=== PATIENT | female | born 1995 | race Caucasian/White ===

== ENCOUNTER 2023-05-07 14:18 | Outpatient (OUT) | payer BC, SELFPAY ==
--- NOTE | 2023-05-07 14:40 | US_ITS ---
The [address] [address] Patient Name: BRAULIO CHAKRABORTY MRN: [id number] date: 1995 Sex: F Assigned Patient Location: US Current Patient Location: US Accession/Order Number: [id number] Exam Date: 05/07/2023 14:40 Report Date: 05/07/2023 22:35 At the request of: JACKY FITZPATRICK Procedure: US OB transvaginal EXAMINATION: US OB transvaginal HISTORY: MISSED MENSES COMPARISON: No relevant comparison available. FINDINGS: GESTATIONAL SAC: Present and normal appearing. YOLK SAC: Present and normal appearing. POLE: Present and normal appearing. CARDIAC: Present. UTERUS: Normal size and appearance. OVARIES: Right: Not seen. Left: Normal. CERVIX: 3.7 cm in length and closed. CUL-DE-SAC: Normal. OTHER: None. AGE BY LMP: 8 weeks 0 days MARGARITO BY LMP: 12/17/2023 AGE BY US CRL: 7 weeks 2 days MARGARITO BY US CRL: 12/22/2023 US/US OB transvaginal IMPRESSION: 1. Single live intrauterine . Electronically authenticated by: ORION LAM Date: 05/07/2023 22:35
== END 2023-05-07 14:19 | disposition home or self-care (01) ==
LOC: US 14:18
PROVIDERS: PCP Family Medicine; Visit Provider Obstetrics & Gynecology
DX: Z34.01 Encounter for supervision of normal first pregnancy, first trimester (principal); Z3A.08 8 weeks gestation of pregnancy
CPT/HCPCS: 76817

== ENCOUNTER 2023-05-21 11:39 | Outpatient (OUT) | payer BC, SELFPAY ==
[2023-05-21 12:02] LABS: Basophils Absolute Auto 0.1 10^3/uL (0.0-0.1); Basophils Percent Auto 0.6 % (0.2-2.0); Eosinophils Absolute Auto 0.2 10^3/uL (0.0-0.7); Eosinophils Percent Auto 1.4 % (0.9-7.0); Immature Granulocytes Abs Auto 0.06 10^3/uL (0.00-0.03); Immature Granulocytes Pct Auto 0.4 % (0.0-0.5); Lymphocytes Percent Auto 28.2 % (20.5-60.0); Mean Corpuscular HGB Conc 34.2 g/dL (29.9-35.2); Mean Corpuscular Hemoglobin 30.2 pg (26.7-34.0); Mean Corpuscular Volume 88.4 fL (81.0-99.0); Mean Platelet Volume 8.8 fL (9.5-13.5); Monocytes Absolute Auto 0.7 10^3/uL (0.3-0.8); Monocytes Percent Auto 4.8 % (1.7-12.0); Neutrophils Absolute Auto 9.2 10^3/uL (1.4-6.5); Neutrophils Percent Auto 64.6 % (43.0-75.0); Platelet Count 439 10^3/uL (150-450); Red Cell Distribution Width 12.3 % (11.0-15.0); White Blood Count 14.2 10^3/uL (4.0-11.0)
[2023-05-21 12:24] LABS: Estimated Average Glucose 111 mg/dL; Glycohemoglobin A1C 5.5 % (4.5-6.2)
[2023-05-21 12:43] LABS: Thyroid Stimulating Hormone 4.123 uIU/mL (0.358-3.740)
[2023-05-22 05:07] LABS: HCV Ab Non Reactive (Non Reactive); HIV Ab/p24 Ag Screen Non Reactive (Non Reactive); Rubella Antibodies, IgG 2.21 index (Immune >0.99)
[2023-05-22 06:09] LABS: HBsAg Screen Negative (Negative)
[2023-05-22 11:09] LABS: Rapid Plasma Reagin, Quant Non Reactive titer (NonRea<1:1)
== END 2023-05-21 11:40 | disposition home or self-care (01) ==
LOC: LAB 11:41
PROVIDERS: PCP Family Medicine; Visit Provider Obstetrics & Gynecology
DX: Z34.81 Encounter for supervision of other normal pregnancy, first trimester (principal); N92.6 Irregular menstruation, unspecified
CPT/HCPCS: 36415; 83036; 84443; 85025; 86592; 86762; 86803; 86850; 86900; 86901; 87086; 87340; 87389

== ENCOUNTER 2023-06-18 10:52 | Outpatient (OUT) | payer BC, SELFPAY ==
[2023-06-18 13:27] LABS: Thyroid Stimulating Hormone 4.238 uIU/mL (0.358-3.740)
== END 2023-06-18 10:53 | disposition home or self-care (01) ==
LOC: LAB 10:53
PROVIDERS: PCP Family Medicine; Visit Provider Obstetrics & Gynecology
DX: R79.89 Other specified abnormal findings of blood chemistry (principal)
CPT/HCPCS: 36415; 84443

== ENCOUNTER 2023-07-02 15:03 | Emergency (ER) | payer BC, SELFPAY ==
--- OUTSIDE RECORDS SUMMARY | 2023-07-02 15:09 | XMS_ITS | CCD ---
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 Name Role Phone HOY, MORIAH Unavailable Unavailable HOY, MORIAH Unavailable Unavailable SELF, REFERRED Unavailable Unavailable HOY, MORIAH Unavailable Unavailable [facility], DR LIRA Primary Care Unavailable AMARI ., DR RICO Attending Unavailable AMARI ., DR RICO Consulting Unavailable AMARI ., DR RICO Admitting Unavailable Alfonzo Addison MD Primary Care Unavailable Azael LOPEZ, Alfonzo Sumner Attending Unavailable Azael LOPEZ, Alfonzo Sumner Primary Care Unavailable ABRIL ARTHUR Admitting Unavailable TRACY PA, ABRIL Sun Attending Unavailable Fransico PA, Cuong Whitman Admitting Unavaila melissa Bateman PA, Cuong Whitman Attending Unavaila Alfonzo Balbuena MD Primary Care Unavailable Alfonzo Addison MD Primary Care Unavailable DINORAH GILBERT Admitting Unavailable DINORAH GILBERT Attending Unavailable Alfonzo Addison MD Primary Care Unavailable Alfonzo Addison MD Attending Unavailable Azael LOPEZ, Alfonzo Sumner Primary Care Unavailable Alfonzo Addison MD Attending Unavailable Vitor Odom Attending Unavailable Alfonzo Addison MD Primary Care Unavailable Alfonzo Addison MD Attending Unavailable Alfonzo Addison MD Primary Care Unavailable Alfonzo Addison MD Primary Care Unavailable Alfonzo Addison MD Attending Unavailable JACKY FITZPATRICK Attending Unavailable Allergies Allergy Classification Reported Allergen(s) Allergy Type Date of Onset Reaction(s) Facility (2 sources) azithromycin Drug Allergy 0 [facility] Repository (3 sources) ketorolac; Translations: [Toradol] Drug Allergy 0 [facility] Repository (2 sources) traMADol Drug Allergy 0 [facility] Repository (1 source) Iodine (And Iodine Containting Drugs) Drug allergy (disorder) [address] [facility] Repository (1 source) Azithromycin; Translations: [azithromycin] Drug Allergy [facility] Repository (1 source) Contrast media; Translations: [Contrast Dye] Propensity to adverse reactions to drug (disorder) [facility] Repository (1 source) Ketorolac; Translations: [ketorolac] Drug Allergy [facility] Repository (1 source) traMADol; Translations: [traMADol] Drug Allergy [facility] Repository Problems Active Problems Problem Classification Problem Date Documented Da te Episodic/Chronic Joint disorders and dislocations; trauma-related (4 sources) Unspecified internal derangement of left knee; Translations: [UNSPECIFIED INTERNAL DERANGEMENT OF LEFT KNEE] Onset: 04-18-2017 Chronic Unclassified (2 sources) Unknown / UNK(Unknown) Onset: 04-18-2017 Past or Other Problems Problem Classification Problem Date Documented Da te Episodic/Chronic Other bone disease and musculoskeletal deformities (1 source) Chondromalacia, left knee; Translations: [CHONDROMALACIA, LEFT KNEE] Onset: 04-18-2017 Episodic Results Test Name Value Interpretation Reference Range Facil ity Outside Recordson 06-01-2023 Outside Records [id number]#1.[address] [place] [address] Rad - Ultrasound Reporton Rad - Ultrasound Report [id number]#1.[address] [place] [address] Coding Summaryon 05-01-2023 Coding Summary HTMLBase 64 RzvuejbnFLo6gNi+PGhlYW Q+LV1CCSPsS21ciTPmpK9d Q9LWYKpCHpyvMNYZACjSPz IzawYvNF1vvKXlWHPi IC8+JP6zDCUfUdyepHNgc6 H5jKF0D50gwy2aJXsivJY5 HWZsPqUmkhtza1ixwVi4XX cuNmluOyBt QXGeoE43RQO2yW05Na50zQ SgvFGyd1clxUd6IoLrESWt PCE8uWbcCPwxc0YdFAFiD9 3cxUDeg0G5 NGQhwLjivKThTiRvpER7cX 5dPSgtctndd5izmketKhx8 qu47uREog7J5bHN6A3Gbtr G3KYLmhRYd PcmrdEHPeP1edxvhg4xqnh rnGzYuBCFfBGn6TMr8NRGh gOquFmItAA36VDC7NPYykj IrF2EcUKEf pHayJnC0w6A7Xe8CB2PRUh haJ5GTAORMOAizkHO+PC90 vj57Q2ExMgwaMpx3THBkIQ J9fXJ9fV7z OOZkDTirt4C3qUT6E7Hptq Pymm7su8zzBBKdYTdkQ49l gRBfe3U3LDZanFT2FDOjcD jeYaNtsM67 Oyc+RHHatHyss2WqLpekt1 qbd7eslDj9JwalPNXxzcBw gXcpLMV9e3NvIo3cVRPxmU K3kJW2yM8g VyDuLgB7MOkuD737IpPolB RrJtlhP32pV2FjrZB+PHRy Awm8DLGeqPeeEC3qJ7PyKX RpbmctbGVm nEkxXX8uSOHiksytQKVzjW 6qEDBmR4o5PxXjRdP7NMss W8XnDDAordkyOz25jB0mCc LeKbG8VSko P4DbtqM8PTMixLJuJRrpNJ Q8G35fq0A9LBJvTBUkRYW2 rJN1yV8drWmaznwjuXRauR sgdmVydGlj YMesGVczW986EJMrnMrnDt NvZGluZyBEYXRlOiAgMTAv MjAvMjAyMzwvdGQ+PHRkIH U2qOmpQNYh vTKzYAntKq9nrFiapXeyKL 3qBVPjvwenZNDapF6sCUMi nKZcwBvaAX4wBVHeoumld3 52TqLqBQK2 FPNdwECiS3DmrJ5jAoQiWC BjYZGqJ1IrhNPgUXagN153 CFdwYcN9DMLesoAnE9WjDT FsaWduOiB0 r5W1Ql7En8WahwzzR5DrnH XhIzMeAjwmNPd0I4UgPzha dHI+VJ78JUFmYH73ZRb8FN W9vNxkLAee RAEsS6VqrV6zQbGiRTNeLP RkOyc+PHRhYmxlIHdpZHRo ERrtLMYbAqFlwWcbMM3lXu 9yZGVyLWNv sHkbcYZhZiMmn6abHMKfOA xhIP7yjPpbV9YdvKG9AVFv s4l8Oq36H64eF9AcmDP+PG SphVD7lIO7 mE7nCfOxKkK3EWxkF355Cw PvlWSaTlftt0fgm9cjqTe1 FgW9AIVmsvQidOizJRW6r1 ZiCo32J97i IHdpZHRoPSIxNSUiIHZhbG jyji5lpO5iTg6+PGNvbCB3 mEL5xV6rAnMpDsQ1CJjjD6 49InRvcCIv Motsw1nxx5nxuNd5AhMbOB BpxeTzuMhsXJN1s7AiGz03 E8WuwFgut9XgFzh1ur98aJ Mjo3S5eZQ1 S5VeAVZlnfryyFMdsPybIA 0oHDAcewswAPQmlG1wYJEz Q7d9XgTiKiM5GZqwS2Wqui F8MYKbrIRq FNXssFRUlS5ffcuhy7dkzy tyNoMzNWHxDEk9PUb5DOKt rGgeVcNiABG9OaP3OBT9sP QylI5ihSbj cbabkF2xJzq+WNX6xVJakC IVTJ8fTfmwuPY+PHRkIHN0 jDjxAHzmQESkcY2eKOVwE7 g7DiSmCaD0 LGpfJ1DaarV8LOVpaDOiMK UqvLRQwZ2cyefif4jnsrit RoZfTMXlMZi1WVm6LXLbtO duOiBsZWZ0 ZyA0QMJ9dLJvrP8sbPnbay ptjQ5mHfq+QmlydGggRGF0 ONr4W4ZoMtl6UKUwhKxpCV 0ncGFkZGlu Ge4hhEqafVydBG8fYPFpxo jzy130UvEmp9fjVHKruYAx JLsgEDU7A21uu6N8KFPpEL QeIDD6wQQ9 kE6csUjsdnqygEHklUioad BwjGrbMPhqSUpmM980XYOo cWlpRlJnEZr7B3TiJrx6ZW GliTvvXE9e qSIrNEunUp2ciWrtnPctEN 4dLREqeqveg320WjQns0kh YPCcrQAtNKncQHZ0F91uo3 R1QXKdQTYd NNO4uKN9wM2ozSvybgwgmC VmdDsgdmVydGljYWwtYWxp E497EILxmTvlDmMrrEp9L6 QqVzs4TBGr bNpuKE8dsWCtQKlyGn1daT eqwOytXY1lDDTbzutjc884 WhDty7tlSVEfcLFsVZpsBU T3J79cy8K8 UTIlFDMtHQO8uIU4bF8lyA lnbjogbGVmdDsgdmVydGlj HKztEWkjV210BDRivUhxHx BhdGllbnQg FNjsBZa4O8EeMexapEV+PC 22LQBbET48cGDodOCef9ht sYu3EsJhFJEcRTN6xNygLT xfz2FpLZAp I95fkUOra0D6RQKtpWxdpM DeIdXtxHZ7iV3mOQpcwrjs a2leusfuNkmju5rtnw30kO 07S93vNGoc ZHRoPSIzMCUiIHZhbGlnbj 9xyR4oXg9+IQNarCJ6lQM5 zX1zBPGvNbG1ENfrO720Yr RvcCIvPjxj x1oea5ouwLf7FyS2OMDzfo PhtPnpGKU1c2AzRx50G88i IHdpZHRoPSIyMCUiIHZhbG pduy3qdE1i Ii8+IGSteOI8zML5hE8aIx DsTkL6YDlaU847XdHokAGg RjumP74tO4MtpYP+PHRyPj j3CBMhkBle MF3udZUaXUqyJh1bQXM7Dw QiCiOmKEanE6MzFRAceprl ijxdkID8URUoRWQhmM00Rd 9udDogMTBw wGQDqE2htkamp4rqllqrWy DoVTXsOBz1KKs7VLHjrEts DaFnTDT2JhW7EEQ1vYIjqF 1hbGlnbjog qQ1iO1OoDXKetgclQt69eO 9eQpBnSjY9MGurTzb+V0lM G4zIYvfoHJFUH9XnXT8PFA 28KW69eCMw j0P9aLW9W4LcVBRbcfqyll alsOD8DPIoZORyiW98tLWl YBolWc5vz6I9l977MCSpCN JthC83Gp0n dRjmVPJrmKENbV3yaakuo0 txqyoxTlEtCWYaGOh4QCj6 FPShfSpwHuYwISU8BiV4HL Q0gOKyyM9i lXiyycpydQ0uXdx+MDMvMT AiQMu4VermlSQ+PHRkIHN0 qZbvYWrhHWMuuO7gEEOzC0 r7GyAtYmR8 MVhrN0WtIWGuvwafQc43aH 1lYcTbGdB7NIhgT5IivrP9 VSPruBTcUTubEAN1D56fo0 H3SQShSCRc JPV3aSJ3iC7odCxfrszclQ VmdDsgdmVydGljYWwtYWxp N331IKPuyRdvOlK6NBgfKF BvRU54KD30 bYUjr3K8jHS7Y6OwMCRzmb nlildnjPH1BUImGTZirZ83 iHQmDOkzFf5kc6G8w381AK AfKMBqsB73 Oe1blMeqBXRjoPERvY6ihu ayg0xhxhsgHxVyAQPgLWk1 XKt3EXOzvKumXeJfHNH0Ay I2DRM9gVEv xY2taRhgsasfwR6qQhv+Rk OKHNgLCS64OL54aUIop3V9 rSN0R1EoYFZimkfbvmjgcH P9YXLzCUQu dD05hTQfFLaoMq3ad5R3c9 89CVCnROHmhO30Cs9soJyk INFbkPYArK3rfxacm6nhwn ogIzAwMDAw YQf1LEq2XQMzwZbgLuQqTO L1LrP4XWC4yUYomW6tvZqj tbcycU3vCwd+N5O4D8PhSt wvdHI+PC90 QVTpTP73dJKnkSJio9nbgK r6LcWtDTLtOLP9dCpiLVcn s0BzWZLzH96sjLHhc3K8NT NvbGxhcHNl PeYdbVJ8bB9aDGxkitxxr7 qczwzoRvqvm6odtc98sX43 J19gLNrgTGLsTXVsDEZhVN GnhMmqno0d oT5vNo1+UBFdwDP6nEM4sJ 0zQoHmIgZ7MBxiA256MgIb yWKeOxduz5rfe0jorKs7Wx IwJSIgdmFs cCxvVCZ2s2EaCg21Q01pON dpZHRoPSIyMCUiIHZhbGln sh7avK3jCt9+KV0ek2chif 89sE54hHW+ FKJwPFH7vOfmTRckEEDmxX 4gZKemTnT3BNEwEeIjpG10 aRXqOIumUu9ojCpluQcyVO 4wNTBpbjtm j263BhPft2efATHieMVpSE blMFN3H42dk2Y5ORMfYDDm KWS2nJR9aC7mbSpqabtofX VmdDsgdmVy qIijGSsjBAuuK550WGZdkV vuGkKobTBhT2tjnfIQXU9c OjwvdGQ+TXGtXCV9fOmpIU opVIXysV0d EEWwY2l1DkNgSkL0UAkuO4 TzneG8WZWqtTQrPGVvbRBW oO0wwgamr2xvgbqoAhXtYE BgDJj2IAe7 UWPocIaiIzJdZMC9XqI5ZJ M3tIPncU4uuRmmticzjE5d Oyc+RklOOjwvdGQ+PHRkIH E1iSdjAIef ACBjeW8xRDYnS3p2RcVrGn O8VKdgG9JvidD8KNYjdWCc AWEorUWZpY1dxiclh1hpoq ogIzAwMDAw CQf3PHz5OHGtoEkpOnWpAA N6TyM3TMH0tOTwoO3qkWoz saeqpS4eDmi+TVJOOjwvdG Q+PHRkIHN0 tEcdLQpvWFOktU1rQZLhN9 e7MsOuBpE2CZsjA4KdhpD0 PDDsbMQpFVRtiVMWiV2hva vpo0narjfq FaFzZRMeWBq8RKm7PSUskU kjLxFmROY5YiS6UEU5cMOt iF8brRlclcykwO3vIpx+UG X1SLQ7VA91 KC93U6IqGnaidXMtdOX+PH RhYmxlIHdpZHRoPScxMDAl DbUwfBenUD0lZa3yYUGkOH NvbGxhcHNl OiB (more content not included)... [facility] Coding Summary HTMLBase 64 GfvserauTOp2uCp+PGhlYW Q+XL4QBVLrW05jaHHzuC0r W7DLZXtOCrdhQQCNAStLMm FaygUqDR5neFPhABNt IC8+CL1gUVZmSsrvoRAdt4 O9lDA3N95aaf8oGDlodRW9 DVXhZbJucyoyy6zobLe3WC cuNmluOyBt OQXiiC85YAW1kY85Sx12cH UdkFUgf5wgbKb5UyXdCSYn CFL3lXdrSYths5IgBMKqD0 0mfNYna6F2 MMDtrIdgzVIqVsDzvRU5fO 5hDOtkjcezb5laekewVnu0 ks21tMUxs0N2mFH0A6Hqhx Q9VDVvwMVh OynerFPDcG7ogthjd9drui tjSpBpCQBgAAz7CFy0GITn sYqlXaLsHG69FJF9IENbbn QoT7NxXPPa rUmyQyD5s2K9Nn1QH0IAYq cgL4ZQIIDIZVdzhZJ+PC90 dv12L8JuAlnkHqu6LCTuRZ V0tDF6sB9w DOXpETvnr1X6wPP7B9Rqht Knvh2ks0pqNIErAAfiU30c lQKfw5Q3TCNfzAI8ZDZyyG viIlJvlF66 Oyc+JOGbaPfrp3MwOboht9 hqn3efwDm2GnkmMMNjttLk xBukUZG4s3WsJp6dDHRkmF I9sBK7jU1w DrRnYeN0FNpeD082CzApfC JeNcbiN30kV6UsiDD+PHRy Qla3YJLjwWmnQM6cK6UxUR RpbmctbGVm pSsuEB9hRDIwwgnaMUJaaU 9wNNVuP7d7HeZtWnE8QEir U7SwLEKlwkwnAz89vP3hIh DuFxG6TZkd J7LyenC3TPHluXSqSPwnQG I0Z98lz9R5WUXiVNZbRVI5 xIY3uM3asBxldzgzwDUabN sgdmVydGlj WPrxZAnpF555YNItsOswIm NvZGluZyBEYXRlOiAgMTAv MjAvMjAyMzwvdGQ+PHRkIH H0lJczXYUh fQJuTZvkZe1buUotbYouCX 9gBFItjymzECPvnN3rEYSp nOFuiDvxHH1cQMBpdausc6 80FmIrHJQ7 PORktFNpP8AmqA7gVdHfKS DvGOBuO9KmgQJmRJrnD957 ZFvqEoM3UWOqhyQbY4EoQA FsaWduOiB0 c2T4Qo4Hf3FabuswQ1AhxE TyLoVyHtjtTCg2P0PeZuwz dHI+GT47JJRzJG67OGw3JC N4sWrlUZdp XTMmW4CsmM7cUhKpQLYvZT RkOyc+PHRhYmxlIHdpZHRo TGscWFHhVcXcmWgxGJ4sOe 9yZGVyLWNv iEiegUKvIjOwe2erVCXwIU qyEO4vzUnlO3BtfNE6CPDu o6t5Er35B63nB3ZrlWE+PG GbcIY8nBY2 bD2mPmYdNrW4NAglZ431Uy HjwXNiZlezr0gcm3shsCe9 BwV0UPDvipScjPbmLAD8q4 WnTb09Y30p IHdpZHRoPSIxNSUiIHZhbG agnu9arI8aKq3+PGNvbCB3 nQR2dX4mUpCiPjT8IKtsP3 49InRvcCIv Gjwaf8eol2uwrMt4LiYqPU UqdeVuzPsqILA4w8YiOj70 Q8HhlFssl7OoZty6bc65qH Aiv6B1vFF8 X3MuVLTvrleubUQfjUuyRI 1uJIThywttPHHzoK9qWWJw A3r9UbFrTvA5PDwkW5Isxc G9WGHhnBXo SSVoqMPIdH7gtmcjj8vfxp opIpHdYUIqUOf0FDn8JEIc yYrxJhAwKBD6TuZ8KQL8sE RmwQ7ftCgr ukjrdH9qVhr+QTH2fDLimR TLPT3cNafmiVH+PHRkIHN0 fIzlULmbYRCirK8oVSXiT5 h3KiBoVxH0 ERkfG4RwenF1HOGeuTQyMD GdmBPQvI7buione8uxxdyz VsDjFBAuGKq2DIp0KPJvgW duOiBsZWZ0 YcI3VEK4zNVmfT8fdZsgxh ejbM5aZpz+QmlydGggRGF0 YBh0J3MjMkg8YVZtsRwdXO 0ncGFkZGlu Aw6toSsrrDgvGI8dHUTjul qop560EuSdv4peZOCpxLMr MVtgNOD1E12qt6A8IDLbPT YeUWJ7dAT4 lK6pvVhqjggwuMLdcGgeby JovYahGVxfZXimZ430OEEe kJrlZwYoGSs2M5SjPkn2GM PcbZbwNO5e kWEhWFaqNx2stFjyiTzhDC 2yZKRxahaqe629FePhu3kk QBJhiPGsMByiECJ4Z03tb5 S4IFHxEGFz MBI6bQD3fM4jnSehhdmldB VmdDsgdmVydGljYWwtYWxp N754ATDqfTduFhIvoEl4F3 OwLpa4NRJf vPkvLI6jgDZuDPbmFy3mmM momMscAA2hBZWboewqj838 RqIoo1dmGZSssRGbNAhzCY H3R20zi6G0 LBIsPMPrPSI8zCQ2vC1kfI lnbjogbGVmdDsgdmVydGlj TOljSOlwX227RDIjkGmvZz BhdGllbnQg VLqsOWj7S3UwOzbdpHF+PC 03NOFgHS83vBRllMHni2fj pRa3SjVsHHAtEQL1mEuiDJ ynu4FdAPRo I56abARbm5J8GYAzpXoqpA VfViVqiWZ4kV7bGFruejnl n2qcsidnTrdzc7wcdm55oF 85X14eBKcw ZHRoPSIzMCUiIHZhbGlnbj 7nrG0jKt1+RFXglYE9dWF2 nK4jCVOvNnR2EFusI643Vq RvcCIvPjxj j7fjy0whcDa7VoU7FEPfsp EgxBqyHCA8j9ApBw64L37w IHdpZHRoPSIyMCUiIHZhbG czhq8oqS2o Ii8+UDLurQB8oOS8wL1sTc GqVdN2JFazG823AmHbeVKe FggxR74sW3AbwIU+PHRyPj n0SFMyxCmc RL0dwDXkTNhtYs4iKJC8Pl KeCdUbWJgdA7HaILLestxc ksfwqOI9SIDoACWsnT56Xi 9udDogMTBw oWPSmX6vumbwe0vszxgwCp WyJOAgSZg1VTk6QSTyoSol QwInYJQ9VfT9MJP1hHBosB 1hbGlnbjog vT9mI4RwECXbhultSp19gM 3qZbAvCpS6FOczBgi+V0lM D1jDKzqmXCKAJ9QaBE9WJD 58WG13hMJx g2M5eTQ9A5BrBRZvhiwzyk amoOV9XVSzZSOusI92vZPg AVaxSx0et3F2j329EDJtAA WrbJ02Hp0a cSpgLFGqeSKGbO0ehghch3 yuhkuuZpNoMSOpPDo2CLc4 XLWdgRqbBaWiXEH8GsL9BE U2mEImsG2a gSdykhcakI5dSma+MDMvMT XaMFu4OwzkgMP+PHRkIHN0 jXirLExePQTbxC7qCDFgO7 y8ZcQaEjN5 AHwqG0MxNPHgqldjVa74jD 0kYtAxYiH6CWdrK3SqwfQ3 XDJlgNBaXAadQSV2R75yw0 V6VLQkLRQi BNJ7fNQ9xH7yyUcytlqpjN VmdDsgdmVydGljYWwtYWxp W990HYYkrNyzCoH9PWggZR VmWP23JQ61 yQJvg6T5xVV4I6RpOLPacd bzkvcgtFU0SQKoJGXyyI03 jXJrMHwqEc6dw6F7v057PN NpIILpkW21 Ve8hoNwuWAUnwEYGsZ4lpn hwj3drzupiBcYlNZEuQKw6 WZh4CEEouBlyKmGfXEX0Pl P7MNN1iDNl sF3krGwhvovblN7jDsx+Rk VOYKlNVA68MM75aBOry1G2 yKQ8B8AhGEKnzpraykxxgI B3QIOuQIFl fS56iGLbNEpoDe4xx4A1s8 25EWYlNGXvhX90Ri1ydFpy EXLcxUBOpK5mtmkmn1suns ogIzAwMDAw DJj1XXm8BDZneAkmDqJsVH J5RjZ5HDO7mKErnY7jeBuc oulieH8cYrt+K2N1B5TjUw wvdHI+PC90 VXWiJW93iNMzxYPyt4afvO v6YwLsZEVyQCB0fOctEPov v5VxUXCbM92jmWKmo0E5ZO NvbGxhcHNl PiIfmNG5lX8fVFcsoefet6 wnilenPeqxd0egbt66lZ91 U59cRHjxUPTgWRNrZUWsVX NcyMzqdk3q sT9pJa4+ZQKwmCN7rIT2mT 4nVgEqEoR2ANqhB346FsBh pYVrSgbyr1eiu1nlyQm5Qj IwJSIgdmFs yPwuDCI9m0ImCy13S18bTZ dpZHRoPSIyMCUiIHZhbGln uv8hpS0iPk0+IQ7fd9dani 11lO50mXC+ UCVgBHT5rOdmXGeqZOGhaP 9vJFmcQuY0OMEtKtSuiI77 wWOgPEkyGw9zpMdtmPtiTT 4wNTBpbjtm u954EiCfu7puUPPkyTTnNQ tqMSF1Y74du5S0TEFyQUEk QKV0gKM5mK0bvNcmxtjfvW VmdDsgdmVy dUcxUTukALbfF795QCXexZ ddDoGnwYAuY3prczVYIC9w OjwvdGQ+MPPbRLL7cKukIF sjNHEziO6x IPCyU9q8HrPuUuO6AAohS6 HkbtK5AKQufVLbBIJjyOHU yB7kbwesk3cwdjnlSxRoVE RvMRk1ESp8 KDLyfImsGlJxEUL0MgI7WI V9vJAcyI9rcNgiqipzqA2m Oyc+RklOOjwvdGQ+PHRkIH H6pCdvXTbl WOApiJ6wAPBbW1c1YwWfZo I0BEnhB6KdksH0CZZiqPGm QHJmeIYZvO5opqfeu6milt ogIzAwMDAw XVg8FHq7KOJjyNcpYeQsED F8ZkZ1SJS2cNKznV5jvRkn ksllxT5hYqh+TVJOOjwvdG Q+PHRkIHN0 aFmwTYjnMNLgxT7bNKWcE1 c9PnDeZdC7AZhyM0UvvyF0 AXPgwFLiFPMksSIJxU3cvs whc0favbkp NdAbQKPiNKb4XEu6TOMjbB siIkAbVJZ0LcQ3XKL3nCXu mQ8tiTazmpshoP1gZti+UG I7BKI0HX83 VL69I9OcHyodpXPbkXK+PH RhYmxlIHdpZHRoPScxMDAl KrJyeHmjLO6dOa4eQDWzGO NvbGxhcHNl OiB (more content not included)... Normal [facility] Reminder Messageson 04-30-20 Reminder Messages - From: DINORAH GILBERT DO To: [facility] ([facility]); Sent: 04/30/2023 07:53:33 EDT ! Show up: 04/30/2023 07:53:33 EDT Subject: Results Follow Up Actions: Call the ordering provider with results Due Date/Time: 05/01/2023 07:53:00 EDT Reminder Comments: looks good. no problems Results: Date Result Type Result Name 04/29/2023 13:59 Radiology US Thyroid From: Sindy Cormier ([facility] [place] ([facility])) To: DINORAH GILBERT DO; Sent: 04/30/2023 10:55:59 EDT Show up: 04/30/2023 10:55:00 EDT Subject: RE: Results Follow Up notified patient, patient stated she recently found out she is and that explains some of her symptoms as she had issues during her first . 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 I will fax the US to [facility] for their records. From: DINORAH GILBERT DO To: [facility] ([facility]); Sent: 04/30/2023 11:51:41 EDT Show up: 04/30/2023 11:51:00 EDT Subject: RE: Results Follow Up noted Normal [facility] US Thyroidon 04-29-2023 US Thyroid CLINICAL HISTORY: History of nodules. COMPARISON: None available. TECHNIQUE: Ultrasound of the thyroid was performed with a regional survey. Reference: ACR Thyroid, Imaging Recording and Data System (TI-RADS): White paper of the ACR TI-RADS committee. Journal of the [place] [employer]: Volume 14, issue 5, November 26 pages 587-595. FINDINGS: The thyroid gland is borderline enlarged and mildly heterogeneous in echogenicity, with expected vascularity. A few scattered TR 1 cysts are present. The largest within the inferior left lobe measures approximately 7.3 x 5.6 x 3.8 mm. No FNA or ultrasound follow-up is suggested. The right lobe measures approximately 5.7 x 2.2 x 1.4 cm. The left thyroid lobe measures approximately 4.4 x 1.8 x 1.4 cm. The isthmus measures approximately 4 to 5 mm in thickness. IMPRESSION: Borderline enlarged heterogeneous thyroid. A few scattered TR 1 thyroid cysts. No FNA or longitudinal ultrasound is suggested. Final Signed (Electronic Signature): Percy Hopkins MD 04/29/23 1:59 pm Technologist: [facility] Coding Summaryon 01-10-2023 Coding Summary HTMLBase 64 QngjuwsuQMd2mTg+PGhlYW Q+CF6PXFUyR80uzTSawR1v Z4DVNVqGKlzmEQJNYJgAKn TcwdNvEK9ruOOzUYMl IC8+DU6sILMjXtwoqDVfc8 Q6iVS1H00xje7wRBilyRR9 ZFEgFiJwitxpy2ljzGb2YH cuNmluOyBt YNRytI29SGE1rW17Zu57dI VawDVah8reqEo3VyBzZTFl TIS3gIauSMerh7VyFIWfV3 2gqCEqx3L9 ABGbzNexhNUdWxRqkUH3rQ 9cWYdutnxoq7vrzsysMnc3 xm07fXUxb6J0tOK2V6Nnqx R4WAFtlDHj QwvloQYZyS8ehcwsm4tdvz qsCpWsXDDkUBs3ZGk8JGAc eLwtFoGwVF45DQJ0RFRroa ZxR5EjQXTy hXrtEkQ9h6K0Jx7NQ5OLCi xbK3IMOWQGJYuokIF+PC90 ac90C3FpIuweOff7FXKbRX V4gNO8sI6m RIYwGPhfh3G5pHU9D9Tton Uqlo3lf5scVGIuWDsnS78a eBLak0D1OSIynIY8FSBwaA ohVgBmuR06 Oyc+IIUhfWouz3HqChadg4 fek7ebwMr1JrnmQWMaphQo bIalGJP5f9KsRc5fLKCmcN F1oYN3tS1r WmOiZeU7NPbdM793KfFcjJ BfBqnnZ92aB9ByfHB+PHRy Eoa7IOWufZihRG7fV6AqKR RpbmctbGVm fHhnGJ0pJBHeplweTGMetK 5pESYkW4j6VdEmLsB7TPme E3KsDANffgjaEk93rD4jQj EtHxZ2NBfp E2JphdG9JQTmzFVlTUztJI Y1N44gt2V6AJSkMBLzJEH1 zNF1bZ1eyVyawowxjXBikW sgdmVydGlj CJsxLUtsI565PMHjeVidJv NvZGluZyBEYXRlOiAgMDcv MDEvMjAyMzwvdGQ+PHRkIH A7eCwqRLWj mHPbHXkyAc8mjSmklVbxUI 7kHKLrztxnSRAqlW0sKAVf pQCwpGofEY9vMYDayjpwu8 10BjVpPZC2 YOCeyRWvH9MbkM8aNqKeUB CtFEByC8FngYMaSTkoN323 SUekLoL1MBJwytPsN0BjKH FsaWduOiB0 x3G6Ss9Pi9XrxgrdA9SxwG SvXkBcQlbrKNl6A4YaWedy dHI+VE30DBOgJZ31GVu1VG M1wBauRJrb CKLsF0YajQ6iWyJzBUDwOB RkOyc+PHRhYmxlIHdpZHRo LCemYNPnFkHpbGhxCK9jUe 9yZGVyLWNv wNjinHCrGzMoj3evIZEmQV rhSR0owKrxF7WknRN6XCOn o2n1Km68R37yO5IrlMP+PG UocRW6gJJ0 xS9lNvTxHgR9AXdgP619Vo ValBOvIhqls7inl0ojaFf3 NwF6RRGxneItcIvtCVN2v5 MbHc86Z04u IHdpZHRoPSIxNSUiIHZhbG mqfl6rcX0eLt8+PGNvbCB3 mPV3fP9uXlKyRxK8IYnoE6 49InRvcCIv Wlhaq6cmq0ekeAw2MxSiIA LmdvXyiGikXAQ2o1HbYv02 P2NlqBfhu2MgJfe3vo59kA Ubu7L1zPE0 N9RoISYuqdevlMNerWnwTM 6yXZJtipigTALmsK6mKWPb I9c8AnSiXzE4OJuuZ4Bvwp Z8BXVduTUd IZKaoAJXgM0jyjgpp9cyws ogBuHkEEHtIOj2WCr4NOSx vLxhRiJwFXI9RtV4ITA0uF TqzU7acXws omuotI4jCjk+CVT7sDCdeK EAKI9jJjlmlAE+PHRkIHN0 fUnzANikMHRqqE9yMQCzR9 n6LnAoXvK0 EEkqE9GuhjT4EXRjuXLrHW KzsXZJjZ5nlwopi8ntghow JxAqBNPnIZq1PSo0TBClcI duOiBsZWZ0 XpL2KYO3kGZquA5tgQfusp ubqA0oFoj+QmlydGggRGF0 WKk3J6TaMeh3YPRazQrqOE 0ncGFkZGlu Nm2pkNdtdBmkFT2eSDSjjz ucm742ZaLwp0edVDUapJAx IGmjCVP3F99xz1I5TXEgJR ZzHJL8cXJ5 zL2gmAttfwygrJHyuQmeui LfjMoaMVwzSOuhX662ORKd oSncNlNnXIo9D9TbDjt0QG VvhYlcDS7o qUSfYXpnHm3kfNcteDqdIB 6gDYMotzhub658HmQbs4fn DSXdpAEsDUkaVTU9I06yi3 P0UQDdZJUk VFY9eMH6tJ9tqLdtsmlpzY VmdDsgdmVydGljYWwtYWxp A456EFQviYyeGvEkpEz7E6 BjZjr9ONEo uKnyWO1hkQSaPVozIf9aiD tkoRyqLN0aEKIhdusfa572 MmGxm9xzYUXzxQYhWXjhAL L8A60zm8U7 HADySRKyNJY9uMA1lX9fzX lnbjogbGVmdDsgdmVydGlj JFgrPWgpU837JLSnhNewVd BhdGllbnQg XPzvILi0L5OcStrijWS+PC 04MZZoXL82fRJtmHPch6ux uEe1NoAfTXVeIYY2sDuiPI mmd2FfAIEx T32obUAow8X8SSImfDtipA QxJxQreJZ0qR6wXIadezma p5nsyucjHieje2jung51qK 11Y97tYBiz ZHRoPSIzMCUiIHZhbGlnbj 9acM6fGr3+QPFfgFI4eTU1 zC3tTCMpUsJ7TLjfF743Ma RvcCIvPjxj i3kkh4ktzMe3HuR8WMGjlc ItkYxoZFT9u3IhLw57B05y IHdpZHRoPSIyMCUiIHZhbG xhoa9bjX9z Ii8+SEIwrCI2nHS3pN5bSy LiQyS5ZQcnV374SzXwcJFa CgoaB93rV9MouWC+PHRyPj u2WFJfiNcy OX3elWXzCSvjLc4zWUK7Gh UnOeJpPGtxN0MhVHTgvqyj jrgobOM1LORqFKPnfP48Ww 9udDogMTBw kKAYyT6dfzrbd3cuclwxAx BlFCOhJOo3XLz6FQPpxOfc NxAfWRP0BaB1WEO5qOJspY 1hbGlnbjog vP4lZ3NrWRWhjgczRh09pD 5vKaFhHfK0QFfnHzr+V0lM R5aVOxanGAKHM6IhVM1GDM 93AR78rCEe l3U1lND4A2YlOLHyhykbcm gdtCS1OWSqRAGneT60aRUa UOitVi4ci3B5d824BNGnBG TtuE34Hx4o eHxbNDGfmQOLvB5rhupyy0 doibqzRsLaWMOqVNy6NHc6 FSGcePvxUuVbFLK3NkL7XO R2mHFtsR4a fEezpczegY5zMel+MDMvMT EtLNe2CwbsoDK+PHRkIHN0 rLisBWhiTYNaoC5hYNGdF2 f2QoFmCvD4 EKwqN3SxTCQfcgqxJo54hO 9wWyKeLrP8TIwsH6RdvnL3 VJZwmUKxVJhrVCM9Q82gh3 Z4GGAhJUDe KTB7hXM5rI9crUqlrbdqgB VmdDsgdmVydGljYWwtYWxp R931JSRctMpuNgL3MZhlAF QbHK35GQ93 mRXhg2G7xMC5Z7PlTMWsnt zpqrwbfHP1VVGoJDMvdW93 hEDgVScvNo2lg5D2g438RD KqEWPnaJ04 Am1nrIyxSBSslKXAfK8zaf lja8wzmsrjWcRqZDYdMIh1 WIv5JOFryCbyHhPhUBD2Pl E6PIP6hJHj cD3qsUaliqbsbC3dXew+Rk AWUCgTBD61CD30tQZip9S4 jGI1I0CjJLZiuotfkbkkuC O0IHEuOTPy cK65gSFrASyeWq8qg1K0x2 36PIEjAZPxkA33Lj6qhTxs UUUwzJLZrR0bnehuq2zvxd ogIzAwMDAw LAl1ZKi0SKPzrSmbLjBaUK K0MxO7IHJ5yJYjtU8knJsn fxkabD8wCdr+X3I7Y7SeNt wvdHI+PC90 WGFkMA79pNUikYInm1kcbQ o3RjShKZVbZNI5yJuyVVst x8AtTZMkK93tjKQbg8X1DS NvbGxhcHNl FiSmjGI4xU0vEOqytrlun5 mlwlnfBhlai4gpoi72kH07 X19rYYvsYAWnCHJxGPKwJR JrsUyjwc5n hL4mOa4+LHQuwWY2yOH9tA 0lDnXzYoQ6YExsS369EsFq zZOjQfvnm1tix2stiIh6Vz IwJSIgdmFs eQegVXT7z8KlFn29Q35kCC dpZHRoPSIyMCUiIHZhbGln pd2xfZ2nQl1+PC9pu7gjid 10gM98mKH+ IIEsHIF5iEquUJenOGIcxH 5zOPreCvG7XPPuWyUkuZ83 dAAgPTlgOn9kuKsqdOdfUE 4wNTBpbjtm b589FgCtk3qbSXUvpDKwCX kmXUY4G59io6P6QMUyVVWg ZGL5pPT2aF8onAdjrtslwZ VmdDsgdmVy yAmzIYxqGTwcR336EICznV ylMuQlwXFvW1wkceNUBD8i OjwvdGQ+QQYvYWZ2pUowYX mfHQZeaN6m QAIzL1l8GyMdDuZ4BRyfI2 EpfqL9DZXnmVTeJPIenNPU cG2gmeudd0avgllaQoWjFQ UhIQn0MPf1 XZObuAyxKoIyXCL0BuR2GV I7nGNiuG4xyMrkofaziR7r Oyc+RklOOjwvdGQ+PHRkIH S4bXtaKFmq FDHufW3eXHDuV6e3DnZtPx V8LLoaQ2NufdN4UNDheAFo ZWZrbWTTdR2bsldng3kypb ogIzAwMDAw HOl2HBc9LWVkgWfqWxGoPL Z8SmS7LBR9fTKhpI6ydXrd uhrugJ8rFwn+TVJOOjwvdG Q+PHRkIHN0 hGaqXRalZBGqoU7mVIKnQ0 u7CdJdHiC7ARchB4BpbgH9 IZDuqXOwZUMfsLIUmR1mmz ybm4bigyil AbNoNKYnYHd8JBu7OJGjuB aaPzOuQCD5SfZ8JIO0yMSc bP3jlWacnwjowM8iTho+UG K9ITV0NQ14 CB15B4VoNqusnBVxrQB+PH RhYmxlIHdpZHRoPScxMDAl QjMopFlnVG0xLy0hYRNlBQ NvbGxhcHNl OiB (more content not included)... Normal [facility] ED Clinical Summaryon 2022 ED Clinical Summary [facility] ? Urgent Care [address] [place], [place] [id number] Clinical Summary PERSON INFORMATION Name: BRAULIO CHAKRABORTY Age: 27 Years Sex: FEMALE : 1995 MRN: Acct#: Visit Reason: UC - Eye Redness; BILATERAL EYE DRAINAGE Arrival: 01/05/2023 09:44:09 Discharge: 01/05/2023 10:25:00 LOS: 000 00:41 Check In: 01/05/2023 09:44:09 Checkout: 01/05/2023 10:25:00 Address: [address] [place] [address] [address] [facility] [id number] PCP: Azael LOPEZ, Alfonzo Sumner PROVIDER INFORMATION Provider Role Assigned Unassigned Kalpana Stover PEDIATRIC RADIOLOGIST Nurse 01/05/2023 09:53:37 Cuong Cárdenas ED PA 01/05/2023 09:55:23 VITALS INFORMATION Vital Sign Triage Latest Temperature Tympanic Temperature Temporal Artery Pulse Rate O2 Sat 96 % 96 % Respiratory Rate Blood Pressure /86 mmHg /86 mmHg MEDICAL INFORMATION Medications Given: Allergy Information: traMADol; Contrast Dye; Toradol; ketorolac; azithromycin PHYSICIAN DOCUMENTATION DISCHARGE INFORMATION: Discharge Disposition: Home Discharge Location: Home PATIENT EDUCATION INFORMATION Instructions: Hypertension, Adult; Bacterial Conjunctivitis, Adult Follow-Up: With: Address: When: Alfonzo Addison MD [address] [place] [address] Comments: Diagnosis is bilateral conjunctivitis, this is an eye infection that can be either viral or bacterial cause, also elevated blood pressure. We are starting you on antibiotic eyedrops, from history. As discussed it is imperative to have good hand hygiene. Make sure you wash your hands often, wash them before and after using eyedrops, as it can be contagious as we discussed. Treat both eyes. Follow-up with your own primary care provider in the next 3 to 5 days for reevaluation of your diagnoses, return to the emergency department or urgent care for worsening symptoms or concerns, eye pain, blurry vision, loss of vision, any questions may return anytime. DIAGNOSIS: 1:Bacterial conjunctivitis of both eyes; 2:Elevated blood pressure reading; Other specified bacterial agents as the cause of diseases classified elsewhere Patient Understands: Yes - Patient/family/caregiv er verbalizes understanding of instructions given Comment: Normal [facility] ED Patient Summaryon 023 ED Patient Summary [facility] ? Urgent Care [address] [place] [id number] PATIENT DISCHARGE INSTRUCTIONS Patient Information Name: BRAULIO CHAKRABORTY Age: 27 Years Date of : 1995 [facility]: [id number] Reason For Visit: UC - Eye Redness; BILATERAL EYE DRAINAGE Arrival Time: 01/05/2023 09:44:09 Primary Care Physician: Alfonzo Addison MD Attending Physician: Cuong Cárdenas Comment: Patient Education With: Address: When: Alfonzo Addison MD [address] [place], [place] [id number] Comments: Diagnosis is bilateral conjunctivitis, this is an eye infection that can be either viral or bacterial cause, also elevated blood pressure. We are starting you on antibiotic eyedrops, from history. As discussed it is imperative to have good hand hygiene. Make sure you wash your hands often, wash them before and after using eyedrops, as it can be contagious as we discussed. Treat both eyes. Follow-up with your own primary care provider in the next 3 to 5 days for reevaluation of your diagnoses, return to the emergency department or urgent care for worsening symptoms or concerns, eye pain, blurry vision, loss of vision, any questions may return anytime. Hypertension, Adult High blood pressure (hypertension) is when the force of blood pumping through the arteries is too strong. The arteries are the blood vessels that carry blood from the heart throughout the body. Hypertension forces the heart to work harder to pump blood and may cause arteries to become narrow or stiff. Untreated or uncontrolled hypertension can lead to a heart attack, heart failure, a stroke, kidney disease, and other problems. A blood pressure reading consists of a higher number over a lower number. Ideally, your blood pressure should be below 120/80. The first ( top ) number is called the systolic pressure. It is a measure of the pressure in your arteries as your heart beats. The second ( bottom ) number is called the diastolic pressure. It is a measure of the pressure in your arteries as the heart relaxes. What are the causes? The exact cause of this condition is not known. There are some conditions that result in high blood pressure. What increases the risk? Certain factors may make you more likely to develop high blood pressure. Some of these risk factors are under your control, including: ? Smoking. ? Not getting enough exercise or physical activity. ? Being overweight. ? Having too much fat, sugar, calories, or salt (sodium) in your diet. ? Drinking too much alcohol. Other risk factors include: ? Having a personal history of heart disease, diabetes, high cholesterol, or kidney disease. ? Stress. ? Having a family history of high blood pressure and high cholesterol. ? Having obstructive sleep apnea. ? Age. The risk increases with age. What are the signs or symptoms? High blood pressure may not cause symptoms. Very high blood pressure (hypertensive crisis) may cause: ? Headache. ? Fast or irregular heartbeats (palpitations). ? Shortness of breath. ? Nosebleed. ? Nausea and vomiting. ? Vision changes. ? Severe chest pain, dizziness, and seizures. How is this diagnosed? This condition is diagnosed by measuring your blood pressure while you are seated, with your arm resting on a flat surface, your legs uncrossed, and your feet flat on the floor. The cuff of the blood pressure monitor will be placed directly against the skin of your upper arm at the level of your heart. Blood pressure should be measured at least twice using the same arm. Certain conditions can cause a difference in blood pressure between your right and left arms. If you have a high blood pressure reading during one visit or you have normal blood pressure with other risk factors, you may be asked to: ? Return on a different day to have your blood pressure checked again. ? Monitor your blood pressure at home for 1 week or longer. If you are diagnosed with hypertension, you may have other blood or imaging tests to help your health care provider understand your overall risk for other conditions. How is this treated? This condition is treated by making healthy lifestyle changes, such as eating healthy foods, exercising more, and reducing your alcohol intake. You may be referred for counseling on a healthy diet and physical activity. Your health care provider may prescribe medicine if lifestyle changes are not enough to get your blood pressure under control and if: ? Your systolic blood pressure is above 130. ? Your diastolic blood pressure is above 80. Your personal target blood pressure may vary depending on your medical conditions, your age, and other factors. Follow these instructions at home: Eating and drinking ? Eat a diet that is high in fiber and potassium, and low in sodium, added sugar, and fat. An example of this eating plan is called the DASH diet. TENORIO (more content not included)... Normal [facility] [place] 023 Urgent Care Record [facility] ? Urgent Care [address] [place] [address] PATIENT DISCHARGE INSTRUCTIONS Patient Information Name: BRAULIO CHAKRABORTY Age: 27 Years Date of : 1995 [facility]: [id number] Reason For Visit: UC - Eye Redness; BILATERAL EYE DRAINAGE Arrival Time: 01/05/2023 09:44:09 Primary Care Physician: Alfonzo Addison MD Attending Physician: Cuogn Cárdenas Comment: Visit Diagnosis: Diagnoses This Visit Bacterial conjunctivitis of both eyes (H10.9) Elevated blood pressure reading (R03.0) Other specified bacterial agents as the cause of diseases classified elsewhere (B96.89) UC - Eye Redness ([id number]) If you received any narcotics, sedation, or any other medication that causes drowsiness for the next 24 hours, unless otherwise directed: ? Do not drive a car. ? Do not operate machinery such as power tools, lawn mowers, drills, sewing machines, or stoves ? Avoid alcoholic beverages and drugs for allergies, nerves, or sleep ? Do not make important personal or business decisions or sign any legal documents With: Address: When: Azael LOPEZ, Alfonzo Sumner [address] [place], [place] [id number] Comments: Diagnosis is bilateral conjunctivitis, this is an eye infection that can be either viral or bacterial cause, also elevated blood pressure. We are starting you on antibiotic eyedrops, from history. As discussed it is imperative to have good hand hygiene. Make sure you wash your hands often, wash them before and after using eyedrops, as it can be contagious as we discussed. Treat both eyes. Follow-up with your own primary care provider in the next 3 to 5 days for reevaluation of your diagnoses, return to the emergency department or urgent care for worsening symptoms or concerns, eye pain, blurry vision, loss of vision, any questions may return anytime. Medication Information: The exam and treatment you received today in the [facility] were for an urgent problem and are not intended as complete care. It is important for you to follow up with a doctor, nurse practitioner, or physician?s assistant oceanographer for ongoing care. If your symptoms become worse or you do not improve as expected and you are unable to reach your usual health care provider, you should return to the Emergency Department, we are available 24 hours a day. For those patients who have received Radiology results, the interpretation of your X-ray as given to you by our Urgent Care physician is only a preliminary report. The Radiologist will review your films and if there is a change in the diagnosis you will be notified by phone. Please make sure you have provided a working phone number so we can reach you if necessary. In the event that you had a lab culture while you were a patient in the Urgent Care, you will be notified by phone if there is a need to change your antibiotic. Please make sure you have provided a working phone number so we can reach you if necessary. [facility] has provided you with a complete list of medications post discharge. Please inform your elevator installer/provider of your visit and for further instruction on these medications. Any specific questions regarding your chronic medications and dosages should be discussed with your primary care physician(s) and/or pharmacist. New Medications [facility], [address] [place], [place] [id number], [phone] ciprofloxacin ophthalmic (ciprofloxacin 0.3% ophthalmic solution) 2 Drops Ophthalmic Every 4 hours for 10 Days. Treat both eyes. Refills: 0. Additional medications on your home medication list not specifically addressed. Please contact the ordering physician if you have questions about these medications. albuterol (Ventolin HFA 90 mcg/inh inhalation aerosol) 2 puff(s) Inhalation every 4 hours as needed for wheezing. Refills: 11. escitalopram (escitalopram 5 mg oral tablet) 1 tab(s) Oral every day. Refills: 3. labetalol (labetalol 200 mg oral tablet) 1 tab(s) Oral 2 times a day. Refills: 3. metFORMIN (metFORMIN 500 mg oral tablet) 1 tab(s) Oral 2 times a day. Refills: 1. omeprazole (omeprazole 40 mg oral delayed release capsule) 1 cap(s) Oral every day. Refills: 3. phentermine (phentermine 37.5 mg oral capsule) 1 cap(s) Oral every day. Visit Information Allergies: Substance Reaction Symptoms Type Comments azithromycin Drug Contrast Dye Drug ketorolac Drug Toradol Drug traMADol Drug Vital Signs: Vitals and Measurements this Visit (last charted value for your 01/05/2023 visit) Vital Signs This Visit Temperature Temporal: 36.5 DegC Peripheral Pulse Rate: 82 bpm Respiratory Rate: 16 br/min Systolic Blood Pressure: 136 mmHg Diastolic Blood Pressure: 86 mmHg SpO2: 96 % Oxygen Therapy: Room air Blood Pressure Method: Manual Measurements This Visit Height/Length Measured: 170.18 cm Weight Measured: 122.47 kg B (more content not included)... Normal [facility] Coding Summaryon 09-15-2022 Coding Summary HTMLBase 64 UnhloicjZQx8gNa+PGhlYW Q+UP9YTCKnH21eaCWbkF0Z D8fJCP5VJIWGZBAXIU6ILS 5cuNQ5BIiuG6YpttIa AavtpYOvEW29ADh9YOI4oN wjPHqwdZ5bsDFxE5p9QjEs FG90tH71RNfzIXLhTbS1Ni ZpbjsgbWFy L8axNzXjcELeHwp+PHRhYm xlIHdpZHRoPScxMDAlJyBz eHsxGC9xGq0jVCWqNBWnvC xhcHNlOiBj t3rpUONaGVxjQW1ufNkzR6 WrvNZ5XXMuz7m2Xw59tPC+ RNNcIOL5kDnvHCnwj695Mx Cea7rkOUH1 vONdPYoiLOV0N45zp9S0RX PvGVMxOPH3tRN5wQ7uuKkg oiygI6YdcJPtGmK3BON7wJ RhqW7iiHbf klxmsL9tUsc+H98GVT6GRD SEAS9MOrx2E1PtQucwcGF+ ZD11CJUoIV93gLFjtGYnt9 mrfMh7DjIm IBXxVIW5gMkhJOffe9QfZJ LuI55lfRKjm9O6EGUsiIdd aALlJoMjdPT1eQ9tRUcajk hhp0apqshh Yqhbe9kutb99pJ72A47bUP imIKCyEPA9QLSvDEMouWqa co6pkD6lHe4+BIdbb5npw0 exjAa1DtOk GEXrqgFqvXyvINF4s5WkBd 26T3LbiHlig8HeJlq9uk78 lLKlz2J7xMO7QXjmUBAuyH 5kTTbtZqK1 LJOnSsAivJ91xIAaGEpnOl 8idIqpdMzlAR4cXREaelzl BMXcwE2iHHCcjBIotLogLU 4wNTBpbjtm l317PmHuQDB8VQMlnIWcR5 KvdG3bJvVtNGSpZLWqP9Rh kKCiTYojA308PNkkMmM1DL TnzeIaA2Rj XBZufNlyYlJ4e7Z2Jr2Ok6 LeqabeCMR0TZuvUZRhMwV4 VlGqApE6N1YoFmu7XAWvfJ nzKB6fD3Kd EJToqufevucnvCU4AITmFA EdbM10sSMvUIouHw7ym0W9 e336FVDdCLZohD98Oi6iiW ogMTBwdCBU jM3estspd6ilajhdTeWfWI XdRZe3XLh2UQKrcVnsScQc KJN7YhA6NYR4hFNexT0ggU abpddagY6u Oyc+F46neZ4dPLW6LRA0pk jnXFUfznElSP83ZI38U4Nq PjwvdGFibGU+PGRpdiBzdH cvSZ3aIcFc z2zbp3GbUYwnC2TzSHAsLE gmXgn5XHArHEL4xIT2kN9m ADFhFZumt5H0eQY0B5Weaz Kvmw6wo5pn WRPwSDeuR47vgRGpd1E2TV TvyDL4KSFpfKcmSqJrqT18 Oyc+NRLkbCdoe6FdJdpzq1 fol3gqnHh7 BdQaRCMbxsNdkKdyEKY6s0 DgCr11M88vNTrjKTMzVCUo NXWjOGHxpEtult6vxA9qGw 8+PGNvbCB3 mBV6aT7xGFIuOuD1OCyeB2 42GrOeiOSgUxutc6abh7ts xCr1ZyHoAYHuslPpsUzuCR S9y1SwQq51 W18kXDucDPMwWVJlTKSaIX FpgOhflm0rxN9qDc1+PC9j a6tbrk69aP79uFL+PHRkIH X5wZtxUWyf NMFwcJ3eCFdmOwQ5ZPAbLw QpzQ88tEPdLLhfMx0qxVwj eYrtWX1wGYNwniooy843Zf Xlt9ykKRJe aYCjYTgkOQQ3V75qx7P0TC ZcYOExGVL9zSK3pI6ujDzz bjogbGVmdDsgdmVydGljYW utJJjfN990 IHRvcDsnPlBhdGllbnQgTm VsDPd5J3LbVoy9TEUxiIrx OH3mwYAtYRhgNi9ztAqxgO esXR5gDIKa zdxqi009HhJcy4jjODTdfL LbQVvdBDW2I20wt4A8TQSf MFKhUZJ8uBT8gU9ohAsxsh ogbGVmdDsg jbQgkExvXGxgTOpnN552QL RvcDsnPkJpcnRoIERhdGU6 WI26AH00qIDdh1Z3bGN5B4 BhZGRpbmct fpkvdCS4UVNxBIWjsJ17Hy 0foFeaJm3wDQWoERC7LVQu dDOdT6UseN3wWoRlUMVdEF DoH5PbzPBo WXoxT666IHtoMhU4NQDvix TmQ9XfVBErtVhrAsA2m5W1 Jr0RA4O3CA86MK75qHRsp4 N1rZQ1X8Ol HEDvrfqpnjuhxYG6ECAoJZ DiqU49Ak1tqIwnVt9nYPMu SQI4EIEanZUaI6EojB5nVe AjMDAwMDAw Q1YcwSOfLAxdF675KIvyFu P5UFSrfkBxW4SoRWTynGnw CoL8e0T7In9SLZz1LA68IU 63nTDxe6H3 zAX4K2VqKQGimaqesngxjZ L8MKEjOXIepY98Kh6epJwm Fa9pJOBnJKZ9BURkuGMkD2 FtmD4mBkPn AZVfHGVkA3WmmTCpQIfdS9 86BMlsKlW9ISAiezFlI8Pr BZOlpIaeOvU0o7R2Pz8MUT UqKD62RFR5 gVC9MM24UI57X3GhDyxmiE FibGU+PHRhYmxlIHdpZHRo AHgkTSAgQfLulVcqOJ1iPj 9yZGVyLWNv zIxqrEIgNmFky3viIPPiEG fpHP6kiPuqO2DloVF3HTTq j5i9Cb37M56gX1EskXR+PG ZwxRN8vGM3 hJ1oQxXwVzO9DDgjX175Ov VuwMJnKsixw9hxr7vddTf2 PbB2KMXcgnEeeSbxJAL2s3 IkFm59N47p IHdpZHRoPSIxNSUiIHZhbG hnqh5izK0rQo2+PGNvbCB3 xTG1cB1jRlOtRrX3QIsdX8 49InRvcCIv Iptwu9lhq0dkqTj6LzYqNC ZfosDroScbRPK5z0UiJr19 B2SvoBmme3PjSma3um06xA Lmg8I9aSP7 W6BuWIAbmdrxbIGumJjpCV 9gUPYvcwbjHWDdcD6pVAPg T6q9RrHkXaT8EBshH3Gjed V2NZIvyIKw QXpgTLK4I36zk2Q0CUPqYB TcKXD0bZN6hG1qvUkgevxr bGVmdDsgdmVydGljYWwtYW ctQ106UAFw uOtkGRTxvB9fQDTwjMSfqO vaCP0kOGXivowqSldYWNsT TlMsIFBBSUdFIEFOTjwvdG Q+PHRkIHN0 lBpuYNjxEPJwoY3pAXCnE0 x6KtMkInA3WVceV1UvCDGc vrzxRz00fA5uXvWhAbO8RN hwW5GwbsS8 WHGciFUbCFrmMXY5X36ty8 Z4VCMeIGCzTHX0uCF2rA5i bGlnbjogbGVmdDsgdmVydG ljYWwtYWxp W739QJYhgBexEnDzBsMvQr R0QQz0R7OoMhk2QVWtsZdd KI0skZLbUEteEf7rjFpuaE trZI9eJVSe zouoUHSglU9dSMHviJLwsY pfWO0uQXZxapzbk894KlOu OPY8GRYtlPWiZ7VbdK3bVh AjMDAwMDAw A1DuiQGuCWevJ394XAryJg H3XXDkgxPbM4MnWCMviHwv AuR2k9R1Qp3jUYSHOWCncl wvdGQ+PHRk AFI0bQngVCerRPGwuQ3gFS ZpP0l1ViUgGoL8HDjtC1Dm BKIwxmnpHl21fK7pUiSuGx W1CCrwJ2Ml bbI2WLAmhFAgUNrfQFE1R6 0is5V5RXFoYSQoVCE7vQJ2 vC1zwUwqcjvqkTUazRwxeg VydGljYWwt WXbuQ739CBTruPxeWeDWMB FMRTwvdGQ+HEYnWEP7aCrn HQyoWJXdhR1zERPyZ5m5Jt ZtRfS3CMpp O5YhDIBjsojpKq44zJ0gLa DiZjW9SKuvV1StpeH9IYQy tQOpPYfmZTC9J22qr1J6ZZ MwMDAwMDA7 lNW2zT1rjIefvlpyxELrpJ jcloDcuHccLAkqXQyfY214 PTZcxTsbYy3SHB38NJ78F3 RyPjwvdGFi bGU+PHRhYmxlIHdpZHRoPS cwUGQdEgRgxLdaXO8zFm5x ZGVyLWNvbGxhcHNlOiBjb2 xsYXBzZTsg SF7ylUufL7JjwJK8XWFlo4 i0Hx04O17bA9YllFD+PGNv nTW7kGN2oV5eRgLyCaF5JD rqV197VuJl yXDjEssts4ukd0txoLw9Di RsJPPropSphJkdBRA5g7Rm Fn30E61hJCmbVQSaNFZpJJ UiIHZhbGln yq9elA9lCy6+OFDtmPY1dS R6wI4zOaQrLzW4UIwuN516 TtQnoLSmYdypY05aO4FyrY A+PHRyPjx0 BVWmyRsjLO7gpICmFMugLn 6jTQS9YmPcIsPtJYckO3Hc PGEeuuidfozmpYX8PEIvYM RtkG40Iq0q rYnySl8kUEYrUUR1XRPnhI NsI5ZgdA5eJiXiBPMhIQFs E6HlzSIvTHpmY514ITeoHc H8RXAxokOv Z9LvUSIvoGebXvB5z7Z4Ji 2TnSlyoJSwUG7gNoPmQWo9 L3PaUkd6VVOgfJayBV1dvF TjERecJf5n nOeweDraVU9uRBZbwzejg9 63GfAmy1kdECRomQYkSXqf WFJ6I62on9V9WUWrDQWrZR C0wSD9lE6s bGlnbjogbGVmdDsgdmVydG pgSAjzUYbhG960VOVgkWjz VdREYkx0O4VeWxy3KVHxbN neZW6mzCNd LDgoUb9xdUspvCyaPJ4vZJ Ubqgfgw351VxIfl8rnXSTf wBDkBAajQJR1T41nj6U9OS MwMDAwMDA7 kAV7sS8stIwsaesmnJAneF ljgxCwlIvzCYbkMPynL171 JSAvlHjsVg9TFaa5O1QgMi l1RXAjlZew RA4jsJZxZSozNa2cjVokhB zlWA8oBXIeswctn258DjMk x9deGYYbsYIuEJpuLSM1B6 1pe7Y1GBYr VXXdQYT7xFE7fU5faJtspz ogbGVmdDsgdmVydGljYWwt SSzrZ051EBZvxMguUaGcnC VyOjwvdGQ+ AQ31hl48V8DoYtbeWii2IL IvVJW0fDC0zF4mAYLmHQey r8D5uPV4U3PshdLeir3yn7 xsYXBzZTog Y29 (more content not included)... Normal [facility] .QC SARS-CoV-2 (COVID-19)/Fl u/RSV (GeneXpert)on 09-08-2022 Internal Control Pass Normal [facility] Comment on above: Order Comment: Order ed by Discern.[[email or web address]] Performed By: #### 7 [id number] ####[facility] (DEFAULT)[address] [place] [address] COVID/Flu/RSV (GeneXpert)on 09-08-2022 Flu A (GXpert COVFLURSV) Negative Normal Negative [facility] Comment on above: Performed By: #### 7 [id number] ####[facility] (DEFAULT)[address] [place] [address] Flu B (GXpert COVFLURSV) Negative Normal Negative [facility] Comment on above: Performed By: #### 7 [id number] ####[facility] (DEFAULT)[address] [place] [address] RSV (GXpert COVFLURSV) Negative Normal Negative [facility] Comment on above: Performed By: #### 7 [id number] ####[facility] (DEFAULT)[address] [place] [address] SARS-CoV-2 (COVID-19) RNA KALE+probe Ql (Unsp spec) Negative Normal Negative [facility] Comment on above: Result Comment: Perf ormed by PCR methodology. Performed By: #### 7 [id number] ####[facility] (DEFAULT)[address] [place] [address] ED Clinical Summaryon 2022 ED Clinical Summary [facility] ? Urgent Care [address] [place] [address] Clinical Summary PERSON INFORMATION Name: BRAULIO CHAKRABORTY Age: 26 Years Sex: FEMALE : 1995 MRN: Acct#: Visit Reason: UC - Sinus Pain or Congestion; UC - Cough; COUGH, CONGESTION Arrival: 09/08/2022 13:55:11 Discharge: 09/08/2022 15:23:00 LOS: 000 01:28 Check In: 09/08/2022 13:55:11 Checkout: 09/08/2022 15:23:00 Address: [address] [place] [address] PCP: Alfonzo Addison MD PROVIDER INFORMATION Provider Role Assigned Unassigned ABRIL ARTHUR ED PA 09/08/2022 13:58:09 Dakota Crenshaw PEDIATRIC RADIOLOGIST Nurse 09/08/2022 14:02:32 VITALS INFORMATION Vital Sign Triage Latest Temperature Tympanic Temperature Temporal Artery Pulse Rate O2 Sat 98 % 98 % Respiratory Rate Blood Pressure /99 mmHg /99 mmHg MEDICAL INFORMATION Medications Given: Allergy Information: traMADol; Contrast Dye; Toradol; ketorolac; azithromycin PHYSICIAN DOCUMENTATION DISCHARGE INFORMATION: Discharge Disposition: Home Discharge Location: Home PATIENT EDUCATION INFORMATION Instructions: Community-Acquired Pneumonia, Adult, Ggff-ba-Haou; Hypertension, Adult; DASH Eating Plan Follow-Up: With: Address: When: Alfonzo Addison [address] [place] [address] Business (1) Within 3 to 5 days Comments: Follow-up primary care provider for reevaluation next few days. Continue with supportive care plenty of rest and fluids, antibiotics and probiotics as discussed. Return to the emergency department for any worsening issues such as high spiking fevers, trouble breathing, or any other problems. DIAGNOSIS: Elevated blood pressure reading; Pneumonia Patient Understands: Yes - Patient/family/caregiv er verbalizes understanding of instructions given Comment: [facility] ED Note - Physicianon 2022 ED Note - Physician Patient: BRAULIO CHAKRABORTY Age: 26 years Sex: FEMALE : 1995 Associated Diagnoses: Pneumonia; Elevated blood pressure reading Author: ABRIL ARTHUR Subjective Patient is 26-year-old female presenting to urgent care with complaint of congestion, cough, nasal congestion starting yesterday. She states that the cough has progressively gotten worse yesterday and today. She denies having a fever but states that she felt like she was warm. She denies any vomiting, diarrhea, abdominal pain, chest pains. States that she is concerned about infection secondary to having a baby at home with a trach. Health Status Allergies: Allergic Reactions (Selected) Severity Not Documented Azithromycin- No reactions were documented. Contrast Dye- No reactions were documented. Ketorolac- No reactions were documented. Toradol- No reactions were documented. TraMADol- No reactions were documented. 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 -Acute distress: No -Vitals: reviewed. SKIN: -Gross abnormalities: No EYES: -EOM intact, LANNY: -Sclera conjunctiva: Unremarkable. ENT: - Normal pharynx pink and moist. NECK: -Supple (crjc-cy-kchou): non-tender. CARD: -Rate and rhythm: Regular RESP: -Respiratory effort and chest excursion with respirations: Normal -Breath sounds equal bilaterally: Clear -Wheezes: No -Rales: No BACK: -Signs of pain with movement: No ABD: -Distended: No -Bruits: No -Bowel sounds: Normal. -Deep palpation: Non-tender, soft, no guarding or rebound tenderness EXT: Gross appearance and use of all four extremities: Unremarkable NEURO: -Patient: alert -Gross CN or Focal Neuro deficits: No -Oriented to: person, place and time. -Appearance and judgment: appropriate. Results Review Results review Lab results 09/08/2022 14:17 EST SARS-CoV-2(Covid19)PCR (GXpert COVFLURSV) Negative Flu A (GXpert COVFLURSV) Negative Flu B (GXpert COVFLURSV) Negative RSV (GXpert COVFLURSV) Negative Impression and Plan Assessment and Plan: Diagnosis: Pneumonia (WXM04-VB J18.9), Elevated blood pressure reading (WMZ31-HH R03.0). Orders Orders Laboratory: SARS-CoV-2 (COVID-19)/Flu/RSV (GeneXpert) (Order): Nasopharyngeal Swab, 09/08/2022 14:16 EST, Stat collect, Nurse collect Radiology: XR Chest 2 Views (Order): 09/08/2022 14:17 EST Stat, cough, Allow Modification Per Radiologist, Transport Mode: Cart. Orders Pharmacy: Ventolin HFA 90 mcg/inh inhalation aerosol (Prescribe): 1 puff(s), INH, q6hr, PRN: for wheezing, 18 gm, 0 Refill(s) Acidophilus Extra Strength oral capsule (Prescribe): 1 cap(s), PO, Daily, 14 cap(s), 0 Refill(s) doxycycline hyclate 100 mg oral capsule (Prescribe): 100 mg, PO, BID, for 7 day(s), Take with food, may make you sensitive to the sun, 14 cap(s), 0 Refill(s). Orders Pharmacy: amoxicillin 500 mg oral capsule (Prescribe): 1,000 mg = 2 cap(s), PO, q12hr, 28 cap(s), 0 Refill(s). . COVID and influenza RSV swabs are negative, chest x-ray does show a patchy infiltrate in the right lung. Secondary to this along with patient's increasing cough indicated we will give her antibiotic treat her for early pneumonia indicated I would give her doxycycline along with amoxicillin. Patient was also given a prescription for probiotic. Told to continue with this follow-up follow-up closely with primary care provider return for any worsening issues. Patient indicated she understood was in agreement. Patient is stable and will be discharged [Electronically Signed on: 09/08/2022 15:44 EST] ABRIL ARTHUR [Verified on: 09/08/2022 15:44 EST] ABRIL ARTHUR Normal [facility] ED Patient Summaryon 023 ED Patient Summary [facility] ? Urgent Care [address] [place] [address] PATIENT DISCHARGE INSTRUCTIONS Patient Information Name: BRAULIO CHAKRABORTY Age: 26 Years Date of : 1995 Reason For Visit: UC - Sinus Pain or Congestion; UC - Cough; COUGH, CONGESTION Arrival Time: 09/08/2022 13:55:11 Primary Care Physician: Alfonzo Addison MD Attending Physician: ABRIL ARTHUR Comment: Patient Education With: Address: When: Alfonzo Addison [address] [place] [address] Business (1) Within 3 to 5 days Comments: Follow-up primary care provider for reevaluation next few days. Continue with supportive care plenty of rest and fluids, antibiotics and probiotics as discussed. Return to the emergency department for any worsening issues such as high spiking fevers, trouble breathing, or any other problems. Community-Acquired Pneumonia, Adult Pneumonia is an infection of the lungs. It causes irritation and swelling in the airways of the lungs. Mucus and fluid may also build up inside the airways. This may cause coughing and trouble breathing. One type of pneumonia can happen while you are in a hospital. A different type can happen when you are not in a hospital (community-acquired pneumonia). What are the causes? This condition is caused by germs (viruses, bacteria, or fungi). Some types of germs can spread from person to person. Pneumonia is not thought to spread from person to person. What increases the risk? You are more likely to develop this condition if: ? You have a long-term (chronic) disease, such as: ? Disease of the lungs. This may be chronic obstructive pulmonary disease (COPD) or asthma. ? Heart failure. ? Cystic fibrosis. ? Diabetes. ? Kidney disease. ? Sickle cell disease. ? HIV. ? You have other health problems, such as: ? Your body's defense system (immune system) is weak. ? A condition that may cause you to breathe in fluids from your mouth and nose. ? You had your spleen taken out. ? You do not take good care of your teeth and mouth (poor dental hygiene). ? You use or have used tobacco products. ? You travel where the germs that cause this illness are common. ? You are near certain animals or the places they live. ? You are older than 65 years of age. What are the signs or symptoms? Symptoms of this condition include: ? A cough. ? A fever. ? Sweating or chills. ? Chest pain, often when you breathe deeply or cough. ? Breathing problems, such as: ? Fast breathing. ? Trouble breathing. ? Shortness of breath. ? Feeling tired (fatigued). ? Muscle aches. How is this treated? Treatment for this condition depends on many things, such as: ? The cause of your illness. ? Your medicines. ? Your other health problems. Most adults can be treated at home. Sometimes, treatment must happen in a hospital. ? Treatment may include medicines to kill germs. ? Medicines may depend on which germ caused your illness. Very bad pneumonia is rare. If you get it, you may: ? Have a machine to help you breathe. ? Have fluid taken away from around your lungs. Follow these instructions at home: Medicines ? Take oigy-aau-xwuonoz and prescription medicines only as told by your doctor. ? Take cough medicine only if you are losing sleep. Cough medicine can keep your body from taking mucus away from your lungs. ? If you were prescribed an antibiotic medicine, take it as told by your doctor. Do not stop taking the antibiotic even if you start to feel better. Lifestyle ? Do not drink alcohol. ? Do not use any products that contain nicotine or tobacco, such as cigarettes, e-cigarettes, and chewing tobacco. If you need help quitting, ask your doctor. ? Eat a healthy diet. This includes a lot of vegetables, fruits, whole grains, low-fat dairy products, and low-fat (lean) protein. General instructions ? Rest a lot. Sleep for at least 8 hours each night. ? Sleep with your head and neck raised. Put a few pillows under your head or sleep in a reclining chair. ? Return to your normal activities as told by your doctor. Ask your doctor what activities are safe for you. ? Drink enough fluid to keep your pee (urine) pale yellow. ? If your throat is sore, rinse your mouth often with salt water. To make salt water, dissolve ??1 tsp (3?6 g) of salt in 1 cup (237 mL) of warm water. ? Keep all follow-up visits as told by your doctor. This is important. How is this prevented? You can lower your risk of pneumonia by: ? Getting the pneumonia shot (vaccine). These shots have different types and schedules. Ask your doctor what works best for you. Think about getting this shot if: ? You are older than 65 years of age. ? You are 19?65 years of age (more content not included)... Normal [facility] [address] 023 Urgent Care Record [facility] ? Urgent Care [address] [place] [address] PATIENT DISCHARGE INSTRUCTIONS Patient Information Name: BRAULIO CHAKRABORTY Age: 26 Years Date of : 1995 Reason For Visit: UC - Sinus Pain or Congestion; UC - Cough; COUGH, CONGESTION Arrival Time: 09/08/2022 13:55:11 Primary Care Physician: Alfonzo Addison MD Attending Physician: ABRIL ARTHUR Comment: Visit Diagnosis: Diagnoses This Visit Elevated blood pressure reading (R03.0) Pneumonia (J18.9) UC - Cough ([id number]) UC - Sinus Pain or Congestion ([id number]) If you received any narcotics, sedation, or any other medication that causes drowsiness for the next 24 hours, unless otherwise directed: ? Do not drive a car. ? Do not operate machinery such as power tools, lawn mowers, drills, sewing machines, or stoves ? Avoid alcoholic beverages and drugs for allergies, nerves, or sleep ? Do not make important personal or business decisions or sign any legal documents With: Address: When: Alfonzo Addison [address] [place] [address]. [place] [address] Business (1) Within 3 to 5 days Comments: Follow-up primary care provider for reevaluation next few days. Continue with supportive care plenty of rest and fluids, antibiotics and probiotics as discussed. Return to the emergency department for any worsening issues such as high spiking fevers, trouble breathing, or any other problems. Medication Information: The exam and treatment you received today in the [facility] were for an urgent problem and are not intended as complete care. It is important for you to follow up with a doctor, nurse practitioner, or physician?s assistant oceanographer for ongoing care. If your symptoms become worse or you do not improve as expected and you are unable to reach your usual health care provider, you should return to the Emergency Department, we are available 24 hours a day. For those patients who have received Radiology results, the interpretation of your X-ray as given to you by our Urgent Care physician is only a preliminary report. The Radiologist will review your films and if there is a change in the diagnosis you will be notified by phone. Please make sure you have provided a working phone number so we can reach you if necessary. In the event that you had a lab culture while you were a patient in the Urgent Care, you will be notified by phone if there is a need to change your antibiotic. Please make sure you have provided a working phone number so we can reach you if necessary. [facility] has provided you with a complete list of medications post discharge. Please inform your elevator installer/provider of your visit and for further instruction on these medications. Any specific questions regarding your chronic medications and dosages should be discussed with your primary care physician(s) and/or pharmacist. New Medications [facility], [address] [place], [place] [id number], [phone] albuterol (Ventolin HFA 90 mcg/inh inhalation aerosol) 1 puff(s) Inhalation Every 6 hours as needed for wheezing. Refills: 0. doxycycline (doxycycline hyclate 100 mg oral capsule) 100 Milligram Oral 2 times a day for 7 Days. Take with food, may make you sensitive to the sun. Refills: 0. lactobacillus acidophilus (Acidophilus Extra Strength oral capsule) 1 cap(s) Oral every day. Refills: 0. Additional medications on your home medication list not specifically addressed. Please contact the ordering physician if you have questions about these medications. albuterol (Ventolin HFA 90 mcg/inh inhalation aerosol) 2 puff(s) Inhalation every 4 hours as needed for wheezing. Refills: 11. escitalopram (escitalopram 5 mg oral tablet) 1 tab(s) Oral every day. Refills: 3. labetalol (labetalol 200 mg oral tablet) 1 tab(s) Oral 2 times a day. Refills: 3. metFORMIN (metFORMIN 500 mg oral tablet) 1 tab(s) Oral 2 times a day. Refills: 1. omeprazole (omeprazole 40 mg oral delayed release capsule) 1 cap(s) Oral every day. Refills: 3. semaglutide (Ozempic 2 mg/1.5 mL (0.25 mg or 0.5 mg dose) subcutaneous solution) 0.5 Milligram Subcutaneous every week. rotate injection sites. Refills: 5. Visit Information Allergies: Substance Reaction Symptoms Type Comments azithromycin Drug Contrast Dye Drug ketorolac Drug Toradol Drug traMADol Drug Vital Signs: Vitals and Measurements this Visit (last charted value for your 09/08/2022 visit) Vital Signs This Visit Temperature Oral: 37.3 DegC Peripheral Pulse Rate: 81 bpm Respiratory Rate: 18 br/min Systolic Blood Pressure: 140 mmHg Diastolic Blood Pressure: 99 mmHg SpO2: 98 % Oxygen Therapy: Room air Measurements This Visit Height/Length Measured: 170.18 cm Weight Measured: 131.54 kg Body Mass Index: 45.42 kg/m2 Problems List: Problem Onset Comments A (more content not included)... Normal [facility] XR Chest 2 Viewson 3 XR Chest 2 Views EXAM: XR Chest 2 Vie ws HISTORY: cough COMPARISON: Chest study dated 05/15/2015 TECHNIQUE: PA and lateral views of the chest were obtained. FINDINGS: Mild patchy density suggested in the right mid and lower lung field regions primarily anteriorly suspect for infiltrate. No obvious pneumothorax. Slight convexity of the dorsal spine to the right. IMPRESSION: Suspect mild patchy infiltrative changes primarily anteriorly on the right as described. Final Dictated by: Fernando Murrell MD Dictated DT/TM: 09/08/22 2:46 Signed (Electronic Signature): Fernando Murrell MD 09/08/22 2:48 pm Technologist: TARUN ERICKSON [facility] Insuranceon 07-10-2022 Insurance [id number]. 00OTGTIFF [facility] Lab - Other Lab Resultson Lab - Other Lab Results [id number] 0OTGTIFF [facility] MRI KNEE WO CONTRAST LEFTon 04-18-2017 [facility] [address] [place] [address] ========Patient Name: BRAULIO CELIS : 1995Sex: FAge: Race: WhiteMRN: [id number]. Location: LPOPPatient Status: DVisit #: [id number] Date: 04/18/2017 8:15:00 AMCompleted Date: 04/18/2017 08:53 AMRequesting Provider: MORIAH BOND Attending Provider: Report Copy To: OLMAN VELA Signs & Symptoms: Internal derangement knee, leftHistory: Order in RIS, No FB per mother Auth # [id number] Valid 04/06/17-05/06/17. Auth scanned into RIS.Comments: Exam: MRI KNEE WO CONTRAST LEFTAccession #: [id number] MRI KNEE WO CONTRAST LEFT 04/18/2017 8:53 AM EDT SIGNS AND SYMPTOMS: Internal derangement knee, left TECHNOLOGIST COMMENTS: patient complains of continued left knee pain and swelling since initial injury of severe hyper extension in 2006. patient has had multiple knee surgeries since. QUESTION FOR THE RADIOLOGIST: PROTOCOL: Images were obtained in the following sequences: 3-plane localizer, axial PD fat-sat, sagittal PD fat-sat, sagittal GRE, coronal PD fat-sat, and coronal T1. COMPARISON: FINDINGS: Skeleton: Normal alignment. No acute pathology. Old surgery along the patella and tibial tuberosity. Muscles: Intact. Tendons: Chronic patellar tendinopathy with marked thickening toward the insertion but virtually no edema. Collateral ligaments: Intact. Patellofemoral retinaculum: Irregularity. Patellofemoral cartilage: Moderate chondromalacia with minimal fat pad edema. Cruciate ligaments: Intact. Weightbearing cartilage: Intact. Menisci: Small intrasubstance tear along the posterior horn and body of medial meniscus Joint cavity: No significant effusion. IMPRESSION: Postsurgical change along the extensor mechanism from the quadriceps insertion to the tibial tuberosity with marked thickening of the patellar tendon insertion. See series 7 image 10 and series 4 image 2. Intrasubstance high signal of the medial meniscus posterior horn and body is suspicious but not definitive for tear. See series 7 image 21. No significant effusion or other striking inflammatory change, perhaps minor patellofemoral friction. See series 4 image 16. Electronically signed by:Shiv Saba. Transcribed by: [email or web address], User Resident: Electronically Signed by: SHIV SABA @ 04/20/2017 02:46 PM Normal [facility] Encounters Encounter Date Encounter Type Care Provider Facility Start: 06-18-2023 End: 06-18-2023 ambulatory JACKY FITZPATRICK Not Available Start: 05-25-2023 End: 05-26-2023 ambulatory Alfonzo Addison MD Facility:[facility] dong Start: 04-29-2023 End: 04-30-2023 ambulatory Alfonzo Addison MD Facility:[facility] Start: 04-14-2023 End: 04-15-2023 [facility] Start: 03-05-2023 End: 03-06-2023 ambulatory Vitor Ilene Facility:[facility] Cli dong Start: 01-05-2023 End: 01-05-2023 ambulatory Cuong PAUL Facility:[facility] Start: 11-24-2022 End: 11-24-[address] DOCTOR RUTHERFORD Facility: Start: 11-18-2022 End: 11-19-2022 ambulatory Alfonzo Addison MD Facility:[facility] dong Start: 09-16-2022 End: 09-17-2022 [facility]ulatory [facility] Start: 09-08-2022 End: 09-08-2022 ambulatory [facility] Add[facility] MD [facility] Start: 07-02-2022 End: 07-03-2022 ambulatory Alfonzo Addison MD Facility:[facility] dong Start: 04-18-2017 End: 04-19-2017 Ambulatory MORIAH BOND Facility:[facility] Payers Date Payer Category Payer Unknown [id number] 1995 Unknown [id number] 2.16.84 [id number] 1995 Unknown [id number] 2.16.8 [id number] 1995 Unknown [id number] 2.16.8 [id number]. 1995 Unknown [id number] 2.16.8 [id number]. 1995 Unknown [id number] 2.16.8 [id number] 1995 Unknown [id number] 2.16.8 [id number] 1995 Unknown [id number] 2.16.8 [id number] 1995 Unknown [id number] 2.16.8 [id number] 1995 Unknown [id number] 2.16.8 [id number] 1995 Unknown [id number] 2.16.8 [id number] 1995 Unknown [id number] 2.16.840 [id number] 1959 Unknown [id number] Unknown [id number] Clinical Note 01-05-2023 Note Date & Type Note Facility 01-05-2023 Note Patient Education Ma terials Follows: Hypertension, Adult High blood pressure (hypertension) is when the force of blood pumping through the arteries is too strong. The arteries are the blood vessels that carry blood from the heart throughout the body. Hypertension forces the heart to work harder to pump blood and may cause arteries to become narrow or stiff. Untreated or uncontrolled hypertension can lead to a heart attack, heart failure, a stroke, kidney disease, and other problems. A blood pressure reading consists of a higher number over a lower number. Ideally, your blood pressure should be below 120/80. The first ( top ) number is called the systolic pressure. It is a measure of the pressure in your arteries as your heart beats. The second ( bottom ) number is called the diastolic pressure. It is a measure of the pressure in your arteries as the heart relaxes. What are the causes? The exact cause of this condition is not known. There are some conditions that result in high blood pressure. What increases the risk? Certain factors may make you more likely to develop high blood pressure. Some of these risk factors are under your control, including: ? Smoking. ? Not getting enough exercise or physical activity. ? Being overweight. ? Having too much fat, sugar, calories, or salt (sodium) in your diet. ? Drinking too much alcohol. Other risk factors include: ? Having a personal history of heart disease, diabetes, high cholesterol, or kidney disease. ? Stress. ? Having a family history of high blood pressure and high cholesterol. ? Having obstructive sleep apnea. ? Age. The risk increases with age. What are the signs or symptoms? High blood pressure may not cause symptoms. Very high blood pressure (hypertensive crisis) may cause: ? Headache. ? Fast or irregular heartbeats (palpitations). ? Shortness of breath. ? Nosebleed. ? Nausea and vomiting. ? Vision changes. ? Severe chest pain, dizziness, and seizures. How is this diagnosed? This condition is diagnosed by measuring your blood pressure while you are seated, with your arm resting on a flat surface, your legs uncrossed, and your feet flat on the floor. The cuff of the blood pressure monitor will be placed directly against the skin of your upper arm at the level of your heart. Blood pressure should be measured at least twice using the same arm. Certain conditions can cause a difference in blood pressure between your right and left arms. If you have a high blood pressure reading during one visit or you have normal blood pressure with other risk factors, you may be asked to: ? Return on a different day to have your blood pressure checked again. ? Monitor your blood pressure at home for 1 week or longer. If you are diagnosed with hypertension, you may have other blood or imaging tests to help your health care provider understand your overall risk for other conditions. How is this treated? This condition is treated by making healthy lifestyle changes, such as eating healthy foods, exercising more, and reducing your alcohol intake. You may be referred for counseling on a healthy diet and physical activity. Your health care provider may prescribe medicine if lifestyle changes are not enough to get your blood pressure under control and if: ? Your systolic blood pressure is above 130. ? Your diastolic blood pressure is above 80. Your personal target blood pressure may vary depending on your medical conditions, your age, and other factors. Follow these instructions at home: Eating and drinking ? Eat a diet that is high in fiber and potassium, and low in sodium, added sugar, and fat. An example of this eating plan is called the DASH diet. DASH stands for Dietary Approaches to Stop Hypertension. To eat this way: ? Eat plenty of fresh fruits and vegetables. Try to fill one half of your plate at each meal with fruits and vegetables. ? Eat whole grains, such as whole-wheat pasta, brown rice, or whole-grain bread. Fill about one fourth of your plate with whole grains. ? Eat or drink low-fat dairy products, such as skim milk or low-fat yogurt. ? Avoid fatty cuts of meat, processed or cured meats, and poultry with skin. Fill about one fourth of your plate with lean proteins, such as fish, chicken without skin, beans, eggs, or tofu. ? Avoid pre-made and processed foods. These tend to be higher in sodium, added sugar, and fat. ? Reduce your daily sodium intake. Many people with hypertension should eat less than 1,500 mg of sodium a day. ? Do not drink alcohol if: ? Your health care provider tells you not to drink. ? You are , may be , or are planning to become . ? If you drink alcohol: ? Limit how much you have to: ? 0?1 drink a day for women. ? 0?2 drinks a day for men. ? Know how much alcohol is in your drink. In the [place] one drink equals one 12 oz bottle of beer (355 mL), one 5 oz glass of wine (148 mL (more content not included)... [facility] Clinical Note 09-08-2022 Note Date & Type Note Facility 09-08-2022 Note Patient Education Ma terials Follows: Hypertension, Adult High blood pressure (hypertension) is when the force of blood pumping through the arteries is too strong. The arteries are the blood vessels that carry blood from the heart throughout the body. Hypertension forces the heart to work harder to pump blood and may cause arteries to become narrow or stiff. Untreated or uncontrolled hypertension can cause a heart attack, heart failure, a stroke, kidney disease, and other problems. A blood pressure reading consists of a higher number over a lower number. Ideally, your blood pressure should be below 120/80. The first ( top ) number is called the systolic pressure. It is a measure of the pressure in your arteries as your heart beats. The second ( bottom ) number is called the diastolic pressure. It is a measure of the pressure in your arteries as the heart relaxes. What are the causes? The exact cause of this condition is not known. There are some conditions that result in or are related to high blood pressure. What increases the risk? Some risk factors for high blood pressure are under your control. The following factors may make you more likely to develop this condition: ? Smoking. ? Having type 2 diabetes mellitus, high cholesterol, or both. ? Not getting enough exercise or physical activity. ? Being overweight. ? Having too much fat, sugar, calories, or salt (sodium) in your diet. ? Drinking too much alcohol. Some risk factors for high blood pressure may be difficult or impossible to change. Some of these factors include: ? Having chronic kidney disease. ? Having a family history of high blood pressure. ? Age. Risk increases with age. ? Race. You may be at higher risk if you are . ? Gender. Men are at higher risk than women before age 45. After age 65, women are at higher risk than men. ? Having obstructive sleep apnea. ? Stress. What are the signs or symptoms? High blood pressure may not cause symptoms. Very high blood pressure (hypertensive crisis) may cause: ? Headache. ? Anxiety. ? Shortness of breath. ? Nosebleed. ? Nausea and vomiting. ? Vision changes. ? Severe chest pain. ? Seizures. How is this diagnosed? This condition is diagnosed by measuring your blood pressure while you are seated, with your arm resting on a flat surface, your legs uncrossed, and your feet flat on the floor. The cuff of the blood pressure monitor will be placed directly against the skin of your upper arm at the level of your heart. It should be measured at least twice using the same arm. Certain conditions can cause a difference in blood pressure between your right and left arms. Certain factors can cause blood pressure readings to be lower or higher than normal for a short period of time: ? When your blood pressure is higher when you are in a health care provider's office than when you are at home, this is called white coat hypertension. Most people with this condition do not need medicines. ? When your blood pressure is higher at home than when you are in a health care provider's office, this is called masked hypertension. Most people with this condition may need medicines to control blood pressure. If you have a high blood pressure reading during one visit or you have normal blood pressure with other risk factors, you may be asked to: ? Return on a different day to have your blood pressure checked again. ? Monitor your blood pressure at home for 1 week or longer. If you are diagnosed with hypertension, you may have other blood or imaging tests to help your health care provider understand your overall risk for other conditions. How is this treated? This condition is treated by making healthy lifestyle changes, such as eating healthy foods, exercising more, and reducing your alcohol intake. Your health care provider may prescribe medicine if lifestyle changes are not enough to get your blood pressure under control, and if: ? Your systolic blood pressure is above 130. ? Your diastolic blood pressure is above 80. Your personal target blood pressure may vary depending on your medical conditions, your age, and other factors. Follow these instructions at home: Eating and drinking ? Eat a diet that is high in fiber and potassium, and low in sodium, added sugar, and fat. An example eating plan is called the DASH (Dietary Approaches to Stop Hypertension) diet. To eat this way: ? Eat plenty of fresh fruits and vegetables. Try to fill one half of your plate at each meal with fruits and vegetables. ? Eat whole grains, such as whole-wheat pasta, brown rice, or whole-grain bread. Fill about one fourth of your plate with whole grains. ? Eat or drink low-fat dairy products, such as skim milk or low-fat yogurt. ? Avoid fatty cuts of meat, processed or cured meats, and poultry with skin. Fill about one fourth of your plate with lean proteins, such as fish, chicken without skin, beans, e (more content not included)... [facility] Summary Purpose Family History No Family History Records FoundNo Family History Records FoundNo Family History Records FoundNo Family History Records Found Advance Directives No Advanced Directives Records FoundNo Advanced Directives Records FoundNo Advanced Directives Records FoundNo Advanced Directives Records Found Additional Source Comments INFORMATION SOURCE (unrecogn ized section and content) DATE CREATED AUTHOR 01/05/2018 [facility] DATE CREATED AUTHOR AUTHOR'S ORGANIZ ATION 11/25/[address] [facility] DATE CREATED AUTHOR AUTHOR'S ORGANIZ ATION 06/03/2023 [facility] DATE CREATED AUTHOR AUTHOR'S ORGANIZ ATION 06/20/2023 [facility] [place] FOR RECORDS PERTAINING TO PATIENTS WHO ARE OR HAVE BEEN ENROLLED IN A CHEMICAL DEPENDENCY/SUBSTANCEABUSE PROGRAM, SOME INFORMATION MAY BE OMITTED. This clinical summary was aggregated from multiple sources. Caution should be exercised in using it in the provision of clinical care. This summary normalizes information from multiple sources, and as a consequence, information in this document may materially change the coding, format and clinical context of patient data. In addition, data may be omitted in some cases. CLINICAL DECISIONS SHOULD BE BASED ON THE PRIMARY CLINICAL RECORDS. [facility]. provides no warranty or guarantee of the accuracy or completeness of information in this document.
[2023-07-02 15:12] VITALS: BP 161/97; PULSE 80; RESP 20; TEMP 36.6; O2SAT 99; BMI 40.7
--- NOTE | 2023-07-02 15:45 | US_ITS ---
The [address] [address] Patient Name: BRAULIO CHAKRABORTY MRN: [id number] date: 1995 Sex: F Assigned Patient Location: ER Current Patient Location: ER Accession/Order Number: [id number] Exam Date: 07/02/2023 16:05 Report Date: 07/02/2023 17:15 At the request of: BHARAT SERRANO Procedure: US OB >= 14 weeks Fetus EXAM: US OB >= 14 weeks Fetus HISTORY: vaginal spotting. 16 wks COMPARISON: OB ultrasound dated 05/07/2023. TECHNIQUE: Endovaginal approach pelvic ultrasound was performed. Multiple grayscale and color images are submitted for review. FINDINGS: Single live intrauterine seen with cephalic presentation with longitudinal lie. Grade 0 placenta is noted with anterior placental location. Focal uterine contraction may be seen, as described in technologist's report. heart rate is 148 bpm.. The cervix appears closed and measures 3.2 cm in length. Estimated weight is 126.31 g. Ultrasound dates are consistent with 15 weeks 5 days with estimated date of delivery 12/19/2023. US/US OB >= 14 weeks Fetus IMPRESSION: Single live intrauterine . heart rate is 148 bpm. Electronically authenticated by: SRIDHAR ROSARIO Date: 07/02/2023 17:15
[2023-07-02] MEDS: 0.9 % SODIUM CHLORIDE 1,000 ML 999 ML IV (15:52)
[2023-07-02 16:08] LABS: Basophils Percent Auto 0.2 % (0.2-2.0); Eosinophils Absolute Auto 0.2 10^3/uL (0.0-0.7); Eosinophils Percent Auto 0.9 % (0.9-7.0); Hematocrit 36.4 % (36.0-48.0); Hemoglobin 12.3 g/dL (12.0-16.0); Immature Granulocytes Abs Auto 0.07 10^3/uL (0.00-0.03); Immature Granulocytes Pct Auto 0.4 % (0.0-0.5); Lymphocytes Percent Auto 17.9 % (20.5-60.0); Mean Corpuscular HGB Conc 33.8 g/dL (29.9-35.2); Mean Corpuscular Hemoglobin 30.1 pg (26.7-34.0); Mean Platelet Volume 9.4 fL (9.5-13.5); Monocytes Absolute Auto 0.7 10^3/uL (0.3-0.8); Monocytes Percent Auto 4.2 % (1.7-12.0); Neutrophils Percent Auto 76.4 % (43.0-75.0); Platelet Count 382 10^3/uL (150-450); Red Blood Count 4.09 10^6/uL (4.20-5.40)
[2023-07-02 16:27] LABS: Anion Gap 14.7; BUN Creatinine Ratio 13.8; Calcium 9.8 mg/dL (8.5-10.1); Carbon Dioxide 23.7 mmol/L (21.0-32.0); Chloride 101 mmol/L (98-107); Estimated GFR (African America >60 (>=60); Estimated GFR (Non-African Ame >60 (>=60); Glucose 91 mg/dL (74-106); Potassium 3.4 mmol/L (3.5-5.1); Sodium 136 mmol/L (136-145)
--- NOTE | 2023-07-02 17:21 | ED.PREGNANC1 ---
HPI - General Chief complaint: Vaginal Bleeding Stated complaint: 16 weeks , spotting Time Seen by Provider: 07/02/23 15:27 Source: patient Mode of arrival: walk-in Limitations: no limitations Limitations comment: 16 weeks , has been having spotting for past 24 hours. Bleeding started as bright red and is now dark red/brown, reports bleeding only in spots History of Present Illness HPI Narrative: 27 year old female presents to the ED for vaginal spotting. Onset was 24 hours ago. She has noticed the blood on her toilet tissue. States she is 16 weeks . She is . Reports delivery at 26 weeks with first . She has a Zofran pump. She has had increased N/V, fatigue the past 2-3 days. Denies fever, chills, dizziness, CP, SOB. Denies abd pain, diarrhea, urinary sx. Denies pain at this time. Denies active bleeding at this time. Related Data Home Medications Medication Instructions Recorded Confirmed albuterol sulfate 90 mcg/actuation 1 inh inhalation Q6H PRN shortness 07/02/23 07/02/23 aerosol inhaler of breath or wheezing aspirin 81 mg tablet,delayed 81 mg PO DAILY 07/02/23 07/02/23 release (Adult Aspirin Regimen) escitalopram oxalate 5 mg tablet 5 mg PO DAILY 07/02/23 07/02/23 labetalol 200 mg tablet 300 mg PO TID 07/02/23 07/02/23 levothyroxine 75 mcg tablet 75 mcg PO DAILY 07/02/23 07/02/23 metoclopramide HCl 10 mg tablet 10 mg PO TID PRN nausea and 07/02/23 07/02/23 vomiting Previous Rx's Medication Instructions Recorded nitrofurantoin 100 mg PO BID 7 days #14 caps 07/02/23 monohydrate/macrocrystals 100 mg capsule (Macrobid) Allergies Allergy/AdvReac Type Severity Reaction Status Date / Time azithromycin [From Zithromax] Allergy Hives Verified 07/02/23 15:12 ketorolac [From Toradol] Allergy Hives Verified 07/02/23 15:12 tramadol [From Ultram] Allergy Hives Verified 07/02/23 15:12 Review of Systems ROS Constitutional Denies: fever or chills Ears, nose, mouth, and throat Denies: neck pain Cardiovascular Denies: chest pain Respiratory Denies: shortness of breath or cough Gastrointestinal Reports: nausea and vomiting; Denies: abdominal pain or diarrhea Genitourinary Reports: vaginal bleeding; Denies: painful urination, urinary frequency or urinary urgency Musculoskeletal Denies: back pain Integumentary/Breast Denies: rash Neurological Denies: headache or dizziness Exam Constitutional Vital Signs, click to edit/add: Last Vital Signs Temp 97.8 F 07/02/23 15:12 Pulse 72 07/02/23 19:36 Resp 18 07/02/23 19:36 BP 128/82 07/02/23 19:36 Pulse Ox 98 07/02/23 19:36 O2 Del Method Room Air 07/02/23 19:36 Common normals: no apparent distress and oriented x3 General appearance: cooperative HENMT Mouth: oral and palatal mucosa normal, lip normal and tongue normal Eye Common normals: conjunctivae normal and no scleral icterus Neck & C-Spine Common normals: supple Chest Chest: symmetrical chest wall rise Respiratory Common normals: normal respiratory effort Effort & inspection: symmetric chest movement Auscultation: clear to auscultation bilaterally Cardio Common normals: regular rate and regular rhythm GI Common normals: soft to palpation and non-tender Neuro Common normals: oriented x3 Sensorium/orientation: awake and alert Speech: speech normal Course Vital Signs Vital signs: Vital Signs Temperature 97.8 F 07/02/23 15:12 Pulse Rate 80 07/02/23 15:12 Respiratory Rate 20 07/02/23 15:12 Blood Pressure 161/97 H 07/02/23 15:12 Pulse Oximetry 99 07/02/23 15:12 Oxygen Delivery Method Room Air 07/02/23 15:12 Temperature 97.8 F 07/02/23 15:12 Pulse Rate 72 07/02/23 19:36 Respiratory Rate 18 07/02/23 19:36 Blood Pressure 128/82 07/02/23 19:36 Pulse Oximetry 98 07/02/23 19:36 Oxygen Delivery Method Room Air 07/02/23 19:36 MDM - OB/Uterine Contractions MDM Narrative Medical decision making narrative: Ultrasound showed a single live intrauterine with a heart rate of 148 bpm. WBC count was 17. Urinalysis showed evidence of infection; culture is pending. A prescription was provided by Dr. Collins for Macrobid. She was encouraged to follow up with her [employer] for a recheck, further evaluation and treatment. Return to the ED for new or worsening symptoms. Medical Records Attestation: I reviewed the patient's medical records. Lab Data Attestation: I reviewed the patient's lab results. Labs: Lab Results 07/02/23 07/02/23 Range/Units 15:51 18:10 WBC 17.0 H (4.0-11.0) 10^3/uL RBC 4.09 L (4.20-5.40) 10^6/uL Hgb 12.3 (12.0-16.0) g/dL Hct 36.4 (36.0-48.0) % MCV 89.0 (81.0-99.0) fL MCH 30.1 (26.7-34.0) pg MCHC 33.8 (29.9-35.2) g/dL RDW 13.0 (11.0-15.0) % Plt Count 382 (150-450) 10^3/uL MPV 9.4 L (9.5-13.5) fL Neut % (Auto) 76.4 H (43.0-75.0) % Lymph % (Auto) 17.9 L (20.5-60.0) % [place] % (Auto) 4.2 (1.7-12.0) % Eos % (Auto) 0.9 (0.9-7.0) % Baso % (Auto) 0.2 (0.2-2.0) % Neut # (Auto) 13.0 H (1.4-6.5) 10^3/uL Lymph # (Auto) 3.0 (1.2-3.8) 10^3/uL [place] # (Auto) 0.7 (0.3-0.8) 10^3/uL Eos # (Auto) 0.2 (0.0-0.7) 10^3/uL Baso # (Auto) 0.0 (0.0-0.1) 10^3/uL Abs Immat Gran (auto) 0.07 H (0.00-0.03) 10^3/uL Imm/Tot Granulo (auto) 0.4 (0.0-0.5) % Sodium 136 (136-145) mmol/L Potassium 3.4 L (3.5-5.1) mmol/L Chloride 101 (98-107) mmol/L Carbon Dioxide 23.7 (21.0-32.0) mmol/L Anion Gap 14.7 BUN 11.0 (7.0-18.0) mg/dL Creatinine 0.80 (0.55-1.02) mg/dL Est GFR ( Amer) >60 (>=60) Est GFR (Non-Af Amer) >60 (>=60) BUN/Creatinine Ratio 13.8 Glucose 91 (74-106) mg/dL Calcium 9.8 (8.5-10.1) mg/dL Urine Color Lt. yellow (YELLOW) Urine Clarity Clear (CLEAR) Urine pH 6.0 (5.0-9.0) Ur Specific [place] 1.025 (1.005-1.025) Urine Protein Negative (NEG/TRACE) mg/dL Urine Glucose (UA) Negative (NEGATIVE) mg/dL Urine Ketones 15 A (NEGATIVE) mg/dL Urine Occult Blood Moderate A (NEGATIVE) Urine Nitrite Negative (NEGATIVE) Urine Bilirubin Negative (NEGATIVE) Urine Urobilinogen 1.0 (0.2-1.0) EU/dL Ur Leukocyte Esterase Small A (NEGATIVE) Urine RBC 10-20 A (0-2) #/HPF Urine WBC 5-10 A (NONE SEEN) #/HPF Ur Squamous Epith Cells Moderate A (NONE/RARE) #/LPF Urine Crystals None seen (None Seen) #/HPF Urine Bacteria Small A (NONE SEEN) #/HPF Urine Casts None seen (NONE SEEN) #/LPF Urine Mucus None seen (NONE SEEN) Ur Culture Indicated? Yes Blood Type A Positive Imaging Data US- OB: Attestation: I have reviewed the pertinent imaging results. Radiologist's impression: Procedure: US OB >= 14 weeks Fetus EXAM: US OB >= 14 weeks Fetus HISTORY: vaginal spotting. 16 wks COMPARISON: OB ultrasound dated 05/07/2023. TECHNIQUE: Endovaginal approach pelvic ultrasound was performed. Multiple grayscale and color images are submitted for review. FINDINGS: Single live intrauterine seen with cephalic presentation with longitudinal lie. Grade 0 placenta is noted with anterior placental location. Focal uterine contraction may be seen, as described in technologist's report. heart rate is 148 bpm.. The cervix appears closed and measures 3.2 cm in length. Estimated weight is 126.31 g. Ultrasound dates are consistent with 15 weeks 5 days with estimated date of delivery 12/19/2023. US/US OB >= 14 weeks Fetus IMPRESSION: Single live intrauterine . heart rate is 148 bpm. Electronically authenticated by: SRIDHAR ROSARIO Date: 07/02/2023 17:15 Discharge Plan Discharge Chief Complaint: Vaginal Bleeding Clinical Impression: UTI (urinary tract infection) during Patient Disposition: Home, Self-Care Time of Disposition Decision: 19:17 Condition: Fair Mode of Transportation: Private Vehicle Prescriptions / Home Meds: New nitrofurantoin monohyd/m-cryst [Macrobid] 100 mg capsule 100 mg PO BID 7 Days Qty: 14 0RF Rx Instructions: must administer with a meal/food No Action albuterol sulfate 90 mcg/actuation HFA aerosol inhaler 1 inh inhalation Q6H PRN (Reason: shortness of breath or wheezing) escitalopram oxalate 5 mg tablet 5 mg PO DAILY labetalol 200 mg tablet 300 mg PO TID levothyroxine 75 mcg tablet 75 mcg PO DAILY metoclopramide HCl 10 mg tablet 10 mg PO TID PRN (Reason: nausea and vomiting) aspirin [Adult Aspirin Regimen] 81 mg tablet,delayed release (DR/EC) 81 mg PO DAILY Instructions: Urinary Tract Infection in (ED) Stand Alone Forms: Portal Instructions Referrals: JOHN GUERRA [Primary Care Provider] - 1 week Discharge Date/Time: 07/02/23 19:38
[2023-07-02 18:21] LABS: Bilirubin Urine NEGATIVE (NEGATIVE); Blood Urine MODERATE (NEGATIVE); Clarity Urine CLEAR (CLEAR); Color Urine LT. YELLOW (YELLOW); Glucose Urine UA NEGATIVE (NEGATIVE); Ketones Urine 15 mg/dL (NEGATIVE); Leukocyte Esterase Urine SMALL (NEGATIVE); Nitrite Urine NEGATIVE (NEGATIVE); Protein Urine NEGATIVE (NEG/TRACE); Specific Gravity Urine 1.025 (1.005-1.025)
[2023-07-02 18:23] LABS: Urine Microscopic Indicated YES
[2023-07-02 18:28] LABS: Bacteria Urine SMALL #/HPF (NONE SEEN); Cast Seen? NONE SEEN #/LPF (NONE SEEN); Crystals Seen? None Seen #/HPF (None Seen); Mucus Urine NONE SEEN (NONE SEEN); Squamous Epithelial Cell Urine MODERATE #/LPF (NONE/RARE); Urine Culture Indicated YES
[2023-07-02 19:36] VITALS: BP 128/82; PULSE 72; RESP 18; O2SAT 98
== END 2023-07-02 19:38 | disposition home or self-care (01) ==
PROVIDERS: Nurse Practitioner Family; Emergency Provider Emergency Medicine; PCP Family Medicine
DX: O23.42 Unspecified infection of urinary tract in pregnancy, second trimester (principal); N39.0 Urinary tract infection, site not specified; Z3A.16 16 weeks gestation of pregnancy; Z97.8 Presence of other specified devices
CPT/HCPCS: 36415; 76815; 80048; 81001; 85025; 86900; 86901; 87086; 99285

== ENCOUNTER 2023-07-22 10:19 | Outpatient (OUT) | payer BC, SELFPAY ==
--- OUTSIDE RECORDS SUMMARY | 2023-07-22 10:27 | XMS_ITS | CCD ---
Author Name Unknown Address [address] [place] [address] Organization [facility] Care Team Providers Care Skein Dyer Name Role Phone HOY, MORIAH Unavailable Unavailable HOY, MORIAH Unavailable Unavailable SELF, REFERRED Unavailable Unavailable HOY, MORIAH Unavailable Unavailable [facility] Primary Care Unavailable AMARI ., DR RICO Attending Unavailable AMARI ., DR RICO Consulting Unavailable AMARI ., DR RICO Admitting Unavailable JACKY FITZPATRICK Attending Unavailable Alfonzo Addison MD Primary Care Unavailable Vitor Odom Attending Unavailable Alfonzo Addison MD Primary Care Unavailable Alfonzo Addison MD Attending Unavailable Alfonzo Addison MD Primary Care Unavailable Alfonzo Addison MD Attending Unavailable Alfonzo Addison MD Primary Care Unavailable ABRIL ARTHUR Admitting Unavailable ABRIL ARTHUR Attending Unavailable Alfonzo Addison MD Primary Care Unavailable Cuong Cárdenas Admitting Unavaila Cuong Sheldon Attending Unavaila DINORAH Rick Admitting Unavailable DINORAH GILBERT Attending Unavailable Alfonzo Addison MD Primary Care Unavailable Alfonzo Addison MD Primary Care Unavailable Alfonzo Addison MD Attending Unavailable Alfonzo Addison MD Primary Care Unavailable Alfonzo Addison MD Attending Unavailable Allergies Allergy Classification Reported Allergen(s) Allergy Type Date of Onset Reaction(s) Facility (2 sources) azithromycin Drug Allergy 0 The [facility] Repository (3 sources) ketorolac; Translations: [Toradol] Drug Allergy 0 [facility] Repository (2 sources) traMADol Drug Allergy 0 [facility] Repository (1 source) Iodine (And Iodine Containting Drugs) Drug allergy (disorder) 5 The [facility] Repository (1 source) Azithromycin; Translations: [azithromycin] Drug Allergy [facility] Repository (1 source) Contrast media; Translations: [Contrast Dye] Propensity to adverse reactions to drug (disorder) [facility] Repository (1 source) Ketorolac; Translations: [ketorolac] Drug Allergy [facility] Repository (1 source) traMADol; Translations: [traMADol] Drug Allergy [facility] Repository Problems Active Problems Problem Classification Problem [...] Interpretation Reference Range Facil ity Outside Recordson 07-08-2023 Outside Records [id number] Rad - Ultrasound Report [id number]#1.[address] [place] [address] Outside Recordson 06-01-2023 Outside Records [id number]#1.[address] [place] [address] Rad - Ultrasound Reporton Rad - Ultrasound Report [id number]#1.[address] [place] [address] Coding Summaryon 05-01-2023 Coding Summary HTMLBase 64 WvamvieuHTp9lVw+PGhlYW Q+ZI4GFIPlG55kfTBdfQ3u S2IHGTtROkneAMDZAQpPEu OxrqLtAZ3dsNHiLMEf IC8+LZ5nRGRfFpdodBRub4 P0tRC0V82kzh2yJVhwwEN6 JAVlPkVyhvqdn1tryDd3SK cuNmluOyBt IVPvsC71HKJ8kH62Jw83sE JhjTFat2cvjUq0RrBsLUXd TJP4aGfjNCyhz0VsUZQtF7 7epBVsm0X6 ESSycRkeoEZtTdLhuYB3bN 3kUEbtuxqye3yiaddgBlw4 ot88pBWok5L9sWV5C8Zdby X9ODYmoHJe TkxfcZCLiA4gouhnu5edls acOxYsCSErLJv7IMn8MQDk uBscEbNcUQ62JED2YLKyxf TmO2FvDPBo qIloNcT4m7U4Bn7XB2GZUj fuO2GFNMPEJOdqgRH+PC90 ag49Y2JdOiwoLsz7HOVnNJ L8vSX6gR1e ISVfCUnge2T9xPF7Y7Utdh Mncx0vh0eqIDQgAWywP91s vHNwb5G6ULUusPH9KRAszE pqCrHrlS65 Oyc+LLKvnPjst0CfBiuxb7 jlc2oemNx3MushVYCveeUv tBcoABF4d5HxHn1tMOGuyE B0hVE8gX7a VgKoMzB2XYpoC553CsBrqT ThOyofO13kF0GqbPX+PHRy Ccz9KYOpiIjsKI5xW7RoFQ RpbmctbGVm iKigUA0yQGVxidyhXGMjyW 0eKRTeA9t4XjVhIbI3VWvc W3ZpWQUyvaybFl53eF8xAl NeWbO9ZFtm S0RwalQ4VRKunGYhEWpuQO H4F60lm9A9OEMrHCIzGNG4 jYW3nF2iqFtrkawyiWHaoX sgdmVydGlj UAzdOPcaN327NMBbvLvoEs NvZGluZyBEYXRlOiAgMTAv MjAvMjAyMzwvdGQ+PHRkIH R4fZbnMZAd oTNvQSgqOu7nwQmrwJaeOK 5hWBAvygthTWDoyS8rAWYq eZMgzTafPG7rLNUmymdwe5 58MwJdGIY1 FYAppJCwT4LhbL0oDgMnMW MwUFIaM7NrdDJcWCkfY890 TPpyTqY7AONvboXeZ6RzPD FsaWduOiB0 c2C5Uq4Ik7QfdlinE5KcmT HdJeRrFshzZTt2Z9RsUrmk dHI+PY15ANVyFL47YOz5IF E8fIaeTWky ACYpT5WvjK3xDkQuKDOqSA RkOyc+PHRhYmxlIHdpZHRo XWusBRMzEfEwlItfPL4xFg 9yZGVyLWNv fSlydXLtAoWjt6kvJCNfSQ hwDG0rxTwdE1OxkXK5WNKn w3w2Qa27W45sP0MwbSH+PG XjfWJ8kZY8 pP4bZvWvBgF5MBkvW925Gv EtmYCoSocyc7ewu7ssyWh1 XjO3CFWrfsLqnGjrOKY3g7 WhGa94A44p IHdpZHRoPSIxNSUiIHZhbG sytv5psY4mCt2+PGNvbCB3 qBB5nW4mOaKgHoA7XSjiD1 49InRvcCIv Fkkre2uza0hzgDb6HlWrXF MvtgLjbDioTNB9q8DoUa30 Y6LayWlsv7VwSvi2qd90aT Tpt6H6yET5 E3OaILZrieigsUGzwIkuRL 1mGGZfaohpJZHwaR8fLPAz A3m3YnNgAoL3WNilS4Sgnn O3SSDuwKPo YDChaKDVqH7ohjllf8rbqg glJxPkKNKfFLi4DQe5LIWs sEfbYlOgDGI5QjQ4TMO3uI VchU7tyNpj bffzwY7qQga+EAS8vSFnrC KPWR3rPlcyvFA+PHRkIHN0 uMulHWrbIOPecH7pITPjF3 o7KlQwOqI0 FPmuM8CkfmB1YZWpoRRmTV MpzYAIfZ3mlywli6brgupr HqRaTBFfVXu2ZJt7DDSwcY duOiBsZWZ0 FwI6AIT9eUVilM4lnCkcnj rbtP9kFnq+QmlydGggRGF0 CRs3V7MgQbz0UABosIbyMQ 0ncGFkZGlu Pe1wuTtsbEmbGU1tCOYhhj wlq577TtWxs3yrVBYyuTIq JZjqARJ2G21pt6T4FTJjSL GiXYO1tUG9 oX0juCrmhuihlCIcsKttwd AsnRxuQHchHCffM374UPVa pDjnVuJoTBx4W3MiWac5ZG AxwBoiTZ1n aTDlHVkaIi2kdViaaTvjMH 0pWZQzdmaep456LnOgk4ro VTHoiDNkRDprMGP5V61gx4 K7UVGsNHMk OLH6nBC0qD6mrSjbsmtxuM VmdDsgdmVydGljYWwtYWxp D503OIAmrMqcKtMgoMe8X7 OiDji8SZDx qWsmRJ0drRErVUlqVt3lxM mjqRbvXL1mXNPgvaaix798 GwNlr1rdRDBklLBsKJkjRT D3M73ff1D7 YUSrEGLbGZQ3tYK9aG9ubE lnbjogbGVmdDsgdmVydGlj UToeSCzoU100MYQdiOaoPy BhdGllbnQg YJkaPMf6R3RrSrqouGV+PC 32EBDjRH15wVNeiANfp4wq nBj6QlKkZVFnTTL3fBktQX end7VqSKUk C99zkPYpd5A9AQNuqPccfL WmNnVsjYP9oX2wRMvfpdoo k1bfbgdzDruiy7ieqj28pR 57P63qWTjm ZHRoPSIzMCUiIHZhbGlnbj 8xqN1dZq4+IPDqwWS6fNR8 sV6qFDHjLoC5LXdoN548Wb RvcCIvPjxj f9idu3qpdFe4NxV9JEZdlk RqnYjpJRQ3h7OhWu94L20g IHdpZHRoPSIyMCUiIHZhbG piev5foB5g Ii8+PNSpeXY2wVH3bF0nUv GsKfU6ZMdpL456MqFpkPSx ShidJ07nZ1FrwPL+PHRyPj e7BFXzbNjq MQ0xgSCgWXnmNk0lQXA9Uz UzQjFbMChnZ4RhSGFblyzz thxfhYB5NSEyOXNzuC51Te 9udDogMTBw yHJSzW1vvsfts1muzjowNw MqIWEzQGr9XWt0MNAqcStb KmDhMGY8LrR8YPW5fQGrqK 1hbGlnbjog uY7gD4QkNIJfiaasJa58kP 0bLjFjTiH1WLmoNld+V0lM Q6xQCtcxESUWY7QoQR4CUR 44HV95tKJc y5G0gWP7M1NtNJAlfeieav qruYH6KCIaVAKgwG49hJXh QSngOh1kt7E8f453MKVvXO HedM45Pz0p bSscVXKsbUUEsM0ubxssx4 xwilocNqKfAYUeLIt8JPc5 JABxxQhbVjFjTAG3PoK0DL S1mLRmcY3x eTnviveovV6xVbz+MDMvMT RbNSh0HmpugAH+PHRkIHN0 nBwxVGupSNDiwF1dZMFpJ0 w3PuPiLgT9 PSbcQ4UuPXJchcpiJs75qG 4mDnUuVxN0SWezP8TvkrQ1 GERmbTNiBGmsGNB5K94pu3 U3TFIsQIBg SZN2uRM8kT1qlEuvclmrdY VmdDsgdmVydGljYWwtYWxp E199ASMfoTrqCwR2CYenCF AhKM37HU10 dCYoi4I1cQY3U8HuAWIbpw lbgrediVU4NZAzHDPykB86 eDDwLJyvEr4je6T4n102JJ PkCFHoqS47 In0fwUnsEMPzpTNHtK7tkm pdp0gmykywKmUmLFYzTDb8 DUa3GQOqvPatFkExGSO2Yo Y3GGW7eTEl eC9ybBrstswhpG3gFck+Rk UIGClWBN62OD93cRNsv5S0 hTT5G3IxBYSplrgamvrgiB K9DFWtOMSp iV89cXXvROgtLk0hr7E9l4 21IVHgWEKeqC85Jq2pwKcw ZTWbpZKMjN6skblsn7rpac ogIzAwMDAw JNy9ACp0FWPtkDgwQiUiLY T0WhA3CBA9yFFqnM2azPtg jsejkD7rZcg+D9M1C5ZdSm wvdHI+PC90 ZWGiYJ45lELswKEjk7xddS b6MtPcJQYgFKP7xRadTXuh r2GyTUMmO61puVEhe7J0FE NvbGxhcHNl ZlQllQG4wN9yIQvvhchej9 pypeyrDcvxy3gwke11aX90 L31vUTnoFIDrYNAcFXJsXU LdnSidjb7m zJ7vUb9+CDMioKA0dAL8lM 9kBwTpOgS0DFcpS082ZiOd wAEhZfvge9izt9dlhTb3Vw IwJSIgdmFs mJjwKDI5h6ExPn80E72yTD dpZHRoPSIyMCUiIHZhbGln uc1ylU6oTj1+SK5nj3dlvy 30oR68fJS+ VCGcLPP1oPbeCBwgZYCdmK 6pOUlfQyZ6PONwKbBlpI46 qVOlPWpaLs3liQptqQcqGV 4wNTBpbjtm i024CbLhe5kuOGTybDOmZE lgUWH0G11gz2F5CSGuOCYw ADF0wQF1kJ1mwZkkudsvgY VmdDsgdmVy qKlwCKhfKErxN223WOEkqN lnTkIonWScH4owtkIRQH0w OjwvdGQ+IBKyTXM8yBpdAW vcWCTpcG3f THMuU8r0DyLcSvX0IWclA8 AtjwG3BCOoeQGoWWTtdKYY tB8hvcyns0tqearnAtMeLH RwMEz0UAx6 FFUshGzgLcEgDTW5CzJ5EG G8cFFegI4qhPjpmisbzB6y Oyc+RklOOjwvdGQ+PHRkIH M8dObrKOyh ZQWgiI1nOEDnN2k4GxVmIt W3XSyeG3GwnlL8QAWxuQEo DODcqZHRnA2jdoqbb0choh ogIzAwMDAw MFy8ECa3MTEpqJylIqCxEF P7EjQ5EJZ4mLFckK2hxLsw yfcjpS0uQog+TVJOOjwvdG Q+PHRkIHN0 rRwkBQblJGVarJ4lOBJvB3 q3VbOhSqJ0QXeoU7SofbR3 OSNqoADkMEBmwODBnD0ogh sws7qvnwnj YpCdQINfQBw9QZh9THHhqN sqUdDpCNE5JfZ8CSK8dYTs dV2seIsriqlfvA1zLoq+UG X2XLS8XB55 QY48U5HjHjpogOFbgEM+PH RhYmxlIHdpZHRoPScxMDAl VsXecGwcGD0jLh9nXFVwWP NvbGxhcHNl OiB (more content not included)... Normal [facility] Coding Summary HTMLBase 64 ZxhrwcrnUUp0hSc+PGhlYW Q+AH9SYCYfS21dsWCfsW9l N9ZPOIaMZzrrKEAPXXrKFy JwlvEwKL2giIHbNIEv IC8+MR1jQJCnKryvkXRnl7 S0mOT3B12zxd1zDCpqlWT1 ZXLbDyZeuikly8tmrLr4ZH cuNmluOyBt MVWybD34SSU3xM69Km43bF XzkSCul0tcxQv5BwIpNBOg PZL6hCimGYpms5DsHXMyZ1 4gtRBqe8L9 QHCxjArlcJTjJfIbpDC2bR 8jMGokcabqw1kgkrwkZsy0 pu23nXTal1N8hVG2M1Rtmj E0YCXoyBAc JueawNWFhE7soxxqv4potu nwZuNnIGMlFNp5EHw3PADn zEurSrVwNI99BVO3IJEszy BfI9LxEXJn pZufBxJ4w5J8Zc7QB6GPZf xiV6HMBWYTTMhccKM+PC90 bx13D7UoEciwZwf6RWJkPB J2aMC8xA5d QKKaJTywj9R4yPJ2A1Kqka Qrla9xw6cjULLnBPhoD63j cWNap9W0HGSpaFD1KUSpxF ahNrScpM55 Oyc+LYXpuRest2CwMclpg0 rdb6qdzIn0KwhaKGPbazIb yQlmNPU7e5QsDy0tGJPliP L3nZH2oI8x ObVmGcF7ORaeQ296ShVswD ToGyzcW00aK8AhcXW+PHRy Xvd6FSNmgPbaQM8aC3JwFJ RpbmctbGVm oBokHE0pJTQdnqmjLRBdzZ 7hJMBsP7v4MbZpUfK5OYeu I5BbRXKfhqoeLx18hU0tBp TsZeJ0SNrj M9QweyM7XCJsiGUqDGobGH O4P58yv8Z2QGAdGTRkTIF7 cNF0fL1giUdrgfzprUQilP sgdmVydGlj GHysBFmrA698CVRyoLghOj NvZGluZyBEYXRlOiAgMTAv MjAvMjAyMzwvdGQ+PHRkIH F8iIbwSRYu yRToPNssEb8ctCpksTaaOV 3uLSSkfojgGRVmqH9wAKXn nGYqxMhbRX8pOAKbjwykw9 98BoPdWGB0 KUIgqHIaM8XyxF3vYaKfGG UbJBAyX6WxbYJmKSseK193 NYyqBqN1NAQjijIdJ5HvBA FsaWduOiB0 t3S8Cv6Bc7BmkwobQ6XfgS JtAnGaGhusBOx6U2EnRiqv dHI+MF53DALlNB94ARb5WY P8gRbeZMio FOUsE3UukH0yLfGuAGBbWS RkOyc+PHRhYmxlIHdpZHRo MEdsWWYaYtQhhPyvPG8xGp 9yZGVyLWNv bBtdkBEcBrFpb6yxTQRxMY bfIG2geUqrO9HzxMY2VPKk f8y3Nd28Z38dZ8IymMS+PG TzrCW9hMI4 hC4zRtYfNhQ8SIifP644Lc MqmWTkWtkam4lyz7kqnYz7 OyU5XYQabdOevXswQLE7t6 VtRz87A83g IHdpZHRoPSIxNSUiIHZhbG nfzc8xoU1yZk4+PGNvbCB3 lXY9nX2xIvChUmE3ADryW7 49InRvcCIv Irbun1pxt3olyVl4BiWoXS YfstOutTfdNAL4a6LiVz64 U5StbSquc6SiGak9yd58jM Dvt2D0tJV7 X2XbQIYwcxcfoFRzhPtgSK 2dGTBvlcgjKXVagO6uLRJg J3i0ZqVwZmR6NQfgW8Farc T3UGPplOBu ZNTedEJKdN7kfmlrs7qsdx elNcOgZQZrUWq2UTb9QUWs sHhyEaQzSTN9NxX8CVJ0wY LjtW7vyEfa obtzuF8lTqb+TSM8xPRyvC ONKS5jUfizmCB+PHRkIHN0 cCcbTOaqZVZozD0lKSSyE2 j2QkOhAhH1 LRcqF6ZfyoZ8VYCbiLWiYF QeiVGQeV4dzctyw2jpwnaq AwLyDXVqWVb1YIu9TFQtyW duOiBsZWZ0 XuE0VVG7fHSyeS6gwKczcp rprV2rUpa+QmlydGggRGF0 KQu1V6YaXqh4NBZofSvwBF 0ncGFkZGlu Zg0znZbklFkkBN6sNKXjkh twy659YbYqm1woEJTxcKEu ZRchFXD2O76sy5F9OPBjYP OfPBW9pUS1 lF6rrCjtysukxREjjVcgkt JlxQqqWBjmCSjtT780IHHs tRylWpPyGCs4D4OvLbv8XD ToeMkcOW7d zZXlEVwvQw9kkHyitGxcPJ 8vXWCsqqlmt659NeNap0gj OKLwkUTeKRniENK8D10ro2 O8RXMiIPFz BCI2jLH1yV4ztYvjzudyzZ VmdDsgdmVydGljYWwtYWxp W477BMMmmQfvTeRlsMi5U4 IrMfa0VTGt bSsdIL9yqTDsMJgaXw1liA fqnBlkZF8oWDNzcewog590 NjHsl0dcJSWmdIDuFSffQJ P6E22hh2R4 KXQgAXClMOO3cPC8dC4pvT lnbjogbGVmdDsgdmVydGlj HFnxNOznJ762COFtwKicSi BhdGllbnQg JFikSPy5M3IiWbdfwPX+PC 24IPLgCM50oBAikPIyz2pr eEc8WpQmJZJmLUR4iYidVM uhg6SvORRz W97ltWAqy3C4SHPyiDrklP FmVmLquTF6uE5pMMndopau y0brhvwwCwfgb5oqfj80pY 62M42yIKwj ZHRoPSIzMCUiIHZhbGlnbj 9oqX4wSi6+DCOplZK5sWN7 eE5tEGMiJnJ0HLqaR004Lf RvcCIvPjxj z6emh1tmuXv8XrH1HNVdvx IfcXrkEUT0i2PhJe13B63y IHdpZHRoPSIyMCUiIHZhbG uzgm0mnO5v Ii8+ZQDqbMU2uBG4fG6gSq UeZfU4ZOngT821EuSjtVZg QwtuP58iU9GtcPI+PHRyPj t7WLVmjMvx AT1coNGiJDbcSt4xQLM5Ik XuRzZfZAonH5LqCHQsddlg krodzRI5IRRmBFSlnJ68Pl 9udDogMTBw uAYGwF2ehwttr4kpiowkBh BmJLRkNWt0CNk8AIXmvZyr VvAdQBL9IeT8GFJ8sJMncA 1hbGlnbjog sR1vT9EfNQKzssdvEj69kQ 3uYgDfWrP5LXyeQch+V0lM O6pAMvdvWRKCC7OlWZ4NCU 93EL59sUCm p0E2bOI6Z2ZdNBCbnscewi adkJU1JBJpJNNzlQ85gGXi AWatWc8cj5G2k378RWGyZJ DzbB42Me3m bXqcCWFkaYDFuF3nbhcep2 ejayekXmCqCYXvFTm9AAp4 BDNgcKgaKdPtGGY1SeS2YH I9bZYgsD3t tCdgadbntI8nCzg+MDMvMT KqPAf3QyjnoKH+PHRkIHN0 qGvpXUduLBChxA9yUDWjR1 r9HlEgDuW3 DQikH6OxJAQlrlrxYh01iX 8mGgYeIkA0MGdpB9DbnzS8 XGRyhUHmAWuhOHY8R97rl7 K2WDOgTILa YFE3lKO8mG3exCudlavvpD VmdDsgdmVydGljYWwtYWxp O589YPOvdKlbGvP5UZorXO JpGE47ME52 iEPrv9I1iPP3A2JxNIQkyd qewzjmcTY2ORMiRINthA68 iWLsCNabTq5te2L1u447QS IaSUSxmY47 Zl9pkRhfIOXwpSEIjM7big zrx1fhqzuhPfRiDBNnDDi5 TAu6JQSehQgpTaWfGRF8Vm L4IPK2lIJt yK8qyWsmarmxiW9xMur+Rk LIFYjSUC64WQ12qNTfq0Z2 oDN0R0SfDENqgrojnxjvwS C2ZJFhOPEy tI09nCNyNJyjMk1ze9Z4h5 76TUEePEOzrB58By5uxAxi YXSxoAROqX8gxdevl5qyab ogIzAwMDAw IUp1VEb8UVJzjXslIyCtKH J9IgP5CVM8dPTisX9imJgq zdpluT9eSsv+T2S2D3WcVu wvdHI+PC90 VDWtOZ21aOJbePEoz5pulP y7BhRpODWvSXZ3vDstHJby t8VjDVEbB97kbOSab9W0RU NvbGxhcHNl QpBdyNF4bZ0rVCesxvqqk6 lyvqmzEnzyu7hwee68bX03 G12sBOkyVKFqUKXmWJUvVJ UscRffud7v tU6fXh6+BUMulOK3fDX2rT 7fTbBhNmR0KIvpE919LpPu gDJnIxtra6lmq3entKk9Ml IwJSIgdmFs lJbiQWQ5m3VgPe30U77aZR dpZHRoPSIyMCUiIHZhbGln vb1fqE9oCm3+JW7zd5japc 57nB57dEK+ TIVfAFO2sVxgHLsgWLTsvB 3yJZrhXnT2YIPmHsHdyS94 xJMvHZypMy6gxLiovGyuAP 4wNTBpbjtm w018SzHoz5vyGHAryKPcTN bsGQC2W09uu8T7LDFfHKXd GVX2sHA5qA4ouMadiuxxrH VmdDsgdmVy qWhfUMolMBijT322SFTvdL yuZaIfbCDlF9ogxuRYZG0d OjwvdGQ+XPPvFXD0vIwzHE jqLABjeF6y YAChZ5f5MuWeNiQ8JVnfG3 TerzF4VOWvuTPlSMRehLZR mP9mboyhc4ekabdwCuZeIV DiSKa2ZGt2 DMJtjRolTuSvMDU9YcV5IY S6hADokX0ytTacklpncA5d Oyc+RklOOjwvdGQ+PHRkIH Y6eRyvWTwn HFAjyU7xREWcV2q3UgRlQx M9YNvwT4GoeaY8LYBaiGVw LAWcvTIPgM5ybcuwo2yhzm ogIzAwMDAw IJd1EGv3MHYrtEchGgDeGW R4FoC9OWE4kRUrkR5vrKwf crgnnF9rKpx+TVJOOjwvdG Q+PHRkIHN0 aHmvLUitMQCobH4pEVSnL9 r7SkXzUqT1GCilF2VdcrW7 XNCvcUHuHQRblEFNqQ3rrq trc9zxgvtx YwWzXTFgFRp1PJn2RLMtdQ xzEjFbLEW7FzE5FJY2oVKd bR5qiRskkyguiU9fSpg+UG E8MXO1NC88 IJ95L2DhYyvowVJrdFP+PH RhYmxlIHdpZHRoPScxMDAl HgJxeTnqBX6fJq6tUIUoKS NvbGxhcHNl OiB (more content not included)... Normal [facility] Reminder Messageson 04-30-20 Reminder Messages - From: DINORAH GILBERT DO To: [facility] Clinical Pool ([facility]); Sent: 04/30/2023 07:53:33 EDT ! Show up: 04/30/2023 07:53:33 EDT Subject: Results Follow Up Actions: Call the ordering provider with results Due Date/Time: 05/01/2023 07:53:00 EDT Reminder Comments: looks good. no problems Results: Date Result Type Result Name 04/29/2023 13:59 Radiology US Thyroid From: Sindy Cormier ([facility] Clinical Pool ([facility])) To: DINORAH GILBERT DO; Sent: 04/30/2023 10:55:59 EDT Show up: 04/30/2023 10:55:00 EDT Subject: RE: Results Follow Up notified patient, patient stated she recently found out she is and that explains some of her symptoms as she had issues during her first . 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 I will fax the US to [facility] for their records. From: DINORAH GILBERT DO To: [facility] Clinical [place] ([facility]); Sent: 04/30/2023 11:51:41 EDT Show up: 04/30/2023 11:51:00 EDT Subject: RE: Results Follow Up noted Normal [facility] US Thyroidon 04-29-2023 US Thyroid CLINICAL HISTORY: History of nodules. COMPARISON: None available. TECHNIQUE: Ultrasound of the thyroid was performed with a regional survey. Reference: ACR Thyroid, Imaging Recording and Data System (TI-RADS): White paper of the ACR TI-RADS committee. Journal of the [place] [employer]: Volume 14, issue 5, [...] Percy Hopkins MD 04/29/23 1:59 pm Technologist: [facility] Coding Summaryon 01-10-2023 Coding Summary HTMLBase 64 BwhazwuzSZm9hMu+PGhlYW Q+EX0ETCWsF78zvXJxyB5h C4SDGRjCUgasLHZHGIwPHp KpasAqEN8yeRQdPPMh IC8+ZP2pJOJhYojhrGRhv4 S7eBB1X61ses4sLQqjzOS4 FIWmJpKuzppyq8khnBn0SI cuNmluOyBt LKPfyG24SWM8dT33Pe70nB VydMBji6juuEc4JxWxNHYj OHG4cIdbQKznx5CpIKNwU9 1yvEOnk6B5 RFQrkVkgfNYwZtTqsUH0rH 1eSKbhrhnla1ldefxsNim5 oa67zHYgj6Y0hDQ9Z1Voyw Y9IDZpxJNc OfgxvYLQiD1cqztjf4tjra dzZtNyFQNeFPs1WBs6CHDv tGahUnWfYI74GYR5BFRsyx YpA7MhPYGa wSnpJgE3x8S6Cz3NH4UYSr pqD4LODLJLVRbiaFZ+PC90 ds80F2SsMfkdDzs6OVLbMS S1oQX3lV6w MARgWFvfm9S6yMV9B3Vwjk Mcmx7em4uzDETrNWcrI11g uRXmk3U6BYApgKR3OOYmkB ejVkUumY04 Oyc+ZYKdmAdvr0XnJohcs6 cld1fzaEy1EkqtIVOtubYc eFjkDJS3m9MhZp5qXDHiwG F3kQC4bT1z FaGfVbV8FLpfQ550ShRlkC XkKfdeR77dH0HewAW+PHRy Onk3OPSmxHhhXE0hZ5SkFK RpbmctbGVm oUcyWC9hSROvnnzpWOYsiD 5pCTItG3k5YbJmRmU2CQtb G5KtYSGzdnctAl14mV8gAi UsNhM4EZpv B0KzfgS8KPNmvIWdZXdnFR M2E70fu5S5VKMsHBWaFUO0 dBX7aW6sbQpivjgflJGfpM sgdmVydGlj IFukKCauF699CVYigYzlWa NvZGluZyBEYXRlOiAgMDcv MDEvMjAyMzwvdGQ+PHRkIH J1bQywNNGf cLPjMQqhWe7gaHynsKgbFK 8xUMPrpomfRSLqvT6tTRHd lRLgoHrpWA1hJQQscdpmj7 43ScYjKJJ6 KQWupPLbM2ElfZ8hQoXhUW XoSVAgB2PrjFDhPGprU335 LTjdWfD7PDOnsbWvH1DrOT FsaWduOiB0 v4G8Vk3St9TtozndG3ZipG DvMkEhYwbfEVx5N7BlXrjq dHI+UU50HUBmQI76VRy2VY E3hQlzPHse NRDgL7GogG5zEuMtHGNaAP RkOyc+PHRhYmxlIHdpZHRo BOtbXCCrEtDscJiqWM9tXc 9yZGVyLWNv pLcbiHJkKvJmi1qcUUAkWO omHA8nnVblU0OxpVY7PCIs r1c6Tf58Z91vL4ClsYW+PG XytNO5sDB6 zR6bIvAbTkE8HCmlC288Li IxsGYiQcatx3enj4hdqHc5 PzT2ERJzviOebEvwODB4y8 KnOv90O85y IHdpZHRoPSIxNSUiIHZhbG clha7raO1zFi9+PGNvbCB3 tNL4hH8aNuClRyF3QKwgL2 49InRvcCIv Pjunt7uzs4jwtPy2QjHyEA ZflxEfnYelOVU1f9GwPl05 W4LhuZnkx3RhYjt6is21uR Agg7V8tUN9 E0SyWCElvxgmsNZnrPlkXK 2sKSFvakifAYXarP0iTPCu G3y9DpQbUgB2XSenU8Kssn N6TWYfzPYy IBNvvOHVsQ1apezoy9qvtp nhGwRxTYHzEMm7IXc3ZEEk zTyhHeVzMAX2OmM5XMC1eB ZfbX5rvDwi yaaveO5hNte+NMV7gQVlqR NDLZ1zVzqcwWD+PHRkIHN0 iQpaUPuhBPAdvM6kTZUlU5 t7OjAqBeF2 DOglJ1YidmR3AKWodSTpRU SiiFTZhW7zvrjeu8hbklhh GmYkNWHsPCm3XEv9AAVzxA duOiBsZWZ0 RkT3XWK9kVKftB0gyXujdz ozyH7eRju+QmlydGggRGF0 DOq9Q2HuKop9VUJnwPilHG 0ncGFkZGlu Oz2tqCypqThnMT7rMRYntg otp094VxOnk8awBETmtNPh SKicBGI2S37sw2L2HMOkSO WmDRI1rRJ8 nI7zfFclxaxyeARvjZviil QgwMpuGTxeTNefA616FXSj dHymOcPrTDj7B9QzLij9QI DrxTvsQS7e kPAdMCrlSn4heCbjdOwfQT 0aXLZxnjboe704XpMyx5pr TMZdsNLwKYewQQG8R37kx5 V8PHSyKJSu QCB5bVC6mA5prCthqiamdJ VmdDsgdmVydGljYWwtYWxp J124HUCihRufYiBoeTm3N4 BbCtc3QDKl dRzrXZ2jqNBkIRmeJw6wvO adjGiqBR0kFDBuhzyqd811 WmBko0isZIRxpRCnDIhvFE C5G92ps0I3 FWXoPNPjRKU5aJW0uE7ssI lnbjogbGVmdDsgdmVydGlj XCfbJMzsZ904KUPmaDehRd BhdGllbnQg PKpmXFx2K8KqNgoqpZC+PC 26CWIyYM66gDVvkDCqh7sy dCq9PcTiBXDqEAW7yPnoOA obr1TfWBYq B61ltZRkm8W5GAZtzUxkhJ HmFoWmjCF0pO8sHIugrdzq g0areixbEfcbf5wgjx63rS 21I39lGVob ZHRoPSIzMCUiIHZhbGlnbj 2uoO0uVx5+HKExgFF7eBO2 nX0gHSBxSdH6CBumK959Py RvcCIvPjxj u5dig7fcnAe4PyL6QDObhm JflJlcSYE0a8ZzFq51D31t IHdpZHRoPSIyMCUiIHZhbG nwur2fpM5r Ii8+DSZplDV0fSB2wR2vGe YvGzW1KPnpB180GcCubVAc WkyyP17qI1WihQI+PHRyPj z5NQNmtDbj GL4bkAJcRUpuQd3oQFR4Mt TuKrRhAJjkO7TaUSBgalyc myltqUQ4GPMbFSIcwR92Am 9udDogMTBw vOLZpG4qfqspl5goqtxyQm UvRCCwZUc2WFk7AMJvwEqc BqIfDYR7YlL7OVZ0tPXriD 1hbGlnbjog tD5tI8VdNAVvirtrJj12zI 9vJvJpEfQ3NQzjMzl+V0lM A0xULdqrPPECD7PqSU3XHG 55ZN00zXZg l1Y7iWW2I4SaQCVniocoaa xzmIH4ERJeTWPljJ90nDAj RGzvJz4av0R5b779KJQqNZ BolH00Zj4c xWooFGNagZKEaS0izhgjw7 sgzyxgUbAxUWAgDOb5CXq5 ZCAjbUsqZeLaIYM9FrS8IN W8eKGpnD7y eGigebibmD9lLqr+MDMvMT VrOBy4EsbgxPO+PHRkIHN0 xHryNVffIIWwhU3iFFOdQ3 p5ZfVrTuH3 OQfgW5XmLVPpdydyWt65rK 5aMnRjUdI3MKlcK4WtckX7 RHHinAJyROszDKO4F73wy5 J5RMDmPFRw RRL2zBU0xY6cnLqgoqyjvK VmdDsgdmVydGljYWwtYWxp C051IHWpoDciZfV2HAmpCT JsKV36PA45 eYBph4D5hEX8H9PuQPShmi pcygaaqBY4RGRxTAZnhR64 oZHgWFcfBl3zg2Z7y870LE BlTSBboG33 Jx4qqLenSIWsgWGMpD4kph atd2falllyPsNnORAuANo6 KIu2IZUfvZcpXcRnIIU9Eg W7TSX1gEXo yT3cmHkwtqyjmQ3zYyj+Rk HENDqUZQ76XO11gVRqh7K4 nOV4P5CaJFNrftdxtmdqyM J2ZFRoFYRq jG80gVIeDPltUi5np1T2e4 44KRYpCGFtdZ96Yq7gkLmt GJBtsRGHwA0hjhlgg2wzdy ogIzAwMDAw YGe5SAa8SSYgnTrvTvJfTQ V4CsF1NBL3jIVzeP8ihNjg fybpoW9uQny+K6E0E6AyNz wvdHI+PC90 YXCgNM31bGYqpKWlg5qenW u8KqAuDWAiGDI2qBsjTCbn i8LmNXJfA39kqSHik7U5RL NvbGxhcHNl PhPdiRX2hO6oDEbnfavaf0 bzknnvAiexd0dqtl32jJ81 K24lNZwxNEZxVJOxGHOoXE MzdNzcmr6t tF1mKy8+IHVmqQU3xZH8cL 1dNkRyRaH1AQuxA939OkCz lNUiWrbrx6wby0zocQk0Go IwJSIgdmFs fElvAMP6l4NgUo86F73cAB dpZHRoPSIyMCUiIHZhbGln rr9kzR0hRg3+YF4zy2kfav 12oF89wDA+ UDVhICW9aLxpYChbSALxxC 9iPEzaNpH2NPZvEeRmzH89 zCCqJRgnJf1vbUhtxWggKY 4wNTBpbjtm g121KkBff0zkZRGcaFLoPF huSXP4Y50al2Q6GKJaJFNo DMX1zLN9vN7bbZvjvtbwxR VmdDsgdmVy lNctTNfvKQzaU598ZTXbeE clJiDxjXHiI7exozFNDX8k OjwvdGQ+XAEjHZX6bNtaXK fzZFCdxM3v UGUjO4f8CzLtVxB5VRzeB1 ZiirG9ZQNhvPOjJSSzaYGW bF6adjbyq7jcgxwlEpTzTD VyTBj1FUl2 SUZacOjpXyAjXCV7DsL0RG P1gHZruI7bqQgrezgmxQ4j Oyc+RklOOjwvdGQ+PHRkIH A9sGcxCLbe OQHuzW9pZAUqB0v2NqQhSq K8PHtaA0RrovD5MWAkvMZn NFPxhNCXbW5irxuyz7lcxz ogIzAwMDAw WVv4KIw5UJFfaEcyBbIdYW K0EwG8QRX1wQTtlZ0btGjg ifzifS1zIil+TVJOOjwvdG Q+PHRkIHN0 iZbiTOrgQZLlpA3lLOIhQ4 p9SnJbVfV0OVkwV4HqkmM5 INXzpPJbSINokYPTgN6voy wvb0uruyws NzIkUVBiVWx2DIg1KZUmxL boFdYdBHL2GeA6AVS4oTZb sY5koUgiaqchwK0zJzw+UG J7OZM5SV50 OF65Z6RlUawifREflRG+PH RhYmxlIHdpZHRoPScxMDAl AwLhfRciZS3tUn2dPZCnFD NvbGxhcHNl OiB (more content not included)... Normal [facility] ED Clinical Summaryon 2022 ED Clinical Summary [facility] ? Urgent Care [address] [place], [place] [id number] Clinical Summary PERSON INFORMATION Name: BRAULIO CHAKRABORTY Age: 27 Years Sex: FEMALE : 1995 MRN: Acct#: Visit Reason: UC - Eye Redness; BILATERAL EYE DRAINAGE Arrival: 01/05/2023 09:44:09 Discharge: 01/05/2023 10:25:00 LOS: 000 00:41 Check In: 01/05/2023 09:44:09 Checkout: 01/05/2023 10:25:00 Address: [address] [place] [id number] PCP: Azael LOPEZ, Alfonzo Sumner PROVIDER INFORMATION Provider Role Assigned Unassigned Kalpana Stover FOUNDRY TENDER Nurse 01/05/2023 09:53:37 Cuong Cárdenas ED PA [...] Follow-Up: With: Address: When: Alfonzo Addison MD [address] [place] [address] Comments: Diagnosis is bilateral conjunctivitis, [...] verbalizes understanding of instructions given Comment: Normal [facility] ED Patient Summaryon 023 ED Patient Summary [facility] ? Urgent Care [address] [place] [id number] PATIENT DISCHARGE INSTRUCTIONS Patient Information Name: BRAULIO CHAKRABORTY Age: 27 Years Date of : 1995 Reason For Visit: UC - Eye Redness; BILATERAL EYE DRAINAGE Arrival Time: 01/05/2023 09:44:09 Primary Care Physician: Alfonzo Addison MD Attending Physician: Howell PA, Cuong R. Comment: Patient Education With: Address: When: Azael LOPEZ, Alfonzo Sumner [address] [place] [place] [id number] Comments: Diagnosis is bilateral conjunctivitis, this is [...] diet. TENORIO (more content not included)... Normal [facility] Urgent Care Recordon 023 Urgent Care Record [facility] ? Urgent Care [address] [place] [address] PATIENT DISCHARGE INSTRUCTIONS Patient Information Name: BRAULIO CHAKRABORTY Age: 27 Years Date of : 1995 [facility]: [id number] Reason For Visit: UC - Eye Redness; BILATERAL EYE DRAINAGE Arrival Time: 01/05/2023 09:44:09 Primary Care Physician: Alfonzo Addison MD Attending Physician: Cuong Cárdenas Comment: Visit Diagnosis: Diagnoses This Visit Bacterial conjunctivitis of both eyes (H10.9) Elevated blood pressure reading (R03.0) Other specified bacterial agents as the cause of diseases classified elsewhere (B96.89) UC - Eye Redness ([id number]) If you received any narcotics, sedation, or [...] legal documents With: Address: When: Alfonzo Addison MD [address] [place] [address] Comments: Diagnosis is bilateral conjunctivitis, this is [...] and treatment you received today in the [facility] were for an urgent problem and are not intended as complete care. It is important for you to follow up with a doctor, nurse practitioner, or physician?s human resources assistant manager for ongoing care. If your symptoms become [...] so we can reach you if necessary. [facility] has provided you with a complete list of medications post discharge. Please inform your abstract clerk/provider of your visit and for further instruction on these medications. Any specific questions regarding your chronic medications and dosages should be discussed with your primary care physician(s) and/or pharmacist. New Medications [facility], [address] [place], [place] [id number], [phone] ciprofloxacin ophthalmic (ciprofloxacin 0.3% ophthalmic solution) 2 [...] 122.47 kg B (more content not included)... [facility] Coding Summaryon 09-15-2022 Coding Summary HTMLBase 64 ZatigaccYBm2zKi+PGhlYW Q+AY8ZLEDsN16ryLApxK8Q W4jHBM4TVMEKDCMGDW9GPV 6xfQJ2ULjtY7JegnFh SlgmjHAyMX22RYq4LYL0pY skSElmgI4rtTOrM7t8IeLv OM29iN75NIhcHXVyNxG0Fr ZpbjsgbWFy D9mySgUwoESeOaw+PHRhYm xlIHdpZHRoPScxMDAlJyBz mFdoNP3kBh2oFAVoJRVerI xhcHNlOiBj z3viBRFsWMedAN4qjLuzB1 BeaZL6MHTkd1f8Uh70sEI+ OFDtHHW6vMreGFync083Ro Dwt3pjKXG1 yWLyDAeeULD5H38eu2E5IM WxPIQjVUE9lZR2gJ8yfEjm zfffK6KazYEbDpD2MTE4jX JwzS3vzFad ncyvfN6sHwp+F14DMA7HBJ NCUM4IBhy3N7CjErwntEW+ TX79ZKFdYV75hISpaVCsa5 zbxEc5NwUy MJUdWSJ8xIssFTewj1NnGD ZtT85ksTPgr9V3PCUjuOaa vKInCcTtpHK0iJ7iVPkekl vmn0wvsdmb Crrce9itce13jW21M02lOB okCLUdBYQ0JNYtHZHvqTgw iu6tfK7wKh4+LJrcr7dzt5 cxyCk3HeBn EAIjfwXzfQbkRFK7r5PfCk 36K1OvfHnpg1JfSmx8wl64 pIDwm7Y5gAX6GXknETFuxJ 7uTKvbSeR8 NQUlKoLcnW96jVBnUDilMq 7slOxnjRirFL6hBQMlgtls XTBzuP9qUOFohPChmUhbCF 4wNTBpbjtm n505JbWeSSO9HISphKPjP3 GeuS7hRaMvRGWiBWInT7Dh cNMqODqsT857IXzsZuS6QW IzfcTnS4Dh TZKhwGxaXyM7t4A6Uw4Vi8 VjpxkzXHN5UZueZQMtRoN6 SaFgUyR3G2BsLcn5BKEmkO qlLG1nG2Jz YWIoezbdgejhtCL5FHRzIZ WxqX74jVDjDGeqIj0ps2F7 d759PXHpWINpmR93Fw7lmK ogMTBwdCBU nE1pndvbl1mqcnxfApDdRH NrEDu8XHl5DZPnfMclAiGa LWO7XnK7EWB4hQOvyK3tzG srkeyqlT4v Oyc+Y70epA0wTZA2VTY3gq lwCPBhntKpAH82RE95U2Ob PjwvdGFibGU+PGRpdiBzdH fbFC9wDmFs l7cak5DtZUasR6LkWMVnFN veUlv4YIPiNKH3rAZ0aC8r VBWhIProx4W0hZU8L7Dmmw Qyul6ak6hp QPSlFXqnZ56azQVcm3X0PC ImgIO5OCPicOmcOrOhjA13 Oyc+RTXjfXyxu6LnFbicj1 yea8cgzNa2 CjXzFXIxzaRzbLstFVF1p0 MwJq54I90vAAmdJFAwGDKf WWImVJWdcEmivm9plM4cQb 8+PGNvbCB3 wRK0lQ1uJSFgKgX5OJshN8 90GsYbePTyAdfus9myh3vq oTo0YaYxLRVqjwRnyQddVF M5h8AuJg77 W82sWCehZRWzLXGpAEQpEO UtoSydbe2sjA3qNz3+PC9j c5xvzj61iG37xHJ+PHRkIH Y9sKynTXhe OFEhfY2jYLopRbU0LOYuKk DwaN67jIXfLZfgTx4bsRox fTubMF1lZYVfxqjtp819Ml Lkq4ywWGFm zTZdTCyoDHW6I56yd7Y4KX ZqDRSyXKQ9gFS7gQ1doYrj bjogbGVmdDsgdmVydGljYW dbPEopM125 IHRvcDsnPlBhdGllbnQgTm FkTUg7V8TrZta8FCZtqSof AP6chSLoHTvmTp4vfFllqH gxWZ8zWLJm bogth386SxMkw3oeXHAytK MmWWznENG0K41yg4Y1QTWq LSHnOTW0eMF8aF1oqDvjqs ogbGVmdDsg wkEocFhrXYovEDiqH486YH RvcDsnPkJpcnRoIERhdGU6 TY06KK91eTTwy1U0cGK6V1 BhZGRpbmct avqmzBY7QCCqXHPcrM14Vv 4neSacLv5lYKOeRUC8ZGLh bSLhF9DyeN3kNbPtCSEkAE EnA5LvlAXt IXbcQ350XGyoHeE7IAYyry KuV3AbXAXvyAzrMxI1q5N2 Xk0YD9E2PO44LA96qMNvp2 D8nPI4W3Af JBJqeckfxxlkmLT0NSBuYO VheL61Tg3hpSuzMj2nSVTh YUM9FNWemDBkC2XzbV5jKj AjMDAwMDAw C5XzqWXjCPbpS243SPziFv W1HBEoccIdD8ZxLTPmcPfu QfA2m0H2Ce2GTCm7BF98HN 84nCAtg6D5 eSO4K9XtAEZvqepirqobcZ T3XDBgTDAzlL32Nn8xtDmy Ni2sWCBzENJ0TKQulQUzV0 FilI3eGuAo KCXvVDWiN0QgxJRaZFngV2 48WHsmSuB5UAFrojFqU2Ra DVTzrRmmNsV4b5J1Ns6YGL TbWM50DKH6 aYO7UD13IW81N0TvLeuolV FibGU+PHRhYmxlIHdpZHRo GVpjZNHoUpPklQrpLO6sCa 9yZGVyLWNv oHdyfHVcErAud3biAMWdBI mkBN9sjMjxZ3TebBU2CLLr f6f1Hq60W78jT2OrlBL+PG CxqXC3rYP4 lN6nWyDkQuR7BCtqY895Ho XlrJApBmhhc3tqu2sllOv1 VfN1ATEzjnPhaVtiYWC3t1 UcWo96O88t IHdpZHRoPSIxNSUiIHZhbG kwms7hsI1uDi8+PGNvbCB3 jQW6hL4fHhJqYbU3OFxlP9 49InRvcCIv Ioera7usc5hikPh2SeDwQL ZbwqUirBjrOJR0j7OePc78 C8OiiHuzg7AhYoe9ca03qG Nrg9G5eQE1 M3LkGBNbsfhotZHuwLklZI 0mZTArcdsdJWXbiP8dDPRb O8o0MzRrVcZ9QIvfB6Tryu O7XEXryBWm ASojCNI1L12kw7G6VRJpYS AhGNL4wDP7oI5rrDhdfyiu bGVmdDsgdmVydGljYWwtYW aiD171QWSx aZxrYFDygI9aPLQzuMAjlP luYH3iIHIdqcorZiiMOOcT TlMsIFBBSUdFIEFOTjwvdG Q+PHRkIHN0 zQunKNcsQJYdfN5lTXCdZ8 p4IhYbGbE0MKfpZ2RfJUHj vzxrZb69mH7xTdPvWbI6BN egB5CkseQ3 VHUwuQWuWWztBVU8H76ii5 V1NMDmUNDvQFP9mVN7fK5p bGlnbjogbGVmdDsgdmVydG ljYWwtYWxp E613VFAqaSdvZnYyMeQdIe R7OSb4U3RtSvd9QRFgnLyb US5ipWPoFVjwVe6xoBfzuR hcHP9rQLZh xvdhBOUtbX5mUIPpjQWzvL zxNK2xYQIahgttn849CrEp TXX2ILJrvXPfK1IakV3dCn AjMDAwMDAw H5JnhPYuWYshD546HFxbCf Z8NROhxuMqB6AgUMPwrXtg HiM5i7N6Zk4fCHNQJUBkfz wvdGQ+PHRk EDX6zFxbXWucATEvkY1mRM LwE0i6GuZrXdA5OWzrF5Cx DCTgetdzAq13sG3iAeXoXh Y5CDjgU8Wx ndX8FMXhjFBePCtfCLP7J0 1ph4F5ESJyXHAbMAJ8cJE7 qR7sxOivacqgxPKsdOasyf VydGljYWwt ZIyhB484EUDmeTefXfIOQO FMRTwvdGQ+IHMaHQW2jBzh IAkuAFWsbN8pYYWeO8r8Nr VxXpU2COlk C0WqROEudlvuJq25hG2oVa JqWhA0REonB5IdigP7ECSv yPLdJOptVHQ6T65go0Y9FQ MwMDAwMDA7 lMQ6aL7fdNttyzaecLHjbL xhkcSxcZmmLHaeOUzoN949 UFApsRrqBa6BVN79IT19W3 RyPjwvdGFi bGU+PHRhYmxlIHdpZHRoPS chRIIsNrOtsQchMF9cPk1k ZGVyLWNvbGxhcHNlOiBjb2 xsYXBzZTsg BK4wzXizE3ThbEL0SQQfp3 r9Qt74A60mY9BusDT+PGNv kRG1qLU5iQ8lKxPlRxF8DJ wlX427YpHk cZMsYdgxo5jms2gysFr6Cg FhINUymmLzaHljIME4z5Gp Ov08K29aCElhICSdFNCtFX UiIHZhbGln ul9uhS9vPn1+OOUirFK9wI W1qM7aOiBjBhR2FXjdH015 HyFqjVArAjceS76iN1KhoC A+PHRyPjx0 XARgvHebZL2gqFDaTAtpMk 8fCCW1HkMjJtAwLLujK0Jh NPFwyhghswahxTT0MKZxUU WetP69Or4q sPffLm9tUURgRBZ5SVZhxX BnZ9OwxD9qNtAoFINmRYIm X5JqbOAqZWscL416XVqqNh W4JZQupiXv R9TlNPXqnMcgIuM2d6X6Sp 5XqQadmTQxMH7uUhOuTQe9 J6VuIjk0UFKbtOyeVL9isV NiRBykRq7k rHwreDazSG2jKVGyqzong6 38HrFye0scQPIrbANhDXvq EMF0U75iq1K3FMGwCGYqMD Q0dUT1lK0r bGlnbjogbGVmdDsgdmVydG yhYJtuFGerP191OULamQnb EcPUMys7Y1AjIbx6QPCfuQ pfLZ0prFWz EMfxNu9qrAsqoJvjWX1qCW Xcfipif105HvObh2bzQREw vKDsDVmaCFA9B98rf2L3UP MwMDAwMDA7 nZE9dJ2mmDhccbcenDGujK tzjfAzbQprLIfoIQevS476 ZEZmkOgoGb1SAkw5S3PdMp j9HFDflEcu EP3ohHCiTRycBo3vrEtbtM hoHG2jOYFuyyimt315QvYr h8ocEKIauDKlUAhdQVW9L0 7ty6D3UDRd NXYoVQA0hIY3rL1pdJuigj ogbGVmdDsgdmVydGljYWwt YZslH602BEFmaBwpBrPmnC VyOjwvdGQ+ JS51mw83P2JwMqzdXfm7WO BwNUG3wNA9vA5cJHZvHCgi h9N1rSN5E5UzdgQpdv0qb3 xsYXBzZTog Y29 (more content not included)... [facility] .QC SARS-CoV-2 (COVID-19)/Fl u/RSV (GeneXpert)on 09-08-2022 Internal Control Pass [facility] Comment on above: Order Comment: Order ed by Ras.[[email or web address]] Performed By: #### 7 [id number], [id number] ####[facility] (DEFAULT)[address] [place] [address] COVID/Flu/RSV (GeneXpert)on 09-08-2022 Flu A (GXpert COVFLURSV) Negative Normal Negative [facility] Comment on above: Performed By: #### 7 [id number], [id number] ####[facility] (DEFAULT)[address] [place] [address] Flu B (GXpert COVFLURSV) Negative Normal Negative [facility] Comment on above: Performed By: #### 7 [id number], [id number] ####[facility] (DEFAULT)[address] [place] [address] RSV (GXpert COVFLURSV) Negative Normal Negative [facility] Comment on above: Performed By: #### 7 [id number], [id number] ####[facility] (DEFAULT)[address] [place] [address] SARS-CoV-2 (COVID-19) RNA KALE+probe Ql (Unsp spec) Negative Normal Negative [facility] Comment on above: Result Comment: Perf ormed by PCR methodology. Performed By: #### 7 [id number], [id number] ####[facility] (DEFAULT)[address] [place] [address] ED Clinical Summaryon 2022 ED Clinical Summary [facility] ? Urgent Care [address] [place] [address] Clinical Summary PERSON INFORMATION Name: BRAULIO CHAKRABORTY Age: 26 Years Sex: FEMALE : 1995 MRN: Acct#: Visit Reason: UC - Sinus Pain or Congestion; UC - Cough; COUGH, CONGESTION Arrival: 09/08/2022 13:55:11 Discharge: 09/08/2022 15:23:00 LOS: 000 01:28 Check In: 09/08/2022 13:55:11 Checkout: 09/08/2022 15:23:00 Address: [address] [place] [address] [place] [address] PCP: Alfonzo Addison MD PROVIDER INFORMATION Provider Role Assigned Unassigned ABRLI ARTHUR ED PA 09/08/2022 13:58:09 Dakota Crenshaw RN ED Nurse 09/08/2022 14:02:32 VITALS INFORMATION Vital Sign Triage Latest Temperature Tympanic Temperature Temporal Artery Pulse Rate O2 Sat 98 % 98 % Respiratory Rate Blood Pressure /99 mmHg /99 mmHg MEDICAL INFORMATION Medications Given: Allergy Information: traMADol; Contrast Dye; Toradol; ketorolac; azithromycin PHYSICIAN DOCUMENTATION DISCHARGE INFORMATION: Discharge Disposition: Home Discharge Location: Home PATIENT EDUCATION INFORMATION Instructions: Community-Acquired Pneumonia, Adult, Txgg-zl-Snra; Hypertension, Adult; DASH Eating Plan Follow-Up: With: Address: When: Alfonzo Addison [address] [place] [phone] Business (1) Within 3 to 5 days [...] verbalizes understanding of instructions given Comment: Normal [facility] ED Note - Physicianon 2022 ED Note [...] All Problems (Selected) Anxiety / SNOMED CT 31694970 / Confirmed Depression / SNOMED CT 79577108 / Confirmed High blood pressure / SNOMED CT 2745662730 / Confirmed PCOS (polycystic ovarian syndrome) / SNOMED CT 215251484 / Confirmed Migraine headache / SNOMED CT 98100232 / Confirmed Insomnia / SNOMED CT 826549558 / Confirmed Seasonal allergic rhinitis / SNOMED CT 202123022 / Confirmed Bronchial asthma / SNOMED CT 662064594 / Confirmed GERD (gastroesophageal reflux disease) / SNOMED CT 244568352 / Confirmed Obesity / SNOMED CT 3553404362 / Confirmed 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 -Acute distress: No -Vitals: reviewed. SKIN: -Gross abnormalities: No EYES: -EOM intact, LANNY: -Sclera conjunctiva: Unremarkable. ENT: - Normal pharynx pink and moist. NECK: -Supple (yhcy-ww-frwxi): non-tender. CARD: -Rate and rhythm: Regular RESP: [...] and Plan Assessment and Plan: Diagnosis: Pneumonia (PMA51-BL J18.9), Elevated blood pressure reading (SNC63-RF R03.0). Orders Orders Laboratory: SARS-CoV-2 (COVID-19)/Flu/RSV (GeneXpert) [...] on: 09/08/2022 15:44 EST] ABRIL ARTHUR Normal [facility] ED Patient Summaryon 023 ED Patient Summary [facility] ? Urgent Care [address] [place] [address] [phone] PATIENT DISCHARGE INSTRUCTIONS Patient Information Name: BRAULIO CHAKRABORTY Age: 26 Years Date of : 1995 Reason For Visit: UC - Sinus Pain or Congestion; UC - Cough; COUGH, CONGESTION Arrival Time: 09/08/2022 13:55:11 Primary Care Physician: Alfonzo Addison MD Attending Physician: ABRIL ARTHUR Comment: Patient Education With: Address: When: Alfonzo Addison [address] [place] [address] [phone] Business (1) Within 3 to 5 days [...] these instructions at home: Medicines ? Take diui-ucl-umswjmv and prescription medicines only as told by [...] of age (more content not included)... Normal [facility] 023 Urgent Care Record [facility] ? Urgent Care [address] [place] [address] PATIENT DISCHARGE INSTRUCTIONS Patient Information Name: BRAULIO CHAKRABORTY Age: 26 Years Date of : 1995 Reason For Visit: UC - Sinus Pain or Congestion; UC - Cough; COUGH, CONGESTION Arrival Time: 09/08/2022 13:55:11 Primary Care Physician: Alfonzo Addison MD Attending Physician: ABRIL ARTHUR Comment: Visit Diagnosis: Diagnoses This Visit Elevated blood pressure reading (R03.0) Pneumonia (J18.9) UC - Cough ([id number]) UC - Sinus Pain or Congestion ([id number]) If you received any narcotics, sedation, or [...] legal documents With: Address: When: Alfonzo Addison [facility]. [place] [phone] Business (1) Within 3 to 5 days Comments: Follow-up primary care provider for reevaluation next few days. Continue with supportive care plenty of rest and fluids, antibiotics and probiotics as discussed. Return to the emergency department for any worsening issues such as high spiking fevers, trouble breathing, or any other problems. Medication Information: The exam and treatment you received today in the [facility] were for an urgent problem and are not intended as complete care. It is important for you to follow up with a doctor, nurse practitioner, or physician?s human resources assistant manager for ongoing care. If your symptoms become [...] so we can reach you if necessary. [facility] has provided you with a complete list of medications post discharge. Please inform your abstract clerk/provider of your visit and for further instruction on these medications. Any specific questions regarding your chronic medications and dosages should be discussed with your primary care physician(s) and/or pharmacist. New Medications [facility], [address] [place], [place] [id number], [phone] albuterol (Ventolin HFA 90 mcg/inh inhalation aerosol) [...] Comments A (more content not included)... Normal [facility] XR Chest 2 Viewson 3 XR Chest [...] MD 09/08/22 2:48 pm Technologist: TARUN ERICKSON [facility] MRI KNEE WO CONTRAST LEFTon 04-18-2017 [facility] [address] [place] [address] ========Patient Name: BRAULIO CELIS : 1995Sex: FAge: Race: WhiteMRN: [id number]. Location: LPOPPatient Status: DVisit #: [id number] Date: 04/18/2017 8:15:00 AMCompleted Date: 04/18/2017 08:53 AMRequesting Provider: MORIAH BOND Attending Provider: Report Copy To: OLMAN VELA Signs & Symptoms: Internal derangement knee, leftHistory: Order in RIS, No FB per mother Auth # [id number] Valid 04/06/17-05/06/17. Auth scanned into RIS.Comments: Exam: MRI KNEE WO CONTRAST LEFTAccession #: [id number] MRI KNEE WO CONTRAST LEFT 04/18/2017 8:53 [...] 16. Electronically signed by:Shiv Saba. Transcribed by: [email or web address], User Resident: Electronically Signed by: SHIV SABA @ 04/20/2017 02:46 PM Normal [facility] Encounters Encounter Date Encounter Type Care Provider Facility Start: 06-18-2023 End: 06-18-2023 ambulatory JACKY FITZPATRICK Not Available Start: 05-25-2023 End: 05-26-2023 ambulatory Alfonzo Addison MD Facility:[facility] Start: 04-29-2023 End: 04-30-2023 ambulatory DINORAH GILBERT [facility] Start: 04-14-2023 End: 04-15-2023 ambulatory Alfonzo Addison MD Facility:[facility] Start: 03-05-2023 End: 03-06-2023 ambulatory Alfonzo Addison MD Facility:[facility] Start: 01-05-2023 End: 01-05-2023 ambulatory Alfonzo Addison MD [facility] Start: 11-24-2022 End: 11-24-[address] [facility] [place]: Start: 11-18-2022 End: 11-19-2022 ambulatory Alfonzo Addison MD Facility:[facility] Start: 09-16-2022 End: 09-17-2022 ambulatory Alfonzo Addison MD Facility:[facility] Start: 09-08-2022 End: 09-08-2022 ambulatory Alfonzo Addison MD [facility] Start: 04-18-2017 End: 04-19-2017 Ambulatory MORIAH BOND Facility:[facility] Payers Date Payer Category Payer Unknown [id number] 1995 Unknown [id number] 2.16.84 [id number] 1995 Unknown [id number] 1995 Unknown [id number] 2.16.8 [id number] 1995 Unknown [id number] 2.16.8 [id number] 1995 Unknown [id number] 2.16.8 [id number] 1995 Unknown [id number] 2.16.8 40.1.245353.3.579.2. 1995 Unknown [id number] 2.16.8 [id number] 1995 Unknown [id number] 2.16.8 [id number] 1995 Unknown [id number] 2.16.8 [id number] 1995 Unknown [id number] 2.16.8 [id number] 1958 Unknown [id number] Unknown [id number] Clinical Note 01-05-2023 Note Date & Type [...] wine (148 mL (more content not included)... [facility] Clinical Note 09-08-2022 Note Date & Type [...] skin, beans, e (more content not included)... [facility] Summary Purpose Family History No Family History Records FoundNo Family History Records FoundNo Family History Records FoundNo Family History Records Found Advance Directives No Advanced Directives Records FoundNo Advanced Directives Records FoundNo Advanced Directives Records FoundNo Advanced Directives Records Found Additional Source Comments INFORMATION SOURCE (unrecogn ized section and content) DATE CREATED AUTHOR 01/05/2018 [facility] DATE CREATED AUTHOR [facility]S ORGANIZ ATION [facility] DATE CREATED AUTHOR AUTHOR'S ORGANIZ ATION [facility]/20/2023 [facility] DATE CREATED AUTHOR AUTHOR'S ORGANIZ ATION 07/08/2023 [facility] FOR RECORDS PERTAINING TO PATIENTS WHO ARE [...] BE BASED ON THE PRIMARY CLINICAL RECORDS. [employer] provides no warranty or guarantee of the accuracy or completeness of information in this document.
[2023-07-22 11:43] LABS: Thyroid Stimulating Hormone 2.787 uIU/mL (0.358-3.740)
== END 2023-07-22 10:20 | disposition home or self-care (01) ==
LOC: LAB 10:21
PROVIDERS: PCP Family Medicine; Visit Provider Obstetrics & Gynecology
DX: R79.89 Other specified abnormal findings of blood chemistry (principal)
CPT/HCPCS: 36415; 84443

== ENCOUNTER 2023-09-13 09:58 | Observation (INO) | payer BC, SELFPAY ==
--- OUTSIDE RECORDS SUMMARY | 2023-09-13 10:02 | XMS_ITS | CCD ---
Author Name Unknown Address [email or web address] [place] [address] Organization [facility] Care Team Providers Care Die Holder Name Role Phone MORIAH BOND Unavailable Unavailable HOY MORIAH Unavailable Unavailable SELF, REFERRED Unavailable Unavailable RONDA MORIAH Unavailable Unavailable MIS, DR LIRA Primary Care Unavailable EMILI ., DR RICO Attending Unavailable EMILI ., DR RICO Consulting Unavailable EMILI ., DR RICO Admitting Unavailable Alfonzo Addison [...] Attending Unavailable Alfonzo Addison MD Primary Care Provider [phone] JACKY MOCK Referring Unavailable ALFONZO ADDISON Primary Care Unavailable YANELIS POSEY Attending Unavailable JACKY MOCK Referring Unavailable ALFONZO ADDISON Primary Care Unavailable ALFONZO ADDISON Referring Unavailable ALFONZO ADDISON Primary Care Unavailable JACKY MOCK Attending Unavailable JACKY MOCK Attending Unavailable JACKY MOCK Attending Unavailable Alfonzo Addison MD Primary Care Provider [phone] ALFONZO ADDISON Primary Care Unavailable STEVE ARREOLA Referring Unavailable Allergies Allergy Classification Reported Allergen(s) Allergy Type Date of Onset Reaction(s) Facility (2 sources) azithromycin Drug Allergy 0 [facility] Repository (3 sources) ketorolac; Translations: [Toradol] Drug Allergy 0 [facility] Repository (2 sources) traMADol Drug Allergy 0 [facility] Repository (1 source) Iodine (And Iodine Containting Drugs) Drug allergy (disorder) 5 [facility] Repository (17 sources) Azithromycin; Translations: [azithromycin] Drug Allergy 4 [facility] Repository (1 source) Contrast media; Translations: [Contrast Dye] Propensity to adverse reactions to drug (disorder) [facility] Repository (15 sources) Ketorolac; Translations: [ketorolac] Drug Allergy 4 [facility] Repository (17 sources) traMADol; Translations: [traMADol] Drug Allergy 4 [facility] Repository (14 sources) Contrast media; Translations: [DYE] Propensity to adverse reactions [facility] Ketorolac trometamol Allergy to substance 3 [facility] (2 sources) Other Propensity to adverse reactions [address] [facility] Medications Current Medications Medication Drug Class(es) Dates Sig (Normalized) Sig (Original) docusate sodium 100 mg oral capsule (13 sources) Start: 06-05-2021 take 1 capsule by mouth twice daily docusate sodium (COLACE) 100 mg capsule Take 1 capsule (100 mg total) by mouth 2 (two) times a day. 10 capsule 0 06/05/2021 Active escitalopram 5 mg oral tablet (13 sources) Serotonin Reuptake Inhibitor take 1 tablet by mouth in the morning escitalopram (LEXAPRO) 5 mg tablet Take 1 tablet (5 mg total) by mouth in the morning. 0 Active labetalol hydrochloride 300 mg oral tablet (15 sources) beta-Adrenergic Cheyanne Start: 07-20-2023 End: 07-19-2024 take 1 tablet by mouth in the morning, then take 1 tablet by mouth in the evening, then take 1 tablet by mouth at bedtime labetalol (Normodyne) 300 MG tablet Indications: Elevated blood pressure affecting , antepartum Take 1 tablet (300 mg) by mouth in the morning and 1 tablet (300 mg) in the evening and 1 tablet (300 mg) before bedtime. 270 tablet 3 07/20/2023 07/19/2024 Active take 3 tablets by mo uth in the morning, then take 3 tablets by mouth at bedtime labetaloL (NORMODYNE) 100 mg tablet Take 3 tablets (300 mg total) by mouth in the morning and 3 tablets (300 mg total) before bedtime. 0 Active levothyroxine sodium 0.1 mg oral tablet (18 sources) l-Thyroxine Start: 08-04-2023 take 1 tablet by mouth once in the morning levothyroxine (SYNTHROID, LEVOTHROID) 100 MCG tablet Indications: IUGR (intrauterine growth restriction) affecting care of mother, second trimester, not applicable or unspecified fetus , History of delivery, currently , 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 trimester Take 1 tablet (100 mcg total) by mouth in the morning. 90 tablet 10 08/04/2023 Active Start: 07-30-2023 End: 08-18-2023 take 1 tablet by mouth in the morning levothyroxine (Synthroid, Levoxyl) 75 MCG tablet Indications: Thyroid disease affecting (CMS/HCC) Take 1 tablet (75 mcg) by mouth in the morning. 30 tablet 3 07/30/2023 08/18/2023 Discontinued (Therapy completed) Start: 06-19-2023 End: 08-04-2023 take 1 tablet by mouth once in the morning levothyroxine (SYNTHROID, LEVOTHROID) 75 MCG tablet Indications: History of delivery, currently , 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 trimester Take 1 tablet (75 mcg total) by mouth in the morning. 30 tablet 3 06/19/2023 08/04/2023 Discontinued take 1 tablet by juany th before mealtime levothyroxine (Synthroid, Levoxyl) 100 MCG tablet Take 100 mcg by mouth in the morning. Take before meals. 0 Active metoclopramide 10 mg oral tablet (15 sources) Dopamine-2 Receptor Antagonist Start: 05-07-2023 take 1 tablet by mouth three times daily as needed metoclopramide (Reglan) 10 MG tablet Indications: Missed menses Take 1 tablet (10 mg) by mouth 3 (three) times a day as needed (as needed before meals). 30 tablet 2 05/07/2023 Active metoclopramide ( REGLAN) 5 mg tablet Take 1 tablet (5 mg total) by mouth in the morning and 1 tablet (5 mg total) at noon and 1 tablet (5 mg total) in the evening and 1 tablet (5 mg total) before bedtime. 0 Active omeprazole 20 mg delayed release oral capsule (15 sources) Proton Pump Inhibitor take 1 capsule by mouth in the morning omeprazole (PriLOSEC) 20 mg capsule Take 1 capsule (20 mg total) by mouth in the morning. 0 Active take 1 capsule by mouth in the m orning omeprazole (PriLOSEC) [address] capsule Take 40 mg by mouth in the morning. 0 Active ondansetron 4 mg disintegrating oral tablet (14 sources) Serotonin-3 Receptor Antagonist Start: 05-29-2023 ondansetron ODT (ZOFRAN ODT) 4 mg disintegrating tablet Dissolve 1 tablet (4 mg total) on tongue 3 (three) times a day as needed for nausea for up to 3 doses. 3 tablet 0 05/29/2023 Active End: 08-04-2023 take 1 tablet by mouth every eight hours as needed for nausea and vomiting ondansetron (ZOFRAN) 4 mg tablet Take 1 tablet (4 mg total) by mouth every 8 (eight) hours as needed for nausea or vomiting. 0 08/04/2023 Discontinued (Duplicate Listing) pyridoxine hydrochloride 25 mg oral tablet (2 sources) take 1 tablet by mouth in the morning pyridoxine (Vitamin B-6) 25 MG tablet Take 25 mg by mouth in the morning. 0 Active vitamin b12 1 mg oral capsule (2 sources) Vitamin B12 take 1 capsule by mouth in the morning Cyanocobalamin (B-12) 1000 MCG capsule Take 1 capsule by mouth in the morning. 0 Active Completed/Discontinued Medications Medication Drug Class(es) Dates Sig (Normalized) Sig (Original) buPROPion hydrochloride 100 mg oral tablet (1 source) Aminoketone End: 08-04-2023 take 3 tablets by mouth once daily buPROPion (WELLBUTRIN) 100 mg tablet Take 300 mg by mouth daily. 0 08/04/2023 Discontinued (Therapy completed) famotidine 10 mg oral tablet (1 source) Histamine-2 Receptor Antagonist End: 08-04-2023 take 1 tablet by mouth twice daily famotidine (PEPCID) 10 mg tablet Take 10 mg by mouth 2 (two) times a day. 0 08/04/2023 Discontinued (Patient Stopped On Own) montelukast 10 mg oral tablet (1 source) Leukotriene Receptor Antagonist End: 08-04-2023 take 1 tablet by mouth once daily montelukast (SINGULAIR) 10 mg tablet Take 10 mg by mouth nightly. 0 08/04/2023 Discontinued (Patient Stopped On Own) 24 hr NIFEdipine 30 mg extended release oral tablet (1 source) Dihydropyridine Calcium Channel Cheyanne End: 08-04-2023 take 1 tablet by mouth once daily, then take 1 tablet by mouth every twenty-four hours NIFEdipine CC (ADALAT CC) 30 mg 24 hr tablet Take 30 mg by mouth daily. 0 08/04/2023 Discontinued (Patient Stopped On Own) Problems Active Problems Problem Classification Problem Date Documented Date Episodic/Chronic Anxiety disorders (2 sources) Anxiety; Translations: [Anxiety disorder, unspecified] Onset: 02-12-2023 02-12-2023 Chronic Asthma (2 sources) Asthma; Translations: [Unspecified asthma, uncomplicated] Onset: 02-12-2023 02-12-2023 Chronic Esophageal disorders (2 sources) Gastroesophageal reflux disease; Translations: [Gastro-esophageal reflux disease without esophagitis] Onset: 02-12-2023 02-12-2023 Chronic Essential hypertension (16 sources) Essential hypertension; Translations: [Essential (primary) hypertension] Onset: 02-12-2023 03-01-2021 Chronic Headache; including migraine (2 sources) Migraine; Translations: [Migraine, unspecified, not intractable, without status migrainosus] Onset: 02-12-2023 02-12-2023 Chronic Hypertension complicating ; childbirth and the puerperium (4 sources) Chronic hypertension complicating AND/OR reason for care during ; Translations: [Unspecified pre-existing hypertension complicating , unspecified trimester] Onset: 08-04-2023 08-04-2023 Chronic Joint disorders and dislocations; trauma-related (4 sources) Unspecified internal derangement of left knee; Translations: [UNSPECIFIED INTERNAL DERANGEMENT OF LEFT KNEE] Onset: 04-18-2017 Chronic Mood disorders (2 sources) Depressive disorder; Translations: [Depression] Onset: 02-12-2023 02-12-2023 Chronic Other complications of (1 source) Obesity complicating , unspecified trimester; Translations: [Obesity complicating , unspecified trimester] Onset: 08-04-2023 Chronic Other complications of (15 sources) H/O: premature delivery; Translations: [Supervision of other high risk pregnancies, unspecified trimester] Onset: 06-19-2023 06-19-2023 Episodic Other complications of (15 sources) Hypothyroidism in ; Translations: [Endocrine, nutritional and metabolic diseases complicating , second trimester] Onset: 06-19-2023 06-19-2023 Episodic Other complications of (16 sources) History of pre-eclampsia; Translations: [Supervision of with other poor reproductive or obstetric history, second trimester] Onset: 08-04-2023 08-04-2023 Episodic Other complications of (18 sources) Poor growth affecting management; Translations: [Maternal care for other known or suspected poor growth, second trimester, not applicable or unspecified] Onset: 08-04-2023 08-04-2023 Episodic Other complications of (1 source) Endocrine, nutritional and metabolic diseases complicating , second trimester; Translations: [Endocrine, nutritional and metabolic diseases complicating , second trimester] Onset: 06-19-2023 Episodic Other complications of (1 source) Supervision of with other poor reproductive or obstetric history, unspecified trimester; Translations: [Supervision of with other poor reproductive or obstetric history, unspecified trimester] Onset: 08-04-2023 Episodic Other complications of (1 source) Supervision of other high risk pregnancies, unspecified trimester; Translations: [Supervision of other high risk pregnancies, unspecified trimester] Onset: 06-19-2023 Episodic Other complications of (1 source) Maternal care for other known or suspected poor growth, second trimester, not applicable or unspecified; Translations: [Maternal care for other known or suspected poor growth, second trimester, not applicable or unspecified] Onset: 08-04-2023 Episodic Other complications of (1 source) Supervision of with other poor reproductive or obstetric history, second trimester; Translations: [Supervision of with other poor reproductive or obstetric history, second trimester] Onset: 08-04-2023 Episodic Other complications of (2 sources) Thyroid disease in mother complicating , childbirth AND/OR puerperium; Translations: [Endocrine, nutritional and metabolic diseases complicating , unspecified trimester] 08-18-2023 Episodic Other complications of (2 sources) Abnormal ultrasonic finding on screening of mother; Translations: [Abnormal ultrasonic finding on screening of mother] Onset: 08-06-2023 Episodic Other complications of (2 sources) Supervision of other high risk pregnancies, second trimester; Translations: [Supervision of other high risk pregnancies, second trimester] Onset: 08-06-2023 Episodic Other endocrine disorders (2 sources) Polycystic ovary syndrome; Translations: [Polycystic ovarian syndrome] Onset: 02-12-2023 02-12-2023 Chronic Other nutritional; endocrine; and metabolic disorders (2 sources) Morbid obesity; Translations: [Morbid (severe) obesity due to excess calories] Onset: 02-12-2023 02-12-2023 Chronic Other and delivery including normal (2 sources) Second trimester ; Translations: [Encounter for supervision of normal , unspecified, second trimester] 08-12-2023 Episodic Other screening for suspected conditions (not mental disorders or infectious disease) (4 sources) Encounter for other specified screening; Translations: [Encounter for screening for cervical length] Onset: 08-04-2023 08-18-2023 Episodic Other upper respiratory disease (2 sources) Seasonal allergic rhinitis; Translations: [Other seasonal allergic rhinitis] Onset: 02-12-2023 02-12-2023 Chronic Previous (1 source) Maternal care for unspecified type scar from previous delivery; Translations: [Maternal care for unspecified type scar from previous delivery] Onset: 08-04-2023 Episodic Residual codes; unclassified (2 sources) Family history of other specified conditions; Translations: [Family history of other specified conditions] Onset: 08-06-2023 Episodic Thyroid disorders (1 source) Hypothyroidism, unspecified; Translations: [Hypothyroidism, unspecified] Onset: 06-19-2023 Chronic Thyroid disorders (13 sources) Disorder of thyroid gland; Translations: [Disorder of thyroid, unspecified] 03-01-2021 Episodic Unclassified (2 sources) Unknown / UNK(Unknown) Onset: 04-18-2017 Unclassified (2 sources) OB Reminders Onset: 05-11-2023 05-11-2023 Past or Other Problems Problem Classification Problem Date Documented Da te Episodic/Chronic Mood disorders (13 sources) Mood disorders Onset: 07-11-2020 07-11-2020 Other bone disease and musculoskeletal deformities (1 source) Chondromalacia, left knee; Translations: [CHONDROMALACIA, LEFT KNEE] Onset: 04-18-2017 Episodic Other complications of (20 sources) Disorder of ; Translations: [Maternal care for other known or suspected poor growth, unspecified trimester, not applicable or unspecified] Onset: 05-28-2021 05-28-2021 Episodic Other complications of (1 source) Maternal care for other known or suspected poor growth, unspecified trimester, not applicable or unspecified; Translations: [Maternal care for other known or suspected poor growth, unspecified trimester, not applicable or unspecified] Onset: 05-29-2021 Episodic Residual codes; unclassified (2 sources) Insomnia; Translations: [Insomnia, unspecified] Onset: 02-12-2023 02-12-2023 Episodic Results Test Name Value Interpretation Reference Range Facility No Panel Informationon 08-31 Unlisted lab test see scanned report [facility] Urinalysis macro (dipstick) panel (U)on 08-18-2023 Bilirubin, UA Negative Negative - 4(70) +++ mg/dL [facility] Blood, UA Negative Negative - 50 Izaaih/mcL [facility] Clarity, UA Clear [facility] Color, UA Yellow [facility] Glucose, UA Negative Negative - 1999(110) ++++ mg/dL [facility] Interpretation and review of laboratory results Abnormal [facility] Ketones, UA Negative Negative - 160(16) ++++ mg/dL [facility] Leukocytes, UA Trace Negative - 500+++ Susy/mcL [facility] Nitrite, UA Negative Negative - Positive [facility] pH, UA 7.0 5 - 9 [facility] Protein, UA Trace Negative - 2000(20) ++++ mg/dL [facility] Spec Grav, UA 1.025 1 - 1.03 [facility] Urobilinogen, UA 0.2 0.2 - 12 mg/dL [facility] [place] B Abon 08-15-2023 Blanquita tp. B1 <1:10 Normal <1:10 [facility] Comment on above: Performed By: #### U RTPRT #### [facility] [employer] [address] [place] [id number] Report Checker: MD Blanquita Barton. B2 <1:10 Normal <1:10 [facility] Comment on above: Performed By: #### U RTPRT #### [facility] [employer] [address] [place] [id number] Report Checker: MD Blanquita Barton B3 <1:10 Normal <1:10 [facility] Comment on above: Performed By: #### U RTPRT #### [facility] [employer] [address] [place] [address] Report Checker: MD Blanquita Barton B4 1:40 Normal <1:10 [facility] Comment on above: Performed By: #### U RTPRT #### [facility] [employer] [address] [place] [id number] Report Checker: MD Blanquita Barton B5 1:20 Normal <1:10 [facility] Comment on above: Performed By: #### U RTPRT #### [address] [id number] Report Checker: MD Blanquita Barton B6 <1:10 Normal <1:10 [facility] Comment on above: Result Comment: (NOT E) INTERPRETIVE INFORMATION: Coxsackie B Virus Single positive antibody titers of greater than or equal to 1:80 may indicate past or current infection. Sero- conversion or an increase in titers between acute and convalescent sera of at least fourfold is considered strong evidence of current or recent infection. Performed By: [facility] [address] [place] [address] Roofing Layer: Nikita Pantoja MD, PhD CLIA Number: [id number] Performed By: #### U RTPRT #### [address] [id number] Report Checker: Gonzalo Cain MD Protein S Ag, Freeon 024 Protein S Ag, Free 61 % Normal 55-123 [facility] Comment on above: Result Comment: (NOT E) INTERPRETIVE INFORMATION: Protein S Ag, FREE Patients on warfarin may have decreased free protein S values. Patients should be off warfarin therapy for two weeks for accurate measurement of free protein S levels. Decreased levels of free protein S are also associated with DIC, liver disease, , and inflammatory syndromes. Access complete set of age- and/or gender-specific reference intervals for this test in the [facility] Test Directory ([employer]). Performed By: [facility] [address] [place] [address] Roofing Layer: Nikita Pantoja MD, PhD CLIA Number: [id number] Performed By: #### U RTPRT #### [address] [id number] Report Checker: Gonzalo Cain MD Protein S, Antigenicon 08-14 Protein S, Antigenic 129 % High 63-126 [facility] Comment on above: Result Comment: (NOT E) INTERPRETIVE INFORMATION: Protein S, Total Antigen Patients on warfarin may have decreased protein S values. Patients should be off warfarin therapy for two weeks for accurate measurement of protein S. Access complete set of age- and/or gender-specific reference intervals for this test in the [facility] Test Directory ([employer]). Performed By: [facility] [address] [place] [address] Roofing Layer: Nikita Pantoja MD, PhD CLIA Number: [id number] Performed By: #### U RTPRT #### [address] [place] [address] Report Checker: Gonzalo Cain MD Antithrombin III [place] 08-12 Antithrombin III Act 114 % Normal 83-122 [facility] Comment on above: Result Comment: Patients receiving Hirudin may have a falsely decreased Antitrombin III Activity. Performed By: #### U RTPRT #### [employer] [address] [place] [address] Report Checker: Gonzalo Cain MD Lupus Anticoagulanton 2023 Dilute Madhuri Viper Negative Normal NLUP [facility] Comment on above: Performed By: #### L UPPRO #### [facility] [address] [place] [address] Report Checker: Gonzalo Cain MD Protein C Activityon 024 Protein C Activity 86 % Normal >80 [facility] Comment on above: Result Comment: Patients on warfarin will have decreased functional protein C/S values. Warfarin therapy should be discontinued for two weeks for accurate measurement of functional protein C/S levels. Artifactually elevated levels of functional protein C/S may be seen in patients receiving heparin,rivaroxaban,apixaban,edozaban,and dabiqatran. Decreased functionality may be seen in patients with abnormally elevated levels of Factor VIII. Performed By: #### U RTPRT #### [employer] [address] [place] [id number] Report Checker: Gonzalo Cain MD Protein S Activityon 024 Protein S Activity 54 % Low 59-130 [facility] Comment on above: Result Comment: Patients on warfarin will have decreased functional protein C/S values. Warfarin therapy should be discontinued for two weeks for accurate measurement of functional protein C/S levels. Artifactually elevated levels of functional protein C/S may be seen in patients receiving heparin,rivaroxaban,apixaban,edozaban,and dabiqatran. Decreased functionality may be seen in patients with abnormally elevated levels of Factor VIII. Performed By: #### U RTPRT #### [facility] [address] [place] [address] Report Checker: Gonzalo Cain MD Factor V Mutationon 08-11-19 24 F 5 SPECIMEN Whole Blood Normal [facility] Comment on above: Performed By: #### A PARVP, AF5MUT, APRTSF, ACOXAB, ACOXA9, APTMUT, AMTHFR, APROTS #### [facility] [address] [place] [address] Report Checker: Arben Carrington MD #### AT3A, PROSAC, HOCYS, ACARDA, FT4, PROCAC, TSH #### [facility] [employer] [facility] [place] [address] Report Checker: Gonzalo Cain MD FACTOR 5 MUTATION Negative Normal [facility] Comment on above: Result Comment: (NOT E) Indication for testing: Assess genetic risk for thrombosis. NEGATIVE: The factor V Leiden variant, c.1601G>A; [id number], was not detected. This does not exclude a genetic cause for thrombophilia. If this individual has had a previous venous thromboembolism, this negative result is unlikely to significantly reduce the risk for recurrence; thus, future clinical management to reduce recurrence should not be altered. This result has been reviewed and approved by Luly Haynes M.D., Ph.D. BACKGROUND INFORMATION: Factor V Leiden (F5) R506Q Mutation CHARACTERISTICS: Venous thromboembolism (VTE) is multifactorial caused by a combination of genetic and environmental factors. The Factor V Leiden (FVL) variant is the most common cause of inherited VTEs, accounting for over 90 percent of activated protein C (APC) resistance. Because the FVL variant eliminates the APC cleavage site, factor V is inactivated slower, thus persisting longer in blood circulation, leading to more thrombin production. Other genetic risk factors for VTE include, male sex and variants in antithrombin, protein C, protein S, or factor XIII. Non-genetic risk factors include, age, smoking, prolonged immobilization, malignant neoplasms, surgery, , oral contraceptives, estrogen replacement therapy, tamoxifen and raloxifene therapy. INCIDENCE OF FACTOR V LEIDEN VARIANT: Approximately 5 percent of Caucasians, 2 percent of Hispanics, 1 percent of Americans and 0.5 percent of Asians are heterozygous; homozygosity occurs in 1 in 1500 Caucasians. INHERITANCE: Semi-dominant; both heterozygotes and homozygotes are at increased risk for VTE. PENETRANCE: Lifetime risk of VTE is 10 percent for heterozygotes and 80 percent of homozygotes. 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 Legacy nomenclature: R506Q (1691G>A) CLINICAL SENSITIVITY: 20-50 percent of individuals with an isolated VTE have the FVL variant. METHODOLOGY: Polymerase chain reaction and fluorescence monitoring. ANALYTICAL SENSITIVITY AND SPECIFICITY: 99 percent. LIMITATIONS: Diagnostic errors can occur due to rare sequence variations. F5 gene mutations, other than p.[id number], will not be detected. This test was developed and its performance characteristics determined by [facility]. It has not been cleared or approved by the [place] Food and Drug Administration. This test was performed in a CLIA certified laboratory and is intended for clinical purposes. Counseling and informed consent are recommended for genetic testing. Consent forms are available online. Performed By: [facility] [address] [place] [address] Roofing Layer: Nikita Pantoja MD, PhD CLIA Number: [id number] Performed By: #### A PARVP, AF5MUT, APRTSF, ACOXAB, ACOXA9, APTMUT, AMTHFR, APROTS #### [employer] [address] [place] [address] Report Checker: Arben Carrington MD #### AT3A, PROSAC, HOCYS, ACARDA, FT4, PROCAC, TSH #### [facility] [employer] [facility] [place] [id number] Report Checker: Gonzalo Cain MD PT Mutation [id number] 08-11-19 24 PT [id number] VARIANT Negative Normal [facility] Comment on above: Result Comment: (NOT E) Indication for testing: Assess genetic risk for thrombosis. NEGATIVE: The Factor II, prothrombin Q97865K mutation, was not detected. Other causes of elevated prothrombin levels and hereditary forms of venous thrombosis have not been excluded. Recommendations: If clinically indicated, testing for other inherited or acquired thrombophilic disorders is recommended including DNA testing for the factor V Leiden mutation, measurement of total plasma homocysteine concentration, serological assays for anticardiolipin antibodies, multiple phospholipid-dependent coagulation assays for lupus inhibitor, protein C activity, protein S activity or free protein S antigen, and antithrombin activity. This result has been reviewed and approved by Luly Haynes M.D., Ph.D. 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 The expression of Factor II thrombophilia is impacted by coexisting genetic thrombophilic disorders, acquired thrombophilic disorders (eg, malignancy, hyperhomocysteinemia, high factor VIII levels), and circumstances including: , oral contraceptive use, hormone replacement therapy, selective estrogen receptor modulators, travel, central venous catheters, surgery, and organ transplantation. INCIDENCE: Approximately 2 percent of Caucasians and 0.3 percent of Americans are heterozygous; homozygosity occurs in 1 in 10,000 individuals. INHERITANCE: Incomplete autosomal dominant. PENETRANCE: The risk of thrombosis is increased 2-4 fold for heterozygotes and further increased for homozygotes. CAUSE: Homozygosity or heterozygosity for F2 c.*97G>A (X76452U). PATHOGENIC VARIANT TESTED: F2 c.*97G>A (D65066U). CLINICAL SENSITIVITY FOR VENOUS THROMBOSIS: Approximately 10 percent. METHODOLOGY: Polymerase chain reaction and fluorescence monitoring. ANALYTICAL SENSITIVITY AND SPECIFICITY: 99 percent. LIMITATIONS: Diagnostic errors can occur due to rare sequence variations. F2 gene variants, other than c.*97G>A (D98374D), will not be detected. This test was developed and its performance characteristics determined by [facility]. It has not been cleared or approved by the US Food and Drug Administration. This test was performed in a CLIA certified laboratory and is intended for clinical purposes. Counseling and informed consent are recommended for genetic testing. Consent forms are available online. Performed By: [facility] [address] [place] [address] Roofing Layer: Nikita Pantoja MD, PhD CLIA Number: [id number] Performed By: #### U RTPRT #### [address] [id number] Report Checker: Gonzalo Cain MD PT PCR SPECIMEN Whole Blood Normal [facility] Comment on above: Performed By: #### U RTPRT #### [address] [address] Report Checker: Gonzalo Cain MD Coxsackie A9 Titeron 024 [place] A9 Titer <1:8 Normal <1:8 [facility] Comment on above: Result Comment: (NOT E) INTERPRETIVE INFORMATION: [place]sackie A Serotype 9 Titer Single positive antibody titers of greater than 1:32 may indicate past or current infection. Seroconversion or an increase in titers between acute and convalescent sera of at least fourfold is considered strong evidence of current or recent infection. Performed By: [address] [address] Roofing Layer: Nikita Pantoja MD, PhD CLIA Number: [id number] Performed By: #### A PARVP, AF5MUT, APRTSF, ACOXAB, ACOXA9, APTMUT, AMTHFR, APROTS #### [address] [address] Report Checker: Arben Carrington MD #### AT3A, PROSAC, HOCYS, ACARDA, FT4, PROCAC, TSH #### [address] [id number] Report Checker: Gonzalo Cain MD MTHFR Gene Mutationon 2023 MTHFR 1286 A>C Mut Negative Normal [facility] Comment on above: Performed By: #### A PARVP, AF5MUT, APRTSF, ACOXAB, ACOXA9, APTMUT, AMTHFR, APROTS #### [address] [address] Report Checker: Arben Carrington MD #### AT3A, PROSAC, HOCYS, ACARDA, FT4, PROCAC, TSH #### [address] [place] [address] Report Checker: Gonzalo Cain MD MTHFR 655C>T Mut Homozygous Normal [facility] Comment on above: Performed By: #### A PARVP, AF5MUT, APRTSF, ACOXAB, ACOXA9, APTMUT, AMTHFR, APROTS #### [facility] [address] [place] [address] Report Checker: Arben Carrington MD #### AT3A, PROSAC, HOCYS, ACARDA, FT4, PROCAC, TSH #### [address] [place] [address] Report Checker: Gonzalo Cain MD MTHFR Interpretation See Note Normal [facility] Comment on above: Result Comment: (NOT E) Indication for testing: Determine genetic contribution to hyperhomocysteinemia. Homozygous MTHFR c.665C>T: Two copies of the MTHFR gene variant c.665C>T (previously designated C677T) were detected; the c.1286A>C (previously designated F2588U) variant was not detected. Homozygosity for the common c.665C>T variant is observed in 12 percent of Caucasians and 25 percent of individuals of ancestry. Since this genotype may be associated with mild to moderate increased plasma homocysteine levels, fasting total plasma homocysteine levels should be measured. Genetic consultation is recommended. This result has been reviewed and approved by Luly Haynes M.D., Ph.D. Background Information: Methylenetetrahydrofolate Reductase (MTHFR) 2 Variants Characteristics: Variants in the MTHFR gene may reduce enzyme activity contributing to hyperhomocysteinemia. Although hyperhomocysteinemia was previously reported to be a risk factor for many conditions, especially venous thrombosis and cardiovascular disease, recent meta-analysis casts doubt on whether lifelong moderate homocysteine elevation has an effect on cardiovascular disease. The [employer] Practice Guidelines indicate that individuals with elevated homocysteine and two copies of the c.665C>T variant have an odds ratio of 1.27 for venous thromboembolism. Thus, they recommend MTHFR genotyping not be ordered as part of a routine evaluation for recurrent loss or thromobophilia due to questionable clinical significance. Incidence: The allele frequency of the c.665C>T variant is 0.35 in Caucasians, 0.5 in Hispanics, and 0.12 in Americans. Inheritance: Autosomal recessive; two copies of the c.665C>T variant may be a contributing factor to hyperhomocysteinemia. Variants Tested: c.665C>T(p.Jdf830Stg) and c.1286A>C(p.Ftf952Ntr). (legacy names C677T and J0205A, respectively). Clinical Sensitivity: Undefined; hyperhomocysteinemia is caused by genetic, physiologic and environmental factors. MTHFR variants are only one contributing factor. Methodology: Polymerase chain reaction (PCR) and fluorescence monitoring. Analytical Sensitivity and Specificity: 99 percent. Limitations: Only two MTHFR gene variants (c.665C>T and c.1286A>C) are tested. Diagnostic errors can occur due to rare sequence variations. This test was developed and its performance characteristics determined by [facility]. It has not been cleared or approved by the US Food and Drug Administration. This test was performed in a CLIA certified laboratory and is intended for clinical purposes. Counseling and informed consent are recommended for genetic testing. Consent forms are available online. Performed By: [facility] [address] [place] [address] Roofing Layer: Nikita Pantoja MD, PhD IA Number: [id number] Performed By: #### A PARVP, AF5MUT, APRTSF, ACOXAB, ACOXA9, APTMUT, AMTHFR, APROTS #### [facility] [address] [place] [address] Report Checker: Arben Carrington MD #### AT3A, PROSAC, HOCYS, ACARDA, FT4, PROCAC, TSH #### [facility] [employer] [address] [place], [place] [id number] Report Checker: Gonzalo Cain MD MTHFR SPECIMEN Whole Blood Normal [facility] Comment on above: Performed By: #### A PARVP, AF5MUT, APRTSF, ACOXAB, ACOXA9, APTMUT, AMTHFR, APROTS #### [facility] [address] [place] [address] Report Checker: Arben Carrington MD #### AT3A, PROSAC, HOCYS, ACARDA, FT4, PROCAC, TSH #### [address] [place] [address] Report Checker: Gonzalo Cain MD Parvovirus B19 Panelon 08-10 Parvovirus IgG B19 0.18 IV Normal <=0.90 [facility] Comment on above: Result Comment: (NOT E) INTERPRETIVE INFORMATION: Parvovirus B19 Antibody, IgG 0.90 IV or less .......... Negative - No significant level of detectable Parvovirus B19 IgG antibody. 0.91 - 1.09 IV ........... Equivocal - Repeat testing in 7-21 days may be helpful. 1.10 IV or greater ....... Positive - IgG antibody to Parvovirus B19 detected which may indicate a current or past infection. The best evidence for current infection is a significant change on two appropriately timed specimens, where both tests are done in the same laboratory at the same time. Performed By: #### A PARVP, AF5MUT, APRTSF, ACOXAB, ACOXA9, APTMUT, AMTHFR, APROTS #### [address] [address] Report Checker: Arben Carrington MD #### AT3A, PROSAC, HOCYS, ACARDA, FT4, PROCAC, TSH #### [facility] [address] [place] [address] Report Checker: Gonzalo Cain MD Parvovirus IgM B19 0.24 IV Normal <=0.90 [facility] Comment on above: Result Comment: (NOT E) INTERPRETIVE INFORMATION: Parvovirus B19 Antibody, IgM EFFECTIVE 05/21/2023 REFERENCE INTERVAL CHANGE Due to reagent kit waiter/waitress counter recall, an alternate kit has been validated and implemented by [facility]. The following Reference Interval applies to this result: 0.90 IV or less .......... Negative - No significant level of detectable Parvovirus B19 IgM antibody. 0.91 - 1.10 IV ........... Equivocal - Repeat testing in 7-21 days may be helpful. 1.11 IV or greater ........ Positive - IgM antibody to Parvovirus B19 detected which may indicate a current or recent infection. However, low levels of IgM antibodies may occasionally persist for more than 12 months post-infection. The best evidence for current infection is a significant change on two appropriately timed specimens, where both tests are done in the same laboratory at the same time. Appearance of an IgM antibody response normally occurs 7 to 14 days after the onset of disease. Testing immediately post-exposure is of no value without a later convalescent specimen. A residual IgM response may be distinguished from early IgM response to infection by testing sera from patients three to four weeks later for changing levels of specific IgM antibodies. Performed By: [facility] [address] [place] [address] Roofing Layer: Nikita Pantoja MD, PhD CLIA Number: [id number] Performed By: #### A PARVP, AF5MUT, APRTSF, ACOXAB, ACOXA9, APTMUT, AMTHFR, APROTS #### [facility] [address] [place] [address] Report Checker: Arben Carrington MD #### AT3A, PROSAC, HOCYS, ACARDA, FT4, PROCAC, TSH #### [place] [address] Report Checker: Gonzalo Cain MD Cardiolipin Ab G,A,[facility] 08-08 Anticardiolipin IgG 0.7 GPL Normal 0.0-10.0 [facility] Comment on above: Result Comment: Reference Range: <10.0 Negative 10.0-40.0 Equivocal >40.0 Positive Performed By: #### A PARVP, AF5MUT, APRTSF, ACOXAB, ACOXA9, APTMUT, AMTHFR, APROTS #### [facility] [address] [place] [id number] Report Checker: Arben Carrington MD #### AT3A, PROSAC, HOCYS, ACARDA, FT4, PROCAC, TSH #### [place] [id number] Report Checker: Gonzalo Cain MD Anticardiolipin IgA 1.9 APL Normal 0.0-14.0 [facility] Comment on above: Result Comment: Reference Range: <14.0 Negative 14.0-20.0 Equivocal >20.0 Positive When results are Equivocal, it is recommended to retest after 4-6 weeks. Performed By: #### A PARVP, AF5MUT, APRTSF, ACOXAB, ACOXA9, APTMUT, AMTHFR, APROTS #### [facility] [address] [place] [address] Report Checker: Arben Carrington MD #### AT3A, PROSAC, HOCYS, ACARDA, FT4, PROCAC, TSH #### [place] [id number] Report Checker: Gonzalo Cain MD Anticardiolipin IgM 1.0 MPL Normal 0.0-10.0 [facility] Comment on above: Result Comment: Reference Range: <10.0 Negative 10.0-40.0 Equivocal >40.0 Positive Performed By: #### A PARVP, AF5MUT, APRTSF, ACOXAB, ACOXA9, APTMUT, AMTHFR, APROTS #### [facility] [address] [place] [address] Report Checker: Arben Carrington MD #### AT3A, PROSAC, HOCYS, ACARDA, FT4, PROCAC, TSH #### [address] [address] Report Checker: Gonzalo Cain MD Homocysteineon 08-06-2023 Homocysteine 5.4 umol/L Normal <15.0 [facility] Comment on above: Performed By: #### A PARVP, AF5MUT, APRTSF, ACOXAB, ACOXA9, APTMUT, AMTHFR, APROTS #### [facility] [address] [place] [address] Report Checker: Arben Carrington MD #### AT3A, PROSAC, HOCYS, ACARDA, FT4, PROCAC, TSH #### [address] [id number] Report Checker: Gonzalo Cain MD Lupus Anticoagulanton 2023 aPTT Coag (Bld) [Time] 25.4 s Normal 23.0-36.5 [facility] Comment on above: Result Comment: IV Heparin Therapy Range: 66.0-92.0 sec Performed By: #### L [facility] #### [address] [address] Report Checker: Gonzalo Cain MD INR Coag (PPP) [Relative time] 1.0 {INR} Normal [facility] Comment on above: Result Comment: Therapeutic Range: Moderate Anticoagulant Intensity: INR = 2.0-3.0 High Anticoagulant Intensity: INR = 2.5-3.5 Performed By: #### L [facility] #### [address] [address] Report Checker: Gonzalo Cain MD PT Coag (PPP) [Time] 13.0 s Normal 11.7-14.9 [facility] Comment on above: Performed By: #### L [facility] #### [address] [address] Report Checker: Gonzalo Cain MD Protein,Tot,[place] [facility] 2023 Creatinine [Mass/Vol] 221.0 mg/dL High 28.0-217.0 [facility] Comment on above: Performed By: #### U RTPRT #### [address] [id number] Report Checker: Gonzalo Cain MD Tot Prot. Conc. 15 mg/dL Normal [facility] Comment on above: Result Comment: No n ormal range established. Performed By: #### U RTPRT #### [address] [id number] Report Checker: Gonzalo Cain MD TP/Cre Ratio 0.07 Normal [facility] Comment on above: Performed By: #### U RTPRT #### [address] [address] Report Checker: Gonzalo Cain MD Thyroid Stim. Horm.on 2023 Thyroid Stim. Horm. 1.89 uIU/mL Normal 0.30-5.00 [facility] Comment on above: Performed By: #### A PARVP, AF5MUT, APRTSF, ACOXAB, ACOXA9, APTMUT, AMTHFR, APROTS #### [facility] [address] [place] [address] Report Checker: Arben Carrington MD #### AT3A, PROSAC, HOCYS, ACARDA, FT4, PROCAC, TSH #### [address] [id number] Report Checker: Gonzalo Cain MD Thyroxine, Freeon 08-06-2023 Thyroxine, Free 1.1 ng/dL Normal 0.9-1.7 [facility] Comment on above: Performed By: #### A PARVP, AF5MUT, APRTSF, ACOXAB, ACOXA9, APTMUT, AMTHFR, APROTS #### [facility] [address] [place] [address] Report Checker: Arben Carrington MD #### AT3A, PROSAC, HOCYS, ACARDA, FT4, PROCAC, TSH #### [address] [id number] Report Checker: Gonzalo Cain MD ANTI CARDIOLIPIN AB IGG IGA IGMon 08-04-2023 NATHAN IgA <2.0 Normal 0-19.9 [facility] Comment on above: Performed By: #### A PARUL, 5124-3, 53074-9, 11118-5, 43288-7 #### [facility] ([id number]) [address], [address] [place] [address] NATHAN IgG <1.6 Normal 0-19.9 [facility] Comment on above: Performed By: #### A PARUL, 5124-3, 14056-2, 86433-9, 49336-9 #### [facility] ([id number]) [address], [address] [place] [address] NATHAN IgM <1.5 Normal 0-19.9 [facility] Comment on above: Performed By: #### A PARUL, 5124-3, 11692-1, 40183-2, 42497-0 #### [facility] ([id number]) [address] [place] [address] Anti cardiolipin AB IgG IgA IgMon 08-04-2023 Cardiolipin IgA IA Qn (S) [facility] Cardiolipin IgG IA Qn (S) [facility] Cardiolipin IgM IA Qn (S) [facility] CMV IgG IA Qnon 08-04-2023 Interpretation and review of laboratory results Abnormal [facility] CYTOMEGALOVIRUS IgG >8.0 High <0.9 [facility] Comment on above: Result Comment: Interpretation-------- <0.9 Negative 0.9 - 1.0 Equivocal >1.0 Positive Performed By: #### A PARUL, 5124-3, 64415-6, 20101-6, 32711-2 #### [facility] ([id number]) [address] [place] [address], [address] [place] [address] CMV IgMon 08-04-2023 CMV IgM IA Ql [facility] Comment on above: Interpretation-------- <0.9 Negative 0.9 - 1.0 Equivocal >1.0 Positive NOTE The following results were obtained with the [employer] 2200 ToRC IgM test. Results obtained from other [employer]'s assay methods may not be used interchangeably. CMV IgM IA Qlon 08-04-2023 [facility] CYTOMEGALOVIRUS IgM <0.2 Normal <0.9 [facility] Comment on above: Result Comment: Interpretation-------- <0.9 Negative 0.9 - 1.0 Equivocal >1.0 Positive NOTE The following results were obtained with the [employer] [address]200 ToRC IgM test. Results obtained from other [employer]'s assay methods may not be used interchangeably. Performed By: #### A ME, 5124-3, 71038-5, 29272-3, 08396-6 #### [facility] ([id number]) [address] [place] [address], [address] [place] [address] Cytomegalovirus antibody, Ig Blaze 08-04-2023 CMV IgG IA Qn High [facility] Comment on above: Interpretation-------- <0.9 Negative 0.9 - 1.0 Equivocal >1.0 Positive Syphilis Total(Unknown Syphi lis Status)on 08-04-2023 T. pallidum IgG+IgM IA Ql (S) [facility] Comment on above: NON REACTIVE No serologic evidence of infection to Treponema pallidum (syphilis). Repeat testing may be considered in patients with suspected acute or primary syphilis in 2 to 4 weeks. T. gondii IgM IA Qlon 2023 [facility] TOXOPLASMA IGM <0.2 Normal <0.9 [facility] Comment on above: Result Comment: Interpretation-------- <0.9 Negative 0.9 - 1.0 Equivocal >1.0 Positive NOTE The following results were obtained with the [employer] 2200 ToRYumDots IgM test. Results obtained from other [employer]'s assay methods may not be used interchangeably. Performed By: #### A ME, 5124-3, 16328-7, 45534-0, 86980-8 #### [facility] ([id number]) [address] [place] [address], [address] [address] T. pallidum IgG+IgM IA Ql (S )on 08-04-2023 [facility] Syphilis Total <0.2 Normal 0.0-0.8 [facility] Comment on above: Result Comment: NON REACTIVE No serologic evidence of infection to Treponema pallidum (syphilis). Repeat testing may be considered in patients with suspected acute or primary syphilis in 2 to 4 weeks. Performed By: #### A ME, 5124-3, 56273-9, 24155-6, 59428-8 #### [facility] ([id number]) [address] [place] [address], [address] [address] Toxoplasma IgMon 08-04-2023 T. gondii IgM IA Ql A1 NINF - 0.9 A1 [facility] Comment on above: Interpretation-------- <0.9 Negative 0.9 - 1.0 Equivocal >1.0 Positive NOTE The following results were obtained with the [employer] 2200 ToRC IgM test. Results obtained from other [employer]'s assay methods may not be used interchangeably. dRVVT/dRVVT.excess phospholi pid Coag (PPP) [Ratio]on 08-04-2023 [facility] Negative Normal [facility] Comment on above: Performed By: #### 5 0410-0 #### [facility] ([id number]) [address], [address] [place] [address] dRVVT excess phospholipid Coag Ql (PPP) Negative [facility] Outside Recordson 07-08-2023 Outside Records [id number]#1.00[facility] Rad - Ultrasound Reporton Rad - Ultrasound Report [id number]#1.00[facility] Outside Recordson 06-01-2023 Outside Records [id number]#1.00[facility] Rad - Ultrasound Reporton Rad - Ultrasound Report [id number]#1.00[facility] Coding Summaryon 05-01-2023 Coding Summary [employer] 64 BbgddiqgNVl0cSd+PGhlYWQ+PE1F ZYYdE74nwSIqzO1nF0BJCUtXDvdr RGCCHAdOMlXnyrPcQV8iqRLeFJFt IC8+JC8zAQMiDkhckFUsd5T5kGW9 F06pru7hDZgcnHR8CNBrIiOxdbnm b7niyNr3BKqgMoktRjNp GFQvqU22EOU0nA59Se61tAJgpWGa w9mzwJi2BnCjOINfEWZ6rAagKOvf d1SzLMBmN32viLHih9K8 OOZkpGcwdYLhNpPzyJY9vM7oGQtv tanql3fkrywbFlh1xu40cMKgm0E1 iIU5O3UqdrZ2NLRodGCd TsgppWNMqL7sxnznq8cpdlvvLjGx IIWqXHp8MXh9BKMkdFtfYdHfXT41 IED5ALLmppYbH0OvLZTq jIynEkG3o2I9Ze6WK1MTErxwQ1OV TUFSWTwvdGQ+DP23pk73G3JoQmou Ugk1NAMbCIO6kEQ8uW7e XCYrDTefa5E2lSG9A9EevbSimv9b r7feQOKoLUxxH62lzIKro0P7XGKu mRY0GISbpHqyBfZhtN18 Oyc+HJEuwCekv0FjPetvu4bap8jb bYm3EcpfJYExvkFauNjiZRR5p8Rd Rx8hIRKhwUM7iHF7sJ3f KkImQiU1FWozV006HfCbwXZeZquq N54jP5RsxEX+PRJcQut8OGTgmMut HJ0lM9BdXZGnjsebtCCc mDurBM7wRCBgwpxqLOPzqN7oJPCm R6j6IaMfXaR8HTreE9YvMSUjbqle Ls51sH7gJsOfXsO7DLnk I0YigbP7MQBogZXhEVrdNKY3A47x u9T1DEGpUVUoWYP7bIE6lU2ieGsc bjogbGVmdDsgdmVydGlj PYcpDNwnP304BUVytRwtMhWmVYsd ZyBEYXRlOiAgMTAvMjAvMjAyMzwv dGQ+PBAbNEU2fBueFEGp sWZaHCyaPh5epZpomLebAX4eRGWt kvzrMENkiN1cRBFpiNXnmIwdEF9x DSOemwusl990CbEjEZG8 VNQcfWVwZ3FyiI2tPiRjZRXlMAPe S1VafQMgUGznU039OQixWnA3OVIl zvFgJ4TzLFDmiHxbPxA9 a2M2Rd8Kd9LnhjfyK0VpyCKpWdJe JmesPJy5D4NtHeeoxXD+TY52DZKf CL09AKh5VRQ6eLigWXor XPKgW6EetG1vKoAxPQQxHERfMji+ PHRhYmxlIHdpZHRoPScxMDAlJyBz xIqhMH7vDg9wCMGcJRWy zNndlEZtOsPpv8apPEEqKBizHL2w cYoxU0BxgLT8IGLcz1f6Bp05A32g C0MihYB+AGFtrLO4gLF3 hM9oSjRnHqJ0OXhtK760KzQfeSBo Lloeg2iuc9sycJd0RkH0EIElysAb gYgiFQF1o4ImQg34D97k ZUhvKCEuNGZaANOnKMOplRtysv1z iU2iOg3+TSXnbMI0ySM1eA5dKkPy GmI9FIryN342JhIxyIJq Xxjis6qrk8bttHw1PlXzTVFpqdQd qHveFAJ6v2ZrVv03P1TmlZvtx7Kw Mfp5xa43rGEno3Z9fTZ1 O4XbOOJpjkxwhOUbaUdoZB4iHKSu dafkRHSlbT1vSHEuM5f7UxHmNgZ5 WZjgK8QjgkP5WBWkdJAs BFYgyAOHrV9tqjpkq3tnhvscRaCt PNEmNHo5EVh0ZNFwfFkgReYjSNY0 VpB9AXL7sVFmpH7lpGkp ktsztU0jRbw+JOY8kUMzzZCPCM7h OjwvdGQ+BSCmURU0pFxnZLwyVCGd tJ2oMSStG8u9UoEkWcY5 YMaoD9QgpeP0GKXjfVHeYSUveXIV cW2msnnny2qxysadRtKfHVLzDNc9 YMj4BNTerEjcVzGwGXY7 LzQ3OAM6mEAyrG4dxRcbvcopaL6y Oyc+HxufuOkePNS0CCc4P6NqUzw0 FWAzvDujBQ2olYAkQDqf Hj5imPldmTdqRM0vJRHjmqonl986 IuIsg8jdVSJlsONmVDozVFM1O57k r8V7AYFxYSWmQUM4aKH6 iS3tdXfpfwxyvYKieAbsdbKuhGtq UOqqWJjdS951FALmyCudFkSfSQc3 F3AtPvo7CNSxbPfiCD0s pIYhLKyoAs8haWuufNbeWS7tUTBg ofwci165ByBqy0etXUWrjVLxQCdb FXX2Q48pd0E9VMEeBTHa MJA3wHI3bE9haTrtpmtsbVHdtWeo tvFeaVbqZZpsGKlrW696CIZvgSne ZzVrhKb5L3OkIjl7HBBo mLftHE0zwBZbWIftJg2tbSrbnLdj DH5dBZFelcrsn390AyQoy6pzPCJi xPXdLPbcDZH2B80gj7D3 DGRcTHFrPGE3eVK3aG9llSrresvu zTEaqIsegmIxhIazIPpaJYjdF856 IHRvcDsnPlBhdGllbnQg EPgvSGr9F9VrDmecbAY+FR21ERXm XZ52uJEuqWMpr5sveEl5KlScDQWf MRH2fOskOBgki5PmKRKx I48qpQCcn2Y4PNXgeOgngQFeLuAb gLZ4aT8kVZvnzgyru1yfrbrsQuhl m6czls50fZ12P62tCDat UETqDJChNAVtDSSmlRejln5mvI3m Ii8+ZBVfnUL0nAY9lY7jUMKkWoW5 CSzkX939OtEifSTqVlab e4svk7atqLm6MnF6JIOhmkUzoCyi YMQ4k9AsQb37J78rWXoiZQIgBBOc LAVlCGHirEaqkv7pdL5i Ii8+EPIucYK1qMA4pU3xOtQiTfG6 LQpmZ682SoIeuUKbYafxF23gO7Ff dXA+XSAaYfh5VTZyiJmm AS8jwIGhTMgaLe8nRSU7MrIvCuTj MRltJ9GaHJOwpkbblpbwfQC8SFTc OPTypI05Gy9dqDcgZUGe jWGOzD9iterxi4hkduwjYoJgUZEf DRq9VKd9QHPdbQhbDtXtVAG9WmG4 ZOO7sDUmqE3rcEqeqrbf bY3bU8PiCDWzmjpjSu71uT2lHiLx QiS5WAmuQcl+V6wDF3qQTgjpDAFL C7SpZE1AZT14SE68eACx l0E9uCG3D1ChTGRrjtfsmfpowXM4 RLUoEMPqfH06tLSfUKuwIc0cw0E7 z946NHSvZVOlxK76Hk0o yPipIIGdrYJViY2euvncy1gmcwyc TeMaEDUpQIg4IFz2WISmbKcgEfLs YTX5GrF7XYW2tBSlhT0c kDjdzenbqL5hNxq+MDMvMTIvMTk5 NzwvdGQ+LSJtRWS7cSsbRZvoBQYf cT9iJPEjX1c3MvDrAoW8 HGgmU8CyFGAknepqTs31dL2zEfKu CfS0YIcsV5TvrrA1VUZcoFCuUYla EFQ6Y05yx4Q1WOMlHXBq SLK7kSR0sO3hlQxzelrmoPFtkItv egYeiVxfXItqPFifK390ZHIbcUzm NyJ8ZPsrMVDnHG70BJ17 cVMtv4M2wVY3W5TkUZUsvokflrqa kKT0GJJyWWXytP01pOMbPGimQi2v h7M2p183IQKzGOGgtW81 Pe8guHegMIWnzCUXoN3khezab6hl pdctYgEwJYMwEQv4DCd8ZABnfMvw JfTrCJA7TkX5BXZ5yWQl vA5guCpjizbgtU5zZmm+RkVNQUxF SG33II02nPQhy5E2lOI3K9MxQTRi cagngvkbyRJ4IBBaCDLo rP79zVXqPJatWr9tw7G1b009MBFw SLZpjY04Tr3tiXjmGKPyzNAMyV5h usdtl6scllibWvTzITKb REr2FCv8EGKemJxmDeJrWIP1ZoP8 WSM6hYWfnK8buPziqkqruT1rDnv+ F4C1O9EhEeevkXP+PC90 QCLqCD35eFDjwTAwf1dxfAt3QjPt YTXyBED9rOarQXgln6RwHHAwB13d yOFmx6L8KLQzqFesuPCl DmRfvKM1iK9yJBvgoiqzq0gtcrvi Iwudn4nxle67eP37F86rKPshOXPy OOZxKMXoMKEihFakga2w nC0vWk1+AMYjkUM7jNC1qD2tAbJo GnV2YOzeQ777PyUtyNEmTkzay6ws v6rbuYb5WpGxWBLuddAh dObnKMR8i9TnGy15R83fTXvfHNKz KYWjIVPtPEVmhOljdo5vqE1rYv0+ WX4uo7jbva35xP82oCL+ VNVzNOO1sNzrKWvmUXTgfY5bFMpw FyC0ZQSqDsVobX53kXPdFSfpBi6u iLyfnLysNK0wCHHqnxwk g348DaCan7mqFVZpdXWfZZxeSUJ4 L88qw9A2AMKdFLTmEBS3lJW0kN1b bGlnbjogbGVmdDsgdmVy fUfbSGceXJfjS259PAYeePgfPqCk wWDrU0kqkmLOMZ3tTydqhLA+PHRk IJK6gRwuRJblIXMfmB1m WMOrQ0o0BbMpYoC7EQzsL5TlpkE1 ORZogCDaSHAmiXTAkN4xpflgd6ak gkldZjDoPUKtBTb1CZj7 INGdsTwmQjAeJRJ3YhJ7JMV8mNHr nB4ddJezesepnW8lKsy+RklOOjwv dGQ+JSPfJDL5dWifTUhx WCRzkF6cFOPtG6s6DoUkMmF7SEqq K3CaxgO7WVNioQWiGQLgpBCDwM0w cbxsh2qiscdxTkRuZBDw CWr0AKs9RIMwwMbpRlOeERZ3TbV2 DGT5yIHgnM8fbYspchlfsL2rJqt+ TVJOOjwvdGQ+PHRkIHN0 rTccSDjgDOXiyO2vTWPuL3a5EnXz TkF0MIkzF8OyyiA3OOAvyMOmNGJa zHWLxA3oybdpg1ltzcke YnDdUAJuSBm6IOq7QUVowXsiRfJz QZF9QdU6UYO9oZDmfR8yqVjdfegq eA1wYov+GRI0SMK1NX53 QV21H7HkArvfpHVfyOO+PHRhYmxl PKevOAQaLQouIJUsMkRqxUwmVB2l Se6kNSGcNXCamIbauMFy OiB (more content not included)... [facility] Coding Summary HTMLBase 64 RgzjzwkjEVi8xAs+PGhlYWQ+PE1F MFBhK07dsMVicA5iR7GWBMiAJorr HIKGWJqWRaDjpuLzCW8gsIAfXEXv IC8+PG8hOHGdLmpikPFku2H1yRY0 Q03tsu3rGMvmhPN7BQVxPfOiwcgl n6uqvKr9HUrpJajsApMt GMBeaF28DYV3tW66Ti71fBUmxOJh d5omhOm3NsCgVKWwHOF6vCofZHuo d2PiMXIzX19jzOTpl5S4 UASewVareOYrYkDwvDU0pF0dBUpp pnzll8ofgsdoAls2hh19vLAdg0S1 rZI2D5VdrhU7MCXcxTHd BimibFIMnF1qmhguj3tjddmgWxQt VCQxJLf7VTi3QARwgLnyHsReCR47 GCL5FXBroySwQ8JhMROz yKgrHeO9a1F2Hu4QX5FHRknyM0RR TUFSWTwvdGQ+BR47cr44K3JiPtuz Axa1KXCpLHW9vXF1dT9j OKCsCGvnw3K9aZZ6F6BmjuTjnq6m k5kySDRxMHpqP87fwDTxi9B1BEFu oKE5HBFxxCunWxUeaD35 Oyc+VMZfvXhfv4PoWhwqs2egx1kw rMf3LwxpNLZqtvSwrMogGJP2d1Nj Uh8aLEEeaQS4rUG0jU9d TmJmPnN3TTutQ449VuNmzGBvNpxd R77gA0EoyLH+BPYzPgi8SHCqwTny AL2eU1OaQZTojxoaxQTy cDexCQ5xDOAcrhwwUKPhwE2pIPYo K4l1OgXtApZ4UMnpP2NnIRNupjnk Kx95tT9mDuVmEbV4QUkj F1QxkbA3WHAtuACbSLcxZTX1S68p v0B0PFPtFVHxLWK9qOV9cN0boXkg bjogbGVmdDsgdmVydGlj QIyiACgmO875QDBxuNncMvKqJWgm ZyBEYXRlOiAgMTAvMjAvMjAyMzwv dGQ+HYGqNEG0wRfsNHOi vNKoHHshYp6apFobpKsxCX0gJGUd ntwaDOCdyC6fVPXbaYVyhWdwWE5l DAImlbvsi196UiEiODT9 UDJbwESrK5LhmH1rQpLuKFWhANTd A9GedOJpQSexV184BIljUoP1KAVq nfNpV6YqXCJcsYbjFeX3 g8S0Sx7Xa3TttteeG6UbsGMmNcGz UpobOEc9T6WlJiczwZK+KF39BJEi WH46WBq4WXJ2hMapCGcc LQOzP6QywN7bNcDlVEExBKCtGob+ PHRhYmxlIHdpZHRoPScxMDAlJyBz cVdbQA6lQq4nNQVjLMCt qMavdGNhElNfx1ndCRRqQMteBP8b gDsgG2PepGC8VWNyy5o3Pc68S48h L9RbnWC+NQRywVD2cNM5 eM5uPrNcWnZ9ZKxoL979FuXqjDZf Uojic2hvd7xfvSf4UuA5IUPiiaVx eFhnSZT3y9ElYg40S40b XXftHDOvPFLwICFkWQLrvUczdr0m uU6eXc3+MYKfhZC1rWJ2iI0wAcLd KlV7UVkeL533VwTcuTSd Netvy3but9lmrYi6HzIqQIAvbbVv lIiuUCZ5d3TsYz22Y9LssQxcg5Sn Zdl7tn80vFNok7H2wJR1 Z7KxSMBagkuljHPyvDtdRI4oMEWs wksdCPXbbF2aZFNlK0i1XvOjOkA0 HCcyF8MipkX6COKqrUSv OSUbrBIJcX5eegzfa6eqnyzdSvYb XMObXBd5CXo3KIRiaZgqJvOkKGJ2 BcM4BSC1tOOdzE4zeBhp fvvpnF6nMzm+TWB1qGUwtQJYQG3u OjwvdGQ+SIDeOYO8rDkzRZdhGBYq eK5vELFnZ1f5DsRbDeN0 SAlqL7MzjuA0GINnyYHhCQBlqWSJ oN5wzfasw8fbosqsSxRaVLMfPCe4 QXa5VXSdfRkrNfBvJKC8 VvC0XRT2jSUjvB5vbVjaoghtbH4d Oyc+ZytggKjkVTN6VBd6F4AoMni5 IAPxfQpxAY1iePPmBThe Mo6qbErbwOreAN0qGDLuqxxhg142 QlWqj1zeZTBpcJUaHIloXDS0L61x j6X1HUNxCCLaOIY1oUN8 fK0goAgorbereVZtdXlfhyEdkLru XWgsLVuiB246GQLlfNfjQbBsDKm9 N8EfXfm2NQVboGilSJ1r qJZeRVftVo3ymExdxOtjWD5yFTZp zqnbl547VwHls2rrNVXtgDAoYXzn CBD9E75jn8C1GAGtJXTg DBM7dAC6pU2iqGpxbqhpwOTsaFid yrUdsFpfBDhmSIbxI479YNOqsMni AfMlyHm4S9CxGyv4LDMe hYewJZ5ipONxVEobEw0uyOsldMik AC6oQQKmveaao177TiVxi0wiMJEl oZBaLPwnINL0Z61ym4B1 KMSkWCCxPNU6vLP5fS7geGxpqeza cJVwnXrmvyKxwIcxSHypYOwgU873 IHRvcDsnPlBhdGllbnQg YXwtOMx3Q9MxXpoveRB+RL11GWXj CL01vZVqcOTnr4hoiIu3HlIqZWRp HWB4oXscQMgil3JkAIAh Y83wzRXdh7B3FQUqjGupuKBiPqTm gYT8iS1hBUmntysmg7vdhzhsDxkk u5ueeu45xK36O54yELjp PTBvRBZkZKPkDNPdrYwequ8fcW6r Ii8+QZLokDD3eQI8fE7mDFRvVhI0 RLccH809KySqiFCuNbau a7jqs5rniNs1UyI5JOYwckPgcQss KRJ9y6IbBh29E48xVXbsEAEzNCKf JVUeXVXyxScthb0egE6w Ii8+ZKJztQX3kTR2xY5yToBdHzC4 ARmkH659JwWxjBNsZndkY16cA2Ad dXA+NMXiAet6XEAsvBvo BM3pxXLcPZndIv5oNMB7EbNmLrJz WUovK8DbIZIzfmnluttwzEM2NNCi QRZhbS91Xi0bfAgoGQFh pDRZtJ6plahoc2uvajfmHiTrDPFs ZJz4CZg0BYLdyLvyRiYlBGH7EnQ8 MGG2jUHyjY9bhJllbmjm hJ8yR8BsISOaehycRa72yT3dZjHo LcP6EFuuKnr+J3iDF4bDNivdODLK C0TcHJ0FKN67AW29tSQv y2J7zMC8E8MsLBBegqgjtovvyGG6 GXAcZBRnvF50xOHvDIawLt5bi8U7 d762COOaQMGjiR39Gk6n zFksVSVojDDXvV1mbjevt7vqphia JeCvTNHdHGc5RMw9OMJaiGmqBdWo AUZ3IpS3AKU4lNVvvQ1o hXyquavqkR1qYtl+MDMvMTIvMTk5 NzwvdGQ+EAAiBBT4yPlbBCdtGWGw qU2mGNQbP4z6BtMmFfM8 RQgwC5OdGAEbaobyRk29oY3aVaSy YvD5AOjiR3CwueE7BQJtmHSeEUgc LNS4J77ez8R9FCVaCNSs SOL9zPP1zA5dcQxsfjlxxVKeeNzl zgGbtSlpHQapCCbgO509UWPksKoz FeI1QZryHAVaYE44ME99 pMVbr8T6vZO0K3KmCCXabnsvtjjq eKK9YMUlCKWbbF50aDPjKBupOv6w d9X3d190YQLjMRFmfY78 Yf4ktDfjIGHvaSDEgU0yiziis7al edqvXoFuQCZuXTx9HXf9IRWsfItd ZkDfIXB4OyX7GYM2gEVe fF7loNewaniadO0rNfj+RkVNQUxF NL63GA50tMHnd0E1fWM7V7LfMUGx qkqdobiihIY8OXNlPHGa uK66fFNfKPdwEv0vh4H1b271OWBk TNIdaO64Pk9ybOihTBVirKKNyO2c xcxqo5ukdjnrDrXtLOIh YRl0XAl5IHHqxGlkIlFtHMV8LeG1 TUY3wFJqsH9hkXzmgomrrD6mPzz+ X2R1E6VeMjqizSI+PC90 KSKyPJ41oCCleCXgm4tkdEx4FcAw YYQrWCJ3dRilGWrih1EiNPKhT95t dBJov7Z0IIOiwClofHUp PbXmaGI3wH5rRWosuqunj6xdvvwu Ljkse4ktnn70tW12F18oFZegIVOu FSLyNYDjWDArnSdath8r eY4tPs7+BGLfdXS8mLP2mT6lJaCj DlG0ZEjmH037KbXriYYrJoqst4rn i2ytvCr4OvVrUBOvrkQz aWvtUKI4g3HwLo57J86fCGgpRDKd VFPsPIMdVCFpsMzmpc4rhR7cJv4+ UL8pf4zpdc32yQ90fPT+ ETRcXYT0tAkaGOdgQEXxbT2tNLtp KgA7GVLwQkVsvT43jRLzBJcmPo0z vMdbaOknGA0sINZdcklt w318JvVna1pmFEDvrDMfFYaxEBM2 V83dp3O7XNKtAGTxXUU0cPK7zM2k bGlnbjogbGVmdDsgdmVy tSlpLMhiKPpbY128RRGhaJvyKlNh yGUsA7phfdTGUU9bLyfwjKA+PHRk XNX3hLqgHUbcWRMzmC5o AUCoC0g0UcVqDyL7ZRkvB9RdpiV5 XWAvlOByZWRgzVYJiH5pjdamx9gx iryqHtTmUCNpZSc4WRm5 KHYymRtkPlQvNAS5YfB4WCW6pWGi fZ9lrQmspcbceQ5uXcx+RklOOjwv dGQ+TJYpGDK4hEcfRYtz WIAmjJ7dXXBzC4k0UiHdZtG6GYfy X5XyvqI5FLHmtSDuBXAxqKZKcN7w ntsiq5miwtfcRmGvNNYa KJr3SSx8UCOsyFtlDgOlZVQ4YlN5 EAY5aJTcgH5noVnroomriE3iKwy+ TVJOOjwvdGQ+PHRkIHN0 bQiqWNqcXNEgcG4dLRIuD4l2DoKn SlH7YDdcO1HheoM3XYByvMEyDMJy qCSLnR8pvlukt3fgfvqx IxEjHSOnMSe1NYk7DTNuxOuwPnFm QJG2XfU3EXE4rUIyzT2eeLwmcstm cF4rOfr+FFV6ELD0DZ71 SK27G9IjGxowfNKggRP+PHRhYmxl UFjyCXGkZNvaNWVyIxBijUlcOH3i Yt6eRBBoXDYvbLpwiGRf OiB (more content not included)... [facility] Reminder Messageson 04-30-20 Reminder Messages - From: DINORAH GILBERT DO To: [facility] Clinical [place] ([facility] Sent: 04/30/2023 07:53:33 EDT ! Show up: 04/30/2023 07:53:33 EDT Subject: Results Follow Up Actions: Call the ordering provider with results Due Date/Time: 05/01/2023 07:53:00 EDT Reminder Comments: looks good. no problems Results: Date Result Type Result Name 04/29/2023 13:59 Radiology US Thyroid From: Sindy Cormier ([facility] Clinical [place] ([facility] To: DINORAH GILBERT DO; Sent: 04/30/2023 10:55:59 EDT Show up: 04/30/2023 10:55:00 EDT Subject: RE: Results Follow Up notified patient, patient stated she recently found out she is and that explains some of her symptoms as she had issues during her first . She is under care of her [employer]MP [employer]ORMAN and she will continue to follow up with the ENT referral that was placed. I will fax the US to [facility] for their records. From: DINORAH GILBERT DO To: [facility] Clinical [place] ([facility] Sent: 04/30/2023 11:51:41 EDT Show up: 04/30/2023 11:51:00 EDT Subject: RE: Results Follow Up noted Normal [facility] US Thyroidon 04-29-2023 US Thyroid CLINICAL HISTORY: Hi story of nodules. COMPARISON: None available. TECHNIQUE: Ultrasound of the thyroid was performed with a regional survey. Reference: ACR Thyroid, Imaging Recording and Data System (TI-RADS): White paper of the ACR TI-RADS committee. Journal of the [place] [employer]: Volume 14, issue 5, [...] Percy Hopkins MD 04/29/23 1:59 pm Technologist: [facility] Coding Summaryon 01-10-2023 Coding Summary HTMLBase 64 NcfiyxomFMc6oJs+PGhlYWQ+PE1F TTFwO96zxJSytD9xY3FRKIaMZwvc TCPQTKeEOeWzpmJsDD0ulPVrWOUs IC8+HW0nGRDrKvjxhASfj1P2yJF5 Y57fzd5oRYrjzZO1YXSlNrYibdqz v1hpnEr2FYmvBrfvQrAk YGHimA73AXC1aE13Ty49lTEizYIx f2axrKy1PwQgERKgSWV3nXjdCRhv u0MbJLTeZ64lmAWca7H2 TMCfaAvtkSSpJgYceIH5mJ0fIGsn cyrgf4mwsocbDec4cn24xTPoi3L3 yJW8Y4WxycS0CPSmmSFx ErpczDUWzR5epdkdt9ymiacsTgDh LPHcIJb9JPo7JYBdyFvoPoGtOA70 DXJ0SIDtbfFyE3WfONGr rYbgFoN9e5M1Rc6EK0TXEmfoZ6HP TUFSWTwvdGQ+FM44ul56S8OtZhhl Ujz7ZNHoDOY6xBV9tD2f JIFrQTmou6X5wQJ1L7OuvqOwrg2t j8zmSWYjGXefK37asHTor4A6WIIj sGZ4ZRQmjZlsXhXxbI67 Oyc+SMHyvAoox3JoZlcwe0ify7vo kGo7HujrZXMecuKezYbsGLL5e6Sh Qt2yUGApzHW0lVA6dS1s QhGqGwA1FEjiB127RiDrgTRoGlep G00sP0KmeZJ+ERAkPys5VZZkqDxi VZ0xG3NeRHKjlkqruGAk eBmjXB5sZOSkieafHCTwpN9uTXCs H3w3LhQuBaR8PHeaP3DbVDXmjllx Ys04fU0xGbXqCrG8BRzg U7RawkG1XCYnpBByFZwqEXA2H03r v0C8WYBzBDZbQMN0wNO4qT4qhAaz bjogbGVmdDsgdmVydGlj NTokOUmcU622NUNwmLwbOiQoFDff ZyBEYXRlOiAgMDcvMDEvMjAyMzwv dGQ+RKZrAUG4tDsiXXAw tGWvKXzgIl0ogFbufUcbXR2rBJAk jtoaWIBggQ2wEIVjfYOnbRzdAB0n AZDrwnyrq768SuTjAXM5 GOZbaBLbM2NpbL4lUsDmPGYqVUNr T6GddQKmDDxuK529FMhtDuC2LJKx xwDdY6VrKMPlfRwvIcK2 n8G8Kv9Cd2AqahciB5WilVLhQzEj FvsdBOz9L0FwQabyqJN+JX46GUUf DN36UEv7BSJ5nZvsYXxs IZDjT7NkbS7wGlDnPHWfUGFrFwj+ PHRhYmxlIHdpZHRoPScxMDAlJyBz eAjsED0lVe5eLRLxPRMa gDddqBUqSzGzc5fgSUIhYOcjMK0w lOqbP1HgyZE4MNRpu4r7Xf75L08o S9QqrQF+KGFrcHJ2hLK8 mX0yEhLqUyJ2KBnqZ370RoCizJRv Lipuz2kxe8hikPp8CyJ6REYhnuUq yKjgNUA5x1NoKf27A16s VGfdLTXkJGYbOTTmRRMruLrced8u uH0vDe6+HJFmnQV3oCS5fD5jOgAj KmY3VJzsB280HaGjiAHn Mnems1ohj5vreFt1AmOiOKWlktZr mHnpKWS7p8ByHc75F0DblDprd4Sp Ejq5su77xEBca4Z1uZI1 H1LcYBXysoiqdFBorNoiYA2aPRDi qachCBVuvA8eMAZkD4m4MvYlEcB0 YQuuQ1TyycB7TAYkjQFm IRJnqNZVoS2cnvyvg7skurldIbRs JYEkZBp3BQl2ZJJohUnuEeGhRYD8 DnU6KBF4wEDnwA9wdIsr cxnlfN0xAcf+ACF7ePGdyUTUFB6y OjwvdGQ+YYYtBLY7oIliIGuvVCCc hX8lEXUuO3z9AxLsAoK1 KOqyS3DygpC6FBGuqVKrRWEjfJMF mX9vwipnk8gcncgiCwMdDMXcFIe5 MMc6QSFzwDfhAvSbVLE2 KgX7EQA8yWPwpI8nwHpkjgobcD0e Oyc+ZqisaQfrUIZ2CMe1L7XfZjd8 DYAvyRlpAB5nfELkFHey Jy7iqUvaqQdpLE3wBBOwhavue212 PpYfy8nqVXHnhBCsMKtnODQ4V54i n7Q4UGQiPWJxZLO4wXT9 qC3awHwpacwyoNGffJlsukZflOxk QNtuBOjjE945QVHttJbeUyRlMKl8 R9XoTow1ZZHhlIyqVC0o oJAcHTiaVm9zhLaatXrcOH6eHGAi xvijq508PoIwi4amXVYnfFYnUIub JVV7K98ms9Z1AIXbONKz YIC9eVA2iN9pqQipzuqfyVVycSyt yfPawNigMJnwOXtxH169AFCgfLbd DsLlmXm9U6GgTkx9PAJl lYxiWA0oyJYqFCzcZm7ygRdrpWvs XA9yLNBkntkau826ZfDjx6ebLXJi dXRfZCftOGF5C57cc5B7 MXCyCTRjKWM8jWR4bK6dvMfydcrn uAKhmUjhttOkpNzhTSsuRIxsG070 IHRvcDsnPlBhdGllbnQg HIbaXEk0L7WmBlfceVD+ON75HXVs ZA45eBZtlFSqh8vexVh5PeYvAHJp JFN4xJvaLHkze6EkKKGg F45jsSAcq1B4RYHgtRwguMCdCnCn oEV5oJ7uGAxpmommv6cnkzqmDqza q7vrfm99kC29R53sYTel PFLcXFYcQNDwMIGdsKcaix0xwG8p Ii8+GAUlnRL6nAE5yG9cNRIaUcN6 HWtvG028JgRmrSKpWssj c2jkc8ghcKu0CiT0CFHirfBmkVgq SNZ1e2KaJa03M57iOYihTUHxWZZl PZRaHPSbxCsydv1adT1u Ii8+ECCyyAR4sIU5pT2mEvKfTrX5 QTcrB135YvVigIIxOpjuM08gH7Tc dXA+ZOHnWkf9RLOgqTyz WE0mqQClDOwqUw2xQAZ7YyPjIfAz MBdeA1OkOOIhihuzcapwpKE8SBSa UVGkiB10Yd2foJdmDVOq iLXGaM4ffthip7kkltbyZoHhDNPw YLe8VIq1IYKtwRvgVxXnZKA6WwE5 DGV7wZMwlK3bxDyewyvh iY9oP6YwDTPvixdiVx58kQ1rKfOs KjZ1QZynDyg+J6nPC7tKEziwQWHL E4HaJI0XIG06KA61aKSz d2Z5uAM4J4FaJAKdckcftfdduMD4 WJIgQOKalP39tURlJHtcLw1bi0L8 f221UHUoLBJgoS27By4l bIvtONMwlJWQfY8vdfdmv2fhiwtb AvCpMFRzIBz3IBw0REPdnCpmCoBy JJH7AlZ0HAV7cUEptZ4j sSihisntrP9cJvo+MDMvMTIvMTk5 NzwvdGQ+KEDkHEH6hQqpEPcbLGPk sP5yVSPpT6h8XxXqXqJ6 GTwxQ2CaVOYkhjdjCr21zC8nIiGg MuU1ITggS7NobxY0VCJjiPPjWHef CUN6S39ma9F2FLYlTUPd UAQ0sPK2mL1pmIyrufdyaEBktTcw etNjiXhrDRwmCVhxF595TJOjzZmk YqT3HXsbTPXnRN78SU45 tIHuy2B6wJX4B0LaMSKlxuyktuti dMN1UKXeLSRtlI04jJFxEYyqFf0f t8V6y818VQNwBIIabL55 Na4fnEdzYJBxcTRApK6bdtkwx7kq kmjyBgFzDNGfZYj2RLp0GZSzwVoy JjKrTBE5UtW3LZZ5iJXm iX7lyKqguqyrdB8uDbj+RkVNQUxF UN09PY52jCVmv4B0gAL3F5EhVFXz icmnkicbpZO7LCKzJIUi qR56cORfXHimDq6fa2V1d851IHJi FLTplI80Ax4okEyvYYZwkHQHwK0k ktgwu7iggegzVpQcXPOp TDx4PAg3IAItxDufRaFrPDT2UrM9 PEQ2cHGmoQ6pzSsouynheR3kVig+ C7Y0Q2NnUtshyXC+PC90 GRZlVZ81gLYvxBGts6iluVm5LfPi RIPdHVM8yYdcWPkan9UhQITwW05d fUJdt1B8WBTjySxqmWOj FjJkyIB0tB4yFQwivrmfg9dheejc Znfyo7kwgt91fT76M94tUQoaCBXl IMHcORIkZAGfuFsnwf5c wQ6pNc9+IQRzyJD9vIR2gB4mCtYl IpE4ZAveP896JmHqrXPlGpojh8qd d5ekfQb5ImJnMHHjnoWe xUmkIWO0d6ZjRo02T05iJUzxFBCi JDAjMCFsJRBxrSxmbj8kxF5eRv8+ OT6pk2slua98oA28kAL+ JKVtGYR3mPcwKFiuZYIviY9yCRbo FuH3OMKgFhMipM73cCLzOCrcPp7g fGnvyHsdRS5vUQLhjmvs i381TyCsr7iuBXHzdLXbTJzfORA0 D91sy5C4OKCvSJNkBHU1aKM9iP6p bGlnbjogbGVmdDsgdmVy hIumUTbxZTbiJ035RFTkjZnpJcPj jJZhB7wdbgEHZP6vQdgxjUJ+PHRk NAO3lBfmDQikNGDqkW8s VWCxZ9l2GgMyPbJ0QSqsK0MgjoU4 RONjgWIfNIYgqCSBiW4mqzdnk0uo knggXaKeRXNbDMu7JVg0 GPQqxFtrIgSkIDI3PvP9HRR8uBLf oY9ycTorvzimtQ3fZvg+RklOOjwv dGQ+ZYKuPGU5vXjkSDeb NDHozH9zYJPrA6q1BoSuIyE2BOab M0IihvD4LPNdwYEgNKXesOWRbN9o mkpop0utobfvYtMaRDHp COr9IXy4KKEyjEkoTnTjPUY2UbJ8 AOL7iTIojD3ybDlvpazvsP8pAlc+ TVJOOjwvdGQ+PHRkIHN0 vHzfIKaxHQBaeX6mNFVfW3s4LwXu SpZ0LFyxS4OpmoZ4RFUybQZaKMUj uUUKtA9djajru4ekmphy HmXvQYQaQVx8QMh4XRFqgKyqPzRi RZH1AlQ1SYL4bWOpiW1jcMtzeyvf kE0gMgp+JQL0WVW5OR55 RD95T2IsQikcvILmnSS+PHRhYmxl UBmmRXUcTMbqCCXhDgTpnGqoFN7w Gr2aHWZnTMZecQjcfVIs OiB (more content not included)... Normal [facility] ED Clinical Summaryon 2022 ED Clinical Summary [facility] ? Urgent Care [address] [place], [place] [id number] Clinical Summary PERSON INFORMATION Name: BRAULIO CHAKRABORTY Age: 27 Years Sex: FEMALE : 1995 MRN: Acct#: Visit Reason: UC - Eye Redness; BILATERAL EYE DRAINAGE Arrival: 01/05/2023 09:44:09 Discharge: 01/05/2023 10:25:00 LOS: 000 00:41 Check In: 01/05/2023 09:44:09 Checkout: 01/05/2023 10:25:00 Address: [address] [place] [address] [address] [facility] [address] PCP: Alfonzo Addison MD PROVIDER INFORMATION Provider Role Assigned Unassigned Kalpana Stover VP TREASURER Nurse 01/05/2023 09:53:37 Cuong Cárdenas ED PA [...] Follow-Up: With: Address: When: Alfonzo Addison MD [address] [place] [address] Comments: Diagnosis is bilateral conjunctivitis, [...] diseases classified elsewhere Patient Understands: Yes - Patient/family/caregiver verbalizes understanding of instructions given Comment: Normal [facility] ED Patient Summaryon 023 ED Patient Summary [facility] ? Urgent Care [address] [place] [address] PATIENT DISCHARGE INSTRUCTIONS Patient Information Name: BRAULIO CHAKRABORTY Age: 27 Years Date of : 1995 [facility]: [id number] Reason For Visit: UC - Eye Redness; BILATERAL EYE DRAINAGE Arrival Time: 01/05/2023 09:44:09 Primary Care Physician: Alfonzo Addison MD Attending Physician: Cuong Cárdenas Comment: Patient Education With: Address: When: Alfonzo Addison MD [address] [place] [address] Comments: Diagnosis is bilateral conjunctivitis, [...] diet. TENORIO (more content not included)... Normal [facility] Recordon 023 Urgent Care Record [facility] ? Urgent Care [address] [place] [address] PATIENT DISCHARGE INSTRUCTIONS Patient Information Name: BRAULIO CHAKRABORTY Age: 27 Years Date of : 1995 [facility]: [id number] Reason For Visit: UC - Eye Redness; BILATERAL EYE DRAINAGE Arrival Time: 01/05/2023 09:44:09 Primary Care Physician: Azael LOPEZ, Alfonzo Sumner Attending Physician: Cuong Cárdenas Comment: Visit Diagnosis: Diagnoses This Visit Bacterial conjunctivitis of both eyes (H10.9) Elevated blood pressure reading (R03.0) Other specified bacterial agents as the cause of diseases classified elsewhere (B96.89) UC - Eye Redness ([id number]) If you received any narcotics, sedation, or [...] With: Address: When: Azael LOPEZ, Alfonzo Sumner [address] [place] [address]. [place] [id number] Comments: Diagnosis is bilateral conjunctivitis, this is [...] and treatment you received today in the [facility] were for an urgent problem and are not intended as complete care. It is important for you to follow up with a doctor, nurse practitioner, or physician?s oral surgery assistant for ongoing care. If your symptoms become [...] so we can reach you if necessary. [facility] has provided you with a complete list of medications post discharge. Please inform your certified scrum master/provider of your visit and for further instruction on these medications. Any specific questions regarding your chronic medications and dosages should be discussed with your primary care physician(s) and/or pharmacist. New Medications [facility], [address] [place], [place] [id number], [phone] ciprofloxacin ophthalmic (ciprofloxacin 0.3% ophthalmic solution) 2 [...] kg B (more content not included)... Normal [facility] Coding Summaryon 09-15-2022 Coding Summary HTMLBase 64 FgdpgfsnSFj8lBz+PGhlYWQ+PE1F KLPnE32rbHFteH9WL7wKOS0BKIND TRHRLB7MFX2ivZH6NGrbV9XouhTz AijqjMNeWG51HKy2RFM3cSuxXKsc jR9zpLFmK4x9CeHbLN89jB31BLoq HQYhAjW0IaFryxvdnJVe Z3rjPwOcmGIdYjg+PHRhYmxlIHdp UCCgHHekLLFfVhGpvQhfPA8dVd1n ZGVyLWNvbGxhcHNlOiBj q2vdVXOpGOllDS8xpMqaN7UtnRU7 PIXwn8k1Zp94dFE+ZJZoOLD7vHka KEhij478AhOai6lqPFW4 kYTwAAmqMFZ4S96rf8G5WOSyPKCp ZHZ1kCW8fC4vzAwpkjruI4TlfMWx TqY9NMB9mTDeyD1auAki bgxyxV8hZjt+X82WGG0CBQTEMT1C Qta5V4NqYsntaFR+CS96EHUpFY25 iCYmdANda7ojlJs5RgNb JVOxUTJ1mNjiCUwxs4ArCTIuF71q jSVhb8K2ALCxeOntdFDxEtQxnYX0 aS9vJVpfavfzz8dfkwzr Wgeyb2gqga75gN50G31uVUqtZJMg ZEQ2WIBjRUIfhMzzhg4uwD3mAs3+ ZGnoh1ywy2iukTt1GvNw BOWmtqYckLeqWRI9i5YwDc85F3Hp eVuif4KmPrm1hj57eDFts3F2iUT6 ZUyxBFJgnT0iAIgsMcF8 FLQhVfWbsK83pHLoHZldRw3puYep iUmiTE2cGZErlwebNIImcJ7eRHXl lHSslAogLO3rYZSvcaip k511JyFeYGE9DTJuySTbC3NidI8j WxUlTVXvKQHkZ5QrxSBkLXcwH914 VMoeKuK6PILnpqNlX5Gk RNRdcZliWaD1m3A5Dq5Ig0Ktjern CJL2BMfvITGlVoB5SaBaZwL3K5Kz Bba2VVAyxPciSD8hT7Xf TFVrxefvvympqIB9SPPnAZCjpQ14 bKJlZEccHu9ot5W7z003LAJwXJUn qS54Yq5sfFaxIOYlsDBZ xZ7akwzcw5nobvhiOuRnUSShGUw3 TMe5PBBojZxhHmNpVVM8YxV1DUN0 dTYjnK3kbIahoujqcA2l Oyc+W76gwB3uPJJ9IHL7dnesKWTo nbPpBZ43BX61C5QoBcqwwBTqvNG+ XOLifrQgtQnzES5hOwQp t2gxs4KfTLuuE4BdOAWlMVjfXra8 ZYVkVVQ0sPT8kX2rYLUnVCqyu0C7 rMY4F9OarnOimu5nv0bg NACtLBabD01jaPUks7R7EFNzcLO5 MQWgqAhmYmJauU67Ifb+PGNvbGdy p6TdXcnzl9jcf9dzhXs7 LaYyTNBwkvQobUzdFWR1b1KfNn06 K28rSKugIPQxZTYkZUOpCEHboFqm nn6esO6aXf4+PGNvbCB3 yPF4aF7jETRdDuI3QLehY115FoYe aPKfVusfb2nrs2kwfUn2ZcRjUFSl pvQofUkiPKM1o7QdSb44 E29mQQurWFGnKKTlKLXaGJUjgLsp lq8zaS7fNd3+BI6tk4hrns54nN35 dHI+NXRxAUN4qAfdHXrd ZOIamK0uTOapKfA8NPTsLgBurI52 oPWwLCfmWe0ywUitxXlhLR4aYDGi yihfz922YeMwk8kjZIDw jBJdAJzbWEE5X56ra5O1EKViTFMz HMR2tOW7mC6vaJozibfxtJHiiPtr ccAreIygEPfsYJlqG886 IHRvcDsnPlBhdGllbnQgTmFtZTo8 P9NkUcy6WMNogBgaEH1kkSHsPTlq Bx3qtGtcnGumXG2iQFJy jppaj832WyRpy3asEJWlyVUhBYmn LYN8H87fx3Y3SVRmOKLaOXI5nDR3 vV0wjStsozpneZRmeIas mpRmeHhjNVjkVJwhV187KDJzzAnv TcWmamRtJRLjjCL7MA37OG45cNKa k2E2gWA6T3QuUFJqtkya cqyqkDZ2SWEaHURsiD91Aj1wnRio Ie3oXJJuICK9CAUptDPeP7LztQ6y FsShBRWiEYLrO7LkjWMy MJpqQ100YTviTzN4LXXvfjGxM8Us HASmyLluDrE1v9C4Eo5ZU1D6AF23 KD28bMIyb3F8sOV4F3Vt YKTivqzvuvtdpVQ4IQCrVOOpcQ79 Rl3fdSnzOp8tKJKsQJX3TJFekISw X1RgaF2tDrCqWYTrNANh V2TmuGVoVKoqQ313MXlnFrJ8MYCe zeNiK8QrDMQgvTobHpD6k2O2Wb0J PYi5MP70VS86sZEgj0S4 xET4J7WnMTFtawrqpedqoTL0TOEb AHExsD89Uo9bxQqlDu7cDJYaZJN6 TPNlgJAtI9OdqY3gRxUg EZStNNZjI0MbtJWoVAzbC874IWsu YhH2UUGqqnCqJ4YkZHJmcAriYfQ1 s8R1Ez8GOAQwXB46WYF8 dUW1AA83HL59C0MzBokbbFXfqQC+ PHRhYmxlIHdpZHRoPScxMDAlJyBz lDdlEU6hXz3nLJTeNPQd lYmtuIMaXnVbl2xgBLYgNFpzTH3k yNvqV3YcmJQ7EPKqt6b9Kn65I62d F1CsxRY+TGWzeKQ5vFF9 dJ3bQoGeDuO3QVieL095VgUanLQz Mqbav7bgm1mwsDp4YvP2WHLwncJf kKcaMBB6d3AuFj38A20q KYktNOHwZZOeVMPtZXPgdGfcrl4u pO4wRx7+ZFRawCY0hCE2gN9iKjCr TtG8LNjiS589QlYguMYq Wktky4gsf2cjnYu8OhOqKKZbmeYo mPcqFVW2j0BmOc60R5WofXpvs4Fs Hiu2hn21yPTcz6R3eOX6 C2PvVBKguldglRIjgTpiZV5lRLMn ztlmJWMpmC0hXHNpI5z1YnLhVuI1 XIdeV4NmmlE5LXOdfPSs TTfmWIZ4E30pd6S5MLFbQTWeQWC7 ePF5aO6xiPtodgndvARpuCrebbFe iAofWUclXFjsX390CMDy uIdrFLJdiH3zKNNlfBIidJwkPF6b NTBpbjsnPldJTEtJTlMsIFBBSUdF IEFOTjwvdGQ+PHRkIHN0 mYfkOKmvLWUsbV1rYBOkR0o5UnYe HmE1GOkmM3EsOWRgzwxuZf99fI1f HqInOqW6RPnnW2LhfkQ3 JEKzoCJjHUjjBPF3N35uf1Z4UKIh OHKhVHN6fMG9zP3fkEqslxubgMFk dDsgdmVydGljYWwtYWxp L089NXLmpPiuKwTmNrMpBrT4RNo6 U8PpTri3AALahLttIS6ojJKcCYdq Kq9ubRjjdNtgOL8jFEEk pqlnIBDivD6wWLZyxFWijWwzGB5j CNIzxscsj189BpXaUGA6KBYsoQBz K8LobA3yBaAtQETbJIFu L0HzzUJsLKjwS527MHgfRyF1HWBd qzUwX4GvNMTejJnyAkW7m3J7Yr0u NSBZZWFyczwvdGQ+PHRk MYB6wMzmQYkaEZEeiU4bETGpP3g5 YiGtMqJ6CUbnU4LhEPThgzxfMi27 dH6fHaQeNjC3ICbeO6Gt fcR9ERWroFAgOSheFEY9S21uz3K4 FVXyYERhGRY3qHN3mV8wiAnjdnwb bGVmdDsgdmVydGljYWwt PSdbG324POOsoXnsAbXJQQCSDYep dGQ+VCYuAPZ4fWgvEVokGISycB1f IGQfN2t4EzTaAyD8BXxp U4SzFWMxiypwZp85lP0mRpFuDwU4 HXbtL7ChjjD6TYTfoCEsYSkoTOK9 H93za3C7UQXeYMJlRIH2 eCD1tK6udFymkchrgVVlyEmsnqXd mXzgVRmuTNxwK040HKHytPzdSt3B FF27RM54E1RkMlkpiEAy bGU+PHRhYmxlIHdpZHRoPScxMDAl AhKdpHqwAT3lEq5rINWqMNXvaWeq uIOpIlMqb2jwBMCoHNcm LH6qnSjfQ8AlqUQ3RTKpd4i7Je17 H86aP2TdsDD+RZGzpDI5fVS6sX5m FeYsLaE2EGemQ240FuHu kXFfVrbmo4ngu8oaoZo1BoJfXPYj aoFdoDsrVGC3m9ZnGl35Z41iLGxm ZHRoPSIyMCUiIHZhbGln ts0pwM5iMs6+CKNshXM3kGU2tH7t GvTrKxM4VBgxW793LvNcnNDkZlcy V76mQ4RwbNH+PHRyPjx0 RTNnxFsaHY1fwULjFTujAe2vIBZ5 LuYxLgLoLAaaH8LjOKOhtirhzzkm iKG6JDZwWOUmyM38Ka3o iIdwIm6vLPRfGEA0QQLonAMtD7Fc qL8kAmWfCLZgBPNkW0XyaJGzZOlv I030UZmoVnA0RRVfewOg P5GjYGTfyCfaVhH1h8H1Qo6RqWmx dZMdXJ2jEnDjCRh4F0LnVph6GBKj aGpzFS6zcMZhEFzjCf7b rOnlnRuiUT3uANFkhtvcv551LbSl f9krJQBkaLDcVSicSEJ9U00hg3S3 AAEhRPWbOLW3vWX8sT3g bGlnbjogbGVmdDsgdmVydGljYWwt RQfnV239TITfkVldTfPJApk8Y5Yp Otf8NBDqhFyhOF5clPLp LUpfEt9fvHjwkUkjSS3mUTTwyify p529ItAxq3prYXJysRThSYafLXD8 D50lo0R4KOLyNISaELU6 mWQ6xH5fsOjwalmbaZObdDmouiSj rNqwYNhyYPyaN070OQCzzKxaYc7A Nzt7G0BiAxk4VGWedMxi LH5ngOPrRUidPi6kzPyaxKmmIA8e KSZftqhkr787AqMwr8xhUWSbeRTv VCbyTUI0H64ee1Y8CFEa SVAtRRN5hRE7mA3axClezubojGVz uMhrftWetFgjYCbxPDxkK554LZWl cDsnPlBheWVyOjwvdGQ+ KT37et72M8YzJiphSyp2CWPdRZX2 fUR8jU7cHGDyPZrkz2J5iBI7R1Dz ybAtpd6bk5gkEYHrCPbx Y29 (more content not included)... Normal [facility] .QC SARS-CoV-2 (COVID-19)/Fl u/RSV (GeneXpert)on 09-08-2022 Internal Control Pass [facility] Comment on above: Order Comment: Order ed by Discern.[[email or web address]] Performed By: #### 7 [id number], [id number] ####[facility] (DEFAULT)[address] [place] [address] COVID/Flu/RSV (GeneXpert)on 09-08-2022 Flu A (GXpert COVFLURSV) Negative Normal Negative [facility] Comment on above: Performed By: #### 7 [id number] ####[facility] (DEFAULT)[address] [place] [address] Flu B (GXpert COVFLURSV) Negative Normal Negative [facility] Comment on above: Performed By: #### 7 [id number] ####[facility] (DEFAULT)[address] [place] [address] RSV (GXpert COVFLURSV) Negative Normal Negative [facility] Comment on above: Performed By: #### 7 [id number] ####[facility] (DEFAULT)[address] [place] [address] SARS-CoV-2 (COVID-19) RNA KALE+probe Ql (Unsp spec) Negative Normal Negative [facility] Comment on above: Result Comment: Perf ormed by PCR methodology. Performed By: #### 7 [id number], [id number] ####[facility] (DEFAULT)[address] [place] [id number] ED Clinical Summaryon 2022 ED Clinical Summary [facility] ? Urgent Care [address] [place] [address] Clinical Summary PERSON INFORMATION Name: BRAULIO CHAKRABORTY ROCÍO Age: 26 Years Sex: FEMALE : 1995 MRN: Acct#: Visit Reason: UC - Sinus Pain or Congestion; UC - Cough; COUGH, CONGESTION Arrival: 09/08/2022 13:55:11 Discharge: 09/08/2022 15:23:00 LOS: 000 01:28 Check In: 09/08/2022 13:55:11 Checkout: 09/08/2022 15:23:00 Address: [address] [place] [address] [place], [place] [id number] PCP: Alfonzo Addison MD PROVIDER INFORMATION Provider Role Assigned Unassigned ABRIL ARTHUR ED PA 09/08/2022 13:58:09 Dakota Crenshaw VP TREASURER Nurse 09/08/2022 14:02:32 VITALS INFORMATION Vital Sign Triage Latest Temperature Tympanic Temperature Temporal Artery Pulse Rate O2 Sat 98 % 98 % Respiratory Rate Blood Pressure /99 mmHg /99 mmHg MEDICAL INFORMATION Medications Given: Allergy Information: traMADol; Contrast Dye; Toradol; ketorolac; azithromycin PHYSICIAN DOCUMENTATION DISCHARGE INFORMATION: Discharge Disposition: Home Discharge Location: Home PATIENT EDUCATION INFORMATION Instructions: Community-Acquired Pneumonia, Adult, Wrsh-zc-Kodm; Hypertension, Adult; DASH Eating Plan Follow-Up: With: Address: When: Alfonzo dAdison [address] [place], [place] [id number] [facility] () Within 3 to 5 days Comments: Follow-up primary care provider for reevaluation next few days. Continue with supportive care plenty of rest and fluids, antibiotics and probiotics as discussed. Return to the emergency department for any worsening issues such as high spiking fevers, trouble breathing, or any other problems. DIAGNOSIS: Elevated blood pressure reading; Pneumonia Patient Understands: Yes - Patient/family/caregiver verbalizes understanding of instructions given Comment: [facility] ED Note - Physicianon 2022 ED Note - Physician Patient: BRAULIO HCAKRABORTY Age: 26 years Sex: FEMALE : 1995 [...] All Problems (Selected) Anxiety / SNOMED CT 81468693 / Confirmed Depression / SNOMED CT 50355840 / Confirmed High blood pressure / SNOMED CT 8102894759 / Confirmed PCOS (polycystic ovarian syndrome) / SNOMED CT 548861305 / Confirmed Migraine headache / SNOMED CT 61291557 / Confirmed Insomnia / SNOMED CT 559222857 / Confirmed Seasonal allergic rhinitis / SNOMED CT 203993558 / Confirmed Bronchial asthma / SNOMED CT 745802742 / Confirmed GERD (gastroesophageal reflux disease) / SNOMED CT 568020657 / Confirmed Obesity / SNOMED CT 0122067661 / Confirmed Hyperinsulinemia / SNOMED CT 025740338 / Confirmed Disease caused by 2019 novel coronavirus / SNOMED CT 2266651154 / Confirmed Objective CONST: -Well-developed well-nourished. -Acute distress: No -Vitals: reviewed. SKIN: -Gross abnormalities: No EYES: -EOM intact, LANNY: -Sclera conjunctiva: Unremarkable. ENT: - Normal pharynx pink and moist. NECK: -Supple (dtbe-ia-ttuqa): non-tender. CARD: -Rate and rhythm: Regular RESP: [...] Results review Lab results 09/08/2022 14:17 EST SARS-CoV-2(Covid19)PCR(GXper t COVFLURSV) Negative Flu A (GXpert COVFLURSV) Negative Flu B (GXpert COVFLURSV) Negative RSV (GXpert COVFLURSV) Negative Impression and Plan Assessment and Plan: Diagnosis: Pneumonia (ICZ26-QE J18.9), Elevated blood pressure reading (ZUE00-VU R03.0). Orders Orders Laboratory: SARS-CoV-2 (COVID-19)/Flu/RSV (GeneXpert) [...] on: 09/08/2022 15:44 EST] ABRIL ARTHUR Normal [facility] ED Patient Summaryon 023 ED Patient Summary [facility] ? Urgent Care [address] [place] [address] PATIENT DISCHARGE INSTRUCTIONS Patient Information Name: BRAULIO CHAKRABORTY Age: 26 Years Date of : 1995 Reason For Visit: UC - Sinus Pain or Congestion; UC - Cough; COUGH, CONGESTION Arrival Time: 09/08/2022 13:55:11 Primary Care Physician: Alfonzo Addison MD Attending Physician: ABRIL ARTHUR Comment: Patient Education With: Address: When: Alfonzo Addison [address] [place] [id number] Business (1) Within 3 to 5 days [...] these instructions at home: Medicines ? Take eqpb-knh-umxjyhh and prescription medicines only as told by [...] of age (more content not included)... Normal [facility] [place] 023 Urgent Care Record [facility] ? Urgent Care [address] [id number] PATIENT DISCHARGE INSTRUCTIONS Patient Information Name: BRAULIO CHAKRABORTY Age: 26 Years Date of : 1995 Reason For Visit: UC - Sinus Pain or Congestion; UC - Cough; COUGH, CONGESTION Arrival Time: 09/08/2022 13:55:11 Primary Care Physician: Alfonzo Addison MD Attending Physician: ABRIL ARTHUR Comment: Visit Diagnosis: Diagnoses This Visit Elevated blood pressure reading (R03.0) Pneumonia (J18.9) UC - Cough ([id number]) UC - Sinus Pain or Congestion ([id number]) If you received any narcotics, sedation, or [...] legal documents With: Address: When: Alfonzo Addison [facility] [place] [address] Business (1) Within 3 to 5 days Comments: Follow-up primary care provider for reevaluation next few days. Continue with supportive care plenty of rest and fluids, antibiotics and probiotics as discussed. Return to the emergency department for any worsening issues such as high spiking fevers, trouble breathing, or any other problems. Medication Information: The exam and treatment you received today in the [facility] were for an urgent problem and are not intended as complete care. It is important for you to follow up with a doctor, nurse practitioner, or physician?s oral surgery assistant for ongoing care. If your symptoms become [...] so we can reach you if necessary. [facility] has provided you with a complete list of medications post discharge. Please inform your certified scrum master/provider of your visit and for further instruction on these medications. Any specific questions regarding your chronic medications and dosages should be discussed with your primary care physician(s) and/or pharmacist. New Medications [facility], [address] [place], [place] [id number], [phone] albuterol (Ventolin HFA 90 mcg/inh inhalation aerosol) [...] Comments A (more content not included)... Normal [facility] XR Chest 2 Viewson 3 XR [...] MD 09/08/22 2:48 pm Technologist: TARUN ERICKSON [facility] MRI KNEE WO CONTRAST LEFTon 04-18-2017 MRI [facility] [place] [address] Patient Name: BRAULIO CELIS : 1995Sex: FAge: Race: WhiteMRN: [id number]. Location: LPOPPatient Status: DVisit #: [id number] Date: 04/18/2017 8:15:00 AMCompleted Date: 04/18/2017 08:53 AMRequesting Provider: MORIAH BOND Attending Provider: Report Copy To: OLMAN VELA Signs & Symptoms: Internal derangement knee, leftHistory: Order in RIS, No FB per mother Auth # [id number] Valid 04/06/17-05/06/17. Auth scanned into RIS.Comments: Exam: MRI KNEE WO CONTRAST LEFTAccession #: [id number] MRI KNEE WO CONTRAST LEFT 04/18/2017 8:53 [...] 16. Electronically signed by:Shiv Saba. Transcribed by: [email or web address], User Resident: Electronically Signed by: SHIV SABA @ 04/20/2017 02:46 PM Normal [facility] Vital Signs Date Time Vital Sign Value Performing Clinician Jelena garcia 08-18-2023 10:27-0500 Body mass index (BMI) [Ratio] 44.19 kg/m2 [employer] Work Phone: [facility] [employer] 08-18-2023 10:27-0500 Body weight 127.97 kg [employer] Work Phone: [facility] [employer] 08-18-2023 10:27-0500 Diastolic blood pressure 80 mm[Hg] [employer] Work Phone: [facility] [employer] 08-18-2023 10:27-0500 Systolic blood pressure 122 mm[Hg] [employer] Work Phone: [facility] [employer] 08-04-2023 10:46-0500 Diastolic blood pressure 85 mm[Hg] Yanelis Posey MD Work Phone: [employer] 08-04-2023 10:46-0500 Heart rate 85 /min Yanelis Posey MD Work Phone: [facility] 08-04-2023 10:46-0500 Systolic blood pressure 138 mm[Hg] Yanelis Posey MD Work Phone: [facility] 08-04-2023 08:25-0500 Body height 170.2 cm Yanelis Posey MD Work Phone: [facility] 08-04-2023 08:25-0500 Body mass index (BMI) [Ratio] 43.98 kg/m2 Yanelis Posey MD Work Phone: [facility] 08-04-2023 08:25-0500 Body weight 127.37 kg Yanelis Posey MD Work Phone: [facility] Encounters Encounter Date Encounter Type Care Provider Facility Start: 08-31-2023 Orders Only Carla Guerra [facility] r[facility]- Medicine at [facility] Comment on above: IUGR (intrauterine g rowth restriction) affecting care of mother, second trimester, not applicable or unspecified fetus; Chronic hypertension affecting ; Hx of preeclampsia, prior , currently , second trimester IUGR (intrauterine g rowth restriction) affecting care of mother, second trimester, not applicable or unspecified fetus (Primary Dx); Chronic hypertension affecting ; Hx of preeclampsia, prior , currently , second trimester Start: 08-20-2023 Documentation procedure Jeniffer WILLARD Work Phone: Maternal- Medicine at [facility] Comment on above: Outgoing Ca ll Start: 08-18-2023 End: 08-18-2023 ambulatory JACKY MOCK Not Available Start: 08-18-2023 End: 08-18-2023 flow sheet Jacky Mock DO Work Phone: [facility] Comment on above: Second trimester pre gnancy; Diabetes mellitus screening; Thyroid disease affecting ([facility]) Start: 08-17-2023 Telephone encounter Althea PARIKH [facility] Start: 08-06-2023 End: 08-07-2023 ambulatory ALFONZO CADIGAN [facility] Start: 08-05-2023 Documentation procedure Yanelis Posey MD Work Phone: Maternal- Medicine at [facility] Start: 08-05-2023 Telephone encounter Stacy Justin RN [facility] Start: 08-04-2023 Documentation procedure Carla Castillo bandar [employer]NOVATION MANAGER M[facility]- [facility] Start: 08-04-2023 Telephone encounter Leslie reese M[facility]- [facility] at [facility] Comment on above: Appointment IUGR (intrauterine g rowth restriction) affecting care of mother, second trimester, not applicable or unspecified fetus (Primary Dx); History of delivery, currently ; 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 trimester; Chronic hypertension affecting Start: 08-04-2023 End: 08-05-2023 [facility] Start: 08-04-2023 End: 08-04-2023 Office outpatient visit 40 minutes Yanelis Posey MD Work Phone: [facility]- [facility] Comment on above: IUGR (intrauterine g rowth restriction) affecting care of mother, second trimester, not applicable or unspecified fetus (Primary Dx); History of delivery, currently ; 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 trimester; Hx of preeclampsia, prior , currently , second trimester Start: 07-22-2023 End: 07-22-2023 ambulatory JACKY EMILI Not Available Start: 06-18-2023 End: 06-18-2023 ambulatory JACKY EMILI Not Available Start: 05-25-2023 End: 05-26-2023 ambulatory Alfonzo Addison MD Facility:[facility] Start: 04-29-2023 End: 04-30-2023 ambulatory DINORAH GILBERT Facility:[facility] Start: 04-14-2023 End: 04-15-2023 ambulatory Alfonzo Addison MD Facility:[facility] Start: 03-05-2023 End: 03-06-2023 ambulatory Alfonzo Addison MD Facility:[facility] Start: 01-05-2023 End: 01-05-2023 ambulatory Alfonzo Addison MD Facility:[facility] Start: 11-24-2022 End: 11-24-[address] DOCTOR RUTHERFORD Facility: Start: 11-18-2022 End: 11-19-2022 ambulatory Alfonzo Addison MD Facility:[facility] Start: 09-16-2022 End: 09-17-2022 ambulatory Alfonzo Addison MD Facility:[facility] Start: 09-08-2022 End: 09-08-2022 ambulatory Alfonzo Addison MD Facility:[facility] Start: 04-18-2017 End: 04-19-2017 Ambulatory MORIAH BOND Facility:[facility] Procedures Date Procedure Procedure Detail Performing Clinician Start: 08-18-2023 Urnls dip stick/tabl et rgnt non-auto w/o micrscp Jacky Emili DO Work Phone: Start: 08-04-2023 UNLISTED LAB TEST Yanelis Posey MD Work Phone: Plan of Treatment Date Care Activity Detail Author Start: 06-05-2031 DTaP,Tdap and Td Vaccines (7 - Td or Tdap) DTaP,Tdap and Td Vaccines (7 - Td or Tdap) [facility] Start: 08-04-2024 Adult BMI Screening Adult BMI Screen ing [facility] Start: 08-04-2024 Tobacco Screening Tobacco Screening [facility] Start: 08-04-2024 End: 08-04-2024 US MFM with or without consult US MFM with or without consult Imaging Routine IUGR (intrauterine growth restriction) affecting care of mother, second trimester, not applicable or unspecified fetus History of delivery, currently 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 trimester Chronic hypertension affecting Expected: 08/04/2024 (Approximate), Expires: 08/04/2024 [facility] Work Phone: Comment on above: Expected: 08/04/2024 (Approximate), Expires: 08/04/2024 Start: 09-15-2023 End: 09-15-2023 Patient encounter procedure 09/15/2023 10:20 AM EST Routine [facility] [address] [address] Jacky Mock, DO [address] [place] [address] [place] [address] [facility] Start: 08-18-2023 End: 08-18-2024 CBC panel - Blood by Automated count CBC Lab Routine Diabetes mellitus screening Expected: 08/18/2023 (Approximate), Expires: 08/18/2024 [facility] Work Phone: Comment on above: Expected: 08/18/2023 (Approximate), Expires: 08/18/2024 Start: 08-18-2023 End: 08-18-2024 Measurement of glucose 1 hour after glucose challenge for glucose tolerance test Glucose tolerance, 1 hour Lab Routine Diabetes mellitus screening Expected: 08/18/2023 (Approximate), Expires: 08/18/2024 [facility] Comment on above: Expected: 08/18/2023 (Approximate), Expires: 08/18/2024 Start: 08-17-2023 End: 08-17-2023 Patient encounter procedure [facility] Start: 08-05-2023 End: 08-05-2024 Unlisted Lab Test Unlisted Lab Test Lab Routine IUGR (intrauterine growth restriction) affecting care of mother, second trimester, not applicable or unspecified fetus Maternal care for other known or suspected poor growth, unspecified trimester, not applicable or unspecified Expected: 08/05/2023 (Approximate), Expires: 08/05/2024 [facility] Work Phone: Comment on above: Expected: 08/05/2023 (Approximate), Expires: 08/05/2024 Start: 03-13-2023 COVID-19 Vaccine ( season) COVID-19 Vaccine () [facility] Start: 03-13-2023 Influenza vaccination [facility] Start: 2017 Screening for malign ant neoplasm of cervix Pap Smear [facility] Start: 2014 Adult BMI Follow Up Plan Adult BMI Follow Up Plan [facility] Start: 2008 Depression Screening Depression Scre ening [facility] End: 08-03-2024 Beta-2 glycoprotein antibodies Beta-2 glycoprotein antibodies Lab Routine IUGR (intrauterine growth restriction) affecting care of mother, second trimester, not applicable or unspecified fetus 1 Occurrences starting 08/04/2023 until 08/03/2024 [facility] Work Phone: Comment on above: 1 Occurrences starti ng 08/04/2023 until 08/03/2024 Immunizations Immunization Date Immunization Notes Care Provider Pete olson 06-10-2022 influenza virus vaccine, unspecified formulation [facility] 06-05-2021 influenza, injectabl e, quadrivalent, preservative free [facility] 06-05-2021 tetanus toxoid, reduced diphtheria toxoid, and acellular pertussis vaccine, adsorbed [facility] 06-05-2021 influenza virus vaccine, unspecified formulation Jacky Mock DO Work Phone: [facility] Payers Date Payer Category Payer Unknown [id number] 2020 Unknown [id number] 1995 Unknown [id number] 2.16.84 [id number] 1995 Unknown [id number] 2.16.8 40.1.358336.3.579.2. 1996 Unknown [id number] 2.16.8 40.1.799431.3.579.2. 1996 Unknown [id number] 2.16.8 40.1.623406.3.579.2. 1996 Unknown [id number] 2.16.8 40.1.966299.3.579.2.8 1996 Unknown [id number] 2.16.8 40.1.054280.3.579.2.8 1996 Unknown [id number] 2.16.8 40.1.875528.3.579.2.718 1995 Unknown [id number] 2.16.8 40.1.338501.3.579.2.718 1995 Unknown [id number] 2.16.8 40.1.522458.3.579.2.718 1996 Unknown [id number] 2.16.8 40.1.567600.3.579.2.1286 1996 Unknown [id number] 2.16.8 40.1.892940.3.579.2.1286 1996 Unknown [id number] 2.16.8 40.1.110407.3.579.2.1286 1996 Unknown [id number] 2.16.84 0.1.762351.3.579.2.1259 1996 Unknown [id number] 2.16.84 0.1.078833.3.579.2.1259 1996 Unknown [id number] 2.16.840 .1.583114.3.579.2.1259 1996 Unknown [id number] 2.16. 840.1.716916.3.579.2.175 1959 Unknown [id number] Unknown [id number] Social History Date Type Detail Facility Start: 12-19-2022 End: 05-25-2023 Tobacco smoking status WYIS Never smoked tobacco [facility] Start: 05-25-2023 Tobacco use and exposure Smokeless tobacco non-user [facility] Start: 08-04-2023 End: 08-18-2023 Alcohol intake Ex-drinker (finding) [facility] Start: 03-21-2020 End: 08-23-2020 History of Social function [facility] Start: 03-21-2020 End: 08-23-2020 Alcohol Use Disorder Identification Test - Consumption [AUDIT-C] [facility] Frequency of Alcohol Consumption Never [facility] Start: 03-26-2023 [facility] Start: 1995 Sex Assigned At Female [facility] Start: 04-22-2021 Gender identity Identifies as female gender (finding) [facility] Start: 04-22-2021 Sexual orientation Heterosexual (finding) [facility] Start: 12-19-2022 Alcohol Comment occasional [facility] Goals Date Patient Goal Desired Activity /State Personal health goal Clinical Notes 09-08-2022 to 08-31-2023 Yanelis Posey MD - 08/31/2023 5:05 PM ESTCRISSY Acevedo - 08/20/2023 3:46 PM CRISSY Renae - 08/20/2023 9:04 AM Cady Andrea LPN - 08/18/2023 10:20 AM EST Note Date & Type Note Facility 08-31-2023 History of Present illness Narrative M lab results This patient was diagnosed with relatively early 2nd trimester growth restriction and possible coiling variant of umbilical cord. She was seen originally in then scheduled to return in approximately 2 weeks. CMV and toxoplasmosis antibody testing recommended. Results not available (yet? ). The patient desired carrier testing. 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 She was considering paternal testing. Results otherwise discussed at that time. We noted that the patient has not returned for follow-up. The patient may be receiving care in a different Health System. If in our health system for consultative care, recommend we again see the patient unless appointment is already scheduled I am not aware. I will copy this note to the patient's primary OB provider (Dr. Mock). We are available to see the patient. Additionally, either by telephone, telehealth, or in-person, subsequent full genetic counseling visit could be arranged. We will recommend our office is contacted for rescheduling unless rescheduling already occurred. Otherwise, please let us know if we are needed for additional involvement in this patient's care. Yanelis Posey MD Professor, [facility] Maternal Medicine documented in this encounter [facility] 08-20-2023 History of Present illness Narrative Summary: MOB carrier screening results Braulio left me VM regarding carrier screening, I gave her a call back and we discussed her results. 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 We reviewed the natural history and etiology of these conditions. She understood and had no additional questions. We discussed carrier testing for FOB. The patient will talk to FOB first before deciding whether or not to proceed with FOB carrier screening. I encouraged the patient to reach out if additional questions or concerns come up. documented in this encounter [facility] 08-20-2023 History of Present illness Narrative Summary: Carrier Screening Results Called and left VM for Braulio requesting a call back regarding carrier screening results. documented in this encounter [facility] 08-18-2023 History of Present illness Narrative Reason for Appointment: Patient ID: Braulio Chakraborty is a 27 y.o. female who presents for Routine Visit Patient presents today for Return OB appointment. Current Medications: has a current medication list which includes the following prescription(s): b-12, labetalol, levothyroxine, metoclopramide, omeprazole, and pyridoxine. Medical History: Active Ambulatory Problems Diagnosis Date Noted Anxiety 02/12/2023 Bronchial asthma ([facility]) 02/12/2023 Depression ([facility]) 02/12/2023 Essential hypertension (CMS/HCC) 02/12/2023 GERD (gastroesophageal reflux disease) 02/12/2023 Insomnia 02/12/2023 Maternal care for other known or suspected poor growth, unspecified trimester, not applicable or unspecified 05/28/2021 Migraine headache (CMS/HCC) 02/12/2023 Morbid obesity (CMS/HCC) 02/12/2023 PCOS (polycystic ovarian syndrome) 02/12/2023 Seasonal allergic rhinitis 02/12/2023 Resolved Ambulatory Problems Diagnosis Date Noted No Resolved Ambulatory Problems Past Medical History: Diagnosis Date History of Hyperthyroidism (CMS/[facility]) Hypothyroidism (CMS/[facility]) Insulin resistance Morbid obesity with body mass index (BMI) of 40.0 to 49.[address] ([facility]) Pap smear for cervical cancer screening 11/24/2022 Family History Problem Relation Name Age of Onset Hypertension Mother Stroke Mother Diabetes Father Hypertension Father Hyperlipidemia Father Heart disease Father Stroke Father Mental illness Father Hypertension Maternal Grandmother Cancer Paternal Grandfather Social History Tobacco Use Smoking status: Never Smokeless tobacco: Not on file Substance Use Topics Alcohol use: Not Currently Comment: occasional Drug use: Never Past Surgical History: Procedure Laterality Date SECTION, LOW TRANSVERSE MOLE REMOVAL 12/2011 benign [place] KNEE SCOPE,CLEAN/DRAIN Left 09/2014 TONSILLECTOMY TUMOR REMOVAL Right 11/2011 Calf tumor- benign Allergies Allergen Reactions Ketorolac Tromethamine Hives Other Sara contrast Ultram [Tramadol] Hives Zithromax [Azithromycin] Hives Review of Systems: Review of Systems Constitutional: Negative. HENT: Negative. Eyes: Negative. Respiratory: Negative. Cardiovascular: Negative. Gastrointestinal: Negative. Genitourinary: Negative. Musculoskeletal: Negative. Skin: Negative. Neurological: Negative. All other systems reviewed and are negative. Hematological: Negative. Endocrine: Negative. Allergic/Immunologic: Negative. Objective Physical Exam Constitutional: Appearance: Normal appearance. She is well-developed. Cardiovascular: Rate and Rhythm: Normal rate and regular rhythm. Pulmonary: Effort: Pulmonary effort is normal. Breath sounds: Normal breath sounds. Abdominal: General: Bowel sounds are normal. There is no distension. Palpations: Abdomen is soft. Tenderness: There is no abdominal tenderness. There is no guarding or rebound. Musculoskeletal: General: No swelling. Normal range of motion. Right lower leg: No edema. Left lower leg: No edema. Neurological: Mental Status: She is alert and oriented to person, place, and time. Skin: General: Skin is warm and dry. Psychiatric: Mood and Affect: Mood normal. Behavior: Behavior normal. Vitals and nursing note reviewed. Exam conducted with a link machine operator present. Vitals: Estimated body mass index is 44.19 kg/m as calculated from the following: Height as of 01/20/23: 5' 7 . Weight as of this encounter: 282 lb 1.9 oz. BP: 122/80 Patient's last menstrual period was 03/12/2023. Assessment/Plan Encounter Diagnoses Name Primary? Second trimester Diabetes mellitus screening Thyroid disease affecting ([facility]/HCC) Patient presents today for a routine obstetrics appointment. Patient is currently 22w5d with a Estimated Date of Delivery: 12/17/23. Pt doing well- reviewed recent [facility] appt. Pt to return to [facility] in 2 weeks. Pt to return in 4 weeks for scheduled OB appt. Documented by Virginia Andrea LPN on behalf of: Jacky Mock DO documented in this encounter [facility] 08-17-2023 Miscellaneous Notes Patient returned call states she is being seen somewhere else. documented in this encounter [facility] 08-17-2023 Telephone encounter Note Patient returned call states she is being seen somewhere else. [facility] 08-17-2023 Miscellaneous Notes Please call us back to get rescheduled for your jordan. documented in this encounter [facility] 08-17-2023 Telephone encounter Note Please call us back to get rescheduled for your jordan. [facility] 08-05-2023 Miscellaneous Notes Left message for patient that an additional lab has been ordered that needs to be drawn at a [facility] lab only. Call back phone number given if patient has questions. Patient returned call to [facility] and will have additional lab done at a [facility] lab. Patient also had concerns regarding future Doppler US being done here at [facility]. Patient will do initial Doppler here and may need to do [place] due to son having surgery in [place]. documented in this encounter [facility] 08-05-2023 Telephone encounter Note Left message for patient that an additional lab has been ordered that needs to be drawn at a [facility] lab only. Call back phone number given if patient has questions. [facility] 08-05-2023 Telephone encounter Note Patient returned call to [facility] and will have additional lab done at a [facility] lab. Patient also had concerns regarding future Doppler US being done here at [facility]. Patient will do initial Doppler here and may need to do [place] due to son having surgery in [place]. [facility] 08-05-2023 History of Present illness Narrative Maternal- Medicine Some lab results still pending. Lab note will be placed when final results are available. CMV serology IgM and IgG results available. IgM negative. Not likely evidence of recent infection. However, because testing performed relatively early gestational age, CMV avidity testing will be an additional noninvasive way to screen. So, testing negative so far but the patient should undergo CMV avidity testing. Yesterday we told the patient that this might be necessary and is not uncommon in this situation. I will place lab order for CMV avidity testing. I will recommend that the lab is drawn at 1 of the [facility] locations because it seems that result availability and of test and correctly performed test is more likely when ordered through our Internal lab. I will ask our nursing staff to contact the patient and relay instructions. Yanelis Posey MD Professor, [facility] Maternal Medicine documented in this encounter [facility] 08-04-2023 History of Present illness Narrative Lab drawn for cell-free DNA testing. Patient tolerated well. (Lab came to draw ) documented in this encounter [facility] 08-04-2023 Miscellaneous Notes Patient refused to schedule umb doppler in 3 weeks. Son is having surgery and she will call at a later time to schedule. documented in this encounter [facility] 08-04-2023 Telephone encounter Note Patient refused to schedule umb doppler in 3 weeks. Son is having surgery and she will call at a later time to schedule. [facility] 08-04-2023 History of Present illness Narrative Headache/epigastric pain/blurry vision/swelling? No Cramping/contractions? No Abnormal vaginal discharge? No Spotting or vaginal bleeding? No Loss of fluid like your water may have broken? No Recent ER visits or hospitalizations? 1 month ago bleeding from uti Any concerns that you would like me to mention to the provider today? No VISIT RECOMMENDATIONS ARE OUTLINED IN BOLD AT THE BOTTOM OF THIS NOTE. Dear Dr. Mock: Thank you for sending this patient secondary to chronic hypertension in and prior history of preeclampsia and growth restriction. Patient also has hypothyroidism Please also see any US note and (if concomitant visit) Genetic counselor note. Total time by Dr. Posey is in addition to time needed to perform and interpret any ultrasound. Overall care, Zika virus screening, Covid-19 vaccination counseling, influenza vaccination counseling and unrelated Genetic screening (cystic fibrosis, muscular dystrophy, thalassemia, sickle cell trait, etc.) is as per the excellent care of the patient's provider team. Please note that ultrasound is not diagnostic for aneuploidy, will not detect all structural abnormalities, and is not diagnostic for Genetic diseases, even if multiple exams are performed during a given . Report prepared via voice recognition software. Although report is reviewed for accuracy prior to finalization, unrecognized typographical errors may be present. Please contact us with any questions regarding report. Total time of visit today was 45 minutes. 34 minutes were direct [id number] for counseling and coordination of care during visits itself. An additional 4 minutes or for same day preparation to see the patient. Another 7 minutes were needed were needed to prepare report and or to perform other duties to complete visit. Thank you for sending this patient. Yanelis Posey MD Maternal Medicine Professor, [facility] [phone]- Office [phone]- Personal Cell Phone Office Note: Chronic hypertension in Hypothyroidism in Prior history of preeclampsia with delivery Prior history of growth restriction with delivery PCOS in History of infertility (current spontaneous) Current Outpatient Medications on File Prior to Visit Medication Sig docusate sodium (COLACE) 100 mg capsule Take 1 capsule (100 mg total) by mouth 2 (two) times a day. escitalopram (LEXAPRO) 5 mg tablet Take 1 tablet (5 mg total) by mouth in the morning. labetaloL (NORMODYNE) 100 mg tablet Take 3 tablets (300 mg total) by mouth in the morning and 3 tablets (300 mg total) before bedtime. levothyroxine (SYNTHROID, LEVOTHROID) 75 MCG tablet Take 1 tablet (75 mcg total) by mouth in the morning. metoclopramide (REGLAN) 5 mg tablet Take 1 tablet (5 mg total) by mouth in the morning and 1 tablet (5 mg total) at noon and 1 tablet (5 mg total) in the evening and 1 tablet (5 mg total) before bedtime. omeprazole (PriLOSEC) 20 mg capsule Take 1 capsule (20 mg total) by mouth in the morning. ondansetron ODT (ZOFRAN ODT) 4 mg disintegrating tablet Dissolve 1 tablet (4 mg total) on tongue 3 (three) times a day as needed for nausea for up to 3 doses. buPROPion (WELLBUTRIN) 100 mg tablet Take 300 mg by mouth daily. (Patient not taking: Reported on 03/01/2021 ) famotidine (PEPCID) 10 mg tablet Take 10 mg by mouth 2 (two) times a day. (Patient not taking: Reported on 03/01/2021 ) montelukast (SINGULAIR) 10 mg tablet Take 10 mg by mouth nightly. (Patient not taking: Reported on 03/01/2021 ) NIFEdipine CC (ADALAT CC) 30 mg 24 hr tablet Take 30 mg by mouth daily. (Patient not taking: Reported on 06/19/2023) ondansetron (ZOFRAN) 4 mg tablet Take 1 tablet (4 mg total) by mouth every 8 (eight) hours as needed for nausea or vomiting. (Patient not taking: Reported on 08/04/2023) No current facility-administered medications on file prior to visit. Patient also uses low-dose aspirin 81 mg per day since 12 weeks' gestation Vitals: 08/04/23 1046 BP: 138/85 Pulse: 85 This patient returns for follow-up of issues as noted above. The patient has hypothyroidism. Current dose of levothyroxine was confirmed. Most recent TSH on current dose was 2.787 (just above in threshold). TSH significantly improved from previous. Patient compliant with medication The patient has a prior history of both preeclampsia as well as growth restriction. delivery was required. In this , the patient uses low-dose aspirin. She underwent cell free DNA screening earlier in . She is unaware of maternal genetic carrier testing decisions or results. She denies maternal symptoms of infection, symptoms of bleeding, contractions, or other related symptomatology. She has a history asthma. Several of the medications as noted above the patient no longer uses (medication list corrected at end of visit). The patient saw my colleague Dr. Martinez previously. I confirmed the patient's understanding of chromosomal screening and or diagnostic testing (as well as genetic carrier testing). Please note that ultrasound is not diagnostic for chromosomal abnormalities, will not detect all structural abnormalities, and is not diagnostic for genetic disorders even if multiple exams are performed in a given . Chromosomal screening such as with cell free DNA testing not diagnostic. Amniocentesis an example of a diagnostic test for chromosomal abnormality or specific genetic disorder. Genetic disorder risk typically requires maternal and possibly paternal carrier testing. At imaging today, Ricketts observed. Referenced estimated weight at 6th percentile. Measurements consistent with new diagnosis of growth restriction. No structural abnormalities observed. umbilical cord relatively hypo coiled. Please see report. New onset growth restriction diagnosed. growth restriction diagnosed for confirmed. We reviewed diagnosis of growth restriction. Current criteria for diagnosis of growth restriction during are for the fetus to demonstrated estimated weight of less than the 10th percentile and or an abdominal circumference measurement less than the 10th percentile (typically with lower expected normal range growth). We reviewed potential causes and etiologies. Discussion included explanation about constitutionally small fetus diagnosis. Constitutionally small fetus diagnosis is a diagnosis of exclusion, which usually is not as likely in patients diagnosed earlier in gestation. Other causes include intrinsic etiology such as chromosomal abnormalities, karyotype abnormalities, and or intrauterine infection. Diagnosis of karyotype abnormalities and genetic disorders reviewed in context of screening and/or diagnostic testing. Amniocentesis would be an example of a diagnostic test. Diagnostic yield with genetic carrier testing for the workup of growth restriction in patients without other clinical cues of genetic disorder usually relatively low. However, since growth restriction diagnosed relatively early in , expanded testing ordered. Patient does not have any travel risk factors suggestive of increased risk for Zika virus infection. Two thousand twenty society Maternal- Medicine guidelines no longer recommend serology assessment for the evaluation of potential CMV or toxoplasmosis risk. Additionally, arbitrary assessment of toxoplasmosis infection comorbidity no longer recommended unless clinical circumstances or finding suggests an increased risk since toxoplasmosis itself typically is not primarily associated with growth restriction as an isolated finding. CMV evaluation via amniocentesis with PCR testing reviewed. Diagnostic accuracy is greater after 22 weeks gestation. Ultrasound may not detect all cases of torch infection. An unremarkable ultrasound is somewhat reassuring but not exclusionary. Although growth restriction in this may be recurrent and potentially associated with impaired chronic placental dysfunction as likely present previously, we will order CMV and toxoplasmosis testing. Given relatively early gestational age, CMV avidity testing might be of use if as needed. The patient declined invasive diagnostic testing. Structural imaging did not demonstrate any abnormalities. Hyper coiling of umbilical cord may be associated with an increased risk of chromosomal abnormalities. Hypo coiling has an uncertain association and may also be associated with impaired placental function and or development. In any case, the patient is not currently interested in amniocentesis. We discussed amniocentesis assessment of CMV risk association. The patient is not interested in amniocentesis for either chromosomal evaluation or evaluation of infection. Reviewed management. Risk of stillbirth is increased in the risk progressively increases as gestational age advances. Delivery timing is a balance of risk to benefit. General recommendation is for initiation of surveillance at 28 weeks gestation although individual decision making regarding earlier onset of surveillance in patients at earlier gestational age can result in initiation of surveillance at onset of unaffected presumed viability gestational age. NST assessment should be performed with weekly AFV. At an after 36 weeks gestation (if applicable), we recommend increasing NST assessment to twice per week. Doppler assessment needs to be followed. In patients with uncomplicated Doppler assessment, we normally recommend reassessment in 1 week. If Doppler profile is stable, recommend umbilical artery Doppler assessment every 2 weeks until delivery. growth assessment needs to be repeated every 4 weeks, although typically we will bring the patient back in 3 weeks initially to coincide with a Doppler visit. growth restriction in this patient diagnosed at 20 weeks' gestation. Current gestational age approximately 2 weeks before Doppler assessment clinically useful for ongoing management. We will initiate Doppler assessment in approximately 2 weeks. Since we will be seeing the patient in 2 weeks, if Doppler unremarkable then, this patient will then return 2 weeks later and have her next ultrasound then rather than in 3 weeks from today as otherwise recommended and outlined above. Severe growth restriction characterized by an estimated weight of less than the third percentile. In patients with diagnosis of severe growth restriction, delivery is recommended at 37 weeks gestation unless Doppler a testing abnormalities indicate a need for earlier delivery. Patient is without severe growth restriction carry a recommendation for delivery at 38 weeks and 0 days through 39 weeks and 0 days gestation unless comorbidities or confounding issues suggest that delivery should occur earlier. The risk of neurodevelopmental outcomes is worse in fetuses with the diagnosis of growth restriction. Heterogeneous the in the underlying cause or causes will affect outcome however. Additionally, the gestational age of delivery also will affect outcome risk. Chronic hypertension recommended management discussed previously. Blood pressure today technically unremarkable as final results. The patient's supplies blood pressure logs to primary OB provider on an on going basis. If this patient were to develop poorly controlled hypertension, would use a lower threshold for reassessment of potential superimposed preeclampsia diagnosis, particularly given underlying diagnosis growth restriction now observed. TSH much improved. However it looks as if an additional doses adjustment should be made. We increased levothyroxine dosing to 100 mcg per day. At this point, next follow-up TSH and free T4 need to be obtained 3-4 weeks after this adjustment rather than earlier. Comments, conclusions, recommendations: We increase the patient's levothyroxine dose to 100 mcg per day. TSH should be maintained between lower limit of lab normal and upper limit of 2.5 [employer]ber[employer] Unit per L and ffree T4 should optimally be in the upper 1/3 to 1/2 of normal range. Thyroid studies should be reassessed now 3-4 weeks after dosage adjustment today. We assume primary OB provider will reassess for remainder . Please see consultation by Dr. Martinez from earlier in . growth restriction diagnosed. Current gestational age is previable. We scheduled the patient to return in 2 weeks (22 weeks gestation) for Doppler assessment and follow-up visit. growth restriction recurrent. Etiology likely placental-vascular if as with prior . However, because growth restriction diagnosis relatively early, we will assess CMV and reassess other selected torch etiologies. We will relay unremarkable results to primary OB provider. We let the patient be aware that our office staff could possibly contact her for CMV avidity testing follow-up. The patient also chose to undergo expanded carrier testing. The patient declined invasive diagnostic testing for chromosomal and or viral diagnosis. Because growth restriction recurrent, we also ordered acquired thrombophilia testing given that the patient also was previously diagnosed with preeclampsia in prior . Blood pressure control adequate and within range. Primary recommendations previously outlined by Dr. Martinez. The patient assesses her own blood pressure and frequently reports to primary OB provider office. Thank you for letting us see this patient today. She has follow-up scheduled in our office. Primary and overall management of is as per excellent care primary OB provider team. documented in this encounter [facility] 01-05-2023 Note Patient Education Ma terials Follows: [...] wine (148 mL (more content not included)... [facility] 09-08-2022 Note Patient Education Ma terials Follows: [...] skin, beans, e (more content not included)... [facility] Evaluation note Diagnosis IUGR (intrauterine growth restriction) affecting care of mother, second trimester, not applicable or unspecified fetus- Primary History of delivery, currently with history of pre-term labor 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 trimester Chronic hypertension affecting [facility] Diagnosis IUGR (intrauterine growth restriction) affecting care of mother, second trimester, not applicable or unspecified fetus- Primary History of delivery, currently with history of pre-term labor 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 trimester Hx of preeclampsia, prior , currently , second trimester [facility] Diagnosis IUGR (intrauterine growth restriction) affecting care of mother, second trimester, not applicable or unspecified fetus- Primary Maternal care for other known or suspected poor growth, unspecified trimester, not applicable or unspecified [facility] Diagnosis Second trimester state, incidental Diabetes mellitus screening Screening for diabetes mellitus Thyroid disease affecting ([facility]) documented in this encounter [facility]* Diagnosis IUGR (intrauterine growth restriction) affecting care of mother, second trimester, not applicable or unspecified fetus Chronic hypertension affecting Hx of preeclampsia, prior , currently , second trimester [facility] Diagnosis IUGR (intrauterine growth restriction) affecting care of mother, second trimester, not applicable or unspecified fetus- Primary Chronic hypertension affecting Hx of preeclampsia, prior , currently , second trimester [facility] filedocument[facility] in [facility] filedocumented in this [facility] filedocumented in this [facility] filedocumented in [facility] filedocumented in this encounter [facility] Summary Purpose Family History No Family History Records FoundNo Family History Records FoundNo Family History Records FoundNo Family History Records FoundNo Family History Records FoundNo Family History Records Found Advance Directives No Advanced Directives Records FoundLatest Code Status on File Code Status Date Activated Date Inactivated Comments Full Code 05/28/2021 11:19 AM 06/05/2021 10:50 PM Latest Code Status on File Code Status Date Activated Date Inactivated Comments Full Code 05/28/2021 11:19 AM 06/05/2021 10:50 PM Reason for Referral Specialty Diagnoses / Procedures Referred By Ashtyn chand Referred To Contact Maternal and Medicine Diagnoses IUGR (intrauterine growth restriction) affecting care of mother, second trimester, not applicable or unspecified fetus History of delivery, currently 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 trimester Chronic hypertension affecting Procedures US MFM with or without consult Yanelis Posey MD [address] [place] [address] [facility] Maternal Med [address] [place] [address] Referral ID Status Reason Start Date Expiration Date V isits Requested Visits Authorized [id number] Pending Review 08/04/2023 08/03/2024 1 1 Additional Source Comments INFORMATION SOURCE (unrecogn ized section and content) DATE CREATED AUTHOR 01/05/2018 [facility] DATE CREATED AUTHOR AUTHOR'S ORGANIZ ATION 11/25/2022 [facility] DATE CREATED AUTHOR AUTHOR'S ORGANIZ ATION 07/08/2023 [facility] DATE CREATED AUTHOR AUTHOR'S ORGANIZ ATION 08/08/2023 [facility] DATE CREATED AUTHOR AUTHOR'S ORGANIZ ATION 08/19/2023 [facility] DATE CREATED AUTHOR AUTHOR'S ORGANIZ ATION 09/11/2023 [facility] Reason for Visit (unrecogniz ed section and content) Reason Onset Date Comments Appointment 08/04/2023 Reason Comments Hypertension Reason Comments Routine Visit Reason Onset Date Comments Outgoing Call 08/20/2023 Care Teams (unrecognized sec tion and content) Die Holder Relationship Specialty Start Date End Date Alfonzo Addison MD [address] [place] [address] [id number] PCP - General Family Medicine 04/05/20 Die Holder Relationship Specialty Start Date End Date Alfonzo Addison MD [address] [place] [address] [id number] PCP - General Family Medicine 04/05/20 Die Holder Relationship Specialty Start Date End Date Alfonzo Addison MD [address] [place] [address] [id number] PCP - General Family Medicine 04/05/20 Die Holder Relationship Specialty Start Date End Date Alfonzo Addison MD [address] [place] [address] [id number] PCP - General Family Medicine 04/05/20 Die Holder Relationship Specialty Start Date End Date Alfonzo Addison MD [address] [place] [address] [id number] PCP - General Family Medicine 04/05/20 Die Holder Relationship Specialty Start Date End Date Alfonzo Addison MD [address] [place] [address] [id number] PCP - General Family Medicine 04/05/20 Die Holder Relationship Specialty Start Date End Date Alfonzo Addison MD [address] [place] [address] [id number] PCP - General Family Medicine 04/05/20 Die Holder Relationship Specialty Start Date End Date Alfonzo Addison MD [address] [place] [address] [id number] PCP - General Family Medicine 12/22/22 Die Holder Relationship Specialty Start Date End Date Alfonzo Addison MD [address] [place], [id number] PCP - General Family Medicine 04/05/20 FOR RECORDS PERTAINING TO PATIENTS WHO ARE [...] BE BASED ON THE PRIMARY CLINICAL RECORDS. [facility]. provides no warranty or guarantee of the accuracy or completeness of information in this document.
[2023-09-13 10:25] VITALS: BP 137/86; PULSE 78
[2023-09-13 10:42] VITALS: BP 129/74; PULSE 81
[2023-09-13 10:57] VITALS: BP 134/82; PULSE 77
[2023-09-13 11:12] VITALS: BP 137/86; PULSE 72
[2023-09-13 11:27] VITALS: BP 129/81; PULSE 71
[2023-09-13 11:37] LABS: Bilirubin Urine NEGATIVE (NEGATIVE); Blood Urine NEGATIVE (NEGATIVE); Clarity Urine CLEAR (CLEAR); Color Urine YELLOW (YELLOW); Glucose Urine UA NEGATIVE (NEGATIVE); Ketones Urine TRACE mg/dL (NEGATIVE); Leukocyte Esterase Urine NEGATIVE (NEGATIVE); Nitrite Urine NEGATIVE (NEGATIVE); Protein Urine NEGATIVE (NEG/TRACE); Specific Gravity Urine >=1.030 (1.005-1.025); Urobilinogen Urine 0.2 EU/dL (0.2-1.0)
[2023-09-13 11:39] LABS: Urine Microscopic Indicated NO
[2023-09-13 12:06] LABS: Basophils Absolute Auto 0.1 10^3/uL (0.0-0.1); Basophils Percent Auto 0.6 % (0.2-2.0); Eosinophils Absolute Auto 0.2 10^3/uL (0.0-0.7); Eosinophils Percent Auto 1.3 % (0.9-7.0); Hematocrit 36.3 % (36.0-48.0); Hemoglobin 12.4 g/dL (12.0-16.0); Immature Granulocytes Abs Auto 0.08 10^3/uL (0.00-0.03); Immature Granulocytes Pct Auto 0.6 % (0.0-0.5); Lymphocytes Absolute Auto 3.1 10^3/uL (1.2-3.8); Lymphocytes Percent Auto 24.6 % (20.5-60.0); Mean Corpuscular HGB Conc 34.2 g/dL (29.9-35.2); Mean Corpuscular Hemoglobin 30.8 pg (26.7-34.0); Mean Corpuscular Volume 90.1 fL (81.0-99.0); Mean Platelet Volume 9.5 fL (9.5-13.5); Monocytes Absolute Auto 0.6 10^3/uL (0.3-0.8); Monocytes Percent Auto 4.8 % (1.7-12.0); Neutrophils Absolute Auto 8.6 10^3/uL (1.4-6.5); Neutrophils Percent Auto 68.1 % (43.0-75.0); Platelet Count 344 10^3/uL (150-450); Red Blood Count 4.03 10^6/uL (4.20-5.40); Red Cell Distribution Width 12.3 % (11.0-15.0); White Blood Count 12.7 10^3/uL (4.0-11.0)
[2023-09-13 12:11] LABS: Total Protein Urine Random 26.8 mg/dL (<=11.9)
[2023-09-13 12:14] LABS: Alanine Aminotransferase 19 U/L (14-59); Aspartate Amino Transferase 19 U/L (15-37); Estimated GFR (African America >60 (>=60); Estimated GFR (Non-African Ame >60 (>=60); Uric Acid 6.2 mg/dL (2.6-6.0)
[2023-09-13 12:44] LABS: Partial Thromboplastin Time 26.3 sec (22.3-36.2); Prothrombin Time 9.8 sec (9.0-11.6)
[2023-09-13 12:46] LABS: INR <0.93
--- NOTE | 2023-09-13 12:49 | PC.NURSE ---
labs reviewed with pt and Dr Kay and dc order given. Reviewed dc instructions with pt and symptoms to monitor for
[2023-09-13 13:04] LABS: Fibrinogen 605 mg/dL (200-400)
== END 2023-09-13 12:51 | disposition home or self-care (01) ==
PROVIDERS: Admitting Provider Obstetrics & Gynecology Gynecology; PCP Family Medicine; Visit Provider Obstetrics & Gynecology Gynecology
DX: O13.2 Gestational [pregnancy-induced] hypertension without significant proteinuria, second trimester (principal); Z3A.26 26 weeks gestation of pregnancy
CPT/HCPCS: 36415; 81003; 82565; 82570; 84156; 84450; 84460; 84520; 84550; 85025; 85384; 85610; 85730; G0378; G0379

== ENCOUNTER 2023-09-21 15:11 | Outpatient (OUT) | payer BC, SELFPAY ==
[2023-09-21 16:40] LABS: Basophils Absolute Auto 0.1 10^3/uL (0.0-0.1); Basophils Percent Auto 0.4 % (0.2-2.0); Eosinophils Absolute Auto 0.2 10^3/uL (0.0-0.7); Hematocrit 36.2 % (36.0-48.0); Hemoglobin 12.2 g/dL (12.0-16.0); Immature Granulocytes Abs Auto 0.07 10^3/uL (0.00-0.03); Immature Granulocytes Pct Auto 0.5 % (0.0-0.5); Lymphocytes Absolute Auto 3.6 10^3/uL (1.2-3.8); Lymphocytes Percent Auto 23.7 % (20.5-60.0); Mean Corpuscular HGB Conc 33.7 g/dL (29.9-35.2); Mean Corpuscular Hemoglobin 30.7 pg (26.7-34.0); Mean Corpuscular Volume 91.2 fL (81.0-99.0); Mean Platelet Volume 9.9 fL (9.5-13.5); Monocytes Absolute Auto 0.7 10^3/uL (0.3-0.8); Monocytes Percent Auto 4.6 % (1.7-12.0); Neutrophils Absolute Auto 10.5 10^3/uL (1.4-6.5); Neutrophils Percent Auto 69.8 % (43.0-75.0); Platelet Count 351 10^3/uL (150-450); Red Blood Count 3.97 10^6/uL (4.20-5.40); Red Cell Distribution Width 12.3 % (11.0-15.0)
[2023-09-21 16:58] LABS: Glucose 1 Hour 123 mg/dL (<130); Thyroid Stimulating Hormone 2.894 uIU/mL (0.358-3.740)
== END 2023-09-21 15:12 | disposition home or self-care (01) ==
LOC: LAB 15:11
PROVIDERS: PCP Family Medicine; Visit Provider Obstetrics & Gynecology
DX: Z13.1 Encounter for screening for diabetes mellitus (principal)
CPT/HCPCS: 36415; 82950; 84443; 85025

== ENCOUNTER 2023-09-27 12:11 | Observation (INO) | payer BC, SELFPAY ==
[2023-09-27] VITALS (36 sets, daily range): BP systolic 133–196; BP diastolic 77–110; PULSE 75–105; RESP 14–16; TEMP 36.3–37.7; O2SAT 98–99
--- OUTSIDE RECORDS SUMMARY | 2023-09-27 10:43 | XMS_ITS | CCD ---
Author Name Unknown Address [address] [place] [address] Organization [facility] Care Team Providers Care Principal Research Economist Name Role Phone MORIAH BOND Unavailable Unavailable ENFTALIMichael MORIAH Unavailable Unavailable SELF, REFERRED Unavailable Unavailable [...] Unavailable Alfonzo Addison MD Primary Care Provider JACKY MOCK Referring Unavailable ALFONZO ADDISON Primary Care Unavailable YANELIS POSEY Attending Unavailable JACKY MOCK Referring Unavailable ALFONZO ADDISON Primary Care Unavailable ALFONZO ADDISON Referring Unavailable ALFONZO ADDISON Primary Care Unavailable Alfonzo Addison MD Primary Care Provider JACKY MOCK Attending Unavailable JACKY MOCK Attending Unavailable JACKY MOCK Attending Unavailable JACKY MOCK Attending Unavailable ALFONZO ADDISON Primary Care Unavailable STEVE ARREOLA Referring Unavailable Allergies Allergy Classification Reported Allergen(s) Allergy Type Date of Onset Reaction(s) Facility (2 sources) azithromycin Drug Allergy 0 [facility] Repository (3 sources) ketorolac; Translations: [Toradol] Drug Allergy 0 [facility] Repository (2 sources) traMADol Drug Allergy 0 [facility] Repository (1 source) Iodine (And Iodine Containting Drugs) Drug allergy (disorder) 5 [facility] Repository (17 sources) Azithromycin; Translations: [azithromycin] Drug Allergy 4 [facility] Repository (1 source) Contrast media; Translations: [Contrast Dye] Propensity to adverse reactions to drug (disorder) [facility] Repository (15 sources) Ketorolac; Translations: [ketorolac] Drug Allergy 4 [facility] Repository (17 sources) traMADol; Translations: [traMADol] Drug Allergy 4 [facility] Repository (14 sources) Contrast media; Translations: [DYE] Propensity to adverse reactions to drug 8 [facility] (2 sources) Ketorolac trometamol Allergy to substance 3 [facility] (2 sources) Other Propensity to adverse reactions 8 [facility] Medications Current Medications Medication Drug Class(es) Dates [...] 08-31 Unlisted lab test see scanned report [facility] Urinalysis macro (dipstick) panel (U)on 08-18-2023 Bilirubin, UA Negative Negative - 4(70) +++ mg/dL [facility] Blood, UA Negative Negative - 50 Izaiah/mcL [facility] Healthcare Clarity, UA Clear [facility] Color, UA Yellow [facility] Glucose, UA Negative Negative - 1999(110) ++++ mg/dL [facility] Interpretation and review of laboratory results Abnormal [facility] Ketones, UA Negative Negative - 160(16) ++++ mg/dL [facility] Leukocytes, UA Trace Negative - 500+++ Susy/mcL [facility] Nitrite, UA Negative Negative - Positive [facility] Healthcare pH, UA 7.0 5 - 9 [facility] Protein, UA Trace Negative - 2000(20) ++++ mg/dL [facility] Spec Grav, UA 1.025 1 - 1.03 [facility] Urobilinogen, UA 0.2 0.2 - 12 mg/dL [facility] Coxsackie B Abon 08-15-2023 Blanquita tp. B1 <1:10 Normal <1:10 [facility] Comment on above: Performed By: #### U RTPRT #### [facility] [address] [place] [address] Skip Pit Worker: MD Blanquita Barton. B2 <1:10 Normal <1:10 [facility] Comment on above: Performed By: #### U RTPRT #### [facility] [address] [place] [address] Skip Pit Worker: MD Blanquita Barton B3 <1:10 Normal <1:10 [facility] Comment on above: Performed By: #### U RTPRT #### [facility] [address] [place] [address] Skip Pit Worker: MD Blanquita Barton B4 1:40 Normal <1:10 [facility] Comment on above: Performed By: #### U RTPRT #### [facility] [address] [place] [address] Skip Pit Worker: MD Blanquita Barton B5 1:20 Normal <1:10 [facility] Comment on above: Performed By: #### U RTPRT #### [facility] [address] [place] [address] Skip Pit Worker: MD Blanquita Barton B6 <1:10 Normal <1:10 [facility] Comment on above: Result Comment: (NOT E) INTERPRETIVE INFORMATION: Coxsackie B Virus Single positive antibody titers of greater than or equal to 1:80 may indicate past or current infection. Sero- conversion or an increase in titers between acute and convalescent sera of at least fourfold is considered strong evidence of current or recent infection. Performed By: [facility] [address] [place] [address] Church Musician: Nikita Pantoja MD, PhD CLIA Number: [id number] Performed By: #### U RTPRT #### [place] [id number] Skip Pit Worker: Gonzalo Cain MD Protein S Ag, Freeon 024 Protein S Ag, Free 61 % Normal 55-123 [facility] Comment on above: Result Comment: (NOT [...] reference intervals for this test in the [facility] ([facility]). Performed By: [facility] [address] [place] [address] Church Musician: Nikita Pantoja MD, PhD CLIA Number: [id number] Performed By: #### U RTPRT #### [place] [id number] Skip Pit Worker: Gonzalo Cain MD Protein S, Antigenicon 08-14 Protein S, Antigenic 129 % High 63-126 [facility] Comment on above: Result Comment: (NOT E) INTERPRETIVE INFORMATION: Protein S, Total Antigen Patients on warfarin may have decreased protein S values. Patients should be off warfarin therapy for two weeks for accurate measurement of protein S. Access complete set of age- and/or gender-specific reference intervals for this test in the [facility] ([facility]). Performed By: [facility] [address] [place] [address] Church Musician: Nikita Pantoja MD, PhD CLIA Number: [id number] Performed By: #### U RTPRT #### [facility] [address] [place] [address] Skip Pit Worker: Gonzalo Cain MD Antithrombin III Valentina 08-12 Antithrombin III Act 114 % Normal 83-122 [facility] Comment on above: Result Comment: Patients receiving Hirudin may have a falsely decreased Antitrombin III Activity. Performed By: #### U RTPRT #### [facility] [address] [place] [address] Skip Pit Worker: Gonzalo Cain MD Lupus Anticoagulanton 2023 Dilute Madhuri Viper Negative Normal [facility] Comment on above: Performed By: #### L UPPRO #### [address] [address] Skip Pit Worker: Gonzalo Cain MD Protein C Activityon 024 Protein C Activity 86 % Normal >80 [facility] Comment on above: Result Comment: Patients [...] VIII. Performed By: #### U RTPRT #### [address] [address] Skip Pit Worker: Gonzalo Cain MD Protein S Activityon 024 Protein S Activity 54 % Low 59-130 [facility] Comment on above: Result Comment: Patients [...] VIII. Performed By: #### U RTPRT #### [address] [place] [address] Skip Pit Worker: Gonzalo Cain MD Factor V Mutationon 08-11-19 24 F 5 SPECIMEN Whole Blood Normal [facility] Comment on above: Performed By: #### A PARVP, AF5MUT, APRTSF, ACOXAB, ACOXA9, APTMUT, AMTHFR, APROTS #### [facility] [address] [place] [address] Skip Pit Worker: Arben Carrington MD #### AT3A, PROSAC, HOCYS, ACARDA, FT4, PROCAC, TSH #### [facility] [place], [place] [id number] Skip Pit Worker: Gonzalo Cain MD FACTOR 5 MUTATION Negative Normal [facility] Comment on above: Result Comment: (NOT E) Indication for testing: Assess genetic risk for thrombosis. NEGATIVE: The factor V Leiden variant, c.1601G>A; p.Dxp397Vmc, was not detected. This does not exclude [...] function in the F5 gene variant c.1601G>A (p.Upe541Mqw). Legacy nomenclature: [id number] (1691G>A) CLINICAL SENSITIVITY: 20-50 percent of individuals with an isolated VTE have the FVL variant. METHODOLOGY: Polymerase chain reaction and fluorescence monitoring. ANALYTICAL SENSITIVITY AND SPECIFICITY: 99 percent. LIMITATIONS: Diagnostic errors can occur due to rare sequence variations. F5 gene mutations, other than p.Gmg540Rzl, will not be detected. This test was developed and its performance characteristics determined by [facility]. It has not been cleared or approved by the US Food and Drug Administration. This test was performed in a CLIA certified laboratory and is intended for clinical purposes. Counseling and informed consent are recommended for genetic testing. Consent forms are available online. Performed By: [facility] [address] [place] [address] Church Musician: Nikita Pantoja MD, PhD CLIA Number: [id number] Performed By: #### A PARVP, AF5MUT, APRTSF, ACOXAB, ACOXA9, APTMUT, AMTHFR, APROTS #### [facility] [address] [place] [address] Skip Pit Worker: Arben Carrington MD #### AT3A, PROSAC, HOCYS, ACARDA, FT4, PROCAC, TSH #### [facility] [place] [address] Skip Pit Worker: Gonzalo Cain MD PT Mutation [id number] 08-11-19 PT [id number] VARIANT Negative Normal [facility] Comment on above: Result Comment: (NOT E) Indication for testing: Assess genetic risk for thrombosis. NEGATIVE: The Factor II, prothrombin [id number] mutation, was not detected. Other causes of [...] M.D., Ph.D. BACKGROUND INFORMATION: Prothrombin (F2) c.*97G>A (R73341C) Pathogenic Variant CHARACTERISTICS: The Factor II, c.*97G>A (K97766D) pathogenic variant is a common genetic risk [...] CAUSE: Homozygosity or heterozygosity for F2 c.*97G>A (E27542T). PATHOGENIC VARIANT TESTED: F2 c.*97G>A (Y40463H). CLINICAL SENSITIVITY FOR VENOUS THROMBOSIS: Approximately 10 percent. METHODOLOGY: Polymerase chain reaction and fluorescence monitoring. ANALYTICAL SENSITIVITY AND SPECIFICITY: 99 percent. LIMITATIONS: Diagnostic errors can occur due to rare sequence variations. F2 gene variants, other than c.*97G>A (B77829Y), will not be detected. This test was developed and its performance characteristics determined by [facility]. It has not been cleared or approved by the US Food and Drug Administration. This test was performed in a CLIA certified laboratory and is intended for clinical purposes. Counseling and informed consent are recommended for genetic testing. Consent forms are available online. Performed By: [facility] [address] [place] [address] Church Musician: Nikita Pantoja MD, PhD CLIA Number: [id number] Performed By: #### U RTPRT #### [address] [id number] Skip Pit Worker: Gonzalo Cain MD PT PCR SPECIMEN Whole Blood Normal [facility] Comment on above: Performed By: #### U RTPRT #### [address] [address] Skip Pit Worker: Gonzalo Cain MD Coxsackie A9 Titeron 024 Coxsackie A9 Titer <1:8 Normal <1:8 [facility] Comment on above: Result Comment: (NOT E) INTERPRETIVE INFORMATION: Coxsackie A Serotype 9 Titer Single positive antibody titers of greater than 1:32 may indicate past or current infection. Seroconversion or an increase in titers between acute and convalescent sera of at least fourfold is considered strong evidence of current or recent infection. Performed By: [facility] [address] [place] [address] Church Musician: Nikita Pantoja MD, PhD CLIA Number: [id number] Performed By: #### A PARVP, AF5MUT, APRTSF, ACOXAB, ACOXA9, APTMUT, AMTHFR, APROTS #### [address] [address] Skip Pit Worker: Arben Carrington MD #### AT3A, PROSAC, HOCYS, ACARDA, FT4, PROCAC, TSH #### [address] [id number] Skip Pit Worker: Gonzalo Cain MD MTHFR Gene Mutationon 2023 MTHFR 1286 A>C Mut Negative Normal [facility] Comment on above: Performed By: #### A PARVP, AF5MUT, APRTSF, ACOXAB, ACOXA9, APTMUT, AMTHFR, APROTS #### [facility] [address] [place] [address] Skip Pit Worker: Arben Carrington MD #### AT3A, PROSAC, HOCYS, ACARDA, FT4, PROCAC, TSH #### [facility] [address] [place] [address] Skip Pit Worker: Gonzalo Cain MD MTHFR 655C>T Mut Homozygous Normal [facility] Comment on above: Performed By: #### A PARVP, AF5MUT, APRTSF, ACOXAB, ACOXA9, APTMUT, AMTHFR, APROTS #### [facility] [address] [place] [address] Skip Pit Worker: Arben Carrington MD #### AT3A, PROSAC, HOCYS, ACARDA, FT4, PROCAC, TSH #### [facility] [address] [place], [place] [id number] Skip Pit Worker: Gonzalo Cain MD MTHFR Interpretation See Note Normal [facility] Comment on above: Result Comment: (NOT E) Indication for testing: Determine genetic contribution to hyperhomocysteinemia. Homozygous MTHFR c.665C>T: Two copies of the MTHFR gene variant c.665C>T (previously designated C677T) were detected; the c.1286A>C (previously designated M5139G) variant was not detected. Homozygosity for the [...] has an effect on cardiovascular disease. The [employer] Practice Guidelines indicate [...] a contributing factor to hyperhomocysteinemia. Variants Tested: c.665C>T(p.Lpy520Urx) and c.1286A>C(p.Enk760Ncx). (legacy names C677T and S5783I, respectively). Clinical Sensitivity: Undefined; hyperhomocysteinemia is caused [...] developed and its performance characteristics determined by [facility]. It has not been cleared or approved by the US Food and Drug Administration. This test was performed in a CLIA certified laboratory and is intended for clinical purposes. Counseling and informed consent are recommended for genetic testing. Consent forms are available online. Performed By: [facility] [address] [place] [address] Church Musician: Nikita Pantoja MD, PhD IA Number: [id number] Performed By: #### A PARVP, AF5MUT, APRTSF, ACOXAB, ACOXA9, APTMUT, AMTHFR, APROTS #### [facility] [address] [place] [address] Skip Pit Worker: Arben Carrington MD #### AT3A, PROSAC, HOCYS, ACARDA, FT4, PROCAC, TSH #### [place] [address] Skip Pit Worker: Gonzalo Cain MD MTHFR SPECIMEN Whole Blood Normal [facility] Comment on above: Performed By: #### A PARVP, AF5MUT, APRTSF, ACOXAB, ACOXA9, APTMUT, AMTHFR, APROTS #### [facility] [address] [place] [address] Skip Pit Worker: Arben Carrington MD #### AT3A, PROSAC, HOCYS, ACARDA, FT4, PROCAC, TSH #### [place] [address] [place] [address] Skip Pit Worker: Gonzalo Cain MD Parvovirus B19 Panelon 08-10 Parvovirus IgG B19 0.18 IV Normal <=0.90 [facility] Comment on above: Result Comment: (NOT [...] APRTSF, ACOXAB, ACOXA9, APTMUT, AMTHFR, APROTS #### [facility] [address] [place] [address] Skip Pit Worker: Arben Carrington MD #### AT3A, PROSAC, HOCYS, ACARDA, FT4, PROCAC, TSH #### [place] [address] [place] [address] Skip Pit Worker: Gonzalo Cain MD Parvovirus IgM B19 0.24 IV Normal <=0.90 [facility] Comment on above: Result Comment: (NOT E) INTERPRETIVE INFORMATION: Parvovirus B19 Antibody, IgM EFFECTIVE 05/21/2023 REFERENCE INTERVAL CHANGE Due to reagent kit collection development librarian recall, an alternate kit has been validated and implemented by [facility]. The following Reference Interval applies to this [...] levels of specific IgM antibodies. Performed By: [facility] [address] [place] [address] Church Musician: Nikita Pantoja MD, PhD CLIA Number: [id number] Performed By: #### A PARVP, AF5MUT, APRTSF, ACOXAB, ACOXA9, APTMUT, AMTHFR, APROTS #### [facility] [address] [place] [address] Skip Pit Worker: Arben Carrington MD #### AT3A, PROSAC, HOCYS, ACARDA, FT4, PROCAC, TSH #### [place] [address] Skip Pit Worker: Gonzalo Cain MD Cardiolipin Ab G,A,Mon 08-08 Anticardiolipin IgG 0.7 GPL Normal 0.0-10.0 [facility] Comment on above: Result Comment: Reference Range: <10.0 Negative 10.0-40.0 Equivocal >40.0 Positive Performed By: #### A PARVP, AF5MUT, APRTSF, ACOXAB, ACOXA9, APTMUT, AMTHFR, APROTS #### [facility] [address] [place] [address] Skip Pit Worker: Arben Carrington MD #### AT3A, PROSAC, HOCYS, ACARDA, FT4, PROCAC, TSH #### [address] [address] Skip Pit Worker: Gonzalo Cain MD Anticardiolipin IgA 1.9 APL Normal 0.0-14.0 [facility] Comment on above: Result Comment: Reference Range: <14.0 Negative 14.0-20.0 Equivocal >20.0 Positive When results are Equivocal, it is recommended to retest after 4-6 weeks. Performed By: #### A PARVP, AF5MUT, APRTSF, ACOXAB, ACOXA9, APTMUT, AMTHFR, APROTS #### [facility] [address] [place] [address] Skip Pit Worker: Arben Carrington MD #### AT3A, PROSAC, HOCYS, ACARDA, FT4, PROCAC, TSH #### [address] [address] Skip Pit Worker: Gonzalo Cain MD Anticardiolipin IgM 1.0 MPL Normal 0.0-10.0 [facility] Comment on above: Result Comment: Reference Range: <10.0 Negative 10.0-40.0 Equivocal >40.0 Positive Performed By: #### A PARVP, AF5MUT, APRTSF, ACOXAB, ACOXA9, APTMUT, AMTHFR, APROTS #### [facility] [address] [place] [address] Skip Pit Worker: Arben Carrington MD #### AT3A, PROSAC, HOCYS, ACARDA, FT4, PROCAC, TSH #### [address] [address] Skip Pit Worker: Gonzalo Cain MD Homocysteineon 08-06-2023 Homocysteine 5.4 umol/L Normal <15.0 [facility] Comment on above: Performed By: #### A PARVP, AF5MUT, APRTSF, ACOXAB, ACOXA9, APTMUT, AMTHFR, APROTS #### [facility] [address] [place] [address] Skip Pit Worker: Arben Carrington MD #### AT3A, PROSAC, HOCYS, ACARDA, FT4, PROCAC, TSH #### [address] [address] Skip Pit Worker: Gonzalo Cain MD Lupus Anticoagulanton 2023 aPTT Coag (Bld) [Time] 25.4 s Normal 23.0-36.5 [facility] Comment on above: Result Comment: IV Heparin Therapy Range: 66.0-92.0 sec Performed By: #### L UPPRO #### [address] [address] Skip Pit Worker: Gonzalo Cain MD INR Coag (PPP) [Relative time] 1.0 {INR} Normal [facility] Comment on above: Result Comment: Therapeutic Range: Moderate Anticoagulant Intensity: INR = 2.0-3.0 High Anticoagulant Intensity: INR = 2.5-3.5 Performed By: #### L UPPRO #### [address] [address] Skip Pit Worker: Gonzalo Cain MD PT Coag (PPP) [Time] 13.0 s Normal 11.7-14.9 [facility] Comment on above: Performed By: #### L UPPRO #### [address] [address] Skip Pit Worker: Gonzalo Cain MD Protein,Tot,[place] Uron 0 Creatinine [Mass/Vol] 221.0 mg/dL High 28.0-217.0 [facility] Comment on above: Performed By: #### U RTPRT #### [address] [address] Skip Pit Worker: Gonzalo Cain MD Tot Prot. Conc. 15 mg/dL Normal [facility] Comment on above: Result Comment: No n ormal range established. Performed By: #### U RTPRT #### [address] [id number] Skip Pit Worker: Gonzalo Cain MD TP/Cre Ratio 0.07 Normal [facility] Comment on above: Performed By: #### U RTPRT #### [address] [id number] Skip Pit Worker: Gonzalo Cain MD Thyroid Stim. Horm.on 2023 Thyroid Stim. Horm. 1.89 uIU/mL Normal 0.30-5.00 [facility] Comment on above: Performed By: #### A PARVP, AF5MUT, APRTSF, ACOXAB, ACOXA9, APTMUT, AMTHFR, APROTS #### [address] [address] Skip Pit Worker: Arben Carrington MD #### AT3A, PROSAC, HOCYS, ACARDA, FT4, PROCAC, TSH #### [address] [id number] Skip Pit Worker: Gonzalo Cain MD Thyroxine, Freeon 08-06-2023 Thyroxine, Free 1.1 ng/dL Normal 0.9-1.7 [facility] Comment on above: Performed By: #### A PARVP, AF5MUT, APRTSF, ACOXAB, ACOXA9, APTMUT, AMTHFR, APROTS #### [facility] [address] [place] [address] Skip Pit Worker: Arben Carrington MD #### AT3A, PROSAC, HOCYS, ACARDA, FT4, PROCAC, TSH #### [address] [id number] Skip Pit Worker: Gonzalo Cain MD ANTI CARDIOLIPIN AB IGG IGA IGMon 08-04-2023 NATHAN IgA <2.0 Normal 0-19.9 [facility] Comment on above: Performed By: #### A PARUL, 5124-3, 29763-9, 42718-8, 76724-6 #### [facility] ([id number]) [address], [address] [place] [address] NATHAN IgG <1.6 Normal 0-19.9 [facility] Comment on above: Performed By: #### A PARUL, 5124-3, 49133-4, 06160-9, 48751-0 #### [facility] ([id number]) [address], [address] [place] [address] NATHAN IgM <1.5 Normal 0-19.9 [facility] Comment on above: Performed By: #### A PARUL, 5124-3, 18641-9, 00695-5, 39717-8 #### [facility] ([id number]) [address], [address] [place] [address] Anti cardiolipin AB IgG IgA IgMon 08-04-2023 Cardiolipin IgA IA Qn (S) [facility] Cardiolipin IgG IA Qn (S) [facility] Cardiolipin IgM IA Qn (S) [facility] CMV IgG IA Qnon 08-04-2023 Interpretation and review of laboratory results Abnormal [facility] CYTOMEGALOVIRUS IgG >8.0 High <0.9 [facility] Comment on above: Result Comment: Interpretation-------- <0.9 Negative 0.9 - 1.0 Equivocal >1.0 Positive Performed By: #### A PARUL, 5124-3, 15773-1, 43447-0, 53603-9 #### [facility] ([id number]) [address] [place] [address], [address] [place] [address] CMV IgMon 08-04-2023 CMV IgM IA Ql [facility] Comment on above: Interpretation-------- <0.9 Negative 0.9 - 1.0 Equivocal >1.0 Positive NOTE The following results were obtained with the [employer] [facility] ToRC IgM test. Results obtained from other Test Grader's assay methods may not be used interchangeably. CMV IgM IA Qlon 08-04-2023 [facility] CYTOMEGALOVIRUS IgM <0.2 Normal <0.9 [facility] Comment on above: Result Comment: Interpretation-------- <0.9 Negative 0.9 - 1.0 Equivocal >1.0 Positive NOTE The following results were obtained with the [employer] [facility] To[facility] IgM test. Results obtained from other Test Grader's assay methods may not be used interchangeably. Performed By: #### A CA, 5124-3, 69682-3, 30219-8, 34036-2 #### [facility] ([id number]) [address] [place] [address], [address] [place] [address] Cytomegalovirus antibody, Ig Blaze 08-04-2023 CMV IgG IA Qn High [facility] Comment on above: Interpretation-------- <0.9 Negative 0.9 - 1.0 Equivocal >1.0 Positive Syphilis Total(Unknown Syphi lis Status)on 08-04-2023 T. pallidum IgG+IgM IA Ql (S) [facility] Comment on above: NON REACTIVE No serologic evidence of infection to Treponema pallidum (syphilis). Repeat testing may be considered in patients with suspected acute or primary syphilis in 2 to 4 weeks. T. gondii IgM IA Qlon 2023 [facility] TOXOPLASMA IGM <0.2 Normal <0.9 [facility] Comment on above: Result Comment: Interpretation-------- <0.9 Negative 0.9 - 1.0 Equivocal >1.0 Positive NOTE The following results were obtained with the [employer] IgM test. Results obtained from other Test Grader's assay methods may not be used interchangeably. Performed By: #### A MT, 5124-3, 69402-8, 79253-7, 19731-6 #### [facility] ([id number]) [address] [place] [address] T. pallidum IgG+IgM IA Ql (S )on 08-04-2023 [facility] Syphilis Total <0.2 Normal 0.0-0.8 [facility] Comment on above: Result Comment: NON REACTIVE No serologic evidence of infection to Treponema pallidum (syphilis). Repeat testing may be considered in patients with suspected acute or primary syphilis in 2 to 4 weeks. Performed By: #### A MT, 5124-3, 17335-2, 19138-3, 02174-9 #### [facility] ([id number]) [address] [place] [address], [address] [address] Toxoplasma IgMon 08-04-2023 T. gondii IgM IA Ql A1 NINF - 0.9 A1 [facility] Comment on above: Interpretation-------- <0.9 Negative 0.9 - 1.0 Equivocal >1.0 Positive NOTE The following results were obtained with the [employer] [facility] To[facility] IgM test. Results obtained from other Test Grader's assay methods may not be used interchangeably. dRVVT/dRVVT.excess phospholi pid Coag (PPP) [Ratio]on 08-04-2023 [facility] Negative Normal [facility] Comment on above: Performed By: #### 5 0410-0 #### [facility] ([id number]) [address] [place], [place] [id number], [address] [place] [address] dRVVT excess phospholipid Coag Ql (PPP) Negative [facility] Outside Recordson 07-08-2023 Outside Records [id number] - Ultrasound Report [id number][facility]-2023 Outside Records [id number]#1.00[facility] Rad - Ultrasound Reporton Rad - Ultrasound Report [id number]#1.00[facility] Coding Summaryon 05-01-2023 [facility] KajripumSSo0wUp+PGhlYWQ+PE1F PEAbG85lqNZsnL5yN1QLARnNDjuj PZHORSmHEnEhopKcGY5buKOeSXFk IC8+PJ2wYAAiAgprmGZwx5Q4pYH3 I36atb6dBBntyEN8LKClQyWsxxlz f4hxaEm3FEnySoquByLc UURuiJ02NFJ5hH58Ss00cSHuuPKt x2kqyTy7MpQcWFGmZIJ5tIrtCXyo n9ZqHXLpV45cgGItv2H1 BCGdxLvklWGaYnSljVB8lD8iQXfe bnajm8gyhqfjNjh4om24yONld9T2 sWL4N7EcdcU1MLUmtQBq HfkzcHXXnP9xuttsc6hftoyaHlVy MPTyWNx9JJx3UAGahRzzAbMsXS79 VMI0TIWvknFgR7ArKDPt vVbhQtG6j1V2Gy5AF5UWPzuxZ8QJ TUFSWTwvdGQ+EF83tl70J9HqKcnu Uwt0OAWcNGG7oWN2lU4v ELXdLNnez5L4xSJ1L9BsdeKrxl4i y0ylKIEdZMrlY86umIPru5R3JJWq yGM2IJRywVggWsAyuR69 Oyc+YXElnQafq4LsLikoz3hkk5ss uGv4XecnJGRxejRrlSmfEBC8h0Vw Tn6mFENpsUW3cIK4aS6w FyGjTkB0QWdpW212JbGfpFSqSvfk M48uQ2JmhPW+QXTmVcj0AJMjuYlt HP7oB5ZnWWCtgnokqDHb tVvhMO3hKFQlntvuPLTteN9eGNNi L4c0KiPlNbL8TBfoX7KxDNJnyscc Lx33qD8aJhLjNoU7SUhv H4SawnC1MTPpnDAmRDhmDAR2J85i r3W1TTSlMMNwYRY6nNE4nV6roVcr bjogbGVmdDsgdmVydGlj EGjwAChrF214VTTjiZclZkTuSSru ZyBEYXRlOiAgMTAvMjAvMjAyMzwv dGQ+WEIoTTF2nYywOLWd nPXhTEulUh8waXqpaVrnTX6xYAXo hiydYVMhfW3lXNQjdNFlvJmbXX3s NCKpgihss549ZxFaGBS0 BDUlbFLpU9HriK7vSnJeNDSoMOZp K5ZgzCDuTNerP792FIuoHcQ8LYLs csOnH0FxUMIgzBxhLnI6 h2A0Im7Lb2BpshbbK3ZdmDUmSeWd FhclAXn1I3ZnFfxouHT+FF02GLTi WE24HEy6SPG6sCcrUWxx FVUxV4TqeB9tQqXaVFDyWQMjXuq+ PHRhYmxlIHdpZHRoPScxMDAlJyBz qWzcLJ8nGj8nYXEvIRHd aYokgZMiImIxx0tqJFSyEGjgUT2z pWdxQ8VjwHV6EPTqq3s7Vk71T31c O6JrdAV+YDWgkAI9kXU0 fZ4nMdFyMnI7FXqwF660JgQzxPZw Dmnkv6rho1nsxSc7SdO3EZTtqoBi iHqwFVD6i2ObKz18I69z JZfbOSJqDKTcYVVsYQUxsMaxlg6r cU3nQw0+JBHgqLG9cIT6pK2zWxCz GeA8RXkgX056CvHewNHu Uwspe4hnm5xryNw3EeNoAWAmynNy nBajEXT7c0FnOi67N3QhuUyss1Gm Ytu7sm07cORjt6B1iEZ2 L9EmTRVftveapOEtqCddGK2qOATd krepNFIsjU3aRPSqH2e1KaBtElW1 RJgaY4DplrV4UAXwvUWz YRXweVMPtP0cbvmdy2iwdpvcCjBd ANStQJo2KBr7ZNVupOfiZxNmLAU5 ErA7SDB4cBIleK9doUts zxqlhA2mQoo+CKD3iYCteZFFKQ6b OjwvdGQ+ANQaLOU2kPicKAjgPUCp yJ9kZMRiY3b5RrQeQvD7 UXddK2QdbmI3XCDlfVHqMBQjrGCS zE5sfrwno0kpueshVfHfZTUbCPc0 WBm7LRWqdQezSjKyPZQ9 GcO5DLQ2uYCowY2uhCyyvnyfyN3v Oyc+UqjvcDkwVEG8DZy6K1TgCqv3 FJQpzSomEN9pvQSrXYdl No5juBqhiCviEM5nQXFdjbbve821 ZpKwl2jqGKQwsLCcZEgwKBM7P01b d6G2SPAkZSEhQOA4rGV3 cO6cyWwhprmxbYVkwFpspdGbkFwz TZmyXJqcV944IONkiMicGzSlGCc2 G0DcUvb3TZYufUhwSC7s jDCyWPsqRt3cbHgdkHdsTT9aRMMu hwskq187FfYuh4vyRCGmfQPuVYxy IFE2A13rr8S9JJNtUDGl GZV5fRS7qN6jjDtjdyeofZDgqAxd zjUeqVfaUYtkBMotH958FRYtjLtv AiTqaUh6H1SxLbq0GMKg eWmdDJ5rsETlLQogJp8uwQwllYli PV2bMYGxtagel138LcAlv1hySLTw gVTrVWsvVGO5Y69gm9C0 JILxFFKwYLS9uXN8oK8miLxpqtyr qJKlzWhsbpJgwFofMThkCPxqD939 IHRvcDsnPlBhdGllbnQg EWyiFBx7F9XnIudnaTF+YR57SIPc FS40tJXovVLlr4bkeZv3ReIuYYWs KZM6cCquIZndc8TxKQJb B14ivUUac6M2OJVlfYztyBHrWnIu xJJ1zD2eDEaswvhvj5xgghppPkrh b3zxev64gJ83T97rXUvb HLQzJBIxLQVgBVDrhGrnng4szE2x Ii8+HTYipTD6vFQ6jV5hMKRrAzM8 BPjbZ942NnQlxDVhJnkb b7byb7eksMv5XhH8TBKuunBwdRwi ZTC2b2JtXw55A10qUYdwXDZmOHHd NMKbEYYvbXgvqv4kjW9y Ii8+XWOzkOR0aFM1qQ9sLlAlBkW8 PRhoR801RjSyaYHoInsbG93uE8Tt dXA+JLRbFjs6ENHudIop LF7fyEHiMKsvAa1aTPV6RkUsOtSl CCelQ5FkPTRfedbyhizfvYK6LAQc TMRcqH20Ho9tyLlrYQXf wSPXqX3sebcyp0svvuolGnAjGSXc RVe9SQo2HMNbpPrlKpTkNRH8NfA5 WXG5oLYpiE5inKewwjlw uX7fT1FjHNOdpwtzSz12aL9vQuAe IwC7KCneBxu+Z0qGO7iCRcfrKOAS H1EjSC5JMU57SW69vIQm y6H4cCH5G8DaKUNckxivjacnmWW4 YARrJYNshH65pKMdQYynFh0gz7I0 y500VILhCDOzkU76Xn1p fXwuYYYkvGDQcI0pobohl3yokfqy PdCzUNTvWMe5ZRh2TMIgfEywQoCf VMI2AeM6HMT6cURbvS3z eEmkcjamqU2aLbq+MDMvMTIvMTk5 NzwvdGQ+YLQxOJF6gVclULwpDZAd rG5nTDOlC6m9XaNlWyX6 NYyrW9IiFDLkshctXu15fT4xXwXk PnC7MEbxD8FbioJ0QKMnvZBoSCcx LXX6S56gv6E2BASmPSEw ZZI8xOC3oA1azWzefywbfXCapVjt oiScnKrkNIqmWPhtJ705WXMnjOpl LoL0JEldUMFiTI67IC69 mSNzk3C5uHI9A6AeKCWkrtwoesyf hIO9BEWhGSVyiP10zQQrLFdjGi2o p3I4d876FUXoQABomF73 Zh6fsKfsFCVzgLFDdK1apfgzq6qi ozjxSiEcCGBiQDc8DGq1HBKbfOxj RoUvRWV4ZhD0GSZ7yEHj fR2nxGfofxliwN7xRwf+RkVNQUxF XX54UF47vGOfe9S1nSS3B1QuNMFg aaqhxyjivJJ5EEVeVTQg iG15nVXrNFscMd2sb4E1f097RAOr ATNuyL58Qv8dfKxsOOTkeNCUlA0i nncyj6njkoxpUrQcSPFs LKp0DWu8VEMtbEhiPpBrXKX6NaH0 WFH8wDXmxP0vuEgcymkeiR8rHdm+ T9J9X9EzPcfjkOD+PC90 CZKnEA16cPGtrQJcj5otjTi8NzVr BXGtXFW7uZfeKAoub0BwAKLcU26l iZFny2U9ZIKngQxzcGDj DaYaoWA9lY2jGMetoisqb9acwbou Soovm6tlzx23nU43P68oEKtwVTMr PVNkMSAfXDFaaCddkl4c lA0kNf5+KREzbBV6rFT3cA3fCaMj LtQ5YDdzK484RwNjySKnVuluc4kq f4fpbHn4AgBbAZNeziPg vIltSRA9p5DrTe98C41sXHkhNOEy TPSjQQUeCMUajCgqet6oiY2vEb4+ QK6ih1rogs35kK01vPG+ CFCbYEL6lRngMLypIYUstZ1hESja HyJ9KSUmXgAzeM00nBEaLQoiRp9m yKcxcGiuAI9uPESfduud x818DnWha8bgCMDjgDTyGLhyQEC4 R02wh7E5CUYrJUJuOMO6gDH9jE9w bGlnbjogbGVmdDsgdmVy mBakYQonCOehZ096IBCqrAmpSeZe oNSgT8uspvIPZZ6mXbklaLO+PHRk ULM8nBmjJZpgSHBaoI8n UIUgA8t0DiClMqY9XYwmB9QvdzS6 VAIakZVcVTLueBOXrM2zxiidb2on mbwqLbHnTTGgRVg0ANq9 SLLddBhvUvKlINL2MlO8HGO5wYEc hG9euZlsnfrhdR3lXcv+RklOOjwv dGQ+PPEuLBB5zQtfSHpy LKWeyE7iYGAiG4r8QvHeBkH6XYth T7GkgwN2VREbeNNmXWKtcYNAiX3g uegch0ooayteDgMdZWZp JSh5JCt6FJOegGbsPnKsXFZ4GhJ0 FDP5sBVsbE5oeHthjuqfbM3tSfl+ TVJOOjwvdGQ+PHRkIHN0 hWtyLHamVESixL8fISOxT1f6BlOu ZzJ2BQosA7WxxpU0WDNslVLsVGYg tQQDeJ5uekzqy9cgsfsg MgNgUUPoHEu7HXd6SGVuxOncIwQq UWO1WjA3YCL7zUPdgX0yoEvrygsa nP6uQbh+VJX2ONB6HS85 XZ78I7EiRaxoeBJryKZ+PHRhYmxl XOvmHEQkYUjjNGOrEeZsgQmbVF8z Mm8iAHFuKMAheYhrcPFt OiB (more content not included)... [facility] Coding Summary HTMLBase 64 RuwbojppPPl1jSu+PGhlYWQ+PE1F XHXzE44lsRQyuT2jO5LQMAjKDzlx HXOQOVqPElKlvhYpRD5zpFNqBNMp IC8+UX6lWUInOapfvPTke3O2jWV3 A02npl0qWAkkwXT2YWYwCvVemkon s8elmQa0JKurZevtLaLu WZZohB54LIB6vG03Br32xUWstRMs b1amdMq6RbJoSKBrNGZ7gDpgUKul d2TaHQMnX60ynXCbf8D4 NFIspLjboHFjGwJdxRC2jK9sZEjq nyzon9adcqlxZtf1vc82kLTxd9J9 bNZ2D2PwuhJ4SRRfyFTf RpkaoYAKqH9bmuhhf3fjhloyLmNl PFXlXUk0TFg6KQZyjDtlKnLtLD09 PUA0PWUiyfUzB8RbMDAz tMfkEvH9a2A9Mq4DU3KTAjuhU2NX TUFSWTwvdGQ+YP61xs11Q5LlQhuz Rxm2FCSoIUC4cAT7aD1s LLGcRBlxp7C3wRH5D4TkmsNhwv0f x8zlIKKzONsvK73qkOFte1N9WQOh iIC0GWKupKhzGiIalW29 Oyc+HOLxqQbzb8XmUnnre9lqu4an fCq7ZudcSOMitrJqgGedQIW6w3Mw Sj4jFHZwzQN3wIX4gC1a YiTcBmX2MXalX563NjWdgQXtKivk Y24gE8DwfRZ+GNSdWqv2GFJwcPgi YI9fM4BgUUQbojiqjQOl dPkzIK3dWLSudngtSEIptP9gPCQt Q5f4EcYtVsI5DKybS8IuTOQxmvqp Fo49aI9eNkIiZmV6FNib U7QpgdN3FCVrbLLlLEkfCHF7V32b v1B1LISxFDSyNVH2nNB9pO4ayQka bjogbGVmdDsgdmVydGlj SAvuWClwI390OWJthWxcWiPlVVwe ZyBEYXRlOiAgMTAvMjAvMjAyMzwv dGQ+NQYqOZP4oGheMMXp kOJoYPcuOe6yyTyuhLvcMW2rRYOq thvuSYNpvT6rIYIbpXEdcTjeZQ9v MBDthgzly301MrUgNIT4 NIVfyEFvG3VbbP0sRcUtKQApBMHs V5LnhGWsINydH896BDhwOrC4EAMn pgDdE2RuDAIvjOxvYjZ9 q5N5Nw9Fs3XgcofaF8VplYVqNgSb OkigHLh4M1TnDpcxrIJ+PZ24CLRt WC85CEl0ZEQ7wTesBMnn FSQvI4PzvW9rOtUtHOCgKRRxOog+ PHRhYmxlIHdpZHRoPScxMDAlJyBz mQujKO5tPr5aFNKpPCJz hOsxxBMoBoRne5rtYAHtTQxuZC5a yYhcJ8ZdgMR2KIHzx8h3Io99V68q P6McoHG+JAAvpNW6wHG4 bY7aPzTlCyT7YOxwA928AoKpjIWz Glakv2oja2kwcPo9ZsW1WHBjkgWk qJmtFRH4m3MgPj44E22z FUrhYSCiHHRhYOMuJSMbaHgzhh8x iJ2iAi6+BPKjnEH0sTH0mJ1cDhXp SeD5HGocB265WyPnnGWb Yuuhm8koo1bwxTx4EjTuDJZgraLm pUssNTP9t4LsJz48J9QduQcsk0Zr Ick2es68eCKaz5M8uJP7 J4GcYBRzcvwcmURklXkoPA3yXNJc lsxbOUUtlR7rOAHfO5o0FmZjIcR7 NMfjQ8UqigX4PFXxoRCo YCFrtNISyL3dmpiwf8nxbsifHvFq NMFtJPi6QEv2RFCxePsaRlKoDBD8 MnO0FQG3vLOrmM1suTvs uhevjF3pGco+JSI9tJQkzDWKYB8w OjwvdGQ+SNWwOQP7zJyvOQqwBBPf pY3jCJGsF2j6AbZyIlF7 YMrkT9ZcfkV1PUOqaKRlUCBsxYSS vE6xztrwr3ztcdywThHgUDSjJUh5 NRc8HYEwfBnqPhJaYJU9 GlO5SVA5oBWpvB0wiNwkbgjjuP6h Oyc+YjeykTmgIAI0KQq9T9SuLyg0 GHByqOloDX0woGFsHObd Jf8wuCtarMnbMR1oFEChvkshy279 BdWhb6cxMEWvySSxLZnhQZK2B28q d1M8JRMkJNLwBGL6xUG2 fM8ysXticbbfjNNnzOkdujCzwImc CHtsPOfrG855HOLtoAzwObFyPMz4 Z7VtXgy2PKSegEafQQ0f rSCrFMjzSd3ryWropGfbWO8tULIp lqotq196KbPym0gpSNYlyNCxKRns QVL9Z96gd8K9ZERaRKSl WQA7ySD0mY7aiSxkvrdxyDGxgVuf mhEmcKmlVDmbLWhhX356SKVhuTzm BxDodEd3B5GvDog4TRNy gVcnFD7rbRAuVUegAj5bxNpbcQhi PI9uCNFhcccfo889XgRnl5mcZFRp iRMaQBdcHWX5M14uh1Q3 KMKpDFVwNFB6gFZ4yE4tgHgunadq iXKdmRolixKgtYbpBBtbKNgrC769 IHRvcDsnPlBhdGllbnQg IVicNSr1U3TaFokghLJ+SQ79THNw PF82gEYksVSxo6hqjDr3YpFvJWLh TUN7oHdtQMyir2SzWYSp Y64pfLWbs5F0KKVumKxnxJTjCwIc pKH1uL0iKJyacjjmq2soisdiEuuc k6zwjc41cK35L71xQUhh GODlFDPfYTLtAMTjfTisip4udP4e Ii8+VRTrsJM5tMZ8xG9xRZTuRfX6 YFcsG375QjIxlAOqRdyg f2gaj8zypOn9PeV2EFPbqmDqvTie QYN7f9ZtNk28K01iYJshXTKuPZFv XTGpOQZfjYtnav1gvF6e Ii8+QQDvwUS6lXB8hE8aRyOtNpP4 AGamZ247UdFqrWEyPpouO75jA4Xe dXA+TUJkBmj9TDWjvSlh AB4dvZXiLSnsPr4kZJA9LcKfEaFc IPelN7JdFFHrrnicigohnTR3JJEi MZHfqO75Ec7hqObnNQXp iBYUyC1enwaok2vordusMgRpDRSa LZc3DGx4NLYfcHtaDkLfCZM0SdM9 XQY2cXKikC5zvDupelww hS8mS6DxWTAkbluaVp12vX2iVmSq KxD1LAhlWia+J1jYI6fEGbbkGVCP C5UjXC8MJX40QI43eUTc k6D7bGQ1F9XyLVGnyfxaybxacVZ7 EUVbHANypY52cNWbVPccKv3co1Z3 n835TGObAXWfaH74Kb2c nPfnOCRksRPKjE2zwycal8rdyigz YeYpYVQpGEz9OOn6ITUdeHjwCwGa NFG9GmS7FBT6dTBkfJ2p pKtskdjhdG5gGrb+MDMvMTIvMTk5 NzwvdGQ+HLRiBTH2eMulWInbKDCf eB6eVMWuD5a8QhNhGkW3 GNfsW2ZcPXDcnnaoKi73mI5yWxFy UcM9RDppN5DydnD2GNZkoVNaRNkp GTV7U42yl5R6YVRvYMZt PYA4vJE0pO6nkLnmkvcjxMPuvVnl wlLbpEfjSNzsSBsmA709XPOngCjs AvA2XPtxAGHyDN45WN51 eYTng2M5gXZ3C3DfBKEasadiigxn gDO5SSUpWMAozO48lCWsYRrbUz0f x0P4h288VRPsFMXfbA82 Em4agDyxVRDmyEUUlQ7hpagbn0uo mgllCcOhBBJjMJe2GIv8SSHnrGek SzWrRZH8PxK5RVU1fCEz mU3diQmijzndbG4eFnb+RkVNQUxF DW54GE21pDFet4I4gTF1D8MxYIRy jcelswbpnGG1YMAjAPYt dA45fAWbVQriUn7ew5V5p101LENw JOKwfF26Qd2zkZsjMLEdvJKKbF2e aueyh6hfzwlnNuHaTOEi ZCy4CCq0YGQzdVzbVwXaRVJ7VfJ1 KIG8iKKqyV1ezCgtnycsrH3lSrm+ N5G2Z6NrFkdplEJ+PC90 WBOxOO00tCKtkWNgu0tpkNf2NoTr EAFfJCV5gZvaYJjgk3WkTBCkY14y rARsi2K2VIBohLmpxXRf IhRqsJM3eJ4wLJalpzkmo2xdllvl Hdhar1hgfo91yZ59Z62tYMzaAKYy MWDmIDVcYDRmtRchma6x tS8oEa5+NRCpaGC1gRJ8fZ6iPfKy JwJ4LRmkG673RvMsoDBtQsobd2nn z2dabXd1PzHkTTQjdrWc wDroLDH0v7YiFt17T33hRRljWIZf YNWsUSExUWMjkDzxgv9hoB1xNo1+ BI1dt5sbzz76qL78wKM+ CELkSCR9zFcrYGdpZYNirI8lHOlx OdT7CGRuGtUwhS43fULqGAwqNh8l tDwxkPauQB4aCESoaaan g034VqBdt9btDBQhcPJqGOxdDLY9 G70kn5Q3WQDbYOJeRZG9yBZ7fU9j bGlnbjogbGVmdDsgdmVy lFklLYizARdxU395HRYewCezLsMv qDVhC6xpvqNSEW2uQgpraOX+PHRk BSL2xVztUYzrKGGosD8t FIJqH1k8MbQyFuV3YFuaI0BkijE6 TIGbwDOyAKShfYKBrN7petwvx7bf kvssYlPqBCJtJYy1YBw7 MAQpzMtgCpThYGZ8TuX8WMU9hVFx zY9jeZtaarrmfE0qOzb+RklOOjwv dGQ+WZBjQVB5zNctGEni TZLtxO6gWGQaA2n4AnLzLvV3NDsm G4XguiY5HXTgjXFnACDnmMUJrM5n cgzis0bcubgdBxNiNZAr THd3NNu1NLLtkMtkKsFzFLZ0OuO7 AQM4zUIivH7wvBwzlcxdxT0oDpp+ TVJOOjwvdGQ+PHRkIHN0 iKwnBEwgZLOfeC6gJPZwL5q1NuMc QgO9EPdeS2VwouR6HVJktYTgSDDv rMWHoF5ohkxze4xdkhbs DwHkMAAsOVs3NXg9ACIsbUhyAvMj BBG4EdS3JOJ0fDBujT8tiIkascxi sS0zJdn+EPH5GZH3DJ98 MK92Q5MdNczdkFRaeYI+PHRhYmxl CYrqEHWvJMeaEOFsJsUleEjaIJ7k Ts8pLMHaDHNxmHwlwZKz OiB (more content not included)... [facility] Reminder Messageson 04-30-20 23 Reminder Messages - From: DINORAH GILBERT DO To: [facility] Clinical Pool ([facility]); Sent: 04/30/2023 07:53:33 EDT ! Show up: 04/30/2023 07:53:33 EDT Subject: Results Follow Up Actions: Call the ordering provider with results Due Date/Time: 05/01/2023 07:53:00 EDT Reminder Comments: looks good. no problems Results: Date Result Type Result Name 04/29/2023 13:59 Radiology US Thyroid From: Sindy Cormier ([facility] Clinical Pool ([facility])) To: DINORAH GILBERT DO; Sent: 04/30/2023 10:55:59 EDT Show up: 04/30/2023 10:55:00 EDT Subject: RE: Results Follow Up notified patient, patient stated she recently found out she is and that explains some of her symptoms as she had issues during her first . 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 I will fax the US to [facility] for their records. From: DINORAH GILBERT DO To: [facility] Clinical Pool ([facility]); Sent: 04/30/2023 11:51:41 EDT Show up: 04/30/2023 11:51:00 EDT Subject: RE: Results Follow Up noted Normal [facility] US Thyroidon 04-29-2023 US Thyroid CLINICAL HISTORY: Hi story of nodules. COMPARISON: None available. TECHNIQUE: Ultrasound of the thyroid was performed with a regional survey. Reference: ACR Thyroid, Imaging Recording and Data System (TI-RADS): White paper of the ACR TI-RADS committee. Journal of the [employer]: Volume 14, issue 5, [...] Hopkins MD 04/29/23 1:59 pm Technologist: [facility] Coding Summaryon 01-10-2023 Coding Summary HTMLBase 64 QhqgnhyzTZa3bBv+PGhlYWQ+PE1F LPKoP64thCIjrN6vZ6HWHYfHDmmk LXZHIRcNWuOjyjLvRY6aaBIpNABt IC8+ZE8oLCBtAemesYRko4W3aQW2 Z80yyf6vWRpyxNQ7KTEzQuVdzhnj n1owyTr3LDpdBdfbMaIt JQLarW01ZNC6wR12Zn38zFZygVNe f9pumGh6RrTjEJDuBJE7cPqyXPny j6SqKYSoX84ifLIfg9L1 JCTnfIqewTIcLzQslRV0oX7cQPzv repmh4dbjoogLgs6lb50aDKjd7P2 iUT4K3BzcnA7ELHdtSUo JhszdWPAkV3eyoxrd7okyfvxKuQk PUOnHCi4ULr1QZDdcZodOoYbVU32 UVY8MVChzyMeB6ZeQGXq fZzsMeI0p7Z1Uq6US5OFKalmR3MD TUFSWTwvdGQ+PI25ti15M8NjIxix Fjw6FNGuPXH7uHU7aG2a DBYvZKzws1F1zXV3J9CotoXgpc9c z0eqHGSkCLpaK12uzODow7I6ISDg sNQ8UDRtiLhbGaQjjS94 Oyc+KMQqvMvda9QcMpoby6doy6bs mOc2EkitQRMzrhPsqQeaBLX7g1Ry Wf9yLRPigFG5dIJ3gT7k OjUmDsA0OOyjX897BkIjbYKnDwsi S63jN7PicPM+GSVxGli3PCTfvGlq FQ2aM8VhSTAkysncdNYz bLhsDS7wEJPzdgteFZWodR4aHHIs B7y0RvAjXeR0GYlpD8GyUGQuzmfy Pv16zE6tYfYkWsH2NXwo T0SpvdZ2DUQonSOoMSlpDSI1E42w w5T4JWIfIOTpUXO6xPJ3zW7gkToa bjogbGVmdDsgdmVydGlj CPluOHsdO496WWKocKldWkJeOBsb ZyBEYXRlOiAgMDcvMDEvMjAyMzwv dGQ+JAUaBNG6rAkkGUYr dXTkVPkwEh2daVxkiCsvMO8cSHNh gfgkXNUggL3uTANvrKDplLqjHK3k URQekphnd493AiUsLZI7 JFYioANmM0VstC1eKdKaDHGnQYIc K7UmtEJrXPugW552DAloQdL7PBMx sqZdU3ImXFToxYwaZcH9 o9W5Lv9Ow3HnwrqhG2VbtQVrXwTd FqivXCq5K7VwVhfadOC+WW77QKQv MJ90YPt2GDH7sIhtJJjk ZLPuI3WlqZ1fPzHcIUYkJQExTmg+ PHRhYmxlIHdpZHRoPScxMDAlJyBz pHylCY5zSt8mMEMkKCBr nBciiKJcJqMsz7czZDTmZVqcGB5y oFmxK9ZisPA3KIXks2j1Ag26A20z N3EtvLX+MHZorIS9rAS7 fJ3lVwZmMkU3GJckM695WpWatAJu Waclk0sdt2bqvJs2QsN3EXUkhuHx dZvqXUV7x4FyBz52H17s HOjfVHBmTZZxLULpMSQtsYhnbb5y fA1cJj7+MXRqaLZ9aJS7yL4zNnTh UvG1KOrkB515CuDvoLWp Gpknd4smw7klcZu6TbTfLMFvngUo qTulMJP4z5TqQe19X5McuWkkv7Ni Tva9lx15bBSmh1F7xBX7 L0IlJGCrsotnaHYlxOwrCS2xTRTl xvyeULUzsI6tBXBjU6q9WyLeBbZ6 POviL1RdrkE1OTTixLCv UYIxfKUSeS6nhbggw9cxclurLuZf PJGsDJl3PXn6BNFehDyvIcZuFCV2 RyQ7WYJ8xNUarR6gmHgv yuynnE7mZip+YQL0dPYxuLHHUU3q OjwvdGQ+FGPzXUN9kVqqYRntOEDq iD8aXALnB3d8DsDiQlE1 RExeW2RlutG9HDQatIHzVDBasMLH qQ8tbylkb8fjgssmKlPlZPHiDNs7 AZb3ESNywPjwSnDpPUX3 NdK2HUU6tCJrxB7rhXpazqyrvC0a Oyc+PekeiCqwUPT1BFj5D4VnJqz6 WDFvjBpzZM5qdGUaWYpq Dk9ljGguqEpiHC4oJBNjhrbfo919 QdUnp9nsPDYaiWYySOjgFWR7M86h s6P0ZVHfZYWhFSZ7dKD7 cA4nwOvvjkwcsPLthEzwxeMcfLnn NOqhXKbbU085PDIihKxrIyNdDBi9 R8KyVbn9UYAdpSrbAQ5r vUHuDPlvIq9mmBnkuTrmLO7qYIKu adnyp392GuWak5bcILGiwQCdWGyh RCW9C07sn7F9VYGiRJMv UOQ7uVI8jZ2wvPrrrjlouRZvkQcm hiDwxNavGWptAIwzF163YUUlxBgc JaOkuBm3B4TtHaq2PWWe zZbjSW7ndPNvSSscPy7lmWtmcQws OM8oOUEmfkgxj975AlWkj6ghKNUw lADoRBovITG1E54tl8W1 MNWtJGIyZIF1nTX7tC3edQkxmnot oETmxGczccFoeVdrLPinGYjlO956 IHRvcDsnPlBhdGllbnQg ZAiqTTh6O9FdJnofmJX+FS93HXYq KG88bROwlOCuu9jazNg4GuFnYXTy XLG4lPhfPXrgz2CiTYBs U78usIJyq5F7HMIvwTwqcHGnQlSz fXE3uC2rKKqugnoss8yjygayCsnz g3ecit30bV87M98uZHyv JPPtMAClLUUfNUOsfUclcj6ptP3a Ii8+NAClpMR1vBR7tQ3xXRKdWuU1 VPdnN102HjJqaXMkMjpz o3rou1irjIz2AcE0NYYhhtQyiQkf TXS4j5DrXl70D63zKWetWPOpDMLw YHNtQGNrnDebbz2voY4b Ii8+EOSrbVQ2sRM0eR4aJzRcEyQ2 QPuwW711TaTyaFPkWvpjB65dE3So dXA+LDXeYmr7EGHwiAnb BW3vhYEjFAujCh8fZGX0DwDhAqGf BVxoP8KwJIKyecraaiojlXF1ZNXm YFNziT83El2faYucAGXl iTRBeD9mbawuc1oeliluCbQiLLMk DTh2FEq4CMBdkIvvTaRhYLP3NpE0 ZJX6sLLzkV0txOacjwje yP6mC6NdZDJypavmEq33iB0uTdGd SuL5BRyiNcq+M2wDM6tWOjrmEKYW T0OxKP2LJV56JS49mXCt i8D7dHE9K4LrDPLddodhmcvfdMF1 EMDbINZkoC65eWLmEDvyTl9uu0B8 i298AUEpCUUauY18Xd8x kYpkPJWqfYHRoY0xtqtgp0uwdtjc NmNoSRTrCFw1UQx5QADufHooHfEt RDL9LkX4IBJ3zKSlwC2n gJayxojnwC1uOui+MDMvMTIvMTk5 NzwvdGQ+XARoPOY0iWscWVgiAPNl gJ7dNRLyV7r0PeDeCcX4 DVbyQ7YzUQQszrzoGa23iB1vVvPx CaK4OOteU7RihaE3EXPxsOGeOTae FKS2I83af1X6GZWvQTKe WIF7hKQ0iU3yfMyklaquvSHzgNdy dlPzrLkxAXiyNJquK371IKHsoBaw BxK0YPhqSAXoGP17RG12 pXVun9V3jUF3C6TpUPOjatglucis rCY8FRQwWPTwjF49qHCnROgxEe3q i3O7g338JJUgUARdbN71 Ex6diLcqPPWvcUUYmH4roqpxi5mg jowrAgDyYTXwSHa4VQy4GXBggVuu AqVtTLX8NuC5URO5zZLu cB6twRcjeonpuC9uOtl+RkVNQUxF TC79FK26dHZir7R1oOQ2A2QrFSLj mogzuhtmyLM3JGCyQMNq dJ82hDTqKAqqHg4mv2K9r054ETFy HGLvfZ33Mr3xkGjxDSNunKQDeR6u mnxze2kzouiyNnJwYCZu VKl1QGk3ZFVibQpbOwEvMSM1MhM5 VWU4qNQekB6saYshkhpbiL2nGxy+ Z4Z1N2DxBpdxsOJ+PC90 QYWySA09hREuyGWyk4laoKw8AfTk KMZfPCS5hTemGWjxu9CdRJYfM24l nPLoj8M4NGErnFqreVUj TzNxyRZ4nQ2dXYvcdrqrh0posyee Rybep0wnqf84nM16B24vGMqoFMTy RTJmBKFeHVNrsJbjxr3y aJ5lNa9+CIEulFV5dII6zR8mEgAq LxF2MCqwU637PlXgjXHlTwwbu9um b0uxbIc3LqPkELGqaeNp rJnfILC5n4PeHg29Y60aJQbjMGNw HJUkNMAsFWVveUycgz3jcF9lXc2+ GM2eu9biql02yT15iHU+ FCGvOJB9xSdfUHvzGIBjbS5uGYar VlJ5WFFqUmGhwL81xNAvPXdxMg4u gAujqGojHO5cGIMcikeb f254UhUar3kkOHDcuWSuHUwgNCQ1 D37ul9E7MYXnOIVaQRF2dYG2cQ7h bGlnbjogbGVmdDsgdmVy mTjvUTiqUGisF588MKFiaOufCqLk uEHkV6ilrdFNOB6jJekfmNG+PHRk ORS1vOqvOZvaICZssQ1w EGLhS2x0VjNkVhI7QMkoQ6XfnlY6 UERmkKZqGLWzjHLUeV3udqyfz2em xpynFgCfQXYfCTq3SDg3 NYTspWnpVpNxAAG6AeZ4JMA2dRPl kM0aqQvykrggnH8mIak+RklOOjwv dGQ+QSEiJEI3dMvoBEqn MQImuD9kHNGtC7z7OkSeOaP1HAiw J9WzftG1YVUyxVCmKCKehVBMqD2r sdrou0ohpicvQtEcGJXc IVv7XVy1VYIunImtXnOmCAN2HyA0 DFK9zGQjvE2ggTypwwpwwP2oCdr+ TVJOOjwvdGQ+PHRkIHN0 tDubAPntWOCiqJ1wVVFgW9f2ViVs TrK8KNhnY0XrbrQ9UUWbrGCaJFEn uTQAfL0nbzeud0wihmsj JjJiHJWvXWb5HKr4CSZqmEctLaXi TFM1XvR0NCM7cNIzuY1rpMcjhuko sW9xSam+FHZ4RTM8MV87 GU55B1UaBzrzsYEglFJ+PHRhYmxl CVriYQZdACqwBJHiDdWcdFcdQF1x Ny0gJLCcFAAcoDlfxTOq OiB (more content not included)... Normal [facility] ED Clinical Summaryon 2022 ED Clinical Summary [facility] ? Urgent Care [address] [place], [place] [id number] Clinical Summary PERSON INFORMATION Name: BRAULIO CHAKRABORTY Age: 27 Years Sex: FEMALE : 1995 MRN: Acct#: Visit Reason: UC - Eye Redness; BILATERAL EYE DRAINAGE Arrival: 01/05/2023 09:44:09 Discharge: 01/05/2023 10:25:00 LOS: 000 00:41 Check In: 01/05/2023 09:44:09 Checkout: 01/05/2023 10:25:00 Address: [address] [place] [address] [address] [facility] [id number] PCP: Alfonzo Addison MD PROVIDER INFORMATION Provider Role Assigned Unassigned Kalpana Stover PIANO REFINISHER Nurse 01/05/2023 09:53:37 Cuong Cárdenas ED PA [...] Follow-Up: With: Address: When: Alfonzo Addison MD [address] [place] [address] Comments: Diagnosis is bilateral conjunctivitis, [...] verbalizes understanding of instructions given Comment: Normal [facility] ED Patient Summaryon 023 ED Patient Summary [facility] ? Urgent Care [address] [place] [address] PATIENT DISCHARGE INSTRUCTIONS Patient Information Name: BRAULIO CHAKRABORTY Age: 27 Years Date of : 1995 Reason For Visit: UC - Eye Redness; BILATERAL EYE DRAINAGE Arrival Time: 01/05/2023 09:44:09 Primary Care Physician: Alfonzo Addison MD Attending Physician: Cuong Cárdenas Comment: Patient Education With: Address: When: Alfonzo Addison MD [address] [place] [address] Comments: Diagnosis is bilateral conjunctivitis, [...] diet. TENORIO (more content not included)... Normal [facility] Recordon 023 Urgent Care Record [facility] ? Urgent Care [address] [place] [address] PATIENT DISCHARGE INSTRUCTIONS Patient Information Name: BRAULIO [...] classified elsewhere (B96.89) UC - Eye Redness ([id number]) If you received any narcotics, sedation, or [...] documents With: Address: When: Alfonzo Addison MD [address] [place] [address]. [place] [id number] Comments: Diagnosis is bilateral conjunctivitis, this is [...] and treatment you received today in the [facility] were for an urgent problem and are not intended as complete care. It is important for you to follow up with a doctor, nurse practitioner, or physician?s funeral assistant for ongoing care. If your symptoms [...] so we can reach you if necessary. [facility] has provided you with a complete list of medications post discharge. Please inform your program trainer/provider of your visit and for further instruction on these medications. Any specific questions regarding your chronic medications and dosages should be discussed with your primary care physician(s) and/or pharmacist. New Medications [facility], [address] [place], [place] [id number], [phone] ciprofloxacin ophthalmic (ciprofloxacin 0.3% ophthalmic solution) 2 [...] kg B (more content not included)... Normal [facility] Coding Summaryon 09-15-2022 Coding Summary HTMLBase 64 JyjaekztELp1oCq+PGhlYWQ+PE1F ENXrU40oeWFiqM7FC2jTIJ6CVMCQ ZCKEVQ7VIF8rdGQ8RAacV3CjxjSk RuxhyCUsZF99TAx8TAQ0gVsiYIiy yI2ihTUiI8y3LaNtPR91eS41UEjh YHIwYwK4MxUayfvtzVWu R6jdPdXecJViYjx+PHRhYmxlIHdp OPHjMDcwHJUsBbDspZnuRP6nOn1z ZGVyLWNvbGxhcHNlOiBj d8zrKBXoWLevAA4uqSmrV8DyxJS4 VIFac3k2Pf24eLS+TROnBCN1hUbo EIeou578JqKpv9ihAEU3 pIUmDVueALD1T47qe7P7EAMvFSEa YKC0mUB9vP7sdCknxqraC4MttVAr EpB5IZV5rXDtnV3nxTzi meimjP6dKxl+G64JMG3EIWVQRO9Q Dyy5M0VwPqxjdAF+OK02NAWiTY66 vYLvbYTsg9utiMu8TjTg OZKcZEO5aCtyWPqtl2JaGZRrX63r oNAia0K2RXRgiLmujIZcHmAelYR9 gA4gHEqyxxklo0hgggdl Qumgs4stfp25zJ97S81cKNvvMBHy VOR7DKLxVRFfpNmrbt7cnB9aNw1+ SSebr6ryh3etdUw9JgCi QHOyugJagZbbHBY1h3CjFd84E4Gu eDmzd8PiYom6pk01uQJsa5B1rPY9 VCsgXOGobC2nNBjvHmW4 VIYtVvNzeW76yXLsSCnfXt4jbApg hQwzEG4mUBYufnviKNExrG1yWQMx kSTmjIbnHP7vAPUsqpwn x177ZnPsJAW6UWXmhREqR5TtuB9a VaNpVVUhNGSxA2MdkJPfONnfY076 WKvbXqL1SEItxzJoM4Zj ATLxrTejTwT8v1W9Uh7Gq0Khutph WBX1KAwxKZLaAwV8MzPeRaX7A1Aa Rzl0QAFclYgrCE4yY0Pm TYQywjfbbxvenRP3VJZoYPAwoE67 lGQlPLziIo6tt9M6k633LSFzZVQp nS54Jj8ieMlrXROocVQD kK5xckrpb9qdnpnfOeXgRMOjJDq9 WQw4QJQkfOofBbFuFTL6ZaO8PJO0 kVTjqF9ncGzzrqtznL6u Oyc+X90zrU6dNZY7ZUN1rngfEFSz dvGfGP64RG35R9UyAgnvqBBzjNJ+ BPSfcjOvdUzdVR6qTbOx e4uti2UbKGblX1PtOSRqWEmcJpt3 PPXiZOS8qZW8lA5bCMXxTGgfu6O3 rVB9W9WpnbSzgr1rx1cd YMNnPIgsR95udMPso7G4ONBkqYT9 FSIwuYoxQjBenF49Iic+PGNvbGdy r7IdBwwmz9bvw3ptrEk1 UzYqLYYubuAzzAydWAJ7k0LvEx84 M39wLRqsYERpGHAbEZHeKPYrdVdm ki6fuJ3qDf9+PGNvbCB3 yCG9cB9wTQXgMgU4HItyK685QzDp xKTyJgqrq9mhw2hbvYc2BvZiXWEv pfYiiYurCVT3e1EhDy55 W51cLNrgUGOpATUhPBEkJKWtdUma vb9sqZ8cBz9+GJ6we8eang51oX08 dHI+URNtDGV2rWcySBjw RTTtiE2zBUtsKnR9LKPcXbVedZ67 rAPbUJpuNx4vlHntrAkoUX4kGQWa abuoy594JkIih4tgRJPi qQQsLYxdLNA9U17rm5Y2UHNrTHVm ATF5tEO6iU7puFrpjnzrfYGaqUks rbWptMlpBBryVFrhP112 IHRvcDsnPlBhdGllbnQgTmFtZTo8 W3RwDko7YVRsfMerRM5viEVlAOzf Aa8hjZeslHbuAC8iDEHi alwmq451AsUzr7lcFBUvgBNcYTzw YPX3B89tu2E3OZOzFVFbXVQ0tWC5 fK8ucRqftpmdbSCpkZdm aiBprPlhUDnhWXdaN373SRQlhCib DzIwopUzCBUhmOM2LW60OR44oOUg l6I1kGH9D6KpDKTfwphi slaygJX7KYPzLWIemZ24Hh9pbHvg Kv6fYUVfTWW2CPNqvVBbP9EftS1g TzZaISVvXKPqP4SqzEWm SBoeB433QSryJuV3YVJpajFkG6Px KCPrlKmjZeC8z5X1Bh9AZ9M5WO01 LS75xMTtl8O4kKX9T2Ip DZGxnmcplfmwjWY6ZOJeBHKtjT54 Qf2ybReeMc6aZCKtGNK6GMNoyBBd C5GhbW9sEjDrXURuDUSa X7ArjLPuREiwN692NVxyQjP0LZOq vrOyC4AvWLUiuVxvDlV1l8T0Jy6K NUw1SA60DD65gHXse0E4 pEZ6Q4WaKMShacatrnsfoST0RILl HSUvzM91Zl9jpAnnFx5cIYGlEXU1 WXOscKVfG0XaoQ1tJmJi SHMiYEYmV6QmvIGnHDqtW248EDvq UtN1CDPtkfWuW1CtWDXhxHolLlH3 s1D4Ug2JROHnAB79APB1 mOW5IV63MS20Z8WgFttghPRtuRO+ PHRhYmxlIHdpZHRoPScxMDAlJyBz mQotUA2uHx5aBNVwSAWt mLhxzHYqDhUkf0umJEHdHMyqQQ7r xFvcC8KguPE0VOLyn0i5Yv83Y41p H3ShkFB+QXOhfCU9xMX2 zJ7qKmNkYpI0TGyeT016KeRsbEYe Pkhqy9wrv5gnjQa4BpC5RPDctzLh yGqjNLW4l8ScKr61T61g JKzkFJCzVPUoERZxSYVtmZiktn9m lQ9xWw9+SAMebCT9bXO0cR6nUvPo WwE0GTqiH002RpJxsGHa Wiutx6csm0nluZt5KqJxXJNgesLc gNlfVVW1f3QiZb54K3FuvBjqn8Qu Rlw2qu70mHYvn9K3dFR2 B4JoYMVzsthakQKthRdaEH6kWYVl seezQBJpmH9xBWVcG5d7HiJjVcC3 ZRbmR4LxnsT5SIKmhORd BZzbBWU5K38ni1W1TFLgJPLvQKY2 fKH4vK7ljIivvyomtNXdiFlsgsLz iCyyNChxYCliV968TJLk kWwjRDDphK8qJDMuxMLblVmzYZ4t NTBpbjsnPldJTEtJTlMsIFBBSUdF IEFOTjwvdGQ+PHRkIHN0 iFekGLtoTYSktO7cSWKlU4b5NwHf CbE0DVoyY3XtHBXudewwIp77cX4r HyNzZtR2QOiaD2MlunF5 YSSlgAEbTWylTSO5B62jj3C8ZFFf FBGxUZC8wMP2nE3otToowrricOVr dDsgdmVydGljYWwtYWxp L430RDRjdJdvPyRxVzDgMaP7PBg7 K1GgCux9MVTpyOsfHU4ssLZbXCkg Ag7tpLzgmMxlKR7aZURt wjqzENDbeI4rRCXqkEDzbLdbLD4x WFEzvmdab819GbAkXSH5SFTwzGQv B3MklD6mCiIiPETpOFUm I8CmrRUbYKhtP272YVewHyC9JOBv zlIpN4HdQAQqqYaaQfW7u4Y9Ez8c NSBZZWFyczwvdGQ+PHRk IFI9dBvyZSdjZXReqG1fUCXtQ0b1 HpZuXtY2YGygX0NuPDCinwbvKk41 kR2dApTfOgO5HAexC3Fl xwC9KLCzuOYgDMzcGSG6V65pt5I5 IHMiTNAbDNG1fXT3gW1stEtfvler bGVmdDsgdmVydGljYWwt VLjdY473SOYzdTjgNfLKORPHDLxb dGQ+FAOcFWR3qBbkYWjuBBQaeX0k ZVAlU2y6QpTcDxR9FGrl B4LtTUZzcpftVh45iC0wPqMoCuM7 MMhsB3EqkdM8QJWqsXQxKQtgJAE2 R66au9F0YHSsRAMvDUW5 lKR3xN5hdUjxpnwvlOAslLdkbwPt sGdeHAabFXwyU292GHRzqHotIt1W DR78BA47R5ZaWltiiLMm bGU+PHRhYmxlIHdpZHRoPScxMDAl WfPkkZirYN3yRl8uIJYsSQJmxUep aNHwLaGix7zrCJHhMBxc UB1vwImxF7DyrWC5SAZrp1g3Ac07 P48xH1KguCK+USUyjDO3wTU0kA0b RvVdNyR5KKtnM985JaOq qBYtKuqoi7chg3ibwNk1AmPhDLJk hvCghIlnRIQ1a6VmMf21R05nNSdz ZHRoPSIyMCUiIHZhbGln hl5lzQ0jAj5+VODacHK5lNB0hR4u HfJiMhC9TXbuS662AxKnqKFnOowq U03mD5TseRU+PHRyPjx0 METmuPsnPE4kpOCeXHxbJo8mCYT4 HsRvNuAyLPawD0RoGCPcxmbkpdeo lPU6CPIwYPNdvT26Xi7q nCwyZo4uIYGuCED5HJOwkUWhG2Gn fF5fFoNcJEDfAHVjX2WfwJHyHHji A430SBpiOuI4ZNHvxhLf F1YiZUEpkZzxLvH4u4S3Fj3AfMlo tVAbLG3qVgOtVEv5D8RuBah7GAKm uNcwUX7tzVMgGEkbJs6q mXruzLvdVH0bBUPllcanu054BsTc b0ltGDYtoGVdGQapHEV7K06bw6T4 UWGsKBRiRDP5cRE8xU8o bGlnbjogbGVmdDsgdmVydGljYWwt CAkoE507GUAirEzzMcZYYco2L3Sx Ewk8JSJifEjwTA4ucHTj ROuyXw0clDzbrRkiXD9wBJPnolat q073VpPay1itYSLfwWOcDYczAZJ8 V59vv2N8ANRfNHLcROY3 dBI0uX8isYeiuwwlcSTfqEdghbVe zZvdHCksSHgxD036YFYlsYmjWq6F Xrq9P9PqYng6TVKzdRwj QB8bfRZkQAtiSb3uqOmuxEfhWZ1t YCBnhoten288GuFvb5vyQSHuhVPt TTaiERV9N56pz9F9OOUo GMPvGWD9yAS2dN0wgRnhksotvPUe uJihudMrbFvhPDkcHHzcD005UNSa cDsnPlBheWVyOjwvdGQ+ WV97jh88U0MqMktrGfg5IKWrGSS3 iCX1lC6rDPMdHLsob8G4dJW5C1Ca ozLlsn4oh0okSGRsCFca Y29 (more content not included)... Normal [facility] .QC SARS-CoV-2 (COVID-19)/Fl u/RSV (GeneXpert)on 09-08-2022 Internal Control Pass [facility] Comment on above: Order Comment: Order ed by Discern.[[email or web address]_QC] Performed By: #### 7 [id number] ####[facility] (DEFAULT)[address] [place] [address] COVID/Flu/RSV (GeneXpert)on 09-08-2022 Flu A (GXpert COVFLURSV) Negative Normal Negative [facility] Comment on above: Performed By: #### 7 [id number] ####[facility] (DEFAULT)[address] [place] [address] 02969 Flu B (GXpert COVFLURSV) Negative Normal Negative [facility] Comment on above: Performed By: #### 7 [id number] ####[facility] (DEFAULT)[address] [place] [address]97[address] RSV (GXpert COVFLURSV) Negative Normal Negative [facility] Comment on above: Performed By: #### 7 [id number], [id number] ####[facility] (DEFAULT)[address] [place] [address]00 SARS-CoV-2 (COVID-19) RNA KALE+probe Ql (Unsp spec) Negative Normal Negative [facility] Comment on above: Result Comment: Perf ormed by PCR methodology. Performed By: #### 7 [id number], [id number] ####[facility] (DEFAULT)[address] [place] [address] 42782 ED Clinical Summaryon 2022 ED Clinical Summary [facility] ? Urgent Care [address] [place] [address] Clinical Summary PERSON INFORMATION Name: BRAULIO CHAKRABORTY ROCÍO Age: 26 Years Sex: FEMALE : 1995 MRN: Acct#: Visit Reason: UC - Sinus Pain or Congestion; UC - Cough; COUGH, CONGESTION Arrival: 09/08/2022 13:55:11 Discharge: 09/08/2022 15:23:00 LOS: 000 01:28 Check In: 09/08/2022 13:55:11 Checkout: 09/08/2022 15:23:00 Address: [address] [place] [address] [place] [address] PCP: Alfonzo Addison MD PROVIDER INFORMATION Provider Role Assigned Unassigned ABRIL ARTHUR ED PA 09/08/2022 13:58:09 Dakota Crenshaw PIANO REFINISHER Nurse 09/08/2022 14:02:32 VITALS INFORMATION Vital Sign Triage Latest Temperature Tympanic Temperature Temporal Artery Pulse Rate O2 Sat 98 % 98 % Respiratory Rate Blood Pressure /99 mmHg /99 mmHg MEDICAL INFORMATION Medications Given: Allergy Information: traMADol; Contrast Dye; Toradol; ketorolac; azithromycin PHYSICIAN DOCUMENTATION DISCHARGE INFORMATION: Discharge Disposition: Home Discharge Location: Home PATIENT EDUCATION INFORMATION Instructions: Community-Acquired Pneumonia, Adult, Ijwf-hn-Luhn; Hypertension, Adult; DASH Eating Plan Follow-Up: With: Address: When: Alfonzo Addison [address] [place], [place] [id number] [facility] (1) Within 3 to 5 days Comments: [...] Patient/family/caregiver verbalizes understanding of instructions given Comment: [facility] ED Note - Physicianon 2022 ED [...] All Problems (Selected) Anxiety / SNOMED CT 43122988 / Confirmed Depression / SNOMED CT 49886080 / Confirmed High blood pressure / SNOMED CT 6219411600 / Confirmed PCOS (polycystic ovarian syndrome) / SNOMED CT 783797712 / Confirmed Migraine headache / SNOMED CT 68104890 / Confirmed Insomnia / SNOMED CT 048424912 / Confirmed Seasonal allergic rhinitis / SNOMED CT 822016513 / Confirmed Bronchial asthma / SNOMED CT 221921546 / Confirmed GERD (gastroesophageal reflux disease) / SNOMED CT 975631667 / Confirmed Obesity / SNOMED CT 9508343781 / Confirmed Hyperinsulinemia / SNOMED CT 241652531 / Confirmed Disease caused by 2019 novel coronavirus / SNOMED CT 4314358615 / Confirmed Objective CONST: -Well-developed well-nourished. -Acute distress: No -Vitals: reviewed. SKIN: -Gross abnormalities: No EYES: -EOM intact, LANNY: -Sclera conjunctiva: Unremarkable. ENT: - Normal pharynx pink and moist. NECK: -Supple (bpxm-en-tryoj): non-tender. CARD: -Rate and rhythm: Regular RESP: [...] and Plan Assessment and Plan: Diagnosis: Pneumonia (JMO63-DT J18.9), Elevated blood pressure reading (STI51-ES R03.0). Orders Orders Laboratory: SARS-CoV-2 (COVID-19)/Flu/RSV (GeneXpert) [...] on: 09/08/2022 15:44 EST] ABRIL ARTHUR Normal [facility] ED Patient Summaryon 023 ED Patient Summary [facility] ? Urgent Care [address] [place] [address] PATIENT DISCHARGE INSTRUCTIONS Patient Information Name: BRAULIO CHAKRABORTY Age: 26 Years Date of : 1995 Reason For Visit: UC - Sinus Pain or Congestion; UC - Cough; COUGH, CONGESTION Arrival Time: 09/08/2022 13:55:11 Primary Care Physician: Alfonzo Addison MD Attending Physician: ABRIL ARTHUR Comment: Patient Education With: Address: When: Alfonzo Addison [address] [place] [id number] Business (1) Within 3 to 5 days [...] these instructions at home: Medicines ? Take otcd-cuw-uauipir and prescription medicines only as told by [...] of age (more content not included)... Normal [facility] 023 Urgent Care Record [facility] ? Urgent Care [address] [place] [address] PATIENT DISCHARGE INSTRUCTIONS Patient Information Name: BRAULIO CHAKRABORTY Age: 26 Years Date of : 1995 Reason For Visit: UC - Sinus Pain or Congestion; UC - Cough; COUGH, CONGESTION Arrival Time: 09/08/2022 13:55:11 Primary Care Physician: Alfonzo Addison MD Attending Physician: ABRIL ARTHUR Comment: Visit Diagnosis: Diagnoses This Visit Elevated blood pressure reading (R03.0) Pneumonia (J18.9) UC - Cough ([id number]) UC - Sinus Pain or Congestion ([id number]) If you received any narcotics, sedation, or [...] legal documents With: Address: When: Alfonzo Addison [facility] [place] [address] Business (1) Within 3 to 5 days Comments: Follow-up primary care provider for reevaluation next few days. Continue with supportive care plenty of rest and fluids, antibiotics and probiotics as discussed. Return to the emergency department for any worsening issues such as high spiking fevers, trouble breathing, or any other problems. Medication Information: The exam and treatment you received today in the [facility] were for an urgent problem and are not intended as complete care. It is important for you to follow up with a doctor, nurse practitioner, or physician?s funeral assistant for ongoing care. If your symptoms [...] so we can reach you if necessary. [facility] has provided you with a complete list of medications post discharge. Please inform your program trainer/provider of your visit and for further instruction on these medications. Any specific questions regarding your chronic medications and dosages should be discussed with your primary care physician(s) and/or pharmacist. New Medications [facility] [address], [address] [place], [place] [id number], [phone] albuterol (Ventolin HFA 90 mcg/inh inhalation aerosol) [...] Comments A (more content not included)... Normal [facility] XR Chest 2 Viewson 3 XR [...] MD 09/08/22 2:48 pm Technologist: TARUN ERICKSON [facility] MRI KNEE WO CONTRAST LEFTon 04-18-2017 MRI KNEE WO CONTRAST LEFT [facility] [address] [place] [address] Patient Name: BRAULIO CELIS : 1995Sex: FAge: Race: WhiteMRN: [id number]. Location: LPOPPatient Status: DVisit #: [id number] Date: 04/18/2017 8:15:00 AMCompleted Date: 04/18/2017 08:53 AMRequesting Provider: MORIAH BOND Attending Provider: Report Copy To: OLMAN VELA Signs & Symptoms: Internal derangement knee, leftHistory: Order in RIS, No FB per mother Auth # [id number] Valid 04/06/17-05/06/17. Auth scanned into RIS.Comments: Exam: MRI KNEE WO CONTRAST LEFTAccession #: [id number] MRI KNEE WO CONTRAST LEFT 04/18/2017 8:53 [...] 16. Electronically signed by:Shiv Saba. Transcribed by: [email or web address], User Resident: Electronically Signed by: SHIV SABA @ 04/20/2017 02:46 PM Normal [facility] Vital Signs Date Time Vital Sign Value Performing Clinician Jelena garcia 08-18-2023 10:27-0500 Body mass index (BMI) [Ratio] 44.19 kg/m2 [employer] Work Phone: [facility] [place] 08-18-2023 10:27-0500 Body weight 127.97 kg [employer] Work Phone: [facility] [place] 08-18-2023 10:27-0500 Diastolic blood pressure 80 mm[Hg] [employer] Work Phone: [facility] [place] 08-18-2023 10:27-0500 Systolic blood pressure 122 mm[Hg] [employer] Work Phone: [facility] [place] 08-04-2023 10:46-0500 Diastolic blood pressure 85 mm[Hg] Yanelis Posey MD Work Phone: [facility] 08-04-2023 10:46-0500 Heart rate 85 /min Yanelis Posey MD Work Phone: [facility] 08-04-2023 10:46-0500 Systolic blood pressure 138 mm[Hg] Yanelis Posey MD Work Phone: [facility] 08-04-2023 08:25-0500 Body height 170.2 cm Yanelis Posey MD Work Phone: [facility] 08-04-2023 08:25-0500 Body mass index (BMI) [Ratio] 43.98 kg/m2 Yanelis Posey MD Work Phone: [facility] 08-04-2023 08:25-0500 Body weight 127.37 kg Yanelis Posey MD Work Phone: [facility] Encounters Encounter Date Encounter Type Care Provider Facility Start: 2023 End: 2023 ambulatory JACKY EMILI Not Available Start: 08-31-2023 Orders Only Carla Guerra [facility] Comment on above: IUGR (intrauterine g rowth [...] second trimester Start: 08-20-2023 Documentation procedure Jeniffer WOODWARD Work Phone: [facility] Comment on above: Outgoing Ca ll Start: 08-18-2023 End: 08-18-2023 ambulatory JACKY EMILI Not Available Start: 08-18-2023 End: 08-18-2023 flow sheet Jacky Medranoo DO Work Phone: [facility] Comment on above: Second trimester pre gnancy; Diabetes mellitus screening; Thyroid disease affecting ([facility]) Start: 08-17-2023 Telephone encounter Althea PARIKH [facility] Start: 08-06-2023 End: 08-07-2023 ambulatory ALFONZO ADDISON [facility] Start: 08-05-2023 Documentation procedure Yanelis Posey MD Work Phone: [facility] Start: 08-05-2023 Telephone encounter Stacy Justin RN [facility] Start: 08-04-2023 Documentation procedure Carla Castillo bandar PERSONAL FINANCIAL COUNSELOR [facility] Start: 08-04-2023 Telephone encounter Leslie reese [facility] Comment on above: Appointment IUGR (intrauterine g rowth restriction) affecting care of mother, second trimester, not applicable or unspecified fetus (Primary Dx); History of delivery, currently ; 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 trimester; Chronic hypertension affecting Start: 08-04-2023 End: 08-05[facility]: 08-04-2023 End: 08-04-2023 Office outpatient visit 40 minutes Yanelis Posey MD Work Phone: [facility] Comment on above: IUGR (intrauterine g rowth [...] 05-25-2023 End: 05-26-2023 ambulatory Alfonzo Addison MD Facility:[facility] Start: 04-29-2023 End: 04-30-2023 ambulatory DINORAH GILBERT Facility:[facility] Start: 04-14-2023 End: 04-15-2023 ambulatory Alfonzo Addison MD Facility:[facility] Start: 03-05-2023 End: 03-06-2023 ambulatory Alfonzo Addison MD Facility:[facility] Start: 01-05-2023 End: 01-05-2023 ambulatory Alfonzo Addison MD Facility:[facility] Start: 11-24-2022 End: 11-24-[address] DOCTOR FROST Facility: Start: 11-18-2022 End: 11-19-2022 ambulatory Alfonzo Addison MD Facility:[facility] Start: 09-16-2022 End: 09-17-2022 ambulatory Alfonzo Addison MD Facility:[facility] Start: 09-08-2022 End: 09-08-2022 ambulatory Alfonzo Addison MD Facility:[facility] Start: 04-18-2017 End: 04-19-2017 Ambulatory MORIAH [facility] Facility:[facility] Procedures Date Procedure Procedure Detail Performing Clinician Start: 08-18-2023 Urnls dip stick/tabl et rgnt non-auto w/o micrscp Jacky Emili DO Work Phone: Start: 08-04-2023 UNLISTED LAB TEST Yanelis Posey MD Work Phone: Plan of Treatment Date Care Activity Detail Author Start: 06-05-2031 DTaP,Tdap and Td Vaccines (7 - Td or Tdap) DTaP,Tdap and Td Vaccines (7 - Td or Tdap) [facility] Start: 08-04-2024 Adult BMI Screening Adult BMI Screen ing [facility] Start: 08-04-2024 Tobacco Screening Tobacco Screening [facility] Start: 08-04-2024 End: 08-04-2024 US MFM with or without consult US MFM with or without consult Imaging Routine IUGR (intrauterine growth restriction) affecting care of mother, second trimester, not applicable or unspecified fetus History of delivery, currently 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 trimester Chronic hypertension affecting Expected: 08/04/2024 (Approximate), Expires: 08/04/2024 [facility] Work Phone: Comment on above: Expected: 08/04/2024 (Approximate), Expires: 08/04/2024 Start: 09-15-2023 End: 09-15-2023 Patient encounter procedure 09/15/2023 10:20 AM EST Routine [facility] [address] [place] [id number] Jacky Mock DO [address] [place] [address] [facility] Start: 08-18-2023 End: 08-18-2024 CBC panel - Blood by Automated count CBC Lab Routine Diabetes mellitus screening Expected: 08/18/2023 (Approximate), Expires: 08/18/2024 [facility] Work Phone: Comment on above: Expected: 08/18/2023 (Approximate), Expires: 08/18/2024 Start: 08-18-2023 End: 08-18-2024 Measurement of glucose 1 hour after glucose challenge for glucose tolerance test Glucose tolerance, 1 hour Lab Routine Diabetes mellitus screening Expected: 08/18/2023 (Approximate), Expires: 08/18/2024 [facility] Comment on above: Expected: 08/18/2023 (Approximate), Expires: 08/18/2024 Start: 08-17-2023 End: 08-17-2023 Patient encounter procedure [facility] Start: 08-05-2023 End: 08-05-2024 Unlisted Lab Test Unlisted Lab Test Lab Routine IUGR (intrauterine growth restriction) affecting care of mother, second trimester, not applicable or unspecified fetus Maternal care for other known or suspected poor growth, unspecified trimester, not applicable or unspecified Expected: 08/05/2023 (Approximate), Expires: 08/05/2024 [facility] Work Phone: Comment on above: Expected: 08/05/2023 (Approximate), Expires: 08/05/2024 Start: 03-13-2023 COVID-19 Vaccine ( season) COVID-19 Vaccine ( season) [facility] Start: 03-13-2023 Influenza vaccination [facility] Start: 2017 Screening for malign ant neoplasm of cervix Pap Smear [facility] Start: 2014 Adult BMI Follow Up Plan Adult BMI Follow Up Plan [facility] Start: 2008 Depression Screening Depression Scre tommysylvia [facility] End: 08-03-2024 Beta-2 glycoprotein antibodies Beta-2 glycoprotein antibodies Lab Routine IUGR (intrauterine growth restriction) affecting care of mother, second trimester, not applicable or unspecified fetus 1 Occurrences starting 08/04/2023 until 08/03/2024 [facility] Work Phone: Comment on above: 1 Occurrences starti ng 08/04/2023 until 08/03/2024 Immunizations Immunization Date Immunization Notes Care Provider Pete olson 06-10-2022 influenza virus vaccine, unspecified formulation [facility] 06-05-2021 influenza, injectabl e, quadrivalent, preservative free [facility] 06-05-2021 tetanus toxoid, reduced diphtheria toxoid, and acellular pertussis vaccine, adsorbed [facility] 06-05-2021 influenza virus vaccine, unspecified formulation Jacky Mock DO Work Phone: [facility] Payers Date Payer Category Payer Unknown [id number] 2020 Unknown [id number] 1995 Unknown [id number] 2.16.84 [id number] 1995 Unknown [id number] 2.16.8 40.1.810651.3.579.2.8 1996 Unknown [id number] 2.16.8 40.1.868765.3.579.2.8 1996 Unknown [id number] 2.16.8 40.1.414730.3.579.2.8 1996 Unknown [id number] 2.16.8 40.1.061376.3.579.2.718 1995 Unknown [id number] 2.16.8 40.1.806944.3.579.2.718 1995 Unknown [id number] 2.16.8 40.1.080864.3.579.2.718 1995 Unknown [id number] 2.16.8 40.1.384365.3.579.2.718 1995 Unknown [id number] 2.16.8 40.1.770419.3.579.2.718 1996 Unknown [id number] 2.16.8 40.1.317847.3.579.2.1286 1996 Unknown [id number] 2.16.8 40.1.247427.3.579.2.1286 1996 Unknown [id number] 2.16.8 40.1.846315.3.579.2.1286 1996 Unknown [id number] 2.16.84 0.1.036332.3.579.2.1259 1996 Unknown [id number] 2.16.84 0.1.832906.3.579.2.1259 1996 Unknown [id number] 2.16.84 0.1.732256.3.579.2.1259 1996 Unknown [id number] 2.16.840 .1.013505.3.579.2.1259 1995 Unknown [id number] 2.16. 840.1.016707.3.579.2.175 1959 Unknown [id number] Unknown [id number] Social History Date Type Detail Facility Start: 12-19-2022 End: 05-25-2023 Tobacco smoking status TNIS Never smoked tobacco [facility] Start: 05-25-2023 Tobacco use and exposure Smokeless tobacco non-user [facility] Start: 08-04-2023 End: 08-18-2023 Alcohol intake Ex-drinker (finding) [facility] Start: 03-21-2020 End: 08-23-2020 History of Social function [facility] Start: 03-21-2020 End: 08-23-2020 Alcohol Use Disorder Identification Test - Consumption [AUDIT-C] [facility] Frequency of Alcohol Consumption Never [facility] Start: 03-26-2023 [facility] Start: 1995 Sex Assigned At Female [facility] Start: 04-22-2021 Gender identity Identifies as female gender (finding) [facility] Start: 04-22-2021 Sexual orientation Heterosexual (finding) [facility] Start: 12-19-2022 Alcohol Comment occasional [facility] Goals Date Patient Goal Desired Activity /State Personal health goal Clinical Notes 09-08-2022 to 08-31-2023 Yanelis Posey MD - 08/31/2023 5:05 PM CRISSY Renae - 08/20/2023 3:46 PM CRISSY Renae - [...] conditions (Bartter type 2 & cystic fibrosis [id number]) Our genetic counselor reviewed the results with [...] this patient's care. Yanelis Posey MD Professor, [facility] Maternal Medicine documented in this encounter [facility] 08-20-2023 History of Present illness Narrative Summary: [...] concerns come up. documented in this encounter [facility] 08-20-2023 History of Present illness Narrative Summary: Carrier Screening Results Called and left VM for Braulio requesting a call back regarding carrier screening results. documented in this encounter [facility] 08-18-2023 History of Present illness Narrative Reason for Appointment: Patient ID: Braulio Chakraborty is a 27 y.o. female who presents for Routine Visit Patient presents today for Return OB appointment. Current Medications: has a current medication list which includes the following prescription(s): b-12, labetalol, levothyroxine, metoclopramide, omeprazole, and pyridoxine. Medical History: Active Ambulatory Problems Diagnosis Date Noted Anxiety 02/12/2023 Bronchial asthma (CMS/HCC) 02/12/2023 Depression (CMS/HCC) 02/12/2023 Essential hypertension (CMS/HCC) 02/12/2023 GERD (gastroesophageal reflux disease) 02/12/2023 Insomnia 02/12/2023 Maternal care for other known or suspected poor growth, unspecified trimester, not applicable or unspecified 05/28/2021 Migraine headache (CMS/HCC) 02/12/2023 Morbid obesity (CMS/HCC) 02/12/2023 PCOS (polycystic ovarian syndrome) 02/12/2023 Seasonal allergic rhinitis 02/12/2023 Resolved Ambulatory Problems Diagnosis Date Noted No Resolved Ambulatory Problems Past Medical History: Diagnosis Date History of Hyperthyroidism ([facility]/HCC) Hypothyroidism ([facility]) Insulin resistance Morbid obesity with body mass index (BMI) of 40.0 to 49.9 ([facility]) Pap smear for cervical cancer screening [...] SECTION, LOW TRANSVERSE MOLE REMOVAL 12/2011 benign WI KNEE SCOPE,CLEAN/DRAIN Left 09/2014 TONSILLECTOMY TUMOR REMOVAL [...] nursing note reviewed. Exam conducted with a ios developer present. Vitals: Estimated body mass index is 44.19 kg/m as calculated from the following: Height as of 7/11/23: 5' 7 . Weight as of this encounter: 282 lb 1.9 oz. BP: 122/80 Patient's last menstrual period was 03/12/2023. Assessment/Plan Encounter Diagnoses Name Primary? Second trimester Diabetes mellitus screening Thyroid disease affecting (CMS/HCC) Patient presents today for a routine obstetrics appointment. Patient is currently 22w5d with a Estimated Date of Delivery: 12/17/23. Pt doing well- reviewed recent [facility] appt. Pt to return to [facility] in 2 weeks. Pt to return in 4 weeks for scheduled OB appt. Documented by [place] Andrea LPN on behalf of: Jacky Mock DO documented in this encounter [facility] 08-17-2023 Miscellaneous Notes Patient returned call states she is being seen somewhere else. documented in this encounter [facility] 08-17-2023 Telephone encounter Note Patient returned call states she is being seen somewhere else. [facility] 08-17-2023 Miscellaneous Notes Please call us back to get rescheduled for your jordan. documented in this encounter [facility] 08-17-2023 Telephone encounter Note Please call us back to get rescheduled for your jordan. [facility] 08-05-2023 Miscellaneous Notes Left message for patient that an additional lab has been ordered that needs to be drawn at a [facility] lab only. Call back phone number given if patient has questions. Patient returned call to [facility] and [facility]. Patient also had concerns regarding future Doppler US being done here at [facility]. Patient will do initial Doppler here and may need to do [place] due to son having surgery in [place]. documented in this encounter [facility] 08-05-2023 Telephone encounter Note Left message for patient that an additional lab has been ordered that needs to be drawn at a [facility] lab only. Call back phone number given if patient has questions. [facility] 08-05-2023 Telephone encounter Note Patient returned call to [facility] and will have additional lab done at a [facility]. Patient also had concerns regarding future Doppler US being done here at [facility]. Patient will do initial Doppler here and may need to do [place] due to son having surgery in [place]. [facility] 08-05-2023 History of Present illness Narrative Maternal- [...] lab is drawn at 1 of the [facility] locations because it seems that result availability and of test and correctly performed test is more likely when ordered through our Internal lab. I will ask our nursing staff to contact the patient and relay instructions. Yanelis Posey MD Professor, [facility] Maternal Medicine documented in this encounter [facility] 08-04-2023 History of Present illness Narrative Lab drawn for cell-free DNA testing. Patient tolerated well. (Lab came to draw ) documented in this encounter [facility] 08-04-2023 Miscellaneous Notes Patient refused to schedule umb doppler in 3 weeks. Son is having surgery and she will call at a later time to schedule. documented in this encounter [facility] 08-04-2023 Telephone encounter Note Patient refused to schedule umb doppler in 3 weeks. Son is having surgery and she will call at a later time to schedule. [facility] 08-04-2023 History of Present illness Narrative Headache/epigastric [...] was 45 minutes. 34 minutes were direct [id number] for counseling and coordination of care during visits itself. An additional 4 minutes or for same day preparation to see the patient. Another 7 minutes were needed were needed to prepare report and or to perform other duties to complete visit. Thank you for sending this patient. Yanelis Posey MD Maternal Medicine Professor, [facility] [phone] Office [phone] Personal Cell Phone Office Note: Chronic hypertension [...] OB provider team. documented in this encounter [facility] 01-05-2023 Note Patient Education Ma terials Follows: [...] wine (148 mL (more content not included)... [facility] 09-08-2022 Note Patient Education Ma terials [...] skin, beans, e (more content not included)... [facility] Evaluation note Diagnosis IUGR (intrauterine growth restriction) affecting care of mother, second trimester, not applicable or unspecified fetus- Primary History of delivery, currently with history of pre-term labor 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 trimester Chronic hypertension affecting [facility] Diagnosis IUGR (intrauterine growth restriction) affecting care of mother, second trimester, not applicable or unspecified fetus- Primary History of delivery, currently with history of pre-term labor 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 trimester Hx of preeclampsia, prior , currently , second trimester [facility] Diagnosis IUGR (intrauterine growth restriction) affecting care of mother, second trimester, not applicable or unspecified fetus- Primary Maternal care for other known or suspected poor growth, unspecified trimester, not applicable or unspecified [facility]* Diagnosis Second trimester state, incidental Diabetes mellitus screening Screening for diabetes mellitus Thyroid disease affecting ([facility]) documented in this encounter [facility]* Diagnosis IUGR (intrauterine growth restriction) affecting care of mother, second trimester, not applicable or unspecified fetus Chronic hypertension affecting Hx of preeclampsia, prior , currently , second trimester [facility] Diagnosis IUGR (intrauterine growth restriction) affecting care of mother, second trimester, not applicable or unspecified fetus- Primary Chronic hypertension affecting Hx of preeclampsia, prior , currently , second trimester documented in this encounter [facility] System[facility]ructions[facility] on filedocumented in this encounter [facility] SystemInstructionsNot on filedocumented in this encounter [facility] SystemInstructionsNot on filedocumented in this encounter [facility] filedocumented in this encounter [facility] filedocumented in [facility] Summary Purpose Family History No Family [...] Referral Specialty Diagnoses / Procedures Referred By Contac t Referred To Contact Maternal and Medicine Diagnoses IUGR (intrauterine growth restriction) affecting care of mother, second trimester, not applicable or unspecified fetus History of delivery, currently 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 trimester Chronic hypertension affecting Procedures US MFM with or without consult Yanelis Posey MD [address] [place] [address] [facility] Maternal Med [address] [place] [address] Referral ID Status Reason Start Date Expiration Date V isits Requested Visits Authorized [id number] Pending Review 08/04/2023 08/03/2024 1 1 Additional Source Comments INFORMATION SOURCE (unrecogn ized section and content) DATE CREATED AUTHOR 01/05/2018 [facility] DATE CREATED AUTHOR AUTHOR'S ORGANIZ ATION 11/25/2022 [facility] DATE CREATED AUTHOR AUTHOR'S ORGANIZ ATION 07/08/2023 [facility] DATE CREATED AUTHOR AUTHOR'S ORGANIZ ATION 08/08/2023 [facility] DATE CREATED AUTHOR AUTHOR'S ORGANIZ ATION 09/22/2023 [facility] EPIC DATE CREATED AUTHOR AUTHOR'S ORGANIZ ATION 09/25/2023 [facility] Reason for Visit (unrecogniz ed section and content) Reason Onset Date Comments Appointment 08/04/2023 Reason Comments Hypertension Reason Comments Routine Visit Reason Onset Date Comments Outgoing Call 08/20/2023 Care Teams (unrecognized sec tion and content) Principal Research Economist Relationship Specialty Start Date End Date Alfonzo Addison MD [address] [place] [id number] PCP - General Family Medicine 04/05/20 Principal Research Economist Relationship Specialty Start Date End Date Alfonzo Addison MD [address] [place] [address] [phone] PCP - General Family Medicine 04/05/20 Principal Research Economist Relationship Specialty Start Date End Date Alfonzo Addison MD [address] [place] [address] [id number] PCP - General Family Medicine 04/05/20 Principal Research Economist Relationship Specialty Start Date End Date Alfonzo Addison MD [address] [place] [phone] PCP - General Family Medicine 04/05/20 Principal Research Economist Relationship Specialty Start Date End Date Alfonzo Addison MD [address] [place] [id number] PCP - General Family Medicine 04/05/20 Principal Research Economist Relationship Specialty Start Date End Date Alfonzo Addison MD [address] [place] [phone] PCP - General Family Medicine 04/05/20 Principal Research Economist Relationship Specialty Start Date End Date Alfonzo Addison MD [address] [place] [id number] PCP - General Family Medicine 04/05/20 Principal Research Economist Relationship Specialty Start Date End Date Alfonzo Addison MD [address] [place] [phone] PCP - General Family Medicine 12/22/22 Principal Research Economist Relationship Specialty Start Date End Date Alfonzo Addison MD [address] [place] [address] [id number] PCP - General Family Medicine 04/05/20 FOR [...] BE BASED ON THE PRIMARY CLINICAL RECORDS. [facility]. provides no warranty or guarantee of the accuracy or completeness of information in this document.
[2023-09-27 11:09] LABS: Bilirubin Urine NEGATIVE (NEGATIVE); Blood Urine NEGATIVE (NEGATIVE); Clarity Urine CLEAR (CLEAR); Color Urine YELLOW (YELLOW); Glucose Urine UA NEGATIVE (NEGATIVE); Ketones Urine NEGATIVE (NEGATIVE); Leukocyte Esterase Urine TRACE (NEGATIVE); Nitrite Urine NEGATIVE (NEGATIVE); Protein Urine TRACE mg/dL (NEG/TRACE); Specific Gravity Urine >=1.030 (1.005-1.025); Urobilinogen Urine 0.2 EU/dL (0.2-1.0); pH Urine 5.5 (5.0-9.0)
[2023-09-27 11:14] LABS: Urine Microscopic Indicated YES
[2023-09-27 11:17] LABS: Bacteria Urine LARGE #/HPF (NONE SEEN); Mucus Urine LARGE (NONE SEEN); RBC Urine NONE SEEN #/HPF (0-2); Squamous Epithelial Cell Urine MANY #/LPF (NONE/RARE)
[2023-09-27 11:18] LABS: Urine Culture Indicated YES
[2023-09-27] MEDS: LABETALOL HCL 20 MG/4 ML SYRINGE 5 MG IVP (11:53)
[2023-09-27 12:00] LABS: Basophils Absolute Auto 0.1 10^3/uL (0.0-0.1); Basophils Percent Auto 0.3 % (0.2-2.0); Eosinophils Absolute Auto 0.1 10^3/uL (0.0-0.7); Eosinophils Percent Auto 0.7 % (0.9-7.0); Hematocrit 36.3 % (36.0-48.0); Hemoglobin 12.2 g/dL (12.0-16.0); Immature Granulocytes Abs Auto 0.08 10^3/uL (0.00-0.03); Immature Granulocytes Pct Auto 0.5 % (0.0-0.5); Lymphocytes Absolute Auto 1.9 10^3/uL (1.2-3.8); Lymphocytes Percent Auto 12.9 % (20.5-60.0); Mean Corpuscular HGB Conc 33.6 g/dL (29.9-35.2); Mean Corpuscular Hemoglobin 30.4 pg (26.7-34.0); Mean Corpuscular Volume 90.5 fL (81.0-99.0); Mean Platelet Volume 9.8 fL (9.5-13.5); Monocytes Absolute Auto 0.5 10^3/uL (0.3-0.8); Monocytes Percent Auto 3.5 % (1.7-12.0); Neutrophils Absolute Auto 12.1 10^3/uL (1.4-6.5); Neutrophils Percent Auto 82.1 % (43.0-75.0); Platelet Count 307 10^3/uL (150-450); Red Blood Count 4.01 10^6/uL (4.20-5.40); Red Cell Distribution Width 12.1 % (11.0-15.0); White Blood Count 14.7 10^3/uL (4.0-11.0)
--- OUTSIDE RECORDS SUMMARY | 2023-09-27 12:14 | XMS_ITS | CCD ---
Author Name Unknown Address [address] [place] [address] Organization [facility] Care Team Providers Care Gluer And Slicer Hand Name Role Phone MORIAH BOND Unavailable Unavailable NEFTALIMichael MORIAH Unavailable Unavailable SELF, REFERRED Unavailable Unavailable [...] Unavailable Alfonzo Addison MD Primary Care Provider [phone] JACKY MOCK Referring Unavailable ALFONZO ADDISON Primary [...] (2 sources) azithromycin Drug Allergy 0 [facility] Repository (3 sources) ketorolac; Translations: [Toradol] Drug Allergy 0 [facility] Repository (2 sources) traMADol Drug Allergy 0 [facility] Repository (1 source) Iodine (And Iodine Containting Drugs) Drug allergy (disorder) 5 [facility] Repository (17 sources) Azithromycin; Translations: [azithromycin] Drug Allergy 4 [facility] Repository (1 source) Contrast media; Translations: [Contrast Dye] Propensity to adverse reactions to drug (disorder) [facility] Repository (15 sources) Ketorolac; Translations: [ketorolac] Drug Allergy 4 [facility] Repository (17 sources) traMADol; Translations: [traMADol] Drug Allergy 4 [facility] Repository (14 sources) Contrast media; Translations: [DYE] Propensity to adverse reactions to drug 8 [facility] (2 sources) Ketorolac trometamol Allergy to substance 3 [facility] (2 sources) Other Propensity to adverse reactions [address] [facility] Medications Current Medications Medication Drug Class(es) Dates [...] 08-31 Unlisted lab test see scanned report [facility] Urinalysis macro (dipstick) panel (U)on 08-18-2023 Bilirubin, UA Negative Negative - 4(70) +++ mg/dL [facility] Blood, UA Negative Negative - 50 Izaiah/mcL [facility] Healthcare Clarity, UA Clear [facility] Color, UA Yellow [facility] Glucose, UA Negative Negative - 1999(110) ++++ mg/dL [facility] Interpretation and review of laboratory results Abnormal [facility] Ketones, UA Negative Negative - 160(16) ++++ mg/dL [facility] Leukocytes, UA Trace Negative - 500+++ Susy/mcL [facility] Nitrite, UA Negative Negative - Positive [facility] Healthcare pH, UA 7.0 5 - 9 [facility] Protein, UA Trace Negative - 2000(20) ++++ mg/dL [facility] Spec Grav, UA 1.025 1 - 1.[address] [facility] Urobilinogen, UA 0.2 0.2 - 12 mg/dL [facility] Coxsackie B Abon 08-15-2023 Blanquita tp. B1 <1:10 Normal <1:10 [facility] Comment on above: Performed By: #### U RTPRT #### [facility] [address] [place] [address] Plastic Welding Machine Operator: MD Blanquita Barton. B2 <1:10 Normal <1:10 [facility] Comment on above: Performed By: #### U RTPRT #### [facility] [address] [place] [address] Plastic Welding Machine Operator: MD Blanquita Barton B3 <1:10 Normal <1:10 [facility] Comment on above: Performed By: #### U RTPRT #### [facility] [address] [place] [address] Plastic Welding Machine Operator: MD Blanquita Barton B4 1:40 Normal <1:10 [facility] Comment on above: Performed By: #### U RTPRT #### [facility] [address] [place] [address] Plastic Welding Machine Operator: MD Blanquita Barton B5 1:20 Normal <1:10 [facility] Comment on above: Performed By: #### U RTPRT #### [facility] [address] [place] [address] Plastic Welding Machine Operator: MD Blanquita Barton B6 <1:10 Normal <1:10 [facility] Comment on above: Result Comment: (NOT E) INTERPRETIVE INFORMATION: Coxsackie B Virus Single positive antibody titers of greater than or equal to 1:80 may indicate past or current infection. Sero- conversion or an increase in titers between acute and convalescent sera of at least fourfold is considered strong evidence of current or recent infection. Performed By: [facility] [address] [place] [address] Stained Glass Installer: Nikita Pantoja MD, PhD CLIA Number: [id number] Performed By: #### U RTPRT #### [place] [id number] Plastic Welding Machine Operator: Gonzalo Cain MD Protein S Ag, Freeon 024 Protein S Ag, Free 61 % Normal 55-123 [facility] Comment on above: Result Comment: (NOT [...] reference intervals for this test in the [facility] ([employer]). Performed By: [facility] [address] [place] [address] Stained Glass Installer: Nikita Pantoja MD, PhD CLIA Number: [id number] Performed By: #### U RTPRT #### [place] [id number] Plastic Welding Machine Operator: Gonzalo Cain MD Protein S, Antigenicon 08-14 Protein S, Antigenic 129 % High 63-126 [facility] Comment on above: Result Comment: (NOT E) INTERPRETIVE INFORMATION: Protein S, Total Antigen Patients on warfarin may have decreased protein S values. Patients should be off warfarin therapy for two weeks for accurate measurement of protein S. Access complete set of age- and/or gender-specific reference intervals for this test in the [facility] ([employer]). Performed By: [facility] [address] [place] [address] Stained Glass Installer: Nikita Pantoja MD, PhD CLIA Number: [id number] Performed By: #### U RTPRT #### [facility] [address] [place] [address] Plastic Welding Machine Operator: Gonzalo Cain MD Antithrombin III Valentina 08-12 Antithrombin III Act 114 % Normal 83-122 [facility] Comment on above: Result Comment: Patients receiving Hirudin may have a falsely decreased Antitrombin III Activity. Performed By: #### U RTPRT #### [facility] [address] [place] [address] Plastic Welding Machine Operator: Gonzalo Cain MD Lupus Anticoagulanton 2023 Dilute Madhuri Viper Negative Normal [facility]UP [facility] Comment on above: Performed By: #### L UPPRO #### [address] [address] Plastic Welding Machine Operator: Gonzalo Cain MD Protein C Activityon 024 Protein C Activity 86 % Normal >80 [facility] Comment on above: Result Comment: Patients [...] VIII. Performed By: #### U RTPRT #### [address] [address] Plastic Welding Machine Operator: Gonzalo Cain MD Protein S Activityon 024 Protein S Activity 54 % Low 59-130 [facility] Comment on above: Result Comment: Patients [...] VIII. Performed By: #### U RTPRT #### [facility] [address] [place] [address] Plastic Welding Machine Operator: Gonzalo Cain MD Factor V Mutationon 08-11-19 24 F 5 SPECIMEN Whole Blood Normal [facility] Comment on above: Performed By: #### A PARVP, AF5MUT, APRTSF, ACOXAB, ACOXA9, APTMUT, AMTHFR, APROTS #### [facility] [address] [place] [address] Plastic Welding Machine Operator: Arben Carrington MD #### AT3A, PROSAC, HOCYS, ACARDA, FT4, PROCAC, TSH #### [facility] [place], [place] [id number] Plastic Welding Machine Operator: Gonzlao Cain MD FACTOR 5 MUTATION Negative Normal [facility] Comment on above: Result Comment: (NOT E) Indication for testing: Assess genetic risk for thrombosis. NEGATIVE: The factor V Leiden variant, c.1601G>A; p.Fkp121Xqv, was not detected. This does not exclude [...] function in the F5 gene variant c.1601G>A (p.Hmj648Irz). Legacy nomenclature: [id number] (1691G>A) CLINICAL SENSITIVITY: 20-50 percent of individuals with an isolated VTE have the FVL variant. METHODOLOGY: Polymerase chain reaction and fluorescence monitoring. ANALYTICAL SENSITIVITY AND SPECIFICITY: 99 percent. LIMITATIONS: Diagnostic errors can occur due to rare sequence variations. F5 gene mutations, other than p.Prr898Mbd, will not be detected. This test was developed and its performance characteristics determined by [facility]. It has not been cleared or approved by the US Food and Drug Administration. This test was performed in a CLIA certified laboratory and is intended for clinical purposes. Counseling and informed consent are recommended for genetic testing. Consent forms are available online. Performed By: [facility] [address] [place] [address] Stained Glass Installer: Nikita Pantoja MD, PhD CLIA Number: [id number] Performed By: #### A PARVP, AF5MUT, APRTSF, ACOXAB, ACOXA9, APTMUT, AMTHFR, APROTS #### [facility] [address] [place] [address] Plastic Welding Machine Operator: Arben Carrington MD #### AT3A, PROSAC, HOCYS, ACARDA, FT4, PROCAC, TSH #### [facility] [place] [address] Plastic Welding Machine Operator: Gonzalo Cain MD PT Mutation [id number] 08-11-19 PT [id number] VARIANT Negative Normal [facility] Comment on above: Result Comment: (NOT E) Indication for testing: Assess genetic risk for thrombosis. NEGATIVE: The Factor II, prothrombin J86488C mutation, was not detected. Other causes of [...] M.D., Ph.D. BACKGROUND INFORMATION: Prothrombin (F2) c.*97G>A (U47669Q) Pathogenic Variant CHARACTERISTICS: The Factor II, c.*97G>A (N09637O) pathogenic variant is a common genetic risk [...] CAUSE: Homozygosity or heterozygosity for F2 c.*97G>A (U24116K). PATHOGENIC VARIANT TESTED: F2 c.*97G>A (F21164T). CLINICAL SENSITIVITY FOR VENOUS THROMBOSIS: Approximately 10 percent. METHODOLOGY: Polymerase chain reaction and fluorescence monitoring. ANALYTICAL SENSITIVITY AND SPECIFICITY: 99 percent. LIMITATIONS: Diagnostic errors can occur due to rare sequence variations. F2 gene variants, other than c.*97G>A (U71954B), will not be detected. This test was developed and its performance characteristics determined by [facility]. It has not been cleared or approved by the US Food and Drug Administration. This test was performed in a CLIA certified laboratory and is intended for clinical purposes. Counseling and informed consent are recommended for genetic testing. Consent forms are available online. Performed By: [facility] [address] [place] [address] Stained Glass Installer: Nikita Pantoja MD, PhD CLIA Number: [id number] Performed By: #### U RTPRT #### [address] [id number] Plastic Welding Machine Operator: Gonzalo Cain MD PT PCR SPECIMEN Whole Blood Normal [facility] Comment on above: Performed By: #### U RTPRT #### [address] [address] Plastic Welding Machine Operator: Gonzalo Cain MD Coxsackie A9 Titeron 024 Coxsackie A9 Titer <1:8 Normal <1:8 [facility] Comment on above: Result Comment: (NOT E) INTERPRETIVE INFORMATION: Coxsackie A Serotype 9 Titer Single positive antibody titers of greater than 1:32 may indicate past or current infection. Seroconversion or an increase in titers between acute and convalescent sera of at least fourfold is considered strong evidence of current or recent infection. Performed By: [facility] [address] [place] [address] Stained Glass Installer: Nikita Pantoja MD, PhD CLIA Number: [id number] Performed By: #### A PARVP, AF5MUT, APRTSF, ACOXAB, ACOXA9, APTMUT, AMTHFR, APROTS #### [address] [address] Plastic Welding Machine Operator: Arben Carrington MD #### AT3A, PROSAC, HOCYS, ACARDA, FT4, PROCAC, TSH #### [address] [id number] Plastic Welding Machine Operator: Gonzalo Cain MD MTHFR Gene Mutationon 2023 MTHFR 1286 A>C Mut Negative Normal [facility] Comment on above: Performed By: #### A PARVP, AF5MUT, APRTSF, ACOXAB, ACOXA9, APTMUT, AMTHFR, APROTS #### [facility] [address] [place] [address] Plastic Welding Machine Operator: Arben Carrington MD #### AT3A, PROSAC, HOCYS, ACARDA, FT4, PROCAC, TSH #### [facility] [address] [place] [address] Plastic Welding Machine Operator: Gonzalo Cain MD MTHFR 655C>T Mut Homozygous Normal [facility] Comment on above: Performed By: #### A PARVP, AF5MUT, APRTSF, ACOXAB, ACOXA9, APTMUT, AMTHFR, APROTS #### [facility] [address] [place] [address] Plastic Welding Machine Operator: Arben Carrington MD #### AT3A, PROSAC, HOCYS, ACARDA, FT4, PROCAC, TSH #### [facility] [address] [place], [place] [id number] Plastic Welding Machine Operator: Gonzalo Cain MD MTHFR Interpretation See Note Normal [facility] Comment on above: Result Comment: (NOT E) Indication for testing: Determine genetic contribution to hyperhomocysteinemia. Homozygous MTHFR c.665C>T: Two copies of the MTHFR gene variant c.665C>T (previously designated C677T) were detected; the c.1286A>C (previously designated U1060U) variant was not detected. Homozygosity for the [...] has an effect on cardiovascular disease. The [employer] Practice Guidelines indicate [...] a contributing factor to hyperhomocysteinemia. Variants Tested: c.665C>T(p.Rwr578Mes) and c.1286A>C(p.Acx307Apc). (legacy names C677T and I3570S, respectively). Clinical Sensitivity: Undefined; hyperhomocysteinemia is caused [...] developed and its performance characteristics determined by [facility]. It has not been cleared or approved by the US Food and Drug Administration. This test was performed in a CLIA certified laboratory and is intended for clinical purposes. Counseling and informed consent are recommended for genetic testing. Consent forms are available online. Performed By: [facility] [address] [place] [address] Stained Glass Installer: Nikita Pantoja MD, PhD IA Number: [id number] Performed By: #### A PARVP, AF5MUT, APRTSF, ACOXAB, ACOXA9, APTMUT, AMTHFR, APROTS #### [facility] [address] [place] [address] Plastic Welding Machine Operator: Arben Carrington MD #### AT3A, PROSAC, HOCYS, ACARDA, FT4, PROCAC, TSH #### [place] [address] Plastic Welding Machine Operator: Gonzalo Cain MD MTHFR SPECIMEN Whole Blood Normal [facility] Comment on above: Performed By: #### A PARVP, AF5MUT, APRTSF, ACOXAB, ACOXA9, APTMUT, AMTHFR, APROTS #### [facility] [address] [place] [address] Plastic Welding Machine Operator: Arben Carrington MD #### AT3A, PROSAC, HOCYS, ACARDA, FT4, PROCAC, TSH #### [place] [address] [place] [address] Plastic Welding Machine Operator: Gonzalo Cain MD Parvovirus B19 Panelon 08-10 Parvovirus IgG B19 0.18 IV Normal <=0.90 [facility] Comment on above: Result Comment: (NOT [...] APRTSF, ACOXAB, ACOXA9, APTMUT, AMTHFR, APROTS #### [facility] [address] [place] [address] Plastic Welding Machine Operator: Arben Carrington MD #### AT3A, PROSAC, HOCYS, ACARDA, FT4, PROCAC, TSH #### [place] [address] [place] [address] Plastic Welding Machine Operator: Gonzalo Cain MD Parvovirus IgM B19 0.24 IV Normal <=0.90 [facility] Comment on above: Result Comment: (NOT E) INTERPRETIVE INFORMATION: Parvovirus B19 Antibody, IgM EFFECTIVE 05/21/2023 REFERENCE INTERVAL CHANGE Due to reagent kit flavorer recall, an alternate kit has been validated and implemented by [facility]. The following Reference Interval applies [...] levels of specific IgM antibodies. Performed By: [facility] [address] [place] [address] Stained Glass Installer: Nikita Pantoja MD, PhD CLIA Number: [id number] Performed By: #### A PARVP, AF5MUT, APRTSF, ACOXAB, ACOXA9, APTMUT, AMTHFR, APROTS #### [facility] [address] [place] [address] Plastic Welding Machine Operator: Arben Carrington MD #### AT3A, PROSAC, HOCYS, ACARDA, FT4, PROCAC, TSH #### [place] [address] Plastic Welding Machine Operator: Gonzalo Cain MD Cardiolipin Ab G,A,Mon 08-08 Anticardiolipin IgG 0.7 GPL Normal 0.0-10.0 [facility] Comment on above: Result Comment: Reference Range: <10.0 Negative 10.0-40.0 Equivocal >40.0 Positive Performed By: #### A PARVP, AF5MUT, APRTSF, ACOXAB, ACOXA9, APTMUT, AMTHFR, APROTS #### [facility] [address] [place] [address] Plastic Welding Machine Operator: Arben Carrington MD #### AT3A, PROSAC, HOCYS, ACARDA, FT4, PROCAC, TSH #### [address] [address] Plastic Welding Machine Operator: Gonzalo Cain MD Anticardiolipin IgA 1.9 APL Normal 0.0-14.0 [facility] Comment on above: Result Comment: Reference Range: <14.0 Negative 14.0-20.0 Equivocal >20.0 Positive When results are Equivocal, it is recommended to retest after 4-6 weeks. Performed By: #### A PARVP, AF5MUT, APRTSF, ACOXAB, ACOXA9, APTMUT, AMTHFR, APROTS #### [facility] [address] [place] [address] Plastic Welding Machine Operator: Arben Carrington MD #### AT3A, PROSAC, HOCYS, ACARDA, FT4, PROCAC, TSH #### [address] [address] Plastic Welding Machine Operator: Gonzalo Cain MD Anticardiolipin IgM 1.0 MPL Normal 0.0-10.0 [facility] Comment on above: Result Comment: Reference Range: <10.0 Negative 10.0-40.0 Equivocal >40.0 Positive Performed By: #### A PARVP, AF5MUT, APRTSF, ACOXAB, ACOXA9, APTMUT, AMTHFR, APROTS #### [facility] [address] [place] [address] Plastic Welding Machine Operator: Arben Carrington MD #### AT3A, PROSAC, HOCYS, ACARDA, FT4, PROCAC, TSH #### [address] [address] Plastic Welding Machine Operator: Gonzalo Cain MD Homocysteineon 08-06-2023 Homocysteine 5.4 umol/L Normal <15.0 [facility] Comment on above: Performed By: #### A PARVP, AF5MUT, APRTSF, ACOXAB, ACOXA9, APTMUT, AMTHFR, APROTS #### [facility] [address] [place] [address] Plastic Welding Machine Operator: Arben Carrington MD #### AT3A, PROSAC, HOCYS, ACARDA, FT4, PROCAC, TSH #### [address] [address] Plastic Welding Machine Operator: Gonzalo Cain MD Lupus Anticoagulanton 2023 aPTT Coag (Bld) [Time] 25.4 s Normal 23.0-36.5 [facility] Comment on above: Result Comment: IV Heparin Therapy Range: 66.0-92.0 sec Performed By: #### L UPPRO #### [address] [address] Plastic Welding Machine Operator: Gonzalo Cain MD INR Coag (PPP) [Relative time] 1.0 {INR} Normal [facility] Comment on above: Result Comment: Therapeutic Range: Moderate Anticoagulant Intensity: INR = 2.0-3.0 High Anticoagulant Intensity: INR = 2.5-3.5 Performed By: #### L UPPRO #### [address] [address] Plastic Welding Machine Operator: Gonzalo Cain MD PT Coag (PPP) [Time] 13.0 s Normal 11.7-14.9 [facility] Comment on above: Performed By: #### L UPPRO #### [address] [address] Plastic Welding Machine Operator: Gonzalo Cain MD Protein,Tot,[place] Uron 2 Creatinine [Mass/Vol] 221.0 mg/dL High 28.0-217.0 [facility] Comment on above: Performed By: #### U RTPRT #### [address] [address] Plastic Welding Machine Operator: Gonzalo Cain MD Tot Prot. Conc. 15 mg/dL Normal [facility] Comment on above: Result Comment: No n ormal range established. Performed By: #### U RTPRT #### [address] [id number] Plastic Welding Machine Operator: Gonzalo Cain MD TP/Cre Ratio 0.07 Normal [facility] Comment on above: Performed By: #### U RTPRT #### [address] [id number] Plastic Welding Machine Operator: Gonzalo Cain MD Thyroid Stim. Horm.on 2023 Thyroid Stim. Horm. 1.89 uIU/mL Normal 0.30-5.00 [facility] Comment on above: Performed By: #### A PARVP, AF5MUT, APRTSF, ACOXAB, ACOXA9, APTMUT, AMTHFR, APROTS #### [address] [address] Plastic Welding Machine Operator: Arben Carrington MD #### AT3A, PROSAC, HOCYS, ACARDA, FT4, PROCAC, TSH #### [address] [id number] Plastic Welding Machine Operator: Gonzalo Cain MD Thyroxine, Freeon 08-06-2023 Thyroxine, Free 1.1 ng/dL Normal 0.9-1.7 [facility] Comment on above: Performed By: #### A PARVP, AF5MUT, APRTSF, ACOXAB, ACOXA9, APTMUT, AMTHFR, APROTS #### [facility] [address] [place] [address] Plastic Welding Machine Operator: Arben Carrington MD #### AT3A, PROSAC, HOCYS, ACARDA, FT4, PROCAC, TSH #### [address] [id number] Plastic Welding Machine Operator: Gonzalo Cain MD ANTI CARDIOLIPIN AB IGG IGA IGMon 08-04-2023 NATHAN IgA <2.0 Normal 0-19.9 [facility] Comment on above: Performed By: #### A PARUL, 5124-3, 32533-6, 86637-9, 95874-5 #### [facility] ([id number]) [address], [address] [place] [address] NATHAN IgG <1.6 Normal 0-19.9 [facility] Comment on above: Performed By: #### A PARUL, 5124-3, 43470-2, 98200-6, 08462-6 #### [facility] ([id number]) [address], [address] [place] [address] NATHAN IgM <1.5 Normal 0-19.9 [facility] Comment on above: Performed By: #### A PARUL, 5124-3, 54132-7, 48786-3, 85232-1 #### [facility] ([id number]) [address], [address] [place] [address] Anti cardiolipin AB IgG IgA IgMon 08-04-2023 Cardiolipin IgA IA Qn (S) [facility] Cardiolipin IgG IA Qn (S) [facility] Cardiolipin IgM IA Qn (S) [facility] CMV IgG IA Qnon 08-04-2023 Interpretation and review of laboratory results Abnormal [facility] CYTOMEGALOVIRUS IgG >8.0 High <0.9 [facility] Comment on above: Result Comment: Interpretation-------- <0.9 Negative 0.9 - 1.0 Equivocal >1.0 Positive Performed By: #### A PARUL, 5124-3, 79560-8, 73311-7, 74509-6 #### [facility] ([id number]) [address] [place] [address], [address] [place] [address] CMV IgMon 08-04-2023 CMV IgM IA Ql [facility] Comment on above: Interpretation-------- <0.9 Negative 0.9 - 1.0 Equivocal >1.0 Positive NOTE The following results were obtained with the [employer] ToRC IgM test. Results obtained from other [employer]'s assay methods may not be used interchangeably. CMV IgM IA Qlon 08-04-2023 [facility] CYTOMEGALOVIRUS IgM <0.2 Normal <0.9 [facility] Comment on above: Result Comment: Interpretation-------- <0.9 Negative 0.9 - 1.0 Equivocal >1.0 Positive NOTE The following results were obtained with the [employer] ToRC IgM test. Results obtained from other [employer]'s assay methods may not be used interchangeably. Performed By: #### A CA, 5124-3, 85063-0, 98389-1, 39656-4 #### [facility] ([id number]) [address] [place] [address], [address] [place] [address] Cytomegalovirus antibody, Ig Blaze 08-04-2023 CMV IgG IA Qn High [facility] Comment on above: Interpretation-------- <0.9 Negative 0.9 - 1.0 Equivocal >1.0 Positive Syphilis Total(Unknown Syphi lis Status)on 08-04-2023 T. pallidum IgG+IgM IA Ql (S) [facility] Comment on above: NON REACTIVE No serologic evidence of infection to Treponema pallidum (syphilis). Repeat testing may be considered in patients with suspected acute or primary syphilis in 2 to 4 weeks. T. gondii IgM IA Qlon 2023 [facility] TOXOPLASMA IGM <0.2 Normal <0.9 [facility] Comment on above: Result Comment: Interpretation-------- <0.9 Negative 0.9 - 1.0 Equivocal >1.0 Positive NOTE The following results were obtained with the [employer] IgM test. Results obtained from other [employer]'s assay methods may not be used interchangeably. Performed By: #### A [place], 5124-3, 21410-5, 87202-9, 68891-0 #### [facility] ([id number]) [address] [place] [address] T. pallidum IgG+IgM IA Ql (S )on 08-04-2023 [facility] Syphilis Total <0.2 Normal 0.0-0.8 [facility] Comment on above: Result Comment: NON REACTIVE No serologic evidence of infection to Treponema pallidum (syphilis). Repeat testing may be considered in patients with suspected acute or primary syphilis in 2 to 4 weeks. Performed By: #### [facility] [place], 5124-3, 12868-8, 24626-4, 44745-5 #### [facility] ([id number]) [address] [place] [address], [address] [address] Toxoplasma IgMon 08-04-2023 T. gondii IgM IA Ql A1 NINF - 0.9 A1 [facility] Comment on above: Interpretation-------- <0.9 Negative 0.9 - 1.0 Equivocal >1.0 Positive NOTE The following results were obtained with the [employer] 2200 ToRC IgM test. Results obtained from other [employer]'s assay methods may not be used interchangeably. dRVVT/dRVVT.excess phospholi pid Coag (PPP) [Ratio]on 08-04-2023 DILUTE MADHURI'S VIPER VENOM Negative Normal [facility] Comment on above: Performed By: #### 5 0410-0 #### [facility] ([id number]) [address] [place] [address], [address] [place] [address] dRVVT excess phospholipid Coag Ql (PPP) Negative [facility] Outside Recordson 07-08-2023 Outside Records [id number][facility] Rad - Ultrasound Report [id number][facility]-01-2023 Outside Records [id number]#1.00[facility] Rad - Ultrasound Reporton Rad - Ultrasound Report [id number]#1.00[facility] Coding Summaryon 05-01-2023 [facility] MlmoldaqNTl9rLp+PGhlYWQ+PE1F PNYiP38ukOCivT7qF8EVYHjAVuec ADNGNJvWYzZqinQoLR9cgQOrOQMv IC8+MS5iMRRyEzieoRUll2X2hUR6 P94qsq4bCNyysMG2RGYrDbOsayyq a5hyaHl0UZabUxgnQsQc DQFgnZ27LWD7rF41Ab77mWIigHOl b4tfqNt0AaXhGHAdNMQ6yBmsNPct t6VsJYLoK19gmRSqr7R6 SULhmBinxMHuDkRcdVQ7rD5vFSoe qmdjb1gxwrupMcz4cz33bNOlh2N7 yOG8Y6JzsfN1KWBvyEHj CuiczWWOvY5bsdfeg1cdzafzVoPz MRIeGNw4MVt3LTRhbJygYsVnGO06 AUY4WDXzyaAbO5NoDYUi hJuwEgV1d1X7Ve5TH5ZOEefuR1RD TUFSWTwvdGQ+FU24fh58P5RqBrnx Ngy3BDCdFYA1nMW5qP0q BEWbLAjno7N5bNE7G3MydvChaw5z u3crLKKrNSarQ81aaIIhb8V0ZEKu aJR0VJHhtTraIqSwhQ16 Oyc+CMNivWncr8JtWgbrz6xxi8br xVx5MfgoUQPbcjAniQgoSDP2w6Wb Ef4xHXVkuRI8lSE8mD7q LrKiRgR9XSmqD188FsGlsIJyGbai W63gK0GxaLP+BONpDyo3KOXcjNxq ZH9zF7SzIYMuwnizbAUg zVicPX3gTADwvwolMCThoS1pMEQs Z9e4OpAtApC7BBurB3QaIMUmypyl Zy73wP1nAyRiDnD9PBkg P9ZbslQ3YMQqiDRiKFpoPGR6J22t t0L0QUIoUCVhLVE3lIJ0mH0wsOxa bjogbGVmdDsgdmVydGlj RJdkSWvlV356DXDrsZtgMxFtQIwq ZyBEYXRlOiAgMTAvMjAvMjAyMzwv dGQ+IWVjYFW5vDyzXRNn mURmUBqdZt1uqNqvrXeaXW7mZLHc guxzKUQudV5qZZIsaOGigRfgYL8p QGAavhypx636IpInGHD3 ZLPkkDQcY3QgjK8gByDpSLNtRUKa T8JfhRGfOXgaV638RCodRkT3ZCOy biBoI9AuQAXhsAwyBhE8 m2E2Va0Cb3KdewosI5LtzQDdTnNn NoujISk8K6SiLwkxeYE+QA71NYDs QR55FAt0FVW2mQxtKYgq BHBvM6WbsI1gAgNxEIJkNWDkYbe+ PHRhYmxlIHdpZHRoPScxMDAlJyBz zGhhXF4jRa9eWCPvIFHk sZkxnPPtRyHuy1mvMTJqGUahGQ4x wPtxX0ZcbSV0TOFql3m8Fu83S79o A4RvdOK+ESOvkRW5gSO2 sX7wDzCgKfQ0ZZzhM592RqYusXMf Zepnk2gdk6elwDy9YlF5LRFhznCv sGaeYNT7s0JhLy12I32z MRtpFPHxUWAvSUIjOHUpcYehyx8b jP9pLs0+OKBxcUQ2lVH4nC3aCeMa GkD0FDmgW077AnXgwALf Ulhsf5qiz0ctcMb8JnVyDMJetxJd kZwhYIK7o4AlZm02E3AnpBuqx7Wp Nbn5yr74mASai5F1jYW8 Q6VlJYKrznfxwMTtlAeiOT1fWCUu vulvLMCfdA0hVPYlM1q5GySrBxT0 OQdwP0VvraL3GXHnsWHw AEXvcJXTaP4mgfvoy8qltaiyRmXu HMTgGCb5UQq5PFCylSjxGjTfWYX1 YuB0GZI6vBUddJ5wbHuf wmxjeN2aAvb+VQF4xEGtoKXZEJ8w OjwvdGQ+USAmMTJ3gPdjSUpiIODt aW9wTRAvF6w2CjUtTrK6 FQucR4FliuN9SOHejGPpHIJguWRO zB3vhwklf8lsjyceAnOnFMKmINs9 JFp1EISlyCgwYfAyMAS5 RaO9YXV3kJUpxZ8reBcjnvrswD6b Oyc+GqotyThcHOD4ACd3D6FrPyv9 UORvrJhnHY2xxFEcUPmc Cp4pjTdtwGbdUF6nJYIesbkzc687 YbVqk6giFVBurYLnHIvkBCH7T38r s8B0EHGeCXYaRPM1kGN8 gJ3ycZyxxfbqnIIanPiclcMxqXol ARumCSvoP770ICKmdLklFvKwSOx6 Z0OzRmw2EFSixMdzKB8y zBFuOMskZe2cuXwjpYeqIK9cJMKe ncwkt352UdGty1lhMKKenAWrGXsh GSZ7V00sq6O5YAQhOKTc LTJ3zMH2cK0qbVhvjuzeiAAvlTmn ayYdvHdgZAvnYRytS693PIIbfSqr DsKiwBm2L4RmQdd1XSLp uRfwCE6oyXMnBIypZz4knFtxpPmx FP0kJZBlrgkgl744DeThq6bzTXCd xGSeOLxzEZL8V23ml6X9 UIVcHJKfOFB2eSE7aR9kgDtmftvi sJQjoScmuxUvvQypABtpCBjsZ857 IHRvcDsnPlBhdGllbnQg BXpwPRe6E7LaUscceAI+II03OWLe QJ94gKNesWDgu1phqIi4HzVbRDFm QQZ1vLtcXSnvx5FkJTOx H56idRRbl0S9GHHnlKxpgRQmAwPy lTK9aC4uXPrtougml0pwpxfzVutl x2xeqt39aX45I02nRRjo BXXoUZOtZEIjBYLltAmmin2kqD2n Ii8+RWSxkGP5nFL0jD1sFWRvZcB1 LZraT082RnZgjGEtClfp t7dbo0vjuSw0XcX5QYBkbhAuaFzc NEC8f8IdKb08J40qGJimEVRdWREh ELSqGDCidDrofm9zyR8h Ii8+YYTlgOW2wOA1dT8nAwEtGkM7 SQrlP065YnJehBAsOvqqH04tE5Af dXA+XCYzUct7HAUmoEkc RX9gwOOlNAqqRa6nCDZ3HgQmDcRq KJzvV8OdPWIesdphodakvJZ5ROTj WEXobN21Bo0xaLvfOYGc nBLUzG8hgsqze6pinhdtXtFpZREb LLa1UTa5YQRjyTodVzXvVTI8DkW2 YCL1rNCzhF4pmOfekjoa oJ7rP0ZbHEPoyqzrNv14aO1eHmCm TcW0MCzdQvh+H4mCE5hJBbhrPHOC Z3QgPJ2IXD18LM43qPMb q0R9pGK8K0EbUQDixrvaozmiqGM2 MNUcUBFzeS35nQJzXYmrZe7hi4X4 d027EARgTEUkkR11Nd4w kUqzSRPqkQNLtB4kqadge9ncvcch FwYzSARzPLs8DKq8FNWvhTstKjJp MFW9XxD4OAU3oWNbkE6y gGxadiijzA5sVqg+MDMvMTIvMTk5 NzwvdGQ+AFGrVGC6oRvmZFkdNMDp pY3lQULwK8z6BmPoQkU4 GOuuA2EtBQLbzmkbWl41uP3oVdHt OiW3DJlfC8FbaeR4LBMzbSWqRAfj JYB1C68qk6R7KBMvNEGd OED9uAP9bD4aeOmwmwgfbFJamOvb hmGsxHtzEHnfIDbiY203BZJinGet CxU4TXdySHSeWB44GB60 iNHlb0W1sHU2R8PbYMHrxtjnuuwx uSQ9SAKzWETmdN34uWAtOHxhHw2c e5S5b279GKXmQTUpeX71 Qt7ljXlzJVNjsAEDhH3kvtjxu4wd nhuiQgKvAVVnYNn9XDo6JDYqdLpu TyQzEEA2HuR2UJQ6aRLw nE4chXwbpcpreH0cJyj+RkVNQUxF YW50ZB85wYPup6F8zWR5V6LhDYGg najcwwyjuBI4OPIyVBMk eC41dUHpJNbvAh4ra5F1h528DLOq XKDjcD96Uz0cwTadLIPnbGPBcQ9v twozi1swvaagWpJfOETg ACj4UNa7BGYpnXrtAbKwDJI6WhB9 KYG4dEOeqB2xuYzphoohoN9aTht+ W8I0N1VuYlkoxOP+PC90 NIZnJN23bETdeNWrl2kisEp5LkAn FSHwATG0kUkcWXspk6HcNMYeL07r pXDxl3I0CSCkzNkfgBLv QvXefOS7iM3yDYtolgxdl0ihlmtn Fdwis1swyt86hN54Y06cNFfeHJIp ZJRpHNUuWLEhxUxxdl7f aW5bXv1+FLQykJP1bVN5iV5bClZj BxA9RHxwL147DdUxpLFaSwsks0th c0aruIn1NrIfHUArfwLm hAmwXAN4i7DsOh76F19pBVuiLEPs KLCiEJDbEOSewYkwyl6pgN8gXu0+ HD7ll9iaew18qU42xZY+ CDTeDVG1xOhhERshMWOrpP1cUIzw BgY6XFYrItEteL73fUShMLrgCw2p eFmpfLfyWZ2wBMNtiegt o921GkHol7kzRPKtcOKeJGxaEQS7 N82il6I5XBCjUIWbWTV1zRO6uJ8x bGlnbjogbGVmdDsgdmVy gTckSIinDKhyK039CUTbwGiqGvFn zOAbF9qpmtECTE6gIsmsuXN+PHRk FUT2qCvmZTxsRISvsK5u MJPrW6r1MnHaSjX5GRiqK1BoeqF4 LIZpwPTaIOEadZGAtQ2xmrucq3co qwovAtSpMNRwRFz0EEo8 ONVaaZtyTqDaLWZ4RlP5RMV8hCJm oR2aeYphegnnfB5sTff+RklOOjwv dGQ+MDXeUAH4uFnrNZxx BFJwwG8rVJNlQ8g7NmWxAjK9MDjo M0YyctI2BABtjQYdYYZkjERQgP3j zltbh6zorcxcYuVdZPOv YVx9NUr0ZIEwyFfsCyLbTDK0SgS7 HVQ4lGUirF9yeYmghcpwiA7qHpt+ TVJOOjwvdGQ+PHRkIHN0 sQasCPtjORDxvK2mFLOhK2p1KaCi ImU8HSxgE2HqagS9FODvgJGoHQZu zCPRdL0tkfqms9gbcvcv BlDiNSLvNBk2YHf2YOSiiAisIlCm GRX8ZbE4MEE5nKEyqQ3idGfyltlq gH8zEoe+SMF6SJS8OS46 RX97Q4TyWqbfwBRajTX+PHRhYmxl AWriFODnEFrzEXJiCgHwnPsiZT4s Wt8kDRVuCYZukLkihIVc OiB (more content not included)... [facility] Coding Summary HTMLBase 64 VtvoqmcsDDq6hPm+PGhlYWQ+PE1F NFEzM89fqRMmuU7pE9FBKFwJMork KDVIQEcIMlZgdgDqUA5vuKTfAVKy IC8+XY4wKDGsIpubqLSwe6I4bUF6 H64aim8pZWrfaSQ4NITfCiYfwann j8wbnOk9NZheNmqbFvGz UCRnlD01ODZ9aC32Dd87dNFmnDCy x3dyyIl1BqWdKSEaPKM0fIteJRks b9WvUALxK18lrKXgj4G4 MBLlfSqjfOJaRcGnnSU3dU7eQWve roavb4gtlvvgNua0gz27sBCgx7V7 wII1S1NffuJ7CYVgtHEw NijpbUTIcA8ihkiig2kddiqfUhTs VGAdDZt1LUl6IXYlyCdcIsSzIY44 BCD1OIPikeYiT2LkSYOl xEjnRdQ2p6H1Nh7AG4HVZhpeO7LR TUFSWTwvdGQ+CX41fv44X2NjFmny Bpd5LQGyNFX0aOM2wI2j UVHpUGqjw4B2sVD4I5HxauTsca7r e5dwSTCfLNmaV43gdJUsk8X2GUQg yXX8GZRklKkkVkRhnW09 Oyc+RFMujJyou5JsWkpos7tpx8tv jHv4WqgoUZLptfAqnWdtVRY4t4Pe Gx1mLCKjiWE6qHZ3iK6f PlZwBrE1RQwcF340AlAjoOWmYqwn C54zK5TgbJB+ONJuZof0NXVysRuz LS7rE4AhEQErcvphrERf lKpdFF3cYKTyhepkGOZeeS8hICEn P5f2CqTbKiA9SAtqQ6IvUDEufoyi Ix81fZ2dMbWbDbU1RPpu K2KpupF7TANhcVHhBMxsELI3J22h h9H8KHNgLBJzFWL4nQG6bF0siUoz bjogbGVmdDsgdmVydGlj AYwbRRqpD265CIJluEorXxLtFBvf ZyBEYXRlOiAgMTAvMjAvMjAyMzwv dGQ+VODlOND1cKmtYZMg tIIpZVqrYe1mtIdesYhwNJ8xRRSd hgujPNIhzL3cAMCqqJHasPfgVC1l MRIwijngm708RkJzXVI3 KDUahHKgH3ZkcL6xDqQzPWHuSLYq O8QfnOQcXUubB103LLzxRuD9IOLq vnPoY5YjKGVkmZmeNmC2 d2Q3Tu1Gt8TegutnZ4SjpENkMrYp LifoLCk3C3VrOipmuYB+PG97BSJg EA86NSs3WRG0cKbjCMwv JAAsC4HqpL9jWzKsUXYfPTJsVnj+ PHRhYmxlIHdpZHRoPScxMDAlJyBz hOhcAC0xBw8eXMHgWIOh dMuejBSzPuBfo6xjTEUmTIqgZD5l xAwrI4QbfDX8ZOVos4m8Qz95N62p C5KbyJN+JZCirIA5cRE2 sT1tLuNmIhI7FSahJ429VqRemPUl Skrkv6xfm8kuzJa2BpA2ZTCklaGz fCheARP8o8TsMy69K61k EPsqYWRkZNHnUPWdTQPziTaihy1q xH8ePi1+QZAypOH3dCQ7lL9jPeRg HeO6LJjjV948WzXmzUIv Dzrvp1xhp7xilCc2LiVqICLejnQm uRlyIUE0u6EwRm39D7MvfNcsh5Uw Nhc6iu56kSRwa5T6sQK7 O1XdSDDagrfopUGhiRwgNA4cCXXz eoqrIKFppG4eKAOsT0p6LhZiPtM1 TBlzZ9BcysZ3TVBkrFCy SFCtwJCPrZ5okspbx2oojkmrOoIe ZXLpKAe4JRy3XHCujRxoAaJgGBO1 JtN5JVU2sZTquL0vcWwy cqimnU7xTrw+DAG7aEAqdNJXHA6n OjwvdGQ+NKVvVIH9nQjgHVkeIYBu bO5oAGZmQ7g1OeRfOeW1 UBiqM9UlixO8EKRimVJhXXSnoHHC lR5wxoulv7jjdebkKzZhOZCkRSl8 OWp7PPNvpCicSyTrSSG2 PiZ1ICB2qZSofA0vzYvvsdsuxA3q Oyc+VjbyxXjkZIX0AHc7E8GjBmy1 ISRicFliHC3ebWMmOSud Ie0tiOupnUbpEZ1gEIRyelapi413 UmBps0gsGBVbxOHpCHfkCDD6D27r v1G1CYOqPWXjJAG5vQK9 uB9dzUrzbmduiAUlaPmjaxVzfZbt GYoxYEtyM696PILvxMloLuMgYAd9 B1OvNgh9KFZctAduUC9h eVOkBYepNc1bxPipeGhdUG8lAPLv ofdqr792FvZoh5lmAYHvoEZmIKov HIS5O29le7T5SICaQBQj YOI4uTB3bD0htXdueeaxvSQumIgt egKvwBvhZWaiQKrkS633PHFvyMxe CvOwdWt6J6EvUjp1KPFp dCbxXQ2eaODbFGrtFp8soYvewFtp HS6xJAFljbmwl695NhYfq3agEGQt hCRsYOmkZML4G79ji5H6 IEXeUHTpMWQ3mUP8jR5efIvtbmfb oOXthFykojVwnPkrZQrnCHadO990 IHRvcDsnPlBhdGllbnQg HYrvMVy7Q5WuSogytPQ+BD25MIJz YB42nWOsxZVjm7lmrOk5PwYpHXNd NFL4rNrnIAlbm1WcZNFq Q83liWTrw2S0GAYfwUsdvONoGsKu kXZ4nT6zBGloiiovn2disazxYzpd w3ysrd71sE80N18oATgi SKOlKLVvEJOoERDywXjjqt5ssP8n Ii8+WCYwvPB1tPE1xP5mFEBuAzK2 LZbgM175ViTvzAMoNnja k3dwr2xmbUc0WyS1WGZoxlXgvSia FWE0y6IiMl40B75uZMclKRRfAZIv FIApGWBemSugnj0geC8p Ii8+ZHHbsKX2kJH0zB9qQhVrVuC5 MHaxX323FdVxiSIwQrtvA39aV3Lf dXA+VGPgMih4KGYvsTog PI6ymIGjRRlaEj6oONM8UsMiRxOe QDpqC0SxGPIwmualuqklmKE2WOFr CPJhfO67Gl2wpQbuENIw zQSEfX3medpbk2dvmclzCrOpBDZd IXd7KXn7ROFncDvtEbThUWQ5OlW6 BRJ4bMMscI4bpZruavrt kG2bI0GpEWEdebuaSh96tG4wGtFn MnJ4PDviSia+W3kPR8kANfqyVHFL V2YrCA0XAA29RR81aBCv i2S1zFY7S7LbPEGcylcsfsawbQJ5 HJDsOBAraE04lUCzMLnrHx9uq8T4 c546KRVaFFPkbF03Gb4f uJhjXJOxjATArY4wlibfy8kzzklg AkPkNIOqQQh0ZUw2BHOyzTnsPiBn VSJ7SqM5YVN9jUHjkJ9h xPqtmfchmZ3uUbw+MDMvMTIvMTk5 NzwvdGQ+XTNwFXP6iXehCErdRDXf fM9tJGKiK3o2XgQpQqD1 XVseT5BhIRYytdyhHb18tF4gAyMy HyQ3OQveE5OrxoB0AQBwdJIjTTep EWG1A89bl7I8QVXhOCBc KAN7eQW6kZ8cjImsdywztCCmoPgx cySwdXqiAAciXCprW677WSEqiCvl XfJ4WDxtMFXpJE73MC10 uVMkv3W1kJP6C3UfGYAzkkjhzpaf jOU9CHRwETFdhS16wQNvPCpzLz1x l8X5q781TPCpOVJbaM42 Bd2fwPkrNMBsrMICdE5uytxnd2qg alszNmHdRAFtZOt7OLj6IARlwPvp UzHvHJB5KzN8JYK8fYUk eB1zuClyzvssbG3wFdv+RkVNQUxF VO87SL40rBWrw9X3lRK5S7FuXPRd wggvpoqmqQJ8YKKsZKSa nS61iCRwXGieUl5wm2D6r160YIMr SJZkhC70Kq3agRuhLLAmiCLQdT8n irrte0qsshcmSsMsHYJx VXm4ZHg6LIOfxAefJpAyPCI5KuQ3 HPT6oVVkrC6mbHouwygxfP6lGka+ H4N1V0LzOzuskEA+PC90 CJPjXV18eJUjnHIxh5axiJb6AzFx MBOtFSI0yAkpECjde5NlNTXuT34u rCTuh4I2RFOymQeqmUGl VmWgrUF8jR3cWUckjtbiv2tmqjcr Ebrbn5xjea18pN44Z61kJBhcQRSw VLNnRAPkMGGqzUifio1d xA6zLy6+WMXovKV0aHR4kZ9eYzHy NoX4GDcaZ122JwJldJYxYrola1nk r5usaRe7WpQfWLRskvIj uScbMZE1f8ZwGq66Q56wTIdkONAo HLItDIVaRIAcyUprxm9rmT5eBn8+ BP9nb0gfvj57wT26oJQ+ KHOdLCC0lLpjAWqwCGHzvM1vCOqc LjV9XYFqNbZzwG85yZGjQRbjAl0q oDhqxHgzKO5kABNifeod s124MwPsc0uvIZSymLMgXWwqAUP2 N79aj0O1FXAaKZFvODO9yUP4oZ6l bGlnbjogbGVmdDsgdmVy sIcdQZjgUScfM978BEEgfOgyClAp tZSsY7rsxkJNGI8gAmcrgEK+PHRk EPS0xAapKSwqTCPjfZ0s SGNqF5k1KoYrEhT1FTvzB6BcirA5 ACZtoRDjOWLqwYKJkR3azfzes5cy hmxpFdBmZMHgCDd9MDr9 YPEogFwdEeCcUWK7JyR0EDB1uTUl iA6ibHgdokvzwL1jKfk+RklOOjwv dGQ+SQRyFYF0lSdyBCqr ICOdoR4iUCWgL5n4WnMoYdJ0ULpe M3UmulW7NXQfwPFyRDZutROLyV5w tuknm8lcaaxiNrQeKQKu AIy6UNu2ZCZbjQgsCxPjFDH8WyO7 MHK4jGLruR4pzDzvablbtK5uUbl+ TVJOOjwvdGQ+PHRkIHN0 tYajFKfiRLFfuG1nHHNkA3w3CrYd EdI4IMyzX6DqlfO5AZBdhPVqOJZn lCUYrB8iducta2zlljhd YcGfDBTjLUa2SDm7MRCatJtsToYy ZAP5YkK7UYO9yUCofN3iyWrvwcwt wW3jNvh+STZ5RNO8BA82 ST65V2FaRsbnvSSikKA+PHRhYmxl VQghXDZcABxaUQCyQhNcpExuZS3p Ue5nWAHsKNWquMrymYLa OiB (more content not included)... [facility] Reminder Messageson 04-30-20 23 Reminder Messages - From: DINORAH GILBERT DO To: [facility] Clinical Pool ([facility]); Sent: 04/30/2023 07:53:33 EDT ! Show up: 04/30/2023 07:53:33 EDT Subject: Results Follow Up Actions: Call the ordering provider with results Due Date/Time: 05/01/2023 07:53:00 EDT Reminder Comments: looks good. no problems Results: Date Result Type Result Name 04/29/2023 13:59 Radiology US Thyroid From: Sindy Cormier ([facility] Clinical Pool ([facility])) To: DINORAH GILBERT DO; Sent: 04/30/2023 10:55:59 EDT Show up: 04/30/2023 10:55:00 EDT Subject: RE: Results Follow Up notified patient, patient stated she recently found out she is and that explains some of her symptoms as she had issues during her first . She is under care of her LANDMAN and she will continue to follow up with the ENT referral that was placed. I will fax the US to [facility] for their records. From: DINORAH GILBERT DO To: [facility] Clinical Pool ([facility]); Sent: 04/30/2023 11:51:41 EDT Show up: 04/30/2023 11:51:00 EDT Subject: RE: Results Follow Up noted Normal [facility] US Thyroidon 04-29-2023 US Thyroid CLINICAL HISTORY: Hi story of nodules. COMPARISON: None available. TECHNIQUE: Ultrasound of the thyroid was performed with a regional survey. Reference: ACR Thyroid, Imaging Recording and Data System (TI-RADS): White paper of the ACR TI-RADS committee. Journal of the [employer]: Volume 14, issue 5, [...] Percy Hopkins MD 04/29/23 1:59 pm Technologist: [facility] Coding Summaryon 01-10-2023 Coding Summary HTMLBase 64 ZnmbkjrjGNz7eQi+PGhlYWQ+PE1F RQXjZ39ntHOzuK2eV4PSTGlEZpgm PWLOLPnJSiLrtfIjVM3igXZmZTFq IC8+WP8vYAZoGrbzcDSvv4Z0lAH9 P45cmm8iNWmiiTS2GNCdDcNcaieq a4pcrGh4LOqbEnblGwWp CWNnhH65VLU8xI33Qf73zRFdaMZd x9ubsVx2LtDcPIMcIBI7jEqeLBlc x5CfVMYxD11myKSdd8G3 QBTkyRigpALyVhUxrSM4fC0qCDkw txgrj4aglagaDmz2id28fLYuq8F4 gNY1R4CnhyG3FDMsiQKr FavxrULBsH6hhqxqs0tsrijhTbNi ZJTnPKh7JWe7XRCigGojYjYqZQ15 LDC8NIJgtgZoT4TeVZCt kNkuEpW2e0S0Ms5LB7UNDikmW1CD TUFSWTwvdGQ+NC66jb20I6OdAtxl Akx7CFElJZX9vSG0iR0n BCDaZVlga7O8qUQ4N2XbowRfbl6m i7plBYBjQUrwD32emRRsb1R4NBYc oKB4PRXocCmeTkCfhH22 Oyc+FRUfbNadc0KiFvpxv6zds3zr qWj3DinzAQUrvxQbfHsnOAV3h0Pk Sw2nQENfpVH5yFL4rN9j TbCmUvE9CWxxF206EmTztIRuEcin G86jB2TreOJ+HDXeFcq2VAHkwWvp NT0rT6AzGNYyjywoyBJt zYdlVV1mPDSawarcATDruC6nUUJl F9z2ZwLcVkI6VZhxN0ZvZZCmivfz Gt16vZ0rBkInViG1SXuz F8HvaxT4ZORngAGnJDuqOZN8Z23b d3Z4LYDzKXJxTTE8sSD1bC3npYha bjogbGVmdDsgdmVydGlj NEbsXRenF363ZYMatMyjXwGlJZrl ZyBEYXRlOiAgMDcvMDEvMjAyMzwv dGQ+MWMbFDQ4kQmsBPQg cNScOAulUt9flUmxaLvaBY1xXLVo acfjVCGopT3eKFBitPIexPduJY1g EPYfqidda455LlFvEEE0 NNVgzTYzZ2IxcI5uCrAqFGTfDSSj L8PbtMPiTLbdF085ERfwRdX6IJZm mkTgH5LvRSJklCniKkX2 o3R9Qz5Sx4MxdrmpE5LsuTZxFgJu NxtsCDf5H7GhAyfraML+SN96FKBf ZJ02ORy8DYB4aQjcVVor ZVEzE8SttR5vJlShCBXlRWGoBso+ PHRhYmxlIHdpZHRoPScxMDAlJyBz fSzrZE7rJz5bGEOoDDSe nKndoLTcElPnz2jpDRPpZUhfOH4v xKxsH3RycJC0HKDml0c1Ph63D33g E9XrmJP+ONTxxNW3yPD5 wR5uGrXvYxM1BHpfE324RjAckNLo Cpeyj2guy2zwsWr3WmE1XOWseaIw wWbrWQC6d6WsOb91A06q BJfuLBOoAWLvGWJxGBCnfGhzgt3m uM0cPu8+YYFgpBX3vBP6dV7eDuNt ZaU2RDfrE646JfVffBUg Bupet8quz0psdPw7CcMwKQElcbEv hSczYCB9k6YuJk62N4IvgHjyr3Sf Gfg3sr53gMGwm3D7jSD9 P8AeJDOltxvwlLLvvUiaTU1mMBZk munaOTVftB0mDOZuR2w9YqViHiC4 HFnjZ4IkcnZ8FPLwcJOf IRAduSAPaA4smkgxu8vzjdntZxMg DYXxSMt2ZGt8ANIxxRhaAvZqPRJ5 LdZ6WTN0xBSngZ1mhMfa rkzmzZ1sDoa+JVN9lGTtfYVVZZ3d OjwvdGQ+MLCpYCR1aGbzUJroRHOr lQ4rJPXjE0b2AbAvTqU0 WSvfL9LnnnN1TKOwsSYcMRKkqLDO cZ0dfgiep3taoplvPjVzPLQfMLn5 ELg8RDHklQikDdGxVFW6 FbE2GTS2xVTgnJ0zgJhcibfzfB7i Oyc+HzqbfVylQYI8DVl9C4XbXsg3 QDFndNijTY1thMNlCLrv Cl5pnNjokCuwLH5rDTEbupqov911 EnGss9iqDXLweTWiSBguPEW1P06m p0S9SNRbPFRwCOW8tWE7 rN2ebRnmavomdKYonBmbohBggSxg KHbzTVurO363EBLtnFxlVlKzCDf1 C5KrMsu0DYUaqDbnOI1o jNMiEVxuKn1uwXfraXgpJW0cHBZl nalqq028FdZko3aqBFNwuWThLQau PZR3Q13oo2E6MIXmGOLw DCR8uAH4aC9ubOzccveksINbbLur isLsuUqfHYcaYKyqR425UXOsgXuv FtMyrHf9M3HfMkt0LGGl jIybCY5nxLCoEDsiHe5kwDjgoGkq CG1nAHBwhiwhp045YtGei9vyQPOr wSGmDUsbSCV8L27yv4C1 LPNpUNWaKHL8lDJ9iO6dxWddtyrq pBFkjVgbdgTijCegTVyuUNpnP083 IHRvcDsnPlBhdGllbnQg EFztZYa3D6LqKeeqdOV+HL18ONAi GW80xXXigTRzc8cwsSe0BqSeWAXk OMC9tMvmWVowg9MkRSQd O13rcNXzg2O7EQYptTjpxAEsHfIx eNJ3yH0wGJvjrnzxx5rueaqyPgke o5wtwc18hQ83K82yQGuz SDIxOZDxPBTwWMEbmKsdfq0vvS5a Ii8+QGMjlIF0nCM3fP7cBNIvCfV0 NMopG472ZzOyaPVkQacg q1gss0paqUe5VgR0FSTrltByrUuk ROO9x0GrZf96D94jXKkrJGGgUFVw WJMeKMShiEacjo5uzF0m Ii8+VMIboZZ2aSI2vH4kTyHuVwL2 GOsaX429CpUsyVTuJhxsK81kR7Qy dXA+WRXeVzo1NXYgbHbb VK6xyBSkJIvkMh6dYVQ2VfKgQeAy QWimJ2EyRLUtpomkprqynFJ5DSSr TFVrxP78Fk0lvOntRFCf dHCFqK3nmxhej4dzknbbXgEzPRFh PIq8VPe4WAAcfVxaAlOpYZV8WhL2 HRN4oDNubT6irGpwnlhi rE2nM0LcWDVlyfcdBc50sU9sLjKn XbM3FKwoLlh+R5iDU0zCVxhhNOIF B9KqNZ1VBZ36DM83cHYo n4V9mJC9H4FiAOGqcpvapozisPJ6 GMZrTUNgjV33tLGjMGnbMu4mc9W5 z633ACFmHNRlmQ08Pp0h sJqlCSLifAUUnL0yzqktn5vzcplk GvMvCYDtHSe4TBy2WYFbsEuiFjUp OYZ4OrG6GEH3uCOibW2r rGvcedrtmX3nJro+MDMvMTIvMTk5 NzwvdGQ+OZInHII4kOxuVWvtDGLp qH5aVQYbX2w5DkRiFsB9 RVglG2BoMNBghmtiVc16vV0nGlJz FeW5UTtjS2GxqfJ8ICNmbDGaISjq JIM4I97de9T8ZNQzYKRp DOF7gMX5yJ7lsAihktzaiIEllTxj ylMihTzlWLyeIZysI705VXFhrJoo IyR3PEzdHJMcPG97FY66 sIYux5A2uNH7G9FpBXBibfgakemt gMA2ZXGkUCRroZ22dZWuGLdlIr8o g2U6r652GSSnQMRaaP54 Qa1fuMpfJUFdhDLRdE7zfycrj2ql gxdkGzGaIFOzMOy2DFe0HAYsiLjl UeHqHXB9AcJ0GFY7eROn lZ7rtXpcxoytlB0oJvh+RkVNQUxF RK43KT12sZZpo4P0yKY4X8VpOQWb aifhtxrixJK0HHHvGUCg nH70fFFnFVwiXm8nw3S1m304KWPn HFFamS83Gb1npBjnOLTbeLUIkP6w fuquv3fnpmfyJeAzMYIg YSq1HZa3UKAauElpYgZhNOP4QdU2 FKE0wBScoH6wnZjlgbbwvU4pEis+ V0I9S7JrGzklpWT+PC90 PHDjEZ90zQGiqAHzz9funUp1GwZl XDOqKJW9kFcnRQyer8MnRQMzL49r zMTmd2P2EIJxzEdmsYOz NhZiaWW2dL2lZSjkmrgiq1npjgon Xkdyd7aezw76kI55U49kLYtxLATj EUTuSEVePXLmfIqssi0h mB8wLf6+OBIovDN0yHT0bW5iCcGr HkI4CNgzU260EjZqmPZdJnvfu6hp d9rplGh2PgIfRUIdtzPb eTfySLG8a4UvXx53Q33wSSpsKZOl OUJyTACkAIOcgGhvqc4pyA4aRa8+ KW4yi8oxck66xR06kOL+ UDMfURS4eHpdUIkbGZYmvE3sVXna IdV2PCDtCdTtbJ73kCOzPGfbJd1s wYiudTtmSZ5rQBZttbfo e506JzJqr2nxXREmiUTwJJwcLAI0 E17qe9W8DGUvCRXaSHB0iBP7xT6n bGlnbjogbGVmdDsgdmVy tYllRKbtKRduM869PBTbuNlsIvUu yMZfF8qemkIUEN7bLnwknHU+PHRk SAC9jCxaYEzcTYRmrT6i AIDwB6i7FiMmOoQ1IJslE0YnkjA4 EAEviWWmTMBkqTQByI6dukgix3ej qfphDlTtDCAeOJb7SSr5 QIZfnSkbJgGfLNY0VhV9NVH4zGDs iD4zjVvsrxfvrG8uQvw+RklOOjwv dGQ+PFLmYYP1eSqzXDvw MYLdtX1pIDEtE4m6EoRqFsH5TVgj L2SevmX2HXOntPZnPZScsIGWhG5z adouj1lidckzJvFxHQJz OTj6HXw5RUAjoRhsBdIcGXX5VrS8 XDQ0oDHekX7leVzloqdehK1zZse+ TVJOOjwvdGQ+PHRkIHN0 hUpdFUmkORWncR9sWHRzR5d9NrKn EgZ4KYfwK5ZbbaS6QWDsmDLlQZNa gPPSoN5qotmdz3csbxtt KtDyJNRbLLv6CJu2YURlwKmvVhAm KCR5ZoG3JBY5cVYlbE9erCidxjbv oV8bZoi+UDR8PIH7VF22 PS38K7NbCrqzaJQgyZD+PHRhYmxl QWokMBQtYFuwXWKuRnTkiEshMW2c Av6wDYImBZWcpVjooZHh OiB (more content not included)... Normal [facility] ED Clinical Summaryon 2022 ED Clinical Summary [facility] ? Urgent Care [address] [place], [place] [id number] Clinical Summary PERSON INFORMATION Name: BRAULIO CHAKRABORTY Age: 27 Years Sex: FEMALE : 1995 MRN: Acct#: Visit Reason: UC - Eye Redness; BILATERAL EYE DRAINAGE Arrival: 01/05/2023 09:44:09 Discharge: 01/05/2023 10:25:00 LOS: 000 00:41 Check In: 01/05/2023 09:44:09 Checkout: 01/05/2023 10:25:00 Address: [address] [place] [address] [address] [facility] [address] PCP: Alfonzo Addison MD PROVIDER INFORMATION Provider Role Assigned Unassigned Kalpana Stover [employer] ANALYST Nurse 01/05/2023 09:53:37 Cuong Cárdenas ED PA [...] Follow-Up: With: Address: When: Alfonzo Addison MD [address] [place] [place] [address] Comments: Diagnosis is bilateral conjunctivitis, [...] verbalizes understanding of instructions given Comment: Normal [facility] ED Patient Summaryon 023 ED Patient Summary [facility] ? Urgent Care [address] [place] [id number] PATIENT DISCHARGE INSTRUCTIONS Patient Information Name: BRAULIO CHAKRABORTY Age: 27 Years Date of : 1995 Reason For Visit: UC - Eye Redness; BILATERAL EYE DRAINAGE Arrival Time: 01/05/2023 09:44:09 Primary Care Physician: Alfonzo Addison MD Attending Physician: Cuong Cárdenas Comment: Patient Education With: Address: When: Alfonzo Addison MD [address] [place] [address] Comments: Diagnosis is bilateral conjunctivitis, [...] diet. TENORIO (more content not included)... Normal [facility] Recordon 023 Urgent Care Record [facility] ? Urgent Care [address] [place] [address] PATIENT DISCHARGE INSTRUCTIONS Patient Information Name: BRAULIO [...] classified elsewhere (B96.89) UC - Eye Redness ([id number]) If you received any narcotics, sedation, or [...] documents With: Address: When: Alfonzo Addison MD [address] [place] [address]. [place] [id number] Comments: Diagnosis is bilateral conjunctivitis, this is [...] in the [facility] were for an urgent problem and are not intended as complete care. It is important for you to follow up with a doctor, nurse practitioner, or physician?s hr assistant for ongoing care. If your symptoms [...] so we can reach you if necessary. [facility] has provided you with a complete list of medications post discharge. Please inform your intelligence officer basic/provider of your visit and for further instruction on these medications. Any specific questions regarding your chronic medications and dosages should be discussed with your primary care physician(s) and/or pharmacist. New Medications [facility], [address] [place], [place] [id number], [phone] ciprofloxacin ophthalmic (ciprofloxacin 0.3% ophthalmic solution) 2 [...] kg B (more content not included)... Normal [facility] Coding Summaryon 09-15-2022 Coding Summary HTMLBase 64 ZnojzahuOKp9tCd+PGhlYWQ+PE1F WBOhR82bsUQozE6NJ1gOGB5NIBIM ZGBLSR5ZSF0czRV1FYubN7AagjPj KastbLDrQE33YQh4MLB7tVzcMAci fT1ucTPhE2n8FaWnAC01tE48HPaa PKJsUkS5CfXgxnxasFIl I8wxMrUocHLgFew+PHRhYmxlIHdp PBBhSMezCQEgRsCnnJumFU3sXx8m ZGVyLWNvbGxhcHNlOiBj h8qyNTDxISxpOM8csUfsP2QtlZK9 QFKzb0x3Fi70aVH+PYOtBIY0nLlj KIbnr380ZlIgw5yfCXB3 aPNoMXgfJAS0L61zp8Y1JPQuYVMz GCK0nBN1vB8urGgyiuyfQ9MreEBt XvF5HMO0nXQorN4ekHnw jicdpF1tLtv+L91QTG6KASOJAT8D Jfo7P8HqWqthjCA+XI57LJLiEZ78 eGPqsJHmf1parYj7PlHe TGTcGIK8dRnpTKhpr0DbMZRlY62x sHXdk6L8KXSshMoorTDwOvJnxSO2 cW9vTGdndbgol2afgjwt Avrmw7rfzx62tF04S30aIOwbOFKu OLC9IPMxXYTnaKdbfr7mzK5yZe6+ NOsdm7ugn5jasUv8HoCa GXLzzqEvpYcfFIO0d2QyPv71U8Ku wFpqk1UmVsm3it27kSRxi4H1sPK1 XMsiTDDpcG3gCXhfQeV8 GXOjKyFhgU39yFHaALahKu0sjDrp rIbpLG3oWHLpztgvKGWheH3aXUPl hKXpaQppBA1sRHPhjrxo f278EyPsCBY4BJItzLDvA7PsiM4b OsIfLCXuADBxK9AciAAlLFycS871 XIzoPjK1SVYjdcCeI5Lh IEOzuHiaYeC7h4F0Wc8Tl7Niagjv TBQ5GOmqVARcPzR3NiBaHeG9U0Ei Jkj7OPAzaZpqHE8iR4Oe UVBgiohdbnftpNJ4TCEcXOIqaZ56 pFVxGSjkWu1mz9D5b063MVLhHZBp jP19Eu9oiSgjSLWepKEH tF7qkvdhi6cuqbkfWwQuRPUuUAx3 NIa8CWKcsJthWuNfDPP1TeG3LZE1 hYQheS2prKfwgyxzbV1j Oyc+L19ipP2yIFZ0KJJ6kyciHNAl rdRmYI14PU53Q9HvZxcakPHnzHK+ BUXklvRkaCodIO0eTuWc g2lbx1YlRPwqG0YsURBwIVcrIiy6 KWBpEJD1wIO8aJ1fCKOcVMesb4C7 fSZ4V3IlfrCbqf6uq9aw CCEpADhyD79qaUMpn6D5YVMacIQ9 EVMtpNxpGeGcyE49Sig+PGNvbGdy f6RxUckhn1itm9rtfAi2 EgZsGWLzluNreGehIVN9n4WmMp67 Y03sEAlhHVXbGHKtLJEtZGVozHwg om6iwD4yAc3+PGNvbCB3 iCB7qK0aLZIaWuQ8WPlkP267FaEg aHWtBruiw9wug9bmkId9DcBhCZUl sfUcnAkhCKM6w7ReOm94 M73jXUwiBHCgVRJcVHWtGOAinRfp fu3mkG9lCu4+JZ3gm6esfz79yJ68 dHI+HXNbBKX2kFdsHMzv GVOulM1xWZbgDjD8URGjTmHrbT67 yBElXEpeYh3jwTwllOwjNV7eMGRq lyafe561MrLtw5rpUGNc pSYlPJbqAJU0Y90dd1I5ZVAnZIDk VAV9oCQ2cD5oqExfriwpvQCfoRsx eaGgqTtiGMzcRQorL597 IHRvcDsnPlBhdGllbnQgTmFtZTo8 W7WiNcd8VZAkuTyiEE2dbKOxHKyj Vn1ffZwqtExfAM3bSVRo avyhw166RzTmj1hwDEAztTInGLot JDV1R53kd2D2JKJjLXZyXCN2kST9 aL8tpYerqwpbiHIayXtc qsEnfBjyGWxsEMqhG518QNKfzYyx KoYbrmUiMZTvvDH9SJ15NZ81xYWr c0W4aSA1S7NaSZYgbudd zikzjTD3IRZqYVVmdA67Lp5zjNmi Ur3qVQGxMSG2ZTAkoVPcH0UukE7u QbXbQBPhNCCtF7VxzVVu GAfzD714EOdrJbD4IMScpdEdX0Vw OQDuvEenOwJ8y6Q5Ao4VR8I9WM58 KR74yQLtr6H6xRM4T7Lc LLOiixdysmidfOF6BRDsCATivF79 Hg0jdCptLn1zNCUxPKT7VUMqoTLr U5OtqN1pFuIdQMQrJRKs Z5BqjQEfZNviE319JWcbHxL1LPYu psXtR1VaULCsjIqeUbO2g4N8Ks7W RBp8WW75XW61aNFjh6F1 oVW8S6BtFUKhxybbdkjpkJH0IMYh MJTcqE18Wl9ftEjpWu1lSXMuMVP9 HDAmvFPkN2UmyB4yKeYy TWIwSICkX5EkeKFrMZalZ044DWut ZaD3EEYnvwYsQ9GcWLNnuIowNyE7 m3G3Kc9NDQJiAG10GIQ8 mXL7VD23ME02Y7FoJkksfZHizVR+ PHRhYmxlIHdpZHRoPScxMDAlJyBz fTttWY2lEp5gTUYkVZVj wZvrzHQpDuQbk8baMJBrKQqbQK8q bSmiC9MzyIQ8QOBkt8p1Fs42N65f V3KvoNP+AWIouEB7fNZ5 qN6dBbOdXaZ2IIipD946KbTyvPUf Aocas4kur3lqzPg3RyM0ZFIuxxNs hVcqXCY1t3DpEq65A04h SOyhWGVaPKEgLSCnHCBtqIfmxd5b mU4bMs7+EAKkkDR4lDL7vB6pHhUb TfR7DWoeA312HqYliHQk Wwgoq4rdj3zjoEs6FbUkYONpflYd fMcwBTT1r8JhZw93F2WesGxgf1Gf Gya3hu88iPToz2C9uFL9 L2PsKXVprkautXKwxDgoHS7xVZHc glnwIZAuwE4mBYZsW4w9FcVzDlP5 JYplM7LlftH6OODwxCKu YYenMYE2V36ez9F2VVWiTOUqPHA5 jIM2jT9rwEhnuwvtuEWwiAdwztTi rDmcSOipZRwrT197VRMk oHouSHUmlD0jRHJfhHNpyRrvLU2j NTBpbjsnPldJTEtJTlMsIFBBSUdF IEFOTjwvdGQ+PHRkIHN0 pEaySTczNLWciU3vFFSqI1v5VdBa KcY6BKhiH1RhFXImyljySe90jI0o RyEbAmT9GHyxW6YxlcF3 GNAvhZVfVSyeYUY5E81yj4O1THUb LLWoNHY2wYI7aV5mgZqfsajwvTWi dDsgdmVydGljYWwtYWxp Y452IBApqFibLbBwMyZxZqQ6TPh2 B9IlWwt9WEVoqHjyMI6srDCtUYxs Ej1vpBooiNtmDX9zARJc tjgbASWhqI4bVLSqqLPozCvxSD9x FJHlmxffk801PaRlJFV8CMChcTZh N7VjeF2jLfOvAAUqFNCc H4YzkYSnGKwgV180UNmeMtT3HEBt foEkG8GiWBDwyTtqRcF4n3D6Fm9f NSBZZWFyczwvdGQ+PHRk ASU6sJhoQJxoVAMnnH8pCSYpE4e3 FkTxKxE4QEvbN0OjZGInqzfpVh32 cE7yThTzPdX9TFhdA0Hu qxR0JYTraYNgQQrnVCY0E61hm3Q9 MPUySAIcIWD0eOU3nN8ftNsnciam bGVmdDsgdmVydGljYWwt CMkqW220XISzpAkeOkSIUYQORCec dGQ+CKPbHYE2iGysXXfoXUJviY1w RKKhG9v5BsSqPrM2PIkm Z8GcBDZjrahjGg84uC4wPbFoQmD6 UIntS3GpbnJ5GJTynTUiYBaeFQG1 Z99nc7U7GGZcPUKtAGB0 vMY5tH1rsMwcredooVCrtNcblhVc sZrwBIcyUNfhG416BJOzlJaxSa3C EJ39AK53T4KcQubsaNNb bGU+PHRhYmxlIHdpZHRoPScxMDAl UmPsxBdyBM8zEd5yUKTjEFZahRba wFAfRpHai3yeAOZzRJis RR9qjXpbR1ZigAZ0EZYsr3v9Fz97 K11fR0EanEN+WSUefOQ9lAJ3bJ1r VlWxBiR3ASfsB976IbDf bPWxRswbv5gzg6fxkXf4TjOgWQFz mhMgoAafEUY5v9RkBi05X83gWCjm ZHRoPSIyMCUiIHZhbGln re0khB6kJm8+XPQnsTJ2gDH8vF9y TwHqQsU0VTonS898RdRfsEYvPsby I74wS2FfhDD+PHRyPjx0 NODrhIqcAQ9ucKErDEfmGn7cORK6 CsGnKlDiPJwqO2OoXHWkygaguigd wOP0SGYvLEHyyC20Qw7e bYwzBp4kTUHqOKG1EUGwlVDlP3Cz eI3aJqCvKPIrTIVtU2PhjDTaGDgu Y451SJrsBhH8QWRbkuRm U3CeDBGefXmvBwW5r8N7Yo5EiKfm lEZiHZ2hGpRmVWu6T6FkCly2EUPl jOaoUB7szPCcVFpbFq8a vBuqjPqvBX9uFBOctlmxu947VsAk o5tcJAOjpUMsXYunCSB5L04bl6P9 YYHbMCDjEZO6zJD2kX3f bGlnbjogbGVmdDsgdmVydGljYWwt EBuaT518ETMeiMwbSaWGVmw0J0Zg Ara3MNIbaIhpAO5zhMTp DXatPv0nbGyoiDezHO3iXVYrtime o381QkHrv8mtUCBwuFAoUPzlFSD6 A27rc6Q4WETiLDOyYAE6 nXI4dZ2bwFjmhmpweLRczUqeuoFc fFudCMzlNYksN359ZJIauUfmHf1F Qxu9A1YrUew6TGQmbNoi GO7ikDRxTObkSv0rhGwwqJayXF4m QSJtoejll630TbFcq1frSOBdhQHs XZbhDLS1Y91mz0Z1QKOa OZWiXKO4eBJ8hY9tbNhkuyuhcKLn nGsazwLhkIwzSHfxRBdkV460AADb cDsnPlBheWVyOjwvdGQ+ WE57xe16P5HzClduEru3BRCmSNE0 fRR6xV1mYUJrQWrpo7Q0uHB3J3Mn ciIiax9jw3ivTCCsQSlt Y29 (more content not included)... Normal [facility] .QC SARS-CoV-2 (COVID-19)/Fl u/RSV (GeneXpert)on 09-08-2022 Internal Control Pass [facility] Comment on above: Order Comment: Order ed by Discern.[GL_[email or web address]_QC] Performed By: #### 7 [id number], [id number] ####[facility] (DEFAULT)[address] [place] [address] COVID/Flu/RSV (GeneXpert)on 09-08-2022 Flu A (GXpert COVFLURSV) Negative Normal Negative [facility] Comment on above: Performed By: #### 7 [id number], [id number] ####[facility] (DEFAULT)[address] [place] [address] Flu B (GXpert COVFLURSV) Negative Normal Negative [facility] Comment on above: Performed By: #### 7 [id number] ####[facility] (DEFAULT)[address] [place] [address] RSV (GXpert COVFLURSV) Negative Normal Negative [facility] Comment on above: Performed By: #### 7 [id number], [id number] ####[facility] (DEFAULT)[address] [place] [address]97 SARS-CoV-2 (COVID-19) RNA KALE+probe Ql (Unsp spec) Negative Normal Negative [facility] Comment on above: Result Comment: Perf ormed by PCR methodology. Performed By: #### 7 [id number], [id number] ####[facility] (DEFAULT)[address] [place] [address] 10587 ED Clinical Summaryon 2022 ED Clinical Summary [facility] ? Urgent Care [address] [place] [address] Clinical Summary PERSON INFORMATION Name: BRAULIO CHAKRABORTY ROCÍO Age: 26 Years Sex: FEMALE : 1995 MRN: Acct#: Visit Reason: UC - Sinus Pain or Congestion; UC - Cough; COUGH, CONGESTION Arrival: 09/08/2022 13:55:11 Discharge: 09/08/2022 15:23:00 LOS: 000 01:28 Check In: 09/08/2022 13:55:11 Checkout: 09/08/2022 15:23:00 Address: [address] [place] [address] [place] [address] PCP: Alfonzo Addison MD PROVIDER INFORMATION Provider Role Assigned Unassigned ABRIL ARTHUR ED PA 09/08/2022 13:58:09 Dakota Crenshaw NATIONAL OPELINT ANALYST Nurse 09/08/2022 14:02:32 VITALS INFORMATION Vital Sign Triage Latest Temperature Tympanic Temperature Temporal Artery Pulse Rate O2 Sat 98 % 98 % Respiratory Rate Blood Pressure /99 mmHg /99 mmHg MEDICAL INFORMATION Medications Given: Allergy Information: traMADol; Contrast Dye; Toradol; ketorolac; azithromycin PHYSICIAN DOCUMENTATION DISCHARGE INFORMATION: Discharge Disposition: Home Discharge Location: Home PATIENT EDUCATION INFORMATION Instructions: Community-Acquired Pneumonia, Adult, Womh-ia-Azeh; Hypertension, Adult; DASH Eating Plan Follow-Up: With: Address: When: Alfonzo Addison [address] [place], [place] [id number] [facility] (1) Within 3 to 5 days Comments: [...] Patient/family/caregiver verbalizes understanding of instructions given Comment: [facility] ED Note - Physicianon 2022 ED [...] All Problems (Selected) Anxiety / SNOMED CT 21534737 / Confirmed Depression / SNOMED CT 40827614 / Confirmed High blood pressure / SNOMED CT 8302982139 / Confirmed PCOS (polycystic ovarian syndrome) / SNOMED CT 976024323 / Confirmed Migraine headache / SNOMED CT 15764956 / Confirmed Insomnia / SNOMED CT 371592803 / Confirmed Seasonal allergic rhinitis / SNOMED CT 206066331 / Confirmed Bronchial asthma / SNOMED CT 978248409 / Confirmed GERD (gastroesophageal reflux disease) / SNOMED CT 854139242 / Confirmed Obesity / SNOMED CT 4443898915 / Confirmed Hyperinsulinemia / SNOMED CT 120998741 / Confirmed Disease caused by 2019 novel coronavirus / SNOMED CT 9220414177 / Confirmed Objective CONST: -Well-developed well-nourished. -Acute distress: No -Vitals: reviewed. SKIN: -Gross abnormalities: No EYES: -EOM intact, LANNY: -Sclera conjunctiva: Unremarkable. ENT: - Normal pharynx pink and moist. NECK: -Supple (nvhk-wf-prehu): non-tender. CARD: -Rate and rhythm: Regular RESP: [...] and Plan Assessment and Plan: Diagnosis: Pneumonia (HZT92-TM J18.9), Elevated blood pressure reading (KAV99-EB R03.0). Orders Orders Laboratory: SARS-CoV-2 (COVID-19)/Flu/RSV (GeneXpert) [...] on: 09/08/2022 15:44 EST] ABRIL ARTHUR Normal [facility] ED Patient Summaryon 023 ED Patient Summary [facility] ? Urgent Care [address] [place] [address] PATIENT DISCHARGE INSTRUCTIONS Patient Information Name: BRAULIO CHAKRABORTY Age: 26 Years Date of : 1995 Reason For Visit: UC - Sinus Pain or Congestion; UC - Cough; COUGH, CONGESTION Arrival Time: 09/08/2022 13:55:11 Primary Care Physician: Alfonzo Addison MD Attending Physician: ABRIL ARTHUR Comment: Patient Education With: Address: When: Alfonzo Addison [address] [place] [address] Business (1) Within 3 to 5 days [...] these instructions at home: Medicines ? Take mqvz-iii-afxbvev and prescription medicines only as told by [...] of age (more content not included)... Normal [facility] [place] 023 Urgent Care Record [facility] ? Urgent Care [address] [place] [address] PATIENT DISCHARGE INSTRUCTIONS Patient Information Name: BRAULIO CHAKRABORTY Age: 26 Years Date of : 1995 Reason For Visit: UC - Sinus Pain or Congestion; UC - Cough; COUGH, CONGESTION Arrival Time: 09/08/2022 13:55:11 Primary Care Physician: Alfonzo Addison MD Attending Physician: ABRIL ARTHUR Comment: Visit Diagnosis: Diagnoses This Visit Elevated blood pressure reading (R03.0) Pneumonia (J18.9) UC - Cough ([id number]) UC - Sinus Pain or Congestion ([id number]) If you received any narcotics, sedation, or [...] legal documents With: Address: When: Alfonzo Addison [facility] [place] [address] Business (1) Within 3 to 5 days [...] in the [facility] were for an urgent problem and are not intended as complete care. It is important for you to follow up with a doctor, nurse practitioner, or physician?s hr assistant for ongoing care. If your symptoms [...] so we can reach you if necessary. [facility] has provided you with a complete list of medications post discharge. Please inform your intelligence officer basic/provider of your visit and for further instruction on these medications. Any specific questions regarding your chronic medications and dosages should be discussed with your primary care physician(s) and/or pharmacist. New Medications [facility], [address] [place], [place] [phone], [phone] albuterol (Ventolin HFA 90 mcg/inh inhalation aerosol) [...] Comments A (more content not included)... Normal [facility] XR Chest 2 Viewson [...] MD 09/08/22 2:48 pm Technologist: TARUN ERICKSON [facility] MRI KNEE WO CONTRAST LEFTon 04-18-2017 [facility]AST LEFT [facility] [place] [address] Patient Name: BRAULIO CELIS : 1995Sex: FAge: Race: WhiteMRN: [id number]. Location: LPOPPatient Status: DVisit #: [id number] Date: 04/18/2017 8:15:00 AMCompleted Date: 04/18/2017 08:53 AMRequesting Provider: MORIAH BOND Attending Provider: Report Copy To: OLMAN VELA Signs & Symptoms: Internal derangement knee, leftHistory: Order in RIS, No FB per mother Auth # [id number] Valid 04/06/17-05/06/17. Auth scanned into RIS.Comments: Exam: MRI KNEE WO CONTRAST LEFTAccession #: [id number] MRI KNEE WO CONTRAST LEFT 04/18/2017 8:53 [...] 16. Electronically signed by:Shiv Saba. Transcribed by: [email or web address], User Resident: Electronically Signed by: SHIV SABA @ 04/20/2017 02:46 PM Normal [facility] Vital Signs Date Time Vital Sign Value Performing Clinician Jelena garcia 08-18-2023 10:27-0500 Body mass index (BMI) [Ratio] 44.19 kg/m2 [employer] Work Phone: [facility] [employer] 08-18-2023 10:27-0500 Body weight 127.97 kg [employer] Work Phone: [facility] [employer] 08-18-2023 10:27-0500 Diastolic blood pressure 80 mm[Hg] [employer] Work Phone: [facility] [employer] 08-18-2023 10:27-0500 Systolic blood pressure 122 mm[Hg] [employer] Work Phone: [facility] [employer] 08-04-2023 10:46-0500 Diastolic blood pressure 85 mm[Hg] Yanelis Posey MD Work Phone: [facility] 08-04-2023 10:46-0500 Heart rate 85 /min Yanelis Posey MD Work Phone: [facility] 08-04-2023 10:46-0500 Systolic blood pressure 138 mm[Hg] Yanelis Posey MD Work Phone: [facility] 08-04-2023 08:25-0500 Body height 170.2 cm Yanelis Posey MD Work Phone: [facility] 08-04-2023 08:25-0500 Body mass index (BMI) [Ratio] 43.98 kg/m2 Yanelis Posey MD Work Phone: [facility] 08-04-2023 08:25-0500 Body weight 127.37 kg Yanelis Posey MD Work Phone: [facility] Encounters Encounter Date Encounter Type Care Provider Facility Start: 2023 End: 2023 ambulatory JACKY EMILI Not Available Start: 08-31-2023 Orders Only Carla Guerra [facility]- [facility] Comment on above: IUGR (intrauterine g rowth [...] Jeniffer WOODWARD Work Phone: [facility]- [facility] Comment on above: Outgoing Ca ll Start: 08-18-2023 End: 08-18-2023 ambulatory JACKY EMILI Not Available Start: 08-18-2023 End: 08-18-2023 flow sheet Jacky Medranoo DO Work Phone: [facility] Comment on above: Second trimester pre gnancy; Diabetes mellitus screening; Thyroid disease affecting ([facility]) Start: 08-17-2023 Telephone encounter Althea PARIKH [facility] Start: 08-06-2023 End: 08-07-2023 ambulatory ALFONZO ADDISON [facility] Start: 08-05-2023 Documentation procedure Yanelis Posey MD Work Phone: [facility] Start: 08-05-2023 Telephone encounter Stacy Justin RN [facility] Start: 08-04-2023 Documentation procedure Carla Castillo bandar STACKER ATTENDANT [facility] Start: 08-04-2023 Telephone encounter Lelsie reese [facility] Comment on above: Appointment IUGR (intrauterine g rowth restriction) affecting care of mother, second trimester, not applicable or unspecified fetus (Primary Dx); History of delivery, currently ; 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 trimester; Chronic hypertension affecting Start: 08-04-2023 End: 08-05-[facility]: 08-04-2023 End: 08-04-2023 Office outpatient visit 40 minutes Yanelis Posey MD Work Phone: [facility] Comment on above: IUGR (intrauterine g rowth [...] 05-25-2023 End: 05-26-2023 ambulatory Alfonzo Addison MD Facility[facility] Start: 04-29-2023 End: 04-30-2023 ambulatory DINORAH GILBERT Facility:[facility] Start: 04-14-2023 End: 04-15-2023 ambulatory Alfonzo Addison MD Facility:[facility] Start: 03-05-2023 End: 03-06-2023 ambulatory Alfonzo Addison MD Facility:[facility] Start: 01-05-2023 End: 01-05-2023 ambulatory Alfonzo Addison MD Facility:[facility] Start: 11-24-2022 End: 11-24-[address] DOCTOR FROST Facility: Start: 11-18-2022 End: 11-19-2022 ambulatory Alfonzo Addison MD Facility:[facility] Start: 09-16-2022 End: 09-17-2022 ambulatory Alfonzo Addison MD Facility:[facility] Start: 09-08-2022 End: 09-08-2022 ambulatory Alfonzo Addison MD Facility:[facility] Start: 04-18-2017 End: 04-19-2017 Ambulatory MORIAH [facility] Facility:[facility] Procedures Date Procedure Procedure Detail Performing Clinician Start: 08-18-2023 Urnls dip stick/tabl et rgnt non-auto w/o micrscp Jacky Emili DO Work Phone: Start: 08-04-2023 UNLISTED LAB TEST Yanelis Posey MD Work Phone: Plan of Treatment Date Care Activity Detail Author Start: 06-05-2031 DTaP,Tdap and Td Vaccines (7 - Td or Tdap) DTaP,Tdap and Td Vaccines (7 - Td or Tdap) [facility] Start: 08-04-2024 Adult BMI Screening Adult BMI Screen ing [facility] Start: 08-04-2024 Tobacco Screening Tobacco Screening [facility] Start: 08-04-2024 End: 08-04-2024 US MFM with or without consult US MFM with or without consult Imaging Routine IUGR (intrauterine growth restriction) affecting care of mother, second trimester, not applicable or unspecified fetus History of delivery, currently 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 trimester Chronic hypertension affecting Expected: 08/04/2024 (Approximate), Expires: 08/04/2024 [facility] Work Phone: Comment on above: Expected: 08/04/2024 (Approximate), Expires: 08/04/2024 Start: 09-15-2023 End: 09-15-2023 Patient encounter procedure 09/15/2023 10:20 AM EST Routine [facility] [address] [place] [id number] Jacky Mock DO [address] [place] [address] [facility] Start: 08-18-2023 End: 08-18-2024 CBC panel - Blood by Automated count CBC Lab Routine Diabetes mellitus screening Expected: 08/18/2023 (Approximate), Expires: 08/18/2024 [facility] Work Phone: Comment on above: Expected: 08/18/2023 (Approximate), Expires: 08/18/2024 Start: 08-18-2023 End: 08-18-2024 Measurement of glucose 1 hour after glucose challenge for glucose tolerance test Glucose tolerance, 1 hour Lab Routine Diabetes mellitus screening Expected: 08/18/2023 (Approximate), Expires: 08/18/2024 [facility] Comment on above: Expected: 08/18/2023 (Approximate), Expires: 08/18/2024 Start: 08-17-2023 End: 08-17-2023 Patient encounter procedure [facility] Start: 08-05-2023 End: 08-05-2024 Unlisted Lab Test Unlisted Lab Test Lab Routine IUGR (intrauterine growth restriction) affecting care of mother, second trimester, not applicable or unspecified fetus Maternal care for other known or suspected poor growth, unspecified trimester, not applicable or unspecified Expected: 08/05/2023 (Approximate), Expires: 08/05/2024 [facility] Work Phone: Comment on above: Expected: 08/05/2023 (Approximate), Expires: 08/05/2024 Start: 03-13-2023 COVID-19 Vaccine ( season) COVID-19 Vaccine ( season) [facility] Start: 03-13-2023 Influenza vaccination [facility] Start: 2017 Screening for malign ant neoplasm of cervix Pap Smear [facility] Start: 2014 Adult BMI Follow Up Plan Adult BMI Follow Up Plan [facility] Start: 2008 Depression Screening Depression Scre tommysylvia [facility] End: 08-03-2024 Beta-2 glycoprotein antibodies Beta-2 glycoprotein antibodies Lab Routine IUGR (intrauterine growth restriction) affecting care of mother, second trimester, not applicable or unspecified fetus 1 Occurrences starting 08/04/2023 until 08/03/2024 [facility] Work Phone: Comment on above: 1 Occurrences starti ng 08/04/2023 until 08/03/2024 Immunizations Immunization Date Immunization Notes Care Provider Pete olson 06-10-2022 influenza virus vaccine, unspecified formulation [facility] 06-05-2021 influenza, injectabl e, quadrivalent, preservative free [facility] 06-05-2021 tetanus toxoid, reduced diphtheria toxoid, and acellular pertussis vaccine, adsorbed [facility] 06-05-2021 influenza virus vaccine, unspecified formulation Jacky Mock DO Work Phone: [facility] Payers Date Payer Category Payer Unknown [id number] 2020 Unknown [id number] 1995 Unknown [id number] 2.16.84 [id number] 1995 Unknown [id number] 2.16.8 40.1.382108.3.579.2.8 1995 Unknown [id number] 2.16.8 40.1.231327.3.579.2.8 1996 Unknown [id number] 2.16.8 40.1.438461.3.579.2.8 1996 Unknown [id number] 2.16.8 40.1.640090.3.579.2.718 1995 Unknown [id number] 2.16.8 40.1.506603.3.579.2.718 1995 Unknown [id number] 2.16.8 40.1.928594.3.579.2.718 1995 Unknown [id number] 2.16.8 40.1.577447.3.579.2.718 1995 Unknown [id number] 2.16.8 40.1.992312.3.579.2.718 1996 Unknown [id number] 2.16.8 40.1.110543.3.579.2.1286 1996 Unknown [id number] 2.16.8 40.1.157791.3.579.2.1286 1996 Unknown [id number] 2.16.8 40.1.993045.3.579.2.1286 1996 Unknown [id number] 2.16.84 0.1.936666.3.579.2.1259 1996 Unknown [id number] 2.16.84 0.1.568120.3.579.2.1259 1996 Unknown [id number] 2.16.84 0.1.854505.3.579.2.1259 1996 Unknown [id number] 2.16.840 .1.862414.3.579.2.1259 1995 Unknown [id number] 2.16. 840.1.842236.3.579.2.175 1959 Unknown [id number] Unknown [id number] Social History Date Type Detail Facility Start: 12-19-2022 End: 05-25-2023 Tobacco smoking status PAIS Never smoked tobacco [facility] Start: 05-25-2023 Tobacco use and exposure Smokeless tobacco non-user [facility] Start: 08-04-2023 End: 08-18-2023 Alcohol intake Ex-drinker (finding) [facility] Start: 03-21-2020 End: 08-23-2020 History of Social function [facility] Start: 03-21-2020 End: 08-23-2020 Alcohol Use Disorder Identification Test - Consumption [AUDIT-C] [facility] Frequency of Alcohol Consumption Never [facility] Start: 03-26-2023 [facility] Start: 1995 Sex Assigned At Female [facility] Start: 04-22-2021 Gender identity Identifies as female gender (finding) [facility] Start: 04-22-2021 Sexual orientation Heterosexual (finding) [facility] Start: 12-19-2022 Alcohol Comment occasional [...] 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 Yanelis Posey MD Professor, [facility] Maternal Medicine documented in this encounter [facility] 08-20-2023 History of Present illness [...] concerns come up. documented in this encounter [facility] 08-20-2023 History of Present illness Narrative Summary: Carrier Screening Results Called and left VM for Braulio requesting a call back regarding carrier screening results. documented in this encounter [facility] 08-18-2023 History of Present illness [...] Medical History: Diagnosis Date History of Hyperthyroidism ([facility]) Hypothyroidism ([facility]) Insulin resistance Morbid obesity with body mass index (BMI) of 40.0 to 49.9 ([facility]) Pap smear for cervical cancer screening 11/24/2022 [...] SECTION, LOW TRANSVERSE MOLE REMOVAL 12/2011 benign IA KNEE SCOPE,CLEAN/DRAIN Left 09/2014 TONSILLECTOMY TUMOR REMOVAL [...] nursing note reviewed. Exam conducted with a composite bond worker present. Vitals: Estimated body mass index is [...] Delivery: 12/17/23. Pt doing well- reviewed recent [facility] appt. Pt to return to [facility] in 2 weeks. Pt to return in 4 weeks for scheduled OB appt. Documented by [place] Andrea LPN on behalf of: Jacky Mock DO documented in this encounter [facility] 08-17-2023 Miscellaneous Notes Patient returned call states she is being seen somewhere else. documented in this encounter [facility] 08-17-2023 Telephone encounter Note Patient returned call states she is being seen somewhere else. [facility] 08-17-2023 Miscellaneous Notes Please call us back to get rescheduled for your jordan. documented in this encounter [facility] 08-17-2023 Telephone encounter Note Please call us back to get rescheduled for your jordan. [facility] 08-05-2023 Miscellaneous Notes Left message for patient that an additional lab has been ordered that needs to be drawn at a [facility] lab only. Call back phone number given if patient has questions. Patient returned call to [facility] and [facility]. Patient also had concerns regarding future Doppler US being done here at [facility]. Patient will do initial Doppler here and may need to do [place] due to son having surgery in [place]. documented in this encounter [facility] 08-05-2023 Telephone encounter Note Left message for patient that an additional lab has been ordered that needs to be drawn at a [facility] lab only. Call back phone number given if patient has questions. [facility] 08-05-2023 Telephone encounter Note Patient returned call to [facility] and will have additional lab done at a [facility] lab. Patient also had concerns regarding future Doppler US being done here at [facility]. Patient will do initial Doppler here and may need to do [place] due to son having surgery in [place]. [facility] 08-05-2023 History of Present illness [...] lab is drawn at [address] [facility] locations because it seems that result availability and of test and correctly performed test is more likely when ordered through our Internal lab. I will ask our nursing staff to contact the patient and relay instructions. Yanelis Posey MD Professor, [facility] Maternal Medicine documented in this encounter [facility] 08-04-2023 History of Present illness Narrative Lab drawn for cell-free DNA testing. Patient tolerated well. (Lab came to draw ) documented in this encounter [facility] 08-04-2023 Miscellaneous Notes Patient refused to schedule umb doppler in 3 weeks. Son is having surgery and she will call at a later time to schedule. documented in this encounter [facility] 08-04-2023 Telephone encounter Note Patient refused to schedule umb doppler in 3 weeks. Son is having surgery and she will call at a later time to schedule. [facility] 08-04-2023 History of Present illness [...] was 45 minutes. 34 minutes were direct [id number] for counseling and coordination of care during visits itself. An additional 4 minutes or for same day preparation to see the patient. Another 7 minutes were needed were needed to prepare report and or to perform other duties to complete visit. Thank you for sending this patient. Yanelis Posey MD Maternal Medicine Professor, [facility] [phone] Office [phone] Personal Cell Phone Office Note: Chronic hypertension [...] OB provider team. documented in this encounter [facility] 01-05-2023 Note Patient Education Ma terials Follows: [...] wine (148 mL (more content not included)... [facility] 09-08-2022 Note Patient Education Ma terials [...] skin, beans, e (more content not included)... [facility] Evaluation note Diagnosis IUGR (intrauterine growth restriction) affecting care of mother, second trimester, not applicable or unspecified fetus- Primary History of delivery, currently with history of pre-term labor 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 trimester Chronic hypertension affecting documented [facility] encounter [facility]* Diagnosis IUGR (intrauterine growth restriction) affecting care of mother, second trimester, not applicable or unspecified fetus- Primary History of delivery, currently with history of pre-term labor 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 trimester Hx of preeclampsia, prior , currently , second trimester documented in this encounter [facility]* Diagnosis IUGR (intrauterine growth restriction) affecting care of mother, second trimester, not applicable or unspecified fetus- Primary Maternal care for other known or suspected poor growth, unspecified trimester, not applicable or unspecified documented in this encounter [facility]* Diagnosis Second trimester state, incidental Diabetes mellitus screening Screening for diabetes mellitus Thyroid disease affecting ([facility]) documented in this encounter [facility] HealthcareEvaluation note* Diagnosis IUGR (intrauterine growth restriction) affecting care of mother, second trimester, not applicable or unspecified fetus Chronic hypertension affecting Hx of preeclampsia, prior , currently , second trimester documented in this encounter [facility]* Diagnosis IUGR (intrauterine growth restriction) affecting care of mother, second trimester, not applicable or unspecified fetus- Primary Chronic hypertension affecting Hx of preeclampsia, prior , currently , second trimester documented in this encounter [facility] filedocumented in this [facility] on filedocumented in this [facility] on filedocumented in this encounter [facility] filedocumented in this encounter [facility] filedocumented in this encounter [facility] Summary Purpose Family History No Family [...] or without consult Yanelis Posey MD [address] [place] [address] [facility] Maternal Med [address] [place] [address] Referral ID Status Reason Start Date Expiration Date V isits Requested Visits Authorized [id number] Pending Review 08/04/2023 08/03/2024 1 1 Additional Source Comments INFORMATION SOURCE (unrecogn ized section and content) DATE CREATED AUTHOR 01/05/2018 [facility] DATE CREATED AUTHOR AUTHOR'S ORGANIZ ATION 11/25/2022 [facility] DATE CREATED AUTHOR AUTHOR'S ORGANIZ ATION 07/08/2023 [facility] DATE CREATED AUTHOR AUTHOR'S ORGANIZ ATION 08/08/2023 [facility] DATE CREATED AUTHOR AUTHOR'S ORGANIZ ATION 09/22/[address] [facility] EPIC DATE CREATED AUTHOR AUTHOR'S ORGANIZ ATION 09/25/2023 [facility] Reason for Visit (unrecogniz ed section and content) Reason Onset Date Comments Appointment 08/04/2023 Reason Comments Hypertension Reason Comments Routine Visit Reason Onset Date Comments Outgoing Call 08/20/2023 Care Teams (unrecognized sec tion and content) [employer] Relationship Specialty Start Date End Date Alfonzo Addison MD [address] [place] [address] [id number] PCP - General Family Medicine 04/05/20 [employer] Relationship Specialty Start Date End Date Alfonzo Addison MD [address] [place] [address] [id number] PCP - General Family Medicine 04/05/20 [employer] Relationship Specialty Start Date End Date Alfonzo Addison MD [address] [place] [address] [id number] PCP - General Family Medicine 04/05/20 [employer] Relationship Specialty Start Date End Date Alfonzo Addison MD [address] [place] [address] [id number] PCP - General Family Medicine 04/05/20 [employer] Relationship Specialty Start Date End Date Alfonzo Addison MD [address] [place] [address] [id number] PCP - General Family Medicine 04/05/20 [employer] Relationship Specialty Start Date End Date Alfonzo Addison MD [address] [place] [address] [id number] PCP - General Family Medicine 04/05/20 [employer] Relationship Specialty Start Date End Date Alfonzo Addison MD [address] [place] [address] [id number] PCP - General Family Medicine 04/05/20 [employer] Relationship Specialty Start Date End Date Alfonzo Addison MD [address] [place] [address] [id number] PCP - General Family Medicine 12/22/22 [employer] Relationship Specialty Start Date End Date Alfonzo Addison MD [address] [place] [address] [id number] PCP - General Family Medicine 04/05/20 FOR [...] ON THE PRIMARY CLINICAL RECORDS. [facility]. provides no warranty or guarantee of the accuracy or completeness of information in this document.
[2023-09-27 12:17] LABS: Alanine Aminotransferase 21 U/L (14-59); Albumin Globulin Ratio 0.6; Albumin Level 2.5 g/dL (3.4-5.0); Alkaline Phosphatase 72 U/L (46-116); Amylase 41 U/L (25-115); Anion Gap 15.4; Aspartate Amino Transferase 22 U/L (15-37); BUN Creatinine Ratio 12.5; Bilirubin Total 0.3 mg/dL (0.2-1.0); Calcium 8.8 mg/dL (8.5-10.1); Carbon Dioxide 21.2 mmol/L (21.0-32.0); Chloride 104 mmol/L (98-107); Estimated GFR (African America >60 (>=60); Estimated GFR (Non-African Ame >60 (>=60); Globulin 4.1 g/dL; Glucose 119 mg/dL (74-106); Potassium 3.6 mmol/L (3.5-5.1); Sodium 137 mmol/L (136-145); Total Protein 6.6 g/dL (6.4-8.2)
[2023-09-27 12:21] LABS: Lactate Dehydrogenase 155 U/L (81-234); Uric Acid 6.3 mg/dL (2.6-6.0)
[2023-09-27] MEDS: LABETALOL HCL 20 MG/4 ML SYRINGE IVP (12:21)
[2023-09-27 12:25] LABS: Creatinine Urine Random 257.12 mg/dL (20.00-300.00); Protein Creatinine Ratio Urine 0.14; Total Protein Urine Random 36.3 mg/dL (<=11.9)
[2023-09-27] MEDS: 0.9 % SODIUM CHLORIDE 1,000 ML 75 ML IV (12:36)
[2023-09-27] MEDS: MAGNESIUM SULFATE IN WATER 4 GM/100 ML PIGGYBACK IV (12:36)
[2023-09-27 12:42] LABS: Partial Thromboplastin Time 26.7 sec (22.3-36.2); Prothrombin Time 9.7 sec (9.0-11.6)
[2023-09-27] MEDS: MAGNESIUM SULFATE IN WATER 40 GM/1,000 ML IV.SOLN IV (12:57)
[2023-09-27 13:02] LABS: INR <0.93
[2023-09-27] MEDS: BETAMETHASONE ACE/BETAMETHASONE SOD PHOS 30 MG/5 ML 12 MG IM (13:05)
--- NOTE | 2023-09-27 13:09 | PM.DST ---
Transfer Discharge Sum: Prov Provider Date of admission: 09/27/23 12:11 Primary care physician: JOHN GUERRA Admitting clinician: Britni aCmejo Attending physician on admission: Britni Camejo Attending physician on discharge: Britni Camejo Discharging clinician: Britni Camejo Anticipated date of transfer: 09/27/23 Receiving physician/facility: [facility]. DR. HANSON RECEIVING ATTENDING DS: Diagnosis Discharge Diagnosis (1) : Qualifiers: Weeks of gestation: 28 weeks Qualified Code(s): Z3A.28 - 28 weeks gestation of (2) PIH ( induced hypertension): Qualifiers: Trimester: third trimester Qualified Code(s): O13.3 - Gestational [-induced] hypertension without significant proteinuria, third trimester (3) Pre-eclampsia superimposed on chronic hypertension: Assessment and plan: TRANSFER TO [facility] FOR HIGHER LEVEL OF CARE / NICU. DR. HANSON RECEIVED TRANSFER. TRANSPORT BY GROUND. WILL BE TRANSPORTED WITH MAGNESIUM SULFATE RUNNING AT 2 GRAMS PER HOUR AFTER 6 GRAM BOLUS. HAS RECEIVED FIRST DOSE OF CELESTONE 12 MG IM. REQUIRED FOLLOWING ON MATERNITY AFTER TAKING HER HOME MEDICATION LABETALOL 300 MG PO: LABETALOL 10 MG IV, LABETALOL 20 MG IV, APRESOLINE 10 MG IV, APRESOLINE 20 MG IV. HEARTRATE CAT I. NO LOF, NO BLEEDING NO CONTRACTIONS. PATIENT INFORMED OF NEED FOR TRANSFER TO [facility] AND AGREED WITH MANAGEMENT. ALL QUESTIONS WERE ANSWERED WITH STATED UNDERSTANDING Plan 28 YEAR OLD , 28.3 WEEKS GESTATION, ON LABETALOL 300 MG PO BID FOR PIH. PRESENTED TO MATERNITY WITH ELEVATED BLOOD PRESSURE AFTER TAKING LABETALOL 300 MG. NO HEADACHE, NO RUQ PAIN, NO BLURRING VISION, HAD NAUSEA AND VOMITING. ON MATERNITY RECEIVED FOLLOWIN MG LABETALOL IV, 20 MG LABETALOL IV, MAGNESIUM STARTED WITH 6 GRAM BOLUS AND RUN AT 2 GRAM AN HOUR, APRESSOLINE 10 MG IV. CMP PENDING. PLATELETS 300k. HEMATOCRIT 36.7/ URINE PROTEIN TO CREATININE RATION PENDING. TRACE PROTEIN IN URINALYSIS. WEIGHT: 131.8 KG. OF NOTE, HER FIRST CHILD WAS BORN AT 27 WEEKS WITH IUGR SECONDARY TO PREECLAMPSIA WITH SEVERE FEATURES. HE NOW HAS A PERMANENT TRACHEOTOMY Transfer Discharge Sum: Med Medications Active and Home Medications: Home Medications albuterol sulfate 90 mcg/actuation aerosol inhaler 1 inh inhalation Q6H PRN shortness of breath or wheezing 07/02/23 [History Confirmed 07/02/23] aspirin 81 mg tablet,delayed release (Adult Aspirin Regimen) 81 mg PO DAILY 07/02/23 [History Confirmed 07/02/23] escitalopram oxalate 5 mg tablet 5 mg PO DAILY 07/02/23 [History Confirmed 07/02/23] labetalol 200 mg tablet 300 mg PO TID 07/02/23 [History Confirmed 07/02/23] levothyroxine 75 mcg tablet 75 mcg PO DAILY 07/02/23 [History Confirmed 07/02/23] metoclopramide HCl 10 mg tablet 10 mg PO TID PRN nausea and vomiting 07/02/23 [History Confirmed 07/02/23] nitrofurantoin monohydrate/macrocrystals 100 mg capsule (Macrobid) 100 mg PO BID 7 days #14 caps 07/02/23 [Rx] Active Medications Calcium Gluconate (Calcium Gluconate 1,000 Mg/10 Ml Vial) 1,000 mg IVP ONCE PRN PRN Reason: Symptoms Of Eclampsia Sodium Chloride (Sodium Chloride 0.9% 1,000 Ml) 1,000 mls @ 75 mls/hr IV .[id number] [facility] Last Admin: 09/27/23 12:36 Dose: 75 mls/hr Magnesium Sulfate (Magnesium Sulf 40 G/1,000 Ml) 40 gm in 1,000 mls @ 50 mls/hr IV Q20H ONE Stop: 09/28/23 08:44 Last Admin: 09/27/23 12:57 Dose: 50 mls/hr Transfer Discharge Sum: Hosp Hospital Course Hospital course: STABILIZED HYPERTENSION: REQUIRING LABETALOL IV, APRESSOLINE IV AND MAGNESIUM SULFATE 6 GRAM BOLUS AND MAINTENANCE AT 2 GRAM PER HOUR. RECEIVED CELESTONE TIMES ONE DOSE IM 12 MG. BABY DEMONSTRATING CAT I TRACING. NO BLEEDING NO CONTRACTIONS. Status at Discharge Functional capacity at transfer: independent ambulation Overall status at transfer: patient is not back to baseline Time Spent with Patient Time attestation: Total time spent providing and/or coordinating transfer services: Total time spent: greater than 30 minutes Exam Narrative: Exam Narrative: DENIES HEADACHE, VISUAL CHANGES, CONTRACTIONS, BLEEDING, SOB, AND STATES BABY MOVING WELL Constitutional: Vital Signs, click to edit/add: Last Vital Signs Temp 98.1 F 09/27/23 12:42 Pulse 78 09/27/23 13:05 BP 188/91 H 09/27/23 13:05 Documenting provider has reviewed patient's vital signs: yes Common normals: oriented x3, alert and well nourished (OBESE: 131.8 KG) General appearance: cooperative, comfortable, well kempt, well developed and anxious Nutritional appearance: obese Orientation/consciousness: Yes awake, Yes oriented to person, Yes oriented to place and Yes oriented to time HENMT: Common normals: normocephalic, head/scalp atraumatic and hearing grossly normal bilaterally Head and scalp: normal to inspection Eye: Common normals: PERRL, EOMs intact bilaterally, conjunctivae normal and no scleral icterus General eye: normal appearance of both eyes Pupil: accommodation reflex normal Neck & C-Spine: Common normals: full ROM, no lymphadenopathy (HAS BENIGN THYROID NODULES), supple, no meningeal signs and thyroid normal (HAS BENIGN THYROID NODULES) General: normal visual inspection and trachea midline Thyroid: diffusely enlarged Respiratory: Common normals: normal respiratory effort, no use of accessory muscles and clear to auscultation bilaterally Cardio: Common normals: regular rate and regular rhythm GI: Common normals: Normal to inspection, nondistended, normoactive bowel sounds present, soft to palpation and non-tender : Common normals: no CVA tenderness Bladder/kidney exam: catheter in place Speculum exam - cervix: other (NO CONTRACTIONS, NO BLEEDING, NO LOF: CE NOT DONE) Bimanual exam- vagina & uterus: other (GRAVID UTERUS AT 28 CM FUNDAL HEIGHT) Bimanual exam- adnexa, other: other (CAN NOT EXAMINE ADNEXAE) Manual OB Exam: deferred Amniotic Fluid: no fluid Back & Pelvis: Common normals: thoracic and lumbar spine normal to inspection Extremity: Common normals: normal to inspection, full ROM, no calf tenderness and no pedal edema (MILD DEPENDENT EDEMA NON PITTING COMPATIBLE WITH A AT 28.3 WEEKS) Neuro: Common normals: oriented x3, CN's II-XII intact bilaterally, moves all extremities, no focal motor deficits, no sensory deficits noted and deep tendon reflexes 2+ bilaterally (NO CLONUS) Sensorium/orientation: awake, alert, oriented to person, oriented to place and oriented to time Psych: Common normals: mental status grossly normal, thought process normal, cooperative, affect normal, speech normal and activity/motor behavior normal Attitude: calm and engaged Activity/motor behavior: appropriate eye contact Mood and affect: anxious (APPROPRIATE, DUE TO NEED FOR TRANSFER DUE TO MEDICAL CONDITION) Thought process: normal thought process Thought content: normal thought content Discharge Plan Discharge Disposition: [facility] Condition: Serious Assessment: 28 YEAR OLD AT 28.3 WEEKS GESTATION WITH PIH/POSSIBLE SUPERIMPOSED PREECLAMPSIA WITH SEVERE FEATURE. NO LOF, VAGINAL BLEEDING, CONTRACTIONS, BLURRING VISION, RUQ PAIN. PLATELETS NORMAL. PROTEIN : CREATININE RATIO PENDING. CMP PENDING. CAT I HEART TRACING. S/P LABETALOL 300 MG PO AT HOME, 10 MG THEN 20 MG LABETALOL IV ON MATERNITY, APRESSOLINE 10 MG THEN 20 MG IV ON MATERNITY, S/P LOADING DOSE OF MAGNESIUM SULFATE 6 GRAM FOLLOWED BY 2 GRAM PER HOUR MAINTENANCE. S/P FIRST DOSE OF CELETONE 12 MG. INDWELLING HARVEY PLACED Activity Restrictions/Additional Instructions: BEDREST Discharge Location: [facility] Discharge location: [facility]: [facility] [place]
[2023-09-27] MEDS: HYDRALAZINE HCL 20 MG/ML VIAL 10 MG IVP (13:12)
[2023-09-27 13:27] LABS: Fibrinogen 560 mg/dL (200-400)
[2023-09-27] MEDS: HYDRALAZINE HCL 20 MG/ML VIAL IVP (13:38)
[2023-09-27] MEDS: OXYMETAZOLINE HCL 0.05% NASAL SPRAY 2 SPRAY NS (14:18)
[2023-09-27] MEDS: ONDANSETRON PF 4 MG/2 ML VIAL 6 MG IV (14:46)
--- NOTE | 2023-09-27 16:21 | PC.NURSE ---
IV Fluids 75ml/hr; fluids verified with 2nd RN Jed CHRISTINE.
--- NOTE | 2023-09-27 16:23 | PC.NURSE ---
IV main line fluids remain 75mls/hr.
--- NOTE | 2023-09-27 16:25 | PC.NURSE ---
IV Fluids mainline remain at 75ml/hr.
--- NOTE | 2023-09-27 16:25 | PC.NURSE ---
IV mainline fluids remain at 75ml/hr.
--- NOTE | 2023-09-27 16:26 | PC.NURSE ---
Addendum entered by Mena Goel 09/27/23 16:26: Bolus ends at this time. Original Note: IV Fluids 75ml/hr through mainline.
--- NOTE | 2023-09-27 16:30 | PC.NURSE ---
Maintenance MgSO4 initiated at 2gm/hr running on infusion pumping at 50ml/hr. IV fluids through maintain line running at 75ml/hr. Medications verified with 2nd RN Gagan Toussaint RN. FHR 145 bpm.
--- NOTE | 2023-09-27 16:40 | PC.NURSE ---
Addendum entered by Mena Goel 09/27/23 16:44: Sotelo remains intact, patent, and draining. 100 ml in bag at this time. Original Note: Maintenance MgSO4 continues at 2gm/hr running on infusion pumping at 50ml/hr. IV fluids through maintain line running at 75ml/hr. FHR 140 bpm.
--- NOTE | 2023-09-27 16:42 | PC.NURSE ---
Maintenance MgSO4 continues at 2gm/hr running on infusion pumping at 50ml/hr. IV fluids through maintain line running at 75ml/hr.
--- NOTE | 2023-09-27 17:14 | PC.NURSE ---
Addendum entered by Mena Goel 09/27/23 17:30: transport team. Original Note: Transport arrives 09/27/2023 at 1431; this RN gives hand-off report to transport staff. Transport packet given to transport team. Pt belongings secured and given to transport time. 1455- Pt transported .
--- NOTE | 2023-09-27 17:20 | PC.NURSE ---
1350-Pt reports chest tightness in center of chest with SOB. Pt lung sounds clear. Pt nasal pathways congested. Pt intermittent productive cough. Cough and congested started early this AM per pt.
--- NOTE | 2023-09-27 17:26 | PC.NURSE ---
1507- RN calls [place] at this time. This RN gives report to specialized care RN.
== END 2023-09-27 14:55 | disposition short-term general hospital (02) ==
LOC: FBCO 12:12 → FBC 12:12
PROVIDERS: Admitting Provider Obstetrics & Gynecology; PCP Family Medicine; Visit Provider Obstetrics & Gynecology
DX: O13.3 Gestational [pregnancy-induced] hypertension without significant proteinuria, third trimester (principal); Z3A.28 28 weeks gestation of pregnancy; Z79.82 Long term (current) use of aspirin; Z79.899 Other long term (current) drug therapy; Z79.890 Hormone replacement therapy
CPT/HCPCS: 36415; 51702; 59025; 80053; 81001; 82150; 82565; 82570; 83615; 83690; 84156; 84450; 84460; 84520; 84550; 85025; 85384; 85610; 85730; 87086; 96365; 96372; 96375; 96376; G0378; G0379; J0702

== ENCOUNTER 2024-05-03 19:35 | Outpatient (REF) | payer BC, SELFPAY ==
--- OUTSIDE RECORDS SUMMARY | 2024-05-03 19:39 | XMS_ITS | CCD ---
Author Organization [facility] CliniSyvt Care Team Providers Care Director Of In Service Education Name Role Phone MORIAH BOND Unavailable Unavailable HOY MORIAH Unavailable Unavailable SELF, REFERRED Unavailable Unavailable RONDA MORIAH Unavailable Unavailable MISC, DR LIRA Primary Care Unavailable EMILI ., DR RICO Attending Unavailable EMILI ., DR RICO Consulting Unavailable EMILI ., DR RICO Admitting Unavailable Alfonzo Addison MD Primary Care Provider Alfonzo Addison MD Primary Care Provider ALFONZO ADDISON Primary Care Unavailable STEVE ARREOLA Referring Unavailable JAK HANSON Admitting Unavailable AJK HANSON Attending Unavailable CAROLINE TREJO Referring Unavailable ALFONZO ADDISON Primary Care Unavailable JESICA DOMINGUEZ Consulting Unavailable RUCHI ACOSTA Consulting Unavailable CAROLINE TREJO Referring Unavailable ALFONZO ADDISON Primary Care Unavailable MARGARITA REYES Referring Unavailabl e ALFONZO ADDISON Primary Care Unavailable BRIAN TREJO Referring Unavailable ALFONZO ADDISON Primary Care Unavailable JAMAR ALY Referring Unavailable ALFONZO ADDISON Primary Care Unavailable ELLIOT MACK Attending Unavailable ALFONZO ADDISON Primary Care Unavailable OMA NOVAK Attending Unavailable ALFONZO ADDISON Referring Unavailable ALFONZO ADDISON Primary Care Unavailable JAK HANSON Admitting Unavailable JAK HANSON Attending Unavailable ALFONZO ADDISON Primary Care Unavailable CONTRERAS MOCK Referring Unavailable ALFONZO ADDISON Primary Care Unavailable YANELIS POSEY Attending Unavailable CONTRERAS MOCK R Referring Unavailable ALFONZO ADDISON Primary Care Unavailable ALFONZO ADDISON Referring Unavailable ALFONZO ADDISON Primary Care Unavailable CONTRERAS MOCK Attending Unavailable CONTRERAS MOCK Attending Unavailable EMILI, CONTRERAS Attending Unavailable EMILI, CONTRERAS Attending Unavailable EMILI, CONTRERAS Attending Unavailable EMILI, CONTRERAS Attending Unavailable Azael LOPEZ, Alfonzo Sumner Primary Care Unavailable HOUSE, DO DINORAH Mckeon Attending Unavailable HOUSE, DINORAH P Primary Care Unavailable HOUSE, DINORAH P Primary Care Unavailable HOUSE, DO DINORAH P Attending Unavailable Azael LOPEZ, Alfonzo Sumner Primary Care Unavailable Azael LOPEZ, Alfonzo Sumner Attending Unavailable HOUSE, DINORAH P Primary Care Unavailable HOUSE, DO DINORAH P Attending Unavailable HOUSE, DINORAH P Primary Care Unavailable HOUSE, DO DINORAH P Attending Unavailable HOUSE, DINORAH P Primary Care Unavailable HOUSE, DINORAH P Primary Care Unavailable HOUSE, DO DINORAH P Attending Unavailable Allergies Allergy Classification Reported Allergen(s) Allergy Type Date of Onset Reaction(s) Facility (2 sources) azithromycin Drug Allergy 0 [facility] Repository (3 sources) ketorolac; Translations: [Toradol] Drug Allergy 0 [facility] Repository (2 sources) traMADol Drug Allergy 0 [facility] Repository (1 source) Iodine (And Iodine Containting Drugs) Drug allergy (disorder) 5 [facility] Repository (20 sources) Azithromycin; Translations: [AZITHROMYCIN] Drug Allergy 4 [facility] (18 sources) Contrast media; Translations: [DYE] Propensity to adverse reactions to drug 8 [facility] (19 sources) Ketorolac; Translations: [KETOROLAC] Drug Allergy 4 [facility] (20 sources) traMADol; Translations: [TRAMADOL] Drug Allergy 4 [facility] (2 sources) Ketorolac trometamol Allergy to substance 3 [facility] (2 sources) Other Propensity to adverse reactions 8 [facility] (1 source) Contrast media; Translations: [Contrast Dye] Propensity to adverse reactions to drug (disorder) [facility] Repository Medications Current Medications Medication Drug Class(es) Dates Sig (Normalized) Sig (Original) acetaminophen 500 mg oral tablet (4 sources) Start: 10-12-2023 take 2 tablets by mouth every eight hours acetaminophen (TYLENOL EXTRA STRENGTH) 500 mg tablet Take 2 tablets (1,000 mg total) by mouth every 8 (eight) hours. 30 tablet 0 10/12/2023 Active docusate sodium 100 mg oral capsule (13 sources) Start: 06-05-2021 take 1 capsule by mouth twice daily docusate sodium (COLACE) 100 mg capsule Take 1 capsule (100 mg total) by mouth 2 (two) times a day. 10 capsule 0 06/05/2021 Active escitalopram 5 mg oral tablet (17 sources) Serotonin Reuptake Inhibitor take 1 tablet by mouth in the morning escitalopram (LEXAPRO) 5 mg tablet Take 1 tablet (5 mg total) by mouth in the morning. 0 Active ferrous sulfate 325 mg oral tablet (4 sources) Start: 10-12-2023 End: 11-11-2023 take 1 tablet by mouth once daily at breakfast ferrous sulfate 325 (65 FE) mg tablet Take 1 tablet (325 mg total) by mouth daily with breakfast for 30 days. 30 tablet 0 10/12/2023 11/11/2023 Active ibuprofen 800 mg oral tablet (4 sources) Nonsteroidal Anti-inflammatory Drug Start: 10-12-2023 take 1 tablet by mouth every eight hours as needed for headache and fever and pain ibuprofen (MOTRIN) 800 mg tablet Take 1 tablet (800 mg total) by mouth every 8 (eight) hours as needed for headaches, fever or pain. 30 tablet 0 10/12/2023 Active labetalol hydrochloride 300 mg oral tablet (19 sources) beta-Adrenergic Cheyanne Start: 10-12-2023 take 2 tablets by mouth every eight hours labetaloL (NORMODYNE) 300 mg tablet Take 2 tablets (600 mg total) by mouth every 8 (eight) hours. 60 tablet 2 10/12/2023 Active Start: 07-20-2023 End: 07-19-2024 take 1 tablet [...] 07/19/2024 Active take 3 tablets by mo ut in the morning, then take 3 tablets by mouth at bedtime labetaloL (NORMODYNE) 100 mg tablet Take 3 tablets (300 mg total) by mouth in the morning and 3 tablets (300 mg total) before bedtime. 0 Active levothyroxine sodium 0.075 mg oral tablet (20 sources) l-Thyroxine Start: 10-13-2023 take 1 tablet by mouth in the morning levothyroxine (SYNTHROID, LEVOTHROID) 75 MCG tablet Take 1 tablet (75 mcg total) by mouth in the morning. 60 tablet 2 10/13/2023 Active Start: 08-04-2023 take 1 tablet by juany th once in the morning levothyroxine (SYNTHROID, LEVOTHROID) [...] 0 Active metoclopramide 10 mg oral tablet (19 sources) Dopamine-2 Receptor Antagonist Start: 05-07-2023 take [...] (5 mg total) before bedtime. 0 Active NIFEdipine 30 mg osmotic 24 hr extended release oral tablet (5 sources) Dihydropyridine Calcium Channel Cheyanne Start: 10-12-2023 take 1 tablet by mouth every twenty-four hours in the morning NIFEdipine XL (PROCARDIA XL) 30 mg 24 hr tablet Take 1 tablet (30 mg total) by mouth in the morning. 30 tablet 2 10/12/2023 Active End: 08-04-2023 take 1 tablet by mouth once daily, then take 1 tablet by mouth every twenty-four hours NIFEdipine CC (ADALAT CC) 30 mg 24 hr tablet Take 30 mg by mouth daily. 0 08/04/2023 Discontinued (Patient Stopped On Own) omeprazole 20 mg delayed release oral capsule [...] Active ondansetron 4 mg disintegrating oral tablet (18 sources) Serotonin-3 Receptor Antagonist Start: 05-29-2023 ondansetron [...] or vomiting. 0 08/04/2023 Discontinued (Duplicate Listing) oxyCODONE hydrochloride 5 mg oral tablet (4 sources) Opioid Agonist Start: 10-12-2023 End: 10-17-2023 take 1 tablet by mouth every six hours as needed for pain oxyCODONE (ROXICODONE) 5 mg immediate release tablet Indications: Single liveborn, born in hospital, delivered by section Take 1 tablet (5 mg total) by mouth every 6 (six) hours as needed for pain for up to 5 days. Max Daily Amount: 20 mg 20 tablet 0 10/12/2023 10/17/2023 Active pantoprazole 40 mg delayed release oral tablet (4 sources) Proton Pump Inhibitor Start: 10-13-2023 take 1 tablet by mouth in the morning pantoprazole (PROTONIX) 40 mg EC tablet Take 1 tablet (40 mg total) by mouth in the morning. 60 tablet 2 10/13/2023 Active pyridoxine hydrochloride 25 mg oral tablet (2 [...] Problem Classification Problem Date Documented Date Episodic/Chronic Abdominal pain (1 source) Right upper quadrant pain; Translations: [Right upper quadrant pain] Onset: 10-20-2023 Episodic Anxiety disorders (2 sources) Anxiety; Translations: [Anxiety disorder, unspecified] Onset: 02-12-2023 02-12-2023 Chronic Asthma (2 sources) Asthma; Translations: [Unspecified asthma, uncomplicated] Onset: 02-12-2023 02-12-2023 Chronic Esophageal disorders (2 sources) Gastroesophageal reflux disease; Translations: [Gastro-esophageal reflux disease without esophagitis] Onset: 02-12-2023 02-12-2023 Chronic Essential hypertension (20 sources) Essential hypertension; Translations: [Essential (primary) hypertension] Onset: 02-12-2023 03-01-2021 Chronic Headache; including migraine (2 sources) Migraine; Translations: [Migraine, unspecified, not intractable, without status migrainosus] Onset: 02-12-2023 02-12-2023 Chronic Hypertension complicating ; childbirth and the puerperium (5 sources) Chronic hypertension complicating AND/OR reason for care during ; Translations: [Unspecified pre-existing hypertension complicating , unspecified trimester] Onset: 09-27-2023 08-04-2023 Chronic Hypertension complicating ; childbirth and the puerperium (6 sources) Severe pre-eclampsia; Translations: [Severe pre-eclampsia complicating childbirth] Onset: 09-27-2023 09-27-2023 Episodic Joint disorders and dislocations; trauma-related (4 sources) Unspecified internal derangement of left knee; Translations: [UNSPECIFIED INTERNAL DERANGEMENT OF LEFT KNEE] Onset: 04-18-2017 Chronic Mood disorders (2 sources) Depressive disorder; Translations: [Depression] Onset: 02-12-2023 02-12-2023 Chronic Other complications of (1 source) Obesity complicating , unspecified trimester; Translations: [Obesity complicating , unspecified trimester] Onset: 09-27-2023 Chronic Other complications of (20 sources) History of pre-eclampsia; Translations: [Supervision of with other poor reproductive or obstetric history, second trimester] Onset: 08-04-2023 08-04-2023 Episodic Other complications of (20 sources) Poor growth affecting management; Translations: [Maternal care for other known or suspected poor growth, second trimester, not applicable or unspecified] Onset: 08-04-2023 08-04-2023 Episodic Other complications of (2 sources) [...] pregnancies, second trimester] Onset: 08-06-2023 Episodic Other complications of (1 source) Supervision of with other poor reproductive or obstetric history, unspecified trimester; Translations: [Supervision of with other poor reproductive or obstetric history, unspecified trimester] Onset: 09-27-2023 Episodic Other complications of (1 source) Maternal [...] history, second trimester] Onset: 08-04-2023 Episodic Other endocrine disorders (2 sources) Polycystic [...] mental disorders or infectious disease) (4 sources) Patient encounter status; Translations: [Encounter for screening for diabetes mellitus] Onset: 08-04-2023 08-18-2023 Episodic Other upper respiratory disease (2 sources) Seasonal allergic rhinitis; Translations: [Other seasonal allergic rhinitis] Onset: 02-12-2023 02-12-2023 Chronic Previous (1 source) Maternal care for unspecified type scar from previous delivery; Translations: [Maternal care for unspecified type scar from previous delivery] Onset: 09-27-2023 Episodic Residual codes; unclassified (2 sources) Family history of other specified conditions; Translations: [Family history of other specified conditions] Onset: 08-06-2023 Episodic Thyroid disorders (1 source) Hypothyroidism, unspecified; Translations: [Hypothyroidism, unspecified] Onset: 06-19-2023 Chronic Thyroid disorders (17 sources) Disorder of thyroid gland; Translations: [Disorder of thyroid, unspecified] 03-01-2021 Episodic Unclassified (2 sources) Unknown / UNK(Unknown) Onset: 04-18-2017 Unclassified (2 sources) OB Reminders Onset: 05-11-2023 05-11-2023 Past or Other Problems Problem Classification Problem Date Documented Da te Episodic/Chronic Mood disorders (17 sources) Mood disorders Onset: 07-11-2020 07-11-2020 Other bone disease and musculoskeletal deformities (1 source) Chondromalacia, left knee; Translations: [CHONDROMALACIA, LEFT KNEE] Onset: 04-18-2017 Episodic Other complications of (20 sources) Disorder of ; Translations: [Maternal care for other known or suspected poor growth, unspecified trimester, not applicable or unspecified] Onset: 05-28-2021 05-28-2021 Episodic Other complications of (19 sources) H/O: premature delivery; Translations: [Supervision of other high risk pregnancies, unspecified trimester] Onset: 06-19-2023 06-19-2023 Episodic Other complications of (19 sources) Hypothyroidism in ; Translations: [Endocrine, nutritional and metabolic diseases complicating , second trimester] Onset: 06-19-2023 06-19-2023 Episodic Other complications of (1 source) Maternal care for other known or suspected poor growth, unspecified trimester, not applicable or unspecified; Translations: [Maternal care for other known or suspected poor growth, unspecified trimester, not applicable or unspecified] Onset: 05-29-2021 Episodic Other complications of (1 source) Endocrine, nutritional and metabolic diseases complicating , second trimester; Translations: [Endocrine, nutritional and metabolic diseases complicating , second trimester] Onset: 06-19-2023 Episodic Other complications of (1 source) Supervision of other high risk pregnancies, unspecified trimester; Translations: [Supervision of other high risk pregnancies, unspecified trimester] Onset: 06-19-2023 Episodic Residual codes; unclassified (2 sources) Insomnia; Translations: [Insomnia, unspecified] Onset: 02-12-2023 02-12-2023 Episodic Results Test Name Value Interpretation Reference Range Facility Progress Note - Nurseon 01-11 Progress Note - Nurse Patient presents in office today for weight check after one month phentermine medication. Patient weighed in today at 129.18 kg. Patient's vitals were taken with readings of 134/88 from left arm 93 HR, 100% O2. Patient tolerated medication well and requested another month of medication. Refill was proposed to provider for signature. [Electronically Signed on: 02/09/2024 08:48 EDT] Sindy Cormier [Verified on: 02/09/2024 08:48 EDT] Sindy Cormier Normal [facility] CBC AND AUTO DIFFon 10-20-19 24 ABSOLUTE BASOPHIL 0.1 X10E9/L Normal 0.0-0.2 [facility] Comment on above: Performed By: #### U PCR, DSU #### [facility] ([id number]) [address], [address] [place] [address] ABSOLUTE NEUTROPHIL 8.0 X10E9/L High 1.5-6.6 [facility] Comment on above: Performed By: #### U PCR, DSU #### [facility] ([id number]) [address], [address] [place] [address] Basophils/100 WBC (Bld) 0.9 % Normal [facility] Comment on above: Performed By: #### U PCR, DSU #### [facility] ([id number]) [address] [facility] [facility], [address] [place] [address] Eosinophils (Bld) [#/Vol] 0.2 10*3/uL Normal 0.0-0.4 [facility] Comment on above: Performed By: #### U PCR, DSU #### [facility] ([id number]) [address], [address] [place] [address] Eosinophils/100 WBC (Bld) 1.5 % Normal [facility] Comment on above: Performed By: #### U PCR, DSU #### [facility] ([id number]) [address], [facility] [address] [place] [address] Erythrocyte distribution width (RBC) [Ratio] 13.6 % Normal 11.5-15.0 [facility] Comment on above: Performed By: #### U PCR, DSU #### [facility] ([id number]) [address], [address] [place] [address] Hematocrit (Bld) [Volume fraction] 36.2 % Normal 35-47 [facility] Comment on above: Performed By: #### U PCR, DSU #### [facility] ([id number]) [address], [address] [place] [address] Hemoglobin (Bld) [Mass/Vol] 12.1 g/dL Normal 11.7-15.5 [facility] Comment on above: Performed By: #### U PCR, DSU #### [facility] ([id number]) [address], [address] [place] [address] Lymphocytes (Bld) [#/Vol] 3.0 10*3/uL Normal 1.0-3.5 [facility] Comment on above: Performed By: #### U PCR, DSU #### [facility] ([id number]) [address], [address] [place] [address] Lymphocytes/100 WBC (Bld) 25.3 % Normal [facility] Comment on above: Performed By: #### U PCR, DSU #### [facility] ([id number]) [address], [address] [place] [address] MCH (RBC) [Entitic mass] 30.2 pg Normal 27-34 [facility] Comment on above: Performed By: #### U PCR, DSU #### [facility] ([id number]) [address], [address] [place] [address] MCHC (RBC) [Mass/Vol] 33.4 g/dL Normal 32-36 [facility] Comment on above: Performed By: #### U PCR, DSU #### [facility] ([id number]) [address], [address] [place] [address] MCV (RBC) [Entitic vol] 91 fL Normal 80-100 [facility] Comment on above: Performed By: #### U PCR, DSU #### [facility] ([id number]) [address], [address] [place] [address] Monocytes (Bld) [#/Vol] 0.6 10*3/uL Normal 0-0.9 [facility] Comment on above: Performed By: #### U PCR, DSU #### [facility] ([id number]) [address], [address] [place] [address] Monocytes/100 WBC (Bld) 5.1 % Normal [facility] Comment on above: Performed By: #### U PCR, DSU #### [facility] ([id number]) [address], [address] [place] [address] Neutrophils/100 WBC (Bld) 67.2 % Normal [facility] Comment on above: Performed By: #### U PCR, DSU #### [facility] ([id number]) [address], [address] [place] [address] Platelet mean volume (Bld) [Entitic vol] 7.2 fL Normal 7-12 [facility] Comment on above: Performed By: #### U PCR, DSU #### [facility] ([id number]) [address], [address] [place] [address] Platelets (Bld) [#/Vol] 423 10*3/uL Normal 150-450 [facility] Comment on above: Performed By: #### U PCR, DSU #### [facility] ([id number]) [address] [facility], [address] [place] [address] RBC COUNT 4.00 X10E12/L Normal 3.80-5.20 [facility] Comment on above: Performed By: #### U PCR, DSU #### [facility] ([id number]) [address] [facility], [facility] [address] [place] [address] WBC (Bld) [#/Vol] 12.0 10*3/uL High 4.0-11.0 [facility] Comment on above: Performed By: #### U PCR, DSU #### [facility] ([id number]) [address] [facility], [address] [place] [address] COMPREHENSIVE METABOLIC PANE Yasmani 10-20-2023 Albumin [Mass/Vol] 3.7 g/dL Normal 3.2-5.3 [facility] Comment on above: Performed By: #### U PCR, DSU #### [facility] ([id number]) [address] [facility], [address] [place] [address] ALP [Catalytic activity/Vol] 61 U/L Normal 39-130 [facility] Comment on above: Performed By: #### U PCR, DSU #### [facility] ([id number]) [address] [facility], [address] [place] [address] ALT [Catalytic activity/Vol] 17 U/L Normal 0-31 [facility] Comment on above: Performed By: #### U PCR, DSU #### [facility] ([id number]) [address], [address] [place] [address] Anion gap [Moles/Vol] 10 mmol/L Normal 5-15 [facility] Comment on above: Performed By: #### U PCR, DSU #### [facility] ([id number]) [address], [address] [place] [address] AST [Catalytic activity/Vol] 17 U/L Normal 0-41 [facility] Comment on above: Performed By: #### U PCR, DSU #### [facility] ([id number]) [address], [address] [place] [address] Bilirubin [Mass/Vol] 0.3 mg/dL Normal 0.3-1.2 [facility] Comment on above: Performed By: #### U PCR DSU #### [facility] ([id number]) [address], [address] [place] [address] Calcium [Mass/Vol] 9.1 mg/dL Normal 8.5-10.5 [facility] Comment on above: Performed By: #### U PCR DSU #### [facility] ([id number]) [address], [address] [place] [address] Chloride [Moles/Vol] 111 mmol/L High 98-109 [facility] Comment on above: Performed By: #### U PCR, DSU #### [facility] ([id number]) [address], [address] [place] [address] CO2 [Moles/Vol] 23 mmol/L Normal 22-32 [facility] Comment on above: Performed By: #### U PCR, DSU #### [facility] ([id number]) [address], [address] [place] [address] Creatinine [Mass/Vol] 0.80 mg/dL Normal 0.40-1.00 [facility] Comment on above: Result Comment: METH OD TRACEABLE TO IDMS STANDARD Performed By: #### U PCR, DSU #### [facility] ([id number]) [address], [address] [place] [address] eGFR (CKD-EPI) NON-RACE DEPENDENT >90 Normal >59 [facility] Comment on above: Result Comment: Reported eGFR is based on the CKD-EPI 2020 equation that does not use a race coefficient. Performed By: #### U PCR, DSU #### [facility] ([id number]) [address], [address] [place] [address] Glucose [Mass/Vol] 95 mg/dL Normal 65-99 [facility] Comment on above: Performed By: #### U PCR, DSU #### [facility] ([id number]) [address] [address] [place] [address] Potassium [Moles/Vol] 3.7 mmol/L Normal 3.5-5.0 [facility] Comment on above: Performed By: #### U PCR, DSU #### [facility] ([id number]) [address], [address] [place] [address] Protein [Mass/Vol] 6.7 g/dL Normal 6.0-8.0 [facility] Comment on above: Performed By: #### U PCR, DSU #### [facility] ([id number]) [address], [address] [place] [address] Sodium [Moles/Vol] 144 mmol/L Normal 134-146 [facility] Comment on above: Performed By: #### U PCR, DSU #### [facility] ([id number]) [address] [address] [place] [address] Urea nitrogen [Mass/Vol] 18 mg/dL Normal 5-23 [facility] Comment on above: Performed By: #### U PCR, DSU #### [facility] ([id number]) [address], [address] [place] [address] LDH [Catalytic activity/Vol] on 10-20-2023 LDH 152 U/L Normal 100-235 [facility] Comment on above: Performed By: #### U PCR, DSU #### [facility] ([id number]) [address], [address] [place] [address] URIC ACIDon 10-20-2023 Urate [Mass/Vol] 7.3 mg/dL High 2.6-7.2 [facility] Comment on above: Performed By: #### U PCR, DSU #### [facility] ([id number]) [address], [address] [place] [address] CBC AND AUTO DIFFon 10-11-19 ABSOLUTE BASOPHIL 0.0 X10E9/L Normal 0.0-0.2 [facility] Comment on above: Performed By: #### U PCR, DSU #### [facility] ([id number]) [address], [address] [place] [address] ABSOLUTE NEUTROPHIL 14.0 X10E9/L High 1.5-6.6 [facility] Comment on above: Performed By: #### U PCR, DSU #### [facility] ([id number]) [address], [address] [place] [address] Basophils/100 WBC (Bld) 0.2 % Normal [facility] Comment on above: Performed By: #### U PCR, DSU #### [facility] ([id number]) [address], [address] [place] [address] Eosinophils (Bld) [#/Vol] 0.1 10*3/uL Normal 0.0-0.4 [facility] Comment on above: Performed By: #### U PCR, DSU #### [facility] ([id number]) [address], [address] [place] [address] Eosinophils/100 WBC (Bld) 0.2 % Normal [facility] Comment on above: Performed By: #### U PCR, DSU #### [facility] ([id number]) [address], [address] [place] [address] Erythrocyte distribution width (RBC) [Ratio] 13.1 % Normal 11.5-15.0 [facility] Comment on above: Performed By: #### U PCR, DSU #### [facility] ([id number]) [address] [address] [place] [address] Hematocrit (Bld) [Volume fraction] 34.3 % Low 35-47 [facility] Comment on above: Performed By: #### U PCR, DSU #### [facility] ([id number]) [address], [facility] [address] [place] [address] Hemoglobin (Bld) [Mass/Vol] 11.7 g/dL Normal 11.7-15.5 [facility] Comment on above: Performed By: #### U PCR DSU #### [facility] ([id number]) [address], [facility] [address] [place] [address] Lymphocytes (Bld) [#/Vol] 4.6 10*3/uL High 1.0-3.5 [facility] Comment on above: Performed By: #### U PCR, DSU #### [facility] ([id number]) [address] [address] [place] [address] Lymphocytes/100 WBC (Bld) 22.5 % Normal [facility] Comment on above: Performed By: #### U PCR, DSU #### [facility] ([id number]) [address] [address] [place] [address] MCH (RBC) [Entitic mass] 30.3 pg Normal 27-34 [facility] Comment on above: Performed By: #### U PCR, DSU #### [facility] ([id number]) [address], [address] [place] [address] MCHC (RBC) [Mass/Vol] 34.1 g/dL Normal 32-36 [facility] Comment on above: Performed By: #### U PCR, DSU #### [facility] ([id number]) [address], [address] [place] [address] MCV (RBC) [Entitic vol] 89 fL Normal 80-100 [facility] Comment on above: Performed By: #### U PCR, DSU #### [facility] ([id number]) [address], [address] [place] [address] Monocytes (Bld) [#/Vol] 1.8 10*3/uL High 0-0.9 [facility] Comment on above: Performed By: #### U PCR, DSU #### [facility] ([id number]) [address], [address] [place] [address] Monocytes/100 WBC (Bld) 9.0 % Normal [facility] Comment on above: Performed By: #### U PCR, DSU #### [facility] ([id number]) [address], [address] [place] [address] Neutrophils/100 WBC (Bld) 68.1 % Normal [facility] Comment on above: Performed By: #### U PCR, DSU #### [facility] ([id number]) [address], [address] [place] [address] Platelet mean volume (Bld) [Entitic vol] 7.9 fL Normal 7-12 [facility] Comment on above: Performed By: #### U PCR, DSU #### [facility] ([id number]) [address], [address] [place] [address] Platelets (Bld) [#/Vol] 352 10*3/uL Normal 150-450 [facility] Comment on above: Performed By: #### U PCR, DSU #### [facility] ([id number]) [address], [address] [place] [address] RBC COUNT 3.85 X10E12/L Normal 3.80-5.20 [facility] Comment on above: Performed By: #### U PCR, DSU #### [facility] ([id number]) [address], [address] [place] [address] WBC (Bld) [#/Vol] 20.5 10*3/uL High 4.0-11.0 [facility] Comment on above: Performed By: #### U PCR, DSU #### [facility] ([id number]) [address], [address] [place] [address] COMPREHENSIVE METABOLIC PANE Yasmani 10-11-2023 Albumin [Mass/Vol] 3.2 g/dL Normal 3.2-5.3 [facility] Comment on above: Performed By: #### U PCR, DSU #### [facility] ([id number]) [address], [address] [place] [address] ALP [Catalytic activity/Vol] 58 U/L Normal 39-130 [facility] Comment on above: Performed By: #### U PCR, DSU #### [facility] ([id number]) [address], [address] [place] [address] ALT [Catalytic activity/Vol] 13 U/L Normal 0-31 [facility] Comment on above: Performed By: #### U PCR, DSU #### [facility] ([id number]) [address], [address] [place] [address] Anion gap [Moles/Vol] 10 mmol/L Normal 5-15 [facility] Comment on above: Performed By: #### U PCR, DSU #### [facility] ([id number]) [address], [address] [place] [address] AST [Catalytic activity/Vol] 19 U/L Normal 0-41 [facility] Comment on above: Performed By: #### U PCR, DSU #### [facility] ([id number]) [address], [address] [place] [address] Bilirubin [Mass/Vol] 0.2 mg/dL Low 0.3-1.2 [facility] Comment on above: Performed By: #### U PCR, DSU #### [facility] ([id number]) [address], [address] [place] [address] Calcium [Mass/Vol] 8.1 mg/dL Low 8.5-10.5 [facility] Comment on above: Performed By: #### U PCR, DSU #### [facility] ([id number]) [address], [address] [place] [address] Chloride [Moles/Vol] 103 mmol/L Normal 98-109 [facility] Comment on above: Performed By: #### U PCR, DSU #### [facility] ([id number]) [address], [address] [place] [address] CO2 [Moles/Vol] 27 mmol/L Normal 22-32 [facility] Comment on above: Performed By: #### U PCR, DSU #### [facility] ([id number]) [address], [address] [place] [address] Creatinine [Mass/Vol] 0.73 mg/dL Normal 0.40-1.00 [facility] Comment on above: Result Comment: METH OD TRACEABLE TO IDMS STANDARD Performed By: #### U PCR, DSU #### [facility] ([id number]) [address], [address] [place] [address] eGFR (CKD-EPI) NON-RACE DEPENDENT >90 Normal >59 [facility] Comment on above: Result Comment: Reported eGFR is based on the CKD-EPI 2020 equation that does not use a race coefficient. Performed By: #### U PCR, DSU #### [facility] ([id number]) [address], [address] [place] [address] Glucose [Mass/Vol] 79 mg/dL Normal 65-99 [facility] Comment on above: Performed By: #### U PCR, DSU #### [facility] ([id number]) [address], [address] [place] [address] Potassium [Moles/Vol] 4.1 mmol/L Normal 3.5-5.0 [facility] Comment on above: Performed By: #### U PCR, DSU #### [facility] ([id number]) [address], [address] [place] [address] Protein [Mass/Vol] 5.9 g/dL Low 6.0-8.0 [facility] Comment on above: Performed By: #### U PCR DSU #### [facility] ([id number]) [address], [address] [place] [address] Sodium [Moles/Vol] 140 mmol/L Normal 134-146 [facility] Comment on above: Performed By: #### U PCR DSU #### [facility] ([id number]) [address], [address] [place] [address] Urea nitrogen [Mass/Vol] 21 mg/dL Normal 5-23 [facility] Comment on above: Performed By: #### U PCR, DSU #### [facility] ([id number]) [address], [address] [place] [address] CAPILLARY BLOOD GASon 2023 HERIBERTO'S TEST Normal [facility] Comment on above: Performed By: #### U PCR, DSU #### [facility] ([id number]) [address], [address] [place] [address] BASE,DEFICIT 4.0 MMOL/L High 0.0-2.0 [facility] Comment on above: Performed By: #### U PCR, DSU #### [facility] ([id number]) [address], [address] [place] [address] Body temperature 98.6 [degF] Normal 37.0 [facility] Comment on above: Performed By: #### U PCR, DSU #### [facility] ([id number]) [address], [address] [place] [address] HCO3 (Bld) [Moles/Vol] 22.3 mmol/L Normal 20.0-24.0 [facility] Comment on above: Performed By: #### U PCR, DSU #### [facility] ([id number]) [address], [address] [place] [address] INSP. O2 CONC. 35 % Normal [facility] Comment on above: Performed By: #### U PCR, DSU #### [facility] ([id number]) [address], [address] [place] [address] Oxygen saturation in Blood 37.0 % Low >80.0 [facility] Comment on above: Performed By: #### U PCR, DSU #### [facility] ([id number]) [address], [address] [place] [address] OXYGEN SOURCE Vent Normal [facility] Comment on above: Performed By: #### U PCR, DSU #### [facility] ([id number]) [address], [address] [place] [address] PCO2, CAPILLARY 42.3 MMHG Normal 35-45 [facility] Comment on above: Performed By: #### U PCR, DSU #### [facility] ([id number]) [address], [address] [place] [address] PH, CAPILLARY 7.330 Normal 7.330-7.490 [facility] Comment on above: Performed By: #### U PCR, DSU #### [facility] ([id number]) [address], [address] [place] [address] PO2, CAPILLARY 23 MMHG Low 35-45 [facility] Comment on above: Performed By: #### U PCR, DSU #### [facility] ([id number]) [address], [address] [place] [address] SAMPLE SITE RHeel Normal [facility] Comment on above: Performed By: #### U PCR, DSU #### [facility] ([id number]) [address], [address] [place] [address] SAMPLE TYPE CAPILLARY Normal [facility] Comment on above: Performed By: #### U PCR, DSU #### [facility] ([id number]) [address], [address] [place] [address] CBC AND AUTO DIFFon 03-30-20 24 Band form neutrophils/100 WBC (Bld) 1.0 % Normal [facility] Comment on above: Performed By: #### U PCR, DSU #### [facility] ([id number]) [address], [address] [place] [address] Erythrocyte distribution width (RBC) [Ratio] 13.4 % Normal 11.5-15.0 [facility] Comment on above: Performed By: #### U PCR, DSU #### [facility] ([id number]) [address] [address] Hematocrit (Bld) [Volume fraction] 35.2 % Normal 35-47 [facility] Comment on above: Performed By: #### U PCR, DSU #### [facility] ([id number]) [address], [address] [place] [address] Hemoglobin (Bld) [Mass/Vol] 12.2 g/dL Normal 11.7-15.5 [facility] Comment on above: Performed By: #### U PCR, DSU #### [facility] ([id number]) [address], [facility] [address] [place] [address] Lymphocytes (Bld) [#/Vol] 4.0 10*3/uL High 1.0-3.5 [facility] Comment on above: Performed By: #### U PCR, DSU #### [facility] ([id number]) [address] [address] Lymphocytes/100 WBC (Bld) 16.0 % Normal [facility] Comment on above: Performed By: #### U PCR, DSU #### [facility] ([id number]) [address], [address] [address] MCH (RBC) [Entitic mass] 30.7 pg Normal 27-34 [facility] Comment on above: Performed By: #### U PCR, DSU #### [facility] ([id number]) [address], [facility] [address] [place] [address] MCHC (RBC) [Mass/Vol] 34.6 g/dL Normal 32-36 [facility] Comment on above: Performed By: #### U PCR, DSU #### [facility] ([id number]) [address] [address] MCV (RBC) [Entitic vol] 89 fL Normal 80-100 [facility] Comment on above: Performed By: #### U PCR, DSU #### [facility] ([id number]) [address], [address] [place] [address] Monocytes (Bld) [#/Vol] 1.3 10*3/uL High 0-0.9 [facility] Comment on above: Performed By: #### U PCR, DSU #### [facility] ([id number]) [address], [address] [place] [address] Monocytes/100 WBC (Bld) 5.0 % Normal [facility] Comment on above: Performed By: #### U PCR, DSU #### [facility] ([id number]) [address], [address] [place] [address] Neutrophils (Bld) [#/Vol] 19.9 10*3/uL High 1.5-6.6 [facility] Comment on above: Performed By: #### U PCR, DSU #### [facility] ([id number]) [address], [address] [place] [address] Platelet mean volume (Bld) [Entitic vol] 8.0 fL Normal 7-12 [facility] Comment on above: Performed By: #### U PCR, DSU #### [facility] ([id number]) [address], [address] [place] [address] Platelets (Bld) [#/Vol] 375 10*3/uL Normal 150-450 [facility] Comment on above: Performed By: #### U PCR, DSU #### [facility] ([id number]) [address], [address] [place] [address] RBC COUNT 3.97 X10E12/L Normal 3.80-5.20 [facility] Comment on above: Performed By: #### U PCR, DSU #### [facility] ([id number]) [address], [address] [place] [address] RBC morphology finding Nom (Bld) NORMAL Normal [facility] Comment on above: Performed By: #### U PCR, DSU #### [facility] ([id number]) [address], [address] [place] [address] SEG NEUTROPHIL 78.0 % Normal [facility] Comment on above: Performed By: #### U PCR, DSU #### [facility] ([id number]) [address], [address] [place] [address] WBC (Bld) [#/Vol] 25.2 10*3/uL High 4.0-11.0 [facility] Comment on above: Performed By: #### U PCR, DSU #### [facility] ([id number]) [address], [address] [place] [address] COMPREHENSIVE METABOLIC PANE Yasmani 10-10-2023 Albumin [Mass/Vol] 3.3 g/dL Normal 3.2-5.3 [facility] Comment on above: Performed By: #### U PCR, DSU #### [facility] ([id number]) [address], [address] [place] [address] ALP [Catalytic activity/Vol] 74 U/L Normal 39-130 [facility] Comment on above: Performed By: #### U PCR, DSU #### [facility] ([id number]) [address], [address] [place] [address] ALT [Catalytic activity/Vol] 16 U/L Normal 0-31 [facility] Comment on above: Performed By: #### U PCR, DSU #### [facility] ([id number]) [address], [address] [place] [address] Anion gap [Moles/Vol] 12 mmol/L Normal 5-15 [facility] Comment on above: Performed By: #### U PCR, DSU #### [facility] ([id number]) [address], [address] [place] [address] AST [Catalytic activity/Vol] 20 U/L Normal 0-41 [facility] Comment on above: Performed By: #### U PCR, DSU #### [facility] ([id number]) [address], [address] [place] [address] Bilirubin [Mass/Vol] 0.2 mg/dL Low 0.3-1.2 [facility] Comment on above: Performed By: #### U PCR, DSU #### [facility] ([id number]) [address], [address] [place] [address] Calcium [Mass/Vol] 7.6 mg/dL Low 8.5-10.5 [facility] Comment on above: Performed By: #### U PCR, DSU #### [facility] ([id number]) [address], [address] [place] [address] Chloride [Moles/Vol] 100 mmol/L Normal 98-109 [facility] Comment on above: Performed By: #### U PCR, DSU #### [facility] ([id number]) [address], [address] [place] [address] CO2 [Moles/Vol] 24 mmol/L Normal 22-32 [facility] Comment on above: Performed By: #### U PCR, DSU #### [facility] ([id number]) [address] [address] [place] [address] Creatinine [Mass/Vol] 0.71 mg/dL Normal 0.40-1.00 [facility] Comment on above: Result Comment: METH OD TRACEABLE TO IDMS STANDARD Performed By: #### U PCR, DSU #### [facility] ([id number]) [address] [address] [place] [address] eGFR (CKD-EPI) NON-RACE DEPENDENT >90 Normal >59 [facility] Comment on above: Result Comment: Reported eGFR is based on the CKD-EPI 2020 equation that does not use a race coefficient. Performed By: #### U PCR, DSU #### [facility] ([id number]) [address] [address] [place] [address] Glucose [Mass/Vol] 101 mg/dL High 65-99 [facility] Comment on above: Performed By: #### U PCR, DSU #### [facility] ([id number]) [address], [address] [place] [address] Potassium [Moles/Vol] 3.9 mmol/L Normal 3.5-5.0 [facility] Comment on above: Performed By: #### U PCR, DSU #### [facility] ([id number]) [address], [address] [place] [address] Protein [Mass/Vol] 6.3 g/dL Normal 6.0-8.0 [facility] Comment on above: Performed By: #### U PCR, DSU #### [facility] ([id number]) [address], [address] [place] [address] Sodium [Moles/Vol] 136 mmol/L Normal 134-146 [facility] Comment on above: Performed By: #### U PCR, DSU #### [facility] ([id number]) [address], [address] [place] [address] Urea nitrogen [Mass/Vol] 13 mg/dL Normal 5-23 [facility] Comment on above: Performed By: #### U PCR, DSU #### [facility] ([id number]) [address], [address] [place] [address] Albumin [Mass/Vol] 3.3 g/dL Normal 3.2-5.3 [facility] Comment on above: Performed By: #### U PCR, DSU #### [facility] ([id number]) [address], [address] [place] [address] ALP [Catalytic activity/Vol] 74 U/L Normal 39-130 [facility] Comment on above: Performed By: #### U PCR, DSU #### [facility] ([id number]) [address], [address] [place] [address] ALT [Catalytic activity/Vol] 19 U/L Normal 0-31 [facility] Comment on above: Performed By: #### U PCR, DSU #### [facility] ([id number]) [address], [address] [place] [address] Anion gap [Moles/Vol] 13 mmol/L Normal 5-15 [facility] Comment on above: Performed By: #### U PCR, DSU #### [facility] ([id number]) [address], [address] [place] [address] AST [Catalytic activity/Vol] 24 U/L Normal 0-41 [facility] Comment on above: Performed By: #### U PCR, DSU #### [facility] ([id number]) [address], [address] [place] [address] Bilirubin [Mass/Vol] 0.3 mg/dL Normal 0.3-1.2 [facility] Comment on above: Performed By: #### U PCR, DSU #### [facility] ([id number]) [address], [address] [place] [address] Calcium [Mass/Vol] 8.1 mg/dL Low 8.5-10.5 [facility] Comment on above: Performed By: #### U PCR, DSU #### [facility] ([id number]) [address], [address] [place] [address] Chloride [Moles/Vol] 102 mmol/L Normal 98-109 [facility] Comment on above: Performed By: #### U PCR, DSU #### [facility] ([id number]) [address], [address] [place] [address] CO2 [Moles/Vol] 22 mmol/L Normal 22-32 [facility] Comment on above: Performed By: #### U PCR, DSU #### [facility] ([id number]) [address] [address] [place] [address] Creatinine [Mass/Vol] 0.78 mg/dL Normal 0.40-1.00 [facility] Comment on above: Result Comment: METH OD TRACEABLE TO IDMS STANDARD Performed By: #### U PCR, DSU #### [facility] ([id number]) [address], [facility] [address] [place] [address] eGFR (CKD-EPI) NON-RACE DEPENDENT >90 Normal >59 [facility] Comment on above: Result Comment: Reported eGFR is based on the CKD-EPI 2020 equation that does not use a race coefficient. Performed By: #### U PCR, DSU #### [facility] ([id number]) [address] [address] [place] [address] Glucose [Mass/Vol] 118 mg/dL High 65-99 [facility] Comment on above: Performed By: #### U PCR, DSU #### [facility] ([id number]) [address] [address] [place] [address] Potassium [Moles/Vol] 4.2 mmol/L Normal 3.5-5.0 [facility] Comment on above: Performed By: #### U PCR, DSU #### [facility] ([id number]) [address] [address] [place] [address] Protein [Mass/Vol] 6.2 g/dL Normal 6.0-8.0 [facility] Comment on above: Performed By: #### U PCR, DSU #### [facility] ([id number]) [address] [address] [place] [address] Sodium [Moles/Vol] 137 mmol/L Normal 134-146 [facility] Comment on above: Performed By: #### U PCR, DSU #### [facility] ([id number]) [address], [address] [place] [address] Urea nitrogen [Mass/Vol] 16 mg/dL Normal 5-23 [facility] Comment on above: Performed By: #### U PCR, DSU #### [facility] ([id number]) [address], [address] [place] [address] CORD ARTERIAL GASon 10-10-19 24 HERIBERTO'S TEST Normal [facility] Comment on above: Performed By: #### A CA, 5124-3, 61900-1, 03121-4, 65719-0 #### [facility] ([id number]) [address], [address] [place] [address] BASE,DEFICIT 5.0 MMOL/L High 0.0-2.0 [facility] Comment on above: Performed By: #### A CA, 5124-3, 93367-1, 39830-4, 27500-1 #### [facility] ([id number]) [address], [address] [place] [address] HCO3 (Bld) [Moles/Vol] 20.2 mmol/L Low 22-26 [facility] Comment on above: Performed By: #### A CA, 5124-3, 47015-1, 48026-0, 06712-2 #### [facility] ([id number]) [address], [address] [place] [address] Oxygen (Bld) [Partial pressure] 21 mm[Hg] Normal 12-24 [facility] Comment on above: Performed By: #### A CA, 5124-3, 12910-7, 01037-0, 69288-9 #### [facility] ([id number]) [address], [address] [place] [address] Oxygen saturation in Blood 30.0 % Normal 7.1-39.5 [facility] Comment on above: Performed By: #### A CA, 5124-3, 13146-0, 10243-5, 96473-9 #### [facility] ([id number]) [address], [address] [place] [address] OXYGEN SOURCE [employer] Normal [facility] Comment on above: Performed By: #### A PARUL, 5124-3, 47423-3, 38878-2, 09960-1 #### [facility] ([id number]) [address], [address] [address] PCO2 39.1 MMHG Low 40.8-57.6 [facility] Comment on above: Performed By: #### A PARUL, 5124-3, 87270-0, 92481-8, 40325-0 #### [facility] ([id number]) [address], [address] [address] pH (Bld) 7.321 [pH] High 7.24-7.30 [facility] Comment on above: Performed By: #### A PARUL, 5124-3, 06853-5, 02847-5, 00792-6 #### [facility] ([id number]) [address], [address] [address] SAMPLE SITE [employer] [facility] Comment on above: Performed By: #### A PARUL, 5124-3, 53530-8, 62561-3, 88950-8 #### [facility] ([id number]) [address], [address] [address] SAMPLE TYPE [employer] [facility] Comment on above: Performed By: #### A PARUL, 5124-3, 56791-6, 38259-2, 22229-8 #### [facility] ([id number]) [address], [facility] [address] [place] [address] CORD VENOUS GASon 10-10-2023 HERIBERTO'S TEST Normal [facility] Comment on above: Performed By: #### A PARUL, 5124-3, 22954-5, 41327-2, 36832-3 #### [facility] ([id number]) [address], [address] [place] [id number] BASE,DEFICIT 4.0 MMOL/L High 0.0-2.0 [facility] Comment on above: Performed By: #### A CA, 5124-3, 51315-5, 38960-4, 21278-3 #### [facility] ([id number]) [address], [address] [place] [id number] HCO3 (Bld) [Moles/Vol] 22.3 mmol/L Normal 20.0-24.0 [facility] Comment on above: Performed By: #### A CA, 5124-3, 59417-7, 14185-8, 84868-0 #### [facility] ([id number]) [address], [address] [place] [id number] Oxygen (Bld) [Partial pressure] 17 mm[Hg] Low 22-35 [facility] Comment on above: Performed By: #### A CA, 5124-3, 21320-6, 40076-3, 86546-7 #### [facility] ([id number]) [address], [address] [place] [id number] Oxygen saturation in Blood 20.0 % Low 32.5-66.3 [facility] Comment on above: Performed By: #### A CA, 5124-3, 51401-1, 39816-6, 69962-4 #### [facility] ([id number]) [address], [address] [place] [address] OXYGEN SOURCE RoomAir Normal [facility] Comment on above: Performed By: #### A CA, 5124-3, 32341-1, 56826-8, 05258-5 #### [facility] ([id number]) [address], [address] [place] [address] PCO2 43.8 MMHG Normal 32.6-43.8 [facility] Comment on above: Performed By: #### A CA, 5124-3, 68544-2, 12817-2, 48286-5 #### [facility] ([id number]) [address], [facility] [address] [place] [address] pH (Bld) 7.315 [pH] Normal 7.25-7.37 [facility] Comment on above: Performed By: #### A CA, 5124-3, 29007-0, 27651-0, 84723-0 #### [facility] ([id number]) [address], [facility] [address] [place] [address] SAMPLE SITE VenCord Normal [facility] Comment on above: Performed By: #### A CA, 5124-3, 72634-1, 99170-6, 31054-4 #### [facility] ([id number]) [address], [address] [place] [address] SAMPLE TYPE UMBILICALCORD Normal [facility] Comment on above: Performed By: #### A CA, 5124-3, 78135-9, 84320-1, 60137-2 #### [facility] ([id number]) [address], [address] [address] Surgical Pathologyon 024 Surgical Pathology Normal [facility] Comment on above: Result Comment: [facility] [address] [place] [address] Surgical Pathology Consultation Patient Name:SISI CHAKRABORTY:1995 (Age: 28)Gender:FTaken:4Reported:4Physician(s):Sue Holland M.D. ([id number])Copy To: Rec. #:[id number]: #[id number] Final Pathologic Diagnosis Bilateral fallopian tubes: Benign fallopian tubes. Report Electronically Signed Out kiki/10/14/2023britany Cifuentes MD Interpretation performed at [facility], [address] [place] [address], License number: [id number]. Clinical History Pre-eclampsia with severe features. Gross Description Received in formalin labeled CHAKRABORTY, left and right fallopian tube are two unoriented, continuous segments of fallopian tube with proximal cauterized end and distal fimbriated end. The first (inked black, 5.7 cm in length and up to 0.5 cm in diameter) and second (7.0 cm in length and up to 0.5 cm in diameter) fallopian tube exhibit a serosal surface that is purple-holguin, smooth with scattered fibroadipose adhesions, and glistening. Perpendicularly sectioned fimbria (inked tube) is submitted in cassette A, sales training representative cross-sections of fallopian tube (inked) in cassette B, perpendicularly sectioned fimbria (uninked tube) in cassette C, and sales training representative cross-sections of fallopian tube (uninked) in cassette D. (4, ss, [id number], m1) SHIV finney/10/12/2023GR Specimen(s) Received Right and left fallopian tubes Fee Codes(s): 1; 12075 BETA-2 GP1 AB PANELon 2023 BETA-2 GP1 IgA <2.0 Normal 0.0-19.9 [facility] Comment on above: Performed By: #### A CA, 5124-3, 93450-1, 34765-5, 58843-4 #### [facility] ([id number]) [address], [address] [place] [address] BETA-2 GP1 IgG <1.4 Normal 0.0-19.9 [facility] Comment on above: Performed By: #### A CA, 5124-3, 81580-1, 00876-1, 70425-9 #### [facility] ([id number]) [address], [address] [place] [address] BETA-2 GP1 IgM <1.5 Normal 0.0-19.9 [facility] Comment on above: Performed By: #### A PARUL, 5124-3, 88135-1, 52887-8, 74444-0 #### [facility] ([id number]) [address], [address] [place] [address] CBC AND AUTO DIFFon 10-09-19 ABSOLUTE BASOPHIL 0.3 X10E9/L High 0.0-0.2 [facility] Comment on above: Performed By: #### A PARUL, 5124-3, 91082-8, 97824-9, 76266-4 #### [facility] ([id number]) [address], [address] [place] [address] ABSOLUTE NEUTROPHIL 15.1 X10E9/L High 1.5-6.6 [facility] Comment on above: Performed By: #### A PARUL, 5124-3, 71538-2, 31121-0, 76959-5 #### [facility] ([id number]) [address], [address] [address] Basophils/100 WBC (Bld) 1.5 % Normal [facility] Comment on above: Performed By: #### A PARUL, 5124-3, 04307-6, 38609-4, 73882-2 #### [facility] ([id number]) [address], [address] [place] [address] Eosinophils (Bld) [#/Vol] 0.0 10*3/uL Normal 0.0-0.4 [facility] Comment on above: Performed By: #### A PARUL, 5124-3, 99610-8, 88233-9, 30671-8 #### [facility] ([id number]) [address], [address] [place] [address] Eosinophils/100 WBC (Bld) 0.1 % Normal [facility] Comment on above: Performed By: #### A CA, 5124-3, 27399-7, 61950-9, 43291-1 #### [facility] ([id number]) [address] [address] Erythrocyte distribution width (RBC) [Ratio] 12.7 % Normal 11.5-15.0 [facility] Comment on above: Performed By: #### A CA, 5124-3, 68001-1, 25536-4, 51935-2 #### [facility] ([id number]) [address] [address] Hematocrit (Bld) [Volume fraction] 38.4 % Normal 35-47 [facility] Comment on above: Performed By: #### A PARUL, 5124-3, 08065-3, 19135-1, 58120-1 #### [facility] ([id number]) [address], [address] [address] Hemoglobin (Bld) [Mass/Vol] 12.9 g/dL Normal 11.7-15.5 [facility] Comment on above: Performed By: #### A PARUL, 5124-3, 35082-6, 09436-9, 98317-8 #### [facility] ([id number]) [address] [address] Lymphocytes (Bld) [#/Vol] 3.7 10*3/uL High 1.0-3.5 [facility] Comment on above: Performed By: #### A CA, 5124-3, 67651-2, 95453-8, 99587-3 #### [facility] ([id number]) [address] [address] Lymphocytes/100 WBC (Bld) 18.7 % Normal [facility] Comment on above: Performed By: #### A CA, 5124-3, 14762-1, 91064-0, 34183-7 #### [facility] ([id number]) [address] [address] [place] [address] MCH (RBC) [Entitic mass] 30.1 pg Normal 27-34 [facility] Comment on above: Performed By: #### A CA, 5124-3, 22969-4, 12949-9, 37566-5 #### [facility] ([id number]) [address], [address] [address] MCHC (RBC) [Mass/Vol] 33.7 g/dL Normal 32-36 [facility] Comment on above: Performed By: #### A CA, 5124-3, 44230-4, 12792-0, 67869-0 #### [facility] ([id number]) [address] [address] MCV (RBC) [Entitic vol] 89 fL Normal 80-100 [facility] Comment on above: Performed By: #### A CA, 5124-3, 31366-0, 67923-2, 78211-0 #### [facility] ([id number]) [address] [address] Monocytes (Bld) [#/Vol] 0.6 10*3/uL Normal 0-0.9 [facility] Comment on above: Performed By: #### A CA, 5124-3, 41606-4, 67991-7, 90011-4 #### [facility] ([id number]) [address] [address] Monocytes/100 WBC (Bld) 3.1 % Normal [facility] Comment on above: Performed By: #### A CA, 5124-3, 88706-0, 76040-0, 17704-6 #### [facility] ([id number]) [address] [address] Neutrophils/100 WBC (Bld) 76.6 % Normal [facility] Comment on above: Performed By: #### A PARUL, 5124-3, 19446-5, 93439-9, 13238-5 #### [facility] ([id number]) [address], [facility] [address] [place] [address] Platelet mean volume (Bld) [Entitic vol] 8.2 fL Normal 7-12 [facility] Comment on above: Performed By: #### A PARUL, 5124-3, 49824-5, 23287-6, 78996-2 #### [facility] ([id number]) [address], [address] [address] Platelets (Bld) [#/Vol] 434 10*3/uL Normal 150-450 [facility] Comment on above: Performed By: #### A PARUL, 5124-3, 36961-5, 63933-4, 07571-3 #### [facility] ([id number]) [address], [facility] [address] [place] [address] RBC COUNT 4.30 X10E12/L Normal 3.80-5.20 [facility] Comment on above: Performed By: #### A PARUL, 5124-3, 13657-7, 41370-1, 19829-4 #### [facility] ([id number]) [address], [address] [address] WBC (Bld) [#/Vol] 19.7 10*3/uL High 4.0-11.0 [facility] Comment on above: Performed By: #### A PARUL, 5124-3, 89317-3, 78767-3, 85996-3 #### [facility] ([id number]) [address], [address] [place] [address] COMPLETE BLOOD COUNTon 10-08 Erythrocyte distribution width (RBC) [Ratio] 13.0 % Normal 11.5-15.0 [facility] Comment on above: Performed By: #### A CA, 5124-3, 12215-2, 38337-3, 71395-3 #### [facility] ([id number]) [address], [address] [place] [address] Hematocrit (Bld) [Volume fraction] 38.0 % Normal 35-47 [facility] Comment on above: Performed By: #### A CA, 5124-3, 54772-6, 44920-0, 82737-4 #### [facility] ([id number]) [address], [facility] [address] [place] [address] Hemoglobin (Bld) [Mass/Vol] 12.9 g/dL Normal 11.7-15.5 [facility] Comment on above: Performed By: #### A PARUL, 5124-3, 72876-2, 19139-5, 78713-4 #### [facility] ([id number]) [address], [address] [place] [address] MCH (RBC) [Entitic mass] 30.2 pg Normal 27-34 [facility] Comment on above: Performed By: #### A PARUL, 5124-3, 57857-3, 04380-8, 53068-3 #### [facility] ([id number]) [address], [address] [place] [address] MCHC (RBC) [Mass/Vol] 34.0 g/dL Normal 32-36 [facility] Comment on above: Performed By: #### A CA, 5124-3, 28410-5, 82293-9, 33529-3 #### [facility] ([id number]) [address], [address] [place] [address] MCV (RBC) [Entitic vol] 89 fL Normal 80-100 [facility] Comment on above: Performed By: #### A PARUL, 5124-3, 23457-0, 00886-4, 24988-5 #### [facility] ([id number]) [address], [address] [place] [address] Platelet mean volume (Bld) [Entitic vol] 8.2 fL Normal 7-12 [facility] Comment on above: Performed By: #### A CA, 5124-3, 21625-0, 66420-3, 08685-1 #### [facility] ([id number]) [address], [address] [place] [address] Platelets (Bld) [#/Vol] 410 10*3/uL Normal 150-450 [facility] Comment on above: Performed By: #### A CA, 5124-3, 18899-1, 73083-5, 34253-4 #### [facility] ([id number]) [address], [address] [place] [address] RBC COUNT 4.28 X10E12/L Normal 3.80-5.20 [facility] Comment on above: Performed By: #### A CA, 5124-3, 27840-3, 25566-3, 72502-8 #### [facility] ([id number]) [address], [address] [place] [address] WBC (Bld) [#/Vol] 19.3 10*3/uL High 4.0-11.0 [facility] Comment on above: Performed By: #### A CA, 5124-3, 74063-5, 62011-7, 25400-0 #### [facility] ([id number]) [address], [address] [place] [address] COMPREHENSIVE METABOLIC PANE Yasmani 10-09-2023 Albumin [Mass/Vol] 3.6 g/dL Normal 3.2-5.3 [facility] Comment on above: Performed By: #### A CA, 5124-3, 70973-8, 43490-7, 01775-2 #### [facility] ([id number]) [address], [address] [place] [address] ALP [Catalytic activity/Vol] 95 U/L Normal 39-130 [facility] Comment on above: Performed By: #### A CA, 5124-3, 71164-3, 15626-5, 55578-3 #### [facility] ([id number]) [address], [address] [place] [address] ALT [Catalytic activity/Vol] 23 U/L Normal 0-31 [facility] Comment on above: Performed By: #### A CA, 5124-3, 36690-4, 79108-9, 59892-4 #### [facility] ([id number]) [address], [address] [place] [address] Anion gap [Moles/Vol] 15 mmol/L Normal 5-15 [facility] Comment on above: Performed By: #### A CA, 5124-3, 69442-9, 94651-8, 48283-3 #### [facility] ([id number]) [address], [address] [place] [address] AST [Catalytic activity/Vol] 24 U/L Normal 0-41 [facility] Comment on above: Performed By: #### A CA, 5124-3, 62844-6, 40967-3, 58657-7 #### [facility] ([id number]) [address], [address] [place] [address] Bilirubin [Mass/Vol] 0.2 mg/dL Low 0.3-1.2 [facility] Comment on above: Performed By: #### A CA, 5124-3, 61346-7, 56135-4, 22619-7 #### [facility] ([id number]) [address], [address] [place] [address] Calcium [Mass/Vol] 9.3 mg/dL Normal 8.5-10.5 [facility] Comment on above: Performed By: #### A PARUL, 5124-3, 99703-2, 03603-8, 60954-4 #### [facility] ([id number]) [address], [address] [place] [address] Chloride [Moles/Vol] 103 mmol/L Normal 98-109 [facility] Comment on above: Performed By: #### A PARUL, 5124-3, 82625-2, 55188-2, 85275-7 #### [facility] ([id number]) [address], [facility] [address] [place] [address] CO2 [Moles/Vol] 19 mmol/L Low 22-32 [facility] Comment on above: Performed By: #### A PARUL, 5124-3, 17915-7, 04690-8, 90607-8 #### [facility] ([id number]) [address], [address] [address] Creatinine [Mass/Vol] 0.71 mg/dL Normal 0.40-1.00 [facility] Comment on above: Result Comment: METH OD TRACEABLE TO IDMS STANDARD Performed By: #### A PARUL, 5124-3, 71938-8, 65376-4, 92234-2 #### [facility] ([id number]) [address], [facility] [address] [place] [address] eGFR (CKD-EPI) NON-RACE DEPENDENT >90 Normal >59 [facility] Comment on above: Result Comment: Reported eGFR is based on the CKD-EPI 2020 equation that does not use a race coefficient. Performed By: #### A PARUL, 5124-3, 62114-9, 02511-9, 79414-2 #### [facility] ([id number]) [address], [address] [place] [address] Glucose [Mass/Vol] 122 mg/dL High 65-99 [facility] Comment on above: Performed By: #### A PARUL, 5124-3, 97938-6, 93481-9, 06762-0 #### [facility] ([id number]) [address], [address] [place] [address] Potassium [Moles/Vol] 4.0 mmol/L Normal 3.5-5.0 [facility] Comment on above: Performed By: #### A CA, 5124-3, 38366-9, 05433-8, 22674-8 #### [facility] ([id number]) [address], [address] [place] [address] Protein [Mass/Vol] 7.0 g/dL Normal 6.0-8.0 [facility] Comment on above: Performed By: #### A CA, 5124-3, 21142-4, 36931-4, 45680-0 #### [facility] ([id number]) [address], [address] [place] [address] Sodium [Moles/Vol] 137 mmol/L Normal 134-146 [facility] Comment on above: Performed By: #### A CA, 5124-3, 90918-8, 33330-0, 67073-9 #### [facility] ([id number]) [address], [address] [place] [address] Urea nitrogen [Mass/Vol] 20 mg/dL Normal 5-23 [facility] Comment on above: Performed By: #### A CA, 5124-3, 17789-6, 84037-8, 42747-9 #### [facility] ([id number]) [address], [address] [place] [address] Surgical Pathologyon 024 Surgical Pathology Normal [facility] Comment on above: Result Comment: [facility] [address] [place], [place] [address] Surgical Pathology Consultation Patient Name:SISI CHAKRABORTY:1995 (Age: 28)Gender:FTaken:4Reported:4Physician(s):Sue Holland M.D. ([id number])Copy To:Jak Stollash [facility]ression #:[id number]. Rec. #:[id number]: #[id number] Final Pathologic Diagnosis Placenta: small for gestational age third trimester placenta (193 g, <10th percentile for gestational age of 30 weeks), demonstrating focal placental infarcts, incomplete adaptation for (maternal decidual vasculopathy) and increased syncytial knots. Negative membranes. Unremarkable three-vessel umbilical cord with eccentric insertion. Report Electronically Signed Out ao/10/27/2023celine Steward MD Interpretation [place] [address], License number: [id number]. Clinical History Pre-eclampsia severe, with delivery. Gross Description Received in formalin labeled CHAKRABORTYgreg : Single MEMBRANES: Placenta Sac Rupture (cm from margin): Marginal Color: Blue-holguin Other Characteristics: No Insertion Site: Marginal 100% CORD: Appearance: Unremarkable Site of Insertion: Eccentric Length & Diameter (cm): 15 x 1 cm True Knots: No Number of vessels: 3 GENERAL: Trimmed Weight (grams): 193 g Complete: Yes Size 1 x Size 2 x Size 3 (cm): 13.5 x 13 x 2 cm Accessory Lobe(s): No PLACENTAL DISK: Color of Surface: Blue-holguin Sub-amniotic Cyst: No Amnion Nodosum: No Subchorionic Fibrin: Yes, up to 0.2 cm in thickness, less than 5% Appearance of Cut Surface: There are two paramarginally located, holguin-dillon to pink, nonlaminated rubbery areas, 0.4 and 1.2 cm in greatest dimension (less than 5%). Maternal floor: Unremarkable Retroplacental hematoma: No Cassettes: A Rolled membrane, two sections of cord B-D Soap Grinder sections of placenta (to include rubbery areas in cassette C???D) E Additional rolled membrane (5, ss, [id number],A-E, m5) BALDEMAR canales/4/10/2024AO Specimen(s) Received Placenta Fee Codes(s): 1; [address] CBC AND AUTO DIFFon 10-07-19 ABSOLUTE BASOPHIL 0.1 X10E9/L Normal 0.0-0.2 [facility] Comment on above: Performed By: #### A CA, 5124-3, 21899-5, 80909-6, 34263-6 #### [facility] ([id number]) [address], [facility] [address] [place] [address] ABSOLUTE NEUTROPHIL 9.6 X10E9/L High 1.5-6.6 [facility] Comment on above: Performed By: #### A PARUL, 5124-3, 63043-0, 82271-9, 23427-2 #### [facility] ([id number]) [address], [facility] [address] [place] [address] Basophils/100 WBC (Bld) 0.7 % Normal [facility] Comment on above: Performed By: #### A CA, 5124-3, 19237-2, 94503-8, 03440-3 #### [facility] ([id number]) [address], [address] [address] Eosinophils (Bld) [#/Vol] 0.2 10*3/uL Normal 0.0-0.4 [facility] Comment on above: Performed By: #### A CA, 5124-3, 48003-6, 66585-4, 98972-2 #### [facility] ([id number]) [address] [address] Eosinophils/100 WBC (Bld) 1.5 % Normal [facility] Comment on above: Performed By: #### A CA, 5124-3, 42136-6, 05651-1, 62067-3 #### [facility] ([id number]) [address], [facility] [address] [place] [address] Erythrocyte distribution width (RBC) [Ratio] 12.9 % Normal 11.5-15.0 [facility] Comment on above: Performed By: #### A CA, 5124-3, 08593-9, 45148-1, 11340-2 #### [facility] ([id number]) [address], [address] [place] [address] Hematocrit (Bld) [Volume fraction] 38.9 % Normal 35-47 [facility] Comment on above: Performed By: #### A CA, 5124-3, 65134-3, 63884-6, 10004-7 #### [facility] ([id number]) [address], [facility] [address] [place] [address] Hemoglobin (Bld) [Mass/Vol] 13.1 g/dL Normal 11.7-15.5 [facility] Comment on above: Performed By: #### A PARUL, 5124-3, 19434-4, 84866-6, 75415-7 #### [facility] ([id number]) [address], [address] [place] [address] Lymphocytes (Bld) [#/Vol] 4.8 10*3/uL High 1.0-3.5 [facility] Comment on above: Performed By: #### A PARUL, 5124-3, 29840-0, 71510-6, 13711-2 #### [facility] ([id number]) [address], [address] [place] [address] Lymphocytes/100 WBC (Bld) 30.6 % Normal [facility] Comment on above: Performed By: #### A CA, 5124-3, 34617-8, 62166-0, 07662-0 #### [facility] ([id number]) [address], [address] [place] [address] MCH (RBC) [Entitic mass] 30.2 pg Normal 27-34 [facility] Comment on above: Performed By: #### A CA, 5124-3, 57797-0, 34950-5, 84461-9 #### [facility] ([id number]) [address], [facility] [address] [place] [address] MCHC (RBC) [Mass/Vol] 33.7 g/dL Normal 32-36 [facility] Comment on above: Performed By: #### A CA, 5124-3, 23126-4, 50273-7, 53257-0 #### [facility] ([id number]) [address], [address] [address] MCV (RBC) [Entitic vol] 90 fL Normal 80-100 [facility] Comment on above: Performed By: #### A CA, 5124-3, 81968-3, 63866-5, 53862-7 #### [facility] ([id number]) [address] [address] Monocytes (Bld) [#/Vol] 0.9 10*3/uL Normal 0-0.9 [facility] Comment on above: Performed By: #### A CA, 5124-3, 78039-7, 33794-0, 97421-1 #### [facility] ([id number]) [address] [address] Monocytes/100 WBC (Bld) 6.0 % Normal [facility] Comment on above: Performed By: #### A CA, 5124-3, 78904-2, 96016-5, 52645-9 #### [facility] ([id number]) [address] [address] Neutrophils/100 WBC (Bld) 61.2 % Normal [facility] Comment on above: Performed By: #### A CA, 5124-3, 76205-8, 02985-8, 67823-7 #### [facility] ([id number]) [address] [address] Platelet mean volume (Bld) [Entitic vol] 7.9 fL Normal 7-12 [facility] Comment on above: Performed By: #### A CA, 5124-3, 33432-3, 31935-3, 84408-3 #### [facility] ([id number]) [address] [address] Platelets (Bld) [#/Vol] 385 10*3/uL Normal 150-450 [facility] Comment on above: Performed By: #### A CA, 5124-3, 70916-0, 53166-6, 17623-2 #### [facility] ([id number]) [address] [address] RBC COUNT 4.35 X10E12/L Normal 3.80-5.20 [facility] Comment on above: Performed By: #### A PARUL, 5124-3, 67686-1, 89601-5, 00989-7 #### [facility] ([id number]) [address] [address] WBC (Bld) [#/Vol] 15.7 10*3/uL High 4.0-11.0 [facility] Comment on above: Performed By: #### A CA, 5124-3, 11965-3, 61644-9, 20444-4 #### [facility] ([id number]) [address] [address] COMPREHENSIVE METABOLIC PANE Yasmani 10-07-2023 Albumin [Mass/Vol] 3.2 g/dL Normal 3.2-5.3 [facility] Comment on above: Performed By: #### A CA, 5124-3, 18476-7, 71135-5, 20051-7 #### [facility] ([id number]) [address] [address] ALP [Catalytic activity/Vol] 73 U/L Normal 39-130 [facility] Comment on above: Performed By: #### A CA, 5124-3, 90431-5, 01318-4, 64154-7 #### [facility] ([id number]) [address], [facility] [address] [place] [address] ALT [Catalytic activity/Vol] 14 U/L Normal 0-31 [facility] Comment on above: Performed By: #### A CA, 5124-3, 84657-2, 90351-7, 28964-4 #### [facility] ([id number]) [address], [facility] [address] [place] [address] Anion gap [Moles/Vol] 10 mmol/L Normal 5-15 [facility] Comment on above: Performed By: #### A CA, 5124-3, 78743-3, 10315-8, 97565-8 #### [facility] ([id number]) [address], [facility] [address] [place] [address] AST [Catalytic activity/Vol] 17 U/L Normal 0-41 [facility] Comment on above: Performed By: #### A CA, 5124-3, 64875-7, 74667-5, 39609-3 #### [facility] ([id number]) [address], [facility] [address] [place] [address] Bilirubin [Mass/Vol] 0.2 mg/dL Low 0.3-1.2 [facility] Comment on above: Performed By: #### A CA, 5124-3, 77606-7, 05706-2, 99989-2 #### [facility] ([id number]) [address], [facility] [address] [place] [address] Calcium [Mass/Vol] 8.9 mg/dL Normal 8.5-10.5 [facility] Comment on above: Performed By: #### A CA, 5124-3, 71011-7, 26727-2, 52706-8 #### [facility] ([id number]) [address], [address] [place], [place] [address] Chloride [Moles/Vol] 104 mmol/L Normal 98-109 [facility] Comment on above: Performed By: #### A CA, 5124-3, 13820-9, 92156-6, 18336-7 #### [facility] ([id number]) [address], [address] [place] [address] CO2 [Moles/Vol] 24 mmol/L Normal 22-32 [facility] Comment on above: Performed By: #### A CA, 5124-3, 09352-2, 41010-1, 04711-3 #### [facility] ([id number]) [address], [address] [address] Creatinine [Mass/Vol] 0.69 mg/dL Normal 0.40-1.00 [facility] Comment on above: Result Comment: METH OD TRACEABLE TO IDMS STANDARD Performed By: #### A CA, 5124-3, 85284-9, 43705-6, 72528-3 #### [facility] ([id number]) [address], [facility] [address] [place] [address] eGFR (CKD-EPI) NON-RACE DEPENDENT >90 Normal >59 [facility] Comment on above: Result Comment: Reported eGFR is based on the CKD-EPI 2020 equation that does not use a race coefficient. Performed By: #### A CA, 5124-3, 11386-4, 09421-1, 38234-6 #### [facility] ([id number]) [address] [address] [place] [address] Glucose [Mass/Vol] 76 mg/dL Normal 65-99 [facility] Comment on above: Performed By: #### A CA, 5124-3, 73330-4, 52385-9, 00871-4 #### [facility] ([id number]) [address], [facility] [address] [place] [address] Potassium [Moles/Vol] 3.9 mmol/L Normal 3.5-5.0 [facility] Comment on above: Performed By: #### A CA, 5124-3, 89935-0, 10591-4, 83003-1 #### [facility] ([id number]) [address], [address] [address] Protein [Mass/Vol] 6.2 g/dL Normal 6.0-8.0 [facility] Comment on above: Performed By: #### A CA, 5124-3, 53221-1, 27882-6, 70631-5 #### [facility] ([id number]) [address] [address] Sodium [Moles/Vol] 138 mmol/L Normal 134-146 [facility] Comment on above: Performed By: #### A CA, 5124-3, 02575-8, 44450-7, 77895-5 #### [facility] ([id number]) [address] [address] Urea nitrogen [Mass/Vol] 17 mg/dL Normal 5-23 [facility] Comment on above: Performed By: #### A CA, 5124-3, 61112-6, 31022-4, 00169-7 #### [facility] ([id number]) [address], [address] [address] CBC AND AUTO DIFFon 10-06-19 24 ABSOLUTE BASOPHIL 0.1 X10E9/L Normal 0.0-0.2 [facility] Comment on above: Performed By: #### A CA, 5124-3, 23250-2, 30377-9, 82377-8 #### [facility] ([id number]) [address] [address] ABSOLUTE NEUTROPHIL 8.4 X10E9/L High 1.5-6.6 [facility] Comment on above: Performed By: #### A CA, 5124-3, 57242-4, 61042-3, 78509-3 #### [facility] ([id number]) [address], [address] [place] [address] Basophils/100 WBC (Bld) 0.4 % Normal [facility] Comment on above: Performed By: #### A CA, 5124-3, 99775-6, 69541-8, 58836-5 #### [facility] ([id number]) [address], [address] [address] Eosinophils (Bld) [#/Vol] 0.2 10*3/uL Normal 0.0-0.4 [facility] Comment on above: Performed By: #### A PARUL, 5124-3, 12976-2, 36968-9, 85517-7 #### [facility] ([id number]) [address], [address] [place] [address] Eosinophils/100 WBC (Bld) 1.5 % Normal [facility] Comment on above: Performed By: #### A PARUL, 5124-3, 94167-1, 18721-4, 04552-8 #### [facility] ([id number]) [address], [facility] [address] [place] [address] Erythrocyte distribution width (RBC) [Ratio] 12.6 % Normal 11.5-15.0 [facility] Comment on above: Performed By: #### A CA, 5124-3, 79503-7, 28587-5, 56837-3 #### [facility] ([id number]) [address], [facility] [address] [place] [address] Hematocrit (Bld) [Volume fraction] 37.4 % Normal 35-47 [facility] Comment on above: Performed By: #### A CA, 5124-3, 90184-0, 32523-5, 28193-8 #### [facility] ([id number]) [address], [address] [place] [address] Hemoglobin (Bld) [Mass/Vol] 13.1 g/dL Normal 11.7-15.5 [facility] Comment on above: Performed By: #### A CA, 5124-3, 33912-8, 15145-0, 78540-0 #### [facility] ([id number]) [address], [facility] [address] [place] [address] Lymphocytes (Bld) [#/Vol] 5.1 10*3/uL High 1.0-3.5 [facility] Comment on above: Performed By: #### A CA, 5124-3, 42075-5, 04449-0, 75219-3 #### [facility] ([id number]) [address], [facility] [address] [place] [address] Lymphocytes/100 WBC (Bld) 34.8 % Normal [facility] Comment on above: Performed By: #### A CA, 5124-3, 47287-3, 65742-8, 71119-1 #### [facility] ([id number]) [address], [facility] [address] [place] [address] MCH (RBC) [Entitic mass] 30.9 pg Normal 27-34 [facility] Comment on above: Performed By: #### A CA, 5124-3, 67689-9, 36165-1, 23570-4 #### [facility] ([id number]) [address], [address] [place] [address] MCHC (RBC) [Mass/Vol] 34.9 g/dL Normal 32-36 [facility] Comment on above: Performed By: #### A CA, 5124-3, 24333-2, 23722-9, 40433-1 #### [facility] ([id number]) [address], [address] [place] [address] MCV (RBC) [Entitic vol] 88 fL Normal 80-100 [facility] Comment on above: Performed By: #### A CA, 5124-3, 46680-0, 70123-8, 02429-0 #### [facility] ([id number]) [address], [facility] [address] [place] [address] Monocytes (Bld) [#/Vol] 0.8 10*3/uL Normal 0-0.9 [facility] Comment on above: Performed By: #### A CA, 5124-3, 78922-7, 23370-5, 35322-4 #### [facility] ([id number]) [address], [facility] [address] [place] [address] Monocytes/100 WBC (Bld) 5.7 % Normal [facility] Comment on above: Performed By: #### A CA, 5124-3, 09353-3, 03102-5, 57885-8 #### [facility] ([id number]) [address] [address] [place] [address] Neutrophils/100 WBC (Bld) 57.6 % Normal [facility] Comment on above: Performed By: #### A CA, 5124-3, 00849-9, 28843-9, 99582-3 #### [facility] ([id number]) [address], [facility] [address] [place] [address] Platelet mean volume (Bld) [Entitic vol] 7.9 fL Normal 7-12 [facility] Comment on above: Performed By: #### A CA, 5124-3, 32910-7, 97080-8, 07273-2 #### [facility] ([id number]) [address], [facility] [address] [place] [address] Platelets (Bld) [#/Vol] 398 10*3/uL Normal 150-450 [facility] Comment on above: Performed By: #### A CA, 5124-3, 97950-0, 03209-2, 20272-1 #### [facility] ([id number]) [address], [address] [place] [address] RBC COUNT 4.23 X10E12/L Normal 3.80-5.20 [facility] Comment on above: Performed By: #### A CA, 5124-3, 87677-1, 95263-6, 94531-4 #### [facility] ([id number]) [address], [address] [place] [address] WBC (Bld) [#/Vol] 14.7 10*3/uL High 4.0-11.0 [facility] Comment on above: Performed By: #### A PARUL, 5124-3, 16674-5, 28495-7, 32808-3 #### [facility] ([id number]) [address], [address] [place] [address] COMPREHENSIVE METABOLIC PANE Yasmani 10-06-2023 Albumin [Mass/Vol] 3.2 g/dL Normal 3.2-5.3 [facility] Comment on above: Performed By: #### A CA, 5124-3, 47645-3, 50207-3, 58562-8 #### [facility] ([id number]) [address], [address] [place] [address] ALP [Catalytic activity/Vol] 71 U/L Normal 39-130 [facility] Comment on above: Performed By: #### A CA, 5124-3, 60081-5, 67111-3, 48866-0 #### [facility] ([id number]) [address], [address] [place] [address] ALT [Catalytic activity/Vol] 12 U/L Normal 0-31 [facility] Comment on above: Performed By: #### A CA, 5124-3, 77583-1, 35641-6, 91382-3 #### [facility] ([id number]) [address], [address] [place] [address] Anion gap [Moles/Vol] 10 mmol/L Normal 5-15 [facility] Comment on above: Performed By: #### A CA, 5124-3, 69627-6, 68517-0, 40985-0 #### [facility] ([id number]) [address], [address] [place] [address] AST [Catalytic activity/Vol] 17 U/L Normal 0-41 [facility] Comment on above: Performed By: #### A CA, 5124-3, 23074-5, 32249-7, 29997-8 #### [facility] ([id number]) [address], [address] [place] [address] Bilirubin [Mass/Vol] 0.3 mg/dL Normal 0.3-1.2 [facility] Comment on above: Performed By: #### A CA, 5124-3, 68521-9, 11588-9, 23661-0 #### [facility] ([id number]) [address], [address] [place] [address] Calcium [Mass/Vol] 9.1 mg/dL Normal 8.5-10.5 [facility] Comment on above: Performed By: #### A CA, 5124-3, 59709-9, 69501-9, 83444-2 #### [facility] ([id number]) [address], [address] [place] [address] Chloride [Moles/Vol] 103 mmol/L Normal 98-109 [facility] Comment on above: Performed By: #### A CA, 5124-3, 12447-0, 79257-1, 55215-7 #### [facility] ([id number]) [address], [address] [place] [address] CO2 [Moles/Vol] 24 mmol/L Normal 22-32 [facility] Comment on above: Performed By: #### A CA, 5124-3, 15024-9, 90751-3, 93577-2 #### [facility] ([id number]) [address], [facility] [address] [place] [address] Creatinine [Mass/Vol] 0.77 mg/dL Normal 0.40-1.00 [facility] Comment on above: Result Comment: METH OD TRACEABLE TO IDMS STANDARD Performed By: #### A PARUL, 5124-3, 76487-8, 88863-7, 08421-8 #### [facility] ([id number]) [address], [address] [address] eGFR (CKD-EPI) NON-RACE DEPENDENT >90 Normal >59 [facility] Comment on above: Result Comment: Reported eGFR is based on the CKD-EPI 2020 equation that does not use a race coefficient. Performed By: #### A PARUL, 5124-3, 36574-6, 41339-0, 74320-8 #### [facility] ([id number]) [address], [facility] [address] [place] [address] Glucose [Mass/Vol] 75 mg/dL Normal 65-99 [facility] Comment on above: Performed By: #### A PARUL, 5124-3, 76375-5, 81813-3, 95360-4 #### [facility] ([id number]) [address] [address] Potassium [Moles/Vol] 4.2 mmol/L Normal 3.5-5.0 [facility] Comment on above: Performed By: #### A CA, 5124-3, 92038-0, 11918-0, 61713-2 #### [facility] ([id number]) [address] [address] [place] [address] Protein [Mass/Vol] 6.3 g/dL Normal 6.0-8.0 [facility] Comment on above: Performed By: #### A CA, 5124-3, 49957-7, 70727-3, 81738-3 #### [facility] ([id number]) [address], [address] [place] [address] Sodium [Moles/Vol] 137 mmol/L Normal 134-146 [facility] Comment on above: Performed By: #### A CA, 5124-3, 31490-2, 29952-1, 04301-8 #### [facility] ([id number]) [address], [address] [address] Urea nitrogen [Mass/Vol] 15 mg/dL Normal 5-23 [facility] Comment on above: Performed By: #### A PARUL, 5124-3, 42908-6, 42179-6, 63771-2 #### [facility] ([id number]) [address], [address] [address] CBC AND AUTO DIFFon 10-05-19 24 ABSOLUTE BASOPHIL 0.1 X10E9/L Normal 0.0-0.2 [facility] Comment on above: Performed By: #### A PARUL, 5124-3, 01304-0, 93620-0, 00433-7 #### [facility] ([id number]) [address], [address] [address] ABSOLUTE NEUTROPHIL 9.6 X10E9/L High 1.5-6.6 [facility] Comment on above: Performed By: #### A CA, 5124-3, 68619-4, 25867-9, 08946-4 #### [facility] ([id number]) [address] [address] Basophils/100 WBC (Bld) 0.4 % Normal [facility] Comment on above: Performed By: #### A CA, 5124-3, 64390-2, 86572-4, 93348-0 #### [facility] ([id number]) [address] [address] [place] [address] Eosinophils (Bld) [#/Vol] 0.2 10*3/uL Normal 0.0-0.4 [facility] Comment on above: Performed By: #### A CA, 5124-3, 17005-9, 08494-5, 01876-6 #### [facility] ([id number]) [address] [address] Eosinophils/100 WBC (Bld) 1.2 % Normal [facility] Comment on above: Performed By: #### A CA, 5124-3, 16813-1, 73487-1, 82313-4 #### [facility] ([id number]) [address] [address] Erythrocyte distribution width (RBC) [Ratio] 13.3 % Normal 11.5-15.0 [facility] Comment on above: Performed By: #### A CA, 5124-3, 70005-5, 61608-3, 74091-8 #### [facility] ([id number]) [address] [address] Hematocrit (Bld) [Volume fraction] 39.9 % Normal 35-47 [facility] Comment on above: Performed By: #### A CA, 5124-3, 54553-6, 86841-0, 42005-6 #### [facility] ([id number]) [address] [address] Hemoglobin (Bld) [Mass/Vol] 13.5 g/dL Normal 11.7-15.5 [facility] Comment on above: Performed By: #### A CA, 5124-3, 66543-0, 82988-9, 26057-9 #### [facility] ([id number]) [address] [address] Lymphocytes (Bld) [#/Vol] 4.3 10*3/uL High 1.0-3.5 [facility] Comment on above: Performed By: #### A CA, 5124-3, 81052-8, 37729-2, 60212-7 #### [facility] ([id number]) [address] [address] Lymphocytes/100 WBC (Bld) 28.8 % Normal [facility] Comment on above: Performed By: #### A PARUL, 5124-3, 07446-5, 70844-1, 21146-1 #### [facility] ([id number]) [address] [address] MCH (RBC) [Entitic mass] 30.0 pg Normal 27-34 [facility] Comment on above: Performed By: #### A PARUL, 5124-3, 75238-5, 46428-9, 50115-3 #### [facility] ([id number]) [address] [address] MCHC (RBC) [Mass/Vol] 34.0 g/dL Normal 32-36 [facility] Comment on above: Performed By: #### A PARUL, 5124-3, 69557-7, 09791-3, 61215-5 #### [facility] ([id number]) [address] [address] MCV (RBC) [Entitic vol] 88 fL Normal 80-100 [facility] Comment on above: Performed By: #### A PARUL, 5124-3, 74879-4, 71710-5, 12018-9 #### [facility] ([id number]) [address] [address] Monocytes (Bld) [#/Vol] 0.8 10*3/uL Normal 0-0.9 [facility] Comment on above: Performed By: #### A CA, 5124-3, 19227-1, 83671-4, 33726-7 #### [facility] ([id number]) [address], [address] [address] Monocytes/100 WBC (Bld) 5.1 % Normal [facility] Comment on above: Performed By: #### A CA, 5124-3, 82029-4, 20196-6, 70872-1 #### [facility] ([id number]) [address], [address] [address] Neutrophils/100 WBC (Bld) 64.5 % Normal [facility] Comment on above: Performed By: #### A CA, 5124-3, 66868-7, 87357-2, 31669-0 #### [facility] ([id number]) [address], [address] [address] Platelet mean volume (Bld) [Entitic vol] 7.9 fL Normal 7-12 [facility] Comment on above: Performed By: #### A CA, 5124-3, 34878-3, 57538-2, 59986-1 #### [facility] ([id number]) [address] [address] Platelets (Bld) [#/Vol] 420 10*3/uL Normal 150-450 [facility] Comment on above: Performed By: #### A CA, 5124-3, 30484-2, 05039-7, 63461-6 #### [facility] ([id number]) [address] [address] RBC COUNT 4.51 X10E12/L Normal 3.80-5.20 [facility] Comment on above: Performed By: #### A CA, 5124-3, 91052-4, 92581-7, 42230-5 #### [facility] ([id number]) [address], [address] [place] [address] WBC (Bld) [#/Vol] 14.8 10*3/uL High 4.0-11.0 [facility] Comment on above: Performed By: #### A CA, 5124-3, 33925-5, 13831-2, 29302-4 #### [facility] ([id number]) [address], [address] [place] [address] COMPREHENSIVE METABOLIC PANE Yasmani 10-05-2023 Albumin [Mass/Vol] 3.4 g/dL Normal 3.2-5.3 [facility] Comment on above: Performed By: #### A CA, 5124-3, 83200-1, 46908-6, 41337-2 #### [facility] ([id number]) [address], [address] [place] [address] ALP [Catalytic activity/Vol] 79 U/L Normal 39-130 [facility] Comment on above: Performed By: #### A CA, 5124-3, 58947-9, 45098-0, 34732-4 #### [facility] ([id number]) [address], [address] [place] [address] ALT [Catalytic activity/Vol] 12 U/L Normal 0-31 [facility] Comment on above: Performed By: #### A CA, 5124-3, 42792-5, 73109-1, 45709-4 #### [facility] ([id number]) [address], [address] [place] [address] Anion gap [Moles/Vol] 10 mmol/L Normal 5-15 [facility] Comment on above: Performed By: #### A CA, 5124-3, 29490-7, 52629-8, 28826-2 #### [facility] ([id number]) [address], [address] [place] [address] AST [Catalytic activity/Vol] 18 U/L Normal 0-41 [facility] Comment on above: Performed By: #### A CA, 5124-3, 12722-4, 53846-2, 74193-4 #### [facility] ([id number]) [address], [address] [place] [address] Bilirubin [Mass/Vol] 0.2 mg/dL Low 0.3-1.2 [facility] Comment on above: Performed By: #### A CA, 5124-3, 77816-6, 40768-1, 70541-8 #### [facility] ([id number]) [address], [facility] [address] [place] [address] Calcium [Mass/Vol] 9.2 mg/dL Normal 8.5-10.5 [facility] Comment on above: Performed By: #### A CA, 5124-3, 06818-6, 36921-4, 38654-5 #### [facility] ([id number]) [address], [address] [place] [address] Chloride [Moles/Vol] 104 mmol/L Normal 98-109 [facility] Comment on above: Performed By: #### A CA, 5124-3, 91011-0, 10784-1, 56677-8 #### [facility] ([id number]) [address], [facility] [address] [place] [address] CO2 [Moles/Vol] 23 mmol/L Normal 22-32 [facility] Comment on above: Performed By: #### A CA, 5124-3, 99551-5, 68903-7, 99413-4 #### [facility] ([id number]) [address], [address] [place] [address] Creatinine [Mass/Vol] 0.78 mg/dL Normal 0.40-1.00 [facility] Comment on above: Result Comment: METH OD TRACEABLE TO IDMS STANDARD Performed By: #### A PARUL, 5124-3, 93854-7, 99509-2, 61037-7 #### [facility] ([id number]) [address] [address] [place] [address] eGFR (CKD-EPI) NON-RACE DEPENDENT >90 Normal >59 [facility] Comment on above: Result Comment: Reported eGFR is based on the CKD-EPI 2020 equation that does not use a race coefficient. Performed By: #### A PARUL, 5124-3, 92899-5, 32090-8, 00990-3 #### [facility] ([id number]) [address], [facility] [address] [place] [address] Glucose [Mass/Vol] 93 mg/dL Normal 65-99 [facility] Comment on above: Performed By: #### A PARUL, 5124-3, 81387-9, 12819-7, 23046-8 #### [facility] ([id number]) [address], [address] [address] Potassium [Moles/Vol] 3.9 mmol/L Normal 3.5-5.0 [facility] Comment on above: Performed By: #### A PARUL, 5124-3, 47166-7, 42525-9, 26280-8 #### [facility] ([id number]) [address] [address] [place] [address] Protein [Mass/Vol] 6.5 g/dL Normal 6.0-8.0 [facility] Comment on above: Performed By: #### A PARUL, 5124-3, 31835-6, 47047-2, 79750-7 #### [facility] ([id number]) [address] [address] [place] [address] Sodium [Moles/Vol] 137 mmol/L Normal 134-146 [facility] Comment on above: Performed By: #### A PARUL, 5124-3, 91334-1, 64307-8, 39358-3 #### [facility] ([id number]) [address] [address] Urea nitrogen [Mass/Vol] 15 mg/dL Normal 5-23 [facility] Comment on above: Performed By: #### A CA, 5124-3, 07024-7, 38127-8, 22801-5 #### [facility] ([id number]) [address], [address] [address] CBC AND AUTO DIFFon 10-04-19 ABSOLUTE BASOPHIL 0.1 X10E9/L Normal 0.0-0.2 [facility] Comment on above: Performed By: #### A PARUL, 5124-3, 76373-4, 46754-3, 07166-2 #### [facility] ([id number]) [address] [address] ABSOLUTE NEUTROPHIL 8.9 X10E9/L High 1.5-6.6 [facility] Comment on above: Performed By: #### A PARUL, 5124-3, 10334-1, 66556-3, 08456-1 #### [facility] ([id number]) [address] [address] Basophils/100 WBC (Bld) 0.4 % Normal [facility] Comment on above: Performed By: #### A CA, 5124-3, 11567-6, 11694-2, 33539-4 #### [facility] ([id number]) [address] [address] Eosinophils (Bld) [#/Vol] 0.2 10*3/uL Normal 0.0-0.4 [facility] Comment on above: Performed By: #### A CA, 5124-3, 71029-3, 32986-9, 35791-7 #### [facility] ([id number]) [address] [place] [address] Eosinophils/100 WBC (Bld) 1.5 % Normal [facility] Comment on above: Performed By: #### A PARUL, 5124-3, 02064-5, 96509-9, 20425-7 #### [facility] ([id number]) [address] [address] Erythrocyte distribution width (RBC) [Ratio] 12.8 % Normal 11.5-15.0 [facility] Comment on above: Performed By: #### A PARUL, 5124-3, 23676-4, 74112-0, 20779-9 #### [facility] ([id number]) [address] [address] Hematocrit (Bld) [Volume fraction] 39.6 % Normal 35-47 [facility] Comment on above: Performed By: #### A PARUL, 5124-3, 34559-7, 45074-9, 97556-1 #### [facility] ([id number]) [address] [address] Hemoglobin (Bld) [Mass/Vol] 13.1 g/dL Normal 11.7-15.5 [facility] Comment on above: Performed By: #### A PARUL, 5124-3, 70400-9, 25329-4, 91211-9 #### [facility] ([id number]) [address] [address] Lymphocytes (Bld) [#/Vol] 5.2 10*3/uL High 1.0-3.5 [facility] Comment on above: Performed By: #### A PARUL, 5124-3, 05209-8, 66308-9, 50007-4 #### [facility] ([id number]) [address] [address] Lymphocytes/100 WBC (Bld) 34.0 % Normal [facility] Comment on above: Performed By: #### A CA, 5124-3, 88083-0, 91950-7, 67887-1 #### [facility] ([id number]) [address] [address] MCH (RBC) [Entitic mass] 30.1 pg Normal 27-34 [facility] Comment on above: Performed By: #### A CA, 5124-3, 13890-5, 28697-6, 44474-0 #### [facility] ([id number]) [address], [facility] [address] [place] [address] MCHC (RBC) [Mass/Vol] 33.2 g/dL Normal 32-36 [facility] Comment on above: Performed By: #### A CA, 5124-3, 50464-4, 46607-5, 90658-0 #### [facility] ([id number]) [address], [address] [address] MCV (RBC) [Entitic vol] 91 fL Normal 80-100 [facility] Comment on above: Performed By: #### A CA, 5124-3, 52273-1, 57232-6, 23077-3 #### [facility] ([id number]) [address] [address] Monocytes (Bld) [#/Vol] 0.8 10*3/uL Normal 0-0.9 [facility] Comment on above: Performed By: #### A CA, 5124-3, 87716-9, 84946-2, 29623-1 #### [facility] ([id number]) [address] [address] Monocytes/100 WBC (Bld) 5.3 % Normal [facility] Comment on above: Performed By: #### A CA, 5124-3, 85188-5, 22284-6, 02434-1 #### [facility] ([id number]) [address], [address] [place], [place] [address] Neutrophils/100 WBC (Bld) 58.8 % Normal [facility] Comment on above: Performed By: #### A CA, 5124-3, 16067-2, 17399-0, 57103-2 #### [facility] ([id number]) [address], [facility] [address] [place] [address] Platelet mean volume (Bld) [Entitic vol] 8.3 fL Normal 7-12 [facility] Comment on above: Performed By: #### A PARUL, 5124-3, 23216-6, 84442-3, 82813-5 #### [facility] ([id number]) [address] [address] [place] [address] Platelets (Bld) [#/Vol] 386 10*3/uL Normal 150-450 [facility] Comment on above: Performed By: #### A CA, 5124-3, 39933-0, 93801-8, 01801-0 #### [facility] ([id number]) [address] [address] [place] [address] RBC COUNT 4.37 X10E12/L Normal 3.80-5.20 [facility] Comment on above: Performed By: #### A PARUL, 5124-3, 84498-5, 08792-3, 30107-1 #### [facility] ([id number]) [address], [address] [place] [address] WBC (Bld) [#/Vol] 15.2 10*3/uL High 4.0-11.0 [facility] Comment on above: Performed By: #### A CA, 5124-3, 49929-9, 65329-6, 10306-9 #### [facility] ([id number]) [address], [address] [place] [address] COMPREHENSIVE METABOLIC PANE Yasmani 10-04-2023 Albumin [Mass/Vol] 3.2 g/dL Normal 3.2-5.3 [facility] Comment on above: Performed By: #### A PARUL, 5124-3, 89392-0, 44913-8, 18135-8 #### [facility] ([id number]) [address], [address] [place] [address] ALP [Catalytic activity/Vol] 70 U/L Normal 39-130 [facility] Comment on above: Performed By: #### A CA, 5124-3, 44476-0, 03316-1, 10403-0 #### [facility] ([id number]) [address], [facility] [address] [place] [address] ALT [Catalytic activity/Vol] 12 U/L Normal 0-31 [facility] Comment on above: Performed By: #### A PARUL, 5124-3, 74536-0, 92632-8, 49190-5 #### [facility] ([id number]) [address], [facility] [address] [place] [address] Anion gap [Moles/Vol] 10 mmol/L Normal 5-15 [facility] Comment on above: Performed By: #### A PARUL, 5124-3, 68497-2, 88279-0, 63787-9 #### [facility] ([id number]) [address], [facility] [address] [place] [address] AST [Catalytic activity/Vol] 19 U/L Normal 0-41 [facility] Comment on above: Performed By: #### A CA, 5124-3, 89330-8, 69670-9, 19979-1 #### [facility] ([id number]) [address], [facility] [address] [place] [address] Bilirubin [Mass/Vol] 0.2 mg/dL Low 0.3-1.2 [facility] Comment on above: Performed By: #### A CA, 5124-3, 12604-4, 91571-0, 15039-0 #### [facility] ([id number]) [address] [address] [place] [address] Calcium [Mass/Vol] 9.0 mg/dL Normal 8.5-10.5 [facility] Comment on above: Performed By: #### A CA, 5124-3, 51126-3, 24923-8, 18052-7 #### [facility] ([id number]) [address] [address] Chloride [Moles/Vol] 105 mmol/L Normal 98-109 [facility] Comment on above: Performed By: #### A CA, 5124-3, 71739-5, 37821-6, 89694-2 #### [facility] ([id number]) [address] [address] CO2 [Moles/Vol] 24 mmol/L Normal 22-32 [facility] Comment on above: Performed By: #### A CA, 5124-3, 26320-2, 04233-0, 75510-4 #### [facility] ([id number]) [address] [address] Creatinine [Mass/Vol] 0.77 mg/dL Normal 0.40-1.00 [facility] Comment on above: Result Comment: METH OD TRACEABLE TO IDMS STANDARD Performed By: #### A CA, 5124-3, 21426-2, 62474-6, 80861-5 #### [facility] ([id number]) [address] [address] eGFR (CKD-EPI) NON-RACE DEPENDENT >90 Normal >59 [facility] Comment on above: Result Comment: Reported eGFR is based on the CKD-EPI 2020 equation that does not use a race coefficient. Performed By: #### A CA, 5124-3, 78646-7, 24918-1, 09104-7 #### [facility] ([id number]) [address], [address] [place] [address] Glucose [Mass/Vol] 71 mg/dL Normal 65-99 [facility] Comment on above: Performed By: #### A CA, 5124-3, 92579-6, 12480-0, 28466-2 #### [facility] ([id number]) [address], [address] [place] [address] Potassium [Moles/Vol] 4.0 mmol/L Normal 3.5-5.0 [facility] Comment on above: Performed By: #### A CA, 5124-3, 67005-8, 09642-8, 33865-1 #### [facility] ([id number]) [address], [address] [place] [address] Protein [Mass/Vol] 6.3 g/dL Normal 6.0-8.0 [facility] Comment on above: Performed By: #### A CA, 5124-3, 38274-0, 58927-1, 85642-4 #### [facility] ([id number]) [address], [address] [place] [address] Sodium [Moles/Vol] 139 mmol/L Normal 134-146 [facility] Comment on above: Performed By: #### A CA, 5124-3, 22942-6, 52776-1, 79434-3 #### [facility] ([id number]) [address], [address] [place] [address] Urea nitrogen [Mass/Vol] 15 mg/dL Normal 5-23 [facility] Comment on above: Performed By: #### A CA, 5124-3, 72238-7, 38978-7, 49592-5 #### [facility] ([id number]) [address], [address] [place] [address] CBC AND AUTO DIFFon 03--20 24 ABSOLUTE BASOPHIL 0.1 X10E9/L Normal 0.0-0.2 [facility] Comment on above: Performed By: #### A CA, 5124-3, 58022-5, 43920-0, 12312-5 #### [facility] ([id number]) [address] [address] [place] [address] ABSOLUTE NEUTROPHIL 9.5 X10E9/L High 1.5-6.6 [facility] Comment on above: Performed By: #### A CA, 5124-3, 79810-5, 03643-3, 52723-9 #### [facility] ([id number]) [address], [address] [address] Basophils/100 WBC (Bld) 0.4 % Normal [facility] Comment on above: Performed By: #### A PARUL, 5124-3, 49998-7, 73228-1, 48792-6 #### [facility] ([id number]) [address], [address] [address] Eosinophils (Bld) [#/Vol] 0.1 10*3/uL Normal 0.0-0.4 [facility] Comment on above: Performed By: #### A PARUL, 5124-3, 01578-1, 52452-1, 60089-7 #### [facility] ([id number]) [address], [address] [address] Eosinophils/100 WBC (Bld) 0.8 % Normal [facility] Comment on above: Performed By: #### A CA, 5124-3, 58598-2, 50097-5, 43897-8 #### [facility] ([id number]) [address], [facility] [address] [place] [address] Erythrocyte distribution width (RBC) [Ratio] 12.9 % Normal 11.5-15.0 [facility] Comment on above: Performed By: #### A CA, 5124-3, 00124-9, 35874-5, 69851-0 #### [facility] ([id number]) [address] [address] [place] [address] Hematocrit (Bld) [Volume fraction] 39.2 % Normal 35-47 [facility] Comment on above: Performed By: #### A CA, 5124-3, 35455-8, 70616-0, 22820-3 #### [facility] ([id number]) [address], [address] [address] Hemoglobin (Bld) [Mass/Vol] 13.0 g/dL Normal 11.7-15.5 [facility] Comment on above: Performed By: #### A CA, 5124-3, 32879-2, 82027-9, 29223-4 #### [facility] ([id number]) [address], [address] [address] Lymphocytes (Bld) [#/Vol] 4.4 10*3/uL High 1.0-3.5 [facility] Comment on above: Performed By: #### A CA, 5124-3, 38150-5, 37294-8, 06109-1 #### [facility] ([id number]) [address] [address] Lymphocytes/100 WBC (Bld) 29.4 % Normal [facility] Comment on above: Performed By: #### A CA, 5124-3, 95508-7, 61701-1, 05942-5 #### [facility] ([id number]) [address] [address] MCH (RBC) [Entitic mass] 30.1 pg Normal 27-34 [facility] Comment on above: Performed By: #### A CA, 5124-3, 01320-0, 94613-8, 05103-7 #### [facility] ([id number]) [address], [facility] [address] [place] [address] MCHC (RBC) [Mass/Vol] 33.2 g/dL Normal 32-36 [facility] Comment on above: Performed By: #### A CA, 5124-3, 45796-5, 17161-8, 62887-5 #### [facility] ([id number]) [address], [facility] [address] [place] [address] MCV (RBC) [Entitic vol] 91 fL Normal 80-100 [facility] Comment on above: Performed By: #### A CA, 5124-3, 41482-4, 89453-3, 08509-6 #### [facility] ([id number]) [address], [facility] [address] [place] [address] Monocytes (Bld) [#/Vol] 0.9 10*3/uL Normal 0-0.9 [facility] Comment on above: Performed By: #### A CA, 5124-3, 91689-9, 93262-9, 02432-0 #### [facility] ([id number]) [address] [address] [place] [address] Monocytes/100 WBC (Bld) 6.2 % Normal [facility] Comment on above: Performed By: #### A CA, 5124-3, 30387-9, 42070-7, 29887-2 #### [facility] ([id number]) [address] [address] [place] [address] Neutrophils/100 WBC (Bld) 63.2 % Normal [facility] Comment on above: Performed By: #### A CA, 5124-3, 15265-1, 89278-6, 72162-1 #### [facility] ([id number]) [address], [address] [place] [address] Platelet mean volume (Bld) [Entitic vol] 8.5 fL Normal 7-12 [facility] Comment on above: Performed By: #### A CA, 5124-3, 15841-6, 37350-1, 34702-5 #### [facility] ([id number]) [address], [address] [place] [address] Platelets (Bld) [#/Vol] 359 10*3/uL Normal 150-450 [facility] Comment on above: Performed By: #### A CA, 5124-3, 64547-7, 33762-2, 42397-6 #### [facility] ([id number]) [address], [address] [place] [address] RBC COUNT 4.34 X10E12/L Normal 3.80-5.20 [facility] Comment on above: Performed By: #### A CA, 5124-3, 75824-1, 74879-4, 41979-3 #### [facility] ([id number]) [address], [address] [place] [address] WBC (Bld) [#/Vol] 14.9 10*3/uL High 4.0-11.0 [facility] Comment on above: Performed By: #### A CA, 5124-3, 62548-9, 80225-1, 78258-6 #### [facility] ([id number]) [address], [address] [place] [address] COMPREHENSIVE METABOLIC PANE Yasmani 10-03-2023 Albumin [Mass/Vol] 3.3 g/dL Normal 3.2-5.3 [facility] Comment on above: Performed By: #### A CA, 5124-3, 91876-3, 09481-3, 76774-0 #### [facility] ([id number]) [address], [address] [place] [address] ALP [Catalytic activity/Vol] 70 U/L Normal 39-130 [facility] Comment on above: Performed By: #### A CA, 5124-3, 28941-7, 80200-8, 19521-5 #### [facility] ([id number]) [address], [address] [place] [address] ALT [Catalytic activity/Vol] 10 U/L Normal 0-31 [facility] Comment on above: Performed By: #### A CA, 5124-3, 48675-4, 96659-8, 12319-0 #### [facility] ([id number]) [address], [address] [place] [address] Anion gap [Moles/Vol] 12 mmol/L Normal 5-15 [facility] Comment on above: Performed By: #### A CA, 5124-3, 18969-1, 97354-1, 02113-8 #### [facility] ([id number]) [address], [address] [place] [address] AST [Catalytic activity/Vol] 15 U/L Normal 0-41 [facility] Comment on above: Performed By: #### A CA, 5124-3, 71632-6, 22629-3, 69582-2 #### [facility] ([id number]) [address], [address] [place] [address] Bilirubin [Mass/Vol] 0.3 mg/dL Normal 0.3-1.2 [facility] Comment on above: Performed By: #### A CA, 5124-3, 77167-5, 59060-9, 67903-3 #### [facility] ([id number]) [address], [address] [place] [address] Calcium [Mass/Vol] 9.1 mg/dL Normal 8.5-10.5 [facility] Comment on above: Performed By: #### A CA, 5124-3, 93287-0, 11930-5, 01016-5 #### [facility] ([id number]) [address], [facility] [address] [place] [address] Chloride [Moles/Vol] 103 mmol/L Normal 98-109 [facility] Comment on above: Performed By: #### A CA, 5124-3, 61218-3, 34505-2, 86300-4 #### [facility] ([id number]) [address], [facility] [address] [place] [address] CO2 [Moles/Vol] 23 mmol/L Normal 22-32 [facility] Comment on above: Performed By: #### A CA, 5124-3, 91222-2, 48132-6, 69050-1 #### [facility] ([id number]) [address] [address] Creatinine [Mass/Vol] 0.83 mg/dL Normal 0.40-1.00 [facility] Comment on above: Result Comment: METH OD TRACEABLE TO IDMS STANDARD Performed By: #### A CA, 5124-3, 36527-4, 21041-4, 62986-5 #### [facility] ([id number]) [address] [address] eGFR (CKD-EPI) NON-RACE DEPENDENT >90 Normal >59 [facility] Comment on above: Result Comment: Reported eGFR is based on the CKD-EPI 2020 equation that does not use a race coefficient. Performed By: #### A CA, 5124-3, 66731-9, 82786-3, 47567-7 #### [facility] ([id number]) [address] [address] Glucose [Mass/Vol] 68 mg/dL Normal 65-99 [facility] Comment on above: Performed By: #### A CA, 5124-3, 89044-2, 52169-5, 55804-6 #### [facility] ([id number]) [address] [address] [place] [address] Potassium [Moles/Vol] 3.8 mmol/L Normal 3.5-5.0 [facility] Comment on above: Performed By: #### A PARUL, 5124-3, 34245-1, 69108-8, 53304-0 #### [facility] ([id number]) [address], [address] [place] [address] Protein [Mass/Vol] 6.4 g/dL Normal 6.0-8.0 [facility] Comment on above: Performed By: #### A PARUL, 5124-3, 79796-0, 35305-1, 08227-3 #### [facility] ([id number]) [address], [facility] [address] [place] [address] Sodium [Moles/Vol] 138 mmol/L Normal 134-146 [facility] Comment on above: Performed By: #### A PARUL, 5124-3, 76917-8, 89353-8, 15249-5 #### [facility] ([id number]) [address], [address] [place] [address] Urea nitrogen [Mass/Vol] 18 mg/dL Normal 5-23 [facility] Comment on above: Performed By: #### A PARUL, 5124-3, 34206-5, 00990-9, 25774-1 #### [facility] ([id number]) [address], [facility] [address] [place] [address] CBC AND AUTO DIFFon 10-02-19 24 ABSOLUTE BASOPHIL 0.0 X10E9/L Normal 0.0-0.2 [facility] Comment on above: Performed By: #### A PARUL, 5124-3, 53419-8, 32751-6, 37622-3 #### [facility] ([id number]) [address], [address] [place] [address] ABSOLUTE NEUTROPHIL 12.3 X10E9/L High 1.5-6.6 [facility] Comment on above: Performed By: #### A CA, 5124-3, 79804-5, 89655-1, 68062-5 #### [facility] ([id number]) [address], [address] [place] [address] Basophils/100 WBC (Bld) 0.3 % Normal [facility] Comment on above: Performed By: #### A CA, 5124-3, 45386-1, 41013-2, 51840-3 #### [facility] ([id number]) [address], [facility] [address] [place] [address] Eosinophils (Bld) [#/Vol] 0.1 10*3/uL Normal 0.0-0.4 [facility] Comment on above: Performed By: #### A CA, 5124-3, 60937-4, 69498-6, 52652-2 #### [facility] ([id number]) [address], [address] [place] [address] Eosinophils/100 WBC (Bld) 0.7 % Normal [facility] Comment on above: Performed By: #### A CA, 5124-3, 95121-6, 79742-9, 50954-5 #### [facility] ([id number]) [address] [address] [place] [address] Erythrocyte distribution width (RBC) [Ratio] 13.3 % Normal 11.5-15.0 [facility] Comment on above: Performed By: #### A CA, 5124-3, 15082-3, 26772-8, 06378-1 #### [facility] ([id number]) [address] [address] [place] [address] Hematocrit (Bld) [Volume fraction] 40.3 % Normal 35-47 [facility] Comment on above: Performed By: #### A CA, 5124-3, 49076-0, 28274-7, 52540-5 #### [facility] ([id number]) [address], [address] [place] [address] Hemoglobin (Bld) [Mass/Vol] 13.4 g/dL Normal 11.7-15.5 [facility] Comment on above: Performed By: #### A CA, 5124-3, 29232-0, 26321-4, 54462-3 #### [facility] ([id number]) [address], [facility] [address] [place] [address] Lymphocytes (Bld) [#/Vol] 3.0 10*3/uL Normal 1.0-3.5 [facility] Comment on above: Performed By: #### A PARUL, 5124-3, 48806-4, 93770-6, 90853-3 #### [facility] ([id number]) [address] [address] Lymphocytes/100 WBC (Bld) 18.3 % Normal [facility] Comment on above: Performed By: #### A CA, 5124-3, 96433-6, 45632-2, 02269-9 #### [facility] ([id number]) [address] [address] [place] [address] MCH (RBC) [Entitic mass] 30.1 pg Normal 27-34 [facility] Comment on above: Performed By: #### A CA, 5124-3, 03666-6, 86264-2, 37013-3 #### [facility] ([id number]) [address] [address] [place] [address] MCHC (RBC) [Mass/Vol] 33.3 g/dL Normal 32-36 [facility] Comment on above: Performed By: #### A CA, 5124-3, 49961-2, 46567-2, 94987-8 #### [facility] ([id number]) [address], [facility] [address] [place] [address] MCV (RBC) [Entitic vol] 90 fL Normal 80-100 [facility] Comment on above: Performed By: #### A CA, 5124-3, 02758-4, 13899-7, 31937-3 #### [facility] ([id number]) [address], [address] [place] [address] Monocytes (Bld) [#/Vol] 1.1 10*3/uL High 0-0.9 [facility] Comment on above: Performed By: #### A CA, 5124-3, 85113-6, 52633-0, 65808-1 #### [facility] ([id number]) [address], [address] [address] Monocytes/100 WBC (Bld) 6.5 % Normal [facility] Comment on above: Performed By: #### A CA, 5124-3, 05629-2, 54608-2, 22967-4 #### [facility] ([id number]) [address], [address] [address] Neutrophils/100 WBC (Bld) 74.2 % Normal [facility] Comment on above: Performed By: #### A CA, 5124-3, 46860-3, 27749-3, 96550-0 #### [facility] ([id number]) [address], [address] [place] [address] Platelet mean volume (Bld) [Entitic vol] 8.1 fL Normal 7-12 [facility] Comment on above: Performed By: #### A CA, 5124-3, 10481-2, 97299-0, 76811-8 #### [facility] ([id number]) [address], [address] [place] [address] Platelets (Bld) [#/Vol] 353 10*3/uL Normal 150-450 [facility] Comment on above: Performed By: #### A CA, 5124-3, 47283-6, 55613-8, 48052-9 #### [facility] ([id number]) [address], [address] [place] [address] RBC COUNT 4.46 X10E12/L Normal 3.80-5.20 [facility] Comment on above: Performed By: #### A CA, 5124-3, 41938-2, 58130-3, 07786-2 #### [facility] ([id number]) [address], [address] [place] [address] WBC (Bld) [#/Vol] 16.6 10*3/uL High 4.0-11.0 [facility] Comment on above: Performed By: #### A CA, 5124-3, 32146-2, 76912-8, 16071-3 #### [facility] ([id number]) [address], [address] [place] [address] COMPREHENSIVE METABOLIC PANE Yasmani 10-02-2023 Albumin [Mass/Vol] 3.2 g/dL Normal 3.2-5.3 [facility] Comment on above: Performed By: #### A CA, 5124-3, 72236-5, 30170-7, 54549-2 #### [facility] ([id number]) [address], [address] [place] [address] ALP [Catalytic activity/Vol] 68 U/L Normal 39-130 [facility] Comment on above: Performed By: #### A CA, 5124-3, 94940-1, 14605-1, 81904-1 #### [facility] ([id number]) [address], [address] [place] [address] ALT [Catalytic activity/Vol] 12 U/L Normal 0-31 [facility] Comment on above: Performed By: #### A CA, 5124-3, 82772-7, 04906-9, 36512-9 #### [facility] ([id number]) [address], [address] [place] [address] Anion gap [Moles/Vol] 12 mmol/L Normal 5-15 [facility] Comment on above: Performed By: #### A CA, 5124-3, 44242-9, 22644-8, 87157-2 #### [facility] ([id number]) [address], [address] [place] [address] AST [Catalytic activity/Vol] 18 U/L Normal 0-41 [facility] Comment on above: Performed By: #### A CA, 5124-3, 29226-3, 36212-1, 10791-6 #### [facility] ([id number]) [address], [address] [place] [address] Bilirubin [Mass/Vol] 0.3 mg/dL Normal 0.3-1.2 [facility] Comment on above: Performed By: #### A CA, 5124-3, 41921-7, 09776-8, 34525-7 #### [facility] ([id number]) [address], [address] [place] [address] Calcium [Mass/Vol] 7.9 mg/dL Low 8.5-10.5 [facility] Comment on above: Performed By: #### A CA, 5124-3, 93903-0, 82269-0, 40984-1 #### [facility] ([id number]) [address], [address] [place] [address] Chloride [Moles/Vol] 101 mmol/L Normal 98-109 [facility] Comment on above: Performed By: #### A CA, 5124-3, 60788-1, 62026-8, 59409-5 #### [facility] ([id number]) [address], [address] [place] [address] CO2 [Moles/Vol] 23 mmol/L Normal 22-32 [facility] Comment on above: Performed By: #### A CA, 5124-3, 16444-0, 12407-0, 80733-0 #### [facility] ([id number]) [address], [facility] [address] [place] [address] Creatinine [Mass/Vol] 0.74 mg/dL Normal 0.40-1.00 [facility] Comment on above: Result Comment: METH OD TRACEABLE TO IDMS STANDARD Performed By: #### A CA, 5124-3, 83112-8, 04690-5, 34228-1 #### [facility] ([id number]) [address], [facility] [address] [place] [address] eGFR (CKD-EPI) NON-RACE DEPENDENT >90 Normal >59 [facility] Comment on above: Result Comment: Reported eGFR is based on the CKD-EPI 2020 equation that does not use a race coefficient. Performed By: #### A CA, 5124-3, 29459-4, 16033-1, 04500-7 #### [facility] ([id number]) [address], [facility] [address] [place] [address] Glucose [Mass/Vol] 83 mg/dL Normal 65-99 [facility] Comment on above: Performed By: #### A CA, 5124-3, 99620-5, 09874-9, 50770-7 #### [facility] ([id number]) [address], [address] [address] Potassium [Moles/Vol] 4.1 mmol/L Normal 3.5-5.0 [facility] Comment on above: Performed By: #### A CA, 5124-3, 31199-3, 76848-3, 38511-0 #### [facility] ([id number]) [address], [facility] [address] [place] [address] Protein [Mass/Vol] 6.4 g/dL Normal 6.0-8.0 [facility] Comment on above: Performed By: #### A CA, 5124-3, 04748-3, 76046-6, 36864-4 #### [facility] ([id number]) [address], [address] [place] [address] Sodium [Moles/Vol] 136 mmol/L Normal 134-146 [facility] Comment on above: Performed By: #### A CA, 5124-3, 58668-5, 19143-9, 75162-7 #### [facility] ([id number]) [address], [address] [place] [address] Urea nitrogen [Mass/Vol] 13 mg/dL Normal 5-23 [facility] Comment on above: Performed By: #### A CA, 5124-3, 58595-2, 57420-8, 58752-8 #### [facility] ([id number]) [address], [address] [place] [address] CBC AND AUTO DIFFon 10-01-19 24 ABSOLUTE BASOPHIL 0.1 X10E9/L Normal 0.0-0.2 [facility] Comment on above: Performed By: #### A CA, 5124-3, 71194-5, 08944-5, 01535-7 #### [facility] ([id number]) [address], [facility] [address] [place] [address] ABSOLUTE NEUTROPHIL 11.2 X10E9/L High 1.5-6.6 [facility] Comment on above: Performed By: #### A CA, 5124-3, 43312-9, 34493-4, 34402-6 #### [facility] ([id number]) [address] [address] [place] [address] Basophils/100 WBC (Bld) 0.6 % Normal [facility] Comment on above: Performed By: #### A CA, 5124-3, 98429-5, 14797-1, 45904-7 #### [facility] ([id number]) [address] [address] [place] [address] Eosinophils (Bld) [#/Vol] 0.1 10*3/uL Normal 0.0-0.4 [facility] Comment on above: Performed By: #### A CA, 5124-3, 66019-2, 61265-8, 17037-2 #### [facility] ([id number]) [address] [address] Eosinophils/100 WBC (Bld) 0.5 % Normal [facility] Comment on above: Performed By: #### A CA, 5124-3, 91335-2, 28182-0, 68822-7 #### [facility] ([id number]) [address] [address] Erythrocyte distribution width (RBC) [Ratio] 13.0 % Normal 11.5-15.0 [facility] Comment on above: Performed By: #### A CA, 5124-3, 61460-3, 68741-3, 96372-3 #### [facility] ([id number]) [address] [address] Hematocrit (Bld) [Volume fraction] 37.4 % Normal 35-47 [facility] Comment on above: Performed By: #### A CA, 5124-3, 27610-2, 80407-2, 95597-6 #### [facility] ([id number]) [address] [address] Hemoglobin (Bld) [Mass/Vol] 13.0 g/dL Normal 11.7-15.5 [facility] Comment on above: Performed By: #### A CA, 5124-3, 16096-3, 91831-9, 66056-4 #### [facility] ([id number]) [address] [address] Lymphocytes (Bld) [#/Vol] 3.4 10*3/uL Normal 1.0-3.5 [facility] Comment on above: Performed By: #### A PARUL, 5124-3, 49011-6, 45481-2, 20153-7 #### [facility] ([id number]) [address] [address] [place] [address] Lymphocytes/100 WBC (Bld) 21.5 % Normal [facility] Comment on above: Performed By: #### A CA, 5124-3, 96913-0, 83742-0, 08593-2 #### [facility] ([id number]) [address] [address] MCH (RBC) [Entitic mass] 30.8 pg Normal 27-34 [facility] Comment on above: Performed By: #### A PARUL, 5124-3, 13734-7, 12423-4, 50602-0 #### [facility] ([id number]) [address], [address] [place] [address] MCHC (RBC) [Mass/Vol] 34.9 g/dL Normal 32-36 [facility] Comment on above: Performed By: #### A PARUL, 5124-3, 28690-9, 07735-2, 40824-4 #### [facility] ([id number]) [address], [facility] [address] [place] [address] MCV (RBC) [Entitic vol] 88 fL Normal 80-100 [facility] Comment on above: Performed By: #### A CA, 5124-3, 61308-1, 00832-4, 06832-7 #### [facility] ([id number]) [address], [facility] [address] [place] [address] Monocytes (Bld) [#/Vol] 0.8 10*3/uL Normal 0-0.9 [facility] Comment on above: Performed By: #### A PARUL, 5124-3, 80299-7, 97726-9, 94220-3 #### [facility] ([id number]) [address] [address] Monocytes/100 WBC (Bld) 5.2 % Normal [facility] Comment on above: Performed By: #### A CA, 5124-3, 00319-1, 69902-5, 85007-3 #### [facility] ([id number]) [address] [address] Neutrophils/100 WBC (Bld) 72.2 % Normal [facility] Comment on above: Performed By: #### A CA, 5124-3, 69385-6, 84439-0, 72254-8 #### [facility] ([id number]) [address] [address] Platelet mean volume (Bld) [Entitic vol] 8.0 fL Normal 7-12 [facility] Comment on above: Performed By: #### A CA, 5124-3, 35949-2, 22415-0, 05309-8 #### [facility] ([id number]) [address] [address] Platelets (Bld) [#/Vol] 354 10*3/uL Normal 150-450 [facility] Comment on above: Performed By: #### A CA, 5124-3, 62336-4, 96218-3, 75282-4 #### [facility] ([id number]) [address] [address] RBC COUNT 4.24 X10E12/L Normal 3.80-5.20 [facility] Comment on above: Performed By: #### A CA, 5124-3, 80486-3, 04020-7, 78881-8 #### [facility] ([id number]) [address] [address] WBC (Bld) [#/Vol] 15.6 10*3/uL High 4.0-11.0 [facility] Comment on above: Performed By: #### A CA, 5124-3, 67089-7, 22143-1, 63343-1 #### [facility] ([id number]) [address], [address] [address] ABSOLUTE BASOPHIL 0.1 X10E9/L Normal 0.0-0.2 [facility] Comment on above: Performed By: #### A CA, 5124-3, 31077-0, 75150-6, 19870-3 #### [facility] ([id number]) [address], [address] [address] ABSOLUTE NEUTROPHIL 11.9 X10E9/L High 1.5-6.6 [facility] Comment on above: Performed By: #### A PARUL, 5124-3, 47453-3, 65208-0, 74592-2 #### [facility] ([id number]) [address] [address] Basophils/100 WBC (Bld) 0.4 % Normal [facility] Comment on above: Performed By: #### A PARUL, 5124-3, 27688-5, 17579-4, 95880-6 #### [facility] ([id number]) [address], [address] [address] Eosinophils (Bld) [#/Vol] 0.1 10*3/uL Normal 0.0-0.4 [facility] Comment on above: Performed By: #### A CA, 5124-3, 38142-8, 00683-5, 93797-8 #### [facility] ([id number]) [address] [address] Eosinophils/100 WBC (Bld) 0.5 % Normal [facility] Comment on above: Performed By: #### A CA, 5124-3, 45933-8, 70524-7, 15660-2 #### [facility] ([id number]) [address] [address] Erythrocyte distribution width (RBC) [Ratio] 13.2 % Normal 11.5-15.0 [facility] Comment on above: Performed By: #### A CA, 5124-3, 48615-2, 13486-9, 86341-4 #### [facility] ([id number]) [address] [address] Hematocrit (Bld) [Volume fraction] 38.3 % Normal 35-47 [facility] Comment on above: Performed By: #### A PARUL, 5124-3, 03397-9, 50039-3, 36112-6 #### [facility] ([id number]) [address], [address] [address] Hemoglobin (Bld) [Mass/Vol] 12.9 g/dL Normal 11.7-15.5 [facility] Comment on above: Performed By: #### A CA, 5124-3, 56811-8, 74794-7, 59411-0 #### [facility] ([id number]) [address] [address] Lymphocytes (Bld) [#/Vol] 3.8 10*3/uL High 1.0-3.5 [facility] Comment on above: Performed By: #### A CA, 5124-3, 37948-0, 46578-4, 57001-7 #### [facility] ([id number]) [address] [address] Lymphocytes/100 WBC (Bld) 22.2 % Normal [facility] Comment on above: Performed By: #### A CA, 5124-3, 16811-9, 84922-7, 94013-2 #### [facility] ([id number]) [address] [address] [place] [address] MCH (RBC) [Entitic mass] 30.4 pg Normal 27-34 [facility] Comment on above: Performed By: #### A CA, 5124-3, 48675-6, 17851-3, 66877-9 #### [facility] ([id number]) [address], [facility] [address] [place] [address] MCHC (RBC) [Mass/Vol] 33.8 g/dL Normal 32-36 [facility] Comment on above: Performed By: #### A CA, 5124-3, 00343-8, 98015-5, 70739-6 #### [facility] ([id number]) [address] [address] MCV (RBC) [Entitic vol] 90 fL Normal 80-100 [facility] Comment on above: Performed By: #### A CA, 5124-3, 01628-4, 57837-1, 69016-6 #### [facility] ([id number]) [address] [address] Monocytes (Bld) [#/Vol] 1.1 10*3/uL High 0-0.9 [facility] Comment on above: Performed By: #### A CA, 5124-3, 09600-5, 23425-1, 57862-4 #### [facility] ([id number]) [address] [address] Monocytes/100 WBC (Bld) 6.5 % Normal [facility] Comment on above: Performed By: #### A CA, 5124-3, 00588-1, 36803-7, 90781-4 #### [facility] ([id number]) [address] [address] [place] [address] Neutrophils/100 WBC (Bld) 70.4 % Normal [facility] Comment on above: Performed By: #### A PARUL, 5124-3, 18966-6, 09450-1, 14879-6 #### [facility] ([id number]) [address], [address] [place] [address] Platelet mean volume (Bld) [Entitic vol] 8.2 fL Normal 7-12 [facility] Comment on above: Performed By: #### A CA, 5124-3, 79301-9, 99549-0, 87295-8 #### [facility] ([id number]) [address], [address] [place] [address] Platelets (Bld) [#/Vol] 336 10*3/uL Normal 150-450 [facility] Comment on above: Performed By: #### A PARUL, 5124-3, 86242-5, 00708-2, 40429-2 #### [facility] ([id number]) [address], [address] [place] [address] RBC COUNT 4.26 X10E12/L Normal 3.80-5.20 [facility] Comment on above: Performed By: #### A PARUL, 5124-3, 83590-3, 24174-5, 64285-2 #### [facility] ([id number]) [address], [address] [place] [address] WBC (Bld) [#/Vol] 17.0 10*3/uL High 4.0-11.0 [facility] Comment on above: Performed By: #### A PARUL, 5124-3, 43945-4, 19515-2, 66405-2 #### [facility] ([id number]) [address], [address] [place] [address] ABSOLUTE BASOPHIL 0.0 X10E9/L Normal 0.0-0.2 [facility] Comment on above: Performed By: #### A CA, 5124-3, 47168-2, 81712-0, 74424-6 #### [facility] ([id number]) [address], [facility] [address] [place] [address] ABSOLUTE NEUTROPHIL 11.5 X10E9/L High 1.5-6.6 [facility] Comment on above: Performed By: #### A CA, 5124-3, 12276-5, 09930-6, 92323-1 #### [facility] ([id number]) [address], [facility] [address] [place] [address] Basophils/100 WBC (Bld) 0.3 % Normal [facility] Comment on above: Performed By: #### A CA, 5124-3, 88153-3, 85362-0, 35529-8 #### [facility] ([id number]) [address], [address] [address] Eosinophils (Bld) [#/Vol] 0.0 10*3/uL Normal 0.0-0.4 [facility] Comment on above: Performed By: #### A PARUL, 5124-3, 13588-9, 99076-0, 11314-3 #### [facility] ([id number]) [address], [address] [address] Eosinophils/100 WBC (Bld) 0.3 % Normal [facility] Comment on above: Performed By: #### A CA, 5124-3, 55954-4, 17094-1, 05823-8 #### [facility] ([id number]) [address] [address] [place] [address] Erythrocyte distribution width (RBC) [Ratio] 13.2 % Normal 11.5-15.0 [facility] Comment on above: Performed By: #### A CA, 5124-3, 35086-4, 49490-1, 96412-7 #### [facility] ([id number]) [address] [address] [place] [address] Hematocrit (Bld) [Volume fraction] 38.6 % Normal 35-47 [facility] Comment on above: Performed By: #### A CA, 5124-3, 51292-5, 24155-2, 92397-9 #### [facility] ([id number]) [address], [facility] [address] [place] [address] Hemoglobin (Bld) [Mass/Vol] 13.2 g/dL Normal 11.7-15.5 [facility] Comment on above: Performed By: #### A CA, 5124-3, 74786-6, 80667-5, 97386-8 #### [facility] ([id number]) [address] [address] Lymphocytes (Bld) [#/Vol] 4.2 10*3/uL High 1.0-3.5 [facility] Comment on above: Performed By: #### A CA, 5124-3, 46594-9, 66547-5, 91286-9 #### [facility] ([id number]) [address] [address] Lymphocytes/100 WBC (Bld) 24.8 % Normal [facility] Comment on above: Performed By: #### A CA, 5124-3, 36130-4, 16013-1, 65529-8 #### [facility] ([id number]) [address] [address] [place] [address] MCH (RBC) [Entitic mass] 30.3 pg Normal 27-34 [facility] Comment on above: Performed By: #### A CA, 5124-3, 72822-2, 55788-1, 08000-1 #### [facility] ([id number]) [address], [address] [place] [address] MCHC (RBC) [Mass/Vol] 34.2 g/dL Normal 32-36 [facility] Comment on above: Performed By: #### A CA, 5124-3, 12189-6, 83949-5, 15407-7 #### [facility] ([id number]) [address], [facility] [address] [place] [address] MCV (RBC) [Entitic vol] 89 fL Normal 80-100 [facility] Comment on above: Performed By: #### A CA, 5124-3, 05956-5, 97438-0, 63014-4 #### [facility] ([id number]) [address], [address] [address] Monocytes (Bld) [#/Vol] 1.2 10*3/uL High 0-0.9 [facility] Comment on above: Performed By: #### A CA, 5124-3, 65784-4, 40603-4, 65098-1 #### [facility] ([id number]) [address], [address] [address] Monocytes/100 WBC (Bld) 7.2 % Normal [facility] Comment on above: Performed By: #### A CA, 5124-3, 84714-0, 96349-3, 27918-0 #### [facility] ([id number]) [address], [address] [address] Neutrophils/100 WBC (Bld) 67.4 % Normal [facility] Comment on above: Performed By: #### A CA, 5124-3, 53136-0, 42653-8, 95363-9 #### [facility] ([id number]) [address], [facility] [address] [place] [address] Platelet mean volume (Bld) [Entitic vol] 8.3 fL Normal 7-12 [facility] Comment on above: Performed By: #### A CA, 5124-3, 84369-6, 84222-0, 10471-1 #### [facility] ([id number]) [address], [address] [place] [address] Platelets (Bld) [#/Vol] 345 10*3/uL Normal 150-450 [facility] Comment on above: Performed By: #### A CA, 5124-3, 96783-4, 70251-0, 80183-3 #### [facility] ([id number]) [address], [facility] [address] [place] [address] RBC COUNT 4.35 X10E12/L Normal 3.80-5.20 [facility] Comment on above: Performed By: #### A CA, 5124-3, 31727-4, 50881-3, 88391-6 #### [facility] ([id number]) [address] [address] WBC (Bld) [#/Vol] 17.1 10*3/uL High 4.0-11.0 [facility] Comment on above: Performed By: #### A CA, 5124-3, 86329-4, 13170-2, 31422-1 #### [facility] ([id number]) [address], [facility] [address] [place] [address] COMPREHENSIVE METABOLIC PANE Yasmani 10-01-2023 Albumin [Mass/Vol] 3.3 g/dL Normal 3.2-5.3 [facility] Comment on above: Performed By: #### A CA, 5124-3, 72509-4, 19203-6, 77396-8 #### [facility] ([id number]) [address], [facility] [address] [place] [address] ALP [Catalytic activity/Vol] 69 U/L Normal 39-130 [facility] Comment on above: Performed By: #### A CA, 5124-3, 39631-1, 27830-4, 73830-5 #### [facility] ([id number]) [address], [address] [place] [address] ALT [Catalytic activity/Vol] 10 U/L Normal 0-31 [facility] Comment on above: Performed By: #### A CA, 5124-3, 98762-3, 67962-8, 48824-4 #### [facility] ([id number]) [address], [address] [place] [address] Anion gap [Moles/Vol] 10 mmol/L Normal 5-15 [facility] Comment on above: Performed By: #### A CA, 5124-3, 09457-2, 16895-2, 54812-5 #### [facility] ([id number]) [address], [address] [place] [address] AST [Catalytic activity/Vol] 21 U/L Normal 0-41 [facility] Comment on above: Performed By: #### A CA, 5124-3, 90529-5, 81300-5, 94368-6 #### [facility] ([id number]) [address], [address] [place] [address] Bilirubin [Mass/Vol] 0.3 mg/dL Normal 0.3-1.2 [facility] Comment on above: Performed By: #### A CA, 5124-3, 32681-4, 08646-9, 59648-4 #### [facility] ([id number]) [address], [address] [place] [address] Calcium [Mass/Vol] 8.0 mg/dL Low 8.5-10.5 [facility] Comment on above: Performed By: #### A CA, 5124-3, 54390-2, 46695-5, 46881-2 #### [facility] ([id number]) [address], [address] [place] [address] Chloride [Moles/Vol] 102 mmol/L Normal 98-109 [facility] Comment on above: Performed By: #### A PARUL, 5124-3, 81972-9, 24974-3, 65844-8 #### [facility] ([id number]) [address], [address] [place] [address] CO2 [Moles/Vol] 21 mmol/L Low 22-32 [facility] Comment on above: Performed By: #### A PARUL, 5124-3, 63238-1, 02801-9, 09718-4 #### [facility] ([id number]) [address], [facility] [address] [place] [address] Creatinine [Mass/Vol] 0.64 mg/dL Normal 0.40-1.00 [facility] Comment on above: Result Comment: METH OD TRACEABLE TO IDMS STANDARD Performed By: #### A PARUL, 5124-3, 38547-3, 02249-4, 37322-3 #### [facility] ([id number]) [address], [facility] [address] [place] [address] eGFR (CKD-EPI) NON-RACE DEPENDENT >90 Normal >59 [facility] Comment on above: Result Comment: Reported eGFR is based on the CKD-EPI 2020 equation that does not use a race coefficient. Performed By: #### A PARUL, 5124-3, 01233-8, 99545-1, 92028-0 #### [facility] ([id number]) [address], [facility] [address] [place] [address] Glucose [Mass/Vol] 95 mg/dL Normal 65-99 [facility] Comment on above: Performed By: #### A PARUL, 5124-3, 59855-7, 79307-1, 28887-4 #### [facility] ([id number]) [address], [facility] [address] [place] [address] Potassium [Moles/Vol] 4.1 mmol/L Normal 3.5-5.0 [facility] Comment on above: Performed By: #### A PARUL, 5124-3, 88868-2, 81724-0, 51643-1 #### [facility] ([id number]) [address], [facility] [address] [place] [address] Protein [Mass/Vol] 6.2 g/dL Normal 6.0-8.0 [facility] Comment on above: Performed By: #### A CA, 5124-3, 66259-2, 58086-6, 24868-5 #### [facility] ([id number]) [address], [address] [place] [address] Sodium [Moles/Vol] 133 mmol/L Low 134-146 [facility] Comment on above: Performed By: #### A CA, 5124-3, 24859-7, 70057-4, 37320-1 #### [facility] ([id number]) [address] [address] [place] [address] Urea nitrogen [Mass/Vol] 11 mg/dL Normal 5-23 [facility] Comment on above: Performed By: #### A CA, 5124-3, 66780-6, 68745-9, 27925-3 #### [facility] ([id number]) [address] [address] Albumin [Mass/Vol] 3.3 g/dL Normal 3.2-5.3 [facility] Comment on above: Performed By: #### A CA, 5124-3, 87602-0, 76850-7, 72772-6 #### [facility] ([id number]) [address] [address] [place] [address] ALP [Catalytic activity/Vol] 61 U/L Normal 39-130 [facility] Comment on above: Performed By: #### A CA, 5124-3, 46667-9, 95085-7, 34372-7 #### [facility] ([id number]) [address], [address] [place] [address] ALT [Catalytic activity/Vol] 12 U/L Normal 0-31 [facility] Comment on above: Performed By: #### A CA, 5124-3, 04948-9, 42490-5, 22904-8 #### [facility] ([id number]) [address], [address] [place] [address] Anion gap [Moles/Vol] 11 mmol/L Normal 5-15 [facility] Comment on above: Performed By: #### A CA, 5124-3, 44914-4, 84194-8, 95108-7 #### [facility] ([id number]) [address], [address] [place] [address] AST [Catalytic activity/Vol] 23 U/L Normal 0-41 [facility] Comment on above: Performed By: #### A CA, 5124-3, 49234-9, 02442-6, 60799-4 #### [facility] ([id number]) [address], [address] [place] [address] Bilirubin [Mass/Vol] 0.2 mg/dL Low 0.3-1.2 [facility] Comment on above: Performed By: #### A CA, 5124-3, 92499-8, 89317-9, 04571-5 #### [facility] ([id number]) [address], [address] [place] [address] Calcium [Mass/Vol] 8.4 mg/dL Low 8.5-10.5 [facility] Comment on above: Performed By: #### A CA, 5124-3, 44173-4, 48383-0, 04745-8 #### [facility] ([id number]) [address], [address] [place] [address] Chloride [Moles/Vol] 103 mmol/L Normal 98-109 [facility] Comment on above: Performed By: #### A CA, 5124-3, 55316-1, 26197-4, 37743-5 #### [facility] ([id number]) [address] [address] CO2 [Moles/Vol] 20 mmol/L Low 22-32 [facility] Comment on above: Performed By: #### A CA, 5124-3, 58641-1, 41702-9, 74103-1 #### [facility] ([id number]) [address] [address] Creatinine [Mass/Vol] 0.57 mg/dL Normal 0.40-1.00 [facility] Comment on above: Result Comment: METH OD TRACEABLE TO IDMS STANDARD Performed By: #### A PARUL, 5124-3, 72420-7, 11709-8, 89265-3 #### [facility] ([id number]) [address] [address] eGFR (CKD-EPI) NON-RACE DEPENDENT >90 Normal >59 [facility] Comment on above: Result Comment: Reported eGFR is based on the CKD-EPI 2020 equation that does not use a race coefficient. Performed By: #### A PARUL, 5124-3, 67412-7, 50338-6, 17165-0 #### [facility] ([id number]) [address] [address] Glucose [Mass/Vol] 77 mg/dL Normal 65-99 [facility] Comment on above: Performed By: #### A CA, 5124-3, 14777-4, 18212-7, 36919-7 #### [facility] ([id number]) [address] [address] Potassium [Moles/Vol] 3.9 mmol/L Normal 3.5-5.0 [facility] Comment on above: Performed By: #### A CA, 5124-3, 92433-0, 84050-5, 48042-0 #### [facility] ([id number]) [address], [address] [place] [address] Protein [Mass/Vol] 6.2 g/dL Normal 6.0-8.0 [facility] Comment on above: Performed By: #### A CA, 5124-3, 16723-6, 98588-5, 28289-9 #### [facility] ([id number]) [address], [address] [place] [address] Sodium [Moles/Vol] 134 mmol/L Normal 134-146 [facility] Comment on above: Performed By: #### A CA, 5124-3, 46614-8, 44598-7, 81147-8 #### [facility] ([id number]) [address] [address] [place] [address] Urea nitrogen [Mass/Vol] 12 mg/dL Normal 5-23 [facility] Comment on above: Performed By: #### A CA, 5124-3, 34896-7, 17545-2, 26264-6 #### [facility] ([id number]) [address] [address] [place] [address] Albumin [Mass/Vol] 3.4 g/dL Normal 3.2-5.3 [facility] Comment on above: Performed By: #### A CA, 5124-3, 40932-9, 28198-1, 93035-0 #### [facility] ([id number]) [address], [address] [place] [address] ALP [Catalytic activity/Vol] 64 U/L Normal 39-130 [facility] Comment on above: Performed By: #### A CA, 5124-3, 08225-3, 05469-2, 76975-9 #### [facility] ([id number]) [address], [address] [place] [address] ALT [Catalytic activity/Vol] 13 U/L Normal 0-31 [facility] Comment on above: Performed By: #### A CA, 5124-3, 79443-2, 40054-1, 18760-3 #### [facility] ([id number]) [address], [address] [place] [address] Anion gap [Moles/Vol] 12 mmol/L Normal 5-15 [facility] Comment on above: Performed By: #### A CA, 5124-3, 77860-7, 42758-8, 69180-1 #### [facility] ([id number]) [address], [address] [place] [address] AST [Catalytic activity/Vol] 22 U/L Normal 0-41 [facility] Comment on above: Performed By: #### A CA, 5124-3, 08044-2, 07001-8, 54865-0 #### [facility] ([id number]) [address], [address] [place] [address] Bilirubin [Mass/Vol] 0.2 mg/dL Low 0.3-1.2 [facility] Comment on above: Performed By: #### A CA, 5124-3, 32447-8, 50169-0, 27067-8 #### [facility] ([id number]) [address], [address] [place] [address] Calcium [Mass/Vol] 8.9 mg/dL Normal 8.5-10.5 [facility] Comment on above: Performed By: #### A CA, 5124-3, 63260-7, 07878-7, 14331-3 #### [facility] ([id number]) [address], [address] [place] [address] Chloride [Moles/Vol] 105 mmol/L Normal 98-109 [facility] Comment on above: Performed By: #### A CA, 5124-3, 77952-9, 63168-3, 57080-9 #### [facility] ([id number]) [address], [facility] [address] [place] [address] CO2 [Moles/Vol] 20 mmol/L Low 22-32 [facility] Comment on above: Performed By: #### A PARUL, 5124-3, 95278-5, 05841-6, 05288-0 #### [facility] ([id number]) [address] [address] Creatinine [Mass/Vol] 0.57 mg/dL Normal 0.40-1.00 [facility] Comment on above: Result Comment: METH OD TRACEABLE TO IDMS STANDARD Performed By: #### A PARUL, 5124-3, 31240-7, 74925-0, 59952-4 #### [facility] ([id number]) [address] [address] eGFR (CKD-EPI) NON-RACE DEPENDENT >90 Normal >59 [facility] Comment on above: Result Comment: Reported eGFR is based on the CKD-EPI 2020 equation that does not use a race coefficient. Performed By: #### A PARUL, 5124-3, 82138-4, 36348-1, 56423-0 #### [facility] ([id number]) [address] [address] Glucose [Mass/Vol] 77 mg/dL Normal 65-99 [facility] Comment on above: Performed By: #### A CA, 5124-3, 26977-6, 89398-8, 11456-3 #### [facility] ([id number]) [address] [address] Potassium [Moles/Vol] 3.9 mmol/L Normal 3.5-5.0 [facility] Comment on above: Performed By: #### A PARUL, 5124-3, 00620-0, 68692-0, 63990-2 #### [facility] ([id number]) [address], [address] [place] [address] Protein [Mass/Vol] 6.3 g/dL Normal 6.0-8.0 [facility] Comment on above: Performed By: #### A CA, 5124-3, 89860-9, 33899-9, 03041-3 #### [facility] ([id number]) [address], [address] [place] [address] Sodium [Moles/Vol] 137 mmol/L Normal 134-146 [facility] Comment on above: Performed By: #### A CA, 5124-3, 43415-6, 25282-3, 07728-5 #### [facility] ([id number]) [address], [address] [place] [address] Urea nitrogen [Mass/Vol] 15 mg/dL Normal 5-23 [facility] Comment on above: Performed By: #### A CA, 5124-3, 32047-2, 63717-7, 26144-3 #### [facility] ([id number]) [address] [address] [place] [address] LDH [Catalytic activity/Vol] on 10-01-2023 LDH 164 U/L Normal 100-235 [facility] Comment on above: Performed By: #### A CA, 5124-3, 40460-0, 24175-6, 72870-5 #### [facility] ([id number]) [address], [address] [place] [address] URIC ACIDon 10-01-2023 Urate [Mass/Vol] 6.3 mg/dL Normal 2.6-7.2 [facility] Comment on above: Performed By: #### A CA, 5124-3, 71444-7, 09133-8, 67697-2 #### [facility] ([id number]) [address], [address] [place] [address] CBC AND AUTO DIFFon 20-20 24 ABSOLUTE BASOPHIL 0.0 X10E9/L Normal 0.0-0.2 [facility] Comment on above: Performed By: #### A PARUL, 5124-3, 18903-0, 87783-0, 10053-6 #### [facility] ([id number]) [address], [address] [address] ABSOLUTE NEUTROPHIL 7.9 X10E9/L High 1.5-6.6 [facility] Comment on above: Performed By: #### A PARUL, 5124-3, 15416-4, 44835-8, 71381-8 #### [facility] ([id number]) [address], [address] [address] Basophils/100 WBC (Bld) 0.2 % Normal [facility] Comment on above: Performed By: #### A PARUL, 5124-3, 56501-9, 73779-5, 46860-0 #### [facility] ([id number]) [address], [address] [address] Eosinophils (Bld) [#/Vol] 0.0 10*3/uL Normal 0.0-0.4 [facility] Comment on above: Performed By: #### A PARUL, 5124-3, 93491-8, 91510-8, 20899-1 #### [facility] ([id number]) [address], [address] [address] Eosinophils/100 WBC (Bld) 0.2 % Normal [facility] Comment on above: Performed By: #### A PARUL, 5124-3, 98005-5, 78343-9, 99543-1 #### [facility] ([id number]) [address], [facility] [address] [place] [address] Erythrocyte distribution width (RBC) [Ratio] 13.1 % Normal 11.5-15.0 [facility] Comment on above: Performed By: #### A CA, 5124-3, 86814-3, 06660-8, 92798-8 #### [facility] ([id number]) [address], [facility] [address] [place] [address] Hematocrit (Bld) [Volume fraction] 37.6 % Normal 35-47 [facility] Comment on above: Performed By: #### A CA, 5124-3, 51998-4, 45394-4, 22461-3 #### [facility] ([id number]) [address], [address] [address] Hemoglobin (Bld) [Mass/Vol] 12.6 g/dL Normal 11.7-15.5 [facility] Comment on above: Performed By: #### A PARUL, 5124-3, 40690-3, 63128-7, 28772-0 #### [facility] ([id number]) [address], [address] [address] Lymphocytes (Bld) [#/Vol] 3.4 10*3/uL Normal 1.0-3.5 [facility] Comment on above: Performed By: #### A PARUL, 5124-3, 57343-4, 74774-7, 95297-6 #### [facility] ([id number]) [address] [address] Lymphocytes/100 WBC (Bld) 27.5 % Normal [facility] Comment on above: Performed By: #### A CA, 5124-3, 05657-3, 83854-4, 83029-9 #### [facility] ([id number]) [address] [address] MCH (RBC) [Entitic mass] 30.2 pg Normal 27-34 [facility] Comment on above: Performed By: #### A CA, 5124-3, 95790-6, 80980-4, 52370-3 #### [facility] ([id number]) [address] [address] [place] [address] MCHC (RBC) [Mass/Vol] 33.4 g/dL Normal 32-36 [facility] Comment on above: Performed By: #### A CA, 5124-3, 65992-4, 99562-3, 40614-4 #### [facility] ([id number]) [address], [address] [address] MCV (RBC) [Entitic vol] 90 fL Normal 80-100 [facility] Comment on above: Performed By: #### A PARUL, 5124-3, 92816-0, 24239-9, 02518-1 #### [facility] ([id number]) [address] [address] Monocytes (Bld) [#/Vol] 1.1 10*3/uL High 0-0.9 [facility] Comment on above: Performed By: #### A PARUL, 5124-3, 35785-2, 72160-8, 98321-0 #### [facility] ([id number]) [address] [address] Monocytes/100 WBC (Bld) 8.4 % Normal [facility] Comment on above: Performed By: #### A PARUL, 5124-3, 33242-0, 83167-0, 36950-6 #### [facility] ([id number]) [address] [address] Neutrophils/100 WBC (Bld) 63.7 % Normal [facility] Comment on above: Performed By: #### A CA, 5124-3, 64342-0, 68322-7, 30719-8 #### [facility] ([id number]) [address] [address] [place] [address] Platelet mean volume (Bld) [Entitic vol] 8.3 fL Normal 7-12 [facility] Comment on above: Performed By: #### A CA, 5124-3, 89246-6, 37058-9, 17344-2 #### [facility] ([id number]) [address], [address] [place] [address] Platelets (Bld) [#/Vol] 319 10*3/uL Normal 150-450 [facility] Comment on above: Performed By: #### A CA, 5124-3, 98620-2, 07163-4, 90190-3 #### [facility] ([id number]) [address], [facility] [address] [place] [address] RBC COUNT 4.16 X10E12/L Normal 3.80-5.20 [facility] Comment on above: Performed By: #### A CA, 5124-3, 20900-6, 53006-0, 11406-0 #### [facility] ([id number]) [address], [address] [place] [address] WBC (Bld) [#/Vol] 12.5 10*3/uL High 4.0-11.0 [facility] Comment on above: Performed By: #### A CA, 5124-3, 11863-7, 34560-2, 42800-3 #### [facility] ([id number]) [address], [address] [place] [address] COMPREHENSIVE METABOLIC PANE Yasmani 09-30-2023 Albumin [Mass/Vol] 3.2 g/dL Normal 3.2-5.3 [facility] Comment on above: Performed By: #### A CA, 5124-3, 59640-2, 91554-9, 67246-1 #### [facility] ([id number]) [address], [address] [place] [address] ALP [Catalytic activity/Vol] 57 U/L Normal 39-130 [facility] Comment on above: Performed By: #### A CA, 5124-3, 63457-8, 00691-5, 34746-7 #### [facility] ([id number]) [address], [address] [place] [address] ALT [Catalytic activity/Vol] 12 U/L Normal 0-31 [facility] Comment on above: Performed By: #### A CA, 5124-3, 47724-5, 76215-0, 73255-4 #### [facility] ([id number]) [address], [address] [place] [address] Anion gap [Moles/Vol] 13 mmol/L Normal 5-15 [facility] Comment on above: Performed By: #### A CA, 5124-3, 07011-5, 05959-8, 49912-8 #### [facility] ([id number]) [address], [address] [place] [address] AST [Catalytic activity/Vol] 19 U/L Normal 0-41 [facility] Comment on above: Performed By: #### A CA, 5124-3, 13142-7, 94748-8, 17204-9 #### [facility] ([id number]) [address], [address] [place] [address] Bilirubin [Mass/Vol] 0.2 mg/dL Low 0.3-1.2 [facility] Comment on above: Performed By: #### A CA, 5124-3, 03846-3, 43675-8, 53596-4 #### [facility] ([id number]) [address], [address] [place] [address] Calcium [Mass/Vol] 8.9 mg/dL Normal 8.5-10.5 [facility] Comment on above: Performed By: #### A CA, 5124-3, 21775-0, 63557-9, 82972-3 #### [facility] ([id number]) [address], [address] [place] [address] Chloride [Moles/Vol] 105 mmol/L Normal 98-109 [facility] Comment on above: Performed By: #### A CA, 5124-3, 22181-1, 31942-1, 58385-5 #### [facility] ([id number]) [address], [facility] [address] [place] [address] CO2 [Moles/Vol] 21 mmol/L Low 22-32 [facility] Comment on above: Performed By: #### A CA, 5124-3, 78005-6, 37495-8, 35698-1 #### [facility] ([id number]) [address] [address] Creatinine [Mass/Vol] 0.64 mg/dL Normal 0.40-1.00 [facility] Comment on above: Result Comment: METH OD TRACEABLE TO IDMS STANDARD Performed By: #### A CA, 5124-3, 00621-5, 63226-1, 26003-1 #### [facility] ([id number]) [address] [address] eGFR (CKD-EPI) NON-RACE DEPENDENT >90 Normal >59 [facility] Comment on above: Result Comment: Reported eGFR is based on the CKD-EPI 2020 equation that does not use a race coefficient. Performed By: #### A CA, 5124-3, 39633-7, 32030-9, 23899-6 #### [facility] ([id number]) [address] [address] Glucose [Mass/Vol] 74 mg/dL Normal 65-99 [facility] Comment on above: Performed By: #### A CA, 5124-3, 76168-6, 87386-0, 91688-8 #### [facility] ([id number]) [address] [address] Potassium [Moles/Vol] 3.9 mmol/L Normal 3.5-5.0 [facility] Comment on above: Performed By: #### A CA, 5124-3, 59216-6, 22050-1, 87885-1 #### [facility] ([id number]) [address], [facility] [address] [place] [address] Protein [Mass/Vol] 6.0 g/dL Normal 6.0-8.0 [facility] Comment on above: Performed By: #### A PARUL, 5124-3, 17490-3, 63839-5, 89972-6 #### [facility] ([id number]) [address] [address] Sodium [Moles/Vol] 139 mmol/L Normal 134-146 [facility] Comment on above: Performed By: #### A PARUL, 5124-3, 73465-7, 92933-7, 03480-2 #### [facility] ([id number]) [address] [address] Urea nitrogen [Mass/Vol] 19 mg/dL Normal 5-23 [facility] Comment on above: Performed By: #### A PARUL, 5124-3, 68399-4, 84855-9, 17744-9 #### [facility] ([id number]) [address] [address] CBC AND AUTO DIFFon 09-29-19 24 ABSOLUTE BASOPHIL 0.0 X10E9/L Normal 0.0-0.2 [facility] Comment on above: Performed By: #### A CA, 5124-3, 93044-6, 91534-3, 29542-7 #### [facility] ([id number]) [address] [address] ABSOLUTE NEUTROPHIL 12.0 X10E9/L High 1.5-6.6 [facility] Comment on above: Performed By: #### A CA, 5124-3, 01398-3, 37076-6, 32494-3 #### [facility] ([id number]) [address], [facility] [address] [place] [address] Basophils/100 WBC (Bld) 0.2 % Normal [facility] Comment on above: Performed By: #### A CA, 5124-3, 75640-1, 12237-8, 09067-0 #### [facility] ([id number]) [address], [facility] [address] [place] [address] Eosinophils (Bld) [#/Vol] 0.0 10*3/uL Normal 0.0-0.4 [facility] Comment on above: Performed By: #### A CA, 5124-3, 37947-5, 73219-7, 46871-8 #### [facility] ([id number]) [address], [facility] [address] [place] [address] Eosinophils/100 WBC (Bld) 0.0 % Normal [facility] Comment on above: Performed By: #### A CA, 5124-3, 83782-5, 02298-3, 90712-0 #### [facility] ([id number]) [address] [address] [place] [address] Erythrocyte distribution width (RBC) [Ratio] 13.4 % Normal 11.5-15.0 [facility] Comment on above: Performed By: #### A CA, 5124-3, 51286-3, 43978-9, 75223-3 #### [facility] ([id number]) [address], [facility] [address] [place] [address] Hematocrit (Bld) [Volume fraction] 36.3 % Normal 35-47 [facility] Comment on above: Performed By: #### A CA, 5124-3, 24438-2, 25175-8, 51281-3 #### [facility] ([id number]) [address], [facility] [address] [place] [address] Hemoglobin (Bld) [Mass/Vol] 12.5 g/dL Normal 11.7-15.5 [facility] Comment on above: Performed By: #### A CA, 5124-3, 80570-6, 67345-4, 71329-3 #### [facility] ([id number]) [address], [address] [address] Lymphocytes (Bld) [#/Vol] 1.9 10*3/uL Normal 1.0-3.5 [facility] Comment on above: Performed By: #### A PARUL, 5124-3, 87452-8, 47962-3, 58192-3 #### [facility] ([id number]) [address] [address] Lymphocytes/100 WBC (Bld) 12.8 % Normal [facility] Comment on above: Performed By: #### A CA, 5124-3, 51353-4, 59885-3, 12224-4 #### [facility] ([id number]) [address] [address] MCH (RBC) [Entitic mass] 31.0 pg Normal 27-34 [facility] Comment on above: Performed By: #### A CA, 5124-3, 96001-4, 35221-5, 67704-3 #### [facility] ([id number]) [address] [address] [place] [address] MCHC (RBC) [Mass/Vol] 34.3 g/dL Normal 32-36 [facility] Comment on above: Performed By: #### A CA, 5124-3, 87107-2, 61849-8, 39041-0 #### [facility] ([id number]) [address] [address] [place] [address] MCV (RBC) [Entitic vol] 90 fL Normal 80-100 [facility] Comment on above: Performed By: #### A CA, 5124-3, 54823-8, 47340-9, 52635-9 #### [facility] ([id number]) [address], [facility] [address] [place] [address] Monocytes (Bld) [#/Vol] 0.9 10*3/uL Normal 0-0.9 [facility] Comment on above: Performed By: #### A CA, 5124-3, 33158-9, 75167-5, 53206-9 #### [facility] ([id number]) [address], [facility] [address] [place] [address] Monocytes/100 WBC (Bld) 6.2 % Normal [facility] Comment on above: Performed By: #### A PARUL, 5124-3, 26107-3, 38389-9, 10681-0 #### [facility] ([id number]) [address], [facility] [address] [place] [address] Neutrophils/100 WBC (Bld) 80.8 % Normal [facility] Comment on above: Performed By: #### A PARUL, 5124-3, 09356-4, 39089-6, 72560-9 #### [facility] ([id number]) [address], [facility] [address] [place] [address] Platelet mean volume (Bld) [Entitic vol] 8.4 fL Normal 7-12 [facility] Comment on above: Performed By: #### A CA, 5124-3, 02136-7, 48040-3, 25922-6 #### [facility] ([id number]) [address], [facility] [address] [place] [address] Platelets (Bld) [#/Vol] 337 10*3/uL Normal 150-450 [facility] Comment on above: Performed By: #### A CA, 5124-3, 12006-2, 89049-4, 03657-7 #### [facility] ([id number]) [address], [address] [place] [address] RBC COUNT 4.02 X10E12/L Normal 3.80-5.20 [facility] Comment on above: Performed By: #### A CA, 5124-3, 22651-1, 41849-1, 51945-0 #### [facility] ([id number]) [address], [address] [place] [address] WBC (Bld) [#/Vol] 14.9 10*3/uL High 4.0-11.0 [facility] Comment on above: Performed By: #### A CA, 5124-3, 79067-8, 06832-6, 55993-9 #### [facility] ([id number]) [address], [address] [place] [address] COMPREHENSIVE METABOLIC PANE Yasmani 09-29-2023 Albumin [Mass/Vol] 3.4 g/dL Normal 3.2-5.3 [facility] Comment on above: Performed By: #### A CA, 5124-3, 27784-0, 78598-8, 22645-8 #### [facility] ([id number]) [address], [address] [address] ALP [Catalytic activity/Vol] 67 U/L Normal 39-130 [facility] Comment on above: Performed By: #### A CA, 5124-3, 61316-7, 53308-9, 29528-6 #### [facility] ([id number]) [address], [facility] [address] [place] [address] ALT [Catalytic activity/Vol] 15 U/L Normal 0-31 [facility] Comment on above: Performed By: #### A CA, 5124-3, 73299-5, 65922-4, 47162-3 #### [facility] ([id number]) [address], [address] [place] [address] Anion gap [Moles/Vol] 9 mmol/L Normal 5-15 [facility] Comment on above: Performed By: #### A CA, 5124-3, 11734-9, 17722-1, 96271-1 #### [facility] ([id number]) [address], [address] [place] [address] AST [Catalytic activity/Vol] 20 U/L Normal 0-41 [facility] Comment on above: Performed By: #### A CA, 5124-3, 17605-3, 17517-6, 58037-6 #### [facility] ([id number]) [address], [address] [place] [address] Bilirubin [Mass/Vol] 0.2 mg/dL Low 0.3-1.2 [facility] Comment on above: Performed By: #### A CA, 5124-3, 00414-9, 70246-0, 11377-8 #### [facility] ([id number]) [address], [address] [place] [address] Calcium [Mass/Vol] 8.9 mg/dL Normal 8.5-10.5 [facility] Comment on above: Performed By: #### A CA, 5124-3, 34569-5, 38570-0, 03963-2 #### [facility] ([id number]) [address], [address] [place] [address] Chloride [Moles/Vol] 106 mmol/L Normal 98-109 [facility] Comment on above: Performed By: #### A CA, 5124-3, 09819-1, 44003-5, 70115-6 #### [facility] ([id number]) [address], [address] [place] [address] CO2 [Moles/Vol] 21 mmol/L Low 22-32 [facility] Comment on above: Performed By: #### A CA, 5124-3, 12174-7, 77137-0, 83538-5 #### [facility] ([id number]) [address], [address] [address] Creatinine [Mass/Vol] 0.63 mg/dL Normal 0.40-1.00 [facility] Comment on above: Result Comment: METH OD TRACEABLE TO IDMS STANDARD Performed By: #### A CA, 5124-3, 17908-8, 35925-5, 94029-8 #### [facility] ([id number]) [address], [address] [address] eGFR (CKD-EPI) NON-RACE DEPENDENT >90 Normal >59 [facility] Comment on above: Result Comment: Reported eGFR is based on the CKD-EPI 2020 equation that does not use a race coefficient. Performed By: #### A CA, 5124-3, 16888-3, 62063-8, 57318-2 #### [facility] ([id number]) [address], [address] [place] [address] Glucose [Mass/Vol] 101 mg/dL High 65-99 [facility] Comment on above: Performed By: #### A PARUL, 5124-3, 90292-9, 46975-3, 07543-6 #### [facility] ([id number]) [address], [address] [address] Potassium [Moles/Vol] 4.2 mmol/L Normal 3.5-5.0 [facility] Comment on above: Performed By: #### A CA, 5124-3, 56008-8, 52660-8, 99908-9 #### [facility] ([id number]) [address], [address] [address] Protein [Mass/Vol] 6.3 g/dL Normal 6.0-8.0 [facility] Comment on above: Performed By: #### A CA, 5124-3, 80921-2, 54037-4, 16325-2 #### [facility] ([id number]) [address], [facility] [address] [place] [address] Sodium [Moles/Vol] 136 mmol/L Normal 134-146 [facility] Comment on above: Performed By: #### A PARUL, 5124-3, 44896-6, 84622-8, 95453-7 #### [facility] ([id number]) [address], [address] [address] Urea nitrogen [Mass/Vol] 17 mg/dL Normal 5-23 [facility] Comment on above: Performed By: #### A PARUL, 5124-3, 01015-7, 45866-2, 19201-1 #### [facility] ([id number]) [address] [address] Glucose Glucometer (BldC) [M ass/Vol]on 09-29-2023 Glucose [Mass/Vol] 89 mg/dL Normal 65-99 [facility] 24 HR URINE TOTAL PROTEINon 09-28-2023 URINE TOTAL PROTEIN 949 mg/24h High 0-150 [facility] Comment on above: Performed By: #### A PARUL, 5124-3, 35344-0, 62436-9, 17556-0 #### [facility] ([id number]) [address], [address] [address] CBC AND AUTO DIFFon 09-28-19 24 ABSOLUTE BASOPHIL 0.0 X10E9/L Normal 0.0-0.2 [facility] Comment on above: Performed By: #### A CA, 5124-3, 94703-7, 60789-6, 43068-9 #### [facility] ([id number]) [address] [address] [place] [address] ABSOLUTE NEUTROPHIL 11.5 X10E9/L High 1.5-6.6 [facility] Comment on above: Performed By: #### A CA, 5124-3, 57647-1, 34811-8, 17988-4 #### [facility] ([id number]) [address], [address] [place] [address] Basophils/100 WBC (Bld) 0.1 % Normal [facility] Comment on above: Performed By: #### A CA, 5124-3, 15641-9, 16779-4, 48293-5 #### [facility] ([id number]) [address], [address] [address] Eosinophils (Bld) [#/Vol] 0.0 10*3/uL Normal 0.0-0.4 [facility] Comment on above: Performed By: #### A PARUL, 5124-3, 22748-1, 84721-3, 55252-7 #### [facility] ([id number]) [address], [address] [address] Eosinophils/100 WBC (Bld) 0.0 % Normal [facility] Comment on above: Performed By: #### A PARUL, 5124-3, 61936-8, 33801-6, 95859-5 #### [facility] ([id number]) [address], [facility] [address] [place] [address] Erythrocyte distribution width (RBC) [Ratio] 13.5 % Normal 11.5-15.0 [facility] Comment on above: Performed By: #### A CA, 5124-3, 85709-9, 64660-0, 23776-0 #### [facility] ([id number]) [address], [facility] [address] [place] [address] Hematocrit (Bld) [Volume fraction] 36.1 % Normal 35-47 [facility] Comment on above: Performed By: #### A PARUL, 5124-3, 47143-4, 45717-1, 35282-8 #### [facility] ([id number]) [address] [address] [place] [address] Hemoglobin (Bld) [Mass/Vol] 12.2 g/dL Normal 11.7-15.5 [facility] Comment on above: Performed By: #### A CA, 5124-3, 77915-1, 18288-1, 31496-5 #### [facility] ([id number]) [address], [address] [address] Lymphocytes (Bld) [#/Vol] 1.3 10*3/uL Normal 1.0-3.5 [facility] Comment on above: Performed By: #### A CA, 5124-3, 14576-5, 72984-5, 15109-0 #### [facility] ([id number]) [address] [address] Lymphocytes/100 WBC (Bld) 9.4 % Normal [facility] Comment on above: Performed By: #### A CA, 5124-3, 94870-7, 51165-9, 96729-3 #### [facility] ([id number]) [address] [address] MCH (RBC) [Entitic mass] 30.4 pg Normal 27-34 [facility] Comment on above: Performed By: #### A CA, 5124-3, 70288-5, 26227-7, 96193-6 #### [facility] ([id number]) [address] [address] MCHC (RBC) [Mass/Vol] 33.7 g/dL Normal 32-36 [facility] Comment on above: Performed By: #### A CA, 5124-3, 98842-9, 70156-8, 33204-7 #### [facility] ([id number]) [address] [place] [address] MCV (RBC) [Entitic vol] 90 fL Normal 80-100 [facility] Comment on above: Performed By: #### A CA, 5124-3, 80161-2, 43660-4, 64549-1 #### [facility] ([id number]) [address], [facility] [address] [place] [address] Monocytes (Bld) [#/Vol] 0.8 10*3/uL Normal 0-0.9 [facility] Comment on above: Performed By: #### A CA, 5124-3, 89349-3, 39011-9, 74590-1 #### [facility] ([id number]) [address], [facility] [address] [place] [address] Monocytes/100 WBC (Bld) 5.6 % Normal [facility] Comment on above: Performed By: #### A CA, 5124-3, 01679-5, 84952-0, 65390-8 #### [facility] ([id number]) [address] [address] Neutrophils/100 WBC (Bld) 84.9 % Normal [facility] Comment on above: Performed By: #### A CA, 5124-3, 60025-5, 16032-0, 40092-2 #### [facility] ([id number]) [address], [facility] [address] [place] [address] Platelet mean volume (Bld) [Entitic vol] 8.5 fL Normal 7-12 [facility] Comment on above: Performed By: #### A CA, 5124-3, 02332-6, 85988-6, 19524-6 #### [facility] ([id number]) [address], [address] [place] [address] Platelets (Bld) [#/Vol] 311 10*3/uL Normal 150-450 [facility] Comment on above: Performed By: #### A CA, 5124-3, 39246-2, 20322-1, 39856-1 #### [facility] ([id number]) [address], [address] [place] [address] RBC COUNT 4.00 X10E12/L Normal 3.80-5.20 [facility] Comment on above: Performed By: #### A CA, 5124-3, 82333-2, 23835-2, 10155-7 #### [facility] ([id number]) [address], [address] [place] [address] WBC (Bld) [#/Vol] 13.6 10*3/uL High 4.0-11.0 [facility] Comment on above: Performed By: #### A CA, 5124-3, 67685-0, 99514-7, 45345-1 #### [facility] ([id number]) [address], [address] [place] [address] COMPREHENSIVE METABOLIC PANE Yasmani 09-28-2023 Albumin [Mass/Vol] 3.4 g/dL Normal 3.2-5.3 [facility] Comment on above: Performed By: #### A CA, 5124-3, 62104-0, 28436-0, 17127-5 #### [facility] ([id number]) [address], [address] [place] [address] ALP [Catalytic activity/Vol] 64 U/L Normal 39-130 [facility] Comment on above: Performed By: #### A CA, 5124-3, 47560-4, 90794-6, 64186-5 #### [facility] ([id number]) [address], [address] [place] [address] ALT [Catalytic activity/Vol] 15 U/L Normal 0-31 [facility] Comment on above: Performed By: #### A CA, 5124-3, 59926-3, 99729-9, 43884-7 #### [facility] ([id number]) [address], [address] [place] [address] Anion gap [Moles/Vol] 11 mmol/L Normal 5-15 [facility] Comment on above: Performed By: #### A CA, 5124-3, 75372-5, 02574-7, 38104-3 #### [facility] ([id number]) [address], [address] [place] [address] AST [Catalytic activity/Vol] 23 U/L Normal 0-41 [facility] Comment on above: Performed By: #### A CA, 5124-3, 11155-4, 17859-9, 92071-3 #### [facility] ([id number]) [address], [address] [place] [address] Bilirubin [Mass/Vol] 0.3 mg/dL Normal 0.3-1.2 [facility] Comment on above: Performed By: #### A CA, 5124-3, 12154-9, 38694-6, 35390-4 #### [facility] ([id number]) [address], [address] [place] [address] Calcium [Mass/Vol] 8.2 mg/dL Low 8.5-10.5 [facility] Comment on above: Performed By: #### A CA, 5124-3, 06088-6, 19255-4, 19396-8 #### [facility] ([id number]) [address], [address] [place] [address] Chloride [Moles/Vol] 103 mmol/L Normal 98-109 [facility] Comment on above: Performed By: #### A CA, 5124-3, 66179-0, 85252-5, 74825-8 #### [facility] ([id number]) [address], [address] [place] [address] CO2 [Moles/Vol] 20 mmol/L Low 22-32 [facility] Comment on above: Performed By: #### A CA, 5124-3, 65993-4, 25695-8, 52293-1 #### [facility] ([id number]) [address], [facility] [address] [place] [address] Creatinine [Mass/Vol] 0.70 mg/dL Normal 0.40-1.00 [facility] Comment on above: Result Comment: METH OD TRACEABLE TO IDMS STANDARD Performed By: #### A CA, 5124-3, 42891-5, 46129-3, 82836-7 #### [facility] ([id number]) [address] [address] eGFR (CKD-EPI) NON-RACE DEPENDENT >90 Normal >59 [facility] Comment on above: Result Comment: Reported eGFR is based on the CKD-EPI 2020 equation that does not use a race coefficient. Performed By: #### A CA, 5124-3, 10544-9, 57774-2, 06365-1 #### [facility] ([id number]) [address] [address] Glucose [Mass/Vol] 101 mg/dL High 65-99 [facility] Comment on above: Performed By: #### A PARUL, 5124-3, 95361-7, 84772-7, 20334-3 #### [facility] ([id number]) [address] [address] Potassium [Moles/Vol] 4.0 mmol/L Normal 3.5-5.0 [facility] Comment on above: Performed By: #### A CA, 5124-3, 30395-9, 75536-9, 36455-3 #### [facility] ([id number]) [address] [address] Protein [Mass/Vol] 6.4 g/dL Normal 6.0-8.0 [facility] Comment on above: Performed By: #### A CA, 5124-3, 95208-9, 69381-9, 06766-6 #### [facility] ([id number]) [address], [address] [place] [address] Sodium [Moles/Vol] 134 mmol/L Normal 134-146 [facility] Comment on above: Performed By: #### A CA, 5124-3, 51646-9, 09990-6, 53389-4 #### [facility] ([id number]) [address], [address] [place] [address] Urea nitrogen [Mass/Vol] 10 mg/dL Normal 5-23 [facility] Comment on above: Performed By: #### A PARUL, 5124-3, 99960-1, 29534-3, 08871-5 #### [facility] ([id number]) [address], [address] [place] [address] Glucose Glucometer (BldC) [M ass/Vol]on 09-28-2023 Glucose [Mass/Vol] 117 mg/dL High 65-99 [facility] Glucose [Mass/Vol] 139 mg/dL High 65-99 [facility] Glucose [Mass/Vol] 122 mg/dL High 65-99 [facility] Glucose [Mass/Vol] 105 mg/dL High 65-99 [facility] Glucose [Mass/Vol] 107 mg/dL High 65-99 [facility] Glucose [Mass/Vol] 114 mg/dL High 65-99 [facility] Outside Recordson 09-28-2023 Outside Records [id number] Normal [facility] URINE VOLUME AND TIMEon 09-10 TIME 24 h Normal [facility] Comment on above: Performed By: #### A CA, 5124-3, 99731-2, 99722-3, 32690-4 #### [facility] ([id number]) [address], [address] [place] [address] TOTAL VOLUME 1860 mL Normal [facility] Comment on above: Performed By: #### A CA, 5124-3, 36357-2, 39119-3, 41923-8 #### [facility] ([id number]) [address], [facility] [address] [place] [address] COMPLETE BLOOD COUNTon 09-26 Erythrocyte distribution width (RBC) [Ratio] 13.1 % Normal 11.5-15.0 [facility] Comment on above: Performed By: #### A PARUL, 5124-3, 34946-3, 93160-9, 77487-0 #### [facility] ([id number]) [address], [address] [place] [address] Hematocrit (Bld) [Volume fraction] 38.6 % Normal 35-47 [facility] Comment on above: Performed By: #### A CA, 5124-3, 75006-4, 48310-1, 86090-4 #### [facility] ([id number]) [address] [address] [place] [address] Hemoglobin (Bld) [Mass/Vol] 13.2 g/dL Normal 11.7-15.5 [facility] Comment on above: Performed By: #### A CA, 5124-3, 55902-1, 35200-6, 00646-4 #### [facility] ([id number]) [address], [address] [place] [address] MCH (RBC) [Entitic mass] 30.7 pg Normal 27-34 [facility] Comment on above: Performed By: #### A CA, 5124-3, 42531-9, 51404-2, 77546-6 #### [facility] ([id number]) [address], [address] [place] [address] MCHC (RBC) [Mass/Vol] 34.1 g/dL Normal 32-36 [facility] Comment on above: Performed By: #### A CA, 5124-3, 10860-5, 94351-4, 84210-7 #### [facility] ([id number]) [address], [facility] [address] [place] [address] MCV (RBC) [Entitic vol] 90 fL Normal 80-100 [facility] Comment on above: Performed By: #### A CA, 5124-3, 25827-7, 54489-0, 82664-6 #### [facility] ([id number]) [address], [address] [address] Platelet mean volume (Bld) [Entitic vol] 8.5 fL Normal 7-12 [facility] Comment on above: Performed By: #### A PARUL, 5124-3, 09109-9, 99086-4, 12382-0 #### [facility] ([id number]) [address] [address] Platelets (Bld) [#/Vol] 347 10*3/uL Normal 150-450 [facility] Comment on above: Performed By: #### A CA, 5124-3, 55580-9, 28302-4, 07373-5 #### [facility] ([id number]) [address], [facility] [address] [place] [address] RBC COUNT 4.29 X10E12/L Normal 3.80-5.20 [facility] Comment on above: Performed By: #### A CA, 5124-3, 57557-9, 25071-9, 32135-8 #### [facility] ([id number]) [address] [address] [place] [address] WBC (Bld) [#/Vol] 20.6 10*3/uL High 4.0-11.0 [facility] Comment on above: Performed By: #### A CA, 5124-3, 38011-3, 03409-0, 85461-2 #### [facility] ([id number]) [address], [address] [place] [address] COMPREHENSIVE METABOLIC PANE Yasmani 09-27-2023 Albumin [Mass/Vol] 3.6 g/dL Normal 3.2-5.3 [facility] Comment on above: Performed By: #### C MP, 2532-0, 3084-1, CBC, THYR, 84520-3 #### [facility] ([id number]) [address], [address] [place] [address] ALP [Catalytic activity/Vol] 80 U/L Normal 39-130 [facility] Comment on above: Performed By: #### C MP, 2532-0, 3084-1, CBC, THYR, 95638-9 #### [facility] ([id number]) [address], [address] [place] [address] ALT [Catalytic activity/Vol] 15 U/L Normal 0-31 [facility] Comment on above: Performed By: #### C MP, 2532-0, 3084-1, CBC, THYR, 97770-3 #### [facility] ([id number]) [address], [address] [place] [address] Anion gap [Moles/Vol] 13 mmol/L Normal 5-15 [facility] Comment on above: Performed By: #### C MP, 2532-0, 3084-1, CBC, THYR, 92509-7 #### [facility] ([id number]) [address], [address] [place] [address] AST [Catalytic activity/Vol] 25 U/L Normal 0-41 [facility] Comment on above: Performed By: #### C MP, 2532-0, 3084-1, CBC, THYR, 99755-1 #### [facility] ([id number]) [address], [address] [place] [address] Bilirubin [Mass/Vol] 0.3 mg/dL Normal 0.3-1.2 [facility] Comment on above: Performed By: #### C MP, 2532-0, 3084-1, CBC, THYR, 22460-7 #### [facility] ([id number]) [address], [address] [place] [address] Calcium [Mass/Vol] 8.9 mg/dL Normal 8.5-10.5 [facility] Comment on above: Performed By: #### C EUSEBIA, 2532-0, 3083-1, CBC, THYR, 34599-0 #### [facility] ([id number]) [address], [address] [place] [address] Chloride [Moles/Vol] 104 mmol/L Normal 98-109 [facility] Comment on above: Performed By: #### C EUSEBIA, 2532-0, 3083-1, CBC, THYR, 45461-0 #### [facility] ([id number]) [address] [address] [place] [address] CO2 [Moles/Vol] 17 mmol/L Low 22-32 [facility] Comment on above: Performed By: #### C MP, 2532-0, 3083-1, CBC, THYR, 49422-9 #### [facility] ([id number]) [address] [address] [place] [address] Creatinine [Mass/Vol] 0.70 mg/dL Normal 0.40-1.00 [facility] Comment on above: Result Comment: METH OD TRACEABLE TO IDMS STANDARD Performed By: #### C MP, 2532-0, 3084-1, CBC, THYR, 20673-2 #### [facility] ([id number]) [address], [address] [place] [address] eGFR (CKD-EPI) NON-RACE DEPENDENT >90 Normal >59 [facility] Comment on above: Result Comment: Reported eGFR is based on the CKD-EPI 2020 equation that does not use a race coefficient. Performed By: #### C MP, 2532-0, 3084-1, CBC, THYR, 83652-4 #### [facility] ([id number]) [address], [address] [place] [address] Glucose [Mass/Vol] 93 mg/dL Normal 65-99 [facility] Comment on above: Performed By: #### C EUSEBIA, 2532-0, 3083-1, CBC, THYR, 98332-1 #### [facility] ([id number]) [address], [address] [place] [address] Potassium [Moles/Vol] 3.9 mmol/L Normal 3.5-5.0 [facility] Comment on above: Performed By: #### C EUSEBIA, 2532-0, 3083-1, CBC, THYR, 24705-7 #### [facility] ([id number]) [address], [address] [place] [address] Protein [Mass/Vol] 6.8 g/dL Normal 6.0-8.0 [facility] Comment on above: Performed By: #### C EUSEBIA, 2532-0, 3083-1, CBC, THYR, 06746-8 #### [facility] ([id number]) [address], [address] [place] [address] Sodium [Moles/Vol] 134 mmol/L Normal 134-146 [facility] Comment on above: Performed By: #### C MP, 2532-0, 3083-1, CBC, THYR, 58276-3 #### [facility] ([id number]) [address], [address] [place] [address] Urea nitrogen [Mass/Vol] 11 mg/dL Normal 5-23 [facility] Comment on above: Performed By: #### C MP, 2532-0, 3084-1, CBC, THYR, 69073-2 #### [facility] ([id number]) [address], [address] [place] [address] DRUG SCREEN, URINEon 024 AMPHETAMINE/METHAM P Negative Normal NEG [facility] Comment on above: Result Comment: AMPH /METH screening cut off = 1000 ng/mL Performed By: #### U PCR, DSU #### [facility] ([id number]) [address], [address] [place] [address] BARBITURATES Negative Normal NEG [facility] Comment on above: Result Comment: Lupe iturates screening cut off value = 200 ng/mL Performed By: #### U PCR, DSU #### [facility] ([id number]) [address], [address] [place] [address] BENZODIAZEPINES Negative Normal NEG [facility] Comment on above: Result Comment: Jones odiazepines screening cut off value = 200 ng/mL Performed By: #### U PCR, DSU #### [facility] ([id number]) [address], [address] [place] [address] CANNABINOIDS Negative Normal NEG [facility] Comment on above: Result Comment: Debra abinoids/THC screening cut off value = 50 ng/mL Performed By: #### U PCR, DSU #### [facility] ([id number]) [address], [address] [place] [address] COCAINE METABOLITE Negative Normal NEG [facility] Comment on above: Result Comment: Coca ine screening cut off value = 300 ng/mL Performed By: #### U PCR, DSU #### [facility] ([id number]) [address], [address] [place] [address] ECSTASY Positive Abnormal NEG [facility] Comment on above: Result Comment: Inte rference from Buproprion or Labetalol may cause a positive result, confirmation available upon request. Ecstasy screening cut off value = 500 ng/mL This report is intended for use in clinical monitoring or management of patients. Performed By: #### U PCR, DSU #### [facility] ([id number]) [address], [address] [place] [address] METHADONE Negative Normal NEG [facility] Comment on above: Result Comment: Meth adone screening cut off value = 300 ng/mL. Performed By: #### U PCR, DSU #### [facility] ([id number]) [address] [facility] [place] [address] OPIATES Negative Normal NEG [facility] Comment on above: Result Comment: Opia arsenio screening cut off value = 300 ng/mL NOTE: This test is used for the detection of codeine, hydrocodone (>1000 ng/mL), morphine and hydromorphone (>900 ng/mL) in urine. Performed By: #### U PCR, DSU #### [facility] ([id number]) [address], [address] [place] [address] OXYCODONE Negative Normal NEG [facility] Comment on above: Result Comment: Oxyc odone screening cut off value = 300 ng/mL NOTE: This test is used for the detection of oxycodone and oxymorphone in urine. Performed By: #### U PCR, DSU #### [facility] ([id number]) [address], [address] [place] [address] PHENCYCLIDINE Negative Normal NEG [facility] Comment on above: Result Comment: Phen cyclidine screening cut off value = 25 ng/mL Performed By: #### U PCR, DSU #### [facility] ([id number]) [address], [address] [place] [address] Glucose Glucometer (BldC) [M ass/Vol]on 09-27-2023 Glucose [Mass/Vol] 115 mg/dL High 65-99 [facility] LDH [Catalytic activity/Vol] on 09-27-2023 LDH 202 U/L Normal 100-235 [facility] Comment on above: Performed By: #### A CA, 5124-3, 29082-2, 37264-7, 49136-2 #### [facility] ([id number]) [address], [address] [place] [address] PROTEIN CREAT RATIOon 2023 RANDOM URINE PROTEIN 350 mg/L High <120 [facility] Comment on above: Performed By: #### U PCR, DSU #### [facility] ([id number]) [address], [facility] [address] [place] [address] U/PRO/MANAGER BUSINESS RATIO CALC 0.23 High <0.2 [facility] Comment on above: Result Comment: Neph rotic Syndrome is associated with ratios >3.5 Performed By: #### U PCR, DSU #### [facility] ([id number]) [address], [address] [place] [address] URINE CREATININE,RDM 153.63 mg/dL Normal [facility] Comment on above: Performed By: #### U PCR, DSU #### [facility] ([id number]) [address], [address] [place] [address] RESP PATHOGENS/YVSU-SxT-[id number] 09-27-2023 Respiratory pathogens DNA and RNA panel KALE+non-probe (Nph) SPECIMEN SOURCE NASO PHARYNX ADENOVIRUS Not detected (qualifier value) CORONAVIRUS 229E Not detected (qualifier value) CORONAVIRUS HKU1 Not detected (qualifier value) CORONAVIRUS NL63 Not detected (qualifier value) CORONAVIRUS OC43 Not detected (qualifier value) HUMAN METAPNEUVIRUS Not detected (qualifier value) RHINO/ENTEROVIRUS Not detected (qualifier value) INFLUENZA A Not detected (qualifier value) INFLUENZA B Not detected (qualifier value) PARAINFLUENZA 1 Not detected (qualifier value) PARAINFLUENZA 2 Not detected (qualifier value) PARAINFLUENZA 3 Not detected (qualifier value) PARAINFLUENZA 4 Not detected (qualifier value) RESP SYNCYTIAL VIRUS Not detected (qualifier value) BORD PARAPERTUSSIS Not detected (qualifier value) BORDETELLA PERTUSSIS Not detected (qualifier value) CHLAM.PNEUMONIAE Not detected (qualifier value) MYCO. PNEUMONIAE Not detected (qualifier value) SARS CoV 2 Detected (qualifier value) NOTE The [employer] Respiratory Panel 2.1 (RP2.1) is a multiplexed nucleic acid test intended for the simultaneous qualitative detection and differentiation of nucleic acid from multiple viral and bacterial respiratory organisms, including nucleic acid from Severe Acute Respiratory Syndrome Coronavirus 2 (SARS-CoV-2), in nasopharyngeal swabs obtained from individuals suspected of COVID-19 by their healthcare provider. Testing is limited to laboratories certified under the Clinical Laboratory Improvement Amendments of 1988 (CLIA), to perform high complexity or moderate complexity tests. SARS-CoV-2 RNA and nucleic acids from the other respiratory viral and bacterial organisms identified by this test are generally detectable in nasopharyngeal swabs during the acute phase of infection. The detection and identification of specific viral and bacterial nucleic acids from individuals exhibiting signs and/or symptoms of respiratory infection is indicative of the presence of the identified microorganism and aids in the diagnosis of respiratory infection if used in conjunction with other clinical and epidemiological information. Positive results are indicative of the presence of the identified organism, but do not rule out co-infection with other pathogens. The agent(s) detected by the [employer] RP2.1 may not be the definite cause of disease and clinical correlation with patient history and other diagnostic information is necessary to determine patient infection status. Negative results in the setting of a respiratory illness may be due to infection with pathogens not detected by this test, or lower respiratory tract infection that may not be detected by a nasopharyngeal specimen. Negative results do not preclude SARS-CoV-2 infection and should not be used as the sole basis for patient management decisions. Negative EDUARDO-CoV-2 results must be combined with clinical observations, patient history and epidemiological information. Negative results for other organisms identified by the test may require additional laboratory testing when evaluating a patient with possible respiratory tract infection. Normal [facility] Comment on above: Performed By: #### A CA, 5124-3, 96991-1, 11551-4, 60517-1 #### [facility] ([id number]) [address] [place] [address] STREP B SCREEN CULTUREon S. agalactiae Org specific cx Ql (Vag+Rectum) CULTURE RESULTS POSITIVE FOR GROUP B STREPTOCOCCUS BY NUCLEIC ACID AMPLIFICATION : Group B streptococci remain universally susceptible to penicillin, ampicillin, and cefazolin. Resistance to clindamycin can occur. Please contact laboratory within 48 hr if clindamycin susceptibility testing is needed. Normal [facility] Comment on above: Performed By: #### A WI, 5124-3, 08273-0, 98865-8, 54333-9 #### [facility] ([id number]) [address] [place] [address] T. pallidum IgG+IgM IA Ql (S )on 09-27-2023 Syphilis Total <0.2 Normal 0.0-0.8 [facility] Comment on above: Result Comment: NON REACTIVE No serologic evidence of infection to Treponema pallidum (syphilis). Repeat testing may be considered in patients with suspected acute or primary syphilis in 2 to 4 weeks. Performed By: #### A WI, 5124-3, 07035-4, 26471-9, 39594-3 #### [facility] ([id number]) [address] [place] [address] THYROID PROFILEon 09-27-2023 Free T4 [Mass/Vol] 0.59 ng/dL Low 0.61-1.60 [facility] Comment on above: Performed By: #### A WI, 5124-3, 28337-6, 24642-1, 51138-3 #### [facility] ([id number]) [address] [place] [address] TSH 1.86 uIU/mL Normal 0.49-4.67 [facility] Comment on above: Performed By: #### A [place], 5124-3, 50885-3, 10005-8, 70033-9 #### [facility] ([id number]) [address] [place] [address] [place] [address] URIC ACIDon 09-27-2023 Urate [Mass/Vol] 7.0 mg/dL Normal 2.6-7.2 [facility] Comment on above: Performed By: #### A [place], 5124-3, 77802-4, 67967-5, 05783-7 #### [facility] ([id number]) [address] [facility], [address] [place] [address] URINALYSISon 09-27-2023 Bilirubin Ql (U) Negative Normal NEG [facility] Comment on above: Performed By: #### U PCR, DSU #### [facility] ([id number]) [address] [place] [address], [address] [place] [id number] BLOOD/HGB MODERATE Abnormal NEG [facility] Comment on above: Performed By: #### U PCR, DSU #### [facility] ([id number]) [address] [place] [address], [address] [place] [address] Color (U) YELLOW Normal YELLOW [facility] Comment on above: Performed By: #### U PCR, DSU #### [facility] ([id number]) [address] [place] [address], [address] [place] [address] Glucose Ql (U) Negative Normal NEG [facility] Comment on above: Performed By: #### U PCR, DSU #### [facility] ([id number]) [address] [place] [address], [address] [place] [address] Hyaline casts LM Ql (Urine sed) 3 /lpf High 0-2 [facility] Comment on above: Performed By: #### U PCR, DSU #### [facility] ([id number]) [address] [place] [address], [address] [place] [address] Ketones Ql (U) 20 mg/dL Abnormal NEG [facility] Comment on above: Performed By: #### U PCR, DSU #### [facility] ([id number]) [address], [address] [place] [address] Leukocyte esterase Test strip Ql (U) Negative Normal NEG [facility] Comment on above: Performed By: #### U PCR, DSU #### [facility] ([id number]) [address], [address] [place] [address] MUCOUS PRESENT Abnormal NONE [facility] Comment on above: Performed By: #### U PCR, DSU #### [facility] ([id number]) [address], [address] [place] [address] Nitrite Ql (U) Negative Normal NEG [facility] Comment on above: Performed By: #### U PCR, DSU #### [facility] ([id number]) [address], [address] [place] [address] pH (U) 5.5 [pH] Normal 5.0-8.5 [facility] Comment on above: Performed By: #### U PCR, DSU #### [facility] ([id number]) [address], [address] [place] [address] Protein Ql (U) 30 mg/dL Abnormal NEG [facility] Comment on above: Performed By: #### U PCR, DSU #### [facility] ([id number]) [address], [address] [place] [address] R.B.CELLS 53 /hpf High 0-5 [facility] Comment on above: Performed By: #### U PCR, DSU #### [facility] ([id number]) [address], [address] [place] [address] Specific gravity (U) [Rel density] 1.027 Normal 1.003-1.035 [facility] Comment on above: Performed By: #### U PCR, DSU #### [facility] ([id number]) [address], [address] [address] SQUAMOUS EPITHELIUM 1 /hpf Normal 0-5 [facility] Comment on above: Performed By: #### U PCR, DSU #### [facility] ([id number]) [address], [address] [address] TURBIDITY CLEAR Normal CLEAR [facility] Comment on above: Performed By: #### U PCR, DSU #### [facility] ([id number]) [address], [address] [address] Urobilinogen (U) [Mass/Vol] mg/dL Normal <1.1 [facility] Comment on above: Performed By: #### U PCR, DSU #### [facility] ([id number]) [address] [address] W.B.CELLS 3 /hpf Normal 0-5 [facility] Comment on above: Performed By: #### U PCR, DSU #### [facility] ([id number]) [address] [address] URINE CULTUREon 09-27-2023 Bacteria identified Cx Nom (U) SPECIMEN NOTES URINE RECEIVED WITHOUT PRESERVATIVE CULTURE RESULTS NO GROWTH AT <1000 CFU/mL Normal [facility] Comment on above: Performed By: #### A CA, 5124-3, 92129-5, 59404-8, 70393-0 #### [facility] ([id number]) [address] [address] No Panel Informationon 08-31 Unlisted lab test see scanned report [facility] Urinalysis macro (dipstick) panel (U)on 08-18-2023 Bilirubin, UA Negative Negative - 4(70) +++ mg/dL [facility] Blood, UA Negative Negative - 50 Izaiah/mcL [facility] Clarity, UA Clear [facility] Color, UA Yellow [facility] Glucose, UA Negative Negative - 2000(110) ++++ mg/dL [facility] Interpretation and review of laboratory results Abnormal [facility] Ketones, UA Negative Negative - 160(16) ++++ mg/dL [facility] Leukocytes, UA Trace Negative - 500+++ Susy/mcL [facility] Nitrite, UA Negative Negative - Positive [facility] pH, UA 7.0 5 - 9 [facility] Protein, UA Trace Negative - 2000(20) ++++ mg/dL [facility] Spec Grav, UA 1.025 1 - 1.03 [facility] Urobilinogen, UA 0.2 0.2 - 12 mg/dL [facility] [place] B Abon 08-15-2023 [facility] B1 <1:10 Normal <1:10 [facility] Comment on above: Performed By: #### U RTPRT #### [facility] [address] [place] [address] [employer] Research Technician: MD Blanquita Barton. B2 <1:10 Normal <1:10 [facility] Comment on above: Performed By: #### U RTPRT #### [facility] [address] [place] [address] [employer] Research Technician: MD Blanquita Barton B3 <1:10 Normal <1:10 [facility] Comment on above: Performed By: #### U RTPRT #### [facility] [address] [place] [address] [employer] Research Technician: MD Blanquita Barton B4 1:40 Normal <1:10 [facility] Comment on above: Performed By: #### U RTPRT #### [facility] [employer] [address] [place] [address] [employer] Research Technician: MD Blanquita Barton B5 1:20 Normal <1:10 [facility] Comment on above: Performed By: #### U RTPRT #### [facility] [address] [place] [address] [employer] Research Technician: Gonzalo Cain MD Coxsackie tp. B6 <1:10 Normal <1:10 [facility] Comment on above: Result Comment: (NOT E) INTERPRETIVE INFORMATION: Coxsackie B Virus Single positive antibody titers of greater than or equal to 1:80 may indicate past or current infection. Sero- conversion or an increase in titers between acute and convalescent sera of at least fourfold is considered strong evidence of current or recent infection. Performed By: [facility] [address] [place], [place] [address] Radial Drill Operator: Nikita Pantoja MD, PhD CLIA Number: [id number] Performed By: #### U RTPRT #### [address] [address] [employer] Research Technician: Gonzalo Cain MD Protein S Ag, Freeon 024 Protein S Ag, Free 61 % Normal 55-123 [facility] Comment on above: Result Comment: (NOT [...] reference intervals for this test in the [facility] Test Directory ([employer]). Performed By: [facility] [address] [place], [place] [address] Radial Drill Operator: Nikita Pantoja MD, PhD CLIA Number: [id number] Performed By: #### U RTPRT #### [address] [id number] [employer] Technician: Gonzalo Cain MD Protein S, Antigenicon 08-14 Protein S, Antigenic 129 % High 63-126 [facility] Comment on above: Result Comment: (NOT E) INTERPRETIVE INFORMATION: Protein S, Total Antigen Patients on warfarin may have decreased protein S values. Patients should be off warfarin therapy for two weeks for accurate measurement of protein S. Access complete set of age- and/or gender-specific reference intervals for this test in the [facility] Test Directory ([employer]). Performed By: [facility] [address] [place] [address] Radial Drill Operator: Nikita Pantoja MD, PhD CLIA Number: [id number] Performed By: #### U RTPRT #### [facility] [address] [place] [address] [employer] Research Technician: Gonzalo Cain MD Antithrombin III [place] 08-12 Antithrombin III Act 114 % Normal 83-122 [facility] Comment on above: Result Comment: Patients receiving Hirudin may have a falsely decreased Antitrombin III Activity. Performed By: #### U RTPRT #### [facility] [employer] [address] [place] [address] [employer] Research Technician: Gonzalo Cain MD Lupus Anticoagulanton 2023 Dilute Madhuri Viper Negative Normal NLUP [facility] Comment on above: Performed By: #### L UPPRO #### [facility] [employer] [address] [place] [address] [employer] Research Technician: Gonzalo Cain MD Protein C Activityon 024 Protein C Activity 86 % Normal >80 [facility] Comment on above: Result Comment: Patients [...] VIII. Performed By: #### U RTPRT #### [address] [address] [employer] Research Technician: Gonzalo Cain MD Protein S Activityon 024 Protein S Activity 54 % Low 59-130 [facility] Comment on above: Result Comment: Patients [...] VIII. Performed By: #### U RTPRT #### [facility] [address] [place], [place] [id number] [employer] Research Technician: Gonzalo Cain MD Factor V Mutationon 08-11-19 24 F 5 SPECIMEN Whole Blood Normal [facility] Comment on above: Performed By: #### A PARVP, AF5MUT, APRTSF, ACOXAB, ACOXA9, APTMUT, AMTHFR, APROTS #### [facility] [address] [place] [address] [employer]ane Research Technician: Arben Carrington MD #### AT3A, PROSAC, HOCYS, ACARDA, FT4, PROCAC, TSH #### [facility] [address] [place] [id number] [employer] Research Technician: Gonzalo Cain MD FACTOR 5 MUTATION Negative Normal [facility] Comment on above: Result Comment: (NOT E) Indication for testing: Assess genetic risk for thrombosis. NEGATIVE: The factor V Leiden variant, c.1601G>A; p.Xah023Ufq, was not detected. This does not exclude [...] function in the F5 gene variant c.1601G>A (p.Pir420Tom). Legacy nomenclature: [id number] (1691G>A) CLINICAL SENSITIVITY: 20-50 percent of individuals with an isolated VTE have the FVL variant. METHODOLOGY: Polymerase chain reaction and fluorescence monitoring. ANALYTICAL SENSITIVITY AND SPECIFICITY: 99 percent. LIMITATIONS: Diagnostic errors can occur due to rare sequence variations. F5 gene mutations, other than p.Wxg682Gdg, will not be detected. This test was developed and its performance characteristics determined by [facility]. It has not been cleared or approved by the [place] Food and Drug Administration. This test was performed in a CLIA certified laboratory and is intended for clinical purposes. Counseling and informed consent are recommended for genetic testing. Consent forms are available online. Performed By: [facility] [address] [place] [address] Radial Drill Operator: Nikita Pantoja MD, PhD CLIA Number: [id number] Performed By: #### A PARVP, AF5MUT, APRTSF, ACOXAB, ACOXA9, APTMUT, AMTHFR, APROTS #### [facility] [address], [place] [id number] [employer] Research Technician: Arben Carrington MD #### AT3A, PROSAC, HOCYS, ACARDA, FT4, PROCAC, TSH #### [address] [place] [address] [employer] Research Technician: Gonzalo Cain MD PT Mutation [id number] 01-30-20 24 PT [id number] VARIANT Negative Normal [facility] Comment on above: Result Comment: (NOT E) Indication for testing: Assess genetic risk for thrombosis. NEGATIVE: The Factor II, prothrombin [id number] mutation, was not detected. Other causes of [...] M.D., Ph.D. BACKGROUND INFORMATION: Prothrombin (F2) c.*97G>A (N10050P) Pathogenic Variant CHARACTERISTICS: The Factor II, c.*97G>A (K31138E) pathogenic variant is a common genetic risk [...] CAUSE: Homozygosity or heterozygosity for F2 c.*97G>A (G32323Y). PATHOGENIC VARIANT TESTED: F2 c.*97G>A (P70725H). CLINICAL SENSITIVITY FOR VENOUS THROMBOSIS: Approximately 10 percent. METHODOLOGY: Polymerase chain reaction and fluorescence monitoring. ANALYTICAL SENSITIVITY AND SPECIFICITY: 99 percent. LIMITATIONS: Diagnostic errors can occur due to rare sequence variations. F2 gene variants, other than c.*97G>A (J88101N), will not be detected. This test was developed and its performance characteristics determined by [facility]. It has not been cleared or approved by the [place] Food and Drug Administration. This test was performed in a CLIA certified laboratory and is intended for clinical purposes. Counseling and informed consent are recommended for genetic testing. Consent forms are available online. Performed By: [facility] [address] [place] [address] Radial Drill Operator: Nikita Pantoja MD, PhD CLIA Number: [id number] Performed By: #### U RTPRT #### [address] [id number] [employer] Research Technician: Gonzalo Cain MD PT PCR SPECIMEN Whole Blood Normal [facility] Comment on above: Performed By: #### U RTPRT #### [address] [address] [employer] Research Technician: Gonzalo Cain MD Coxsackie A9 Titeron 024 [place]ackie A9 Titer <1:8 Normal <1:8 [facility] Comment on above: Result Comment: (NOT E) INTERPRETIVE INFORMATION: Coxsackie A Serotype 9 Titer Single positive antibody titers of greater than 1:32 may indicate past or current infection. Seroconversion or an increase in titers between acute and convalescent sera of at least fourfold is considered strong evidence of current or recent infection. Performed By: [facility] [address] [place] [address] Radial Drill Operator: Nikita Pantoja MD, PhD CLIA Number: [id number] Performed By: #### A PARVP, AF5MUT, APRTSF, ACOXAB, ACOXA9, APTMUT, AMTHFR, APROTS #### [place] [address] [employer] Research Technician: Arben Carrington MD #### AT3A, PROSAC, HOCYS, ACARDA, FT4, PROCAC, TSH #### [address] [address] [employer]arcane Research Technician: Gonzalo Cain MD MTHFR Gene Mutationon 2023 MTHFR 1286 A>C Mut Negative Normal [facility] Comment on above: Performed By: #### A PARVP, AF5MUT, APRTSF, ACOXAB, ACOXA9, APTMUT, AMTHFR, APROTS #### [facility] [address] [place] [address] Sugarcane Research Technician: Arben Carrington MD #### AT3A, PROSAC, HOCYS, ACARDA, FT4, PROCAC, TSH #### [facility] [place], [place] [address] Sug[employer]ane Research Technician: Gonzalo Cain MD MTHFR 655C>T Mut Homozygous Normal [facility] Comment on above: Performed By: #### A PARVP, AF5MUT, APRTSF, ACOXAB, ACOXA9, APTMUT, AMTHFR, APROTS #### [facility] [address], [place] [id number] [employer] Research Technician: Arben Carrington MD #### AT3A, PROSAC, HOCYS, ACARDA, FT4, PROCAC, TSH #### [facility] [address] [place] [id number] [employer] Research Technician: Gonzalo Cain MD MTHFR Interpretation See Note Normal [facility] Comment on above: Result Comment: (NOT E) Indication for testing: Determine genetic contribution to hyperhomocysteinemia. Homozygous MTHFR c.665C>T: Two copies of the MTHFR gene variant c.665C>T (previously designated C677T) were detected; the c.1286A>C (previously designated W3086X) variant was not detected. Homozygosity for the [...] has an effect on cardiovascular disease. The [employer] Practice Guidelines indicate [...] a contributing factor to hyperhomocysteinemia. Variants Tested: c.665C>T(p.Twt960Ekv) and c.1286A>C(p.Zgn858Opy). (legacy names C677T and D7915D, respectively). Clinical Sensitivity: Undefined; hyperhomocysteinemia is caused [...] developed and its performance characteristics determined by [facility]. It has not been cleared or approved by the US Food and Drug Administration. This test was performed in a CLIA certified laboratory and is intended for clinical purposes. Counseling and informed consent are recommended for genetic testing. Consent forms are available online. Performed By: [facility] [address] [place] [address] Radial Drill Operator: Nikita Patnoja MD, PhD CLIA Number: [id number] Performed By: #### A PARVP, AF5MUT, APRTSF, ACOXAB, ACOXA9, APTMUT, AMTHFR, APROTS #### [facility] [address], [place] [id number] [employer] Research Technician: Arben Carrington MD #### AT3A, PROSAC, HOCYS, ACARDA, FT4, PROCAC, TSH #### [place] [address] [employer] Research Technician: Gonzalo Cain MD MTHFR SPECIMEN Whole Blood Normal [facility] Comment on above: Performed By: #### A PARVP, AF5MUT, APRTSF, ACOXAB, ACOXA9, APTMUT, AMTHFR, APROTS #### [facility] [address] [place] [address] Sugarcane Research Technician: Arben Carrington MD #### AT3A, PROSAC, HOCYS, ACARDA, FT4, PROCAC, TSH #### [facility] [employer] [facility] [place] [address] Sugarcane Research Technician: Gonzalo Cain MD Parvovirus B19 Panelon 08-10 Parvovirus IgG B19 0.18 IV Normal <=0.90 [facility] Comment on above: Result Comment: (NOT [...] APTMUT, AMTHFR, APROTS #### [facility] [address] [place] [address] [employer] Research Technician: Arben Carrington MD #### AT3A, PROSAC, HOCYS, ACARDA, FT4, PROCAC, TSH #### [facility] [employer] [address] [place] [address] Sug[employer] Research Technician: Gonzalo Cain MD Parvovirus IgM B19 0.24 IV Normal <=0.90 [facility] Comment on above: Result Comment: (NOT E) INTERPRETIVE INFORMATION: Parvovirus B19 Antibody, IgM EFFECTIVE 05/21/2023 REFERENCE INTERVAL CHANGE Due to reagent kit programming internship recall, an alternate kit has been validated and implemented by [facility]. The following Reference Interval applies to this [...] levels of specific IgM antibodies. Performed By: [facility] [address] [place] [address] Radial Drill Operator: Nikita Pantoja MD, PhD CLIA Number: [id number] Performed By: #### A PARVP, AF5MUT, APRTSF, ACOXAB, ACOXA9, APTMUT, AMTHFR, APROTS #### [facility] [address] [place] [address] Sugarcane Research Technician: Arben Carrington MD #### AT3A, PROSAC, HOCYS, ACARDA, FT4, PROCAC, TSH #### [address] [place] [address] [employer]ane Research Technician: Gonzalo Cain MD Cardiolipin Ab G,A,Mon 08-08 Anticardiolipin IgG 0.7 GPL Normal 0.0-10.0 [facility] Comment on above: Result Comment: Reference Range: <10.0 Negative 10.0-40.0 Equivocal >40.0 Positive Performed By: #### A PARVP, AF5MUT, APRTSF, ACOXAB, ACOXA9, APTMUT, AMTHFR, APROTS #### [facility] [address] [place] [address] [employer] Research Technician: Arben Carrington MD #### AT3A, PROSAC, HOCYS, ACARDA, FT4, PROCAC, TSH #### [address] [address] [employer] Research Technician: Gonzalo Cain MD Anticardiolipin IgA 1.9 APL Normal 0.0-14.0 [facility] Comment on above: Result Comment: Reference Range: <14.0 Negative 14.0-20.0 Equivocal >20.0 Positive When results are Equivocal, it is recommended to retest after 4-6 weeks. Performed By: #### A PARVP, AF5MUT, APRTSF, ACOXAB, ACOXA9, APTMUT, AMTHFR, APROTS #### [address] [id number] [employer] Research Technician: Arben Carrington MD #### AT3A, PROSAC, HOCYS, ACARDA, FT4, PROCAC, TSH #### [address] [address] [employer]arcane Research Technician: Gonzalo Cain MD Anticardiolipin IgM 1.0 MPL Normal 0.0-10.0 [facility] Comment on above: Result Comment: Reference Range: <10.0 Negative 10.0-40.0 Equivocal >40.0 Positive Performed By: #### A PARVP, AF5MUT, APRTSF, ACOXAB, ACOXA9, APTMUT, AMTHFR, APROTS #### [facility] [address] [place] [address] Sugarcane Research Technician: Arben Carrington MD #### AT3A, PROSAC, HOCYS, ACARDA, FT4, PROCAC, TSH #### [facility] [address] [place] [address] Sugarcane Research Technician: Gonzalo Cain MD Homocysteineon 08-06-2023 Homocysteine 5.4 umol/L Normal <15.0 [facility] Comment on above: Performed By: #### A PARVP, AF5MUT, APRTSF, ACOXAB, ACOXA9, APTMUT, AMTHFR, APROTS #### [facility] [address], [place] [id number] Sug[employer]ane Research Technician: Arben Carrington MD #### AT3A, PROSAC, HOCYS, ACARDA, FT4, PROCAC, TSH #### [facility] [employer] [address] [place] [address] Sug[employer]ane Research Technician: Gonzalo Cain MD Lupus Anticoagulanton 2023 aPTT Coag (Bld) [Time] 25.4 s Normal 23.0-36.5 [facility] Comment on above: Result Comment: IV Heparin Therapy Range: 66.0-92.0 sec Performed By: #### L UPPRO #### [address] [address] [employer] Research Technician: Gonzalo Cain MD INR Coag (PPP) [Relative time] 1.0 {INR} Normal [facility] Comment on above: Result Comment: Therapeutic Range: Moderate Anticoagulant Intensity: INR = 2.0-3.0 High Anticoagulant Intensity: INR = 2.5-3.5 Performed By: #### L UPPRO #### [facility] [employer] [address] [place] [address] Sugarcane Research Technician: Gonzalo Cain MD PT Coag (PPP) [Time] 13.0 s Normal 11.7-14.9 [facility] Comment on above: Performed By: #### L UPPRO #### [facility] [employer] [address] [place] [address] Sugarcane Research Technician: Gonzalo Cain MD Protein,Tot,[place] Uron 2023 Creatinine [Mass/Vol] 221.0 mg/dL High 28.0-217.0 [facility] Comment on above: Performed By: #### U RTPRT #### [address] [address] [employer]arcane Research Technician: Gonzalo Cain MD Tot Prot. Conc. 15 mg/dL Normal [facility] Comment on above: Result Comment: No n ormal range established. Performed By: #### U RTPRT #### [address] [address] [employer] Research Technician: Gonzalo Cain MD TP/Cre Ratio 0.07 Normal [facility] Comment on above: Performed By: #### U RTPRT #### [address] [id number] [employer]ane Research Technician: Gonzalo Cain MD Thyroid Stim. Horm.on 2023 Thyroid Stim. Horm. 1.89 uIU/mL Normal 0.30-5.00 [facility] Comment on above: Performed By: #### A PARVP, AF5MUT, APRTSF, ACOXAB, ACOXA9, APTMUT, AMTHFR, APROTS #### [facility] [address], [place] [id number] [employer] Research Technician: Arben Carrington MD #### AT3A, PROSAC, HOCYS, ACARDA, FT4, PROCAC, TSH #### [address] [address] [employer] Research Technician: Gonzalo Cain MD Thyroxine, Freeon 08-06-2023 Thyroxine, Free 1.1 ng/dL Normal 0.9-1.7 [facility] Comment on above: Performed By: #### A PARVP, AF5MUT, APRTSF, ACOXAB, ACOXA9, APTMUT, AMTHFR, APROTS #### [facility] [address] [place] [address] [employer]ane Research Technician: Arben Carrington MD #### AT3A, PROSAC, HOCYS, ACARDA, FT4, PROCAC, TSH #### [facility] [address] [place] [address] Sug[employer]ane Research Technician: Gonzalo Cain MD ANTI CARDIOLIPIN AB IGG IGA IGMon 08-04-2023 NATHAN IgA <2.0 Normal 0-19.9 [facility] Comment on above: Performed By: #### A CA, 5124-3, 40690-3, 65338-5, 69593-6 #### [facility] ([id number]) [address], [address] [address] NATHAN IgG <1.6 Normal 0-19.9 [facility] Comment on above: Performed By: #### A CA, 5124-3, 98107-7, 59450-3, 11293-6 #### [facility] ([id number]) [address], [address] [place] [address] NATHAN IgM <1.5 Normal 0-19.9 [facility] Comment on above: Performed By: #### A CA, 5124-3, 06109-0, 94830-8, 45425-9 #### [facility] ([id number]) [address], [address] [address] Anti cardiolipin AB IgG IgA IgMon 08-04-2023 Cardiolipin IgA IA Qn (S) [facility] Cardiolipin IgG IA Qn (S) [facility] Cardiolipin IgM IA Qn (S) [facility] CMV IgG IA Qnon 08-04-2023 Interpretation and review of laboratory results Abnormal [facility] CYTOMEGALOVIRUS IgG >8.0 High <0.9 [facility] Comment on above: Result Comment: Interpretation-------- <0.9 Negative 0.9 - 1.0 Equivocal >1.0 Positive Performed By: #### Penelope TERAN, 5124-3, 16911-4, 73805-2, 82024-6 #### [facility] ([id number]) [address] [place] [address], [facility] [address] [place] [address] CMV IgMon 08-04-2023 CMV IgM IA Ql [facility] Comment on above: Interpretation-------- <0.9 Negative 0.9 - 1.0 Equivocal >1.0 Positive NOTE The following results were obtained with the [employer] 2200 ToRC IgM test. Results obtained from other [employer] assay methods may not be used interchangeably. CMV IgM IA Qlon 08-04-2023 [facility] CYTOMEGALOVIRUS IgM <0.2 Normal <0.9 [facility] Comment on above: Result Comment: Interpretation-------- <0.9 Negative 0.9 - 1.0 Equivocal >1.0 Positive NOTE The following results were obtained with the [employer] 2200 ToRC IgM test. Results obtained from other [employer] assay methods may not be used interchangeably. Performed By: #### Penelope PARUL, 5124-3, 19496-5, 87836-9, 00967-2 #### [facility] ([id number]) [address] [place] [address], [address] [place] [address] Cytomegalovirus antibody, Ig Blaze 08-04-2023 CMV IgG IA Qn [facility] Comment on above: Interpretation-------- <0.9 Negative 0.9 - 1.0 Equivocal >1.0 Positive Syphilis Total(Unknown Syphi lis Status)on 08-04-2023 T. pallidum IgG+IgM IA Ql (S) [facility] Comment on above: NON REACTIVE No serologic evidence of infection to Treponema pallidum (syphilis). Repeat testing may be considered in patients with suspected acute or primary syphilis in 2 to 4 weeks. T. gondii IgM IA Qlon 2023 [facility] TOXOPLASMA IGM <0.2 Normal <0.9 [facility] Comment on above: Result Comment: Interpretation-------- <0.9 Negative 0.9 - 1.0 Equivocal >1.0 Positive NOTE The following results were obtained with the [employer] ToRC IgM test. Results obtained from other [employer] assay methods may not be used interchangeably. Performed By: #### A PARUL, 5124-3, 03878-8, 09937-5, 22525-3 #### [facility] ([id number]) [address] [place] [address], [address] [address] T. pallidum IgG+IgM IA Ql (S )on 08-04-2023 [facility] Syphilis Total <0.2 Normal 0.0-0.8 [facility] Comment on above: Result Comment: NON REACTIVE No serologic evidence of infection to Treponema pallidum (syphilis). Repeat testing may be considered in patients with suspected acute or primary syphilis in 2 to 4 weeks. Performed By: #### A WI, 5124-3, 11559-0, 25209-3, 49080-5 #### [facility] ([id number]) [address] [place] [address], [address] [place] [address] Toxoplasma IgMon 08-04-2023 T. gondii IgM IA Ql A1 NINF - 0.9 A1 [facility] Comment on above: Interpretation-------- <0.9 Negative 0.9 - 1.0 Equivocal >1.0 Positive NOTE The following results were obtained with the [employer] 2200 ToRC IgM test. Results obtained from other [employer] assay methods may not be used interchangeably. dRVVT/dRVVT.excess phospholi pid Coag (PPP) [Ratio]on 08-04-2023 [facility] Negative Normal [facility] Comment on above: Performed By: #### 5 0410-0 #### [facility] ([id number]) [address] [place] [address] [address] [place] [address] dRVVT excess phospholipid Coag Ql (PPP) Negative [facility] Outside Recordson 07-08-2023 Outside Records [id number][facility] Rad - Ultrasound Report [id number]#1.[facility] 06-01-2023 Outside Records [id number]#1.[facility] - [facility]ound Reporton Rad - Ultrasound Report [id number]#1.00[facility] Coding Summaryon 05-01-2023 Coding Summary HTMLBase 64 QhwrjcwnPVy5iZb+PGhlYWQ+PE1F RFZzM58kmJQizY3pQ1KRNPjVVvxt UIVNXUiADsAmfzKhFP8nsLEsUIYh IC8+NC8bFQVqUubikSEjo4Q4xUZ1 Q56oyg2cSLrmfPM7VQMvRlRwhjge h7rmsNn9SGfmXwmrBjEg HNFvtF62KHR9hT36Gd62kBSwsAWv d9jdhKm8IbRrBWHnXDC8sVqqYWlt w3PfMEMrJ99nhNEpc1X5 AMBmgWvzvEUoLjVdnUM0xI3gFOau wecad1xewhqyCeu1ah86rSCwv8Q7 gMF1K8RaskF6BZNyfDEs PakopSFJjR2umsggz9dxkfpqIqJz URJlCFk7NYr2KYCnsIeyYnLqMZ47 LLY8GHKkspRyT1WySRSu pBbsVtH9r2F0Rq2OV3IHPpaqR6RE TUFSWTwvdGQ+II43js03D0XvFzcv Maz5AJKtNWE1fJN6fN7t VVRpMBwco7U5lSJ1A9NdbeCdpg0b k3njDZXcTHmdX39shNUbk9S0XWSp vZQ3LNXpkUjiLpRndJ06 Oyc+OGQolWsft6PcCtvpl8ztg6cs nYx9BhnxBZHaxiPbgEdlBQU0a2Cc Ob1pMLHmwKJ7bUR8jW7q WqJxEmJ5GCmcS202ZjPoeVBsGyew D09rD0BwrMM+IGKqTrb0YSPcuZkx ZW3bK9GcQDGofdbglFMu eQkiUC8vCYTsgsebRMRcdM3gFHCu G3o4MjPnSoQ5FPgcT1StBQDqrujf Js38aU0nLbXeJmL3AHqq S6SrkzS4SDJhlUMoISjeCFG8M13g l6V3JYUlMCFpQHI2ePX5kY1nuIoy bjogbGVmdDsgdmVydGlj APffYDiwE980NKMsuJvsPpPgCBgm ZyBEYXRlOiAgMTAvMjAvMjAyMzwv dGQ+QXGrULT6vNbsDNIb sVUfOYvuVf1uzOnhnNqhNS9iRNUn ggfkFIGscQ2eBUUwaNBueArwRK7e AWSgjegwp408HqZlYNB0 SGXkjJCsA6KowU3eUbPaELNaOIPw K8PdfDLpJOceQ830DRrrVkA8OHMl khMyU1ZkDNXwuHuwCtE6 s6R5Pf0Mp2LdmyxxJ7GmrLXfGmSn QqrxWGc4T3TgRfynqZQ+QJ74EAMb IH95EQh7IQH4uXffVKdw GEPsT4AkxY9gNiYjXQEgSKWwXdq+ PHRhYmxlIHdpZHRoPScxMDAlJyBz kRhqCA8wRs9tQQWvUHUw gIxehBQeRxXca4zuDTSiJMfeWS7z dVmtU5ZtkUZ0AHRni2d1Hs15H88p E2GfcJI+NAIizTE4uTL8 mA6ePlLoNhK3PLjcC975SmBvcKXu Ssdbm5gxg4dzuPl8DzD1BRNivxHf rDpbTVN9y5IaYr46W13y YNvoUQWbTKFsZTQoCUNnnBafeu6p hZ3rAy4+FNBinCE8rGL0dT3qMgXa PzM6NJxoY749QiLeuDUi Mjvik2gkj3ficDz0HkTnSFSgidVe cGanDQL9m2BxFs97W3EwxCfnn5Th Lir8ue49pXQqd8H1yHQ2 G6ZxXGCroaeuaYZgnUgtIE1tQZXl havfUNZmqJ8bVMKbX0u1CiHwXaQ0 DUsyX8XudpX4QRJtaJYa JAVyyKEPcK6upknui8ciqhszVkEx ODMtLMp5GGz0SHNryGonVaLqQAK8 LaP4ZIZ8wUZvlD5hxWik neemqT0gSny+QPM8rGYysTWOWD8d OjwvdGQ+YDXrEGI6gNjeUWhpDCKh tP1tQPHxM6o2VaKrYlJ5 DBrdA7BjyhK4MUReeXVuQAIolGSV mI8ydypqs3eazfvmCgFdHBGkRNk1 FTn3JFFjxLmdLvMkNXN1 OdL5ZLS9hDBfkT4jaEsentjfgO1i Oyc+IjslmYyfJPW9GYc4W3OfPqv5 KCUvePgpDY3jfAYcWVuf Dj5qhEzbpUjmRF9eIMEwkzvec405 PgHgu0wmMPOdwAMvSYaqZFN2N94c o2A2JOTdRBHbUXS0kJS9 bO1rnHxteccviDBgnKtmbzQdzXzw JSayARdjM276SFUelGkuFcBuZXy6 S7XiTkp0WEXvoMszLM1i mJDaYEvwTv6udZteaHnwDY0bHELm ddxiz774MgGnv4eaTQPnhHOaOAiw XRB7G94dh5K4SYKvUMWr UKV1cOS0fS0eaWwqyuzsgNYwbSwx bkZsaGmmSUwnUMkuI883PTLkdMib ZzPppMj8P4FvKsh9ELHa pOugLD6vdRCaLPinZv9vqFookNeo CY2rASLekjauw256ZtWcc3uzQKWo jFSoLEnzXAS6W06tv0B2 GHIwTCGqIUJ0sAB4rL1ucUmbrwwc uUDphZygqkDklZrlJGkbDVtcR919 IHRvcDsnPlBhdGllbnQg ZNaiHVa3M6YqViltrQY+PE71LGNx GF29mCZuaFVlb2cuaDe8IaDnLZIv PLI4mQvqFZpkt5OlVNJo W68mhJFlg4V1FYGllVgvoGPbFsCo vIB3fQ0uYHvncrfse5ulbfqkOafq e4wyuu87iC17R42lMXqd GJCeSNLyJUSxPXLmcCchsy0euU8j Ii8+MIEjfUI6iUB1aX7jRNIjGxY1 JEejR847PvMdoNZpEokw p2bbu4jhhLu0OdO8KUBlkcZumPvj YMA3z6WqCw45U43yOBniYZLsQURb MWVcEAEhzLmrau6bwL7p Ii8+ILVzmGI4kQV1aT4sVeMxObH6 NLtuR165ZfWkqWCfOrckK42mK2Yu dXA+QDEeFod9HDMidFjj ZC9lkYMlGHkmIn1bHBC0ZoAcXlPc SLgmJ1IuXITetlncssskiDZ1FZRs PIAauO67Qy7zkXyzUYGx vPEYxM4edjaue6rvipnlMkGkPJLu CKd0HVt0EKKptRzfBmUeWWJ2JxI0 YOC1aGRgcX3jtJpydzuj zQ0eM1EdUFQuiangGo38wH3bAuXn UyK5DLjuFjr+T2nIW5uUIjkrLXYW D3IbMG5FWI09IR08lRVb z7A7hAU2I9XpYCInqptjifbxiYO1 UBMxKPVieZ43wSBeMQmrGo1cq0I7 n109ZKWqZQXcaP37Bu8m zOkzYATqxQSOjW4zdrkzx7aouodh VbHiHJNkXVm6JVh8ZYGwhDocPnRj BGG9XhI5TUT8sBCevV7z oJekenxlhI1pPqo+MDMvMTIvMTk5 NzwvdGQ+HVTrHPG9pDrcKRhwDDAy oZ9iVVWjL8i6SzKnJmG3 VRdtM4FvWHMqtnmzOt82rO4aYiIy WkI5DOshR3JbpmR7LQGhiQFoXTcf DEK9A76xv5D3ISInOWCi WBP7aND8iM2byLhlgvcbdREapIuf dyWkoVymYLuhTSyuK022ULDdkZcs WeE4GVwvHVFdQJ48OI08 sXMxf5I2zLE5C1CcHESsnylqrxgw mZG6TGQqYWCcaM57zAYgLHarLr8v o0M0p598TJBkMGGqyD67 Be0hyEwcCDTyzJVWlK4sviwxx7mn vauxNeFlURHuNZr8UAh6BDQgwQda WfCySNG7ZmP5BAT4vBHx tC7ihQtswencbM6vJsq+RkVNQUxF VS01PR98uDTed2L8wNZ7V9PpJLUy afpadtiraFY0BOEkHQMb dZ56sAXjXAvpAn9jo0Q0s847FLVj KCVrsW69Zj5xkQbuUARxgNNGrG5i qrqyt2lhedqnQxSgQWEv ZDq8JJi6RBChnKbvBcWlLZN5VwL9 MXA1zDJolT3cqOmckbphiI1zMrw+ E0X7L2PxLkmrbZX+PC90 ZDSlDE90uUDsxIIpn4lqmCv1MrAy XSBaJLZ2qBanQKmtw3GkQAWmU83t hKCnl8Q6WWMfxGatoPXn KqCydWD9uN4fGTaplxoqd7eloapa Qzcqh5aemx19eM19Z66oRNmnWEAc BUPoCJQuITWlyOvdgu2n kF7vLm8+DJYfrXW1iKR2mY1eVeEi RlX8VJnsX498UqGhnTNrKoali1oc w5pxfNe8YkHrYWDoawDo dFrsDJK3e7SbAx26L35dMPebWUBz QLBzLHZgLRMycKktpz9blZ9sId7+ BA1gv6ypox72lH52hBV+ RFMjCUG0fGmoNQlkXNKkuX0pRVkk IkT1RVPcCbRvlE08mLDjWCtwFk6t sCaazTtyXO6xXFYmdxgt m483CsUnc3ztCAXbiXHsYSqeRNX3 G56av5U7TVAdGPKqEUL3vCE9cV8c bGlnbjogbGVmdDsgdmVy rZijYVmzHHjdL753VGPkvTqwRaZv jFLnV7vrrvOJLH5kIgjlrSD+PHRk KES7bXfzNCxeOJLkxR1u GJTiE8i1WnXuBwD4SMilM7KzxzP1 PQQuoVZvJPCwdQHMrL2xdqupe6il jbpiGbLoIVJuESq7EVh4 OPTzjRfeUjHvNLX5ZyA1TYC2oUFb wU1rkVqqetpabD9rFrr+RklOOjwv dGQ+GEIqMBS4hZzlLSvs OPTpgX7sKAIqH3s1FgAbPqF6NWak O9WtqfD0BSBcjIHzPLCfyZEWpM5o yhldz4fjzgbpXtJzYMYt TMb6WDr2NQZueMsoOpNgMNW1SaA5 MRL4nRHtsA5atZxpbrexyJ4cCxl+ TVJOOjwvdGQ+PHRkIHN0 tTzdIKpvUUJinV4kVLGvJ0c1KlVr ViS0GIdbG9VmylE3AMWgkWNxOZMb aTAYzW6eyuxqq3sudsjr XdDlFXEsWQg0CEe3TSZahFnaXpPl OCQ9FcE0XYZ2gRMfiK1hrHfbrlvl mF2jKol+API5AKF3GJ98 QA17R7AyYkwsfQKomPG+PHRhYmxl DWstCTRwDLsyXVZxTnPizXpzAV8u He6uYYPjRTPejNpveQXy OiB (more content not included)... [facility] Coding Summary HTMLBase 64 RcoceuuiLYp0bJd+PGhlYWQ+PE1F DBSqM61rtICtcD6yS2QZMGwXXaho DXXYXQvZAiFutlDeFT6jzREdLWRm IC8+VH6bBMVzNaohpCUhc0Z0aRN7 S79xeb0kNZhhnTL1TCMmEhUvsiqn i6pzfOh9FPamFkavNyJg VPFvtE32LPR5vU29Iz35eKPfpNGt x7wxiMu0WfEsYSDxUIK7mAkuPFah u3OvGNUtD03biDOit2I3 YAZcqNtxbRKjBsOeaKJ3jT7xQMcx zymty2dojzalUis2lq30sHKjp7A7 gSY7O7ZrrhI8ODTkkHBa RvsbiLLRqW4nkmibq9lgzqpoYwHh GDLdGUl9YUw5UTNjqIysPePwOM20 HQF6TPPykgWxZ9HuFPWd oQhdYtM3z0E9Bw6DN5JICiukG9NE TUFSWTwvdGQ+WV07wc29Z7MwZmfl Hje8XJMuMAK9lKG2vN7o PMDrJXxvk6U8lWX8C5WetaMozf0a r8izBYThJWykT68frFYom8H2SWCu tIH0KIEkfFlfYuXdfH31 Oyc+SHCgzKgbw6AaHoumb9sde9am uAc6OtwdDPRgicNdoIuoHTT0k3Cz So0pEZThsJF2iFY6oS2m ZqFdSoT6SKfcV109ArIahGTvJvla H47oO3XtkZW+BYKdMlu5WUVsiHlp SU1xK5UzRBJlqekueIDs aDzmAS8zXGJgbdqsDSPadS0yOZKm F3q9YmGnAeZ3CSlwF0SoOTJsgoxb Gw67lZ1sZtMzPjK6JZxa E0EvuyQ4KMQvcXTxSJriSDK5G57y w9I5HLEpGOEwSYE7nYL9lM8pjYer bjogbGVmdDsgdmVydGlj YZneXXvcV962TSQjrHfiXeTsAVmm ZyBEYXRlOiAgMTAvMjAvMjAyMzwv dGQ+VVCzOXB1oWjkZTCy qOKcUZwyQd2khCevgVrnCN1aNGRd ctgfSELjfN0hXTVpaJJpmJovOO6k IKEvxeppo871BmRgCUX6 LDTnyBMhA3NokE4pFwUmDFKbIKEv V0GyvZJcPUazT972HTyzIyO3SPCm jfZoC1RbIEOsfRuxFyX3 x9A3Hj5Ys6EalfecZ2GcnHJeLaIi RkuuFAg5V1UhMqakcFT+GL36KNZu XQ04AHn8EPO1lTvfQDxp KTGbH4YurU7zBwStSUIgFBPgUlc+ PHRhYmxlIHdpZHRoPScxMDAlJyBz yAyfIO9cAd1hDSZwRFQp kPmthSDrCtLav9bjAHHuHMbzEQ2i aBerZ0BkhZH9PCUco3o5Qa98F18q V0IvyBA+VUBidEM4pHC8 aL8hJjHwMkX5MKvrB672ElPlmSPe Kqrva9mea0iyzHu1PrR6AGYwsoVl uNmjAYJ0m4LwUv94X71m TFjlYIZvYFFaSXVfXADyiPfbju6s yY2iPx5+SQDcpKK4oMW4cU7pIiKu JmX0VVveJ074DvWkcOLl Fjoao2wxj4lmfNf2WrVfSVNpkiSy qVbhASM1v8LtSy02U5FolCojf6Ww Ekh4vc62yELsi3Q7aBL5 S2GrVCJajyeniJXqiBcuKV1wTUIo jtdqUFUivR7uNZIrY6o6KzPfAeP8 MQwgK8SzifH0MXZrnJMb EWRxeDXUvJ3zwpuug6eozlomKjHc AAIfCJc8ZYk4OXTvpVjoYgTgBKV7 OeW3VAX4mSTnkW0fmXmk ebsxmJ3bXwf+FUS8nDGdcHZVQV0s OjwvdGQ+YFRgDMO0qKhqAKonBSZp oW7yWNFqW9t1LrVtMgF5 MAabE1LnadK1GMHauGBmZBRlpYHZ wU1pzibuk2edcjngQnCyUPVhNWr3 AVv4NIPnwVvwBcBrFBR6 LtU5WEO3kHMctO2icGodjvnrvE4z Oyc+XepigPhiYYN9KJs6V1WkIwx4 NDJifMpjAJ5skNIwOMfu Je2wsIewrPvhLR7yUKFipknrx163 HlMxa3loNHJxfQMcXNseMON2X69l z5U0DDCkQJCiCZZ1wEV9 wI3nxIcwznswuMUgpNuaccThbBgk NAmwSUsdD311VHLggLpvIqZwFMy1 T7IkDbm2XPCsaTupZN2a gAMkEQjtJj2heFqccRwkSL9vLRQi qbzgb735XrDcv5drLTIhdSBaVMev LOM1C91bs5S0YSXiSTQz IEI1yGH0dK6baAywvoyouZQntYct fuEthDipFAvzLJbpG624CTOfjGan RmAjeXk6X1BoJin1GEXh aFvxFG5wrZCtUKbxAm0bkQslzRfv KH9uFHMaokwne058VfEmm6bbYVNu mMKkORttIDV2M40hh7E9 ROOiHZPnGQW3iCB2uF9toKgrnexb xFEtaFyghuZynDueVLmnQDpnK226 IHRvcDsnPlBhdGllbnQg TJkeGBr7E5NcLkroxMY+JA93NFFl UR71qROfaPDoy5yxcAk1BxEmFJVg HEI8vIfwILgaf9SlRPMp P22ttVLrz5A0FCXnvIplpMOfYzCr qCA2oG2vWSmadpxvm8tpatpxNgpg n4sikv78aQ57D05vWZux UEJkUTShZWAmZFPebEtltu7tbH1v Ii8+BSZshCP1nPK2bT6tJSVfRlU8 MLlvC122ZhJxlFGsKoqg m6zxh2wohDd7PzN7STIlakTabEww MRA4y0KpEa98W43kOBlnTASnKLZn WTFuXEHkjSpbwk5syN5t Ii8+WWCntQG5iSJ2fA9xUrBdPlR0 NDgcC440VaIjyRZrEwivA23hB7Pk dXA+VYYjOhb3QBJjiIpy HA4bsJHvBPkvOc3wHNM2TeDvTkMc SDdhF5PbQCQclkstdpnmvUR3VGUh EQVtjF16Nc6uvXauQXNa uMQVvH3jxezmr1gmkmrvToMmZTKx NAc3WTl7BAPtkOovTdLlJFW2RrY7 OCZ9dPHukZ7uyNwvldzm rB1vU6GrEWVehlwnUr49vX4zCxAg QoV8XCnhVml+C5kGG8gOWvotVOZD R2GnXT7VNM03ZZ64zYVc b3R3bXJ3J4LhHEQlhyofafjzjZG6 SJYqGRHfgM10gEJrEBqjLk9xq8C6 y111HFHvLRWhkT87Sp2h sKwyKSEooNSIiD1fzrdhq7erfbqs YfSbJHRoKFb3QEr7CFGscWbfMeLv RQD0JtJ9YQQ0rGXcdK5g qVgldhrzhL6oKji+MDMvMTIvMTk5 NzwvdGQ+JXIdJBT8zKtnSHyeQNUi kP6nNYMbS9h1CoYsIjJ0 ZZspT8BlBHUtyblbWa64mX5oMdBa NvL0DVyyC3EvsdR5XGFaiTBvQGnx RFF9U37zd7R4ATIpTUTo GFQ4sKI4eZ7rgWqaarvguATorXak bsMhlVxwGSkgWXltD912JIHatEtf TdM5GApuXKRxOR21JT71 hUNoz9J4vFJ5O7RzCHQttxwrfyhj dQK7ODCbXZMsoU49mOCcCPkrTx6x t6A9z913OZDjSAJxiI30 Gy6rvPnlOTOskMNJhX0tezigc5eb kynsYtPyACJdIGt0TDz5ZFWlcRpk QkDuTPK5VjM8FBS4lAAm qE2sfBudzlgvkT4hXjk+RkVNQUxF WU74EH36nGQib9B8xTW6R6YpWCEf dewmxmjnlVM1AINuMKFq rN75aLPmLYmqRu5so8L5x983ULIq XWMxqZ69Tr4iuTxaIGEypQIIgZ8n rhhyw8pscqvdUbOiIZXs NQs6GZk1MEQxfGctGrGrIPP0EqN6 PZS5iIFmeW4qfIsanmktoF3yXao+ P3W2O5ZkRjqvbIE+PC90 IHPdQJ63bXAcfRXpp3emrMe8EbMe JGUvZFW5vPpqULgnk5WzXGUoX86y dWAjy6T0LMMhqAxvxHUj FsVrnMQ0nI0vYUpshxyei3aaycwf Bncjo4mgtu84uI32E70eQJwnAIBk RNCrQSIlYQNpiQlxet6k rI6iDd2+VCQklIV0cBF4dT2fUrNq CkA6LJxlB501DjWwaGWnTluvd6qk k4wilEa0GbHrWPTvkpYn oGldVRU0j8RzGs69D89cXDbnMQEp WIXxWHKzYHJgdZvyut5viF9iCx8+ SE9ni6hhaq93nU82gDH+ PPSeRJZ7vBjzFErwIZZfnQ8nXAmm YaP0IXDnCqBkkA40vDYpPAbyWu2p hBlbaPkkRT7cRQBzveil z079DuSgo2nkDXUhsMLsISnbTLG3 A50hs4X6OTAhGBXjVRR8gCU0tS8r bGlnbjogbGVmdDsgdmVy nTnbVCtfSXopS259TQPlkHxlHnGl nDApK8yblwKGNO2tFgkpnBN+PHRk BDJ1iHdyQOmwSWAfvS9c GNCvF3w7GgTuVlU6HZkqC1DvyaL3 JQOeiZKdWKXplCMFaM5qxtmkh3xt lhtaCiXjPTZdOBp5LLk8 DIPqlTiaXeLiUSH7VoY3JER0eDJf oV0tzJmoqgiogY7xZho+RklOOjwv dGQ+SHQhIWG2cPbxRNdm LTCegY3sPWLvW9j6GbLhFzM4VGot P5TxmqH7SAGuvOIcZCFonOGOyG4t xmaui6nhqblyDrDcVGMr IIu6SAh0RIMglTntZuYjDPM7BbT1 XGQ0bMIqsO9bvRsfopgipK2pUga+ TVJOOjwvdGQ+PHRkIHN0 xQojUNzsWAGtsF0iTXYjB5q7UpWi JqK8XYerU6GxeiE4VGRplVGxJLXe gBLFsW1pvfrcd5yzgzxf VdKaBSJyQZi5XLw4PLVofBykRwBz OPZ9MqJ5JGB2uIJgpG3alMaebocb iM0zOww+ISI4QGB3HP34 AQ42B2QjKxpmkZUdpRU+PHRhYmxl IVbhUNPbOCdqLEVmNiAmbXwaRU8p Mp4kMWVaBWAunMmgrHZb OiB (more content not included)... Normal [facility] Reminder Messageson 04-30-20 23 Reminder Messages - From: DINORAH GILBERT DO To: [employer] ([facility]); Sent: 04/30/2023 07:53:33 EDT ! Show up: 04/30/2023 07:53:33 EDT Subject: Results Follow Up Actions: Call the ordering provider with results Due Date/Time: 05/01/2023 07:53:00 EDT Reminder Comments: looks good. no problems Results: Date Result Type Result Name 04/29/2023 13:59 Radiology US Thyroid From: Sindy Cormier ([facility] [place] ([facility])) To: DINORAH GILBERT DO; Sent: 04/30/2023 10:55:59 EDT Show up: 04/30/2023 10:55:00 EDT Subject: RE: Results Follow Up notified patient, patient stated she recently found out she is and that explains some of her symptoms as she had issues during her first . She is under care of her [employer] and she will continue to follow up with the ENT referral that was placed. I [facility] fax [facility] to [facility] for [facility] records. From: DINORAH GILBERT DO To: [employer] ([facility]); Sent: 04/30/2023 11:51:41 EDT Show up: 04/30/2023 11:51:00 EDT Subject: RE: Results Follow Up noted Normal [facility] MRI KNEE WO CONTRAST LEFTon 04-18-2017 MRI KNEE WO CONTRAST LEFT [facility] [address] [place] [address] Patient Name: SISI CELIS : 1995Sex: FAge: Race: WhiteMRN: [id number]. Location: LPOPPatient Status: DVisit #: [id number] Date: 04/18/2017 8:15:00 AMCompleted Date: 04/18/2017 08:53 AMRequesting Provider: MORIAH BOND Attending Provider: Report Copy To: OLMAN VELA Signs & Symptoms: Internal derangement knee, leftHistory: Order in RIS, No FB per mother Auth # [id number] Valid 04/06/17-05/06/17. Auth scanned into RIS.Comments: Exam: MRI KNEE WO CONTRAST LEFTAccession #: [id number] MRI KNEE WO CONTRAST LEFT 04/18/2017 8:53 [...] See series 4 image 16. Electronically signed by:Guzman Saba. Transcribed by: [email or web address], User Resident: Electronically Signed by: GUZMAN SABA @ 04/20/2017 02:46 PM Normal [facility] Vital Signs Date Time Vital Sign Value Performing Clinician Facility 10-10-2023 02:11-0400 SaO2% (BldA) [Mass fraction] 89 % JAK HANSON [facility] Comment on above: Performed By: #### U PCR, DSU #### [facility] ([id number]) [address] [place] [address], [address] [place] [address] 08-18-2023 10:27-0500 Body mass index (BMI) [Ratio] 44.19 kg/m2 [employer] Work Phone: [facility] 08-18-2023 10:27-0500 Body weight 127.97 kg [employer] Work Phone: [facility] 08-18-2023 10:27-0500 Diastolic blood pressure 80 mm[Hg] [employer] Work Phone: [facility] 08-18-2023 10:27-0500 Systolic blood pressure 122 mm[Hg] [employer] Work Phone: [facility] 08-04-2023 10:46-0500 Diastolic blood pressure 85 mm[Hg] Yanelis Posey MD Work Phone: [facility] 08-04-2023 10:46-0500 Heart rate 85 /min Yanelis Posey MD Work Phone: [facility] 08-04-2023 10:46-0500 Systolic blood pressure 138 mm[Hg] Yanelis Posey MD Work Phone: [facility] 08-04-2023 08:25-0500 Body height 170.2 cm Yanelis Posey MD Work Phone: [facility] 08-04-2023 08:25-0500 Body mass index (BMI) [Ratio] 43.98 kg/m2 Yanelis Posey MD Work Phone: [facility] 08-04-2023 08:25-0500 Body weight 127.37 kg Yanelis Posey MD Work Phone: [facility] Encounters Encounter Date Encounter Type Care Provider Facility Start: 04-27-2024 End: 04-27-2024 ambulatory DINORAH P HOUSE Facility:[facility] Start: 04-05-2024 End: 04-05-2024 ambulatory DINORAH P HOUSE Facility:[facility] Start: 03-08-2024 End: 03-08-2024 ambulatory CONTRERAS EMILI Not Available Start: 03-08-2024 ambulatory DINORAH P HOUSE Facilit y:[facility] Start: 03-07-2024 End: 03-07-2024 ambulatory DINORAH P HOUSE Facility:[facility] Start: 02-04-2024 End: 02-04-2024 ambulatory DINORAH P HOUSE Facility:[facility] Start: 01-05-2024 End: 01-05-2024 ambulatory DINORAH P HOUSE Facility:[facility] Start: 11-12-2023 ambulatory Alfonzo Addison MD Fac ility:[facility] Start: 10-26-2023 End: 10-26-2023 ambulatory CONTRERAS EMILI Not Available Start: 10-20-2023 End: 10-20-2023 Emergency department patient visit JAK HANSON [facility] Start: 10-16-2023 Encounter Alfonzo hernandez MD Work Phone: [facility] 3W NICU Start: 10-15-2023 End: 10-15-2023 Encounter OMA NOVAK [facility] 3 NICU Start: 10-15-2023 End: 10-15-2023 Office outpatient visit 10 minutes Oma Kishore [employer]OODN[employer]GE ATTENDANT Work Phone: [facility] Comment on above: Pre-eclampsia superi mposed on chronic hypertension, delivered (Primary Dx); History of Start: 10-14-2023 Encounter Alfonzo hernandez MD Work Phone: [facility] 3W NICU Start: 10-12-2023 End: 10-12-2023 Evaluation and management of inpatient ELLIOT MACK [facility] Start: 10-08-2023 End: 10-09-2023 Evaluation and management of inpatient JAMAR ALY [facility] Start: 10-05-2023 End: 10-06-2023 Evaluation and management of inpatient BRIAN [facility] Start: 09-28-2023 End: 09-29-2023 Evaluation and management of inpatient MARGARITA REYES [facility] Start: 09-28-2023 End: 09-28-2023 ambulatory CAROLINE TREJO [facility] Start: 09-27-2023 End: 10-12-2023 Evaluation and management of inpatient JAK HANSON [facility] Start: 2023 End: 2023 ambulatory CONTRERAS EMILI Not Available Start: 08-31-2023 Orders Only Carla Guerra [facility] r[facility]- Medicine at [facility] Comment on above: IUGR (intrauterine g rowth [...] Jeniffer WOODWARD Work Phone: [facility]- [facility] at [facility] Comment on above: Outgoing Ca ll Start: 08-18-2023 End: 08-18-2023 flow sheet Contreras Emili DO Work Phone: [facility] Comment on above: Second trimester pre gnancy; Diabetes mellitus screening; Thyroid disease affecting ([facility]) Start: 08-18-2023 End: 08-18-2023 ambulatory CONTRERAS EMILI Not Available Start: 08-17-2023 Telephone encounter Althea Chin PN [facility] Start: 08-06-2023 End: 08-07-2023 ambulatory ALFONZO ADDISON [facility] Start: 08-05-2023 Documentation procedure Yanelis Posey MD Work Phone: [facility] Start: 08-05-2023 Telephone encounter Stacy Justin RN [facility] Start: 08-04-2023 Documentation procedure Carla Castillo es [employer] [facility] Start: 08-04-2023 Telephone encounter Leslie reese [facility] Comment on above: Appointment IUGR (intrauterine g rowth restriction) affecting care of mother, second trimester, not applicable or unspecified fetus (Primary Dx); History of delivery, currently ; 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 trimester; Chronic hypertension affecting Start: 08-04-2023 End: 08-05-2023 ambulatory CONTRERAS COLINO [facility] Start: 08-04-2023 End: 08-04-2023 Office outpatient visit 40 minutes Yanelis Posey MD Work Phone: [facility] Comment on above: IUGR (intrauterine g rowth restriction) affecting care of mother, second trimester, not applicable or unspecified fetus (Primary Dx); History of delivery, currently ; 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 trimester; Hx of preeclampsia, prior , currently , second trimester Start: 07-22-2023 End: 07-22-2023 ambulatory CONTRERAS EMILI Not Available Start: 06-18-2023 End: 06-18-2023 ambulatory CONTRERAS EMILI Not Available Start: 05-25-2023 End: 05-25-2023 ambulatory Alfonzo Addison MD Facility:[facility] Start: 11-24-2022 End: 11-24-[address] LIRA [facility] Facility: Start: 04-18-2017 End: 04-19-2017 Ambulatory MORIAH BOND Facility:[facility] Procedures Date Procedure Procedure Detail Performing Clinician Start: 08-18-2023 Urnls dip stick/tabl et rgnt non-auto w/o micrscp Contreras Emili DO Work Phone: Start: 08-04-2023 UNLISTED LAB TEST Yanelis Posey MD Work Phone: Start: 11-24-2022 Microscopic observat ion [Identifier] in Cervix by Cyto stain Alfonzo Addison MD Work Phone: H/O: section History of C-sectio n Oma Kishore ER REGISTRAR-CHARGE ATTENDANT Work Phone: Plan of Treatment Date Care Activity Detail Author Start: 06-05-2031 DTaP,Tdap and Td Vaccines (7 - Td or Tdap) DTaP,Tdap and Td Vaccines (7 - Td or Tdap) [facility] Start: 11-24-2025 Screening for malign ant neoplasm of cervix Pap Smear [facility] Start: 10-11-2024 Adult BMI Screening Adult BMI Screen ing [facility] Start: 10-11-2024 Tobacco Screening Tobacco Screening [facility] Start: 08-04-2024 Adult BMI Screening Adult BMI Screen ing [facility] Start: 08-04-2024 Tobacco Screening Tobacco Screening [facility] Start: 08-04-2024 End: 08-04-2024 US MFM with or without consult US MFM with or without consult Imaging Routine IUGR (intrauterine growth restriction) affecting care of mother, second trimester, not applicable or unspecified fetus History of delivery, currently 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 trimester Chronic hypertension affecting Expected: 08/04/2024 (Approximate), Expires: 08/04/2024 [facility] Work Phone: Comment on above: Expected: 08/04/2024 (Approximate), Expires: 08/04/2024 Start: 03-13-2024 Influenza vaccination Influenza Vacc ine [facility] Start: 10-15-2023 End: 10-15-2023 Telemedicine consultation with patient 10/15/2023 9:00 AM EDT Telemedicine [facility] [address] [place] [phone] Oma Novak, ER REGISTRAR-CHARGE ATTENDANT [address] [place] [phone] [facility] Start: 09-15-2023 End: 09-15-2023 Patient encounter procedure 09/15/2023 10:20 AM EST Routine [facility] [address] [place] [address] Contreras Mcok, [address] [place], [place] [id number] [facility] Start: 08-18-2023 End: 08-18-2024 CBC panel - Blood by Automated count CBC Lab Routine Diabetes mellitus screening Expected: 08/18/2023 (Approximate), Expires: 08/18/2024 [facility] Work Phone: Comment on above: Expected: 08/18/2023 (Approximate), Expires: 08/18/2024 Start: 08-18-2023 End: 08-18-2024 Measurement of glucose 1 hour after glucose challenge for glucose tolerance test Glucose tolerance, 1 hour Lab Routine Diabetes mellitus screening Expected: 08/18/2023 (Approximate), Expires: 08/18/2024 [facility] Comment on above: Expected: 08/18/2023 (Approximate), Expires: 08/18/2024 Start: 08-17-2023 End: 08-17-2023 Patient encounter procedure [facility] Start: 08-05-2023 End: 08-05-2024 Unlisted Lab Test Unlisted Lab Test Lab Routine IUGR (intrauterine growth restriction) affecting care of mother, second trimester, not applicable or unspecified fetus Maternal care for other known or suspected poor growth, unspecified trimester, not applicable or unspecified Expected: 08/05/2023 (Approximate), Expires: 08/05/2024 [facility] Work Phone: Comment on above: Expected: 08/05/2023 (Approximate), Expires: 08/05/2024 Start: 03-13-2023 COVID-19 Vaccine () COVID-19 Vaccine () [facility] Start: 03-13-2023 Influenza vaccination P [facility] Start: 2017 Screening for malign ant neoplasm of cervix Pap Smear [facility] Start: 2014 Adult BMI Follow Up Plan Adult BMI Follow Up Plan [facility] Start: 2008 Depression Screening Depression Scre ening [facility] End: 08-03-2024 Beta-2 glycoprotein antibodies Beta-2 glycoprotein antibodies Lab Routine IUGR (intrauterine growth restriction) affecting care of mother, second trimester, not applicable or unspecified fetus 1 Occurrences starting 08/04/2023 until 08/03/2024 [facility] Work Phone: Comment on above: 1 Occurrences starti ng 08/04/2023 until 08/03/2024 Immunizations Immunization Date Immunization Notes Care Provider Pete olson 06-10-2022 influenza virus vaccine, unspecified formulation [facility] 06-05-2021 influenza, injectabl e, quadrivalent, preservative free [facility] 06-05-2021 tetanus toxoid, reduced diphtheria toxoid, and acellular pertussis vaccine, adsorbed [facility] 06-05-2021 influenza virus vaccine, unspecified formulation Contreras Mock DO Work Phone: [facility] Payers Date Payer Category Payer Unknown [id number] 2020 Unknown [id number] 1996 Unknown [id number] 2.16.84 0.1.654552.3.579.2.593 1996 Unknown [id number] 2.16. 840.1.220927.3.579.2.175 1996 Unknown [id number] 2.16.8 40.1.339340.3.579.2.1286 1996 Unknown [id number] 2.16.8 40.1.164524.3.579.2.1285 1996 Unknown [id number] 2.16.8 40.1.447285.3.579.2.1285 1996 Unknown [id number] 2.16.8 40.1.968128.3.579.2.1285 1996 Unknown [id number] 2.16.8 40.1.958838.3.579.2.1285 1996 Unknown [id number] 2.16.8 40.1.557724.3.579.2.1285 1996 Unknown [id number] 2.16.8 40.1.244427.3.579.2.1285 1996 Unknown [id number] 2.16.8 40.1.908836.3.579.2.1285 1996 Unknown [id number] 2.16.8 40.1.744740.3.579.2.1285 1996 Unknown [id number] 2.16.8 40.1.086836.3.579.2.1285 1996 Unknown [id number] 2.16.8 40.1.102616.3.579.2.1285 1996 Unknown [id number] 2.16.8 40.1.968000.3.579.2.1285 1996 Unknown [id number] 2.16.84 0.1.538359.3.579.2.9 1996 Unknown [id number] 2.16.84 0.1.564585.3.579.2.9 1996 Unknown [id number] 2.16.84 0.1.828474.3.579.2.1259 1996 Unknown [id number] 2.16.84 0.1.967428.3.579.2.9 1996 Unknown [id number] 2.16.84 0.1.056708.3.579.2.1259 1996 Unknown [id number] 2.16.840 .1.205284.3.579.2.9 1996 Unknown [id number] 2.16.8 40.1.697177.3.579.2.718 1996 Unknown [id number] 2.16.8 40.1.812273.3.579.2.8 1996 Unknown [id number] 2.16.8 40.1.197369.3.579.2.8 1996 Unknown [id number] 2.16.8 40.1.958210.3.579.2. 1996 Unknown [id number] 2.16.8 40.1.596855.3.579.2.718 1996 Unknown [id number] 2.16.8 40.1.276306.3.579.2.8 1996 Unknown [id number] 2.16.8 40.1.761826.3.579.2.718 1996 Unknown [id number] 2.16.8 40.1.699258.3.579.2.718 1959 Unknown [id number] Unknown [id number] Social History Date Type Detail Facility Start: 12-19-2022 End: 05-25-2023 Tobacco smoking status VTIS Never smoked tobacco [facility] Start: 05-25-2023 Tobacco use and exposure Smokeless tobacco non-user [facility] Start: 08-04-2023 End: 10-12-2023 Alcohol intake Ex-drinker (finding) [facility] Start: 03-21-2020 End: 08-23-2020 History of Social function [facility] Start: 03-21-2020 End: 08-23-2020 Alcohol Use Disorder Identification Test - Consumption [AUDIT-C] [facility] Frequency of Alcohol Consumption Never [facility] Start: 03-26-2023 [facility] Start: 1995 Sex Assigned At Female [facility] Start: 04-22-2021 Gender identity Identifies as female gender (finding) [facility] Start: 04-22-2021 Sexual orientation Heterosexual (finding) [facility] Start: 12-19-2022 Alcohol Comment occasional [facility] Goals Date Patient Goal Desired Activity /State Personal health goal Clinical Notes 08-04-2023 to 12-14-2023 Note - Xenia Lomeli RN - 10/16/2023 11:28 AM EDTLactation Note - Xenia Lomeli RN - 10/16/2023 11:28 AM EDTLactation Note - Kathy Howell RN - 10/15/2023 10:50 AM EDT Note Date & Type Note Facility 12-14-2023 Note Entered by Sindy Cormier on December 14, 2023 09:59:29 EDT From: Sindy Cormier To: [facility] Sent: 12/14/2023 09:59:29 EDT Subject: Medication Management Submitted: Order:omeprazole (omeprazole 40 mg oral delayed release capsule) 1 cap(s) Oral Daily Qty: 30 cap(s) Days Supply: 30 Refills: 5 Substitutions Allowed Route To Pharmacy - [facility] Signed by Sindy Cormier 12/14/2023 09:59:00 EDT Submitted: Complete:omeprazole (omeprazole 40 mg oral delayed release capsule) Signed by Sindy Cormier 12/14/2023 09:59:00 EDT Not Approved: New Rx to follow omeprazole (Omeprazole 40 MG Oral Capsule Delayed Release) Take 1 capsule by mouth once daily Qty: 30 cap(s) Days Supply: 30 Refills: 0 Substitutions Allowed Route To Pharmacy - [facility] Signed by Sindy Cormier --------- From: [facility] To: Azael LOPEZ, Alfonzo Sumner MD Sent: December 13, 2023 5:45:21 AM CDT Subject: Medication Management Due: December 14, 2023 12:32:47 AM CDT On Hold Pending Signature Dispensed Drug: omeprazole (omeprazole 40 mg oral delayed release capsule), Take 1 capsule by mouth once daily Quantity: 30 cap(s) Days Supply: 30 Refills: 0 Substitutions Allowed Notes from Pharmacy: --------- [facility] 10-16-2023 Miscellaneous Notes This note was copied from a baby's chart. Met with mother at infant's bedside. States that pumping has been going well, she gets about an ounce each time she pumps and is trying to pump regularly. She denies any pain or discomfort. No immediate questions or concerns, encouraged to call out for any other assistance. documented in this encounter [facility] 10-16-2023 Obstetrics Note This note was copied from a baby's chart. Met with mother at infant's bedside. States that pumping has been going well, she gets about an ounce each time she pumps and is trying to pump regularly. She denies any pain or discomfort. No immediate questions or concerns, encouraged to call out for any other assistance. [facility] 10-15-2023 Miscellaneous Notes This note was copied from a baby's chart. Met with mother at 's bedside. States pumping is going well and milk supply is increasing. Encouraged to reach out to with questions or concerns. Support given. Step 1: Infant stable and able to tolerate Andd-ok-Owri care Interventions Baby No weight or gestational age limitations, following IVH protocol Follow Jqtd-aw-Wzya Care Policy Length should be done as tolerated by the . At least once daily, increase as tolerated. Mother Put Igwl-yr-Bamg at least once daily, when possible documented in this encounter [facility] 10-15-2023 Obstetrics Note This note was copied from a baby's chart. Met with mother at infant's bedside. States pumping is going well and milk supply is increasing. Encouraged to reach out to with questions or concerns. Support given. Step 1: stable and able to tolerate Cphm-xd-Vcrv care Interventions Baby No weight or gestational age limitations, following IVH protocol Follow Yaik-pd-Givh Care Policy Length should be done as tolerated by the infant. At least once daily, increase as tolerated. Mother Put Azkk-nj-Hhwr at least once daily, when possible [facility] 10-15-2023 History of Present illness Narrative Video Visit via Real-time Synchronous Audiovisual Provider Location: [facility] [address] [facility] [id number] Patient Location: Other Patient Location [employer] Engineer: None Video Visit Consent Statement: I discussed risks, benefits, and alternatives of a real-time synchronous audiovisual consultation with the patient (and any accompanying persons) including the risks that the patient's personal health details and medical records will be discussed over real-time, synchronous, interactive video/audio/telecommunication technology, the visit will not be recorded without the express consent of both the provider and the patient, and that there are some limitations compared to jegn-vn-trxz evaluations. We elected to proceed. Subjective: Sisi Chakraborty is a 28 y.o. is seen today via televisit. She is 6 days post- from a repeat c/s with TL at 30w1d. Her was complicated by CHTN with FLORINA with SF. She denies any questions or concerns today. She had a girl who is currently in the NICU, but doing well. She is currently on Labetalol 300 mg q8h and Procardia XL 30 mg q12 and is taking as prescribed. She is checking her BP twice a day. She denies headache, visual changes, epigastric pain or significant change in swelling in her hands, feet or face. She reports her pain is well controlled with current medications. She denies any redness, warmth, drainage to her incision, states it is healing well. Objective: Her home blood readings are as follows: 10/11: 140/92, 135/78 10/12: 130s/80s 10/13: 130s/70s General: well appearing, no acute distress. Neuro: Alert and oriented Respirations: even, non labored Assessment and Plan: Chronic Hypertension BP well controlled on current medication Plans to follow up with primary OB, has appointment next week History of FLORINA with SF History of C/S Meeting post op milestones as expected Pre-eclamptic warnings reviewed. Call provider communications program manager for headache unresolved with tylenol, visual change, epigastic pain or significant change in swelling in her hands feet or face. Let the office know if BP readings consistently over 140/90 (either number). Call provider communications program manager for BP greater than 160/110 (either number). Hypotensive warnings reviewed - call if experiencing dizziness, weakness or fainting. CARLI Denny APRN-CNP 10/15/23 0922 documented in this encounter [facility] 10-14-2023 Miscellaneous Notes This note was copied from a baby's chart. Met with mother at 's bedside. States pumping is going well. She is getting about 1 ounce every 3 hours without any pain or discomfort. Encouraged skin to skin when she is able. No questions or concerns at this time. Encouraged to reach out with any needs. documented in this encounter [facility] 10-14-2023 Obstetrics Note This note was copied from a baby's chart. Met with mother at infant's bedside. States pumping is going well. She is getting about 1 ounce every 3 hours without any pain or discomfort. Encouraged skin to skin when she is able. No questions or concerns at this time. Encouraged to reach out with any needs. [facility] 08-31-2023 History of Present illness Narrative [facility] lab results This patient was diagnosed with [...] conditions (Bartter type 2 & cystic fibrosis [id number]) Our genetic counselor reviewed the results with [...] patient's care. Yanelis Posey MD Professor, [facility]aternal Medicine documented in this encounter [facility] 08-20-2023 History of Present illness Narrative Summary: MOB carrier screening results Sisi left me VM regarding carrier screening, I [...] concerns come up. documented in this encounter [facility] 08-20-2023 History of Present illness Narrative Summary: Carrier Screening Results Called and left VM for Sisi requesting a call back regarding carrier screening results. documented in this encounter [facility] 08-18-2023 History of Present illness Narrative Reason for Appointment: Patient ID: Sisi Chakraborty is a 27 y.o. female who [...] Medical History: Diagnosis Date History of Hyperthyroidism (CMS/HCC) Hypothyroidism (CMS/HCC) Insulin resistance Morbid obesity with body mass index (BMI) of 40.0 to 49.9 (CMS/[facility]) Pap [...] SECTION, LOW TRANSVERSE MOLE REMOVAL 12/2011 benign [place] KNEE SCOPE,CLEAN/DRAIN Left 09/2014 TONSILLECTOMY TUMOR REMOVAL [...] nursing note reviewed. Exam conducted with a classer present. Vitals: Estimated body mass index is [...] Delivery: 12/17/23. Pt doing well- reviewed recent [facility] appt. Pt to return to [facility] in 2 weeks. Pt to return in 4 weeks for scheduled OB appt. Documented by [place] Andrea LPN on behalf of: Contreras Mock DO documented in this encounter [facility] 08-17-2023 Miscellaneous Notes Patient returned call states she is being seen somewhere else. documented in this encounter [facility] 08-17-2023 Telephone encounter Note Patient returned call states she is being seen somewhere else. [facility] 08-17-2023 Miscellaneous Notes Please call us back to get rescheduled for your jordan. documented in this encounter [facility] 08-17-2023 Telephone encounter Note Please call us back to get rescheduled for your jordan. [facility] 08-05-2023 Miscellaneous Notes Left message for patient that an additional lab has been ordered that needs to be drawn at a [facility] lab only. Call back phone number given if patient has questions. Patient returned call to [facility] and will have additional lab done at a [facility] lab. Patient also had concerns regarding future Doppler US being done here at [facility]. Patient will do initial Doppler here and may need to do [place] due to son having surgery in [place]. documented in this encounter [facility] 08-05-2023 Telephone encounter Note Left message for patient that an additional lab has been ordered that needs to be drawn at a [facility] lab only. Call back phone number given if patient has questions. [facility] 08-05-2023 Telephone encounter Note Patient returned call to [facility] and will have additional lab done at a [facility] lab. Patient also had concerns regarding future Doppler US being done here at [facility]. Patient will do initial Doppler here and may need to do [place] due to son having surgery in [place]. [facility] 08-05-2023 History of Present illness [...] lab is drawn at 1 of the [facility] locations because it seems that result availability and of test and correctly performed test is more likely when ordered through our Internal lab. I will ask our nursing staff to contact the patient and relay instructions. Yanelis Posey MD Professor, [facility]aternal [facility] documented in this encounter [facility] 08-04-2023 History of Present illness Narrative Lab drawn for cell-free DNA testing. Patient tolerated well. (Lab came to draw ) documented in this encounter [facility] 08-04-2023 Miscellaneous Notes Patient refused to schedule umb doppler in 3 weeks. Son is having surgery and she will call at a later time to schedule. documented in this encounter [facility] 08-04-2023 Telephone encounter Note Patient refused to schedule umb doppler in 3 weeks. Son is having surgery and she will call at a later time to schedule. [facility] 08-04-2023 History of Present illness [...] was 45 minutes. 34 minutes were direct lcvd-vv-fqov for counseling and coordination of care during visits itself. An additional 4 minutes or for same day preparation to see the patient. Another 7 minutes were needed were needed to prepare report and or to perform other duties to complete visit. Thank you for sending this patient. Yanelis Posey MD Maternal Medicine Professor, [facility] [phone]- Office [phone]- Personal Cell Phone Office Note: Chronic hypertension [...] visit). The patient saw my colleague Dr. Dominguez previously. I confirmed the patient's understanding of [...] remainder . Please see consultation by Dr. Dominguez from earlier in . growth restriction diagnosed. [...] range. Primary recommendations previously outlined by Dr. Dominguez. The patient assesses her own blood pressure and frequently reports to primary OB provider office. Thank you for letting us see this patient today. She has follow-up scheduled in our office. Primary and overall management of is as per excellent care primary OB provider team. documented in this encounter [facility] [employer] Evaluation note Diagnosis IUGR (intrauterine growth restriction) affecting care of mother, second trimester, not applicable or unspecified fetus- Primary History of delivery, currently with history of pre-term labor 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 trimester Chronic hypertension affecting documented in this encounter [facility]* Diagnosis IUGR (intrauterine growth restriction) affecting care of mother, second trimester, not applicable or unspecified fetus- Primary History of delivery, currently with history of pre-term labor 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 trimester Hx of preeclampsia, prior , currently , second trimester documented in this encounter [facility]* Diagnosis IUGR (intrauterine growth restriction) affecting care of mother, second trimester, not applicable or unspecified fetus- Primary Maternal care for other known or suspected poor growth, unspecified trimester, not applicable or unspecified documented in this encounter [facility]* Diagnosis Second trimester state, incidental Diabetes mellitus screening Screening for diabetes mellitus Thyroid disease affecting ([facility]) documented in this encounter [facility]* Diagnosis IUGR (intrauterine growth restriction) affecting care of mother, second trimester, not applicable or unspecified fetus Chronic hypertension affecting Hx of preeclampsia, prior , currently , second trimester [facility]* Diagnosis IUGR (intrauterine growth restriction) affecting care of mother, second trimester, not applicable or unspecified fetus- Primary Chronic hypertension affecting Hx of preeclampsia, prior , currently , second trimester documented in this encounter [facility]* Diagnosis Pre-eclampsia superimposed on chronic hypertension, delivered- Primary History of Other postprocedural status documented in this encounter [facility] SystemInstructionsNot on filedocumented in this encounter [facility] SystemInstructionsNot on filedocumented in this encounter [facility] SystemInstructionsNot on filedocumented in this encounter [facility] SystemInstructionsNot on filedocumented in this encounter [facility] SystemInstructionsNot on filedocumented in this encounter [facility] SystemInstructionsNot on filedocumented in this encounter [facility] SystemInstructionsNot on filedocumented in this encounter [facility] SystemReason for visit Narrative* Consultation (Routine) - Pending Review Specialty Diagnoses / Procedures Referred By Ashtyn chand Referred To Contact Obstetrics and Gynecology Diagnoses Pre-eclampsia, severe, with delivery Andrew Emery MD [address] [facility] [id number] [place] [address] Oma Novak, ER REGISTRAR-CHARGE ATTENDANT [address] [place] [address] Referral ID Status Reason Start Date Expiration Date V isits Requested Visits Authorized [id number] Pending Review 10/12/2023 10/11/2024 1 1 [facility] Summary Purpose Family History No Family History [...] Date Activated Date Inactivated Comments Full Code 09/27/2023 5:00 PM 10/12/2023 7:19 PM Code Status History Code Status Date Activated Date Inactivated Comments Full Code 05/28/2021 11:19 AM 06/05/2021 10:50 PM Latest Code Status on File Code Status Date Activated Date Inactivated Comments Full Code 09/27/2023 5:00 PM 10/12/2023 7:19 PM Code Status History Code Status Date Activated Date Inactivated Comments Full Code 05/28/2021 11:19 AM 06/05/2021 10:50 PM Reason for Referral Specialty Diagnoses / Procedures Referred By Ashtyn t Referred To Contact Maternal and Medicine Diagnoses IUGR (intrauterine growth restriction) affecting care of mother, second trimester, not applicable or unspecified fetus History of delivery, currently 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 trimester Chronic hypertension affecting Procedures US MFM with or without consult Yanelis Posey MD [address] [place] [address] [facility] Maternal Med [address] [place] [address] Referral ID Status Reason Start Date Expiration Date V isits Requested Visits Authorized [id number] Pending Review 08/04/2023 08/03/2024 1 1 Additional Source Comments INFORMATION SOURCE (unrecogn ized section and content) DATE CREATED AUTHOR 01/05/2018 [facility] DATE CREATED AUTHOR AUTHOR'S ORGANIZ ATION 11/25/2022 [facility] DATE CREATED AUTHOR AUTHOR'S ORGANIZ ATION 09/25/2023 [facility] DATE CREATED AUTHOR AUTHOR'S ORGANIZ ATION 10/28/2023 [facility] DATE CREATED AUTHOR AUTHOR'S ORGANIZ ATION 03/10/2024 [facility] EPIC DATE CREATED AUTHOR AUTHOR'S ORGANIZ ATION 03/20/2024 [facility] EPIC DATE CREATED AUTHOR AUTHOR'S ORGANIZ ATION 04/29/2024 [facility] Reason for Visit (unrecogniz ed section and content) Reason Onset Date Comments Appointment 08/04/2023 Reason Comments Hypertension Reason Comments Routine Visit Reason Onset Date Comments Outgoing Call 08/20/2023 Care Teams (unrecognized sec tion and content) Director Of In Service Education Relationship Specialty Start Date End Date Alfonzo Addison MD [address] [place] [phone] PCP - General Family Medicine 04/05/20 Director Of In Service Education Relationship Specialty Start Date End Date Alfonzo Addison MD [address] [place] [id number] PCP - General Family Medicine 04/05/20 Director Of In Service Education Relationship Specialty Start Date End Date Alfonzo Addison MD [address] [place] [id number] PCP - General Family Medicine 04/05/20 Director Of In Service Education Relationship Specialty Start Date End Date Alfonzo Addison MD [address] [place] [phone] PCP - General Family Medicine 04/05/20 Director Of In Service Education Relationship Specialty Start Date End Date Alfonzo Addison MD [address] [place] [id number] PCP - General Family Medicine 04/05/20 Director Of In Service Education Relationship Specialty Start Date End Date Alfonzo Addison MD [address] [place] [phone] PCP - General Family Medicine 04/05/20 Director Of In Service Education Relationship Specialty Start Date End Date Alfonzo Addison MD [address] [place] [id number] PCP - General Family Medicine 04/05/20 Director Of In Service Education Relationship Specialty Start Date End Date Alfonzo Addison MD [address] [place] [id number] PCP - General Family Medicine 12/22/22 Director Of In Service Education Relationship Specialty Start [place] [id number] [place] [id number] PCP - General Family Medicine 04/05/20 FOR [...] BE BASED ON THE PRIMARY CLINICAL RECORDS. [facility] provides no warranty or guarantee of the accuracy or completeness of information in this document.
== END 2024-05-03 19:36 | disposition home or self-care (01) ==
LOC: LAB 19:35
PROVIDERS: PCP Family Medicine; Visit Provider Obstetrics & Gynecology
DX: Z01.419 Encounter for gynecological examination (general) (routine) without abnormal findings (principal)
CPT/HCPCS: 88175

== ENCOUNTER 2024-06-05 19:25 | Emergency (ER) | payer BC, SELFPAY ==
[2024-06-05 19:28] VITALS: BP 164/118; PULSE 81; TEMP 36.8; O2SAT 100; BMI 44.6
--- OUTSIDE RECORDS SUMMARY | 2024-06-05 19:32 | XMS_ITS | CCD ---
Author Organization [facility] CliniSymt Care Team Providers Care Event Promoter Name Role Phone MORIAH BOND Unavailable Unavailable HOY, MORIAH Unavailable Unavailable SELF, REFERRED Unavailable Unavailable HOY, MORIAH Unavailable Unavailable [facility] [place], DR LIRA Primary Care Unavailable EMILI ., DR RICO Attending Unavailable EMILI ., DR RICO Consulting Unavailable EMILI ., DR RICO Admitting Unavailable Alfonzo Guerra MD Primary Care Provider [phone] Alfonzo Guerra MD Primary Care Provider [phone] ALFONZO GUERRA Primary Care Unavailable STEVE ARREOLA Referring Unavailable JAK ANAYA Admitting Unavailable JAK ANAYA Attending Unavailable CAROLINE TREJO Referring Unavailable ALFONZO GUERRA Primary Care Unavailable JESICA MARTINEZ Consulting Unavailable RUCHI ACOSTA Consulting Unavailable CAROLINE TREJO Referring Unavailable ALFONZO GUERRA Primary Care Unavailable MARGARITA REYES Referring Unavailabl e ALFONZO GUERRA Primary Care Unavailable BRIAN TREJO Referring Unavailable ALFONZO GUERRA Primary Care Unavailable JAMAR ALY Referring Unavailable ALFONZO GUERRA Primary Care Unavailable ELLIOT MACK Attending Unavailable ALFONZO GUERRA Primary Care Unavailable OMA NOVAK Attending Unavailable ALFONZO GUERRA Referring Unavailable ALFONZO GUERRA Primary Care Unavailable JAK ANAYA Admitting Unavailable JAK ANAYA Attending Unavailable ALFONZO GUERRA Primary Care Unavailable CONTRERAS MOCK Referring Unavailable ALFONZO GUERRA Primary Care Unavailable YAENLIS GARRIDO Attending Unavailable CONTRERAS MOCK R Referring Unavailable ALFONZO GUERRA Primary Care Unavailable ALFONZO GUERRA Referring Unavailable ALFONZO GUERRA Primary Care Unavailable CONTRERAS MOCK Attending Unavailable CONTRERAS MOCK Attending Unavailable EMILI, CONTRERAS Attending Unavailable EMILI, CONTRERAS Attending Unavailable EMILI, CONTRERAS Attending Unavailable EMILI, CONTRERAS Attending Unavailable Azael LOPEZ, Alfonzo Sumner Primary Care Unavailable HOUSE, DO DINORAH P [...] Unavailable HOUSE, DO DINORAH P Attending Unavailable EMILI, CONTRERAS Attending Unavailable EMILI, CONTRERAS Attending Unavailable Allergies Allergy Classification Reported Allergen(s) Allergy Type Date of Onset Reaction(s) Facility (2 sources) azithromycin Drug Allergy 0 [facility] Repository (3 sources) ketorolac; Translations: [Toradol] Drug Allergy 0 [facility] Rep[facility] (2 sources) traMADol Drug Allergy 0 [facility] Repository (1 source) Iodine (And Iodine Containting Drugs) Drug allergy (disorder) 5 [facility] Repository (20 sources) Azithromycin; Translations: [AZITHROMYCIN] Drug Allergy 4 [facility] (18 sources) Contrast media; Translations: [DYE] Propensity to adverse reactions to drug 8 [facility] (19 sources) Ketorolac; Translations: [KETOROLAC] Drug Allergy 4 [facility] (20 sources) traMADol; Translations: [TRAMADOL] Drug Allergy 4 [facility] (8 sources) Ketorolac trometamol Allergy to substance 4 [facility] (8 sources) Other Propensity to adverse reactions 8 [facility] (1 source) Contrast media; Translations: [Contrast Dye] Propensity to adverse reactions to drug (disorder) [facility] Repository Medications Current Medications Medication Drug [...] a day. 10 capsule 0 06/05/2021 Active ferrous sulfate 325 mg oral tablet [...] Active labetalol hydrochloride 300 mg oral tablet (20 sources) beta-Adrenergic Cheyanne Start: 10-12-2023 take 2 [...] bedtime. 270 tablet 3 07/20/2023 07/19/2024 Active labetalol (Normo dyne) 300 MG tablet Take 200 mg by mouth in the morning and 200 mg before bedtime. Active take 3 tablets by mo uth [...] mouth in the morning. Take before meals. Active 24 hr metFORMIN hydrochloride 500 mg extended release oral tablet (5 sources) Biguanide Start: 05-03-2024 End: 05-03-2025 take 1 tablet by mouth every twenty-four hours at mealtime metFORMIN XR (Glucophage-XR) 500 MG 24 hr tablet Indications: Insulin resistance Take 1 tablet (500 mg) by mouth in the evening. Take with meals Do not crush, chew, or split. 30 tablet 11 05/03/2024 05/03/2025 Active metoclopramide 10 mg oral tablet (19 [...] osmotic 24 hr extended release oral tablet (11 sources) Dihydropyridine Calcium Channel Cheyanne Start: 10-12-2023 take 1 tablet by mouth every twenty-four hours in the morning NIFEdipine XL (PROCARDIA XL) 30 mg 24 hr tablet Take 1 tablet (30 mg total) by mouth in the morning. 30 tablet 2 10/12/2023 Active NIFEdipine (Proc ardia) 20 MG capsule Take 30 mg by mouth Daily Active End: 08-04-2023 take 1 tablet by mouth once daily, then take 1 tablet by mouth every twenty-four hours NIFEdipine CC (ADALAT CC) 30 mg 24 hr tablet Take 30 mg by mouth daily. 0 08/04/2023 Discontinued (Patient Stopped On Own) omeprazole 40 mg delayed release oral capsule (20 sources) Proton Pump Inhibitor take 1 capsule by mouth in the morning omeprazole (PriLOSEC) [address] capsule Take 40 mg by mouth in the morning. Active take 1 capsule by mouth in the m orning omeprazole (PriLOSEC) 20 mg capsule Take 1 [...] the morning. 60 tablet 2 10/13/2023 Active phentermine hydrochloride 37.5 mg oral tablet (2 sources) Sympathomimetic Amine Anorectic Start: 05-30-2024 End: 06-29-2024 take 1 tablet by mouth before mealtime phentermine (Adipex-P) 37.5 MG tablet Indications: Encounter for weight management Take 1 tablet (37.5 mg) by mouth in the morning. Take before meals. 30 tablet 05/30/2024 06/29/2024 Active pyridoxine hydrochloride 25 mg oral tablet (2 sources) take 1 tablet by mouth in the morning pyridoxine (Vitamin B-6) 25 MG tablet Take 25 mg by mouth in the morning. 0 Active topiramate 50 mg oral tablet (5 sources) Start: 04-27-2024 Topamax 50 MG tablet 50 mg 04/27/2024 Active 24 hr venlafaxine 75 mg extended release oral capsule (10 sources) Serotonin and Norepinephrine Reuptake Inhibitor Start: 05-30-2024 End: 05-30-2025 take 1 capsule by mouth once daily venlafaxine XR (Effexor XR) 75 MG 24 hr capsule Indications: Anxiety Take 1 capsule (75 mg) by mouth Daily Do not crush or chew. 30 capsule 11 05/30/2024 05/30/2025 Active Start: 03-08-2024 End: 05-03-2025 take 1 capsule by mouth once daily venlafaxine XR (Effexor XR) 37.5 MG 24 hr capsule Indications: Post depression (CMS/HCC) Take 1 capsule (37.5 mg) by mouth Daily Do not crush or chew. 30 capsule 05/03/2024 05/30/2024 Discontinued vitamin b12 1 mg oral capsule (8 sources) Vitamin B12 take 1 capsule by mouth in the morning Cyanocobalamin (B-12) 1000 MCG capsule Take 1 capsule by mouth in the morning. Active Completed/Discontinued Medications Medication Drug Class(es) Dates Sig (Normalized) Sig (Original) buPROPion hydrochloride 100 mg oral tablet (1 source) Aminoketone End: 08-04-2023 take 3 tablets by mouth once daily buPROPion (WELLBUTRIN) 100 mg tablet Take 300 mg by mouth daily. 0 08/04/2023 Discontinued (Therapy completed) escitalopram 5 mg oral tablet (20 sources) Serotonin Reuptake Inhibitor Start: 07-07-2023 End: 05-03-2024 take 1 tablet by mouth in the morning escitalopram (Lexapro) 5 MG tablet Take 5 mg by mouth in the morning. 07/07/2023 05/03/2024 Discontinued (Other) famotidine 10 mg oral tablet (1 source) [...] quadrant pain] Onset: 10-20-2023 Episodic Anxiety disorders (10 sources) Anxiety; Translations: [Anxiety disorder, unspecified] Onset: 02-12-2023 02-12-2023 Chronic Asthma (8 sources) Asthma; Translations: [Unspecified asthma, uncomplicated] Onset: 02-12-2023 02-12-2023 Chronic Esophageal disorders (8 sources) Gastroesophageal reflux disease; Translations: [Gastro-esophageal reflux disease without esophagitis] Onset: 02-12-2023 02-12-2023 Chronic Essential hypertension (20 sources) Essential hypertension; Translations: [Essential (primary) hypertension] Onset: 02-12-2023 03-01-2021 Chronic Headache; including migraine (8 sources) Migraine; Translations: [Migraine, unspecified, not intractable, [...] DERANGEMENT OF LEFT KNEE] Onset: 04-18-2017 Chronic Miscellaneous mental health disorders (4 sources) depression; Translations: [ depression] 05-03-2024 Episodic Mood disorders (8 sources) Depressive disorder; Translations: [Depression] Onset: 02-12-2023 [...] trimester] Onset: 08-04-2023 Episodic Other endocrine disorders (8 sources) Polycystic ovary syndrome; Translations: [Polycystic ovarian syndrome] Onset: 02-12-2023 02-12-2023 Chronic Other nutritional; endocrine; and metabolic disorders (8 sources) Morbid obesity; Translations: [Morbid (severe) obesity due to excess calories] Onset: 02-12-2023 02-12-2023 Chronic Other nutritional; endocrine; and metabolic disorders (2 sources) Insulin resistance; Translations: [Insulin resistance] 05-03-2024 Chronic Other and delivery including normal (2 sources) Second trimester ; Translations: [Encounter for supervision of normal , unspecified, second trimester] 08-12-2023 Episodic Other screening for suspected conditions (not mental disorders or infectious disease) (8 sources) Patient encounter status; Translations: [Encounter for screening for diabetes mellitus] Onset: 08-04-2023 08-18-2023 Episodic Other upper respiratory disease (8 sources) Seasonal allergic rhinitis; Translations: [Other seasonal [...] sources) Unknown / UNK(Unknown) Onset: 04-18-2017 Unclassified (8 sources) OB Reminders Onset: 05-11-2023 05-11-2023 Past [...] trimester] Onset: 06-19-2023 Episodic Other complications of (6 sources) care status; Translations: [Maternal care for other known or suspected poor growth, unspecified trimester, not applicable or unspecified] Onset: 05-28-2021 02-12-2023 Episodic Residual codes; unclassified (8 sources) Insomnia; Translations: [Insomnia, unspecified] Onset: 02-12-2023 02-12-2023 Episodic Results Test Name Value Interpretation Reference Range Facility IGP,APTIMA HPV,AGE GDLNon AGE GDLN ACOG TESTING Note . [facility] Comment on above: TESTS RESULT FLAG UN ITS REF RANGE LAB Clinician Provided Cytology Information Source.............Cervix;Endocervix No. of containers..01 ThinPrep Vial Age Algo ACOG Arsenio... FLAG LEGEND: L-Low Normal,H-High Normal,LL-Alert Low,HH-Alert High <-Panic Low,>-Panic High,A-Abnormal,AA-Critical Abnormal Performed at: 01 =G [address] [id number] Megha Almaguer MD, IGP, RFX APTIMA HPV ASCU Note . [facility] Comment on above: TESTS RESULT FLAG UN ITS REF RANGE LAB DIAGNOSIS: 02 NEGATIVE FOR INTRAEPITHELIAL LESION OR MALIGNANCY. Specimen adequacy: 02 Satisfactory for evaluation. No endocervical component is identified. Performed by: 02 Ana Werner, Black Oxide Operator ([facility]) . 02 Note: Note 02 The Pap smear is a screening test designed to aid in the detection of premalignant and malignant conditions of the uterine cervix. It is not a diagnostic procedure and should not be used as the sole means of detecting cervical cancer. Both false-positive and false-negative reports do occur. Test Methodology: Note 02 The [facility]) Traverse Rod Assembler was unable to read this specimen. Therefore a manual review was performed. FLAG LEGEND: L-Low Normal,H-High Normal,LL-Alert Low,HH-Alert High <-Panic Low,>-Panic High,A-Abnormal,AA-Critical Abnormal Performed at: [address] [facility] [place] [address] Megha Almaguer MD, . 02 The HPV DNA reflex criteria were not met with this specimen result therefore, no HPV testing was performed. The HPV DNA reflex criteria were not met with this specimen result therefore, no HPV testing was performed. Performed at: =G - [facility] [id number] Tank House Operator Helper: Megha Almaguer MD, Phone: [phone] Performed at: - [facility] [place], [place] [id number] Tank House Operator Helper: Megha Almaguer MD, Phone: [phone] BRUSH-SPATULA CERVIX ENDOCERVIX [facility] Progress Note - Nurseon - Progress Note - Nurse Patient presents in [...] [Verified on: 02/09/2024 08:48 EDT] Sindy Cormier [facility] CBC AND AUTO DIFFon 10-20-19 24 ABSOLUTE BASOPHIL 0.1 X10E9/L Normal 0.0-0.2 [facility] Comment on above: Performed By: #### U PCR, DSU #### [facility] ([id number]) [address] [place] [address] ABSOLUTE NEUTROPHIL 8.0 X10E9/L High 1.5-6.6 [facility] Comment on above: Performed By: #### U PCR, DSU #### [facility] ([id number]) [address] [place] [address] Basophils/100 WBC (Bld) 0.9 % Normal [facility] Comment on above: Performed By: #### U PCR, DSU #### [facility] ([id number]) [address] [address] [place] [address] Eosinophils (Bld) [#/Vol] 0.2 10*3/uL Normal 0.0-0.4 [facility] Comment on above: Performed By: #### U PCR, DSU #### [facility] ([id number]) [address] [place] [address] Eosinophils/100 WBC (Bld) 1.5 % Normal [facility] Comment on above: Performed By: #### U PCR, DSU #### [facility] ([id number]) [address] [address] [place] [address] Erythrocyte distribution width (RBC) [Ratio] 13.6 % Normal 11.5-15.0 [facility] Comment on above: Performed By: #### U PCR, DSU #### [facility] ([id number]) [address] [address] Hematocrit (Bld) [Volume fraction] 36.2 % Normal 35-47 [facility] Comment on above: Performed By: #### U PCR, DSU #### [facility] ([id number]) [address] [place] [address] Hemoglobin (Bld) [Mass/Vol] 12.1 g/dL Normal 11.7-15.5 [facility] Comment on above: Performed By: #### U PCR, DSU #### [facility] ([id number]) [address] [address] [place] [address] Lymphocytes (Bld) [#/Vol] 3.0 10*3/uL Normal 1.0-3.5 [facility] Comment on above: Performed By: #### U PCR, DSU #### [facility] ([id number]) [address] [place] [address] Lymphocytes/100 WBC (Bld) 25.3 % Normal [facility] Comment on above: Performed By: #### U PCR, DSU #### [facility] ([id number]) [address] [place] [address] MCH (RBC) [Entitic mass] 30.2 pg Normal 27-34 [facility] Comment on above: Performed By: #### U PCR, DSU #### [facility] ([id number]) [address] [place] [address] MCHC (RBC) [Mass/Vol] 33.4 g/dL Normal 32-36 [facility] Comment on above: Performed By: #### U PCR, DSU #### [facility] ([id number]) [address] [place] [address] MCV (RBC) [Entitic vol] 91 fL Normal 80-100 [facility] Comment on above: Performed By: #### U PCR, DSU #### [facility] ([id number]) [address] [place] [address] Monocytes (Bld) [#/Vol] 0.6 10*3/uL Normal 0-0.9 [facility] Comment on above: Performed By: #### U PCR, DSU #### [facility] ([id number]) [address] [place] [address] Monocytes/100 WBC (Bld) 5.1 % Normal [facility] Comment on above: Performed By: #### U PCR, DSU #### [facility] ([id number]) [address] [place] [address] Neutrophils/100 WBC (Bld) 67.2 % Normal [facility] Comment on above: Performed By: #### U PCR, DSU #### [facility] ([id number]) [address] [place] [address] Platelet mean volume (Bld) [Entitic vol] 7.2 fL Normal 7-12 [facility] Comment on above: Performed By: #### U PCR, DSU #### [facility] ([id number]) [address] [place] [address] Platelets (Bld) [#/Vol] 423 10*3/uL Normal 150-450 [facility] Comment on above: Performed By: #### U PCR, DSU #### [facility] ([id number]) [address] [place] [address] RBC COUNT 4.00 X10E12/L Normal 3.80-5.20 [facility] Comment on above: Performed By: #### U PCR, DSU #### [facility] ([id number]) [address] [facility] [address] [place] [address] WBC (Bld) [#/Vol] 12.0 10*3/uL High 4.0-11.0 [facility] Comment on above: Performed By: #### U PCR, DSU #### [facility] ([id number]) [address] [place] [address] COMPREHENSIVE METABOLIC PANE Yasmani 10-20-2023 Albumin [Mass/Vol] 3.7 g/dL Normal 3.2-5.3 [facility] Comment on above: Performed By: #### U PCR, DSU #### [facility] ([id number]) [address] [place] [address] ALP [Catalytic activity/Vol] 61 U/L Normal 39-130 [facility] Comment on above: Performed By: #### U PCR, DSU #### [facility] ([id number]) [address] [place] [address] ALT [Catalytic activity/Vol] 17 U/L Normal 0-31 [facility] Comment on above: Performed By: #### U PCR, DSU #### [facility] ([id number]) [address] [place] [address] Anion gap [Moles/Vol] 10 mmol/L Normal 5-15 [facility] Comment on above: Performed By: #### U PCR, DSU #### [facility] ([id number]) [address] [place] [address] AST [Catalytic activity/Vol] 17 U/L Normal 0-41 [facility] Comment on above: Performed By: #### U PCR, DSU #### [facility] ([id number]) [address] [place] [address] Bilirubin [Mass/Vol] 0.3 mg/dL Normal 0.3-1.2 [facility] Comment on above: Performed By: #### U PCR, DSU #### [facility] ([id number]) [address] [place] [address] Calcium [Mass/Vol] 9.1 mg/dL Normal 8.5-10.5 [facility] Comment on above: Performed By: #### U PCR, DSU #### [facility] ([id number]) [address] [place] [address] Chloride [Moles/Vol] 111 mmol/L High 98-109 [facility] Comment on above: Performed By: #### U PCR, DSU #### [facility] ([id number]) [address] [place] [address] CO2 [Moles/Vol] 23 mmol/L Normal 22-32 [facility] Comment on above: Performed By: #### U PCR, DSU #### [facility] ([id number]) [address] [place] [address] Creatinine [Mass/Vol] 0.80 mg/dL Normal 0.40-1.00 [facility] Comment on above: Result Comment: METH OD TRACEABLE TO IDMS STANDARD Performed By: #### U PCR, DSU #### [facility] ([id number]) [address] [place] [address] eGFR (CKD-EPI) NON-RACE DEPENDENT >90 Normal >59 [facility] Comment on above: Result Comment: Reported eGFR is based on the CKD-EPI 2020 equation that does not use a race coefficient. Performed By: #### U PCR, DSU #### [facility] ([id number]) [address] [place] [address] Glucose [Mass/Vol] 95 mg/dL Normal 65-99 [facility] Comment on above: Performed By: #### U PCR DSU #### [facility] ([id number]) [address] [place] [address] Potassium [Moles/Vol] 3.7 mmol/L Normal 3.5-5.0 [facility] Comment on above: Performed By: #### U PCR, DSU #### [facility] ([id number]) [address] [place] [address] Protein [Mass/Vol] 6.7 g/dL Normal 6.0-8.0 [facility] Comment on above: Performed By: #### U PCR, DSU #### [facility] ([id number]) [address] [place] [address] Sodium [Moles/Vol] 144 mmol/L Normal 134-146 [facility] Comment on above: Performed By: #### U PCR, DSU #### [facility] ([id number]) [address] [place] [address] Urea nitrogen [Mass/Vol] 18 mg/dL Normal 5-23 [facility] Comment on above: Performed By: #### U PCR, DSU #### [facility] ([id number]) [address] [facility] [address] [place] [address] LDH [Catalytic activity/Vol] on 10-20-2023 LDH 152 U/L Normal 100-235 [facility] Comment on above: Performed By: #### U PCR, DSU #### [facility] ([id number]) [address] [facility] [address] [place] [address] URIC ACIDon 10-20-2023 Urate [Mass/Vol] 7.3 mg/dL High 2.6-7.2 [facility] Comment on above: Performed By: #### U PCR, DSU #### [facility] ([id number]) [address] [address] CBC AND AUTO DIFFon 10-11-19 ABSOLUTE BASOPHIL 0.0 X10E9/L Normal 0.0-0.2 [facility] Comment on above: Performed By: #### U PCR, DSU #### [facility] ([id number]) [address] [facility] [address] [place] [address] ABSOLUTE NEUTROPHIL 14.0 X10E9/L High 1.5-6.6 [facility] Comment on above: Performed By: #### U PCR, DSU #### [facility] ([id number]) [address] [place] [address] Basophils/100 WBC (Bld) 0.2 % Normal [facility] Comment on above: Performed By: #### U PCR, DSU #### [facility] ([id number]) [address] [address] Eosinophils (Bld) [#/Vol] 0.1 10*3/uL Normal 0.0-0.4 [facility] Comment on above: Performed By: #### U PCR, DSU #### [facility] ([id number]) [address] [place] [address] Eosinophils/100 WBC (Bld) 0.2 % Normal [facility] Comment on above: Performed By: #### U PCR, DSU #### [facility] ([id number]) [address] [place] [address] Erythrocyte distribution width (RBC) [Ratio] 13.1 % Normal 11.5-15.0 [facility] Comment on above: Performed By: #### U PCR, DSU #### [facility] ([id number]) [address] [place] [address] Hematocrit (Bld) [Volume fraction] 34.3 % Low 35-47 [facility] Comment on above: Performed By: #### U PCR, DSU #### [facility] ([id number]) [address] [place] [address] Hemoglobin (Bld) [Mass/Vol] 11.7 g/dL Normal 11.7-15.5 [facility] Comment on above: Performed By: #### U PCR, DSU #### [facility] ([id number]) [address] [place] [address] Lymphocytes (Bld) [#/Vol] 4.6 10*3/uL High 1.0-3.5 [facility] Comment on above: Performed By: #### U PCR, DSU #### [facility] ([id number]) [address] [place] [address] Lymphocytes/100 WBC (Bld) 22.5 % Normal [facility] Comment on above: Performed By: #### U PCR, DSU #### [facility] ([id number]) [address], [address] [place] [address] MCH (RBC) [Entitic mass] 30.3 pg Normal 27-34 [facility] Comment on above: Performed By: #### U PCR, DSU #### [facility] ([id number]) [address], [address] [place] [address] MCHC (RBC) [Mass/Vol] 34.1 g/dL Normal 32-36 [facility] Comment on above: Performed By: #### U PCR, DSU #### [facility] ([id number]) [address], [address] [place] [address] MCV (RBC) [Entitic vol] 89 fL Normal 80-100 [facility] Comment on above: Performed By: #### U PCR, DSU #### [facility] ([id number]) [address], [address] [place] [address] Monocytes (Bld) [#/Vol] 1.8 10*3/uL High 0-0.9 [facility] Comment on above: Performed By: #### U PCR, DSU #### [facility] ([id number]) [address], [address] [place] [address] Monocytes/100 WBC (Bld) 9.0 % Normal [facility] Comment on above: Performed By: #### U PCR, DSU #### [facility] ([id number]) [address] [place] [address] Neutrophils/100 WBC (Bld) 68.1 % Normal [facility] Comment on above: Performed By: #### U PCR, DSU #### [facility] ([id number]) [address], [address] [place] [address] Platelet mean volume (Bld) [Entitic vol] 7.9 fL Normal 7-12 [facility] Comment on above: Performed By: #### U PCR, DSU #### [facility] ([id number]) [address], [address] [place] [address] Platelets (Bld) [#/Vol] 352 10*3/uL Normal 150-450 [facility] Comment on above: Performed By: #### U PCR, DSU #### [facility] ([id number]) [address], [facility] [address] [place] [address] RBC COUNT 3.85 X10E12/L Normal 3.80-5.20 [facility] Comment on above: Performed By: #### U PCR, DSU #### [facility] ([id number]) [address], [facility] [address] [place] [address] WBC (Bld) [#/Vol] 20.5 10*3/uL High 4.0-11.0 [facility] Comment on above: Performed By: #### U PCR, DSU #### [facility] ([id number]) [address] [place] [address] COMPREHENSIVE METABOLIC PANE Yasmani 10-11-2023 Albumin [Mass/Vol] 3.2 g/dL Normal 3.2-5.3 [facility] Comment on above: Performed By: #### U PCR, DSU #### [facility] ([id number]) [address], [address] [place] [address] ALP [Catalytic activity/Vol] 58 U/L Normal 39-130 [facility] Comment on above: Performed By: #### U PCR, DSU #### [facility] ([id number]) [address], [facility] [address] [place] [address] ALT [Catalytic activity/Vol] 13 U/L Normal 0-31 [facility] Comment on above: Performed By: #### U PCR, DSU #### [facility] ([id number]) [address] [place] [address] Anion gap [Moles/Vol] 10 mmol/L Normal 5-15 [facility] Comment on above: Performed By: #### U PCR, DSU #### [facility] ([id number]) [address] [place] [address] AST [Catalytic activity/Vol] 19 U/L Normal 0-41 [facility] Comment on above: Performed By: #### U PCR, DSU #### [facility] ([id number]) [address] [place] [address] Bilirubin [Mass/Vol] 0.2 mg/dL Low 0.3-1.2 [facility] Comment on above: Performed By: #### U PCR, DSU #### [facility] ([id number]) [address] [place] [address] Calcium [Mass/Vol] 8.1 mg/dL Low 8.5-10.5 [facility] Comment on above: Performed By: #### U PCR, DSU #### [facility] ([id number]) [address] [place] [address] Chloride [Moles/Vol] 103 mmol/L Normal 98-109 [facility] Comment on above: Performed By: #### U PCR, DSU #### [facility] ([id number]) [address] [place] [address] CO2 [Moles/Vol] 27 mmol/L Normal 22-32 [facility] Comment on above: Performed By: #### U PCR, DSU #### [facility] ([id number]) [address] [place] [address] Creatinine [Mass/Vol] 0.73 mg/dL Normal 0.40-1.00 [facility] Comment on above: Result Comment: METH OD TRACEABLE TO IDMS STANDARD Performed By: #### U PCR, DSU #### [facility] ([id number]) [address], [address] [place] [address] eGFR (CKD-EPI) NON-RACE DEPENDENT >90 Normal >59 [facility] Comment on above: Result Comment: Reported eGFR is based on the CKD-EPI 2020 equation that does not use a race coefficient. Performed By: #### U PCR, DSU #### [facility] ([id number]) [address], [address] [place] [address] Glucose [Mass/Vol] 79 mg/dL Normal 65-99 [facility] Comment on above: Performed By: #### U PCR, DSU #### [facility] ([id number]) [address] [address] [place] [address] Potassium [Moles/Vol] 4.1 mmol/L Normal 3.5-5.0 [facility] Comment on above: Performed By: #### U PCR, DSU #### [facility] ([id number]) [address] [place] [address] Protein [Mass/Vol] 5.9 g/dL Low 6.0-8.0 [facility] Comment on above: Performed By: #### U PCR, DSU #### [facility] ([id number]) [address], [address] [place] [address] Sodium [Moles/Vol] 140 mmol/L Normal 134-146 [facility] Comment on above: Performed By: #### U PCR, DSU #### [facility] ([id number]) [address] [address] [place] [address] Urea nitrogen [Mass/Vol] 21 mg/dL Normal 5-23 [facility] Comment on above: Performed By: #### U PCR, DSU #### [facility] ([id number]) [address], [address] [place] [address] CAPILLARY BLOOD GASon 2023 HERIBERTO'S TEST Normal [facility] Comment on above: Performed By: #### U PCR, DSU #### [facility] ([id number]) [address] [place] [address] BASE,DEFICIT 4.0 MMOL/L High 0.0-2.0 [facility] Comment on above: Performed By: #### U PCR, DSU #### [facility] ([id number]) [address] [place] [address] Body temperature 98.6 [degF] Normal 37.0 [facility] Comment on above: Performed By: #### U PCR, DSU #### [facility] ([id number]) [address] [place] [address] HCO3 (Bld) [Moles/Vol] 22.3 mmol/L Normal 20.0-24.0 [facility] Comment on above: Performed By: #### U PCR, DSU #### [facility] ([id number]) [address] [place] [address] INSP. O2 CONC. 35 % Normal [facility] Comment on above: Performed By: #### U PCR, DSU #### [facility] ([id number]) [address] [place] [address] Oxygen saturation in Blood 37.0 % Low >80.0 [facility] Comment on above: Performed By: #### U PCR, DSU #### [facility] ([id number]) [address] [place] [address] OXYGEN SOURCE Vent Normal [facility] Comment on above: Performed By: #### U PCR, DSU #### [facility] ([id number]) [address] [place] [address] PCO2, CAPILLARY 42.3 MMHG Normal 35-45 [facility] Comment on above: Performed By: #### U PCR, DSU #### [facility] ([id number]) [address] [place] [address] PH, CAPILLARY 7.330 Normal 7.330-7.490 [facility] Comment on above: Performed By: #### U PCR, DSU #### [facility] ([id number]) [address] [place] [address] PO2, CAPILLARY 23 MMHG Low 35-45 [facility] Comment on above: Performed By: #### U PCR, DSU #### [facility] ([id number]) [address] [place] [address] SAMPLE SITE RHeel Normal [facility] Comment on above: Performed By: #### U PCR, DSU #### [facility] ([id number]) [address] [place] [address] SAMPLE TYPE CAPILLARY Normal [facility] Comment on above: Performed By: #### U PCR, DSU #### [facility] ([id number]) [address] [place] [address] CBC AND AUTO DIFFon 3020 24 Band form neutrophils/100 WBC (Bld) 1.0 % Normal [facility] Comment on above: Performed By: #### U PCR, DSU #### [facility] ([id number]) [address] [place] [address] Erythrocyte distribution width (RBC) [Ratio] 13.4 % Normal 11.5-15.0 [facility] Comment on above: Performed By: #### U PCR, DSU #### [facility] ([id number]) [address] [place] [address] Hematocrit (Bld) [Volume fraction] 35.2 % Normal 35-47 [facility] Comment on above: Performed By: #### U PCR, DSU #### [facility] ([id number]) [address] [place] [address] Hemoglobin (Bld) [Mass/Vol] 12.2 g/dL Normal 11.7-15.5 [facility] Comment on above: Performed By: #### U PCR, DSU #### [facility] ([id number]) [address] [place] [address] Lymphocytes (Bld) [#/Vol] 4.0 10*3/uL High 1.0-3.5 [facility] Comment on above: Performed By: #### U PCR, DSU #### [facility] ([id number]) [address] [place] [address] Lymphocytes/100 WBC (Bld) 16.0 % Normal [facility] Comment on above: Performed By: #### U PCR, DSU #### [facility] ([id number]) [address] [place] [address] MCH (RBC) [Entitic mass] 30.7 pg Normal 27-34 [facility] Comment on above: Performed By: #### U PCR, DSU #### [facility] ([id number]) [address] [place] [address] MCHC (RBC) [Mass/Vol] 34.6 g/dL Normal 32-36 [facility] Comment on above: Performed By: #### U PCR, DSU #### [facility] ([id number]) [address] [place] [address] MCV (RBC) [Entitic vol] 89 fL Normal 80-100 [facility] Comment on above: Performed By: #### U PCR, DSU #### [facility] ([id number]) [address] [place] [address] Monocytes (Bld) [#/Vol] 1.3 10*3/uL High 0-0.9 [facility] Comment on above: Performed By: #### U PCR, DSU #### [facility] ([id number]) [address] [place] [address] Monocytes/100 WBC (Bld) 5.0 % Normal [facility] Comment on above: Performed By: #### U PCR, DSU #### [facility] ([id number]) [address] [place] [address] Neutrophils (Bld) [#/Vol] 19.9 10*3/uL High 1.5-6.6 [facility] Comment on above: Performed By: #### U PCR, DSU #### [facility] ([id number]) [address] [place] [address] Platelet mean volume (Bld) [Entitic vol] 8.0 fL Normal 7-12 [facility] Comment on above: Performed By: #### U PCR, DSU #### [facility] ([id number]) [address] [place] [address] Platelets (Bld) [#/Vol] 375 10*3/uL Normal 150-450 [facility] Comment on above: Performed By: #### U PCR, DSU #### [facility] ([id number]) [address] [place] [address] RBC COUNT 3.97 X10E12/L Normal 3.80-5.20 [facility] Comment on above: Performed By: #### U PCR, DSU #### [facility] ([id number]) [address] [place] [address] RBC morphology finding Nom (Bld) NORMAL Normal [facility] Comment on above: Performed By: #### U PCR, DSU #### [facility] ([id number]) [address] [place] [address] SEG NEUTROPHIL 78.0 % Normal [facility] Comment on above: Performed By: #### U PCR, DSU #### [facility] ([id number]) [address] [place] [address] WBC (Bld) [#/Vol] 25.2 10*3/uL High 4.0-11.0 [facility] Comment on above: Performed By: #### U PCR, DSU #### [facility] ([id number]) [address] [place] [address] COMPREHENSIVE METABOLIC PANE Yasmani 10-10-2023 Albumin [Mass/Vol] 3.3 g/dL Normal 3.2-5.3 [facility] Comment on above: Performed By: #### U PCR DSU #### [facility] ([id number]) [address] [place] [address] ALP [Catalytic activity/Vol] 74 U/L Normal 39-130 [facility] Comment on above: Performed By: #### U PCR DSU #### [facility] ([id number]) [address] [place] [address] ALT [Catalytic activity/Vol] 16 U/L Normal 0-31 [facility] Comment on above: Performed By: #### U PCR, DSU #### [facility] ([id number]) [address] [place] [address] Anion gap [Moles/Vol] 12 mmol/L Normal 5-15 [facility] Comment on above: Performed By: #### U PCR, DSU #### [facility] ([id number]) [address] [place] [address] AST [Catalytic activity/Vol] 20 U/L Normal 0-41 [facility] Comment on above: Performed By: #### U PCR, DSU #### [facility] ([id number]) [address] [place] [address] Bilirubin [Mass/Vol] 0.2 mg/dL Low 0.3-1.2 [facility] Comment on above: Performed By: #### U PCR, DSU #### [facility] ([id number]) [address], [facility] [address] [place] [address] Calcium [Mass/Vol] 7.6 mg/dL Low 8.5-10.5 [facility] Comment on above: Performed By: #### U PCR, DSU #### [facility] ([id number]) [address] [place] [address] Chloride [Moles/Vol] 100 mmol/L Normal 98-109 [facility] Comment on above: Performed By: #### U PCR, DSU #### [facility] ([id number]) [address] [place] [address] CO2 [Moles/Vol] 24 mmol/L Normal 22-32 [facility] Comment on above: Performed By: #### U PCR, DSU #### [facility] ([id number]) [address] [address] [place] [address] Creatinine [Mass/Vol] 0.71 mg/dL Normal 0.40-1.00 [facility] Comment on above: Result Comment: METH OD TRACEABLE TO IDMS STANDARD Performed By: #### U PCR, DSU #### [facility] ([id number]) [address] [address] [place] [address] eGFR (CKD-EPI) NON-RACE DEPENDENT >90 Normal >59 [facility] Comment on above: Result Comment: Reported eGFR is based on the CKD-EPI 2020 equation that does not use a race coefficient. Performed By: #### U PCR, DSU #### [facility] ([id number]) [address] [place] [address] Glucose [Mass/Vol] 101 mg/dL High 65-99 [facility] Comment on above: Performed By: #### U PCR, DSU #### [facility] ([id number]) [address] [place] [address] Potassium [Moles/Vol] 3.9 mmol/L Normal 3.5-5.0 [facility] Comment on above: Performed By: #### U PCR, DSU #### [facility] ([id number]) [address] [place] [address] Protein [Mass/Vol] 6.3 g/dL Normal 6.0-8.0 [facility] Comment on above: Performed By: #### U PCR, DSU #### [facility] ([id number]) [address] [place] [address] Sodium [Moles/Vol] 136 mmol/L Normal 134-146 [facility] Comment on above: Performed By: #### U PCR DSU #### [facility] ([id number]) [address] [place] [address] Urea nitrogen [Mass/Vol] 13 mg/dL Normal 5-23 [facility] Comment on above: Performed By: #### U PCR, DSU #### [facility] ([id number]) [address] [place] [address] Albumin [Mass/Vol] 3.3 g/dL Normal 3.2-5.3 [facility] Comment on above: Performed By: #### U PCR, DSU #### [facility] ([id number]) [address] [place] [address] ALP [Catalytic activity/Vol] 74 U/L Normal 39-130 [facility] Comment on above: Performed By: #### U PCR, DSU #### [facility] ([id number]) [address] [place] [address] ALT [Catalytic activity/Vol] 19 U/L Normal 0-31 [facility] Comment on above: Performed By: #### U PCR, DSU #### [facility] ([id number]) [address] [place] [address] Anion gap [Moles/Vol] 13 mmol/L Normal 5-15 [facility] Comment on above: Performed By: #### U PCR, DSU #### [facility] ([id number]) [address] [place] [address] AST [Catalytic activity/Vol] 24 U/L Normal 0-41 [facility] Comment on above: Performed By: #### U PCR, DSU #### [facility] ([id number]) [address] [place] [address] Bilirubin [Mass/Vol] 0.3 mg/dL Normal 0.3-1.2 [facility] Comment on above: Performed By: #### U PCR, DSU #### [facility] ([id number]) [address] [place] [address] Calcium [Mass/Vol] 8.1 mg/dL Low 8.5-10.5 [facility] Comment on above: Performed By: #### U PCR, DSU #### [facility] ([id number]) [address] [place] [address] Chloride [Moles/Vol] 102 mmol/L Normal 98-109 [facility] Comment on above: Performed By: #### U PCR, DSU #### [facility] ([id number]) [address] [place] [address] CO2 [Moles/Vol] 22 mmol/L Normal 22-32 [facility] Comment on above: Performed By: #### U PCR, DSU #### [facility] ([id number]) [address] [address] [place] [address] Creatinine [Mass/Vol] 0.78 mg/dL Normal 0.40-1.00 [facility] Comment on above: Result Comment: METH OD TRACEABLE TO IDMS STANDARD Performed By: #### U PCR, DSU #### [facility] ([id number]) [address] [address] [place] [address] eGFR (CKD-EPI) NON-RACE DEPENDENT >90 Normal >59 [facility] Comment on above: Result Comment: Reported eGFR is based on the CKD-EPI 2020 equation that does not use a race coefficient. Performed By: #### U PCR, DSU #### [facility] ([id number]) [address] [facility] [address] [place] [address] Glucose [Mass/Vol] 118 mg/dL High 65-99 [facility] Comment on above: Performed By: #### U PCR, DSU #### [facility] ([id number]) [address] [place] [address] Potassium [Moles/Vol] 4.2 mmol/L Normal 3.5-5.0 [facility] Comment on above: Performed By: #### U PCR, DSU #### [facility] ([id number]) [address] [address] [place] [address] Protein [Mass/Vol] 6.2 g/dL Normal 6.0-8.0 [facility] Comment on above: Performed By: #### U PCR, DSU #### [facility] ([id number]) [address] [address] [place] [address] Sodium [Moles/Vol] 137 mmol/L Normal 134-146 [facility] Comment on above: Performed By: #### U PCR, DSU #### [facility] ([id number]) [address] [place] [address] Urea nitrogen [Mass/Vol] 16 mg/dL Normal 5-23 [facility] Comment on above: Performed By: #### U PCR, DSU #### [facility] ([id number]) [address] [place] [address] CORD ARTERIAL GASon 10-10-19 24 HERIBERTO'S TEST Normal [facility] Comment on above: Performed By: #### A CA, 5124-3, 79815-8, 96994-1, 87035-0 #### [facility] ([id number]) [address] [place] [address] BASE,DEFICIT 5.0 MMOL/L High 0.0-2.0 [facility] Comment on above: Performed By: #### A CA, 5124-3, 82003-3, 14242-1, 12551-6 #### [facility] ([id number]) [address] [place] [address] HCO3 (Bld) [Moles/Vol] 20.2 mmol/L Low 22-26 [facility] Comment on above: Performed By: #### A CA, 5124-3, 23943-2, 01714-7, 84319-5 #### [facility] ([id number]) [address] [place] [address] Oxygen (Bld) [Partial pressure] 21 mm[Hg] Normal 12-24 [facility] Comment on above: Performed By: #### A CA, 5124-3, 58444-7, 50165-1, 24367-1 #### [facility] ([id number]) [address] [place] [address] Oxygen saturation in Blood 30.0 % Normal 7.1-39.5 [facility] Comment on above: Performed By: #### A CA, 5124-3, 74434-4, 13602-0, 91231-6 #### [facility] ([id number]) [address] [place] [address] OXYGEN SOURCE [employer]Air Normal [facility] Comment on above: Performed By: #### A CA, 5124-3, 71319-8, 68448-0, 68471-9 #### [facility] ([id number]) [address] [facility] [address] [place] [address] PCO2 39.1 MMHG Low 40.8-57.6 [facility] Comment on above: Performed By: #### A PARUL, 5124-3, 23214-7, 64638-6, 04237-9 #### [facility] ([id number]) [address] [facility] [address] [place] [address] pH (Bld) 7.321 [pH] High 7.24-7.30 [facility] Comment on above: Performed By: #### A PARUL, 5124-3, 24542-2, 50284-2, 28156-4 #### [facility] ([id number]) [address] [place] [address] SAMPLE SITE [employer] Normal [facility] Comment on above: Performed By: #### A PARUL, 5124-3, 61186-5, 24425-8, 21346-4 #### [facility] ([id number]) [address] [address] [place] [address] SAMPLE TYPE UMBILICALCORD [facility] Comment on above: Performed By: #### A CA, 5124-3, 94290-1, 15675-1, 76260-5 #### [facility] ([id number]) [address] [place] [address] CORD VENOUS GASon 10-10-2023 HERIBERTO'S TEST Normal [facility] Comment on above: Performed By: #### A CA, 5124-3, 37045-5, 42532-9, 71026-4 #### [facility] ([id number]) [address] [place] [address] BASE,DEFICIT 4.0 MMOL/L High 0.0-2.0 [facility] Comment on above: Performed By: #### A CA, 5124-3, 10690-2, 09510-8, 13483-7 #### [facility] ([id number]) [address] [place] [address] HCO3 (Bld) [Moles/Vol] 22.3 mmol/L Normal 20.0-24.0 [facility] Comment on above: Performed By: #### A PARUL, 5124-3, 25083-4, 35833-2, 82972-5 #### [facility] ([id number]) [address] [place] [address] Oxygen (Bld) [Partial pressure] 17 mm[Hg] Low 22-35 [facility] Comment on above: Performed By: #### A PARUL, 5124-3, 23795-9, 53572-2, 62068-8 #### [facility] ([id number]) [address] [place] [address] Oxygen saturation in Blood 20.0 % Low 32.5-66.3 [facility] Comment on above: Performed By: #### A CA, 5124-3, 89027-8, 61705-8, 25611-6 #### [facility] ([id number]) [address] [place] [address] OXYGEN SOURCE RoomAir Normal [facility] Comment on above: Performed By: #### A PARUL, 5124-3, 63580-7, 33527-4, 35074-1 #### [facility] ([id number]) [address] [place] [address] PCO2 43.8 MMHG Normal 32.6-43.8 [facility] Comment on above: Performed By: #### A CA, 5124-3, 93671-9, 99075-9, 40039-2 #### [facility] ([id number]) [address] [place] [address] pH (Bld) 7.315 [pH] Normal 7.25-7.37 [facility] Comment on above: Performed By: #### A CA, 5124-3, 16030-3, 86482-2, 13050-0 #### [facility] ([id number]) [address] [place] [address] SAMPLE SITE VenCord Normal [facility] Comment on above: Performed By: #### A CA, 5124-3, 83028-4, 67365-9, 62521-6 #### [facility] ([id number]) [address], [address] [place] [address] SAMPLE TYPE UMBILICALCORD Normal [facility] Comment on above: Performed By: #### A CA, 5124-3, 31808-5, 97874-3, 73902-3 #### [facility] ([id number]) [address], [address] [address] Surgical Pathologyon 024 Surgical Pathology Normal [facility] Comment on above: Result Comment: [facility] [address] [place] [address] Surgical Pathology Consultation Patient Name:SISI MORA:1995 (Age: 28)Gender:FTaken:4Reported:4Physician(s):Sue Holland M.D. ([id number])Copy To: Rec. #:[id number]: #[id number] Final Pathologic Diagnosis Bilateral fallopian tubes: Benign fallopian tubes. Report Electronically Signed Out kiki/10/14/2023britany Cifuentes MD Interpretation performed at [facility], [address] [place] [address], License number: [id number]. Clinical History Pre-eclampsia with severe features. Gross Description Received in formalin labeled MORA, left and right fallopian tube are two [...] (inked tube) is submitted in cassette A, farm loan representative cross-sections of fallopian tube (inked) in cassette B, perpendicularly sectioned fimbria (uninked tube) in cassette C, and farm loan representative cross-sections of fallopian tube (uninked) in cassette D. (4, ss, [id number], m1) SHIV finney/10/12/2023GR Specimen(s) Received Right and left fallopian tubes Fee Codes(s): 1; 10648 BETA-2 GP1 AB PANELon 2023 BETA-2 GP1 IgA <2.0 Normal 0.0-19.9 [facility] Comment on above: Performed By: #### A CA, 5124-3, 93359-1, 56410-1, 67077-6 #### [facility] ([id number]) [address] [facility], [address] [place] [address] BETA-2 GP1 IgG <1.4 Normal 0.0-19.9 [facility] Comment on above: Performed By: #### A CA, 5124-3, 00901-3, 98851-4, 74072-2 #### [facility] ([id number]) [address] [address] [place] [address] BETA-2 GP1 IgM <1.5 Normal 0.0-19.9 [facility] Comment on above: Performed By: #### A PARUL, 5124-3, 48468-0, 91791-6, 48942-1 #### [facility] ([id number]) [address], [address] [address] CBC AND AUTO DIFFon 10-09-19 24 ABSOLUTE BASOPHIL 0.3 X10E9/L High 0.0-0.2 [facility] Comment on above: Performed By: #### A PARUL, 5124-3, 81066-4, 38370-6, 69638-8 #### [facility] ([id number]) [address] [address] ABSOLUTE NEUTROPHIL 15.1 X10E9/L High 1.5-6.6 [facility] Comment on above: Performed By: #### A PARUL, 5124-3, 74842-9, 69240-6, 34647-9 #### [facility] ([id number]) [address] [address] Basophils/100 WBC (Bld) 1.5 % Normal [facility] Comment on above: Performed By: #### A PARUL, 5124-3, 90546-9, 29779-2, 61021-0 #### [facility] ([id number]) [address] [address] Eosinophils (Bld) [#/Vol] 0.0 10*3/uL Normal 0.0-0.4 [facility] Comment on above: Performed By: #### A PARUL, 5124-3, 60324-2, 60233-6, 78655-1 #### [facility] ([id number]) [address] [place] [address] Eosinophils/100 WBC (Bld) 0.1 % Normal [facility] Comment on above: Performed By: #### A PARUL, 5124-3, 17825-3, 32982-5, 38091-5 #### [facility] ([id number]) [address] [address] Erythrocyte distribution width (RBC) [Ratio] 12.7 % Normal 11.5-15.0 [facility] Comment on above: Performed By: #### A PARUL, 5124-3, 68966-7, 59959-8, 58896-3 #### [facility] ([id number]) [address] [address] Hematocrit (Bld) [Volume fraction] 38.4 % Normal 35-47 [facility] Comment on above: Performed By: #### A PARUL, 5124-3, 71857-6, 80040-3, 76232-4 #### [facility] ([id number]) [address] [address] Hemoglobin (Bld) [Mass/Vol] 12.9 g/dL Normal 11.7-15.5 [facility] Comment on above: Performed By: #### A PARUL, 5124-3, 72746-2, 95218-5, 32810-5 #### [facility] ([id number]) [address] [address] Lymphocytes (Bld) [#/Vol] 3.7 10*3/uL High 1.0-3.5 [facility] Comment on above: Performed By: #### A PARUL, 5124-3, 59702-0, 63630-4, 05055-3 #### [facility] ([id number]) [address] [address] Lymphocytes/100 WBC (Bld) 18.7 % Normal [facility] Comment on above: Performed By: #### A CA, 5124-3, 03768-5, 48273-4, 70231-0 #### [facility] ([id number]) [address] [address] [place] [address] MCH (RBC) [Entitic mass] 30.1 pg Normal 27-34 [facility] Comment on above: Performed By: #### A CA, 5124-3, 88524-8, 99054-8, 45852-7 #### [facility] ([id number]) [address] [address] [place] [address] MCHC (RBC) [Mass/Vol] 33.7 g/dL Normal 32-36 [facility] Comment on above: Performed By: #### A CA, 5124-3, 33491-4, 88498-9, 69496-0 #### [facility] ([id number]) [address] [address] MCV (RBC) [Entitic vol] 89 fL Normal 80-100 [facility] Comment on above: Performed By: #### A CA, 5124-3, 49711-9, 87977-5, 95313-4 #### [facility] ([id number]) [address] [address] Monocytes (Bld) [#/Vol] 0.6 10*3/uL Normal 0-0.9 [facility] Comment on above: Performed By: #### A CA, 5124-3, 54665-0, 17557-5, 55483-0 #### [facility] ([id number]) [address] [address] Monocytes/100 WBC (Bld) 3.1 % Normal [facility] Comment on above: Performed By: #### A CA, 5124-3, 73317-8, 63328-6, 17993-9 #### [facility] ([id number]) [address], [facility] [address] [place] [address] Neutrophils/100 WBC (Bld) 76.6 % Normal [facility] Comment on above: Performed By: #### A CA, 5124-3, 31375-2, 16017-1, 79799-8 #### [facility] ([id number]) [address], [facility] [address] [place] [address] Platelet mean volume (Bld) [Entitic vol] 8.2 fL Normal 7-12 [facility] Comment on above: Performed By: #### A CA, 5124-3, 38711-3, 52837-6, 83105-5 #### [facility] ([id number]) [address] [address] Platelets (Bld) [#/Vol] 434 10*3/uL Normal 150-450 [facility] Comment on above: Performed By: #### A CA, 5124-3, 42955-6, 87690-1, 38053-5 #### [facility] ([id number]) [address] [address] [place] [address] RBC COUNT 4.30 X10E12/L Normal 3.80-5.20 [facility] Comment on above: Performed By: #### A CA, 5124-3, 53646-1, 23275-8, 45613-4 #### [facility] ([id number]) [address] [place] [address] WBC (Bld) [#/Vol] 19.7 10*3/uL High 4.0-11.0 [facility] Comment on above: Performed By: #### A CA, 5124-3, 72808-8, 87247-2, 67979-2 #### [facility] ([id number]) [address] [place] [address] COMPLETE BLOOD COUNTon 10-08 Erythrocyte distribution width (RBC) [Ratio] 13.0 % Normal 11.5-15.0 [facility] Comment on above: Performed By: #### A CA, 5124-3, 79714-5, 46698-5, 27340-8 #### [facility] ([id number]) [address] [address] Hematocrit (Bld) [Volume fraction] 38.0 % Normal 35-47 [facility] Comment on above: Performed By: #### A PARUL, 5124-3, 37132-5, 50448-4, 11041-2 #### [facility] ([id number]) [address] [address] Hemoglobin (Bld) [Mass/Vol] 12.9 g/dL Normal 11.7-15.5 [facility] Comment on above: Performed By: #### A PARUL, 5124-3, 31165-3, 55367-8, 67478-6 #### [facility] ([id number]) [address] [address] MCH (RBC) [Entitic mass] 30.2 pg Normal 27-34 [facility] Comment on above: Performed By: #### A PARUL, 5124-3, 65968-0, 12887-5, 91645-7 #### [facility] ([id number]) [address] [address] MCHC (RBC) [Mass/Vol] 34.0 g/dL Normal 32-36 [facility] Comment on above: Performed By: #### A PARUL, 5124-3, 29525-6, 11974-0, 42385-8 #### [facility] ([id number]) [address] [address] MCV (RBC) [Entitic vol] 89 fL Normal 80-100 [facility] Comment on above: Performed By: #### A CA, 5124-3, 93370-5, 35762-5, 37955-7 #### [facility] ([id number]) [address] [place] [address] Platelet mean volume (Bld) [Entitic vol] 8.2 fL Normal 7-12 [facility] Comment on above: Performed By: #### A CA, 5124-3, 10997-9, 52818-5, 46842-7 #### [facility] ([id number]) [address], [facility] [address] [place] [address] Platelets (Bld) [#/Vol] 410 10*3/uL Normal 150-450 [facility] Comment on above: Performed By: #### A PARUL, 5124-3, 06105-5, 69786-2, 66538-4 #### [facility] ([id number]) [address] [place] [address] RBC COUNT 4.28 X10E12/L Normal 3.80-5.20 [facility] Comment on above: Performed By: #### A PARUL, 5124-3, 36076-6, 68675-4, 43904-2 #### [facility] ([id number]) [address], [facility] [address] [place] [address] WBC (Bld) [#/Vol] 19.3 10*3/uL High 4.0-11.0 [facility] Comment on above: Performed By: #### A CA, 5124-3, 64670-8, 86302-2, 57650-4 #### [facility] ([id number]) [address] [place] [address] COMPREHENSIVE METABOLIC PANE Yasmani 10-09-2023 Albumin [Mass/Vol] 3.6 g/dL Normal 3.2-5.3 [facility] Comment on above: Performed By: #### A CA, 5124-3, 10049-1, 43171-6, 41289-4 #### [facility] ([id number]) [address] [place] [address] ALP [Catalytic activity/Vol] 95 U/L Normal 39-130 [facility] Comment on above: Performed By: #### A CA, 5124-3, 96859-9, 44264-5, 20203-0 #### [facility] ([id number]) [address], [facility] [address] [place] [address] ALT [Catalytic activity/Vol] 23 U/L Normal 0-31 [facility] Comment on above: Performed By: #### A CA, 5124-3, 53156-9, 74927-1, 79630-0 #### [facility] ([id number]) [address] [address] [place] [address] Anion gap [Moles/Vol] 15 mmol/L Normal 5-15 [facility] Comment on above: Performed By: #### A CA, 5124-3, 74238-9, 96983-0, 57271-3 #### [facility] ([id number]) [address], [facility] [address] [place] [address] AST [Catalytic activity/Vol] 24 U/L Normal 0-41 [facility] Comment on above: Performed By: #### A CA, 5124-3, 60622-5, 27010-1, 01663-5 #### [facility] ([id number]) [address], [facility] [address] [place] [address] Bilirubin [Mass/Vol] 0.2 mg/dL Low 0.3-1.2 [facility] Comment on above: Performed By: #### A CA, 5124-3, 69629-0, 81350-1, 55276-3 #### [facility] ([id number]) [address], [facility] [address] [place] [address] Calcium [Mass/Vol] 9.3 mg/dL Normal 8.5-10.5 [facility] Comment on above: Performed By: #### A CA, 5124-3, 91861-3, 32415-0, 92192-8 #### [facility] ([id number]) [address] [place] [address] Chloride [Moles/Vol] 103 mmol/L Normal 98-109 [facility] Comment on above: Performed By: #### A CA, 5124-3, 97948-3, 17944-6, 94523-2 #### [facility] ([id number]) [address], [facility] [address] [place] [address] CO2 [Moles/Vol] 19 mmol/L Low 22-32 [facility] Comment on above: Performed By: #### A PARUL, 5124-3, 16666-1, 96126-7, 44113-8 #### [facility] ([id number]) [address], [facility] [address] [place] [address] Creatinine [Mass/Vol] 0.71 mg/dL Normal 0.40-1.00 [facility] Comment on above: Result Comment: METH OD TRACEABLE TO IDMS STANDARD Performed By: #### A PARUL, 5124-3, 87400-2, 92233-2, 94594-4 #### [facility] ([id number]) [address] [place] [address] eGFR (CKD-EPI) NON-RACE DEPENDENT >90 Normal >59 [facility] Comment on above: Result Comment: Reported eGFR is based on the CKD-EPI 2020 equation that does not use a race coefficient. Performed By: #### A CA, 5124-3, 18351-4, 17439-9, 14366-6 #### [facility] ([id number]) [address] [place] [address] Glucose [Mass/Vol] 122 mg/dL High 65-99 [facility] Comment on above: Performed By: #### A CA, 5124-3, 31379-7, 27750-7, 84395-0 #### [facility] ([id number]) [address] [place] [address] Potassium [Moles/Vol] 4.0 mmol/L Normal 3.5-5.0 [facility] Comment on above: Performed By: #### A CA, 5124-3, 07371-9, 03991-9, 80862-8 #### [facility] ([id number]) [address] [place] [address] Protein [Mass/Vol] 7.0 g/dL Normal 6.0-8.0 [facility] Comment on above: Performed By: #### A CA, 5124-3, 18619-4, 64639-6, 49672-8 #### [facility] ([id number]) [address] [place] [address] Sodium [Moles/Vol] 137 mmol/L Normal 134-146 [facility] Comment on above: Performed By: #### A CA, 5124-3, 45370-3, 69605-3, 95237-2 #### [facility] ([id number]) [address] [place] [address] Urea nitrogen [Mass/Vol] 20 mg/dL Normal 5-23 [facility] Comment on above: Performed By: #### A CA, 5124-3, 14516-9, 41420-0, 94042-6 #### [facility] ([id number]) [address] [place] [address] Surgical Pathologyon 024 Surgical Pathology Normal [facility] Comment on above: Result Comment: [facility] [address] [place], [place] [address] Surgical Pathology Consultation Patient Name:SISI MORA:1995 (Age: 28)Gender:FTaken:4Reported:4Physician(s):Sue Holland M.D. ([id number])Copy To:Jak Anaya [facility]:[id number]. Rec. #:[id number]: #[id number] Final Pathologic Diagnosis Placenta: small for gestational age third trimester placenta (193 g, <10th percentile for gestational age of 30 weeks), demonstrating focal placental infarcts, incomplete adaptation for (maternal decidual vasculopathy) and increased syncytial knots. Negative membranes. Unremarkable three-vessel umbilical cord with eccentric insertion. Report Electronically Signed Out ao4Aceline Steward MD Interpretation performed at [facility], [address] [place] [address], License number: [id number]. Clinical History Pre-eclampsia severe, with delivery. Gross Description Received in formalin labeled greg MORA : Single MEMBRANES: Placenta Sac Rupture (cm [...] Rolled membrane, two sections of cord B[facility] sections of placenta (to include rubbery areas in cassette C???D) E Additional rolled membrane (5, ss, [id number],A-E, m5) JG jmg/10/21/2023O Specimen(s) Received Placenta Fee Codes(s): 1; [address] CBC AND AUTO DIFFon 10-07-19 24 ABSOLUTE BASOPHIL 0.1 X10E9/L Normal 0.0-0.2 [facility] Comment on above: Performed By: #### A CA, 5124-3, 35592-1, 14427-9, 96477-9 #### [facility] ([id number]) [address] [place] [address] ABSOLUTE NEUTROPHIL 9.6 X10E9/L High 1.5-6.6 [facility] Comment on above: Performed By: #### A CA, 5124-3, 04529-9, 36148-2, 79127-8 #### [facility] ([id number]) [address] [place] [address] Basophils/100 WBC (Bld) 0.7 % Normal [facility] Comment on above: Performed By: #### A CA, 5124-3, 76389-9, 59827-7, 47513-1 #### [facility] ([id number]) [address] [place] [address] Eosinophils (Bld) [#/Vol] 0.2 10*3/uL Normal 0.0-0.4 [facility] Comment on above: Performed By: #### A CA, 5124-3, 40647-7, 50004-2, 81968-8 #### [facility] ([id number]) [address] [place] [address] Eosinophils/100 WBC (Bld) 1.5 % Normal [facility] Comment on above: Performed By: #### A CA, 5124-3, 93380-9, 99112-5, 24037-1 #### [facility] ([id number]) [address] [address] [place] [address] Erythrocyte distribution width (RBC) [Ratio] 12.9 % Normal 11.5-15.0 [facility] Comment on above: Performed By: #### A CA, 5124-3, 86015-6, 67173-1, 47572-4 #### [facility] ([id number]) [address] [address] Hematocrit (Bld) [Volume fraction] 38.9 % Normal 35-47 [facility] Comment on above: Performed By: #### A PARUL, 5124-3, 53592-7, 28973-6, 43056-0 #### [facility] ([id number]) [address] [address] Hemoglobin (Bld) [Mass/Vol] 13.1 g/dL Normal 11.7-15.5 [facility] Comment on above: Performed By: #### A PARUL, 5124-3, 60959-6, 17318-4, 54207-3 #### [facility] ([id number]) [address] [address] Lymphocytes (Bld) [#/Vol] 4.8 10*3/uL High 1.0-3.5 [facility] Comment on above: Performed By: #### A PARUL, 5124-3, 55601-4, 35852-8, 71311-4 #### [facility] ([id number]) [address] [address] Lymphocytes/100 WBC (Bld) 30.6 % Normal [facility] Comment on above: Performed By: #### A CA, 5124-3, 17545-3, 19629-1, 18068-7 #### [facility] ([id number]) [address] [address] [place] [address] MCH (RBC) [Entitic mass] 30.2 pg Normal 27-34 [facility] Comment on above: Performed By: #### A CA, 5124-3, 05432-4, 85656-6, 60680-4 #### [facility] ([id number]) [address] [place] [address] MCHC (RBC) [Mass/Vol] 33.7 g/dL Normal 32-36 [facility] Comment on above: Performed By: #### A CA, 5124-3, 77189-8, 17295-3, 27984-3 #### [facility] ([id number]) [address], [facility] [address] [place] [address] MCV (RBC) [Entitic vol] 90 fL Normal 80-100 [facility] Comment on above: Performed By: #### A CA, 5124-3, 05259-6, 71786-0, 33567-6 #### [facility] ([id number]) [address], [facility] [address] [place] [address] Monocytes (Bld) [#/Vol] 0.9 10*3/uL Normal 0-0.9 [facility] Comment on above: Performed By: #### A CA, 5124-3, 46268-8, 48073-5, 07787-9 #### [facility] ([id number]) [address] [facility] [address] [place] [address] Monocytes/100 WBC (Bld) 6.0 % Normal [facility] Comment on above: Performed By: #### A CA, 5124-3, 83854-0, 53086-6, 75631-1 #### [facility] ([id number]) [address], [facility] [address] [place] [address] Neutrophils/100 WBC (Bld) 61.2 % Normal [facility] Comment on above: Performed By: #### A CA, 5124-3, 93655-8, 30704-5, 79966-5 #### [facility] ([id number]) [address], [address] [place] [address] Platelet mean volume (Bld) [Entitic vol] 7.9 fL Normal 7-12 [facility] Comment on above: Performed By: #### A CA, 5124-3, 10067-5, 34375-1, 29328-1 #### [facility] ([id number]) [address], [facility] [address] [place] [address] Platelets (Bld) [#/Vol] 385 10*3/uL Normal 150-450 [facility] Comment on above: Performed By: #### A CA, 5124-3, 20989-8, 14906-3, 56386-0 #### [facility] ([id number]) [address], [facility] [address] [place] [address] RBC COUNT 4.35 X10E12/L Normal 3.80-5.20 [facility] Comment on above: Performed By: #### A CA, 5124-3, 00717-7, 70606-3, 68940-0 #### [facility] ([id number]) [address] [address] WBC (Bld) [#/Vol] 15.7 10*3/uL High 4.0-11.0 [facility] Comment on above: Performed By: #### A CA, 5124-3, 82359-6, 74079-0, 74506-0 #### [facility] ([id number]) [address], [address] [place] [address] COMPREHENSIVE METABOLIC PANE Yasmani 10-07-2023 Albumin [Mass/Vol] 3.2 g/dL Normal 3.2-5.3 [facility] Comment on above: Performed By: #### A CA, 5124-3, 79025-5, 44155-9, 81315-8 #### [facility] ([id number]) [address], [address] [place] [address] ALP [Catalytic activity/Vol] 73 U/L Normal 39-130 [facility] Comment on above: Performed By: #### A CA, 5124-3, 33271-3, 40784-3, 62707-3 #### [facility] ([id number]) [address], [address] [place] [address] ALT [Catalytic activity/Vol] 14 U/L Normal 0-31 [facility] Comment on above: Performed By: #### A CA, 5124-3, 13340-0, 32280-6, 16259-9 #### [facility] ([id number]) [address], [address] [place] [address] Anion gap [Moles/Vol] 10 mmol/L Normal 5-15 [facility] Comment on above: Performed By: #### A CA, 5124-3, 17160-1, 09178-3, 89533-5 #### [facility] ([id number]) [address], [address] [place] [address] AST [Catalytic activity/Vol] 17 U/L Normal 0-41 [facility] Comment on above: Performed By: #### A CA, 5124-3, 82573-2, 44711-6, 85392-5 #### [facility] ([id number]) [address], [address] [place] [address] Bilirubin [Mass/Vol] 0.2 mg/dL Low 0.3-1.2 [facility] Comment on above: Performed By: #### A CA, 5124-3, 79981-2, 39035-6, 69513-2 #### [facility] ([id number]) [address], [address] [place] [address] Calcium [Mass/Vol] 8.9 mg/dL Normal 8.5-10.5 [facility] Comment on above: Performed By: #### A PARUL, 5124-3, 64481-3, 97910-4, 53064-0 #### [facility] ([id number]) [address], [facility] [address] [place] [address] Chloride [Moles/Vol] 104 mmol/L Normal 98-109 [facility] Comment on above: Performed By: #### A PARUL, 5124-3, 68336-4, 22857-0, 18271-0 #### [facility] ([id number]) [address], [facility] [address] [place] [address] CO2 [Moles/Vol] 24 mmol/L Normal 22-32 [facility] Comment on above: Performed By: #### A PARUL, 5124-3, 41633-2, 43929-3, 37723-1 #### [facility] ([id number]) [address], [address] [address] Creatinine [Mass/Vol] 0.69 mg/dL Normal 0.40-1.00 [facility] Comment on above: Result Comment: METH OD TRACEABLE TO IDMS STANDARD Performed By: #### A PRAUL, 5124-3, 62480-1, 96342-3, 48813-7 #### [facility] ([id number]) [address], [facility] [address] [place] [address] eGFR (CKD-EPI) NON-RACE DEPENDENT >90 Normal >59 [facility] Comment on above: Result Comment: Reported eGFR is based on the CKD-EPI 2021 equation that does not use a race coefficient. Performed By: #### A PARUL, 5124-3, 57263-2, 05907-7, 43253-5 #### [facility] ([id number]) [address], [address] [place] [address] Glucose [Mass/Vol] 76 mg/dL Normal 65-99 [facility] Comment on above: Performed By: #### A PARUL, 5124-3, 14639-9, 48204-8, 79609-5 #### [facility] ([id number]) [address], [address] [place] [address] Potassium [Moles/Vol] 3.9 mmol/L Normal 3.5-5.0 [facility] Comment on above: Performed By: #### A CA, 5124-3, 75453-0, 77367-8, 34840-9 #### [facility] ([id number]) [address], [address] [place] [address] Protein [Mass/Vol] 6.2 g/dL Normal 6.0-8.0 [facility] Comment on above: Performed By: #### A CA, 5124-3, 85919-9, 21138-0, 83664-8 #### [facility] ([id number]) [address], [address] [place] [address] Sodium [Moles/Vol] 138 mmol/L Normal 134-146 [facility] Comment on above: Performed By: #### A CA, 5124-3, 05910-5, 11513-0, 10653-4 #### [facility] ([id number]) [address], [address] [place] [address] Urea nitrogen [Mass/Vol] 17 mg/dL Normal 5-23 [facility] Comment on above: Performed By: #### A CA, 5124-3, 19232-5, 07997-6, 98941-3 #### [facility] ([id number]) [address], [address] [place] [address] CBC AND AUTO DIFFon 10-06-19 24 ABSOLUTE BASOPHIL 0.1 X10E9/L Normal 0.0-0.2 [facility] Comment on above: Performed By: #### A CA, 5124-3, 69457-4, 32048-0, 85483-2 #### [facility] ([id number]) [address], [address] [place] [address] ABSOLUTE NEUTROPHIL 8.4 X10E9/L High 1.5-6.6 [facility] Comment on above: Performed By: #### A CA, 5124-3, 02798-6, 55391-8, 77385-1 #### [facility] ([id number]) [address], [address] [address] Basophils/100 WBC (Bld) 0.4 % Normal [facility] Comment on above: Performed By: #### A CA, 5124-3, 03248-0, 72261-4, 09089-4 #### [facility] ([id number]) [address], [address] [address] Eosinophils (Bld) [#/Vol] 0.2 10*3/uL Normal 0.0-0.4 [facility] Comment on above: Performed By: #### A CA, 5124-3, 90578-9, 00160-2, 83176-8 #### [facility] ([id number]) [address], [address] [address] Eosinophils/100 WBC (Bld) 1.5 % Normal [facility] Comment on above: Performed By: #### A PARUL, 5124-3, 28838-8, 84730-7, 66225-2 #### [facility] ([id number]) [address], [address] [address] Erythrocyte distribution width (RBC) [Ratio] 12.6 % Normal 11.5-15.0 [facility] Comment on above: Performed By: #### A CA, 5124-3, 08257-6, 95291-7, 82252-5 #### [facility] ([id number]) [address] [address] [place] [address] Hematocrit (Bld) [Volume fraction] 37.4 % Normal 35-47 [facility] Comment on above: Performed By: #### A CA, 5124-3, 73337-4, 73570-0, 91869-8 #### [facility] ([id number]) [address], [address] [place] [address] Hemoglobin (Bld) [Mass/Vol] 13.1 g/dL Normal 11.7-15.5 [facility] Comment on above: Performed By: #### A CA, 5124-3, 16214-4, 70046-6, 91870-5 #### [facility] ([id number]) [address], [address] [address] Lymphocytes (Bld) [#/Vol] 5.1 10*3/uL High 1.0-3.5 [facility] Comment on above: Performed By: #### A PARUL, 5124-3, 49457-3, 20802-2, 35235-4 #### [facility] ([id number]) [address], [facility] [address] [place] [address] Lymphocytes/100 WBC (Bld) 34.8 % Normal [facility] Comment on above: Performed By: #### A CA, 5124-3, 81306-2, 59995-9, 58253-6 #### [facility] ([id number]) [address], [facility] [address] [place] [address] MCH (RBC) [Entitic mass] 30.9 pg Normal 27-34 [facility] Comment on above: Performed By: #### A CA, 5124-3, 32742-6, 64825-1, 85660-7 #### [facility] ([id number]) [address], [facility] [address] [place] [address] MCHC (RBC) [Mass/Vol] 34.9 g/dL Normal 32-36 [facility] Comment on above: Performed By: #### A CA, 5124-3, 39307-7, 04974-1, 70223-6 #### [facility] ([id number]) [address], [facility] [address] [place] [address] MCV (RBC) [Entitic vol] 88 fL Normal 80-100 [facility] Comment on above: Performed By: #### A CA, 5124-3, 92869-9, 89267-0, 27963-5 #### [facility] ([id number]) [address], [facility] [address] [place] [address] Monocytes (Bld) [#/Vol] 0.8 10*3/uL Normal 0-0.9 [facility] Comment on above: Performed By: #### A CA, 5124-3, 95925-1, 89266-4, 33663-4 #### [facility] ([id number]) [address] [address] Monocytes/100 WBC (Bld) 5.7 % Normal [facility] Comment on above: Performed By: #### A CA, 5124-3, 45995-0, 83788-1, 64713-0 #### [facility] ([id number]) [address], [facility] [address] [place] [address] Neutrophils/100 WBC (Bld) 57.6 % Normal [facility] Comment on above: Performed By: #### A CA, 5124-3, 25358-0, 18990-5, 92026-3 #### [facility] ([id number]) [address], [address] [place] [address] Platelet mean volume (Bld) [Entitic vol] 7.9 fL Normal 7-12 [facility] Comment on above: Performed By: #### A CA, 5124-3, 83459-9, 83548-8, 26150-0 #### [facility] ([id number]) [address], [facility] [address] [place] [address] Platelets (Bld) [#/Vol] 398 10*3/uL Normal 150-450 [facility] Comment on above: Performed By: #### A CA, 5124-3, 30045-6, 48247-5, 78261-7 #### [facility] ([id number]) [address], [address] [place] [address] RBC COUNT 4.23 X10E12/L Normal 3.80-5.20 [facility] Comment on above: Performed By: #### A CA, 5124-3, 68108-6, 40891-5, 81328-5 #### [facility] ([id number]) [address], [address] [place] [address] WBC (Bld) [#/Vol] 14.7 10*3/uL High 4.0-11.0 [facility] Comment on above: Performed By: #### A PARUL, 5124-3, 09594-9, 40976-6, 99246-0 #### [facility] ([id number]) [address], [address] [place] [address] COMPREHENSIVE METABOLIC PANE Yasmani 10-06-2023 Albumin [Mass/Vol] 3.2 g/dL Normal 3.2-5.3 [facility] Comment on above: Performed By: #### A CA, 5124-3, 09539-4, 11613-2, 19032-7 #### [facility] ([id number]) [address], [address] [place] [address] ALP [Catalytic activity/Vol] 71 U/L Normal 39-130 [facility] Comment on above: Performed By: #### A CA, 5124-3, 79340-7, 19405-0, 35593-0 #### [facility] ([id number]) [address], [address] [place] [address] ALT [Catalytic activity/Vol] 12 U/L Normal 0-31 [facility] Comment on above: Performed By: #### A CA, 5124-3, 88518-0, 12430-5, 20908-1 #### [facility] ([id number]) [address], [address] [place] [address] Anion gap [Moles/Vol] 10 mmol/L Normal 5-15 [facility] Comment on above: Performed By: #### A CA, 5124-3, 27282-4, 86721-2, 06753-5 #### [facility] ([id number]) [address], [address] [place] [address] AST [Catalytic activity/Vol] 17 U/L Normal 0-41 [facility] Comment on above: Performed By: #### A CA, 5124-3, 06688-7, 30606-6, 08380-4 #### [facility] ([id number]) [address], [address] [place] [address] Bilirubin [Mass/Vol] 0.3 mg/dL Normal 0.3-1.2 [facility] Comment on above: Performed By: #### A CA, 5124-3, 37012-8, 90350-9, 87102-0 #### [facility] ([id number]) [address], [address] [place] [address] Calcium [Mass/Vol] 9.1 mg/dL Normal 8.5-10.5 [facility] Comment on above: Performed By: #### A CA, 5124-3, 27687-3, 32498-7, 14108-3 #### [facility] ([id number]) [address], [address] [place] [address] Chloride [Moles/Vol] 103 mmol/L Normal 98-109 [facility] Comment on above: Performed By: #### A CA, 5124-3, 23563-6, 46752-9, 75996-0 #### [facility] ([id number]) [address] [address] [place] [address] CO2 [Moles/Vol] 24 mmol/L Normal 22-32 [facility] Comment on above: Performed By: #### A PARUL, 5124-3, 93720-3, 63179-6, 60104-9 #### [facility] ([id number]) [address] [address] Creatinine [Mass/Vol] 0.77 mg/dL Normal 0.40-1.00 [facility] Comment on above: Result Comment: METH OD TRACEABLE TO IDMS STANDARD Performed By: #### A PARUL, 5124-3, 31982-6, 75261-0, 87448-2 #### [facility] ([id number]) [address] [address] eGFR (CKD-EPI) NON-RACE DEPENDENT >90 Normal >59 [facility] Comment on above: Result Comment: Reported eGFR is based on the CKD-EPI 2020 equation that does not use a race coefficient. Performed By: #### A PARUL, 5124-3, 79001-4, 16355-9, 05114-3 #### [facility] ([id number]) [address] [address] Glucose [Mass/Vol] 75 mg/dL Normal 65-99 [facility] Comment on above: Performed By: #### A PARUL, 5124-3, 06128-1, 01977-3, 79768-8 #### [facility] ([id number]) [address] [address] Potassium [Moles/Vol] 4.2 mmol/L Normal 3.5-5.0 [facility] Comment on above: Performed By: #### A CA, 5124-3, 02766-9, 40877-4, 15542-0 #### [facility] ([id number]) [address] [place] [address] Protein [Mass/Vol] 6.3 g/dL Normal 6.0-8.0 [facility] Comment on above: Performed By: #### A PARUL, 5124-3, 23771-2, 08652-7, 98960-5 #### [facility] ([id number]) [address], [facility] [address] [place] [address] Sodium [Moles/Vol] 137 mmol/L Normal 134-146 [facility] Comment on above: Performed By: #### A PARUL, 5124-3, 48822-8, 41360-9, 35603-6 #### [facility] ([id number]) [address], [facility] [address] [place] [address] Urea nitrogen [Mass/Vol] 15 mg/dL Normal 5-23 [facility] Comment on above: Performed By: #### A PARUL, 5124-3, 23333-7, 91929-7, 79079-3 #### [facility] ([id number]) [address], [address] [address] CBC AND AUTO DIFFon 10-05-19 24 ABSOLUTE BASOPHIL 0.1 X10E9/L Normal 0.0-0.2 [facility] Comment on above: Performed By: #### A PARUL, 5124-3, 09355-1, 56192-4, 62513-0 #### [facility] ([id number]) [address] [address] ABSOLUTE NEUTROPHIL 9.6 X10E9/L High 1.5-6.6 [facility] Comment on above: Performed By: #### A PARUL, 5124-3, 33606-9, 76942-9, 68206-2 #### [facility] ([id number]) [address] [address] Basophils/100 WBC (Bld) 0.4 % Normal [facility] Comment on above: Performed By: #### A CA, 5124-3, 87572-4, 21149-4, 78576-8 #### [facility] ([id number]) [address] [address] Eosinophils (Bld) [#/Vol] 0.2 10*3/uL Normal 0.0-0.4 [facility] Comment on above: Performed By: #### A CA, 5124-3, 51256-1, 37991-5, 56881-6 #### [facility] ([id number]) [address] [address] Eosinophils/100 WBC (Bld) 1.2 % Normal [facility] Comment on above: Performed By: #### A CA, 5124-3, 80959-9, 17329-7, 85070-5 #### [facility] ([id number]) [address] [address] Erythrocyte distribution width (RBC) [Ratio] 13.3 % Normal 11.5-15.0 [facility] Comment on above: Performed By: #### A CA, 5124-3, 37546-3, 54354-9, 34701-5 #### [facility] ([id number]) [address] [address] Hematocrit (Bld) [Volume fraction] 39.9 % Normal 35-47 [facility] Comment on above: Performed By: #### A CA, 5124-3, 97981-5, 11795-4, 38227-0 #### [facility] ([id number]) [address] [address] Hemoglobin (Bld) [Mass/Vol] 13.5 g/dL Normal 11.7-15.5 [facility] Comment on above: Performed By: #### A CA, 5124-3, 41653-4, 17039-8, 93226-1 #### [facility] ([id number]) [address], [facility] [address] [place] [address] Lymphocytes (Bld) [#/Vol] 4.3 10*3/uL High 1.0-3.5 [facility] Comment on above: Performed By: #### A CA, 5124-3, 41048-3, 15318-7, 52725-5 #### [facility] ([id number]) [address], [facility] [address] [place] [address] Lymphocytes/100 WBC (Bld) 28.8 % Normal [facility] Comment on above: Performed By: #### A CA, 5124-3, 95820-0, 67558-8, 79942-0 #### [facility] ([id number]) [address], [facility] [address] [place] [address] MCH (RBC) [Entitic mass] 30.0 pg Normal 27-34 [facility] Comment on above: Performed By: #### A CA, 5124-3, 07150-5, 59045-1, 86730-0 #### [facility] ([id number]) [address] [address] MCHC (RBC) [Mass/Vol] 34.0 g/dL Normal 32-36 [facility] Comment on above: Performed By: #### A CA, 5124-3, 83531-0, 22218-6, 90055-3 #### [facility] ([id number]) [address], [facility] [address] [place] [address] MCV (RBC) [Entitic vol] 88 fL Normal 80-100 [facility] Comment on above: Performed By: #### A CA, 5124-3, 52939-8, 57361-9, 12290-6 #### [facility] ([id number]) [address] [place] [address] Monocytes (Bld) [#/Vol] 0.8 10*3/uL Normal 0-0.9 [facility] Comment on above: Performed By: #### A CA, 5124-3, 09137-1, 30544-5, 75060-2 #### [facility] ([id number]) [address], [facility] [address] [place] [address] Monocytes/100 WBC (Bld) 5.1 % Normal [facility] Comment on above: Performed By: #### A CA, 5124-3, 16194-1, 85993-8, 30119-4 #### [facility] ([id number]) [address] [address] Neutrophils/100 WBC (Bld) 64.5 % Normal [facility] Comment on above: Performed By: #### A PARUL, 5124-3, 67126-3, 81446-1, 99043-1 #### [facility] ([id number]) [address] [address] Platelet mean volume (Bld) [Entitic vol] 7.9 fL Normal 7-12 [facility] Comment on above: Performed By: #### A PARUL, 5124-3, 01035-0, 53285-4, 94165-3 #### [facility] ([id number]) [address] [address] Platelets (Bld) [#/Vol] 420 10*3/uL Normal 150-450 [facility] Comment on above: Performed By: #### A CA, 5124-3, 66549-8, 75822-0, 96610-2 #### [facility] ([id number]) [address], [facility] [address] [place] [address] RBC COUNT 4.51 X10E12/L Normal 3.80-5.20 [facility] Comment on above: Performed By: #### A CA, 5124-3, 71167-2, 48230-0, 39029-5 #### [facility] ([id number]) [address] [place] [address] WBC (Bld) [#/Vol] 14.8 10*3/uL High 4.0-11.0 [facility] Comment on above: Performed By: #### A CA, 5124-3, 91181-0, 20263-4, 47432-8 #### [facility] ([id number]) [address] [place] [address] COMPREHENSIVE METABOLIC PANE Yasmani 10-05-2023 Albumin [Mass/Vol] 3.4 g/dL Normal 3.2-5.3 [facility] Comment on above: Performed By: #### A CA, 5124-3, 48858-6, 85921-6, 19848-8 #### [facility] ([id number]) [address] [place] [address] ALP [Catalytic activity/Vol] 79 U/L Normal 39-130 [facility] Comment on above: Performed By: #### A CA, 5124-3, 97422-5, 47715-5, 34219-6 #### [facility] ([id number]) [address], [facility] [address] [place] [address] ALT [Catalytic activity/Vol] 12 U/L Normal 0-31 [facility] Comment on above: Performed By: #### A CA, 5124-3, 92769-4, 75507-4, 01998-2 #### [facility] ([id number]) [address], [facility] [address] [place] [address] Anion gap [Moles/Vol] 10 mmol/L Normal 5-15 [facility] Comment on above: Performed By: #### A CA, 5124-3, 32393-2, 00622-3, 50297-1 #### [facility] ([id number]) [address] [place] [address] AST [Catalytic activity/Vol] 18 U/L Normal 0-41 [facility] Comment on above: Performed By: #### A CA, 5124-3, 42903-4, 06393-1, 41723-2 #### [facility] ([id number]) [address] [place] [address] Bilirubin [Mass/Vol] 0.2 mg/dL Low 0.3-1.2 [facility] Comment on above: Performed By: #### A CA, 5124-3, 43749-9, 15084-3, 47051-7 #### [facility] ([id number]) [address] [place] [address] Calcium [Mass/Vol] 9.2 mg/dL Normal 8.5-10.5 [facility] Comment on above: Performed By: #### A CA, 5124-3, 28938-7, 27761-5, 32036-3 #### [facility] ([id number]) [address], [address] [place] [address] Chloride [Moles/Vol] 104 mmol/L Normal 98-109 [facility] Comment on above: Performed By: #### A CA, 5124-3, 19215-8, 91402-8, 38498-5 #### [facility] ([id number]) [address], [address] [place] [address] CO2 [Moles/Vol] 23 mmol/L Normal 22-32 [facility] Comment on above: Performed By: #### A CA, 5124-3, 04512-0, 35128-5, 98859-6 #### [facility] ([id number]) [address] [place] [address] Creatinine [Mass/Vol] 0.78 mg/dL Normal 0.40-1.00 [facility] Comment on above: Result Comment: METH OD TRACEABLE TO IDMS STANDARD Performed By: #### A CA, 5124-3, 64889-5, 80215-7, 59166-7 #### [facility] ([id number]) [address], [address] [place] [address] eGFR (CKD-EPI) NON-RACE DEPENDENT >90 Normal >59 [facility] Comment on above: Result Comment: Reported eGFR is based on the CKD-EPI 2020 equation that does not use a race coefficient. Performed By: #### A PARUL, 5124-3, 32950-9, 61291-7, 85322-4 #### [facility] ([id number]) [address], [address] [place] [address] Glucose [Mass/Vol] 93 mg/dL Normal 65-99 [facility] Comment on above: Performed By: #### A PARUL, 5124-3, 99096-2, 50643-9, 46538-9 #### [facility] ([id number]) [address], [address] [place] [address] Potassium [Moles/Vol] 3.9 mmol/L Normal 3.5-5.0 [facility] [facility] Comment on above: Performed By: #### A PARUL, 5124-3, 12223-2, 29191-7, 83524-9 #### [facility] ([id number]) [address], [address] [place] [address] Protein [Mass/Vol] 6.5 g/dL Normal 6.0-8.0 [facility] Comment on above: Performed By: #### A CA, 5124-3, 28731-6, 95172-4, 11509-6 #### [facility] ([id number]) [address], [address] [place] [address] Sodium [Moles/Vol] 137 mmol/L Normal 134-146 [facility] Comment on above: Performed By: #### A CA, 5124-3, 62518-1, 52786-8, 40042-0 #### [facility] ([id number]) [address] [address] Urea nitrogen [Mass/Vol] 15 mg/dL Normal 5-23 [facility] Comment on above: Performed By: #### A CA, 5124-3, 11363-9, 36859-9, 21489-9 #### [facility] ([id number]) [address], [address] [address] CBC AND AUTO DIFFon 10-03- 24 ABSOLUTE BASOPHIL 0.1 X10E9/L Normal 0.0-0.2 [facility] Comment on above: Performed By: #### A PARUL, 5124-3, 05709-9, 58869-8, 91001-6 #### [facility] ([id number]) [address], [address] [address] ABSOLUTE NEUTROPHIL 8.9 X10E9/L High 1.5-6.6 [facility] Comment on above: Performed By: #### A PARUL, 5124-3, 28472-2, 96505-1, 55472-1 #### [facility] ([id number]) [address] [address] Basophils/100 WBC (Bld) 0.4 % Normal [facility] Comment on above: Performed By: #### A CA, 5124-3, 02780-8, 53119-1, 36300-5 #### [facility] ([id number]) [address] [address] Eosinophils (Bld) [#/Vol] 0.2 10*3/uL Normal 0.0-0.4 [facility] Comment on above: Performed By: #### A PARUL, 5124-3, 20570-7, 00552-3, 36880-7 #### [facility] ([id number]) [address] [address] [place] [address] Eosinophils/100 WBC (Bld) 1.5 % Normal [facility] Comment on above: Performed By: #### A CA, 5124-3, 95702-9, 57197-0, 15952-8 #### [facility] ([id number]) [address] [address] Erythrocyte distribution width (RBC) [Ratio] 12.8 % Normal 11.5-15.0 [facility] Comment on above: Performed By: #### A PARUL, 5124-3, 06393-9, 08884-0, 25737-6 #### [facility] ([id number]) [address] [address] Hematocrit (Bld) [Volume fraction] 39.6 % Normal 35-47 [facility] Comment on above: Performed By: #### A PARUL, 5124-3, 82629-5, 27513-3, 54675-2 #### [facility] ([id number]) [address] [address] [place] [address] Hemoglobin (Bld) [Mass/Vol] 13.1 g/dL Normal 11.7-15.5 [facility] Comment on above: Performed By: #### A PARUL, 5124-3, 33227-8, 06398-0, 06959-8 #### [facility] ([id number]) [address] [address] Lymphocytes (Bld) [#/Vol] 5.2 10*3/uL High 1.0-3.5 [facility] Comment on above: Performed By: #### A CA, 5124-3, 68687-4, 27749-1, 42543-7 #### [facility] ([id number]) [address] [address] Lymphocytes/100 WBC (Bld) 34.0 % Normal [facility] Comment on above: Performed By: #### A PARUL, 5124-3, 06384-8, 50722-5, 82620-2 #### [facility] ([id number]) [address] [address] MCH (RBC) [Entitic mass] 30.1 pg Normal 27-34 [facility] Comment on above: Performed By: #### A CA, 5124-3, 71870-5, 71873-3, 47462-9 #### [facility] ([id number]) [address] [address] MCHC (RBC) [Mass/Vol] 33.2 g/dL Normal 32-36 [facility] Comment on above: Performed By: #### A PARUL, 5124-3, 00642-0, 84512-2, 71379-3 #### [facility] ([id number]) [address] [address] MCV (RBC) [Entitic vol] 91 fL Normal 80-100 [facility] Comment on above: Performed By: #### A PARUL, 5124-3, 83136-6, 51821-4, 17633-7 #### [facility] ([id number]) [address] [address] Monocytes (Bld) [#/Vol] 0.8 10*3/uL Normal 0-0.9 [facility] Comment on above: Performed By: #### A PARUL, 5124-3, 57500-0, 86359-2, 35397-0 #### [facility] ([id number]) [address] [address] Monocytes/100 WBC (Bld) 5.3 % Normal [facility] Comment on above: Performed By: #### A PARUL, 5124-3, 74201-1, 82067-2, 07947-8 #### [facility] ([id number]) [address] [address] Neutrophils/100 WBC (Bld) 58.8 % Normal [facility] Comment on above: Performed By: #### A CA, 5124-3, 51066-2, 40776-3, 27286-6 #### [facility] ([id number]) [address] [address] Platelet mean volume (Bld) [Entitic vol] 8.3 fL Normal 7-12 [facility] Comment on above: Performed By: #### A CA, 5124-3, 12925-6, 72157-2, 87607-3 #### [facility] ([id number]) [address] [address] Platelets (Bld) [#/Vol] 386 10*3/uL Normal 150-450 [facility] Comment on above: Performed By: #### A CA, 5124-3, 13791-9, 95812-9, 52117-1 #### [facility] ([id number]) [address] [address] RBC COUNT 4.37 X10E12/L Normal 3.80-5.20 [facility] Comment on above: Performed By: #### A CA, 5124-3, 96747-6, 75668-2, 34133-7 #### [facility] ([id number]) [address] [address] [place] [address] WBC (Bld) [#/Vol] 15.2 10*3/uL High 4.0-11.0 [facility] Comment on above: Performed By: #### A CA, 5124-3, 65598-4, 00601-3, 23895-8 #### [facility] ([id number]) [address], [address] [place] [address] COMPREHENSIVE METABOLIC PANE Yasmani 10-04-2023 Albumin [Mass/Vol] 3.2 g/dL Normal 3.2-5.3 [facility] Comment on above: Performed By: #### A CA, 5124-3, 24612-6, 80630-7, 14042-8 #### [facility] ([id number]) [address], [address] [place] [address] ALP [Catalytic activity/Vol] 70 U/L Normal 39-130 [facility] Comment on above: Performed By: #### A CA, 5124-3, 34397-0, 21620-1, 17603-5 #### [facility] ([id number]) [address], [address] [place] [address] ALT [Catalytic activity/Vol] 12 U/L Normal 0-31 [facility] Comment on above: Performed By: #### A CA, 5124-3, 74366-2, 87173-7, 68424-6 #### [facility] ([id number]) [address], [address] [place] [address] Anion gap [Moles/Vol] 10 mmol/L Normal 5-15 [facility] Comment on above: Performed By: #### A CA, 5124-3, 75608-9, 67939-0, 94178-7 #### [facility] ([id number]) [address], [address] [place] [address] AST [Catalytic activity/Vol] 19 U/L Normal 0-41 [facility] Comment on above: Performed By: #### A CA, 5124-3, 20877-1, 57609-3, 71589-9 #### [facility] ([id number]) [address], [address] [place] [address] Bilirubin [Mass/Vol] 0.2 mg/dL Low 0.3-1.2 [facility] Comment on above: Performed By: #### A CA, 5124-3, 96192-3, 72169-8, 88645-9 #### [facility] ([id number]) [address], [facility] [address] [place] [address] Calcium [Mass/Vol] 9.0 mg/dL Normal 8.5-10.5 [facility] Comment on above: Performed By: #### A CA, 5124-3, 41150-3, 31630-2, 20078-1 #### [facility] ([id number]) [address] [address] Chloride [Moles/Vol] 105 mmol/L Normal 98-109 [facility] Comment on above: Performed By: #### A CA, 5124-3, 31573-5, 47450-8, 60686-5 #### [facility] ([id number]) [address], [facility] [address] [place] [address] CO2 [Moles/Vol] 24 mmol/L Normal 22-32 [facility] Comment on above: Performed By: #### A CA, 5124-3, 97536-1, 44146-7, 76303-2 #### [facility] ([id number]) [address], [facility] [address] [place] [address] Creatinine [Mass/Vol] 0.77 mg/dL Normal 0.40-1.00 [facility] Comment on above: Result Comment: METH OD TRACEABLE TO IDMS STANDARD Performed By: #### A CA, 5124-3, 27685-8, 27604-2, 63056-1 #### [facility] ([id number]) [address], [facility] [address] [place] [address] eGFR (CKD-EPI) NON-RACE DEPENDENT >90 Normal >59 [facility] Comment on above: Result Comment: Reported eGFR is based on the CKD-EPI 2020 equation that does not use a race coefficient. Performed By: #### A CA, 5124-3, 04380-6, 48471-6, 87994-6 #### [facility] ([id number]) [address], [address] [place] [address] Glucose [Mass/Vol] 71 mg/dL Normal 65-99 [facility] Comment on above: Performed By: #### A CA, 5124-3, 13463-5, 41576-7, 75324-5 #### [facility] ([id number]) [address], [address] [place] [address] Potassium [Moles/Vol] 4.0 mmol/L Normal 3.5-5.0 [facility] Comment on above: Performed By: #### A CA, 5124-3, 97169-1, 87228-6, 08224-8 #### [facility] ([id number]) [address], [address] [place] [address] Protein [Mass/Vol] 6.3 g/dL Normal 6.0-8.0 [facility] Comment on above: Performed By: #### A CA, 5124-3, 62725-6, 56842-9, 32878-4 #### [facility] ([id number]) [address] [place] [address] Sodium [Moles/Vol] 139 mmol/L Normal 134-146 [facility] Comment on above: Performed By: #### A CA, 5124-3, 02164-6, 18324-6, 98726-8 #### [facility] ([id number]) [address], [address] [place] [address] Urea nitrogen [Mass/Vol] 15 mg/dL Normal 5-23 [facility] Comment on above: Performed By: #### A CA, 5124-3, 98680-6, 05676-4, 51626-9 #### [facility] ([id number]) [address], [facility] [address] [place] [address] CBC AND AUTO DIFFon 10-03-19 ABSOLUTE BASOPHIL 0.1 X10E9/L Normal 0.0-0.2 [facility] Comment on above: Performed By: #### A CA, 5124-3, 37181-8, 16839-3, 80487-3 #### [facility] ([id number]) [address] [address] ABSOLUTE NEUTROPHIL 9.5 X10E9/L High 1.5-6.6 [facility] Comment on above: Performed By: #### A PARUL, 5124-3, 49910-2, 55156-6, 93990-8 #### [facility] ([id number]) [address] [address] Basophils/100 WBC (Bld) 0.4 % Normal [facility] Comment on above: Performed By: #### A PARUL, 5124-3, 84383-3, 58012-6, 20660-0 #### [facility] ([id number]) [address] [address] Eosinophils (Bld) [#/Vol] 0.1 10*3/uL Normal 0.0-0.4 [facility] Comment on above: Performed By: #### A PARUL, 5124-3, 09813-3, 19633-0, 03163-3 #### [facility] ([id number]) [address] [address] Eosinophils/100 WBC (Bld) 0.8 % Normal [facility] Comment on above: Performed By: #### A CA, 5124-3, 86038-9, 88476-6, 30914-7 #### [facility] ([id number]) [address], [facility] [address] [place] [address] Erythrocyte distribution width (RBC) [Ratio] 12.9 % Normal 11.5-15.0 [facility] Comment on above: Performed By: #### A PARUL, 5124-3, 29631-8, 68445-9, 10431-8 #### [facility] ([id number]) [address], [address] [place] [address] Hematocrit (Bld) [Volume fraction] 39.2 % Normal 35-47 [facility] Comment on above: Performed By: #### A PARUL, 5124-3, 96791-4, 24332-7, 90446-8 #### [facility] ([id number]) [address], [facility] [address] [place] [address] Hemoglobin (Bld) [Mass/Vol] 13.0 g/dL Normal 11.7-15.5 [facility] Comment on above: Performed By: #### A PARUL, 5124-3, 49944-7, 18425-9, 13351-4 #### [facility] ([id number]) [address], [address] [place] [address] Lymphocytes (Bld) [#/Vol] 4.4 10*3/uL High 1.0-3.5 [facility] Comment on above: Performed By: #### A PARUL, 5124-3, 93791-5, 30318-1, 07138-3 #### [facility] ([id number]) [address], [address] [place] [address] Lymphocytes/100 WBC (Bld) 29.4 % Normal [facility] Comment on above: Performed By: #### A PARUL, 5124-3, 89852-7, 58944-1, 30539-3 #### [facility] ([id number]) [address], [address] [place] [address] MCH (RBC) [Entitic mass] 30.1 pg Normal 27-34 [facility] Comment on above: Performed By: #### A CA, 5124-3, 61605-8, 60950-4, 54589-1 #### [facility] ([id number]) [address] [address] MCHC (RBC) [Mass/Vol] 33.2 g/dL Normal 32-36 [facility] Comment on above: Performed By: #### A CA, 5124-3, 00859-4, 78514-8, 57143-8 #### [facility] ([id number]) [address] [address] MCV (RBC) [Entitic vol] 91 fL Normal 80-100 [facility] Comment on above: Performed By: #### A CA, 5124-3, 65130-1, 29807-7, 49475-4 #### [facility] ([id number]) [address] [address] Monocytes (Bld) [#/Vol] 0.9 10*3/uL Normal 0-0.9 [facility] Comment on above: Performed By: #### A CA, 5124-3, 03428-4, 19055-6, 35434-1 #### [facility] ([id number]) [address] [address] Monocytes/100 WBC (Bld) 6.2 % Normal [facility] Comment on above: Performed By: #### A CA, 5124-3, 23715-6, 88694-9, 94131-9 #### [facility] ([id number]) [address] [address] Neutrophils/100 WBC (Bld) 63.2 % Normal [facility] Comment on above: Performed By: #### A CA, 5124-3, 77069-7, 64153-8, 77869-1 #### [facility] ([id number]) [address], [address] [place] [address] Platelet mean volume (Bld) [Entitic vol] 8.5 fL Normal 7-12 [facility] Comment on above: Performed By: #### A PARUL, 5124-3, 98309-9, 90097-9, 16810-5 #### [facility] ([id number]) [address] [address] Platelets (Bld) [#/Vol] 359 10*3/uL Normal 150-450 [facility] Comment on above: Performed By: #### A PARUL, 5124-3, 60640-1, 22707-5, 14875-7 #### [facility] ([id number]) [address] [address] RBC COUNT 4.34 X10E12/L Normal 3.80-5.20 [facility] Comment on above: Performed By: #### A PARUL, 5124-3, 57494-9, 97580-3, 16915-8 #### [facility] ([id number]) [address] [address] WBC (Bld) [#/Vol] 14.9 10*3/uL High 4.0-11.0 [facility] Comment on above: Performed By: #### A PARUL, 5124-3, 50652-1, 48654-6, 90951-2 #### [facility] ([id number]) [address] [address] COMPREHENSIVE METABOLIC PANE Yasmani 10-03-2023 Albumin [Mass/Vol] 3.3 g/dL Normal 3.2-5.3 [facility] Comment on above: Performed By: #### A PARUL, 5124-3, 20341-9, 11858-2, 39264-0 #### [facility] ([id number]) [address] [address] [place] [address] ALP [Catalytic activity/Vol] 70 U/L Normal 39-130 [facility] Comment on above: Performed By: #### A CA, 5124-3, 55184-6, 86415-9, 75642-1 #### [facility] ([id number]) [address] [place] [address] ALT [Catalytic activity/Vol] 10 U/L Normal 0-31 [facility] Comment on above: Performed By: #### A CA, 5124-3, 99426-3, 73321-9, 80291-0 #### [facility] ([id number]) [address], [facility] [address] [place] [address] Anion gap [Moles/Vol] 12 mmol/L Normal 5-15 [facility] Comment on above: Performed By: #### A CA, 5124-3, 96528-3, 64904-0, 78616-7 #### [facility] ([id number]) [address], [address] [place] [address] AST [Catalytic activity/Vol] 15 U/L Normal 0-41 [facility] Comment on above: Performed By: #### A CA, 5124-3, 14560-3, 93881-6, 05608-3 #### [facility] ([id number]) [address], [facility] [address] [place] [address] Bilirubin [Mass/Vol] 0.3 mg/dL Normal 0.3-1.2 [facility] Comment on above: Performed By: #### A CA, 5124-3, 32418-0, 08627-8, 49795-4 #### [facility] ([id number]) [address], [facility] [address] [place] [address] Calcium [Mass/Vol] 9.1 mg/dL Normal 8.5-10.5 [facility] Comment on above: Performed By: #### A CA, 5124-3, 82228-5, 38333-7, 46433-7 #### [facility] ([id number]) [address] [place] [address] Chloride [Moles/Vol] 103 mmol/L Normal 98-109 [facility] Comment on above: Performed By: #### A CA, 5124-3, 62819-6, 31345-0, 53401-9 #### [facility] ([id number]) [address], [facility] [address] [place] [address] CO2 [Moles/Vol] 23 mmol/L Normal 22-32 [facility] Comment on above: Performed By: #### A CA, 5124-3, 94849-7, 95553-2, 52346-0 #### [facility] ([id number]) [address] [address] Creatinine [Mass/Vol] 0.83 mg/dL Normal 0.40-1.00 [facility] Comment on above: Result Comment: METH OD TRACEABLE TO IDMS STANDARD Performed By: #### A CA, 5124-3, 20472-7, 73712-8, 53758-2 #### [facility] ([id number]) [address] [address] eGFR (CKD-EPI) NON-RACE DEPENDENT >90 Normal >59 [facility] Comment on above: Result Comment: Reported eGFR is based on the CKD-EPI 1 equation that does not use a race coefficient. Performed By: #### A CA, 5124-3, 24119-2, 26773-0, 01398-3 #### [facility] ([id number]) [address] [address] Glucose [Mass/Vol] 68 mg/dL Normal 65-99 [facility] Comment on above: Performed By: #### A CA, 5124-3, 28098-7, 51476-4, 00180-9 #### [facility] ([id number]) [address] [place] [address] Potassium [Moles/Vol] 3.8 mmol/L Normal 3.5-5.0 [facility] Comment on above: Performed By: #### A CA, 5124-3, 62492-3, 79315-4, 31422-3 #### [facility] ([id number]) [address], [address] [place] [address] Protein [Mass/Vol] 6.4 g/dL Normal 6.0-8.0 [facility] Comment on above: Performed By: #### A PARUL, 5124-3, 48328-4, 37330-0, 49321-1 #### [facility] ([id number]) [address] [place] [address] Sodium [Moles/Vol] 138 mmol/L Normal 134-146 [facility] Comment on above: Performed By: #### A CA, 5124-3, 59812-0, 42458-9, 46620-6 #### [facility] ([id number]) [address] [address] Urea nitrogen [Mass/Vol] 18 mg/dL Normal 5-23 [facility] Comment on above: Performed By: #### A CA, 5124-3, 78386-2, 35323-2, 47026-7 #### [facility] ([id number]) [address], [address] [place] [address] CBC AND AUTO DIFFon 10-02-19 24 ABSOLUTE BASOPHIL 0.0 X10E9/L Normal 0.0-0.2 [facility] Comment on above: Performed By: #### A CA, 5124-3, 40067-3, 06964-1, 35470-2 #### [facility] ([id number]) [address] [place] [address] ABSOLUTE NEUTROPHIL 12.3 X10E9/L High 1.5-6.6 [facility] Comment on above: Performed By: #### A PARUL, 5124-3, 72324-0, 57894-6, 47412-6 #### [facility] ([id number]) [address] [place] [address] Basophils/100 WBC (Bld) 0.3 % Normal [facility] Comment on above: Performed By: #### A CA, 5124-3, 52527-3, 77274-6, 75527-2 #### [facility] ([id number]) [address], [facility] [address] [place] [address] Eosinophils (Bld) [#/Vol] 0.1 10*3/uL Normal 0.0-0.4 [facility] Comment on above: Performed By: #### A PARUL, 5124-3, 72879-2, 22747-3, 62810-3 #### [facility] ([id number]) [address] [place] [address] Eosinophils/100 WBC (Bld) 0.7 % Normal [facility] Comment on above: Performed By: #### A PARUL, 5124-3, 84096-1, 40976-0, 30483-0 #### [facility] ([id number]) [address], [facility] [address] [place] [address] Erythrocyte distribution width (RBC) [Ratio] 13.3 % Normal 11.5-15.0 [facility] Comment on above: Performed By: #### A PARUL, 5124-3, 76352-2, 35762-8, 83647-5 #### [facility] ([id number]) [address] [place] [address] Hematocrit (Bld) [Volume fraction] 40.3 % Normal 35-47 [facility] Comment on above: Performed By: #### A PARUL, 5124-3, 19764-9, 09478-4, 46664-3 #### [facility] ([id number]) [address], [address] [place] [address] Hemoglobin (Bld) [Mass/Vol] 13.4 g/dL Normal 11.7-15.5 [facility] Comment on above: Performed By: #### A CA, 5124-3, 22333-1, 19928-0, 52792-2 #### [facility] ([id number]) [address], [address] [place] [address] Lymphocytes (Bld) [#/Vol] 3.0 10*3/uL Normal 1.0-3.5 [facility] Comment on above: Performed By: #### A CA, 5124-3, 53832-8, 75214-8, 28509-7 #### [facility] ([id number]) [address], [facility] [address] [place] [address] Lymphocytes/100 WBC (Bld) 18.3 % Normal [facility] Comment on above: Performed By: #### A CA, 5124-3, 39480-1, 35257-8, 53869-7 #### [facility] ([id number]) [address], [facility] [address] [place] [address] MCH (RBC) [Entitic mass] 30.1 pg Normal 27-34 [facility] Comment on above: Performed By: #### A CA, 5124-3, 93497-3, 31131-9, 05342-0 #### [facility] ([id number]) [address], [address] [place] [address] MCHC (RBC) [Mass/Vol] 33.3 g/dL Normal 32-36 [facility] Comment on above: Performed By: #### A CA, 5124-3, 20083-2, 08148-1, 28040-3 #### [facility] ([id number]) [address] [address] [place] [address] MCV (RBC) [Entitic vol] 90 fL Normal 80-100 [facility] Comment on above: Performed By: #### A CA, 5124-3, 85484-7, 94009-7, 04155-9 #### [facility] ([id number]) [address], [facility] [address] [place] [address] Monocytes (Bld) [#/Vol] 1.1 10*3/uL High 0-0.9 [facility] Comment on above: Performed By: #### A CA, 5124-3, 50012-6, 11417-9, 72340-3 #### [facility] ([id number]) [address], [facility] [address] [place] [address] Monocytes/100 WBC (Bld) 6.5 % Normal [facility] Comment on above: Performed By: #### A CA, 5124-3, 92820-1, 54655-0, 53543-0 #### [facility] ([id number]) [address], [facility] [address] [place] [address] Neutrophils/100 WBC (Bld) 74.2 % Normal [facility] Comment on above: Performed By: #### A CA, 5124-3, 35862-8, 13550-4, 04845-7 #### [facility] ([id number]) [address], [facility] [address] [place] [address] Platelet mean volume (Bld) [Entitic vol] 8.1 fL Normal 7-12 [facility] Comment on above: Performed By: #### A CA, 5124-3, 56983-1, 61641-0, 94478-9 #### [facility] ([id number]) [address] [place] [address] Platelets (Bld) [#/Vol] 353 10*3/uL Normal 150-450 [facility] Comment on above: Performed By: #### A CA, 5124-3, 32531-1, 86019-5, 14169-5 #### [facility] ([id number]) [address] [place] [address] RBC COUNT 4.46 X10E12/L Normal 3.80-5.20 [facility] Comment on above: Performed By: #### A CA, 5124-3, 44590-9, 96653-7, 72387-2 #### [facility] ([id number]) [address] [place] [address] WBC (Bld) [#/Vol] 16.6 10*3/uL High 4.0-11.0 [facility] Comment on above: Performed By: #### A CA, 5124-3, 88637-9, 50608-7, 55049-9 #### [facility] ([id number]) [address] [place] [address] COMPREHENSIVE METABOLIC PANE Yasmani 10-02-2023 Albumin [Mass/Vol] 3.2 g/dL Normal 3.2-5.3 [facility] Comment on above: Performed By: #### A CA, 5124-3, 32345-2, 13149-0, 24351-2 #### [facility] ([id number]) [address] [place] [address] ALP [Catalytic activity/Vol] 68 U/L Normal 39-130 [facility] Comment on above: Performed By: #### A CA, 5124-3, 59981-2, 20603-6, 51309-7 #### [facility] ([id number]) [address] [place] [address] ALT [Catalytic activity/Vol] 12 U/L Normal 0-31 [facility] Comment on above: Performed By: #### A CA, 5124-3, 30627-4, 92826-4, 26697-6 #### [facility] ([id number]) [address] [place] [address] Anion gap [Moles/Vol] 12 mmol/L Normal 5-15 [facility] Comment on above: Performed By: #### A CA, 5124-3, 43807-6, 56259-2, 20883-6 #### [facility] ([id number]) [address] [place] [address] AST [Catalytic activity/Vol] 18 U/L Normal 0-41 [facility] Comment on above: Performed By: #### A CA, 5124-3, 76323-0, 82763-3, 64958-9 #### [facility] ([id number]) [address] [place] [address] Bilirubin [Mass/Vol] 0.3 mg/dL Normal 0.3-1.2 [facility] Comment on above: Performed By: #### A CA, 5124-3, 65568-9, 06095-7, 49066-7 #### [facility] ([id number]) [address] [place] [address] Calcium [Mass/Vol] 7.9 mg/dL Low 8.5-10.5 [facility] Comment on above: Performed By: #### A CA, 5124-3, 15175-4, 09348-4, 50267-2 #### [facility] ([id number]) [address] [place] [address] Chloride [Moles/Vol] 101 mmol/L Normal 98-109 [facility] Comment on above: Performed By: #### A CA, 5124-3, 87677-5, 24390-4, 68014-5 #### [facility] ([id number]) [address] [place] [address] CO2 [Moles/Vol] 23 mmol/L Normal 22-32 [facility] Comment on above: Performed By: #### A PARUL, 5124-3, 47036-3, 28798-5, 36161-9 #### [facility] ([id number]) [address], [facility] [address] [place] [address] Creatinine [Mass/Vol] 0.74 mg/dL Normal 0.40-1.00 [facility] Comment on above: Result Comment: METH OD TRACEABLE TO IDMS STANDARD Performed By: #### A PARUL, 5124-3, 45109-2, 60056-8, 62635-9 #### [facility] ([id number]) [address], [address] [address] eGFR (CKD-EPI) NON-RACE DEPENDENT >90 Normal >59 [facility] Comment on above: Result Comment: Reported eGFR is based on the CKD-EPI 2020 equation that does not use a race coefficient. Performed By: #### A PARUL, 5124-3, 73717-1, 83196-5, 37985-4 #### [facility] ([id number]) [address], [facility] [address] [place] [address] Glucose [Mass/Vol] 83 mg/dL Normal 65-99 [facility] Comment on above: Performed By: #### A PARUL, 5124-3, 81426-5, 34729-8, 71132-0 #### [facility] ([id number]) [address] [address] Potassium [Moles/Vol] 4.1 mmol/L Normal 3.5-5.0 [facility] Comment on above: Performed By: #### A CA, 5124-3, 84924-2, 39316-1, 12772-0 #### [facility] ([id number]) [address], [facility] [address] [place] [address] Protein [Mass/Vol] 6.4 g/dL Normal 6.0-8.0 [facility] Comment on above: Performed By: #### A CA, 5124-3, 10575-5, 49153-1, 10156-4 #### [facility] ([id number]) [address] [place] [address] Sodium [Moles/Vol] 136 mmol/L Normal 134-146 [facility] Comment on above: Performed By: #### A CA, 5124-3, 91535-9, 09635-3, 97974-6 #### [facility] ([id number]) [address] [address] Urea nitrogen [Mass/Vol] 13 mg/dL Normal 5-23 [facility] Comment on above: Performed By: #### A PARUL, 5124-3, 52798-6, 76824-8, 48067-3 #### [facility] ([id number]) [address], [address] [place] [address] CBC AND AUTO DIFFon 10-01-19 24 ABSOLUTE BASOPHIL 0.1 X10E9/L Normal 0.0-0.2 [facility] Comment on above: Performed By: #### A PARUL, 5124-3, 20137-3, 78107-2, 51543-5 #### [facility] ([id number]) [address], [address] [address] ABSOLUTE NEUTROPHIL 11.2 X10E9/L High 1.5-6.6 [facility] Comment on above: Performed By: #### A CA, 5124-3, 42053-5, 70275-5, 67012-4 #### [facility] ([id number]) [address] [address] Basophils/100 WBC (Bld) 0.6 % Normal [facility] Comment on above: Performed By: #### A PARUL, 5124-3, 31828-7, 88666-1, 70660-1 #### [facility] ([id number]) [address], [facility] [address] [place] [address] Eosinophils (Bld) [#/Vol] 0.1 10*3/uL Normal 0.0-0.4 [facility] Comment on above: Performed By: #### A CA, 5124-3, 06935-2, 36687-2, 00752-1 #### [facility] ([id number]) [address], [facility] [address] [place] [address] Eosinophils/100 WBC (Bld) 0.5 % Normal [facility] Comment on above: Performed By: #### A CA, 5124-3, 59489-8, 96017-0, 81075-5 #### [facility] ([id number]) [address] [address] Erythrocyte distribution width (RBC) [Ratio] 13.0 % Normal 11.5-15.0 [facility] Comment on above: Performed By: #### A CA, 5124-3, 52367-2, 90991-1, 69615-6 #### [facility] ([id number]) [address] [address] Hematocrit (Bld) [Volume fraction] 37.4 % Normal 35-47 [facility] Comment on above: Performed By: #### A CA, 5124-3, 46150-4, 65003-6, 58854-4 #### [facility] ([id number]) [address] [address] [place] [address] Hemoglobin (Bld) [Mass/Vol] 13.0 g/dL Normal 11.7-15.5 [facility] Comment on above: Performed By: #### A CA, 5124-3, 69850-8, 44689-4, 82625-8 #### [facility] ([id number]) [address] [address] Lymphocytes (Bld) [#/Vol] 3.4 10*3/uL Normal 1.0-3.5 [facility] Comment on above: Performed By: #### A CA, 5124-3, 62203-6, 71533-8, 26061-5 #### [facility] ([id number]) [address] [address] Lymphocytes/100 WBC (Bld) 21.5 % Normal [facility] Comment on above: Performed By: #### A PARUL, 5124-3, 72077-0, 76787-6, 97412-4 #### [facility] ([id number]) [address] [address] MCH (RBC) [Entitic mass] 30.8 pg Normal 27-34 [facility] Comment on above: Performed By: #### A PARUL, 5124-3, 62147-3, 28552-2, 47728-2 #### [facility] ([id number]) [address] [address] MCHC (RBC) [Mass/Vol] 34.9 g/dL Normal 32-36 [facility] Comment on above: Performed By: #### A PARUL, 5124-3, 96389-3, 58159-8, 62217-1 #### [facility] ([id number]) [address] [address] MCV (RBC) [Entitic vol] 88 fL Normal 80-100 [facility] Comment on above: Performed By: #### A CA, 5124-3, 53780-4, 76823-9, 42863-6 #### [facility] ([id number]) [address] [address] Monocytes (Bld) [#/Vol] 0.8 10*3/uL Normal 0-0.9 [facility] Comment on above: Performed By: #### A CA, 5124-3, 66242-4, 76220-6, 87672-5 #### [facility] ([id number]) [address] [address] Monocytes/100 WBC (Bld) 5.2 % Normal [facility] Comment on above: Performed By: #### A CA, 5124-3, 65238-1, 35515-4, 21489-0 #### [facility] ([id number]) [address] [address] Neutrophils/100 WBC (Bld) 72.2 % Normal [facility] Comment on above: Performed By: #### A CA, 5124-3, 02254-0, 57135-7, 57326-8 #### [facility] ([id number]) [address] [address] Platelet mean volume (Bld) [Entitic vol] 8.0 fL Normal 7-12 [facility] Comment on above: Performed By: #### A CA, 5124-3, 15793-1, 82566-8, 15112-5 #### [facility] ([id number]) [address] [address] Platelets (Bld) [#/Vol] 354 10*3/uL Normal 150-450 [facility] Comment on above: Performed By: #### A CA, 5124-3, 14493-4, 19813-8, 25657-7 #### [facility] ([id number]) [address] [address] RBC COUNT 4.24 X10E12/L Normal 3.80-5.20 [facility] Comment on above: Performed By: #### A CA, 5124-3, 64099-6, 34462-4, 08431-4 #### [facility] ([id number]) [address] [place] [address] WBC (Bld) [#/Vol] 15.6 10*3/uL High 4.0-11.0 [facility] Comment on above: Performed By: #### A CA, 5124-3, 79367-1, 71871-7, 67122-8 #### [facility] ([id number]) [address] [place] [address] ABSOLUTE BASOPHIL 0.1 X10E9/L Normal 0.0-0.2 [facility] Comment on above: Performed By: #### A CA, 5124-3, 89030-7, 67369-6, 90260-7 #### [facility] ([id number]) [address] [address] [place] [address] ABSOLUTE NEUTROPHIL 11.9 X10E9/L High 1.5-6.6 [facility] Comment on above: Performed By: #### A CA, 5124-3, 86825-5, 35870-8, 95136-2 #### [facility] ([id number]) [address] [address] [place] [address] Basophils/100 WBC (Bld) 0.4 % Normal [facility] Comment on above: Performed By: #### A CA, 5124-3, 52334-9, 27373-5, 25952-7 #### [facility] ([id number]) [address] [place] [address] Eosinophils (Bld) [#/Vol] 0.1 10*3/uL Normal 0.0-0.4 [facility] Comment on above: Performed By: #### A CA, 5124-3, 24827-6, 00252-6, 19510-8 #### [facility] ([id number]) [address] [place] [address] Eosinophils/100 WBC (Bld) 0.5 % Normal [facility] Comment on above: Performed By: #### A PARUL, 5124-3, 34718-3, 05457-9, 13446-3 #### [facility] ([id number]) [address], [facility] [address] [place] [address] Erythrocyte distribution width (RBC) [Ratio] 13.2 % Normal 11.5-15.0 [facility] Comment on above: Performed By: #### A CA, 5124-3, 40573-0, 60566-5, 74162-8 #### [facility] ([id number]) [address] [address] [place] [address] Hematocrit (Bld) [Volume fraction] 38.3 % Normal 35-47 [facility] Comment on above: Performed By: #### A APRUL, 5124-3, 69806-4, 20767-6, 45309-7 #### [facility] ([id number]) [address], [facility] [address] [place] [address] Hemoglobin (Bld) [Mass/Vol] 12.9 g/dL Normal 11.7-15.5 [facility] Comment on above: Performed By: #### A PARUL, 5124-3, 14900-2, 13587-9, 38470-8 #### [facility] ([id number]) [address] [address] Lymphocytes (Bld) [#/Vol] 3.8 10*3/uL High 1.0-3.5 [facility] Comment on above: Performed By: #### A PARUL, 5124-3, 50611-0, 95979-2, 25554-0 #### [facility] ([id number]) [address] [address] [place] [address] Lymphocytes/100 WBC (Bld) 22.2 % Normal [facility] Comment on above: Performed By: #### A CA, 5124-3, 56110-7, 57151-2, 10793-3 #### [facility] ([id number]) [address], [facility] [address] [place] [address] MCH (RBC) [Entitic mass] 30.4 pg Normal 27-34 [facility] Comment on above: Performed By: #### A CA, 5124-3, 18793-3, 80296-2, 10678-1 #### [facility] ([id number]) [address], [facility] [address] [place] [address] MCHC (RBC) [Mass/Vol] 33.8 g/dL Normal 32-36 [facility] Comment on above: Performed By: #### A CA, 5124-3, 22364-0, 76455-9, 73258-6 #### [facility] ([id number]) [address], [facility] [address] [place] [address] MCV (RBC) [Entitic vol] 90 fL Normal 80-100 [facility] Comment on above: Performed By: #### A CA, 5124-3, 73267-0, 65147-9, 24133-8 #### [facility] ([id number]) [address], [facility] [address] [place] [address] Monocytes (Bld) [#/Vol] 1.1 10*3/uL High 0-0.9 [facility] Comment on above: Performed By: #### A CA, 5124-3, 79941-4, 67781-1, 60339-4 #### [facility] ([id number]) [address] [address] [place] [address] Monocytes/100 WBC (Bld) 6.5 % Normal [facility] Comment on above: Performed By: #### A CA, 5124-3, 47757-1, 40522-0, 80006-7 #### [facility] ([id number]) [address], [facility] [address] [place] [address] Neutrophils/100 WBC (Bld) 70.4 % Normal [facility] Comment on above: Performed By: #### A CA, 5124-3, 76072-6, 11744-4, 63475-6 #### [facility] ([id number]) [address], [facility] [address] [place] [address] Platelet mean volume (Bld) [Entitic vol] 8.2 fL Normal 7-12 [facility] Comment on above: Performed By: #### A PARUL, 5124-3, 96382-3, 78286-7, 43217-0 #### [facility] ([id number]) [address] [address] Platelets (Bld) [#/Vol] 336 10*3/uL Normal 150-450 [facility] Comment on above: Performed By: #### A PARUL, 5124-3, 69387-4, 91819-3, 67078-4 #### [facility] ([id number]) [address] [address] RBC COUNT 4.26 X10E12/L Normal 3.80-5.20 [facility] Comment on above: Performed By: #### A PARUL, 5124-3, 33883-5, 02800-1, 39029-9 #### [facility] ([id number]) [address] [address] WBC (Bld) [#/Vol] 17.0 10*3/uL High 4.0-11.0 [facility] Comment on above: Performed By: #### A CA, 5124-3, 77926-9, 85572-8, 11413-1 #### [facility] ([id number]) [address], [facility] [address] [place] [address] ABSOLUTE BASOPHIL 0.0 X10E9/L Normal 0.0-0.2 [facility] Comment on above: Performed By: #### A CA, 5124-3, 90355-1, 82567-5, 21439-3 #### [facility] ([id number]) [address] [place] [address] ABSOLUTE NEUTROPHIL 11.5 X10E9/L High 1.5-6.6 [facility] Comment on above: Performed By: #### A CA, 5124-3, 39462-5, 33065-8, 54450-4 #### [facility] ([id number]) [address], [facility] [address] [place] [address] Basophils/100 WBC (Bld) 0.3 % Normal [facility] Comment on above: Performed By: #### A PARUL, 5124-3, 23785-3, 58108-6, 25568-7 #### [facility] ([id number]) [address] [place] [address] Eosinophils (Bld) [#/Vol] 0.0 10*3/uL Normal 0.0-0.4 [facility] Comment on above: Performed By: #### A PARUL, 5124-3, 43101-8, 40000-9, 81544-4 #### [facility] ([id number]) [address] [place] [address] Eosinophils/100 WBC (Bld) 0.3 % Normal [facility] Comment on above: Performed By: #### A CA, 5124-3, 64278-8, 08861-3, 47597-8 #### [facility] ([id number]) [address] [place] [address] Erythrocyte distribution width (RBC) [Ratio] 13.2 % Normal 11.5-15.0 [facility] Comment on above: Performed By: #### A PARUL, 5124-3, 49097-8, 26644-9, 04957-0 #### [facility] ([id number]) [address] [address] Hematocrit (Bld) [Volume fraction] 38.6 % Normal 35-47 [facility] Comment on above: Performed By: #### A CA, 5124-3, 03608-7, 27902-8, 90830-4 #### [facility] ([id number]) [address] [address] Hemoglobin (Bld) [Mass/Vol] 13.2 g/dL Normal 11.7-15.5 [facility] Comment on above: Performed By: #### A CA, 5124-3, 89920-4, 51682-1, 66993-3 #### [facility] ([id number]) [address] [address] Lymphocytes (Bld) [#/Vol] 4.2 10*3/uL High 1.0-3.5 [facility] Comment on above: Performed By: #### A CA, 5124-3, 07223-6, 53575-1, 69726-8 #### [facility] ([id number]) [address] [address] Lymphocytes/100 WBC (Bld) 24.8 % Normal [facility] Comment on above: Performed By: #### A CA, 5124-3, 82543-8, 06036-9, 84119-4 #### [facility] ([id number]) [address] [address] MCH (RBC) [Entitic mass] 30.3 pg Normal 27-34 [facility] Comment on above: Performed By: #### A CA, 5124-3, 82627-5, 41214-2, 13611-2 #### [facility] ([id number]) [address] [place] [address] MCHC (RBC) [Mass/Vol] 34.2 g/dL Normal 32-36 [facility] Comment on above: Performed By: #### A CA, 5124-3, 06109-5, 03018-0, 22364-5 #### [facility] ([id number]) [address] [address] MCV (RBC) [Entitic vol] 89 fL Normal 80-100 [facility] Comment on above: Performed By: #### A CA, 5124-3, 32859-0, 15424-9, 38308-7 #### [facility] ([id number]) [address] [address] Monocytes (Bld) [#/Vol] 1.2 10*3/uL High 0-0.9 [facility] Comment on above: Performed By: #### A CA, 5124-3, 87181-1, 80825-1, 04515-1 #### [facility] ([id number]) [address] [address] Monocytes/100 WBC (Bld) 7.2 % Normal [facility] Comment on above: Performed By: #### A CA, 5124-3, 35646-4, 90751-8, 97806-7 #### [facility] ([id number]) [address] [address] Neutrophils/100 WBC (Bld) 67.4 % Normal [facility] Comment on above: Performed By: #### A CA, 5124-3, 18662-0, 77278-1, 27132-2 #### [facility] ([id number]) [address] [place] [address] Platelet mean volume (Bld) [Entitic vol] 8.3 fL Normal 7-12 [facility] Comment on above: Performed By: #### A CA, 5124-3, 55531-2, 23583-5, 48804-7 #### [facility] ([id number]) [address] [place] [address] Platelets (Bld) [#/Vol] 345 10*3/uL Normal 150-450 [facility] Comment on above: Performed By: #### A CA, 5124-3, 61066-4, 31259-3, 02574-9 #### [facility] ([id number]) [address], [address] [place] [address] RBC COUNT 4.35 X10E12/L Normal 3.80-5.20 [facility] Comment on above: Performed By: #### A CA, 5124-3, 57607-8, 25238-7, 57757-5 #### [facility] ([id number]) [address], [address] [address] WBC (Bld) [#/Vol] 17.1 10*3/uL High 4.0-11.0 [facility] Comment on above: Performed By: #### A CA, 5124-3, 64768-4, 83362-8, 58366-5 #### [facility] ([id number]) [address], [address] [place] [address] COMPREHENSIVE METABOLIC PANE Yasmani 10-01-2023 Albumin [Mass/Vol] 3.3 g/dL Normal 3.2-5.3 [facility] Comment on above: Performed By: #### A CA, 5124-3, 24179-8, 25342-3, 23239-8 #### [facility] ([id number]) [address], [address] [place] [address] ALP [Catalytic activity/Vol] 69 U/L Normal 39-130 [facility] Comment on above: Performed By: #### A CA, 5124-3, 93193-0, 83128-9, 03759-8 #### [facility] ([id number]) [address], [address] [place] [address] ALT [Catalytic activity/Vol] 10 U/L Normal 0-31 [facility] Comment on above: Performed By: #### A CA, 5124-3, 16203-8, 71022-2, 70167-1 #### [facility] ([id number]) [address], [address] [place] [address] Anion gap [Moles/Vol] 10 mmol/L Normal 5-15 [facility] Comment on above: Performed By: #### A CA, 5124-3, 78172-1, 49942-7, 97472-1 #### [facility] ([id number]) [address], [address] [place] [address] AST [Catalytic activity/Vol] 21 U/L Normal 0-41 [facility] Comment on above: Performed By: #### A CA, 5124-3, 14178-3, 89130-0, 06251-2 #### [facility] ([id number]) [address], [address] [place] [address] Bilirubin [Mass/Vol] 0.3 mg/dL Normal 0.3-1.2 [facility] Comment on above: Performed By: #### A CA, 5124-3, 23607-1, 87335-7, 75752-5 #### [facility] ([id number]) [address], [address] [place] [address] Calcium [Mass/Vol] 8.0 mg/dL Low 8.5-10.5 [facility] Comment on above: Performed By: #### A CA, 5124-3, 68727-1, 59223-6, 75961-2 #### [facility] ([id number]) [address], [address] [place] [address] Chloride [Moles/Vol] 102 mmol/L Normal 98-109 [facility] Comment on above: Performed By: #### A PARUL, 5124-3, 23090-6, 29906-2, 65788-4 #### [facility] ([id number]) [address], [address] [place] [address] CO2 [Moles/Vol] 21 mmol/L Low 22-32 [facility] Comment on above: Performed By: #### A CA, 5124-3, 64526-3, 45351-9, 20560-3 #### [facility] ([id number]) [address], [facility] [address] [place] [address] Creatinine [Mass/Vol] 0.64 mg/dL Normal 0.40-1.00 [facility] Comment on above: Result Comment: METH OD TRACEABLE TO IDMS STANDARD Performed By: #### A PARUL, 5124-3, 04001-1, 32140-1, 00277-2 #### [facility] ([id number]) [address], [facility] [address] [place] [address] eGFR (CKD-EPI) NON-RACE DEPENDENT >90 Normal >59 [facility] Comment on above: Result Comment: Reported eGFR is based on the CKD-EPI 1 equation that does not use a race coefficient. Performed By: #### A PARUL, 5124-3, 91548-1, 09821-8, 51616-0 #### [facility] ([id number]) [address] [address] [place] [address] Glucose [Mass/Vol] 95 mg/dL Normal 65-99 [facility] Comment on above: Performed By: #### A CA, 5124-3, 78045-1, 21106-5, 57476-0 #### [facility] ([id number]) [address], [facility] [address] [place] [address] Potassium [Moles/Vol] 4.1 mmol/L Normal 3.5-5.0 [facility] Comment on above: Performed By: #### A CA, 5124-3, 92872-9, 47020-0, 60799-4 #### [facility] ([id number]) [address], [address] [place] [address] Protein [Mass/Vol] 6.2 g/dL Normal 6.0-8.0 [facility] Comment on above: Performed By: #### A CA, 5124-3, 02725-6, 72844-4, 75948-2 #### [facility] ([id number]) [address], [address] [place] [address] Sodium [Moles/Vol] 133 mmol/L Low 134-146 [facility] Comment on above: Performed By: #### A CA, 5124-3, 02481-4, 75645-4, 39040-8 #### [facility] ([id number]) [address], [address] [place] [address] Urea nitrogen [Mass/Vol] 11 mg/dL Normal 5-23 [facility] Comment on above: Performed By: #### A CA, 5124-3, 31342-4, 53703-3, 36271-9 #### [facility] ([id number]) [address], [address] [place] [address] Albumin [Mass/Vol] 3.3 g/dL Normal 3.2-5.3 [facility] Comment on above: Performed By: #### A CA, 5124-3, 59476-3, 45894-4, 97222-9 #### [facility] ([id number]) [address], [address] [place] [address] ALP [Catalytic activity/Vol] 61 U/L Normal 39-130 [facility] Comment on above: Performed By: #### A CA, 5124-3, 46370-0, 88210-7, 00422-6 #### [facility] ([id number]) [address], [address] [place] [address] ALT [Catalytic activity/Vol] 12 U/L Normal 0-31 [facility] Comment on above: Performed By: #### A CA, 5124-3, 04926-0, 98043-0, 85211-9 #### [facility] ([id number]) [address], [address] [place] [address] Anion gap [Moles/Vol] 11 mmol/L Normal 5-15 [facility] Comment on above: Performed By: #### A CA, 5124-3, 35653-5, 24202-0, 60408-7 #### [facility] ([id number]) [address], [address] [place] [address] AST [Catalytic activity/Vol] 23 U/L Normal 0-41 [facility] Comment on above: Performed By: #### A CA, 5124-3, 10706-8, 37314-8, 25700-2 #### [facility] ([id number]) [address], [address] [place] [address] Bilirubin [Mass/Vol] 0.2 mg/dL Low 0.3-1.2 [facility] Comment on above: Performed By: #### A CA, 5124-3, 83068-8, 50295-5, 78723-6 #### [facility] ([id number]) [address], [address] [place] [address] Calcium [Mass/Vol] 8.4 mg/dL Low 8.5-10.5 [facility] Comment on above: Performed By: #### A CA, 5124-3, 91707-5, 39291-3, 08790-6 #### [facility] ([id number]) [address], [address] [place] [address] Chloride [Moles/Vol] 103 mmol/L Normal 98-109 [facility] Comment on above: Performed By: #### A CA, 5124-3, 68668-9, 72006-9, 48329-8 #### [facility] ([id number]) [address], [address] [place] [address] CO2 [Moles/Vol] 20 mmol/L Low 22-32 [facility] Comment on above: Performed By: #### A CA, 5124-3, 78963-4, 32015-8, 17319-4 #### [facility] ([id number]) [address], [facility] [address] [place] [address] Creatinine [Mass/Vol] 0.57 mg/dL Normal 0.40-1.00 [facility] Comment on above: Result Comment: METH OD TRACEABLE TO IDMS STANDARD Performed By: #### A PARUL, 5124-3, 73224-5, 84018-7, 11118-2 #### [facility] ([id number]) [address] [place] [address] eGFR (CKD-EPI) NON-RACE DEPENDENT >90 Normal >59 [facility] Comment on above: Result Comment: Reported eGFR is based on the CKD-EPI 2020 equation that does not use a race coefficient. Performed By: #### A PARUL, 5124-3, 17685-0, 74612-6, 79630-2 #### [facility] ([id number]) [address], [address] [place] [address] Glucose [Mass/Vol] 77 mg/dL Normal 65-99 [facility] Comment on above: Performed By: #### A CA, 5124-3, 28009-3, 06137-6, 40625-4 #### [facility] ([id number]) [address], [address] [place] [address] Potassium [Moles/Vol] 3.9 mmol/L Normal 3.5-5.0 [facility] Comment on above: Performed By: #### A CA, 5124-3, 03324-0, 03568-5, 05895-2 #### [facility] ([id number]) [address], [address] [place] [address] Protein [Mass/Vol] 6.2 g/dL Normal 6.0-8.0 [facility] Comment on above: Performed By: #### A CA, 5124-3, 90995-9, 88590-2, 37268-3 #### [facility] ([id number]) [address], [address] [place] [address] Sodium [Moles/Vol] 134 mmol/L Normal 134-146 [facility] Comment on above: Performed By: #### A CA, 5124-3, 41274-4, 11996-0, 17922-7 #### [facility] ([id number]) [address], [address] [place] [address] Urea nitrogen [Mass/Vol] 12 mg/dL Normal 5-23 [facility] Comment on above: Performed By: #### A CA, 5124-3, 58315-0, 97471-2, 00884-9 #### [facility] ([id number]) [address], [address] [place] [address] Albumin [Mass/Vol] 3.4 g/dL Normal 3.2-5.3 [facility] Comment on above: Performed By: #### A CA, 5124-3, 15296-2, 84364-2, 79882-5 #### [facility] ([id number]) [address], [address] [place] [address] ALP [Catalytic activity/Vol] 64 U/L Normal 39-130 [facility] Comment on above: Performed By: #### A CA, 5124-3, 02869-9, 33178-4, 92099-4 #### [facility] ([id number]) [address], [address] [place] [address] ALT [Catalytic activity/Vol] 13 U/L Normal 0-31 [facility] Comment on above: Performed By: #### A CA, 5124-3, 57327-2, 68640-7, 57721-2 #### [facility] ([id number]) [address], [address] [place] [address] Anion gap [Moles/Vol] 12 mmol/L Normal 5-15 [facility] Comment on above: Performed By: #### A CA, 5124-3, 49206-0, 09242-4, 18450-0 #### [facility] ([id number]) [address], [address] [place] [address] AST [Catalytic activity/Vol] 22 U/L Normal 0-41 [facility] Comment on above: Performed By: #### A CA, 5124-3, 47289-0, 60155-4, 76117-2 #### [facility] ([id number]) [address], [address] [place] [address] Bilirubin [Mass/Vol] 0.2 mg/dL Low 0.3-1.2 [facility] Comment on above: Performed By: #### A CA, 5124-3, 32726-2, 73859-0, 20371-5 #### [facility] ([id number]) [address] [place] [address] Calcium [Mass/Vol] 8.9 mg/dL Normal 8.5-10.5 [facility] Comment on above: Performed By: #### A CA, 5124-3, 15958-2, 48899-3, 20296-3 #### [facility] ([id number]) [address] [place] [address] Chloride [Moles/Vol] 105 mmol/L Normal 98-109 [facility] Comment on above: Performed By: #### A CA, 5124-3, 79349-4, 13254-8, 26423-4 #### [facility] ([id number]) [address], [address] [place] [address] CO2 [Moles/Vol] 20 mmol/L Low 22-32 [facility] Comment on above: Performed By: #### A PARUL, 5124-3, 27420-4, 18499-7, 95238-4 #### [facility] ([id number]) [address], [facility] [address] [place] [address] Creatinine [Mass/Vol] 0.57 mg/dL Normal 0.40-1.00 [facility] Comment on above: Result Comment: METH OD TRACEABLE TO IDMS STANDARD Performed By: #### A PARUL, 5124-3, 43727-9, 47424-2, 79678-9 #### [facility] ([id number]) [address], [facility] [address] [place] [address] eGFR (CKD-EPI) NON-RACE DEPENDENT >90 Normal >59 [facility] Comment on above: Result Comment: Reported eGFR is based on the CKD-EPI 2020 equation that does not use a race coefficient. Performed By: #### A PARUL, 5124-3, 61242-4, 79806-1, 14128-3 #### [facility] ([id number]) [address], [facility] [address] [place] [address] Glucose [Mass/Vol] 77 mg/dL Normal 65-99 [facility] Comment on above: Performed By: #### A PARUL, 5124-3, 27172-7, 27672-0, 54306-5 #### [facility] ([id number]) [address], [facility] [address] [place] [address] Potassium [Moles/Vol] 3.9 mmol/L Normal 3.5-5.0 [facility] Comment on above: Performed By: #### A PARUL, 5124-3, 02037-0, 53778-5, 26104-0 #### [facility] ([id number]) [address] [place] [address] Protein [Mass/Vol] 6.3 g/dL Normal 6.0-8.0 [facility] Comment on above: Performed By: #### A CA, 5124-3, 54755-4, 49759-3, 77308-1 #### [facility] ([id number]) [address], [address] [place] [address] Sodium [Moles/Vol] 137 mmol/L Normal 134-146 [facility] Comment on above: Performed By: #### A CA, 5124-3, 34410-5, 49483-2, 42107-5 #### [facility] ([id number]) [address], [facility] [address] [place] [address] Urea nitrogen [Mass/Vol] 15 mg/dL Normal 5-23 [facility] Comment on above: Performed By: #### A CA, 5124-3, 63555-9, 79277-8, 35012-2 #### [facility] ([id number]) [address], [address] [address] LDH [Catalytic activity/Vol] on 10-01-2023 LDH 164 U/L Normal 100-235 [facility] Comment on above: Performed By: #### A CA, 5124-3, 66567-0, 10103-2, 13993-2 #### [facility] ([id number]) [address], [facility] [address] [place] [address] URIC ACIDon 10-01-2023 Urate [Mass/Vol] 6.3 mg/dL Normal 2.6-7.2 [facility] Comment on above: Performed By: #### A CA, 5124-3, 95589-9, 18120-5, 85140-0 #### [facility] ([id number]) [address], [facility] [address] [place] [address] CBC AND AUTO DIFFon 03-20-20 24 ABSOLUTE BASOPHIL 0.0 X10E9/L Normal 0.0-0.2 [facility] Comment on above: Performed By: #### A CA, 5124-3, 86838-3, 88837-8, 45139-7 #### [facility] ([id number]) [address], [address] [address] ABSOLUTE NEUTROPHIL 7.9 X10E9/L High 1.5-6.6 [facility] Comment on above: Performed By: #### A CA, 5124-3, 30416-0, 63697-0, 64349-1 #### [facility] ([id number]) [address] [address] Basophils/100 WBC (Bld) 0.2 % Normal [facility] Comment on above: Performed By: #### A CA, 5124-3, 79821-4, 54069-8, 64966-9 #### [facility] ([id number]) [address] [address] Eosinophils (Bld) [#/Vol] 0.0 10*3/uL Normal 0.0-0.4 [facility] Comment on above: Performed By: #### A CA, 5124-3, 17960-8, 69538-2, 10600-0 #### [facility] ([id number]) [address] [address] Eosinophils/100 WBC (Bld) 0.2 % Normal [facility] Comment on above: Performed By: #### A CA, 5124-3, 98354-4, 95981-1, 15826-5 #### [facility] ([id number]) [address] [address] [place] [address] Erythrocyte distribution width (RBC) [Ratio] 13.1 % Normal 11.5-15.0 [facility] Comment on above: Performed By: #### A PARUL, 5124-3, 63416-0, 06023-0, 85308-6 #### [facility] ([id number]) [address] [address] [place] [address] Hematocrit (Bld) [Volume fraction] 37.6 % Normal 35-47 [facility] Comment on above: Performed By: #### A PARUL, 5124-3, 34927-5, 54732-0, 25881-2 #### [facility] ([id number]) [address] [address] [place] [address] Hemoglobin (Bld) [Mass/Vol] 12.6 g/dL Normal 11.7-15.5 [facility] Comment on above: Performed By: #### A PARUL, 5124-3, 64353-1, 39875-6, 02668-3 #### [facility] ([id number]) [address] [address] [place] [address] Lymphocytes (Bld) [#/Vol] 3.4 10*3/uL Normal 1.0-3.5 [facility] Comment on above: Performed By: #### A PARUL, 5124-3, 00280-2, 21968-5, 33572-3 #### [facility] ([id number]) [address] [address] [place] [address] Lymphocytes/100 WBC (Bld) 27.5 % Normal [facility] Comment on above: Performed By: #### A PARUL, 5124-3, 69806-2, 73058-0, 24120-0 #### [facility] ([id number]) [address] [address] [place] [address] MCH (RBC) [Entitic mass] 30.2 pg Normal 27-34 [facility] Comment on above: Performed By: #### A CA, 5124-3, 28436-2, 37436-9, 78925-4 #### [facility] ([id number]) [address] [address] MCHC (RBC) [Mass/Vol] 33.4 g/dL Normal 32-36 [facility] Comment on above: Performed By: #### A CA, 5124-3, 20848-5, 26555-6, 97045-0 #### [facility] ([id number]) [address] [address] MCV (RBC) [Entitic vol] 90 fL Normal 80-100 [facility] Comment on above: Performed By: #### A CA, 5124-3, 27421-3, 87422-0, 16202-0 #### [facility] ([id number]) [address] [address] Monocytes (Bld) [#/Vol] 1.1 10*3/uL High 0-0.9 [facility] Comment on above: Performed By: #### A CA, 5124-3, 30082-6, 96079-1, 35242-3 #### [facility] ([id number]) [address] [address] Monocytes/100 WBC (Bld) 8.4 % Normal [facility] Comment on above: Performed By: #### A CA, 5124-3, 65195-9, 25410-3, 29334-4 #### [facility] ([id number]) [address] [address] Neutrophils/100 WBC (Bld) 63.7 % Normal [facility] Comment on above: Performed By: #### A CA, 5124-3, 44405-1, 24880-3, 36689-5 #### [facility] ([id number]) [address] [place] [address] Platelet mean volume (Bld) [Entitic vol] 8.3 fL Normal 7-12 [facility] Comment on above: Performed By: #### A CA, 5124-3, 16654-4, 93711-6, 02338-0 #### [facility] ([id number]) [address], [facility] [address] [place] [address] Platelets (Bld) [#/Vol] 319 10*3/uL Normal 150-450 [facility] Comment on above: Performed By: #### A CA, 5124-3, 56844-7, 93842-1, 51366-5 #### [facility] ([id number]) [address] [address] [place] [address] RBC COUNT 4.16 X10E12/L Normal 3.80-5.20 [facility] Comment on above: Performed By: #### A PARUL, 5124-3, 49292-1, 11135-6, 27477-8 #### [facility] ([id number]) [address] [address] WBC (Bld) [#/Vol] 12.5 10*3/uL High 4.0-11.0 [facility] Comment on above: Performed By: #### A PARUL, 5124-3, 48614-7, 20298-3, 42618-5 #### [facility] ([id number]) [address] [place] [address] COMPREHENSIVE METABOLIC PANE Yasmani 09-30-2023 Albumin [Mass/Vol] 3.2 g/dL Normal 3.2-5.3 [facility] Comment on above: Performed By: #### A CA, 5124-3, 62961-5, 39085-7, 66263-7 #### [facility] ([id number]) [address] [address] [place] [address] ALP [Catalytic activity/Vol] 57 U/L Normal 39-130 [facility] Comment on above: Performed By: #### A CA, 5124-3, 90045-1, 21534-4, 39138-7 #### [facility] ([id number]) [address] [place] [address] ALT [Catalytic activity/Vol] 12 U/L Normal 0-31 [facility] Comment on above: Performed By: #### A CA, 5124-3, 14772-8, 10761-9, 47704-8 #### [facility] ([id number]) [address], [facility] [address] [place] [address] Anion gap [Moles/Vol] 13 mmol/L Normal 5-15 [facility] Comment on above: Performed By: #### A CA, 5124-3, 80121-7, 02452-9, 06362-6 #### [facility] ([id number]) [address], [address] [place] [address] AST [Catalytic activity/Vol] 19 U/L Normal 0-41 [facility] Comment on above: Performed By: #### A CA, 5124-3, 97823-3, 97161-3, 83115-3 #### [facility] ([id number]) [address], [facility] [address] [place] [address] Bilirubin [Mass/Vol] 0.2 mg/dL Low 0.3-1.2 [facility] Comment on above: Performed By: #### A CA, 5124-3, 95680-0, 31486-2, 86459-8 #### [facility] ([id number]) [address], [facility] [address] [place] [address] Calcium [Mass/Vol] 8.9 mg/dL Normal 8.5-10.5 [facility] Comment on above: Performed By: #### A CA, 5124-3, 56635-0, 30385-3, 01396-8 #### [facility] ([id number]) [address] [place] [address] Chloride [Moles/Vol] 105 mmol/L Normal 98-109 [facility] Comment on above: Performed By: #### A CA, 5124-3, 76674-2, 85966-0, 19990-8 #### [facility] ([id number]) [address] [place] [address] CO2 [Moles/Vol] 21 mmol/L Low 22-32 [facility] Comment on above: Performed By: #### A CA, 5124-3, 59642-3, 61882-4, 34620-9 #### [facility] ([id number]) [address] [address] Creatinine [Mass/Vol] 0.64 mg/dL Normal 0.40-1.00 [facility] Comment on above: Result Comment: METH OD TRACEABLE TO IDMS STANDARD Performed By: #### A CA, 5124-3, 38001-0, 28734-3, 21650-2 #### [facility] ([id number]) [address], [facility] [address] [place] [address] eGFR (CKD-EPI) NON-RACE DEPENDENT >90 Normal >59 [facility] Comment on above: Result Comment: Reported eGFR is based on the CKD-EPI 2020 equation that does not use a race coefficient. Performed By: #### A CA, 5124-3, 14398-4, 29531-5, 78598-2 #### [facility] ([id number]) [address], [facility] [address] [place] [address] Glucose [Mass/Vol] 74 mg/dL Normal 65-99 [facility] Comment on above: Performed By: #### A CA, 5124-3, 15413-6, 88075-5, 34947-8 #### [facility] ([id number]) [address] [place] [address] Potassium [Moles/Vol] 3.9 mmol/L Normal 3.5-5.0 [facility] Comment on above: Performed By: #### A CA, 5124-3, 90601-8, 45044-6, 45668-4 #### [facility] ([id number]) [address], [facility] [address] [place] [address] Protein [Mass/Vol] 6.0 g/dL Normal 6.0-8.0 [facility] Comment on above: Performed By: #### A CA, 5124-3, 98552-2, 63326-2, 84087-9 #### [facility] ([id number]) [address] [place] [address] Sodium [Moles/Vol] 139 mmol/L Normal 134-146 [facility] Comment on above: Performed By: #### A CA, 5124-3, 98070-9, 81903-6, 25110-8 #### [facility] ([id number]) [address], [address] [place] [address] Urea nitrogen [Mass/Vol] 19 mg/dL Normal 5-23 [facility] Comment on above: Performed By: #### A CA, 5124-3, 25551-3, 94897-2, 93399-6 #### [facility] ([id number]) [address], [address] [place] [address] CBC AND AUTO DIFFon 09-29-19 24 ABSOLUTE BASOPHIL 0.0 X10E9/L Normal 0.0-0.2 [facility] Comment on above: Performed By: #### A CA, 5124-3, 86311-3, 98508-0, 14381-3 #### [facility] ([id number]) [address] [address] [place] [address] ABSOLUTE NEUTROPHIL 12.0 X10E9/L High 1.5-6.6 [facility] Comment on above: Performed By: #### A PARUL, 5124-3, 55841-2, 04466-4, 68050-7 #### [facility] ([id number]) [address], [facility] [address] [place] [address] Basophils/100 WBC (Bld) 0.2 % Normal [facility] Comment on above: Performed By: #### A PARUL, 5124-3, 00625-2, 68788-5, 12799-2 #### [facility] ([id number]) [address], [address] [address] Eosinophils (Bld) [#/Vol] 0.0 10*3/uL Normal 0.0-0.4 [facility] Comment on above: Performed By: #### A PARUL, 5124-3, 83620-8, 24968-8, 67368-9 #### [facility] ([id number]) [address], [facility] [address] [place] [address] Eosinophils/100 WBC (Bld) 0.0 % Normal [facility] Comment on above: Performed By: #### A PARUL, 5124-3, 78523-6, 16565-1, 84821-8 #### [facility] ([id number]) [address], [facility] [address] [place] [address] Erythrocyte distribution width (RBC) [Ratio] 13.4 % Normal 11.5-15.0 [facility] Comment on above: Performed By: #### A PARUL, 5124-3, 72373-0, 73814-9, 05604-0 #### [facility] ([id number]) [address], [facility] [address] [place] [address] Hematocrit (Bld) [Volume fraction] 36.3 % Normal 35-47 [facility] Comment on above: Performed By: #### A CA, 5124-3, 98541-9, 08859-9, 62851-2 #### [facility] ([id number]) [address] [address] Hemoglobin (Bld) [Mass/Vol] 12.5 g/dL Normal 11.7-15.5 [facility] Comment on above: Performed By: #### A CA, 5124-3, 59897-9, 22778-6, 76799-5 #### [facility] ([id number]) [address] [address] Lymphocytes (Bld) [#/Vol] 1.9 10*3/uL Normal 1.0-3.5 [facility] Comment on above: Performed By: #### A CA, 5124-3, 93801-3, 32472-7, 61425-0 #### [facility] ([id number]) [address] [address] Lymphocytes/100 WBC (Bld) 12.8 % Normal [facility] Comment on above: Performed By: #### A CA, 5124-3, 41499-0, 21043-6, 11106-3 #### [facility] ([id number]) [address] [address] MCH (RBC) [Entitic mass] 31.0 pg Normal 27-34 [facility] Comment on above: Performed By: #### A CA, 5124-3, 32116-2, 50663-1, 64683-5 #### [facility] ([id number]) [address] [address] MCHC (RBC) [Mass/Vol] 34.3 g/dL Normal 32-36 [facility] Comment on above: Performed By: #### A CA, 5124-3, 49335-6, 22142-9, 36925-1 #### [facility] ([id number]) [address], [facility] [address] [place] [address] MCV (RBC) [Entitic vol] 90 fL Normal 80-100 [facility] Comment on above: Performed By: #### A CA, 5124-3, 51226-2, 73227-0, 13950-6 #### [facility] ([id number]) [address], [facility] [address] [place] [address] Monocytes (Bld) [#/Vol] 0.9 10*3/uL Normal 0-0.9 [facility] Comment on above: Performed By: #### A CA, 5124-3, 45467-2, 27577-0, 10529-5 #### [facility] ([id number]) [address] [address] Monocytes/100 WBC (Bld) 6.2 % Normal [facility] Comment on above: Performed By: #### A CA, 5124-3, 44764-1, 47139-4, 42146-2 #### [facility] ([id number]) [address] [address] [place] [address] Neutrophils/100 WBC (Bld) 80.8 % Normal [facility] Comment on above: Performed By: #### A CA, 5124-3, 64941-5, 00883-6, 79399-6 #### [facility] ([id number]) [address], [facility] [address] [place] [address] Platelet mean volume (Bld) [Entitic vol] 8.4 fL Normal 7-12 [facility] Comment on above: Performed By: #### A CA, 5124-3, 94631-5, 17246-5, 99541-2 #### [facility] ([id number]) [address] [address] [place] [address] Platelets (Bld) [#/Vol] 337 10*3/uL Normal 150-450 [facility] Comment on above: Performed By: #### A CA, 5124-3, 09017-5, 29282-5, 44671-5 #### [facility] ([id number]) [address], [address] [place] [address] RBC COUNT 4.02 X10E12/L Normal 3.80-5.20 [facility] Comment on above: Performed By: #### A CA, 5124-3, 97380-0, 93307-0, 69119-9 #### [facility] ([id number]) [address], [address] [place] [address] WBC (Bld) [#/Vol] 14.9 10*3/uL High 4.0-11.0 [facility] Comment on above: Performed By: #### A CA, 5124-3, 76665-9, 81910-4, 66879-7 #### [facility] ([id number]) [address], [address] [place] [address] COMPREHENSIVE METABOLIC PANE Yasmani 09-29-2023 Albumin [Mass/Vol] 3.4 g/dL Normal 3.2-5.3 [facility] Comment on above: Performed By: #### A CA, 5124-3, 11203-4, 02125-8, 60128-9 #### [facility] ([id number]) [address], [address] [place] [address] ALP [Catalytic activity/Vol] 67 U/L Normal 39-130 [facility] Comment on above: Performed By: #### A CA, 5124-3, 83245-7, 68343-3, 07598-8 #### [facility] ([id number]) [address], [address] [place] [address] ALT [Catalytic activity/Vol] 15 U/L Normal 0-31 [facility] Comment on above: Performed By: #### A CA, 5124-3, 71081-4, 78169-0, 06862-9 #### [facility] ([id number]) [address], [address] [place] [address] Anion gap [Moles/Vol] 9 mmol/L Normal 5-15 [facility] Comment on above: Performed By: #### A CA, 5124-3, 75351-8, 48134-5, 36351-7 #### [facility] ([id number]) [address], [address] [place] [address] AST [Catalytic activity/Vol] 20 U/L Normal 0-41 [facility] Comment on above: Performed By: #### A CA, 5124-3, 28294-5, 54226-1, 67591-5 #### [facility] ([id number]) [address], [address] [place] [address] Bilirubin [Mass/Vol] 0.2 mg/dL Low 0.3-1.2 [facility] Comment on above: Performed By: #### A CA, 5124-3, 99404-5, 91811-0, 42195-3 #### [facility] ([id number]) [address], [address] [place] [address] Calcium [Mass/Vol] 8.9 mg/dL Normal 8.5-10.5 [facility] Comment on above: Performed By: #### A CA, 5124-3, 57910-4, 63187-0, 02319-6 #### [facility] ([id number]) [address], [address] [place] [address] Chloride [Moles/Vol] 106 mmol/L Normal 98-109 [facility] Comment on above: Performed By: #### A CA, 5124-3, 23674-2, 58512-0, 01379-1 #### [facility] ([id number]) [address], [address] [place] [address] CO2 [Moles/Vol] 21 mmol/L Low 22-32 [facility] Comment on above: Performed By: #### A PARUL, 5124-3, 47319-4, 00180-2, 19711-0 #### [facility] ([id number]) [address] [address] Creatinine [Mass/Vol] 0.63 mg/dL Normal 0.40-1.00 [facility] Comment on above: Result Comment: METH OD TRACEABLE TO IDMS STANDARD Performed By: #### A PARUL, 5124-3, 34848-9, 67291-2, 76173-0 #### [facility] ([id number]) [address] [address] eGFR (CKD-EPI) NON-RACE DEPENDENT >90 Normal >59 [facility] Comment on above: Result Comment: Reported eGFR is based on the CKD-EPI 2020 equation that does not use a race coefficient. Performed By: #### A PARUL, 5124-3, 32793-1, 95195-1, 85528-4 #### [facility] ([id number]) [address] [address] Glucose [Mass/Vol] 101 mg/dL High 65-99 [facility] Comment on above: Performed By: #### A PARUL, 5124-3, 17484-4, 16175-6, 54635-1 #### [facility] ([id number]) [address] [address] Potassium [Moles/Vol] 4.2 mmol/L Normal 3.5-5.0 [facility] Comment on above: Performed By: #### A PARUL, 5124-3, 73285-2, 92560-2, 62282-2 #### [facility] ([id number]) [address] [address] Protein [Mass/Vol] 6.3 g/dL Normal 6.0-8.0 [facility] Comment on above: Performed By: #### A CA, 5124-3, 40172-7, 38000-1, 82142-6 #### [facility] ([id number]) [address], [address] [place] [address] Sodium [Moles/Vol] 136 mmol/L Normal 134-146 [facility] Comment on above: Performed By: #### A CA, 5124-3, 76345-7, 23469-5, 73353-5 #### [facility] ([id number]) [address], [facility] [address] [place] [address] Urea nitrogen [Mass/Vol] 17 mg/dL Normal 5-23 [facility] Comment on above: Performed By: #### A PARUL, 5124-3, 70810-8, 32176-8, 26872-1 #### [facility] ([id number]) [address], [facility] [address] [place] [address] Glucose Glucometer (BldC) [M ass/Vol]on 09-29-2023 Glucose [Mass/Vol] 89 mg/dL Normal 65-99 [facility] 24 HR URINE TOTAL PROTEINon 09-28-2023 URINE TOTAL PROTEIN 949 mg/24h High 0-150 [facility] Comment on above: Performed By: #### A CA, 5124-3, 04371-8, 21185-8, 01837-1 #### [facility] ([id number]) [address] [address] CBC AND AUTO DIFFon 09-28-19 24 ABSOLUTE BASOPHIL 0.0 X10E9/L Normal 0.0-0.2 [facility] Comment on above: Performed By: #### A CA, 5124-3, 09018-7, 58791-5, 89766-8 #### [facility] ([id number]) [address], [address] [place] [address] ABSOLUTE NEUTROPHIL 11.5 X10E9/L High 1.5-6.6 [facility] Comment on above: Performed By: #### A CA, 5124-3, 76626-6, 40948-6, 98408-9 #### [facility] ([id number]) [address], [address] [address] Basophils/100 WBC (Bld) 0.1 % Normal [facility] Comment on above: Performed By: #### A PARUL, 5124-3, 62449-1, 36621-2, 78181-7 #### [facility] ([id number]) [address], [address] [address] Eosinophils (Bld) [#/Vol] 0.0 10*3/uL Normal 0.0-0.4 [facility] Comment on above: Performed By: #### A PARUL, 5124-3, 49302-1, 65279-7, 20213-9 #### [facility] ([id number]) [address] [address] Eosinophils/100 WBC (Bld) 0.0 % Normal [facility] Comment on above: Performed By: #### A PARUL, 5124-3, 17951-4, 65050-1, 59593-6 #### [facility] ([id number]) [address], [address] [address] Erythrocyte distribution width (RBC) [Ratio] 13.5 % Normal 11.5-15.0 [facility] Comment on above: Performed By: #### A PARUL, 5124-3, 16335-0, 33127-0, 65919-3 #### [facility] ([id number]) [address] [address] Hematocrit (Bld) [Volume fraction] 36.1 % Normal 35-47 [facility] Comment on above: Performed By: #### A CA, 5124-3, 52489-7, 75175-9, 21438-1 #### [facility] ([id number]) [address] [address] [place] [address] Hemoglobin (Bld) [Mass/Vol] 12.2 g/dL Normal 11.7-15.5 [facility] Comment on above: Performed By: #### A CA, 5124-3, 24337-0, 79720-2, 16157-7 #### [facility] ([id number]) [address] [address] Lymphocytes (Bld) [#/Vol] 1.3 10*3/uL Normal 1.0-3.5 [facility] Comment on above: Performed By: #### A CA, 5124-3, 56537-8, 76169-0, 25050-6 #### [facility] ([id number]) [address], [address] [address] Lymphocytes/100 WBC (Bld) 9.4 % Normal [facility] Comment on above: Performed By: #### A CA, 5124-3, 76948-1, 15117-4, 95581-6 #### [facility] ([id number]) [address] [address] [place] [address] MCH (RBC) [Entitic mass] 30.4 pg Normal 27-34 [facility] Comment on above: Performed By: #### A CA, 5124-3, 76362-5, 48758-4, 49402-3 #### [facility] ([id number]) [address] [address] [place] [address] MCHC (RBC) [Mass/Vol] 33.7 g/dL Normal 32-36 [facility] Comment on above: Performed By: #### A CA, 5124-3, 33975-0, 17565-2, 19051-4 #### [facility] ([id number]) [address] [address] [place] [address] MCV (RBC) [Entitic vol] 90 fL Normal 80-100 [facility] Comment on above: Performed By: #### A CA, 5124-3, 41792-0, 65870-0, 12300-7 #### [facility] ([id number]) [address] [address] [place] [address] Monocytes (Bld) [#/Vol] 0.8 10*3/uL Normal 0-0.9 [facility] Comment on above: Performed By: #### A CA, 5124-3, 54541-6, 36859-9, 78936-0 #### [facility] ([id number]) [address] [address] Monocytes/100 WBC (Bld) 5.6 % Normal [facility] Comment on above: Performed By: #### A CA, 5124-3, 86892-2, 44684-4, 81741-8 #### [facility] ([id number]) [address] [address] [place] [address] Neutrophils/100 WBC (Bld) 84.9 % Normal [facility] Comment on above: Performed By: #### A CA, 5124-3, 81852-3, 97538-0, 57036-2 #### [facility] ([id number]) [address], [facility] [address] [place] [address] Platelet mean volume (Bld) [Entitic vol] 8.5 fL Normal 7-12 [facility] Comment on above: Performed By: #### A CA, 5124-3, 80526-0, 74129-4, 65995-4 #### [facility] ([id number]) [address], [facility] [address] [place] [address] Platelets (Bld) [#/Vol] 311 10*3/uL Normal 150-450 [facility] Comment on above: Performed By: #### A CA, 5124-3, 21666-3, 96742-9, 45980-3 #### [facility] ([id number]) [address], [address] [place] [address] RBC COUNT 4.00 X10E12/L Normal 3.80-5.20 [facility] Comment on above: Performed By: #### A CA, 5124-3, 32842-6, 11827-9, 24345-7 #### [facility] ([id number]) [address], [address] [place] [address] WBC (Bld) [#/Vol] 13.6 10*3/uL High 4.0-11.0 [facility] Comment on above: Performed By: #### A CA, 5124-3, 99883-5, 12426-6, 59980-9 #### [facility] ([id number]) [address], [address] [place] [address] COMPREHENSIVE METABOLIC PANE Yasmani 09-28-2023 Albumin [Mass/Vol] 3.4 g/dL Normal 3.2-5.3 [facility] Comment on above: Performed By: #### A CA, 5124-3, 01726-1, 73666-1, 63941-0 #### [facility] ([id number]) [address], [address] [place] [address] ALP [Catalytic activity/Vol] 64 U/L Normal 39-130 [facility] Comment on above: Performed By: #### A CA, 5124-3, 01828-2, 98205-7, 31266-4 #### [facility] ([id number]) [address], [address] [place] [address] ALT [Catalytic activity/Vol] 15 U/L Normal 0-31 [facility] Comment on above: Performed By: #### A CA, 5124-3, 22970-4, 06803-6, 25847-1 #### [facility] ([id number]) [address], [address] [place] [address] Anion gap [Moles/Vol] 11 mmol/L Normal 5-15 [facility] Comment on above: Performed By: #### A CA, 5124-3, 09044-0, 33908-3, 31069-5 #### [facility] ([id number]) [address], [address] [place] [address] AST [Catalytic activity/Vol] 23 U/L Normal 0-41 [facility] Comment on above: Performed By: #### A CA, 5124-3, 95245-0, 50813-8, 87701-7 #### [facility] ([id number]) [address], [address] [place] [address] Bilirubin [Mass/Vol] 0.3 mg/dL Normal 0.3-1.2 [facility] Comment on above: Performed By: #### A CA, 5124-3, 41184-1, 58794-2, 49180-2 #### [facility] ([id number]) [address], [address] [place] [address] Calcium [Mass/Vol] 8.2 mg/dL Low 8.5-10.5 [facility] Comment on above: Performed By: #### A CA, 5124-3, 93876-2, 25702-1, 51335-4 #### [facility] ([id number]) [address], [address] [place] [address] Chloride [Moles/Vol] 103 mmol/L Normal 98-109 [facility] Comment on above: Performed By: #### A CA, 5124-3, 13861-3, 79136-2, 72473-8 #### [facility] ([id number]) [address] [address] [place] [address] CO2 [Moles/Vol] 20 mmol/L Low 22-32 [facility] Comment on above: Performed By: #### A CA, 5124-3, 45174-0, 00266-8, 38368-0 #### [facility] ([id number]) [address], [facility] [address] [place] [address] Creatinine [Mass/Vol] 0.70 mg/dL Normal 0.40-1.00 [facility] Comment on above: Result Comment: METH OD TRACEABLE TO IDMS STANDARD Performed By: #### A PARUL, 5124-3, 95348-0, 96349-5, 07753-6 #### [facility] ([id number]) [address] [address] eGFR (CKD-EPI) NON-RACE DEPENDENT >90 Normal >59 [facility] Comment on above: Result Comment: Reported eGFR is based on the CKD-EPI 2020 equation that does not use a race coefficient. Performed By: #### A PARUL, 5124-3, 46042-0, 03101-4, 38966-1 #### [facility] ([id number]) [address] [address] Glucose [Mass/Vol] 101 mg/dL High 65-99 [facility] Comment on above: Performed By: #### A PARUL, 5124-3, 05293-2, 62755-8, 95466-9 #### [facility] ([id number]) [address] [address] [place] [address] Potassium [Moles/Vol] 4.0 mmol/L Normal 3.5-5.0 [facility] Comment on above: Performed By: #### A CA, 5124-3, 67678-3, 44481-1, 91181-9 #### [facility] ([id number]) [address] [address] Protein [Mass/Vol] 6.4 g/dL Normal 6.0-8.0 [facility] Comment on above: Performed By: #### A PARUL, 5124-3, 09054-5, 00950-5, 68743-8 #### [facility] ([id number]) [address], [facility] [address] [place] [address] Sodium [Moles/Vol] 134 mmol/L Normal 134-146 [facility] Comment on above: Performed By: #### A PARUL, 5124-3, 98332-1, 48869-5, 69141-8 #### [facility] ([id number]) [address] [address] Urea nitrogen [Mass/Vol] 10 mg/dL Normal 5-23 [facility] Comment on above: Performed By: #### A PARUL, 5124-3, 87744-2, 88098-3, 66400-0 #### [facility] ([id number]) [address] [address] Glucose Glucometer (dC) [M ass/Vol]on 09-28-2023 Glucose [Mass/Vol] 117 mg/dL High 65-99 [facility] Glucose [Mass/Vol] 139 mg/dL High 65-99 [facility] Glucose [Mass/Vol] 122 mg/dL High 65-99 [facility] Glucose [Mass/Vol] 105 mg/dL High 65-99 [facility] Glucose [Mass/Vol] 107 mg/dL High 65-99 [facility] Glucose [Mass/Vol] 114 mg/dL High 65-99 [facility] Outside Recordson 09-28-2023 Outside Records [id number] Normal [facility] URINE VOLUME AND TIMEon 09-10 TIME 24 h Normal [facility] Comment on above: Performed By: #### A PARUL 5124-3, 95205-3, 77756-8, 34181-2 #### [facility] ([id number]) [address] [address] [place] [address] TOTAL VOLUME 1860 mL Normal [facility] Comment on above: Performed By: #### A CA, 5124-3, 84016-6, 84189-3, 37743-6 #### [facility] ([id number]) [address], [facility] [address] [place] [address] COMPLETE BLOOD COUNTon 09-26 Erythrocyte distribution width (RBC) [Ratio] 13.1 % Normal 11.5-15.0 [facility] Comment on above: Performed By: #### A CA, 5124-3, 43170-5, 14058-6, 22156-1 #### [facility] ([id number]) [address] [address] Hematocrit (Bld) [Volume fraction] 38.6 % Normal 35-47 [facility] Comment on above: Performed By: #### A CA, 5124-3, 00909-1, 25704-9, 85485-5 #### [facility] ([id number]) [address] [address] Hemoglobin (Bld) [Mass/Vol] 13.2 g/dL Normal 11.7-15.5 [facility] Comment on above: Performed By: #### A CA, 5124-3, 96140-1, 74137-2, 30300-6 #### [facility] ([id number]) [address] [address] MCH (RBC) [Entitic mass] 30.7 pg Normal 27-34 [facility] Comment on above: Performed By: #### A CA, 5124-3, 33631-1, 90212-0, 72037-7 #### [facility] ([id number]) [address], [facility] [address] [place] [address] MCHC (RBC) [Mass/Vol] 34.1 g/dL Normal 32-36 [facility] Comment on above: Performed By: #### A CA, 5124-3, 31723-9, 11355-6, 13039-6 #### [facility] ([id number]) [address] [address] MCV (RBC) [Entitic vol] 90 fL Normal 80-100 [facility] Comment on above: Performed By: #### A CA, 5124-3, 86458-8, 70027-1, 82579-9 #### [facility] ([id number]) [address] [address] Platelet mean volume (Bld) [Entitic vol] 8.5 fL Normal 7-12 [facility] Comment on above: Performed By: #### A CA, 5124-3, 22670-8, 12019-1, 26193-4 #### [facility] ([id number]) [address] [address] Platelets (Bld) [#/Vol] 347 10*3/uL Normal 150-450 [facility] Comment on above: Performed By: #### A CA, 5124-3, 27432-5, 70291-7, 16976-7 #### [facility] ([id number]) [address] [address] RBC COUNT 4.29 X10E12/L Normal 3.80-5.20 [facility] Comment on above: Performed By: #### A CA, 5124-3, 47031-6, 89839-1, 30001-7 #### [facility] ([id number]) [address] [address] [place] [address] WBC (Bld) [#/Vol] 20.6 10*3/uL High 4.0-11.0 [facility] Comment on above: Performed By: #### A CA, 5124-3, 69891-5, 71747-9, 84571-4 #### [facility] ([id number]) [address], [address] [place] [address] COMPREHENSIVE METABOLIC PANE Yasmani 09-27-2023 Albumin [Mass/Vol] 3.6 g/dL Normal 3.2-5.3 [facility] Comment on above: Performed By: #### C MP, 2532-0, 3084-1, CBC, THYR, 24486-7 #### [facility] ([id number]) [address], [address] [place] [address] ALP [Catalytic activity/Vol] 80 U/L Normal 39-130 [facility] Comment on above: Performed By: #### C MP, 2532-0, 3084-1, CBC, THYR, 44694-7 #### [facility] ([id number]) [address], [address] [place] [address] ALT [Catalytic activity/Vol] 15 U/L Normal 0-31 [facility] Comment on above: Performed By: #### C MP, 2532-0, 3084-1, CBC, THYR, 04040-5 #### [facility] ([id number]) [address], [address] [place] [address] Anion gap [Moles/Vol] 13 mmol/L Normal 5-15 [facility] Comment on above: Performed By: #### C MP, 2532-0, 3084-1, CBC, THYR, 07239-3 #### [facility] ([id number]) [address], [address] [place] [address] AST [Catalytic activity/Vol] 25 U/L Normal 0-41 [facility] Comment on above: Performed By: #### C MP, 2532-0, 3084-1, CBC, THYR, 77821-0 #### [facility] ([id number]) [address], [address] [place] [address] Bilirubin [Mass/Vol] 0.3 mg/dL Normal 0.3-1.2 [facility] Comment on above: Performed By: #### C MP, 2532-0, 3083-1, CBC, THYR, 49942-0 #### [facility] ([id number]) [address] [place] [address] Calcium [Mass/Vol] 8.9 mg/dL Normal 8.5-10.5 [facility] Comment on above: Performed By: #### C MP, 2532-0, 3083-1, CBC, THYR, 72678-9 #### [facility] ([id number]) [address] [place] [address] Chloride [Moles/Vol] 104 mmol/L Normal 98-109 [facility] Comment on above: Performed By: #### C MP, 2532-0, 3083-1, CBC, THYR, 66868-6 #### [facility] ([id number]) [address] [place] [address] CO2 [Moles/Vol] 17 mmol/L Low 22-32 [facility] Comment on above: Performed By: #### C MP, 2532-0, 3083-1, CBC, THYR, 41843-5 #### [facility] ([id number]) [address] [place] [address] Creatinine [Mass/Vol] 0.70 mg/dL Normal 0.40-1.00 [facility] Comment on above: Result Comment: METH OD TRACEABLE TO IDMS STANDARD Performed By: #### C MP, 2532-0, 4-1, CBC, THYR, 64768-1 #### [facility] ([id number]) [address] [place] [address] eGFR (CKD-EPI) NON-RACE DEPENDENT >90 Normal >59 [facility] Comment on above: Result Comment: Reported eGFR is based on the CKD-EPI 2020 equation that does not use a race coefficient. Performed By: #### C MP, 2532-0, 4-1, CBC, THYR, 94474-9 #### [facility] ([id number]) [address] [place] [address] Glucose [Mass/Vol] 93 mg/dL Normal 65-99 [facility] Comment on above: Performed By: #### C EUSEBIA, 2532-0, 3083-1, CBC, THYR, 50209-0 #### [facility] ([id number]) [address] [address] [place] [address] Potassium [Moles/Vol] 3.9 mmol/L Normal 3.5-5.0 [facility] Comment on above: Performed By: #### C EUSEBIA, 2532-0, 3083-1, CBC, THYR, 61369-8 #### [facility] ([id number]) [address] [address] [place] [address] Protein [Mass/Vol] 6.8 g/dL Normal 6.0-8.0 [facility] Comment on above: Performed By: #### C MP, 2532-0, 3083-1, CBC, THYR, 11897-3 #### [facility] ([id number]) [address] [address] [place] [address] Sodium [Moles/Vol] 134 mmol/L Normal 134-146 [facility] Comment on above: Performed By: #### C MP, 2532-0, 3084-1, CBC, THYR, 47490-3 #### [facility] ([id number]) [address] [address] [place] [address] Urea nitrogen [Mass/Vol] 11 mg/dL Normal 5-23 [facility] Comment on above: Performed By: #### C MP, 2532-0, 3084-1, CBC, THYR, 30776-5 #### [facility] ([id number]) [address] [place] [address] DRUG SCREEN, URINEon 024 AMPHETAMINE/METHAM P Negative Normal NEG [facility] Comment on above: Result Comment: AMPH /METH screening cut off = 1000 ng/mL Performed By: #### U PCR, DSU #### [facility] ([id number]) [address] [place] [address] BARBITURATES Negative Normal NEG [facility] Comment on above: Result Comment: Lupe iturates screening cut off value = 200 ng/mL Performed By: #### U PCR, DSU #### [facility] ([id number]) [address] [place] [address] BENZODIAZEPINES Negative Normal NEG [facility] Comment on above: Result Comment: Jones odiazepines screening cut off value = 200 ng/mL Performed By: #### U PCR, DSU #### [facility] ([id number]) [address] [place] [address] CANNABINOIDS Negative Normal NEG [facility] Comment on above: Result Comment: Debra abinoids/THC screening cut off value = 50 ng/mL Performed By: #### U PCR, DSU #### [facility] ([id number]) [address] [place] [address] COCAINE METABOLITE Negative Normal NEG [facility] Comment on above: Result Comment: Coca ine screening cut off value = 300 ng/mL Performed By: #### U PCR, DSU #### [facility] ([id number]) [address] [place] [address] ECSTASY Positive Abnormal NEG [facility] Comment on above: Result Comment: Inte rference from Buproprion or Labetalol may cause a positive result, confirmation available upon request. Ecstasy screening cut off value = 500 ng/mL This report is intended for use in clinical monitoring or management of patients. Performed By: #### U PCR, DSU #### [facility] ([id number]) [address], [address] [place] [address] METHADONE Negative Normal NEG [facility] Comment on above: Result Comment: Meth adone screening cut off value = 300 ng/mL. Performed By: #### U PCR, DSU #### [facility] ([id number]) [address], [address] [place] [address] OPIATES Negative Normal NEG [facility] Comment on above: Result Comment: Opia arsenio screening cut off value = 300 ng/mL NOTE: This test is used for the detection of codeine, hydrocodone (>1000 ng/mL), morphine and hydromorphone (>900 ng/mL) in urine. Performed By: #### U PCR, DSU #### [facility] ([id number]) [address], [address] [place] [address] OXYCODONE Negative Normal NEG [facility] Comment on above: Result Comment: Oxyc odone screening cut off value = 300 ng/mL NOTE: This test is used for the detection of oxycodone and oxymorphone in urine. Performed By: #### U PCR, DSU #### [facility] ([id number]) [address], [address] [place] [address] PHENCYCLIDINE Negative Normal NEG [facility] Comment on above: Result Comment: Phen cyclidine screening cut off value = 25 ng/mL Performed By: #### U PCR, DSU #### [facility] ([id number]) [address] [place] [address] Glucose Glucometer (BldC) [M ass/Vol]on 09-27-2023 Glucose [Mass/Vol] 115 mg/dL High 65-99 [facility] LDH [Catalytic activity/Vol] on 09-27-2023 LDH 202 U/L Normal 100-235 [facility] Comment on above: Performed By: #### A CA, 5124-3, 32983-9, 88445-0, 74966-5 #### [facility] ([id number]) [address], [address] [address] PROTEIN CREAT RATIOon 2023 RANDOM URINE PROTEIN 350 mg/L High <120 [facility] Comment on above: Performed By: #### U PCR, DSU #### [facility] ([id number]) [address], [address] [address] U/PRO/BRACELET MAKER NOVELTY RATIO CALC 0.23 High <0.2 [facility] Comment on above: Result Comment: Neph rotic Syndrome is associated with ratios >3.5 Performed By: #### U PCR, DSU #### [facility] ([id number]) [address], [address] [address] URINE CREATININE,RDM 153.63 mg/dL Normal [facility] Comment on above: Performed By: #### U PCR, DSU #### [facility] ([id number]) [address], [address] [address] RESP PATHOGENS/PFCO-SpY-5nq 09-27-2023 Respiratory pathogens DNA and RNA panel [...] CoV 2 Detected (qualifier value) NOTE The [employer] Respiratory Panel 2.1 (RP2.1) is a multiplexed [...] a patient with possible respiratory tract infection. [facility] Comment on above: Performed By: #### A NM, 5124-3, 16000-2, 85597-0, 71107-6 #### [facility] ([id number]) [address] [place] [address] STREP B SCREEN CULTUREon S. agalactiae Org specific cx Ql (Vag+Rectum) CULTURE RESULTS POSITIVE FOR GROUP B STREPTOCOCCUS BY NUCLEIC ACID AMPLIFICATION : Group B streptococci remain universally susceptible to penicillin, ampicillin, and cefazolin. Resistance to clindamycin can occur. Please contact laboratory within 48 hr if clindamycin susceptibility testing is needed. Normal [facility] Comment on above: Performed By: #### A PARUL, 5124-3, 57334-4, 15574-8, 52933-2 #### [facility] ([id number]) [address], [address] [address] T. pallidum IgG+IgM IA Ql (S )on 09-27-2023 Syphilis Total <0.2 Normal 0.0-0.8 [facility] Comment on above: Result Comment: NON REACTIVE No serologic evidence of infection to Treponema pallidum (syphilis). Repeat testing may be considered in patients with suspected acute or primary syphilis in 2 to 4 weeks. Performed By: #### A PARUL, 5124-3, 13841-1, 61619-7, 51374-2 #### [facility] ([id number]) [address], [address] [address] THYROID PROFILEon 09-27-2023 Free T4 [Mass/Vol] 0.59 ng/dL Low 0.61-1.60 [facility] Comment on above: Performed By: #### A PARUL, 5124-3, 08563-1, 16671-2, 62117-3 #### [facility] ([id number]) [address] [facility], [address] [address] TSH 1.86 uIU/mL Normal 0.49-4.67 [facility] Comment on above: Performed By: #### A PARUL, 5124-3, 23246-8, 15470-8, 17195-8 #### [facility] ([id number]) [address] [place] [address] URIC ACIDon 09-27-2023 Urate [Mass/Vol] 7.0 mg/dL Normal 2.6-7.2 [facility] Comment on above: Performed By: #### A CA, 5124-3, 24659-9, 93317-7, 65676-2 #### [facility] ([id number]) [address] [place] [address] URINALYSISon 09-27-2023 Bilirubin Ql (U) Negative Normal NEG [facility] Comment on above: Performed By: #### U PCR, DSU #### [facility] ([id number]) [address] [place] [address] BLOOD/HGB MODERATE Abnormal NEG [facility] Comment on above: Performed By: #### U PCR, DSU #### [facility] ([id number]) [address], [address] [place] [address] Color (U) YELLOW Normal YELLOW [facility] Comment on above: Performed By: #### U PCR, DSU #### [facility] ([id number]) [address], [address] [place] [address] Glucose Ql (U) Negative Normal NEG [facility] Comment on above: Performed By: #### U PCR, DSU #### [facility] ([id number]) [address], [address] [place] [address] Hyaline casts LM Ql (Urine sed) 3 /lpf High 0-2 [facility] Comment on above: Performed By: #### U PCR, DSU #### [facility] ([id number]) [address], [address] [place] [address] Ketones Ql (U) 20 mg/dL Abnormal NEG [facility] Comment on above: Performed By: #### U PCR, DSU #### [facility] ([id number]) [address] [facility], [address] [place] [address] Leukocyte esterase Test strip Ql (U) Negative Normal NEG [facility] Comment on above: Performed By: #### U PCR, DSU #### [facility] ([id number]) [address] [place] [address], [address] [place] [address] MUCOUS PRESENT Abnormal NONE [facility] Comment on above: Performed By: #### U PCR, DSU #### [facility] ([id number]) [facility], [address] [place] [address] Nitrite Ql (U) Negative Normal NEG [facility] Comment on above: Performed By: #### U PCR, DSU #### [facility] ([id number]) [address] [place] [address], [address] [place] [address] pH (U) 5.5 [pH] Normal 5.0-8.5 [facility] Comment on above: Performed By: #### U PCR, DSU #### [facility] ([id number]) [address] [place] [address], [address] [place] [address] Protein Ql (U) 30 mg/dL Abnormal NEG [facility] Comment on above: Performed By: #### U PCR, DSU #### [facility] ([id number]) [address] [place] [address], [address] [place] [address] R.B.CELLS 53 /hpf High 0-5 [facility] Comment on above: Performed By: #### U PCR, DSU #### [facility] ([id number]) [address] [place] [address], [address] [place] [address] Specific gravity (U) [Rel density] 1.027 Normal 1.003-1.035 [facility] Comment on above: Performed By: #### U PCR, DSU #### [facility] ([id number]) [address] [place] [address] SQUAMOUS EPITHELIUM 1 /hpf Normal 0-5 [facility] Comment on above: Performed By: #### U PCR, DSU #### [facility] ([id number]) [address] [place] [address] TURBIDITY CLEAR Normal CLEAR [facility] Comment on above: Performed By: #### U PCR, DSU #### [facility] ([id number]) [address] [place] [address] Urobilinogen (U) [Mass/Vol] mg/dL Normal <1.1 [facility] Comment on above: Performed By: #### U PCR, DSU #### [facility] ([id number]) [address], [address] [place] [address] W.B.CELLS 3 /hpf Normal 0-5 [facility] Comment on above: Performed By: #### U PCR, DSU #### [facility] ([id number]) [address], [address] [address] URINE CULTUREon 09-27-2023 Bacteria identified Cx Nom (U) SPECIMEN NOTES URINE RECEIVED WITHOUT PRESERVATIVE CULTURE RESULTS NO GROWTH AT <1000 CFU/mL Normal [facility] Comment on above: Performed By: #### A CA, 5124-3, 36669-4, 45747-0, 30195-0 #### [facility] ([id number]) [address], [address] [place] [address] No Panel Informationon 08-31 Unlisted lab test see scanned report [facility] Urinalysis macro (dipstick) panel (U)on 08-18-2023 Bilirubin, UA Negative Negative - 4(70) +++ mg/dL [facility] Healthcare Blood, UA Negative Negative - 50 Izaiah/mcL [facility] Clarity, UA Clear [facility] Color, UA Yellow [facility] Glucose, UA Negative Negative - 2000(110) ++++ mg/dL [facility] Interpretation and review of laboratory results Abnormal [facility] Ketones, UA Negative Negative - 160(16) ++++ mg/dL [facility] Leukocytes, UA Trace Negative - 500+++ Susy/mcL [facility] Nitrite, UA Negative Negative - Positive [facility] pH, UA 7.0 5 - 9 [facility] Protein, UA Trace Negative - 1999(20) ++++ mg/dL [facility] Spec Grav, UA 1.025 1 - 1.03 [facility] Urobilinogen, UA 0.2 0.2 - 12 mg/dL [facility] [place] B Abon 08-15-2023 Blanquita akhtar. B1 <1:10 Normal <1:10 [facility] Comment on above: Performed By: #### U RTPRT #### [address] [address] [employer] House Operator Helper: MD Blanquita Barton. B2 <1:10 Normal <1:10 [facility] Comment on above: Performed By: #### U RTPRT #### [address] [address] [employer] House Operator Helper: MD Blanquita Barton. B3 <1:10 Normal <1:10 [facility] Comment on above: Performed By: #### U RTPRT #### [facility] [employer] [address] [place] [address] [employer] Operator Helper: MD Blanquita Barton. B4 1:40 Normal <1:10 [facility] Comment on above: Performed By: #### U RTPRT #### [facility] [address] [place] [address] [employer] Operator Helper: MD Blanquita Barton. B5 1:20 Normal <1:10 [facility] Comment on above: Performed By: #### U RTPRT #### [address] [id number] [employer] Operator Helper: Gonzalo Cain MD Cox[place]ackie tp. B6 <1:10 Normal <1:10 [facility] Comment on above: Result Comment: (NOT E) INTERPRETIVE INFORMATION: Coxsackie B Virus Single positive antibody titers of greater than or equal to 1:80 may indicate past or current infection. Sero- conversion or an increase in titers between acute and convalescent sera of at least fourfold is considered strong evidence of current or recent infection. Performed By: [facility] [address] [place], [place] [id number] Superintendent Stevedoring: Nikita Pantoja MD, PhD CLIA Number: [id number] Performed By: #### U RTPRT #### [address] [address] [employer] House Operator Helper: Gonzalo Cain MD Protein S Ag, Freeon 024 Protein S Ag, Free 61 % Normal 55-123 [facility] Comment on above: Result Comment: (NOT [...] reference intervals for this test in the [facility] Test Directory (QuadROI). Performed By: [facility] [facility] [address] [place], [place] [id number] Superintendent Stevedoring: Nikita Pantoja MD, PhD CLIA Number: [id number] Performed By: #### U RTPRT #### [address] [id number] [employer] Operator Helper: Gonzalo Cain MD Protein S, Antigenicon 08-14 Protein S, Antigenic 129 % High 63-126 [facility] Comment on above: Result Comment: (NOT E) INTERPRETIVE INFORMATION: Protein S, Total Antigen Patients on warfarin may have decreased protein S values. Patients should be off warfarin therapy for two weeks for accurate measurement of protein S. Access complete set of age- and/or gender-specific reference intervals for this test in the [facility] Test Directory (QuadROI). Performed By: [facility] [address] [place] [address] Superintendent Stevedoring: Nikita Pantoja MD, PhD CLIA Number: [id number] Performed By: #### U RTPRT #### [facility] [address] [place] [address] [employer] House Operator Helper: Gonzalo Cain MD Antithrombin III Valentina 08-12 Antithrombin III Act 114 % Normal 83-122 [facility] Comment on above: Result Comment: Patients receiving Hirudin may have a falsely decreased Antitrombin III Activity. Performed By: #### U RTPRT #### [facility] [address] [place] [address] [employer] House Operator Helper: Gonzalo Cain MD Lupus Anticoagulanton 2023 Dilute Madhuri Viper Negative Normal NLUP [facility] Comment on above: Performed By: #### L UPPRO #### [facility] [employer] [address] [place] [address] [employer] Operator Helper: Gonzalo Cain MD Protein C Activityon 024 Protein C Activity 86 % Normal >80 [facility] Comment on above: Result Comment: Patients [...] VIII. Performed By: #### U RTPRT #### [address] [address] [employer] House Operator Helper: Gonzalo Cain MD Protein S Activityon 024 Protein S Activity 54 % Low 59-130 [facility] Comment on above: Result Comment: Patients [...] VIII. Performed By: #### U RTPRT #### [employer] [address] [place], [place] [id number] Tank House Operator Helper: Gonzalo Cain MD Factor V Mutationon 08-11-19 24 F 5 SPECIMEN Whole Blood Normal [facility] Comment on above: Performed By: #### A PARVP, AF5MUT, APRTSF, ACOXAB, ACOXA9, APTMUT, AMTHFR, APROTS #### [employer] [address] [place] [address] Tank House Operator Helper: Arben Carrington MD #### AT3A, PROSAC, HOCYS, ACARDA, FT4, PROCAC, TSH #### [employer] [facility] [place], [place] [address] Tank House Operator Helper: Gonzalo Cain MD FACTOR 5 MUTATION Negative Normal [facility] Comment on above: Result Comment: (NOT E) Indication for testing: Assess genetic risk for thrombosis. NEGATIVE: The factor V Leiden variant, c.1601G>A; p.[id number], was not detected. This does not exclude [...] function in the F5 gene variant c.1601G>A (p.Oxj191Flu). Legacy nomenclature: [id number] (1691G>A) CLINICAL SENSITIVITY: 20-50 percent of individuals with an isolated VTE have the FVL variant. METHODOLOGY: Polymerase chain reaction and fluorescence monitoring. ANALYTICAL SENSITIVITY AND SPECIFICITY: 99 percent. LIMITATIONS: Diagnostic errors can occur due to rare sequence variations. F5 gene mutations, other than p.Wle133Qhw, will not be detected. This test was developed and its performance characteristics determined by [employer]. It has not been cleared or approved by the [place] Food and Drug Administration. This test was performed in a CLIA certified laboratory and is intended for clinical purposes. Counseling and informed consent are recommended for genetic testing. Consent forms are available online. Performed By: [employer] [address] [place] [address] Superintendent Stevedoring: Nikita Pantoja MD, PhD CLIA Number: [id number] Performed By: #### A PARVP, AF5MUT, APRTSF, ACOXAB, ACOXA9, APTMUT, AMTHFR, APROTS #### [employer] [address] [place] [address] Tank House Operator Helper: Arben Carrington MD #### AT3A, PROSAC, HOCYS, ACARDA, FT4, PROCAC, TSH #### [place] [id number] [place] [id number] Tank [employer] Operator Helper: Gonzalo Cain MD PT Mutation [id number] 08-11-19 24 PT [id number] VARIANT Negative Normal [facility] Comment on above: Result Comment: (NOT E) Indication for testing: Assess genetic risk for thrombosis. NEGATIVE: The Factor II, prothrombin A37654C mutation, was not detected. Other causes of [...] M.D., Ph.D. BACKGROUND INFORMATION: Prothrombin (F2) c.*97G>A (J60019J) Pathogenic Variant CHARACTERISTICS: The Factor II, c.*97G>A (K61953L) pathogenic variant is a common genetic risk [...] CAUSE: Homozygosity or heterozygosity for F2 c.*97G>A (V09156K). PATHOGENIC VARIANT TESTED: F2 c.*97G>A (C29585V). CLINICAL SENSITIVITY FOR VENOUS THROMBOSIS: Approximately 10 percent. METHODOLOGY: Polymerase chain reaction and fluorescence monitoring. ANALYTICAL SENSITIVITY AND SPECIFICITY: 99 percent. LIMITATIONS: Diagnostic errors can occur due to rare sequence variations. F2 gene variants, other than c.*97G>A (F91196R), will not be detected. This test was developed and its performance characteristics determined by [employer]. It has not been cleared or approved by the [place] Food and Drug Administration. This test was performed in a CLIA certified laboratory and is intended for clinical purposes. Counseling and informed consent are recommended for genetic testing. Consent forms are available online. Performed By: [employer] [address] [place] [address] Superintendent Stevedoring: Nikita Pantoja MD, PhD CLIA Number: [id number] Performed By: #### U RTPRT #### [address] [id number] Tank House Operator Helper: oGnzalo Cain MD PT PCR SPECIMEN Whole Blood Normal [facility] Comment on above: Performed By: #### U RTPRT #### [address] [id number] Tank House Operator Helper: Gonzalo Cain MD Coxsackie A9 Titeron 024 [place] A9 Titer <1:8 Normal <1:8 [facility] Comment on above: Result Comment: (NOT E) INTERPRETIVE INFORMATION: Coxsackie A Serotype 9 Titer Single positive antibody titers of greater than 1:32 may indicate past or current infection. Seroconversion or an increase in titers between acute and convalescent sera of at least fourfold is considered strong evidence of current or recent infection. Performed By: [facility] [address] [place] [address] Superintendent Stevedoring: Nikita Pantoja MD, PhD CLIA Number: [id number] Performed By: #### A PARVP, AF5MUT, APRTSF, ACOXAB, ACOXA9, APTMUT, AMTHFR, APROTS #### [address] [address] Tank House Operator Helper: Arben Carrington MD #### AT3A, PROSAC, HOCYS, ACARDA, FT4, PROCAC, TSH #### [address] [phone] Tank House Operator Helper: Gonzalo Cain MD MTHFR Gene Mutationon 2023 MTHFR 1286 A>C Mut Negative Normal [facility] Comment on above: Performed By: #### A PARVP, AF5MUT, APRTSF, ACOXAB, ACOXA9, APTMUT, AMTHFR, APROTS #### [facility] [address] [place] [address] Tank House Operator Helper: Arben Carrington MD #### AT3A, PROSAC, HOCYS, ACARDA, FT4, PROCAC, TSH #### [facility] [address] [place], [place] [id number] Tank House Operator Helper: Gonzalo Cain MD MTHFR 655C>T Mut Homozygous Normal [facility] Comment on above: Performed By: #### A PARVP, AF5MUT, APRTSF, ACOXAB, ACOXA9, APTMUT, AMTHFR, APROTS #### [facility] [address] [place] [address] Tank House Operator Helper: Arben Carrington MD #### AT3A, PROSAC, HOCYS, ACARDA, FT4, PROCAC, TSH #### [facility] [address] [place] [address] [id number] Tank House Operator Helper: Gonzalo Cain MD MTHFR Interpretation See Note Normal [facility] Comment on above: Result Comment: (NOT E) Indication for testing: Determine genetic contribution to hyperhomocysteinemia. Homozygous MTHFR c.665C>T: Two copies of the MTHFR gene variant c.665C>T (previously designated C677T) were detected; the c.1286A>C (previously designated B8158Y) variant was not detected. Homozygosity for the [...] has an effect on cardiovascular disease. The [employer] Practice Guidelines indicate [...] a contributing factor to hyperhomocysteinemia. Variants Tested: c.665C>T(p.Sju490Ebh) and c.1286A>C(p.Xza590Ipq). (legacy names C677T and D7011X, respectively). Clinical Sensitivity: Undefined; hyperhomocysteinemia is caused [...] developed and its performance characteristics determined by [facility]. It has not been cleared or approved by the [place] Food and Drug Administration. This test was performed in a CLIA certified laboratory and is intended for clinical purposes. Counseling and informed consent are recommended for genetic testing. Consent forms are available online. Performed By: [facility] [address] [place] [address] Superintendent Stevedoring: Nikita Pantoja MD, PhD CLIA Number: [id number] Performed By: #### A PARVP, AF5MUT, APRTSF, ACOXAB, ACOXA9, APTMUT, AMTHFR, APROTS #### [facility] [address] [place] [address] Tank House Operator Helper: Arben Carrington MD #### AT3A, PROSAC, HOCYS, ACARDA, FT4, PROCAC, TSH #### [address] [phone] Tank House Operator Helper: Gonzalo Cain MD MTHFR SPECIMEN Whole Blood Normal [facility] Comment on above: Performed By: #### A PARVP, AF5MUT, APRTSF, ACOXAB, ACOXA9, APTMUT, AMTHFR, APROTS #### [facility] [address] [place] [address] Tank House Operator Helper: Arben Carrington MD #### AT3A, PROSAC, HOCYS, ACARDA, FT4, PROCAC, TSH #### [address] [address] Tank House Operator Helper: Gonzalo Cain MD Parvovirus B19 Panelon 08-10 Parvovirus IgG B19 0.18 IV Normal <=0.90 [facility] Comment on above: Result Comment: (NOT [...] APTMUT, AMTHFR, APROTS #### [facility] [address] [place] [address] Tank House Operator Helper: Arben Carrington MD #### AT3A, PROSAC, HOCYS, ACARDA, FT4, PROCAC, TSH #### [address] [phone] Tank House Operator Helper: Gonzalo Cain MD Parvovirus IgM B19 0.24 IV Normal <=0.90 [facility] Comment on above: Result Comment: (NOT E) INTERPRETIVE INFORMATION: Parvovirus B19 Antibody, IgM EFFECTIVE 05/21/2023 REFERENCE INTERVAL CHANGE Due to reagent kit general counsel recall, an alternate kit has been validated and implemented by [facility]. The following Reference Interval applies [...] levels of specific IgM antibodies. Performed By: [facility] [address] [place] [address] Superintendent Stevedoring: Nikita Pantoja MD, PhD CLIA Number: [id number] Performed By: #### A PARVP, AF5MUT, APRTSF, ACOXAB, ACOXA9, APTMUT, AMTHFR, APROTS #### [facility] [address] [place] [address] Tank House Operator Helper: Arben Carrington MD #### AT3A, PROSAC, HOCYS, ACARDA, FT4, PROCAC, TSH #### [place] [address] [place] [address] Tank House Operator Helper: Gonzalo Cain MD Cardiolipin Ab G,A,Mon 08-08 Anticardiolipin IgG 0.7 GPL Normal 0.0-10.0 [facility] Comment on above: Result Comment: Reference Range: <10.0 Negative 10.0-40.0 Equivocal >40.0 Positive Performed By: #### A PARVP, AF5MUT, APRTSF, ACOXAB, ACOXA9, APTMUT, AMTHFR, APROTS #### [facility] [address] [place] [address] Tank House Operator Helper: Arben Carrington MD #### AT3A, PROSAC, HOCYS, ACARDA, FT4, PROCAC, TSH #### [address] [address] Tank House Operator Helper: Gonzalo Cain MD Anticardiolipin IgA 1.9 APL Normal 0.0-14.0 [facility] Comment on above: Result Comment: Reference Range: <14.0 Negative 14.0-20.0 Equivocal >20.0 Positive When results are Equivocal, it is recommended to retest after 4-6 weeks. Performed By: #### A PARVP, AF5MUT, APRTSF, ACOXAB, ACOXA9, APTMUT, AMTHFR, APROTS #### [facility] [address] [place] [address] Tank House Operator Helper: Arben Carrington MD #### AT3A, PROSAC, HOCYS, ACARDA, FT4, PROCAC, TSH #### [address] [address] Tank House Operator Helper: Gonzalo Cain MD Anticardiolipin IgM 1.0 MPL Normal 0.0-10.0 [facility] Comment on above: Result Comment: Reference Range: <10.0 Negative 10.0-40.0 Equivocal >40.0 Positive Performed By: #### A PARVP, AF5MUT, APRTSF, ACOXAB, ACOXA9, APTMUT, AMTHFR, APROTS #### [facility] [address] [place] [address] Tank House Operator Helper: Arben Carrington MD #### AT3A, PROSAC, HOCYS, ACARDA, FT4, PROCAC, TSH #### [facility] [employer] [address] [place] [address] Tank House Operator Helper: Gonzalo Cain MD Homocysteineon 08-06-2023 Homocysteine 5.4 umol/L Normal <15.0 [facility] Comment on above: Performed By: #### A PARVP, AF5MUT, APRTSF, ACOXAB, ACOXA9, APTMUT, AMTHFR, APROTS #### [facility] [address] [place] [address] Tank House Operator Helper: Arben Carrington MD #### AT3A, PROSAC, HOCYS, ACARDA, FT4, PROCAC, TSH #### [facility] [address] [place] [address] Tank House Operator Helper: Gonzalo Cain MD Lupus Anticoagulanton 2023 aPTT Coag (Bld) [Time] 25.4 s Normal 23.0-36.5 [facility] Comment on above: Result Comment: IV Heparin Therapy Range: 66.0-92.0 sec Performed By: #### L UPPRO #### [address] [address] Tank House Operator Helper: Gonzalo Cain MD INR Coag (PPP) [Relative time] 1.0 {INR} Normal [facility] Comment on above: Result Comment: Therapeutic Range: Moderate Anticoagulant Intensity: INR = 2.0-3.0 High Anticoagulant Intensity: INR = 2.5-3.5 Performed By: #### L UPPRO #### [facility] [address] [place] [address] Tank House Operator Helper: Gonzalo Cain MD PT Coag (PPP) [Time] 13.0 s Normal 11.7-14.9 [facility] Comment on above: Performed By: #### L UPPRO #### [facility] [address] [place] [address] [id number] Tank House Operator Helper: Gonzalo Cain MD Protein,Tot,Hanahan Uron 2023 Creatinine [Mass/Vol] 221.0 mg/dL High 28.0-217.0 [facility] Comment on above: Performed By: #### U RTPRT #### [address] [address] Tank House Operator Helper: Gonzalo Cain MD Tot Prot. Conc. 15 mg/dL Normal [facility] Comment on above: Result Comment: No n ormal range established. Performed By: #### U RTPRT #### [address] [address] Tank House Operator Helper: Gonzalo Cain MD TP/Cre Ratio 0.07 Normal [facility] Comment on above: Performed By: #### U RTPRT #### [address] [address] Tank House Operator Helper: Gonzalo Cain MD Thyroid Stim. Horm.on 2023 Thyroid Stim. Horm. 1.89 uIU/mL Normal 0.30-5.00 [facility] Comment on above: Performed By: #### A PARVP, AF5MUT, APRTSF, ACOXAB, ACOXA9, APTMUT, AMTHFR, APROTS #### [address] [address] Tank House Operator Helper: Arben Carrington MD #### AT3A, PROSAC, HOCYS, ACARDA, FT4, PROCAC, TSH #### [address] [address] Tank House Operator Helper: Gonzalo Cain MD Thyroxine, Freeon 08-06-2023 Thyroxine, Free 1.1 ng/dL Normal 0.9-1.7 [facility] Comment on above: Performed By: #### A PARVP, AF5MUT, APRTSF, ACOXAB, ACOXA9, APTMUT, AMTHFR, APROTS #### [facility] [address] [place] [address] Tank House Operator Helper: Arben Carrington MD #### AT3A, PROSAC, HOCYS, ACARDA, FT4, PROCAC, TSH #### [facility] [address] [place] [address] Tank House Operator Helper: Gonzalo Cain MD ANTI CARDIOLIPIN AB IGG IGA IGMon 08-04-2023 NATHAN IgA <2.0 Normal 0-19.9 [facility] Comment on above: Performed By: #### A CA, 5124-3, 88183-4, 45101-1, 16337-5 #### [facility] ([id number]) [address], [address] [place] [address] NATHAN IgG <1.6 Normal 0-19.9 [facility] Comment on above: Performed By: #### A CA, 5124-3, 05130-0, 30268-8, 38525-8 #### [facility] ([id number]) [address], [address] [place] [address] NATHAN IgM <1.5 Normal 0-19.9 [facility] Comment on above: Performed By: #### A CA, 5124-3, 30306-1, 11007-7, 43710-8 #### [facility] ([id number]) [address], [address] [place] [address] Anti cardiolipin AB IgG IgA IgMon 08-04-2023 Cardiolipin IgA IA Qn (S) [facility] Cardiolipin IgG IA Qn (S) [facility] Cardiolipin IgM IA Qn (S) [facility] CMV IgG IA Qnon 08-04-2023 Interpretation and review of laboratory results Abnormal [facility] CYTOMEGALOVIRUS IgG >8.0 High <0.9 [facility] Comment on above: Result Comment: Interpretation-------- <0.9 Negative 0.9 - 1.0 Equivocal >1.0 Positive Performed By: #### A PARUL, 5124-3, 14535-3, 51672-8, 49320-4 #### [facility] ([id number]) [address] [place] [address], [address] [address] CMV IgMon 08-04-2023 CMV IgM IA Ql [facility] Comment on above: Interpretation-------- <0.9 Negative 0.9 - 1.0 Equivocal >1.0 Positive NOTE The following results were obtained with the [employer] [address] ToRC IgM test. Results obtained from other [employer]'s assay methods may not be used interchangeably. CMV IgM IA Qlon 08-04-2023 [facility] CYTOMEGALOVIRUS IgM <0.2 Normal <0.9 [facility] Comment on above: Result Comment: Interpretation-------- <0.9 Negative 0.9 - 1.0 Equivocal >1.0 Positive NOTE The following results were obtained with the [employer] [facility] ToRC IgM test. Results obtained from other [employer]'s assay methods may not be used interchangeably. Performed By: #### A PARUL, 5124-3, 82633-0, 04290-5, 33353-8 #### [facility] ([id number]) [address] [place] [address], [address] [place] [address] Cytomegalovirus antibody, Ig Blaze 08-04-2023 CMV IgG IA Qn High [facility] Comment on above: Interpretation-------- <0.9 Negative 0.9 - 1.0 Equivocal >1.0 Positive Syphilis Total(Unknown Syphi lis Status)on 08-04-2023 T. pallidum IgG+IgM IA Ql (S) [facility] Comment on above: NON REACTIVE No serologic evidence of infection to Treponema pallidum (syphilis). Repeat testing may be considered in patients with suspected acute or primary syphilis in 2 to 4 weeks. T. gondii IgM IA Qlon 2023 [facility] TOXOPLASMA IGM <0.2 Normal <0.9 [facility] Comment on above: Result Comment: Interpretation-------- <0.9 Negative 0.9 - 1.0 Equivocal >1.0 Positive NOTE The following results were obtained with the [employer] [facility] ToRC IgM test. Results obtained from other [employer]'s assay methods may not be used interchangeably. Performed By: #### A PARUL 5124-3, 31994-6, 05847-5, 96033-0 #### [facility] ([id number]) [address] [place] [address], [address] [address] T. pallidum IgG+IgM IA Ql (S )on 08-04-2023 [facility] Syphilis Total <0.2 Normal 0.0-0.8 [facility] Comment on above: Result Comment: NON REACTIVE No serologic evidence of infection to Treponema pallidum (syphilis). Repeat testing may be considered in patients with suspected acute or primary syphilis in 2 to 4 weeks. Performed By: #### A PARUL, 5124-3, 97574-9, 64323-0, 52226-9 #### [facility] ([id number]) [address] [place] [address], [address] [place] [address] Toxoplasma IgMon 08-04-2023 T. gondii IgM IA Ql A1 NINF - 0.9 A1 [facility] Comment on above: Interpretation-------- <0.9 Negative 0.9 - 1.0 Equivocal >1.0 Positive NOTE The following results were obtained with the [employer] [facility] ToRC IgM test. Results obtained from other [employer]'s assay methods may not be used interchangeably. dRVVT/dRVVT.excess phospholi pid Coag (PPP) [Ratio]on 08-04-2023 [facility] Negative Normal [facility] Comment on above: Performed By: #### 5 0410-0 #### [facility] ([id number]) [address] [place] [address], [address] [place] [address] dRVVT excess phospholipid Coag Ql (PPP) Negative [facility] Outside Recordson 07-08-2023 Outside Records [id number][facility] Rad - Ultrasound Report [id number]#[facility] 06-01-2023 Outside Records [id number]#[facility] Rad - Ultrasound Reporton Rad - Ultrasound Report [id number]#1.00[facility] Coding Summaryon 05-01-2023 Coding Summary HTMLBase 64 XmqoeiooQUb9aKh+PGhlYWQ+PE1F TFRxD16tcXRgtZ7mI0LJDHdBWarr NVHXLCsYSlWiikWtGE8gnZRaXHJk IC8+ZQ1eJBDaHuffvJXip8M2zIK8 D20lpz0bCKiwjAQ3RVInFgTnjolm p9selUp0WQpdXwijZvXp MNChkL66RHF6dK70Gn51bVXtnRNo a0bbzLe4VgXoXFDrYLM0mNwfYHzd e0OnPTXlC60ykPHza1M5 AGKxaZqzlSJgMzDdlRV0rZ3aJQxz ywhft6hiwopvIdv1hf66jDGgh1F9 hWY4G6OfitE7BBJvwGKm NwtipIAVvD1kbhkkd2seyqinTfKq YMKoWEz6XWd0BDSqyTesKbHoMP87 TLD6VNRardYyN0BlANAw xMufCpA3t3P0Ip4HA7GRWbspF9GW TUFSWTwvdGQ+OL53aw14L3NrMlbt Wzd0RIJlPJI9uMJ6vH7k IPAhUOtmd5V2qWP9X5QucxBrjl6j z1xeZMTrKPksZ57snZNqj3E7VUZf kSA6UZRfpAdoCeJudB17 Oyc+NRDkfFmyv4UaFrumz8pkx0hg xUa6BsluZBEtjpKvfBmqZUV6b7Yz Kv9jHBQnsED8xBC5oE0p QeViYuX0VZtsI197IdZqjCJeZufm X55uG8DztVZ+CQJhKtv1ITCrhHou CW5gD5HwXTMenyvytUPd zIhhQL0gCDMnwyjhVWXirR2pEEOt R7a3ZjPdYmI0LZqbA8BbHOWvuduy Im30nJ1fAzNkQlZ1QUbs S3JjaqI3GHFljKUoWKtqYCD8H00g i5N5VNKbOPVcZNK3oMH5pS9dsYrj bjogbGVmdDsgdmVydGlj MCtiIIsjI820HJLipBnaZdQeQFuz ZyBEYXRlOiAgMTAvMjAvMjAyMzwv dGQ+UOFeZNK1kGjsFZOy aWCfEMrwCt0msVnrpIslPL5uGRAe niwyTBOaqZ8uDTZmxJVehCzkLV1m CGTxgwmqg024XbIxORV1 XMKyiVFcS7LcoI4vDzXtPDKeZJZl C3NtqQRnYZpkG932VHcmNdJ9RZHz ocWdL6MfPQPrdRdtQvI3 o9P9Or9Mb9LcgpsqF0DkoYOrLiZp OmotSQq2I9MhFysylUD+JS80FEAy KX99QEm1JPE2yXwsQKow AZFeV8BysT1uKpQjFBNvTLOyYxo+ PHRhYmxlIHdpZHRoPScxMDAlJyBz vLpnAT4uDo3hEUOiFUSq gFllkOJkWfYii9xaGRWmKCyeJN8s cTuwD7KjzGY8WIMvs4q1Dc98F36q R0EpzYO+PYHmkVP8qQL3 aZ7oNfWhKoC2JVnuP854IkNhjZDu Uhzwj7bzw6amyXh4DnY2PZGpnmOw kOkgSSL1r5LtWj87E01m BJnnFOKoDSExQPKlVVPnoWcvxt5l uI5hRv6+USJmkLV3eKS2yB2dBsRc VwH6PXaoN288UmGkxDIa Tpatc7zlf2vjnUf1BoWgQPOfzlAj tMpsYDZ1v8XzJp29X1FfhWfcx8Iw Bdl6cr14nAYon4X6gJB6 Q2JdZXVmknwxdJJipPsjQY7jSZQh onjyGTFomQ3gFARcN8a4AjLvPbA2 DJqnK7LcbjI6WPCbhWXn QCMmnWUAaH7ltknao3yjegcfLkNa CLYtAWq4UTi0LHIlrBjmDcUsSPD4 TnQ1JYV5qGWumM7wbKvu igfhsY5vYpp+EUN6yBDcbKXRAS9q OjwvdGQ+ESHiYNG3oQtoIZywYEEj iI6oSETlJ5l5DaCfVsW4 WRthF8TtirL8OUKivDJjZRKhkQMC dC6dayxff7raaermKiShPZGpSFg7 VAm2TLJdaMlhScPqJXJ7 UaR5PIA0dAJemW0gvLbbvyaftU7n Oyc+AootcRynFOK9BNg2M1HoJvh9 EGGnyIldYL6uuXRaQXmc Gm4muEorzUcyOO1kAAMtoqaja969 MoZxa3ihRTZmvRHyHDkrJDM5E78a p4F8KDPqZUFyQUG7aNP2 fW7msKhczkkfwSRmlOnaorPhaYyc IUvbDPqgE747AUSyfLcjYfTfDEt3 S8TsPqg8JZZjyVzrRV5s xTVbYHhjIw0sdKovxIjvRL9gVVUy oqbxe685HzShy5akMRKklQNaATpk YXY8F88bw5O5HFIjDGGr PAP8kWG0wY6fyVzvqwmklOTftKpc ieObmXynWLglNGkfK437OBSimSin ZlXutKn1Z5QcRud0ONHr wOkaGH6qaKYzLRpsCg3ctNgfxHzw HU1aLINcmdqln196GlXkb6pzGYUm mXXbQHydAQP6X94ni0T8 UPChXAAsYQG6fTU4qA1lyErlcjsz hPMvrAnnufBejDbcGZlbRKurO775 IHRvcDsnPlBhdGllbnQg ATgaVMn0C2GjLhyynJR+HO96YMCo SB43vJSycDNuq5wudYk0ZgFjQWPs DUP6oBciVRwos3UpNJAl O74asMXtp0T7OOMamWawuVBsYoDz kKL0rC8wXGkvzqttd9mwwlaaRpcq d2sqmz18zT61S27dHWjy DBDhHBRvGSCvXRTmwYwlrl8rpE3s Ii8+UOWjtXT0lXC9mC9hFDStEwD7 CXnpW121XnDqrDXpRrdo a2unu8wgdJh0BxX4POVynpOtyJke RRJ2a7PyYy36S62yGHrjEVWlDXXm QMVbGIVblIpqfy0vsV9k Ii8+HLDglDJ8bVS0nN8lEhOsAyZ7 VRfiS981KqYdfIZjYcfwS50tT8Oc dXA+FPXoDhg1NAEjhVvm ZK8dvNDsTXcrPq6eUZT3MqQwMgXf SYwbY9QyONYyjcvdduwrjCJ6ZWNk EDLyrP21Ro4jjGpvFXOa vVXSxK7jbrgru2thvybhQhChEBIb DDj2SNq0XGTcrTfoOuSaTHF5SbH1 XGI2cZFkiV3ifKbaaofx oC0uT6NsEBCwpistVi21gF1kBhNd AbS1GKdpSqw+D3zQR0mPZtmaHJNB W0CnAX3PMC39GA66yAMw s3S2fBH4K2YzXTRukozrhbtooFF5 OTIrOEGfvA19jTEbROvzLt6mc2R6 d979APIhGQAksF59Ea7q hWvzKAUqiZATyT7xlfffi2lvnpzq NdVsMDKiAUw7PLm1IPWdiNnpFjMy TWC0FkQ7UHI5jACzhZ8m qHjwvccykB2uJyw+MDMvMTIvMTk5 NzwvdGQ+VWWjSHS1tBstDIpfULQw qV9bZKLmD0q3IpOwLbY2 EDcyW5FqVBXaglalEm61bU1vNvMl BoO9GXxsU0BgbiE9PSAmhLRqXOxz MRH6L90go2M4ENViRWKn ECS4tOB4tQ1rnXiyzcmpwGJuzNwf lqEllUntHSakAZqzE663DCRkuJaz MiB9BXsiQVEiKZ11UZ85 iCZzg8Z7iIQ5O4KsPYXzhnbsfpwz bNN7XOZoHIUnqX77sRTjSHolXz8v o5W0z671FRCpPOYnxV27 At6toOddNCKvlKPOrX2yqhwen0qw crabZfYrOURqNJv1MSa1OARctWlk WlOtDHO7UfB9TEY5wQJd kI1imXkcsurznG8lSil+RkVNQUxF AU14TQ56aPGgg4A4tNT3X7KxVJXg ljfbfesmhZP5KKNnFJLs yM99xRLlVAtgWd8ep3Q7h882DAHi UOKgxY66Qv7ykLebWIVpwBDSmP2h crruf2gvgwhpBuHcQHPf GYg2SAh1LUAqqNdyJgUvJHI3EtW0 YUF5qTDtzC3bhJtncvktzN8aEhk+ G3I9G0NiSopvuAE+PC90 ELMgVO26aHOnjXXlp2ipfIp9OqYa WTPsBLX9aTlrOAnbx4BmFPBtX98e sARqk8W9IWAoiRwmnGSy ZlLryQB3gO0eWNfbkngzp6wkzfet Obgux8dufg47mU59P63tLHmvWJAb MJLfIWDuKLGzkLczsp8v fP3qFf9+GSNgxVP3qJD2xF2fBzYo TqR9XHsiS944KpJxxJViCsypk5yx g9pulHj9QdSbCCAaxkSy dEhoEMQ1z1NcXr64K34qKVwtDZGj OYZsMYJeQIUdiWqgau1kgX3fYc5+ CC5zk5cqvf34pT82lNY+ WTBmUMO4cCspOHnuOFDunV6bIWav HsL6QYPqAsIeaQ61nZUcIYmvLy6b lNwdwNmmSZ0cGQIegovw n230QeIsp6bsQXNbgSSjIQpgEFY0 A71ca8U3UCUdLBXrRAN3hFH6qD2v bGlnbjogbGVmdDsgdmVy pPwlFZiwKDphR062TLZdfIvfMxWi lEGpW5srjhOYIM0mIhwbbUG+PHRk APJ2pLdmTJyrAMWkwZ4m BYCsI1n2NcTlRgX4MRdxY9TrqsO6 RGTbiOUhOIQrnVGKgZ3xokgve8ng ejenEsRfFOTtIXw9LEo9 WGNdvVolKdAlDFR9RwV1BVM2mYDo xV9onEpzbptskX9eCbj+RklOOjwv dGQ+NPNuDZL3lEinZJvq GNWqcS0lBXMgZ4z9ZkDwNaR2FGhr V6QinfH0WUDhjKSqAKYhhFWHnS9b bsqzo8orlocbSjFoRQZq JCh9ICs8MLHjmPrpRuSnFLS4DnQ4 RHU9wHHtsE7xlXgvijyrpE2eWot+ TVJOOjwvdGQ+PHRkIHN0 mUfhBRpxXXMfkI6bXNTtO6m5LrWf ChA4CFdpC8FuilB5DKZqaKZtNLFj vGFAuO1kndovt5xselie GgHwROLzJSm4VLb8XSTxbLqlWtRo GPZ1SvY8JVT2lINzeE8cpNgbajkq wF2qEoe+IDA1QCX1OJ20 VR07L0QxNulzmYKycUH+PHRhYmxl ZQhyLCNuBLdvTQMxAkNbgIbeLF9l Ii1tNXRlNYFbgZcdoARa OiB (more content not included)... [facility] Coding Summary HTMLBase 64 XsyzkkgiDYu3oEs+PGhlYWQ+PE1F IEXeL67mhHJpoI1wX3KVYIxXPmpa YVLCMUsJTvSiovBxZK6bdIUrHUCj IC8+ZR7tMNPfLtcnrKJvw8W9aWV1 N97bqi6mUVvqtML1VMIpHyJrhvmn v2thfFn9TJsjAqmsWmMk YWOsyQ97HPX4iM74Rx05mIDsrBUt y5pzcRf8IlDjLCLiVGO9pJpwQJvy p3QvVUCyA86yrDCsk0E7 UWNeqHrraRFiOcHddTV6dP4nRZla ghmnt9ywmnlxVqe1zl39iKXpa8V6 uCH2Y4TbuiS8KNEgeRAw OxipnBFHtR0uyubfm3tgnwvwMxKp BMAbWLg2CWo3NOFkwFxxFeDxOH07 QAS2UVXhteAoT1TqUJIi jQwfWuT5v5R1Ur9AR0XXBkgsJ4TC TUFSWTwvdGQ+YD84uy85B8VbXbkd Hci7PIBzTNZ7mGV3mH9z EDRvGPhtq4D7eBG1X6YfwsKhvi1y b2ilMELeRMebA41bzRGeu6W4BXIt vAC9JUNogLnnVdUokB24 Oyc+JLHwuItyi9QeSfepe8mxa2hm pBz2JghbLYTyaoJgpUeoJPQ2j6Lu Wu0dRNNhpFM2eTO0pB6c ZwKnOmZ3HTwzS163MdOrbVWgUest E52hX9MimPY+CEKwHcz8EWOgfKyq NN4sV8GlTJZojgfesSRo zLejVG8sULElbietNAOiuJ5cIUVi X7n3GvQdZsH6JMxgV9FhVCFwpsfo La05iC3uNeMzQyX6RRtk A4EyprQ1EEImqUOmHPetLDA8U86v j2J3EMUdOKLhSNS4pIH6aC3ocVjr bjogbGVmdDsgdmVydGlj LOwuCGvuS417NSAtlBnbFbKtWKer ZyBEYXRlOiAgMTAvMjAvMjAyMzwv dGQ+PCYlQGI1rHkxQEXl lNJjDLyzLe1dpLqotDwtAR6nGGWx ketkSJUzwR2eTFEgnRGycNbuTM2n RENwimqfy142FxQuYDY0 ICDmgKHsN3TofQ7mChNcFYCsIEDc H8LvoQYyTSkhM884QRmoJiT3NIBz ajPxG8LsWLHukXwpUvL8 g7R9Ih5Ge9VtjlkvF5IleYQsNyEz GnfcKHt9D9LiKcvmsAG+GV26TITi ZA93ODr2UDI7kWuiGDgo NGDdB9JfsC9mHdFhNKEnWROkGks+ PHRhYmxlIHdpZHRoPScxMDAlJyBz oKbkDD4qJw0fUQRoSDIj hUppvFRlKtBya4cxPXElQBszBX9m zCbxJ5HeqMN6QGHih4s4Bq97H21e I9SdfTC+WKEehPA6zTZ0 aF0fQbPiPoK1QTfsT976YzWpyEPp Hrgwt1pwp7xnhRe1KdY5SRWdfcNm uMelIZG3d1HnGw29R85l TNkyLZIlEIFsXTBjIIPbuNrqvi4t nP1eDk7+VQAesGL8cQO8mV1bRxNs IqD8AGqbS538LhPgwGUz Wupcg1lph8ojcLz7EmZbYISvsbGe cNokDLL1f6UnTk38M1GsuMgus8Cd Rtw7jo31oDYsg6T4kFX6 S7XfFBVlnhdfpGYotHtlYT2xGQCj zandKWOsvA4rNDVdF1f2GeAkEaW1 GUigC7VcnsO4ZEBcpHEl NLVgkPJTtE8ojbsko8nkqcnkQlVp UVWvMGq8DEi6TPYcdVcgQdGpRIN9 TiA2HCQ9wYQgqF0byLdp scgujA6qYtd+DRY6yKIneNTREC7m OjwvdGQ+ARAlZON8sKgpQNllJLMe cX3cJCPtH3d3DaUzBuC1 NXgiP9CzvvI8LHFoeVHeVUGpzEEI iI5dwdozt3lovhxhMjMiHYNmNWu4 VVh6CAWrsZauTgAlLHT2 LxR1HYE8iTKujM9qcGpkavnjnK1a Oyc+DlsrmXhhSHH9PBs6D2ZrBuu3 RIFogNltMT9giXNpHYek Mk2zbHfeoOdePO4kAIMspkdqe645 LoVje6twFOBbcRIoYOwlQPX9U85o d0A1EOTrZATwOVB0qHX2 nR2bcXmiwplioTClqYxuowIqoCov HUdhOVgrH896ALHuyQvsJyHtCAt5 W1HgBka2HPDblXsnED7p wZJaDNokYy7jtEodjOskKH1oMDXd ctxfj979DlHsc5eoTLBeoSSfOGvb FHG8G56gu0I9KJHdOWDu LJO5eQC7cV3cqVgbwmjcpFEcdSgp poNelThaJDbrHDphH365CXHlqXlt HuQhzLt0R7GoDgw7EDIq vUgzNJ0deWAzHAtqMs0haGypuOoq BQ2eSEAcxhnhw036GlEkq7lzCLVh bUMaUOaeDFD1J34du3C0 RWZyITLaQYG6bSY5vG9qjYvddgdi yWTipLpnrpFewZobXPviAOwrG852 IHRvcDsnPlBhdGllbnQg TGnqGCg6Z5UfGbekmZJ+AL88SKVc WJ55pWAqzEVqw1jojTn9RfAqRSGl CKX7tWgwCFayl5EwPWLk K43viRJpq0Q8BJSptEcraKJmOcQr xGP6yB5nRZunttrli3qybpcaJafo b0fubm64iC21Q93lDJuy OBRxQDJtUZQeAHCwuVhljx6ixT8x Ii8+OSPmoKI1nYQ5bG9vQRHgZsF8 PMhhD967FzLkwUYcAlvk v4kno7rjzXc3NyI6RJEvclChpGot BAT7j7LbJs06T14pYSosNILoZHYj AEEnXZMbyObfve5umV9h Ii8+CDGwnDU1gNU9bD1rYcUhWaS2 PWczS298YxNpdYLtZqauS79aC4Ci dXA+UYEnSwg9DLPzkYfn MP6jrIEjSCfgIz4rNYJ3JmXzEsFs UBniM5IuJSXdjhkatqfpxWH0VIAn LTYakU65Ts0ruMtxZTAo tMDFyV3vhewej7mmamsfBdWdNKXh ASo0IIl8TBUxoOylRcJgLDD4LjU6 VOK1zFQhyR3xrLvssuez cW7aO7HsYFHbchwiAj36wI6uWcSw IrZ6KElkDdt+C5gLM4yKVocxRMLG N7JjKF2OET26PW60oJSh j9L8sRS6M8XzQUHmnwawrajloIF0 UZAqTMZqhM11yDDiNKcoAi5ao6K9 p020BTLiOIBahA75Ey9h mBovKAZpcLAZgK0zbbula6mnesxh VvTjUVLjHQs2FVj9ITOxxRblWkFo RRZ8XuX4ZRO2jKQidU1n kMygbazzyZ0mVjr+MDMvMTIvMTk5 NzwvdGQ+TJEfBWX6wAbyDTjvUEUc qS1zVLLjJ4p5PsZiMjF2 EGveZ0YrAJDsikgoYp92cW4sCqVv BbG5HYmfX3VaqpV0YPHsvJToAWjz PZH8G64mi7Z2FVLyTCCx EYU5mSX2oE1mzCwfdctuxBNnnQph gbCijDhmZBeiYRllP752TQGvdSdv MvF6EQmaNMFjQX37WU10 iOLkp0G4kOK7C2GxWDQrrwnveexu yEG2ZFDiJEGouG92qUKdZMdmXn5i t2U0l148SEDmGJSluO55 Ez6wjLwjWTUfoZTBeL7ravfvw7hd jmfhYeDlUVNqXEw4YZh2GZXqyApm ZrAoXBD3JrB7GJX9iGXn iH9xrAvpeteeoF1rNoy+RkVNQUxF [id number] fcqhiwtkvFR7BHNuZVMl kW97oRTeMHthNl6ir6R8k804RRDy LDMmsX66We7ytOsnTWGqkLQJfF0n zjnxy6tfxxxfIuLpSKYg UYz5HYy2VYVohKbbPmAzDFK9DqN7 BDN5kOPgwS1naInsefwwuB7xJat+ Q4Q9H7SzEtchqYG+PC90 JYOnOB61aMNbuYEyw2dpbAc5UbUo HRKyUUK8uFarLSnrp6EgKVBuU67w sFVvk0L7CLOphNzjmMXc RuAwqEB7rH5dIUlajekeb4cfqbxp Rxugj1wkvj33dJ15T61mLXltFWFy XCVmFTKjPSRleCuuvl3g mD2iCu1+TQGdwVN0bZD3cW8gKeIh CuS5JIekJ093PsKqwTWfLsvpy3ar v3jojZs4DiAmFVGijgEn cYrjMSR6y9PsLc73Y61fDYzlUZKb LNTxTJMbSLSmzHdlkj8mqP0jHy5+ FJ4xw0wtxj00lN81tGP+ RSBfMRW9uHnrKLedGLAbuR6qQBrq FrD9VJEjNoCxoX41eNKpZKidMf2g qSfjcRsxIX6lXCXgdvnt v757HuSvh0edLRIzdYNlZHqfVMO5 E85uk3S0QGRkFNKlQWO0pTT0pP2b bGlnbjogbGVmdDsgdmVy wNsbTXbdKXqvO637WDWgvTnlJpSz zAXpD0gvcrQEFV0tQvnqwFC+PHRk TSZ1qEdsZSisLPZoqS9w WKBoZ5s6WaXzXgU4LTofW7MgheY8 HFEkiBZiJELqlLUNfI3dfmnuy8ly ogrgUpStUXDiDOa2KGq4 XEAbgIfvJgZiDWX8KlL1GJN6eCKs rM2jjCemmsdtrY6cNct+RklOOjwv dGQ+HXAeNHD5vPieUTem PLZqwT3jERMsI3r7YiSfBzY2VJbx Q4LrjpB9YQVznDBuOHPpxHRZtR6d ieqdu4vkzgltJqDrOLZe BNe3MLj0RUGbpVcgYxPyWVM5ZfC1 YOG2mAYkoW0cdVnpuooqeL7tTho+ TVJOOjwvdGQ+PHRkIHN0 bQruWImhFCCjgA8cQAVsE2i8DmJb CiH4CFqrN3NxsmD6YKNmsZLjCFBj aICFaI7flmcwu5hpgxph DbSuSYAjPCn8BWc7MEZohOsgQwMm IWH0NmD2LYW7gLGcuZ7waVjznbst wT0xAfx+FGS8PCT7HD21 FZ61E1WoHkibaIJnoFQ+PHRhYmxl DOjvDKSvCWtiMHCeVtEfbLcwUC0u Pp0eVJFtAUWzcBxrlCTa OiB (more content not included)... Normal [facility] Reminder Messageson 04-30-20 Reminder Messages - From: DINORAH GILBERT DO To: [facility] Clinical [place] ([facility]); Sent: 04/30/2023 07:53:33 EDT ! Show up: 04/30/2023 07:53:33 EDT Subject: Results Follow Up Actions: Call the ordering provider with results Due Date/Time: 05/01/2023 07:53:00 EDT Reminder Comments: looks good. no problems Results: Date Result Type Result Name 04/29/2023 13:59 Radiology US Thyroid From: Sindy Cormier ([facility] Clinical [place] ([facility])) To: DINORAH GILBERT DO; Sent: 04/30/2023 10:55:59 EDT Show up: 04/30/2023 10:55:00 EDT Subject: RE: Results Follow Up notified patient, patient stated she recently found out she is and that explains some of her symptoms as she had issues during her first . She is under care of her NIGHT FILLER and she will continue to follow up with the ENT referral that was placed. I will fax the US to [facility] for their records. From: DINORAH GILBERT DO To: [facility] Clinical [place] ([facility]); Sent: 04/30/2023 11:51:41 EDT Show up: 04/30/2023 11:51:00 EDT Subject: RE: Results Follow Up noted Normal [facility] MRI KNEE WO CONTRAST LEFTon 04-18-2017 MRI KNEE WO [facility]AST LEFT [facility] [address] [place] [id number] Patient Name: SISI CELIS : 1995Sex: FAge: Race: WhiteMRN: [id number]. Location: LPOPPatient Status: DVisit #: [id number] Date: 04/18/2017 8:15:00 AMCompleted Date: 04/18/2017 08:53 AMRequesting Provider: MORIAH BOND Attending Provider: Report Copy To: OLMAN VELA Signs & Symptoms: Internal derangement knee, leftHistory: Order in RIS, No FB per mother Auth # [id number] Valid 04/06/17-05/06/17. Auth scanned into RIS.Comments: Exam: MRI KNEE WO CONTRAST LEFTAccession #: [id number] MRI KNEE WO CONTRAST LEFT 04/18/2017 8:53 [...] 16. Electronically signed by:Guzman Saba. Transcribed by: [email or web address], User Resident: Electronically Signed by: GUZMAN SABA @ 04/20/2017 02:46 PM Normal [facility] Vital Signs Date Time Vital Sign Value Performing Clinician Facility 05-30-2024 13:10-0500 Body mass index (BMI) [Ratio] 46.2 kg/m2 [employer] Work Phone: [facility] 05-30-2024 13:10-0500 Body weight 133.81 kg [employer] Work Phone: [facility] 05-30-2024 13:10-0500 Diastolic blood pressure 76 mm[Hg] ContrerasGlobitel Work Phone: [facility] 05-30-2024 13:10-0500 Systolic blood pressure 118 mm[Hg] ContrerasGlobitel Work Phone: [facility] 10-10-2023 02:11-0400 SaO2% (BldA) [Mass fraction] 89 % JAK ANAYA [facility] Comment on above: Performed By: #### [facility] #### [facility] ([id number]) [address], [address] [place] [address] 08-18-2023 10:27-0500 Body mass index (BMI) [Ratio] 44.19 kg/m2 [employer] Work Phone: [facility] 08-18-2023 10:27-0500 Body weight 127.97 kg Contreras Emili DO Work Phone: [facility] 08-18-2023 10:27-0500 Diastolic blood pressure 80 mm[Hg] Contreras Emili DO Work Phone: [facility] 08-18-2023 10:27-0500 Systolic blood pressure 122 mm[Hg] Contreras Emili DO Work Phone: [facility] 08-04-2023 10:46-0500 Diastolic blood pressure 85 mm[Hg] Yanelis Garrido MD Work Phone: [facility] 08-04-2023 10:46-0500 Heart rate 85 /min Yanelis Garrido MD Work Phone: [facility] 08-04-2023 10:46-0500 Systolic blood pressure 138 mm[Hg] Yanelis Garrido MD Work Phone: [facility] 08-04-2023 08:25-0500 Body height 170.2 cm Yanelis Garrido MD Work Phone: [facility] 08-04-2023 08:25-0500 Body mass index (BMI) [Ratio] 43.98 kg/m2 Yanelis Garrido MD Work Phone: [facility] 08-04-2023 08:25-0500 Body weight 127.37 kg Yanelis Garrido MD Work Phone: [facility] Encounters Encounter Date Encounter Type Care Provider Facility Start: 05-30-2024 End: 05-30-2024 Office outpatient visit 15 minutes Contreras Emili DO Work Phone: [facility] Comment on above: Encounter for weight management; Anxiety Start: 05-30-2024 End: 05-30-2024 ambulatory CONTRERAS EMILI Not Available Start: 05-03-2024 End: 05-03-2024 Bamboo flowsheet Contreras Emili DO Work Phone: [facility] Start: 05-03-2024 End: 05-10-2024 Bamboo flowsheet Contreras Emili DO Work Phone: [facility] Start: 05-03-2024 End: 05-10-2024 Clinisync Result Encounter Contreras Medranoo DO Work Phone: [facility] Unsolicited Start: 05-03-2024 End: 05-03-2024 Patient encounter procedure Contreras Medranoo DO Work Phone: [facility] Work Phone: Start: 05-03-2024 End: 05-03-2024 Periodic preventive med est patient 18-39 yrs Contreras Freemanzio DO Work Phone: [facility] Comment on above: Well woman exam with routine gynecological exam; depression (CMS/HCC); Follow-up exam; Post depression (CMS/HCC); Insulin resistance Start: 05-03-2024 End: 05-03-2024 ambulatory CONTRERAS EMILI Not Available Start: 04-27-2024 End: 04-27-2024 ambulatory DINORAH P HOUSE Facility:[facility] Start: 04-05-2024 End: 04-05-2024 ambulatory DINORAH P HOUSE Facility:[facility] Start: 03-08-2024 End: 03-08-2024 ambulatory CONTRERAS EMILI Not Available Start: 03-08-2024 ambulatory DINORAH P HOUSE Facilit y:[facility] Start: 03-07-2024 End: 03-07-2024 ambulatory DINORAH P HOUSE Facility:[facility] Start: 02-04-2024 End: 02-04-2024 ambulatory DINORAH P HOUSE Facility:[facility] Start: 01-05-2024 End: 01-05-2024 ambulatory DINORAH P HOUSE Facility:[facility] Start: 11-12-2023 ambulatory Alfonzo Guerra MD Fac ility:[facility] Start: 10-26-2023 End: 10-26-2023 ambulatory CONTRERAS EMILI Not Available Start: 10-20-2023 End: 10-20-2023 Emergency department patient visit JAK ANAYA [facility] Start: 10-16-2023 Encounter Alfonzo hernandez MD Work Phone: [facility] 3W NICU Start: 10-15-2023 End: 10-15-2023 Encounter OMA NOVAK [facility] 3W NICU Start: 10-15-2023 End: 10-15-2023 Office outpatient visit 10 minutes Oma Novak [employer] Work Phone: [facility] Comment on above: Pre-eclampsia superi mposed on chronic hypertension, delivered (Primary Dx); History of Start: 10-14-2023 Encounter Alfonzo hernandez MD Work Phone: [facility] 3W NICU Start: 10-12-2023 End: 10-12-2023 Evaluation and management of inpatient ELLIOT MACK [facility] Start: 10-08-2023 End: 10-09-2023 Evaluation and management of inpatient JAMAR ALY [facility] Start: 10-05-2023 End: 10-06-2023 Evaluation and management of inpatient BRIAN León [facility] Start: 09-28-2023 End: 09-29-2023 Evaluation and management of inpatient MARGARITA REYES [facility] Start: 09-28-2023 End: 09-28-2023 ambulatory CAROLINE [facility] Start: 09-27-2023 End: 10-12-2023 Evaluation and management of inpatient PEREZPenelope ANAYA [facility] Start: 2023 End: 2023 ambulatory CONTRERAS MOCK Not Available Start: 08-31-2023 Orders Only Carla Guerra [facility]- [facility] at [facility] Comment on above: IUGR (intrauterine g rowth [...] second trimester Start: 08-20-2023 Documentation procedure Jeniffer Kelsey LCGC Work Phone: Maternal- Medicine at [facility] Comment on above: Outgoing Ca ll Start: 08-18-2023 End: 08-18-2023 flow sheet Contreras Medranoo DO Work Phone: [facility] Comment on above: Second trimester pre gnancy; Diabetes mellitus screening; Thyroid disease affecting ([facility]) Start: 08-18-2023 End: 08-18-2023 ambulatory CONTRERAS MOCK Not Available Start: 08-17-2023 Telephone encounter Althea PARIKH [facility] at [facility] Start: 08-06-2023 End: 08-07-2023 ambulatory ALFONZO GUERRA [facility] Start: 08-05-2023 Documentation procedure Yanelis Garrido MD Work Phone: M[facility]- Medicine at [facility] Start: 08-05-2023 Telephone encounter Stacy Justin RN [facility] Start: 08-04-2023 Documentation procedure Carla portillo [employer] M[facility]- Medicine at [facility] Start: 08-04-2023 Telephone encounter Leslie reese M[facility]- [facility] at [facility] Comment on above: Appointment IUGR (intrauterine g rowth restriction) affecting care of mother, second trimester, not applicable or unspecified fetus (Primary Dx); History of delivery, currently ; 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 trimester; Chronic hypertension affecting Start: 08-04-2023 End: 08-05-2023 ambulatory CONTRERAS MOCK [facility] Start: 08-04-2023 End: 08-04-2023 Office outpatient visit 40 minutes Yanelis Garrido MD Work Phone: Maternal- Medicine at [facility] Comment on above: IUGR (intrauterine g rowth restriction) affecting care of mother, second trimester, not applicable or unspecified fetus (Primary Dx); History of delivery, currently ; 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 trimester; Hx of preeclampsia, prior , currently , second trimester Start: 07-22-2023 End: 07-22-2023 ambulatory CONTRERAS MOCK Not Available Start: 06-18-2023 End: 06-18-2023 ambulatory CONTRERAS MEDRANOO Not Available Start: 05-25-2023 End: 05-25-2023 ambulatory Alfonzo Guerra MD Facility:[facility] Start: 11-24-2022 End: 11-24-[address] LIRA [facility] Facility: Start: 04-18-2017 End: 04-19-2017 Ambulatory MORIAH BOND Facility:[facility] Procedures Date Procedure Procedure Detail Performing Clinician Start: 05-03-2024 IGP,APTIMA HPV,AGE GDLN Contreras Emili DO Work Phone: Start: 08-18-2023 Urnls dip stick/tabl et rgnt non-auto w/o micrscp Contreras Emili DO Work Phone: Start: 08-04-2023 UNLISTED LAB TEST Yanelis Garrido MD Work Phone: Start: 11-24-2022 Microscopic observat ion [Identifier] in Cervix by Cyto stain Alfonzo Guerra MD Work Phone: H/O: section History of C-sectio n Oma Novak [employer] Work Phone: Plan of Treatment Date Care Activity Detail Author Start: 06-05-2031 DTaP,Tdap and Td Vaccines (7 - Td or Tdap) DTaP,Tdap and Td Vaccines (7 - Td or Tdap) [facility] Start: 11-24-2025 Screening for malign ant neoplasm of cervix Pap Smear [facility] Start: 10-11-2024 Adult BMI Screening Adult BMI Screen ing [facility] Start: 10-11-2024 Tobacco Screening Tobacco Screening [facility] Start: 08-04-2024 Adult BMI Screening Adult BMI Screen ing [facility] Start: 08-04-2024 Tobacco Screening Tobacco Screening [facility] Start: 08-04-2024 End: 08-04-2024 US MFM with or without consult US MFM with or without consult Imaging Routine IUGR (intrauterine growth restriction) affecting care of mother, second trimester, not applicable or unspecified fetus History of delivery, currently 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 trimester Chronic hypertension affecting Expected: 08/04/2024 (Approximate), Expires: 08/04/2024 [facility] Work Phone: Comment on above: Expected: 08/04/2024 (Approximate), Expires: 08/04/2024 Start: 06-27-2024 End: 06-27-2024 Patient encounter procedure 06/27/2024 1:30 PM EST Office Visit [facility] [address] [place] [id number] Olga Escobar PA [address] [place], [facility] Start: 05-30-2024 End: 05-30-2024 Patient encounter procedure 05/30/2024 1:00 PM EST Office Visit [facility] [address] [place] [address] Contreras Mock, DO [address] [place], [place] [address] [facility] Start: 05-03-2024 End: 05-03-2024 Patient encounter procedure 05/03/2024 1:40 PM EDT Office Visit [facility] [address] [place] [address] Contreras Mock, [address] [place] [address] [address] [place], [place] [address] Arrived [facility] Comment on above: Arrived Start: 03-13-2024 Influenza vaccination [facility] Start: 10-15-2023 End: 10-15-2023 Telemedicine consultation with patient 10/15/2023 9:00 AM EDT Telemedicine [facility] - Women's Services [address] [place] [id number] Oma Novak, [employer] MAINTENAN[employer] [address] [place] [address] [facility] Start: 09-15-2023 End: 09-15-2023 Patient encounter procedure 09/15/2023 10:20 AM EST Routine [facility] [address] [place] [phone] Contreras Mock, [address] [place] [address] [facility] Start: 08-18-2023 End: 08-18-2024 CBC panel - Blood by Automated count CBC Lab Routine Diabetes mellitus screening Expected: 08/18/2023 (Approximate), Expires: 08/18/2024 [facility] Work Phone: Comment on above: Expected: 08/18/2023 (Approximate), Expires: 08/18/2024 Start: 08-18-2023 End: 08-18-2024 Measurement of glucose 1 hour after glucose challenge for glucose tolerance test Glucose tolerance, 1 hour Lab Routine Diabetes mellitus screening Expected: 08/18/2023 (Approximate), Expires: 08/18/2024 [facility] Comment on above: Expected: 08/18/2023 (Approximate), Expires: 08/18/2024 Start: 08-17-2023 End: 08-17-2023 Patient encounter procedure [facility] Start: 08-05-2023 End: 08-05-2024 Unlisted Lab Test Unlisted Lab Test Lab Routine IUGR (intrauterine growth restriction) affecting care of mother, second trimester, not applicable or unspecified fetus Maternal care for other known or suspected poor growth, unspecified trimester, not applicable or unspecified Expected: 08/05/2023 (Approximate), Expires: 08/05/2024 [facility] Work Phone: Comment on above: Expected: 08/05/2023 (Approximate), Expires: 08/05/2024 Start: 03-13-2023 COVID-19 Vaccine ( season) COVID-19 Vaccine ( season) [facility] Start: 03-13-2023 Influenza vaccination [facility] Start: 2017 Screening for malign ant neoplasm of cervix Pap Smear [facility] Start: 2014 Adult BMI Follow Up Plan Adult BMI Follow Up Plan [facility] Start: 2008 Depression Screening Depression Scre ening [facility] End: 08-03-2024 Beta-2 glycoprotein antibodies Beta-2 glycoprotein antibodies Lab Routine IUGR (intrauterine growth restriction) affecting care of mother, second trimester, not applicable or unspecified fetus 1 Occurrences starting 08/04/2023 until 08/03/2024 [facility] Work Phone: Comment on above: 1 Occurrences starti ng 08/04/2023 until 08/03/2024 Cytology Cervical or vaginal smear or scraping study Pap Smear Pathology and Cytology Routine Well woman exam with routine gynecological exam Ordered: 05/03/2024 [facility] Work Phone: Comment on above: Ordered: 05/03/2024 Immunizations Immunization Date Immunization Notes Care Provider Pete olson 06-10-2022 influenza virus vaccine, unspecified formulation [facility] 06-05-2021 influenza, injectabl e, quadrivalent, preservative free [facility] 06-05-2021 tetanus toxoid, reduced diphtheria toxoid, and acellular pertussis vaccine, adsorbed [facility] 06-05-2021 influenza virus vaccine, unspecified formulation Contreras Mock DO Work Phone: [facility] Payers Date Payer Category Payer [facility] [id number] 2020 Unknown [id number]. [id number] 2020 Unknown [id number] 1996 Unknown [id number] 2.16.840.1.962261.3.579.2. 593 1996 Unknown [id number] 2.16.840.1.968664.3.579.2. 175 1996 Unknown [id number] 2.16.840.1.410470.3.579.2. 1286 1996 Unknown [id number] 2.16.840.1.311082.3.579.2. 1285 1996 Unknown [id number] 2.16.840.1.735196.3.579.2. 1286 1996 Unknown [id number] 2.16.840.1.360822.3.579.2. 6 1996 Unknown [id number] 2.16.840.1.692388.3.579.2. 1286 1996 Unknown [id number] 2.16.840.1.931397.3.579.2. 6 1996 Unknown [id number] 2.16.840.1.202461.3.579.2. 1286 1996 Unknown [id number] 2.16.840.1.163711.3.579.2. 1285 1996 Unknown [id number] 2.16.840.1.292029.3.579.2. 1286 1996 Unknown [id number] 2.16.840.1.958155.3.579.2. 1285 1996 Unknown [id number] 2.16.840.1.848866.3.579.2. 1286 1996 Unknown [id number] 2.16.840.1.629514.3.579.2. 1285 1996 Unknown [id number] 2.16.840.1.252048.3.579.2. 1258 1996 Unknown [id number] 2.16.840.1.536837.3.579.2. 1258 1996 Unknown [id number] 2.16.840.1.183921.3.579.2. 1258 1996 Unknown [id number] 2.16.840.1.455830.3.579.2. 1258 1996 Unknown [id number] 2.16.840.1.652755.3.579.2. 1258 1996 Unknown [id number] 2.16.840.1.704906.3.579.2. 1258 1996 Unknown [id number] 2.16.840.1.072963.3.579.2. 1996 Unknown [id number] 2.16.840.1.309056.3.579.2. 1996 Unknown [id number] 2.16.840.1.990295.3.579.2. 1996 Unknown [id number] 2.16.840.1.134121.3.579.2. 1996 Unknown [id number] 2.16.840.1.702136.3.579.2. 1996 Unknown [id number] 2.16.840.1.705588.3.579.2. 1996 Unknown [id number] 2.16.840.1.717237.3.579.2. 1996 Unknown [id number] 2.16.840.1.619874.3.579.2. 1996 Unknown [id number] 2.16.840.1.743779.3.579.2. 1259 1996 Unknown [id number] 2.16.840.1.337738.3.579.2. 1259 1959 Unknown [id number] Unknown [id number] Social History Date Type Detail Facility Start: 12-19-2022 End: 05-25-2023 Tobacco smoking status NHIS Never smoked tobacco [facility] Start: 05-25-2023 Tobacco use and exposure Smokeless tobacco non-user [facility] Start: 08-04-2023 End: 05-30-2024 Alcohol intake Ex-drinker (finding) [facility] Start: 03-21-2020 End: 06-17-2023 History of Social function [facility] Start: 03-21-2020 End: 06-17-2023 Alcohol Use Disorder Identification Test - Consumption [AUDIT-C] [facility] Frequency of Alcohol Consumption Never [facility] Start: 03-26-2023 [facility] Start: 1995 Sex Assigned At Female [facility] Start: 04-22-2021 Gender identity Identifies as female gender (finding) [facility] Start: 04-22-2021 Sexual orientation Heterosexual (finding) [facility] Start: 12-19-2022 Alcohol Comment occasional [facility] Goals Date Patient Goal Desired Activity /State Personal health goal Clinical Notes 08-04-2023 to 05-30-2024 Irene Hassan LPN - 05/30/2024 1:00 PM Cady Andrea LPN - 05/03/2024 1:40 PM EDTLactation Note - Xenia Lomeli RN - 10/16/2023 11:28 AM EDTKelCARLI Arias - 10/15/2023 9:00 AM EDT Note Date & Type Note Facility 05-30-2024 History of Present illness Narrative Reason for Appointment: Patient ID: Sisi Mora is a 28 y.o. female who presents for Weight Management Patient presents today for Consult appointment. and Weight Management Consult. MEDICATIONS Current Outpatient Medications Medication Instructions Cyanocobalamin (B-12) 1000 MCG capsule 1 capsule, Oral, Daily labetalol (NORMODYNE) 200 mg, Oral, 2 times daily levothyroxine (SYNTHROID, LEVOXYL) 100 mcg, Oral, Daily before breakfast metFORMIN XR (GLUCOPHAGE-XR) 500 mg, Oral, Daily with evening meal, Do not crush, chew, or split. NIFEdipine (PROCARDIA) 30 mg, Oral, Daily omeprazole (PRILOSEC) 40 mg, Oral, Daily phentermine (ADIPEX-P) 37.5 mg, Oral, Daily before breakfast Topamax 50 mg venlafaxine XR (EFFEXOR XR) 37.5 mg, Oral, Daily, Do not crush or chew. ALLERGIES Allergies Allergen Reactions Azithromycin Hives Other Reaction(s): other Ketorolac Tromethamine Hives Other Reaction(s): other, Unknown Other Sara contrast Tramadol Hives Other Reaction(s): other PROBLEMS Active Ambulatory Problems Diagnosis Date Noted Anxiety 02/12/2023 Bronchial asthma ([facility]) 02/12/2023 Depression ([facility]) 02/12/2023 Essential hypertension ([facility]) 02/12/2023 GERD (gastroesophageal reflux disease) 02/12/2023 Insomnia 02/12/2023 Maternal care for other known or suspected poor growth, unspecified trimester, not applicable or unspecified 05/28/2021 Migraine headache ([facility]) 02/12/2023 Morbid obesity ([facility]) 02/12/2023 PCOS (polycystic ovarian syndrome) 02/12/2023 Seasonal allergic rhinitis 02/12/2023 Resolved Ambulatory Problems Diagnosis Date Noted No Resolved Ambulatory Problems Past Medical History: Diagnosis Date History of Hyperthyroidism ([facility]) Hypothyroidism ([facility]) Insulin resistance Morbid obesity with body mass index (BMI) of 40.0 to 49.9 ([facility]) Pap smear for cervical cancer screening 11/24/2022 HISTORY PAST MEDICAL HISTORY SOCIAL HISTORY Past Medical History: Diagnosis Date History of Hyperthyroidism (CMS/HCC) Hypothyroidism ([facility]) Insulin resistance Morbid obesity with body mass index (BMI) of 40.0 to 49.9 ([facility]) Body mass index (BMI) of 40.0 to 49.9 Pap smear for cervical cancer screening 11/24/2022 neg PCOS (polycystic ovarian syndrome) Social History Tobacco Use Smoking status: Never Smokeless tobacco: Not on file Substance Use Topics Alcohol use: Not Currently Comment: occasional Drug use: Never FAMILY HISTORY Family History Problem Relation Name Age of Onset Hypertension Mother Stroke Mother Diabetes Father Hypertension Father Hyperlipidemia Father Heart disease Father Stroke Father Mental illness Father Hypertension Maternal Grandmother Cancer Paternal Grandfather SURGICAL HISTORY Past Surgical History: Procedure Laterality Date SECTION, CLASSIC 10/09/2023 SECTION, LOW TRANSVERSE MOLE REMOVAL 12/2011 benign MI KNEE SCOPE,CLEAN/DRAIN Left 09/2014 TONSILLECTOMY TUBAL LIGATION 10/09/2023 TUMOR REMOVAL Right 11/2011 Calf tumor- benign REVIEW OF SYSTEMS Review of Systems: Review of Systems All other systems reviewed and are negative. OBJECTIVE Objective: Physical Exam Constitutional: Appearance: Normal appearance. She [...] nursing note reviewed. Exam conducted with a armor senior sergeant present. Vitals: Estimated body mass index is 46.2 kg/m as calculated from the following: Height as of 01/20/23: 5' 7 . Weight as of this encounter: 295 lb. BP: 118/76 No LMP recorded. ASSESSMENT & PLAN ICD-10-CM 1. Encounter for weight management Z76.89 phentermine (Adipex-P) 37.5 MG tablet Patient presents today for weight management and voiced she feels as though she will benefit from increase in Effexor. Resent Effexor to pharmacy. Adipex #1 prescription given to patient. The importance of keeping a food journal, proper nutrition/diet, and exercise regimen while taking Adipex has been discussed. Patient verbalized understanding and signed consents to initiate (Adipex) medication therapy. Patient was given a printed prescription signed by provider to take to their local pharmacy. Follow Up: Patient is to return to the office in 1 month for further evaluation to assess patient progress. Weight and blood pressure will need to be captured in order for patient to receive 2nd prescription. Documented by Irene Hassan LPN on behalf of: Contreras Mock DO documented in this encounter [facility] 05-03-2024 History of Present illness Narrative Reason for Appointment: Patient ID: Sisi Mora is a 28 y.o. female who presents for Well Women Visit and depression follow up Patient presents today for Annual Exam. and Medication Follow Up appointment. MEDICATIONS Current Outpatient Medications Medication Instructions Cyanocobalamin (B-12) 1000 MCG capsule 1 capsule, Oral, Daily labetalol (NORMODYNE) 200 mg, Oral, 2 times daily levothyroxine (SYNTHROID, LEVOXYL) 100 mcg, Oral, Daily before breakfast NIFEdipine (PROCARDIA) 30 mg, Oral, Daily omeprazole (PRILOSEC) 40 mg, Oral, Daily Topamax 50 mg venlafaxine XR (EFFEXOR XR) 37.5 mg, Oral, Daily, Do not crush or chew. ALLERGIES Allergies Allergen Reactions Ketorolac Tromethamine Hives Other Sara contrast Ultram [Tramadol] Hives Zithromax [Azithromycin] Hives PROBLEMS Active Ambulatory Problems Diagnosis Date Noted Anxiety 02/12/2023 Bronchial asthma ([facility]) 02/12/2023 Depression ([facility]) 02/12/2023 Essential hypertension ([facility]) 02/12/2023 GERD (gastroesophageal reflux disease) 02/12/2023 Insomnia 02/12/2023 Maternal care for other known or suspected poor growth, unspecified trimester, not applicable or unspecified 05/28/2021 Migraine headache ([facility]) 02/12/2023 Morbid obesity ([facility]) 02/12/2023 PCOS (polycystic ovarian syndrome) 02/12/2023 Seasonal allergic rhinitis 02/12/2023 Resolved Ambulatory Problems Diagnosis Date Noted No Resolved Ambulatory Problems Past Medical History: Diagnosis Date History of Hyperthyroidism ([facility]) Hypothyroidism ([facility]) Insulin resistance Morbid obesity with body mass index (BMI) of 40.0 to 49.9 ([facility]) Pap smear for cervical cancer screening 11/24/2022 HISTORY PAST MEDICAL HISTORY SOCIAL HISTORY Past Medical History: Diagnosis Date History of Hyperthyroidism ([facility]) Hypothyroidism ([facility]) Insulin resistance Morbid obesity with body mass index (BMI) of 40.0 to 49.9 ([facility]) Body mass index (BMI) of 40.0 to 49.9 Pap smear for cervical cancer screening 11/24/2022 neg PCOS (polycystic ovarian syndrome) Social History Tobacco Use Smoking status: Never Smokeless tobacco: Not on file Substance Use Topics Alcohol use: Not Currently Comment: occasional Drug use: Never FAMILY HISTORY Family History Problem Relation Name Age of Onset Hypertension Mother Stroke Mother Diabetes Father Hypertension Father Hyperlipidemia Father Heart disease Father Stroke Father Mental illness Father Hypertension Maternal Grandmother Cancer Paternal Grandfather SURGICAL HISTORY Past Surgical History: Procedure Laterality Date SECTION, CLASSIC 10/09/2023 SECTION, LOW TRANSVERSE MOLE REMOVAL 12/2011 benign MI KNEE SCOPE,CLEAN/DRAIN Left 09/2014 TONSILLECTOMY TUBAL LIGATION 10/09/2023 TUMOR 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 HENT: Negative. Eyes: Negative. Respiratory: Negative. Cardiovascular: Negative. Gastrointestinal: Negative. Genitourinary: Negative. Musculoskeletal: Negative. Skin: Negative. Neurological: Negative. All other systems reviewed and are negative. Hematological: Negative. Endocrine: Negative. Allergic/Immunologic: Negative. OBJECTIVE Objective: Physical Exam Constitutional: Appearance: Normal appearance. She is well-developed. Genitourinary: Vulva normal. Breasts: Breasts are soft. Right: Normal. Left: Normal. Cardiovascular: Rate and Rhythm: Normal rate and [...] nursing note reviewed. Exam conducted with a armor senior sergeant present. Vitals: Estimated body mass index is 44.5 kg/m as calculated from the following: Height as of 01/20/23: 5' 7 . Weight as of 03/08/24: 284 lb 1.9 oz. BP: No LMP recorded. ASSESSMENT & PLAN ICD-10-CM 1. Well woman exam with routine gynecological exam Z01.419 Pap Smear 2. depression (CMS/HCC) F53.0 3. Follow-up exam Z09 4. 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 Patient states she is doing well and has complaints of desiring weight loss. Pt to start metformin at 500 and in four weeks start adipex and increase metformin to 1000. Pap was obtained without difficulty. No orders of the defined types were placed in this encounter. Follow Up: Patient is to return in one year for annual unless needed otherwise. Documented by Virginia Andrea LPN on behalf of: Contreras Mock DO documented in this encounter [facility] 12-14-2023 Note Entered by Sindy Cormier on December 14, 2023 09:59:29 EDT From: Sindy Cormier To: [facility] Sent: 12/14/2023 09:59:29 EDT Subject: Medication Management Submitted: Order:omeprazole (omeprazole 40 mg oral delayed release capsule) 1 cap(s) Oral Daily Qty: 30 cap(s) Days Supply: 30 Refills: 5 Substitutions Allowed Route To Pharmacy - [facility] Signed by Sindy Cormier 12/14/2023 09:59:00 EDT Submitted: Complete:omeprazole (omeprazole 40 mg oral delayed release capsule) Signed by Sindy Cormier 12/14/2023 09:59:00 EDT Not Approved: New Rx to follow omeprazole (Omeprazole 40 MG Oral Capsule Delayed Release) Take 1 capsule by mouth once daily Qty: 30 cap(s) Days Supply: 30 Refills: 0 Substitutions Allowed Route To Pharmacy - [facility] Signed by Sindy Cormier --------- From: [facility] To: Azael LOPEZ, Alfonzo Sumner MD Sent: December 13, 2023 5:45:21 AM CDT Subject: Medication Management Due: December 14, 2023 12:32:47 AM CDT On Hold Pending Signature Dispensed Drug: omeprazole (omeprazole 40 mg oral delayed release capsule), Take 1 capsule by mouth once daily Quantity: 30 cap(s) Days Supply: 30 Refills: 0 Substitutions Allowed Notes from Pharmacy: --------- [facility] 10-16-2023 Miscellaneous Notes This note was copied from a baby's chart. Met with mother at infant's bedside. States that pumping has been going well, she gets about an ounce each time she pumps and is trying to pump regularly. She denies any pain or discomfort. No immediate questions or concerns, encouraged to call out for any other assistance. documented in this encounter [facility] 10-16-2023 Obstetrics Note This note was copied from a baby's chart. Met with mother at 's bedside. States that pumping has been going well, she gets about an ounce each time she pumps and is trying to pump regularly. She denies any pain or discomfort. No immediate questions or concerns, encouraged to call out for any other assistance. [facility] 10-15-2023 Miscellaneous Notes This note was copied from a baby's chart. Met with mother at 's bedside. States pumping is going well and milk supply is increasing. Encouraged to reach out to with questions or concerns. Support given. Step 1: stable and able to tolerate Iujo-mk-Gkyn care Interventions Baby No weight or gestational age limitations, following IVH protocol Follow Psrr-qg-Xxfc Care Policy Length should be done as tolerated by the infant. At least once daily, increase as tolerated. Mother Put Xzqx-ur-Nsnc at least once daily, when possible documented in this encounter [facility] 10-15-2023 Obstetrics Note This note was copied from a baby's chart. Met with mother at infant's bedside. States pumping is going well and milk supply is increasing. Encouraged to reach out to with questions or concerns. Support given. Step 1: Infant stable and able to tolerate Umbf-ls-Xhzs care Interventions Baby No weight or gestational age limitations, following IVH protocol Follow Zjcc-cx-Mdix Care Policy Length should be done as tolerated by the . At least once daily, increase as tolerated. Mother Put Sbwt-al-Xnzp at least once daily, when possible [facility] 10-15-2023 History of Present illness Narrative Video Visit via Real-time Synchronous Audiovisual Provider Location: [facility] [address] [place] [id number] Patient Location: Other Patient Location Physician'S Assistant: None Video Visit Consent Statement: I discussed [...] that there are some limitations compared to bxor-nx-ykwf evaluations. We elected to proceed. Subjective: Sisi Mora is a 28 y.o. is seen today [...] as expected Pre-eclamptic warnings reviewed. Call provider asset protection lead for headache unresolved with tylenol, visual change, epigastic pain or significant change in swelling in her hands feet or face. Let the office know if BP readings consistently over 140/90 (either number). Call provider asset protection lead for BP greater than 160/110 (either number). Hypotensive warnings reviewed - call if experiencing dizziness, weakness or fainting. CARLI Denny APRN-CNP 10/15/23 0922 documented in this encounter [employer] 10-14-2023 Miscellaneous Notes This note was copied from a baby's chart. Met with mother at 's bedside. States pumping is going well. She is getting about 1 ounce every 3 hours without any pain or discomfort. Encouraged skin to skin when she is able. No questions or concerns at this time. Encouraged to reach out with any needs. documented in this encounter [facility] 10-14-2023 Obstetrics Note This note was copied from a baby's chart. Met with mother at infant's bedside. States pumping is going well. She is getting about 1 ounce every 3 hours without any pain or discomfort. Encouraged skin to skin when she is able. No questions or concerns at this time. Encouraged to reach out with any needs. [facility] 08-31-2023 History of Present illness Narrative M [...] conditions (Bartter type 2 & cystic fibrosis [id number]) Our genetic counselor reviewed the results with [...] additional involvement in this patient's care. Yanelis Garrido MD Professor, [facility] Maternal Medicine documented in this encounter [facility] 08-20-2023 History of Present illness Narrative Summary: [...] documented in this encounter [facility] 08-20-2023 History of Present illness Narrative Summary: Carrier Screening Results Called and left VM for Sisi requesting a call back regarding carrier screening results. documented in this encounter [facility] 08-18-2023 History of Present illness Narrative Reason for Appointment: Patient ID: Sisi Mora is a 27 y.o. female who presents for Routine Visit Patient presents today for Return OB appointment. Current Medications: has a current medication list which includes the following prescription(s): b-12, labetalol, levothyroxine, metoclopramide, omeprazole, and pyridoxine. Medical History: Active Ambulatory Problems Diagnosis Date Noted Anxiety 02/12/2023 Bronchial asthma ([facility]) 02/12/2023 Depression (CMS/HCC) 02/12/2023 Essential hypertension (CMS/HCC) [...] mass index (BMI) of 40.0 to 49.9 ([facility]) Pap smear for cervical cancer screening [...] SECTION, LOW TRANSVERSE MOLE REMOVAL 12/2011 benign MI KNEE SCOPE,CLEAN/DRAIN Left 09/2014 TONSILLECTOMY TUMOR REMOVAL [...] nursing note reviewed. Exam conducted with a armor senior sergeant present. Vitals: Estimated body mass index is [...] Delivery: 12/17/23. Pt doing well- reviewed recent [facility] appt. Pt to return to [facility] in 2 weeks. Pt to return in 4 weeks for scheduled OB appt. Documented by Virginia Andrea LPN on behalf of: Contreras Mock DO documented in this encounter [facility] 08-17-2023 Miscellaneous Notes Patient returned call states she is being seen somewhere else. documented in this encounter [facility] 08-17-2023 Telephone encounter Note Patient returned call states she is being seen somewhere else. [facility] 08-17-2023 Miscellaneous Notes Please call us back to get rescheduled for your jordan. documented in this encounter [facility] 08-17-2023 Telephone encounter Note Please call us back to get rescheduled for your jordan. [facility] 08-05-2023 Miscellaneous Notes Left message for patient that an additional lab has been ordered that needs to be drawn at a [facility] lab only. Call back phone number given if patient has questions. Patient returned call to [facility] and will have additional lab done at a [facility] lab. Patient also had concerns regarding future Doppler US being done here at [facility]. Patient will do initial Doppler here and may need to do [place] due to son having surgery in [place]. documented in this encounter [facility] 08-05-2023 Telephone encounter Note Left message for patient that an additional lab has been ordered that needs to be drawn at a [facility] lab only. Call back phone number given if patient has questions. [facility] 08-05-2023 Telephone encounter Note Patient returned call to [facility] and will have additional lab done at a [facility] lab. Patient also had concerns regarding future Doppler US being done here at [facility]. Patient will do initial Doppler here and may need to do [place] due to son having surgery in [place]. [facility] 08-05-2023 History of Present illness Narrative Maternal- [...] lab is drawn at 1 of the [facility] locations because it seems that result availability and of test and correctly performed test is more likely when ordered through our Internal lab. I will ask our nursing staff to contact the patient and relay instructions. Yanelis Garrido MD Professor, [facility] Maternal Medicine documented in this encounter [facility] 08-04-2023 History of Present illness Narrative Lab drawn for cell-free DNA testing. Patient tolerated well. (Lab came to draw ) documented in this encounter [facility] 08-04-2023 Miscellaneous Notes Patient refused to schedule umb doppler in 3 weeks. Son is having surgery and she will call at a later time to schedule. documented in this encounter [facility] 08-04-2023 Telephone encounter Note Patient refused to schedule umb doppler in 3 weeks. Son is having surgery and she will call at a later time to schedule. [facility] 08-04-2023 History of Present illness Narrative Headache/epigastric [...] Genetic counselor note. Total time by Dr. Garrido is in addition to time needed to [...] was 45 minutes. 34 minutes were direct [id number] for counseling and coordination of care during visits itself. An additional 4 minutes or for same day preparation to see the patient. Another 7 minutes were needed were needed to prepare report and or to perform other duties to complete visit. Thank you for sending this patient. Yanelis Garrido MD Maternal Medicine Professor, [facility] [phone] Office [phone] Personal Cell Phone Office Note: Chronic hypertension [...] OB provider team. documented in this encounter [facility] Evaluation note Diagnosis IUGR (intrauterine growth restriction) affecting care of mother, second trimester, not applicable or unspecified fetus- Primary History of delivery, currently with history of pre-term labor 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 trimester Chronic hypertension affecting documented in this encounter [facility] note* Diagnosis IUGR (intrauterine growth restriction) affecting care of mother, second trimester, not applicable or unspecified fetus- Primary History of delivery, currently with history of pre-term labor 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 trimester Hx of preeclampsia, prior , currently , second trimester documented in this encounter [facility]* Diagnosis IUGR (intrauterine growth restriction) affecting care of mother, second trimester, not applicable or unspecified fetus- Primary Maternal care for other known or suspected poor growth, unspecified trimester, not applicable or unspecified documented in this encounter [facility]* Diagnosis Second trimester state, incidental Diabetes mellitus screening Screening for diabetes mellitus Thyroid disease affecting (CMS/HCC) documented in this encounter [facility] HealthcareEvaluation note* Diagnosis IUGR (intrauterine growth restriction) affecting care of mother, second trimester, not applicable or unspecified fetus Chronic hypertension affecting Hx of preeclampsia, prior , currently , second trimester [facility] Diagnosis IUGR (intrauterine growth restriction) affecting care of mother, second trimester, not applicable or unspecified fetus- Primary Chronic hypertension affecting Hx of preeclampsia, prior , currently , second trimester documented in this encounter [facility] note* Diagnosis Pre-eclampsia superimposed on chronic hypertension, delivered- Primary History of Other postprocedural status documented in this encounter [facility] note* Diagnosis Well woman exam with routine gynecological exam Routine gynecological examination depression (CMS/HCC) Mental disorders of mother, complicating , childbirth, or the puerperium, unspecified as to episode of care Follow-up exam Unspecified follow-up examination Post depression (CMS/HCC) Mental disorders of mother, complicating , childbirth, or the puerperium, unspecified as to episode of care Insulin resistance Other abnormal glucose documented in this encounter [facility] HealthcareEvaluation note* Diagnosis Encounter for weight management Anxiety Anxiety state, unspecified documented in this encounter [facility] HealthcareInstructionsNot on filedocumented in this [facility] SystemInstructionsNot on filedocumented in this encounterProCh[facility] SystemInstructionsNot on filedocumented in this encounterProCh[facility] SystemInstructionsNot on filedocumented in this encounterProCh[facility] InstructionsNot on filedocumented in this encounterProCh[facility] InstructionsNot on filedocumented in this [facility]Pro[facility] InstructionsNot on filedocumented in this encounterProAvita Health System SystemReason for visit Narrative* Consultation (Routine) - Pending Review Specialty Diagnoses / Procedures Referred By Ashtyn chand Referred To Contact Obstetrics and Gynecology Diagnoses Pre-eclampsia, severe, with delivery ShuffAndrew daley MD [address] [facility], [facility] [address] [place] [address] Oma Novak, [employer] MAINTENA[employer] [address] [place] [address] Referral ID Status Reason Start Date Expiration Date V isits Requested Visits Authorized [id number] Pending Review 10/12/2023 10/11/2024 1 1 [facility] Summary Purpose Family History No Family History [...] in second trimester Chronic hypertension affecting Procedures [facility] with or without consult Yanelis Garrido MD [address] [place] [address] [facility] Maternal Med [address] [place] [address] Referral ID Status Reason Start Date Expiration Date V isits Requested Visits Authorized [id number] Pending Review 08/04/2023 08/03/2024 1 1 Additional Source Comments INFORMATION SOURCE (unrecogn ized section and content) DATE CREATED AUTHOR 01/05/[address] [facility] DATE CREATED AUTHOR AUTHOR'S ORGANIZ ATION 11/25/2022 [facility] DATE CREATED AUTHOR AUTHOR'S ORGANIZ ATION 09/25/2023 [facility] DATE CREATED AUTHOR AUTHOR'S ORGANIZ ATION 10/28/2023 [facility] DATE CREATED AUTHOR AUTHOR'S ORGANIZ ATION 03/10/2024 [facility] DATE CREATED AUTHOR AUTHOR'S ORGANIZ ATION 04/29/2024 [facility] DATE CREATED AUTHOR AUTHOR'S ORGANIZ ATION 06/01/2024 [facility] EPIC Reason for Visit (unrecogniz ed section and content) Reason Onset Date Comments Appointment 08/04/2023 Reason Comments Hypertension Reason Comments Routine Visit Reason Onset Date Comments Outgoing Call 08/20/2023 Reason Comments Well Women Visit depression follow up Reason Comments Weight Management Care Teams (unrecognized sec tion and content) Event Promoter Relationship Specialty Start Date End Date Alfonzo Guerra MD [address] [place] [id number] PCP - General Family Medicine 04/05/20 Event Promoter Relationship Specialty Start Date End Date Alfonzo Guerra MD [address] [place] [id number] PCP - General Family Medicine 04/05/20 Event Promoter Relationship Specialty Start Date End Date Alfonzo Guerra MD [address] [place] [id number] PCP - General Family Medicine 04/05/20 Event Promoter Relationship Specialty Start Date End Date Alfonzo Guerra MD [address] [place] [address] [id number] PCP - General Family Medicine 04/05/20 Event Promoter Relationship Specialty Start Date End Date Alfonzo Guerra MD [address] [place] [address] [id number] PCP - General Family Medicine 04/05/20 Event Promoter Relationship Specialty Start Date End Date Alfonzo Guerra MD [address] [place] [address] [id number] PCP - General Family Medicine 04/05/20 Event Promoter Relationship Specialty Start Date End Date Alfonzo Guerra MD [address] [place] [address] [id number] PCP - General Family Medicine 04/05/20 Event Promoter Relationship Specialty Start Date End Date Alfonzo Guerra MD [address] [place] [id number] PCP - General Family Medicine 12/22/22 Event Promoter Relationship Specialty Start Date End Date Alfonzo Guerra MD [address] [place] [address] [id number] PCP - General Family Medicine 04/05/20 Event Promoter Relationship Specialty Start Date End Date Alfonzo Guerra MD [address] [place] [address] [phone] PCP - General Family Medicine 12/22/22 Event Promoter Relationship Specialty Start Date End Date Alfonzo Guerra MD [address] [place] [address] [id number] PCP - General Family Medicine 12/22/22 Event Promoter Relationship Specialty Start Date End Date Alfonzo Guerra MD [address] [place] [address] PCP - General Family Medicine 12/22/22 Event Promoter Relationship Specialty Start Date End Date Alfonzo Guerra MD [address] [place] [address] PCP - General Family Medicine 12/22/22 FOR RECORDS PERTAINING TO PATIENTS WHO ARE [...] BE BASED ON THE PRIMARY CLINICAL RECORDS. [employer] provides no warranty or guarantee of the accuracy or completeness of information in this document.
--- NOTE | 2024-06-05 19:45 | ECG_ITS ---
[facility] Test Date: 2024-06-05 Pat Name: BRAULIO CHAKRABORTY Department: Room: - Gender: Female [employer] Operator: : 1995 Requested By: Order Number: [id number] Reading MD: NITISH THAKUR Measurements Intervals [place] Rate: 69 P: 22 VA: 118 QRS: 59 QRSD: 90 T: 19 QT: 384 QTc: 404 Interpretive Statements 1100 Sinus rhythm 2210 Short VA interval 9150 abnormal ECG No previous ECG available for comparison Electronically Signed On 06-06-2024 6:55:20 EST by NITISH THAKUR
--- NOTE | 2024-06-05 19:45 | XR_ITS ---
The [address] [address] Patient Name: BRAULIO CHAKRABORTY MRN: [id number] date: 1995 Sex: F Assigned Patient Location: ER Current Patient Location: Accession/Order Number: [id number] Exam Date: 06/05/2024 19:51 Report Date: 06/05/2024 22:13 At the request of: TREASURE ANDRADE Procedure: XR chest 2V CHEST X-RAY. INDICATION: Chest pain. COMPARISON: There are no previous studies available for comparison. TECHNIQUE: Frontal and lateral chest radiographs. FINDINGS: TUBES AND LINES: None. LUNGS: Lungs are clear. PLEURA: No effusions or pneumothorax. HEART AND MEDIASTINUM: Within normal limits. OSSEOUS STRUCTURES: No acute abnormality. XR/XR chest 2V IMPRESSION: No acute findings. Electronically authenticated by: ANGELO CASTRO Date: 06/05/2024 22:13
[2024-06-05 19:51] LABS: Basophils Absolute Auto 0.1 10^3/uL (0.0-0.1); Basophils Percent Auto 0.9 % (0.2-2.0); Eosinophils Absolute Auto 0.3 10^3/uL (0.0-0.7); Hematocrit 37.9 % (36.0-48.0); Hemoglobin 12.3 g/dL (12.0-16.0); Immature Granulocytes Abs Auto 0.04 10^3/uL (0.00-0.03); Immature Granulocytes Pct Auto 0.3 % (0.0-0.5); Lymphocytes Absolute Auto 4.7 10^3/uL (1.2-3.8); Lymphocytes Percent Auto 36.7 % (20.5-60.0); Mean Corpuscular HGB Conc 32.5 g/dL (29.9-35.2); Mean Corpuscular Volume 86.1 fL (81.0-99.0); Mean Platelet Volume 9.1 fL (9.5-13.5); Monocytes Absolute Auto 0.7 10^3/uL (0.3-0.8); Monocytes Percent Auto 5.7 % (1.7-12.0); Neutrophils Absolute Auto 6.9 10^3/uL (1.4-6.5); Neutrophils Percent Auto 54.4 % (43.0-75.0); Platelet Count 439 10^3/uL (150-450); White Blood Count 12.7 10^3/uL (4.0-11.0)
[2024-06-05 20:03] LABS: Alanine Aminotransferase 27 U/L (14-59); Albumin Globulin Ratio 0.9; Albumin Level 3.6 g/dL (3.4-5.0); Alkaline Phosphatase 61 U/L (46-116); Anion Gap 17.7; Aspartate Amino Transferase 16 U/L (15-37); BUN Creatinine Ratio 10.4; Bilirubin Total 0.2 mg/dL (0.2-1.0); Calcium 9.5 mg/dL (8.5-10.1); Carbon Dioxide 26.1 mmol/L (21.0-32.0); Chloride 103 mmol/L (98-107); Estimated GFR (African America >60 (>=60 mL/min/1.73m^2); Estimated GFR (Non-African Ame >60 (>=60 mL/min/1.73m^2); Globulin 3.8 g/dL; Glucose 100 mg/dL (74-106); Potassium 3.8 mmol/L (3.5-5.1); Sodium 143 mmol/L (136-145); Total Protein 7.4 g/dL (6.4-8.2)
[2024-06-05 20:06] LABS: Troponin I High Sensitivity <4.0 pg/mL (4.0-51.3)
--- NOTE | 2024-06-05 20:15 | ED.GENADUL1 ---
HPI HPI - General Adult General Chief complaint: Chest Pain Stated complaint: CHEST PAIN Time Seen by Provider: 06/05/24 19:31 Source: patient Mode of arrival: walk-in History of Present Illness HPI narrative: 28-year-old female presenting with chief complaint of chest pain. She denies radiation of pain states pain is worse with movement and range of motion. She does have a history of preeclampsia with chronic superimposed hypertension. That has been controlled. She is not currently . Denies any injury or trauma. Denies any shortness of breath. Vital signs are stable. Related Data Home Medications ?Medication ?Instructions ?Recorded ?Confirmed albuterol sulfate 90 mcg/actuation 1 inh inhalation Q6H PRN shortness 07/02/23 06/05/24 aerosol inhaler of breath or wheezing labetalol 200 mg tablet 200 mg PO DAILY 07/02/23 06/05/24 omeprazole 20 mg capsule,delayed 20 mg PO DAILY 06/05/24 06/05/24 release venlafaxine 75 mg tablet 75 mg PO DAILY 06/05/24 06/05/24 Previous Rx's ?Medication ?Instructions ?Recorded ibuprofen 600 mg tablet 600 mg PO Q8H PRN pain #30 tabs 06/05/24 Allergies Allergy/AdvReac Type Severity Reaction Status Date / Time azithromycin (From Zithromax) Allergy Hives Verified 06/05/24 19:36 ketorolac (From Toradol) Allergy Hives Verified 06/05/24 19:36 tramadol (From Ultram) Allergy Hives Verified 06/05/24 19:36 walnuts Allergy Severe Anaphylaxis Uncoded 06/05/24 19:36 Opioid HPI Opioid Management Most Recent Opioid Data: No Data to Display Review of Systems ROS Narrative All Systems are negative except as noted/marked.All systems reviewed and otherwise negative PFSH PFSH Social History Little interest or pleasure in doing things: not at all Feeling down, depressed, or hopeless: not at all Exam Narrative Exam Narrative: Nurses note and vital signs reviewed and patient is not hypoxic. General: The patient appears well and in no apparent distress. Patient is resting comfortably on cart. Skin: Warm, dry, no pallor noted. There is no rash noted. Head: Normocephalic, atraumatic Eye: Normal conjunctiva, no drainage, EOMI. PERRL Ears, Nose, Mouth, and Throat: oral mucosa is moist. Nares patent. Mouth without vesicles. Ear canals patent. Tm's without Erythema Cardiovascular: Regular Rate and Rhythm Respiratory: Patient is in no distress, no accessory muscle use, lungs are clear to auscultation, no wheezing, rales or rhonchi Back: non-tender, no CVA tenderness bilaterally to percussion. GI: Normal bowel sounds, no tenderness to palpation, no masses appreciated. No rebound, guarding, or rigidity noted. Musculoskeletal: The patient has no evidence of calf tenderness, no pitting edema, symmetrical pulses noted bilaterally Neurological: A&O x4, normal speech Psychiatric: Cooperative Constitutional Vital Signs, click to edit/add: Last Vital Signs Temp 98.3 F 06/05/24 19:28 Pulse 78 06/05/24 20:29 Resp 20 06/05/24 20:29 BP 131/83 06/05/24 20:29 Pulse Ox 99 06/05/24 20:29 O2 Del Method Room Air 06/05/24 20:29 Course Vital Signs Vital signs: Vital Signs Temperature 98.3 F 06/05/24 19:28 Pulse Rate 81 06/05/24 19:28 Respiratory Rate 18 06/05/24 19:28 Blood Pressure 164/118 H 06/05/24 19:28 Pulse Oximetry 100 06/05/24 19:28 Oxygen Delivery Method Room Air 06/05/24 19:28 Temperature 98.3 F 06/05/24 19:28 Pulse Rate 78 06/05/24 20:29 Respiratory Rate 20 06/05/24 20:29 Blood Pressure 131/83 06/05/24 20:29 Pulse Oximetry 99 06/05/24 20:29 Oxygen Delivery Method Room Air 06/05/24 20:29 Medical Decision Making Differential Diagnosis Differential Diagnosis: Chest pain, muscle strain, musculoskeletal pain Medical Records Medical records reviewed: Yes I reviewed the patient's medical records Lab Data Lab results reviewed: Yes I reviewed the patient's lab results Labs: Lab Results 06/05/24 Range/Units 19:35 WBC 12.7 H (4.0-11.0) 10^3/uL RBC 4.40 (4.20-5.40) 10^6/uL Hgb 12.3 (12.0-16.0) g/dL Hct 37.9 (36.0-48.0) % MCV 86.1 (81.0-99.0) fL MCH 28.0 (26.7-34.0) pg MCHC 32.5 (29.9-35.2) g/dL RDW 13.0 (11.0-15.0) % Plt Count 439 (150-450) 10^3/uL MPV 9.1 L (9.5-13.5) fL Neut % (Auto) 54.4 (43.0-75.0) % Lymph % (Auto) 36.7 (20.5-60.0) % Howell % (Auto) 5.7 (1.7-12.0) % Eos % (Auto) 2.0 (0.9-7.0) % Baso % (Auto) 0.9 (0.2-2.0) % Neut # (Auto) 6.9 H (1.4-6.5) 10^3/uL Lymph # (Auto) 4.7 H (1.2-3.8) 10^3/uL Howell # (Auto) 0.7 (0.3-0.8) 10^3/uL Eos # (Auto) 0.3 (0.0-0.7) 10^3/uL Baso # (Auto) 0.1 (0.0-0.1) 10^3/uL Abs Immat Gran (auto) 0.04 H (0.00-0.03) 10^3/uL Imm/Tot Granulo (auto) 0.3 (0.0-0.5) % Sodium 143 (136-145) mmol/L Potassium 3.8 (3.5-5.1) mmol/L Chloride 103 (98-107) mmol/L Carbon Dioxide 26.1 (21.0-32.0) mmol/L Anion Gap 17.7 BUN 10.0 (7.0-18.0) mg/dL Creatinine 0.96 (0.55-1.02) mg/dL Est GFR ( Amer) >60 (>=60 mL/min/1.73m^2) Est GFR (Non-Af Amer) >60 (>=60 mL/min/1.73m^2) BUN/Creatinine Ratio 10.4 Glucose 100 (74-106) mg/dL Calcium 9.5 (8.5-10.1) mg/dL Total Bilirubin 0.2 (0.2-1.0) mg/dL AST 16 (15-37) U/L ALT 27 (14-59) U/L Alkaline Phosphatase 61 (46-116) U/L Troponin I High Sens <4.0 L (4.0-51.3) pg/mL Total Protein 7.4 (6.4-8.2) g/dL Albumin 3.6 (3.4-5.0) g/dL Globulin 3.8 g/dL Albumin/Globulin Ratio 0.9 Imaging Data Chest x-ray: My impression: He is negative Radiologist's impression: ITS Impressions Chest X-Ray 06/05/24 19:45 IMPRESSION: No acute findings. Electronically authenticated by: ANGELO CASTRO Date: 06/05/2024 22:13 ECG Data Interpretation: 1935 with a rate of 69 bpm SD interval 118 ms QRS duration 90 ms, no ST elevation depression no STEMI Discharge Plan Discharge Chief Complaint: Chest Pain Clinical Impression: Chest wall pain Patient Disposition: Home, Self-Care Time of Disposition Decision: 20:14 Condition: Good Prescriptions / Home Meds: New ibuprofen 600 mg tablet 600 mg PO Q8H PRN (Reason: pain) Qty: 30 0RF No Action albuterol sulfate 90 mcg/actuation HFA aerosol inhaler 1 inh inhalation Q6H PRN (Reason: shortness of breath or wheezing) labetalol 200 mg tablet 200 mg PO DAILY venlafaxine 75 mg tablet 75 mg PO DAILY omeprazole 20 mg capsule,delayed release(DR/EC) 20 mg PO DAILY Print Language: Portuguese Instructions: Chest Wall Pain (ED) Referrals: JOHN GUERRA [Primary Care Provider] - 1 week Discharge Date/Time: 06/05/24 20:30
[2024-06-05] MEDS: IBUPROFEN 400 MG TABLET 800 MG PO (20:25)
[2024-06-05 20:29] VITALS: BP 131/83; PULSE 78; O2SAT 99
== END 2024-06-05 20:30 | disposition home or self-care (01) ==
PROVIDERS: Physician Assistant; Emergency Provider Internal Medicine; PCP Family Medicine
DX: R07.89 Other chest pain (principal); I10 Essential (primary) hypertension
CPT/HCPCS: 36415; 71046; 80053; 84484; 85025; 93005; 99285

== ENCOUNTER 2024-08-15 14:06 | Emergency (ER) | payer BC, SELFPAY ==
[2024-08-15 14:13] VITALS: BP 158/98; PULSE 96; TEMP 36.7; O2SAT 98; BMI 34.5
--- OUTSIDE RECORDS SUMMARY | 2024-08-15 14:22 | XMS_ITS | CCD ---
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 Tax Collector Name Role Phone HOYMORIAH Unavailable Unavailable HOY, MORIAH Unavailable Unavailable SELF, REFERRED Unavailable Unavailable HOY, MORIAH Unavailable Unavailable [facility], DR LIRA Primary Care Unavailable EMILI ., DR RICO Attending Unavailable EMILI ., DR RICO Consulting Unavailable EMILI ., DR RICO Admitting Unavailable Alfonzo Guerra MD Primary Care Provider Alfonzo Guerra MD Primary Care Provider ALFONZO GUERRA Primary Care Unavailable STEVE ARREOLA [...] Referring Unavailable ALFONZO GUERRA Primary Care Unavailable YANELIS GRARIDO Attending Unavailable CONTRERAS MOCK Referring Unavailable ALFONZO GUERRA Primary Care Unavailable ALFONZO GUERRA Referring Unavailable ALFONZO GUERRA Primary Care Unavailable CONTRERAS MOCK Attending Unavailable EMILI, CONTRERAS Attending Unavailable EMILI, CONTRERAS Attending Unavailable EMILI, CONTRERAS Attending Unavailable EMILI, CONTRERAS Attending Unavailable EMILI, CONTRERAS Attending Unavailable EMILI, CONTRERAS Attending Unavailable EMILI, CONTRERAS Attending Unavailable RAYMOND, OLGA Attending Unavailable Unavailable Primary Care Provider Unavailabl e HOUSE, DINORAH P Primary Care Unavailable HOUSE, DO DINORAH P Attending Unavailable HOUSE, DO DINORAH P Attending Unavailable HOUSE, DINORAH P Primary Care Unavailable HOUSE, DO DINORAH P Admitting Unavailable HOUSE, DO DINORAH P Attending Unavailable HOUSE, DINORAH P Primary Care Unavailable HOUSE, DINORAH P Primary Care Unavailable HOUSE, DO DINORAH P Attending Unavailable HOUSE, DINORAH P Primary Care Unavailable HOUSE, DINORAH P Primary Care Unavailable HOUSE, DO DINORAH P Attending Unavailable Alfonzo Guerra MD Primary Care Unavailable HOUSE, DO DINORAH P Attending Unavailable HOUSE, DO DINORAH P Attending Unavailable HOUSE, DINORAH P Primary Care Unavailable HOUSE, DINORAH P Primary Care Unavailable Allergies Allergy Classification Reported Allergen(s) Allergy Type Date of Onset Reaction(s) Facility (2 sources) azithromycin Drug Allergy 0 [facility] Repository (3 sources) ketorolac; Translations: [Toradol] Drug Allergy 0 [facility] Repository (2 sources) traMADol Drug Allergy 0 [facility] Repository (1 source) Iodine (And Iodine Containting Drugs) Drug allergy (disorder) 5 [facility] Repository (20 sources) Azithromycin; Translations: [AZITHROMYCIN] Drug Allergy 4 [facility] (20 sources) Contrast media; Translations: [DYE] Propensity to adverse reactions to drug 8 [facility] (20 sources) Ketorolac; Translations: [KETOROLAC] Drug Allergy 4 [facility] (20 sources) traMADol; Translations: [TRAMADOL] Drug Allergy 4 [facility] (15 sources) Ketorolac trometamol Allergy to substance 4 [facility] (15 sources) Other Propensity to adverse reactions 8 [facility] (1 source) Contrast media; Translations: [Contrast Dye] Propensity to adverse reactions to drug (disorder) [facility] Repository Medications Current Medications Medication Drug Class(es) Dates Sig (Normalized) Sig (Original) acetaminophen 500 mg oral tablet (7 sources) Start: 10-12-2023 take 2 tablets by mouth every eight hours acetaminophen (TYLENOL EXTRA STRENGTH) 500 mg tablet Take 2 tablets (1,000 mg total) by mouth every 8 (eight) hours. 30 tablet 10/12/2023 Active docusate sodium 100 mg oral capsule (13 sources) Start: 06-05-2021 take 1 capsule by mouth twice daily docusate sodium (COLACE) 100 mg capsule Take 1 capsule (100 mg total) by mouth 2 (two) times a day. 10 capsule 0 06/05/2021 Active ferrous sulfate 325 mg oral tablet (7 sources) Start: 10-12-2023 End: 11-11-2023 take 1 tablet by mouth once daily at breakfast ferrous sulfate 325 (65 FE) mg tablet Take 1 tablet (325 mg total) by mouth daily with breakfast for 30 days. 30 tablet 10/12/2023 11/11/2023 Active ibuprofen 800 mg oral tablet (7 sources) Nonsteroidal Anti-inflammatory Drug Start: 10-12-2023 take 1 tablet by mouth every eight hours as needed for headache and fever and pain ibuprofen (MOTRIN) 800 mg tablet Take 1 tablet (800 mg total) by mouth every 8 (eight) hours as needed for headaches, fever or pain. 30 tablet 10/12/2023 Active labetalol hydrochloride 300 mg oral [...] 270 tablet 3 07/20/2023 07/19/2024 Active take 1 tablet by mouth once labe talol (Normodyne) 200 MG tablet Take 200 mg by mouth 1 (one) time Active End: 06-29-2024 labetalol (Normodyne) 300 MG tablet Take 200 mg by mouth in the morning and 200 mg before bedtime. 06/29/2024 Discontinued take 3 tablets by mo uth in the morning, then take 3 tablets by mouth at bedtime labetaloL (NORMODYNE) 100 mg tablet Take 3 tablets (300 mg total) by mouth in the morning and 3 tablets (300 mg total) before bedtime. 0 Active levothyroxine sodium 0.075 mg oral tablet (20 sources) l-Thyroxine Start: 08-04-2023 take 1 tablet [...] tablet 10 08/04/2023 Active Start: 07-30-2023 End: 03-08-2024 take 1 tablet by mouth in the morning levothyroxine (SYNTHROID, LEVOTHROID) 75 MCG tablet Take 1 tablet (75 mcg total) by mouth in the morning. 60 tablet 2 10/13/2023 Active Start: 06-19-2023 End: 08-04-2023 take 1 tablet by mouth once in the morning levothyroxine (SYNTHROID, LEVOTHROID) 75 MCG tablet Indications: History of delivery, currently , 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 trimester Take 1 tablet (75 mcg total) by mouth in the morning. 30 tablet 3 06/19/2023 08/04/2023 Discontinued End: 06-29-2024 take 1 tablet by mouth before mealtime levothyroxine (Synthroid, Levoxyl) 100 MCG tablet Take 100 mcg by mouth in the morning. Take before meals. 06/29/2024 Discontinued 24 hr metFORMIN hydrochloride 500 mg extended release oral tablet (9 sources) Biguanide Start: 05-03-2024 End: 05-03-2025 take 1 tablet by mouth every twenty-four hours at mealtime metFORMIN XR (Glucophage-XR) 500 MG 24 hr tablet Indications: Insulin resistance Take 1 tablet (500 mg) by mouth in the evening. Take with meals Do not crush, chew, or split. 30 tablet 11 05/03/2024 05/03/2025 Active metoclopramide 10 mg oral tablet (20 sources) Dopamine-2 Receptor Antagonist Start: 05-07-2023 take [...] 1 tablet (5 mg total) before bedtime. Active NIFEdipine 30 mg osmotic 24 hr extended release oral tablet (20 sources) Dihydropyridine Calcium Channel Cheyanne Start: 10-12-2023 take 1 tablet by mouth every twenty-four hours in the morning NIFEdipine XL (PROCARDIA XL) 30 mg 24 hr tablet Take 1 tablet (30 mg total) by mouth in the morning. 30 tablet 2 10/12/2023 Active End: 06-29-2024 NIFEdipine (Procardia) 20 MG capsule Take 30 mg by mouth Daily 06/29/2024 Discontinued End: 08-04-2023 take 1 tablet by mouth [...] Active ondansetron 4 mg disintegrating oral tablet (20 sources) Serotonin-3 Receptor Antagonist Start: 05-29-2023 ondansetron ODT (ZOFRAN ODT) 4 mg disintegrating tablet Dissolve 1 tablet (4 mg total) on tongue 3 (three) times a day as needed for nausea for up to 3 doses. 3 tablet 05/29/2023 Active End: 08-04-2023 take 1 tablet [...] pantoprazole 40 mg delayed release oral tablet (7 sources) Proton Pump Inhibitor Start: 10-13-2023 take 1 tablet by mouth in the morning pantoprazole (PROTONIX) 40 mg EC tablet Take 1 tablet (40 mg total) by mouth in the morning. 60 tablet 2 10/13/2023 Active phentermine hydrochloride 37.5 mg oral tablet (5 sources) Sympathomimetic Amine Anorectic Start: 05-30-2024 End: 06-29-2024 take 1 tablet by mouth before mealtime phentermine (Adipex-P) 37.5 MG tablet Indications: Encounter for weight management Take 1 tablet (37.5 mg) by mouth in the morning. Take before meals. 30 tablet 05/30/2024 Active pyridoxine hydrochloride 25 mg oral tablet (2 sources) take 1 tablet by mouth in the morning pyridoxine (Vitamin B-6) 25 MG tablet Take 25 mg by mouth in the morning. 0 Active 24 hr venlafaxine 75 mg extended release oral capsule (16 sources) Serotonin and Norepinephrine Reuptake Inhibitor Start: [...] or chew. 30 capsule 05/03/2024 05/30/2024 Discontinued Completed/Discontinued Medications Medication Drug Class(es) Dates Sig (Normalized) Sig (Original) buPROPion hydrochloride 100 mg oral tablet (1 source) Aminoketone End: 08-04-2023 take 3 tablets by mouth once daily buPROPion (WELLBUTRIN) 100 mg tablet Take 300 mg by mouth daily. 0 08/04/2023 Discontinued (Therapy completed) escitalopram 10 mg oral tablet (20 sources) Serotonin Reuptake Inhibitor Start: 10-26-2023 End: 10-25-2024 take 1 tablet by mouth once daily escitalopram (Lexapro) 10 MG tablet Indications: Other depression (CMS/HCC) , Anxiety Take 1 tablet (10 mg) by mouth Daily 30 tablet 11 10/26/2023 03/08/2024 Discontinued (Ineffective) Start: 07-07-2023 End: 05-03-2024 take 1 tablet [...] 0 08/04/2023 Discontinued (Patient Stopped On Own) topiramate 50 mg oral tablet (9 sources) Start: 04-27-2024 End: 06-29-2024 Topamax 50 MG tablet 50 mg 04/27/2024 06/29/2024 Discontinued vitamin b12 1 mg oral capsule (15 sources) Vitamin B12 End: 06-29-2024 take 1 capsule by mouth in the morning Cyanocobalamin (B-12) 1000 MCG capsule Take 1 capsule by mouth in the morning. 06/29/2024 Discontinued Problems Active Problems Problem Classification Problem Date Documented Date Episodic/Chronic Abdominal pain (1 source) Right upper quadrant pain; Translations: [Right upper quadrant pain] Onset: 10-20-2023 Episodic Anxiety disorders (17 sources) Anxiety; Translations: [Anxiety disorder, unspecified] Onset: 02-12-2023 02-12-2023 Chronic Asthma (15 sources) Asthma; Translations: [Unspecified asthma, uncomplicated] Onset: 02-12-2023 02-12-2023 Chronic Esophageal disorders (15 sources) Gastroesophageal reflux disease; Translations: [Gastro-esophageal reflux disease without esophagitis] Onset: 02-12-2023 02-12-2023 Chronic Essential hypertension (20 sources) Essential hypertension; Translations: [Essential (primary) hypertension] Onset: 02-12-2023 03-01-2021 Chronic Headache; including migraine (15 sources) Migraine; Translations: [Migraine, unspecified, not intractable, without status migrainosus] Onset: 02-12-2023 02-12-2023 Chronic Hypertension complicating ; childbirth and the puerperium (5 sources) Chronic hypertension complicating AND/OR reason for care during ; Translations: [Unspecified pre-existing hypertension complicating , unspecified trimester] Onset: 09-27-2023 08-04-2023 Chronic Hypertension complicating ; childbirth and the puerperium (9 sources) Severe pre-eclampsia; Translations: [Severe pre-eclampsia complicating childbirth] Onset: 09-27-2023 09-27-2023 Episodic Joint disorders and dislocations; trauma-related (4 sources) Unspecified internal derangement of left knee; Translations: [UNSPECIFIED INTERNAL DERANGEMENT OF LEFT KNEE] Onset: 04-18-2017 Chronic Miscellaneous mental health disorders (1 source) Psychosomatic factor in physical condition; Translations: [Psychological and behavioral factors associated with disorders or diseases classified elsewhere] 08-05-2024 Chronic Miscellaneous mental health disorders (6 sources) depression; Translations: [ depression] 05-03-2024 Episodic Mood disorders (15 sources) Depressive disorder; Translations: [Depression] Onset: 02-12-2023 02-12-2023 Chronic Other complications of (1 source) Obesity complicating , unspecified trimester; Translations: [Obesity complicating , unspecified trimester] Onset: 09-27-2023 Chronic Other complications of (2 sources) Thyroid disease [...] trimester] Onset: 08-04-2023 Episodic Other endocrine disorders (15 sources) Polycystic ovary syndrome; Translations: [Polycystic ovarian syndrome] Onset: 02-12-2023 02-12-2023 Chronic Other nutritional; endocrine; and metabolic disorders (15 sources) Morbid obesity; Translations: [Morbid (severe) obesity due to excess calories] Onset: 02-12-2023 02-12-2023 Chronic Other nutritional; endocrine; and metabolic disorders (2 sources) Insulin resistance; Translations: [Insulin resistance] 05-03-2024 Chronic Other nutritional; endocrine; and metabolic disorders (1 source) Obesity; Translations: [Obesity, unspecified] 08-05-2024 Chronic Other and delivery including normal (2 sources) Second trimester ; Translations: [Encounter for supervision of normal , unspecified, second trimester] 08-12-2023 Episodic Other screening for suspected conditions (not mental disorders or infectious disease) (10 sources) Patient encounter status; Translations: [Encounter for screening for diabetes mellitus] Onset: 08-04-2023 08-18-2023 Episodic Other upper respiratory disease (15 sources) Seasonal allergic rhinitis; Translations: [Other seasonal [...] unspecified; Translations: [Hypothyroidism, unspecified] Onset: 06-19-2023 Chronic Unclassified (2 sources) Unknown / UNK(Unknown) Onset: 04-18-2017 Unclassified (15 sources) OB Reminders Onset: 05-11-2023 05-11-2023 Past or Other Problems Problem Classification Problem Date Documented Da te Episodic/Chronic Mood disorders (20 sources) Mood disorders Onset: 07-11-2020 07-11-2020 Other bone disease and musculoskeletal deformities (1 source) Chondromalacia, left knee; Translations: [CHONDROMALACIA, LEFT KNEE] Onset: 04-18-2017 Episodic Other complications of (20 sources) Disorder of ; Translations: [Maternal care for other known or suspected poor growth, unspecified trimester, not applicable or unspecified] Onset: 05-28-2021 05-28-2021 Episodic Other complications of (20 sources) H/O: premature delivery; Translations: [Supervision of other high risk pregnancies, unspecified trimester] Onset: 06-19-2023 06-19-2023 Episodic Other complications of (20 sources) Hypothyroidism in ; Translations: [Endocrine, nutritional and metabolic diseases complicating , second trimester] Onset: 06-19-2023 06-19-2023 Episodic Other complications of (20 sources) History of pre-eclampsia; Translations: [Supervision of with other poor reproductive or obstetric history, second trimester] Onset: 08-04-2023 08-04-2023 Episodic Other complications of (20 sources) Poor growth affecting management; Translations: [Maternal care for other known or suspected poor growth, second trimester, not applicable or unspecified] Onset: 08-04-2023 08-04-2023 Episodic Other complications of (1 source) Maternal [...] trimester] Onset: 06-19-2023 Episodic Other complications of (10 sources) care status; Translations: [Maternal care for other known or suspected poor growth, unspecified trimester, not applicable or unspecified] Onset: 05-28-2021 02-12-2023 Episodic Residual codes; unclassified (15 sources) Insomnia; Translations: [Insomnia, unspecified] Onset: 02-12-2023 02-12-2023 Episodic Thyroid disorders (20 sources) Disorder of thyroid gland; Translations: [Disorder of thyroid, unspecified] 03-01-2021 Episodic Results Test Name Value Interpretation Reference Range Facility Coding Summaryon 08-08-2024 Coding Summary HTMLBase 64 VrtnwjjyEVh9uLc+PGhlYWQ+PE1F TTBpY12kdZErtD0hR0AKYKxZYyrb ETXUAPzRVcQkclGiOL6dkQWmNQPu IC8+KK2oJKGgMkczjBKjb9V1ySK7 R00hpo1cSUawrQA9SLUtAuWeebgb j6wxwFk0XMgqVyhuDoOc KRQriY72ABE9gJ11Gw89cLHtkUWs m6rzdTx0BcWuAPNaLBK5qRhcOIxp l9TqAUMdN36hjZDze5P0 WLGrqKcfsFSjQjZzaKD5oY0kGLpy pfcjp6shvkfvFet6vj47aHNnw7X7 xMQ1Q6UcspW7KJMxkEMz IgstfVVNzJ4imucdq7tvqwouOcPc UKLfHHp4LWm6BZCoiOxrIyBrFN70 RJU9BUOpqfXbT0GgNBCl cMyxMuY9u6O6Eq4FM4EBMtkzJ4MZ TUFSWTwvdGQ+GU11kl57B6JcRmhz Owg0SWVkMIH1sLL5kV6y YFPfRJvxd6Y7iWU2S5AvygHccn4u u9jgJOQxLAlbJ34dqPCce6K7ZENa rIE5VDMetMmnZrXreY28 Oyc+AEPyoLyfl0OwYrhjd9pac7mh bIv1WkfaVDBrqaQzwKqjYDT4n4Vy On6iYUJxvSE2pKR7iH2m TdFwRmW7RGuaV574NdJlaDUcNeco Z39fN8WtjYI+UDIaMtn2ENBiaGnn RI6eM7KpSJHcvjzpkEQp mRhuXC6oKFYchavnWYSsvE9yWYGd C2v0AyLfKeB8YRlrZ7LbBAFvlmim Gc33uA8uBzZeZpP4JEyk K0GrexJ4GBPtsXSdJQiaLUX2T62p w6F7HISeXHBmBUG8nME7aZ1vzNig bjogbGVmdDsgdmVydGlj RMiyICxjY766IWNurDpeOsJcPCid ZyBEYXRlOiAgMDEvMjcvMjAyNTwv dGQ+UZDnPUR2lDzzCEZy aNTwFWvmJd1vrViuzXpvBQ5iYAMh piybNSLzlD9wXVSdhJNnfJnzLP2q FUIctrvjz650NvBvQWN1 IRQkcYLfP6AxgP9kObLjADVgCFWk H3HvbAWlXFtgT516ZCjpGsE5WNHb edWeE7NuDPXbeWfdZgH1 q7I6Oh1Vx2MabeooE8FpfBPmOxDm LxuxJLo7K9OzXfxscYZ+NO14HQZi HF26TRn9FLL5qDpsKXtj XAMkN9TlnZ9zWqFpVNSuEIEoJgw+ PHRhYmxlIHdpZHRoPScxMDAlJyBz wVltLT8nNy9cJYXbQGHm tTsfjBUwRgKzz7tyRWWpGKclIP2v nDnwT1EqxRG6BEDao2o8Ir68Z73x I6KbtOD+YAUahDE8qXI6 mO2rJfTwGhK0YKllZ683IlRhwECg Pmdib1liu1dmzGf1NqP4HBTaqnLq jSwsANJ1u8HuBg36J85d BFieVDNbFOClQSCmELQyxPoxrj1f oK9bDu1+BPYijNK6fRC6lZ4nLdMj SaZ4CTiiO561OjJmeWJg Xthvu5mjw3cwbUn2XlMyBWBqmsCn xXsgARK6b7BfOz22X3TagTmtv1Xt Pvc9sc40aBXlb9D3wXQ3 R2ZsWQWqhzyurVWqpXvdOV6mUUOs omtbVNBbuA4bOIWiW9n5LcDnZbP6 IPxeF1OqrtS2BKRugFUo GYNkzAJFrJ8ffuvtz0noaxgdHlNf RQLbCMb5IIm3DIYiuQhgQgWhVIS3 IlK6JVN9pNYdsX4avQsk muhaaJ1lHph+EXR5rQVrkPWEHM2d OjwvdGQ+KXPfKUI7cUfoJPghQTAx yT2fOPPdS8j9FgOnLdG4 CVqwQ5LwlvX9QFGqsKRqHGOchOLA zP8ysiuxl3ayryzaZsNmKEEhSPj5 ORl6XPWljEhrWtYiDHW7 YgP6REO0zBPtjE1oiSeajtrisS8j Oyc+JknbmXbrDWN4RKf8Q8VeGuo4 GYFqiXtrMR8dwIDdHOgy Yg8tcXyuhIktYF1tZEJsrcnux161 NpTfk1mzCJOabVIaBHqxOBL6W92d j0X0VGPfZMTjEQO9gZT7 bE4vqGoikhewwBYcdZhstbYxlArk GBqxQTgdX038UIEltAqvYzPgWKu3 U0BiDzi7EPEsfSkeTS9q oJLmWQqmUa1stAnnjPyfDC6eESKo vcsdk622IvBtk6ugZBRffZThDHvp XIN3R90dp0A3GUKmDTGc EOZ7jXM9mP2urHotwqgjxNCopYqr hySflIbxAPpxFVdcE259WEXetJlt MxFwkCs6L6CyTxg9CEKr aCocYD8giVBiHOhqWn1tgLrmkCov JU6gQETtxfkyt640AuVel3osDITc ySVbYRmfZFR5I32jg1N3 FIKzEXMdGBZ1yEY7sX3mbXxxfqbg eNFdrRqteyCxsCixAXkwSJrpS582 IHRvcDsnPlBhdGllbnQg IHrpMAh2B3GsKxqagRL+QS87RVVw UD55wIAtzSYdf8spjLb3UgKwTUUt AYV1fSgeWHrrl9HfJTRx H70caMJjn5W1ZFOaaMhdrBAgNoPw wRN1gE9bWGrqnludf1ckqrlpTyge b2ytvl87kE84I63nLEna YVPoWBMrCJRfANAbmSqceq7ldK8t Ii8+KSJqkWZ9lJX8tR1qERHiErA3 WNldV642XsTpuNGaMcnb r7dth2jbxXv9ZyH8UUAoepWqzEzv TTS7i0GtTj61J21eIPgvOEAfHVXt QPIuWJRfrHwhgd8fqM2l Ii8+ORRatCW2zYZ4qG7jHvJjVcU5 CQviM523KvOunVGfRponB20tA5Hc dXA+DJWwEfx3LZFesLfa NZ0tsRCsGXdkEt0zTIY6PpRfNpUf UAepM9TzSDSwnuwgiwsjpOJ1ONYj TCXosW55Wu0yoKchDEGb sESKeU1fysqhu3sromqoJxYaAIMr NWy2EVs9OUDagYhaDfHbOKR8NiH7 SWZ3fUTgaU3mcSpdabif mZ5jK3CwZIHbbyctNy49iK4nEnOv QkN0NWycEab+U9qML3yYOxxtADKB J4AaQH9WEF70JO58jOJb r1Y0tTA7B8GvCCRthyvxtylckVF0 HQNlMJGxiV49tFHqYQpiCc7ne2K5 b267RSJgYOThlZ08Da2c xIrzTGXtxPWLxO7geknof5bbmnxn EwAsDUMlVFf4VGc9KRMdfQsvErRj MHU7HwB9SVE9kINgfV4l iXsycpjzrS8lHyb+MDMvMTIvMTk5 NzwvdGQ+RWNgAFT9xQsuGDisAWXo cC1lMVUgZ9b0WzLuVoY3 FNqgK1ZoVNDttoclMl96hB4nAmYs CbJ4XXbyK3QripI3YRTjzPBaRAes CXB0S45dh7B9JNAaFEGa NAQ9yKR4yD4dlIdcoektoQWpeOkp chXgcJxkTLypWHmcY692SKZdiQkj KoY0VEkpNRPoLR00UT15 iCMom0M2qFF3V1VuMPHayvsjavzt nFZ8ZIJkTTYuuQ99uEGmDCyrYd3p c7I8l880CWQlSORbfZ44 Vn4woAgnOMJwaYHLcL1kjshue9eb vnwgIgAsREQcBHc0RDq1SLJvtIhl ApPlFPA3JxY8EEX8mVGf aE1xbNqpjhscjG9fPms+RkVNQUxF WA69MS73rIHiy5R3vZD3J2HbSXNa hnidixwrcKA6YRFlHMWs kI00sQWxGLofAf3hk6R3f863CTTr VKIepX93Je4ziUagQUAhvGOExO6j iiabp4uwavkhCrWzKRZb WLb9JBo9JFUskGdhIkTdAZB8EeG2 PWI4tLFzlI7oaHpdgguliA9yEwc+ N4D0V6SeXotsuJV+PC90 KUUnRT53uEGpvCPtp2lvsBh2RiZz WNMeDYP9aKdxVCfdq7VnFFBwR85l dGMqg3L0PROquSebfRTi WcKtaJJ8eE9xWOgdjvdde9ncikro Txsms8sttf99fQ99D66rXDnhFSZq AESmTYZlSXZdzXkabx8c cL5aVi8+RTTqnPA0yGZ8oC8fNiSx LqA7YBldT363GoNaeUAvOyoeg1sj o1psrVu2PqPtIXKwpvId bOrsVBL8v9JgRl36P58aQQodFVLl HNCxWLQtHEYbwSigqf5kkH6kYg0+ BK0ei4hhav81xV17xEL+ HMUmGZB2eBooOVssRYLscX7gYDrl XcS9RSLzCkWeuW39nBPyTOayEb2r uNbrfXsbPR9mMUOjhvjf v856RcBxc1gjJHUkaXKmXWoqUSY7 E84um2U9VXEdLYSvYAF7vYF5mV8b bGlnbjogbGVmdDsgdmVy iRvrPAmzNXmgN936PLMwaDdcIvJd nLUfV3vqulADEX6fFvxtqTT+PHRk DJR3tUzsZOffEQYpeV3d KDUwQ3y0XnJlJwG0EJzsR4ZmkyQ3 YUVxuMReZXYssKXDxN5dgsdwt4tk ovhrUhWwMKKrQXd6AWw4 HZQmtIiuLbAlTKI7KvE5JJI8pAUh kV0cnCkbvfpjyU9aZub+RklOOjwv dGQ+EHXpSEO4yQubQGnw BNGvkW9dXEJuK3i4IhByNxC0YEfw Z7PbvfH8DYOhgLZqQXMhaRVJtV0t dbngj9iggswdOxWvQTFn KXd0DGt5QYEjbBxsCaVbEHR2KoZ2 ITR0nQFwtS6zuVqhyteehB6uBpr+ TVJOOjwvdGQ+PHRkIHN0 iHtgMQlxMEYszU5rRXZpX1l3OjNn TbP6ZDnxO4JqfaA7UUQqwOGeKOSo aLOEoO5unmixv7cmqybm KnQvXBKqKAo2UTr5DSMygDheTpPw FST6LuY3YEQ0pVYlpW1azJbfbiqu kS2mJhk+BCJ3MRZ4HA79 ZE15C1HgTzqlbNHcbQB+PHRhYmxl YXeiKCEwDVuvBIRlUxEcxGpoRD7y Fv1dRDKiDRVvzGqpzZDj OiB (more content not included)... Normal [facility] Reminder Messageson 08-04-19 Reminder Messages - From: DINORAH GILBERT DO To: [facility] Clinical Pool ([facility] Sent: 08/04/2024 11:14:17 EST ! Show up: 08/04/2024 11:14:17 EST Subject: Results Follow Up Actions: Call the patient with result(s) Due Date/Time: 08/05/2024 11:14:00 EST Reminder Comments: looks okay Results: Date Result Name Ind Value Ref Range 08/02/2024 11:54 Sodium Level 136.0 mmol/L (136.0 - 144.0) 08/02/2024 11:54 Potassium Level 3.7 mmol/L (3.6 - 5.1) 08/02/2024 11:54 Chloride Level 102 mmol/L (101 - 111) 08/02/2024 11:54 CO2 24 mmol/L (21 - 32) 08/02/2024 11:54 Anion Gap 13.7 mmol/L (5.0 - 19.0) 08/02/2024 11:54 Glucose Level 97.0 mg/dL (74.0 - 118.0) 08/02/2024 11:54 BUN 12 mg/dL (8 - 26) 08/02/2024 11:54 Creatinine Level 0.64 mg/dL (0.60 - 1.30) 08/02/2024 11:54 BUN/Creat Ratio (H) 18.7 (4.6 - 16.2) 08/02/2024 11:54 eGFR AA >60 mL/min/1.73m2 08/02/2024 11:54 eGFR Non AA >60 mL/min/1.73m2 08/02/2024 11:54 Calcium Level 8.9 mg/dL (8.9 - 10.3) 08/02/2024 11:54 Bili Total 0.4 mg/dL (0.3 - 1.2) 08/02/2024 11:54 Alk Phos 47 IU/L (32 - 91) 08/02/2024 11:54 AST/SGOT 22 IU/L (15 - 41) 08/02/2024 11:54 ALT/SGPT 21.0 IU/L (14.0 - 54.0) 08/02/2024 11:54 Protein Total 7.1 gm/dL (6.5 - 8.1) 08/02/2024 11:54 Albumin Level 3.8 gm/dL (3.5 - 5.0) 08/02/2024 11:54 Globulin 3.3 gm/dL (1.5 - 4.3) 08/02/2024 11:54 A/G Ratio (L) 1.1 (1.4 - 2.6) 08/02/2024 11:54 Osmolality 272 mOsm/L 08/02/2024 11:54 T4 8.36 mcg/dL (6.09 - 12.23) 08/02/2024 11:54 TSH 4.05 mcIU/mL (0.45 - 5.33) 08/02/2024 11:54 WBC (H) 11.1 x103/mcL (3.5 - 10.5) 08/02/2024 11:54 RBC 4.56 x106/mcL (3.70 - 5.30) 08/02/2024 11:54 Hgb 12.9 gm/dL (11.3 - 15.9) 08/02/2024 11:54 Hct 38.6 % (33.7 - 40.4) 08/02/2024 11:54 MCV 85 fL (81 - 100) 08/02/2024 11:54 MCH 28 pg (24 - 34) 08/02/2024 11:54 MCHC 34 gm/dL (26 - 37) 08/02/2024 11:54 RDW 13.8 % (11.5 - 15.0) 08/02/2024 11:54 Platelet (H) 439 x103/mcL (138 - 427) 08/02/2024 11:54 MPV 7.0 fL (6.3 - 10.2) 08/02/2024 11:54 Auto Neut % 58 % (44 - 88) 08/02/2024 11:54 Auto Lymph % 33 % (14 - 48) 08/02/2024 11:54 Auto [place] % 6 % (1 - 12) 08/02/2024 11:54 Auto Eos % 2.1 % (0.9 - 4.0) 08/02/2024 11:54 Auto Baso % 0.9 % (0.2 - 2.0) 08/02/2024 11:54 Neut Abs# 6.5 x103/mcL (1.5 - 9.2) 08/02/2024 11:54 Lymph Abs# (H) 3.7 x103/mcL (1.3 - 2.9) 08/02/2024 11:54 [place] Abs# 0.7 x103/mcL (0.0 - 0.8) 08/02/2024 11:54 Eos Abs# 0.2 x103/mcL (0.0 - 0.4) 08/02/2024 11:54 Baso Abs# 0.1 x103/mcL (0.0 - 0.2) pt notified Normal [facility] .Auto Diff 1on 08-02-2024 Auto [place] % 6 % Normal 1-12 [facility] Comment on above: Performed By: #### [id number] #### [facility] (DEFAULT) [address] [place] [address] Baso Abs# 0.1 x10 Normal 0.0-0.2 [facility] Comment on above: Performed By: #### [id number] #### [facility] (DEFAULT) [address] [place] [address] Basophils/100 WBC (Bld) 0.9 % Normal 0.2-2.0 [facility] Comment on above: Performed By: #### [id number] #### [facility] (DEFAULT) [address] [place] [address] Eos Abs# 0.2 x10 Normal 0.0-0.4 [facility] Comment on above: Performed By: #### [id number] #### [facility] (DEFAULT) [address] [place] [address] Eosinophils/100 WBC (Bld) 2.1 % Normal 0.9-4.0 [facility] Comment on above: Performed By: #### [id number] #### [facility] (DEFAULT) [address] [place] [address] Lymph Abs# 3.7 x10 High 1.3-2.9 [facility] Comment on above: Performed By: #### [id number] #### [facility] (DEFAULT) [address] [place] [address] Lymphocytes/100 WBC (Bld) 33 % Normal 14-48 [facility] Comment on above: Performed By: #### 7 802253, 11480366, 25044702, [id number], 4157789 #### [facility] (DEFAULT) [address] [place] [address] [place] Abs# 0.7 x10 Normal 0.0-0.8 [facility] Comment on above: Performed By: #### 7 691623, 28522672, 07125189, [id number], 2355963 #### [facility] (DEFAULT) [address] [place] [address] Neut Abs# 6.5 x10 Normal 1.5-9.2 [facility] Comment on above: Performed By: #### 7 030994, 93929277, 75138286, [id number], 1713380 #### [facility] (DEFAULT) [address] [place] [address] Neutrophils/100 WBC (Bld) 58 % Normal 44-88 [facility] Comment on above: Performed By: #### 7 417788, 09194665, 10189703, [id number], 2668833 #### [facility] (DEFAULT) [address] [place] [address] CBC w/ Auto Diffon 5 Erythrocyte distribution width (RBC) [Ratio] 13.8 % Normal 11.5-15.0 [facility] Comment on above: Performed By: #### 7 535820, 01554555, 23370558, [id number], 3035787 #### [facility] (DEFAULT) [address] [place] [address] Hematocrit (Bld) [Volume fraction] 38.6 % Normal 33.7-40.4 [facility] Comment on above: Performed By: #### 7 403525, 74720805, 79574759, [id number], 0904175 #### [facility] (DEFAULT) [address] [place] [address] Hemoglobin (Bld) [Mass/Vol] 12.9 g/dL Normal 11.3-15.9 [facility] Comment on above: Performed By: #### 7 776110, 84629645, 20794263, 5429508908, 3263913 #### [facility] (DEFAULT) [address] [place] [address] Man Diff? Auto Invalid Interpretation Code [facility] Comment on above: Performed By: #### 7 995939, 21104628, 97203919, [id number], 7917117 #### [facility] (DEFAULT) [address] [place] [address] MCH (RBC) [Entitic mass] 28 pg Normal 24-34 [facility] Comment on above: Performed By: #### 7 616153, 86485410, 12389433, [id number], 4163385 #### [facility] (DEFAULT) [address] [place] [address] MCHC (RBC) [Mass/Vol] 34 g/dL Normal 26-37 [facility] Comment on above: Performed By: #### 7 062252, 50628332, 90956030, 4165155518, 8011396 #### [facility] (DEFAULT) [address] [place] [address] MCV (RBC) [Entitic vol] 85 fL Normal 81-100 [facility] Comment on above: Performed By: #### 7 519945, 46416872, 42880570, [id number], 9891784 #### [facility] (DEFAULT) [address] [place] [address] Platelet 439 x10 High 138-427 [facility] Comment on above: Performed By: #### 7 784865, 82211333, 06453333, 5755162113, 8202067 #### [facility] (DEFAULT) [address] [place] [address] Platelet mean volume (Bld) [Entitic vol] 7.0 fL Normal 6.3-10.2 [facility] Comment on above: Performed By: #### 7 283375, 77230249, 08499550, 4710606782, 0107808 #### [facility] (DEFAULT) [address] [place] [address] RBC 4.56 x10 Normal 3.70-5.30 [facility] Comment on above: Performed By: #### 7 329249, 68054470, 66805021, 0340059232, 4412398 #### [facility] (DEFAULT) [address] [place] [address] WBC 11.1 x10 High 3.5-10.5 [facility] Comment on above: Performed By: #### 7 287232, 44446395, 12977351, 0676893243, 1954798 #### [facility] (DEFAULT) [address] [place] [address] CMP Standardon 08-02-2024 eGFR Non AA >60 Invalid Interpretation Code [facility] Comment on above: Performed By: #### 7 875036, 59426206, 71556475, [id number], 6921423 #### [facility] (DEFAULT) [address] [place] [address] eGFR AA >60 Invalid Interpretation Code [facility] Comment on above: Performed By: #### 7 166673, 81607742, 65925311, 6689146313, 7485334 #### [facility] (DEFAULT) [address] [place] [address] Albumin [Mass/Vol] 3.8 g/dL Normal 3.5-5.0 [facility] Comment on above: Performed By: #### 7 803689, 58401463, 57436044, 0742134560, 5536946 #### [facility] (DEFAULT) [address] [place] [address] Albumin/Globulin [Mass ratio] 1.1 {ratio} Low 1.4-2.6 [facility] Comment on above: Performed By: #### 7 065288, 27026761, 52912110, 5562925211, 7466675 #### [facility] (DEFAULT) [address] [place] [address] Alk Phos 47 IU/L Normal 32-91 [facility] Comment on above: Performed By: #### 7 886345, 73659684, 21883758, 9588448034, 9869402 #### [facility] (DEFAULT) [address] [place] [address] ALT [Catalytic activity/Vol] 21.0 U/L Normal 14.0-54.0 [facility] Comment on above: Performed By: #### 7 244893, 28410252, 71782854, 6602627020, 7806022 #### [facility] (DEFAULT) [address] [place] [address] Anion gap [Moles/Vol] 13.7 mmol/L Normal 5.0-19.0 [facility] Comment on above: Performed By: #### 7 217528, 14018293, 67706753, 7729725373, 6257527 #### [facility] (DEFAULT) [address] [place] [address]507 AST [Catalytic activity/Vol] 22 U/L Normal 15-41 [facility] Comment on above: Performed By: #### 7 163740, 75712637, 54895291, 5222132395, 4333291 #### [facility] (DEFAULT) [address] [place] [address]66 Bili Total 0.4 mg/dL Normal 0.3-1.2 [facility] Comment on above: Performed By: #### 7 227013, 72352924, 22953581, 7253997845, 0188678 #### [facility] (DEFAULT) [address] [place] [address] Calcium [Mass/Vol] 8.9 mg/dL Normal 8.9-10.3 [facility] Comment on above: Performed By: #### 7 017019, 63598307, 20306491, 5302647870, 0877681 #### [facility] (DEFAULT) [address] [place] [address]690 Chloride [Moles/Vol] 102 mmol/L Normal 101-111 [facility] Comment on above: Performed By: #### 7 846592, 98986355, 46947749, 9503113470, 6084617 #### [facility] (DEFAULT) [address] [place] [address]29 CO2 [Moles/Vol] 24 mmol/L Normal 21-32 [facility] Comment on above: Performed By: #### 7 132091, 99970228, 10928692, 8844209332, 4485689 #### [facility] (DEFAULT) [address] [place] [address]39 Creatinine [Mass/Vol] 0.64 mg/dL Normal 0.60-1.30 [facility] Comment on above: Performed By: #### 7 563653, 11650328, 68394236, 0833012353, 1536314 #### [facility] (DEFAULT) [address] [place] [address]737 Globulin (S) [Mass/Vol] 3.3 g/dL Normal 1.5-4.3 [facility] Comment on above: Performed By: #### 7 345631, 99907797, 64444263, 1580033280, 9839065 #### [facility] (DEFAULT) [address] [place] [address]337 Glucose [Mass/Vol] 97.0 mg/dL Normal 74.0-118.0 [facility] Comment on above: Performed By: #### 7 705487, 38142264, 73526342, 4697686138, 5109341 #### [facility] (DEFAULT) [address] [place] [address]8531 Osmolality 272 mOsm/L Invalid Interpretation Code [facility] Comment on above: Performed By: #### 7 526835, 19822439, 71008476, 4355358877, 0488822 #### [facility] (DEFAULT) [address] [place] [address]2482 Potassium [Moles/Vol] 3.7 mmol/L Normal 3.6-5.1 [facility] Comment on above: Performed By: #### 7 458286, 34794860, 84711761, 4146871236, 7744669 #### [facility] (DEFAULT) [address] [place] [address] 13235 Protein [Mass/Vol] 7.1 g/dL Normal 6.5-8.1 [facility] Comment on above: Performed By: #### 7 682406, 80386282, 43464387, 1662123993, 2791465 #### [facility] (DEFAULT) [address] [place] [address] Sodium [Moles/Vol] 136.0 mmol/L Normal 136.0-144.0 [facility] Comment on above: Performed By: #### 7 472346, 39695668, 25829020, 5442079762, 0159438 #### [facility] (DEFAULT) [address] [place] [address] Urea nitrogen [Mass/Vol] 12 mg/dL Normal 8-26 [facility] Comment on above: Performed By: #### 7 372091, 22828517, 71256457, 1455890544, 1543946 #### [facility] (DEFAULT) [address] [place] [address] Urea nitrogen/Creatinin e [Mass ratio] 18.7 mg/mg High 4.6-16.2 [facility] Comment on above: Performed By: #### 7 592352, 08042618, 52432425, 2618887247, 4727727 #### [facility] (DEFAULT) [address] [place] [address] 62468 T4, Totalon 08-02-2024 T4 [Mass/Vol] 8.36 ug/dL Normal 6.09-12.23 [facility] Comment on above: Performed By: #### 7 070136, 57520006, 28223177, 2262020182, 4483951 #### [facility] (DEFAULT) [address] [place] [address] 54271 TSHon 08-02-2024 TSH Qn 4.05 m[IU]/L Normal 0.45-5.33 [facility] Comment on above: Performed By: #### 7 765279, 07133915, 60003026, 9043598023, 2386080 #### [facility] (DEFAULT) [address] [place] [address] 94424 Outside Recordson 06-06-2024 Outside Records [id number][id number] - Other [facility] Report on 06-06-2024 Rad - Other Radiology Report [id number]#[id number] IGP,APTIMA HPV,AGE GDLNon AGE GDLN ACOG TESTING Note . [facility] Comment on above: TESTS RESULT FLAG U NITS REF RANGE LAB Clinician Provided Cytology Information Source.............Cervix;Endocervix No. of containers..01 ThinPrep Vial Age Algo ACOG Arsenio... FLAG LEGEND: L-Low Normal,H-High Normal,LL-Alert Low,HH-Alert High <-Panic Low,>-Panic High,A-Abnormal,AA-Critical Abnormal Performed at: 01 =G Tj [address] [address] Megha Almaguer MD, IGP, RFX APTIMA HPV ASCU Note . [facility] Comment on above: TESTS RESULT FLAG UN ITS REF RANGE LAB DIAGNOSIS: 02 NEGATIVE FOR INTRAEPITHELIAL LESION OR MALIGNANCY. Specimen adequacy: 02 Satisfactory for evaluation. No endocervical component is identified. Performed by: 02 Ana Werner, Prosthodontist/Educator ([facility]) . 02 Note: Note 02 The Pap smear is a screening test designed to aid in the detection of premalignant and malignant conditions of the uterine cervix. It is not a diagnostic procedure and should not be used as the sole means of detecting cervical cancer. Both false-positive and false-negative reports do occur. Test Methodology: Note 02 The Our Security Team(R) Escape Wheel Tooth Cutter was unable to read this specimen. Therefore a manual review was performed. FLAG LEGEND: L-Low Normal,H-High Normal,LL-Alert Low,HH-Alert High <-Panic Low,>-Panic High,A-Abnormal,AA-Critical Abnormal Performed at: [address] [address] Megha Almaguer MD, . 02 The HPV DNA reflex criteria were not met with this specimen result therefore, no HPV testing was performed. The HPV DNA reflex criteria were not met with this specimen result therefore, no HPV testing was performed. Performed at: = - [address] [id number] Laundry Marker Supervisor: Megha Almaguer MD, Phone: [phone] Performed at: [address] [id number] Laundry Marker Supervisor: Megha Almaguer MD, Phone: [phone] [facility] Progress Note - Nurseon 07-2 Progress Note - Nurse Patient presents in [...] on: 02/09/2024 08:48 EDT] Sindy Cormier Normal [facility] CBC AND AUTO DIFFon 10-20-19 24 ABSOLUTE BASOPHIL 0.1 X10E9/L Normal 0.0-0.2 [facility] Comment on above: Performed By: #### U PCR DSU #### [facility] ([id number]) [address] [place] [address], [address] [place] [address] ABSOLUTE NEUTROPHIL 8.0 X10E9/L High 1.5-6.6 [facility] Comment on above: Performed By: #### U PCR DSU #### [facility] ([id number]) [address] [place] [address], [address] [place] [address] Basophils/100 WBC (Bld) 0.9 % Normal [facility] Comment on above: Performed By: #### U PCR DSU #### [facility] ([id number]) [address] [place] [address], [address] [place] [address] Eosinophils (Bld) [#/Vol] 0.2 10*3/uL Normal 0.0-0.4 [facility] Comment on above: Performed By: #### U PCR DSU #### [facility] ([id number]) [address] [address] [place] [address] Eosinophils/100 WBC (Bld) 1.5 % Normal [facility] Comment on above: Performed By: #### U PCR, DSU #### [facility] ([id number]) [address] [facility] [address] [place] [address] Erythrocyte distribution width (RBC) [Ratio] 13.6 % Normal 11.5-15.0 [facility] Comment on above: Performed By: #### U PCR, DSU #### [facility] ([id number]) [address] [address] [place] [address] Hematocrit (Bld) [Volume fraction] 36.2 % Normal 35-47 [facility] Comment on above: Performed By: #### U PCR, DSU #### [facility] ([id number]) [address] [address] [place] [address] Hemoglobin (Bld) [Mass/Vol] 12.1 g/dL Normal 11.7-15.5 [facility] Comment on above: Performed By: #### U PCR, DSU #### [facility] ([id number]) [address] [address] [place] [address] Lymphocytes (Bld) [#/Vol] 3.0 10*3/uL Normal 1.0-3.5 [facility] Comment on above: Performed By: #### U PCR, DSU #### [facility] ([id number]) [address], [address] [place] [address] Lymphocytes/100 WBC (Bld) 25.3 % Normal [facility] Comment on above: Performed By: #### U PCR, DSU #### [facility] ([id number]) [address], [address] [place] [address] MCH (RBC) [Entitic mass] 30.2 pg Normal 27-34 [facility] Comment on above: Performed By: #### U PCR, DSU #### [facility] ([id number]) [address], [address] [place] [address] MCHC (RBC) [Mass/Vol] 33.4 g/dL Normal 32-36 [facility] Comment on above: Performed By: #### U PCR, DSU #### [facility] ([id number]) [address], [address] [place] [address] MCV (RBC) [Entitic vol] 91 fL Normal 80-100 [facility] Comment on above: Performed By: #### U PCR, DSU #### [facility] ([id number]) [address], [facility] [address] [place] [address] Monocytes (Bld) [#/Vol] 0.6 10*3/uL Normal 0-0.9 [facility] Comment on above: Performed By: #### U PCR, DSU #### [facility] ([id number]) [address], [address] [place] [address] Monocytes/100 WBC (Bld) 5.1 % Normal [facility] Comment on above: Performed By: #### U PCR, DSU #### [facility] ([id number]) [address], [address] [place] [address] Neutrophils/100 WBC (Bld) 67.2 % Normal [facility] Comment on above: Performed By: #### U PCR, DSU #### [facility] ([id number]) [address], [address] [place] [address] Platelet mean volume (Bld) [Entitic vol] 7.2 fL Normal 7-12 [facility] Comment on above: Performed By: #### U PCR, DSU #### [facility] ([id number]) [address], [address] [place] [address] Platelets (Bld) [#/Vol] 423 10*3/uL Normal 150-450 [facility] Comment on above: Performed By: #### U PCR, DSU #### [facility] ([id number]) [address], [address] [place] [address] RBC COUNT 4.00 X10E12/L Normal 3.80-5.20 [facility] Comment on above: Performed By: #### U PCR, DSU #### [facility] ([id number]) [address], [address] [place] [address] WBC (Bld) [#/Vol] 12.0 10*3/uL High 4.0-11.0 [facility] Comment on above: Performed By: #### U PCR, DSU #### [facility] ([id number]) [address], [address] [place] [address] COMPREHENSIVE METABOLIC PANE Yasmani 10-20-2023 Albumin [Mass/Vol] 3.7 g/dL Normal 3.2-5.3 [facility] Comment on above: Performed By: #### U PCR, DSU #### [facility] ([id number]) [address], [address] [place] [address] ALP [Catalytic activity/Vol] 61 U/L Normal 39-130 [facility] Comment on above: Performed By: #### U PCR, DSU #### [facility] ([id number]) [address], [address] [place] [address] ALT [Catalytic activity/Vol] 17 U/L Normal 0-31 [facility] Comment on above: Performed By: #### U PCR, DSU #### [facility] ([id number]) [address], [address] [place] [address] Anion gap [Moles/Vol] 10 mmol/L Normal 5-15 [facility] Comment on above: Performed By: #### U PCR, DSU #### [facility] ([id number]) [address], [address] [place] [address] AST [Catalytic activity/Vol] 17 U/L Normal 0-41 [facility] Comment on above: Performed By: #### U PCR, DSU #### [facility] ([id number]) [address], [address] [place] [address] Bilirubin [Mass/Vol] 0.3 mg/dL Normal 0.3-1.2 [facility] Comment on above: Performed By: #### U PCR, DSU #### [facility] ([id number]) [address], [address] [place] [address] Calcium [Mass/Vol] 9.1 mg/dL Normal 8.5-10.5 [facility] Comment on above: Performed By: #### U PCR, DSU #### [facility] ([id number]) [address], [address] [place] [address] Chloride [Moles/Vol] 111 mmol/L High 98-109 [facility] Comment on above: Performed By: #### U PCR, DSU #### [facility] ([id number]) [address], [address] [place] [address] CO2 [Moles/Vol] 23 mmol/L Normal 22-32 [facility] Comment on above: Performed By: #### U PCR, DSU #### [facility] ([id number]) [address], [address] [place] [address] Creatinine [Mass/Vol] 0.80 mg/dL Normal 0.40-1.00 [facility] Comment on above: Result Comment: METH OD TRACEABLE TO IDMS STANDARD Performed By: #### U PCR, DSU #### [facility] ([id number]) [address], [address] [place] [address] eGFR (CKD-EPI) NON-RACE DEPENDENT >90 Normal >59 [facility] Comment on above: Result Comment: Reported eGFR is based on the CKD-EPI 2020 equation that does not use a race coefficient. Performed By: #### U PCR, DSU #### [facility] ([id number]) [address], [address] [place] [address] Glucose [Mass/Vol] 95 mg/dL Normal 65-99 [facility] Comment on above: Performed By: #### U PCR, DSU #### [facility] ([id number]) [address], [address] [place] [address] Potassium [Moles/Vol] 3.7 mmol/L Normal 3.5-5.0 [facility] Comment on above: Performed By: #### U PCR, DSU #### [facility] ([id number]) [address], [address] [place] [address] Protein [Mass/Vol] 6.7 g/dL Normal 6.0-8.0 [facility] Comment on above: Performed By: #### U PCR, DSU #### [facility] ([id number]) [address], [address] [place] [address] Sodium [Moles/Vol] 144 mmol/L Normal 134-146 [facility] Comment on above: Performed By: #### U PCR, DSU #### [facility] ([id number]) [address], [address] [place] [address] Urea nitrogen [Mass/Vol] 18 mg/dL Normal 5-23 [facility] Comment on above: Performed By: #### U PCR, DSU #### [facility] ([id number]) [address], [address] [place] [address] LDH [Catalytic activity/Vol] on 10-20-2023 LDH 152 U/L Normal 100-235 [facility] Comment on above: Performed By: #### U PCR, DSU #### [facility] ([id number]) [address], [address] [place] [address] URIC ACIDon 10-20-2023 Urate [Mass/Vol] 7.3 mg/dL High 2.6-7.2 [facility] Comment on above: Performed By: #### U PCR, DSU #### [facility] ([id number]) [address], [address] [place] [address] CBC AND AUTO DIFFon 10-11-19 ABSOLUTE BASOPHIL 0.0 X10E9/L Normal 0.0-0.2 [facility] Comment on above: Performed By: #### U PCR, DSU #### [facility] ([id number]) [address], [facility] [address] [place] [address] ABSOLUTE NEUTROPHIL 14.0 X10E9/L High 1.5-6.6 [facility] Comment on above: Performed By: #### U PCR, DSU #### [facility] ([id number]) [address], [address] [place] [address] Basophils/100 WBC (Bld) 0.2 % Normal [facility] Comment on above: Performed By: #### U PCR, DSU #### [facility] ([id number]) [address], [address] [place] [address] Eosinophils (Bld) [#/Vol] 0.1 10*3/uL Normal 0.0-0.4 [facility] Comment on above: Performed By: #### U PCR, DSU #### [facility] ([id number]) [address], [address] [place] [address] Eosinophils/100 WBC (Bld) 0.2 % Normal [facility] Comment on above: Performed By: #### U PCR, DSU #### [facility] ([id number]) [address], [address] [place] [address] Erythrocyte distribution width (RBC) [Ratio] 13.1 % Normal 11.5-15.0 [facility] Comment on above: Performed By: #### U PCR, DSU #### [facility] ([id number]) [address], [address] [place] [address] Hematocrit (Bld) [Volume fraction] 34.3 % Low 35-47 [facility] Comment on above: Performed By: #### U PCR, DSU #### [facility] ([id number]) [address], [address] [place] [address] Hemoglobin (Bld) [Mass/Vol] 11.7 g/dL Normal 11.7-15.5 [facility] Comment on above: Performed By: #### U PCR, DSU #### [facility] ([id number]) [address], [address] [place] [address] Lymphocytes (Bld) [#/Vol] 4.6 10*3/uL High 1.0-3.5 [facility] Comment on above: Performed By: #### U PCR, DSU #### [facility] ([id number]) [address], [address] [place] [address] Lymphocytes/100 WBC (Bld) 22.5 % Normal [facility] Comment on above: Performed By: #### U PCR, DSU #### [facility] ([id number]) [address], [address] [place] [address] MCH (RBC) [Entitic mass] 30.3 pg Normal 27-34 [facility] Comment on above: Performed By: #### U PCR, DSU #### [facility] ([id number]) [address], [address] [place] [address] MCHC (RBC) [Mass/Vol] 34.1 g/dL Normal 32-36 [facility] Comment on above: Performed By: #### U PCR, DSU #### [facility] ([id number]) [address], [address] [place] [address] MCV (RBC) [Entitic vol] 89 fL Normal 80-100 [facility] Comment on above: Performed By: #### U PCR, DSU #### [facility] ([id number]) [address], [address] [place] [address] Monocytes (Bld) [#/Vol] 1.8 10*3/uL High 0-0.9 [facility] Comment on above: Performed By: #### U PCR, DSU #### [facility] ([id number]) [address], [address] [place] [address] Monocytes/100 WBC (Bld) 9.0 % Normal [facility] Comment on above: Performed By: #### U PCR, DSU #### [facility] ([id number]) [address], [address] [place] [address] Neutrophils/100 WBC (Bld) 68.1 % Normal [facility] Comment on above: Performed By: #### U PCR, DSU #### [facility] ([id number]) [address], [address] [place] [address] Platelet mean volume (Bld) [Entitic vol] 7.9 fL Normal 7-12 [facility] Comment on above: Performed By: #### U PCR, DSU #### [facility] ([id number]) [address], [address] [place] [address] Platelets (Bld) [#/Vol] 352 10*3/uL Normal 150-450 [facility] Comment on above: Performed By: #### U PCR, DSU #### [facility] ([id number]) [address], [address] [place] [address] RBC COUNT 3.85 X10E12/L Normal 3.80-5.20 [facility] Comment on above: Performed By: #### U PCR, DSU #### [facility] ([id number]) [address], [address] [place] [address] WBC (Bld) [#/Vol] 20.5 10*3/uL High 4.0-11.0 [facility] Comment on above: Performed By: #### U PCR, DSU #### [facility] ([id number]) [address], [address] [place] [address] COMPREHENSIVE METABOLIC PANE Yasmani 10-11-2023 Albumin [Mass/Vol] 3.2 g/dL Normal 3.2-5.3 [facility] Comment on above: Performed By: #### U PCR, DSU #### [facility] ([id number]) [address], [address] [place] [address] ALP [Catalytic activity/Vol] 58 U/L Normal 39-130 [facility] Comment on above: Performed By: #### U PCR, DSU #### [facility] ([id number]) [address], [address] [place] [address] ALT [Catalytic activity/Vol] 13 U/L Normal 0-31 [facility] Comment on above: Performed By: #### U PCR, DSU #### [facility] ([id number]) [address], [address] [place] [address] Anion gap [Moles/Vol] 10 mmol/L Normal 5-15 [facility] Comment on above: Performed By: #### U PCR, DSU #### [facility] ([id number]) [address], [address] [place] [address] AST [Catalytic activity/Vol] 19 U/L Normal 0-41 [facility] Comment on above: Performed By: #### U PCR, DSU #### [facility] ([id number]) [address] [address] [place] [address] Bilirubin [Mass/Vol] 0.2 mg/dL Low 0.3-1.2 [facility] Comment on above: Performed By: #### U PCR, DSU #### [facility] ([id number]) [address], [facility] [address] [place] [address] Calcium [Mass/Vol] 8.1 mg/dL Low 8.5-10.5 [facility] Comment on above: Performed By: #### U PCR, DSU #### [facility] ([id number]) [address], [address] [address] Chloride [Moles/Vol] 103 mmol/L Normal 98-109 [facility] Comment on above: Performed By: #### U PCR, DSU #### [facility] ([id number]) [address], [address] [address] CO2 [Moles/Vol] 27 mmol/L Normal 22-32 [facility] Comment on above: Performed By: #### U PCR, DSU #### [facility] ([id number]) [address], [address] [address] Creatinine [Mass/Vol] 0.73 mg/dL Normal 0.40-1.00 [facility] Comment on above: Result Comment: METH OD TRACEABLE TO IDMS STANDARD Performed By: #### U PCR, DSU #### [facility] ([id number]) [address] [place] [address] eGFR (CKD-EPI) NON-RACE DEPENDENT >90 Normal >59 [facility] Comment on above: Result Comment: Reported eGFR is based on the CKD-EPI 2020 equation that does not use a race coefficient. Performed By: #### U PCR, DSU #### [facility] ([id number]) [address], [address] [place] [address] Glucose [Mass/Vol] 79 mg/dL Normal 65-99 [facility] Comment on above: Performed By: #### U PCR, DSU #### [facility] ([id number]) [address], [address] [place] [address] Potassium [Moles/Vol] 4.1 mmol/L Normal 3.5-5.0 [facility] Comment on above: Performed By: #### U PCR, DSU #### [facility] ([id number]) [address], [address] [place] [address] Protein [Mass/Vol] 5.9 g/dL Low 6.0-8.0 [facility] Comment on above: Performed By: #### U PCR, DSU #### [facility] ([id number]) [address], [address] [place] [address] Sodium [Moles/Vol] 140 mmol/L Normal 134-146 [facility] Comment on above: Performed By: #### U PCR, DSU #### [facility] ([id number]) [address], [address] [place] [address] Urea nitrogen [Mass/Vol] 21 mg/dL Normal 5-23 [facility] Comment on above: Performed By: #### U PCR, DSU #### [facility] ([id number]) [address], [address] [place] [address] CAPILLARY BLOOD GASon 2023 HERIBERTO'S TEST Normal [facility] Comment on above: Performed By: #### U PCR, DSU #### [facility] ([id number]) [address], [address] [place] [address] BASE,DEFICIT 4.0 MMOL/L High 0.0-2.0 [facility] Comment on above: Performed By: #### U PCR, DSU #### [facility] ([id number]) [address] [place] [address] Body temperature 98.6 [degF] Normal 37.0 [facility] Comment on above: Performed By: #### U PCR, DSU #### [facility] ([id number]) [address], [address] [place] [address] HCO3 (Bld) [Moles/Vol] 22.3 mmol/L Normal 20.0-24.0 [facility] Comment on above: Performed By: #### U PCR, DSU #### [facility] ([id number]) [address], [address] [place] [address] INSP. O2 CONC. 35 % Normal [facility] Comment on above: Performed By: #### U PCR, DSU #### [facility] ([id number]) [address], [address] [place] [address] Oxygen saturation in Blood 37.0 % Low >80.0 [facility] Comment on above: Performed By: #### U PCR, DSU #### [facility] ([id number]) [address], [address] [place] [address] OXYGEN SOURCE Vent Normal [facility] Comment on above: Performed By: #### U PCR, DSU #### [facility] ([id number]) [address], [address] [place] [address] PCO2, CAPILLARY 42.3 MMHG Normal 35-45 [facility] Comment on above: Performed By: #### U PCR, DSU #### [facility] ([id number]) [address], [address] [place] [address] PH, CAPILLARY 7.330 Normal 7.330-7.490 [facility] Comment on above: Performed By: #### U PCR, DSU #### [facility] ([id number]) [address], [address] [place] [address] PO2, CAPILLARY 23 MMHG Low 35-45 [facility] Comment on above: Performed By: #### U PCR, DSU #### [facility] ([id number]) [address], [address] [place] [address] SAMPLE SITE RHeel Normal [facility] Comment on above: Performed By: #### U PCR, DSU #### [facility] ([id number]) [address], [address] [place] [address] SAMPLE TYPE CAPILLARY Normal [facility] Comment on above: Performed By: #### U PCR, DSU #### [facility] ([id number]) [address], [address] [place] [address] CBC AND AUTO DIFFon 10-10-19 24 Band form neutrophils/100 WBC (Bld) 1.0 % Normal [facility] Comment on above: Performed By: #### U PCR, DSU #### [facility] ([id number]) [address], [address] [place] [address] Erythrocyte distribution width (RBC) [Ratio] 13.4 % Normal 11.5-15.0 [facility] Comment on above: Performed By: #### U PCR, DSU #### [facility] ([id number]) [address], [address] [place] [address] Hematocrit (Bld) [Volume fraction] 35.2 % Normal 35-47 [facility] Comment on above: Performed By: #### U PCR, DSU #### [facility] ([id number]) [address], [address] [place] [address] Hemoglobin (Bld) [Mass/Vol] 12.2 g/dL Normal 11.7-15.5 [facility] Comment on above: Performed By: #### U PCR, DSU #### [facility] ([id number]) [address], [address] [place] [address] Lymphocytes (Bld) [#/Vol] 4.0 10*3/uL High 1.0-3.5 [facility] Comment on above: Performed By: #### U PCR, DSU #### [facility] ([id number]) [address], [address] [place] [address] Lymphocytes/100 WBC (Bld) 16.0 % Normal [facility] Comment on above: Performed By: #### U PCR, DSU #### [facility] ([id number]) [address], [address] [place] [address] MCH (RBC) [Entitic mass] 30.7 pg Normal 27-34 [facility] Comment on above: Performed By: #### U PCR, DSU #### [facility] ([id number]) [address], [address] [place] [address] MCHC (RBC) [Mass/Vol] 34.6 g/dL Normal 32-36 [facility] Comment on above: Performed By: #### U PCR, DSU #### [facility] ([id number]) [address], [address] [place] [address] MCV (RBC) [Entitic vol] 89 fL Normal 80-100 [facility] Comment on above: Performed By: #### U PCR, DSU #### [facility] ([id number]) [address], [address] [place] [address] Monocytes (Bld) [#/Vol] 1.3 10*3/uL High 0-0.9 [facility] Comment on above: Performed By: #### U PCR, DSU #### [facility] ([id number]) [address], [address] [place] [address] Monocytes/100 WBC (Bld) 5.0 % Normal [facility] Comment on above: Performed By: #### U PCR, DSU #### [facility] ([id number]) [address], [address] [place] [address] Neutrophils (Bld) [#/Vol] 19.9 10*3/uL High 1.5-6.6 [facility] Comment on above: Performed By: #### U PCR, DSU #### [facility] ([id number]) [address], [address] [place] [address] Platelet mean volume (Bld) [Entitic vol] 8.0 fL Normal 7-12 [facility] Comment on above: Performed By: #### U PCR, DSU #### [facility] ([id number]) [address], [address] [place] [address] Platelets (Bld) [#/Vol] 375 10*3/uL Normal 150-450 [facility] Comment on above: Performed By: #### U PCR, DSU #### [facility] ([id number]) [address], [address] [place] [address] RBC COUNT 3.97 X10E12/L Normal 3.80-5.20 [facility] Comment on above: Performed By: #### U PCR, DSU #### [facility] ([id number]) [address], [address] [place] [address] RBC morphology finding Nom (Bld) NORMAL Normal [facility] Comment on above: Performed By: #### U PCR, DSU #### [facility] ([id number]) [address], [address] [place] [address] SEG NEUTROPHIL 78.0 % Normal [facility] Comment on above: Performed By: #### U PCR, DSU #### [facility] ([id number]) [address], [address] [place] [address] WBC (Bld) [#/Vol] 25.2 10*3/uL High 4.0-11.0 [facility] Comment on above: Performed By: #### U PCR, DSU #### [facility] ([id number]) [address], [address] [place] [address] COMPREHENSIVE METABOLIC PANE Yasmani 10-10-2023 Albumin [Mass/Vol] 3.3 g/dL Normal 3.2-5.3 [facility] Comment on above: Performed By: #### U PCR, DSU #### [facility] ([id number]) [address], [address] [place] [address] ALP [Catalytic activity/Vol] 74 U/L Normal 39-130 [facility] Comment on above: Performed By: #### U PCR, DSU #### [facility] ([id number]) [address], [address] [place] [address] ALT [Catalytic activity/Vol] 16 U/L Normal 0-31 [facility] Comment on above: Performed By: #### U PCR, DSU #### [facility] ([id number]) [address], [address] [place] [address] Anion gap [Moles/Vol] 12 mmol/L Normal 5-15 [facility] Comment on above: Performed By: #### U PCR, DSU #### [facility] ([id number]) [address], [address] [place] [address] AST [Catalytic activity/Vol] 20 U/L Normal 0-41 [facility] Comment on above: Performed By: #### U PCR, DSU #### [facility] ([id number]) [address], [address] [place] [address] Bilirubin [Mass/Vol] 0.2 mg/dL Low 0.3-1.2 [facility] Comment on above: Performed By: #### U PCR, DSU #### [facility] ([id number]) [address], [address] [place] [address] Calcium [Mass/Vol] 7.6 mg/dL Low 8.5-10.5 [facility] Comment on above: Performed By: #### U PCR, DSU #### [facility] ([id number]) [address], [address] [place] [address] Chloride [Moles/Vol] 100 mmol/L Normal 98-109 [facility] Comment on above: Performed By: #### U PCR, DSU #### [facility] ([id number]) [address], [address] [place] [address] CO2 [Moles/Vol] 24 mmol/L Normal 22-32 [facility] Comment on above: Performed By: #### U PCR, DSU #### [facility] ([id number]) [address] [address] [place] [address] Creatinine [Mass/Vol] 0.71 mg/dL Normal 0.40-1.00 [facility] Comment on above: Result Comment: METH OD TRACEABLE TO IDMS STANDARD Performed By: #### U PCR, DSU #### [facility] ([id number]) [address] [address] [place] [address] eGFR (CKD-EPI) NON-RACE DEPENDENT >90 Normal >59 [facility] Comment on above: Result Comment: Reported eGFR is based on the CKD-EPI 2020 equation that does not use a race coefficient. Performed By: #### U PCR, DSU #### [facility] ([id number]) [address], [address] [place] [address] Glucose [Mass/Vol] 101 mg/dL High 65-99 [facility] Comment on above: Performed By: #### U PCR, DSU #### [facility] ([id number]) [address], [address] [place] [address] Potassium [Moles/Vol] 3.9 mmol/L Normal 3.5-5.0 [facility] Comment on above: Performed By: #### U PCR, DSU #### [facility] ([id number]) [address], [address] [place] [address] Protein [Mass/Vol] 6.3 g/dL Normal 6.0-8.0 [facility] Comment on above: Performed By: #### U PCR, DSU #### [facility] ([id number]) [address], [address] [place] [address] Sodium [Moles/Vol] 136 mmol/L Normal 134-146 [facility] Comment on above: Performed By: #### U PCR, DSU #### [facility] ([id number]) [address], [address] [place] [address] Urea nitrogen [Mass/Vol] 13 mg/dL Normal 5-23 [facility] Comment on above: Performed By: #### U PCR, DSU #### [facility] ([id number]) [address], [address] [place] [address] Albumin [Mass/Vol] 3.3 g/dL Normal 3.2-5.3 [facility] Comment on above: Performed By: #### U PCR, DSU #### [facility] ([id number]) [address], [address] [place] [address] ALP [Catalytic activity/Vol] 74 U/L Normal 39-130 [facility] Comment on above: Performed By: #### U PCR, DSU #### [facility] ([id number]) [address], [address] [place] [address] ALT [Catalytic activity/Vol] 19 U/L Normal 0-31 [facility] Comment on above: Performed By: #### U PCR, DSU #### [facility] ([id number]) [address], [address] [place] [address] Anion gap [Moles/Vol] 13 mmol/L Normal 5-15 [facility] Comment on above: Performed By: #### U PCR, DSU #### [facility] ([id number]) [address], [address] [place] [address] AST [Catalytic activity/Vol] 24 U/L Normal 0-41 [facility] Comment on above: Performed By: #### U PCR, DSU #### [facility] ([id number]) [address], [address] [place] [address] Bilirubin [Mass/Vol] 0.3 mg/dL Normal 0.3-1.2 [facility] Comment on above: Performed By: #### U PCR, DSU #### [facility] ([id number]) [address], [address] [place] [address] Calcium [Mass/Vol] 8.1 mg/dL Low 8.5-10.5 [facility] Comment on above: Performed By: #### U PCR, DSU #### [facility] ([id number]) [address], [address] [place] [address] Chloride [Moles/Vol] 102 mmol/L Normal 98-109 [facility] Comment on above: Performed By: #### U PCR, DSU #### [facility] ([id number]) [address], [address] [place] [address] CO2 [Moles/Vol] 22 mmol/L Normal 22-32 [facility] Comment on above: Performed By: #### U PCR, DSU #### [facility] ([id number]) [address], [address] [place] [address] Creatinine [Mass/Vol] 0.78 mg/dL Normal 0.40-1.00 [facility] Comment on above: Result Comment: METH OD TRACEABLE TO IDMS STANDARD Performed By: #### U PCR DSU #### [facility] ([id number]) [address], [address] [place] [address] eGFR (CKD-EPI) NON-RACE DEPENDENT >90 Normal >59 [facility] Comment on above: Result Comment: Reported eGFR is based on the CKD-EPI 2020 equation that does not use a race coefficient. Performed By: #### U PCR DSU #### [facility] ([id number]) [address], [address] [place] [address] Glucose [Mass/Vol] 118 mg/dL High 65-99 [facility] Comment on above: Performed By: #### U PCR DSU #### [facility] ([id number]) [address], [address] [place] [address] Potassium [Moles/Vol] 4.2 mmol/L Normal 3.5-5.0 [facility] Comment on above: Performed By: #### U PCR DSU #### [facility] ([id number]) [address], [address] [place] [address] Protein [Mass/Vol] 6.2 g/dL Normal 6.0-8.0 [facility] Comment on above: Performed By: #### U PCR, DSU #### [facility] ([id number]) [address], [address] [place] [address] Sodium [Moles/Vol] 137 mmol/L Normal 134-146 [facility] Comment on above: Performed By: #### U PCR, DSU #### [facility] ([id number]) [address], [address] [place] [address] Urea nitrogen [Mass/Vol] 16 mg/dL Normal 5-23 [facility] Comment on above: Performed By: #### U PCR, DSU #### [facility] ([id number]) [address], [address] [place] [address] CORD ARTERIAL GASon 10-10-19 24 HERIBERTO'S TEST Normal [facility] Comment on above: Performed By: #### A CA, 5124-3, 44790-6, 45955-3, 62434-9 #### [facility] ([id number]) [address], [facility] [address] [place] [address] BASE,DEFICIT 5.0 MMOL/L High 0.0-2.0 [facility] Comment on above: Performed By: #### A CA, 5124-3, 68174-2, 50581-1, 11122-6 #### [facility] ([id number]) [address], [facility] [address] [place] [address] HCO3 (Bld) [Moles/Vol] 20.2 mmol/L Low 22-26 [facility] Comment on above: Performed By: #### A CA, 5124-3, 82495-4, 88155-3, 28134-1 #### [facility] ([id number]) [address], [address] [place] [address] Oxygen (Bld) [Partial pressure] 21 mm[Hg] Normal 12-24 [facility] Comment on above: Performed By: #### A CA, 5124-3, 31219-0, 95594-9, 48917-1 #### [facility] ([id number]) [address], [facility] [address] [place] [address] Oxygen saturation in Blood 30.0 % Normal 7.1-39.5 [facility] Comment on above: Performed By: #### A CA, 5124-3, 27762-1, 27132-8, 43536-5 #### [facility] ([id number]) [address], [address] [place] [address] OXYGEN SOURCE [employer] Normal [facility] Comment on above: Performed By: #### A CA, 5124-3, 05236-3, 21953-9, 64154-1 #### [facility] ([id number]) [address], [address] [place] [address] PCO2 39.1 MMHG Low 40.8-57.6 [facility] Comment on above: Performed By: #### A CA, 5124-3, 98316-2, 59759-3, 86930-5 #### [facility] ([id number]) [address], [facility] [address] [place] [address] pH (Bld) 7.321 [pH] High 7.24-7.30 [facility] Comment on above: Performed By: #### A CA, 5124-3, 12215-1, 45487-7, 27959-2 #### [facility] ([id number]) [address], [address] [place] [address] SAMPLE SITE [employer] [facility] Comment on above: Performed By: #### A CA, 5124-3, 51820-9, 95193-7, 14368-5 #### [facility] ([id number]) [address], [address] [address] SAMPLE TYPE [employer]MB[employer]ICALC[employer] [facility] Comment on above: Performed By: #### A CA, 5124-3, 39418-9, 55689-3, 32333-6 #### [facility] ([id number]) [address], [address] [place] [address] CORD VENOUS GASon 10-10-2023 HERIBERTO'S TEST [facility] Comment on above: Performed By: #### A CA, 5124-3, 91558-2, 07603-9, 58035-3 #### [facility] ([id number]) [address], [address] [place] [address] BASE,DEFICIT 4.0 MMOL/L High 0.0-2.0 [facility] Comment on above: Performed By: #### A PARUL, 5124-3, 65090-1, 24994-4, 70090-7 #### [facility] ([id number]) [address], [facility] [address] [place] [address] HCO3 (Bld) [Moles/Vol] 22.3 mmol/L Normal 20.0-24.0 [facility] Comment on above: Performed By: #### A PARUL, 5124-3, 03484-1, 15486-1, 38551-5 #### [facility] ([id number]) [address], [address] [place] [address] Oxygen (Bld) [Partial pressure] 17 mm[Hg] Low 22-35 [facility] Comment on above: Performed By: #### A PARUL, 5124-3, 79407-3, 03764-1, 64930-6 #### [facility] ([id number]) [address], [facility] [address] [place] [address] Oxygen saturation in Blood 20.0 % Low 32.5-66.3 [facility] Comment on above: Performed By: #### A PARUL, 5124-3, 73341-1, 89600-4, 69612-4 #### [facility] ([id number]) [address], [address] [place] [address] OXYGEN SOURCE [employer] Normal [facility] Comment on above: Performed By: #### A PARUL, 5124-3, 03399-9, 54255-9, 24753-0 #### [facility] ([id number]) [address], [address] [place] [address] PCO2 43.8 MMHG Normal 32.6-43.8 [facility] Comment on above: Performed By: #### A PARUL, 5124-3, 87954-4, 81069-0, 92340-9 #### [facility] ([id number]) [address], [address] [place] [address] pH (Bld) 7.315 [pH] Normal 7.25-7.37 [facility] Comment on above: Performed By: #### A CA, 5124-3, 06288-3, 25697-3, 01042-1 #### [facility] ([id number]) [address], [address] [place] [address] SAMPLE SITE VenCord Normal [facility] Comment on above: Performed By: #### A CA, 5124-3, 11386-3, 41563-6, 83524-1 #### [facility] ([id number]) [address], [address] [place] [address] SAMPLE TYPE UMBILICALCORD Normal [facility] Comment on above: Performed By: #### A CA, 5124-3, 17232-2, 49346-0, 65950-6 #### [facility] ([id number]) [address], [address] [place] [address] Surgical Pathologyon 024 Surgical Pathology Normal [facility] Comment on above: Result Comment: [facility] [address] [place] [address] Surgical Pathology Consultation Patient Name:SISI MORA:1995 (Age: 28)Gender:FTaken:4Reported:4Physician(s):Sue Holland M.D. ([id number])Copy To: Rec. #:[id number]: #[id number] Final Pathologic Diagnosis Bilateral fallopian tubes: Benign fallopian tubes. Report Electronically Signed Out cjb/4/3/2024Cbritany Cifuentes MD Interpretation performed at [facility], [address] [place] [address], License number: [id number]. Clinical History Pre-eclampsia with severe features. Gross [...] (inked tube) is submitted in cassette A, technical support representative cross-sections of fallopian tube (inked) in cassette B, perpendicularly sectioned fimbria (uninked tube) in cassette C, and technical support representative cross-sections of fallopian tube (uninked) in cassette D. (4, ss, [id number], m1) SHIV finney/10/12/2023GR Specimen(s) Received Right and left fallopian tubes Fee Codes(s): 1; 70037 BETA-2 GP1 AB PANELon 2023 BETA-2 GP1 IgA <2.0 Normal 0.0-19.9 [facility] Comment on above: Performed By: #### A CA, 5124-3, 27954-5, 36556-4, 76124-8 #### [facility] ([id number]) [address], [address] [place] [address] BETA-2 GP1 IgG <1.4 Normal 0.0-19.9 [facility] Comment on above: Performed By: #### A CA, 5124-3, 26006-2, 97321-9, 37414-9 #### [facility] ([id number]) [address], [address] [place] [address] BETA-2 GP1 IgM <1.5 Normal 0.0-19.9 [facility] Comment on above: Performed By: #### A CA, 5124-3, 05458-6, 52726-2, 53001-5 #### [facility] ([id number]) [address], [address] [place] [address] CBC AND AUTO DIFFon 10-09-19 24 ABSOLUTE BASOPHIL 0.3 X10E9/L High 0.0-0.2 [facility] Comment on above: Performed By: #### A CA, 5124-3, 76861-6, 95066-9, 54440-4 #### [facility] ([id number]) [address], [facility] [address] [place] [address] ABSOLUTE NEUTROPHIL 15.1 X10E9/L High 1.5-6.6 [facility] Comment on above: Performed By: #### A CA, 5124-3, 82085-3, 73742-3, 35401-9 #### [facility] ([id number]) [address], [address] [place] [address] Basophils/100 WBC (Bld) 1.5 % Normal [facility] Comment on above: Performed By: #### A CA, 5124-3, 76874-3, 00640-3, 81422-1 #### [facility] ([id number]) [address], [facility] [address] [place] [address] Eosinophils (Bld) [#/Vol] 0.0 10*3/uL Normal 0.0-0.4 [facility] Comment on above: Performed By: #### A CA, 5124-3, 08312-9, 41133-2, 30887-9 #### [facility] ([id number]) [address], [address] [place] [address] Eosinophils/100 WBC (Bld) 0.1 % Normal [facility] Comment on above: Performed By: #### A CA, 5124-3, 45395-5, 44934-5, 36731-4 #### [facility] ([id number]) [address] [address] [place] [address] Erythrocyte distribution width (RBC) [Ratio] 12.7 % Normal 11.5-15.0 [facility] Comment on above: Performed By: #### A CA, 5124-3, 24155-4, 09014-3, 28749-1 #### [facility] ([id number]) [address] [address] [place] [address] Hematocrit (Bld) [Volume fraction] 38.4 % Normal 35-47 [facility] Comment on above: Performed By: #### A CA, 5124-3, 92769-9, 31303-9, 01744-9 #### [facility] ([id number]) [address] [address] Hemoglobin (Bld) [Mass/Vol] 12.9 g/dL Normal 11.7-15.5 [facility] Comment on above: Performed By: #### A CA, 5124-3, 80398-8, 77946-7, 72117-5 #### [facility] ([id number]) [address] [address] Lymphocytes (Bld) [#/Vol] 3.7 10*3/uL High 1.0-3.5 [facility] Comment on above: Performed By: #### A CA, 5124-3, 56317-9, 14766-9, 85232-6 #### [facility] ([id number]) [address] [address] [place] [address] Lymphocytes/100 WBC (Bld) 18.7 % Normal [facility] Comment on above: Performed By: #### A CA, 5124-3, 22496-7, 11967-1, 14863-9 #### [facility] ([id number]) [address] [address] [place] [address] MCH (RBC) [Entitic mass] 30.1 pg Normal 27-34 [facility] Comment on above: Performed By: #### A CA, 5124-3, 15823-2, 76734-2, 72765-2 #### [facility] ([id number]) [address], [address] [place] [address] MCHC (RBC) [Mass/Vol] 33.7 g/dL Normal 32-36 [facility] Comment on above: Performed By: #### A CA, 5124-3, 69651-9, 66169-0, 70697-8 #### [facility] ([id number]) [address], [facility] [address] [place] [address] MCV (RBC) [Entitic vol] 89 fL Normal 80-100 [facility] Comment on above: Performed By: #### A PARUL, 5124-3, 36199-9, 04740-3, 48699-0 #### [facility] ([id number]) [address], [facility] [address] [place] [address] Monocytes (Bld) [#/Vol] 0.6 10*3/uL Normal 0-0.9 [facility] Comment on above: Performed By: #### A PARUL, 5124-3, 37981-9, 94410-0, 24830-2 #### [facility] ([id number]) [address], [address] [place] [address] Monocytes/100 WBC (Bld) 3.1 % Normal [facility] Comment on above: Performed By: #### A CA, 5124-3, 15299-4, 95769-6, 74331-8 #### [facility] ([id number]) [address], [address] [place] [address] Neutrophils/100 WBC (Bld) 76.6 % Normal [facility] Comment on above: Performed By: #### A CA, 5124-3, 43861-7, 27243-8, 01471-1 #### [facility] ([id number]) [address], [address] [place] [address] Platelet mean volume (Bld) [Entitic vol] 8.2 fL Normal 7-12 [facility] Comment on above: Performed By: #### A CA, 5124-3, 63007-9, 06029-9, 58963-2 #### [facility] ([id number]) [address], [facility] [address] [place] [address] Platelets (Bld) [#/Vol] 434 10*3/uL Normal 150-450 [facility] Comment on above: Performed By: #### A CA, 5124-3, 76429-1, 27404-8, 20886-5 #### [facility] ([id number]) [address], [facility] [address] [place] [address] RBC COUNT 4.30 X10E12/L Normal 3.80-5.20 [facility] Comment on above: Performed By: #### A CA, 5124-3, 34974-6, 21677-4, 76181-2 #### [facility] ([id number]) [address], [address] [address] WBC (Bld) [#/Vol] 19.7 10*3/uL High 4.0-11.0 [facility] Comment on above: Performed By: #### A CA, 5124-3, 22477-6, 58823-0, 86787-6 #### [facility] ([id number]) [address], [facility] [address] [place] [address] COMPLETE BLOOD COUNTon 10-08 Erythrocyte distribution width (RBC) [Ratio] 13.0 % Normal 11.5-15.0 [facility] Comment on above: Performed By: #### A CA, 5124-3, 20334-4, 81056-2, 39188-6 #### [facility] ([id number]) [address] [address] [place] [address] Hematocrit (Bld) [Volume fraction] 38.0 % Normal 35-47 [facility] Comment on above: Performed By: #### A CA, 5124-3, 10269-9, 02145-6, 95242-7 #### [facility] ([id number]) [address], [address] [address] Hemoglobin (Bld) [Mass/Vol] 12.9 g/dL Normal 11.7-15.5 [facility] Comment on above: Performed By: #### A CA, 5124-3, 72056-8, 97201-8, 06939-9 #### [facility] ([id number]) [address] [address] [place] [address] MCH (RBC) [Entitic mass] 30.2 pg Normal 27-34 [facility] Comment on above: Performed By: #### A CA, 5124-3, 61443-7, 18033-4, 13495-0 #### [facility] ([id number]) [address] [address] MCHC (RBC) [Mass/Vol] 34.0 g/dL Normal 32-36 [facility] Comment on above: Performed By: #### A CA, 5124-3, 43912-2, 03677-0, 56341-0 #### [facility] ([id number]) [address] [address] [place] [address] MCV (RBC) [Entitic vol] 89 fL Normal 80-100 [facility] Comment on above: Performed By: #### A CA, 5124-3, 38065-0, 75602-2, 84414-2 #### [facility] ([id number]) [address], [facility] [address] [place] [address] Platelet mean volume (Bld) [Entitic vol] 8.2 fL Normal 7-12 [facility] Comment on above: Performed By: #### A CA, 5124-3, 64378-5, 99981-3, 92227-2 #### [facility] ([id number]) [address], [facility] [address] [place] [address] Platelets (Bld) [#/Vol] 410 10*3/uL Normal 150-450 [facility] Comment on above: Performed By: #### A CA, 5124-3, 43632-2, 13508-9, 64876-3 #### [facility] ([id number]) [address], [facility] [address] [place] [address] RBC COUNT 4.28 X10E12/L Normal 3.80-5.20 [facility] Comment on above: Performed By: #### A CA, 5124-3, 03022-5, 89089-8, 18072-0 #### [facility] ([id number]) [address], [facility] [address] [place] [address] WBC (Bld) [#/Vol] 19.3 10*3/uL High 4.0-11.0 [facility] Comment on above: Performed By: #### A CA, 5124-3, 99654-7, 24936-0, 02876-0 #### [facility] ([id number]) [address], [address] [place] [address] COMPREHENSIVE METABOLIC PANE Yasmani 10-09-2023 Albumin [Mass/Vol] 3.6 g/dL Normal 3.2-5.3 [facility] Comment on above: Performed By: #### A CA, 5124-3, 29690-4, 35438-6, 92653-5 #### [facility] ([id number]) [address], [address] [place] [address] ALP [Catalytic activity/Vol] 95 U/L Normal 39-130 [facility] Comment on above: Performed By: #### A CA, 5124-3, 68871-0, 90320-6, 52544-7 #### [facility] ([id number]) [address], [address] [place] [address] ALT [Catalytic activity/Vol] 23 U/L Normal 0-31 [facility] Comment on above: Performed By: #### A CA, 5124-3, 41013-9, 82988-6, 86740-6 #### [facility] ([id number]) [address], [facility] [address] [place] [address] Anion gap [Moles/Vol] 15 mmol/L Normal 5-15 [facility] Comment on above: Performed By: #### A CA, 5124-3, 11157-9, 23612-5, 06441-2 #### [facility] ([id number]) [address], [facility] [address] [place] [address] AST [Catalytic activity/Vol] 24 U/L Normal 0-41 [facility] Comment on above: Performed By: #### A CA, 5124-3, 07660-6, 29617-2, 95664-2 #### [facility] ([id number]) [address], [facility] [address] [place] [address] Bilirubin [Mass/Vol] 0.2 mg/dL Low 0.3-1.2 [facility] Comment on above: Performed By: #### A CA, 5124-3, 71562-2, 38653-2, 81826-2 #### [facility] ([id number]) [address] [address] [place] [address] Calcium [Mass/Vol] 9.3 mg/dL Normal 8.5-10.5 [facility] Comment on above: Performed By: #### A CA, 5124-3, 34590-8, 61741-8, 06968-9 #### [facility] ([id number]) [address], [address] [place] [address] Chloride [Moles/Vol] 103 mmol/L Normal 98-109 [facility] Comment on above: Performed By: #### A CA, 5124-3, 30258-9, 60386-7, 20070-1 #### [facility] ([id number]) [address], [facility] [address] [place] [address] CO2 [Moles/Vol] 19 mmol/L Low 22-32 [facility] Comment on above: Performed By: #### A CA, 5124-3, 41140-6, 33007-1, 77559-9 #### [facility] ([id number]) [address] [address] Creatinine [Mass/Vol] 0.71 mg/dL Normal 0.40-1.00 [facility] Comment on above: Result Comment: METH OD TRACEABLE TO IDMS STANDARD Performed By: #### A CA, 5124-3, 25291-0, 33952-9, 95214-9 #### [facility] ([id number]) [address] [address] eGFR (CKD-EPI) NON-RACE DEPENDENT >90 Normal >59 [facility] Comment on above: Result Comment: Reported eGFR is based on the CKD-EPI 2020 equation that does not use a race coefficient. Performed By: #### A CA, 5124-3, 55173-1, 98224-1, 16997-6 #### [facility] ([id number]) [address], [address] [place] [address] Glucose [Mass/Vol] 122 mg/dL High 65-99 [facility] Comment on above: Performed By: #### A CA, 5124-3, 41226-2, 29002-3, 07744-3 #### [facility] ([id number]) [address] [address] [place] [address] Potassium [Moles/Vol] 4.0 mmol/L Normal 3.5-5.0 [facility] Comment on above: Performed By: #### A CA, 5124-3, 51081-8, 16035-2, 55108-6 #### [facility] ([id number]) [address] [facility] [facility] [address] [place] [address] Protein [Mass/Vol] 7.0 g/dL Normal 6.0-8.0 [facility] Comment on above: Performed By: #### A CA, 5124-3, 91853-5, 23184-9, 95708-5 #### [facility] ([id number]) [address] [facility] [address] [place] [address] Sodium [Moles/Vol] 137 mmol/L Normal 134-146 [facility] Comment on above: Performed By: #### A CA, 5124-3, 39039-1, 53962-2, 78038-9 #### [facility] ([id number]) [address] [address] Urea nitrogen [Mass/Vol] 20 mg/dL Normal 5-23 [facility] Comment on above: Performed By: #### A CA, 5124-3, 72043-3, 89405-8, 59390-1 #### [facility] ([id number]) [address] [facility], [address] [address] Surgical Pathologyon 024 Surgical Pathology Normal [facility] Comment on above: Result Comment: [facility] [address] [place] [address] Surgical Pathology Consultation Patient Name:SISI MORA:1995 (Age: 28)Gender:FTaken:4Reported:4Physician(s):Sue Holland M.D. ([id number])Copy To:[facility] #:[id number]. Rec. #:[id number]: #[id number] Final Pathologic Diagnosis Placenta: small for gestational age third trimester placenta (193 g, <10th percentile for gestational age of 30 weeks), demonstrating focal placental infarcts, incomplete adaptation for (maternal decidual vasculopathy) and increased syncytial knots. Negative membranes. Unremarkable three-vessel umbilical cord with eccentric insertion. Report Electronically Signed Out ao10/27/2023celine Steward MD Interpretation performed at [facility], [address] [place] [address], License number: [id number]. Clinical History Pre-eclampsia severe, with delivery. Gross Description Received in formalin labeled MORA, placenta : Single MEMBRANES: Placenta Sac Rupture (cm [...] Rolled membrane, two sections of cord B-D [employer] sections of placenta (to include rubbery areas in cassette C???D) E Additional rolled membrane (5, ss, [id number],A-E, m5) BALDEMAR canales/10/21/2023O Specimen(s) Received Placenta Fee Codes(s): 1; 97204 CBC AND AUTO DIFFon 10-07-19 ABSOLUTE BASOPHIL 0.1 X10E9/L Normal 0.0-0.2 [facility] Comment on above: Performed By: #### A CA, 5124-3, 07785-0, 32460-9, 89518-5 #### [facility] ([id number]) [address], [address] [place] [address] ABSOLUTE NEUTROPHIL 9.6 X10E9/L High 1.5-6.6 [facility] Comment on above: Performed By: #### A CA, 5124-3, 22039-5, 42515-1, 16736-5 #### [facility] ([id number]) [address], [address] [address] Basophils/100 WBC (Bld) 0.7 % Normal [facility] Comment on above: Performed By: #### A PARUL, 5124-3, 16713-8, 81126-2, 89363-2 #### [facility] ([id number]) [address], [address] [address] Eosinophils (Bld) [#/Vol] 0.2 10*3/uL Normal 0.0-0.4 [facility] Comment on above: Performed By: #### A PARUL, 5124-3, 55074-4, 99246-9, 86188-6 #### [facility] ([id number]) [address], [address] [address] Eosinophils/100 WBC (Bld) 1.5 % Normal [facility] Comment on above: Performed By: #### A CA, 5124-3, 03408-1, 45487-6, 81136-1 #### [facility] ([id number]) [address] [address] Erythrocyte distribution width (RBC) [Ratio] 12.9 % Normal 11.5-15.0 [facility] Comment on above: Performed By: #### A PARUL, 5124-3, 82397-6, 34973-0, 49735-9 #### [facility] ([id number]) [address] [address] [place] [address] Hematocrit (Bld) [Volume fraction] 38.9 % Normal 35-47 [facility] Comment on above: Performed By: #### A CA, 5124-3, 20074-8, 70602-3, 86061-6 #### [facility] ([id number]) [address], [address] [address] Hemoglobin (Bld) [Mass/Vol] 13.1 g/dL Normal 11.7-15.5 [facility] Comment on above: Performed By: #### A CA, 5124-3, 86496-4, 76916-9, 27577-4 #### [facility] ([id number]) [address] [address] Lymphocytes (Bld) [#/Vol] 4.8 10*3/uL High 1.0-3.5 [facility] Comment on above: Performed By: #### A CA, 5124-3, 81098-5, 07843-1, 63366-8 #### [facility] ([id number]) [address] [address] Lymphocytes/100 WBC (Bld) 30.6 % Normal [facility] Comment on above: Performed By: #### A CA, 5124-3, 94920-9, 75025-3, 77414-8 #### [facility] ([id number]) [address] [address] MCH (RBC) [Entitic mass] 30.2 pg Normal 27-34 [facility] Comment on above: Performed By: #### A CA, 5124-3, 96944-9, 40020-0, 01780-8 #### [facility] ([id number]) [address], [address] [address] MCHC (RBC) [Mass/Vol] 33.7 g/dL Normal 32-36 [facility] Comment on above: Performed By: #### A CA, 5124-3, 84197-9, 55907-7, 26658-0 #### [facility] ([id number]) [address] [address] MCV (RBC) [Entitic vol] 90 fL Normal 80-100 [facility] Comment on above: Performed By: #### A CA, 5124-3, 45781-9, 42811-9, 95312-1 #### [facility] ([id number]) [address] [address] Monocytes (Bld) [#/Vol] 0.9 10*3/uL Normal 0-0.9 [facility] Comment on above: Performed By: #### A PARUL, 5124-3, 36621-8, 12138-4, 81875-7 #### [facility] ([id number]) [address] [address] Monocytes/100 WBC (Bld) 6.0 % Normal [facility] Comment on above: Performed By: #### A PARUL, 5124-3, 30879-6, 76687-3, 43370-6 #### [facility] ([id number]) [address] [address] Neutrophils/100 WBC (Bld) 61.2 % Normal [facility] Comment on above: Performed By: #### A CA, 5124-3, 10953-2, 57255-8, 94243-6 #### [facility] ([id number]) [address] [address] Platelet mean volume (Bld) [Entitic vol] 7.9 fL Normal 7-12 [facility] Comment on above: Performed By: #### A CA, 5124-3, 75497-9, 73129-8, 56305-0 #### [facility] ([id number]) [address], [facility] [address] [place] [address] Platelets (Bld) [#/Vol] 385 10*3/uL Normal 150-450 [facility] Comment on above: Performed By: #### A CA, 5124-3, 70131-1, 98118-8, 45666-6 #### [facility] ([id number]) [address], [address] [place] [address] RBC COUNT 4.35 X10E12/L Normal 3.80-5.20 [facility] Comment on above: Performed By: #### A CA, 5124-3, 90229-7, 84404-0, 84671-0 #### [facility] ([id number]) [address], [address] [address] WBC (Bld) [#/Vol] 15.7 10*3/uL High 4.0-11.0 [facility] Comment on above: Performed By: #### A CA, 5124-3, 86462-8, 48529-3, 66982-4 #### [facility] ([id number]) [address], [address] [place] [address] COMPREHENSIVE METABOLIC PANE Yasmani 10-07-2023 Albumin [Mass/Vol] 3.2 g/dL Normal 3.2-5.3 [facility] Comment on above: Performed By: #### A CA, 5124-3, 10017-3, 66043-8, 42587-5 #### [facility] ([id number]) [address], [address] [place] [address] ALP [Catalytic activity/Vol] 73 U/L Normal 39-130 [facility] Comment on above: Performed By: #### A CA, 5124-3, 71701-2, 30220-1, 40346-3 #### [facility] ([id number]) [address], [address] [place] [address] ALT [Catalytic activity/Vol] 14 U/L Normal 0-31 [facility] Comment on above: Performed By: #### A CA, 5124-3, 19650-6, 64129-7, 32314-5 #### [facility] ([id number]) [address], [address] [place] [address] Anion gap [Moles/Vol] 10 mmol/L Normal 5-15 [facility] Comment on above: Performed By: #### A CA, 5124-3, 33335-1, 58998-8, 85577-6 #### [facility] ([id number]) [address], [address] [place] [address] AST [Catalytic activity/Vol] 17 U/L Normal 0-41 [facility] Comment on above: Performed By: #### A CA, 5124-3, 40391-2, 50041-6, 46926-2 #### [facility] ([id number]) [address], [address] [place] [address] Bilirubin [Mass/Vol] 0.2 mg/dL Low 0.3-1.2 [facility] Comment on above: Performed By: #### A CA, 5124-3, 32190-7, 02417-8, 33001-5 #### [facility] ([id number]) [address], [address] [place] [address] Calcium [Mass/Vol] 8.9 mg/dL Normal 8.5-10.5 [facility] Comment on above: Performed By: #### A CA, 5124-3, 28710-3, 68110-2, 63330-3 #### [facility] ([id number]) [address], [address] [place] [address] Chloride [Moles/Vol] 104 mmol/L Normal 98-109 [facility] Comment on above: Performed By: #### A CA, 5124-3, 54805-2, 14007-5, 87443-7 #### [facility] ([id number]) [address], [address] [place] [address] CO2 [Moles/Vol] 24 mmol/L Normal 22-32 [facility] Comment on above: Performed By: #### A CA, 5124-3, 95216-3, 88960-6, 40201-4 #### [facility] ([id number]) [address], [facility] [address] [place] [address] Creatinine [Mass/Vol] 0.69 mg/dL Normal 0.40-1.00 [facility] Comment on above: Result Comment: METH OD TRACEABLE TO IDMS STANDARD Performed By: #### A PARUL, 5124-3, 77493-5, 09301-5, 07868-6 #### [facility] ([id number]) [address], [facility] [address] [place] [address] eGFR (CKD-EPI) NON-RACE DEPENDENT >90 Normal >59 [facility] Comment on above: Result Comment: Reported eGFR is based on the CKD-EPI 1 equation that does not use a race coefficient. Performed By: #### A PARUL, 5124-3, 79037-5, 08698-9, 70484-6 #### [facility] ([id number]) [address], [facility] [address] [place] [address] Glucose [Mass/Vol] 76 mg/dL Normal 65-99 [facility] Comment on above: Performed By: #### A CA, 5124-3, 24800-6, 22297-4, 96478-5 #### [facility] ([id number]) [address], [facility] [address] [place] [address] Potassium [Moles/Vol] 3.9 mmol/L Normal 3.5-5.0 [facility] Comment on above: Performed By: #### A CA, 5124-3, 86204-1, 78468-9, 63207-0 #### [facility] ([id number]) [address], [address] [place] [address] Protein [Mass/Vol] 6.2 g/dL Normal 6.0-8.0 [facility] Comment on above: Performed By: #### A CA, 5124-3, 60320-0, 44698-9, 81822-9 #### [facility] ([id number]) [address], [facility] [address] [place] [address] Sodium [Moles/Vol] 138 mmol/L Normal 134-146 [facility] Comment on above: Performed By: #### A PARUL, 5124-3, 01353-9, 42500-0, 88344-7 #### [facility] ([id number]) [address], [address] [place] [address] Urea nitrogen [Mass/Vol] 17 mg/dL Normal 5-23 [facility] Comment on above: Performed By: #### A PARUL, 5124-3, 59361-6, 47047-2, 31001-0 #### [facility] ([id number]) [address], [address] [address] CBC AND AUTO DIFFon 10-06-19 ABSOLUTE BASOPHIL 0.1 X10E9/L Normal 0.0-0.2 [facility] Comment on above: Performed By: #### A CA, 5124-3, 35948-3, 90971-5, 71614-3 #### [facility] ([id number]) [address], [facility] [address] [place] [address] ABSOLUTE NEUTROPHIL 8.4 X10E9/L High 1.5-6.6 [facility] Comment on above: Performed By: #### A CA, 5124-3, 30758-7, 28920-1, 82761-7 #### [facility] ([id number]) [address] [address] Basophils/100 WBC (Bld) 0.4 % Normal [facility] Comment on above: Performed By: #### A CA, 5124-3, 57969-2, 17064-4, 17880-1 #### [facility] ([id number]) [address] [address] Eosinophils (Bld) [#/Vol] 0.2 10*3/uL Normal 0.0-0.4 [facility] Comment on above: Performed By: #### A CA, 5124-3, 18050-5, 96040-3, 25518-3 #### [facility] ([id number]) [address] [address] Eosinophils/100 WBC (Bld) 1.5 % Normal [facility] Comment on above: Performed By: #### A CA, 5124-3, 82780-3, 11710-6, 65875-2 #### [facility] ([id number]) [address] [address] Erythrocyte distribution width (RBC) [Ratio] 12.6 % Normal 11.5-15.0 [facility] Comment on above: Performed By: #### A CA, 5124-3, 34175-9, 20769-8, 41281-7 #### [facility] ([id number]) [address] [address] Hematocrit (Bld) [Volume fraction] 37.4 % Normal 35-47 [facility] Comment on above: Performed By: #### A CA, 5124-3, 00455-9, 79274-1, 98025-7 #### [facility] ([id number]) [address] [address] Hemoglobin (Bld) [Mass/Vol] 13.1 g/dL Normal 11.7-15.5 [facility] Comment on above: Performed By: #### A CA, 5124-3, 61170-1, 59235-8, 60131-2 #### [facility] ([id number]) [address], [facility] [address] [place] [address] Lymphocytes (Bld) [#/Vol] 5.1 10*3/uL High 1.0-3.5 [facility] Comment on above: Performed By: #### A CA, 5124-3, 21500-6, 92566-6, 39595-3 #### [facility] ([id number]) [address], [facility] [address] [place] [address] Lymphocytes/100 WBC (Bld) 34.8 % Normal [facility] Comment on above: Performed By: #### A PARUL, 5124-3, 85071-7, 95135-5, 79080-0 #### [facility] ([id number]) [address], [facility] [address] [place] [address] MCH (RBC) [Entitic mass] 30.9 pg Normal 27-34 [facility] Comment on above: Performed By: #### A PARUL, 5124-3, 78459-4, 83262-4, 83655-1 #### [facility] ([id number]) [address], [facility] [address] [place] [address] MCHC (RBC) [Mass/Vol] 34.9 g/dL Normal 32-36 [facility] Comment on above: Performed By: #### A CA, 5124-3, 44946-0, 02265-4, 62864-0 #### [facility] ([id number]) [address], [facility] [address] [place] [address] MCV (RBC) [Entitic vol] 88 fL Normal 80-100 [facility] Comment on above: Performed By: #### A CA, 5124-3, 06583-0, 99782-6, 48796-7 #### [facility] ([id number]) [address], [address] [place] [address] Monocytes (Bld) [#/Vol] 0.8 10*3/uL Normal 0-0.9 [facility] Comment on above: Performed By: #### A CA, 5124-3, 74940-8, 09769-9, 10900-6 #### [facility] ([id number]) [address], [facility] [address] [place] [address] Monocytes/100 WBC (Bld) 5.7 % Normal [facility] Comment on above: Performed By: #### A CA, 5124-3, 41863-7, 36011-6, 32746-0 #### [facility] ([id number]) [address], [address] [place] [address] Neutrophils/100 WBC (Bld) 57.6 % Normal [facility] Comment on above: Performed By: #### A CA, 5124-3, 54277-3, 49700-6, 51128-3 #### [facility] ([id number]) [address], [address] [place] [address] Platelet mean volume (Bld) [Entitic vol] 7.9 fL Normal 7-12 [facility] Comment on above: Performed By: #### A CA, 5124-3, 14314-2, 69629-8, 92930-7 #### [facility] ([id number]) [address], [address] [place] [address] Platelets (Bld) [#/Vol] 398 10*3/uL Normal 150-450 [facility] Comment on above: Performed By: #### A CA, 5124-3, 74274-3, 55254-2, 70525-6 #### [facility] ([id number]) [address], [address] [place] [address] RBC COUNT 4.23 X10E12/L Normal 3.80-5.20 [facility] Comment on above: Performed By: #### A CA, 5124-3, 80139-8, 72622-2, 92162-7 #### [facility] ([id number]) [address], [address] [place] [address] WBC (Bld) [#/Vol] 14.7 10*3/uL High 4.0-11.0 [facility] Comment on above: Performed By: #### A PARUL, 5124-3, 49464-2, 68875-6, 39832-2 #### [facility] ([id number]) [address], [address] [place] [address] COMPREHENSIVE METABOLIC PANE Yasmani 10-06-2023 Albumin [Mass/Vol] 3.2 g/dL Normal 3.2-5.3 [facility] Comment on above: Performed By: #### A PARUL, 5124-3, 46284-1, 52155-6, 70573-0 #### [facility] ([id number]) [address], [address] [place] [address] ALP [Catalytic activity/Vol] 71 U/L Normal 39-130 [facility] Comment on above: Performed By: #### A CA, 5124-3, 26398-2, 21088-2, 36948-1 #### [facility] ([id number]) [address], [address] [place] [address] ALT [Catalytic activity/Vol] 12 U/L Normal 0-31 [facility] Comment on above: Performed By: #### A CA, 5124-3, 11313-8, 36834-9, 54707-3 #### [facility] ([id number]) [address], [address] [place] [address] Anion gap [Moles/Vol] 10 mmol/L Normal 5-15 [facility] Comment on above: Performed By: #### A CA, 5124-3, 98286-5, 41511-8, 95440-4 #### [facility] ([id number]) [address], [address] [place] [address] AST [Catalytic activity/Vol] 17 U/L Normal 0-41 [facility] Comment on above: Performed By: #### A CA, 5124-3, 92819-9, 06288-5, 95273-2 #### [facility] ([id number]) [address], [address] [place] [address] Bilirubin [Mass/Vol] 0.3 mg/dL Normal 0.3-1.2 [facility] Comment on above: Performed By: #### A CA, 5124-3, 13464-9, 52664-1, 70348-6 #### [facility] ([id number]) [address], [address] [place] [address] Calcium [Mass/Vol] 9.1 mg/dL Normal 8.5-10.5 [facility] Comment on above: Performed By: #### A CA, 5124-3, 60571-1, 67215-1, 22464-6 #### [facility] ([id number]) [address], [address] [place] [address] Chloride [Moles/Vol] 103 mmol/L Normal 98-109 [facility] Comment on above: Performed By: #### A CA, 5124-3, 36162-6, 93633-1, 19586-0 #### [facility] ([id number]) [address], [address] [place] [address] CO2 [Moles/Vol] 24 mmol/L Normal 22-32 [facility] Comment on above: Performed By: #### A CA, 5124-3, 40065-1, 04601-0, 66243-2 #### [facility] ([id number]) [address] [address] [place] [address] Creatinine [Mass/Vol] 0.77 mg/dL Normal 0.40-1.00 [facility] Comment on above: Result Comment: METH OD TRACEABLE TO IDMS STANDARD Performed By: #### A CA, 5124-3, 38053-4, 81479-0, 89164-6 #### [facility] ([id number]) [address], [facility] [address] [place] [address] eGFR (CKD-EPI) NON-RACE DEPENDENT >90 Normal >59 [facility] Comment on above: Result Comment: Reported eGFR is based on the CKD-EPI 2020 equation that does not use a race coefficient. Performed By: #### A PARUL, 5124-3, 76898-7, 92447-6, 76660-7 #### [facility] ([id number]) [address], [address] [address] Glucose [Mass/Vol] 75 mg/dL Normal 65-99 [facility] Comment on above: Performed By: #### A CA, 5124-3, 14066-4, 92659-2, 02974-3 #### [facility] ([id number]) [address] [address] Potassium [Moles/Vol] 4.2 mmol/L Normal 3.5-5.0 [facility] Comment on above: Performed By: #### A CA, 5124-3, 05606-5, 62494-8, 49527-4 #### [facility] ([id number]) [address] [address] Protein [Mass/Vol] 6.3 g/dL Normal 6.0-8.0 [facility] Comment on above: Performed By: #### A CA, 5124-3, 84719-6, 73669-2, 15652-8 #### [facility] ([id number]) [address], [address] [place] [address] Sodium [Moles/Vol] 137 mmol/L Normal 134-146 [facility] Comment on above: Performed By: #### A CA, 5124-3, 07599-4, 91743-2, 29840-5 #### [facility] ([id number]) [address], [facility] [address] [place] [address] Urea nitrogen [Mass/Vol] 15 mg/dL Normal 5-23 [facility] Comment on above: Performed By: #### A CA, 5124-3, 50591-2, 68130-5, 54027-8 #### [facility] ([id number]) [address], [address] [address] CBC AND AUTO DIFFon 10-04- 24 ABSOLUTE BASOPHIL 0.1 X10E9/L Normal 0.0-0.2 [facility] Comment on above: Performed By: #### A CA, 5124-3, 80204-9, 32674-4, 89956-9 #### [facility] ([id number]) [address] [address] [place] [address] ABSOLUTE NEUTROPHIL 9.6 X10E9/L High 1.5-6.6 [facility] Comment on above: Performed By: #### A CA, 5124-3, 33858-4, 93451-8, 92392-5 #### [facility] ([id number]) [address] [address] Basophils/100 WBC (Bld) 0.4 % Normal [facility] Comment on above: Performed By: #### A CA, 5124-3, 78983-7, 65371-7, 16273-7 #### [facility] ([id number]) [address], [address] [place] [address] Eosinophils (Bld) [#/Vol] 0.2 10*3/uL Normal 0.0-0.4 [facility] Comment on above: Performed By: #### A PARUL, 5124-3, 60624-0, 45172-3, 94510-8 #### [facility] ([id number]) [address] [address] [place] [address] Eosinophils/100 WBC (Bld) 1.2 % Normal [facility] Comment on above: Performed By: #### A PARUL, 5124-3, 10682-5, 21745-2, 38833-2 #### [facility] ([id number]) [address] [address] Erythrocyte distribution width (RBC) [Ratio] 13.3 % Normal 11.5-15.0 [facility] Comment on above: Performed By: #### A PARUL, 5124-3, 48866-4, 04425-0, 08077-2 #### [facility] ([id number]) [address] [address] [place] [address] Hematocrit (Bld) [Volume fraction] 39.9 % Normal 35-47 [facility] Comment on above: Performed By: #### A PARUL, 5124-3, 21483-6, 90618-9, 91367-8 #### [facility] ([id number]) [address] [address] [place] [address] Hemoglobin (Bld) [Mass/Vol] 13.5 g/dL Normal 11.7-15.5 [facility] Comment on above: Performed By: #### A PARUL, 5124-3, 19423-3, 52823-3, 37168-4 #### [facility] ([id number]) [address] [address] [place] [address] Lymphocytes (Bld) [#/Vol] 4.3 10*3/uL High 1.0-3.5 [facility] Comment on above: Performed By: #### A CA, 5124-3, 86976-6, 42493-5, 59564-2 #### [facility] ([id number]) [address] [address] Lymphocytes/100 WBC (Bld) 28.8 % Normal [facility] Comment on above: Performed By: #### A CA, 5124-3, 26188-4, 92026-4, 85595-4 #### [facility] ([id number]) [address] [address] MCH (RBC) [Entitic mass] 30.0 pg Normal 27-34 [facility] Comment on above: Performed By: #### A CA, 5124-3, 65011-1, 90152-0, 22619-1 #### [facility] ([id number]) [address] [address] MCHC (RBC) [Mass/Vol] 34.0 g/dL Normal 32-36 [facility] Comment on above: Performed By: #### A CA, 5124-3, 76617-0, 10382-1, 93242-5 #### [facility] ([id number]) [address] [address] MCV (RBC) [Entitic vol] 88 fL Normal 80-100 [facility] Comment on above: Performed By: #### A CA, 5124-3, 62059-1, 89839-5, 74793-0 #### [facility] ([id number]) [address] [address] Monocytes (Bld) [#/Vol] 0.8 10*3/uL Normal 0-0.9 [facility] Comment on above: Performed By: #### A CA, 5124-3, 32776-8, 49734-6, 34454-3 #### [facility] ([id number]) [address], [address] [place] [address] Monocytes/100 WBC (Bld) 5.1 % Normal [facility] Comment on above: Performed By: #### A CA, 5124-3, 38279-2, 32420-1, 40237-0 #### [facility] ([id number]) [address], [facility] [address] [place] [address] Neutrophils/100 WBC (Bld) 64.5 % Normal [facility] Comment on above: Performed By: #### A CA, 5124-3, 13303-1, 27574-4, 72112-2 #### [facility] ([id number]) [address], [address] [place] [address] Platelet mean volume (Bld) [Entitic vol] 7.9 fL Normal 7-12 [facility] Comment on above: Performed By: #### A CA, 5124-3, 96960-0, 99555-0, 04130-8 #### [facility] ([id number]) [address], [facility] [address] [place] [address] Platelets (Bld) [#/Vol] 420 10*3/uL Normal 150-450 [facility] Comment on above: Performed By: #### A CA, 5124-3, 69773-8, 11568-7, 56997-9 #### [facility] ([id number]) [address], [address] [place] [address] RBC COUNT 4.51 X10E12/L Normal 3.80-5.20 [facility] Comment on above: Performed By: #### A CA, 5124-3, 75669-9, 90832-3, 89076-6 #### [facility] ([id number]) [address], [address] [place] [address] WBC (Bld) [#/Vol] 14.8 10*3/uL High 4.0-11.0 [facility] Comment on above: Performed By: #### A CA, 5124-3, 62099-6, 50127-9, 29337-5 #### [facility] ([id number]) [address], [address] [place] [address] COMPREHENSIVE METABOLIC PANE Yasmani 10-05-2023 Albumin [Mass/Vol] 3.4 g/dL Normal 3.2-5.3 [facility] Comment on above: Performed By: #### A CA, 5124-3, 06909-8, 22640-6, 45930-7 #### [facility] ([id number]) [address], [address] [place] [address] ALP [Catalytic activity/Vol] 79 U/L Normal 39-130 [facility] Comment on above: Performed By: #### A CA, 5124-3, 33238-9, 62504-3, 32773-0 #### [facility] ([id number]) [address], [address] [place] [address] ALT [Catalytic activity/Vol] 12 U/L Normal 0-31 [facility] Comment on above: Performed By: #### A CA, 5124-3, 88407-9, 79910-2, 01617-6 #### [facility] ([id number]) [address], [address] [place] [address] Anion gap [Moles/Vol] 10 mmol/L Normal 5-15 [facility] Comment on above: Performed By: #### A CA, 5124-3, 61618-4, 23886-0, 79593-9 #### [facility] ([id number]) [address], [address] [place] [address] AST [Catalytic activity/Vol] 18 U/L Normal 0-41 [facility] Comment on above: Performed By: #### A CA, 5124-3, 96112-0, 50199-2, 63854-7 #### [facility] ([id number]) [address], [address] [place] [address] Bilirubin [Mass/Vol] 0.2 mg/dL Low 0.3-1.2 [facility] Comment on above: Performed By: #### A CA, 5124-3, 85376-1, 81191-7, 59772-4 #### [facility] ([id number]) [address], [address] [place] [address] Calcium [Mass/Vol] 9.2 mg/dL Normal 8.5-10.5 [facility] Comment on above: Performed By: #### A CA, 5124-3, 64597-2, 90083-1, 63252-4 #### [facility] ([id number]) [address], [address] [place] [address] Chloride [Moles/Vol] 104 mmol/L Normal 98-109 [facility] Comment on above: Performed By: #### A CA, 5124-3, 37534-8, 48702-3, 81146-1 #### [facility] ([id number]) [address], [address] [place] [address] CO2 [Moles/Vol] 23 mmol/L Normal 22-32 [facility] Comment on above: Performed By: #### A CA, 5124-3, 25331-1, 00860-5, 82292-6 #### [facility] ([id number]) [address], [address] [place] [address] Creatinine [Mass/Vol] 0.78 mg/dL Normal 0.40-1.00 [facility] Comment on above: Result Comment: METH OD TRACEABLE TO IDMS STANDARD Performed By: #### A CA, 5124-3, 30539-2, 48413-3, 98898-1 #### [facility] ([id number]) [address] [address] [place] [address] eGFR (CKD-EPI) NON-RACE DEPENDENT >90 Normal >59 [facility] Comment on above: Result Comment: Reported eGFR is based on the CKD-EPI 2020 equation that does not use a race coefficient. Performed By: #### A CA, 5124-3, 89104-2, 38164-8, 38420-3 #### [facility] ([id number]) [address], [facility] [address] [place] [address] Glucose [Mass/Vol] 93 mg/dL Normal 65-99 [facility] Comment on above: Performed By: #### A CA, 5124-3, 40358-0, 14638-3, 49178-1 #### [facility] ([id number]) [address] [address] [place] [address] Potassium [Moles/Vol] 3.9 mmol/L Normal 3.5-5.0 [facility] Comment on above: Performed By: #### A CA, 5124-3, 67228-1, 70149-3, 41195-3 #### [facility] ([id number]) [address] [address] [place] [address] Protein [Mass/Vol] 6.5 g/dL Normal 6.0-8.0 [facility] Comment on above: Performed By: #### A CA, 5124-3, 27051-7, 32447-4, 00100-4 #### [facility] ([id number]) [address] [address] [place] [address] Sodium [Moles/Vol] 137 mmol/L Normal 134-146 [facility] Comment on above: Performed By: #### A CA, 5124-3, 53009-4, 79623-8, 95851-3 #### [facility] ([id number]) [address] [address] [address] [place] [address] Urea nitrogen [Mass/Vol] 15 mg/dL Normal 5-23 [facility] Comment on above: Performed By: #### A PARUL, 5124-3, 20259-2, 27855-7, 20429-3 #### [facility] ([id number]) [address], [address] [place] [address] CBC AND AUTO DIFFon 10-04-19 ABSOLUTE BASOPHIL 0.1 X10E9/L Normal 0.0-0.2 [facility] Comment on above: Performed By: #### A PARUL, 5124-3, 29547-5, 12997-6, 64737-6 #### [facility] ([id number]) [address], [facility] [address] [place] [address] ABSOLUTE NEUTROPHIL 8.9 X10E9/L High 1.5-6.6 [facility] Comment on above: Performed By: #### A PARUL, 5124-3, 66071-4, 99308-7, 97619-5 #### [facility] ([id number]) [address], [facility] [address] [place] [address] Basophils/100 WBC (Bld) 0.4 % Normal [facility] Comment on above: Performed By: #### A PARUL, 5124-3, 13302-8, 41016-2, 47584-2 #### [facility] ([id number]) [address], [facility] [address] [place] [address] Eosinophils (Bld) [#/Vol] 0.2 10*3/uL Normal 0.0-0.4 [facility] Comment on above: Performed By: #### A PARUL, 5124-3, 95695-4, 82259-8, 04965-6 #### [facility] ([id number]) [address], [address] [address] Eosinophils/100 WBC (Bld) 1.5 % Normal [facility] Comment on above: Performed By: #### A CA, 5124-3, 09696-6, 80756-7, 07329-8 #### [facility] ([id number]) [address] [address] [place] [address] Erythrocyte distribution width (RBC) [Ratio] 12.8 % Normal 11.5-15.0 [facility] Comment on above: Performed By: #### A CA, 5124-3, 05316-2, 52506-7, 71628-7 #### [facility] ([id number]) [address] [address] Hematocrit (Bld) [Volume fraction] 39.6 % Normal 35-47 [facility] Comment on above: Performed By: #### A CA, 5124-3, 47118-7, 85896-4, 35499-6 #### [facility] ([id number]) [address] [address] Hemoglobin (Bld) [Mass/Vol] 13.1 g/dL Normal 11.7-15.5 [facility] Comment on above: Performed By: #### A CA, 5124-3, 44089-3, 52472-9, 52883-1 #### [facility] ([id number]) [address] [address] Lymphocytes (Bld) [#/Vol] 5.2 10*3/uL High 1.0-3.5 [facility] Comment on above: Performed By: #### A CA, 5124-3, 31947-2, 63745-8, 26517-8 #### [facility] ([id number]) [address] [address] Lymphocytes/100 WBC (Bld) 34.0 % Normal [facility] Comment on above: Performed By: #### A CA, 5124-3, 27624-5, 74541-9, 81793-5 #### [facility] ([id number]) [address], [address] [place] [address] MCH (RBC) [Entitic mass] 30.1 pg Normal 27-34 [facility] Comment on above: Performed By: #### A CA, 5124-3, 19673-9, 46522-4, 83816-6 #### [facility] ([id number]) [address], [address] [place] [address] MCHC (RBC) [Mass/Vol] 33.2 g/dL Normal 32-36 [facility] Comment on above: Performed By: #### A CA, 5124-3, 96801-4, 31291-6, 69103-5 #### [facility] ([id number]) [address], [facility] [address] [place] [address] MCV (RBC) [Entitic vol] 91 fL Normal 80-100 [facility] Comment on above: Performed By: #### A CA, 5124-3, 39372-2, 51497-2, 72885-6 #### [facility] ([id number]) [address], [facility] [address] [place] [address] Monocytes (Bld) [#/Vol] 0.8 10*3/uL Normal 0-0.9 [facility] Comment on above: Performed By: #### A CA, 5124-3, 45460-5, 42580-2, 93492-1 #### [facility] ([id number]) [address], [address] [place] [address] Monocytes/100 WBC (Bld) 5.3 % Normal [facility] Comment on above: Performed By: #### A CA, 5124-3, 64614-2, 09750-0, 28294-8 #### [facility] ([id number]) [address], [address] [place] [address] Neutrophils/100 WBC (Bld) 58.8 % Normal [facility] Comment on above: Performed By: #### A CA, 5124-3, 76822-1, 22266-8, 24501-1 #### [facility] ([id number]) [address], [address] [place] [address] Platelet mean volume (Bld) [Entitic vol] 8.3 fL Normal 7-12 [facility] Comment on above: Performed By: #### A CA, 5124-3, 19411-8, 75454-4, 92489-7 #### [facility] ([id number]) [address], [address] [place] [address] Platelets (Bld) [#/Vol] 386 10*3/uL Normal 150-450 [facility] Comment on above: Performed By: #### A PARUL, 5124-3, 77012-6, 11651-1, 41719-0 #### [facility] ([id number]) [address], [address] [place] [address] RBC COUNT 4.37 X10E12/L Normal 3.80-5.20 [facility] Comment on above: Performed By: #### A PARUL, 5124-3, 38410-2, 12362-4, 45838-7 #### [facility] ([id number]) [address], [address] [place] [address] WBC (Bld) [#/Vol] 15.2 10*3/uL High 4.0-11.0 [facility] Comment on above: Performed By: #### A CA, 5124-3, 28168-8, 14933-6, 88819-6 #### [facility] ([id number]) [address], [address] [place] [address] COMPREHENSIVE METABOLIC PANE Yasmani 10-04-2023 Albumin [Mass/Vol] 3.2 g/dL Normal 3.2-5.3 [facility] Comment on above: Performed By: #### A CA, 5124-3, 71984-1, 31714-2, 44711-7 #### [facility] ([id number]) [address], [address] [place] [address] ALP [Catalytic activity/Vol] 70 U/L Normal 39-130 [facility] Comment on above: Performed By: #### A CA, 5124-3, 20253-9, 02269-3, 90295-6 #### [facility] ([id number]) [address], [facility] [address] [place] [address] ALT [Catalytic activity/Vol] 12 U/L Normal 0-31 [facility] Comment on above: Performed By: #### A CA, 5124-3, 58422-5, 51151-7, 66144-7 #### [facility] ([id number]) [address], [facility] [address] [place] [address] Anion gap [Moles/Vol] 10 mmol/L Normal 5-15 [facility] Comment on above: Performed By: #### A CA, 5124-3, 19861-0, 89023-5, 85609-6 #### [facility] ([id number]) [address], [facility] [address] [place] [address] AST [Catalytic activity/Vol] 19 U/L Normal 0-41 [facility] Comment on above: Performed By: #### A CA, 5124-3, 29171-0, 37803-0, 99891-0 #### [facility] ([id number]) [address], [facility] [address] [place] [address] Bilirubin [Mass/Vol] 0.2 mg/dL Low 0.3-1.2 [facility] Comment on above: Performed By: #### A CA, 5124-3, 38778-2, 85345-6, 16153-4 #### [facility] ([id number]) [address], [address] [place] [address] Calcium [Mass/Vol] 9.0 mg/dL Normal 8.5-10.5 [facility] Comment on above: Performed By: #### A CA, 5124-3, 09322-2, 84765-5, 90164-8 #### [facility] ([id number]) [address], [facility] [address] [place] [address] Chloride [Moles/Vol] 105 mmol/L Normal 98-109 [facility] Comment on above: Performed By: #### A CA, 5124-3, 92700-1, 27857-2, 15386-6 #### [facility] ([id number]) [address], [facility] [address] [place] [address] CO2 [Moles/Vol] 24 mmol/L Normal 22-32 [facility] Comment on above: Performed By: #### A CA, 5124-3, 65574-2, 28531-3, 66720-0 #### [facility] ([id number]) [address] [address] Creatinine [Mass/Vol] 0.77 mg/dL Normal 0.40-1.00 [facility] Comment on above: Result Comment: METH OD TRACEABLE TO IDMS STANDARD Performed By: #### A CA, 5124-3, 36351-7, 50297-4, 15315-2 #### [facility] ([id number]) [address], [facility] [address] [place] [address] eGFR (CKD-EPI) NON-RACE DEPENDENT >90 Normal >59 [facility] Comment on above: Result Comment: Reported eGFR is based on the CKD-EPI 2020 equation that does not use a race coefficient. Performed By: #### A CA, 5124-3, 96795-9, 26467-7, 76169-4 #### [facility] ([id number]) [address], [facility] [address] [place] [address] Glucose [Mass/Vol] 71 mg/dL Normal 65-99 [facility] Comment on above: Performed By: #### A CA, 5124-3, 65377-0, 99629-8, 33930-5 #### [facility] ([id number]) [address], [address] [place] [address] Potassium [Moles/Vol] 4.0 mmol/L Normal 3.5-5.0 [facility] Comment on above: Performed By: #### A CA, 5124-3, 19938-0, 36417-9, 39579-1 #### [facility] ([id number]) [address], [facility] [address] [place] [address] Protein [Mass/Vol] 6.3 g/dL Normal 6.0-8.0 [facility] Comment on above: Performed By: #### A CA, 5124-3, 84918-0, 20647-5, 29406-4 #### [facility] ([id number]) [address], [address] [place] [address] Sodium [Moles/Vol] 139 mmol/L Normal 134-146 [facility] Comment on above: Performed By: #### A CA, 5124-3, 41857-3, 60636-1, 74761-0 #### [facility] ([id number]) [address], [facility] [address] [place] [address] Urea nitrogen [Mass/Vol] 15 mg/dL Normal 5-23 [facility] Comment on above: Performed By: #### A CA, 5124-3, 55239-4, 23561-6, 18537-7 #### [facility] ([id number]) [address], [facility] [address] [place] [address] CBC AND AUTO DIFFon 10-02-20 24 ABSOLUTE BASOPHIL 0.1 X10E9/L Normal 0.0-0.2 [facility] Comment on above: Performed By: #### A CA, 5124-3, 53108-9, 84275-8, 73286-1 #### [facility] ([id number]) [address], [address] [place] [address] ABSOLUTE NEUTROPHIL 9.5 X10E9/L High 1.5-6.6 [facility] Comment on above: Performed By: #### A CA, 5124-3, 07964-2, 09292-0, 01228-9 #### [facility] ([id number]) [address], [address] [place] [address] Basophils/100 WBC (Bld) 0.4 % Normal [facility] Comment on above: Performed By: #### A CA, 5124-3, 73451-0, 91002-7, 86926-3 #### [facility] ([id number]) [address], [facility] [address] [place] [address] Eosinophils (Bld) [#/Vol] 0.1 10*3/uL Normal 0.0-0.4 [facility] Comment on above: Performed By: #### A CA, 5124-3, 03465-2, 20917-9, 08652-2 #### [facility] ([id number]) [address], [address] [place] [address] Eosinophils/100 WBC (Bld) 0.8 % Normal [facility] Comment on above: Performed By: #### A CA, 5124-3, 51141-0, 82295-1, 69942-2 #### [facility] ([id number]) [address], [facility] [address] [place] [address] Erythrocyte distribution width (RBC) [Ratio] 12.9 % Normal 11.5-15.0 [facility] Comment on above: Performed By: #### A CA, 5124-3, 54630-6, 09906-1, 94829-9 #### [facility] ([id number]) [address], [address] [place] [address] Hematocrit (Bld) [Volume fraction] 39.2 % Normal 35-47 [facility] Comment on above: Performed By: #### A CA, 5124-3, 11266-9, 96741-5, 19386-9 #### [facility] ([id number]) [address], [facility] [address] [place] [address] Hemoglobin (Bld) [Mass/Vol] 13.0 g/dL Normal 11.7-15.5 [facility] Comment on above: Performed By: #### A CA, 5124-3, 75464-2, 80905-6, 63306-5 #### [facility] ([id number]) [address], [address] [address] Lymphocytes (Bld) [#/Vol] 4.4 10*3/uL High 1.0-3.5 [facility] Comment on above: Performed By: #### A CA, 5124-3, 90125-3, 75404-3, 98200-8 #### [facility] ([id number]) [address], [address] [address] Lymphocytes/100 WBC (Bld) 29.4 % Normal [facility] Comment on above: Performed By: #### A CA, 5124-3, 26155-4, 22886-0, 75113-2 #### [facility] ([id number]) [address], [address] [place] [address] MCH (RBC) [Entitic mass] 30.1 pg Normal 27-34 [facility] Comment on above: Performed By: #### A CA, 5124-3, 91007-5, 72526-2, 68445-2 #### [facility] ([id number]) [address], [address] [place] [address] MCHC (RBC) [Mass/Vol] 33.2 g/dL Normal 32-36 [facility] Comment on above: Performed By: #### A CA, 5124-3, 26041-9, 51457-5, 58647-7 #### [facility] ([id number]) [address], [facility] [address] [place] [address] MCV (RBC) [Entitic vol] 91 fL Normal 80-100 [facility] Comment on above: Performed By: #### A CA, 5124-3, 19897-0, 50065-5, 25574-1 #### [facility] ([id number]) [address], [address] [address] Monocytes (Bld) [#/Vol] 0.9 10*3/uL Normal 0-0.9 [facility] Comment on above: Performed By: #### A CA, 5124-3, 41769-6, 55823-5, 36360-3 #### [facility] ([id number]) [address], [address] [address] Monocytes/100 WBC (Bld) 6.2 % Normal [facility] Comment on above: Performed By: #### A CA, 5124-3, 35645-7, 38618-4, 90232-7 #### [facility] ([id number]) [address], [address] [address] Neutrophils/100 WBC (Bld) 63.2 % Normal [facility] Comment on above: Performed By: #### A CA, 5124-3, 41580-5, 39349-5, 07482-6 #### [facility] ([id number]) [address], [facility] [address] [place] [address] Platelet mean volume (Bld) [Entitic vol] 8.5 fL Normal 7-12 [facility] Comment on above: Performed By: #### A CA, 5124-3, 87263-8, 93882-4, 13875-9 #### [facility] ([id number]) [address], [address] [place] [address] Platelets (Bld) [#/Vol] 359 10*3/uL Normal 150-450 [facility] Comment on above: Performed By: #### A CA, 5124-3, 59385-4, 66085-2, 46740-2 #### [facility] ([id number]) [address], [facility] [address] [place] [address] RBC COUNT 4.34 X10E12/L Normal 3.80-5.20 [facility] Comment on above: Performed By: #### A CA, 5124-3, 84407-2, 51832-4, 51281-3 #### [facility] ([id number]) [address], [address] [address] WBC (Bld) [#/Vol] 14.9 10*3/uL High 4.0-11.0 [facility] Comment on above: Performed By: #### A CA, 5124-3, 93152-8, 31044-5, 40216-6 #### [facility] ([id number]) [address], [facility] [address] [place] [address] COMPREHENSIVE METABOLIC PANE Yasmani 10-03-2023 Albumin [Mass/Vol] 3.3 g/dL Normal 3.2-5.3 [facility] Comment on above: Performed By: #### A CA, 5124-3, 47287-7, 05240-9, 96455-9 #### [facility] ([id number]) [address], [facility] [address] [place] [address] ALP [Catalytic activity/Vol] 70 U/L Normal 39-130 [facility] Comment on above: Performed By: #### A CA, 5124-3, 25234-7, 96026-0, 72138-8 #### [facility] ([id number]) [address], [address] [place] [address] ALT [Catalytic activity/Vol] 10 U/L Normal 0-31 [facility] Comment on above: Performed By: #### A CA, 5124-3, 27496-6, 09983-7, 94762-3 #### [facility] ([id number]) [address], [address] [place] [address] Anion gap [Moles/Vol] 12 mmol/L Normal 5-15 [facility] Comment on above: Performed By: #### A CA, 5124-3, 23075-0, 10486-8, 80572-4 #### [facility] ([id number]) [address], [address] [place] [address] AST [Catalytic activity/Vol] 15 U/L Normal 0-41 [facility] Comment on above: Performed By: #### A CA, 5124-3, 91452-2, 50646-2, 75514-2 #### [facility] ([id number]) [address], [address] [place] [address] Bilirubin [Mass/Vol] 0.3 mg/dL Normal 0.3-1.2 [facility] Comment on above: Performed By: #### A CA, 5124-3, 12823-8, 53678-5, 29636-1 #### [facility] ([id number]) [address], [address] [place] [address] Calcium [Mass/Vol] 9.1 mg/dL Normal 8.5-10.5 [facility] Comment on above: Performed By: #### A CA, 5124-3, 99048-9, 69574-4, 59682-2 #### [facility] ([id number]) [address], [address] [place] [address] Chloride [Moles/Vol] 103 mmol/L Normal 98-109 [facility] Comment on above: Performed By: #### A CA, 5124-3, 42680-5, 79326-8, 94606-1 #### [facility] ([id number]) [address] [address] [place] [address] CO2 [Moles/Vol] 23 mmol/L Normal 22-32 [facility] Comment on above: Performed By: #### A CA, 5124-3, 34664-0, 48522-6, 53559-4 #### [facility] ([id number]) [address], [facility] [address] [place] [address] Creatinine [Mass/Vol] 0.83 mg/dL Normal 0.40-1.00 [facility] Comment on above: Result Comment: METH OD TRACEABLE TO IDMS STANDARD Performed By: #### A PARUL, 5124-3, 16953-0, 62975-8, 60119-5 #### [facility] ([id number]) [address], [address] [address] eGFR (CKD-EPI) NON-RACE DEPENDENT >90 Normal >59 [facility] Comment on above: Result Comment: Reported eGFR is based on the CKD-EPI 2020 equation that does not use a race coefficient. Performed By: #### A PARUL, 5124-3, 21629-6, 37779-1, 42124-7 #### [facility] ([id number]) [address] [address] [place] [address] Glucose [Mass/Vol] 68 mg/dL Normal 65-99 [facility] Comment on above: Performed By: #### A CA, 5124-3, 73159-0, 56212-9, 89595-0 #### [facility] ([id number]) [address] [address] [place] [address] Potassium [Moles/Vol] 3.8 mmol/L Normal 3.5-5.0 [facility] Comment on above: Performed By: #### A CA, 5124-3, 08902-2, 71176-9, 78221-3 #### [facility] ([id number]) [address], [address] [place] [address] Protein [Mass/Vol] 6.4 g/dL Normal 6.0-8.0 [facility] Comment on above: Performed By: #### A CA, 5124-3, 80902-4, 82165-2, 13589-8 #### [facility] ([id number]) [address], [address] [place] [address] Sodium [Moles/Vol] 138 mmol/L Normal 134-146 [facility] Comment on above: Performed By: #### A CA, 5124-3, 77442-6, 90488-6, 01927-6 #### [facility] ([id number]) [address], [address] [address] Urea nitrogen [Mass/Vol] 18 mg/dL Normal 5-23 [facility] Comment on above: Performed By: #### A CA, 5124-3, 01993-4, 47264-3, 70741-1 #### [facility] ([id number]) [address] [address] CBC AND AUTO DIFFon 10-02-19 24 ABSOLUTE BASOPHIL 0.0 X10E9/L Normal 0.0-0.2 [facility] Comment on above: Performed By: #### A CA, 5124-3, 13647-6, 81345-6, 80672-8 #### [facility] ([id number]) [address] [address] ABSOLUTE NEUTROPHIL 12.3 X10E9/L High 1.5-6.6 [facility] Comment on above: Performed By: #### A CA, 5124-3, 45343-0, 29981-6, 87385-4 #### [facility] ([id number]) [address] [address] Basophils/100 WBC (Bld) 0.3 % Normal [facility] Comment on above: Performed By: #### A CA, 5124-3, 64268-9, 08825-4, 65269-2 #### [facility] ([id number]) [address] [address] Eosinophils (Bld) [#/Vol] 0.1 10*3/uL Normal 0.0-0.4 [facility] Comment on above: Performed By: #### A CA, 5124-3, 17681-6, 17566-5, 93748-3 #### [facility] ([id number]) [address] [address] Eosinophils/100 WBC (Bld) 0.7 % Normal [facility] Comment on above: Performed By: #### A CA, 5124-3, 37045-4, 35551-9, 11067-1 #### [facility] ([id number]) [address] [address] Erythrocyte distribution width (RBC) [Ratio] 13.3 % Normal 11.5-15.0 [facility] Comment on above: Performed By: #### A CA, 5124-3, 36298-5, 25101-2, 48061-2 #### [facility] ([id number]) [address] [address] Hematocrit (Bld) [Volume fraction] 40.3 % Normal 35-47 [facility] Comment on above: Performed By: #### A CA, 5124-3, 71774-3, 86828-0, 60449-5 #### [facility] ([id number]) [address] [address] Hemoglobin (Bld) [Mass/Vol] 13.4 g/dL Normal 11.7-15.5 [facility] Comment on above: Performed By: #### A CA, 5124-3, 55402-8, 73019-0, 73036-9 #### [facility] ([id number]) [address] [address] Lymphocytes (Bld) [#/Vol] 3.0 10*3/uL Normal 1.0-3.5 [facility] Comment on above: Performed By: #### A CA, 5124-3, 99939-9, 05813-2, 07051-9 #### [facility] ([id number]) [address] [address] Lymphocytes/100 WBC (Bld) 18.3 % Normal [facility] Comment on above: Performed By: #### A PARUL, 5124-3, 54919-4, 53507-8, 26881-3 #### [facility] ([id number]) [address] [address] MCH (RBC) [Entitic mass] 30.1 pg Normal 27-34 [facility] Comment on above: Performed By: #### A CA, 5124-3, 14205-6, 62579-0, 25778-7 #### [facility] ([id number]) [address] [address] MCHC (RBC) [Mass/Vol] 33.3 g/dL Normal 32-36 [facility] Comment on above: Performed By: #### A CA, 5124-3, 36842-0, 74364-6, 90110-5 #### [facility] ([id number]) [address] [address] MCV (RBC) [Entitic vol] 90 fL Normal 80-100 [facility] Comment on above: Performed By: #### A CA, 5124-3, 14136-7, 22085-8, 68518-2 #### [facility] ([id number]) [address], [facility] [address] [place] [address] Monocytes (Bld) [#/Vol] 1.1 10*3/uL High 0-0.9 [facility] Comment on above: Performed By: #### A CA, 5124-3, 58616-0, 88636-3, 26043-2 #### [facility] ([id number]) [address], [facility] [address] [place] [address] Monocytes/100 WBC (Bld) 6.5 % Normal [facility] Comment on above: Performed By: #### A CA, 5124-3, 41313-5, 42705-9, 02540-6 #### [facility] ([id number]) [address], [address] [address] Neutrophils/100 WBC (Bld) 74.2 % Normal [facility] Comment on above: Performed By: #### A CA, 5124-3, 08791-9, 41968-4, 40229-3 #### [facility] ([id number]) [address], [facility] [address] [place] [address] Platelet mean volume (Bld) [Entitic vol] 8.1 fL Normal 7-12 [facility] Comment on above: Performed By: #### A CA, 5124-3, 87271-7, 65149-2, 08154-4 #### [facility] ([id number]) [address], [facility] [address] [place] [address] Platelets (Bld) [#/Vol] 353 10*3/uL Normal 150-450 [facility] Comment on above: Performed By: #### A CA, 5124-3, 49346-9, 78515-8, 02795-6 #### [facility] ([id number]) [address], [facility] [address] [place] [address] RBC COUNT 4.46 X10E12/L Normal 3.80-5.20 [facility] Comment on above: Performed By: #### A CA, 5124-3, 45541-4, 96904-5, 60695-4 #### [facility] ([id number]) [address], [address] [place] [address] WBC (Bld) [#/Vol] 16.6 10*3/uL High 4.0-11.0 [facility] Comment on above: Performed By: #### A CA, 5124-3, 15562-5, 13683-1, 71805-8 #### [facility] ([id number]) [address], [address] [place] [address] COMPREHENSIVE METABOLIC PANE Yasmani 10-02-2023 Albumin [Mass/Vol] 3.2 g/dL Normal 3.2-5.3 [facility] Comment on above: Performed By: #### A CA, 5124-3, 88420-0, 55251-4, 85444-7 #### [facility] ([id number]) [address], [address] [place] [address] ALP [Catalytic activity/Vol] 68 U/L Normal 39-130 [facility] Comment on above: Performed By: #### A CA, 5124-3, 73262-3, 39563-4, 56007-4 #### [facility] ([id number]) [address], [address] [place] [address] ALT [Catalytic activity/Vol] 12 U/L Normal 0-31 [facility] Comment on above: Performed By: #### A CA, 5124-3, 29575-9, 02107-4, 78539-7 #### [facility] ([id number]) [address], [address] [place] [address] Anion gap [Moles/Vol] 12 mmol/L Normal 5-15 [facility] Comment on above: Performed By: #### A CA, 5124-3, 19030-5, 71226-8, 71479-6 #### [facility] ([id number]) [address], [address] [place] [address] AST [Catalytic activity/Vol] 18 U/L Normal 0-41 [facility] Comment on above: Performed By: #### A CA, 5124-3, 37039-4, 41759-8, 32433-9 #### [facility] ([id number]) [address], [address] [place] [address] Bilirubin [Mass/Vol] 0.3 mg/dL Normal 0.3-1.2 [facility] Comment on above: Performed By: #### A CA, 5124-3, 90056-2, 61757-6, 05373-8 #### [facility] ([id number]) [address], [address] [place] [address] Calcium [Mass/Vol] 7.9 mg/dL Low 8.5-10.5 [facility] Comment on above: Performed By: #### A CA, 5124-3, 32499-6, 40363-7, 04803-3 #### [facility] ([id number]) [address], [address] [place] [address] Chloride [Moles/Vol] 101 mmol/L Normal 98-109 [facility] Comment on above: Performed By: #### A CA, 5124-3, 76553-8, 65925-4, 28592-1 #### [facility] ([id number]) [address], [address] [place] [address] CO2 [Moles/Vol] 23 mmol/L Normal 22-32 [facility] Comment on above: Performed By: #### A CA, 5124-3, 24412-8, 69008-4, 62299-3 #### [facility] ([id number]) [address] [address] [place] [address] Creatinine [Mass/Vol] 0.74 mg/dL Normal 0.40-1.00 [facility] Comment on above: Result Comment: METH OD TRACEABLE TO IDMS STANDARD Performed By: #### A CA, 5124-3, 68784-9, 17800-2, 44121-4 #### [facility] ([id number]) [address], [facility] [address] [place] [address] eGFR (CKD-EPI) NON-RACE DEPENDENT >90 Normal >59 [facility] Comment on above: Result Comment: Reported eGFR is based on the CKD-EPI 2020 equation that does not use a race coefficient. Performed By: #### A CA, 5124-3, 56365-6, 86667-8, 00591-3 #### [facility] ([id number]) [address] [address] Glucose [Mass/Vol] 83 mg/dL Normal 65-99 [facility] Comment on above: Performed By: #### A CA, 5124-3, 50157-9, 42713-7, 66795-8 #### [facility] ([id number]) [address] [address] Potassium [Moles/Vol] 4.1 mmol/L Normal 3.5-5.0 [facility] Comment on above: Performed By: #### A CA, 5124-3, 54133-3, 75977-6, 42315-2 #### [facility] ([id number]) [address] [address] Protein [Mass/Vol] 6.4 g/dL Normal 6.0-8.0 [facility] Comment on above: Performed By: #### A CA, 5124-3, 74242-2, 64267-2, 94738-6 #### [facility] ([id number]) [address], [facility] [address] [place] [address] Sodium [Moles/Vol] 136 mmol/L Normal 134-146 [facility] Comment on above: Performed By: #### A CA, 5124-3, 38971-8, 89317-5, 89920-0 #### [facility] ([id number]) [address] [address] [place] [address] Urea nitrogen [Mass/Vol] 13 mg/dL Normal 5-23 [facility] Comment on above: Performed By: #### A CA, 5124-3, 92209-9, 69254-5, 62639-3 #### [facility] ([id number]) [address] [address] CBC AND AUTO DIFFon 10-01-19 24 ABSOLUTE BASOPHIL 0.1 X10E9/L Normal 0.0-0.2 [facility] Comment on above: Performed By: #### A CA, 5124-3, 61670-4, 55061-5, 34561-0 #### [facility] ([id number]) [address] [address] ABSOLUTE NEUTROPHIL 11.2 X10E9/L High 1.5-6.6 [facility] Comment on above: Performed By: #### A CA, 5124-3, 76533-2, 12880-3, 77851-1 #### [facility] ([id number]) [address] [address] Basophils/100 WBC (Bld) 0.6 % Normal [facility] Comment on above: Performed By: #### A CA, 5124-3, 78437-6, 79868-7, 49114-1 #### [facility] ([id number]) [address] [address] Eosinophils (Bld) [#/Vol] 0.1 10*3/uL Normal 0.0-0.4 [facility] Comment on above: Performed By: #### A PARUL, 5124-3, 52254-3, 29896-4, 06908-2 #### [facility] ([id number]) [address] [address] Eosinophils/100 WBC (Bld) 0.5 % Normal [facility] Comment on above: Performed By: #### A PARUL, 5124-3, 26353-1, 83753-1, 98429-5 #### [facility] ([id number]) [address] [address] Erythrocyte distribution width (RBC) [Ratio] 13.0 % Normal 11.5-15.0 [facility] Comment on above: Performed By: #### A PARUL, 5124-3, 03729-9, 91074-9, 19147-1 #### [facility] ([id number]) [address] [address] Hematocrit (Bld) [Volume fraction] 37.4 % Normal 35-47 [facility] Comment on above: Performed By: #### A PARUL, 5124-3, 29630-2, 38304-2, 85467-9 #### [facility] ([id number]) [address] [address] Hemoglobin (Bld) [Mass/Vol] 13.0 g/dL Normal 11.7-15.5 [facility] Comment on above: Performed By: #### A PARUL, 5124-3, 46392-8, 06546-9, 43435-6 #### [facility] ([id number]) [address] [address] Lymphocytes (Bld) [#/Vol] 3.4 10*3/uL Normal 1.0-3.5 [facility] Comment on above: Performed By: #### A PARUL, 5124-3, 53805-2, 96443-8, 98592-5 #### [facility] ([id number]) [address] [address] Lymphocytes/100 WBC (Bld) 21.5 % Normal [facility] Comment on above: Performed By: #### A CA, 5124-3, 71440-9, 68822-9, 72446-6 #### [facility] ([id number]) [address] [address] MCH (RBC) [Entitic mass] 30.8 pg Normal 27-34 [facility] Comment on above: Performed By: #### A CA, 5124-3, 26875-9, 97253-3, 77218-7 #### [facility] ([id number]) [address] [address] MCHC (RBC) [Mass/Vol] 34.9 g/dL Normal 32-36 [facility] Comment on above: Performed By: #### A CA, 5124-3, 22663-2, 53861-0, 40159-5 #### [facility] ([id number]) [address] [address] MCV (RBC) [Entitic vol] 88 fL Normal 80-100 [facility] Comment on above: Performed By: #### A CA, 5124-3, 35264-9, 72759-6, 48869-7 #### [facility] ([id number]) [address] [address] Monocytes (Bld) [#/Vol] 0.8 10*3/uL Normal 0-0.9 [facility] Comment on above: Performed By: #### A CA, 5124-3, 40299-9, 09456-3, 14578-0 #### [facility] ([id number]) [address] [place] [address] Monocytes/100 WBC (Bld) 5.2 % Normal [facility] Comment on above: Performed By: #### A CA, 5124-3, 16476-3, 29544-4, 31146-6 #### [facility] ([id number]) [address], [address] [place] [address] Neutrophils/100 WBC (Bld) 72.2 % Normal [facility] Comment on above: Performed By: #### A CA, 5124-3, 59986-6, 08016-0, 15535-4 #### [facility] ([id number]) [address], [address] [place] [address] Platelet mean volume (Bld) [Entitic vol] 8.0 fL Normal 7-12 [facility] Comment on above: Performed By: #### A PARUL, 5124-3, 37647-9, 78660-9, 35860-8 #### [facility] ([id number]) [address], [address] [place] [address] Platelets (Bld) [#/Vol] 354 10*3/uL Normal 150-450 [facility] Comment on above: Performed By: #### A CA, 5124-3, 48619-2, 57022-2, 83354-7 #### [facility] ([id number]) [address], [address] [place] [address] RBC COUNT 4.24 X10E12/L Normal 3.80-5.20 [facility] Comment on above: Performed By: #### A CA, 5124-3, 26278-3, 30228-6, 33362-4 #### [facility] ([id number]) [address], [address] [place] [address] WBC (Bld) [#/Vol] 15.6 10*3/uL High 4.0-11.0 [facility] Comment on above: Performed By: #### A CA, 5124-3, 91465-1, 41177-5, 94538-6 #### [facility] ([id number]) [address], [address] [place] [address] ABSOLUTE BASOPHIL 0.1 X10E9/L Normal 0.0-0.2 [facility] Comment on above: Performed By: #### A CA, 5124-3, 08035-2, 01843-0, 19160-7 #### [facility] ([id number]) [address], [address] [place] [address] ABSOLUTE NEUTROPHIL 11.9 X10E9/L High 1.5-6.6 [facility] Comment on above: Performed By: #### A CA, 5124-3, 05101-5, 89456-7, 97491-9 #### [facility] ([id number]) [address], [address] [place] [address] Basophils/100 WBC (Bld) 0.4 % Normal [facility] Comment on above: Performed By: #### A CA, 5124-3, 13912-7, 89475-8, 24493-7 #### [facility] ([id number]) [address], [address] [place] [address] Eosinophils (Bld) [#/Vol] 0.1 10*3/uL Normal 0.0-0.4 [facility] Comment on above: Performed By: #### A CA, 5124-3, 24656-1, 57588-8, 51125-4 #### [facility] ([id number]) [address], [address] [place] [address] Eosinophils/100 WBC (Bld) 0.5 % Normal [facility] Comment on above: Performed By: #### A CA, 5124-3, 32153-9, 17833-9, 53058-7 #### [facility] ([id number]) [address] [place] [address] Erythrocyte distribution width (RBC) [Ratio] 13.2 % Normal 11.5-15.0 [facility] Comment on above: Performed By: #### A CA, 5124-3, 14791-4, 75145-1, 42453-9 #### [facility] ([id number]) [address] [place] [address] Hematocrit (Bld) [Volume fraction] 38.3 % Normal 35-47 [facility] Comment on above: Performed By: #### A PARUL, 5124-3, 21512-4, 80999-1, 47862-9 #### [facility] ([id number]) [address] [place] [address] Hemoglobin (Bld) [Mass/Vol] 12.9 g/dL Normal 11.7-15.5 [facility] Comment on above: Performed By: #### A CA, 5124-3, 44115-1, 02984-7, 05039-0 #### [facility] ([id number]) [address] [address] Lymphocytes (Bld) [#/Vol] 3.8 10*3/uL High 1.0-3.5 [facility] Comment on above: Performed By: #### A CA, 5124-3, 00394-7, 15167-4, 53364-5 #### [facility] ([id number]) [address] [place] [address] Lymphocytes/100 WBC (Bld) 22.2 % Normal [facility] Comment on above: Performed By: #### A CA, 5124-3, 87651-2, 33616-0, 03524-5 #### [facility] ([id number]) [address] [place] [address] MCH (RBC) [Entitic mass] 30.4 pg Normal 27-34 [facility] Comment on above: Performed By: #### A CA, 5124-3, 16048-4, 82451-0, 17489-1 #### [facility] ([id number]) [address] [place] [address] MCHC (RBC) [Mass/Vol] 33.8 g/dL Normal 32-36 [facility] Comment on above: Performed By: #### A CA, 5124-3, 52385-0, 42724-9, 70499-0 #### [facility] ([id number]) [address], [facility] [address] [place] [address] MCV (RBC) [Entitic vol] 90 fL Normal 80-100 [facility] Comment on above: Performed By: #### A CA, 5124-3, 08672-0, 85366-8, 14365-0 #### [facility] ([id number]) [address], [address] [place] [address] Monocytes (Bld) [#/Vol] 1.1 10*3/uL High 0-0.9 [facility] Comment on above: Performed By: #### A CA, 5124-3, 05974-7, 01034-4, 31969-1 #### [facility] ([id number]) [address], [facility] [address] [place] [address] Monocytes/100 WBC (Bld) 6.5 % Normal [facility] Comment on above: Performed By: #### A CA, 5124-3, 04653-2, 77320-6, 51477-2 #### [facility] ([id number]) [address], [facility] [address] [place] [address] Neutrophils/100 WBC (Bld) 70.4 % Normal [facility] Comment on above: Performed By: #### A CA, 5124-3, 37355-5, 68375-1, 40079-0 #### [facility] ([id number]) [address], [address] [place] [address] Platelet mean volume (Bld) [Entitic vol] 8.2 fL Normal 7-12 [facility] Comment on above: Performed By: #### A CA, 5124-3, 44161-4, 00172-9, 85920-4 #### [facility] ([id number]) [address], [address] [place] [address] Platelets (Bld) [#/Vol] 336 10*3/uL Normal 150-450 [facility] Comment on above: Performed By: #### A CA, 5124-3, 10522-6, 27723-4, 28644-6 #### [facility] ([id number]) [address], [facility] [address] [place] [address] RBC COUNT 4.26 X10E12/L Normal 3.80-5.20 [facility] Comment on above: Performed By: #### A CA, 5124-3, 36899-9, 15650-8, 96194-5 #### [facility] ([id number]) [address], [address] [address] WBC (Bld) [#/Vol] 17.0 10*3/uL High 4.0-11.0 [facility] Comment on above: Performed By: #### A CA, 5124-3, 25493-4, 88928-8, 53470-6 #### [facility] ([id number]) [address], [address] [place] [address] ABSOLUTE BASOPHIL 0.0 X10E9/L Normal 0.0-0.2 [facility] Comment on above: Performed By: #### A CA, 5124-3, 34000-5, 60029-8, 71574-6 #### [facility] ([id number]) [address], [address] [place] [address] ABSOLUTE NEUTROPHIL 11.5 X10E9/L High 1.5-6.6 [facility] Comment on above: Performed By: #### A CA, 5124-3, 11117-8, 46940-5, 53597-6 #### [facility] ([id number]) [address], [address] [address] Basophils/100 WBC (Bld) 0.3 % Normal [facility] Comment on above: Performed By: #### A PARUL, 5124-3, 74666-8, 16081-6, 59537-4 #### [facility] ([id number]) [address], [address] [address] Eosinophils (Bld) [#/Vol] 0.0 10*3/uL Normal 0.0-0.4 [facility] Comment on above: Performed By: #### A PARUL, 5124-3, 25814-1, 35147-0, 60087-4 #### [facility] ([id number]) [address] [address] Eosinophils/100 WBC (Bld) 0.3 % Normal [facility] Comment on above: Performed By: #### A PARUL, 5124-3, 32599-4, 86326-7, 12741-1 #### [facility] ([id number]) [address], [address] [address] Erythrocyte distribution width (RBC) [Ratio] 13.2 % Normal 11.5-15.0 [facility] Comment on above: Performed By: #### A CA, 5124-3, 50815-6, 30301-3, 18058-5 #### [facility] ([id number]) [address] [place] [address] Hematocrit (Bld) [Volume fraction] 38.6 % Normal 35-47 [facility] Comment on above: Performed By: #### A CA, 5124-3, 83844-8, 53990-0, 86701-9 #### [facility] ([id number]) [address], [address] [place] [address] Hemoglobin (Bld) [Mass/Vol] 13.2 g/dL Normal 11.7-15.5 [facility] Comment on above: Performed By: #### A CA, 5124-3, 84750-7, 85095-2, 31254-2 #### [facility] ([id number]) [address], [facility] [address] [place] [address] Lymphocytes (Bld) [#/Vol] 4.2 10*3/uL High 1.0-3.5 [facility] Comment on above: Performed By: #### A CA, 5124-3, 48754-9, 01928-9, 42733-6 #### [facility] ([id number]) [address], [address] [place] [address] Lymphocytes/100 WBC (Bld) 24.8 % Normal [facility] Comment on above: Performed By: #### A CA, 5124-3, 72300-4, 53060-4, 96703-1 #### [facility] ([id number]) [address], [address] [place] [address] MCH (RBC) [Entitic mass] 30.3 pg Normal 27-34 [facility] Comment on above: Performed By: #### A CA, 5124-3, 65195-5, 07495-2, 21306-1 #### [facility] ([id number]) [address], [address] [place] [address] MCHC (RBC) [Mass/Vol] 34.2 g/dL Normal 32-36 [facility] Comment on above: Performed By: #### A CA, 5124-3, 90486-7, 36958-5, 62925-7 #### [facility] ([id number]) [address], [address] [place] [address] MCV (RBC) [Entitic vol] 89 fL Normal 80-100 [facility] Comment on above: Performed By: #### A CA, 5124-3, 64351-8, 21072-3, 62639-0 #### [facility] ([id number]) [address], [facility] [address] [place] [address] Monocytes (Bld) [#/Vol] 1.2 10*3/uL High 0-0.9 [facility] Comment on above: Performed By: #### A CA, 5124-3, 34156-0, 03952-4, 09712-4 #### [facility] ([id number]) [address], [address] [address] Monocytes/100 WBC (Bld) 7.2 % Normal [facility] Comment on above: Performed By: #### A CA, 5124-3, 21154-8, 74524-2, 38372-4 #### [facility] ([id number]) [address], [facility] [address] [place] [address] Neutrophils/100 WBC (Bld) 67.4 % Normal [facility] Comment on above: Performed By: #### A CA, 5124-3, 43584-9, 83514-7, 06398-4 #### [facility] ([id number]) [address], [address] [place] [address] Platelet mean volume (Bld) [Entitic vol] 8.3 fL Normal 7-12 [facility] Comment on above: Performed By: #### A CA, 5124-3, 59032-5, 51132-1, 44485-6 #### [facility] ([id number]) [address], [address] [place] [address] Platelets (Bld) [#/Vol] 345 10*3/uL Normal 150-450 [facility] Comment on above: Performed By: #### A CA, 5124-3, 92462-8, 57835-3, 50908-3 #### [facility] ([id number]) [address], [address] [place] [address] RBC COUNT 4.35 X10E12/L Normal 3.80-5.20 [facility] Comment on above: Performed By: #### A CA, 5124-3, 62086-2, 41831-2, 34362-3 #### [facility] ([id number]) [address], [address] [place] [address] WBC (Bld) [#/Vol] 17.1 10*3/uL High 4.0-11.0 [facility] Comment on above: Performed By: #### A CA, 5124-3, 69724-8, 27206-4, 88922-9 #### [facility] ([id number]) [address], [address] [place] [address] COMPREHENSIVE METABOLIC PANE Yasmani 10-01-2023 Albumin [Mass/Vol] 3.3 g/dL Normal 3.2-5.3 [facility] Comment on above: Performed By: #### A CA, 5124-3, 24489-7, 33165-8, 95146-3 #### [facility] ([id number]) [address], [address] [place] [address] ALP [Catalytic activity/Vol] 69 U/L Normal 39-130 [facility] Comment on above: Performed By: #### A CA, 5124-3, 43750-6, 43128-5, 08932-9 #### [facility] ([id number]) [address], [address] [place] [address] ALT [Catalytic activity/Vol] 10 U/L Normal 0-31 [facility] Comment on above: Performed By: #### A CA, 5124-3, 89472-4, 97650-0, 02523-2 #### [facility] ([id number]) [address], [address] [place] [address] Anion gap [Moles/Vol] 10 mmol/L Normal 5-15 [facility] Comment on above: Performed By: #### A CA, 5124-3, 15448-1, 85943-1, 52826-6 #### [facility] ([id number]) [address], [address] [place] [address] AST [Catalytic activity/Vol] 21 U/L Normal 0-41 [facility] Comment on above: Performed By: #### A CA, 5124-3, 62003-6, 18040-7, 66063-6 #### [facility] ([id number]) [address], [address] [place] [address] Bilirubin [Mass/Vol] 0.3 mg/dL Normal 0.3-1.2 [facility] Comment on above: Performed By: #### A CA, 5124-3, 82515-3, 20450-2, 98672-5 #### [facility] ([id number]) [address], [address] [place] [address] Calcium [Mass/Vol] 8.0 mg/dL Low 8.5-10.5 [facility] Comment on above: Performed By: #### A CA, 5124-3, 72682-6, 41134-7, 25945-5 #### [facility] ([id number]) [address], [address] [place] [address] Chloride [Moles/Vol] 102 mmol/L Normal 98-109 [facility] Comment on above: Performed By: #### A CA, 5124-3, 42338-3, 74971-9, 46505-3 #### [facility] ([id number]) [address] [address] CO2 [Moles/Vol] 21 mmol/L Low 22-32 [facility] Comment on above: Performed By: #### A PARUL, 5124-3, 83282-3, 86697-4, 12560-0 #### [facility] ([id number]) [address] [address] Creatinine [Mass/Vol] 0.64 mg/dL Normal 0.40-1.00 [facility] Comment on above: Result Comment: METH OD TRACEABLE TO IDMS STANDARD Performed By: #### A PARUL, 5124-3, 96989-5, 97002-8, 21728-6 #### [facility] ([id number]) [address] [address] eGFR (CKD-EPI) NON-RACE DEPENDENT >90 Normal >59 [facility] Comment on above: Result Comment: Reported eGFR is based on the CKD-EPI 2020 equation that does not use a race coefficient. Performed By: #### A PARUL, 5124-3, 25350-0, 05567-4, 42102-6 #### [facility] ([id number]) [address] [address] Glucose [Mass/Vol] 95 mg/dL Normal 65-99 [facility] Comment on above: Performed By: #### A CA, 5124-3, 85600-3, 28800-6, 92682-2 #### [facility] ([id number]) [address] [address] Potassium [Moles/Vol] 4.1 mmol/L Normal 3.5-5.0 [facility] Comment on above: Performed By: #### A CA, 5124-3, 66905-8, 93629-9, 17433-9 #### [facility] ([id number]) [address] [place] [address] Protein [Mass/Vol] 6.2 g/dL Normal 6.0-8.0 [facility] Comment on above: Performed By: #### A CA, 5124-3, 82360-9, 73801-5, 47776-4 #### [facility] ([id number]) [address], [facility] [address] [place] [address] Sodium [Moles/Vol] 133 mmol/L Low 134-146 [facility] Comment on above: Performed By: #### A CA, 5124-3, 28977-7, 17180-3, 24224-5 #### [facility] ([id number]) [address], [facility] [address] [place] [address] Urea nitrogen [Mass/Vol] 11 mg/dL Normal 5-23 [facility] Comment on above: Performed By: #### A CA, 5124-3, 46399-2, 27208-9, 04852-0 #### [facility] ([id number]) [address], [facility] [address] [place] [address] Albumin [Mass/Vol] 3.3 g/dL Normal 3.2-5.3 [facility] Comment on above: Performed By: #### A CA, 5124-3, 78171-7, 12726-0, 06031-9 #### [facility] ([id number]) [address], [facility] [address] [place] [address] ALP [Catalytic activity/Vol] 61 U/L Normal 39-130 [facility] Comment on above: Performed By: #### A CA, 5124-3, 62165-4, 44395-3, 52829-2 #### [facility] ([id number]) [address], [address] [place] [address] ALT [Catalytic activity/Vol] 12 U/L Normal 0-31 [facility] Comment on above: Performed By: #### A CA, 5124-3, 08737-0, 97454-9, 96970-8 #### [facility] ([id number]) [address], [address] [place] [address] Anion gap [Moles/Vol] 11 mmol/L Normal 5-15 [facility] Comment on above: Performed By: #### A CA, 5124-3, 87996-1, 88729-9, 80175-3 #### [facility] ([id number]) [address], [address] [place] [address] AST [Catalytic activity/Vol] 23 U/L Normal 0-41 [facility] Comment on above: Performed By: #### A CA, 5124-3, 49645-3, 07403-8, 18499-0 #### [facility] ([id number]) [address], [address] [place] [address] Bilirubin [Mass/Vol] 0.2 mg/dL Low 0.3-1.2 [facility] Comment on above: Performed By: #### A CA, 5124-3, 46515-6, 59867-8, 35494-3 #### [facility] ([id number]) [address], [address] [place] [address] Calcium [Mass/Vol] 8.4 mg/dL Low 8.5-10.5 [facility] Comment on above: Performed By: #### A CA, 5124-3, 36979-0, 43253-3, 42248-0 #### [facility] ([id number]) [address], [address] [place] [address] Chloride [Moles/Vol] 103 mmol/L Normal 98-109 [facility] Comment on above: Performed By: #### A CA, 5124-3, 44663-0, 88818-2, 26019-3 #### [facility] ([id number]) [address], [facility] [address] [place] [address] CO2 [Moles/Vol] 20 mmol/L Low 22-32 [facility] Comment on above: Performed By: #### A PARUL, 5124-3, 07712-6, 47453-2, 32531-9 #### [facility] ([id number]) [address] [place] [address] Creatinine [Mass/Vol] 0.57 mg/dL Normal 0.40-1.00 [facility] Comment on above: Result Comment: METH OD TRACEABLE TO IDMS STANDARD Performed By: #### A PARUL, 5124-3, 90383-5, 15639-9, 72349-2 #### [facility] ([id number]) [address] [address] eGFR (CKD-EPI) NON-RACE DEPENDENT >90 Normal >59 [facility] Comment on above: Result Comment: Reported eGFR is based on the CKD-EPI 2020 equation that does not use a race coefficient. Performed By: #### A PARUL, 5124-3, 07749-6, 12253-2, 63996-0 #### [facility] ([id number]) [address] [place] [address] Glucose [Mass/Vol] 77 mg/dL Normal 65-99 [facility] Comment on above: Performed By: #### A PARUL, 5124-3, 56716-3, 91665-8, 31994-6 #### [facility] ([id number]) [address] [place] [address] Potassium [Moles/Vol] 3.9 mmol/L Normal 3.5-5.0 [facility] Comment on above: Performed By: #### A PARUL, 5124-3, 89209-5, 90055-7, 81538-9 #### [facility] ([id number]) [address] [place] [address] Protein [Mass/Vol] 6.2 g/dL Normal 6.0-8.0 [facility] Comment on above: Performed By: #### A CA, 5124-3, 01243-5, 10671-5, 46308-3 #### [facility] ([id number]) [address], [facility] [address] [place] [address] Sodium [Moles/Vol] 134 mmol/L Normal 134-146 [facility] Comment on above: Performed By: #### A CA, 5124-3, 71810-3, 40950-2, 94612-5 #### [facility] ([id number]) [address], [facility] [address] [place] [address] Urea nitrogen [Mass/Vol] 12 mg/dL Normal 5-23 [facility] Comment on above: Performed By: #### A CA, 5124-3, 55214-3, 33374-9, 10996-9 #### [facility] ([id number]) [address], [address] [place] [address] Albumin [Mass/Vol] 3.4 g/dL Normal 3.2-5.3 [facility] Comment on above: Performed By: #### A CA, 5124-3, 51736-7, 57166-2, 04072-3 #### [facility] ([id number]) [address], [facility] [address] [place] [address] ALP [Catalytic activity/Vol] 64 U/L Normal 39-130 [facility] Comment on above: Performed By: #### A CA, 5124-3, 54972-8, 29349-1, 09192-9 #### [facility] ([id number]) [address], [facility] [address] [place] [address] ALT [Catalytic activity/Vol] 13 U/L Normal 0-31 [facility] Comment on above: Performed By: #### A CA, 5124-3, 46973-9, 71077-2, 03760-7 #### [facility] ([id number]) [address], [address] [place] [address] Anion gap [Moles/Vol] 12 mmol/L Normal 5-15 [facility] Comment on above: Performed By: #### A CA, 5124-3, 89390-3, 60432-9, 51706-1 #### [facility] ([id number]) [address], [address] [place] [address] AST [Catalytic activity/Vol] 22 U/L Normal 0-41 [facility] Comment on above: Performed By: #### A CA, 5124-3, 28740-3, 98634-1, 84472-2 #### [facility] ([id number]) [address], [address] [place] [address] Bilirubin [Mass/Vol] 0.2 mg/dL Low 0.3-1.2 [facility] Comment on above: Performed By: #### A CA, 5124-3, 92268-2, 48399-1, 06761-5 #### [facility] ([id number]) [address], [address] [place] [address] Calcium [Mass/Vol] 8.9 mg/dL Normal 8.5-10.5 [facility] Comment on above: Performed By: #### A CA, 5124-3, 36925-5, 36229-8, 59845-8 #### [facility] ([id number]) [address], [address] [place] [address] Chloride [Moles/Vol] 105 mmol/L Normal 98-109 [facility] Comment on above: Performed By: #### A CA, 5124-3, 15725-2, 07197-9, 38400-1 #### [facility] ([id number]) [address], [address] [place] [address] CO2 [Moles/Vol] 20 mmol/L Low 22-32 [facility] Comment on above: Performed By: #### A PARUL, 5124-3, 82296-7, 80833-8, 47845-2 #### [facility] ([id number]) [address], [facility] [address] [place] [address] Creatinine [Mass/Vol] 0.57 mg/dL Normal 0.40-1.00 [facility] Comment on above: Result Comment: METH OD TRACEABLE TO IDMS STANDARD Performed By: #### A PARUL, 5124-3, 49075-2, 60417-2, 50331-6 #### [facility] ([id number]) [address] [address] eGFR (CKD-EPI) NON-RACE DEPENDENT >90 Normal >59 [facility] Comment on above: Result Comment: Reported eGFR is based on the CKD-EPI 2020 equation that does not use a race coefficient. Performed By: #### A PARUL, 5124-3, 33249-2, 10174-1, 88074-3 #### [facility] ([id number]) [address], [address] [address] Glucose [Mass/Vol] 77 mg/dL Normal 65-99 [facility] Comment on above: Performed By: #### A PARUL, 5124-3, 77548-9, 72096-8, 46521-0 #### [facility] ([id number]) [address] [address] Potassium [Moles/Vol] 3.9 mmol/L Normal 3.5-5.0 [facility] Comment on above: Performed By: #### A CA, 5124-3, 13642-0, 57634-9, 46601-6 #### [facility] ([id number]) [address] [place] [address] Protein [Mass/Vol] 6.3 g/dL Normal 6.0-8.0 [facility] Comment on above: Performed By: #### A CA, 5124-3, 05657-4, 22652-4, 31094-2 #### [facility] ([id number]) [address] [place] [address] Sodium [Moles/Vol] 137 mmol/L Normal 134-146 [facility] Comment on above: Performed By: #### A CA, 5124-3, 93905-0, 73467-4, 28890-4 #### [facility] ([id number]) [address], [address] [address] Urea nitrogen [Mass/Vol] 15 mg/dL Normal 5-23 [facility] Comment on above: Performed By: #### A CA, 5124-3, 84173-3, 16761-9, 55947-3 #### [facility] ([id number]) [address], [address] [address] LDH [Catalytic activity/Vol] on 10-01-2023 LDH 164 U/L Normal 100-235 [facility] Comment on above: Performed By: #### A CA, 5124-3, 65339-9, 09033-8, 52325-1 #### [facility] ([id number]) [address], [address] [address] URIC ACIDon 10-01-2023 Urate [Mass/Vol] 6.3 mg/dL Normal 2.6-7.2 [facility] Comment on above: Performed By: #### A CA, 5124-3, 83605-3, 48751-0, 48672-4 #### [facility] ([id number]) [address] [address] CBC AND AUTO DIFFon 09-30-19 ABSOLUTE BASOPHIL 0.0 X10E9/L Normal 0.0-0.2 [facility] Comment on above: Performed By: #### A CA, 5124-3, 16177-4, 59837-2, 06453-6 #### [facility] ([id number]) [address], [address] [place] [address] ABSOLUTE NEUTROPHIL 7.9 X10E9/L High 1.5-6.6 [facility] Comment on above: Performed By: #### A CA, 5124-3, 27047-0, 32130-8, 58772-6 #### [facility] ([id number]) [address], [facility] [address] [place] [address] Basophils/100 WBC (Bld) 0.2 % Normal [facility] Comment on above: Performed By: #### A PARUL, 5124-3, 45125-0, 73945-8, 29718-7 #### [facility] ([id number]) [address], [address] [place] [address] Eosinophils (Bld) [#/Vol] 0.0 10*3/uL Normal 0.0-0.4 [facility] Comment on above: Performed By: #### A PARUL, 5124-3, 75347-3, 61399-0, 40017-4 #### [facility] ([id number]) [address], [facility] [address] [place] [address] Eosinophils/100 WBC (Bld) 0.2 % Normal [facility] Comment on above: Performed By: #### A CA, 5124-3, 22616-5, 25855-1, 72577-6 #### [facility] ([id number]) [address], [facility] [address] [place] [address] Erythrocyte distribution width (RBC) [Ratio] 13.1 % Normal 11.5-15.0 [facility] Comment on above: Performed By: #### A PARUL, 5124-3, 73112-0, 95511-4, 32035-2 #### [facility] ([id number]) [address], [address] [place] [address] Hematocrit (Bld) [Volume fraction] 37.6 % Normal 35-47 [facility] Comment on above: Performed By: #### A PARUL, 5124-3, 88614-2, 81704-7, 44876-0 #### [facility] ([id number]) [address], [facility] [address] [place] [address] Hemoglobin (Bld) [Mass/Vol] 12.6 g/dL Normal 11.7-15.5 [facility] Comment on above: Performed By: #### A PARUL, 5124-3, 54465-5, 93605-7, 71991-7 #### [facility] ([id number]) [address] [address] [place] [address] Lymphocytes (Bld) [#/Vol] 3.4 10*3/uL Normal 1.0-3.5 [facility] Comment on above: Performed By: #### A PARUL, 5124-3, 66369-9, 80902-7, 00054-8 #### [facility] ([id number]) [address] [address] Lymphocytes/100 WBC (Bld) 27.5 % Normal [facility] Comment on above: Performed By: #### A PARUL, 5124-3, 25286-8, 68978-1, 08375-3 #### [facility] ([id number]) [address] [address] [place] [address] MCH (RBC) [Entitic mass] 30.2 pg Normal 27-34 [facility] Comment on above: Performed By: #### A CA, 5124-3, 08842-2, 78881-3, 79859-7 #### [facility] ([id number]) [address], [address] [place] [address] MCHC (RBC) [Mass/Vol] 33.4 g/dL Normal 32-36 [facility] Comment on above: Performed By: #### A CA, 5124-3, 51505-4, 47270-1, 66370-7 #### [facility] ([id number]) [address], [facility] [address] [place] [address] MCV (RBC) [Entitic vol] 90 fL Normal 80-100 [facility] Comment on above: Performed By: #### A CA, 5124-3, 36973-0, 80050-1, 25435-2 #### [facility] ([id number]) [address], [address] [address] Monocytes (Bld) [#/Vol] 1.1 10*3/uL High 0-0.9 [facility] Comment on above: Performed By: #### A CA, 5124-3, 74080-0, 11127-7, 70953-2 #### [facility] ([id number]) [address], [address] [address] Monocytes/100 WBC (Bld) 8.4 % Normal [facility] Comment on above: Performed By: #### A CA, 5124-3, 78887-6, 10009-6, 00850-3 #### [facility] ([id number]) [address], [address] [address] Neutrophils/100 WBC (Bld) 63.7 % Normal [facility] Comment on above: Performed By: #### A CA, 5124-3, 66872-5, 13616-9, 34650-2 #### [facility] ([id number]) [address], [address] [place] [address] Platelet mean volume (Bld) [Entitic vol] 8.3 fL Normal 7-12 [facility] Comment on above: Performed By: #### A CA, 5124-3, 02983-6, 56891-7, 63399-0 #### [facility] ([id number]) [address], [address] [place] [address] Platelets (Bld) [#/Vol] 319 10*3/uL Normal 150-450 [facility] Comment on above: Performed By: #### A CA, 5124-3, 82740-9, 58443-1, 50418-1 #### [facility] ([id number]) [address], [address] [place] [address] RBC COUNT 4.16 X10E12/L Normal 3.80-5.20 [facility] Comment on above: Performed By: #### A CA, 5124-3, 62992-6, 98717-1, 16712-9 #### [facility] ([id number]) [address], [address] [place] [address] WBC (Bld) [#/Vol] 12.5 10*3/uL High 4.0-11.0 [facility] Comment on above: Performed By: #### A CA, 5124-3, 30213-3, 24966-2, 86125-0 #### [facility] ([id number]) [address], [address] [place] [address] COMPREHENSIVE METABOLIC PANE Yasmani 09-30-2023 Albumin [Mass/Vol] 3.2 g/dL Normal 3.2-5.3 [facility] Comment on above: Performed By: #### A CA, 5124-3, 31984-7, 29435-8, 48985-0 #### [facility] ([id number]) [address], [address] [place] [address] ALP [Catalytic activity/Vol] 57 U/L Normal 39-130 [facility] Comment on above: Performed By: #### A CA, 5124-3, 80595-1, 65267-4, 22283-2 #### [facility] ([id number]) [address], [address] [place] [address] ALT [Catalytic activity/Vol] 12 U/L Normal 0-31 [facility] Comment on above: Performed By: #### A CA, 5124-3, 73361-6, 65109-2, 22669-9 #### [facility] ([id number]) [address], [address] [place] [address] Anion gap [Moles/Vol] 13 mmol/L Normal 5-15 [facility] Comment on above: Performed By: #### A CA, 5124-3, 74294-9, 09531-9, 03542-7 #### [facility] ([id number]) [address], [address] [place] [address] AST [Catalytic activity/Vol] 19 U/L Normal 0-41 [facility] Comment on above: Performed By: #### A CA, 5124-3, 32586-2, 09427-1, 88789-0 #### [facility] ([id number]) [address], [address] [place] [address] Bilirubin [Mass/Vol] 0.2 mg/dL Low 0.3-1.2 [facility] Comment on above: Performed By: #### A CA, 5124-3, 22553-1, 94603-5, 54008-5 #### [facility] ([id number]) [address], [address] [place] [address] Calcium [Mass/Vol] 8.9 mg/dL Normal 8.5-10.5 [facility] Comment on above: Performed By: #### A CA, 5124-3, 13573-0, 56309-8, 55062-2 #### [facility] ([id number]) [address], [address] [place] [address] Chloride [Moles/Vol] 105 mmol/L Normal 98-109 [facility] Comment on above: Performed By: #### A CA, 5124-3, 95476-7, 04330-6, 92657-5 #### [facility] ([id number]) [address], [address] [place] [address] CO2 [Moles/Vol] 21 mmol/L Low 22-32 [facility] Comment on above: Performed By: #### A CA, 5124-3, 70206-5, 60840-3, 30049-0 #### [facility] ([id number]) [address], [facility] [address] [place] [address] Creatinine [Mass/Vol] 0.64 mg/dL Normal 0.40-1.00 [facility] Comment on above: Result Comment: METH OD TRACEABLE TO IDMS STANDARD Performed By: #### A PARUL, 5124-3, 09040-3, 49096-7, 50006-8 #### [facility] ([id number]) [address], [address] [place] [address] eGFR (CKD-EPI) NON-RACE DEPENDENT >90 Normal >59 [facility] Comment on above: Result Comment: Reported eGFR is based on the CKD-EPI 2020 equation that does not use a race coefficient. Performed By: #### A CA, 5124-3, 06901-5, 09136-4, 09328-4 #### [facility] ([id number]) [address], [address] [place] [address] Glucose [Mass/Vol] 74 mg/dL Normal 65-99 [facility] Comment on above: Performed By: #### A CA, 5124-3, 15191-1, 90992-2, 48732-4 #### [facility] ([id number]) [address], [address] [place] [address] Potassium [Moles/Vol] 3.9 mmol/L Normal 3.5-5.0 [facility] Comment on above: Performed By: #### A CA, 5124-3, 35357-5, 22993-3, 18830-2 #### [facility] ([id number]) [address], [facility] [address] [place] [address] Protein [Mass/Vol] 6.0 g/dL Normal 6.0-8.0 [facility] Comment on above: Performed By: #### A CA, 5124-3, 65281-5, 57919-1, 42817-1 #### [facility] ([id number]) [address], [facility] [address] [place] [address] Sodium [Moles/Vol] 139 mmol/L Normal 134-146 [facility] Comment on above: Performed By: #### A CA, 5124-3, 39739-6, 69379-6, 64462-9 #### [facility] ([id number]) [address], [facility] [address] [place] [address] Urea nitrogen [Mass/Vol] 19 mg/dL Normal 5-23 [facility] Comment on above: Performed By: #### A CA, 5124-3, 08759-3, 31443-4, 42859-1 #### [facility] ([id number]) [address], [facility] [address] [place] [address] CBC AND AUTO DIFFon 09-29-19 24 ABSOLUTE BASOPHIL 0.0 X10E9/L Normal 0.0-0.2 [facility] Comment on above: Performed By: #### A CA, 5124-3, 28944-2, 77556-6, 63472-6 #### [facility] ([id number]) [address] [address] ABSOLUTE NEUTROPHIL 12.0 X10E9/L High 1.5-6.6 [facility] Comment on above: Performed By: #### A CA, 5124-3, 82401-8, 14405-5, 00739-2 #### [facility] ([id number]) [address] [address] [place] [address] Basophils/100 WBC (Bld) 0.2 % Normal [facility] Comment on above: Performed By: #### A CA, 5124-3, 24861-3, 31785-2, 49514-1 #### [facility] ([id number]) [address] [address] Eosinophils (Bld) [#/Vol] 0.0 10*3/uL Normal 0.0-0.4 [facility] Comment on above: Performed By: #### A PARUL, 5124-3, 98093-0, 47360-8, 10123-0 #### [facility] ([id number]) [address] [address] Eosinophils/100 WBC (Bld) 0.0 % Normal [facility] Comment on above: Performed By: #### A CA, 5124-3, 45976-5, 63679-4, 71295-9 #### [facility] ([id number]) [address] [address] [place] [address] Erythrocyte distribution width (RBC) [Ratio] 13.4 % Normal 11.5-15.0 [facility] Comment on above: Performed By: #### A PARUL, 5124-3, 01546-0, 99586-2, 67678-4 #### [facility] ([id number]) [address] [address] [place] [address] Hematocrit (Bld) [Volume fraction] 36.3 % Normal 35-47 [facility] Comment on above: Performed By: #### A CA, 5124-3, 81767-8, 61724-1, 35416-9 #### [facility] ([id number]) [address], [facility] [address] [place] [address] Hemoglobin (Bld) [Mass/Vol] 12.5 g/dL Normal 11.7-15.5 [facility] Comment on above: Performed By: #### A CA, 5124-3, 35189-3, 85376-3, 94340-4 #### [facility] ([id number]) [address], [address] [place] [address] Lymphocytes (Bld) [#/Vol] 1.9 10*3/uL Normal 1.0-3.5 [facility] Comment on above: Performed By: #### A CA, 5124-3, 40044-9, 75677-2, 77017-5 #### [facility] ([id number]) [address], [facility] [address] [place] [address] Lymphocytes/100 WBC (Bld) 12.8 % Normal [facility] Comment on above: Performed By: #### A PARUL, 5124-3, 90683-4, 51293-4, 28245-6 #### [facility] ([id number]) [address], [facility] [address] [place] [address] MCH (RBC) [Entitic mass] 31.0 pg Normal 27-34 [facility] Comment on above: Performed By: #### A PARUL, 5124-3, 53225-7, 07268-9, 30006-9 #### [facility] ([id number]) [address], [address] [place] [address] MCHC (RBC) [Mass/Vol] 34.3 g/dL Normal 32-36 [facility] Comment on above: Performed By: #### A CA, 5124-3, 81672-8, 16107-6, 54930-6 #### [facility] ([id number]) [address], [facility] [address] [place] [address] MCV (RBC) [Entitic vol] 90 fL Normal 80-100 [facility] Comment on above: Performed By: #### A PARUL, 5124-3, 02796-3, 57155-7, 94870-6 #### [facility] ([id number]) [address], [facility] [address] [place] [address] Monocytes (Bld) [#/Vol] 0.9 10*3/uL Normal 0-0.9 [facility] Comment on above: Performed By: #### A CA, 5124-3, 65699-6, 33375-5, 78475-0 #### [facility] ([id number]) [address], [address] [address] Monocytes/100 WBC (Bld) 6.2 % Normal [facility] Comment on above: Performed By: #### A CA, 5124-3, 70039-5, 05680-8, 98641-4 #### [facility] ([id number]) [address], [address] [address] Neutrophils/100 WBC (Bld) 80.8 % Normal [facility] Comment on above: Performed By: #### A CA, 5124-3, 27858-4, 13027-8, 93335-3 #### [facility] ([id number]) [address], [address] [address] Platelet mean volume (Bld) [Entitic vol] 8.4 fL Normal 7-12 [facility] Comment on above: Performed By: #### A CA, 5124-3, 92668-2, 37338-7, 40888-0 #### [facility] ([id number]) [address], [facility] [address] [place] [address] Platelets (Bld) [#/Vol] 337 10*3/uL Normal 150-450 [facility] Comment on above: Performed By: #### A CA, 5124-3, 07522-0, 04557-2, 02564-5 #### [facility] ([id number]) [address], [facility] [address] [place] [address] RBC COUNT 4.02 X10E12/L Normal 3.80-5.20 [facility] Comment on above: Performed By: #### A CA, 5124-3, 11527-7, 32586-0, 16063-1 #### [facility] ([id number]) [address] [address] WBC (Bld) [#/Vol] 14.9 10*3/uL High 4.0-11.0 [facility] Comment on above: Performed By: #### A CA, 5124-3, 34006-7, 94300-3, 21178-7 #### [facility] ([id number]) [address] [address] COMPREHENSIVE METABOLIC PANE Yasmani 09-29-2023 Albumin [Mass/Vol] 3.4 g/dL Normal 3.2-5.3 [facility] Comment on above: Performed By: #### A CA, 5124-3, 78891-9, 85828-7, 26143-9 #### [facility] ([id number]) [address] [address] ALP [Catalytic activity/Vol] 67 U/L Normal 39-130 [facility] Comment on above: Performed By: #### A CA, 5124-3, 14043-2, 95691-4, 72937-5 #### [facility] ([id number]) [address] [address] ALT [Catalytic activity/Vol] 15 U/L Normal 0-31 [facility] Comment on above: Performed By: #### A CA, 5124-3, 04593-6, 00240-3, 84699-4 #### [facility] ([id number]) [address] [address] Anion gap [Moles/Vol] 9 mmol/L Normal 5-15 [facility] Comment on above: Performed By: #### A CA, 5124-3, 55578-4, 12437-7, 68368-6 #### [facility] ([id number]) [address], [address] [place] [address] AST [Catalytic activity/Vol] 20 U/L Normal 0-41 [facility] Comment on above: Performed By: #### A CA, 5124-3, 76760-4, 97312-6, 30686-0 #### [facility] ([id number]) [address], [facility] [address] [place] [address] Bilirubin [Mass/Vol] 0.2 mg/dL Low 0.3-1.2 [facility] Comment on above: Performed By: #### A CA, 5124-3, 09390-6, 95980-1, 45550-7 #### [facility] ([id number]) [address], [address] [place] [address] Calcium [Mass/Vol] 8.9 mg/dL Normal 8.5-10.5 [facility] Comment on above: Performed By: #### A CA, 5124-3, 13321-3, 87207-2, 65171-1 #### [facility] ([id number]) [address], [address] [place] [address] Chloride [Moles/Vol] 106 mmol/L Normal 98-109 [facility] Comment on above: Performed By: #### A CA, 5124-3, 76138-6, 83454-4, 09162-0 #### [facility] ([id number]) [address], [address] [place] [address] CO2 [Moles/Vol] 21 mmol/L Low 22-32 [facility] Comment on above: Performed By: #### A CA, 5124-3, 56534-7, 61149-6, 95603-0 #### [facility] ([id number]) [address], [facility] [address] [place] [address] Creatinine [Mass/Vol] 0.63 mg/dL Normal 0.40-1.00 [facility] Comment on above: Result Comment: METH OD TRACEABLE TO IDMS STANDARD Performed By: #### A CA, 5124-3, 86922-1, 27180-7, 13164-7 #### [facility] ([id number]) [address], [address] [place] [address] eGFR (CKD-EPI) NON-RACE DEPENDENT >90 Normal >59 [facility] Comment on above: Result Comment: Reported eGFR is based on the CKD-EPI 2020 equation that does not use a race coefficient. Performed By: #### A CA, 5124-3, 02020-4, 18014-0, 15554-4 #### [facility] ([id number]) [address], [address] [place] [address] Glucose [Mass/Vol] 101 mg/dL High 65-99 [facility] Comment on above: Performed By: #### A CA, 5124-3, 44082-3, 92265-6, 88581-2 #### [facility] ([id number]) [address] [address] Potassium [Moles/Vol] 4.2 mmol/L Normal 3.5-5.0 [facility] Comment on above: Performed By: #### A CA, 5124-3, 94282-4, 57723-8, 76170-7 #### [facility] ([id number]) [address] [address] Protein [Mass/Vol] 6.3 g/dL Normal 6.0-8.0 [facility] Comment on above: Performed By: #### A CA, 5124-3, 45247-2, 30125-2, 84708-2 #### [facility] ([id number]) [address], [address] [place] [address] Sodium [Moles/Vol] 136 mmol/L Normal 134-146 [facility] Comment on above: Performed By: #### A CA, 5124-3, 04001-8, 07894-1, 30432-9 #### [facility] ([id number]) [address], [address] [place] [address] Urea nitrogen [Mass/Vol] 17 mg/dL Normal 5-23 [facility] Comment on above: Performed By: #### A PARUL, 5124-3, 68388-6, 31149-7, 54468-0 #### [facility] ([id number]) [address], [address] [address] Glucose Glucometer (BldC) [M ass/Vol]on 09-29-2023 Glucose [Mass/Vol] 89 mg/dL Normal 65-99 [facility] 24 HR URINE TOTAL PROTEINon 09-28-2023 URINE TOTAL PROTEIN 949 mg/24h High 0-150 [facility] Comment on above: Performed By: #### A PARUL, 5124-3, 11348-5, 97027-7, 88679-8 #### [facility] ([id number]) [address], [address] [address] CBC AND AUTO DIFFon 09-28-19 24 ABSOLUTE BASOPHIL 0.0 X10E9/L Normal 0.0-0.2 [facility] Comment on above: Performed By: #### A CA, 5124-3, 91297-8, 79243-0, 39871-6 #### [facility] ([id number]) [address] [address] [place] [address] ABSOLUTE NEUTROPHIL 11.5 X10E9/L High 1.5-6.6 [facility] Comment on above: Performed By: #### A CA, 5124-3, 84204-0, 93954-2, 43903-1 #### [facility] ([id number]) [address] [address] Basophils/100 WBC (Bld) 0.1 % Normal [facility] Comment on above: Performed By: #### A CA, 5124-3, 26193-5, 02116-9, 56970-7 #### [facility] ([id number]) [address] [address] Eosinophils (Bld) [#/Vol] 0.0 10*3/uL Normal 0.0-0.4 [facility] Comment on above: Performed By: #### A PARUL, 5124-3, 46744-4, 17450-8, 19005-9 #### [facility] ([id number]) [address] [address] Eosinophils/100 WBC (Bld) 0.0 % Normal [facility] Comment on above: Performed By: #### A PARUL, 5124-3, 13961-1, 95146-8, 53321-3 #### [facility] ([id number]) [address] [address] Erythrocyte distribution width (RBC) [Ratio] 13.5 % Normal 11.5-15.0 [facility] Comment on above: Performed By: #### A PARUL, 5124-3, 29344-6, 06178-8, 58916-9 #### [facility] ([id number]) [address] [address] Hematocrit (Bld) [Volume fraction] 36.1 % Normal 35-47 [facility] Comment on above: Performed By: #### A CA, 5124-3, 23145-5, 91567-8, 91547-3 #### [facility] ([id number]) [address] [address] Hemoglobin (Bld) [Mass/Vol] 12.2 g/dL Normal 11.7-15.5 [facility] Comment on above: Performed By: #### A PARUL, 5124-3, 44405-9, 13046-1, 23178-4 #### [facility] ([id number]) [address], [address] [address] Lymphocytes (Bld) [#/Vol] 1.3 10*3/uL Normal 1.0-3.5 [facility] Comment on above: Performed By: #### A PARUL, 5124-3, 61163-9, 37758-7, 74847-6 #### [facility] ([id number]) [address], [address] [address] Lymphocytes/100 WBC (Bld) 9.4 % Normal [facility] Comment on above: Performed By: #### A PARUL, 5124-3, 51124-0, 51988-2, 32915-4 #### [facility] ([id number]) [address], [address] [address] MCH (RBC) [Entitic mass] 30.4 pg Normal 27-34 [facility] Comment on above: Performed By: #### A PARUL, 5124-3, 72454-8, 56661-6, 17965-7 #### [facility] ([id number]) [address], [address] [address] MCHC (RBC) [Mass/Vol] 33.7 g/dL Normal 32-36 [facility] Comment on above: Performed By: #### A PARUL, 5124-3, 24835-4, 84219-5, 12459-1 #### [facility] ([id number]) [address], [facility] [address] [place] [address] MCV (RBC) [Entitic vol] 90 fL Normal 80-100 [facility] Comment on above: Performed By: #### A CA, 5124-3, 63055-9, 49770-4, 98652-6 #### [facility] ([id number]) [address], [address] [place] [address] Monocytes (Bld) [#/Vol] 0.8 10*3/uL Normal 0-0.9 [facility] Comment on above: Performed By: #### A CA, 5124-3, 19525-7, 80154-5, 48601-3 #### [facility] ([id number]) [address], [facility] [address] [place] [address] Monocytes/100 WBC (Bld) 5.6 % Normal [facility] Comment on above: Performed By: #### A CA, 5124-3, 92442-1, 86026-8, 15860-7 #### [facility] ([id number]) [address], [facility] [address] [place] [address] Neutrophils/100 WBC (Bld) 84.9 % Normal [facility] Comment on above: Performed By: #### A CA, 5124-3, 25120-5, 45085-2, 29757-9 #### [facility] ([id number]) [address], [address] [place] [address] Platelet mean volume (Bld) [Entitic vol] 8.5 fL Normal 7-12 [facility] Comment on above: Performed By: #### A CA, 5124-3, 88591-3, 17647-9, 01489-4 #### [facility] ([id number]) [address], [address] [place] [address] Platelets (Bld) [#/Vol] 311 10*3/uL Normal 150-450 [facility] Comment on above: Performed By: #### A CA, 5124-3, 52839-7, 10523-0, 73347-9 #### [facility] ([id number]) [address], [address] [place] [address] RBC COUNT 4.00 X10E12/L Normal 3.80-5.20 [facility] Comment on above: Performed By: #### A CA, 5124-3, 97492-5, 96481-0, 28728-4 #### [facility] ([id number]) [address], [address] [place] [address] WBC (Bld) [#/Vol] 13.6 10*3/uL High 4.0-11.0 [facility] Comment on above: Performed By: #### A CA, 5124-3, 15151-4, 04474-4, 26285-4 #### [facility] ([id number]) [address], [address] [place] [address] COMPREHENSIVE METABOLIC PANE Yasmani 09-28-2023 Albumin [Mass/Vol] 3.4 g/dL Normal 3.2-5.3 [facility] Comment on above: Performed By: #### A CA, 5124-3, 11645-1, 62541-2, 52379-3 #### [facility] ([id number]) [address], [address] [place] [address] ALP [Catalytic activity/Vol] 64 U/L Normal 39-130 [facility] Comment on above: Performed By: #### A CA, 5124-3, 95615-5, 92182-6, 99529-4 #### [facility] ([id number]) [address], [address] [place] [address] ALT [Catalytic activity/Vol] 15 U/L Normal 0-31 [facility] Comment on above: Performed By: #### A CA, 5124-3, 51822-1, 66635-5, 39948-4 #### [facility] ([id number]) [address], [address] [place] [address] Anion gap [Moles/Vol] 11 mmol/L Normal 5-15 [facility] Comment on above: Performed By: #### A CA, 5124-3, 96956-4, 13700-2, 33071-0 #### [facility] ([id number]) [address], [address] [place] [address] AST [Catalytic activity/Vol] 23 U/L Normal 0-41 [facility] Comment on above: Performed By: #### A CA, 5124-3, 97120-8, 51423-1, 08926-3 #### [facility] ([id number]) [address], [facility] [address] [place] [address] Bilirubin [Mass/Vol] 0.3 mg/dL Normal 0.3-1.2 [facility] Comment on above: Performed By: #### A CA, 5124-3, 03951-7, 14432-8, 27817-1 #### [facility] ([id number]) [address], [address] [place] [address] Calcium [Mass/Vol] 8.2 mg/dL Low 8.5-10.5 [facility] Comment on above: Performed By: #### A CA, 5124-3, 35759-2, 10303-3, 21927-4 #### [facility] ([id number]) [address], [address] [place] [address] Chloride [Moles/Vol] 103 mmol/L Normal 98-109 [facility] Comment on above: Performed By: #### A CA, 5124-3, 22031-3, 20482-2, 14256-2 #### [facility] ([id number]) [address], [address] [place] [address] CO2 [Moles/Vol] 20 mmol/L Low 22-32 [facility] Comment on above: Performed By: #### A CA, 5124-3, 53455-5, 25209-5, 48953-9 #### [facility] ([id number]) [address] [address] Creatinine [Mass/Vol] 0.70 mg/dL Normal 0.40-1.00 [facility] Comment on above: Result Comment: METH OD TRACEABLE TO IDMS STANDARD Performed By: #### A CA, 5124-3, 90749-3, 89742-4, 21456-3 #### [facility] ([id number]) [address], [address] [address] eGFR (CKD-EPI) NON-RACE DEPENDENT >90 Normal >59 [facility] Comment on above: Result Comment: Reported eGFR is based on the CKD-EPI 2020 equation that does not use a race coefficient. Performed By: #### A CA, 5124-3, 14754-7, 60396-2, 18912-3 #### [facility] ([id number]) [address] [address] Glucose [Mass/Vol] 101 mg/dL High 65-99 [facility] Comment on above: Performed By: #### A CA, 5124-3, 55293-1, 23774-9, 89181-9 #### [facility] ([id number]) [address] [address] Potassium [Moles/Vol] 4.0 mmol/L Normal 3.5-5.0 [facility] Comment on above: Performed By: #### A CA, 5124-3, 26859-7, 84195-2, 21109-6 #### [facility] ([id number]) [address] [address] Protein [Mass/Vol] 6.4 g/dL Normal 6.0-8.0 [facility] Comment on above: Performed By: #### A CA, 5124-3, 57829-8, 32380-5, 28435-7 #### [facility] ([id number]) [address], [address] [place] [address] Sodium [Moles/Vol] 134 mmol/L Normal 134-146 [facility] Comment on above: Performed By: #### A PARUL, 5124-3, 04461-0, 03336-7, 56722-3 #### [facility] ([id number]) [address], [address] [place] [address] Urea nitrogen [Mass/Vol] 10 mg/dL Normal 5-23 [facility] Comment on above: Performed By: #### A PARUL, 5124-3, 54777-5, 57714-7, 32578-7 #### [facility] ([id number]) [address], [address] [place] [address] Glucose Glucometer (BldC) [M ass/Vol]on 09-28-2023 Glucose [Mass/Vol] 117 mg/dL High 65-99 [facility] Glucose [Mass/Vol] 139 mg/dL High 65-99 [facility] Glucose [Mass/Vol] 122 mg/dL High 65-99 [facility] Glucose [Mass/Vol] 105 mg/dL High 65-99 [facility] Glucose [Mass/Vol] 107 mg/dL High 65-99 [facility] Glucose [Mass/Vol] 114 mg/dL High 65-99 [facility] Outside Recordson 09-28-2023 Outside Records [id number] [facility] URINE VOLUME AND TIMEon 09-10 TIME 24 h Normal [facility] Comment on above: Performed By: #### A PARUL, 5124-3, 38966-5, 57975-3, 06199-0 #### [facility] ([id number]) [address], [address] [place] [address] TOTAL VOLUME 1860 mL Normal [facility] Comment on above: Performed By: #### A CA, 5124-3, 44102-8, 48813-6, 54047-1 #### [facility] ([id number]) [address], [address] [address] COMPLETE BLOOD COUNTon 09-26 Erythrocyte distribution width (RBC) [Ratio] 13.1 % Normal 11.5-15.0 [facility] Comment on above: Performed By: #### A CA, 5124-3, 89533-2, 93121-1, 49316-1 #### [facility] ([id number]) [address], [address] [address] Hematocrit (Bld) [Volume fraction] 38.6 % Normal 35-47 [facility] Comment on above: Performed By: #### A CA, 5124-3, 51115-6, 63138-0, 17182-7 #### [facility] ([id number]) [address], [facility] [address] [place] [address] Hemoglobin (Bld) [Mass/Vol] 13.2 g/dL Normal 11.7-15.5 [facility] Comment on above: Performed By: #### A CA, 5124-3, 92271-6, 72869-2, 36837-0 #### [facility] ([id number]) [address], [address] [address] MCH (RBC) [Entitic mass] 30.7 pg Normal 27-34 [facility] Comment on above: Performed By: #### A CA, 5124-3, 19496-4, 07041-6, 38892-8 #### [facility] ([id number]) [address] [address] MCHC (RBC) [Mass/Vol] 34.1 g/dL Normal 32-36 [facility] Comment on above: Performed By: #### A CA, 5124-3, 97145-8, 49171-4, 64735-5 #### [facility] ([id number]) [address], [facility] [address] [place] [address] MCV (RBC) [Entitic vol] 90 fL Normal 80-100 [facility] Comment on above: Performed By: #### A CA, 5124-3, 18832-4, 88613-8, 57664-5 #### [facility] ([id number]) [address], [address] [address] Platelet mean volume (Bld) [Entitic vol] 8.5 fL Normal 7-12 [facility] Comment on above: Performed By: #### A CA, 5124-3, 31488-6, 53094-7, 98830-7 #### [facility] ([id number]) [address] [address] Platelets (Bld) [#/Vol] 347 10*3/uL Normal 150-450 [facility] Comment on above: Performed By: #### A CA, 5124-3, 34724-8, 74002-4, 30655-1 #### [facility] ([id number]) [address] [address] RBC COUNT 4.29 X10E12/L Normal 3.80-5.20 [facility] Comment on above: Performed By: #### A CA, 5124-3, 61792-4, 13256-6, 19595-3 #### [facility] ([id number]) [address] [address] [place] [address] WBC (Bld) [#/Vol] 20.6 10*3/uL High 4.0-11.0 [facility] Comment on above: Performed By: #### A CA, 5124-3, 39385-3, 44343-8, 28117-1 #### [facility] ([id number]) [address], [address] [place] [address] COMPREHENSIVE METABOLIC PANE Yasmani 09-27-2023 Albumin [Mass/Vol] 3.6 g/dL Normal 3.2-5.3 [facility] Comment on above: Performed By: #### C MP, 2532-0, 3084-1, CBC, THYR, 66187-3 #### [facility] ([id number]) [address], [address] [place] [address] ALP [Catalytic activity/Vol] 80 U/L Normal 39-130 [facility] Comment on above: Performed By: #### C MP, 2532-0, 3084-1, CBC, THYR, 76917-4 #### [facility] ([id number]) [address], [address] [place] [address] ALT [Catalytic activity/Vol] 15 U/L Normal 0-31 [facility] Comment on above: Performed By: #### C MP, 2532-0, 3084-1, CBC, THYR, 62835-8 #### [facility] ([id number]) [address], [address] [place] [address] Anion gap [Moles/Vol] 13 mmol/L Normal 5-15 [facility] Comment on above: Performed By: #### C MP, 2532-0, 3084-1, CBC, THYR, 90759-1 #### [facility] ([id number]) [address], [address] [place] [address] AST [Catalytic activity/Vol] 25 U/L Normal 0-41 [facility] Comment on above: Performed By: #### C MP, 2532-0, 3084-1, CBC, THYR, 31364-0 #### [facility] ([id number]) [address], [address] [place] [address] Bilirubin [Mass/Vol] 0.3 mg/dL Normal 0.3-1.2 [facility] Comment on above: Performed By: #### C MP, 2532-0, 3084-1, CBC, THYR, 86153-3 #### [facility] ([id number]) [address], [address] [place] [address] Calcium [Mass/Vol] 8.9 mg/dL Normal 8.5-10.5 [facility] Comment on above: Performed By: #### C MP, 2532-0, 4-1, CBC, THYR, 08663-5 #### [facility] ([id number]) [address], [facility] [address] [place] [address] Chloride [Moles/Vol] 104 mmol/L Normal 98-109 [facility] Comment on above: Performed By: #### C EUSEBIA, 2532-0, 3083-1, CBC, THYR, 53186-4 #### [facility] ([id number]) [address], [address] [place] [address] CO2 [Moles/Vol] 17 mmol/L Low 22-32 [facility] Comment on above: Performed By: #### C EUSEBIA, 2532-0, 3083-1, CBC, THYR, 13111-6 #### [facility] ([id number]) [address], [facility] [address] [place] [address] Creatinine [Mass/Vol] 0.70 mg/dL Normal 0.40-1.00 [facility] Comment on above: Result Comment: METH OD TRACEABLE TO IDMS STANDARD Performed By: #### C EUSEBIA, 2532-0, 3084-1, CBC, THYR, 83086-7 #### [facility] ([id number]) [address], [address] [place] [address] eGFR (CKD-EPI) NON-RACE DEPENDENT >90 Normal >59 [facility] Comment on above: Result Comment: Reported eGFR is based on the CKD-EPI 2020 equation that does not use a race coefficient. Performed By: #### C MP, 2532-0, 3084-1, CBC, THYR, 74677-5 #### [facility] ([id number]) [address], [address] [place] [address] Glucose [Mass/Vol] 93 mg/dL Normal 65-99 [facility] Comment on above: Performed By: #### C MP, 2532-0, 4-1, CBC, THYR, 36179-5 #### [facility] ([id number]) [address], [address] [place] [address] Potassium [Moles/Vol] 3.9 mmol/L Normal 3.5-5.0 [facility] Comment on above: Performed By: #### C MP, 2532-0, 4-1, CBC, THYR, 45410-2 #### [facility] ([id number]) [address], [address] [place] [address] Protein [Mass/Vol] 6.8 g/dL Normal 6.0-8.0 [facility] Comment on above: Performed By: #### C EUSEBIA, 2532-0, 3083-1, CBC, THYR, 63177-3 #### [facility] ([id number]) [address], [address] [place] [address] Sodium [Moles/Vol] 134 mmol/L Normal 134-146 [facility] Comment on above: Performed By: #### C MP, 2532-0, 3084-1, CBC, THYR, 14747-0 #### [facility] ([id number]) [address], [address] [place] [address] Urea nitrogen [Mass/Vol] 11 mg/dL Normal 5-23 [facility] Comment on above: Performed By: #### C MP, 2532-0, 3084-1, CBC, THYR, 47597-7 #### [facility] ([id number]) [address], [address] [place] [address] DRUG SCREEN, URINEon 024 AMPHETAMINE/METHAM P Negative Normal NEG [facility] Comment on above: Result Comment: AMPH /METH screening cut off = 1000 ng/mL Performed By: #### U PCR, DSU #### [facility] ([id number]) [address], [address] [place] [address] BARBITURATES Negative Normal NEG [facility] Comment on above: Result Comment: Lupe iturates screening cut off value = 200 ng/mL Performed By: #### U PCR, DSU #### [facility] ([id number]) [address], [address] [place] [address] BENZODIAZEPINES Negative Normal NEG [facility] Comment on above: Result Comment: Jones odiazepines screening cut off value = 200 ng/mL Performed By: #### U PCR, DSU #### [facility] ([id number]) [address], [address] [place] [address] CANNABINOIDS Negative Normal NEG [facility] Comment on above: Result Comment: Debra abinoids/THC screening cut off value = 50 ng/mL Performed By: #### U PCR, DSU #### [facility] ([id number]) [address], [address] [place] [address] COCAINE METABOLITE Negative Normal NEG [facility] Comment on above: Result Comment: Coca ine screening cut off value = 300 ng/mL Performed By: #### U PCR, DSU #### [facility] ([id number]) [address], [address] [place] [address] ECSTASY Positive Abnormal NEG [facility] Comment on above: Result Comment: Inte rference from Buproprion or Labetalol may cause a positive result, confirmation available upon request. Ecstasy screening cut off value = 500 ng/mL This report is intended for use in clinical monitoring or management of patients. Performed By: #### U PCR, DSU #### [facility] ([id number]) [address], [address] [place] [address] METHADONE Negative Normal [facility] Comment on above: Result Comment: Meth adone screening cut off value = 300 ng/mL. Performed By: #### U PCR, DSU #### [facility] ([id number]) [address], [address] [place] [address] OPIATES Negative Normal NEG [facility] Comment on above: Result Comment: Opia arsenio screening cut off value = 300 ng/mL NOTE: This test is used for the detection of codeine, hydrocodone (>1000 ng/mL), morphine and hydromorphone (>900 ng/mL) in urine. Performed By: #### U PCR, DSU #### [facility] ([id number]) [address], [address] [place] [address] OXYCODONE Negative Normal [facility] Comment on above: Result Comment: Oxyc odone screening cut off value = 300 ng/mL NOTE: This test is used for the detection of oxycodone and oxymorphone in urine. Performed By: #### U PCR, DSU #### [facility] ([id number]) [address], [address] [place] [address] PHENCYCLIDINE Negative Normal [facility] Comment on above: Result Comment: Phen cyclidine screening cut off value = 25 ng/mL Performed By: #### U PCR, DSU #### [facility] ([id number]) [address], [address] [place] [address] Glucose Glucometer (BldC) [M ass/Vol]on 09-27-2023 Glucose [Mass/Vol] 115 mg/dL High 65-99 [facility] LDH [Catalytic activity/Vol] on 09-27-2023 LDH 202 U/L Normal 100-235 [facility] Comment on above: Performed By: #### A PARUL, 5124-3, 76286-5, 69975-6, 61794-7 #### [facility] ([id number]) [address], [address] [address] PROTEIN CREAT RATIOon 2023 RANDOM URINE PROTEIN 350 mg/L High <120 [facility] Comment on above: Performed By: #### U PCR, DSU #### [facility] ([id number]) [address], [address] [address] U/PRO/HAND VIOLIN MAKER RATIO CALC 0.23 High <0.2 [facility] Comment on above: Result Comment: Neph rotic Syndrome is associated with ratios >3.5 Performed By: #### U PCR, DSU #### [facility] ([id number]) [address], [address] [address] URINE CREATININE,RDM 153.63 mg/dL Normal [facility] Comment on above: Performed By: #### U PCR, DSU #### [facility] ([id number]) [address], [address] [address] RESP PATHOGENS/WHYD-PvD-3ph 09-27-2023 Respiratory pathogens DNA and RNA panel [...] patient with possible respiratory tract infection. Normal [facility] Comment on above: Performed By: #### A CA, 5124-3, 45909-0, 24534-1, 82792-1 #### [facility] ([id number]) [address] [place] [address] STREP B SCREEN CULTUREon S. agalactiae Org specific cx Ql (Vag+Rectum) CULTURE RESULTS POSITIVE FOR GROUP B STREPTOCOCCUS BY NUCLEIC ACID AMPLIFICATION : Group B streptococci remain universally susceptible to penicillin, ampicillin, and cefazolin. Resistance to clindamycin can occur. Please contact laboratory within 48 hr if clindamycin susceptibility testing is needed. Normal [facility] Comment on above: Performed By: #### A ME, 5124-3, 05510-5, 01338-1, 71280-4 #### [facility] ([id number]) [address] [address] T. pallidum IgG+IgM IA Ql (S )on 09-27-2023 Syphilis Total <0.2 Normal 0.0-0.8 [facility] Comment on above: Result Comment: NON REACTIVE No serologic evidence of infection to Treponema pallidum (syphilis). Repeat testing may be considered in patients with suspected acute or primary syphilis in 2 to 4 weeks. Performed By: #### A ME, 5124-3, 51812-8, 33637-6, 62716-6 #### [facility] ([id number]) [address], [address] [address] THYROID PROFILEon 09-27-2023 Free T4 [Mass/Vol] 0.59 ng/dL Low 0.61-1.60 [facility] Comment on above: Performed By: #### A ME, 5124-3, 40226-6, 84868-7, 84608-4 #### [facility] ([id number]) [address] [address] TSH 1.86 uIU/mL Normal 0.49-4.67 [facility] Comment on above: Performed By: #### A ME, 5124-3, 67459-0, 94012-8, 33174-0 #### [facility] ([id number]) [address], [address] [address] URIC ACIDon 09-27-2023 Urate [Mass/Vol] 7.0 mg/dL Normal 2.6-7.2 [facility] Comment on above: Performed By: #### A CA, 5124-3, 79249-3, 28334-9, 64485-2 #### [facility] ([id number]) [address], [address] [place] [address] URINALYSISon 09-27-2023 Bilirubin Ql (U) Negative Normal NEG [facility] Comment on above: Performed By: #### U PCR, DSU #### [facility] ([id number]) [address], [address] [place] [address] BLOOD/HGB MODERATE Abnormal NEG [facility] Comment on above: Performed By: #### U PCR, DSU #### [facility] ([id number]) [address], [address] [place] [address] Color (U) YELLOW Normal YELLOW [facility] Comment on above: Performed By: #### U PCR, DSU #### [facility] ([id number]) [address], [address] [place] [address] Glucose Ql (U) Negative Normal NEG [facility] Comment on above: Performed By: #### U PCR, DSU #### [facility] ([id number]) [address], [address] [place] [address] Hyaline casts LM Ql (Urine sed) 3 /lpf High 0-2 [facility] Comment on above: Performed By: #### U PCR, DSU #### [facility] ([id number]) [address], [address] [place] [address] Ketones Ql (U) 20 mg/dL Abnormal NEG [facility] Comment on above: Performed By: #### U PCR, DSU #### [facility] ([id number]) [address], [address] [place] [address] Leukocyte esterase Test strip Ql (U) Negative Normal NEG [facility] Comment on above: Performed By: #### U PCR, DSU #### [facility] ([id number]) [address] [facility], [address] [place] [address] MUCOUS PRESENT Abnormal NONE [facility] Comment on above: Performed By: #### U PCR, DSU #### [facility] ([id number]) [address], [address] [place] [address] Nitrite Ql (U) Negative Normal NEG [facility] Comment on above: Performed By: #### U PCR, DSU #### [facility] ([id number]) [address] [facility], [address] [place] [address] pH (U) 5.5 [pH] Normal 5.0-8.5 [facility] Comment on above: Performed By: #### U PCR, DSU #### [facility] ([id number]) [address], [address] [place] [address] Protein Ql (U) 30 mg/dL Abnormal NEG [facility] Comment on above: Performed By: #### U PCR, DSU #### [facility] ([id number]) [address], [address] [place] [address] R.B.CELLS 53 /hpf High 0-5 [facility] Comment on above: Performed By: #### U PCR, DSU #### [facility] ([id number]) [address], [address] [place] [address] Specific gravity (U) [Rel density] 1.027 Normal 1.003-1.035 [facility] Comment on above: Performed By: #### U PCR, DSU #### [facility] ([id number]) [address], [address] [place] [address] SQUAMOUS EPITHELIUM 1 /hpf Normal 0-5 [facility] Comment on above: Performed By: #### U PCR, DSU #### [facility] ([id number]) [address], [address] [place] [address] TURBIDITY CLEAR Normal CLEAR [facility] Comment on above: Performed By: #### U PCR, DSU #### [facility] ([id number]) [address], [address] [place] [address] Urobilinogen (U) [Mass/Vol] mg/dL Normal <1.1 [facility] Comment on above: Performed By: #### U PCR, DSU #### [facility] ([id number]) [address], [address] [place] [address] W.B.CELLS 3 /hpf Normal 0-5 [facility] Comment on above: Performed By: #### U PCR, DSU #### [facility] ([id number]) [address], [address] [place] [address] URINE CULTUREon 09-27-2023 Bacteria identified Cx Nom (U) SPECIMEN NOTES URINE RECEIVED WITHOUT PRESERVATIVE CULTURE RESULTS NO GROWTH AT <1000 CFU/mL Normal [facility] Comment on above: Performed By: #### A CA, 5124-3, 25319-2, 70456-1, 63996-2 #### [facility] ([id number]) [address], [address] [place] [address] No Panel Informationon 08-31 Unlisted lab test see scanned report [facility] Urinalysis macro (dipstick) panel (U)on 08-18-2023 Bilirubin, UA Negative Negative - 4(70) +++ mg/dL [facility] Blood, UA Negative Negative - 50 Izaiah/mcL [facility] Clarity, UA Clear [facility] Color, UA Yellow [facility] Glucose, UA Negative Negative - 2000(110) ++++ mg/dL [facility] Interpretation and review of laboratory results Abnormal [facility] Ketones, UA Negative Negative - 160(16) ++++ mg/dL [facility] Leukocytes, UA Trace Negative - 500+++ Susy/mcL [facility] Nitrite, UA Negative Negative - Positive [facility] pH, UA 7.0 5 - 9 [facility] Protein, UA Trace Negative - 2000(20) ++++ mg/dL [facility] Spec Grav, UA 1.025 1 - 1.03 [facility] Urobilinogen, UA 0.2 0.2 - 12 mg/dL [facility] [place] B Abon 08-15-2023 Blanquita akhtar. B1 <1:10 Normal <1:10 [facility] Comment on above: Performed By: #### U RTPRT #### [facility] [address] [place] [address] La[employer] Supervisor: MD Blanquita Barton. B2 <1:10 Normal <1:10 [facility] Comment on above: Performed By: #### U RTPRT #### [address] [address] [employer] Supervisor: MD Blanquita Barton. B3 <1:10 Normal <1:10 [facility] Comment on above: Performed By: #### U RTPRT #### [address] [address] [employer] Supervisor: MD Blanquita Barton B4 1:40 Normal <1:10 [facility] Comment on above: Performed By: #### U RTPRT #### [address] [address] [employer] Supervisor: MD Blanquita Barton. B5 1:20 Normal <1:10 [facility] Comment on above: Performed By: #### U RTPRT #### [facility] [address] [place] [address] [employer] Supervisor: MD Blanquita Barton. B6 <1:10 Normal <1:10 [facility] Comment on above: Result Comment: (NOT E) INTERPRETIVE INFORMATION: [place] B Virus Single positive antibody titers of greater than or equal to 1:80 may indicate past or current infection. Sero- conversion or an increase in titers between acute and convalescent sera of at least fourfold is considered strong evidence of current or recent infection. Performed By: [email or web address] [address] [place] [address] Unix Administrator: Nikita Pantoja MD, PhD CLIA Number: [id number] Performed By: #### U RTPRT #### [place] [address] [employer] Supervisor: Gonzalo Cain MD Protein S Ag, Freeon 024 Protein S Ag, Free 61 % Normal 55-123 [facility] Comment on above: Result Comment: (NOT [...] reference intervals for this test in the [facility] Laboratory Test Directory ([facility]). Performed By: [email or web address] [address] [place] [address] [employer] Administrator: Nikita Pantoja MD, PhD CLIA Number: [id number] Performed By: #### U RTPRT #### [place] [address] [employer] Supervisor: Gonzalo Cain MD Protein S, Antigenicon 08-14 Protein S, Antigenic 129 % High 63-126 [facility] Comment on above: Result Comment: (NOT E) INTERPRETIVE INFORMATION: Protein S, Total Antigen Patients on warfarin may have decreased protein S values. Patients should be off warfarin therapy for two weeks for accurate measurement of protein S. Access complete set of age- and/or gender-specific reference intervals for this test in the [facility] Laboratory Test Directory ([facility]). Performed By: [email or web address] [address] [place] [address] [employer] Administrator: Nikita Pantoja MD, PhD IA Number: [id number] Performed By: #### U RTPRT #### [facility] [address] [place] [address] [employer] Supervisor: Gonzalo Cain MD Antithrombin III Valentina 08-12 Antithrombin III Act 114 % Normal 83-122 [facility] Comment on above: Result Comment: Patients receiving Hirudin may have a falsely decreased Antitrombin III Activity. Performed By: #### U RTPRT #### [facility] [address] [place] [address] La[employer] Supervisor: Gonzalo Cain MD Lupus Anticoagulanton 2023 Dilute Madhuri Viper Negative Normal [facility]UP [facility] Comment on above: Performed By: #### L UPPRO #### [address] [address] La[employer] Supervisor: Gonzalo Cain MD Protein C Activityon 024 Protein C Activity 86 % Normal >80 [facility] Comment on above: Result Comment: Patients [...] VIII. Performed By: #### U RTPRT #### [facility] [address] [place] [address] Laundry [employer]er Supervisor: Gonzalo Cain MD Protein S Activityon 024 Protein S Activity 54 % Low 59-130 [facility] Comment on above: Result Comment: Patients [...] VIII. Performed By: #### U RTPRT #### [employer] [address] [place], [place] [address] [employer] Supervisor: Gonzalo Cain MD Factor V Mutationon 08-11-19 24 F 5 SPECIMEN Whole Blood Normal [facility] Comment on above: Performed By: #### A PARVP, AF5MUT, APRTSF, ACOXAB, ACOXA9, APTMUT, AMTHFR, APROTS #### [facility] [address] [place] [address] La[employer] Supervisor: Arben Carrington MD #### AT3A, PROSAC, HOCYS, ACARDA, FT4, PROCAC, TSH #### [employer] [facility] [address] [place], [place] [address] [employer] Supervisor: Gonzalo Cain MD FACTOR 5 MUTATION Negative Normal [facility] Comment on above: Result Comment: (NOT E) Indication for testing: Assess genetic risk for thrombosis. NEGATIVE: The factor V Leiden variant, c.1601G>A; p.Ual403Wrd, was not detected. This does not exclude [...] function in the F5 gene variant c.1601G>A (p.Mom971Mdb). Legacy nomenclature: [id number] (1691G>A) CLINICAL SENSITIVITY: 20-50 percent of individuals with an isolated VTE have the FVL variant. METHODOLOGY: Polymerase chain reaction and fluorescence monitoring. ANALYTICAL SENSITIVITY AND SPECIFICITY: 99 percent. LIMITATIONS: Diagnostic errors can occur due to rare sequence variations. F5 gene mutations, other than p.[id number], will not be detected. This test was developed and its performance characteristics determined by [email or web address]. It has not been cleared or approved by the [place] Food and Drug Administration. This test was performed in a CLIA certified laboratory and is intended for clinical purposes. Counseling and informed consent are recommended for genetic testing. Consent forms are available online. Performed By: [email or web address] [address] [place] [address] Unix Administrator: Nikita Pantoja MD, PhD CLIA Number: [id number] Performed By: #### A PARVP, AF5MUT, APRTSF, ACOXAB, ACOXA9, APTMUT, AMTHFR, APROTS #### [email or web address] [address] [place] [address] La[employer] Supervisor: Arben Carrington MD #### AT3A, PROSAC, HOCYS, ACARDA, FT4, PROCAC, TSH #### [address] [address] [employer] Supervisor: Gonzalo Cain MD PT Mutation [id number] 08-11-19 24 PT [id number] VARIANT Negative Normal [facility] Comment on above: Result Comment: (NOT E) Indication for testing: Assess genetic risk for thrombosis. NEGATIVE: The Factor II, prothrombin [id number] mutation, was not detected. Other causes of [...] M.D., Ph.D. BACKGROUND INFORMATION: Prothrombin (F2) c.*97G>A (J53220Z) Pathogenic Variant CHARACTERISTICS: The Factor II, c.*97G>A (F98368B) pathogenic variant is a common genetic risk [...] CAUSE: Homozygosity or heterozygosity for F2 c.*97G>A (C13796X). PATHOGENIC VARIANT TESTED: F2 c.*97G>A (W07342W). CLINICAL SENSITIVITY FOR VENOUS THROMBOSIS: Approximately 10 percent. METHODOLOGY: Polymerase chain reaction and fluorescence monitoring. ANALYTICAL SENSITIVITY AND SPECIFICITY: 99 percent. LIMITATIONS: Diagnostic errors can occur due to rare sequence variations. F2 gene variants, other than c.*97G>A (R08678Z), will not be detected. This test was developed and its performance characteristics determined by [email or web address]. It has not been cleared or approved by the [place] Food and Drug Administration. This test was performed in a CLIA certified laboratory and is intended for clinical purposes. Counseling and informed consent are recommended for genetic testing. Consent forms are available online. Performed By: [email or web address] [address] [place] [address] Unix Administrator: Nikita Pantoja MD, PhD CLIA Number: [id number] Performed By: #### U RTPRT #### [address] [address] Laundry Marker Supervisor: Gonzalo Cain MD PT PCR SPECIMEN Whole Blood Normal [facility] Comment on above: Performed By: #### U RTPRT #### [address] [address] Laundry Marker Supervisor: Gonzalo Cain MD [place] A9 Titeron 024 [place] A9 Titer <1:8 Normal <1:8 [facility] Comment on above: Result Comment: (NOT E) INTERPRETIVE INFORMATION: [place] A Serotype 9 Titer Single positive antibody titers of greater than 1:32 may indicate past or current infection. Seroconversion or an increase in titers between acute and convalescent sera of at least fourfold is considered strong evidence of current or recent infection. Performed By: [email or web address] [address] [place] [address] Unix Administrator: Nikita Pantoja MD, PhD CLIA Number: [id number] Performed By: #### A PARVP, AF5MUT, APRTSF, ACOXAB, ACOXA9, APTMUT, AMTHFR, APROTS #### [facility] [address] [address] Laundry Marker Supervisor: Arben Carrington MD #### AT3A, PROSAC, HOCYS, ACARDA, FT4, PROCAC, TSH #### [address] [address] Laundry Marker Supervisor: Gonzalo Cain MD MTHFR Gene Mutationon 2023 MTHFR 1286 A>C Mut Negative Normal [facility] Comment on above: Performed By: #### A PARVP, AF5MUT, APRTSF, ACOXAB, ACOXA9, APTMUT, AMTHFR, APROTS #### [facility] [address] [place] [address] [phone] Laundry Marker Supervisor: Arben Carrington MD #### AT3A, PROSAC, HOCYS, ACARDA, FT4, PROCAC, TSH #### [facility] [address] [place], [place] [id number] Laundry Marker Supervisor: Gonzalo Cain MD MTHFR 655C>T Mut Homozygous Normal [facility] Comment on above: Performed By: #### A PARVP, AF5MUT, APRTSF, ACOXAB, ACOXA9, APTMUT, AMTHFR, APROTS #### [facility] [address] [place], [place] [phone] Laundry Marker Supervisor: Arben Carrington MD #### AT3A, PROSAC, HOCYS, ACARDA, FT4, PROCAC, TSH #### [facility] [address] [place], [place] [phone] Laundry Marker Supervisor: Gonzalo Cain MD MTHFR Interpretation See Note Normal [facility] Comment on above: Result Comment: (NOT E) Indication for testing: Determine genetic contribution to hyperhomocysteinemia. Homozygous MTHFR c.665C>T: Two copies of the MTHFR gene variant c.665C>T (previously designated C677T) were detected; the c.1286A>C (previously designated L8170F) variant was not detected. Homozygosity for the [...] has an effect on cardiovascular disease. The [employer] Practice Guidelines indicate [...] a contributing factor to hyperhomocysteinemia. Variants Tested: c.665C>T(p.Ktv127Fxu) and c.1286A>C(p.Ufd906Xfd). (legacy names C677T and J6393T, respectively). Clinical Sensitivity: Undefined; hyperhomocysteinemia is caused [...] developed and its performance characteristics determined by [facility]. It has not been cleared or approved by the US Food and Drug Administration. This test was performed in a CLIA certified laboratory and is intended for clinical purposes. Counseling and informed consent are recommended for genetic testing. Consent forms are available online. Performed By: [email or web address] [address] [place] [address] Unix Administrator: Nikita Pantoja MD, PhD CLIA Number: [id number] Performed By: #### A PARVP, AF5MUT, APRTSF, ACOXAB, ACOXA9, APTMUT, AMTHFR, APROTS #### [facility] [address] [place] [address] Laundry Marker Supervisor: Arben Carrington MD #### AT3A, PROSAC, HOCYS, ACARDA, FT4, PROCAC, TSH #### [address] [phone] Laundry Marker Supervisor: Gonzalo Cain MD MTHFR SPECIMEN Whole Blood Normal [facility] Comment on above: Performed By: #### A PARVP, AF5MUT, APRTSF, ACOXAB, ACOXA9, APTMUT, AMTHFR, APROTS #### [facility] [address] [place] [address] Laundry Marker Supervisor: Arben Carrington MD #### AT3A, PROSAC, HOCYS, ACARDA, FT4, PROCAC, TSH #### [address] [place] [address] Laundry Marker Supervisor: Gonzalo Cain MD Parvovirus B19 Panelon 08-10 Parvovirus IgG B19 0.18 IV Normal <=0.90 [facility] Comment on above: Result Comment: (NOT [...] APRTSF, ACOXAB, ACOXA9, APTMUT, AMTHFR, APROTS #### [facility] [address] [place] [address] Laundry Marker Supervisor: Arben Carrington MD #### AT3A, PROSAC, HOCYS, ACARDA, FT4, PROCAC, TSH #### [address] [place] [address] Laundry Marker Supervisor: Gonzalo Cain MD Parvovirus IgM B19 0.24 IV Normal <=0.90 [facility] Comment on above: Result Comment: (NOT E) INTERPRETIVE INFORMATION: Parvovirus B19 Antibody, IgM EFFECTIVE 05/21/2023 REFERENCE INTERVAL CHANGE Due to reagent kit finishing supervisor plastic sheets recall, an alternate kit has been validated and implemented by [facility]. The following Reference Interval applies [...] levels of specific IgM antibodies. Performed By: [facility] [place] [address] Unix Administrator: Nikita Pantoja MD, PhD CLIA Number: [id number] Performed By: #### A PARVP, AF5MUT, APRTSF, ACOXAB, ACOXA9, APTMUT, AMTHFR, APROTS #### [facility] [address] [place] [address] Laundry Marker Supervisor: Arben Carrington MD #### AT3A, PROSAC, HOCYS, ACARDA, FT4, PROCAC, TSH #### [address] [address] Laundry Marker Supervisor: Gonzalo Cain MD Cardiolipin Ab Burak,Penelope,[facility] 08-08 Anticardiolipin IgG 0.7 GPL Normal 0.0-10.0 [facility] Comment on above: Result Comment: Reference Range: <10.0 Negative 10.0-40.0 Equivocal >40.0 Positive Performed By: #### A PARVP, AF5MUT, APRTSF, ACOXAB, ACOXA9, APTMUT, AMTHFR, APROTS #### [facility] [address] [place] [address] Laundry Marker Supervisor: Arben Carrington MD #### AT3A, PROSAC, HOCYS, ACARDA, FT4, PROCAC, TSH #### [address] 1948[address] Laundry Marker Supervisor: Gonzalo Cain MD Anticardiolipin IgA 1.9 APL Normal 0.0-14.0 [facility] Comment on above: Result Comment: Reference Range: <14.0 Negative 14.0-20.0 Equivocal >20.0 Positive When results are Equivocal, it is recommended to retest after 4-6 weeks. Performed By: #### A PARVP, AF5MUT, APRTSF, ACOXAB, ACOXA9, APTMUT, AMTHFR, APROTS #### [address] [address] Laundry Marker Supervisor: Arben Carrington MD #### AT3A, PROSAC, HOCYS, ACARDA, FT4, PROCAC, TSH #### [address] [address] Laundry Marker Supervisor: Gonzalo Cain MD Anticardiolipin IgM 1.0 MPL Normal 0.0-10.0 [facility] Comment on above: Result Comment: Reference Range: <10.0 Negative 10.0-40.0 Equivocal >40.0 Positive Performed By: #### A PARVP, AF5MUT, APRTSF, ACOXAB, ACOXA9, APTMUT, AMTHFR, APROTS #### [facility] [address] [place] [address] Laundry Marker Supervisor: Arben Carrington MD #### AT3A, PROSAC, HOCYS, ACARDA, FT4, PROCAC, TSH #### [address] [address] Laundry Marker Supervisor: Gonzalo Cain MD Homocysteineon 08-06-2023 Homocysteine 5.4 umol/L Normal <15.0 [facility] Comment on above: Performed By: #### A PARVP, AF5MUT, APRTSF, ACOXAB, ACOXA9, APTMUT, AMTHFR, APROTS #### [facility] [address] [place] [address] Laundry Marker Supervisor: Arben Carrington MD #### AT3A, PROSAC, HOCYS, ACARDA, FT4, PROCAC, TSH #### [address] [address] Laundry Marker Supervisor: Gonzalo Cain MD Lupus Anticoagulanton 2023 aPTT Coag (Bld) [Time] 25.4 s Normal 23.0-36.5 [facility] Comment on above: Result Comment: IV Heparin Therapy Range: 66.0-92.0 sec Performed By: #### L UPPRO #### [address] [address] Laundry Marker Supervisor: Gonzalo Cain MD INR Coag (PPP) [Relative time] 1.0 {INR} Normal [facility] Comment on above: Result Comment: Therapeutic Range: Moderate Anticoagulant Intensity: INR = 2.0-3.0 High Anticoagulant Intensity: INR = 2.5-3.5 Performed By: #### L UPPRO #### [address] [address] Laundry Marker Supervisor: Gonzalo Cain MD PT Coag (PPP) [Time] 13.0 s Normal 11.7-14.9 [facility] Comment on above: Performed By: #### L UPPRO #### [address] [address] Laundry Marker Supervisor: Gonzalo Cain MD Protein,Tot,Reading Uron 2023 Creatinine [Mass/Vol] 221.0 mg/dL High 28.0-217.0 [facility] Comment on above: Performed By: #### U RTPRT #### [address] [id number] Laundry Marker Supervisor: Gonzalo Cain MD Tot Prot. Conc. 15 mg/dL Normal [facility] Comment on above: Result Comment: No n ormal range established. Performed By: #### U RTPRT #### [address] [id number] Laundry Marker Supervisor: Gonzalo Cain MD TP/Cre Ratio 0.07 Normal [facility] Comment on above: Performed By: #### U RTPRT #### [address] [address] Laundry Marker Supervisor: Gonzalo Cain MD Thyroid Stim. Horm.on 2023 Thyroid Stim. Horm. 1.89 uIU/mL Normal 0.30-5.00 [facility] Comment on above: Performed By: #### A PARVP, AF5MUT, APRTSF, ACOXAB, ACOXA9, APTMUT, AMTHFR, APROTS #### [facility] [address] [place] [address] Laundry Marker Supervisor: Arben Carrington MD #### AT3A, PROSAC, HOCYS, ACARDA, FT4, PROCAC, TSH #### [address] [id number] Laundry Marker Supervisor: Gonzalo Cain MD Thyroxine, Freeon 08-06-2023 Thyroxine, Free 1.1 ng/dL Normal 0.9-1.7 [facility] Comment on above: Performed By: #### A PARVP, AF5MUT, APRTSF, ACOXAB, ACOXA9, APTMUT, AMTHFR, APROTS #### [facility] [address] [place] [address] Laundry Marker Supervisor: Arben Carrington MD #### AT3A, PROSAC, HOCYS, ACARDA, FT4, PROCAC, TSH #### [facility] [address] [place] [address] Laundry Marker Supervisor: Gonzalo Cain MD ANTI CARDIOLIPIN AB IGG IGA IGMon 08-04-2023 NATHAN IgA <2.0 Normal 0-19.9 [facility] Comment on above: Performed By: #### A CA, 5124-3, 20034-1, 75117-4, 29644-0 #### [facility] ([id number]) [address], [address] [place] [address] NATHAN IgG <1.6 Normal 0-19.9 [facility] Comment on above: Performed By: #### A CA, 5124-3, 33652-5, 31884-1, 42776-5 #### [facility] ([id number]) [address], [address] [place] [address] NATHAN IgM <1.5 Normal 0-19.9 [facility] Comment on above: Performed By: #### A CA, 5124-3, 74013-9, 88337-0, 92668-7 #### [facility] ([id number]) [address], [address] [place] [address] Anti cardiolipin AB IgG IgA IgMon 08-04-2023 Cardiolipin IgA IA Qn (S) [facility] Cardiolipin IgG IA Qn (S) [facility] Cardiolipin IgM IA Qn (S) [facility] CMV IgG IA Qnon 08-04-2023 Interpretation and review of laboratory results Abnormal [facility] CYTOMEGALOVIRUS IgG >8.0 High <0.9 [facility] Comment on above: Result Comment: Interpretation-------- <0.9 Negative 0.9 - 1.0 Equivocal >1.0 Positive Performed By: #### A CA, 5124-3, 55354-1, 10751-3, 49390-2 #### [facility] ([id number]) [address] [place] [address], [address] [address] CMV IgMon 08-04-2023 CMV IgM IA Ql [facility] Comment on above: Interpretation-------- <0.9 Negative 0.9 - 1.0 Equivocal >1.0 Positive NOTE The following results were obtained with the [employer] IgM test. Results obtained from other Clinical Interviewer's assay methods may not be used interchangeably. CMV IgM IA Qlon 08-04-2023 [facility] CYTOMEGALOVIRUS IgM <0.2 Normal <0.9 [facility] Comment on above: Result Comment: Interpretation-------- <0.9 Negative 0.9 - 1.0 Equivocal >1.0 Positive NOTE The following results were obtained with the [employer] IgM test. Results obtained from other Clinical Interviewer's assay methods may not be used interchangeably. Performed By: #### A ME, 5124-3, 88328-9, 98217-1, 41716-7 #### [facility] ([id number]) [address] [place] [address], [address] [place] [address] Cytomegalovirus antibody, Ig Blaze 08-04-2023 CMV IgG IA Qn High [facility] Comment on above: Interpretation-------- <0.9 Negative 0.9 - 1.0 Equivocal >1.0 Positive Syphilis Total(Unknown Syphi lis Status)on 08-04-2023 T. pallidum IgG+IgM IA Ql (S) [facility] Comment on above: NON REACTIVE No serologic evidence of infection to Treponema pallidum (syphilis). Repeat testing may be considered in patients with suspected acute or primary syphilis in 2 to 4 weeks. T. gondii IgM IA Qlon 2023 [facility] TOXOPLASMA IGM <0.2 Normal <0.9 [facility] Comment on above: Result Comment: Interpretation-------- <0.9 Negative 0.9 - 1.0 Equivocal >1.0 Positive NOTE The following results were obtained with the [employer] IgM test. Results obtained from other Clinical Interviewer's assay methods may not be used interchangeably. Performed By: #### A ME, 5124-3, 34202-3, 91640-9, 35786-2 #### [facility] ([id number]) [address] [place] [address], [facility] [address] [place] [address] T. pallidum IgG+IgM IA Ql (S )on 08-04-2023 [facility] Syphilis Total <0.2 Normal 0.0-0.8 [facility] Comment on above: Result Comment: NON REACTIVE No serologic evidence of infection to Treponema pallidum (syphilis). Repeat testing may be considered in patients with suspected acute or primary syphilis in 2 to 4 weeks. Performed By: #### A ME, 5124-3, 93652-7, 40603-3, 32347-2 #### [facility] ([id number]) [address] [place] [address], [address] [place] [address] Toxoplasma IgMon 08-04-2023 T. gondii IgM IA Ql A1 NINF - 0.9 A1 [facility] Comment on above: Interpretation-------- <0.9 Negative 0.9 - 1.0 Equivocal >1.0 Positive NOTE The following results were obtained with the [employer] [employer] IgM test. Results obtained from other Clinical Interviewer's assay methods may not be used interchangeably. dRVVT/dRVVT.excess phospholi pid Coag (PPP) [Ratio]on 08-04-2023 [facility] Negative Normal [facility] Comment on above: Performed By: #### 5 0410-0 #### [facility] ([id number]) [address] [place] [address], [address] [place] [address] dRVVT excess phospholipid Coag Ql (PPP) Negative [facility] MRI KNEE WO CONTRAST LEFTon 04-18-2017 MRI KNEE WO CONTRAST LEFT [facility] [address] [place] [id number] Patient Name: SISI CELIS : 1995Sex: FAge: Race: WhiteMRN: [id number]. Location: LPOPPatient Status: DVisit #: [id number] Date: 04/18/2017 8:15:00 AMCompleted Date: 04/18/2017 08:53 AMRequesting Provider: MORIAH BOND Attending Provider: Report Copy To: OLMAN VELA Signs & Symptoms: Internal derangement knee, leftHistory: Order in RIS, No FB per mother Auth # [id number] Valid 04/06/17-05/06/17. Auth scanned into RIS.Comments: Exam: MRI KNEE WO CONTRAST LEFTAccession #: [id number] MRI KNEE WO CONTRAST LEFT 04/18/2017 8:53 [...] 16. Electronically signed by:Guzman Saba. Transcribed by: [email or web address], User Resident: Electronically Signed by: GUZMAN SABA @ 04/20/2017 02:46 PM Normal [facility] Vital Signs Date Time Vital Sign Value Performing Clinician Facility 06-29-2024 15:10-0500 Body mass index (BMI) [Ratio] 46.27 kg/m2 Olga PAUL Work Phone: [facility] 06-29-2024 15:10-0500 Body weight 133.99 kg Olga PAUL Work Phone: [facility] 06-29-2024 15:10-0500 Diastolic blood pressure 70 mm[Hg] Olga PAUL Work Phone: [facility] 06-29-2024 15:10-0500 Systolic blood pressure 120 mm[Hg] Olga PAUL Work Phone: [facility] 05-30-2024 13:10-0500 Body mass index (BMI) [Ratio] 46.2 kg/m2 Contreras Emili DO Work Phone: [facility] 05-30-2024 13:10-0500 Body weight 133.81 kg Contreras Emili DO Work Phone: [facility] 05-30-2024 13:10-0500 Diastolic blood pressure 76 mm[Hg] Contreras Emili DO Work Phone: [facility] 05-30-2024 13:10-0500 Systolic blood pressure 118 mm[Hg] Contreras Emili DO Work Phone: [facility] 03-08-2024 13:06-0400 Body mass index (BMI) [Ratio] 44.5 kg/m2 Contreras Emili DO Work Phone: [facility] 03-08-2024 13:06-0400 Body weight 128.88 kg Contreras Emili DO Work Phone: [facility] 03-08-2024 13:06-0400 Diastolic blood pressure 80 mm[Hg] Contreras Emili DO Work Phone: [facility] 03-08-2024 13:06-0400 Systolic blood pressure 130 mm[Hg] Contreras Emili DO Work Phone: [facility] 10-10-2023 02:11-0400 SaO2% (BldA) [Mass fraction] 89 % JAK ANAYA [facility] Comment on above: Performed By: #### U PAZ CORTEZ #### [facility] ([id number]) [address] [place] [address] 08-18-2023 10:27-0500 Body mass index (BMI) [Ratio] 44.19 kg/m2 Contreras Emili DO Work Phone: [facility] 08-18-2023 10:27-0500 Body weight 127.97 kg Contreras Emili DO Work Phone: [facility] 08-18-2023 10:27-0500 Diastolic blood pressure 80 mm[Hg] Contreras Emili DO Work Phone: [facility] 08-18-2023 10:27-0500 Systolic blood pressure 122 mm[Hg] Contreras Emili DO Work Phone: [facility] 08-04-2023 10:46-0500 Diastolic blood pressure 85 mm[Hg] Yanelis Garrido MD Work Phone: [facility] 08-04-2023 10:46-0500 Heart rate 85 /min Yanelis Garrido MD Work Phone: [facility] 08-04-2023 10:46-0500 Systolic blood pressure 138 mm[Hg] Yanelis Garrido MD Work Phone: [facility] 08-04-2023 08:25-0500 Body height 170.2 cm Yanelis Garrido MD Work Phone: [facility] 08-04-2023 08:25-0500 Body mass index (BMI) [Ratio] 43.98 kg/m2 Yanelis Garrido MD Work Phone: [facility] 08-04-2023 08:25-0500 Body weight 127.37 kg Yanelis Garrido MD Work Phone: [facility] Encounters Encounter Date Encounter Type Care Provider Facility Start: 08-05-2024 End: 08-05-2024 Admission to same day surgery center Olivia Tuttle PhD Work Phone: General Surgery [facility] Comment on above: Psychological factor s affecting medical condition (Primary Dx); Obesity, unspecified class, unspecified obesity type, unspecified whether serious comorbidity present Start: 08-05-2024 End: 08-05-2024 Telemedicine consultation with patient Olivia Tuttle PhD Work Phone: General Surgery [facility] Start: 08-02-2024 ambulatory DO DINORAH GILBERT [facility] Start: 06-29-2024 End: 06-29-2024 Office outpatient visit 10 minutes Olga PAUL Work Phone: [facility] Comment on above: Encounter for weight management Start: 06-29-2024 End: 06-29-2024 ambulatory OLGA ESCOBAR Not Available Start: 06-29-2024 End: 06-29-2024 Bamboo flowsheet Olga PAUL Work Phone: [facility] Start: 06-29-2024 End: 06-29-2024 Bamboo flowsheet Olga PAUL Work Phone: [facility] Start: 05-30-2024 End: 05-30-2024 Bamboo flowsheet Contreras Emili DO Work Phone: [facility] Start: 05-30-2024 End: 05-30-2024 Bamboo flowsheet Contreras Emili DO Work Phone: [facility] Start: 05-30-2024 End: 05-30-2024 Office outpatient visit [...] 05-03-2024 End: 05-10-2024 Clinisync Result Encounter Contreras Emili DO Work Phone: [facility] External Department Unsolicited Start: 05-03-2024 End: 05-03-2024 Patient encounter procedure Contreras Emili DO Work Phone: [facility] Work Phone: Start: 05-03-2024 End: 05-03-2024 Periodic preventive med est patient 18-39 yrs Contreras Emili DO Work Phone: [facility] Comment on above: Well woman exam with routine gynecological exam; depression (CMS/HCC); Follow-up exam; Post depression (CMS/HCC); Insulin resistance Start: 05-03-2024 End: 05-03-2024 ambulatory CONTRERAS EMILI Not Available Start: 04-27-2024 End: 04-27-2024 ambulatory DO DINORAH P HOUSE Facility:[facility] Start: 04-05-2024 End: 04-05-2024 ambulatory DINORAH P HOUSE Facility:[facility] Start: 03-08-2024 End: 03-08-2024 Bamboo flowsheet Contreras Emili DO Work Phone: [facility] Start: 03-08-2024 End: 03-08-2024 Bamboo flowsheet Contreras Emili DO Work Phone: [facility] Start: 03-08-2024 End: 03-08-2024 Office outpatient visit 15 minutes Contreras Emili DO Work Phone: [facility] Comment on above: Post depressi on (CMS/HCC) Start: 03-08-2024 End: 03-08-2024 ambulatory CONTRERAS EMILI Not Available Start: 03-08-2024 ambulatory DINORAH P HOUSE Facilit y:[facility] Start: 03-07-2024 End: 03-07-2024 ambulatory DINORAH P HOUSE Facility:[facility] Start: 02-04-2024 End: 02-04-2024 ambulatory DINORAH P HOUSE Facility:[facility] Start: 01-05-2024 End: 01-05-2024 ambulatory DINORAH P HOUSE Facility:[facility] Start: 11-12-2023 ambulatory Alfonzo Guerra MD Fac ility:[facility] Start: 10-27-2023 End: 10-27-2023 Encounter Alfonzo Guerra MD Work Phone: [facility] 3W NICU Start: 10-26-2023 End: 10-26-2023 ambulatory CONTRERAS MOCK Not Available Start: 10-22-2023 End: 10-22-2023 Encounter Alfonzo Guerra MD Work Phone: [facility] 3W NICU Start: 10-20-2023 End: 10-20-2023 Encounter Alfonzo Guerra MD Work Phone: [facility] 3W NICU Start: 10-20-2023 End: 10-20-2023 Emergency department patient visit JAK ANAYA [facility] Start: 10-16-2023 Encounter Alfonzo hernandez MD Work Phone: [facility] 3W NICU Start: 10-15-2023 End: 10-15-2023 Encounter OMA NOVAK [facility] Start: 10-15-2023 End: 10-15-2023 Office outpatient visit 10 minutes Oma Novak 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 Comment on above: Pre-eclampsia superi mposed on chronic hypertension, delivered (Primary Dx); History of Start: 10-14-2023 Encounter Alfonzo hernandez MD Work Phone: [facility] Start: 10-12-2023 End: 10-12-2023 Evaluation and management of inpatient ELLIOT MACK [facility] Start: 10-08-2023 End: 10-09-2023 Evaluation and management of inpatient JAMAR JERMAIN [facility] Start: 10-05-2023 End: 10-06-2023 Evaluation and management of inpatient BRIAN TREJO [facility] Start: 09-28-2023 End: 09-29-2023 Evaluation and management of inpatient MARGARITA REYES [facility] Start: 09-28-2023 End: 09-28-2023 ambulatory CAROLINE TREJO [facility] Start: 09-27-2023 End: 10-12-2023 Evaluation and management of inpatient JAK ANAYA [facility] Start: 2023 End: 2023 ambulatory CONTRERAS MEDRANOO Not Available Start: 08-31-2023 Orders Only Carla Guerra [facility] Comment on above: IUGR (intrauterine g [...] trimester Start: 08-20-2023 Documentation procedure Jeniffer Kelsey [facility] Work Phone: [facility] Comment on above: Outgoing Ca ll Start: 08-18-2023 End: 08-18-2023 flow sheet Contreras Richardszio DO Work Phone: [facility] Comment on above: Second trimester pre gnancy; Diabetes mellitus screening; Thyroid disease affecting ([facility] Start: 08-18-2023 End: 08-18-2023 ambulatory CONTRERAS RICHARDSZIO Not Available Start: 08-17-2023 Telephone encounter Althea PARIKH [facility] Start: 08-06-2023 End: 08-07-2023 ambulatory ALFONZO GUERRA [facility] Start: 08-05-2023 Documentation procedure Yanelis Garrido MD Work Phone: [facility] Start: 08-05-2023 Telephone encounter Stacy Justin RN [facility] Start: 08-04-2023 Documentation procedure Carla portillo [employer] [facility] Start: 08-04-2023 Telephone encounter Leslie reese [facility] Comment on above: Appointment IUGR (intrauterine g rowth restriction) affecting care of mother, second trimester, not applicable or unspecified fetus (Primary Dx); History of delivery, currently ; 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 trimester; Chronic hypertension affecting Start: 08-04-2023 End: 08-05-2023 ambulatory CONTRERAS Ta [facility] Start: 08-04-2023 End: 08-04-2023 Office outpatient visit 40 minutes Yanelis Garrido MD Work Phone: Maternal- Medicine at [facility] Comment on above: IUGR (intrauterine g rowth restriction) affecting care of mother, second trimester, not applicable or unspecified fetus (Primary Dx); History of delivery, currently ; 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 trimester; Hx of preeclampsia, prior , currently , second trimester Start: 07-22-2023 End: 07-22-2023 ambulatory CONTRERAS EMILI Not Available Start: 06-18-2023 End: 06-18-2023 ambulatory CONTRERAS EMILI Not Available Start: 11-24-2022 End: 11-24-[address] DOCTOR RUTHERFORD Facility: Start: 04-18-2017 End: 04-19-2017 Ambulatory MORIAH BOND Facility:[facility] Procedures Date Procedure Procedure Detail Performing Clinician Start: 05-03-2024 IGP,APTIMA HPV,AGE GDLN Contreras Mock DO Work Phone: Start: 08-18-2023 Urnls dip stick/tabl et rgnt non-auto w/o micrscp Contreras Medranoo DO Work Phone: Start: 08-04-2023 UNLISTED LAB TEST Yanelis Garrido MD Work Phone: Start: 11-24-2022 Microscopic observat ion [Identifier] in Cervix by Cyto stain Alfonzo Guerra MD Work Phone: H/O: section History of C-sectio n Oma Novak RECREATION WORKER-[employer]PER[employer]OR [employer] Work Phone: Plan of Treatment Date Care Activity Detail Author Start: 06-05-2031 DTaP,Tdap and Td Vaccines (7 - Td or Tdap) DTaP,Tdap and Td Vaccines (7 - Td or Tdap) [facility] Start: 06-05-2031 Urine microalbumin profile DTaP,Tdap,Td Vaccine (7 - Td or Tdap) [facility] Start: 11-24-2025 Screening for malign ant neoplasm of cervix Pap Smear [facility] Start: 10-11-2024 Adult BMI Screening Adult BMI Screen ing [facility] Start: 10-11-2024 Tobacco Screening Tobacco Screening [facility] Start: 08-04-2024 Adult BMI Screening Adult BMI Screen ing [facility] Start: 08-04-2024 Tobacco Screening Tobacco Screening [facility] Start: 08-04-2024 End: 08-04-2024 US MFM with or without consult US MFM with or without consult Imaging Routine IUGR (intrauterine growth restriction) affecting care of mother, second trimester, not applicable or unspecified fetus History of delivery, currently 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 trimester Chronic hypertension affecting Expected: 08/04/2024 (Approximate), Expires: 08/04/2024 [facility] Work Phone: Comment on above: Expected: 08/04/2024 (Approximate), Expires: 08/04/2024 Start: 06-29-2024 End: 06-29-2024 Patient encounter procedure 06/29/2024 3:00 PM EST Office Visit [facility] [address] [place] [id number] Olga Escobar PA [address] [place] [address] Arrived [facility] Comment on above: Arrived Start: 06-27-2024 End: 06-27-2024 Patient encounter procedure 06/27/2024 1:30 PM EST Office Visit [facility] [address] [place] [id number] Olga Escobar, PA [address] [place] [address] [facility] Start: 05-30-2024 End: 05-30-2024 Patient encounter procedure 05/30/2024 1:00 PM EST Office Visit [facility] [address] [place] [id number] Contreras Mock, [address] [place] [address] [facility] Start: 05-03-2024 End: 05-03-2024 Patient encounter procedure [facility] Comment on above: Arrived Start: 03-13-2024 Covid-19 Vaccine () Covid-19 Vaccine () [facility] Start: 03-13-2024 Influenza vaccination [facility] Start: 03-08-2024 End: 03-08-2024 Patient encounter procedure 03/08/2024 1:00 PM EDT Office Visit [facility] [address] [place] [id number] Contreras Mock, DO [address] [place] [address] Arrived [facility] Comment on above: Arrived Start: 10-15-2023 End: 10-15-2023 Telemedicine consultation with patient 10/15/2023 9:00 AM EDT Telemedicine [facility] [address] [place] [address] Oma Novak, RECREATION WORKER-SUPERVISOR [employer] [address] [place] [address] [facility] Start: 09-15-2023 End: 09-15-2023 Patient encounter procedure 09/15/2023 10:20 AM EST Routine [facility] [address] [place] [phone] Contreras Mock, DO [address] [place] [address] [facility] Start: 08-18-2023 End: 08-18-2024 CBC panel - Blood by Automated count CBC Lab Routine Diabetes mellitus screening Expected: 08/18/2023 (Approximate), Expires: 08/18/2024 [facility] Work Phone: Comment on above: Expected: 08/18/2023 (Approximate), Expires: 08/18/2024 Start: 08-18-2023 End: 08-18-2024 Measurement of glucose 1 hour after glucose challenge for glucose tolerance test Glucose tolerance, 1 hour Lab Routine Diabetes mellitus screening Expected: 08/18/2023 (Approximate), Expires: 08/18/2024 [facility] Comment on above: Expected: 08/18/2023 (Approximate), Expires: 08/18/2024 Start: 08-17-2023 End: 08-17-2023 Patient encounter procedure [facility] Start: 08-05-2023 End: 08-05-2024 Unlisted Lab Test Unlisted Lab Test Lab Routine IUGR (intrauterine growth restriction) affecting care of mother, second trimester, not applicable or unspecified fetus Maternal care for other known or suspected poor growth, unspecified trimester, not applicable or unspecified Expected: 08/05/2023 (Approximate), Expires: 08/05/2024 [facility] Work Phone: Comment on above: Expected: 08/05/2023 (Approximate), Expires: 08/05/2024 Start: 03-13-2023 COVID-19 Vaccine ( season) COVID-19 Vaccine () [facility] Start: 03-13-2023 Influenza vaccination [facility] Start: 2017 Screening for malign ant neoplasm of cervix [facility] Start: 2014 Adult BMI Follow Up Plan Adult BMI Follow Up Plan [facility] Start: 2014 Anxiety Screening Anxiety Screening [facility] Start: 2014 [facility]: 2014 Hepatitis C screening Hepatitis C Sc reening [facility] Start: 2014 HIV screening HIV Screening [facility] Start: 2008 Depression Screening Depression Scre [facility] End: 08-03-2024 Beta-2 glycoprotein antibodies Beta-2 glycoprotein antibodies Lab Routine IUGR (intrauterine growth restriction) affecting care of mother, second trimester, not applicable or unspecified fetus 1 Occurrences starting 08/04/2023 until 08/03/2024 [facility] Work Phone: Comment on above: 1 Occurrences starti ng 08/04/2023 until 08/03/2024 Cytology Cervical or vaginal smear or scraping study Pap Smear Pathology and Cytology Routine Well woman exam with routine gynecological exam Ordered: 05/03/2024 [facility] Work Phone: Comment on above: Ordered: 05/03/2024 Immunizations Immunization Date Immunization Notes Care Provider Pete olson 06-10-2022 influenza virus vaccine, unspecified formulation [facility] 06-05-2021 influenza, injectabl e, quadrivalent, preservative free [facility] 06-05-2021 tetanus toxoid, reduced diphtheria toxoid, and acellular pertussis vaccine, adsorbed [facility] 06-05-2021 influenza virus vaccine, unspecified formulation Contreras Mock DO Work Phone: [facility] Healthcare Payers Date Payer Category Payer [facility] [id number] 2022 Unknown [id number] 2020 Unknown [id number] 2020 Unknown [id number] 1996 Unknown [id number] 2.16.84 0.1.737235.3.579.2.593 1996 Unknown [id number] 2.16. 840.1.473930.3.579.2.175 1996 Unknown [id number] 2.16.8 40.1.068993.3.579.2.128 1996 Unknown [id number] 2.16.8 40.1.728460.3.579.2.1285 1996 Unknown [id number] 2.16.8 40.1.520556.3.579.2.1285 1996 Unknown [id number] 2.16.8 40.1.974509.3.579.2.1285 1996 Unknown [id number] 2.16.8 40.1.771694.3.579.2.1285 1996 Unknown [id number] 2.16.8 40.1.520088.3.579.2.1285 1996 Unknown [id number] 2.16.8 40.1.192412.3.579.2.1285 1996 Unknown [id number] 2.16.8 40.1.177777.3.579.2.1285 1996 Unknown [id number] 2.16.8 40.1.588648.3.579.2.1285 1996 Unknown [id number] 2.16.8 40.1.202139.3.579.2.1285 1996 Unknown [id number] 2.16.8 40.1.521860.3.579.2.1285 1996 Unknown [id number] 2.16.8 40.1.788029.3.579.2.1285 1996 Unknown [id number] 2.16.84 0.1.841815.3.579.2.1258 1996 Unknown [id number] 2.16.84 0.1.286329.3.579.2.1258 1996 Unknown [id number] 2.16.84 0.1.823409.3.579.2.1258 1996 Unknown [id number] 2.16.84 0.1.503034.3.579.2.1258 1996 Unknown [id number] 2.16.84 0.1.124211.3.579.2.1259 1996 Unknown [id number] 2.16.840 .1.675057.3.579.2.1258 1996 Unknown [id number] 2.16.84 0.1.403335.3.579.2.9 1996 Unknown [id number] 2.16.84 0.1.570194.3.579.2.1258 1996 Unknown [id number] 2.16.84 0.1.500728.3.579.2.9 1996 Unknown [id number] 2.16.8 40.1.178582.3.579.2. 1996 Unknown [id number] 2.16.8 40.1.708519.3.579.2. 1996 Unknown [id number] 2.16.8 40.1.920470.3.579.2. 1996 Unknown [id number] 2.16.8 40.1.036223.3.579.2. 1996 Unknown [id number] 2.16.8 40.1.426695.3.579.2. 1996 Unknown [id number] 2.16.8 40.1.206600.3.579.2.8 1996 Unknown [id number] 2.16.8 40.1.204192.3.579.2. 1996 Unknown [id number] 2.16.8 40.1.813320.3.579.2. 1996 Unknown [id number] 2.16.8 40.1.043015.3.579.2.8 1959 Unknown [id number] Unknown [id number] Social History Date Type Detail Facility Start: 12-19-2022 End: 05-25-2023 Tobacco smoking status CAIS Never smoked tobacco [facility] Start: 05-25-2023 Tobacco use and exposure Smokeless tobacco non-user [facility] Start: 08-04-2023 End: 10-12-2023 Alcohol intake Ex-drinker (finding) [facility] Start: 03-21-2020 End: 08-23-2020 History of Social function [facility] Start: 03-21-2020 End: 08-23-2020 Alcohol Use Disorder Identification Test - Consumption [AUDIT-C] [facility] Frequency of Alcohol Consumption Never [facility] Start: 03-26-2023 [facility] Start: 1995 Sex Assigned At Female [facility] Start: 04-22-2021 Gender identity Identifies as female gender (finding) [facility] Start: 04-22-2021 Sexual orientation Heterosexual (finding) [facility] Start: 12-19-2022 Alcohol Comment occasional [facility] Tobacco smoking stat NHIS Tobacco smoking consumption unknown [facility] Goals Date Patient Goal Desired Activity /State Personal health goal Clinical Notes 08-04-2023 to 08-05-2024 Olivia Tuttle, PhD - 08/05/2024 10:46 AM HUMBERTO Waldrop - 06/29/2024 3:00 PM Monse Hassan LPN - 05/30/2024 1:00 PM Cady Andrea LPN - 05/03/2024 1:40 PM EDT Note Date & Type Note Facility 08-05-2024 History of Present illness Narrative Sisi Mora [id number] August 05, 2024 [facility] Bariatric and Metabolic [place] [facility] M61 Psychology Orientation/ Welcome Group CPT: NO CHARGE (informational seminar/no treatment provided) 1:00-2:00pm Psychology Orientation Seminar Patients attended an informational seminar as their first step in the BMI program. Patients provided verbal consent related to the use of virtual visits and were reminded of the limits of confidentiality. Provided basic information about bariatric surgery procedures, benefits, lifestyle changes needed, and psychological risks. Patients were oriented to the multidisciplinary process, role of psychology in the bariatric program, and various behavioral health services provided. Reviewed psychosocial adjustment issues common after surgery, and how such problems can be prevented with pre- and post-op care. Also discussed risks of alcohol, nicotine, and marijuana after surgery and reviewed requirements for cessation and toxicology screenings. Patients were encouraged to seek or intensify mental health treatment if needed, and provided with resources to find mental health care. Lastly, briefly reviewed benefits of food diaries and encouraged patients to begin identifying barriers to weight management by tracking intake. Orders for referrals and toxicology screens were placed if requested by the patient. Following the session, patients were provided with a copy of the presentation slides, a list of recommended readings including a link to the BMI manual, and a mental health documentation form to give to mental health providers, if applicable. Orders placed by patient request: NONE Plan: Patient to be scheduled for an individual psychology consultation visit. Olivia Tuttle, Ph.D. Psychologist documented in this encounter [facility] 06-29-2024 History of Present illness Narrative Reason for Appointment: Patient ID: Sisi Mora is a 28 y.o. female who presents for encounter for weight management Patient presents today for Weight Management Consult. MEDICATIONS Current Outpatient Medications Medication Instructions labetalol (NORMODYNE) 200 mg, Once metFORMIN XR (GLUCOPHAGE-XR) 500 mg, Oral, Daily with evening meal, Do not crush, chew, or split. omeprazole (PRILOSEC) 40 mg, Daily phentermine (ADIPEX-P) 37.5 mg, Oral, Daily before breakfast venlafaxine XR (EFFEXOR XR) 75 mg, Oral, Daily, Do not crush or chew. ALLERGIES Allergies Allergen Reactions Azithromycin Hives Other Reaction(s): other Ketorolac Tromethamine Hives Other Reaction(s): other, Unknown Other Sara contrast Tramadol Hives Other Reaction(s): other PROBLEMS Active Ambulatory Problems Diagnosis Date Noted Anxiety 02/12/2023 Bronchial asthma ([facility]) 02/12/2023 Depression ([facility]) 02/12/2023 Essential hypertension ([facility]) 02/12/2023 GERD (gastroesophageal reflux disease) 02/12/2023 Insomnia 02/12/2023 Maternal care for other known or suspected poor growth, unspecified trimester, not applicable or unspecified 05/28/2021 Migraine headache ([facility]) 02/12/2023 Morbid obesity ([facility]) 02/12/2023 PCOS (polycystic ovarian syndrome) 02/12/2023 Seasonal allergic rhinitis 02/12/2023 Resolved Ambulatory Problems Diagnosis Date Noted No Resolved Ambulatory Problems Past Medical History: Diagnosis Date History of Hyperthyroidism (CMS/HCC) Hypothyroidism (CMS/HCC) Insulin resistance Morbid obesity with body mass index (BMI) of 40.0 to 49.9 (CMS/HCC) Pap smear for cervical cancer screening 11/24/2022 HISTORY PAST MEDICAL HISTORY SOCIAL HISTORY Past Medical History: Diagnosis Date History of Hyperthyroidism (CMS/HCC) Hypothyroidism (CMS/HCC) Insulin resistance Morbid obesity with body mass index (BMI) of 40.0 to 49.9 (CMS/HCC) Body mass index (BMI) of 40.0 to [...] SECTION, LOW TRANSVERSE MOLE REMOVAL 12/2011 benign AK KNEE SCOPE,CLEAN/DRAIN Left 09/2014 TONSILLECTOMY TUBAL LIGATION 10/09/2023 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 All other systems reviewed and are negative. OBJECTIVE Objective: Physical Exam Constitutional: Appearance: Normal appearance. She is normal weight. HENT: Head: Normocephalic. Cardiovascular: Rate and Rhythm: Normal rate. Pulses: Normal pulses. Pulmonary: Effort: Pulmonary effort is normal. Breath sounds: Normal breath sounds. Abdominal: Palpations: Abdomen is soft. Musculoskeletal: General: Normal range of motion. Neurological: General: No focal deficit present. Mental Status: She is alert and oriented to person, place, and time. Psychiatric: Mood and Affect: Mood normal. Behavior: Behavior normal. Thought Content: Thought content normal. Judgment: Judgment normal. Vitals and nursing note reviewed. Vitals: Estimated body mass index is 46.27 kg/m as calculated from the following: Height as of 01/20/23: 5' 7 . Weight as of this encounter: 295 lb 6.4 oz. BP: 120/70 Patient's last menstrual period was 06/15/2024. ASSESSMENT & PLAN ICD-10-CM 1. Encounter for weight management Z76.89 Patient presents today for 2nd Adipex prescription. Patient desires additional weigh loss and she is currently taking metformin along with working out to achieve further results. She reported heart palpitations and discontinued use with adipex. She will follow up with Dr. Vargas for further weight loss management. She is not a Canidae for GLP -1 given history of thyroid nodules. Patient has not lost more than 5% of her initial body weight Follow Up: Patient is to return to office for annual well women exam unless needed otherwise. Documented by HUMBERTO Lovell on behalf of: HUMBERTO Lovell documented in this encounter [facility] 05-30-2024 History of Present illness Narrative Reason [...] Anxiety 02/12/2023 Bronchial asthma (CMS/HCC) 02/12/2023 Depression ([facility]) 02/12/2023 Essential hypertension ([facility]) 02/12/2023 GERD (gastroesophageal reflux disease) 02/12/2023 Insomnia 02/12/2023 Maternal care for other known or suspected poor growth, unspecified trimester, not applicable or unspecified 05/28/2021 Migraine headache ([facility]) 02/12/2023 Morbid obesity ([facility]) 02/12/2023 PCOS (polycystic ovarian syndrome) 02/12/2023 Seasonal allergic rhinitis 02/12/2023 Resolved Ambulatory Problems Diagnosis Date Noted No Resolved Ambulatory Problems Past Medical History: Diagnosis Date History of Hyperthyroidism ([facility]) Hypothyroidism ([facility]) Insulin resistance Morbid obesity with body mass index (BMI) of 40.0 to 49.9 ([facility]) Pap smear for cervical cancer screening 11/24/2022 HISTORY PAST MEDICAL HISTORY SOCIAL HISTORY Past Medical History: Diagnosis Date History of Hyperthyroidism ([facility]) Hypothyroidism ([facility]) Insulin resistance Morbid obesity with body mass index (BMI) of 40.0 to 49.9 ([facility]) Body mass index (BMI) of 40.0 to [...] SECTION, LOW TRANSVERSE MOLE REMOVAL 12/2011 benign AK KNEE SCOPE,CLEAN/DRAIN Left 09/2014 TONSILLECTOMY TUBAL LIGATION [...] nursing note reviewed. Exam conducted with a lye peel operator present. Vitals: Estimated body mass index [...] Contreras Mock DO documented in this encounter [facility] 05-03-2024 History of Present illness Narrative Reason [...] Diagnosis Date Noted Anxiety 02/12/2023 Bronchial asthma ([facility]) 02/12/2023 Depression ([facility]) 02/12/2023 Essential hypertension ([facility]) 02/12/2023 GERD (gastroesophageal reflux disease) 02/12/2023 Insomnia 02/12/2023 Maternal care for other known or suspected poor growth, unspecified trimester, not applicable or unspecified 05/28/2021 Migraine headache ([facility]) 02/12/2023 Morbid obesity ([facility]) 02/12/2023 PCOS (polycystic ovarian syndrome) 02/12/2023 Seasonal allergic rhinitis 02/12/2023 Resolved Ambulatory Problems Diagnosis Date Noted No Resolved Ambulatory Problems Past Medical History: Diagnosis Date History of Hyperthyroidism ([facility]) Hypothyroidism ([facility]) Insulin resistance Morbid obesity with body mass index (BMI) of 40.0 to 49.9 ([facility]) Pap smear for cervical cancer screening 11/24/2022 HISTORY PAST MEDICAL HISTORY SOCIAL HISTORY Past Medical History: Diagnosis Date History of Hyperthyroidism ([facility]) Hypothyroidism ([facility]) Insulin resistance Morbid obesity with body mass index (BMI) of 40.0 to 49.9 ([facility]) Body mass index (BMI) of 40.0 to [...] SECTION, LOW TRANSVERSE MOLE REMOVAL 12/2011 benign AK KNEE SCOPE,CLEAN/DRAIN Left 09/2014 TONSILLECTOMY TUBAL LIGATION [...] nursing note reviewed. Exam conducted with a lye peel operator present. Vitals: Estimated body mass index [...] Contreras Mock DO documented in this encounter [facility] 03-08-2024 History of Present illness Narrative Reason for Appointment: Patient ID: Sisi Mora is a 28 y.o. female who presents for post depression Patient presents today for Post Follow Up appointment. MEDICATIONS Current Outpatient Medications Medication Instructions Cyanocobalamin (B-12) 1000 MCG capsule 1 capsule, Oral, Daily escitalopram (LEXAPRO) 5 mg, Oral, Daily RT escitalopram (LEXAPRO) 10 mg, Oral, Daily labetalol (NORMODYNE) 200 mg, Oral, 2 times daily levothyroxine (SYNTHROID, LEVOXYL) 100 mcg, Oral, Daily before breakfast NIFEdipine (PROCARDIA) 30 mg, Oral, Daily omeprazole (PRILOSEC) 40 mg, Oral, Daily ALLERGIES Allergies Allergen Reactions Ketorolac Tromethamine Hives Other Sara contrast Ultram [Tramadol] Hives Zithromax [Azithromycin] Hives PROBLEMS Active Ambulatory Problems Diagnosis Date Noted Anxiety 02/12/2023 Bronchial asthma ([facility]) 02/12/2023 Depression ([facility]) 02/12/2023 Essential hypertension ([facility]) 02/12/2023 GERD (gastroesophageal reflux disease) 02/12/2023 Insomnia 02/12/2023 Maternal care for other known or suspected poor growth, unspecified trimester, not applicable or unspecified 05/28/2021 Migraine headache ([facility]) 02/12/2023 Morbid obesity ([facility]) 02/12/2023 PCOS (polycystic ovarian syndrome) 02/12/2023 Seasonal allergic rhinitis 02/12/2023 Resolved Ambulatory Problems Diagnosis Date Noted No Resolved Ambulatory Problems Past Medical History: Diagnosis Date History of Hyperthyroidism (CMS/HCC) Hypothyroidism ([facility]) Insulin resistance Morbid obesity with body mass index (BMI) of 40.0 to 49.9 ([facility]) Pap smear for cervical cancer screening 11/24/2022 HISTORY PAST MEDICAL HISTORY SOCIAL HISTORY Past Medical History: Diagnosis Date History of Hyperthyroidism (CMS/HCC) Hypothyroidism ([facility]) Insulin resistance Morbid obesity with body mass index (BMI) of 40.0 to 49.9 ([facility]) Body mass index (BMI) of 40.0 to [...] SECTION, LOW TRANSVERSE MOLE REMOVAL 12/2011 benign AK KNEE SCOPE,CLEAN/DRAIN Left 09/2014 TONSILLECTOMY TUBAL LIGATION [...] nursing note reviewed. Exam conducted with a lye peel operator present. Vitals: Estimated body mass index is 44.5 kg/m as calculated from the following: Height as of 01/20/23: 5' 7 . Weight as of this encounter: 284 lb 1.9 oz. BP: 130/80 Patient's last menstrual period was 02/22/2024. ASSESSMENT & PLAN ICD-10-CM 1. 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 Pt has two small children and is very emotional, feels angry all the time, anxiety. Pt to come off lexapro 15mg- this week 10 mg of lexapro with effexor, next week 5 mg with effexor and the following just effexor. Pt to contact clinical sciences professor about bp meds. Pt to return for annual- and follow up with medication. Pt denies suicidal and homicidal ideations. Documented by Virginia Andrea LPN on behalf of: Contreras Mock DO documented in this encounter [facility] 12-14-2023 Note Entered by Sindy Cormier on December 14, 2023 09:59:29 EDT From: Sindy Cormier To: [facility] Sent: 12/14/2023 09:59:29 EDT Subject: Medication Management Submitted: Order:omeprazole (omeprazole 40 mg oral delayed release capsule) 1 cap(s) Oral Daily Qty: 30 cap(s) Days Supply: 30 Refills: 5 Substitutions Allowed Route To Pharmacy - [place] [address] Signed by Sindy Cormier 12/14/2023 09:59:00 EDT Submitted: Complete:omeprazole (omeprazole 40 mg oral delayed release capsule) Signed by Sindy Cormier 12/14/2023 09:59:00 EDT Not Approved: New Rx to follow omeprazole (Omeprazole 40 MG Oral Capsule Delayed Release) Take 1 capsule by mouth once daily Qty: 30 cap(s) Days Supply: 30 Refills: 0 Substitutions Allowed Route To Pharmacy - [facility] Signed by Sindy Cormier --------- From: [place] [address] To: Azael LOPEZ, Alfonzo Sumner MD Sent: December 13, 2023 5:45:21 AM CDT Subject: Medication Management Due: December 14, 2023 12:32:47 AM CDT On Hold Pending Signature Dispensed Drug: omeprazole (omeprazole 40 mg oral delayed release capsule), Take 1 capsule by mouth once daily Quantity: 30 cap(s) Days Supply: 30 Refills: 0 Substitutions Allowed Notes from Pharmacy: --------- [facility] 10-27-2023 Miscellaneous Notes This note was copied from a baby's chart. Met with mom in infant's room. States that pumping is going a little better. She was able to power pump and see a small increase in supply, getting about 2 ounces every three hours. She plans on trying another round of power pumping to see if she continues to see improvement. Denies pain or breakdown. No further questions or concerns, encouraged to call out for any other assistance. documented in this encounter [facility] 10-27-2023 Obstetrics Note This note was copied from a baby's chart. Met with mom in 's room. States that pumping is going a little better. She was able to power pump and see a small increase in supply, getting about 2 ounces every three hours. She plans on trying another round of power pumping to see if she continues to see improvement. Denies pain or breakdown. No further questions or concerns, encouraged to call out for any other assistance. [facility] 10-22-2023 Miscellaneous Notes This note was copied from a baby's chart. Met with mother at infants bedside. States pumping is going well and supply remains stable. To help boost supply recommend power pumping. Power Pumping Power pumping is a great way to boost supply, as it simulates baby cluster feeding at the breast. Do this 1-3 times a day to boost supply. You may not see large volumes at the time of power pumping, but over a few days of adding in power pumping sessions, you should see an increase in milk production. Power pumping in the business analysis specialist hours is very effective, because hormone levels peak at this time to maximize milk production. Instruction: Pump for 20 minutes on normal settings. Rest for 10 minutes (you do not need to clean your pump or store the milk) Pump for 10 minutes Rest for 10 minutes Pump for 10 minutes Combine milk from pump sessions and store, clean pump parts. Feels flange fit is appropriate, will call out for assistance when ready. Mother plans to try cookies. Questions answered, encouragement given. documented in this encounter [facility] 10-22-2023 Obstetrics Note This note was copied from a baby's chart. Met with mother at infants bedside. States pumping is going well and supply remains stable. To help boost supply recommend power pumping. Power Pumping Power pumping is a great way to boost supply, as it simulates baby cluster feeding at the breast. Do this 1-3 times a day to boost supply. You may not see large volumes at the time of power pumping, but over a few days of adding in power pumping sessions, you should see an increase in milk production. Power pumping in the business analysis specialist hours is very effective, because hormone levels peak at this time to maximize milk production. Instruction: Pump for 20 minutes on normal settings. Rest for 10 minutes (you do not need to clean your pump or store the milk) Pump for 10 minutes Rest for 10 minutes Pump for 10 minutes Combine milk from pump sessions and store, clean pump parts. Feels flange fit is appropriate, will call out for assistance when ready. Mother plans to try cookies. Questions answered, encouragement given. [facility] 10-20-2023 Miscellaneous Notes This note was copied from a baby's chart. Met with mother at infants bedside. States pumping is going well and supply is increasing. Mother is able to get 1 1/2 - 2 oz every 3 hours. Reinforced pumping guidelines and importance of pumping how infant eats. Encouraged pumping every 2-3 hours for 15-20 minutes at suction level that is comfortable. Mom will only produce the amount of breastmilk that her baby demands. It is true that hormones drive the production of very early breastmilk, called colostrum. However, in order to keep producing breastmilk, your baby needs to keep sucking from the breast. The overall level of milk production varies based on the babys amount of sucking and how much milk is actually removed. Mother has been using home pump. Obtained hospital pump for use at bedside. Questions answered, encouragement given. documented in this encounter [facility] 10-20-2023 Obstetrics Note This note was copied from a baby's chart. Met with mother at infants bedside. States pumping is going well and supply is increasing. Mother is able to get 1 1/2 - 2 oz every 3 hours. Reinforced pumping guidelines and importance of pumping how eats. Encouraged pumping every 2-3 hours for 15-20 minutes at suction level that is comfortable. Mom will only produce the amount of breastmilk that her baby demands. It is true that hormones drive the production of very early breastmilk, called colostrum. However, in order to keep producing breastmilk, your baby needs to keep sucking from the breast. The overall level of milk production varies based on the babys amount of sucking and how much milk is actually removed. Mother has been using home pump. Obtained hospital pump for use at bedside. Questions answered, encouragement given. [facility] 10-16-2023 Miscellaneous Notes This note was copied from a baby's chart. Met with mother at infant's bedside. States that pumping has been going well, she gets about an ounce each time she pumps and is trying to pump regularly. She denies any pain or discomfort. No immediate questions or concerns, encouraged to call out for any other assistance. documented in this encounter [facility] 10-16-2023 Obstetrics Note This note was copied from a baby's chart. Met with mother at infant's bedside. States that pumping has been going well, she gets about an ounce each time she pumps and is trying to pump regularly. She denies any pain or discomfort. No immediate questions or concerns, encouraged to call out for any other assistance. [facility] 10-15-2023 Miscellaneous Notes This note was copied from a baby's chart. Met with mother at 's bedside. States pumping is going well and milk supply is increasing. Encouraged to reach out to with questions or concerns. Support given. Step 1: Infant stable and able to tolerate Zymg-jn-Ukhc care Interventions Baby No weight or gestational age limitations, following IVH protocol Follow Aexb-mt-Pzot Care Policy Length should be done as tolerated by the infant. At least once daily, increase as tolerated. Mother Put Jgzr-uv-Hkbd at least once daily, when possible documented in this encounter [facility] 10-15-2023 Obstetrics Note This note was copied from a baby's chart. Met with mother at 's bedside. States pumping is going well and milk supply is increasing. Encouraged to reach out to with questions or concerns. Support given. Step 1: Infant stable and able to tolerate Ranf-qu-Rswa care Interventions Baby No weight or gestational age limitations, following IVH protocol Follow Nouv-bt-Yoru Care Policy Length should be done as tolerated by the infant. At least once daily, increase as tolerated. Mother Put Baqf-fs-Ubrs at least once daily, when possible [facility] 10-15-2023 History of Present illness Narrative Video Visit via Real-time Synchronous Audiovisual Provider Location: [facility] [address] [facility] [address] Patient Location: Other Patient Location Aviation Maintenance Instructor: None Video Visit Consent Statement: I discussed [...] that there are some limitations compared to vwmj-jn-kacl evaluations. We elected to proceed. Subjective: Sisi [...] readings are as follows: 10/11: 140/92, 135/78 42: 130s/80s 4/3: 130s/70s General: well appearing, no acute distress. Neuro: Alert and oriented Respirations: even, non labored Assessment and Plan: Chronic Hypertension BP well controlled on current medication Plans to follow up with primary OB, has appointment next week History of FLORINA with SF History of C/S Meeting post op milestones as expected Pre-eclamptic warnings reviewed. Call provider donkey doctor for headache unresolved with tylenol, visual change, epigastic pain or significant change in swelling in her hands feet or face. Let the office know if BP readings consistently over 140/90 (either number). Call provider donkey doctor for BP greater than 160/110 (either number). Hypotensive warnings reviewed - call if experiencing dizziness, weakness or fainting. CARLI Denny APRN-CNP 10/15/23 0922 documented in this encounter [facility] 10-14-2023 Miscellaneous Notes This note [...] with any needs. documented in this encounter [facility] 10-14-2023 Obstetrics Note This note was copied from a baby's chart. Met with mother at infant's bedside. States pumping is going well. She is getting about 1 ounce every 3 hours without any pain or discomfort. Encouraged skin to skin when she is able. No questions or concerns at this time. Encouraged to reach out with any needs. [facility] 08-31-2023 History of Present illness Narrative [facility] lab results This patient was diagnosed with [...] conditions (Bartter type 2 & cystic fibrosis [id number]) Our genetic counselor reviewed the results with [...] this patient's care. Yanelis Garrido MD Professor, [facility] Maternal Medicine documented in this encounter [facility] 08-20-2023 History of Present illness [...] concerns come up. documented in this encounter [facility] 08-20-2023 History of Present illness Narrative Summary: Carrier Screening Results Called and left VM for Sisi requesting a call back regarding carrier screening results. documented in this encounter [facility] 08-18-2023 History of Present illness Narrative Reason for Appointment: Patient ID: Sisi Mora is a 27 y.o. female who presents for Routine Visit Patient presents today for Return OB appointment. Current Medications: has a current medication list which includes the following prescription(s): b-12, labetalol, levothyroxine, metoclopramide, omeprazole, and pyridoxine. Medical History: Active Ambulatory Problems Diagnosis Date Noted Anxiety 02/12/2023 Bronchial asthma ([facility]) 02/12/2023 Depression ([facility]) 02/12/2023 Essential hypertension ([facility]) 02/12/2023 GERD (gastroesophageal reflux disease) 02/12/2023 Insomnia 02/12/2023 Maternal care for other known or suspected poor growth, unspecified trimester, not applicable or unspecified 05/28/2021 Migraine headache ([facility]) 02/12/2023 Morbid obesity ([facility]) 02/12/2023 PCOS (polycystic ovarian syndrome) 02/12/2023 Seasonal allergic rhinitis 02/12/2023 Resolved Ambulatory Problems Diagnosis Date Noted No Resolved Ambulatory Problems Past Medical History: Diagnosis Date History of Hyperthyroidism ([facility]) Hypothyroidism ([facility]) Insulin resistance Morbid obesity with body mass index (BMI) of 40.0 to 49.9 ([facility]) Pap smear for cervical cancer screening 11/24/2022 [...] SECTION, LOW TRANSVERSE MOLE REMOVAL 12/2011 benign AK KNEE SCOPE,CLEAN/DRAIN Left 09/2014 TONSILLECTOMY TUMOR REMOVAL [...] nursing note reviewed. Exam conducted with a lye peel operator present. Vitals: Estimated body mass index [...] Delivery: 12/17/23. Pt doing well- reviewed recent [facility] appt. Pt to return to [facility] in 2 weeks. Pt to return in 4 weeks for scheduled OB appt. Documented by Virginia Andrea LPN on behalf of: Contreras Mock DO documented in this encounter [facility] 08-17-2023 Miscellaneous Notes Patient returned call states she is being seen somewhere else. documented in this encounter [facility] 08-17-2023 Telephone encounter Note Patient returned call states she is being seen somewhere else. [facility] 08-17-2023 Miscellaneous Notes Please call us back to get rescheduled for your jordan. documented in this encounter [facility] 08-17-2023 Telephone encounter Note Please call us back to get rescheduled for your jordan. [facility] 08-05-2023 Miscellaneous Notes Left message for patient that an additional lab has been ordered that needs to be drawn at a [facility] lab only. Call back phone number given if patient has questions. Patient returned call to [facility] and will have additional lab done at a [facility] lab. Patient also had concerns regarding future Doppler US being done here at [facility]. Patient will do initial Doppler here and may need to do Hanska due to son having surgery in [place]. documented in this encounter [facility] 08-05-2023 Telephone encounter Note Left message for patient that an additional lab has been ordered that needs to be drawn at a [facility] lab only. Call back phone number given if patient has questions. [facility] 08-05-2023 Telephone encounter Note Patient returned call to [facility] and will have additional lab done at a [facility] lab. Patient also had concerns regarding future Doppler US being done here at [facility]. Patient will do initial Doppler here and may need to do Hanska due to son having surgery in [place]. [facility] History of Present illness Narrative [...] lab is drawn at 1 of the [facility] locations because it seems that result availability and of test and correctly performed test is more likely when ordered through our Internal lab. I will ask our nursing staff to contact the patient and relay instructions. Yanelis Garrido MD Professor, [facility] Maternal Medicine documented in this encounter [facility] 08-04-2023 History of Present illness Narrative Lab drawn for cell-free DNA testing. Patient tolerated well. (Lab came to draw ) documented in this encounter [facility] 08-04-2023 Miscellaneous Notes Patient refused to schedule umb doppler in 3 weeks. Son is having surgery and she will call at a later time to schedule. documented in this encounter [facility] 08-04-2023 Telephone encounter Note Patient refused to schedule umb doppler in 3 weeks. Son is having surgery and she will call at a later time to schedule. [facility] 08-04-2023 History of Present illness [...] was 45 minutes. 34 minutes were direct [id number] for counseling and coordination of care during visits itself. An additional 4 minutes or for same day preparation to see the patient. Another 7 minutes were needed were needed to prepare report and or to perform other duties to complete visit. Thank you for sending this patient. Yanelis Garrido MD Maternal Medicine Professor, [facility] [phone]- Office [phone]- Personal Cell Phone Office Note: Chronic hypertension [...] OB provider team. documented in this encounter [facility] Evaluation note Diagnosis IUGR (intrauterine growth restriction) affecting care of mother, second trimester, not applicable or unspecified fetus- Primary History of delivery, currently with history of pre-term labor 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 trimester Chronic hypertension affecting [facility] Diagnosis IUGR (intrauterine growth restriction) affecting care of mother, second trimester, not applicable or unspecified fetus- Primary History of delivery, currently with history of pre-term labor 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 trimester Hx of preeclampsia, prior , currently , second trimester documented in this encounter [facility]* Diagnosis IUGR (intrauterine growth restriction) affecting care of mother, second trimester, not applicable or unspecified fetus- Primary Maternal care for other known or suspected poor growth, unspecified trimester, not applicable or unspecified [facility]* Diagnosis Second trimester state, incidental Diabetes mellitus screening Screening for diabetes mellitus Thyroid disease affecting (CMS/[facility]) documented in this encounter [facility]* Diagnosis IUGR (intrauterine growth restriction) affecting care of mother, second trimester, not applicable or unspecified fetus Chronic hypertension affecting Hx of preeclampsia, prior , currently , second trimester [facility]* Diagnosis IUGR (intrauterine growth restriction) affecting care of mother, second trimester, not applicable or unspecified fetus- Primary Chronic hypertension affecting Hx of preeclampsia, prior , currently , second trimester [facility]* Diagnosis Pre-eclampsia superimposed on chronic hypertension, delivered- Primary History of Other postprocedural status documented in this encounter [facility]* Diagnosis Well woman exam with [...] Other abnormal glucose [facility] Diagnosis Encounter for weight management Anxiety Anxiety state, unspecified [facility]* Diagnosis Post depression (CMS/HCC) Mental disorders of mother, complicating , childbirth, or the puerperium, unspecified as to episode of care [facility] Diagnosis Encounter for weight management [facility]* Diagnosis Psychological factors affecting medical condition- Primary Psychic factors associated with diseases classified elsewhere Obesity, unspecified class, unspecified obesity type, unspecified whether serious comorbidity present [facility] filedocumented in this encounter[facility] SystemInstructionsNot on filedocumented in this encounterJ.[facility]. [facility] SystemInstructionsNot on filedocumented in this encounterJ.W. [facility] SystemInstructionsNot on filedocumented in this encounterJ.[facility]. [facility] InstructionsNot on filedocumented in this encounterJ.[facility]. [facility] InstructionsNot on filedocumented in this encounterJ.[facility]. [facility] InstructionsNot on filedocumented in this encounterJ.W. [facility] SystemReason for visit Narrative* Consultation (Routine) - Pending Review Specialty Diagnoses / Procedures Referred By Ashtyn t Referred To Contact Obstetrics and Gynecology Diagnoses Pre-eclampsia, severe, with delivery Andrew Emery MD [id number] [place] [address] Oma Novak, RECREATION WORKER-[facility] [address] [place] [address] Referral ID Status Reason Start Date Expiration Date V isits Requested Visits Authorized [id number] Pending Review 10/12/2023 10/11/2024 1 1 [facility] Summary Purpose Family History No [...] Code 05/28/2021 11:19 AM 06/05/2021 10:50 PM Date Activated Date Inactivated Comments 09/27/2023 5:00 PM 10/12/2023 7:19 PM Date Activated Date Inactivated Comments 05/28/2021 11:19 AM 06/05/2021 10:50 PM Reason for Referral Specialty Diagnoses / Procedures Referred By Ashtyn chand Referred To Contact Maternal and Medicine Diagnoses IUGR (intrauterine growth restriction) affecting care of mother, second trimester, not applicable or unspecified fetus History of delivery, currently 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 trimester Chronic hypertension affecting Procedures US MF with or without consult Yanelis Garrido MD [address] [place] [address] [facility]aternal [facility] [address] [place] [address] Referral ID Status Reason Start Date Expiration Date V isits Requested Visits Authorized [id number] Pending Review 08/04/2023 08/03/2024 1 1 Additional Source Comments INFORMATION SOURCE (unrecogn ized section and content) DATE CREATED AUTHOR 01/05/2018 [facility] DATE CREATED AUTHOR AUTHOR'S ORGANIZ ATION 11/25/2022 [facility] DATE CREATED AUTHOR AUTHOR'S ORGANIZ ATION 09/25/2023 [facility] DATE CREATED AUTHOR AUTHOR'S ORGANIZ ATION 10/28/2023 [facility] DATE CREATED AUTHOR AUTHOR'S ORGANIZ ATION 03/10/2024 [facility] EPIC DATE CREATED AUTHOR AUTHOR'S ORGANIZ ATION 07/03/2024 [facility] EPIC DATE CREATED AUTHOR AUTHOR'S ORGANIZ ATION 08/09/2024 [facility] Reason for Visit (unrecogniz ed section and content) Reason Onset Date Comments Appointment 08/04/2023 Reason Comments Hypertension Reason Comments Routine Visit Reason Onset Date Comments Outgoing Call 08/20/2023 Reason Comments Well Women Visit depression follow up Reason Comments Weight Management Reason Comments post depression Reason Comments encounter for weight management Reason Comments Obesity Care Teams (unrecognized sec tion and content) Delinquent Tax Collector Relationship Specialty Start Date End Date Alfonzo Guerra MD [address] [place] [phone] PCP - General Family Medicine 04/05/20 Delinquent Tax Collector Relationship Specialty Start Date End Date Alfonzo Guerra MD [address] [place] [phone] PCP - General Family Medicine 04/05/20 Delinquent Tax Collector Relationship Specialty Start Date End Date Alfonzo Guerra MD [address] [place] [id number] PCP - General Family Medicine 04/05/20 Delinquent Tax Collector Relationship Specialty Start Date End Date Alfonzo Guerra MD [address] [place] [phone] PCP - General Family Medicine 04/05/20 Delinquent Tax Collector Relationship Specialty Start Date End Date Alfonzo Guerra MD [address] [place] [id number] PCP - General Family Medicine 04/05/20 Delinquent Tax Collector Relationship Specialty [place] [address] [place] [id number] PCP - General Family Medicine 04/05/20 Delinquent Tax Collector Relationship Specialty Start Date End Date Alfonzo Guerra MD [address] [place] [address] PCP - General Family Medicine 04/05/20 Delinquent Tax Collector Relationship Specialty Start Date End Date Alfonzo Guerra MD [address] [place] [address] PCP - General Family Medicine 12/22/22 Delinquent Tax Collector Relationship Specialty Start Date End Date Alfonzo Guerra MD [address] [place] [id number] PCP - General Family Medicine 04/05/20 Delinquent Tax Collector Relationship Specialty Start Date End Date Alfonzo Guerra MD [address] [place] [id number] PCP - General Family Medicine 12/22/22 Delinquent Tax Collector Relationship Specialty Start Date End Date Alfonzo Guerra MD [address] [place] [id number] PCP - General Family Medicine 12/22/22 Delinquent Tax Collector Relationship Specialty Start Date End Date Alfonzo Guerra MD [address] [place] [address] PCP - General Family Medicine 12/22/22 Delinquent Tax Collector Relationship Specialty Start Date End Date Alfonzo Guerra MD [address] [place] [id number] PCP - General Family Medicine 12/22/22 Delinquent Tax Collector Relationship Specialty Start [place] [address] [place] [id number] PCP - General Family Medicine 12/22/22 Delinquent Tax Collector Relationship Specialty Start Date End Date Alfonzo Guerra MD [address] [place] [address] PCP - General Family Medicine 12/22/22 Source Comments (unrecognize d section and content) In the event this informatio n is protected by the Federal Confidentiality of Alcohol and Drug Abuse Patient Records regulations: The Federal rules restrict any use of the information to criminally investigate or prosecute any alcohol or drug abuse patient.[facility] FOR RECORDS PERTAINING TO PATIENTS WHO ARE [...] BE BASED ON THE PRIMARY CLINICAL RECORDS. [employer] provides no warranty or guarantee of the accuracy or completeness of information in this document.
--- NOTE | 2024-08-15 14:25 | ED.NAVMDI1 ---
HPI - Nausea/Vomiting/Diarrhea General Chief complaint: Nausea/Vomiting/Diarrhea Stated complaint: WEAKNESS, VOMITING, FAINTED, HEAD INJURY Time Seen by Provider: 08/15/24 14:16 Source: patient Mode of arrival: walk-in History of Present Illness HPI Narrative: 28 year old female presents to the ED for N/V/D, chills, body aches, fatigue. Onset was yesterday. She became lightheaded and dizzy today. Reports having a syncopal episode due to the dizziness. She did hit her head. Denies vision changes, fever, abd pain, cough, congestion. Denies pain to her head, neck, back. Her significant other was ill with the same yesterday. She is on her menstrual period. Related Data Home Medications ?Medication ?Instructions ?Recorded ?Confirmed albuterol sulfate 90 mcg/actuation 1 inh inhalation Q6H PRN shortness 07/02/23 08/15/24 aerosol inhaler of breath or wheezing labetalol 200 mg tablet 200 mg PO DAILY 07/02/23 08/15/24 omeprazole 20 mg capsule,delayed 20 mg PO DAILY 06/05/24 08/15/24 release venlafaxine 75 mg tablet 75 mg PO DAILY 06/05/24 08/15/24 metformin 500 mg tablet 500 mg PO DAILY 08/15/24 08/15/24 Previous Rx's ?Medication ?Instructions ?Recorded ondansetron 4 mg disintegrating 4 mg PO Q8H PRN nausea and 08/15/24 tablet vomiting 4 days #12 tabs Allergies Allergy/AdvReac Type Severity Reaction Status Date / Time Iodinated Contrast Media Allergy Unknown Unknown Verified 08/15/24 16:14 azithromycin (From Zithromax) Allergy Hives Verified 08/15/24 14:12 ketorolac (From Toradol) Allergy Hives Verified 08/15/24 14:12 tramadol (From Ultram) Allergy Hives Verified 08/15/24 14:12 walnuts Allergy Severe Anaphylaxis Uncoded 08/15/24 14:12 Review of Systems ROS Constitutional Reports: chills and fatigue; Denies: fever Ears, nose, mouth, and throat Denies: throat pain or neck pain Cardiovascular Denies: chest pain Respiratory Denies: shortness of breath or cough Gastrointestinal Reports: nausea, vomiting and diarrhea; Denies: abdominal pain Genitourinary Denies: painful urination or urinary frequency Musculoskeletal Denies: back pain, neck pain or extremity pain Integumentary/Breast Denies: rash Neurological Reports: dizziness; Denies: headache, numbness in extremities, weakness in extremities, lack of coordination or confusion PFSH [facility] Social History Little interest or pleasure in doing things: not at all Feeling down, depressed, or hopeless: not at all Exam Constitutional Vital Signs, click to edit/add: Last Vital Signs Temp 98.1 F 08/15/24 14:13 Pulse 96 H 08/15/24 14:13 Resp 20 08/15/24 14:13 BP 158/98 H 08/15/24 14:13 Pulse Ox 98 08/15/24 14:13 O2 Del Method Room Air 08/15/24 14:13 Common normals: no apparent distress and oriented x3 General appearance: cooperative and diaphoretic HENMT Common normals: normocephalic and head/scalp atraumatic Head and scalp: no Padron's sign and no raccoon eyes Face and sinus: normal facial exam Nose: external nose normal Mouth: oral and palatal mucosa normal and lip normal Throat: posterior oropharynx normal and tonsils normal Eye Common normals: conjunctivae normal and no scleral icterus Neck & C-Spine Common normals: supple Cervical spine: no cervical spine tenderness and no paracervical muscle tenderness Chest Chest: symmetrical chest wall rise Respiratory Common normals: normal respiratory effort Effort & inspection: able to speak in complete sentences and symmetric chest movement Cardio Common normals: regular rate and regular rhythm Back & Pelvis Thoracic spine/upper back: no thoracic spinal tenderness and no paraspinal muscle tenderness Lumbar spine/lower back: no lumbar spinal tenderness and no paraspinal muscle tenderness Neuro Common normals: oriented x3, CN's II-XII intact bilaterally, moves all extremities and no focal motor deficits Sensorium/orientation: awake and alert Speech: speech normal Course Vital Signs Vital signs: Vital Signs Temperature 98.1 F 08/15/24 14:13 Pulse Rate 96 H 08/15/24 14:13 Respiratory Rate 20 08/15/24 14:13 Blood Pressure 158/98 H 08/15/24 14:13 Pulse Oximetry 98 08/15/24 14:13 Oxygen Delivery Method Room Air 08/15/24 14:13 Temperature 98.1 F 08/15/24 14:13 Pulse Rate 96 H 08/15/24 14:13 Respiratory Rate 20 08/15/24 14:13 Blood Pressure 158/98 H 08/15/24 14:13 Pulse Oximetry 98 08/15/24 14:13 Oxygen Delivery Method Room Air 08/15/24 14:13 MDM - Nausea/Vomiting/Diarrhea MDM Narrative Medical decision making narrative: WBC count was 28.7. CT scan was negative for acute findings. BUN was 19, creatinine 1.06. Findings were discussed. She was given medication with improvement. She was tolerating ice chips. A prescription was provided for Zofran. Follow up with pcp for a recheck, further evaluation and treatment. Differential Diagnosis Differential diagnosis: Likely gastroenteritis, dehydration and other (viral illness) Medical Records Attestation: I reviewed the patient's medical records. Lab Data Attestation: I reviewed the patient's lab results. Labs: Lab Results 08/15/24 08/15/24 08/15/24 Range/Units 14:43 14:46 15:55 WBC 28.7 H (4.0-11.0) 10^3/uL RBC 5.72 H (4.20-5.40) 10^6/uL Hgb 16.3 H (12.0-16.0) g/dL Hct 48.5 H (36.0-48.0) % MCV 84.8 (81.0-99.0) fL MCH 28.5 (26.7-34.0) pg MCHC 33.6 (29.9-35.2) g/dL RDW 13.0 (11.0-15.0) % Plt Count 504 H (150-450) 10^3/uL MPV 9.2 L (9.5-13.5) fL Seg Neuts % (Manual) 87.0 H (43.0-75.0) Lymphocytes % (Manual) 8.0 L (20.5-60.0) % Monocytes % (Manual) 4.0 (1.7-12.0) % Eosinophils % (Manual) 1.0 (0.9-7.0) % Basophils % (Manual) 0.0 L (0.2-2.0) % Neutrophils # (Manual) 24.96 H (1.4-6.5) 10^3/uL Lymphocytes # (Manual) 2.29 (1.20-3.80) 10^3/uL Monocytes # (Manual) 1.14 H (0.30-0.80) 10^3/uL Eosinophils # (Manual) 0.28 (0.00-0.70) 10^3/uL Basophils # (Manual) 0.00 (0.00-0.10) 10^3/uL Sodium 138 (136-145) mmol/L Potassium 4.3 (3.5-5.1) mmol/L Chloride 104 (98-107) mmol/L Carbon Dioxide 21.2 (21.0-32.0) mmol/L Anion Gap 17.1 BUN 19.0 H (7.0-18.0) mg/dL Creatinine 1.06 H (0.55-1.02) mg/dL Est GFR ( Amer) >60 (>=60 mL/min/1.73m^2) Est GFR (Non-Af Amer) >60 (>=60 mL/min/1.73m^2) BUN/Creatinine Ratio 17.9 Glucose 144 H (74-106) mg/dL Calcium 10.0 (8.5-10.1) mg/dL Total Bilirubin 0.5 (0.2-1.0) mg/dL AST 21 (15-37) U/L ALT 34 (14-59) U/L Alkaline Phosphatase 76 (46-116) U/L Total Protein 9.2 H (6.4-8.2) g/dL Albumin 4.5 (3.4-5.0) g/dL Globulin 4.7 g/dL Albumin/Globulin Ratio 1.0 Serum HCG, Qual Negative (NEGATIVE) Urine Color Brown A (YELLOW) Urine Clarity Clear (CLEAR) Urine pH 5.0 (5.0-9.0) Ur Specific Benton >=1.030 A (1.005-1.025) Urine Protein 100 A (NEG/TRACE) mg/dL Urine Glucose (UA) Negative (NEGATIVE) mg/dL Urine Ketones 15 A (NEGATIVE) mg/dL Urine Occult Blood Large A (NEGATIVE) Urine Nitrite Negative (NEGATIVE) Urine Bilirubin Small A (NEGATIVE) Urine Urobilinogen 0.2 (0.2-1.0) EU/dL Ur Leukocyte Esterase Negative (NEGATIVE) Urine RBC >100 A (0-2) #/HPF Urine WBC 2-5 A (NONE SEEN) #/HPF Ur Squamous Epith Cells Few A (NONE/RARE) #/LPF Urine Crystals None seen (None Seen) #/HPF Urine Bacteria Trace A (NONE SEEN) #/HPF Urine Casts Seen A (NONE SEEN) #/LPF Hyaline Casts Rare Urine Mucus Trace A (NONE SEEN) Ur Culture Indicated? No Influenza Type A Ag Negative Influenza Type B Ag Negative Imaging Data CT scan - abdomen: Attestation: I have reviewed the pertinent imaging results. Radiologist's impression: ITS Impressions Abdomen/Pelvis CT 08/15/24 16:12 IMPRESSION: 1. No abnormal or suspicious findings to account for patient's symptoms. Electronically authenticated by: ORION LAM Date: 08/15/2024 16:42 Discharge Plan Discharge Chief Complaint: Nausea/Vomiting/Diarrhea Clinical Impression: Nausea vomiting and diarrhea Patient Disposition: Home, Self-Care Condition: Good Mode of Transportation: Private Vehicle Prescriptions / Home Meds: New ondansetron 4 mg tablet,disintegrating 4 mg PO Q8H PRN (Reason: nausea and vomiting) 4 Days Qty: 12 0RF No Action albuterol sulfate 90 mcg/actuation HFA aerosol inhaler 1 inh inhalation Q6H PRN (Reason: shortness of breath or wheezing) labetalol 200 mg tablet 200 mg PO DAILY venlafaxine 75 mg tablet 75 mg PO DAILY omeprazole 20 mg capsule,delayed release(DR/EC) 20 mg PO DAILY metformin 500 mg tablet 500 mg PO DAILY Print Language: Slovak Instructions: Acute Nausea and Vomiting (ED), Acute Diarrhea (ED), Acute Abdominal Pain (ED) Additional Instructions: Return to the ER for worsening symptoms. Referrals: JOHN GUERRA [Primary Care Provider] - 1 week Discharge Date/Time: 08/15/24 18:08
[2024-08-15] MEDS: 0.9 % SODIUM CHLORIDE 1,000 ML 999 ML IV (14:45)
[2024-08-15] MEDS: ONDANSETRON PF 4 MG/2 ML VIAL IV ×2 (14:45→15:37)
[2024-08-15 14:53] LABS: Hematocrit 48.5 % (36.0-48.0); Hemoglobin 16.3 g/dL (12.0-16.0); Mean Corpuscular HGB Conc 33.6 g/dL (29.9-35.2); Mean Corpuscular Hemoglobin 28.5 pg (26.7-34.0); Mean Corpuscular Volume 84.8 fL (81.0-99.0); Mean Platelet Volume 9.2 fL (9.5-13.5); Platelet Count 504 10^3/uL (150-450); Red Blood Count 5.72 10^6/uL (4.20-5.40); White Blood Count 28.7 10^3/uL (4.0-11.0)
[2024-08-15 15:08] LABS: Influenza Virus A Antigen Negative; Influenza Virus B Antigen Negative; Internal Control Within Normal Limits
[2024-08-15 15:12] LABS: Alanine Aminotransferase 34 U/L (14-59); Albumin Level 4.5 g/dL (3.4-5.0); Alkaline Phosphatase 76 U/L (46-116); Anion Gap 17.1; Aspartate Amino Transferase 21 U/L (15-37); BUN Creatinine Ratio 17.9; Bilirubin Total 0.5 mg/dL (0.2-1.0); Carbon Dioxide 21.2 mmol/L (21.0-32.0); Chloride 104 mmol/L (98-107); Estimated GFR (African America >60 (>=60 mL/min/1.73m^2); Estimated GFR (Non-African Ame >60 (>=60 mL/min/1.73m^2); Globulin 4.7 g/dL; Glucose 144 mg/dL (74-106); Potassium 4.3 mmol/L (3.5-5.1); Sodium 138 mmol/L (136-145); Total Protein 9.2 g/dL (6.4-8.2)
[2024-08-15 15:22] LABS: Eosinophils Absolute Manual 0.28 10^3/uL (0.00-0.70); Lymphocytes Absolute Manual 2.29 10^3/uL (1.20-3.80); Monocytes Absolute Manual 1.14 10^3/uL (0.30-0.80); Segmented Neut Absolute Manual 24.96 10^3/uL (1.4-6.5)
[2024-08-15] MEDS: FAMOTIDINE/PF 20 MG/2 ML VIAL IV (15:37)
[2024-08-15 15:50] LABS: HCG Qualitative NEGATIVE (NEGATIVE); Internal Control Within Normal Limits
--- NOTE | 2024-08-15 16:12 | CT_ITS ---
[address] [address] Patient Name: BRAULIO CHAKRABORTY MRN: [id number] date: 1995 Sex: F Assigned Patient Location: ER Current Patient Location: Accession/Order Number: [id number] Exam Date: 08/15/2024 16:16 Report Date: 08/15/2024 16:42 At the request of: BHARAT SERRANO Procedure: CT abdomen pelvis wo con EXAMINATION: CT abdomen pelvis wo con HISTORY: pain ; nausea, vomiting, diarrhea COMPARISON: No relevant comparison available. TECHNIQUE: Axial, Coronal, and Sagittal images were obtained without and/or with IV contrast as indicated by examination type. Dose reduction techniques were achieved by using automated exposure control and/or adjustment of mA and/or kV according to patient size and/or use of iterative reconstruction technique. FINDINGS: LUNG BASES: No visible pulmonary or pleural disease. LIVER: No enlargement, atrophy, suspicious density, or significant focal lesion. BILIARY: No dilatation or calcification. PANCREAS: No lesion, fluid collection, or abnormal duct dilatation. SPLEEN: No enlargement or focal lesion. ADRENALS: No mass or enlargement. KIDNEYS: No mass, obstruction, or calcification. BOWEL/MESENTERY: No visible mass, obstruction, or bowel wall thickening. AORTA/VASCULAR: No aneurysm or dissection. RETROPERITONEUM: No mass or adenopathy. LYMPH NODES: No adenopathy. URINARY BLADDER: No visible focal wall thickening, lesion, or calculus. PELVIC ORGANS: No visible mass. Pelvic organs appropriate for patient age. ABDOMINAL WALL: No mass or hernia. BONES: No bony lesion or fracture. OTHER: Negative. CT/CT abdomen pelvis wo con IMPRESSION: 1. No abnormal or suspicious findings to account for patient's symptoms. Electronically authenticated by: ORION LAM Date: 08/15/2024 16:42
[2024-08-15 17:08] LABS: Bilirubin Urine SMALL (NEGATIVE); Blood Urine LARGE (NEGATIVE); Clarity Urine CLEAR (CLEAR); Glucose Urine UA NEGATIVE (NEGATIVE); Ketones Urine 15 mg/dL (NEGATIVE); Leukocyte Esterase Urine NEGATIVE (NEGATIVE); Nitrite Urine NEGATIVE (NEGATIVE); Protein Urine 100 mg/dL (NEG/TRACE); Specific Gravity Urine >=1.030 (1.005-1.025); Urobilinogen Urine 0.2 EU/dL (0.2-1.0)
[2024-08-15 17:15] LABS: Color Urine BROWN (YELLOW); Urine Microscopic Indicated YES
[2024-08-15 17:24] LABS: Bacteria Urine TRACE #/HPF (NONE SEEN); Cast Seen? SEEN #/LPF (NONE SEEN); Crystals Seen? None Seen #/HPF (None Seen); Hyaline Casts Urine RARE; Mucus Urine TRACE (NONE SEEN); RBC Urine >100 #/HPF (0-2); Squamous Epithelial Cell Urine FEW #/LPF (NONE/RARE); Urine Culture Indicated NO
== END 2024-08-15 18:08 | disposition home or self-care (01) ==
PROVIDERS: Nurse Practitioner Family; Emergency Provider Emergency Medicine; PCP Family Medicine
DX: R11.2 Nausea with vomiting, unspecified (principal); R19.7 Diarrhea, unspecified; R42 Dizziness and giddiness
CPT/HCPCS: 36415; 74176; 80053; 81001; 84703; 85007; 85027; 87804; 96361; 96374; 96375; 96376; 99285; J2405; J3490

== ENCOUNTER 2024-10-04 13:34 | Outpatient (OUT) | payer BC, SELFPAY ==
--- NOTE | 2024-10-04 14:00 | US_ITS ---
The [address] [address] Patient Name: BRAULIO CHAKRABORTY MRN: [id number] date: 1995 Sex: F Assigned Patient Location: US Current Patient Location: US Accession/Order Number: [id number] Exam Date: 10/04/2024 14:24 Report Date: 10/04/2024 14:25 At the request of: YUE RODRIGUEZ Procedure: US thyroid Thyroid ultrasound Reason for exam: Thyroid nodule Comparison: none Technique: Grayscale and color Doppler images of the thyroid gland were obtained. Findings: The right lobe measures 5.6 x 2.1 x 1.8 cm. The left lobe measures 4.3 x 2.0 x 1.4 cm. The isthmus measures 4 mm. No evidence of hyperemia on color Doppler imaging. Several colloid cysts are noted largest measuring 6 mm. No solid nodules present. US/US thyroid Impression: Multiple colloid cysts are noted within the thyroid gland. No solid nodule is present. Impression dictated by: Robinson Escobar Jr., D.O.10/04/2024 2:25 PM Dictation Location: [facility] Electronically authenticated by: [id number] Y Date: 10/04/2024 14:25
[2024-10-04 14:30] LABS: Alanine Aminotransferase 23 U/L (14-59); Albumin Globulin Ratio 0.9; Albumin Level 3.5 g/dL (3.4-5.0); Alkaline Phosphatase 62 U/L (46-116); Anion Gap 11.8; Aspartate Amino Transferase 16 U/L (15-37); BUN Creatinine Ratio 14.3; Bilirubin Total 0.2 mg/dL (0.2-1.0); Calcium 9.3 mg/dL (8.5-10.1); Carbon Dioxide 27.3 mmol/L (21.0-32.0); Chloride 105 mmol/L (98-107); Estimated GFR (African America >60 (>=60 mL/min/1.73m^2); Estimated GFR (Non-African Ame >60 (>=60 mL/min/1.73m^2); Globulin 3.8 g/dL; Glucose 111 mg/dL (74-106); Potassium 4.1 mmol/L (3.5-5.1); Sodium 140 mmol/L (136-145); Total Protein 7.3 g/dL (6.4-8.2)
[2024-10-04 15:03] LABS: Percent Iron Saturation 11.3 %
[2024-10-05 03:07] LABS: Vitamin B12 361 pg/mL (232-1245)
[2024-10-05 17:10] LABS: Thyroglobulin Antibody <1.0 IU/mL (0.0-0.9); Thyroid Peroxidase (TPO) Ab 11 IU/mL (0-34)
== END 2024-10-04 13:35 | disposition home or self-care (01) ==
PROVIDERS: PCP Family Medicine; Visit Provider Nurse Practitioner Family
DX: E04.1 Nontoxic single thyroid nodule (principal); E03.9 Hypothyroidism, unspecified; R53.83 Other fatigue; I10 Essential (primary) hypertension
CPT/HCPCS: 36415; 76536; 80053; 82306; 82607; 82728; 83540; 83550; 86376; 86800

== ENCOUNTER 2025-01-14 22:46 | Emergency (ER) | payer BC, SELFPAY ==
[2025-01-14 22:53] VITALS: BP 140/100; PULSE 83; TEMP 36.9; O2SAT 96; BMI 45.4
--- OUTSIDE RECORDS SUMMARY | 2025-01-14 22:53 | XMS_ITS | CCD ---
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 Role Phone MORIAH BOND Unavailable Unavailable HOY, MORIAH Unavailable Unavailable SELF, REFERRED Unavailable Unavailable HOY, MORIAH Unavailable Unavailable [facility] [place] [place] Primary Care Unavailable EMILI ., DR RICO Attending Unavailable EMILI ., DR RICO Consulting Unavailable EMILI ., DR RICO Admitting Unavailable Alfonzo Guerra MD Primary Care Provider ALFONZO [...] ALFONZO GUERRA Primary Care Unavailable CONTRERAS MOCK R Referring Unavailable ALFONZO GUERRA Primary Care Unavailable YANELIS GARRIDO Attending Unavailable EMILI, CONTRERAS R Referring Unavailable ALFONZO GUERRA Primary Care Unavailable ALFONZO GUERRA Referring Unavailable ALFONZO GUERRA Primary Care Unavailable EMILIADAMARISY Attending Unavailable EMILI, CONTRERAS Attending Unavailable EMILI, CONTRERAS Attending Unavailable EMILI, CONTRERAS Attending Unavailable EMILI, CONTRERAS Attending Unavailable EMILI, CONTRERAS Attending Unavailable EMILI, CONTRERAS Attending Unavailable EMILI, CONTRERAS Attending Unavailable RAYMOND, OLGA Attending Unavailable Unavailable Primary Care Provider Vishnu Guerra MD, Alfonzo Sumner Primary Care Provider HOUSE, DO DINORAH P Attending Unavailable HOUSE, DINORAH P Primary Care Unavailable HOUSE, DO DINORAH P Attending Unavailable HOUSE, DO DINORAH P Admitting Unavailable HOUSE, DINORAH P Primary Care Unavailable [...] Unavailable HOUSE, DINORAH P Primary Care Unavailable Azael LOPEZ, Alfonzo Sumner Primary Care Unavailable HOUSE, DO DINORAH P Attending Unavailable Allergies Allergy Classification Reported Allergen(s) Allergy Type Date of Onset Reaction(s) Facility (2 sources) azithromycin Drug Allergy 0 [facility] Repository (3 sources) ketorolac; Translations: [Toradol] Drug Allergy 0 [facility] Repository (5 sources) traMADol Drug Allergy 0 [facility] Repository (1 source) Iodine (And Iodine Containting Drugs) Drug allergy (disorder) 5 [facility] Repository (20 sources) Azithromycin; Translations: [AZITHROMYCIN] Drug Allergy 4 [facility] (15 sources) Ketorolac trometamol Allergy to substance 4 [facility] (20 sources) traMADol; Translations: [TRAMADOL] Drug Allergy 4 [facility] (15 sources) Other Propensity to adverse reactions 8 [facility] (20 sources) Contrast media; Translations: [DYE] Propensity to adverse reactions to drug (disorder) 8 [facility] Repository (20 sources) Ketorolac; Translations: [KETOROLAC] Drug Allergy 4 [facility] Repository (1 source) Contrast media; Translations: [Contrast Dye] Propensity to adverse reactions to drug (disorder) [facility] Repository Medications Current Medications Medication Drug Class(es) Dates Sig (Normalized) Sig (Original) acetaminophen 500 mg oral tablet (20 sources) Start: 10-12-2023 take 2 tablets by mouth every eight hours acetaminophen (TYLENOL EXTRA STRENGTH) 500 mg tablet Take 2 tablets (1,000 mg total) by mouth every 8 (eight) hours. 30 tablet 10/12/2023 Active benzonatate 200 mg oral capsule (1 source) Non-narcotic Antitussive Start: 12-21-2024 take 1 capsule by mouth three times daily as needed for cough Benzonatate 200 mg capsule Active 200 MG PO Three times daily as needed for cough 30 December 21, 2024 12:00am docusate sodium 100 mg oral capsule (13 sources) Start: 06-05-2021 take 1 capsule by mouth twice daily docusate sodium (COLACE) 100 mg capsule Take 1 capsule (100 mg total) by mouth 2 (two) times a day. 10 capsule 0 06/05/2021 Active doxycycline monohydrate 100 mg oral tablet (1 source) Tetracycline-class Drug Start: 12-21-2024 take 1 tablet by mouth twice daily Doxycycline Monohydrate 100 mg tablet Active 100 MG PO Twice daily 14 December 21, 2024 12:00am ferrous sulfate 325 mg oral tablet (17 sources) Start: 10-12-2023 End: 11-11-2023 take 1 tablet by mouth once daily at breakfast ferrous sulfate 325 (65 FE) mg tablet Take 1 tablet (325 mg total) by mouth daily with breakfast for 30 days. 30 tablet 10/12/2023 11/11/2023 Active ibuprofen 800 mg oral tablet (20 sources) Nonsteroidal Anti-inflammatory Drug Start: 03-29-2017 Ibuprofen 800 mg tablet Active 800 MG PO every 6 to 8 hours as needed for pain March 29, 2017 9:19pm labetalol hydrochloride 200 mg oral tablet (20 sources) beta-Adrenergic Cheyanne Start: 10-03-2024 take 1 tablet by mouth once daily Labetalol 200 mg tablet Active 200 MG PO .Daily October 03, 2024 12:00am Start: 10-12-2023 take 2 tablets [address] [facility] every eight hours labetaloL (NORMODYNE) 300 mg [...] the morning. Take before meals. 06/29/2024 Discontinued metFORMIN hydrochloride 500 mg oral tablet (12 sources) Biguanide Start: 10-03-2024 take 1 tablet by mouth once daily Metformin 500 mg tablet Active 500 MG PO Daily October 03, 2024 12:00am Start: 05-03-2024 End: 05-03-2025 take 1 tablet [...] oral capsule (20 sources) Proton Pump Inhibitor Start: 10-03-2024 take 1 capsule by mouth once daily Omeprazole 40 mg capsule,delayed release(DR/EC) Active 40 MG PO Daily October 03, 2024 12:00am take 1 capsule by mouth in the [...] pantoprazole 40 mg delayed release oral tablet (20 sources) Proton Pump Inhibitor Start: 10-13-2023 take 1 tablet by mouth in the morning pantoprazole (PROTONIX) 40 mg EC tablet Take 1 tablet (40 mg total) by mouth in the morning. 60 tablet 2 10/13/2023 Active phentermine hydrochloride 37.5 mg oral tablet (9 sources) Sympathomimetic Amine Anorectic Start: 10-03-2024 End: 11-04-2024 take 1 tablet by mouth once daily 30 minutes after breakfast Phentermine (Adipex-P) 37.5 mg tablet Active 37.5 MG PO Daily November 04, 2024 9:20am must administer 30 minutes before or 1-2 hours after breakfast Start: 05-30-2024 End: 06-29-2024 take 1 tablet [...] by mouth in the morning. 0 Active venlafaxine 25 mg oral tablet (19 sources) Serotonin and Norepinephrine Reuptake Inhibitor Start: 10-04-19 take 1 tablet by mouth once daily Venlafaxine 25 mg tablet Active 25 MG PO Daily October 03, 2024 12:00am Start: 05-30-2024 End: 05-30-2025 take 1 capsule [...] [Unspecified asthma, uncomplicated] Onset: 02-12-2023 02-12-2023 Chronic Chronic obstructive pulmonary disease and bronchiectasis (2 sources) Bronchitis; Translations: [Bronchitis, not specified as acute or chronic] 12-21-2024 Episodic Esophageal disorders (18 sources) Gastroesophageal reflux disease; Translations: [Gastro-esophageal reflux disease without esophagitis] Onset: 02-12-2023 3 Chronic Essential hypertension (20 sources) Essential hypertension; Translations: [Essential (primary) hypertension] Onset: 02-12-2023 02-12-2023 Chronic Headache; including migraine (15 sources) Migraine; Translations: [Migraine, unspecified, not intractable, without status migrainosus] Onset: 02-12-2023 02-12-2023 Chronic Hypertension complicating ; childbirth and the puerperium (5 sources) Unspecified pre-existing hypertension complicating , unspecified trimester; Translations: [Chronic hypertension complicating AND/OR reason for care during ] Onset: 09-27-2023 08-04-2023 Chronic Joint disorders and dislocations; trauma-related (4 sources) Unspecified internal derangement of left knee; Translations: [UNSPECIFIED INTERNAL DERANGEMENT OF LEFT KNEE] Onset: 04-18-2017 Chronic Malaise and fatigue (6 sources) Fatigue; Translations: [Other fatigue] 10-03-2024 Episodic Miscellaneous mental health disorders (1 source) Psychosomatic factor in physical condition; Translations: [Psychological and behavioral factors associated with disorders or diseases classified elsewhere] 08-05-2024 Chronic Miscellaneous mental health disorders (6 sources) depression; Translations: [ depression] 05-03-2024 Episodic Mood disorders (18 sources) Depressive disorder; Translations: [Depression] Onset: 02-12-2023 [...] trimester] Onset: 08-04-2023 Episodic Other endocrine disorders (18 sources) Polycystic ovary syndrome; Translations: [Polycystic ovarian [...] Obesity; Translations: [Obesity, unspecified] 08-05-2024 Chronic Other nutritional; endocrine; and metabolic disorders (3 sources) Body mass index 40+ - severely obese; Translations: [Morbid (severe) obesity due to excess calories] 10-03-2024 Chronic Other nutritional; endocrine; and metabolic disorders (4 sources) Morbid (severe) obesity due to excess calories; Translations: [Morbid obesity] 10-03-2024 Chronic Other and delivery including normal (2 [...] of other specified conditions] Onset: 08-06-2023 Episodic Sprains and strains (2 sources) Sprain of knee; Translations: [Sprain of unspecified site of unspecified knee, initial encounter] 06-24-2023 Episodic Comment on above: Problem List clean-u p per request of Phys. EHR Cmte Thyroid disorders (14 sources) Hypothyroidism, unspecified; Translations: [Thyroid nodule] Onset: 06-19-2023 10-03-2024 Chronic Unclassified (2 sources) Unknown / UNK(Unknown) Onset: 04-18-2017 Unclassified (15 sources) OB Reminders Onset: 05-11-2023 05-11-2023 Past or Other Problems Problem Classification Problem Date Documented Da te Episodic/Chronic Hypertension complicating ; childbirth and the puerperium (20 sources) Severe pre-eclampsia complicating childbirth; Translations: [Pre-eclampsia] Onset: 09-27-2023 09-27-2023 Episodic Mood disorders (20 sources) Mood disorders Onset: 07-11-2020 07-11-2020 Other bone disease and musculoskeletal deformities (1 source) Chondromalacia, left knee; Translations: [CHONDROMALACIA, LEFT KNEE] Onset: 04-18-2017 Episodic Other complications of (20 sources) Disorder of ; Translations: [Maternal care for other known or suspected poor growth, unspecified trimester, not applicable or unspecified] Onset: 05-28-2021 02-12-2023 Episodic Other complications of (1 source) Maternal [...] applicable or unspecified] Onset: 05-28-2021 02-12-2023 Episodic Other complications of (20 sources) H/O: [...] applicable or unspecified] Onset: 08-04-2023 08-04-2023 Episodic Residual codes; unclassified (15 sources) Insomnia; Translations: [Insomnia, unspecified] Onset: 02-12-2023 02-12-2023 Episodic Thyroid disorders (20 sources) Disorder of thyroid gland; Translations: [Disorder of thyroid, unspecified] 03-01-2021 Episodic Results Test Name Value Interpretation Reference Range Facility Rad - Ultrasound Reporton Rad - Ultrasound Report [id number] Outside Records [id number][id number] Other Radiology Report on 08-16-2024 Rad - Other Radiology Report [id number][facility] C[facility] 08-08-2024 Coding Summary HTMLBase 64 JwrcxhyfZLe9mHu+PGhlYWQ+PE1F TGIwD94osKUgwI1eK4IUDAiOLzwg LGFKEYeQIgOcxeTvVY9vcXQlHWYq IC8+ZL8bGEUsKpvvjTSwq9V4cMN5 T22xqy4yAIyduXQ5FJXjWjTmesix h4pdhBx3VFooWsirChEa QOVunM68NZE1iD68Th48mCMgmKIw a8qwmWd0PrFlMAPoPYG5xNflHUcw z6AmUVTaB80qrLNer7M6 DYLzbFozuWDfCkQzjMH5mE6mXHkb qcebb2ymymvhNfw3vt63pSIon1P8 qKV8N3XvzgH1RMSweZKg HcomiOTKdR7kmcpta7fvywiyUwHj NVNvXPq1JDg6EPOgwZixPrUwGQ93 HUE4KSLpeeHxZ2DmGPPr tSiaRiQ0e9C9Sj4EX6KQQclzT5MX TUFSWTwvdGQ+PQ79qg27P1JcHwcj Jqw1NOArDHN4uNX8tX4a YDXvFYhqh7R0eVN5E2FyocNmsj8g p5ldPLCgYCxbR66jjMTgy5G9DPMl vRG1XRXtrBhxZtKiqP10 Oyc+CFVbiOrqh3PbAzknp6ano0kq dKg9GmjhMKRunpLgeAldDMH2f7Oj Ai5pRTYejMF9sIW8lP5m VuKzAgM4WUivR826MhWprBOxYopj W62qL9ZkoXP+COPpCvz3GWTweIjf YR3yJ4XoFQJepxqojEIm pFdfPT7vUJXaskltFNBdyE8dBDQi L0d7MmFpZtF3ROlwR8SoNMYmzztt Tm46gK2wBeVcHsH5OSmv Y4FknfU5NRLyfOBzGXfuUXH6L87i j0M7OWMkXNDvOBX6dJB6bQ8qlCbu bjogbGVmdDsgdmVydGlj YOcqXDlyT334TBDhoCsuNsDmJSaz ZyBEYXRlOiAgMDEvMjcvMjAyNTwv dGQ+OVGhATN2eTjkFWWy tMDlLDklMz2dfEpccImpVS4fTBPv tsykLZHbmG3uQCHacFAssMhfWN6g TKQuujpyz851FbMpVZL7 TXYwkEMhU3SbkX3cHcAbSRJtDFNj I3AtrNHkUEtnK730YZcaUoZ2RWSg psFtN3NwZXCqaYjpUnW1 x4E3Zn8Oe2YdprkxR5YjdQVqFjAy LzzaTXy2F8ObJhjooJO+VJ72QHMn MX65KBo0RRA6gBakYSkm ZGSoC9PirP2jYwXqCJQpNSRcYgh+ PHRhYmxlIHdpZHRoPScxMDAlJyBz xLppTU6hLn9aMFQjFYHt jIcstBAeBmHea2mnDEKgQEnbLQ5x dPcdV5KahLE4QKFky8x7Pb49F56r F3IdgON+ASNbmBK2uHP4 wZ1xGuRpAxN6MRpjI759SeGlnKLo Cvvuw0atp1yplFd8EhL0TSKzzvUl oKzyDGL6g0BcCs30P35w IIuxQIMqCSZoJTHgFTGzmPdvlk9h tI7wIw8+XERrlFR3aSP5nM5vXnXc FeZ7QJzhK494HdJdmTXf Hxewr2gbi9rbgFw8YoEjCWCdnfOb uUzgBEJ7g6HyTg64E9KpjFuuj7Qd Scj7so41mCMnt7O6qMV3 Q8WpANTgpnhvtLIexKxpGA4vDWPn objaWKPouF8mXHNtG1w1BvNdJlJ8 DFkzV8VimhP0TKPgfBEt FBLfhGXFyT4iolhni1egtfykGpJb EAJyILi3UOx9RNXueZlyIpXzOXE4 MvI1GQS6vMFoiW9fbSsg akghiU7uCms+DZL2uKKlfNWKEN8p OjwvdGQ+YKIgMDD1jIjfLIceVBYh gJ9aOIHnE4u4NdWtSyX6 WPncW5ZqdqZ4BFOgqLUcRFGgvTYV tJ9jukpwi8gjobtaNlRlBCZcIKk4 UJx3UITcyGeiAwBtIOT7 UnZ4ZEH8oALljR8vxGoszazhvR2y Oyc+GjzdxVkcBSG9BFr3E2AyIuw9 UKWrsPgrVC7iaFPtJLri Xe3pzPqbpVbsAL8aUUEehmxhb362 KqIkg8dyQODyaLKzMQtuPUY7K48a y5H6HUMuCQOrBPZ5xFR3 wB6jmNsjnjphpPErwGfkxbJqxFse AHvjRSckU930LVNotHhnSkBkVXy5 O2XkEix6BVCopRclNP4q yOWaRYajOh7qbRldaYakQX9rVDNb edsdp445FuUfv5huSYCwuFBdXYni WWE6K64ar8Y7OMJxWCRi PET8bIB2zS7mkVcqjjdsxUWxrBzu goGpoUzhWRjoXNugK140HAJbsBla GqMdcZr8F2JfAlu5YLGy tCtxEF2mdZUgCYlqPp1paAflhGsu UU7nCARpfkaps788FaFaj5dwSJSj eEPxVYzuIAF5D90si6F7 FFYiHOSfSPR9sOD7aI2ctLmwujop jZKpnQulsiFetEhjPQmpLXfyO182 IHRvcDsnPlBhdGllbnQg EFyfOBj5E3XzKoisgHG+NN73JXEw GR11tKVlfGHtb4rjpBg0KzIdQHLu HGH5sVbaXStfn8HoWWLv B83viHMvi8Z1QYVrtYxyoSFjVfRx hRZ5xM5lXDtiyaiou1pyffckRnok q9ysqm22dR61V46qQZvm OJEbGCGiFHCyASFrgTnolb9fxP4n Ii8+FUAlkRT6eOB7fY5kANGrDoY7 FUpgI180MlQcjZDjNcat g1hav2lfqAm3ZmQ9CVCqsyHufLhz FEB6l5ZwGl79N62dOTsvBYEfPRXd AYJlPZZtcNneja1teG4d Ii8+HHFogZL9rID4uR4kVmDpMmY7 IXyzL538PmMrgSYzBcnpM75vN8Sm dXA+EUFpMah6YBRekIui WS5nzHLwSFfdPm3rTNZ6LwIoNdDg BHftU8MuUPFfsfjrxjuojTP2HYZf FFYwfZ52Wj5paJbeIBYe pRRZpQ2picqnh7kgiugfArCpRUMf EGx7EAr8AUVijZzcQtZdDUF7HxB8 KHY2qLLszW7ubNfmiqru pH0gY0CqPHZiaqnhRt41rL2kWbRx HsX1DWigZcv+O7qZJ1tOQuriBZMK A6KdNN9WCI50CV64zLUs o2R1qPK1O5EtETUeptzesvoikHM5 TAAzPPRyoB49aOPuTPqrOa9md2Q1 y726QNHcUQXnvT39Yd9n pTvtUMJulDZHbK0tageus1dnefok VdZyXAAqIAf2APs2UUEhbIplLhSa ISS2NjG6MKM4uFHflK5o bEkkmvbabS6kWgi+MDMvMTIvMTk5 NzwvdGQ+CKJpSBD2iUfrIGhzPOLr zI9cMERvR8p4MzPmWeA9 EHabS8FrACWueqreTe22tE6fEkZo XmA2HSoxN5FnyqU8JFXlcVLoSBgb AWT0H93bh4B9KAHpCAGx ZNP7kSJ7vH5tsIjjhkotpCIswLjb mxRtgHtcHOuvYDmlS680CCKpnGhz XzY6RKehXTNtWW24UJ23 nIYxv6L5zMN0M3UtDULxmhukpuop wYJ4YYZqDNUodV09qURcVFunFc9a q4P0t911DSMpICXutH68 Lt4lbMwgEOOqbTEBlN6nmbbco1gt xkpoAiIiTSEuJUi8DQh0CZCahZsf ZkBlXQF3WdS8XOS0iHRn rT5exUgeotiehC4gUmy+RkVNQUxF EH30XA77oPCez6M2xSD2L9SfUGWy mjdnjklgvBT6CHKeITSg kT16zFFjGXqfJr7jt0A3n060XKIe CLXibX81Iw5nsMpuMTInfMETyD5w fapzy0zcnmggPsXsMKOe CKh7NIi4RLPxxDeaIeNrQKB2OlA4 UNU6uWAamX8prNanhctcrZ0wMxa+ S5E8I6HpRflyvJR+PC90 IZUgTJ13jWMajXAkv5uvxXf3AhPd VUXjXGF3rJiqSLxvq8AuXMPyB18t iQBay4H6HZIuuHytqWEv HpGcoDD3eD5nZVifnznca6ivqymi Kdtlc4vrwl39lL68S39sBVhjBCLt KLPzFPTgUQEnwBzhwg3k yY1wYc6+OPLdtON3iPL4uU8qNkXc LiQ6RRvaQ685XeHbnRQkQjimw0af p5tofAi0WxCsZBRlhfCq hNgiVOT2z9DoTs12S67oDVhuQAGs TIGdJPChWEQeeKvnya8lhK9sZg2+ AT3ka4wfgl77cG39lMZ+ CMBgSGF6zSrsRCzqYIHnzJ4gJAbo AhJ4RJStAoLmwE64bJOpULtoAj6d gGhvqHzbLI7dHERmjygl h937TgYan5rqOYVptFKrPCdvILO2 D99xv8X1KARkXEKjXKO6vVN8yH1s bGlnbjogbGVmdDsgdmVy tJxmYEgvEOfcH269QLCfaXdhGsCf cSSgT7hpwcMKNB2xRtzyyMP+PHRk LLP9sUktNNebNFEjcE8b RWJbU5a4YtJcXeQ3OVtiM8HenvC6 OYIydFVfBSEexSSFyX8gwpebc5qd lbiyBfIyUZSfMNr0JWw7 LOHarZrrTcZgJIL6LoN3BGI1qEYi zY9mlHvwistlfT0bIgh+RklOOjwv dGQ+IXTiSTB9wVrrWJhh CGSzuV5iXMSiC4y8HnToGyH6IFad W1VfzgW7CPXugBKuCHZslYCBvM8i sinkv4ytrrixPfDoOEAu IWf5PDh0CGYpvSliBeUqVJO5QaR9 OQH5dDRitI6zhNzyqdsjuD2vSgn+ TVJOOjwvdGQ+PHRkIHN0 xQuhQKuxGOZssQ1aLFZuP1a8XxGa JlC3SVieX1XixyI4XCNiyUSaJTOe qNCMhA2jknbhc0zvbzps DsYyJZNdJQx1JRo2LJVetWgyQuOa WTE3QhS6AXX7fVOqiP6csWtcasti lA7iBgf+JME1WWF5XR36 AP87Q2NgAcbucBVtcQD+PHRhYmxl BGqeYNZcPWnxASMcDiFymBcmRS4c Tf9iEHSgIXYsuXydlSHd OiB (more content not included)... Normal [facility] Reminder Messageson 08-04-19 Reminder Messages - From: DINORAH GILBERT DO To: [facility] Clinical Pool ([facility]); Sent: 08/04/2024 11:14:17 EST ! Show up: [...] % (14 - 48) 08/02/2024 11:54 Auto Elbert % 6 % (1 - 12) 08/02/2024 11:54 Auto Eos % 2.1 % (0.9 - 4.0) 08/02/2024 11:54 Auto Baso % 0.9 % (0.2 - 2.0) 08/02/2024 11:54 Neut Abs# 6.5 x103/mcL (1.5 - 9.2) 08/02/2024 11:54 Lymph Abs# (H) 3.7 x103/mcL (1.3 - 2.9) 08/02/2024 11:54 Elbert Abs# 0.7 x103/mcL (0.0 - 0.8) 08/02/2024 11:54 Eos Abs# 0.2 x103/mcL (0.0 - 0.4) 08/02/2024 11:54 Baso Abs# 0.1 x103/mcL (0.0 - 0.2) pt notified Normal [facility] .Auto Diff 1on 08-02-2024 Auto Elbert % 6 % Normal 1-12 [facility] Comment on above: Performed By: #### 7 [id number], [id number], [id number], [id number], [id number] #### [facility] (DEFAULT) [address] [place] [address] 83926 Baso Abs# 0.1 x10 Normal 0.0-0.2 [facility] Comment on above: Performed By: #### 7 [id number], [id number], [id number], [id number], [id number] #### [facility] (DEFAULT) [address] [place] [address] 65552 Basophils/100 WBC (Bld) 0.9 % Normal 0.2-2.0 [facility] Comment on above: Performed By: #### 7 [id number], [id number], [id number], [id number] #### [facility] (DEFAULT) [address] [place] [address] 36100 Eos Abs# 0.2 x10 Normal 0.0-0.4 [facility] Comment on above: Performed By: #### 7 [id number], [id number], [id number], [id number], [id number] #### [facility] (DEFAULT) [address] [place] [address] 57743 Eosinophils/100 WBC (Bld) 2.1 % Normal 0.9-4.0 [facility] Comment on above: Performed By: #### 7 [id number], [id number], [id number], [id number], [id number] #### [facility] (DEFAULT) [address] [place] [address] 97358 Lymph Abs# 3.7 x10 High 1.3-2.9 [facility] Comment on above: Performed By: #### 7 [id number], [id number], [id number], [id number], [id number] #### [facility] (DEFAULT) [address] [place] [address] 08792 Lymphocytes/100 WBC (Bld) 33 % Normal 14-48 [facility] Comment on above: Performed By: #### 7 [id number], [id number], [id number], [id number], [id number] #### [facility] (DEFAULT) [address] [place] [address] 44479 Elbert Abs# 0.7 x10 Normal 0.0-0.8 [facility] Comment on above: Performed By: #### 7 [id number], [id number], [id number], [id number], [id number] #### [facility] (DEFAULT) [address] [place] [address] 60526 Neut Abs# 6.5 x10 Normal 1.5-9.2 [facility] Comment on above: Performed By: #### 7 [id number], [id number], [id number], [id number], [id number] #### [facility] (DEFAULT) [address] [place] [address] 03149 Neutrophils/100 WBC (Bld) 58 % Normal 44-88 [facility] Comment on above: Performed By: #### 7 [id number], [id number], [id number], [id number], [id number] #### [facility] (DEFAULT) [address] [place] [address] CBC w/ Auto Diffon 5 Erythrocyte distribution width (RBC) [Ratio] 13.8 % Normal 11.5-15.0 [facility] Comment on above: Performed By: #### 7 [id number], [id number], [id number], [id number], [id number] #### [facility] (DEFAULT) [address] [place] [address] Hematocrit (Bld) [Volume fraction] 38.6 % Normal 33.7-40.4 [facility] Comment on above: Performed By: #### 7 [id number], [id number], [id number], [id number], [id number] #### [facility] (DEFAULT) [address] [place] [address] Hemoglobin (Bld) [Mass/Vol] 12.9 g/dL Normal 11.3-15.9 [facility] Comment on above: Performed By: #### 7 [id number], [id number], [id number], [id number], [id number] #### [facility] (DEFAULT) [address] [place] [address] Man Diff? Auto Invalid Interpretation Code [facility] Comment on above: Performed By: #### 7 [id number], [id number], [id number], [id number], [id number] #### [facility] (DEFAULT) [address] [place] [address] MCH (RBC) [Entitic mass] 28 pg Normal 24-34 [facility] Comment on above: Performed By: #### 7 [id number], [id number], [id number], [id number], [id number] #### [facility] (DEFAULT) [address] [place] [address] MCHC (RBC) [Mass/Vol] 34 g/dL Normal 26-37 [facility] Comment on above: Performed By: #### 7 [id number], [id number], [id number], [id number], [id number] #### [facility] (DEFAULT) [address] [place] [address] MCV (RBC) [Entitic vol] 85 fL Normal 81-100 [facility] Comment on above: Performed By: #### 7 [id number], [id number], [id number], [id number], [id number] #### [facility] (DEFAULT) [address] [place] [address] Platelet 439 x10 High 138-427 [facility] Comment on above: Performed By: #### 7 [id number], [id number], [id number], [id number], [id number] #### [facility] (DEFAULT) [address] [place] [address] Platelet mean volume (Bld) [Entitic vol] 7.0 fL Normal 6.3-10.2 [facility] Comment on above: Performed By: #### 7 509019, [id number], [id number], [id number], [id number] #### [facility] (DEFAULT) [address] [place] [address] RBC 4.56 x10 Normal 3.70-5.30 [facility] Comment on above: Performed By: #### 7 875422, [id number], 14545994, [id number], [id number] #### [facility] (DEFAULT) [address] [place] [address] WBC 11.1 x10 High 3.5-10.5 [facility] Comment on above: Performed By: #### 7 [id number], [id number], [id number], [id number], [id number] #### [facility] (DEFAULT) [address] [place] [address] [facility] Standardon 08-02-2024 eGFR Non AA >60 Invalid Interpretation Code [facility] Comment on above: Performed By: #### 7 [id number], [id number], [id number], [id number], [id number] #### [facility] (DEFAULT) [address] [place] [address] 11241 eGFR AA >60 Invalid Interpretation Code [facility] Comment on above: Performed By: #### 7 315130, [id number], 97769408, [id number], [id number] #### [facility] (DEFAULT) [address] [place] [address]160 Albumin [Mass/Vol] 3.8 g/dL Normal 3.5-5.0 [facility] Comment on above: Performed By: #### 7 098993, 64041991, 41958471, [id number], [id number] #### [facility] (DEFAULT) [address] [place] [address] Albumin/Globulin [Mass ratio] 1.1 {ratio} Low 1.4-2.6 [facility] Comment on above: Performed By: #### 7 076614, [id number], [id number], [id number], [id number] #### [facility] (DEFAULT) [address] [place] [address] Alk Phos 47 IU/L Normal 32-91 [facility] Comment on above: Performed By: #### 7 689259, 23854257, [id number], [id number], [id number] #### [facility] (DEFAULT) [address] [place] [address] ALT [Catalytic activity/Vol] 21.0 U/L Normal 14.0-54.0 [facility] Comment on above: Performed By: #### 7 080798, 33038603, 04387391, [id number], 6808750 #### [facility] (DEFAULT) [address] [place] [address] Anion gap [Moles/Vol] 13.7 mmol/L Normal 5.0-19.0 [facility] Comment on above: Performed By: #### 7 344381, 75300072, 34790979, [id number], 4126981 #### [facility] (DEFAULT) [address] [place] [address] AST [Catalytic activity/Vol] 22 U/L Normal 15-41 [facility] Comment on above: Performed By: #### 7 [id number], [id number], [id number], [id number], [id number] #### [facility] (DEFAULT) [address] [place] [address] Bili Total 0.4 mg/dL Normal 0.3-1.2 [facility] Comment on above: Performed By: #### 7 592697, [id number], 50628505, [id number], 2364294 #### [facility] (DEFAULT) [address] [place] [address] 13797 Calcium [Mass/Vol] 8.9 mg/dL Normal 8.9-10.3 [facility] Comment on above: Performed By: #### 7 470776, 38378740, 92655198, [id number], [id number] #### [facility] (DEFAULT) [address] [place] [address] 31886 Chloride [Moles/Vol] 102 mmol/L Normal 101-111 [facility] Comment on above: Performed By: #### 7 227977, 85636527, 23431987, [id number], 2771058 #### [facility] (DEFAULT) [address] [place] [address] 43700 CO2 [Moles/Vol] 24 mmol/L Normal 21-32 [facility] Comment on above: Performed By: #### 7 927359, 75749744, 73142505, [id number], 9857126 #### [facility] (DEFAULT) [address] [place] [address] 23252 Creatinine [Mass/Vol] 0.64 mg/dL Normal 0.60-1.30 [facility] Comment on above: Performed By: #### 7 692259, 39374183, 11134702, [id number], 1878120 #### [facility] (DEFAULT) [address] [place] [address] 55789 Globulin (S) [Mass/Vol] 3.3 g/dL Normal 1.5-4.3 [facility] Comment on above: Performed By: #### 7 493066, 96697345, 35203796, [id number], 5750975 #### [facility] (DEFAULT) [address] [place] [address] 40632 Glucose [Mass/Vol] 97.0 mg/dL Normal 74.0-118.0 [facility] Comment on above: Performed By: #### 7 308385, 40660236, 15988610, [id number], 8236390 #### [facility] (DEFAULT) [address] [place] [address] 34719 Osmolality 272 mOsm/L Invalid Interpretation Code [facility] Comment on above: Performed By: #### 7 363617, 34639878, 75877980, [id number], 1053654 #### [facility] (DEFAULT) [address] [place] [address] 71438 Potassium [Moles/Vol] 3.7 mmol/L Normal 3.6-5.1 [facility] Comment on above: Performed By: #### 7 679766, 08363873, 00627789, [id number], 7230493 #### [facility] (DEFAULT) [address] [place] [address] 72327 Protein [Mass/Vol] 7.1 g/dL Normal 6.5-8.1 [facility] Comment on above: Performed By: #### 7 864414, 95886575, 38075705, [id number], 2068288 #### [facility] (DEFAULT) [address] [place] [address] 60922 Sodium [Moles/Vol] 136.0 mmol/L Normal 136.0-144.0 [facility] Comment on above: Performed By: #### 7 058545, 00399998, 58650191, [id number], 1285263 #### [facility] (DEFAULT) [address] [place] [address] 40220 Urea nitrogen [Mass/Vol] 12 mg/dL Normal 8-26 [facility] Comment on above: Performed By: #### 7 134113, 53246385, 63763146, [id number], 8064948 #### [facility] (DEFAULT) [address] [place] [address] 01204 Urea nitrogen/Creatinin e [Mass ratio] 18.7 mg/mg High 4.6-16.2 [facility] Comment on above: Performed By: #### 7 141762, 73122441, 08171316, [id number], 4847173 #### [facility] (DEFAULT) [address] [place] [address] 95980 T4, Totalon 08-02-2024 T4 [Mass/Vol] 8.36 ug/dL Normal 6.09-12.23 [facility] Comment on above: Performed By: #### 7 437697, 52422517, 74625537, [id number], 0320372 #### [facility] (DEFAULT) [address] [place] [address] TSHon 08-02-2024 TSH Qn 4.05 m[IU]/L Normal 0.45-5.33 [facility] Comment on above: Performed By: #### 7 679840, 99704267, 57860711, [id number], 9438170 #### [facility] (DEFAULT) [address] [place] [address] Outside Recordson 06-06-2024 Outside Records [id number] on 06-06-2024 Rad - Other Radiology Report [id number]#[facility] IGP,APTIMA HPV,AGE GDLNon AGE GDLN ACOG TESTING Note . [facility] Comment on above: TESTS RESULT FLAG UN ITS REF RANGE LAB Clinician Provided Cytology Information Source.............Cervix;Endocervix No. of containers..01 ThinPrep Vial Age Algo ACOG Arsenio... FLAG LEGEND: L-Low Normal,H-High Normal,LL-Alert Low,HH-Alert High <-Panic Low,>-Panic High,A-Abnormal,AA-Critical Abnormal Performed at: 01 =G [facility] [place] [address] [facility] [place] [address] Megha Almaguer MD, IGP, RFX APTIMA HPV ASCU Note . [facility] Comment on above: TESTS RESULT FLAG UN ITS REF RANGE LAB DIAGNOSIS: 02 NEGATIVE FOR INTRAEPITHELIAL LESION OR MALIGNANCY. Specimen adequacy: 02 Satisfactory for evaluation. No endocervical component is identified. Performed by: 02 Ana Werner, Front Services Agent ([facility]) . 02 Note: Note 02 The Pap smear is a screening test designed to aid in the detection of premalignant and malignant conditions of the uterine cervix. It is not a diagnostic procedure and should not be used as the sole means of detecting cervical cancer. Both false-positive and false-negative reports do occur. Test Methodology: Note 02 The [employer]) Fuel House Attendant was unable to read this specimen. Therefore a manual review was performed. FLAG LEGEND: L-Low Normal,H-High Normal,LL-Alert Low,HH-Alert High <-Panic Low,>-Panic High,A-Abnormal,AA-Critical Abnormal Performed at: 02 WB [facility] [place] [address] [facility] [place] [address] Megha Almaguer MD, . 02 The HPV DNA reflex criteria were not met with this specimen result therefore, no HPV testing was performed. The HPV DNA reflex criteria were not met with this specimen result therefore, no HPV testing was performed. Performed at: = - [facility] [id number] Software Development Leader: Megha Almaguer MD, Phone: [phone] Performed at: - [facility] [id number] Software Development Leader: Megha Almaguer MD, Phone: [phone] BRUSH-SPATULA CERVIX ENDOCERVIX [facility] Progress Note - Nurseon - Progress Note [...] on: 02/09/2024 08:48 EDT] Sindy Cormier Normal [facility] CBC AND AUTO DIFFon 10-20-19 24 ABSOLUTE BASOPHIL 0.1 X10E9/L Normal 0.0-0.2 [facility] Comment on above: Performed By: #### U PCR, DSU #### [facility] ([id number]) [address], [address] [place] [address] ABSOLUTE NEUTROPHIL 8.0 X10E9/L High 1.5-6.6 [facility] Comment on above: Performed By: #### U PCR, DSU #### [facility] ([id number]) [address] [place] [address], [address] [place] [address] Basophils/100 WBC (Bld) 0.9 % Normal [facility] Comment on above: Performed By: #### U PCR, DSU #### [facility] ([id number]) [address], [address] [place] [address] Eosinophils (Bld) [#/Vol] 0.2 10*3/uL Normal 0.0-0.4 [facility] Comment on above: Performed By: #### U PCR, DSU #### [facility] ([id number]) [address], [address] [place] [address] Eosinophils/100 WBC (Bld) 1.5 % Normal [facility] Comment on above: Performed By: #### U PCR, DSU #### [facility] ([id number]) [address], [address] [place] [address] Erythrocyte distribution width (RBC) [Ratio] 13.6 % Normal 11.5-15.0 [facility] Comment on above: Performed By: #### U PCR, DSU #### [facility] ([id number]) [address], [facility] [address] [place] [address] Hematocrit (Bld) [Volume fraction] 36.2 % Normal 35-47 [facility] Comment on above: Performed By: #### U PCR, DSU #### [facility] ([id number]) [address], [address] [place] [address] Hemoglobin (Bld) [Mass/Vol] 12.1 g/dL Normal 11.7-15.5 [facility] Comment on above: Performed By: #### U PCR, DSU #### [facility] ([id number]) [address], [address] [place] [address] Lymphocytes (Bld) [#/Vol] 3.0 10*3/uL Normal 1.0-3.5 [facility] Comment on above: Performed By: #### U PCR, DSU #### [facility] ([id number]) [address], [address] [place] [address] Lymphocytes/100 WBC (Bld) 25.3 % Normal [facility] Comment on above: Performed By: #### U PCR, DSU #### [facility] ([id number]) [address], [address] [place] [address] MCH (RBC) [Entitic mass] 30.2 pg Normal 27-34 [facility] Comment on above: Performed By: #### U PCR, DSU #### [facility] ([id number]) [address], [address] [place] [address] MCHC (RBC) [Mass/Vol] 33.4 g/dL Normal 32-36 [facility] Comment on above: Performed By: #### U PCR, DSU #### [facility] ([id number]) [address], [address] [place] [address] MCV (RBC) [Entitic vol] 91 fL Normal 80-100 [facility] Comment on above: Performed By: #### U PCR, DSU #### [facility] ([id number]) [address], [address] [place] [address] Monocytes (Bld) [#/Vol] 0.6 10*3/uL Normal 0-0.9 [facility] Comment on above: Performed By: #### U PCR, DSU #### [facility] ([id number]) [address], [address] [place] [address] Monocytes/100 WBC (Bld) 5.1 % Normal [facility] Comment on above: Performed By: #### U PCR, DSU #### [facility] ([id number]) [address], [address] [place] [address] Neutrophils/100 WBC (Bld) 67.2 % Normal [facility] Comment on above: Performed By: #### U PCR, DSU #### [facility] ([id number]) [address], [address] [place] [address] Platelet mean volume (Bld) [Entitic vol] 7.2 fL Normal 7-12 [facility] Comment on above: Performed By: #### U PCR, DSU #### [facility] ([id number]) [address], [address] [place] [address] Platelets (Bld) [#/Vol] 423 10*3/uL Normal 150-450 [facility] Comment on above: Performed By: #### U PCR, DSU #### [facility] ([id number]) [address], [address] [place] [address] RBC COUNT 4.00 X10E12/L Normal 3.80-5.20 [facility] Comment on above: Performed By: #### U PCR, DSU #### [facility] ([id number]) [address], [address] [place] [address] WBC (Bld) [#/Vol] 12.0 10*3/uL High 4.0-11.0 [facility] Comment on above: Performed By: #### U PCR, DSU #### [facility] ([id number]) [address], [address] [place] [address] COMPREHENSIVE METABOLIC PANE Yasmani 10-20-2023 Albumin [Mass/Vol] 3.7 g/dL Normal 3.2-5.3 [facility] Comment on above: Performed By: #### U PCR, DSU #### [facility] ([id number]) [address], [address] [place] [address] ALP [Catalytic activity/Vol] 61 U/L Normal 39-130 [facility] Comment on above: Performed By: #### U PCR, DSU #### [facility] ([id number]) [address], [address] [place] [address] ALT [Catalytic activity/Vol] 17 U/L Normal 0-31 [facility] Comment on above: Performed By: #### U PCR, DSU #### [facility] ([id number]) [address], [address] [place] [address] Anion gap [Moles/Vol] 10 mmol/L Normal 5-15 [facility] Comment on above: Performed By: #### U PCR, DSU #### [facility] ([id number]) [address], [address] [place] [address] AST [Catalytic activity/Vol] 17 U/L Normal 0-41 [facility] Comment on above: Performed By: #### U PCR, DSU #### [facility] ([id number]) [address], [address] [place] [address] Bilirubin [Mass/Vol] 0.3 mg/dL Normal 0.3-1.2 [facility] Comment on above: Performed By: #### U PCR, DSU #### [facility] ([id number]) [address], [address] [place] [address] Calcium [Mass/Vol] 9.1 mg/dL Normal 8.5-10.5 [facility] Comment on above: Performed By: #### U PCR, DSU #### [facility] ([id number]) [address], [address] [place] [address] Chloride [Moles/Vol] 111 mmol/L High 98-109 [facility] Comment on above: Performed By: #### U PCR, DSU #### [facility] ([id number]) [address], [address] [place] [address] CO2 [Moles/Vol] 23 mmol/L Normal 22-32 [facility] Comment on above: Performed By: #### U PCR, DSU #### [facility] ([id number]) [address] [address] [place] [address] Creatinine [Mass/Vol] 0.80 mg/dL Normal 0.40-1.00 [facility] Comment on above: Result Comment: METH OD TRACEABLE TO IDMS STANDARD Performed By: #### U PCR, DSU #### [facility] ([id number]) [address] [address] [place] [address] eGFR (CKD-EPI) NON-RACE DEPENDENT >90 Normal >59 [facility] Comment on above: Result Comment: Reported eGFR is based on the CKD-EPI 2020 equation that does not use a race coefficient. Performed By: #### U PCR, DSU #### [facility] ([id number]) [address], [address] [place] [address] Glucose [Mass/Vol] 95 mg/dL Normal 65-99 [facility] Comment on above: Performed By: #### U PCR, DSU #### [facility] ([id number]) [address] [address] [place] [address] Potassium [Moles/Vol] 3.7 mmol/L Normal 3.5-5.0 [facility] Comment on above: Performed By: #### U PCR, DSU #### [facility] ([id number]) [address] [address] [place] [address] Protein [Mass/Vol] 6.7 g/dL Normal 6.0-8.0 [facility] Comment on above: Performed By: #### U PCR, DSU #### [facility] ([id number]) [address] [address] [place] [address] Sodium [Moles/Vol] 144 mmol/L Normal 134-146 [facility] Comment on above: Performed By: #### U PCR, DSU #### [facility] ([id number]) [address], [address] [place] [address] Urea nitrogen [Mass/Vol] 18 mg/dL Normal 5-23 [facility] Comment on above: Performed By: #### U PCR, DSU #### [facility] ([id number]) [address], [address] [place] [address] LDH [Catalytic activity/Vol] on 10-20-2023 LDH 152 U/L Normal 100-235 [facility] Comment on above: Performed By: #### U PCR, DSU #### [facility] ([id number]) [address], [address] [place] [address] URIC ACIDon 10-20-2023 Urate [Mass/Vol] 7.3 mg/dL High 2.6-7.[address] [facility] Comment on above: Performed By: #### U PCR, DSU #### [facility] ([id number]) [address], [address] [place] [address] CBC AND AUTO DIFFon 10-11-19 24 ABSOLUTE BASOPHIL 0.0 X10E9/L Normal 0.0-0.2 [facility] Comment on above: Performed By: #### U PCR, DSU #### [facility] ([id number]) [address], [address] [place] [address] ABSOLUTE NEUTROPHIL 14.0 X10E9/L High 1.5-6.6 [facility] Comment on above: Performed By: #### U PCR, DSU #### [facility] ([id number]) [address] [address] Basophils/100 WBC (Bld) 0.2 % Normal [facility] Comment on above: Performed By: #### U PCR, DSU #### [facility] ([id number]) [address], [address] [place] [address] Eosinophils (Bld) [#/Vol] 0.1 10*3/uL Normal 0.0-0.4 [facility] Comment on above: Performed By: #### U PCR, DSU #### [facility] ([id number]) [address], [facility] [address] [place] [address] Eosinophils/100 WBC (Bld) 0.2 % Normal [facility] Comment on above: Performed By: #### U PCR, DSU #### [facility] ([id number]) [address], [facility] [address] [place] [address] Erythrocyte distribution width (RBC) [Ratio] 13.1 % Normal 11.5-15.0 [facility] Comment on above: Performed By: #### U PCR, DSU #### [facility] ([id number]) [address], [facility] [address] [place] [address] Hematocrit (Bld) [Volume fraction] 34.3 % Low 35-47 [facility] Comment on above: Performed By: #### U PCR, DSU #### [facility] ([id number]) [address], [facility] [address] [place] [address] Hemoglobin (Bld) [Mass/Vol] 11.7 g/dL Normal 11.7-15.5 [facility] Comment on above: Performed By: #### U PCR, DSU #### [facility] ([id number]) [address] [address] Lymphocytes (Bld) [#/Vol] 4.6 10*3/uL High 1.0-3.5 [facility] Comment on above: Performed By: #### U PCR, DSU #### [facility] ([id number]) [address] [address] [place] [address] Lymphocytes/100 WBC (Bld) 22.5 % Normal [facility] Comment on above: Performed By: #### U PCR, DSU #### [facility] ([id number]) [address], [address] [place] [address] MCH (RBC) [Entitic mass] 30.3 pg Normal 27-34 [facility] Comment on above: Performed By: #### U PCR, DSU #### [facility] ([id number]) [address], [address] [place] [address] MCHC (RBC) [Mass/Vol] 34.1 g/dL Normal 32-36 [facility] Comment on above: Performed By: #### U PCR, DSU #### [facility] ([id number]) [address], [address] [place] [address] MCV (RBC) [Entitic vol] 89 fL Normal 80-100 [facility] Comment on above: Performed By: #### U PCR, DSU #### [facility] ([id number]) [address], [address] [place] [address] Monocytes (Bld) [#/Vol] 1.8 10*3/uL High 0-0.9 [facility] Comment on above: Performed By: #### U PCR, DSU #### [facility] ([id number]) [address], [address] [place] [address] Monocytes/100 WBC (Bld) 9.0 % Normal [facility] Comment on above: Performed By: #### U PCR, DSU #### [facility] ([id number]) [address], [address] [place] [address] Neutrophils/100 WBC (Bld) 68.1 % Normal [facility] Comment on above: Performed By: #### U PCR, DSU #### [facility] ([id number]) [address], [address] [place] [address] Platelet mean volume (Bld) [Entitic vol] 7.9 fL Normal 7-12 [facility] Comment on above: Performed By: #### U PCR, DSU #### [facility] ([id number]) [address], [address] [place] [address] Platelets (Bld) [#/Vol] 352 10*3/uL Normal 150-450 [facility] Comment on above: Performed By: #### U PCR, DSU #### [facility] ([id number]) [address], [address] [place] [address] RBC COUNT 3.85 X10E12/L Normal 3.80-5.20 [facility] Comment on above: Performed By: #### U PCR, DSU #### [facility] ([id number]) [address], [address] [place] [address] WBC (Bld) [#/Vol] 20.5 10*3/uL High 4.0-11.0 [facility] Comment on above: Performed By: #### U PCR, DSU #### [facility] ([id number]) [address], [address] [place] [address] COMPREHENSIVE METABOLIC PANE Yasmani 10-11-2023 Albumin [Mass/Vol] 3.2 g/dL Normal 3.2-5.3 [facility] Comment on above: Performed By: #### U PCR, DSU #### [facility] ([id number]) [address], [address] [place] [address] ALP [Catalytic activity/Vol] 58 U/L Normal 39-130 [facility] Comment on above: Performed By: #### U PCR, DSU #### [facility] ([id number]) [address], [address] [place] [address] ALT [Catalytic activity/Vol] 13 U/L Normal 0-31 [facility] Comment on above: Performed By: #### U PCR, DSU #### [facility] ([id number]) [address], [address] [place] [address] Anion gap [Moles/Vol] 10 mmol/L Normal 5-15 [facility] Comment on above: Performed By: #### U PCR, DSU #### [facility] ([id number]) [address], [address] [place] [address] AST [Catalytic activity/Vol] 19 U/L Normal 0-41 [facility] Comment on above: Performed By: #### U PCR, DSU #### [facility] ([id number]) [address], [address] [place] [address] Bilirubin [Mass/Vol] 0.2 mg/dL Low 0.3-1.2 [facility] Comment on above: Performed By: #### U PCR, DSU #### [facility] ([id number]) [address], [address] [place] [address] Calcium [Mass/Vol] 8.1 mg/dL Low 8.5-10.5 [facility] Comment on above: Performed By: #### U PCR, DSU #### [facility] ([id number]) [address], [address] [place] [address] Chloride [Moles/Vol] 103 mmol/L Normal 98-109 [facility] Comment on above: Performed By: #### U PCR, DSU #### [facility] ([id number]) [address], [address] [place] [address] CO2 [Moles/Vol] 27 mmol/L Normal 22-32 [facility] Comment on above: Performed By: #### U PCR, DSU #### [facility] ([id number]) [address], [address] [place] [address] Creatinine [Mass/Vol] 0.73 mg/dL Normal 0.40-1.00 [facility] Comment on above: Result Comment: METH OD TRACEABLE TO IDMS STANDARD Performed By: #### U PCR, DSU #### [facility] ([id number]) [address], [address] [place] [address] eGFR (CKD-EPI) NON-RACE DEPENDENT >90 Normal >59 [facility] Comment on above: Result Comment: Reported eGFR is based on the CKD-EPI 2020 equation that does not use a race coefficient. Performed By: #### U PCR, DSU #### [facility] ([id number]) [address], [address] [place] [address] Glucose [Mass/Vol] 79 mg/dL Normal 65-99 [facility] Comment on above: Performed By: #### U PCR, DSU #### [facility] ([id number]) [address], [address] [place] [address] Potassium [Moles/Vol] 4.1 mmol/L Normal 3.5-5.0 [facility] Comment on above: Performed By: #### U PCR, DSU #### [facility] ([id number]) [address], [address] [place] [address] Protein [Mass/Vol] 5.9 g/dL Low 6.0-8.0 [facility] Comment on above: Performed By: #### U PCR, DSU #### [facility] ([id number]) [address], [address] [place] [address] Sodium [Moles/Vol] 140 mmol/L Normal 134-146 [facility] Comment on above: Performed By: #### U PCR, DSU #### [facility] ([id number]) [address] [address] [place] [address] Urea nitrogen [Mass/Vol] 21 mg/dL Normal 5-23 [facility] Comment on above: Performed By: #### U PCR, DSU #### [facility] ([id number]) [address], [address] [place] [address] CAPILLARY BLOOD GASon 2023 HERIBERTO'S TEST Normal [facility] Comment on above: Performed By: #### U PCR, DSU #### [facility] ([id number]) [address], [address] [place] [address] BASE,DEFICIT 4.0 MMOL/L High 0.0-2.0 [facility] Comment on above: Performed By: #### U PCR, DSU #### [facility] ([id number]) [address], [address] [place] [address] Body temperature 98.6 [degF] Normal 37.0 [facility] Comment on above: Performed By: #### U PCR, DSU #### [facility] ([id number]) [address], [address] [place] [address] HCO3 (Bld) [Moles/Vol] 22.3 mmol/L Normal 20.0-24.0 [facility] Comment on above: Performed By: #### U PCR, DSU #### [facility] ([id number]) [address], [address] [place] [address] INSP. O2 CONC. 35 % Normal [facility] Comment on above: Performed By: #### U PCR, DSU #### [facility] ([id number]) [address], [address] [place] [address] Oxygen saturation in Blood 37.0 % Low >80.0 [facility] Comment on above: Performed By: #### U PCR, DSU #### [facility] ([id number]) [address], [address] [place] [address] OXYGEN SOURCE Vent Normal [facility] Comment on above: Performed By: #### U PCR, DSU #### [facility] ([id number]) [address], [address] [place] [address] PCO2, CAPILLARY 42.3 MMHG Normal 35-45 [facility] Comment on above: Performed By: #### U PCR, DSU #### [facility] ([id number]) [address], [address] [place] [address] PH, CAPILLARY 7.330 Normal 7.330-7.490 [facility] Comment on above: Performed By: #### U PCR, DSU #### [facility] ([id number]) [address], [address] [place] [address] PO2, CAPILLARY 23 MMHG Low 35-45 [facility] Comment on above: Performed By: #### U PCR, DSU #### [facility] ([id number]) [address], [address] [place] [address] SAMPLE SITE RHeel Normal [facility] Comment on above: Performed By: #### U PCR, DSU #### [facility] ([id number]) [address], [address] [place] [address] SAMPLE TYPE CAPILLARY Normal [facility] Comment on above: Performed By: #### U PCR, DSU #### [facility] ([id number]) [address], [address] [place] [address] CBC AND AUTO DIFFon 30-20 24 Band form neutrophils/100 WBC (Bld) 1.0 % Normal [facility] Comment on above: Performed By: #### U PCR, DSU #### [facility] ([id number]) [address], [address] [place] [address] Erythrocyte distribution width (RBC) [Ratio] 13.4 % Normal 11.5-15.0 [facility] Comment on above: Performed By: #### U PCR, DSU #### [facility] ([id number]) [address], [address] [place] [address] Hematocrit (Bld) [Volume fraction] 35.2 % Normal 35-47 [facility] Comment on above: Performed By: #### U PCR, DSU #### [facility] ([id number]) [address], [address] [place] [address] Hemoglobin (Bld) [Mass/Vol] 12.2 g/dL Normal 11.7-15.5 [facility] Comment on above: Performed By: #### U PCR, DSU #### [facility] ([id number]) [address], [address] [place] [address] Lymphocytes (Bld) [#/Vol] 4.0 10*3/uL High 1.0-3.5 [facility] Comment on above: Performed By: #### U PCR, DSU #### [facility] ([id number]) [address], [address] [place] [address] Lymphocytes/100 WBC (Bld) 16.0 % Normal [facility] Comment on above: Performed By: #### U PCR, DSU #### [facility] ([id number]) [address], [address] [place] [address] MCH (RBC) [Entitic mass] 30.7 pg Normal 27-34 [facility] Comment on above: Performed By: #### U PCR, DSU #### [facility] ([id number]) [address], [address] [place] [address] MCHC (RBC) [Mass/Vol] 34.6 g/dL Normal 32-36 [facility] Comment on above: Performed By: #### U PCR, DSU #### [facility] ([id number]) [address], [address] [place] [address] MCV (RBC) [Entitic vol] 89 fL Normal 80-100 [facility] Comment on above: Performed By: #### U PCR, DSU #### [facility] ([id number]) [address], [address] [place] [address] Monocytes (Bld) [#/Vol] 1.3 10*3/uL High 0-0.9 [facility] Comment on above: Performed By: #### U PCR, DSU #### [facility] ([id number]) [address], [address] [place] [address] Monocytes/100 WBC (Bld) 5.0 % Normal [facility] Comment on above: Performed By: #### U PCR, DSU #### [facility] ([id number]) [address], [address] [place] [address] Neutrophils (Bld) [#/Vol] 19.9 10*3/uL High 1.5-6.6 [facility] Comment on above: Performed By: #### U PCR, DSU #### [facility] ([id number]) [address], [address] [place] [address] Platelet mean volume (Bld) [Entitic vol] 8.0 fL Normal 7-12 [facility] Comment on above: Performed By: #### U PCR, DSU #### [facility] ([id number]) [address], [address] [place] [address] Platelets (Bld) [#/Vol] 375 10*3/uL Normal 150-450 [facility] Comment on above: Performed By: #### U PCR, DSU #### [facility] ([id number]) [address] [address] [place] [address] RBC COUNT 3.97 X10E12/L Normal 3.80-5.20 [facility] Comment on above: Performed By: #### U PCR, DSU #### [facility] ([id number]) [address], [address] [place] [address] RBC morphology finding Nom (Bld) NORMAL Normal [facility] Comment on above: Performed By: #### U PCR, DSU #### [facility] ([id number]) [address], [address] [place] [address] SEG NEUTROPHIL 78.0 % Normal [facility] Comment on above: Performed By: #### U PCR, DSU #### [facility] ([id number]) [address], [address] [place] [address] WBC (Bld) [#/Vol] 25.2 10*3/uL High 4.0-11.0 [facility] Comment on above: Performed By: #### U PCR DSU #### [facility] ([id number]) [address], [address] [place] [address] COMPREHENSIVE METABOLIC PANE Yasmani 10-10-2023 Albumin [Mass/Vol] 3.3 g/dL Normal 3.2-5.3 [facility] [place] [facility] Comment on above: Performed By: #### U PCR DSU #### [facility] ([id number]) [address], [address] [place] [address] ALP [Catalytic activity/Vol] 74 U/L Normal 39-130 [facility] Comment on above: Performed By: #### U PCR DSU #### [facility] ([id number]) [address], [address] [place] [address] ALT [Catalytic activity/Vol] 16 U/L Normal 0-31 [facility] Comment on above: Performed By: #### U PCR, DSU #### [facility] ([id number]) [address], [address] [place] [address] Anion gap [Moles/Vol] 12 mmol/L Normal 5-15 [facility] Comment on above: Performed By: #### U PCR, DSU #### [facility] ([id number]) [address], [address] [place] [address] AST [Catalytic activity/Vol] 20 U/L Normal 0-41 [facility] Comment on above: Performed By: #### U PCR, DSU #### [facility] ([id number]) [address], [address] [place] [address] Bilirubin [Mass/Vol] 0.2 mg/dL Low 0.3-1.2 [facility] Comment on above: Performed By: #### U PCR, DSU #### [facility] ([id number]) [address], [address] [place] [address] Calcium [Mass/Vol] 7.6 mg/dL Low 8.5-10.5 [facility] [place] [facility] Comment on above: Performed By: #### U PCR, DSU #### [facility] ([id number]) [address], [address] [place] [address] Chloride [Moles/Vol] 100 mmol/L Normal 98-109 [facility] Comment on above: Performed By: #### U PCR, DSU #### [facility] ([id number]) [address], [address] [place] [address] CO2 [Moles/Vol] 24 mmol/L Normal 22-32 [facility] Comment on above: Performed By: #### U PCR, DSU #### [facility] ([id number]) [address], [address] [place] [address] Creatinine [Mass/Vol] 0.71 mg/dL Normal 0.40-1.00 [facility] Comment on above: Result Comment: METH OD TRACEABLE TO IDMS STANDARD Performed By: #### U PCR, DSU #### [facility] ([id number]) [address], [address] [place] [address] eGFR (CKD-EPI) NON-RACE DEPENDENT >90 Normal >59 [facility] Comment on above: Result Comment: Reported eGFR is based on the CKD-EPI 2020 equation that does not use a race coefficient. Performed By: #### U PCR, DSU #### [facility] ([id number]) [address], [address] [place] [address] Glucose [Mass/Vol] 101 mg/dL High 65-99 [facility] [place] [facility] Comment on above: Performed By: #### U PCR, DSU #### [facility] ([id number]) [address], [address] [place] [address] Potassium [Moles/Vol] 3.9 mmol/L Normal 3.5-5.0 [facility] Comment on above: Performed By: #### U PCR DSU #### [facility] ([id number]) [address], [address] [place] [address] Protein [Mass/Vol] 6.3 g/dL Normal 6.0-8.0 [facility] [place] [facility] Comment on above: Performed By: #### U PCR DSU #### [facility] ([id number]) [address], [address] [place] [address] Sodium [Moles/Vol] 136 mmol/L Normal 134-146 [facility] [place] [facility] Comment on above: Performed By: #### U PCR, DSU #### [facility] ([id number]) [address], [address] [place] [address] Urea nitrogen [Mass/Vol] 13 mg/dL Normal 5-23 [facility] Comment on above: Performed By: #### U PCR, DSU #### [facility] ([id number]) [address], [address] [place] [address] Albumin [Mass/Vol] 3.3 g/dL Normal 3.2-5.3 [facility] [place] [facility] Comment on above: Performed By: #### U PCR, DSU #### [facility] ([id number]) [address], [address] [place] [address] ALP [Catalytic activity/Vol] 74 U/L Normal 39-130 [facility] Comment on above: Performed By: #### U PCR, DSU #### [facility] ([id number]) [address], [address] [place] [address] ALT [Catalytic activity/Vol] 19 U/L Normal 0-31 [facility] Comment on above: Performed By: #### U PCR, DSU #### [facility] ([id number]) [address], [address] [place] [address] Anion gap [Moles/Vol] 13 mmol/L Normal 5-15 [facility] Comment on above: Performed By: #### U PCR DSU #### [facility] ([id number]) [address], [address] [place] [address] AST [Catalytic activity/Vol] 24 U/L Normal 0-41 [facility] Comment on above: Performed By: #### U PCR DSU #### [facility] ([id number]) [address], [address] [place] [address] Bilirubin [Mass/Vol] 0.3 mg/dL Normal 0.3-1.2 [facility] Comment on above: Performed By: #### U PCR, DSU #### [facility] ([id number]) [address], [address] [place] [address] Calcium [Mass/Vol] 8.1 mg/dL Low 8.5-10.5 [facility] [place] [facility] Comment on above: Performed By: #### U PCR, DSU #### [facility] ([id number]) [address], [address] [place] [address] Chloride [Moles/Vol] 102 mmol/L Normal 98-109 [facility] Comment on above: Performed By: #### U PCR, DSU #### [facility] ([id number]) [address], [address] [place] [address] CO2 [Moles/Vol] 22 mmol/L Normal 22-32 [facility] Comment on above: Performed By: #### U PCR, DSU #### [facility] ([id number]) [address] [place] [address] Creatinine [Mass/Vol] 0.78 mg/dL Normal 0.40-1.00 [facility] Comment on above: Result Comment: METH OD TRACEABLE TO IDMS STANDARD Performed By: #### U PCR, DSU #### [facility] ([id number]) [address] [place] [address] eGFR (CKD-EPI) NON-RACE DEPENDENT >90 Normal >59 [facility] Comment on above: Result Comment: Reported eGFR is based on the CKD-EPI 2020 equation that does not use a race coefficient. Performed By: #### U PCR, DSU #### [facility] ([id number]) [address] [place] [address] Glucose [Mass/Vol] 118 mg/dL High 65-99 [facility] [place] [facility] Comment on above: Performed By: #### U PCR, DSU #### [facility] ([id number]) [address] [place] [address] Potassium [Moles/Vol] 4.2 mmol/L Normal 3.5-5.0 [facility] Comment on above: Performed By: #### U PCR, DSU #### [facility] ([id number]) [address] [address] [place] [address] Protein [Mass/Vol] 6.2 g/dL Normal 6.0-8.0 [facility] [place] [facility] Comment on above: Performed By: #### U PCR, DSU #### [facility] ([id number]) [address], [address] [place] [address] Sodium [Moles/Vol] 137 mmol/L Normal 134-146 [facility] [place] [facility] Comment on above: Performed By: #### U PCR, DSU #### [facility] ([id number]) [address], [address] [place] [address] Urea nitrogen [Mass/Vol] 16 mg/dL Normal 5-23 [facility] Comment on above: Performed By: #### U PCR, DSU #### [facility] ([id number]) [address], [address] [place] [address] CORD ARTERIAL GASon 10-10-19 24 HERIBERTO'S TEST Normal [facility] Comment on above: Performed By: #### A CA, 5124-3, 98884-0, 39968-1, 50261-9 #### [facility] ([id number]) [address], [address] [place] [address] BASE,DEFICIT 5.0 MMOL/L High 0.0-2.0 [facility] Comment on above: Performed By: #### A CA, 5124-3, 43214-8, 41706-2, 53273-8 #### [facility] ([id number]) [address], [address] [place] [address] HCO3 (Bld) [Moles/Vol] 20.2 mmol/L Low 22-26 [facility] Comment on above: Performed By: #### A CA, 5124-3, 11415-5, 98255-0, 14596-4 #### [facility] ([id number]) [address], [address] [place] [address] Oxygen (Bld) [Partial pressure] 21 mm[Hg] Normal 12-24 [facility] Comment on above: Performed By: #### A CA, 5124-3, 37294-9, 38308-0, 57024-0 #### [facility] ([id number]) [address], [address] [place] [address] Oxygen saturation in Blood 30.0 % Normal 7.1-39.5 [facility] Comment on above: Performed By: #### A CA, 5124-3, 28647-1, 22752-8, 94167-1 #### [facility] ([id number]) [address], [address] [place] [address] OXYGEN SOURCE RoomAir Normal [facility] Comment on above: Performed By: #### A CA, 5124-3, 46115-1, 94712-6, 14339-8 #### [facility] ([id number]) [address], [address] [place] [address] PCO2 39.1 MMHG Low 40.8-57.6 [facility] Comment on above: Performed By: #### A CA, 5124-3, 24133-5, 11945-9, 57573-6 #### [facility] ([id number]) [address], [address] [place] [address] pH (Bld) 7.321 [pH] High 7.24-7.30 [facility] Comment on above: Performed By: #### A CA, 5124-3, 61110-5, 30142-0, 63101-9 #### [facility] ([id number]) [address], [address] [place] [address] SAMPLE SITE ArtCord Normal [facility] Comment on above: Performed By: #### A CA, 5124-3, 80239-4, 45244-4, 96155-4 #### [facility] ([id number]) [address], [address] [place] [address] SAMPLE TYPE UMBILICALCORD Normal [facility] Comment on above: Performed By: #### A CA, 5124-3, 99750-3, 42450-5, 57336-0 #### [facility] ([id number]) [address], [address] [place] [address] CORD VENOUS GASon 10-10-2023 HERIBERTO'S TEST Normal [facility] Comment on above: Performed By: #### A CA, 5124-3, 92073-9, 03281-6, 71051-4 #### [facility] ([id number]) [address], [address] [place] [address] BASE,DEFICIT 4.0 MMOL/L High 0.0-2.0 [facility] Comment on above: Performed By: #### A CA, 5124-3, 08677-3, 10556-0, 47140-4 #### [facility] ([id number]) [address], [address] [place] [address] HCO3 (Bld) [Moles/Vol] 22.3 mmol/L Normal 20.0-24.0 [facility] Comment on above: Performed By: #### A CA, 5124-3, 34916-9, 48661-1, 37918-7 #### [facility] ([id number]) [address], [address] [place] [address] Oxygen (Bld) [Partial pressure] 17 mm[Hg] Low 22-35 [facility] Comment on above: Performed By: #### A CA, 5124-3, 64828-4, 47765-7, 63978-3 #### [facility] ([id number]) [address], [address] [place] [address] Oxygen saturation in Blood 20.0 % Low 32.5-66.3 [facility] Comment on above: Performed By: #### A CA, 5124-3, 56551-2, 69438-2, 38425-5 #### [facility] ([id number]) [address], [address] [place] [address] OXYGEN SOURCE RoomAir Normal [facility] Comment on above: Performed By: #### A CA, 5124-3, 11109-3, 99253-5, 05224-5 #### [facility] ([id number]) [address], [address] [place] [address] PCO2 43.8 MMHG Normal 32.6-43.8 [facility] Comment on above: Performed By: #### A CA, 5124-3, 67130-2, 79511-6, 74753-3 #### [facility] ([id number]) [address], [address] [place] [address] pH (Bld) 7.315 [pH] Normal 7.25-7.37 [facility] Comment on above: Performed By: #### A CA, 5124-3, 86755-4, 63902-9, 00206-8 #### [facility] ([id number]) [address], [address] [place] [address] SAMPLE SITE VenCord Normal [facility] Comment on above: Performed By: #### A CA, 5124-3, 87824-0, 79555-5, 67255-3 #### [facility] ([id number]) [address], [address] [place] [address] SAMPLE TYPE UMBILICALCORD Normal [facility] Comment on above: Performed By: #### A CA, 5124-3, 37638-6, 22927-5, 30324-2 #### [facility] ([id number]) [address], [address] [place] [address] Surgical Pathologyon 024 Surgical Pathology Normal [facility] [place] [facility] Comment on above: Result Comment: [facility] [address] [place], [place] [address] Surgical Pathology Consultation Patient Name:SISI MORA:1995 (Age: 28)Gender:FTaken:10/09/2023eported:10/14/2023hysician(s):Sue Holland M.D. ([id number])Copy To: Rec. #:[id number]: #[id number] Final Pathologic Diagnosis Bilateral fallopian tubes: Benign fallopian tubes. Report Electronically Signed Out cjb/10/14/2023britany Cifuentes MD Interpretation performed at [facility], [address] [place] [address], License number: [id number]. Clinical History Pre-eclampsia with severe features. Gross Description Received in formalin labeled PALMER, left and right fallopian tube are two [...] (inked tube) is submitted in cassette A, public utilities sales representative cross-sections of fallopian tube (inked) in cassette B, perpendicularly sectioned fimbria (uninked tube) in cassette C, and public utilities sales representative cross-sections of fallopian tube (uninked) in cassette D. (4, ss, [id number], m1) SHIV finney/10/12/2023GR Specimen(s) Received Right and left fallopian tubes Fee Codes(s): 1; [address] BETA-2 GP1 AB PANELon 2023 BETA-2 GP1 IgA <2.0 Normal 0.0-19.9 [facility] Comment on above: Performed By: #### A CA, 5124-3, 16487-0, 04444-6, 41181-5 #### [facility] ([id number]) [address] [facility] [place] [address] BETA-2 GP1 IgG <1.4 Normal 0.0-19.9 [facility] Comment on above: Performed By: #### A PARUL, 5124-3, 15369-1, 87849-6, 39847-7 #### [facility] ([id number]) [address], [address] [place] [address] BETA-2 GP1 IgM <1.5 Normal 0.0-19.9 [facility] Comment on above: Performed By: #### A PARUL, 5124-3, 59783-6, 80484-7, 57895-1 #### [facility] ([id number]) [address], [facility] [address] [place] [address] CBC AND AUTO DIFFon 10-09-19 24 ABSOLUTE BASOPHIL 0.3 X10E9/L High 0.0-0.2 [facility] [place] [facility] Comment on above: Performed By: #### A PARUL, 5124-3, 48154-1, 47888-9, 48859-2 #### [facility] ([id number]) [address], [address] [place] [address] ABSOLUTE NEUTROPHIL 15.1 X10E9/L High 1.5-6.6 [facility] Comment on above: Performed By: #### A PARUL, 5124-3, 65495-0, 76448-9, 18692-3 #### [facility] ([id number]) [address] [place] [address] Basophils/100 WBC (Bld) 1.5 % Normal [facility] Comment on above: Performed By: #### A PARUL, 5124-3, 36201-8, 63301-6, 29810-6 #### [facility] ([id number]) [address] [place] [address] Eosinophils (Bld) [#/Vol] 0.0 10*3/uL Normal 0.0-0.4 [facility] Comment on above: Performed By: #### A CA, 5124-3, 76402-9, 03160-4, 29018-7 #### [facility] ([id number]) [address] [address] Eosinophils/100 WBC (Bld) 0.1 % Normal [facility] Comment on above: Performed By: #### A CA, 5124-3, 49875-2, 97488-2, 42143-9 #### [facility] ([id number]) [address] [address] Erythrocyte distribution width (RBC) [Ratio] 12.7 % Normal 11.5-15.0 [facility] Comment on above: Performed By: #### A PARUL, 5124-3, 67502-8, 90940-9, 51342-7 #### [facility] ([id number]) [address] [address] Hematocrit (Bld) [Volume fraction] 38.4 % Normal 35-47 [facility] Comment on above: Performed By: #### A PARUL, 5124-3, 16968-3, 82844-4, 44489-6 #### [facility] ([id number]) [address] [address] Hemoglobin (Bld) [Mass/Vol] 12.9 g/dL Normal 11.7-15.5 [facility] Comment on above: Performed By: #### A CA, 5124-3, 63572-0, 45834-5, 07793-7 #### [facility] ([id number]) [address] [address] Lymphocytes (Bld) [#/Vol] 3.7 10*3/uL High 1.0-3.5 [facility] Comment on above: Performed By: #### A PARUL, 5124-3, 04676-4, 11612-8, 67215-8 #### [facility] ([id number]) [address] [address] [place] [address] Lymphocytes/100 WBC (Bld) 18.7 % Normal [facility] Comment on above: Performed By: #### A CA, 5124-3, 36462-6, 34750-4, 55424-3 #### [facility] ([id number]) [address] [address] MCH (RBC) [Entitic mass] 30.1 pg Normal 27-34 [facility] Comment on above: Performed By: #### A CA, 5124-3, 16771-2, 54238-2, 57839-3 #### [facility] ([id number]) [address] [address] MCHC (RBC) [Mass/Vol] 33.7 g/dL Normal 32-36 [facility] Comment on above: Performed By: #### A CA, 5124-3, 61404-4, 69360-3, 17419-3 #### [facility] ([id number]) [address] [address] MCV (RBC) [Entitic vol] 89 fL Normal 80-100 [facility] Comment on above: Performed By: #### A CA, 5124-3, 09554-9, 98920-9, 70997-4 #### [facility] ([id number]) [address] [address] Monocytes (Bld) [#/Vol] 0.6 10*3/uL Normal 0-0.9 [facility] Comment on above: Performed By: #### A CA, 5124-3, 55531-9, 09090-4, 17287-4 #### [facility] ([id number]) [address] [address] Monocytes/100 WBC (Bld) 3.1 % Normal [facility] Comment on above: Performed By: #### A PARUL, 5124-3, 59894-4, 02665-6, 80219-5 #### [facility] ([id number]) [address], [address] [place] [address] Neutrophils/100 WBC (Bld) 76.6 % Normal [facility] Comment on above: Performed By: #### A CA, 5124-3, 17509-1, 98267-3, 94968-9 #### [facility] ([id number]) [address], [facility] [address] [place] [address] Platelet mean volume (Bld) [Entitic vol] 8.2 fL Normal 7-12 [facility] Comment on above: Performed By: #### A PARUL, 5124-3, 13693-8, 30511-4, 69841-0 #### [facility] ([id number]) [address], [address] [place] [address] Platelets (Bld) [#/Vol] 434 10*3/uL Normal 150-450 [facility] Comment on above: Performed By: #### A PARUL, 5124-3, 03902-3, 89140-2, 96878-4 #### [facility] ([id number]) [address], [address] [place] [address] RBC COUNT 4.30 X10E12/L Normal 3.80-5.20 [facility] Comment on above: Performed By: #### A PARUL, 5124-3, 24535-6, 22845-2, 16462-9 #### [facility] ([id number]) [address], [address] [place] [address] WBC (Bld) [#/Vol] 19.7 10*3/uL High 4.0-11.0 [facility] Comment on above: Performed By: #### A CA, 5124-3, 34189-8, 06964-2, 78147-0 #### [facility] ([id number]) [address] [address] COMPLETE BLOOD COUNTon 10-08 Erythrocyte distribution width (RBC) [Ratio] 13.0 % Normal 11.5-15.0 [facility] Comment on above: Performed By: #### A CA, 5124-3, 44755-2, 63415-6, 13795-8 #### [facility] ([id number]) [address] [address] Hematocrit (Bld) [Volume fraction] 38.0 % Normal 35-47 [facility] Comment on above: Performed By: #### A CA, 5124-3, 92864-9, 69849-4, 28772-0 #### [facility] ([id number]) [address] [address] Hemoglobin (Bld) [Mass/Vol] 12.9 g/dL Normal 11.7-15.5 [facility] Comment on above: Performed By: #### A CA, 5124-3, 84286-2, 60331-3, 97313-1 #### [facility] ([id number]) [address] [address] [place] [address] MCH (RBC) [Entitic mass] 30.2 pg Normal 27-34 [facility] Comment on above: Performed By: #### A CA, 5124-3, 85258-8, 45725-9, 21732-4 #### [facility] ([id number]) [address] [address] MCHC (RBC) [Mass/Vol] 34.0 g/dL Normal 32-36 [facility] Comment on above: Performed By: #### A CA, 5124-3, 27973-7, 73612-2, 01366-2 #### [facility] ([id number]) [address], [address] [place] [address] MCV (RBC) [Entitic vol] 89 fL Normal 80-100 [facility] Comment on above: Performed By: #### A CA, 5124-3, 61389-3, 28705-5, 40655-9 #### [facility] ([id number]) [address], [facility] [address] [place] [address] Platelet mean volume (Bld) [Entitic vol] 8.2 fL Normal 7-12 [facility] Comment on above: Performed By: #### A PARUL, 5124-3, 19420-5, 35528-7, 91910-4 #### [facility] ([id number]) [address] [address] [place] [address] Platelets (Bld) [#/Vol] 410 10*3/uL Normal 150-450 [facility] Comment on above: Performed By: #### A CA, 5124-3, 41145-7, 57392-2, 50946-7 #### [facility] ([id number]) [address] [address] [place] [address] RBC COUNT 4.28 X10E12/L Normal 3.80-5.20 [facility] Comment on above: Performed By: #### A CA, 5124-3, 48874-8, 37078-0, 60785-8 #### [facility] ([id number]) [address], [facility] [address] [place] [address] WBC (Bld) [#/Vol] 19.3 10*3/uL High 4.0-11.0 [facility] Comment on above: Performed By: #### A CA, 5124-3, 99196-3, 83075-1, 83802-0 #### [facility] ([id number]) [address], [address] [place] [address] COMPREHENSIVE METABOLIC PANE Yasmani 10-09-2023 Albumin [Mass/Vol] 3.6 g/dL Normal 3.2-5.3 [facility] Comment on above: Performed By: #### A CA, 5124-3, 92881-9, 43732-4, 52334-3 #### [facility] ([id number]) [address], [facility] [address] [place] [address] ALP [Catalytic activity/Vol] 95 U/L Normal 39-130 [facility] Comment on above: Performed By: #### A CA, 5124-3, 05202-8, 30868-6, 00367-3 #### [facility] ([id number]) [address], [facility] [address] [place] [address] ALT [Catalytic activity/Vol] 23 U/L Normal 0-31 [facility] Comment on above: Performed By: #### A CA, 5124-3, 17643-8, 21051-6, 84904-9 #### [facility] ([id number]) [address], [facility] [address] [place] [address] Anion gap [Moles/Vol] 15 mmol/L Normal 5-15 [facility] Comment on above: Performed By: #### A CA, 5124-3, 06881-0, 66239-0, 81070-5 #### [facility] ([id number]) [address], [facility] [address] [place] [address] AST [Catalytic activity/Vol] 24 U/L Normal 0-41 [facility] Comment on above: Performed By: #### A CA, 5124-3, 69054-4, 57158-3, 03909-7 #### [facility] ([id number]) [address], [facility] [address] [place] [address] Bilirubin [Mass/Vol] 0.2 mg/dL Low 0.3-1.2 [facility] Comment on above: Performed By: #### A CA, 5124-3, 89559-2, 49148-3, 37737-9 #### [facility] ([id number]) [address], [facility] [address] [place] [address] Calcium [Mass/Vol] 9.3 mg/dL Normal 8.5-10.5 [facility] Comment on above: Performed By: #### A CA, 5124-3, 15624-2, 10081-1, 91548-9 #### [facility] ([id number]) [address], [facility] [address] [place] [address] Chloride [Moles/Vol] 103 mmol/L Normal 98-109 [facility] Comment on above: Performed By: #### A CA, 5124-3, 42966-9, 91581-8, 33552-5 #### [facility] ([id number]) [address], [facility] [address] [place] [address] CO2 [Moles/Vol] 19 mmol/L Low 22-32 [facility] Comment on above: Performed By: #### A CA, 5124-3, 31524-0, 09904-5, 46367-4 #### [facility] ([id number]) [address], [facility] [address] [place] [address] Creatinine [Mass/Vol] 0.71 mg/dL Normal 0.40-1.00 [facility] Comment on above: Result Comment: METH OD TRACEABLE TO IDMS STANDARD Performed By: #### A CA, 5124-3, 92045-9, 64451-4, 70431-2 #### [facility] ([id number]) [address], [facility] [address] [place] [address] eGFR (CKD-EPI) NON-RACE DEPENDENT >90 Normal >59 [facility] Comment on above: Result Comment: Reported eGFR is based on the CKD-EPI 2020 equation that does not use a race coefficient. Performed By: #### A CA, 5124-3, 26025-9, 18304-5, 80550-4 #### [facility] ([id number]) [address], [address] [place] [address] Glucose [Mass/Vol] 122 mg/dL High 65-99 [facility] Comment on above: Performed By: #### A CA, 5124-3, 62828-8, 89564-7, 01114-2 #### [facility] ([id number]) [address], [address] [place] [address] Potassium [Moles/Vol] 4.0 mmol/L Normal 3.5-5.0 [facility] Comment on above: Performed By: #### A CA, 5124-3, 00612-7, 50498-9, 28004-0 #### [facility] ([id number]) [address], [address] [place] [address] Protein [Mass/Vol] 7.0 g/dL Normal 6.0-8.0 [facility] Comment on above: Performed By: #### A CA, 5124-3, 99032-5, 53322-2, 83800-1 #### [facility] ([id number]) [address], [address] [place] [address] Sodium [Moles/Vol] 137 mmol/L Normal 134-146 [facility] Comment on above: Performed By: #### A CA, 5124-3, 14043-2, 91007-6, 54671-6 #### [facility] ([id number]) [address], [address] [place] [address] Urea nitrogen [Mass/Vol] 20 mg/dL Normal 5-23 [facility] Comment on above: Performed By: #### A CA, 5124-3, 71133-0, 43163-5, 09851-4 #### [facility] ([id number]) [address], [address] [place] [address] Surgical Pathologyon 024 Surgical Pathology Normal [facility] Comment on above: Result Comment: [email or web address] [address] [place] [address] Surgical Pathology Consultation Patient Name:SISI MORA:1995 (Age: 28)Gender:FTaken:4Reported:4Physician(s):Sue Holland M.D. ([id number])Copy To:[facility]:[id number]. Rec. #:[id number]: #[id number] Final Pathologic Diagnosis Placenta: small for gestational age third trimester placenta (193 g, <10th percentile for gestational age of 30 weeks), demonstrating focal placental infarcts, incomplete adaptation for (maternal decidual vasculopathy) and increased syncytial knots. Negative membranes. Unremarkable three-vessel umbilical cord with eccentric insertion. Report Electronically Signed Out ao/4Aceline Steward MD Interpretation performed at [email or web address], [address] [place] [address], License number: [id number]. Clinical History Pre-eclampsia severe, with delivery. Gross [...] Rolled membrane, two sections of cord B-D Facilities Maintenance Engineer sections of placenta (to include rubbery areas in cassette C???D) E Additional rolled membrane (5, ss, [id number],A-E, m5) BALDEMAR royg/10/21/2023O Specimen(s) Received Placenta Fee Codes(s): 1; [address] CBC AND AUTO DIFFon 10-07-19 ABSOLUTE BASOPHIL 0.1 X10E9/L Normal 0.0-0.2 [facility] Comment on above: Performed By: #### A CA, 5124-3, 80273-2, 80423-2, 80386-2 #### [facility] ([id number]) [address], [address] [place] [address] ABSOLUTE NEUTROPHIL 9.6 X10E9/L High 1.5-6.6 [facility] Comment on above: Performed By: #### A CA, 5124-3, 41565-6, 81570-3, 98419-3 #### [facility] ([id number]) [address], [address] [place] [address] Basophils/100 WBC (Bld) 0.7 % Normal [facility] Comment on above: Performed By: #### A CA, 5124-3, 71833-4, 80309-2, 97940-2 #### [facility] ([id number]) [address], [address] [place] [address] Eosinophils (Bld) [#/Vol] 0.2 10*3/uL Normal 0.0-0.4 [facility] Comment on above: Performed By: #### A CA, 5124-3, 02397-2, 43448-2, 48147-1 #### [facility] ([id number]) [address], [address] [place] [address] Eosinophils/100 WBC (Bld) 1.5 % Normal [facility] Comment on above: Performed By: #### A CA, 5124-3, 10175-6, 58956-5, 15940-4 #### [facility] ([id number]) [address] [address] Erythrocyte distribution width (RBC) [Ratio] 12.9 % Normal 11.5-15.0 [facility] Comment on above: Performed By: #### A CA, 5124-3, 60741-0, 47463-9, 40725-7 #### [facility] ([id number]) [address] [address] Hematocrit (Bld) [Volume fraction] 38.9 % Normal 35-47 [facility] Comment on above: Performed By: #### A PARUL, 5124-3, 18786-1, 93907-7, 93576-9 #### [facility] ([id number]) [address], [address] [address] Hemoglobin (Bld) [Mass/Vol] 13.1 g/dL Normal 11.7-15.5 [facility] Comment on above: Performed By: #### A PARUL, 5124-3, 76713-7, 87569-9, 27619-2 #### [facility] ([id number]) [address] [address] Lymphocytes (Bld) [#/Vol] 4.8 10*3/uL High 1.0-3.5 [facility] Comment on above: Performed By: #### A CA, 5124-3, 32770-3, 20707-3, 14348-8 #### [facility] ([id number]) [address] [address] Lymphocytes/100 WBC (Bld) 30.6 % Normal [facility] Comment on above: Performed By: #### A CA, 5124-3, 64235-6, 21039-9, 14329-9 #### [facility] ([id number]) [address] [address] [place] [address] MCH (RBC) [Entitic mass] 30.2 pg Normal 27-34 [facility] Comment on above: Performed By: #### A CA, 5124-3, 12872-2, 32757-9, 94983-6 #### [facility] ([id number]) [address], [address] [address] MCHC (RBC) [Mass/Vol] 33.7 g/dL Normal 32-36 [facility] Comment on above: Performed By: #### A CA, 5124-3, 12970-4, 54690-8, 89876-5 #### [facility] ([id number]) [address] [address] MCV (RBC) [Entitic vol] 90 fL Normal 80-100 [facility] Comment on above: Performed By: #### A CA, 5124-3, 12498-1, 67760-2, 85631-5 #### [facility] ([id number]) [address] [address] Monocytes (Bld) [#/Vol] 0.9 10*3/uL Normal 0-0.9 [facility] Comment on above: Performed By: #### A CA, 5124-3, 67519-6, 80944-3, 30288-0 #### [facility] ([id number]) [address] [address] Monocytes/100 WBC (Bld) 6.0 % Normal [facility] Comment on above: Performed By: #### A CA, 5124-3, 59383-7, 93190-2, 67244-1 #### [facility] ([id number]) [address] [address] [place] [address] Neutrophils/100 WBC (Bld) 61.2 % Normal [facility] Comment on above: Performed By: #### A PARUL, 5124-3, 05368-8, 22396-1, 94025-5 #### [facility] ([id number]) [address], [address] [place] [address] Platelet mean volume (Bld) [Entitic vol] 7.9 fL Normal 7-12 [facility] Comment on above: Performed By: #### A PARUL, 5124-3, 51087-1, 81155-4, 03343-1 #### [facility] ([id number]) [address], [address] [place] [address] Platelets (Bld) [#/Vol] 385 10*3/uL Normal 150-450 [facility] Comment on above: Performed By: #### A PARUL, 5124-3, 40772-7, 06818-7, 41473-4 #### [facility] ([id number]) [address], [address] [place] [address] RBC COUNT 4.35 X10E12/L Normal 3.80-5.20 [facility] Comment on above: Performed By: #### A PARUL, 5124-3, 31571-7, 68393-9, 58012-1 #### [facility] ([id number]) [address], [address] [place] [address] WBC (Bld) [#/Vol] 15.7 10*3/uL High 4.0-11.0 [facility] Comment on above: Performed By: #### A PARUL, 5124-3, 17319-2, 32259-6, 95111-2 #### [facility] ([id number]) [address], [address] [place] [address] COMPREHENSIVE METABOLIC PANE Yasmani 10-07-2023 Albumin [Mass/Vol] 3.2 g/dL Normal 3.2-5.3 [facility] Comment on above: Performed By: #### A CA, 5124-3, 91518-4, 40857-1, 79125-0 #### [facility] ([id number]) [address], [address] [place] [address] ALP [Catalytic activity/Vol] 73 U/L Normal 39-130 [facility] Comment on above: Performed By: #### A CA, 5124-3, 97740-4, 69783-8, 31193-8 #### [facility] ([id number]) [address], [facility] [address] [place] [address] ALT [Catalytic activity/Vol] 14 U/L Normal 0-31 [facility] Comment on above: Performed By: #### A CA, 5124-3, 33046-0, 51992-8, 77721-0 #### [facility] ([id number]) [address], [facility] [address] [place] [address] Anion gap [Moles/Vol] 10 mmol/L Normal 5-15 [facility] Comment on above: Performed By: #### A CA, 5124-3, 21631-6, 33623-3, 18058-8 #### [facility] ([id number]) [address], [facility] [address] [place] [address] AST [Catalytic activity/Vol] 17 U/L Normal 0-41 [facility] Comment on above: Performed By: #### A CA, 5124-3, 75640-1, 48100-1, 97713-1 #### [facility] ([id number]) [address], [facility] [address] [place] [address] Bilirubin [Mass/Vol] 0.2 mg/dL Low 0.3-1.2 [facility] Comment on above: Performed By: #### A CA, 5124-3, 69741-7, 18314-4, 08124-8 #### [facility] ([id number]) [address], [address] [place] [address] Calcium [Mass/Vol] 8.9 mg/dL Normal 8.5-10.5 [facility] Comment on above: Performed By: #### A CA, 5124-3, 73514-5, 14066-4, 23664-4 #### [facility] ([id number]) [address], [address] [place] [address] Chloride [Moles/Vol] 104 mmol/L Normal 98-109 [facility] Comment on above: Performed By: #### A CA, 5124-3, 69435-3, 97069-4, 96500-0 #### [facility] ([id number]) [address], [address] [place] [address] CO2 [Moles/Vol] 24 mmol/L Normal 22-32 [facility] Comment on above: Performed By: #### A CA, 5124-3, 46665-0, 04751-0, 89262-4 #### [facility] ([id number]) [address] [address] [place] [address] Creatinine [Mass/Vol] 0.69 mg/dL Normal 0.40-1.00 [facility] Comment on above: Result Comment: METH OD TRACEABLE TO IDMS STANDARD Performed By: #### A CA, 5124-3, 81479-1, 93698-9, 86131-1 #### [facility] ([id number]) [address], [address] [place] [address] eGFR (CKD-EPI) NON-RACE DEPENDENT >90 Normal >59 [facility] Comment on above: Result Comment: Reported eGFR is based on the CKD-EPI 2020 equation that does not use a race coefficient. Performed By: #### A CA, 5124-3, 87283-6, 17281-7, 56509-8 #### [facility] ([id number]) [address], [address] [place] [address] Glucose [Mass/Vol] 76 mg/dL Normal 65-99 [facility] Comment on above: Performed By: #### A CA, 5124-3, 14468-3, 59552-2, 47219-0 #### [facility] ([id number]) [address], [facility] [address] [place] [address] Potassium [Moles/Vol] 3.9 mmol/L Normal 3.5-5.0 [facility] Comment on above: Performed By: #### A CA, 5124-3, 36643-6, 43539-8, 76240-3 #### [facility] ([id number]) [address], [address] [place] [address] Protein [Mass/Vol] 6.2 g/dL Normal 6.0-8.0 [facility] Comment on above: Performed By: #### A CA, 5124-3, 72807-3, 56583-2, 85000-2 #### [facility] ([id number]) [address], [address] [place] [address] Sodium [Moles/Vol] 138 mmol/L Normal 134-146 [facility] Comment on above: Performed By: #### A CA, 5124-3, 17668-3, 71463-2, 99283-8 #### [facility] ([id number]) [address], [address] [place] [address] Urea nitrogen [Mass/Vol] 17 mg/dL Normal 5-23 [facility] Comment on above: Performed By: #### A CA, 5124-3, 86138-2, 47009-1, 13642-1 #### [facility] ([id number]) [address], [address] [place] [address] CBC AND AUTO DIFFon 10-06-19 24 ABSOLUTE BASOPHIL 0.1 X10E9/L Normal 0.0-0.2 [facility] Comment on above: Performed By: #### A CA, 5124-3, 02263-0, 72788-0, 31048-8 #### [facility] ([id number]) [address], [address] [place] [address] ABSOLUTE NEUTROPHIL 8.4 X10E9/L High 1.5-6.6 [facility] Comment on above: Performed By: #### A CA, 5124-3, 48501-6, 56129-7, 78537-5 #### [facility] ([id number]) [address], [facility] [address] [place] [address] Basophils/100 WBC (Bld) 0.4 % Normal [facility] Comment on above: Performed By: #### A CA, 5124-3, 69050-6, 20690-0, 48215-1 #### [facility] ([id number]) [address], [address] [place] [address] Eosinophils (Bld) [#/Vol] 0.2 10*3/uL Normal 0.0-0.4 [facility] Comment on above: Performed By: #### A CA, 5124-3, 96672-5, 34301-3, 90581-4 #### [facility] ([id number]) [address], [address] [place] [address] Eosinophils/100 WBC (Bld) 1.5 % Normal [facility] Comment on above: Performed By: #### A CA, 5124-3, 91014-3, 67547-2, 48490-1 #### [facility] ([id number]) [address], [address] [place] [address] Erythrocyte distribution width (RBC) [Ratio] 12.6 % Normal 11.5-15.0 [facility] Comment on above: Performed By: #### A CA, 5124-3, 52591-5, 73904-0, 73203-5 #### [facility] ([id number]) [address] [address] [place] [address] Hematocrit (Bld) [Volume fraction] 37.4 % Normal 35-47 [facility] Comment on above: Performed By: #### A CA, 5124-3, 36204-5, 91409-9, 68053-8 #### [facility] ([id number]) [address], [facility] [address] [place] [address] Hemoglobin (Bld) [Mass/Vol] 13.1 g/dL Normal 11.7-15.5 [facility] Comment on above: Performed By: #### A CA, 5124-3, 58971-6, 21439-8, 61371-8 #### [facility] ([id number]) [address] [address] Lymphocytes (Bld) [#/Vol] 5.1 10*3/uL High 1.0-3.5 [facility] Comment on above: Performed By: #### A PARUL, 5124-3, 92550-4, 52263-5, 98772-1 #### [facility] ([id number]) [address] [address] Lymphocytes/100 WBC (Bld) 34.8 % Normal [facility] Comment on above: Performed By: #### A CA, 5124-3, 37096-6, 77914-0, 99097-1 #### [facility] ([id number]) [address] [address] [place] [address] MCH (RBC) [Entitic mass] 30.9 pg Normal 27-34 [facility] Comment on above: Performed By: #### A CA, 5124-3, 02460-0, 01516-0, 07828-9 #### [facility] ([id number]) [address], [facility] [address] [place] [address] MCHC (RBC) [Mass/Vol] 34.9 g/dL Normal 32-36 [facility] Comment on above: Performed By: #### A CA, 5124-3, 88717-6, 10381-8, 39832-0 #### [facility] ([id number]) [address], [facility] [address] [place] [address] MCV (RBC) [Entitic vol] 88 fL Normal 80-100 [facility] Comment on above: Performed By: #### A CA, 5124-3, 91031-9, 85727-3, 55269-2 #### [facility] ([id number]) [address], [address] [address] Monocytes (Bld) [#/Vol] 0.8 10*3/uL Normal 0-0.9 [facility] Comment on above: Performed By: #### A CA, 5124-3, 36741-9, 19103-9, 71452-1 #### [facility] ([id number]) [address], [address] [address] Monocytes/100 WBC (Bld) 5.7 % Normal [facility] Comment on above: Performed By: #### A CA, 5124-3, 93944-9, 68421-0, 04588-0 #### [facility] ([id number]) [address], [facility] [address] [place] [address] Neutrophils/100 WBC (Bld) 57.6 % Normal [facility] Comment on above: Performed By: #### A CA, 5124-3, 79913-1, 31446-6, 48549-7 #### [facility] ([id number]) [address], [address] [place] [address] Platelet mean volume (Bld) [Entitic vol] 7.9 fL Normal 7-12 [facility] Comment on above: Performed By: #### A CA, 5124-3, 87095-4, 66193-3, 53027-6 #### [facility] ([id number]) [address], [address] [address] Platelets (Bld) [#/Vol] 398 10*3/uL Normal 150-450 [facility] Comment on above: Performed By: #### A CA, 5124-3, 72287-3, 09714-4, 17999-9 #### [facility] ([id number]) [address], [address] [place] [address] RBC COUNT 4.23 X10E12/L Normal 3.80-5.20 [facility] Comment on above: Performed By: #### A CA, 5124-3, 17828-4, 94297-8, 56286-6 #### [facility] ([id number]) [address], [address] [address] WBC (Bld) [#/Vol] 14.7 10*3/uL High 4.0-11.0 [facility] Comment on above: Performed By: #### A CA, 5124-3, 41739-4, 69356-9, 42319-6 #### [facility] ([id number]) [address], [facility] [address] [place] [address] COMPREHENSIVE METABOLIC PANE Yasmani 10-06-2023 Albumin [Mass/Vol] 3.2 g/dL Normal 3.2-5.3 [facility] Comment on above: Performed By: #### A CA, 5124-3, 24192-1, 13254-4, 89401-3 #### [facility] ([id number]) [address], [facility] [address] [place] [address] ALP [Catalytic activity/Vol] 71 U/L Normal 39-130 [facility] Comment on above: Performed By: #### A CA, 5124-3, 16836-0, 59147-1, 31360-5 #### [facility] ([id number]) [address], [address] [place] [address] ALT [Catalytic activity/Vol] 12 U/L Normal 0-31 [facility] Comment on above: Performed By: #### A CA, 5124-3, 92611-4, 87745-5, 98507-4 #### [facility] ([id number]) [address], [address] [place] [address] Anion gap [Moles/Vol] 10 mmol/L Normal 5-15 [facility] Comment on above: Performed By: #### A CA, 5124-3, 63630-7, 57808-2, 20467-7 #### [facility] ([id number]) [address], [address] [place] [address] AST [Catalytic activity/Vol] 17 U/L Normal 0-41 [facility] Comment on above: Performed By: #### A CA, 5124-3, 36700-4, 96674-8, 20883-8 #### [facility] ([id number]) [address], [address] [place] [address] Bilirubin [Mass/Vol] 0.3 mg/dL Normal 0.3-1.2 [facility] Comment on above: Performed By: #### A CA, 5124-3, 32322-6, 09935-3, 04775-0 #### [facility] ([id number]) [address], [address] [place] [address] Calcium [Mass/Vol] 9.1 mg/dL Normal 8.5-10.5 [facility] Comment on above: Performed By: #### A CA, 5124-3, 95193-1, 82309-2, 39536-5 #### [facility] ([id number]) [address], [address] [place] [address] Chloride [Moles/Vol] 103 mmol/L Normal 98-109 [facility] Comment on above: Performed By: #### A CA, 5124-3, 07743-4, 49507-5, 42084-7 #### [facility] ([id number]) [address], [address] [place] [address] CO2 [Moles/Vol] 24 mmol/L Normal 22-32 [facility] Comment on above: Performed By: #### A CA, 5124-3, 99284-6, 32705-3, 44315-7 #### [facility] ([id number]) [address], [facility] [address] [place] [address] Creatinine [Mass/Vol] 0.77 mg/dL Normal 0.40-1.00 [facility] Comment on above: Result Comment: METH OD TRACEABLE TO IDMS STANDARD Performed By: #### A PARUL, 5124-3, 57412-6, 77324-7, 22546-8 #### [facility] ([id number]) [address], [address] [place] [address] eGFR (CKD-EPI) NON-RACE DEPENDENT >90 Normal >59 [facility] Comment on above: Result Comment: Reported eGFR is based on the CKD-EPI 2020 equation that does not use a race coefficient. Performed By: #### A PARUL, 5124-3, 65101-7, 50769-1, 10100-0 #### [facility] ([id number]) [address], [address] [place] [address] Glucose [Mass/Vol] 75 mg/dL Normal 65-99 [facility] Comment on above: Performed By: #### A CA, 5124-3, 90233-0, 00993-8, 32922-4 #### [facility] ([id number]) [address], [address] [place] [address] Potassium [Moles/Vol] 4.2 mmol/L Normal 3.5-5.0 [facility] Comment on above: Performed By: #### A CA, 5124-3, 87157-7, 30453-1, 37619-5 #### [facility] ([id number]) [address], [address] [address] Protein [Mass/Vol] 6.3 g/dL Normal 6.0-8.0 [facility] Comment on above: Performed By: #### A CA, 5124-3, 18829-3, 61578-7, 69890-7 #### [facility] ([id number]) [address], [address] [address] Sodium [Moles/Vol] 137 mmol/L Normal 134-146 [facility] Comment on above: Performed By: #### A CA, 5124-3, 49601-6, 27938-2, 07307-2 #### [facility] ([id number]) [address], [address] [address] Urea nitrogen [Mass/Vol] 15 mg/dL Normal 5-23 [facility] Comment on above: Performed By: #### A CA, 5124-3, 79792-2, 79228-2, 04000-8 #### [facility] ([id number]) [address] [address] CBC AND AUTO DIFFon 03-25-20 24 ABSOLUTE BASOPHIL 0.1 X10E9/L Normal 0.0-0.2 [facility] Comment on above: Performed By: #### A CA, 5124-3, 69166-9, 90917-1, 84715-8 #### [facility] ([id number]) [address] [address] ABSOLUTE NEUTROPHIL 9.6 X10E9/L High 1.5-6.6 [facility] Comment on above: Performed By: #### A CA, 5124-3, 64444-5, 93634-4, 01102-2 #### [facility] ([id number]) [address] [address] Basophils/100 WBC (Bld) 0.4 % Normal [facility] Comment on above: Performed By: #### A CA, 5124-3, 50920-6, 82313-3, 88239-7 #### [facility] ([id number]) [address] [address] Eosinophils (Bld) [#/Vol] 0.2 10*3/uL Normal 0.0-0.4 [facility] Comment on above: Performed By: #### A CA, 5124-3, 90709-6, 87940-8, 70581-4 #### [facility] ([id number]) [address] [address] Eosinophils/100 WBC (Bld) 1.2 % Normal [facility] Comment on above: Performed By: #### A CA, 5124-3, 79269-1, 57537-5, 14191-1 #### [facility] ([id number]) [address] [address] Erythrocyte distribution width (RBC) [Ratio] 13.3 % Normal 11.5-15.0 [facility] Comment on above: Performed By: #### A CA, 5124-3, 10787-8, 44782-5, 93534-4 #### [facility] ([id number]) [address] [address] Hematocrit (Bld) [Volume fraction] 39.9 % Normal 35-47 [facility] Comment on above: Performed By: #### A CA, 5124-3, 86909-0, 91276-7, 08240-3 #### [facility] ([id number]) [address] [address] Hemoglobin (Bld) [Mass/Vol] 13.5 g/dL Normal 11.7-15.5 [facility] Comment on above: Performed By: #### A PARUL, 5124-3, 14629-7, 94266-4, 78443-0 #### [facility] ([id number]) [address], [address] [address] Lymphocytes (Bld) [#/Vol] 4.3 10*3/uL High 1.0-3.5 [facility] Comment on above: Performed By: #### A PARUL, 5124-3, 84581-6, 84372-6, 51281-8 #### [facility] ([id number]) [address], [address] [address] Lymphocytes/100 WBC (Bld) 28.8 % Normal [facility] Comment on above: Performed By: #### A PARUL, 5124-3, 83876-6, 54184-9, 99179-7 #### [facility] ([id number]) [address], [address] [address] MCH (RBC) [Entitic mass] 30.0 pg Normal 27-34 [facility] Comment on above: Performed By: #### A PARUL, 5124-3, 50047-6, 79596-8, 50244-9 #### [facility] ([id number]) [address], [facility] [address] [place] [address] MCHC (RBC) [Mass/Vol] 34.0 g/dL Normal 32-36 [facility] Comment on above: Performed By: #### A PARUL, 5124-3, 14471-6, 40935-7, 72914-5 #### [facility] ([id number]) [address], [address] [place] [address] MCV (RBC) [Entitic vol] 88 fL Normal 80-100 [facility] Comment on above: Performed By: #### A PARUL, 5124-3, 30858-5, 25973-9, 79610-0 #### [facility] ([id number]) [address], [address] [place] [address] Monocytes (Bld) [#/Vol] 0.8 10*3/uL Normal 0-0.9 [facility] Comment on above: Performed By: #### A CA, 5124-3, 00112-5, 52890-0, 40809-9 #### [facility] ([id number]) [address], [facility] [address] [place] [address] Monocytes/100 WBC (Bld) 5.1 % Normal [facility] Comment on above: Performed By: #### A CA, 5124-3, 55167-1, 40263-0, 90094-3 #### [facility] ([id number]) [address], [facility] [address] [place] [address] Neutrophils/100 WBC (Bld) 64.5 % Normal [facility] Comment on above: Performed By: #### A CA, 5124-3, 83705-5, 79218-4, 90731-7 #### [facility] ([id number]) [address], [facility] [address] [place] [address] Platelet mean volume (Bld) [Entitic vol] 7.9 fL Normal 7-12 [facility] Comment on above: Performed By: #### A CA, 5124-3, 73818-9, 06350-3, 16726-0 #### [facility] ([id number]) [address], [address] [place] [address] Platelets (Bld) [#/Vol] 420 10*3/uL Normal 150-450 [facility] Comment on above: Performed By: #### A CA, 5124-3, 68112-0, 33927-2, 95383-6 #### [facility] ([id number]) [address], [address] [place] [address] RBC COUNT 4.51 X10E12/L Normal 3.80-5.20 [facility] Comment on above: Performed By: #### A CA, 5124-3, 42976-3, 84241-6, 78703-8 #### [facility] ([id number]) [address], [address] [place] [address] WBC (Bld) [#/Vol] 14.8 10*3/uL High 4.0-11.0 [facility] Comment on above: Performed By: #### A CA, 5124-3, 31608-6, 37698-2, 80551-2 #### [facility] ([id number]) [address], [address] [place] [address] COMPREHENSIVE METABOLIC PANE Yasmani 10-05-2023 Albumin [Mass/Vol] 3.4 g/dL Normal 3.2-5.3 [facility] Comment on above: Performed By: #### A CA, 5124-3, 71985-7, 41222-3, 13562-1 #### [facility] ([id number]) [address], [address] [place] [address] ALP [Catalytic activity/Vol] 79 U/L Normal 39-130 [facility] Comment on above: Performed By: #### A CA, 5124-3, 69917-6, 58823-4, 41773-0 #### [facility] ([id number]) [address], [address] [place] [address] ALT [Catalytic activity/Vol] 12 U/L Normal 0-31 [facility] Comment on above: Performed By: #### A CA, 5124-3, 86570-6, 63028-9, 19618-8 #### [facility] ([id number]) [address], [address] [place] [address] Anion gap [Moles/Vol] 10 mmol/L Normal 5-15 [facility] Comment on above: Performed By: #### A CA, 5124-3, 74535-0, 49755-8, 41401-8 #### [facility] ([id number]) [address], [address] [place] [address] AST [Catalytic activity/Vol] 18 U/L Normal 0-41 [facility] Comment on above: Performed By: #### A CA, 5124-3, 15350-7, 35866-0, 17400-0 #### [facility] ([id number]) [address], [facility] [address] [place] [address] Bilirubin [Mass/Vol] 0.2 mg/dL Low 0.3-1.2 [facility] Comment on above: Performed By: #### A CA, 5124-3, 93939-1, 19077-3, 88189-6 #### [facility] ([id number]) [address], [address] [place] [address] Calcium [Mass/Vol] 9.2 mg/dL Normal 8.5-10.5 [facility] Comment on above: Performed By: #### A CA, 5124-3, 14017-9, 49813-9, 61458-5 #### [facility] ([id number]) [address], [address] [place] [address] Chloride [Moles/Vol] 104 mmol/L Normal 98-109 [facility] Comment on above: Performed By: #### A CA, 5124-3, 04216-7, 88943-1, 69181-5 #### [facility] ([id number]) [address], [address] [place] [address] CO2 [Moles/Vol] 23 mmol/L Normal 22-32 [facility] Comment on above: Performed By: #### A CA, 5124-3, 55673-5, 22242-5, 78001-6 #### [facility] ([id number]) [address] [address] Creatinine [Mass/Vol] 0.78 mg/dL Normal 0.40-1.00 [facility] Comment on above: Result Comment: METH OD TRACEABLE TO IDMS STANDARD Performed By: #### A CA, 5124-3, 54273-9, 79786-8, 22813-0 #### [facility] ([id number]) [address], [address] [address] eGFR (CKD-EPI) NON-RACE DEPENDENT >90 Normal >59 [facility] Comment on above: Result Comment: Reported eGFR is based on the CKD-EPI 2020 equation that does not use a race coefficient. Performed By: #### A CA, 5124-3, 39421-6, 11277-5, 09425-9 #### [facility] ([id number]) [address] [address] Glucose [Mass/Vol] 93 mg/dL Normal 65-99 [facility] Comment on above: Performed By: #### A CA, 5124-3, 73207-7, 13494-1, 38611-6 #### [facility] ([id number]) [address] [address] Potassium [Moles/Vol] 3.9 mmol/L Normal 3.5-5.0 [facility] Comment on above: Performed By: #### A CA, 5124-3, 34477-4, 17517-5, 85320-9 #### [facility] ([id number]) [address] [address] Protein [Mass/Vol] 6.5 g/dL Normal 6.0-8.0 [facility] Comment on above: Performed By: #### A CA, 5124-3, 44473-7, 61902-0, 76024-5 #### [facility] ([id number]) [address], [address] [place] [address] Sodium [Moles/Vol] 137 mmol/L Normal 134-146 [facility] Comment on above: Performed By: #### A CA, 5124-3, 04575-5, 65042-7, 76476-5 #### [facility] ([id number]) [address], [address] [place] [address] Urea nitrogen [Mass/Vol] 15 mg/dL Normal 5-23 [facility] Comment on above: Performed By: #### A CA, 5124-3, 34554-6, 01562-2, 16432-4 #### [facility] ([id number]) [address], [address] [place] [address] CBC AND AUTO DIFFon 10-03- 24 ABSOLUTE BASOPHIL 0.1 X10E9/L Normal 0.0-0.2 [facility] Comment on above: Performed By: #### A CA, 5124-3, 64137-0, 29787-1, 24290-4 #### [facility] ([id number]) [address] [address] [place] [address] ABSOLUTE NEUTROPHIL 8.9 X10E9/L High 1.5-6.6 [facility] Comment on above: Performed By: #### A CA, 5124-3, 23079-1, 13363-7, 65796-9 #### [facility] ([id number]) [address] [address] [place] [address] Basophils/100 WBC (Bld) 0.4 % Normal [facility] Comment on above: Performed By: #### A CA, 5124-3, 24489-4, 38894-3, 85090-4 #### [facility] ([id number]) [address], [address] [place] [address] Eosinophils (Bld) [#/Vol] 0.2 10*3/uL Normal 0.0-0.4 [facility] Comment on above: Performed By: #### A PARUL, 5124-3, 83440-4, 00488-3, 92668-4 #### [facility] ([id number]) [address], [facility] [address] [place] [address] Eosinophils/100 WBC (Bld) 1.5 % Normal [facility] Comment on above: Performed By: #### A PARUL, 5124-3, 59189-3, 36204-5, 99098-3 #### [facility] ([id number]) [address], [facility] [address] [place] [address] Erythrocyte distribution width (RBC) [Ratio] 12.8 % Normal 11.5-15.0 [facility] Comment on above: Performed By: #### A PARUL, 5124-3, 80931-6, 00747-8, 57464-7 #### [facility] ([id number]) [address], [facility] [address] [place] [address] Hematocrit (Bld) [Volume fraction] 39.6 % Normal 35-47 [facility] Comment on above: Performed By: #### A PARUL, 5124-3, 37095-6, 15156-4, 82871-4 #### [facility] ([id number]) [address], [facility] [address] [place] [address] Hemoglobin (Bld) [Mass/Vol] 13.1 g/dL Normal 11.7-15.5 [facility] Comment on above: Performed By: #### A PARUL, 5124-3, 40429-5, 35247-9, 62042-0 #### [facility] ([id number]) [address], [facility] [address] [place] [address] Lymphocytes (Bld) [#/Vol] 5.2 10*3/uL High 1.0-3.5 [facility] Comment on above: Performed By: #### A CA, 5124-3, 14062-3, 13932-2, 79808-9 #### [facility] ([id number]) [address], [facility] [address] [place] [address] Lymphocytes/100 WBC (Bld) 34.0 % Normal [facility] Comment on above: Performed By: #### A CA, 5124-3, 40569-4, 86124-6, 57881-1 #### [facility] ([id number]) [address], [facility] [address] [place] [address] MCH (RBC) [Entitic mass] 30.1 pg Normal 27-34 [facility] Comment on above: Performed By: #### A CA, 5124-3, 93845-6, 21049-3, 65122-1 #### [facility] ([id number]) [address], [facility] [address] [place] [address] MCHC (RBC) [Mass/Vol] 33.2 g/dL Normal 32-36 [facility] Comment on above: Performed By: #### A CA, 5124-3, 50462-1, 50547-6, 09210-9 #### [facility] ([id number]) [address], [address] [address] MCV (RBC) [Entitic vol] 91 fL Normal 80-100 [facility] Comment on above: Performed By: #### A CA, 5124-3, 42435-9, 92252-6, 19544-4 #### [facility] ([id number]) [address] [address] Monocytes (Bld) [#/Vol] 0.8 10*3/uL Normal 0-0.9 [facility] Comment on above: Performed By: #### A CA, 5124-3, 86774-5, 59483-0, 20109-8 #### [facility] ([id number]) [address], [address] [place] [address] Monocytes/100 WBC (Bld) 5.3 % Normal [facility] Comment on above: Performed By: #### A CA, 5124-3, 56837-3, 25521-6, 35929-8 #### [facility] ([id number]) [address], [facility] [address] [place] [address] Neutrophils/100 WBC (Bld) 58.8 % Normal [facility] Comment on above: Performed By: #### A CA, 5124-3, 47143-8, 28152-6, 01558-9 #### [facility] ([id number]) [address], [facility] [address] [place] [address] Platelet mean volume (Bld) [Entitic vol] 8.3 fL Normal 7-12 [facility] Comment on above: Performed By: #### A CA, 5124-3, 36802-0, 44656-3, 10502-7 #### [facility] ([id number]) [address], [facility] [address] [place] [address] Platelets (Bld) [#/Vol] 386 10*3/uL Normal 150-450 [facility] Comment on above: Performed By: #### A CA, 5124-3, 45083-2, 60162-4, 00666-4 #### [facility] ([id number]) [address], [address] [place] [address] RBC COUNT 4.37 X10E12/L Normal 3.80-5.20 [facility] Comment on above: Performed By: #### A CA, 5124-3, 47511-9, 24965-8, 57358-7 #### [facility] ([id number]) [address], [address] [place] [address] WBC (Bld) [#/Vol] 15.2 10*3/uL High 4.0-11.0 [facility] Comment on above: Performed By: #### A CA, 5124-3, 83809-5, 95673-0, 33464-0 #### [facility] ([id number]) [address], [address] [place] [address] COMPREHENSIVE METABOLIC PANE Yasmani 10-04-2023 Albumin [Mass/Vol] 3.2 g/dL Normal 3.2-5.3 [facility] Comment on above: Performed By: #### A CA, 5124-3, 92689-4, 21088-7, 59792-0 #### [facility] ([id number]) [address], [address] [place] [address] ALP [Catalytic activity/Vol] 70 U/L Normal 39-130 [facility] Comment on above: Performed By: #### A CA, 5124-3, 72434-4, 67504-4, 74225-0 #### [facility] ([id number]) [address], [address] [place] [address] ALT [Catalytic activity/Vol] 12 U/L Normal 0-31 [facility] Comment on above: Performed By: #### A CA, 5124-3, 23308-6, 06280-7, 43085-0 #### [facility] ([id number]) [address], [address] [place] [address] Anion gap [Moles/Vol] 10 mmol/L Normal 5-15 [facility] Comment on above: Performed By: #### A CA, 5124-3, 46849-4, 73100-8, 40310-3 #### [facility] ([id number]) [address], [address] [place] [address] AST [Catalytic activity/Vol] 19 U/L Normal 0-41 [facility] Comment on above: Performed By: #### A CA, 5124-3, 55301-5, 79153-7, 29144-7 #### [facility] ([id number]) [address], [address] [place] [address] Bilirubin [Mass/Vol] 0.2 mg/dL Low 0.3-1.2 [facility] Comment on above: Performed By: #### A CA, 5124-3, 56922-6, 10244-0, 65580-0 #### [facility] ([id number]) [address], [address] [place] [address] Calcium [Mass/Vol] 9.0 mg/dL Normal 8.5-10.5 [facility] Comment on above: Performed By: #### A CA, 5124-3, 61858-0, 92475-0, 61946-0 #### [facility] ([id number]) [address], [address] [place] [address] Chloride [Moles/Vol] 105 mmol/L Normal 98-109 [facility] Comment on above: Performed By: #### A CA, 5124-3, 68726-1, 37313-6, 98749-5 #### [facility] ([id number]) [address], [facility] [address] [place] [address] CO2 [Moles/Vol] 24 mmol/L Normal 22-32 [facility] Comment on above: Performed By: #### A CA, 5124-3, 77243-6, 72388-7, 45317-6 #### [facility] ([id number]) [address], [address] [place] [address] Creatinine [Mass/Vol] 0.77 mg/dL Normal 0.40-1.00 [facility] Comment on above: Result Comment: METH OD TRACEABLE TO IDMS STANDARD Performed By: #### A CA, 5124-3, 43352-8, 85287-6, 01826-4 #### [facility] ([id number]) [address] [address] [place] [address] eGFR (CKD-EPI) NON-RACE DEPENDENT >90 Normal >59 [facility] Comment on above: Result Comment: Reported eGFR is based on the CKD-EPI 2020 equation that does not use a race coefficient. Performed By: #### A CA, 5124-3, 70509-8, 93744-9, 82324-7 #### [facility] ([id number]) [address] [address] [place] [address] Glucose [Mass/Vol] 71 mg/dL Normal 65-99 [facility] Comment on above: Performed By: #### A CA, 5124-3, 59382-3, 88304-2, 93823-2 #### [facility] ([id number]) [address] [address] [place] [address] Potassium [Moles/Vol] 4.0 mmol/L Normal 3.5-5.0 [facility] Comment on above: Performed By: #### A CA, 5124-3, 16476-4, 28788-8, 89116-3 #### [facility] ([id number]) [address] [address] [place] [place] [address] Protein [Mass/Vol] 6.3 g/dL Normal 6.0-8.0 [facility] Comment on above: Performed By: #### A CA, 5124-3, 88067-0, 27913-6, 30688-6 #### [facility] ([id number]) [address] [place] [address] Sodium [Moles/Vol] 139 mmol/L Normal 134-146 [facility] Comment on above: Performed By: #### A CA, 5124-3, 31595-9, 77076-6, 90252-6 #### [facility] ([id number]) [address] [place] [address] Urea nitrogen [Mass/Vol] 15 mg/dL Normal 5-23 [facility] Comment on above: Performed By: #### A PARUL, 5124-3, 50615-9, 24695-6, 68210-8 #### [facility] ([id number]) [address] [place] [address] CBC AND AUTO DIFFon 10-03-19 ABSOLUTE BASOPHIL 0.1 X10E9/L Normal 0.0-0.2 [facility] Comment on above: Performed By: #### A CA, 5124-3, 31897-1, 64979-0, 43345-9 #### [facility] ([id number]) [address], [address] [place] [address] ABSOLUTE NEUTROPHIL 9.5 X10E9/L High 1.5-6.6 [facility] Comment on above: Performed By: #### A PARUL, 5124-3, 68230-5, 98108-1, 30452-9 #### [facility] ([id number]) [address], [address] [place] [address] Basophils/100 WBC (Bld) 0.4 % Normal [facility] Comment on above: Performed By: #### A PARUL, 5124-3, 66088-1, 13254-4, 87813-7 #### [facility] ([id number]) [address], [address] [place] [address] Eosinophils (Bld) [#/Vol] 0.1 10*3/uL Normal 0.0-0.4 [facility] Comment on above: Performed By: #### A PARUL, 5124-3, 91597-0, 41241-7, 60865-7 #### [facility] ([id number]) [address], [address] [place] [address] Eosinophils/100 WBC (Bld) 0.8 % Normal [facility] Comment on above: Performed By: #### A PARUL, 5124-3, 77766-5, 24289-3, 94206-6 #### [facility] ([id number]) [address] [place] [address] Erythrocyte distribution width (RBC) [Ratio] 12.9 % Normal 11.5-15.0 [facility] Comment on above: Performed By: #### A CA, 5124-3, 31344-7, 62776-2, 90848-7 #### [facility] ([id number]) [address] [address] Hematocrit (Bld) [Volume fraction] 39.2 % Normal 35-47 [facility] Comment on above: Performed By: #### A CA, 5124-3, 64790-4, 58823-4, 98458-9 #### [facility] ([id number]) [address] [address] Hemoglobin (Bld) [Mass/Vol] 13.0 g/dL Normal 11.7-15.5 [facility] Comment on above: Performed By: #### A CA, 5124-3, 13999-7, 12731-5, 91356-6 #### [facility] ([id number]) [address] [address] Lymphocytes (Bld) [#/Vol] 4.4 10*3/uL High 1.0-3.5 [facility] Comment on above: Performed By: #### A CA, 5124-3, 74751-1, 43289-5, 11410-6 #### [facility] ([id number]) [address] [address] Lymphocytes/100 WBC (Bld) 29.4 % Normal [facility] Comment on above: Performed By: #### A CA, 5124-3, 25769-1, 78463-3, 67111-6 #### [facility] ([id number]) [address], [address] [place] [address] MCH (RBC) [Entitic mass] 30.1 pg Normal 27-34 [facility] Comment on above: Performed By: #### A CA, 5124-3, 33678-2, 45848-7, 02093-3 #### [facility] ([id number]) [address], [address] [place] [address] MCHC (RBC) [Mass/Vol] 33.2 g/dL Normal 32-36 [facility] Comment on above: Performed By: #### A CA, 5124-3, 62520-2, 10542-9, 97498-7 #### [facility] ([id number]) [address], [address] [place] [address] MCV (RBC) [Entitic vol] 91 fL Normal 80-100 [facility] Comment on above: Performed By: #### A CA, 5124-3, 83566-8, 06456-5, 98230-8 #### [facility] ([id number]) [address], [facility] [address] [place] [address] Monocytes (Bld) [#/Vol] 0.9 10*3/uL Normal 0-0.9 [facility] Comment on above: Performed By: #### A CA, 5124-3, 92854-6, 36113-1, 36857-3 #### [facility] ([id number]) [address], [facility] [address] [place] [address] Monocytes/100 WBC (Bld) 6.2 % Normal [facility] Comment on above: Performed By: #### A CA, 5124-3, 74089-1, 37447-7, 24874-3 #### [facility] ([id number]) [address], [address] [place] [address] Neutrophils/100 WBC (Bld) 63.2 % Normal [facility] Comment on above: Performed By: #### A CA, 5124-3, 66235-3, 57348-4, 94325-6 #### [facility] ([id number]) [address], [facility] [address] [place] [address] Platelet mean volume (Bld) [Entitic vol] 8.5 fL Normal 7-12 [facility] Comment on above: Performed By: #### A PARUL, 5124-3, 49097-2, 06744-4, 53977-5 #### [facility] ([id number]) [address], [address] [address] Platelets (Bld) [#/Vol] 359 10*3/uL Normal 150-450 [facility] Comment on above: Performed By: #### A PARUL, 5124-3, 43803-8, 17935-2, 17572-1 #### [facility] ([id number]) [address], [facility] [address] [place] [address] RBC COUNT 4.34 X10E12/L Normal 3.80-5.20 [facility] Comment on above: Performed By: #### A PARUL, 5124-3, 62893-7, 69263-6, 88710-9 #### [facility] ([id number]) [address], [address] [address] WBC (Bld) [#/Vol] 14.9 10*3/uL High 4.0-11.0 [facility] Comment on above: Performed By: #### A PARUL, 5124-3, 31286-8, 01861-7, 04937-0 #### [facility] ([id number]) [address], [facility] [address] [place] [address] COMPREHENSIVE METABOLIC PANE Yasmani 10-03-2023 Albumin [Mass/Vol] 3.3 g/dL Normal 3.2-5.3 [facility] Comment on above: Performed By: #### A PARUL, 5124-3, 14207-4, 01278-8, 42704-4 #### [facility] ([id number]) [address], [address] [place] [address] ALP [Catalytic activity/Vol] 70 U/L Normal 39-130 [facility] Comment on above: Performed By: #### A CA, 5124-3, 12634-3, 93942-1, 05468-6 #### [facility] ([id number]) [address], [address] [place] [address] ALT [Catalytic activity/Vol] 10 U/L Normal 0-31 [facility] Comment on above: Performed By: #### A CA, 5124-3, 38635-6, 53264-6, 54495-2 #### [facility] ([id number]) [address], [address] [place] [address] Anion gap [Moles/Vol] 12 mmol/L Normal 5-15 [facility] Comment on above: Performed By: #### A CA, 5124-3, 82790-6, 48778-4, 08266-5 #### [facility] ([id number]) [address], [facility] [address] [place] [address] AST [Catalytic activity/Vol] 15 U/L Normal 0-41 [facility] Comment on above: Performed By: #### A CA, 5124-3, 49989-1, 08530-0, 69787-7 #### [facility] ([id number]) [address], [facility] [address] [place] [address] Bilirubin [Mass/Vol] 0.3 mg/dL Normal 0.3-1.2 [facility] Comment on above: Performed By: #### A CA, 5124-3, 91465-2, 14461-9, 54166-5 #### [facility] ([id number]) [address], [address] [place] [address] Calcium [Mass/Vol] 9.1 mg/dL Normal 8.5-10.5 [facility] Comment on above: Performed By: #### A CA, 5124-3, 26543-7, 67195-4, 23624-0 #### [facility] ([id number]) [address] [address] Chloride [Moles/Vol] 103 mmol/L Normal 98-109 [facility] Comment on above: Performed By: #### A CA, 5124-3, 29541-6, 74374-5, 67920-8 #### [facility] ([id number]) [address] [address] CO2 [Moles/Vol] 23 mmol/L Normal 22-32 [facility] Comment on above: Performed By: #### A PARUL, 5124-3, 67830-9, 18880-5, 75032-2 #### [facility] ([id number]) [address] [address] Creatinine [Mass/Vol] 0.83 mg/dL Normal 0.40-1.00 [facility] Comment on above: Result Comment: METH OD TRACEABLE TO IDMS STANDARD Performed By: #### A PARUL, 5124-3, 50679-2, 41899-0, 88170-8 #### [facility] ([id number]) [address] [address] eGFR (CKD-EPI) NON-RACE DEPENDENT >90 Normal >59 [facility] Comment on above: Result Comment: Reported eGFR is based on the CKD-EPI 2020 equation that does not use a race coefficient. Performed By: #### A CA, 5124-3, 66400-0, 19032-8, 60256-3 #### [facility] ([id number]) [address] [address] Glucose [Mass/Vol] 68 mg/dL Normal 65-99 [facility] Comment on above: Performed By: #### A CA, 5124-3, 19137-8, 63733-9, 40578-5 #### [facility] ([id number]) [address], [address] [place] [address] Potassium [Moles/Vol] 3.8 mmol/L Normal 3.5-5.0 [facility] Comment on above: Performed By: #### A CA, 5124-3, 12288-3, 00794-8, 34007-4 #### [facility] ([id number]) [address], [facility] [address] [place] [address] Protein [Mass/Vol] 6.4 g/dL Normal 6.0-8.0 [facility] Comment on above: Performed By: #### A PARUL, 5124-3, 90513-7, 64050-3, 30588-2 #### [facility] ([id number]) [address], [address] [place] [address] Sodium [Moles/Vol] 138 mmol/L Normal 134-146 [facility] Comment on above: Performed By: #### A CA, 5124-3, 22190-3, 36279-7, 89764-2 #### [facility] ([id number]) [address], [facility] [address] [place] [address] Urea nitrogen [Mass/Vol] 18 mg/dL Normal 5-23 [facility] Comment on above: Performed By: #### A CA, 5124-3, 67791-1, 91342-8, 01209-9 #### [facility] ([id number]) [address], [address] [address] CBC AND AUTO DIFFon 10-02-19 24 ABSOLUTE BASOPHIL 0.0 X10E9/L Normal 0.0-0.2 [facility] Comment on above: Performed By: #### A PARUL, 5124-3, 24264-6, 57505-2, 04065-3 #### [facility] ([id number]) [address], [address] [address] ABSOLUTE NEUTROPHIL 12.3 X10E9/L High 1.5-6.6 [facility] Comment on above: Performed By: #### A CA, 5124-3, 33441-3, 07624-9, 32731-6 #### [facility] ([id number]) [address], [address] [address] Basophils/100 WBC (Bld) 0.3 % Normal [facility] Comment on above: Performed By: #### A CA, 5124-3, 64988-4, 25904-7, 11888-0 #### [facility] ([id number]) [address] [address] Eosinophils (Bld) [#/Vol] 0.1 10*3/uL Normal 0.0-0.4 [facility] Comment on above: Performed By: #### A CA, 5124-3, 21993-7, 94999-0, 44386-2 #### [facility] ([id number]) [address] [address] Eosinophils/100 WBC (Bld) 0.7 % Normal [facility] Comment on above: Performed By: #### A CA, 5124-3, 28446-5, 77570-4, 08363-1 #### [facility] ([id number]) [address] [address] Erythrocyte distribution width (RBC) [Ratio] 13.3 % Normal 11.5-15.0 [facility] Comment on above: Performed By: #### A CA, 5124-3, 98421-2, 41495-0, 62576-5 #### [facility] ([id number]) [address] [place] [address] Hematocrit (Bld) [Volume fraction] 40.3 % Normal 35-47 [facility] Comment on above: Performed By: #### A CA, 5124-3, 40170-5, 91566-9, 34207-1 #### [facility] ([id number]) [address] [address] Hemoglobin (Bld) [Mass/Vol] 13.4 g/dL Normal 11.7-15.5 [facility] Comment on above: Performed By: #### A PARUL, 5124-3, 67022-3, 64266-9, 25328-2 #### [facility] ([id number]) [address] [address] Lymphocytes (Bld) [#/Vol] 3.0 10*3/uL Normal 1.0-3.5 [facility] Comment on above: Performed By: #### A PARUL, 5124-3, 54832-7, 55239-3, 69119-3 #### [facility] ([id number]) [address] [address] Lymphocytes/100 WBC (Bld) 18.3 % Normal [facility] Comment on above: Performed By: #### A CA, 5124-3, 68220-6, 08928-9, 08728-3 #### [facility] ([id number]) [address] [address] MCH (RBC) [Entitic mass] 30.1 pg Normal 27-34 [facility] Comment on above: Performed By: #### A CA, 5124-3, 87361-4, 61794-3, 68377-2 #### [facility] ([id number]) [address] [address] MCHC (RBC) [Mass/Vol] 33.3 g/dL Normal 32-36 [facility] Comment on above: Performed By: #### A CA, 5124-3, 49220-9, 20754-6, 79586-9 #### [facility] ([id number]) [address], [address] [address] MCV (RBC) [Entitic vol] 90 fL Normal 80-100 [facility] Comment on above: Performed By: #### A CA, 5124-3, 21282-7, 15011-6, 25196-2 #### [facility] ([id number]) [address], [address] [address] Monocytes (Bld) [#/Vol] 1.1 10*3/uL High 0-0.9 [facility] Comment on above: Performed By: #### A CA, 5124-3, 91092-5, 70926-2, 47956-1 #### [facility] ([id number]) [address], [address] [address] Monocytes/100 WBC (Bld) 6.5 % Normal [facility] Comment on above: Performed By: #### A CA, 5124-3, 47951-1, 14237-7, 34610-7 #### [facility] ([id number]) [address], [address] [address] Neutrophils/100 WBC (Bld) 74.2 % Normal [facility] Comment on above: Performed By: #### A CA, 5124-3, 42213-0, 49610-3, 46904-0 #### [facility] ([id number]) [address], [facility] [address] [place] [address] Platelet mean volume (Bld) [Entitic vol] 8.1 fL Normal 7-12 [facility] Comment on above: Performed By: #### A CA, 5124-3, 70828-4, 31079-2, 65220-8 #### [facility] ([id number]) [address], [address] [place] [address] Platelets (Bld) [#/Vol] 353 10*3/uL Normal 150-450 [facility] Comment on above: Performed By: #### A CA, 5124-3, 10239-8, 29558-1, 20062-1 #### [facility] ([id number]) [address], [address] [place] [address] RBC COUNT 4.46 X10E12/L Normal 3.80-5.20 [facility] Comment on above: Performed By: #### A CA, 5124-3, 81570-3, 88597-4, 08641-0 #### [facility] ([id number]) [address], [facility] [address] [place] [address] WBC (Bld) [#/Vol] 16.6 10*3/uL High 4.0-11.0 [facility] Comment on above: Performed By: #### A CA, 5124-3, 89688-6, 05038-7, 06954-4 #### [facility] ([id number]) [address], [address] [place] [address] COMPREHENSIVE METABOLIC PANE Yasmani 10-02-2023 Albumin [Mass/Vol] 3.2 g/dL Normal 3.2-5.3 [facility] Comment on above: Performed By: #### A CA, 5124-3, 62412-5, 80755-0, 49342-1 #### [facility] ([id number]) [address], [address] [place] [address] ALP [Catalytic activity/Vol] 68 U/L Normal 39-130 [facility] Comment on above: Performed By: #### A CA, 5124-3, 09844-2, 88103-5, 79495-5 #### [facility] ([id number]) [address], [address] [place] [address] ALT [Catalytic activity/Vol] 12 U/L Normal 0-31 [facility] Comment on above: Performed By: #### A CA, 5124-3, 33739-1, 87504-5, 34624-6 #### [facility] ([id number]) [address], [address] [place] [address] Anion gap [Moles/Vol] 12 mmol/L Normal 5-15 [facility] Comment on above: Performed By: #### A CA, 5124-3, 62416-0, 49462-2, 99735-8 #### [facility] ([id number]) [address], [address] [place] [address] AST [Catalytic activity/Vol] 18 U/L Normal 0-41 [facility] Comment on above: Performed By: #### A CA, 5124-3, 96560-4, 17540-6, 08599-7 #### [facility] ([id number]) [address], [address] [place] [address] Bilirubin [Mass/Vol] 0.3 mg/dL Normal 0.3-1.2 [facility] Comment on above: Performed By: #### A CA, 5124-3, 24150-3, 17834-1, 56297-0 #### [facility] ([id number]) [address], [address] [place] [address] Calcium [Mass/Vol] 7.9 mg/dL Low 8.5-10.5 [facility] Comment on above: Performed By: #### A CA, 5124-3, 14875-5, 03167-6, 43646-5 #### [facility] ([id number]) [address], [address] [place] [address] Chloride [Moles/Vol] 101 mmol/L Normal 98-109 [facility] Comment on above: Performed By: #### A CA, 5124-3, 73604-7, 98875-4, 08885-5 #### [facility] ([id number]) [address] [address] CO2 [Moles/Vol] 23 mmol/L Normal 22-32 [facility] Comment on above: Performed By: #### A PARUL, 5124-3, 25304-3, 42651-8, 89348-3 #### [facility] ([id number]) [address] [address] Creatinine [Mass/Vol] 0.74 mg/dL Normal 0.40-1.00 [facility] Comment on above: Result Comment: METH OD TRACEABLE TO IDMS STANDARD Performed By: #### A PARUL, 5124-3, 42165-3, 98492-0, 03588-6 #### [facility] ([id number]) [address], [address] [address] eGFR (CKD-EPI) NON-RACE DEPENDENT >90 Normal >59 [facility] Comment on above: Result Comment: Reported eGFR is based on the CKD-EPI 2020 equation that does not use a race coefficient. Performed By: #### A PARUL, 5124-3, 31539-2, 11171-2, 05738-7 #### [facility] ([id number]) [address] [address] Glucose [Mass/Vol] 83 mg/dL Normal 65-99 [facility] Comment on above: Performed By: #### A PARUL, 5124-3, 30719-3, 93125-9, 36136-9 #### [facility] ([id number]) [address] [address] Potassium [Moles/Vol] 4.1 mmol/L Normal 3.5-5.0 [facility] Comment on above: Performed By: #### A PARUL, 5124-3, 78391-4, 89441-8, 34471-3 #### [facility] ([id number]) [address], [address] [place] [address] Protein [Mass/Vol] 6.4 g/dL Normal 6.0-8.0 [facility] Comment on above: Performed By: #### A CA, 5124-3, 73042-9, 61165-9, 34523-1 #### [facility] ([id number]) [address], [address] [place] [address] Sodium [Moles/Vol] 136 mmol/L Normal 134-146 [facility] Comment on above: Performed By: #### A CA, 5124-3, 80158-2, 63279-8, 61042-9 #### [facility] ([id number]) [address] [address] Urea nitrogen [Mass/Vol] 13 mg/dL Normal 5-23 [facility] Comment on above: Performed By: #### A CA, 5124-3, 39186-9, 31276-3, 02748-4 #### [facility] ([id number]) [address], [address] [address] CBC AND AUTO DIFFon 09-30- 24 ABSOLUTE BASOPHIL 0.1 X10E9/L Normal 0.0-0.2 [facility] Comment on above: Performed By: #### A CA, 5124-3, 06556-8, 33446-6, 75416-2 #### [facility] ([id number]) [address] [address] [place] [address] ABSOLUTE NEUTROPHIL 11.2 X10E9/L High 1.5-6.6 [facility] Comment on above: Performed By: #### A CA, 5124-3, 91345-5, 03578-7, 42542-3 #### [facility] ([id number]) [address] [place] [address] Basophils/100 WBC (Bld) 0.6 % Normal [facility] Comment on above: Performed By: #### A CA, 5124-3, 02433-8, 62128-2, 52760-3 #### [facility] ([id number]) [address] [address] Eosinophils (Bld) [#/Vol] 0.1 10*3/uL Normal 0.0-0.4 [facility] Comment on above: Performed By: #### A PARUL, 5124-3, 40043-5, 20919-2, 60808-5 #### [facility] ([id number]) [address] [address] Eosinophils/100 WBC (Bld) 0.5 % Normal [facility] Comment on above: Performed By: #### A PARUL, 5124-3, 38110-0, 92845-9, 73169-6 #### [facility] ([id number]) [address] [address] Erythrocyte distribution width (RBC) [Ratio] 13.0 % Normal 11.5-15.0 [facility] Comment on above: Performed By: #### A PARUL, 5124-3, 59795-2, 78011-3, 08185-4 #### [facility] ([id number]) [address] [address] Hematocrit (Bld) [Volume fraction] 37.4 % Normal 35-47 [facility] Comment on above: Performed By: #### A CA, 5124-3, 36370-5, 95960-4, 89260-8 #### [facility] ([id number]) [address] [address] Hemoglobin (Bld) [Mass/Vol] 13.0 g/dL Normal 11.7-15.5 [facility] Comment on above: Performed By: #### A CA, 5124-3, 06050-7, 88403-8, 23852-9 #### [facility] ([id number]) [address], [address] [address] Lymphocytes (Bld) [#/Vol] 3.4 10*3/uL Normal 1.0-3.5 [facility] Comment on above: Performed By: #### A CA, 5124-3, 18991-0, 60377-5, 28565-6 #### [facility] ([id number]) [address], [address] [address] Lymphocytes/100 WBC (Bld) 21.5 % Normal [facility] Comment on above: Performed By: #### A CA, 5124-3, 45689-5, 03412-2, 85703-2 #### [facility] ([id number]) [address], [address] [address] MCH (RBC) [Entitic mass] 30.8 pg Normal 27-34 [facility] Comment on above: Performed By: #### A CA, 5124-3, 52257-0, 00247-8, 55605-4 #### [facility] ([id number]) [address], [facility] [address] [place] [address] MCHC (RBC) [Mass/Vol] 34.9 g/dL Normal 32-36 [facility] Comment on above: Performed By: #### A CA, 5124-3, 82408-8, 63537-7, 05655-1 #### [facility] ([id number]) [address], [address] [address] MCV (RBC) [Entitic vol] 88 fL Normal 80-100 [facility] Comment on above: Performed By: #### A CA, 5124-3, 89613-9, 27419-8, 80267-1 #### [facility] ([id number]) [address], [facility] [address] [place] [address] Monocytes (Bld) [#/Vol] 0.8 10*3/uL Normal 0-0.9 [facility] Comment on above: Performed By: #### A CA, 5124-3, 86323-8, 21106-0, 33005-7 #### [facility] ([id number]) [address], [address] [address] Monocytes/100 WBC (Bld) 5.2 % Normal [facility] Comment on above: Performed By: #### A CA, 5124-3, 26817-1, 74958-3, 79248-9 #### [facility] ([id number]) [address], [address] [address] Neutrophils/100 WBC (Bld) 72.2 % Normal [facility] Comment on above: Performed By: #### A CA, 5124-3, 86243-3, 53466-4, 26630-4 #### [facility] ([id number]) [address] [address] [place] [address] Platelet mean volume (Bld) [Entitic vol] 8.0 fL Normal 7-12 [facility] Comment on above: Performed By: #### A CA, 5124-3, 88194-2, 92520-0, 11482-6 #### [facility] ([id number]) [address] [address] [place] [address] Platelets (Bld) [#/Vol] 354 10*3/uL Normal 150-450 [facility] Comment on above: Performed By: #### A CA, 5124-3, 05273-5, 16150-4, 75195-0 #### [facility] ([id number]) [address], [facility] [address] [place] [address] RBC COUNT 4.24 X10E12/L Normal 3.80-5.20 [facility] Comment on above: Performed By: #### A CA, 5124-3, 11710-4, 13432-8, 77737-2 #### [facility] ([id number]) [address], [address] [place] [address] WBC (Bld) [#/Vol] 15.6 10*3/uL High 4.0-11.0 [facility] Comment on above: Performed By: #### A CA, 5124-3, 82359-0, 05653-4, 66708-3 #### [facility] ([id number]) [address], [address] [place] [address] ABSOLUTE BASOPHIL 0.1 X10E9/L Normal 0.0-0.2 [facility] Comment on above: Performed By: #### A CA, 5124-3, 43842-1, 68083-7, 94618-4 #### [facility] ([id number]) [address], [address] [place] [address] ABSOLUTE NEUTROPHIL 11.9 X10E9/L High 1.5-6.6 [facility] Comment on above: Performed By: #### A CA, 5124-3, 20250-0, 76208-7, 60191-1 #### [facility] ([id number]) [address], [address] [place] [address] Basophils/100 WBC (Bld) 0.4 % Normal [facility] Comment on above: Performed By: #### A CA, 5124-3, 68493-2, 07714-1, 24675-7 #### [facility] ([id number]) [address], [address] [place] [address] Eosinophils (Bld) [#/Vol] 0.1 10*3/uL Normal 0.0-0.4 [facility] Comment on above: Performed By: #### A CA, 5124-3, 39640-8, 44931-0, 78412-3 #### [facility] ([id number]) [address] [address] [place] [address] Eosinophils/100 WBC (Bld) 0.5 % Normal [facility] Comment on above: Performed By: #### A CA, 5124-3, 40843-2, 17218-2, 25634-0 #### [facility] ([id number]) [address] [address] Erythrocyte distribution width (RBC) [Ratio] 13.2 % Normal 11.5-15.0 [facility] Comment on above: Performed By: #### A CA, 5124-3, 84592-2, 40070-8, 32057-2 #### [facility] ([id number]) [address] [address] Hematocrit (Bld) [Volume fraction] 38.3 % Normal 35-47 [facility] Comment on above: Performed By: #### A CA, 5124-3, 58739-8, 19550-6, 39715-3 #### [facility] ([id number]) [address] [address] Hemoglobin (Bld) [Mass/Vol] 12.9 g/dL Normal 11.7-15.5 [facility] Comment on above: Performed By: #### A CA, 5124-3, 15536-3, 27943-8, 20182-8 #### [facility] ([id number]) [address] [address] Lymphocytes (Bld) [#/Vol] 3.8 10*3/uL High 1.0-3.5 [facility] Comment on above: Performed By: #### A CA, 5124-3, 94009-4, 17897-1, 88268-7 #### [facility] ([id number]) [address] [address] [place] [address] Lymphocytes/100 WBC (Bld) 22.2 % Normal [facility] Comment on above: Performed By: #### A CA, 5124-3, 28408-1, 76559-7, 01411-8 #### [facility] ([id number]) [address] [address] MCH (RBC) [Entitic mass] 30.4 pg Normal 27-34 [facility] Comment on above: Performed By: #### A CA, 5124-3, 38705-6, 35881-4, 75230-6 #### [facility] ([id number]) [address] [address] MCHC (RBC) [Mass/Vol] 33.8 g/dL Normal 32-36 [facility] Comment on above: Performed By: #### A CA, 5124-3, 10508-5, 89422-9, 26172-4 #### [facility] ([id number]) [address] [address] MCV (RBC) [Entitic vol] 90 fL Normal 80-100 [facility] Comment on above: Performed By: #### A CA, 5124-3, 67631-9, 79512-3, 21054-1 #### [facility] ([id number]) [address] [address] [place] [address] Monocytes (Bld) [#/Vol] 1.1 10*3/uL High 0-0.9 [facility] Comment on above: Performed By: #### A CA, 5124-3, 47186-8, 39165-7, 91796-9 #### [facility] ([id number]) [address] [address] [place] [address] Monocytes/100 WBC (Bld) 6.5 % Normal [facility] Comment on above: Performed By: #### A CA, 5124-3, 62678-3, 58049-4, 60940-9 #### [facility] ([id number]) [address], [address] [place] [address] Neutrophils/100 WBC (Bld) 70.4 % Normal [facility] Comment on above: Performed By: #### A CA, 5124-3, 37995-8, 78475-1, 33949-7 #### [facility] ([id number]) [address], [facility] [address] [place] [address] Platelet mean volume (Bld) [Entitic vol] 8.2 fL Normal 7-12 [facility] Comment on above: Performed By: #### A PARUL, 5124-3, 81939-5, 01069-7, 22208-2 #### [facility] ([id number]) [address], [address] [place] [address] Platelets (Bld) [#/Vol] 336 10*3/uL Normal 150-450 [facility] Comment on above: Performed By: #### A PARUL, 5124-3, 44043-3, 86666-2, 16868-2 #### [facility] ([id number]) [address], [address] [place] [address] RBC COUNT 4.26 X10E12/L Normal 3.80-5.20 [facility] Comment on above: Performed By: #### A CA, 5124-3, 28673-6, 54462-5, 71074-5 #### [facility] ([id number]) [address], [facility] [address] [place] [address] WBC (Bld) [#/Vol] 17.0 10*3/uL High 4.0-11.0 [facility] Comment on above: Performed By: #### A CA, 5124-3, 80334-7, 13502-3, 98200-3 #### [facility] ([id number]) [address], [address] [place] [address] ABSOLUTE BASOPHIL 0.0 X10E9/L Normal 0.0-0.2 [facility] Comment on above: Performed By: #### A CA, 5124-3, 53195-5, 88227-0, 40330-9 #### [facility] ([id number]) [address], [address] [place] [address] ABSOLUTE NEUTROPHIL 11.5 X10E9/L High 1.5-6.6 [facility] Comment on above: Performed By: #### A CA, 5124-3, 12544-1, 57920-9, 27381-6 #### [facility] ([id number]) [address], [address] [place] [address] Basophils/100 WBC (Bld) 0.3 % Normal [facility] Comment on above: Performed By: #### A CA, 5124-3, 57010-5, 25589-5, 00731-4 #### [facility] ([id number]) [address] [address] Eosinophils (Bld) [#/Vol] 0.0 10*3/uL Normal 0.0-0.4 [facility] Comment on above: Performed By: #### A CA, 5124-3, 91552-2, 64735-5, 80209-2 #### [facility] ([id number]) [address], [address] [place] [address] Eosinophils/100 WBC (Bld) 0.3 % Normal [facility] Comment on above: Performed By: #### A CA, 5124-3, 62270-6, 92900-3, 72763-7 #### [facility] ([id number]) [address], [address] [place] [address] Erythrocyte distribution width (RBC) [Ratio] 13.2 % Normal 11.5-15.0 [facility] Comment on above: Performed By: #### A CA, 5124-3, 59050-8, 17989-7, 07471-9 #### [facility] ([id number]) [address] [address] [place] [address] Hematocrit (Bld) [Volume fraction] 38.6 % Normal 35-47 [facility] Comment on above: Performed By: #### A PARUL, 5124-3, 36757-1, 64530-8, 89107-7 #### [facility] ([id number]) [address] [address] Hemoglobin (Bld) [Mass/Vol] 13.2 g/dL Normal 11.7-15.5 [facility] Comment on above: Performed By: #### A PARUL, 5124-3, 13619-5, 14048-8, 96968-6 #### [facility] ([id number]) [address] [address] Lymphocytes (Bld) [#/Vol] 4.2 10*3/uL High 1.0-3.5 [facility] Comment on above: Performed By: #### A PARUL, 5124-3, 54797-5, 21163-4, 21047-3 #### [facility] ([id number]) [address] [address] Lymphocytes/100 WBC (Bld) 24.8 % Normal [facility] Comment on above: Performed By: #### A CA, 5124-3, 87051-6, 59757-6, 95710-4 #### [facility] ([id number]) [address] [address] [place] [address] MCH (RBC) [Entitic mass] 30.3 pg Normal 27-34 [facility] Comment on above: Performed By: #### A CA, 5124-3, 63078-0, 67710-5, 74340-3 #### [facility] ([id number]) [address], [facility] [address] [place] [address] MCHC (RBC) [Mass/Vol] 34.2 g/dL Normal 32-36 [facility] Comment on above: Performed By: #### A CA, 5124-3, 63754-5, 20232-7, 15668-3 #### [facility] ([id number]) [address], [facility] [address] [place] [address] MCV (RBC) [Entitic vol] 89 fL Normal 80-100 [facility] Comment on above: Performed By: #### A CA, 5124-3, 15352-4, 00431-2, 55127-5 #### [facility] ([id number]) [address], [address] [address] Monocytes (Bld) [#/Vol] 1.2 10*3/uL High 0-0.9 [facility] Comment on above: Performed By: #### A CA, 5124-3, 44425-8, 51374-3, 80508-0 #### [facility] ([id number]) [address], [address] [address] Monocytes/100 WBC (Bld) 7.2 % Normal [facility] Comment on above: Performed By: #### A CA, 5124-3, 24345-8, 06551-5, 01196-3 #### [facility] ([id number]) [address] [address] Neutrophils/100 WBC (Bld) 67.4 % Normal [facility] Comment on above: Performed By: #### A CA, 5124-3, 05125-5, 70183-3, 76529-6 #### [facility] ([id number]) [address], [address] [place] [address] Platelet mean volume (Bld) [Entitic vol] 8.3 fL Normal 7-12 [facility] Comment on above: Performed By: #### A CA, 5124-3, 24115-9, 80420-0, 18151-7 #### [facility] ([id number]) [address], [facility] [address] [place] [address] Platelets (Bld) [#/Vol] 345 10*3/uL Normal 150-450 [facility] Comment on above: Performed By: #### A CA, 5124-3, 39382-7, 48785-4, 59564-7 #### [facility] ([id number]) [address], [facility] [address] [place] [address] RBC COUNT 4.35 X10E12/L Normal 3.80-5.20 [facility] Comment on above: Performed By: #### A CA, 5124-3, 51582-2, 62048-9, 15571-8 #### [facility] ([id number]) [address] [address] WBC (Bld) [#/Vol] 17.1 10*3/uL High 4.0-11.0 [facility] Comment on above: Performed By: #### A CA, 5124-3, 33879-2, 73216-5, 05702-5 #### [facility] ([id number]) [address], [address] [place] [address] COMPREHENSIVE METABOLIC PANE Yasmani 10-01-2023 Albumin [Mass/Vol] 3.3 g/dL Normal 3.2-5.3 [facility] Comment on above: Performed By: #### A CA, 5124-3, 94899-0, 97878-3, 80386-7 #### [facility] ([id number]) [address], [address] [place] [address] ALP [Catalytic activity/Vol] 69 U/L Normal 39-130 [facility] Comment on above: Performed By: #### A CA, 5124-3, 18382-4, 91928-4, 07063-8 #### [facility] ([id number]) [address], [address] [place] [address] ALT [Catalytic activity/Vol] 10 U/L Normal 0-31 [facility] Comment on above: Performed By: #### A CA, 5124-3, 67246-3, 62392-0, 93528-5 #### [facility] ([id number]) [address], [address] [place] [address] Anion gap [Moles/Vol] 10 mmol/L Normal 5-15 [facility] Comment on above: Performed By: #### A CA, 5124-3, 98974-6, 14630-4, 33836-5 #### [facility] ([id number]) [address], [facility] [address] [place] [address] AST [Catalytic activity/Vol] 21 U/L Normal 0-41 [facility] Comment on above: Performed By: #### A CA, 5124-3, 08536-6, 97294-5, 23449-5 #### [facility] ([id number]) [address], [facility] [address] [place] [address] Bilirubin [Mass/Vol] 0.3 mg/dL Normal 0.3-1.2 [facility] Comment on above: Performed By: #### A CA, 5124-3, 68987-1, 94027-4, 57150-5 #### [facility] ([id number]) [address], [address] [place] [address] Calcium [Mass/Vol] 8.0 mg/dL Low 8.5-10.5 [facility] Comment on above: Performed By: #### A CA, 5124-3, 88589-1, 24175-6, 33952-5 #### [facility] ([id number]) [address], [facility] [address] [place] [address] Chloride [Moles/Vol] 102 mmol/L Normal 98-109 [facility] Comment on above: Performed By: #### A PARUL, 5124-3, 23571-7, 82584-3, 34457-6 #### [facility] ([id number]) [address], [facility] [address] [place] [address] CO2 [Moles/Vol] 21 mmol/L Low 22-32 [facility] Comment on above: Performed By: #### A PARUL, 5124-3, 84092-5, 05598-8, 86903-6 #### [facility] ([id number]) [address], [address] [address] Creatinine [Mass/Vol] 0.64 mg/dL Normal 0.40-1.00 [facility] Comment on above: Result Comment: METH OD TRACEABLE TO IDMS STANDARD Performed By: #### A PARUL, 5124-3, 46914-5, 30812-9, 83327-4 #### [facility] ([id number]) [address], [facility] [address] [place] [address] eGFR (CKD-EPI) NON-RACE DEPENDENT >90 Normal >59 [facility] Comment on above: Result Comment: Reported eGFR is based on the CKD-EPI 2021 equation that does not use a race coefficient. Performed By: #### A PARUL, 5124-3, 43350-8, 93672-0, 07564-5 #### [facility] ([id number]) [address], [facility] [address] [place] [address] Glucose [Mass/Vol] 95 mg/dL Normal 65-99 [facility] Comment on above: Performed By: #### A PARUL, 5124-3, 17312-7, 73218-1, 58419-4 #### [facility] ([id number]) [address], [address] [place] [address] Potassium [Moles/Vol] 4.1 mmol/L Normal 3.5-5.0 [facility] Comment on above: Performed By: #### A CA, 5124-3, 55092-6, 07459-0, 34483-5 #### [facility] ([id number]) [address], [address] [place] [address] Protein [Mass/Vol] 6.2 g/dL Normal 6.0-8.0 [facility] Comment on above: Performed By: #### A CA, 5124-3, 55949-4, 97610-1, 39247-6 #### [facility] ([id number]) [address], [address] [place] [address] Sodium [Moles/Vol] 133 mmol/L Low 134-146 [facility] Comment on above: Performed By: #### A CA, 5124-3, 65455-5, 13970-0, 44272-5 #### [facility] ([id number]) [address] [address] [place] [address] Urea nitrogen [Mass/Vol] 11 mg/dL Normal 5-23 [facility] Comment on above: Performed By: #### A CA, 5124-3, 53963-6, 38420-5, 51886-3 #### [facility] ([id number]) [address], [address] [place] [address] Albumin [Mass/Vol] 3.3 g/dL Normal 3.2-5.3 [facility] Comment on above: Performed By: #### A CA, 5124-3, 27198-0, 62374-8, 59804-9 #### [facility] ([id number]) [address], [address] [place] [address] ALP [Catalytic activity/Vol] 61 U/L Normal 39-130 [facility] Comment on above: Performed By: #### A CA, 5124-3, 63953-6, 69136-9, 82085-1 #### [facility] ([id number]) [address], [address] [place] [address] ALT [Catalytic activity/Vol] 12 U/L Normal 0-31 [facility] Comment on above: Performed By: #### A CA, 5124-3, 54716-0, 50589-0, 25051-2 #### [facility] ([id number]) [address], [facility] [address] [place] [address] Anion gap [Moles/Vol] 11 mmol/L Normal 5-15 [facility] Comment on above: Performed By: #### A CA, 5124-3, 98140-5, 08297-7, 59351-3 #### [facility] ([id number]) [address], [address] [place] [address] AST [Catalytic activity/Vol] 23 U/L Normal 0-41 [facility] Comment on above: Performed By: #### A CA, 5124-3, 86380-7, 69227-0, 94546-9 #### [facility] ([id number]) [address], [facility] [address] [place] [address] Bilirubin [Mass/Vol] 0.2 mg/dL Low 0.3-1.2 [facility] Comment on above: Performed By: #### A CA, 5124-3, 03095-0, 69470-2, 82924-3 #### [facility] ([id number]) [address], [facility] [address] [place] [address] Calcium [Mass/Vol] 8.4 mg/dL Low 8.5-10.5 [facility] Comment on above: Performed By: #### A CA, 5124-3, 22149-7, 59944-5, 02157-3 #### [facility] ([id number]) [address], [address] [place] [address] Chloride [Moles/Vol] 103 mmol/L Normal 98-109 [facility] Comment on above: Performed By: #### A CA, 5124-3, 70068-5, 78498-5, 30944-4 #### [facility] ([id number]) [address], [address] [place] [address] CO2 [Moles/Vol] 20 mmol/L Low 22-32 [facility] Comment on above: Performed By: #### A CA, 5124-3, 47990-3, 65918-8, 97096-8 #### [facility] ([id number]) [address], [address] [address] Creatinine [Mass/Vol] 0.57 mg/dL Normal 0.40-1.00 [facility] Comment on above: Result Comment: METH OD TRACEABLE TO IDMS STANDARD Performed By: #### A CA, 5124-3, 64538-1, 78465-7, 31381-6 #### [facility] ([id number]) [address], [address] [place] [address] eGFR (CKD-EPI) NON-RACE DEPENDENT >90 Normal >59 [facility] Comment on above: Result Comment: Reported eGFR is based on the CKD-EPI 2020 equation that does not use a race coefficient. Performed By: #### A CA, 5124-3, 75777-1, 16392-0, 16369-3 #### [facility] ([id number]) [address], [facility] [address] [place] [address] Glucose [Mass/Vol] 77 mg/dL Normal 65-99 [facility] Comment on above: Performed By: #### A CA, 5124-3, 68897-0, 95698-4, 74211-9 #### [facility] ([id number]) [address], [address] [place] [address] Potassium [Moles/Vol] 3.9 mmol/L Normal 3.5-5.0 [facility] Comment on above: Performed By: #### A CA, 5124-3, 63317-4, 80263-5, 10466-4 #### [facility] ([id number]) [address], [address] [place] [address] Protein [Mass/Vol] 6.2 g/dL Normal 6.0-8.0 [facility] Comment on above: Performed By: #### A CA, 5124-3, 18642-4, 13845-2, 22470-7 #### [facility] ([id number]) [address], [address] [place] [address] Sodium [Moles/Vol] 134 mmol/L Normal 134-146 [facility] Comment on above: Performed By: #### A CA, 5124-3, 52638-6, 64770-6, 80866-8 #### [facility] ([id number]) [address], [address] [place] [address] Urea nitrogen [Mass/Vol] 12 mg/dL Normal 5-23 [facility] Comment on above: Performed By: #### A CA, 5124-3, 20581-7, 67705-0, 28332-1 #### [facility] ([id number]) [address], [address] [place] [address] Albumin [Mass/Vol] 3.4 g/dL Normal 3.2-5.3 [facility] Comment on above: Performed By: #### A CA, 5124-3, 93948-4, 14032-3, 37559-9 #### [facility] ([id number]) [address], [address] [place] [address] ALP [Catalytic activity/Vol] 64 U/L Normal 39-130 [facility] Comment on above: Performed By: #### A CA, 5124-3, 57849-8, 13089-0, 85740-8 #### [facility] ([id number]) [address], [address] [place] [address] ALT [Catalytic activity/Vol] 13 U/L Normal 0-31 [facility] Comment on above: Performed By: #### A CA, 5124-3, 89410-4, 89024-2, 13788-8 #### [facility] ([id number]) [address], [facility] [address] [place] [address] Anion gap [Moles/Vol] 12 mmol/L Normal 5-15 [facility] Comment on above: Performed By: #### A CA, 5124-3, 41701-2, 55597-6, 71428-7 #### [facility] ([id number]) [address], [address] [place] [address] AST [Catalytic activity/Vol] 22 U/L Normal 0-41 [facility] Comment on above: Performed By: #### A CA, 5124-3, 94138-5, 50074-5, 96119-6 #### [facility] ([id number]) [address], [facility] [address] [place] [address] Bilirubin [Mass/Vol] 0.2 mg/dL Low 0.3-1.2 [facility] Comment on above: Performed By: #### A CA, 5124-3, 65022-5, 26175-4, 22587-9 #### [facility] ([id number]) [address], [address] [place] [address] Calcium [Mass/Vol] 8.9 mg/dL Normal 8.5-10.5 [facility] Comment on above: Performed By: #### A CA, 5124-3, 33249-4, 93057-3, 33177-3 #### [facility] ([id number]) [address], [address] [place] [address] Chloride [Moles/Vol] 105 mmol/L Normal 98-109 [facility] Comment on above: Performed By: #### A CA, 5124-3, 00443-3, 21521-4, 28769-5 #### [facility] ([id number]) [address], [facility] [address] [place] [address] CO2 [Moles/Vol] 20 mmol/L Low 22-32 [facility] Comment on above: Performed By: #### A CA, 5124-3, 51331-3, 40009-1, 66503-7 #### [facility] ([id number]) [address], [address] [address] Creatinine [Mass/Vol] 0.57 mg/dL Normal 0.40-1.00 [facility] Comment on above: Result Comment: METH OD TRACEABLE TO IDMS STANDARD Performed By: #### A PARUL, 5124-3, 42406-0, 31197-7, 93590-4 #### [facility] ([id number]) [address] [address] eGFR (CKD-EPI) NON-RACE DEPENDENT >90 Normal >59 [facility] Comment on above: Result Comment: Reported eGFR is based on the CKD-EPI 2020 equation that does not use a race coefficient. Performed By: #### A CA, 5124-3, 38371-5, 67128-2, 46956-0 #### [facility] ([id number]) [address] [address] [place] [address] Glucose [Mass/Vol] 77 mg/dL Normal 65-99 [facility] Comment on above: Performed By: #### A CA, 5124-3, 91983-6, 84120-0, 61340-1 #### [facility] ([id number]) [address], [address] [place] [address] Potassium [Moles/Vol] 3.9 mmol/L Normal 3.5-5.0 [facility] Comment on above: Performed By: #### A CA, 5124-3, 79891-5, 81200-5, 33118-9 #### [facility] ([id number]) [address], [facility] [address] [place] [address] Protein [Mass/Vol] 6.3 g/dL Normal 6.0-8.0 [facility] Comment on above: Performed By: #### A CA, 5124-3, 55913-7, 47314-0, 21847-5 #### [facility] ([id number]) [address], [address] [place] [address] Sodium [Moles/Vol] 137 mmol/L Normal 134-146 [facility] Comment on above: Performed By: #### A CA, 5124-3, 12813-2, 47628-7, 07804-3 #### [facility] ([id number]) [address], [facility] [address] [place] [address] Urea nitrogen [Mass/Vol] 15 mg/dL Normal 5-23 [facility] Comment on above: Performed By: #### A CA, 5124-3, 65773-3, 13911-3, 76800-4 #### [facility] ([id number]) [address], [address] [place] [address] LDH [Catalytic activity/Vol] on 10-01-2023 LDH 164 U/L Normal 100-235 [facility] Comment on above: Performed By: #### A CA, 5124-3, 90678-9, 53172-9, 92214-8 #### [facility] [facility] ([id number]) [address], [address] [place] [address] URIC ACIDon 10-01-2023 Urate [Mass/Vol] 6.3 mg/dL Normal 2.6-7.[address] [facility] Comment on above: Performed By: #### A PARUL, 5124-3, 98798-9, 00126-0, 16102-4 #### [facility] ([id number]) [address], [address] [place] [address] CBC AND AUTO DIFFon 09-30-19 ABSOLUTE BASOPHIL 0.0 X10E9/L Normal 0.0-0.2 [facility] Comment on above: Performed By: #### A PARUL, 5124-3, 84948-0, 44647-3, 29374-1 #### [facility] ([id number]) [address], [address] [place] [address] ABSOLUTE NEUTROPHIL 7.9 X10E9/L High 1.5-6.6 [facility] Comment on above: Performed By: #### A PARUL, 5124-3, 15245-0, 00558-0, 23036-1 #### [facility] ([id number]) [address], [address] [place] [address] Basophils/100 WBC (Bld) 0.2 % Normal [facility] Comment on above: Performed By: #### A PARUL, 5124-3, 03098-9, 44523-9, 03732-1 #### [facility] ([id number]) [address], [address] [place] [address] Eosinophils (Bld) [#/Vol] 0.0 10*3/uL Normal 0.0-0.4 [facility] Comment on above: Performed By: #### A PARUL, 5124-3, 52976-0, 28623-2, 92539-1 #### [facility] ([id number]) [address], [address] [place] [address] Eosinophils/100 WBC (Bld) 0.2 % Normal [facility] Comment on above: Performed By: #### A CA, 5124-3, 54630-8, 78565-9, 52746-7 #### [facility] ([id number]) [address] [address] [place] [address] Erythrocyte distribution width (RBC) [Ratio] 13.1 % Normal 11.5-15.0 [facility] Comment on above: Performed By: #### A CA, 5124-3, 62808-8, 37557-2, 16511-5 #### [facility] ([id number]) [address] [address] [place] [address] Hematocrit (Bld) [Volume fraction] 37.6 % Normal 35-47 [facility] Comment on above: Performed By: #### A PARUL, 5124-3, 89473-9, 12457-5, 43749-2 #### [facility] ([id number]) [address] [address] [place] [address] Hemoglobin (Bld) [Mass/Vol] 12.6 g/dL Normal 11.7-15.5 [facility] Comment on above: Performed By: #### A PARUL, 5124-3, 22057-1, 17655-1, 14952-9 #### [facility] ([id number]) [address] [address] [place] [address] Lymphocytes (Bld) [#/Vol] 3.4 10*3/uL Normal 1.0-3.5 [facility] Comment on above: Performed By: #### A CA, 5124-3, 21349-7, 73437-1, 08600-8 #### [facility] ([id number]) [address] [address] [place] [address] Lymphocytes/100 WBC (Bld) 27.5 % Normal [facility] Comment on above: Performed By: #### A CA, 5124-3, 29877-2, 82291-9, 34592-1 #### [facility] ([id number]) [address], [address] [place] [address] MCH (RBC) [Entitic mass] 30.2 pg Normal 27-34 [facility] Comment on above: Performed By: #### A CA, 5124-3, 35886-3, 33612-2, 98752-8 #### [facility] ([id number]) [address], [address] [place] [address] MCHC (RBC) [Mass/Vol] 33.4 g/dL Normal 32-36 [facility] Comment on above: Performed By: #### A PARUL, 5124-3, 82984-9, 66039-9, 73435-3 #### [facility] ([id number]) [address], [facility] [address] [place] [address] MCV (RBC) [Entitic vol] 90 fL Normal 80-100 [facility] Comment on above: Performed By: #### A CA, 5124-3, 37514-2, 13014-6, 41454-1 #### [facility] ([id number]) [address], [facility] [address] [place] [address] Monocytes (Bld) [#/Vol] 1.1 10*3/uL High 0-0.9 [facility] Comment on above: Performed By: #### A CA, 5124-3, 00824-0, 93869-2, 74746-4 #### [facility] ([id number]) [address], [address] [place] [address] Monocytes/100 WBC (Bld) 8.4 % Normal [facility] Comment on above: Performed By: #### A CA, 5124-3, 09396-3, 05523-1, 85171-3 #### [facility] ([id number]) [address], [address] [place] [address] Neutrophils/100 WBC (Bld) 63.7 % Normal [facility] Comment on above: Performed By: #### A CA, 5124-3, 50982-8, 64974-4, 12440-6 #### [facility] ([id number]) [address], [address] [place] [address] Platelet mean volume (Bld) [Entitic vol] 8.3 fL Normal 7-12 [facility] Comment on above: Performed By: #### A CA, 5124-3, 21937-6, 59818-9, 33554-9 #### [facility] ([id number]) [address], [address] [place] [address] Platelets (Bld) [#/Vol] 319 10*3/uL Normal 150-450 [facility] Comment on above: Performed By: #### A CA, 5124-3, 27131-6, 41764-4, 52616-9 #### [facility] ([id number]) [address], [address] [place] [address] RBC COUNT 4.16 X10E12/L Normal 3.80-5.20 [facility] Comment on above: Performed By: #### A CA, 5124-3, 38053-5, 63918-4, 58097-9 #### [facility] ([id number]) [address], [address] [place] [address] WBC (Bld) [#/Vol] 12.5 10*3/uL High 4.0-11.0 [facility] Comment on above: Performed By: #### A CA, 5124-3, 02429-9, 38152-1, 17837-1 #### [facility] ([id number]) [address], [address] [place] [address] COMPREHENSIVE METABOLIC PANE Yasmani 09-30-2023 Albumin [Mass/Vol] 3.2 g/dL Normal 3.2-5.3 [facility] Comment on above: Performed By: #### A CA, 5124-3, 38758-4, 34980-2, 63395-4 #### [facility] ([id number]) [address], [address] [place] [address] ALP [Catalytic activity/Vol] 57 U/L Normal 39-130 [facility] Comment on above: Performed By: #### A CA, 5124-3, 77064-7, 99608-4, 66779-1 #### [facility] ([id number]) [address], [address] [place] [address] ALT [Catalytic activity/Vol] 12 U/L Normal 0-31 [facility] Comment on above: Performed By: #### A CA, 5124-3, 62249-3, 90749-8, 84100-9 #### [facility] ([id number]) [address], [address] [place] [address] Anion gap [Moles/Vol] 13 mmol/L Normal 5-15 [facility] Comment on above: Performed By: #### A CA, 5124-3, 87664-2, 03609-9, 86239-3 #### [facility] ([id number]) [address], [address] [place] [address] AST [Catalytic activity/Vol] 19 U/L Normal 0-41 [facility] Comment on above: Performed By: #### A CA, 5124-3, 19593-8, 14496-7, 49542-9 #### [facility] ([id number]) [address], [address] [place] [address] Bilirubin [Mass/Vol] 0.2 mg/dL Low 0.3-1.2 [facility] Comment on above: Performed By: #### A CA, 5124-3, 20765-4, 23286-6, 73543-1 #### [facility] ([id number]) [address], [facility] [address] [place] [address] Calcium [Mass/Vol] 8.9 mg/dL Normal 8.5-10.5 [facility] Comment on above: Performed By: #### A CA, 5124-3, 19458-4, 19986-7, 72280-9 #### [facility] ([id number]) [address], [facility] [address] [place] [address] Chloride [Moles/Vol] 105 mmol/L Normal 98-109 [facility] Comment on above: Performed By: #### A CA, 5124-3, 53058-7, 62097-2, 55435-0 #### [facility] ([id number]) [address] [address] CO2 [Moles/Vol] 21 mmol/L Low 22-32 [facility] Comment on above: Performed By: #### A CA, 5124-3, 30564-5, 19943-5, 15971-0 #### [facility] ([id number]) [address] [address] Creatinine [Mass/Vol] 0.64 mg/dL Normal 0.40-1.00 [facility] Comment on above: Result Comment: METH OD TRACEABLE TO IDMS STANDARD Performed By: #### A CA, 5124-3, 02063-9, 85567-6, 00661-5 #### [facility] ([id number]) [address] [address] eGFR (CKD-EPI) NON-RACE DEPENDENT >90 Normal >59 [facility] Comment on above: Result Comment: Reported eGFR is based on the CKD-EPI 2020 equation that does not use a race coefficient. Performed By: #### A CA, 5124-3, 76605-1, 68353-0, 31326-8 #### [facility] ([id number]) [address] [address] Glucose [Mass/Vol] 74 mg/dL Normal 65-99 [facility] Comment on above: Performed By: #### A CA, 5124-3, 17572-2, 64087-6, 36737-4 #### [facility] ([id number]) [address], [address] [place] [address] Potassium [Moles/Vol] 3.9 mmol/L Normal 3.5-5.0 [facility] Comment on above: Performed By: #### A CA, 5124-3, 04575-6, 44064-1, 47262-6 #### [facility] ([id number]) [address], [address] [place] [address] Protein [Mass/Vol] 6.0 g/dL Normal 6.0-8.0 [facility] Comment on above: Performed By: #### A CA, 5124-3, 04815-6, 90012-5, 95960-8 #### [facility] ([id number]) [address], [address] [place] [address] Sodium [Moles/Vol] 139 mmol/L Normal 134-146 [facility] Comment on above: Performed By: #### A CA, 5124-3, 34427-6, 81726-9, 27586-1 #### [facility] ([id number]) [address], [address] [place] [address] Urea nitrogen [Mass/Vol] 19 mg/dL Normal 5-23 [facility] Comment on above: Performed By: #### A CA, 5124-3, 64237-4, 36167-8, 52654-6 #### [facility] ([id number]) [address], [address] [place] [address] CBC AND AUTO DIFFon 09-29-19 24 ABSOLUTE BASOPHIL 0.0 X10E9/L Normal 0.0-0.2 [facility] Comment on above: Performed By: #### A CA, 5124-3, 05209-4, 57913-0, 09900-2 #### [facility] ([id number]) [address] [address] [place] [address] ABSOLUTE NEUTROPHIL 12.0 X10E9/L High 1.5-6.6 [facility] Comment on above: Performed By: #### A CA, 5124-3, 37899-8, 38608-9, 39358-7 #### [facility] ([id number]) [address], [address] [address] Basophils/100 WBC (Bld) 0.2 % Normal [facility] Comment on above: Performed By: #### A CA, 5124-3, 60824-9, 99196-9, 01566-2 #### [facility] ([id number]) [address] [address] Eosinophils (Bld) [#/Vol] 0.0 10*3/uL Normal 0.0-0.4 [facility] Comment on above: Performed By: #### A PARUL, 5124-3, 94749-9, 93550-9, 48666-1 #### [facility] ([id number]) [address] [address] Eosinophils/100 WBC (Bld) 0.0 % Normal [facility] Comment on above: Performed By: #### A CA, 5124-3, 77880-2, 39506-1, 55098-1 #### [facility] ([id number]) [address] [address] Erythrocyte distribution width (RBC) [Ratio] 13.4 % Normal 11.5-15.0 [facility] Comment on above: Performed By: #### A PARUL, 5124-3, 08037-1, 91367-6, 04620-0 #### [facility] ([id number]) [address] [address] [place] [address] Hematocrit (Bld) [Volume fraction] 36.3 % Normal 35-47 [facility] Comment on above: Performed By: #### A CA, 5124-3, 31749-1, 23769-8, 56404-8 #### [facility] ([id number]) [address] [address] [place] [address] Hemoglobin (Bld) [Mass/Vol] 12.5 g/dL Normal 11.7-15.5 [facility] Comment on above: Performed By: #### A PARUL, 5124-3, 02735-4, 62027-8, 00265-6 #### [facility] ([id number]) [address] [address] Lymphocytes (Bld) [#/Vol] 1.9 10*3/uL Normal 1.0-3.5 [facility] Comment on above: Performed By: #### A PARUL, 5124-3, 87073-8, 53294-6, 35205-5 #### [facility] ([id number]) [address] [address] Lymphocytes/100 WBC (Bld) 12.8 % Normal [facility] Comment on above: Performed By: #### A CA, 5124-3, 24965-7, 45631-9, 31447-6 #### [facility] ([id number]) [address] [address] [place] [address] MCH (RBC) [Entitic mass] 31.0 pg Normal 27-34 [facility] Comment on above: Performed By: #### A CA, 5124-3, 36990-4, 87355-2, 40559-6 #### [facility] ([id number]) [address], [address] [place] [address] MCHC (RBC) [Mass/Vol] 34.3 g/dL Normal 32-36 [facility] Comment on above: Performed By: #### A CA, 5124-3, 54745-3, 20176-5, 53165-3 #### [facility] ([id number]) [address], [facility] [address] [place] [address] MCV (RBC) [Entitic vol] 90 fL Normal 80-100 [facility] Comment on above: Performed By: #### A CA, 5124-3, 42730-6, 80975-0, 60314-0 #### [facility] ([id number]) [address], [address] [address] Monocytes (Bld) [#/Vol] 0.9 10*3/uL Normal 0-0.9 [facility] Comment on above: Performed By: #### A CA, 5124-3, 84132-8, 59404-3, 96960-1 #### [facility] ([id number]) [address], [address] [address] Monocytes/100 WBC (Bld) 6.2 % Normal [facility] Comment on above: Performed By: #### A CA, 5124-3, 35421-8, 66863-7, 77051-9 #### [facility] ([id number]) [address], [address] [address] Neutrophils/100 WBC (Bld) 80.8 % Normal [facility] Comment on above: Performed By: #### A CA, 5124-3, 36311-8, 79337-2, 99661-4 #### [facility] ([id number]) [address], [facility] [address] [place] [address] Platelet mean volume (Bld) [Entitic vol] 8.4 fL Normal 7-12 [facility] Comment on above: Performed By: #### A CA, 5124-3, 57482-1, 39300-5, 34767-7 #### [facility] ([id number]) [address], [address] [place] [address] Platelets (Bld) [#/Vol] 337 10*3/uL Normal 150-450 [facility] Comment on above: Performed By: #### A CA, 5124-3, 12079-9, 48600-9, 55838-7 #### [facility] ([id number]) [address], [address] [place] [address] RBC COUNT 4.02 X10E12/L Normal 3.80-5.20 [facility] Comment on above: Performed By: #### A CA, 5124-3, 02738-1, 58749-9, 92946-6 #### [facility] ([id number]) [address], [address] [place] [address] WBC (Bld) [#/Vol] 14.9 10*3/uL High 4.0-11.0 [facility] Comment on above: Performed By: #### A CA, 5124-3, 86489-7, 61098-3, 14823-0 #### [facility] ([id number]) [address], [address] [place] [address] COMPREHENSIVE METABOLIC PANE Yasmani 09-29-2023 Albumin [Mass/Vol] 3.4 g/dL Normal 3.2-5.3 [facility] Comment on above: Performed By: #### A CA, 5124-3, 42044-8, 02122-6, 72105-8 #### [facility] ([id number]) [address], [address] [place] [address] ALP [Catalytic activity/Vol] 67 U/L Normal 39-130 [facility] Comment on above: Performed By: #### A CA, 5124-3, 36226-7, 28117-0, 35768-6 #### [facility] ([id number]) [address], [address] [place] [address] ALT [Catalytic activity/Vol] 15 U/L Normal 0-31 [facility] Comment on above: Performed By: #### A CA, 5124-3, 48054-4, 60231-6, 47608-6 #### [facility] ([id number]) [address], [address] [place] [address] Anion gap [Moles/Vol] 9 mmol/L Normal 5-15 [facility] Comment on above: Performed By: #### A CA, 5124-3, 84241-0, 13789-2, 57804-2 #### [facility] ([id number]) [address], [address] [place] [address] AST [Catalytic activity/Vol] 20 U/L Normal 0-41 [facility] Comment on above: Performed By: #### A CA, 5124-3, 78751-7, 89224-9, 03994-0 #### [facility] ([id number]) [address], [address] [place] [address] Bilirubin [Mass/Vol] 0.2 mg/dL Low 0.3-1.2 [facility] Comment on above: Performed By: #### A CA, 5124-3, 63360-8, 14184-7, 02302-0 #### [facility] ([id number]) [address], [address] [place] [address] Calcium [Mass/Vol] 8.9 mg/dL Normal 8.5-10.5 [facility] Comment on above: Performed By: #### A CA, 5124-3, 93192-9, 85017-8, 59240-6 #### [facility] ([id number]) [address], [address] [place] [address] Chloride [Moles/Vol] 106 mmol/L Normal 98-109 [facility] Comment on above: Performed By: #### A CA, 5124-3, 19647-7, 31438-5, 40753-7 #### [facility] ([id number]) [address], [address] [place] [address] CO2 [Moles/Vol] 21 mmol/L Low 22-32 [facility] Comment on above: Performed By: #### A PARUL, 5124-3, 72105-9, 35171-0, 77520-4 #### [facility] ([id number]) [address], [facility] [address] [place] [address] Creatinine [Mass/Vol] 0.63 mg/dL Normal 0.40-1.00 [facility] Comment on above: Result Comment: METH OD TRACEABLE TO IDMS STANDARD Performed By: #### A PARUL, 5124-3, 70922-0, 54916-3, 44398-4 #### [facility] ([id number]) [address], [address] [address] eGFR (CKD-EPI) NON-RACE DEPENDENT >90 Normal >59 [facility] Comment on above: Result Comment: Reported eGFR is based on the CKD-EPI 2020 equation that does not use a race coefficient. Performed By: #### A PARUL, 5124-3, 62204-5, 31802-8, 46867-2 #### [facility] ([id number]) [address], [facility] [address] [place] [address] Glucose [Mass/Vol] 101 mg/dL High 65-99 [facility] Comment on above: Performed By: #### A PARUL, 5124-3, 11314-9, 32639-8, 23970-0 #### [facility] ([id number]) [address] [address] [place] [address] Potassium [Moles/Vol] 4.2 mmol/L Normal 3.5-5.0 [facility] Comment on above: Performed By: #### A PARUL, 5124-3, 02997-1, 40871-2, 59429-8 #### [facility] ([id number]) [address], [address] [place] [address] Protein [Mass/Vol] 6.3 g/dL Normal 6.0-8.0 [facility] Comment on above: Performed By: #### A CA, 5124-3, 40749-3, 38734-9, 19707-6 #### [facility] ([id number]) [address], [address] [place] [address] Sodium [Moles/Vol] 136 mmol/L Normal 134-146 [facility] Comment on above: Performed By: #### A CA, 5124-3, 05281-9, 15567-4, 10479-8 #### [facility] ([id number]) [address], [facility] [address] [place] [address] Urea nitrogen [Mass/Vol] 17 mg/dL Normal 5-23 [facility] Comment on above: Performed By: #### A CA, 5124-3, 94452-3, 01287-5, 78759-9 #### [facility] ([id number]) [address], [address] [address] Glucose Glucometer (BldC) [M ass/Vol]on 09-29-2023 Glucose [Mass/Vol] 89 mg/dL Normal 65-99 [facility] 24 HR URINE TOTAL PROTEINon 09-28-2023 URINE TOTAL PROTEIN 949 mg/24h High 0-150 [facility] Comment on above: Performed By: #### A CA, 5124-3, 39350-6, 21447-6, 36828-8 #### [facility] ([id number]) [address], [address] [place] [address] CBC AND AUTO DIFFon 09-28-19 24 ABSOLUTE BASOPHIL 0.0 X10E9/L Normal 0.0-0.2 [facility] Comment on above: Performed By: #### A CA, 5124-3, 27983-6, 21546-6, 25168-7 #### [facility] ([id number]) [address], [address] [address] ABSOLUTE NEUTROPHIL 11.5 X10E9/L High 1.5-6.6 [facility] Comment on above: Performed By: #### A CA, 5124-3, 45348-7, 06640-1, 48250-2 #### [facility] ([id number]) [address], [address] [address] Basophils/100 WBC (Bld) 0.1 % Normal [facility] Comment on above: Performed By: #### A CA, 5124-3, 39718-8, 34730-2, 42208-7 #### [facility] ([id number]) [address], [address] [address] Eosinophils (Bld) [#/Vol] 0.0 10*3/uL Normal 0.0-0.4 [facility] Comment on above: Performed By: #### A CA, 5124-3, 78759-6, 53622-1, 57933-9 #### [facility] ([id number]) [address] [address] Eosinophils/100 WBC (Bld) 0.0 % Normal [facility] Comment on above: Performed By: #### A CA, 5124-3, 13264-1, 79486-1, 32156-5 #### [facility] ([id number]) [address] [address] Erythrocyte distribution width (RBC) [Ratio] 13.5 % Normal 11.5-15.0 [facility] Comment on above: Performed By: #### A CA, 5124-3, 51343-0, 80567-9, 48213-1 #### [facility] ([id number]) [address] [address] [place] [address] Hematocrit (Bld) [Volume fraction] 36.1 % Normal 35-47 [facility] Comment on above: Performed By: #### A CA, 5124-3, 54448-4, 39735-4, 31700-3 #### [facility] ([id number]) [address] [address] [place] [address] Hemoglobin (Bld) [Mass/Vol] 12.2 g/dL Normal 11.7-15.5 [facility] Comment on above: Performed By: #### A PARUL, 5124-3, 69037-3, 02154-4, 57488-4 #### [facility] ([id number]) [address] [address] Lymphocytes (Bld) [#/Vol] 1.3 10*3/uL Normal 1.0-3.5 [facility] Comment on above: Performed By: #### A PARUL, 5124-3, 01799-3, 75872-2, 25767-3 #### [facility] ([id number]) [address] [address] Lymphocytes/100 WBC (Bld) 9.4 % Normal [facility] Comment on above: Performed By: #### A PARUL, 5124-3, 48250-7, 76260-1, 23536-3 #### [facility] ([id number]) [address] [address] [place] [address] MCH (RBC) [Entitic mass] 30.4 pg Normal 27-34 [facility] Comment on above: Performed By: #### A CA, 5124-3, 87684-2, 65450-1, 78507-3 #### [facility] ([id number]) [address] [address] [place] [address] MCHC (RBC) [Mass/Vol] 33.7 g/dL Normal 32-36 [facility] Comment on above: Performed By: #### A CA, 5124-3, 22951-4, 48495-9, 99080-8 #### [facility] ([id number]) [address] [address] MCV (RBC) [Entitic vol] 90 fL Normal 80-100 [facility] Comment on above: Performed By: #### A CA, 5124-3, 93433-4, 92894-0, 25765-2 #### [facility] ([id number]) [address] [address] Monocytes (Bld) [#/Vol] 0.8 10*3/uL Normal 0-0.9 [facility] Comment on above: Performed By: #### A PARUL, 5124-3, 01105-0, 02975-5, 10914-1 #### [facility] ([id number]) [address] [address] Monocytes/100 WBC (Bld) 5.6 % Normal [facility] Comment on above: Performed By: #### A CA, 5124-3, 98626-7, 59190-2, 74694-5 #### [facility] ([id number]) [address] [address] Neutrophils/100 WBC (Bld) 84.9 % Normal [facility] Comment on above: Performed By: #### A CA, 5124-3, 82351-1, 80935-7, 70070-1 #### [facility] ([id number]) [address], [facility] [address] [place] [address] Platelet mean volume (Bld) [Entitic vol] 8.5 fL Normal 7-12 [facility] Comment on above: Performed By: #### A CA, 5124-3, 67020-8, 44473-8, 53761-2 #### [facility] ([id number]) [address], [address] [place] [address] Platelets (Bld) [#/Vol] 311 10*3/uL Normal 150-450 [place] [facility] Comment on above: Performed By: #### A CA, 5124-3, 65066-6, 51977-2, 67694-3 #### [facility] ([id number]) [address], [address] [place] [address] RBC COUNT 4.00 X10E12/L Normal 3.80-5.20 [facility] Comment on above: Performed By: #### A CA, 5124-3, 43335-2, 83647-9, 54782-0 #### [facility] ([id number]) [address], [address] [place] [address] WBC (Bld) [#/Vol] 13.6 10*3/uL High 4.0-11.0 [facility] Comment on above: Performed By: #### A CA, 5124-3, 82738-8, 55471-6, 29868-1 #### [facility] ([id number]) [address], [address] [place] [address] COMPREHENSIVE METABOLIC PANE Yasmani 09-28-2023 Albumin [Mass/Vol] 3.4 g/dL Normal 3.2-5.3 [facility] Comment on above: Performed By: #### A CA, 5124-3, 09801-1, 43739-6, 19152-0 #### [facility] ([id number]) [address], [address] [place] [address] ALP [Catalytic activity/Vol] 64 U/L Normal 39-130 [facility] Comment on above: Performed By: #### A CA, 5124-3, 84650-9, 25760-2, 15438-6 #### [facility] ([id number]) [address], [address] [place] [address] ALT [Catalytic activity/Vol] 15 U/L Normal 0-31 [facility] Comment on above: Performed By: #### A CA, 5124-3, 43728-9, 15428-7, 35796-3 #### [facility] ([id number]) [address], [address] [place] [address] Anion gap [Moles/Vol] 11 mmol/L Normal 5-15 [facility] Comment on above: Performed By: #### A CA, 5124-3, 15805-4, 94587-9, 31762-2 #### [facility] ([id number]) [address], [address] [place] [address] AST [Catalytic activity/Vol] 23 U/L Normal 0-41 [facility] Comment on above: Performed By: #### A CA, 5124-3, 77478-6, 12575-8, 72567-6 #### [facility] ([id number]) [address], [address] [place] [address] Bilirubin [Mass/Vol] 0.3 mg/dL Normal 0.3-1.2 [facility] Comment on above: Performed By: #### A CA, 5124-3, 60672-5, 50338-2, 30876-3 #### [facility] ([id number]) [address], [address] [place] [address] Calcium [Mass/Vol] 8.2 mg/dL Low 8.5-10.5 [facility] Comment on above: Performed By: #### A CA, 5124-3, 64795-2, 58791-3, 14778-3 #### [facility] ([id number]) [address], [address] [place] [address] Chloride [Moles/Vol] 103 mmol/L Normal 98-109 [facility] Comment on above: Performed By: #### A CA, 5124-3, 51550-5, 91062-2, 23149-4 #### [facility] ([id number]) [address], [address] [place] [address] CO2 [Moles/Vol] 20 mmol/L Low 22-32 [facility] Comment on above: Performed By: #### A CA, 5124-3, 00219-2, 04608-1, 89467-9 #### [facility] ([id number]) [address], [facility] [address] [place] [address] Creatinine [Mass/Vol] 0.70 mg/dL Normal 0.40-1.00 [facility] Comment on above: Result Comment: METH OD TRACEABLE TO IDMS STANDARD Performed By: #### A PARUL, 5124-3, 70863-7, 51677-1, 52226-5 #### [facility] ([id number]) [address], [address] [place] [address] eGFR (CKD-EPI) NON-RACE DEPENDENT >90 Normal >59 [facility] Comment on above: Result Comment: Reported eGFR is based on the CKD-EPI 2020 equation that does not use a race coefficient. Performed By: #### A PARUL, 5124-3, 58442-7, 47806-8, 86054-9 #### [facility] ([id number]) [address], [address] [place] [address] Glucose [Mass/Vol] 101 mg/dL High 65-99 [facility] Comment on above: Performed By: #### A CA, 5124-3, 66586-8, 99521-2, 47577-3 #### [facility] ([id number]) [address], [address] [place] [address] Potassium [Moles/Vol] 4.0 mmol/L Normal 3.5-5.0 [facility] Comment on above: Performed By: #### A CA, 5124-3, 52782-2, 62270-6, 28546-5 #### [facility] ([id number]) [address], [address] [place] [address] Protein [Mass/Vol] 6.4 g/dL Normal 6.0-8.0 [facility] Comment on above: Performed By: #### A CA, 5124-3, 90630-1, 99462-3, 13221-4 #### [facility] ([id number]) [address], [address] [place] [address] Sodium [Moles/Vol] 134 mmol/L Normal 134-146 [facility] Comment on above: Performed By: #### A PARUL, 5124-3, 38948-1, 08085-6, 51782-6 #### [facility] ([id number]) [address], [address] [place] [address] Urea nitrogen [Mass/Vol] 10 mg/dL Normal 5-23 [facility] Comment on above: Performed By: #### A PARUL, 5124-3, 97563-9, 86457-5, 53866-4 #### [facility] ([id number]) [address], [address] [place] [address] Glucose Glucometer (dC) [M ass/Vol]on 09-28-2023 Glucose [Mass/Vol] 117 mg/dL High 65-99 [facility] Glucose [Mass/Vol] 139 mg/dL High 65-99 [facility] Glucose [Mass/Vol] 122 mg/dL High 65-99 [facility] Glucose [Mass/Vol] 105 mg/dL High 65-99 [facility] Glucose [Mass/Vol] 107 mg/dL High 65-99 [facility] Glucose [Mass/Vol] 114 mg/dL High 65-99 [facility] URINE VOLUME AND TIMEon 09-10 TIME 24 h Normal [facility] Comment on above: Performed By: #### A CA, 5124-3, 72186-1, 32535-1, 11864-9 #### [facility] ([id number]) [address] [address] [place] [address] TOTAL VOLUME 1860 mL Normal [facility] Comment on above: Performed By: #### A CA, 5124-3, 33548-8, 49855-9, 82548-6 #### [facility] ([id number]) [address], [facility] [address] [place] [address] COMPLETE BLOOD COUNTon 09-26 Erythrocyte distribution width (RBC) [Ratio] 13.1 % Normal 11.5-15.0 [facility] Comment on above: Performed By: #### A CA, 5124-3, 58265-1, 58491-4, 53738-8 #### [facility] ([id number]) [address], [facility] [address] [place] [address] Hematocrit (Bld) [Volume fraction] 38.6 % Normal 35-47 [facility] Comment on above: Performed By: #### A CA, 5124-3, 68476-4, 68165-9, 87178-7 #### [facility] ([id number]) [address] [address] Hemoglobin (Bld) [Mass/Vol] 13.2 g/dL Normal 11.7-15.5 [facility] Comment on above: Performed By: #### A CA, 5124-3, 29112-1, 90480-1, 11438-5 #### [facility] ([id number]) [address] [address] MCH (RBC) [Entitic mass] 30.7 pg Normal 27-34 [facility] Comment on above: Performed By: #### A CA, 5124-3, 27593-4, 35299-4, 47563-2 #### [facility] ([id number]) [address] [address] MCHC (RBC) [Mass/Vol] 34.1 g/dL Normal 32-36 [facility] Comment on above: Performed By: #### A CA, 5124-3, 34853-1, 23289-0, 74506-3 #### [facility] ([id number]) [address] [address] MCV (RBC) [Entitic vol] 90 fL Normal 80-100 [facility] Comment on above: Performed By: #### A CA, 5124-3, 28942-2, 08964-2, 53837-1 #### [facility] ([id number]) [address] [address] Platelet mean volume (Bld) [Entitic vol] 8.5 fL Normal 7-12 [facility] Comment on above: Performed By: #### A CA, 5124-3, 08768-3, 65505-6, 44831-6 #### [facility] ([id number]) [address] [address] Platelets (Bld) [#/Vol] 347 10*3/uL Normal 150-450 [facility] Comment on above: Performed By: #### A CA, 5124-3, 75433-0, 73440-3, 46279-2 #### [facility] ([id number]) [address] [address] RBC COUNT 4.29 X10E12/L Normal 3.80-5.20 [facility] Comment on above: Performed By: #### A CA, 5124-3, 56714-7, 93674-8, 73074-8 #### [facility] ([id number]) [address] [address] WBC (Bld) [#/Vol] 20.6 10*3/uL High 4.0-11.0 [facility] Comment on above: Performed By: #### A CA, 5124-3, 46318-0, 86918-1, 63767-7 #### [facility] ([id number]) [address], [address] [place] [address] COMPREHENSIVE METABOLIC PANE Yasmani 09-27-2023 Albumin [Mass/Vol] 3.6 g/dL Normal 3.2-5.3 [facility] Comment on above: Performed By: #### C MP, 2532-0, 3084-1, CBC, THYR, 94082-5 #### [facility] ([id number]) [address], [address] [place] [address] ALP [Catalytic activity/Vol] 80 U/L Normal 39-130 [facility] Comment on above: Performed By: #### C MP, 2532-0, 3084-1, CBC, THYR, 20570-9 #### [facility] ([id number]) [address], [address] [place] [address] ALT [Catalytic activity/Vol] 15 U/L Normal 0-31 [facility] Comment on above: Performed By: #### C MP, 2532-0, 3084-1, CBC, THYR, 26133-0 #### [facility] ([id number]) [address], [address] [place] [address] Anion gap [Moles/Vol] 13 mmol/L Normal 5-15 [facility] Comment on above: Performed By: #### C MP, 2532-0, 3084-1, CBC, THYR, 18829-2 #### [facility] ([id number]) [address], [address] [place] [address] AST [Catalytic activity/Vol] 25 U/L Normal 0-41 [facility] Comment on above: Performed By: #### C MP, 2532-0, 4-1, CBC, THYR, 84953-3 #### [facility] ([id number]) [address], [address] [place] [address] Bilirubin [Mass/Vol] 0.3 mg/dL Normal 0.3-1.2 [facility] Comment on above: Performed By: #### C MP, 2532-0, 4-1, CBC, THYR, 14565-1 #### [facility] ([id number]) [address], [address] [place] [address] Calcium [Mass/Vol] 8.9 mg/dL Normal 8.5-10.5 [facility] Comment on above: Performed By: #### C MP, 2532-0, 3083-1, CBC, THYR, 92451-8 #### [facility] ([id number]) [address], [address] [place] [address] Chloride [Moles/Vol] 104 mmol/L Normal 98-109 [facility] Comment on above: Performed By: #### C MP, 2532-0, 3083-1, CBC, THYR, 88724-4 #### [facility] ([id number]) [address], [address] [place] [address] CO2 [Moles/Vol] 17 mmol/L Low 22-32 [facility] Comment on above: Performed By: #### C MP, 2532-0, 3083-1, CBC, THYR, 21605-7 #### [facility] ([id number]) [address], [address] [place] [address] Creatinine [Mass/Vol] 0.70 mg/dL Normal 0.40-1.00 [facility] Comment on above: Result Comment: METH OD TRACEABLE TO IDMS STANDARD Performed By: #### C MP, 2532-0, 4-1, CBC, THYR, 00822-2 #### [facility] ([id number]) [address], [address] [place] [address] eGFR (CKD-EPI) NON-RACE DEPENDENT >90 Normal >59 [facility] Comment on above: Result Comment: Reported eGFR is based on the CKD-EPI 1 equation that does not use a race coefficient. Performed By: #### C MP, 2532-0, 4-1, CBC, THYR, 21338-1 #### [facility] ([id number]) [address], [address] [place] [address] Glucose [Mass/Vol] 93 mg/dL Normal 65-99 [facility] Comment on above: Performed By: #### C MP, 2532-0, 3083-1, CBC, THYR, 91607-3 #### [facility] ([id number]) [address], [address] [place] [address] Potassium [Moles/Vol] 3.9 mmol/L Normal 3.5-5.0 [facility] Comment on above: Performed By: #### C MP, 2532-0, 3083-1, CBC, THYR, 88878-3 #### [facility] ([id number]) [address], [address] [place] [address] Protein [Mass/Vol] 6.8 g/dL Normal 6.0-8.0 [facility] Comment on above: Performed By: #### C MP, 2532-0, 3083-1, CBC, THYR, 75905-8 #### [facility] ([id number]) [address], [address] [place] [address] Sodium [Moles/Vol] 134 mmol/L Normal 134-146 [facility] Comment on above: Performed By: #### C MP, 2532-0, 3084-1, CBC, THYR, 44564-2 #### [facility] ([id number]) [address] [address] [place] [address] Urea nitrogen [Mass/Vol] 11 mg/dL Normal 5-23 [facility] Comment on above: Performed By: #### C MP, 2532-0, 3084-1, CBC, THYR, 41650-1 #### [facility] ([id number]) [address], [address] [place] [address] DRUG SCREEN, URINEon 024 AMPHETAMINE/METHAM P Negative Normal NEG [facility] Comment on above: Result Comment: AMPH /METH screening cut off = 1000 ng/mL Performed By: #### U PCR, DSU #### [facility] ([id number]) [address], [address] [place] [address] BARBITURATES Negative Normal NEG [facility] Comment on above: Result Comment: Lupe iturates screening cut off value = 200 ng/mL Performed By: #### U PCR, DSU #### [facility] ([id number]) [address], [address] [place] [address] BENZODIAZEPINES Negative Normal NEG [facility] Comment on above: Result Comment: Jones odiazepines screening cut off value = 200 ng/mL Performed By: #### U PCR, DSU #### [facility] ([id number]) [address], [address] [place] [address] CANNABINOIDS Negative Normal NEG [facility] Comment on above: Result Comment: Debra abinoids/THC screening cut off value = 50 ng/mL Performed By: #### U PCR, DSU #### [facility] ([id number]) [address], [address] [place] [address] COCAINE METABOLITE Negative Normal NEG [facility] Comment on above: Result Comment: Coca ine screening cut off value = 300 ng/mL Performed By: #### U PCR, DSU #### [facility] ([id number]) [address], [address] [place] [address] ECSTASY Positive Abnormal NEG [facility] Comment on above: Result Comment: Inte rference from Buproprion or Labetalol may cause a positive result, confirmation available upon request. Ecstasy screening cut off value = 500 ng/mL This report is intended for use in clinical monitoring or management of patients. Performed By: #### U PCR, DSU #### [facility] ([id number]) [address], [address] [place] [address] METHADONE Negative Normal [facility] Comment on above: Result Comment: Meth adone screening cut off value = 300 ng/mL. Performed By: #### U PCR, DSU #### [facility] ([id number]) [address], [address] [place] [address] OPIATES Negative Normal [facility] Comment on above: Result Comment: Opia arsenio screening cut off value = 300 ng/mL NOTE: This test is used for the detection of codeine, hydrocodone (>1000 ng/mL), morphine and hydromorphone (>900 ng/mL) in urine. Performed By: #### U PCR, DSU #### [facility] ([id number]) [address], [address] [place] [address] OXYCODONE Negative Normal [facility] Comment on above: Result Comment: Oxyc odone screening cut off value = 300 ng/mL NOTE: This test is used for the detection of oxycodone and oxymorphone in urine. Performed By: #### U PCR, DSU #### [facility] ([id number]) [address], [address] [place] [address] PHENCYCLIDINE Negative Normal [facility] Comment on above: Result Comment: Phen cyclidine screening cut off value = 25 ng/mL Performed By: #### U PCR, DSU #### [facility] ([id number]) [address], [address] [place] [address] Glucose Glucometer (BldC) [M ass/Vol]on 09-27-2023 Glucose [Mass/Vol] 115 mg/dL High 65-99 [facility] LDH [Catalytic activity/Vol] on 09-27-2023 LDH 202 U/L Normal 100-235 [facility] Comment on above: Performed By: #### A CA, 5124-3, 24832-0, 31688-3, 94288-8 #### [facility] ([id number]) [address], [address] [address] PROTEIN CREAT RATIOon 2023 RANDOM URINE PROTEIN 350 mg/L High <120 [facility] Comment on above: Performed By: #### U PCR, DSU #### [facility] ([id number]) [address], [address] [address] U/PRO/HOTEL SERVICE MANAGER RATIO CALC 0.23 High <0.2 [facility] Comment on above: Result Comment: Neph rotic Syndrome is associated with ratios >3.5 Performed By: #### U PCR, DSU #### [facility] ([id number]) [address], [address] [address] URINE CREATININE,RDM 153.63 mg/dL Normal [facility] Comment on above: Performed By: #### U PCR, DSU #### [facility] ([id number]) [address] [address] RESP PATHOGENS/UHYH-ZnE-4ip 09-27-2023 Respiratory pathogens DNA and RNA panel [...] a patient with possible respiratory tract infection. [facility] Comment on above: Performed By: #### A DE, 5124-3, 40916-2, 19623-2, 73205-8 #### [facility] ([id number]) [address], [address] [address] STREP B SCREEN CULTUREon S. agalactiae Org specific cx Ql (Vag+Rectum) CULTURE RESULTS POSITIVE FOR GROUP B STREPTOCOCCUS BY NUCLEIC ACID AMPLIFICATION : Group B streptococci remain universally susceptible to penicillin, ampicillin, and cefazolin. Resistance to clindamycin can occur. Please contact laboratory within 48 hr if clindamycin susceptibility testing is needed. Normal [facility] Comment on above: Performed By: #### A PARUL, 5124-3, 17785-3, 09610-4, 61506-2 #### [facility] ([id number]) [address], [address] [address] T. pallidum IgG+IgM IA Ql (S )on 09-27-2023 Syphilis Total <0.2 Normal 0.0-0.8 [facility] Comment on above: Result Comment: NON REACTIVE No serologic evidence of infection to Treponema pallidum (syphilis). Repeat testing may be considered in patients with suspected acute or primary syphilis in 2 to 4 weeks. Performed By: #### A PARUL, 5124-3, 57392-3, 34911-0, 15966-7 #### [facility] ([id number]) [address], [address] [address] THYROID PROFILEon 09-27-2023 Free T4 [Mass/Vol] 0.59 ng/dL Low 0.61-1.60 [facility] Comment on above: Performed By: #### A PARUL, 5124-3, 93236-0, 64931-4, 87155-1 #### [facility] ([id number]) [address], [address] [place] [address] TSH 1.86 uIU/mL Normal 0.49-4.67 [facility] Comment on above: Performed By: #### A PARUL, 5124-3, 11608-0, 31229-8, 80895-1 #### [facility] ([id number]) [address], [address] [place] [address] URIC ACIDon 09-27-2023 Urate [Mass/Vol] 7.0 mg/dL Normal 2.6-7.[address] [facility] Comment on above: Performed By: #### A CA, 5124-3, 59343-9, 77410-5, 07348-6 #### [facility] ([id number]) [address], [address] [place] [address] URINALYSISon 09-27-2023 Bilirubin Ql (U) Negative Normal NEG [facility] Comment on above: Performed By: #### U PCR, DSU #### [facility] ([id number]) [address], [address] [place] [address] BLOOD/HGB MODERATE Abnormal NEG [facility] Comment on above: Performed By: #### U PCR, DSU #### [facility] ([id number]) [address], [address] [place] [address] Color (U) YELLOW Normal YELLOW [facility] Comment on above: Performed By: #### U PCR, DSU #### [facility] ([id number]) [address], [address] [place] [address] Glucose Ql (U) Negative Normal NEG [facility] Comment on above: Performed By: #### U PCR, DSU #### [facility] ([id number]) [address], [address] [place] [address] Hyaline casts LM Ql (Urine sed) 3 /lpf High 0-2 [facility] Comment on above: Performed By: #### U PCR, DSU #### [facility] ([id number]) [address], [address] [place] [address] Ketones Ql (U) 20 mg/dL Abnormal NEG [facility] Comment on above: Performed By: #### U PCR, DSU #### [facility] ([id number]) [address], [address] [place] [address] Leukocyte esterase Test strip Ql (U) Negative Normal NEG [facility] Comment on above: Performed By: #### U PCR, DSU #### [facility] ([id number]) [address], [address] [place] [address] MUCOUS PRESENT Abnormal NONE [facility] Comment on above: Performed By: #### U PCR, DSU #### [facility] ([id number]) [address], [address] [place] [address] Nitrite Ql (U) Negative Normal NEG [facility] Comment on above: Performed By: #### U PCR, DSU #### [facility] ([id number]) [address], [address] [place] [address] pH (U) 5.5 [pH] Normal 5.0-8.5 [facility] Comment on above: Performed By: #### U PCR, DSU #### [facility] ([id number]) [address], [address] [place] [address] Protein Ql (U) 30 mg/dL Abnormal NEG [facility] Comment on above: Performed By: #### U PCR, DSU #### [facility] ([id number]) [address], [address] [place] [address] R.B.CELLS 53 /hpf High 0-5 [facility] Comment on above: Performed By: #### U PCR, DSU #### [facility] ([id number]) [address], [address] [place] [address] Specific gravity (U) [Rel density] 1.027 Normal 1.003-1.035 [facility] Comment on above: Performed By: #### U PCR, DSU #### [facility] ([id number]) [address], [address] [address] SQUAMOUS EPITHELIUM 1 /hpf Normal 0-5 [facility] Comment on above: Performed By: #### U PCR, DSU #### [facility] ([id number]) [address] [address] TURBIDITY CLEAR Normal CLEAR [facility] Comment on above: Performed By: #### U PCR, DSU #### [facility] ([id number]) [address], [address] [address] Urobilinogen (U) [Mass/Vol] mg/dL Normal <1.1 [facility] Comment on above: Performed By: #### U PCR, DSU #### [facility] ([id number]) [address] [address] W.B.CELLS 3 /hpf Normal 0-5 [facility] Comment on above: Performed By: #### U PCR, DSU #### [facility] ([id number]) [address] [address] URINE CULTUREon 09-27-2023 Bacteria identified Cx Nom (U) SPECIMEN NOTES URINE RECEIVED WITHOUT PRESERVATIVE CULTURE RESULTS NO GROWTH AT <1000 CFU/mL Normal [facility] Comment on above: Performed By: #### A CA, 5124-3, 74841-4, 82241-4, 75445-9 #### [facility] ([id number]) [address] [address] No Panel Informationon 08-31 Unlisted lab test see scanned report [facility] Urinalysis macro (dipstick) panel (U)on 08-18-2023 Bilirubin, UA Negative Negative - 4(70) +++ mg/dL [facility] Blood, UA Negative Negative - 50 Izaiah/mcL [facility] Clarity, UA Clear [facility] Color, UA Yellow [facility] Glucose, UA Negative Negative - 2000(110) ++++ mg/dL [facility] Interpretation and review of laboratory results Abnormal [facility] Ketones, UA Negative Negative - 160(16) ++++ mg/dL [facility] Leukocytes, UA Trace Negative - 500+++ Susy/mcL [facility] Nitrite, UA Negative Negative - Positive [facility] pH, UA 7.0 5 - 9 [facility] Protein, UA Trace Negative - 2000(20) ++++ mg/dL [facility] Spec Grav, UA 1.025 1 - 1.03 [facility] Urobilinogen, UA 0.2 0.2 - 12 mg/dL [facility] [place] B Abon 08-15-2023 Blanquita akhtar. B1 <1:10 Normal <1:10 [facility] Comment on above: Performed By: #### U RTPRT #### [email or web address] [address] [place] [address] Software Development Leader: MD Blanquita Barton. B2 <1:10 Normal <1:10 [facility] Comment on above: Performed By: #### U RTPRT #### [address] [address] Software Development Leader: MD Blanquita Barton. B3 <1:10 Normal <1:10 [facility] Comment on above: Performed By: #### U RTPRT #### [facility] [address] [place] [address] Software Development Leader: MD Blanquita Barton. B4 1:40 Normal <1:10 [facility] Comment on above: Performed By: #### U RTPRT #### [facility] [address] [place] [address] Software Development Leader: MD Blanquita Barton. B5 1:20 Normal <1:10 [facility] Comment on above: Performed By: #### U RTPRT #### [address] [id number] Software Development Leader: Gonzalo Cain MD [place]ackie tp. B6 <1:10 Normal <1:10 [facility] Comment on above: Result Comment: (NOT E) INTERPRETIVE INFORMATION: [place]ackie B Virus Single positive antibody titers of greater than or equal to 1:80 may indicate past or current infection. Sero- conversion or an increase in titers between acute and convalescent sera of at least fourfold is considered strong evidence of current or recent infection. Performed By: [facility] [address] [place] [address] Semiconductor Engineer: Nikita Pantoja MD, PhD CLIA Number: [id number] Performed By: #### U RTPRT #### [address] [id number] Software Development Leader: Gonzalo Cain MD Protein S Ag, Freeon 024 Protein S Ag, Free 61 % Normal 55-123 [facility] Comment on above: Result Comment: (NOT [...] reference intervals for this test in the [facility] [employer] [facility] Test Directory ([employer]). Performed By: [facility] [address] [place] [address] Semiconductor Engineer: Nikita Pantoja MD, PhD CLIA Number: [id number] Performed By: #### U RTPRT #### [address] [id number] Software Development Leader: Gonzalo Cain MD Protein S, Antigenicon 08-14 Protein S, Antigenic 129 % High 63-126 [facility] Comment on above: Result Comment: (NOT E) INTERPRETIVE INFORMATION: Protein S, Total Antigen Patients on warfarin may have decreased protein S values. Patients should be off warfarin therapy for two weeks for accurate measurement of protein S. Access complete set of age- and/or gender-specific reference intervals for this test in the [facility] Test Directory ([employer]). Performed By: [facility] [address] [place] [address] Semiconductor Engineer: Nikita Pantoja MD, PhD CLIA Number: [id number] Performed By: #### U RTPRT #### [facility] [address] [address] Software Development Leader: Gonzalo Cain MD Antithrombin III Valentina 08-12 Antithrombin III Act 114 % Normal 83-122 [facility] Comment on above: Result Comment: Patients receiving Hirudin may have a falsely decreased Antitrombin III Activity. Performed By: #### U RTPRT #### [address] [address] Software Development Leader: Gonzalo Cain MD Lupus Anticoagulanton 2023 Dilute Madhuri Viper Negative Normal NLUP [facility] Comment on above: Performed By: #### L UPPRO #### [address] [address] Software Development Leader: Gonzalo Cain MD Protein C Activityon 024 Protein C Activity 86 % Normal >80 [facility] Comment on above: Result Comment: Patients [...] VIII. Performed By: #### U RTPRT #### [address] [address] Software Development Leader: Gonzalo Cain MD Protein S Activityon 024 Protein S Activity 54 % Low 59-130 [facility] Comment on above: Result Comment: Patients [...] VIII. Performed By: #### U RTPRT #### [facility] [address] [place] [address] Software Development Leader: Gonzalo Cain MD Factor V Mutationon 08-11-19 24 F 5 SPECIMEN Whole Blood Normal [facility] Comment on above: Performed By: #### A PARVP, AF5MUT, APRTSF, ACOXAB, ACOXA9, APTMUT, AMTHFR, APROTS #### [employer] [address] [place] [address] Software Development Leader: Arben Carrington MD #### AT3A, PROSAC, HOCYS, ACARDA, FT4, PROCAC, TSH #### [facility] [place], [place] 1558208 Software Development Leader: Gonzalo Cain MD FACTOR 5 MUTATION Negative Normal [facility] Comment on above: Result Comment: (NOT E) Indication for testing: Assess genetic risk for thrombosis. NEGATIVE: The factor V Leiden variant, c.1601G>A; p.Yaj488Jdj, was not detected. This does not exclude [...] function in the F5 gene variant c.1601G>A (p.Fzd929Msm). Legacy nomenclature: R506Q (1691G>A) CLINICAL SENSITIVITY: 20-50 percent of individuals with an isolated VTE have the FVL variant. METHODOLOGY: Polymerase chain reaction and fluorescence monitoring. ANALYTICAL SENSITIVITY AND SPECIFICITY: 99 percent. LIMITATIONS: Diagnostic errors can occur due to rare sequence variations. F5 gene mutations, other than p.Cxt363Ihe, will not be detected. This test was developed and its performance characteristics determined by [facility]. It has not been cleared or approved by the [place] Food and Drug Administration. This test was performed in a CLIA certified laboratory and is intended for clinical purposes. Counseling and informed consent are recommended for genetic testing. Consent forms are available online. Performed By: [facility] [address] [place] [address] Semiconductor Engineer: Nikita Pantoja MD, PhD CLIA Number: [id number] Performed By: #### A PARVP, AF5MUT, APRTSF, ACOXAB, ACOXA9, APTMUT, AMTHFR, APROTS #### [facility] [address] [place] [address] [id number] Software Development Leader: Arben Carrington MD #### AT3A, PROSAC, HOCYS, ACARDA, FT4, PROCAC, TSH #### [facility] [address] [place] [address] Software Development Leader: Gonzalo Cain MD PT Mutation [id number] 08-11-19 24 PT [id number] VARIANT Negative Normal [facility] Comment on above: Result Comment: (NOT E) Indication for testing: Assess genetic risk for thrombosis. NEGATIVE: The Factor II, prothrombin O97345A mutation, was not detected. Other causes of [...] M.D., Ph.D. BACKGROUND INFORMATION: Prothrombin (F2) c.*97G>A (E02499C) Pathogenic Variant CHARACTERISTICS: The Factor II, c.*97G>A (U61271X) pathogenic variant is a common genetic risk [...] CAUSE: Homozygosity or heterozygosity for F2 c.*97G>A (S40506P). PATHOGENIC VARIANT TESTED: F2 c.*97G>A (J59700B). CLINICAL SENSITIVITY FOR VENOUS THROMBOSIS: Approximately 10 percent. METHODOLOGY: Polymerase chain reaction and fluorescence monitoring. ANALYTICAL SENSITIVITY AND SPECIFICITY: 99 percent. LIMITATIONS: Diagnostic errors can occur due to rare sequence variations. F2 gene variants, other than c.*97G>A (H65748H), will not be detected. This test was developed and its performance characteristics determined by [facility]. It has not been cleared or approved by the US Food and Drug Administration. This test was performed in a CLIA certified laboratory and is intended for clinical purposes. Counseling and informed consent are recommended for genetic testing. Consent forms are available online. Performed By: [facility] [address] [place] [address] Semiconductor Engineer: Nikita Pantoja MD, PhD CLIA Number: [id number] Performed By: #### U RTPRT #### [address] [id number] Software Development Leader: Gonzalo Cain MD PT PCR SPECIMEN Whole Blood Normal [facility] Comment on above: Performed By: #### U RTPRT #### [address] [id number] Software Development Leader: Gonzalo Cain MD [place] A9 Titeron 024 [place] A9 Titer <1:8 Normal <1:8 [facility] Comment on above: Result Comment: (NOT E) INTERPRETIVE INFORMATION: [place] A Serotype 9 Titer Single positive antibody titers of greater than 1:32 may indicate past or current infection. Seroconversion or an increase in titers between acute and convalescent sera of at least fourfold is considered strong evidence of current or recent infection. Performed By: [facility] [address] [place] [address] Semiconductor Engineer: Nikita Pantoja MD, PhD CLIA Number: [id number] Performed By: #### A PARVP, AF5MUT, APRTSF, ACOXAB, ACOXA9, APTMUT, AMTHFR, APROTS #### [address] [address] Software Development Leader: Arben Carrington MD #### AT3A, PROSAC, HOCYS, ACARDA, FT4, PROCAC, TSH #### [address] [id number] Software Development Leader: Gonzalo Cain MD MTHFR Gene Mutationon 2023 MTHFR 1286 A>C Mut Negative Normal [facility] Comment on above: Performed By: #### A PARVP, AF5MUT, APRTSF, ACOXAB, ACOXA9, APTMUT, AMTHFR, APROTS #### [facility] [address] [place] [address] Software Development Leader: Arben Carrington MD #### AT3A, PROSAC, HOCYS, ACARDA, FT4, PROCAC, TSH #### [facility] [place], [place] [id number] Software Development Leader: Gonzalo Cain MD MTHFR 655C>T Mut Homozygous Normal [facility] Comment on above: Performed By: #### A PARVP, AF5MUT, APRTSF, ACOXAB, ACOXA9, APTMUT, AMTHFR, APROTS #### [facility] [address] [place] [address] Software Development Leader: Arebn Carrington MD #### AT3A, PROSAC, HOCYS, ACARDA, FT4, PROCAC, TSH #### [address] [address] Software Development Leader: Gonzalo Cain MD MTHFR Interpretation See Note Normal [facility] Comment on above: Result Comment: (NOT E) Indication for testing: Determine genetic contribution to hyperhomocysteinemia. Homozygous MTHFR c.665C>T: Two copies of the MTHFR gene variant c.665C>T (previously designated C677T) were detected; the c.1286A>C (previously designated A1447I) variant was not detected. Homozygosity for the [...] has an effect on cardiovascular disease. The [employer] Practice Guidelines indicate [...] a contributing factor to hyperhomocysteinemia. Variants Tested: c.665C>T(p.Mes675Awd) and c.1286A>C(p.Eqa312Sqs). (legacy names C677T and U8870E, respectively). Clinical Sensitivity: Undefined; hyperhomocysteinemia is caused [...] developed and its performance characteristics determined by [facility]. It has not been cleared or approved by the US Food and Drug Administration. This test was performed in a CLIA certified laboratory and is intended for clinical purposes. Counseling and informed consent are recommended for genetic testing. Consent forms are available online. Performed By: [facility] [address] [place] [address] Semiconductor Engineer: Nikita Pantoja MD, PhD CLIA Number: [id number] Performed By: #### A PARVP, AF5MUT, APRTSF, ACOXAB, ACOXA9, APTMUT, AMTHFR, APROTS #### [facility] [address] [place] [address] Software Development Leader: Arben Carrington MD #### AT3A, PROSAC, HOCYS, ACARDA, FT4, PROCAC, TSH #### [address] [address] Software Development Leader: Gonzalo Cain MD MTHFR SPECIMEN Whole Blood Normal [facility] Comment on above: Performed By: #### A PARVP, AF5MUT, APRTSF, ACOXAB, ACOXA9, APTMUT, AMTHFR, APROTS #### [facility] [address] [place] [address] Software Development Leader: Arben Carrington MD #### AT3A, PROSAC, HOCYS, ACARDA, FT4, PROCAC, TSH #### [address] [id number] Software Development Leader: Gonzalo Cain MD Parvovirus B19 Panelon 08-10 Parvovirus IgG B19 0.18 IV Normal <=0.90 [facility] Comment on above: Result Comment: (NOT [...] APTMUT, AMTHFR, APROTS #### [facility] [address] [place] [address] Software Development Leader: Arben Carrington MD #### AT3A, PROSAC, HOCYS, ACARDA, FT4, PROCAC, TSH #### [address] [address] Software Development Leader: Gonzalo Cain MD Parvovirus IgM B19 0.24 IV Normal <=0.90 [facility] Comment on above: Result Comment: (NOT E) INTERPRETIVE INFORMATION: Parvovirus B19 Antibody, IgM [facility] 05/21/2023 REFERENCE INTERVAL CHANGE Due to reagent kit supervisor sewing room recall, an alternate kit has been validated and implemented by [facility]. The following Reference Interval applies [...] levels of specific IgM antibodies. Performed By: [facility] [address] [place] [address] Semiconductor Engineer: Niikta Pantoja MD, PhD CLIA Number: [id number] Performed By: #### A PARVP, AF5MUT, APRTSF, ACOXAB, ACOXA9, APTMUT, AMTHFR, APROTS #### [email or web address] [address] [place] [address] Software Development Leader: Arben Carrington MD #### AT3A, PROSAC, HOCYS, ACARDA, FT4, PROCAC, TSH #### [place] [facility] [address] [place], [place] [id number] Software Development Leader: Gonzalo Cain MD Cardiolipin Ab G,A,Mon 08-08 Anticardiolipin IgG 0.7 GPL Normal 0.0-10.0 [facility] Comment on above: Result Comment: Reference Range: <10.0 Negative 10.0-40.0 Equivocal >40.0 Positive Performed By: #### A PARVP, AF5MUT, APRTSF, ACOXAB, ACOXA9, APTMUT, AMTHFR, APROTS #### [facility] [address], [place] [id number] Software Development Leader: Arben Carrington MD #### AT3A, PROSAC, HOCYS, ACARDA, FT4, PROCAC, TSH #### [address] [address] Software Development Leader: Gonzalo Cain MD Anticardiolipin IgA 1.9 APL Normal 0.0-14.0 [facility] Comment on above: Result Comment: Reference Range: <14.0 Negative 14.0-20.0 Equivocal >20.0 Positive When results are Equivocal, it is recommended to retest after 4-6 weeks. Performed By: #### A PARVP, AF5MUT, APRTSF, ACOXAB, ACOXA9, APTMUT, AMTHFR, APROTS #### [facility] [address] [place] [address] Software Development Leader: Arben Carrington MD #### AT3A, PROSAC, HOCYS, ACARDA, FT4, PROCAC, TSH #### [address] [address] Software Development Leader: Gonzalo Cain MD Anticardiolipin IgM 1.0 MPL Normal 0.0-10.0 [facility] Comment on above: Result Comment: Reference Range: <10.0 Negative 10.0-40.0 Equivocal >40.0 Positive Performed By: #### A PARVP, AF5MUT, APRTSF, ACOXAB, ACOXA9, APTMUT, AMTHFR, APROTS #### [facility] [address] [place] [address] Software Development Leader: Arben Carrington MD #### AT3A, PROSAC, HOCYS, ACARDA, FT4, PROCAC, TSH #### [facility] [address] [place] [address] [id number] Software Development Leader: Gonzalo Cain MD Homocysteineon 8 Homocysteine 5.4 umol/L Normal <15.0 [facility] Comment on above: Performed By: #### A PARVP, AF5MUT, APRTSF, ACOXAB, ACOXA9, APTMUT, AMTHFR, APROTS #### [facility] [address] [place] [address] Software Development Leader: Arben Carrington MD #### AT3A, PROSAC, HOCYS, ACARDA, FT4, PROCAC, TSH #### [facility] [address] [place] [address] [id number] Software Development Leader: Gonzalo Cain MD Lupus Anticoagulanton 08-06- 4463 aPTT Coag (Bld) [Time] 25.4 s Normal 23.0-36.5 [facility] Comment on above: Result Comment: IV Heparin Therapy Range: 66.0-92.0 sec Performed By: #### L UPPRO #### [facility] [address] [place] [address] [id number] Software Development Leader: Gonzalo Cain MD INR Coag (PPP) [Relative time] 1.0 {INR} Normal [facility] Comment on above: Result Comment: Therapeutic Range: Moderate Anticoagulant Intensity: INR = 2.0-3.0 High Anticoagulant Intensity: INR = 2.5-3.5 Performed By: #### L UPPRO #### [facility] [address] [place] [address] [id number] Software Development Leader: Gonzalo Cain MD PT Coag (PPP) [Time] 13.0 s Normal 11.7-14.9 [facility] Comment on above: Performed By: #### L UPPRO #### [address] [address] Software Development Leader: Gonzalo Cain MD Protein,Tot,Nekoma Uron 2023 Creatinine [Mass/Vol] 221.0 mg/dL High 28.0-217.0 [facility] Comment on above: Performed By: #### U RTPRT #### [address] [address] Software Development Leader: Gonzalo Cain MD Tot Prot. Conc. 15 mg/dL Normal [facility] Comment on above: Result Comment: No n ormal range established. Performed By: #### U RTPRT #### [address] [address] Software Development Leader: Gonzalo Cain MD TP/Cre Ratio 0.07 Normal [facility] Comment on above: Performed By: #### U RTPRT #### [address] [address] Software Development Leader: Gonzalo Cain MD Thyroid Stim. Horm.on 2023 Thyroid Stim. Horm. 1.89 uIU/mL Normal 0.30-5.00 [facility] Comment on above: Performed By: #### A PARVP, AF5MUT, APRTSF, ACOXAB, ACOXA9, APTMUT, AMTHFR, APROTS #### [facility] [address] [place] [address] Software Development Leader: Arben Carrington MD #### AT3A, PROSAC, HOCYS, ACARDA, FT4, PROCAC, TSH #### [address] [address] Software Development Leader: Gonzalo Cain MD Thyroxine, Freeon 08-06-2023 Thyroxine, Free 1.1 ng/dL Normal 0.9-1.7 [facility] Comment on above: Performed By: #### A PARVP, AF5MUT, APRTSF, ACOXAB, ACOXA9, APTMUT, AMTHFR, APROTS #### [facility] [address] [place] [address] Software Development Leader: Arben Carrington MD #### AT3A, PROSAC, HOCYS, ACARDA, FT4, PROCAC, TSH #### [facility] [address] [place] [address] Software Development Leader: Gonzalo Cain MD ANTI CARDIOLIPIN AB IGG IGA IGMon 08-04-2023 NATHAN IgA <2.0 Normal 0-19.9 [facility] Comment on above: Performed By: #### A CA, 5124-3, 55557-0, 27663-3, 37962-5 #### [facility] ([id number]) [address], [address] [address] NATHAN IgG <1.6 Normal 0-19.9 [facility] Comment on above: Performed By: #### A CA, 5124-3, 89825-3, 93747-4, 26945-0 #### [facility] ([id number]) [address], [address] [place] [address] NATHAN IgM <1.5 Normal 0-19.9 [facility] Comment on above: Performed By: #### A CA, 5124-3, 02503-7, 30292-1, 74936-7 #### [facility] ([id number]) [address], [address] [place] [address] Anti cardiolipin AB IgG IgA IgMon 08-04-2023 Cardiolipin IgA IA Qn (S) [facility] Cardiolipin IgG IA Qn (S) [facility] Cardiolipin IgM IA Qn (S) [facility] CMV IgG IA Qnon 08-04-2023 Interpretation and review of laboratory results Abnormal [facility] CYTOMEGALOVIRUS IgG >8.0 High <0.9 [facility] Comment on above: Result Comment: Interpretation-------- <0.9 Negative 0.9 - 1.0 Equivocal >1.0 Positive Performed By: #### A PARUL, 5124-3, 87912-1, 25926-8, 76265-1 #### [facility] ([id number]) [address] [place] [address], [address] [address] CMV IgMon 08-04-2023 CMV IgM IA Ql [facility] Comment on above: Interpretation-------- <0.9 Negative 0.9 - 1.0 Equivocal >1.0 Positive NOTE The following results were obtained with the [employer] [facility] To[facility] IgM test. Results obtained from other [employer]'s assay methods may not be used interchangeably. CMV IgM IA Qlon 08-04-2023 [facility] CYTOMEGALOVIRUS IgM <0.2 Normal <0.9 [facility] Comment on above: Result Comment: Interpretation-------- <0.9 Negative 0.9 - 1.0 Equivocal >1.0 Positive NOTE The following results were obtained with the [employer] [facility] To[facility] IgM test. Results obtained from other [employer]ist's assay methods may not be used interchangeably. Performed By: #### A PARUL, 5124-3, 59359-1, 99783-4, 78223-4 #### [facility] ([id number]) [facility] [address], [address] [place] [address] Cytomegalovirus antibody, Ig Blaze 08-04-2023 CMV IgG IA Qn [facility] Comment on above: Interpretation-------- <0.9 Negative 0.9 - 1.0 Equivocal >1.0 Positive Syphilis Total(Unknown Syphi lis Status)on 08-04-2023 T. pallidum IgG+IgM IA Ql (S) [facility] Comment on above: NON REACTIVE No serologic evidence of infection to Treponema pallidum (syphilis). Repeat testing may be considered in patients with suspected acute or primary syphilis in 2 to 4 weeks. T. gondii IgM IA Qlon 2023 [facility] TOXOPLASMA IGM <0.2 Normal <0.9 [facility] Comment on above: Result Comment: Interpretation-------- <0.9 Negative 0.9 - 1.0 Equivocal >1.0 Positive NOTE The following results were obtained with the [employer] [facility] To[facility] IgM test. Results obtained from other [employer]'s assay methods may not be used interchangeably. Performed By: #### A PARUL, 5124-3, 75384-0, 08206-5, 15852-1 #### [facility] ([id number]) [address] [place] [address] T. pallidum IgG+IgM IA Ql (S )on 08-04-2023 [facility] Syphilis Total <0.2 Normal 0.0-0.8 [facility] Comment on above: Result Comment: NON REACTIVE No serologic evidence of infection to Treponema pallidum (syphilis). Repeat testing may be considered in patients with suspected acute or primary syphilis in 2 to 4 weeks. Performed By: #### A PARUL, 5124-3, 24312-6, 34100-7, 94604-8 #### [facility] ([id number]) [address] [place] [address], [place] [id number] Toxoplasma IgMon 08-04-2023 T. gondii IgM IA Ql A1 NINF - 0.9 A1 [facility] Comment on above: Interpretation-------- <0.9 Negative 0.9 - 1.0 Equivocal >1.0 Positive NOTE The following results were obtained with the [employer] [facility] To[facility] IgM test. Results obtained from other [employer]'s assay methods may not be used interchangeably. dRVVT/dRVVT.excess phospholi pid Coag (PPP) [Ratio]on 08-04-2023 [facility] Negative Normal [facility] Comment on above: Performed By: #### 5 0410-0 #### [facility] ([id number]) [address], [address] [place] [address] dRVVT excess phospholipid Coag Ql (PPP) Negative [facility] MRI KNEE WO CONTRAST LEFTon 04-18-2017 [facility] [address] [place] [id number] Patient Name: SISI CELIS : 1995Sex: FAge: Race: WhiteMRN: [id number]. Location: LPOPPatient Status: DVisit #: [id number] Date: 04/18/2017 8:15:00 AMCompleted Date: 04/18/2017 08:53 AMRequesting Provider: MORIAH BOND Attending Provider: Report Copy To: OLMAN VELA Signs & Symptoms: Internal derangement knee, leftHistory: Order in RIS, No FB per mother Auth # [id number] Valid 04/06/17-05/06/17. Auth scanned into RIS.Comments: Exam: MRI KNEE WO CONTRAST LEFTAccession #: [id number] MRI KNEE WO CONTRAST LEFT 04/18/2017 8:53 [...] 16. Electronically signed by:Guzman Saba. Transcribed by: [email or web address], User Resident: Electronically Signed by: GUZMAN SABA @ 04/20/2017 02:46 PM Normal [facility] Vital Signs Date Time Vital Sign Value Performing Clinician Facility 12-21-2024 11:28-0400 Body height 170.18 cm [facility] 12-21-2024 11:28-0400 Body mass index (BMI) [Ratio] 45.7 kg/m2 [facility] 12-21-2024 11:28-0400 Body temperature 98.7 [degF] [facility] 12-21-2024 11:28-0400 Body weight 132.44 kg [facility] 12-21-2024 11:28-0400 Diastolic blood pressure 70 mm[Hg] [facility] 12-21-2024 11:28-0400 Heart rate 78 /min [facility] 12-21-2024 11:28-0400 SaO2% (BldA) [Mass fraction] 98 % [facility] 12-21-2024 11:28-0400 Systolic blood pressure 118 mm[Hg] [facility] 11-04-2024 08:58-0400 Body height 170.18 cm [facility] 11-04-2024 08:58-0400 Body mass index (BMI) [Ratio] 45.8 kg/m2 [facility] 11-04-2024 08:58-0400 Body temperature 97.5 [degF] [facility] 11-04-2024 08:58-0400 Body weight 132.9 kg [facility] 11-04-2024 08:58-0400 Diastolic blood pressure 84 mm[Hg] [facility] 11-04-2024 08:58-0400 Heart rate 84 /min [facility] 11-04-2024 08:58-0400 SaO2% (BldA) [Mass fraction] 98 % [facility] 11-04-2024 08:58-0400 Systolic blood pressure 126 mm[Hg] [facility] 10-03-2024 09:03-0400 Body height 170.18 cm [facility] 10-03-2024 09:03-0400 Body mass index (BMI) [Ratio] 46.2 kg/m2 [facility] 10-03-2024 09:03-0400 Body temperature 96.2 [degF] [facility] 10-03-2024 09:03-0400 Body weight 133.97 kg [facility] 10-03-2024 09:03-0400 Diastolic blood pressure 84 mm[Hg] [facility] 10-03-2024 09:03-0400 Heart rate 100 /min [facility] 10-03-2024 09:03-0400 SaO2% (BldA) [Mass fraction] 98 % [facility] 10-03-2024 09:03-0400 Systolic blood pressure 120 mm[Hg] [facility] 06-29-2024 15:10-0500 Body mass index (BMI) [Ratio] 46.27 kg/m2 Olga PAUL Work Phone: [facility] 06-29-2024 15:10-0500 Body weight 133.99 kg Olga PAUL Work Phone: [facility] 06-29-2024 15:10-0500 Diastolic blood pressure 70 mm[Hg] Olga PAUL Work Phone: [facility] 06-29-2024 15:10-0500 Systolic blood pressure 120 mm[Hg] Olga PAUL Work Phone: [facility] 05-30-2024 13:10-0500 Body mass index (BMI) [Ratio] 46.2 kg/m2 Contreras Emili DO Work Phone: [facility] 05-30-2024 13:10-0500 Body weight 133.81 kg Contreras Emili DO Work Phone: [facility] 05-30-2024 13:10-0500 Diastolic blood pressure 76 mm[Hg] Contreras Emili DO Work Phone: [facility] 05-30-2024 13:10-0500 Systolic blood pressure 118 mm[Hg] Contreras Emili DO Work Phone: [facility] 03-08-2024 13:06-0400 Body mass index (BMI) [Ratio] 44.5 kg/m2 Contreras Emili DO Work Phone: [facility] 03-08-2024 13:06-0400 Body weight 128.88 kg Contreras Emili DO Work Phone: [facility] 03-08-2024 13:06-0400 Diastolic blood pressure 80 mm[Hg] Contreras Emili DO Work Phone: [facility] 03-08-2024 13:06-0400 Systolic blood pressure 130 mm[Hg] Contreras Emili DO Work Phone: [facility] 10-10-2023 02:11-0400 SaO2% (BldA) [Mass fraction] 89 % JAK ANAYA [facility] Comment on above: Performed By: #### UPCR, DSU #### [facility] ([id number]) [address], [address] [place] [address] 08-18-2023 10:27-0500 Body mass index (BMI) [Ratio] 44.19 kg/m2 Contreras Emili DO Work Phone: [facility] 08-18-2023 10:27-0500 Body weight 127.97 kg Contreras Emili DO Work Phone: [facility] 08-18-2023 10:27-0500 Diastolic blood pressure 80 mm[Hg] Contreras Emili DO Work Phone: [facility] 08-18-2023 10:27-0500 Systolic blood pressure 122 mm[Hg] Contreras Emili DO Work Phone: [facility] 08-04-2023 10:46-0500 Diastolic blood pressure 85 mm[Hg] Yanelis Garrido MD Work Phone: [facility] 08-04-2023 10:46-0500 Heart rate 85 /min Yanelis Garrido MD Work Phone: [facility] 08-04-2023 10:46-0500 Systolic blood pressure 138 mm[Hg] Yanelis Garrido MD Work Phone: [facility] 08-04-2023 08:25-0500 Body height 170.2 cm Yanelis Garrido MD Work Phone: [facility] 08-04-2023 08:25-0500 Body mass index (BMI) [Ratio] 43.98 kg/m2 Yanelis Garrido MD Work Phone: [facility] 08-04-2023 08:25-0500 Body weight 127.37 kg Yanelis Garrido MD Work Phone: [facility] Encounters Encounter Date Encounter Type Care Provider Facility Start: 12-21-2024 End: 12-21-2024 ambulatory [facility] Work Phone: Start: 12-21-2024 End: 12-21-2024 Patient encounter procedure [facility] Work Phone: Start: 11-04-2024 End: 11-04-2024 ambulatory [facility] Work Phone: Start: 11-04-2024 End: 11-04-2024 Patient encounter procedure [facility] Work Phone: Start: 10-03-2024 End: 10-03-2024 ambulatory [facility] Work Phone: Start: 10-03-2024 End: 10-03-2024 Patient encounter procedure [facility] Work Phone: Start: 08-05-2024 End: 08-05-2024 Admission to same [...] PSYL Start: 08-02-2024 ambulatory DO DINORAH GILBERT [facility] Start: 06-29-2024 End: 06-29-2024 Office outpatient visit 10 minutes Olga PAUL Work Phone: [facility] Comment on above: Encounter for weight management Start: 06-29-2024 End: 06-29-2024 ambulatory OLGA ESCOBAR Not Available Start: 06-29-2024 End: 06-29-2024 Bamboo flowsheet Olga Escobar PA Work Phone: [facility] Start: 06-29-2024 [...] Result Encounter Contreras Emili DO Work Phone: [facility] Unsolicited Start: 05-03-2024 End: 05-03-2024 Patient encounter procedure Contreras Emili DO Work Phone: [facility] Work Phone: Start: 05-03-2024 End: 05-03-2024 Periodic preventive med est patient 18-39 yrs Contreras Emili DO Work Phone: [facility] Comment on above: Well woman exam with routine gynecological exam; depression (CMS/HCC); Follow-up exam; Post depression (CMS/HCC); Insulin resistance Start: 05-03-2024 End: 05-03-2024 ambulatory CONTRERAS EMILI Not Available Start: 04-27-2024 End: 04-27-2024 ambulatory DO DINORAH P OFELIA Facility:[facility] Start: 04-05-2024 End: 04-05-2024 ambulatory DO DINORAH P HOUSE Facility:[facility] Start: 03-08-2024 End: 03-08-2024 Bamboo flowsheet Contreras Emili DO Work Phone: [facility] Start: 03-08-2024 End: 03-08-2024 Bamboo flowsheet Contreras Emili DO Work Phone: [facility] Start: 03-08-2024 End: 03-08-2024 Office outpatient visit 15 minutes Contreras Emili DO Work Phone: [facility] Comment on above: Post depressi on (CMS/HCC) Start: 03-08-2024 End: 03-08-2024 ambulatory CONTRERAS EMILI Not Available Start: 03-08-2024 ambulatory DINORAH P OFELIA Facilit y:[facility] Start: 03-07-2024 End: 03-07-2024 ambulatory DINORAH P HOUSE Facility:[facility] Start: 02-04-2024 End: 02-04-2024 ambulatory DO DINORAH P OFELIA Facility:[facility] Start: 01-05-2024 End: 01-05-2024 ambulatory DO DINORAH P HOUSE Facility:[facility] Start: 12-21-2023 End: 12-21-2023 Encounter Alfonzo Guerra MD Work Phone: [address] NICU Start: 12-20-2023 End: 12-20-2023 Encounter Alfonzo Guerra MD Work Phone: [facility] 3E NICU Start: 12-18-2023 End: 12-18-2023 Encounter Alfonzo Guerra MD Work Phone: [address] NICU Start: 12-17-2023 End: 12-17-2023 Encounter Alfonzo Guerra MD Work Phone: [address] NICU Start: 12-13-2023 End: 12-13-2023 Encounter Alfonzo Guerra MD Work Phone: [address] NICU Start: 12-11-2023 End: 12-11-2023 Encounter Alfonzo Guerra MD Work Phone: [address] NICU Start: 12-10-2023 End: 12-10-2023 Encounter Alfonzo Guerra MD Work Phone: [address] NICU Start: 12-08-2023 End: 12-08-2023 Encounter Alfonzo Guerra MD Work Phone: [address] NICU Start: 12-07-2023 End: 12-07-2023 Encounter Alfonzo Guerra MD Work Phone: [address] NICU Start: 12-04-2023 End: 12-04-2023 Encounter Alfonzo Guerra MD Work Phone: [address] NICU Start: 12-03-2023 End: 12-03-2023 Encounter Alfonzo Guerra MD Work Phone: [address] NICU Start: 12-01-2023 End: 12-01-2023 Encounter Alfonzo Guerra MD Work Phone: [address] NICU Start: 11-27-2023 End: 11-27-2023 Encounter Alfonzo Guerra MD Work Phone: [address] NICU Start: 11-26-2023 End: 11-26-2023 Encounter Alfonzo Guerra MD Work Phone: [address] NICU Start: 11-24-2023 End: 11-24-2023 Encounter Alfonzo Guerra MD Work Phone: [address] NICU Start: 11-20-2023 End: 11-20-2023 Encounter Alfonzo Guerra MD Work Phone: [address] NICU Start: 11-19-2023 End: 11-19-2023 Encounter Alfonzo Guerra MD Work Phone: [address] NICU Start: 11-17-2023 End: 11-17-2023 Encounter Alfonzo Guerra MD Work Phone: [address] NICU Start: 11-13-2023 End: 11-13-2023 Encounter Alfonzo Guerra MD Work Phone: [address] NICU Start: 11-12-2023 End: 11-12-2023 Encounter Alfonzo Guerra MD [address] NICU Start: 11-10-2023 End: 11-10-2023 Encounter Alfonzo Guerra MD Work Phone: [address] NICU Start: 11-09-2023 End: 11-09-2023 Encounter Alfonzo Guerra MD Work Phone: [address] NICU Start: 11-07-2023 End: 11-07-2023 Encounter Alfonzo Guerra MD Work Phone: [address] NICU Start: 11-06-2023 End: 11-06-2023 Encounter Alfonzo Guerra MD Work Phone: [address] NICU Start: 11-05-2023 End: 11-05-2023 Encounter Alfonzo Guerra MD Work Phone: [facility] 3E NICU Start: 11-04-2023 End: 11-04-2023 Encounter Alfonzo Guerra MD Work Phone: [facility] 3E NICU Start: 11-03-2023 End: 11-03-2023 Encounter Alfonzo Guerra MD Work Phone: [facility] 3E NICU Start: 11-01-2023 End: 11-01-2023 Encounter Alfonzo Guerra MD Work Phone: [facility] 3E NICU Start: 10-31-2023 End: 10-31-2023 Encounter Alfonzo Guerra MD Work Phone: [facility] 3E NICU Start: 10-29-2023 End: 10-29-2023 Encounter Alfonzo Guerra MD Work Phone: [facility] 3W NICU Start: 10-27-2023 End: 10-27-2023 Encounter Alfonzo Guerra MD Work Phone: [facility] 3W NICU Start: 10-26-2023 End: 10-26-2023 ambulatory CONTRERAS MOCK Not Available Start: 10-22-2023 End: 10-22-2023 Encounter Alfonzo Guerra MD Work Phone: [facility] 3W NICU Start: 10-20-2023 End: 10-20-2023 Encounter Alfonzo Guerra MD Work Phone: [facility] 3W NICU Start: 10-20-2023 End: 10-20-2023 Emergency department patient visit JAK ANAYA [facility] Start: 10-16-2023 Encounter Alfonzo hernandez MD Work Phone: [facility] 3W NICU Start: 10-15-2023 End: 10-15-2023 ambulatory OMA NOVAK [facility] Start: 10-15-2023 End: 10-15-2023 Office outpatient visit 10 minutes Oma Novak MANAGER FEDERAL-PATTERN CLERK Work Phone: [facility] Comment on above: Pre-eclampsia superi mposed on chronic hypertension, delivered (Primary Dx); History of Start: 10-14-2023 Encounter Alfonzo hernandez MD Work Phone: [facility] - [facility] 3 NICU Start: 10-12-2023 End: 10-12-2023 Evaluation and management of inpatient ELLIOT MACK [facility] Start: 10-08-2023 End: 10-09-2023 Evaluation and management of inpatient JAMAR ALY [facility] Start: 10-05-2023 End: 10-06-2023 Evaluation and management of inpatient BRIAN TREJO [facility] Start: 09-28-2023 End: 09-29-2023 Evaluation and management of inpatient MARGARITA REYES [facility] Start: 09-28-2023 End: 09-28-2023 ambulatory CAROLINE TREJO [facility] Start: 09-27-2023 End: 10-12-2023 Evaluation and management of inpatient JAK ANAYA [facility] Start: 2023 End: 2023 ambulatory CONTRERAS MOCK Not Available Start: 08-31-2023 Orders Only Carla Guerra [facility]- [facility] at [facility] Comment on above: IUGR (intrauterine g [...] Work Phone: Maternal- Medicine at [facility] Comment on above: Outgoing Ca ll Start: 08-18-2023 End: 08-18-2023 flow sheet Contreras Medranoo DO Work Phone: [facility] Comment on above: Second trimester pre gnancy; Diabetes mellitus screening; Thyroid disease affecting ([facility]) Start: 08-18-2023 End: 08-18-2023 ambulatory CONTRERAS EMILI Not Available Start: 08-17-2023 Telephone encounter Althea Chin PN [facility] Start: 08-06-2023 End: 08-07-2023 ambulatory ALFONZO GUERRA [facility] Start: 08-05-2023 Documentation procedure Yanelis Garrido MD Work Phone: [facility] Start: 08-05-2023 Telephone encounter Stacy Justin RN [facility] Start: 08-04-2023 Documentation procedure Carla Castillo es [employer] [facility] Start: 08-04-2023 Telephone encounter Leslie reese [facility] Comment on above: Appointment IUGR (intrauterine g rowth restriction) affecting care of mother, second trimester, not applicable or unspecified fetus (Primary Dx); History of delivery, currently ; 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 trimester; Chronic hypertension affecting Start: 08-04-2023 End: 08-05-2023 ambulatory CONTRERAS R EMILI [facility] Start: 08-04-2023 End: 08-04-2023 Office outpatient visit 40 minutes Yanelis Garrido MD Work Phone: [facility] Comment on above: IUGR (intrauterine g [...] 11-24-[address] DOCTOR FROST Facility: Start: 04-18-2017 End: 04-19-2017 Ambulatory MORIAH BOND Facility:[facility] Procedures Date Procedure Procedure Detail Performing [...] section History of C-sectio n Oma Novak MANAGER FEDERAL-PATTERN CLERK Work Phone: Plan of Treatment Date Care Activity Detail Author Start: 06-05-2031 DTaP,Tdap and Td Vaccines (7 - Td or Tdap) DTaP,Tdap and Td Vaccines (7 - Td or Tdap) [facility] Start: 06-05-2031 Urine microalbumin profile DTaP,Tdap,Td Vaccine (7 - Td or Tdap) [facility] Start: 11-24-2025 Screening for malign ant neoplasm of cervix Pap Smear [facility] Start: 10-11-2024 Adult BMI Screening Adult BMI Screen ing [facility] Start: 10-11-2024 Tobacco Screening Tobacco Screening [facility] Start: 08-04-2024 Adult BMI Screening Adult BMI Screen ing [facility] Start: 08-04-2024 Tobacco Screening Tobacco Screening [facility] Start: 08-04-2024 End: 08-04-2024 US MFM [...] EST Office Visit [facility] [address] [place] [id number] Olga Escobar PA [address] [place], [place] [id number] Arrived [facility] Comment on above: Arrived Start: 06-27-2024 End: 06-27-2024 Patient encounter procedure 06/27/2024 1:30 PM EST Office Visit [facility] [address] [place] [id number] Olga Escobar PA [address] [place], [place] [id number] [facility] Start: 05-30-2024 End: 05-30-2024 Patient encounter procedure 05/30/2024 1:00 PM EST Office Visit [facility] [address] [place] [phone] Contreras Mock DO [address] [place], [place] [id number] [facility] Start: 05-03-2024 End: 05-03-2024 Patient encounter procedure [facility] Comment on above: Arrived Start: 03-13-2024 Covid-19 Vaccine ( season) Covid-19 Vaccine ( season) [facility] Start: 03-13-2024 Influenza vaccination [facility] Start: 03-08-2024 End: 03-08-2024 Patient encounter procedure 03/08/2024 1:00 PM EDT Office Visit [facility] [address] [place] [address] Contreras Mock, DO [address] [place] [address] Arrived [facility] Comment on above: Arrived Start: 10-15-2023 End: 10-15-2023 Telemedicine consultation with patient 10/15/2023 9:00 AM EDT Telemedicine [facility] [address] [place] [phone] Oma Novak, MANAGER FEDERAL-PATTERN CLERK [address] [place] [phone] [facility] Start: 09-15-2023 End: 09-15-2023 Patient encounter procedure 09/15/2023 10:20 AM EST Routine [facility] [address] [place] [phone] Contreras Mock, DO [address] [place] [address] [facility] Start: 08-18-2023 End: 08-18-2024 CBC panel - Blood by Automated count CBC Lab Routine Diabetes mellitus screening Expected: 08/18/2023 (Approximate), Expires: 08/18/2024 [facility] Work Phone: Comment on above: Expected: 08/18/2023 (Approximate), Expires: 08/18/2024 Start: 08-18-2023 End: 08-18-2024 Measurement of glucose 1 hour after glucose challenge for glucose tolerance test Glucose tolerance, 1 hour Lab Routine Diabetes mellitus screening Expected: 08/18/2023 (Approximate), Expires: 08/18/2024 [facility] Comment on above: Expected: 08/18/2023 (Approximate), Expires: 08/18/2024 Start: 08-17-2023 End: 08-17-2023 Patient encounter procedure [facility] Start: 08-05-2023 End: 08-05-2024 Unlisted Lab Test Unlisted Lab Test Lab Routine IUGR (intrauterine growth restriction) affecting care of mother, second trimester, not applicable or unspecified fetus Maternal care for other known or suspected poor growth, unspecified trimester, not applicable or unspecified Expected: 08/05/2023 (Approximate), Expires: 08/05/2024 [facility] Work Phone: Comment on above: Expected: 08/05/2023 (Approximate), Expires: 08/05/2024 Start: 03-13-2023 COVID-19 Vaccine () COVID-19 Vaccine () [facility] Start: 03-13-2023 Influenza vaccination [facility] Start: 2017 Screening for malign ant neoplasm of cervix [facility] Start: 2014 Adult BMI Follow Up Plan Adult BMI Follow Up Plan [facility] Start: 2014 Anxiety Screening Anxiety Screening [facility] Start: 2014 Depression Screening [facility] Start: 2014 Hepatitis C screening Hepatitis C Sc [facility] Start: 2014 HIV screening HIV Screening [facility] Start: 2008 Depression Screening Depression Scre [facility] End: 08-03-2024 Beta-2 glycoprotein antibodies Beta-2 glycoprotein antibodies Lab Routine IUGR (intrauterine growth restriction) affecting care of mother, second trimester, not applicable or unspecified fetus 1 Occurrences starting 08/04/2023 until 08/03/2024 [facility] Work Phone: Comment on above: 1 Occurrences starti ng 08/04/2023 until 08/03/2024 Comprehensive metabo lic 2000 panel - Serum or Plasma [facility] Comprehensive metabo lic 2000 panel - Serum or Plasma [facility] Cytology Cervical or vaginal smear or scraping study Pap Smear Pathology and Cytology Routine Well woman exam with routine gynecological exam Ordered: 05/03/2024 [facility] Work Phone: Comment on above: Ordered: 05/03/2024 Thyroid gland [facility] Thyroid gland [facility] Immunizations Immunization Date Immunization Notes Care Provider Pete olson 06-10-2022 influenza virus vaccine, unspecified formulation [facility] 06-05-2021 influenza, injectabl e, quadrivalent, preservative free Leslie [facility] 06-05-2021 tetanus toxoid, reduced diphtheria toxoid, and acellular pertussis vaccine, adsorbed [facility] 06-05-2021 influenza virus vaccine, unspecified formulation Contreras Mock DO Work Phone: [facility] Payers Date Payer Category Payer [employer] [id number] [id number] 2022 Unknown [id number] 2020 Unknown [id number] 2020 Unknown [id number] 1996 Unknown [id number] 2.16.84 0.1.104859.3.579.2.593 1996 Unknown [id number] 2.16. 840.1.318316.3.579.2.175 1996 Unknown [id number] 2.16.8 40.1.738939.3.579.2.1286 1996 Unknown [id number] 2.16.8 40.1.668002.3.579.2.1286 1996 Unknown [id number] 2.16.8 40.1.951377.3.579.2.1286 1996 Unknown [id number] 2.16.8 40.1.188904.3.579.2.1286 1996 Unknown [id number] 2.16.8 40.1.658327.3.579.2.1286 1996 Unknown [id number] 2.16.8 40.1.823347.3.579.2.1286 1996 Unknown [id number] 2.16.8 40.1.946236.3.579.2.1285 1996 Unknown [id number] 2.16.8 40.1.614148.3.579.2.1285 1996 Unknown [id number] 2.16.8 40.1.937821.3.579.2.1285 1996 Unknown [id number] 2.16.8 40.1.045692.3.579.2.1285 1996 Unknown [id number] 2.16.8 40.1.773818.3.579.2.1285 1996 Unknown [id number] 2.16.8 40.1.123913.3.579.2.1285 1996 Unknown [id number] 2.16.84 0.1.763189.3.579.2.1258 1996 Unknown [id number] 2.16.84 0.1.460922.3.579.2.1258 1996 Unknown [id number] 2.16.84 0.1.107211.3.579.2.1258 1996 Unknown [id number] 2.16.84 0.1.573736.3.579.2.1258 1996 Unknown [id number] 2.16.84 0.1.518857.3.579.2.1258 1996 Unknown [id number] 2.16.840 .1.416380.3.579.2.1258 1996 Unknown [id number] 2.16.84 0.1.414671.3.579.2.1258 1996 Unknown [id number] 2.16.84 0.1.147742.3.579.2.1258 1996 Unknown [id number] 2.16.84 0.1.329483.3.579.2.1258 1996 Unknown [id number] 2.16.8 40.1.725362.3.579.2.718 1996 Unknown [id number] 2.16.8 40.1.918536.3.579.2.8 1996 Unknown [id number] 2.16.8 40.1.743470.3.579.2.718 1996 Unknown [id number] 2.16.8 40.1.954859.3.579.2.8 1996 Unknown [id number] 2.16.8 40.1.894023.3.579.2.718 1996 Unknown [id number] 2.16.8 40.1.046429.3.579.2.8 1996 Unknown [id number] 2.16.8 40.1.648920.3.579.2.8 1996 Unknown [id number] 2.16.8 40.1.070552.3.579.2.8 1996 Unknown [id number] 2.16.8 40.1.368896.3.579.2.718 1959 Unknown [id number] Unknown [id number] Social History Date Type Detail Facility Start: 12-19-2022 End: 10-03-2024 Tobacco smoking status KYIS Never smoked tobacco [facility] Start: 08-18-2023 End: 10-12-2023 Alcohol intake Ex-drinker (finding) [facility] Start: 08-23-2020 End: 12-19-2022 History of Social function [facility] Start: 08-23-2020 End: 12-19-2022 Tobacco use panel [facility] Start: 12-19-2022 Alcohol Comment occasional [facility] Start: 03-26-2023 [facility] Start: 1995 Sex Assigned At Female N [facility] Start: 04-22-2021 Gender identity Identifies as female gender (finding) [facility] Start: 04-22-2021 Sexual orientation Heterosexual (fin ding) [facility] Tobacco smoking status KYIS Tobacco smoking consumption unknown [facility] Adult Depression Screening Assessment 0 [facility] Start: 05-25-2023 Tobacco use and exposure Smokeless tobacco non-user [facility] Start: 10-03-2024 End: 12-21-2024 Sex Female (finding) [facility] NEGATED: Highlighted row [facility] Goals Date Patient Goal Desired Activity /State Personal health goal Clinical Notes 08-04-2023 to 10-03-2024 Note Date & Type Note Facility 10-03-2024 Evaluation note Diagnosis Onset Date Resolution Fatigue acute October 03 8:52am Hypertension acute October 03, 2024 8:52am Hypothyroidism acute September 8:52am Obesity, morbid, BMI 40.0-49.9 acute October 03, 2024 8:52am Thyroid nodule acute September 8:52am [facility] Work Phone: 1(710) 939-305403-24-2025 Evaluation note* Diagnosis Onset Date Resolution Status Admit Date Fatigue acute October 03 8:52am Hypertension acute October 03, 2024 8:52am Hypothyroidism acute September 8:52am Obesity, morbid, BMI 40.0-49.9 acute October 03, 2024 8:52am Thyroid nodule acute September 8:52am Hypertension acute November 04, 2024 8:54am Hypothyroidism acute October 8:54am Obesity, morbid, BMI 40.0-49.9 acute November 04, 2024 8:54am Bronchitis acute December 21 11:26am [facility] Work Phone: 1(723) 440-996701-24-2025 History of Present illness Narrative* Olivia Tuttle, PhD - 08/05/2024 10:46 AM EST Sisi Mora [id number] August 05, 2024 [facility] Bariatric and Metabolic [facility] M61 Psychology Orientation/ Welcome Group CPT: [...] Patients were encouraged to seek or intensify mentalhealth treatment if needed, and provided with resources to find mental health care. Lastly, brieflyreviewed benefits of food diaries and encouraged patients to begin identifying barriers to weight ma nagement by tracking intake. Orders for referrals and toxicology screens were placed if requested by the patient. Following the session, patients were provided with a copy of the presentation slides,a list of recommended readings including a link to the BMI manual, and a mental health documentation form to give to mental health providers, if applicable. Orders placed by patient request: NONE Plan: Patient to be scheduled for an individual psychology consultation visit. Olivia Tuttle, Ph.D. Psychologist documented [facility] History of Present illness Narrative* HUMBERTO Lovell - 06/29/2024 3:00 PM EST Reason for Appointment: Patient ID: Sisi Mora [...] Diagnosis Date Noted Anxiety 02/12/2023 Bronchial asthma ([facility]) 02/12/2023 Depression ([facility]) 02/12/2023 Essential hypertension ([facility]) 02/12/2023 GERD (gastroesophageal reflux disease) 02/12/2023 Insomnia 02/12/2023 Maternal care for other known or suspected poor growth, unspecified trimester, not applicableor unspecified 05/28/2021 Migraine headache ([facility]) 02/12/2023 Morbid obesity ([facility]) 02/12/2023 PCOS (polycystic ovarian syndrome) 02/12/2023 Seasonal allergic rhinitis 02/12/2023 Resolved Ambulatory Problems Diagnosis Date Noted No Resolved Ambulatory Problems Past Medical History: Diagnosis Date History of Hyperthyroidism ([facility]) Hypothyroidism ([facility]) Insulin resistance Morbid obesity with body mass index (BMI) of 40.0 to 49.9 ([facility]) Pap smear for cervical cancer screening 11/24/2022 HISTORY PAST MEDICAL HISTORY SOCIAL HISTORY Past Medical History: Diagnosis Date History of Hyperthyroidism ([facility]) Hypothyroidism ([facility]) Insulin resistance Morbid obesity with body mass index (BMI) of 40.0 to 49.9 ([facility]) Body mass index (BMI) of 40.0 [...] SECTION, LOW TRANSVERSE MOLE REMOVAL 12/2011 benign MD KNEE SCOPE,CLEAN/DRAIN Left 09/2014 TONSILLECTOMY TUBAL LIGATION [...] behalf of: HUMBERTO Lovell documented in this encounterNortheast Regional Medical [id number] History of Present illness Narrative* Irene Mo, VAMSHI - 05/30/2024 1:00 PM EST Reason for Appointment: Patient ID: Sisi Mora [...] Diagnosis Date Noted Anxiety 02/12/2023 Bronchial asthma ([facility]) 02/12/2023 Depression ([facility]) 02/12/2023 Essential hypertension ([facility]) 02/12/2023 GERD (gastroesophageal reflux disease) 02/12/2023 Insomnia 02/12/2023 Maternal care for other known or suspected poor growth, unspecified trimester, not applicableor unspecified 05/28/2021 Migraine headache ([facility]) 02/12/2023 Morbid obesity ([facility]) 02/12/2023 PCOS (polycystic ovarian syndrome) 02/12/2023 Seasonal allergic rhinitis 02/12/2023 Resolved Ambulatory Problems Diagnosis Date Noted No Resolved Ambulatory Problems Past Medical History: Diagnosis Date History of Hyperthyroidism ([facility]) Hypothyroidism ([facility]) Insulin resistance Morbid obesity with body mass index (BMI) of 40.0 to 49.9 ([facility]) Pap smear for cervical cancer screening 11/24/2022 HISTORY PAST MEDICAL HISTORY SOCIAL HISTORY Past Medical History: Diagnosis Date History of Hyperthyroidism ([facility]) Hypothyroidism ([facility]) Insulin resistance Morbid obesity with body mass index (BMI) of 40.0 to 49.9 ([facility]) Body mass index (BMI) of 40.0 to [...] SECTION, LOW TRANSVERSE MOLE REMOVAL 12/2011 benign MD KNEE SCOPE,CLEAN/DRAIN Left 09/2014 TONSILLECTOMY TUBAL LIGATION [...] nursing note reviewed. Exam conducted with a slater apprentice present. Vitals: Estimated body mass index is [...] of: Contreras Mock DO documented in this encounterNortheast Regional Medical [id number] History of Present illness Narrative* Virginia Andrea LPN - 05/03/2024 1:40 PM EDT Reason for Appointment: Patient ID: Sisi Mora [...] Diagnosis Date Noted Anxiety 02/12/2023 Bronchial asthma ([facility]) 02/12/2023 Depression ([facility]) 02/12/2023 Essential hypertension ([facility]) 02/12/2023 GERD (gastroesophageal reflux disease) 02/12/2023 Insomnia 02/12/2023 Maternal care for other known or suspected poor growth, unspecified trimester, not applicableor unspecified 05/28/2021 Migraine headache (CMS/HCC) 02/12/2023 Morbid obesity ([facility]) 02/12/2023 PCOS (polycystic ovarian syndrome) 02/12/2023 Seasonal allergic rhinitis 02/12/2023 Resolved Ambulatory Problems Diagnosis Date Noted No Resolved Ambulatory Problems Past Medical History: Diagnosis Date History of Hyperthyroidism (CMS/HCC) Hypothyroidism ([facility]) Insulin resistance Morbid obesity with body mass index (BMI) of 40.0 to 49.9 ([facility]) Pap smear for cervical cancer screening 11/24/2022 HISTORY PAST MEDICAL HISTORY SOCIAL HISTORY Past Medical History: Diagnosis Date History of Hyperthyroidism (CMS/HCC) Hypothyroidism (CMS/HCC) Insulin resistance Morbid obesity with body mass index (BMI) of 40.0 to 49.9 ([facility]) Body mass index (BMI) of 40.0 [...] SECTION, LOW TRANSVERSE MOLE REMOVAL 12/2011 benign MD KNEE SCOPE,CLEAN/DRAIN Left 09/2014 TONSILLECTOMY TUBAL LIGATION [...] nursing note reviewed. Exam conducted with a slater apprentice present. Vitals: Estimated body mass index is 44.5 kg/m as calculated from the following: Height as of 01/20/23: 5' 7 . Weight as of 03/08/24: 284 lb 1.9 oz. BP: No LMP recorded. ASSESSMENT & PLAN ICD-10-CM 1. Well woman exam with routine gynecological exam Z01.419 Pap Smear 2. depression (CMS/HCC) F53.0 3. Follow-up exam Z09 4. 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) 02/12/2023 Depression ([facility]) 02/12/2023 Essential hypertension ([facility]) 02/12/2023 GERD (gastroesophageal reflux disease) 02/12/2023 Insomnia 02/12/2023 Maternal care for other known or suspected poor growth, unspecified trimester, not applicableor unspecified 05/28/2021 Migraine headache ([facility]) 02/12/2023 Morbid obesity (CMS/HCC) 02/12/2023 PCOS (polycystic ovarian syndrome) 02/12/2023 Seasonal allergic rhinitis 02/12/2023 Resolved Ambulatory Problems Diagnosis Date Noted No Resolved Ambulatory Problems Past Medical History: Diagnosis Date History of Hyperthyroidism (CMS/HCC) Hypothyroidism (CMS/HCC) Insulin resistance Morbid obesity with body mass index (BMI) of 40.0 to 49.9 ([facility]) Pap smear for cervical cancer screening 11/24/2022 HISTORY PAST MEDICAL HISTORY SOCIAL HISTORY Past Medical History: Diagnosis Date History of Hyperthyroidism (CMS/HCC) Hypothyroidism (CMS/HCC) Insulin resistance Morbid obesity with body mass index (BMI) of 40.0 to 49.9 ([facility]) Body mass index (BMI) of 40.0 [...] SECTION, LOW TRANSVERSE MOLE REMOVAL 12/2011 benign MD KNEE SCOPE,CLEAN/DRAIN Left 09/2014 TONSILLECTOMY TUBAL LIGATION [...] nursing note reviewed. Exam conducted with a slater apprentice present. Vitals: Estimated body mass index is [...] the following just effexor. Pt to contact it service manager about bp meds. Pt to return for annual- and follow up with medication. Pt denies suicidal and homicidal ideations. Documented by Virginia Andrea LPN on behalf of: Contreras Mock DO documented in this encounterNortheast Regional Medical [id number] Miscellaneous Notes* Note - Susie Vasquez RN - 12/21/2023 1:45 PM EDT This note was copied from a baby's chart. Met with mother at infants bedside. States pumping is going well and supply is decreased slightly. Hoping that when she goes home she can have a better routine. Encouraged pumping every 2-3 hours [id number] minutes at suction level that is comfortable. [...] and how much milk is actually removed. Discharge info given with outpatient info highlighted. Questions answered, encouragement given. documented in this encounterM[facility]06[facility] Obstetrics Note* Note - Susie Vasquez RN - 12/21/2023 1:45 PM EDT This note was copied from a baby's chart. Met with mother at infants bedside. States pumping is going well and supply is decreased slightly. Hoping that when she goes home she can have a better routine. Encouraged pumping every 2-3 hours [id number] minutes at suction level that is comfortable. [...] and how much milk is actually removed. Discharge info given with outpatient info highlighted. Questions answered, encouragement given. [facility]06-09-[facility] Miscellaneous Notes* Note - Xenia Lomeli RN - 12/20/2023 7:23 PM EDT This note was copied from a baby's chart. Met with mom at 's bedside. States pumping is going well with stable supply and no pain or breakdown noted. No immediate questions or concerns, encouraged to call out for any other assistance. documented in this encounterMarietta [facility] Hospital06-09-2024 Obstetrics Note* Note - Xenia Lomeli RN - 12/20/2023 7:23 PM EDT This note was copied from a baby's chart. Met with mom at infant's bedside. States pumping is going well with stable supply and no pain or breakdown noted. No immediate questions or concerns, encouraged to call out for any other assistance. [facility]06-07-[facility] Miscellaneous Notes* Note - Xenia Lomeli RN - 12/18/2023 11:42 AM EDT This note was copied from a baby's chart. Met with mom at 's bedside. States pumping continues to go well with stable supply and no complaints of pain or breakdown. No immediate questions or concerns, encouraged to call out for any other assistance. documented in this encounterMari[facility]06-07-2024 Obstetrics Note* Note - Xenia Lomeli RN - 12/18/2023 11:42 AM EDT This note was copied from a baby's chart. Met with mom at 's bedside. States pumping continues to go well with stable supply and no complaints of pain or breakdown. No immediate questions or concerns, encouraged to call out for any other assistance. [facility]06-06-[facility] Miscellaneous Notes* Note - Susie Vasquez RN - 12/17/2023 10:45 AM EDT This note was copied from a baby's chart. Met with mother at infants bedside. States pumping is going well and supply is stable. No complaints of pain or discomfort. No questions or concerns at this time. Support given. documented in this encounterMarietta [facility] Hospital06-06-2024 Obstetrics Note* Note - Susie Vasquez RN - 12/17/2023 10:45 AM EDT This note was copied from a baby's chart. Met with mother at infants bedside. States pumping is going well and supply is stable. No complaints of pain or discomfort. No questions or concerns at this time. Support given. [facility]06-03-[facility]24 NoteEntered by Sindy Cormier on December 14, 2023 09:59:29 EDT From: Sindy Cormier To: [place] [id number] Sent: 12/14/2023 09:59:29 EDT Subject: Medication Management Submitted: Order:omeprazole (omeprazole 40 mg oral delayed release capsule) 1 cap(s) Oral Daily Qty: 30 cap(s) Days Supply: 30 Refills: 5 Substitutions Allowed Route To Pharmacy - [place] [id number] Signed by Sindy Cormier 12/14/2023 09:59:00 EDT Submitted: Complete:omeprazole (omeprazole 40 mg oral delayed release capsule) Signed by Sindy Cormier 12/14/2023 09:59:00 EDT Not Approved: New Rx to follow omeprazole (Omeprazole 40 MG Oral Capsule Delayed Release) Take 1 capsule by mouth once daily Qty: 30 cap(s) Days Supply: 30 Refills: 0 Substitutions Allowed Route To Pharmacy - [place] [id number] Signed by Sindy Cormier From: [place] [id number] To: Azael LOPEZ, Alfonzo Sumner MD Sent: December 13, 2023 5:45:21 AM CDT Subject: Medication Management Due: December 14, 2023 12:32:47 AM CDT On Hold Pending Signature Dispensed Drug: omeprazole (omeprazole 40 mg oral delayed release capsule), Take 1 capsule by mouthonce daily Quantity: 30 cap(s) Days Supply: 30 Refills: 0 Substitutions [facility]owed [id number] Miscellaneous Notes* Note - Marely Rabago RN - 12/13/2023 7:45 PM EDT This note was copied from a baby's chart. Met with mother at bedside. States diana supply is stable and she has no needs at this time. Support given. documented in this [facility]06-02-2024 Obstetrics Note* Note - Marely Rabago RN - 12/13/2023 7:45 PM EDT This note was copied from a baby's chart. Met with mother at bedside. States diana supply is stable and she has no needs at this time. Support given. [facility]05-31-20[facility] Miscellaneous Notes* Note - Xenia Lomeli RN - 12/11/2023 11:27 AM EDT This note was copied from a baby's chart. Met with mom at infant's bedside. States that pumping is going well with stable supply and denies any pain or breakdown. No immediate questions or concerns, encouraged to call out for any other assistance. documented in this encounterMarietta [facility] Hospital05-31-2024 Obstetrics Note* Note - Xenia Lomeli RN - 12/11/2023 11:27 AM EDT This note was copied from a baby's chart. Met with mom at infant's bedside. States that pumping is going well with stable supply and denies any pain or breakdown. No immediate questions or concerns, encouraged to call out for any other assistance. [facility]05-30-20[facility] Miscellaneous Notes* Note - Xenia Lomeli RN - 12/10/2023 12:25 PM EDT This note was copied from a baby's chart. Met with mom at infant's bedside. States that she had seen a decrease in supply, but it has gotten better with some power pumping. Denies pain or breakdown. No immediate questions or concerns, encouraged to call out for any other assistance. Infant currently on a thickened formula for reflux, mom aware of proper storage guidelines. Breast Milk Collection and Storage Guidelines Remember to collect and store breast milk in clean containers specifically made for breast milk storage. Room temperature: up to 4 hours Cooler: up to 24 hours Refrigerator: up to 2 days Freezer: up to 6 months Deep Freezer: up to 12 months Breast milk thawed in refrigerator: If you thaw your frozen breast milk in the refrigerator, you can keep it there for up to 24 hours, or at room temperature for up to 2 hours. Once frozen breast milk is thawed, do not refreeze it. Safe Handling for Pumped Breast Milk If you see that your stored breast milk has and there s cream at the top, don t worry - it s normal for this to happen! Just gently swirl warmed bottles to mix the milk layers. You can add small amounts of cooled breast milk to the same refrigerated container during the day. Avoid adding warm milk to already cooled milk. Thaw frozen breast milk overnight in the refrigerator, or hold the bottle under warm running water. Don t use the microwave to heat your breast milk - it can damage the composition of the milk and cause hot spots that could burn your little one s mouth. documented in this encounterMarietta [facility]05-30-2024 Obstetrics Note* Note - Xenia Lomeli RN - 12/10/2023 12:25 PM EDT This note was copied from a baby's chart. Met with mom at infant's bedside. States that she had seen a decrease in supply, but it has gotten better with some power pumping. Denies pain or breakdown. No immediate questions or concerns, encouraged to call out for any other assistance. currently on a thickened formula for reflux, mom aware of proper storage guidelines. Breast Milk Collection and Storage Guidelines Remember to collect and store breast milk in clean containers specifically made for breast milk storage. Room temperature: up to 4 hours Cooler: up to 24 hours Refrigerator: up to 2 days Freezer: up to 6 months Deep Freezer: up to 12 months Breast milk thawed in refrigerator: If you thaw your frozen breast milk in the refrigerator, you can keep it there for up to 24 hours, or at room temperature for up to 2 hours. Once frozen breast milk is thawed, do not refreeze it. Safe Handling for Pumped Breast Milk If you see that your stored breast milk has and there s cream at the top, don t worry - it s normal for this to happen! Just gently swirl warmed bottles to mix the milk layers. You can add small amounts of cooled breast milk to the same refrigerated container during the day. Avoid adding warm milk to already cooled milk. Thaw frozen breast milk overnight in the refrigerator, or hold the bottle under warm running water. Don t use the microwave to heat your breast milk - it can damage the composition of the milk and cause hot spots that could burn your little one s mouth. [facility]05-28-2024 Miscellaneous Notes* Note - Susie Vasquez RN - 12/08/2023 12:30 PM EDT This note was copied from a baby's chart. Met with mother at infants bedside. No questions or concerns at this time. Encouragement given. documented in this encounterMarietta [facility] Hospital05-28-2024 Obstetrics Note* Note - Susie Vasquez RN - 12/08/2023 12:30 PM EDT This note was copied from a baby's chart. Met with mother at infants bedside. No questions or concerns at this time. Encouragement given. [facility]05-27-2024 Miscellaneous Notes* Note - Karli Patton RN - 12/07/2023 9:20 AM EDT This note was copied from a baby's chart. Met with mom at 's bedside. States pumping is going well. Getting 2 ounces every 3-4 hours, except at night. Mom admits she has not been as strict about maintaining pumping at night. LC recommenced mom try to add pumping every 3-4 hours at night to increase supply. Mom agreeable with this plan and will start tonight. Questions answered and support given. Encouraged mom to reach out for any further needs or assistance. documented in this encounterMarietta [facility] Hospital05-27-2024 Obstetrics Note* Note - Karli Patton RN - 12/07/2023 9:20 AM EDT This note was copied from a baby's chart. Met with mom at 's bedside. States pumping is going well. Getting 2 ounces every 3-4 hours, except at night. Mom admits she has not been as strict about maintaining pumping at night. LC recommenced mom try to add pumping every 3-4 hours at night to increase supply. Mom agreeable with this plan and will start tonight. Questions answered and support given. Encouraged mom to reach out for any further needs or assistance. [facility]05-24-2024 Miscellaneous Notes* Note - Xenia Lomeli RN - 12/04/2023 10:17 AM EDT This note was copied from a baby's chart. Met with mom at 's bedside. States that pumping continues to go well with stable supply and denies pain or breakdown. No immediate questions or concerns, encouraged to call out for any other assistance. documented in this encounterMarietta [facility] Hospital05-24-2024 Obstetrics Note* Note - Xenia Lomeli RN - 12/04/2023 10:17 AM EDT This note was copied from a baby's chart. Met with mom at 's bedside. States that pumping continues to go well with stable supply and denies pain or breakdown. No immediate questions or concerns, encouraged to call out for any other assistance. [facility]05-23-2024 Miscellaneous Notes* Note - Xenia Lomeli RN - 12/03/2023 1:42 PM EDT This note was copied from a baby's chart. Met with mom at 's bedside. States that pumping is going well with stable supply and denies pain or breakdown. No immediate questions or concerns, encouraged to call out for any other lactationassistance. documented in this encounterMarietta [facility]05-23-2024 Obstetrics Note* Note - Xenia Lomeli RN - 12/03/2023 1:42 PM EDT This note was copied from a baby's chart. Met with mom at infant's bedside. States that pumping is going well with stable supply and denies pain or breakdown. No immediate questions or concerns, encouraged to call out for any other lactationassistance. [facility]05-21-2024 Miscellaneous Notes* Note - Susie Vasquez RN - 12/01/2023 11:45 AM EDT This note was copied from a baby's chart. Met with mother at infants bedside. States she has been pumping but has spaced out pumping sessionsslightly, support given. Supply remains relatively stable. Discussed different pumping schedules and different types of pumps that may help. QUestions answered, encouragement given. documented in this encounterMarietta [facility] Hospital05-21-2024 Obstetrics Note* Note - Susie Vasquez RN - 12/01/2023 11:45 AM EDT This note was copied from a baby's chart. Met with mother at infants bedside. States she has been pumping but has spaced out pumping sessionsslightly, support given. Supply remains relatively stable. Discussed different pumping schedules and different types of pumps that may help. QUestions answered, encouragement given. [facility]05-17-2024 Obstetrics Note* Note - Anjana Howell RN - 11/27/2023 8:50 PM EDT This note was copied from a baby's chart. Met with infants mother at bedside. Reports having a small decrease in supply the past two days. Her is back to work and having some stress form not able to visit as much and having to caringfor toddler. Discussed adding some power pumping back a few times a day to increase supply. No questions at this time. Support given. [facility]05-17-2024 Miscellaneous Notes* Note - Anjana Howell RN - 11/27/2023 8:50 PM EDT This note was copied from a baby's chart. Met with infants mother at bedside. Reports having a small decrease in supply the past two days. Her is back to work and having some stress form not able to visit as much and having to caringfor toddler. Discussed adding some power pumping back a few times a day to increase supply. No questions at this time. Support given. documented in this encounterMarietta [facility] Hospital05-16-2024 Miscellaneous Notes* Note - Xenia Lomeli RN - 11/26/2023 12:35 PM EDT This note was copied from a baby's chart. Met with mom at 's bedside. States pumping is going well with stable supply and denies pain or breakdown. No immediate questions or concerns, encouraged to call out for any other assistance. documented in this encounterMarietta [facility] Hospital05-16-2024 Obstetrics Note* Note - Xenia Lomeli RN - 11/26/2023 12:35 PM EDT This note was copied from a baby's chart. Met with mom at infant's bedside. States pumping is going well with stable supply and denies pain or breakdown. No immediate questions or concerns, encouraged to call out for any other assistance. [facility]05-14-2024 Miscellaneous Notes* Note - Xenia Lomeli RN - 11/24/2023 3:03 PM EDT This note was copied from a baby's chart. Met with mom at 's bedside. States pumping continues to go well with stable supply and no breakdown or pain noted. No immediate questions or concerns, encouraged to call out for any other assistance. [facility]* Note - Xenia Lomeli RN - 11/24/2023 3:03 PM EDT This note was copied from a baby's chart. Met with mom at infant's bedside. States pumping continues to go well with stable supply and no breakdown or pain noted. No immediate questions or concerns, encouraged to call out for any other assistance. [facility]05-10-2024 Miscellaneous Notes* Note - Xenia Lomeli RN - 11/20/2023 1:45 PM EDT This note was copied from a baby's chart. Met with mom at 's bedside. States pumping continues to go well with stable supply and no complaints of breakdown or discomfort. No immediate questions or concerns, encouraged to call out for any other assistance. [facility] in [facility]s [facility]* Note - Xenia Lomeli RN - 11/20/2023 1:45 PM EDT This note was copied from a baby's chart. Met with mom at infant's bedside. States pumping continues to go well with stable supply and no complaints of breakdown or discomfort. No immediate questions or concerns, encouraged to call out for any other assistance. [facility]05-09-2024 Miscellaneous Notes* Note - Xenia Lomeli RN - 11/19/2023 10:06 AM EDT This note was copied from a baby's chart. Met with mom at 's bedside. States pumping continues to go well with stable supply and no complaints of breakdown or pain. No immediate questions or concerns, encouraged to call out for any other assistance. documented in [facility] Ob[facility]s [facility]* Note - Xenia Lomeli RN - 11/19/2023 10:06 AM EDT This note was copied from a baby's chart. Met with mom at infant's bedside. States pumping continues to go well with stable supply and no complaints of breakdown or pain. No immediate questions or concerns, encouraged to call out for any other assistance. [facility]05-07-2024 Miscellaneous Notes* Note - Susie Vasquez RN - 11/17/2023 10:15 AM EDT This note was copied from a baby's chart. Met with mother at infants bedside. States pumping is going well and supply is stable. No complaints of pain or discomfort. No questions or concerns at this time. Encouragement given. documented in this [facility] Ob[facility]s [facility]* Note - Susie Vasquez RN - 11/17/2023 10:15 AM EDT This note was copied from a baby's chart. Met with mother at infants bedside. States pumping is going well and supply is stable. No complaints of pain or discomfort. No questions or concerns at this time. Encouragement given. [facility]05-03-2024 Miscellaneous Notes* Note - Xenia Lomeli RN - 11/13/2023 11:47 AM EDT This note was copied from a baby's chart. Met with mom at 's bedside. States that pumping is going well with adequate supply with no pain or discomfort. No immediate questions or concerns, encouraged to call out for any other lactationassistance. documented in this encounterM[facility] Obstetrics [facility]* Note - Xenia Lomeli RN - 11/13/2023 11:47 AM EDT This note was copied from a baby's chart. Met with mom at infant's bedside. States that pumping is going well with adequate supply with no pain or discomfort. No immediate questions or concerns, encouraged to call out for any other lactationassistance. [facility]05-02-2024 Miscellaneous Notes* Note - Xenia Lomeli RN - 11/12/2023 12:56 PM EDT This note was copied from a baby's chart. Met with mom at 's bedside. States that pumping is going well with stable supply and denies pain or discomfort. No immediate questions or concerns, encouraged to call out for any other assistance. documented in this encounterM[facility] Obstetrics [facility]* Note - Xenia Lomeli RN - 11/12/2023 12:56 PM EDT This note was copied from a baby's chart. Met with mom at infant's bedside. States that pumping is going well with stable supply and denies pain or discomfort. No immediate questions or concerns, encouraged to call out for any other assistance. [facility]04-30-2024 Miscellaneous Notes* Note - Marely Rabago RN - 11/10/2023 7:40 PM EDT This note was copied from a baby's chart. Met with mother at bedside. States supply is stable and no pain is noted with pumping. Questions answered and support given. documented in this encounterM[facility] Obst[facility]s [facility]* Note - Marely Rabago RN - 11/10/2023 7:40 PM EDT This note was copied from a baby's chart. Met with mother at bedside. States supply is stable and no pain is noted with pumping. Questions answered and support given. [facility]04-29-2024 Miscellaneous Notes* Note - Susie Vasquez RN - 11/09/2023 11:00 AM EDT This note was copied from a baby's chart. Met with father at infants bedside. States mother is pumping and supply has increased slightly. Will have mother reach out out for any questions or concerns. Encouraged pumping every 2-3 hours for 15-20 [...] the babys amount of sucking and how muchmilk is actually removed. documented in this encounterM[facility] Obst[facility]s [facility]* Note - Susie Vasquez RN - 11/09/2023 11:00 AM EDT This note was copied from a baby's chart. Met with father at infants bedside. States mother is pumping and supply has increased slightly. Will have mother reach out out for any questions or concerns. Encouraged pumping every 2-3 hours for 15-20 [...] the babys amount of sucking and how muchmilk is actually removed. [facility]04-27-2024 Miscellaneous Notes* Note - Xenia Lomeli RN - 11/07/2023 12:02 PM EDT This note was copied from a baby's chart. Met with mom at infant's bedside. Continues to pump for baby in NICU but does express some concern over decrease in supply over the last 24 hours. She does admit to some added stressors recently. Reassured mom that this can be normal in times of stress or with unexpected changes that will throw offroutine. The most important thing is to continue pumping regularly, at least 8 times a day to maintain and protect supply. She can also continue power pumping as she sees fit to boost supply. No further questions or concerns, encouraged to call out for any other assistance. documented in this encounterM[facility]04[facility] Obstetrics Note* Note - Xenia Lomeli RN - 11/07/2023 12:02 PM EDT This note was copied from a baby's chart. Met with mom at infant's bedside. Continues to pump for baby in NICU but does express some concern over decrease in supply over the last 24 hours. She does admit to some added stressors recently. Reassured mom that this can be normal in times of stress or with unexpected changes that will throw offroutine. The most important thing is to continue pumping regularly, at least 8 times a day to maintain and protect supply. She can also continue power pumping as she sees fit to boost supply. No further questions or concerns, encouraged to call out for any other assistance. [facility] [employer], Mobile [phone] Miscellaneous Notes* Note - Xenia Lomeli RN - 11/06/2023 10:01 AM EDT This note was copied from a baby's chart. Met with mom at infant's bedside. Pumping continues to go well with stable supply and no breakdown or pain. Mom continues to put to breast and has been offering bottles as well. Mom states continues to have a sleepy latch, reassured her this remains normal as builds stamina andto continue offering as able. No further questions or concerns, encouraged to call out for any other assistance. documented in this encounterM[facility]04[facility] Obstetrics [facility]* Note - Xenia Lomeli RN - 11/06/2023 10:01 AM EDT This note was copied from a baby's chart. Met with mom at 's bedside. Pumping continues to go well with stable supply and no breakdown or pain. Mom continues to put to breast and has been offering bottles as well. Mom states continues to have a sleepy latch, reassured her this remains normal as infant builds stamina andto continue offering as able. No further questions or concerns, encouraged to call out for any other assistance. [facility]04-25-2024 Miscellaneous Notes* Note - Xenia Lomeli RN - 11/05/2023 9:43 AM EDT This note was copied from a baby's chart. Met with mom at 's bedside. States that pumping is going well with stable supply and denies breakdown or pain. Mom was able to offer breast multiple times during window, states that was not as vigorous at breast and was sleepy much of the time. She did receive a bottle, which mom said she took well. Discussed the mom the dunne differences between breast and bottle feedingand encouraged to continue offering breast during care time when is showing cues to continues to build stamina. No further questions or concerns, encouraged to call out for any other lactationassistance. documented in this encounterM[facility]04[facility] Obstetrics [facility]* Note - Xenia Lomeli RN - 11/05/2023 9:43 AM EDT This note was copied from a baby's chart. Met with mom at 's bedside. States that pumping is going well with stable supply and denies breakdown or pain. Mom was able to offer breast multiple times during window, states that infant was not as vigorous at breast and was sleepy much of the time. She did receive a bottle, which mom said she took well. Discussed the mom the dunne differences between breast and bottle feedingand encouraged to continue offering breast during care time when infant is showing cues to continues to build stamina. No further questions or concerns, encouraged to call out for any other lactationassistance. [facility]04[facility] Miscellaneous Notes* Note - Anjana Howell RN - 11/04/2023 9:15 PM EDT This note was copied from a baby's chart. Met with mother at babys bedside. States she put baby to breast a few times last 2 days. Baby latched some of attempts for a few sucks. No swallows heard. Thinks baby gives up because milk not flowing. Takes a couple min with pump to start getting milk to flow. Recommend pumping for a few min before latching. Pumping 2-3 ounces every 3 hours. Denies pain. Encouraged skin to skin and call for assist from with latching/positioning and with any questions. Support given and all questions answered. documented in this encounterM[facility]04[facility] Obstetrics [facility]* Note - Anjana Howell RN - 11/04/2023 9:15 PM EDT This note was copied from a baby's chart. Met with mother at babys bedside. States she put baby to breast a few times last 2 days. Baby latched some of attempts for a few sucks. No swallows heard. Thinks baby gives up because milk not flowing. Takes a couple min with pump to start getting milk to flow. Recommend pumping for a few min before latching. Pumping 2-3 ounces every 3 hours. Denies pain. Encouraged skin to skin and call for assist from LC with latching/positioning and with any questions. Support given and all questions answered. [facility]04-23-2024 Miscellaneous Notes* Note - Karli Patton RN - 11/03/2023 2:00 PM EDT This note was copied from a baby's chart. Met with mom at infant's bedside to assist with latching. At arrival mom had in cross cradlehold attempting to latch. Infant attempted to latch on left breast for 10 minutes. No latch or swallows achieved. LC and mom discussed baby's gestational age and feeding cues. Infant Feeding Cues: -hands in mouth -smacking lips -rooting -eyes open LC encouraged mom to continue attempting breast and skin to skin holding. Mom educated on differentpositions to try when breast feeding. Positioning Laid-back position Lie back in a chair, with your body on a 45-degree angle. In this position, your chest is a good place for your baby to move around on his or her tummy. Your baby's whole body is supported. He or shecan use reflexes to move toward your nipple, find the nipple, and start to nurse. This will be the most comfortable position for both of you. You will have a hand free because your body is holding the baby. Football hold Place a pillow at your side next to the breast you re going to use. Lay your baby on the pillow at breast height so that your baby s bottom is lower than his or her head. Hold your baby's head with your fingers behind the ears at the neck. Use your forearm to support the shoulders and spine. Your baby's body should be facing your body so that you can tuck the baby s legs between your arm and body. Your other hand is used to support your breast. If you re nursing twins, you may eventually be able to use this hold to nurse both babies at once. But each baby will need focused individual attention during feedings at first. Cross-cradle hold or opposite hand hold Put a pillow in your lap, and lay your baby across your lap at breast height. Make sure your baby'sbottom is lower than the head on the pillow and that his or her body is facing and touching your body. Support the baby s head and neck with the hand and arm opposite the breast you re using. Hold your baby s head just below the ears, at the nape of the neck. Your other hand will support your breast. Questions answered and support given. Encouraged mom to reach out for any further needs or assistance. documented in this encounterM[facility]04[facility] Obst[facility]s [facility]* Note - Karli Patton RN - 11/03/2023 2:00 PM EDT This note was copied from a baby's chart. Met with mom at infant's bedside to assist with latching. At arrival mom had infant in cross cradlehold attempting to latch. Infant attempted to latch on left breast for 10 minutes. No latch or swallows achieved. LC and mom discussed baby's gestational age and feeding cues. Infant Feeding Cues: -hands in mouth -smacking lips -rooting -eyes open LC encouraged mom to continue attempting breast and skin to skin holding. Mom educated on differentpositions to try when breast feeding. Positioning Laid-back position Lie back in a chair, with your body on a 45-degree angle. In this position, your chest is a good place for your baby to move around on his or her tummy. Your baby's whole body is supported. He or shecan use reflexes to move toward your nipple, find the nipple, and start to nurse. This will be the most comfortable position for both of you. You will have a hand free because your body is holding the baby. Football hold Place a pillow at your side next to the breast you re going to use. Lay your baby on the pillow at breast height so that your baby s bottom is lower than his or her head. Hold your baby's head with your fingers behind the ears at the neck. Use your forearm to support the shoulders and spine. Your baby's body should be facing your body so that you can tuck the baby s legs between your arm and body. Your other hand is used to support your breast. If you re nursing twins, you may eventually be able to use this hold to nurse both babies at once. But each baby will need focused individual attention during feedings at first. Cross-cradle hold or opposite hand hold Put a pillow in your lap, and lay your baby across your lap at breast height. Make sure your baby'sbottom is lower than the head on the pillow and that his or her body is facing and touching your body. Support the baby s head and neck with the hand and arm opposite the breast you re using. Hold your baby s head just below the ears, at the nape of the neck. Your other hand will support your breast. Questions answered and support given. Encouraged mom to reach out for any further needs or assistance. [facility]04-21-[facility] Miscellaneous Notes* Note - Marely Rabago RN - 11/01/2023 8:12 PM EDT This note was copied from a baby's chart. Met with mother at bedside. States pumping is going well and supply is stable. No pain or issues atthis time. Encouraged her to call out for LC with any questions. Support given. documented in this encounterM[facility]04[facility] Obstetrics Note* Note - Marely Rabago RN - 11/01/2023 8:12 PM EDT This note was copied from a baby's chart. Met with mother at bedside. States pumping is going well and supply is stable. No pain or issues atthis time. Encouraged her to call out for LC with any questions. Support given. [facility]04-20-2024 Miscellaneous Notes* Note - Xenia Lomeli RN - 10/31/2023 10:48 AM EDT This note was copied from a baby's chart. Spoke with mom at infant's bedside. States that pumping continues to go well with stable supply anddenies pain or discomfort. She utilizes power pumping as necessary to boost supply when needed. Infant is over 33 weeks and on low respiratory support, discussed with mom scoring for hunger cues and offered 72 hours window. Mom agreeable with plan. Nursing will notify mom when infant has received adequate scoring. No further questions or concerns, encouraged to call out for any other assistance. Step 3: Indications is active, alert and sucking at non-nutritive is stable with care or during [place] care Begins to transfer milk at breast Interventions Mother Monitors hunger cues Monitors time of feeding and tolerance during Coordinates pumping with feedings Continues to pump after each feeding RN/LC Continues to encourage [id number] daily and document Continue to assess milk supply, inquire about pumping or supply problems Initiate when shows cues, this may be 1 or 2 times daily. Try to give bottles when mom is not at bedside. To determine gavage supplementation: assess the amount of milk taken by discussion with mom or; if the actively sucks less than 5 minutes, give a full gavage feeding; for 5-15 minutes give of feeding; for 15 minutes or greater give no supplement documented in this encounterM[facility]04[facility] Obstetrics Note* Note - Xenia Lomeli RN - 10/31/2023 10:48 AM EDT This note was copied from a baby's chart. Spoke with mom at 's bedside. States that pumping continues to go well with stable supply anddenies pain or discomfort. She utilizes power pumping as necessary to boost supply when needed. is over 33 weeks and on low respiratory support, discussed with mom scoring for hunger cues and offered 72 hours window. Mom agreeable with plan. Nursing will notify mom when infant has received adequate scoring. No further questions or concerns, encouraged to call out for any other assistance. Step 3: Indications Infant is active, alert and sucking at non-nutritive Infant is stable with care or during [id number] care Begins to transfer milk at breast Interventions Mother Monitors hunger cues Monitors time of feeding and tolerance during Coordinates pumping with feedings Continues to pump after each feeding RN/LC Continues to encourage [id number] daily and document Continue to assess milk supply, inquire about pumping or supply problems Initiate when shows cues, this may be 1 or 2 times daily. Try to give bottles when mom is not at bedside. To determine gavage supplementation: assess the amount of milk taken by discussion with mom or; if the infant actively sucks less than 5 minutes, give a full gavage feeding; for 5-15 minutes give of feeding; for 15 minutes or greater give no supplement [facility]04-18-2024 Miscellaneous Notes* Note - Xenia Lomeli RN - 10/29/2023 1:05 PM EDT This note was copied from a baby's chart. Met with mom at 's bedside. States that pumping is going well. She has seen another increase in supply and plans to begin another round of power pumping either tonight or in the morning. She does have concerns that sizing has changed for her flanges, advised to reach out with a pump for to come and assess. No further questions or concerns, encouraged to reach out for any other assistance. Flange Fit A flange fits correctly when: your nipple is centered in the tube no parts of your nipple rub against the sides little or no areola is pulled in when the pump is turned on On the other hand, a flange is not fitting properly when: you experience nipple pain during or after the pumping session you notice your nipple is becoming discolored, chapped, or otherwise injured In addition to breast and nipple pain, using the wrong sized pump flange can negatively impact the amount of milk you are able to get out of your breast. A flange that fits too tightly will cause the breast to be constricted in ways that can lead to clogged/blogged milk ducts. (When ducts are clogged, they don t release milk and new milk isn t formed as quickly.) On the other hand, a flange that fits too loosely won t provide adequate suction. This can also lead to milk being left in the breast and lower milk production in the future. Pain and infection can develop from this as well. documented in this encounterM[facility]04[facility] Obstetrics Note* Note - Xenia Lomeli RN - 10/29/2023 1:05 PM EDT This note was copied from a baby's chart. Met with mom at infant's bedside. States that pumping is going well. She has seen another increase in supply and plans to begin another round of power pumping either tonight or in the morning. She does have concerns that sizing has changed for her flanges, advised to reach out with a pump for to come and assess. No further questions or concerns, encouraged to reach out for any other assistance. Flange Fit A flange fits correctly when: your nipple is centered in the tube no parts of your nipple rub against the sides little or no areola is pulled in when the pump is turned on On the other hand, a flange is not fitting properly when: you experience nipple pain during or after the pumping session you notice your nipple is becoming discolored, chapped, or otherwise injured In addition to breast and nipple pain, using the wrong sized pump flange can negatively impact the amount of milk you are able to get out of your breast. A flange that fits too tightly will cause the breast to be constricted in ways that can lead to clogged/blogged milk ducts. (When ducts are clogged, they don t release milk and new milk isn t formed as quickly.) On the other hand, a flange that fits too loosely won t provide adequate suction. This can also lead to milk being left in the breast and lower milk production in the future. Pain and infection can develop from this as well. [facility] [employer], Mobile [phone] Miscellaneous Notes* Note - Xenia Lomeli RN - 10/27/2023 11:37 AM EDT This note was copied from a baby's [...] for any other assistance. documented in this encounterM[facility]04[facility] Obstetrics Note* Note - Xenia Lomeli RN - 10/27/2023 11:37 AM EDT This note was copied from a baby's [...] to call out for any other assistance. [facility]04-11-2024 Miscellaneous Notes* Note - Susie Vasquez RN - 10/22/2023 1:30 PM EDT This note was copied from a baby's chart. Met with mother at infants bedside. States pumping is going well and supply remains stable. To helpboost supply recommend power pumping. Power Pumping Power [...] in milk production. Power pumping in the diaper machine tender hours is very effective, because hormone levels [...] Questions answered, encouragement given. documented in this encounterM[facility]04[facility]-2024 Obstetrics Note* Note - Susie Vasquez RN - 10/22/2023 1:30 PM EDT This note was copied from a baby's chart. Met with mother at infants bedside. States pumping is going well and supply remains stable. To helpboost supply recommend power pumping. Power Pumping Power [...] in milk production. Power pumping in the diaper machine tender hours is very effective, because hormone levels [...] to try cookies. Questions answered, encouragement given. [facility]04-09-2024 Miscellaneous Notes* Note - Susie Vasquez RN - 10/20/2023 1:30 PM EDT This note was copied from a baby's [...] Questions answered, encouragement given. [facility] in [facility] Obstetrics Note* Note - Susie Vasquez RN - 10/20/2023 1:30 PM EDT This note was copied from a baby's [...] use at bedside. Questions answered, encouragement given. [facility]04[facility] Miscellaneous Notes* Note - Xenia Lomeli RN - 10/16/2023 11:28 AM EDT This note was copied from a baby's chart. Met with mother at infant's bedside. States that pumping has been going well, she gets about an ounce each time she pumps and is trying to pump regularly. She denies any pain or discomfort. No immediate questions or concerns, encouraged to call out for any other assistance. documented in this encounterMari[facility]04[facility] Obstetrics Note* Note - Xenia Lomeli RN - 10/16/2023 11:28 AM EDT This note was copied from a baby's chart. Met with mother at infant's bedside. States that pumping has been going well, she gets about an ounce each time she pumps and is trying to pump regularly. She denies any pain or discomfort. No immediate questions or concerns, encouraged to call out for any other assistance. [facility]04-04[facility] Miscellaneous Notes* Note - Kathy Howell RN - 10/15/2023 10:50 AM EDT This note was copied from a baby's chart. Met with mother at 's bedside. States pumping is going well and milk supply is increasing. Encouraged to reach out to with questions or concerns. Support given. Step 1: Infant stable and able to tolerate Gbpu-vj-Kgnn care Interventions Baby No weight or gestational age limitations, following IVH protocol Follow Lybp-rs-Jsdh Care Policy Length should be done as tolerated by the infant. At least once daily, increase as tolerated. Mother Put Obth-nj-Txgm at least once daily, when possible documented in this encounterMari[facility]04-[facility] Obstetrics Note* Note - Kathy Howell RN - 10/15/2023 10:50 AM EDT This note was copied from a baby's chart. Met with mother at 's bedside. States pumping is going well and milk supply is increasing. Encouraged to reach out to with questions or concerns. Support given. Step 1: Infant stable and able to tolerate Cuvb-bh-Gevd care Interventions Baby No weight or gestational age limitations, following IVH protocol Follow Msiu-ou-Iscu Care Policy Length should be done as tolerated by the infant. At least once daily, increase as tolerated. Mother Put Umwk-mb-Rjbt at least once daily, when possible [facility]04-04[facility] History of Present illness Narrative* Oma Novak, MANAGER FEDERAL-PATTERN CLERK - 10/15/2023 9:00 AM EDT Video Visit via Real-time Synchronous Audiovisual Provider Location: [facility] [address] [id number] Patient Location: Other Patient Location Quarry Boss: None Video Visit Consent Statement: I discussed risks, benefits, and alternatives of a real-time synchronous audiovisual consultation with the patient (and any accompanying persons) including the risks that the patient's personal health details and medical records will be discussed over real-time, synchronous, interactive video/audio/telecommunication technology, the visit will not be recorded withoutthe express consent of both the provider and the patient, and that there are some limitations compared to bzym-lc-bvrg evaluations. We elected to proceed. Subjective: Sisi Mora is a 28 y.o. is seen today via televisit. She is 6 days post- from a [facility]/s with TL at 30w1d. Her was complicated [...] as follows: 10/11: 140/92, 135/78 42: 130s/80s 43: 130s/70s General: well appearing, no acute distress. Neuro: Alert and oriented Respirations: even, non labored Assessment and Plan: Chronic Hypertension BP well controlled on current medication Plans to follow up with primary OB, has appointment next week History of FLORINA with SF History of C/S Meeting post op milestones as expected Pre-eclamptic warnings reviewed. Call provider information technology teacher for headache unresolved with tylenol, visualchange, epigastic pain or significant change in swelling in her hands feet or face. Let the office know if BP readings consistently over 140/90 (either number). Call provider information technology teacher for BP greater than 160/110 (either number). Hypotensive warnings reviewed - call if experiencing dizziness, weakness or fainting. Oma Novak APRN-CARLI Bridges 10/15/23 0922 documented in this encounterMarietta [facility]04-03-2024 Miscellaneous Notes* Note - Parul Rizvi RN - 10/14/2023 7:55 PM EDT This note was copied from a baby's chart. Met with mother at infant's bedside. States pumping is going well. She is getting about 1 ounce every 3 hours without any pain or discomfort. Encouraged skin to skin when she is able. No questions orconcerns at this time. Encouraged to reach out with any needs. documented in this encounterMarietta [facility]04-03-2024 Obstetrics Note* Note - Parul Rizvi RN - 10/14/2023 7:55 PM EDT This note was copied from a baby's chart. Met with mother at 's bedside. States pumping is going well. She is getting about 1 ounce every 3 hours without any pain or discomfort. Encouraged skin to skin when she is able. No questions orconcerns at this time. Encouraged to reach out with any needs. [facility] History of Present illness Narrative* Yanelis Garrido MD - 08/31/2023 5:05 PM EST M lab results This patient was diagnosed [...] conditions (Bartter type 2 & cystic fibrosis [id number]) Our genetic counselor reviewed the results with [...] (Dr. Mock). We are available to see thepatient. Additionally, either by telephone, telehealth, or in-person, subsequent full genetic counseling visit could be arranged. We will recommend our office is contacted for rescheduling unless rescheduling already occurred. Otherwise, please let us know if we are needed for additional involvement in this patient's care. Yanelis Garrido MD Professor, [employer] [facility] Maternal Medicine documented in this encounterMarietta [facility] Hospital02-08-2024 History of Present illness Narrative* CRISSY Acevedo - 08/20/2023 3:46 PM ESTSummary: MOB carrier screening results Sisi left me [...] or concerns come up. documented in this encounterMarietta [facility] Hospital02-08-2024 History of Present illness Narrative* CRISSY Acevedo - 08/20/2023 9:04 AM ESTSummary: Carrier Screening Results Called and left VM for Sisi requesting a call back regarding carrier screening results. documented in this encounterMarietta [facility] Hospital02-06-2024 History of Present illness Narrative* Virginia Andrea LPN - 08/18/2023 10:20 AM EST Reason for Appointment: Patient ID: Sisi Mora is a 27 y.o. female who presents for Routine Visit Patient presents today for Return OB appointment. Current Medications: has a current medication list which includes the following prescription(s): b- 12, labetalol, levothyroxine, metoclopramide, omeprazole, and pyridoxine. Medical History: Active Ambulatory Problems Diagnosis Date Noted Anxiety 02/12/2023 Bronchial asthma ([facility]) 02/12/2023 Depression ([facility]) 02/12/2023 Essential hypertension ([facility]) 02/12/2023 GERD (gastroesophageal reflux disease) 02/12/2023 Insomnia 02/12/2023 Maternal care for other known or suspected poor growth, unspecified trimester, not applicableor unspecified 05/28/2021 Migraine headache ([facility]/H[facility]) 02/12/2023 Morbid obesity ([facility]) 02/12/2023 PCOS (polycystic ovarian syndrome) 02/12/2023 Seasonal allergic rhinitis 02/12/2023 Resolved Ambulatory Problems Diagnosis Date Noted No Resolved Ambulatory Problems Past Medical History: Diagnosis Date History of Hyperthyroidism ([facility]) Hypothyroidism ([facility]) Insulin resistance Morbid obesity with body mass index (BMI) of 40.0 to 49.9 ([facility]) Pap smear for cervical cancer screening [...] SECTION, LOW TRANSVERSE MOLE REMOVAL 12/2011 benign MD KNEE SCOPE,CLEAN/DRAIN Left 09/2014 TONSILLECTOMY TUMOR REMOVAL [...] nursing note reviewed. Exam conducted with a slater apprentice present. Vitals: Estimated body mass index is [...] Delivery: 12/17/23. Pt doing well- reviewed recent [facility] appt. Pt to return to [facility] in 2 weeks. Pt to return in 4 weeks for scheduled OB appt. Documented by Virginia Andrea LPN on behalf of: Contreras Emili, DO documented in this encounterNortheast Regional Medical [id number] Miscellaneous Notes* Telephone Encounter - Althea Olson LPN - 08/17/2023 4:04 PM EST Patient returned call states she is being seen somewhere else. documented in this encounterMarietta [facility]02-05-2024 Telephone encounter Note* Telephone Encounter - Althea Olson LPN - 08/17/2023 4:04 PM EST Patient returned call states she is being seen somewhere else. [facility]02[facility] Miscellaneous Notes* Telephone Encounter - Althea Olson LPN - 08/17/2023 3:17 PM EST Please call us back to get rescheduled for your jordan. documented in this encounterMarietta [facility] Hospital02-05-2024 Telephone encounter Note* Telephone Encounter - Althea Olson LPN - 08/17/2023 3:17 PM EST Please call us back to get rescheduled for your jordan. [facility]01-[facility] Miscellaneous Notes* Telephone Encounter - Stacy Justin RN - 08/05/2023 9:59 AM EST Left message for patient that an additional lab has been ordered that needs to be drawn at a [facility] lab only. Call back phone number given if patient has questions. * Telephone Encounter - Stacy Justin RN - 08/05/2023 9:59 AM EST Patient returned call to [facility] and will have additional lab done at a [facility] lab. Patient also hadconcerns regarding future Doppler US being done here at [facility]. Patient will do initial Doppler here and may need to do Craig due to son having surgery in [place]. documented in this encounterMarietta [facility] Hospital01-24-2024 Telephone encounter Note* Telephone Encounter - Stacy Justin RN - 08/05/2023 9:59 AM EST Left message for patient that an additional lab has been ordered that needs to be drawn at a [facility] lab only. Call back phone number given if patient has questions. [facility]01[facility] Telephone encounter Note* Telephone Encounter - Stacy Justin RN - 08/05/2023 9:59 AM EST Patient returned call to [facility] and will have additional lab done at a [facility] lab. Patient also hadconcerns regarding future Doppler US being done here at [facility]. Patient will do initial Doppler here and may need to do Craig due to son having surgery in [place]. [facility]01[facility] History of Present illness Narrative* Yanelis Garrido MD - 08/05/2023 7:30 AM EST Maternal- Medicine Some lab results still pending. Lab note will be placed when final results are available. CMV serology IgM and IgG results available. IgM negative. Not likely evidence of recent infection. However, because testing performed relatively early gestational age, CMV avidity testing will be an additionalnoninvasive way to screen. So, testing negative so far but the patient should undergo CMV avidity testing. Yesterday we told the patient that this might be necessary and is not uncommon in this situation. I will place lab order for CMV avidity testing. I will recommend that the lab is drawn at 1 of the [facility] locations because it seems that result availability and of test and correctly performed test is more likely whenordered through our Internal lab. I will ask our nursing staff to contact the patient and relay instructions. Yaenlis Garrido MD Professor, [facility] Maternal Medicine documented in this encounterMarietta [facility] Hospital01-23-2024 History of Present illness Narrative* Carla Guerra CMA - 08/04/2023 11:34 AM EST Lab drawn for cell-free DNA testing. Patient tolerated well. (Lab came to draw ) documented in this encounterMarietta [facility] Hospital01-23-2024 Miscellaneous Notes* Telephone Encounter - Leslie Souza - 08/04/2023 11:12 AM EST Patient refused to schedule umb doppler in 3 weeks. Son is having surgery and she will call at a later time to schedule. documented in this [facility]01-23-2024 Telephone encounter Note* Telephone Encounter - Leslie Souza - 08/04/2023 11:12 AM EST Patient refused to schedule umb doppler in 3 weeks. Son is having surgery and she will call at a later time to schedule. [facility]01[facility] History of Present illness Narrative* Carla Guerra CMA - 08/04/2023 9:30 AM EST Headache/epigastric pain/blurry vision/swelling? No Cramping/contractions? No Abnormal vaginal discharge? No Spotting or vaginal bleeding? No Loss of fluid like your water may have broken? No Recent ER visits or hospitalizations? 1 month ago bleeding from uti Any concerns that you would like me to mention to the provider today? No * Yanelis Garrido MD - 08/04/2023 9:30 AM EST VISIT RECOMMENDATIONS ARE OUTLINED IN BOLD AT THE BOTTOM OF THIS NOTE. Dear Dr. Mock: Thank you for sending this patient secondary to chronic hypertension in and prior history of preeclampsia and growth restriction. Patient also has hypothyroidism Please alsosee any US note and (if concomitant visit) Genetic counselor note. Total time by Dr. Garrido is in addition to time needed to perform and interpret any ultrasound. Overall care, Zika virus screening, Covid-19 vaccination counseling, influenza vaccinationcounseling and unrelated Genetic screening (cystic fibrosis, muscular [...] was 45 minutes. 34 minutes were direct qtbg-lw-judc for counseling and coordination of care during visits itself. An additional 4 minutes or for same day preparation to see the patient. Another 7 minutes were needed were needed to prepare report and or to perform other duties to complete visit. Thank you for sending this patient. Yanelis Garrido MD Maternal Medicine Professor, [facility] [phone]- Office [phone]- Personal Cell Phone Office Note: Chronic hypertension [...] by mouth in the morning and 1 tablet(5 mg total) at noon and 1 tablet [...] list corrected at end of visit). The patientsaw my colleague Dr. Martinez previously. I confirmed the patient's understanding of chromosomal screening and or diagnostic testing (as wellas genetic carrier testing). Please note that ultrasound is not diagnostic for chromosomal abnormalities, will not detect all structural abnormalities, and is not diagnostic for genetic di sorders even if multiple exams are performed in [...] circumference measurement less than the 10th percentile (typicallywith lower expected normal range growth). We reviewed potential causes and etiologies. Discussion included explanation about constitutionally small fetus diagnosis. Constitutionally small fetusdiagnosis is a diagnosis of exclusion, which usually is not as likely in patients diagnosed earlierin gestation. Other causes include intrinsic etiology such [...] no longer recommended unless clinical circumstances or findingsuggests an increased risk since toxoplasmosis itself typically [...] after 36 weeks gestation (if applicable), we recommendincreasing NST assessment to twice per week. Doppler [...] develop poorly controlled hypertension, would use a lowerthreshold for reassessment of potential superimposed preeclampsia diagnosis, particularly given underlying diagnosis growth restriction now observed. TSH much improved. However it looks as if an additional doses adjustment should be made. We increased levothyroxine dosing to 100 mcg per day. At this point, next follow-up TSH and free T4 need to beobtained 3-4 weeks after this adjustment rather than [...] possibly contact her for CMV avidity testing follow- up. The patient also chose to undergo expanded [...] She has follow-up scheduled in our office. Primaryand overall management of is as per excellent care primary OB provider team. documented in this encounterReg[facility]* Diagnosis Second trimester state, incidental Diabetes mellitus screening Screening for diabetes mellitus Thyroid disease affecting (CMS/HCC) documented [facility] this encounter [facility]* Diagnosis Well woman exam with routine [...] serious comorbidity present [facility] Diagnosis IUGR (intrauterine growth restriction) affecting care of mother, second trimester, not applicable or unspecified fetus- Primary History of delivery, currently with history of pre-term labor 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 trimester Hx of preeclampsia, prior , currently , second trimester [facility] encounter [facility]* Diagnosis IUGR (intrauterine [...] applicable or unspecified [facility]* Diagnosis IUGR (intrauterine growth restriction) affecting care of mother, second trimester, not applicable or unspecified fetus Chronic hypertension affecting Hx of preeclampsia, prior , currently , second trimester [facility]* Diagnosis IUGR (intrauterine growth restriction) affecting care of mother, second trimester, not applicable or unspecified fetus- Primary Chronic hypertension affecting Hx of preeclampsia, prior , currently , second trimester [facility]* Diagnosis Pre-eclampsia superimposed on chronic hypertension, delivered- Primary History of Other postprocedural status [facility]* Diagnosis Onset Date Resolution Status Admit Date Fatigue acute October 03 8:52am Hypertension acute October 03, 2024 8:52am Hypothyroidism acute September 8:52am Obesity, morbid, BMI 40.0-49.9 acute October 03, 2024 8:52am Thyroid nodule acute September 8:52am [facility] Work Phone: InstructionsNot on filedocumented in this encounter [facility] SystemInstructionsNot on filedocumented in this encounter [facility] SystemInstructionsNot on filedocumented in this encounter [facility] SystemInstructionsNot on filedocumented in this encounter [facility] SystemInstructionsNot on filedocumented in this encounter [facility] SystemInstructionsNot on filedocumented in this encounter [facility] SystemInstructionsNot on filedocumented in this encounter [facility] SystemReason for visit Narrative* Consultation (Routine) - Pending Review Specialty Diagnoses / Procedures Referred By Ashtyn t Referred To Contact Obstetrics and Gynecology Diagnoses Pre-eclampsia, severe, with delivery Andrew Emery MD [address] [facility] [id number] [place] [address] Oma Novak, MANAGER FEDERAL-PATTERN CLERK [address] [place] [address] Referral ID Status Reason Start Date Expiration Date V isits Requested Visits Authorized [id number] Pending Review 10/12/2023 10/11/2024 1 1 [facility] Summary Purpose Family History Relationship Condition Age at Onset Recorded Date/T petra father Heart disease Unknown Myocardial infarction Unknown Hypertension Unknown Cerebrovascular accident (CVA) Unknown mother Cerebrovascular accident (CVA) Unknown Advance Directives Date Activated Date Inactivated Comments 09/27/2023 5:00 PM 10/12/2023 7:19 PM Date Activated Date Inactivated Comments 05/28/2021 11:19 AM 06/05/2021 10:50 PM Latest [...] Code 05/28/2021 11:19 AM 06/05/2021 10:50 PM Advance Directive Response Recorded Date/ Time Advance Directives No September 30 025 8:47am Reason for Referral Specialty Diagnoses / Procedures Referred By Contignacio t Referred To Contact Maternal and Medicine Diagnoses IUGR (intrauterine growth restriction) affecting care of mother, second trimester, not applicable or unspecified fetus History of delivery, currently 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 trimester Chronic hypertension affecting Procedures MF with or without consult Yanelis Garrido MD [address] [place] [address] [facility] Maternal Med [address] [place] [address] Referral ID Status Reason Start Date Expiration Date V isits Requested Visits Authorized [id number] Pending Review 08/04/2023 08/03/2024 1 1 Chief Complaint and Reason for Visit Chief Complaint Admit Date establish October 03, 2024 8:5 2am 1 month f/u November 04, 2024 8:5 4am Reason for Visit Admit Date Fatigue October 03, 2024 8:5 2am Hypertension October 03, 2024 8:5 2am Hypothyroidism October 03, 2024 8:5 2am Obesity, morbid, BMI 40.0-49.9 September 8:52am Thyroid nodule October 03, 2024 8:5 2am Chief Complaint Admit Date establish October 03, 2024 8:5 2am Chief Complaint Admit Date establish October 03, 2024 8:5 2am 1 month f/u November 04, 2024 8:5 4am Cough, congestion, fever December 21, 2024 11:26am Reason for Visit Admit Date Fatigue October 03, 2024 8:5 2am Hypertension October 03, 2024 8:5 2am Hypothyroidism October 03, 2024 8:5 2am Obesity, morbid, BMI 40.0-49.9 September 8:52am Thyroid nodule October 03, 2024 8:5 2am Hypertension November 04, 2024 8:5 4am Hypothyroidism November 04, 2024 8:5 4am Obesity, morbid, BMI 40.0-49.9 October 8:54am Bronchitis December 21, 2024 11:2 6am Additional Source Comments INFORMATION SOURCE (unrecogn ized section and content) DATE CREATED AUTHOR 01/05/2018 [facility] DATE CREATED AUTHOR AUTHOR'S ORGANIZ ATION 11/25/2022 [facility] DATE CREATED AUTHOR AUTHOR'S ORGANIZ ATION 09/25/2023 [facility] DATE CREATED AUTHOR AUTHOR'S ORGANIZ ATION 10/28/2023 [facility] DATE CREATED AUTHOR AUTHOR'S ORGANIZ ATION 03/10/2024 [facility] EPIC DATE CREATED AUTHOR AUTHOR'S ORGANIZ ATION 07/03/2024 [facility] EPIC DATE CREATED AUTHOR AUTHOR'S ORGANIZ ATION 10/11/2024 [facility] Reason for Visit (unrecogniz ed section and content) Reason Comments Routine Visit Reason Comments Well Women Visit depression follow up Reason Comments Weight Management Reason Comments post depression Reason Comments encounter for weight management Reason Comments Obesity Reason Onset Date Comments Appointment 08/04/2023 Reason Comments Hypertension Reason Onset Date Comments Outgoing Call 08/20/2023 Care Teams (unrecognized sec tion and content) [employer] Furnace [employer]er Relationship Specialty Start Date End Date Alfonzo Guerra MD [address] [place] [address] PCP - General Family Medicine 12/22/22 [employer]er Relationship Specialty Start Date End Date Alfonzo Guerra MD [address] [place] [address] PCP - General Family Medicine 12/22/22 [employer] Furn[employer]er Relationship Specialty Start Date End Date Alfonzo Guerra MD [address] [place] [address] PCP - General Family Medicine 12/22/22 [employer] Furnace Loader Relationship Specialty Start Date End Date Alfonzo Guerra MD [address] [place] [address] PCP - General Family Medicine 12/22/22 [employer] Furnace Loader Relationship Specialty Start Date End Date Alfonzo Guerra MD [address] [place] [address] PCP - General Family Medicine 12/22/22 [employer] Furnace Loader Relationship Specialty Start Date End Date Alfonzo Guerra MD [address] [place] [id number] PCP - General Family Medicine 12/22/22 [employer]cine Furnace Loader Relationship Specialty Start Date End Date Alfonzo Guerra MD [address] [place] [id number] PCP - General Family Medicine 12/22/22 [employer]cine Furnace Loader Relationship Specialty Start Date End Date Alfonzo Guerra MD [address] [place], [place] [id number] PCP - General Family Medicine 04/05/20 Calcine Furnace Loader Relationship Specialty Start Date End Date Alfonzo Guerra MD [address] [place] [address] PCP - General Family Medicine 04/05/20 Calcine Furnace Loader Relationship Specialty Start Date End Date Alfonzo Guerra MD [address] [place] [address] 24554 PCP - General Family Medicine 04/05/20 Calcine Furnace Loader Relationship Specialty Start Date End Date Alfonzo Guerra MD [address] [place] [address] 07174 PCP - General Family Medicine 04/05/20 Calcine Furnace Loader Relationship Specialty Start Date End Date Alfonzo Guerra MD [address] [place] [address]16 PCP - General Family Medicine 04/05/20 Calcine Furnace Loader Relationship Specialty Start Date End Date Alfonzo Guerra MD [address] [place] [address] 25855 PCP - General Family Medicine 04/05/20 Calcine Furnace Loader Relationship Specialty Start Date End Date Alfonzo Guerra MD [address] [place] [address] 68265 PCP - General Family Medicine 04/05/20 Calcine Furnace Loader Relationship Specialty Start Date End Date Alfonzo Guerra MD [address] [place] [address] 56112 PCP - General Family Medicine 04/05/20 Team Status: Active Member Role Status Dates Veronica Singh APRN QUALITY INSPECTOR-C Primary Care Provider Active Team Status: Inactive Member Role Status Dates Veronica Singh APRN QUALITY INSPECTOR-C Primary Care Provider, Attending Provider Active Start: October 03, 2024 End: October 03, 2024 Team Status: Inactive Member Role Status Dates Veronica Singh APRN NP-C Primary Care Provider, Attending Provider Active Start: November 04, 2024 End: November 04, 2024 Team Status: Inactive Member Role Status Dates Veronica Singh APRN QUALITY INSPECTOR-C Primary Care Provider, Attending Provider Active Start: December 21, 2024 End: December 21, 2024 Source Comments (unrecognize d section and content) In the event this informatio n is protected by the Federal Confidentiality of Alcohol and Drug Abuse Patient Records regulations: The Federal rules restrict any use of the information to criminally investigate or prosecute any alcohol or drug abuse patient.[facility] Goals (unrecognized section and content) Goals may be documented in a n alternate section FOR RECORDS PERTAINING TO PATIENTS WHO ARE [...] BE BASED ON THE PRIMARY CLINICAL RECORDS. [facility] [employer] [facility]. provides no warranty or guarantee of the accuracy or completeness of information in this document.
--- NOTE | 2025-01-14 23:10 | ED_ITS ---
HPI - Abdominal Pain General Chief Complaint: Abdominal Pain Stated Complaint: abd pain Time Seen by Provider: 01/14/25 23:06 Source: patient Mode of arrival: walk-in Limitations: no limitations History of Present Illness HPI narrative: complains of abdominal pain . States similar episode of pain about one month ago that resolved. Pain again tonight. Pain across her lower abdomen. States after her she was told she may have either kidney or gallstones. Pain was 8/10 at home but now has decreased to about 4/10. No urinary symptoms or nausea/diarrhea. No fever Related Data Home Medications �Medication �Instructions �Recorded �Confirmed albuterol sulfate 90 mcg/actuation 1 inh inhalation Q6 H PRN shortness 07/02/23 01/14/25 aerosol inhaler of breath or wheezing labetalol 200 mg tablet 100 mg PO DAILY 07/02/2312/04 omeprazole 20 mg capsule,delayed 20 mg PO DAILY 01/14/25 release venlafaxine 75 mg tablet 75 mg PO DAILY 06/05/2412/04 metformin 500 mg tablet 500 mg PO DAILY 08/15/2412/04 Allergies Allergy/AdvReac Type Severity Reaction Status Date / Time Iodinated Contrast Media Allergy Unknown Unknown Verified 01/14/25 23:03 azithromycin (From Zithromax) Allergy Hives Verified 01/14/25 23:03 ketorolac (From Toradol) Allergy Hives Verified 01/14/25 23:03 tramadol (From Ultram) Allergy Hives Verified 01/14/25 23:03 walnuts Allergy Severe Anaphylaxis Uncoded 01/14/25 23:03 Review of Systems ROS Status of ROS 10 or more systems reviewed and unremark able except as noted in history and below [facility] Social History Little interest or pleasure in doing things: not at all Feeling down, depressed, or hopeless: not at all Exam Constitutional Vital Signs, click to edit/add: Last Vital Signs Temp 98.5 F 01/14/25 22:53 Pulse 83 01/14/25 22:53 Resp 18 01/14/25 22:53 BP 134/82 01/14/25 23:31 Pulse Ox 96 01/14/25 22:53 O2 Del Method Room Air 01/14/25 22:53 Common normals: no apparent distress, average body habitus, oriented x3, no limitations, healthy appearing, alert and well nourished HENMT Common normals: normocephalic and head/scalp atraumatic Eye Common normals: EOMs intact bilaterally and conjunctivae normal Respiratory Common normals: normal respiratory effort, no retractions, no use of accessory muscles and clear to auscultation bilaterally Cardio Common normals: regular rate, regular rhythm, S1 normal heart sound and S2 normal heart sound GI Common normals: Normal to inspection, nondistended, normoactive bowel sounds present, soft to palpation and non-tender Extremity Common normals: normal to inspection Neuro Common normals: oriented x3, CN's II-XII intact bilaterally, moves all ext remities and no focal motor deficits Psych Appearance: grossly normal Course Vital Signs Vital signs: Vital Signs Temperature 98.5 F 01/14/25 22:53 Pulse Rate 83 01/14/25 22:53 Respiratory Rate 18 01/14/25 22:53 Blood Pressure 140/100 H 01/14/25 22:53 Pulse Oximetry 96 01/14/25 22:53 Oxygen Delivery Method Room Air 01/14/25 22:53 Temperature 98.5 F 01/14/25 22:53 Pulse Rate 83 01/14/25 22:53 Respiratory Rate 18 01/14/25 22:53 Blood Pressure 134/82 01/14/25 23:31 Pulse Oximetry 96 01/14/25 22:53 Oxygen Delivery Method Room Air 01/14/25 22:53 MDM - Abdominal Pain MDM Narrative Medical decision making narrative: patient presents with complaint of acute lower abdominal pain. 8/10 pain at home . 4/10 pain on arrival. No nausea or vomiting or urinary complaint. Mild bilat lower quad tenderness without guarding. Labs with mildly elevated WBC. UA conta iminated but cx ordered. CT abdomen with finding of fatty liver but no othe acute finding. patient re evaluated and is now pain free. Discharged to follow up with her doctor Lab Data Labs: Lab Results 01/14/25 01/14/25 Range/Units 23:19 23:55 WBC 13.4 H (4.0-11.0) 10^3/uL RBC 4.43 (4.20-5.40) 10^6/uL Hgb 12.6 (12.0-16.0) g/dL Hct 38.3 (36.0-48.0) % MCV 86.5 (81.0-99.0) fL MCH 28.4 (26.7-34.0) pg MCHC 32.9 (29.9-35.2) g/dL RDW 13.2 (11.0-15.0) % Plt Count 383 (150-450) 10^3/uL MPV 9.0 L (9.5-13.5) fL Neut % (Auto) 53.5 (43.0-75.0) % Lymph % (Auto) 37.5 (20.5-60.0) % [place] % (Auto) 5.5 (1.7-12.0) % Eos % (Auto) 2.4 (0.9-7.0) % Baso % (Auto) 0.8 (0.2-2.0) % Neut # (Auto) 7.1 H (1.4-6.5) 10^3/uL Lymph # (Auto) 5.0 H (1.2-3.8) 10^3/uL [place] # (Auto) 0.7 (0.3-0.8) 10^3/uL Eos # (Auto) 0.3 (0.0-0.7) 10^3/uL Baso # (Auto) 0.1 (0.0-0.1) 10^3/uL Abs Immat Gran (auto) 0.04 H (0.00-0.03) 10^3/uL Imm/Tot Granulo (auto) 0.3 (0.0-0.5) % Sodium 141 (136-145) mmol/L Potassium 3.8 (3.5-5.1) mmol/L Chloride 104 (98-107) mmol/L Carbon Dioxide 26.7 (21.0-32.0) mmol/L Anion Gap 14.1 BUN 15.0 (7.0-18.0) mg/dL Creatinine 0.88 (0.55-1.02) mg/dL Est GFR ( Amer) >60 (>=60 mL/min/1.73m^2) Est GFR (Non-Af Amer) >60 (>=60 mL/min/1.73m^2) BUN/Creatinine Ratio 17.0 Glucose 123 H (74-106) mg/dL Calcium 9.3 (8.5-10.1) mg/dL Total Bilirubin 0.2 (0.2-1.0) mg/dL AST 16 (15-37) U/L ALT 29 (14-59) U/L Alkaline Phosphatase 60 (46-116) U/L Total Protein 7.0 (6.4-8.2) g/dL Albumin 3.3 L (3.4-5.0) g/dL Globulin 3.7 g/dL Albumin/Globulin Ratio 0.9 Lipase 29.0 (16.0-77.0) U/L Urine Color Lt. yellow (YELLOW) Urine Clarity Clear (CLEAR) Urine pH 6.0 (5.0-9.0) Ur Specific [place] >=1.030 A (1.005-1.025) Urine Protein Negative (NEG/TRACE) mg/dL Urine Glucose (UA) Negative (NEGATIVE) mg/dL Urine Ketones Negative (NEGATIVE) mg/dL Urine Occult Blood Negative (NEGATIVE) Urine Nitrite Negative (NEGATIVE) Urine Bilirubin Negative (NEGATIVE) Urine Urobilinogen 0.2 (0.2-1.0) EU/dL Ur Leukocyte Esterase Negative (NEGATIVE) Urine RBC 0-2 (0-2) #/HPF Urine WBC 0-2 A (NONE SEEN) #/HPF Ur Squamous Epith Cells Many A (NONE/RARE) #/LPF Urine Crystals Seen A (None Seen) #/HPF Calcium Oxalate Crystal Few Urine Bacteria Moderate A (NONE SEEN) #/HPF Urine Casts None seen (NONE SEEN) #/LPF Urine Mucus None seen (NONE SEEN) Ur Culture Indicated? Yes-[facility] [place] Discharge Plan Discharge Chief Complaint: Abdominal Pain Clinical Impression: Abdominal pain Patient Disposition: Home, Self-Care Prescriptions / Home Meds: No Action albuterol sulfate 90 mcg/actuation HFA aerosol inhaler 1 inh inhalation Q6H PRN (Reason: shortness of breath or wheezing) labetalol 200 mg tablet 100 mg PO DAILY venlafaxine 75 mg tablet 75 mg PO DAILY omeprazole 20 mg capsule,delayed release(DR/EC) 20 mg PO DAILY metformin 500 mg tablet 500 mg PO DAILY Print Language: Sinhala Instructions: Abdominal Pain (ED) Additional Instructions: follow up with your doctor next week for recheck Referrals: YUE RODRIGUEZ [Primary Care Provider, Unknown] - 1 week
[2025-01-14 23:22] VITALS: BP 122/94
[2025-01-14 23:27] LABS: Hematocrit 38.3 % (36.0-48.0); Hemoglobin 12.6 g/dL (12.0-16.0); Immature Granulocytes Abs Auto 0.04 10^3/uL (0.00-0.03); Immature Granulocytes Pct Auto 0.3 % (0.0-0.5); Lymphocytes Absolute Auto 5.0 10^3/uL (1.2-3.8); Mean Corpuscular HGB Conc 32.9 g/dL (29.9-35.2); Mean Corpuscular Hemoglobin 28.4 pg (26.7-34.0); Mean Corpuscular Volume 86.5 fL (81.0-99.0); Platelet Count 383 10^3/uL (150-450); Red Blood Count 4.43 10^6/uL (4.20-5.40); White Blood Count 13.4 10^3/uL (4.0-11.0)
[2025-01-14 23:31] VITALS: BP 134/82
[2025-01-14 23:43] LABS: Alanine Aminotransferase 29 U/L (14-59); Albumin Globulin Ratio 0.9; Albumin Level 3.3 g/dL (3.4-5.0); Alkaline Phosphatase 60 U/L (46-116); Anion Gap 14.1; Aspartate Amino Transferase 16 U/L (15-37); Blood Urea Nitrogen 15.0 mg/dL (7.0-18.0); Calcium 9.3 mg/dL (8.5-10.1); Carbon Dioxide 26.7 mmol/L (21.0-32.0); Chloride 104 mmol/L (98-107); Estimated GFR (African America >60 (>=60 mL/min/1.73m^2); Estimated GFR (Non-African Ame >60 (>=60 mL/min/1.73m^2); Globulin 3.7 g/dL; Glucose 123 mg/dL (74-106); Lipase 29.0 U/L (16.0-77.0); Potassium 3.8 mmol/L (3.5-5.1); Sodium 141 mmol/L (136-145); Total Protein 7.0 g/dL (6.4-8.2)
[2025-01-15] LABS: Glucose Urine UA NEGATIVE (NEGATIVE)
[2025-01-15 00:06] LABS: Crystals Seen? Seen #/HPF (None Seen)
[2025-01-15 00:07] LABS: Cast Seen? NONE SEEN #/LPF (NONE SEEN); Urine Culture Indicated YES-FRMC
== END 2025-01-15 01:50 | disposition home or self-care (01) ==
PROVIDERS: Emergency Provider Internal Medicine; PCP Nurse Practitioner Family
DX: R10.30 Lower abdominal pain, unspecified (principal); K76.0 Fatty (change of) liver, not elsewhere classified
CPT/HCPCS: 36415; 74176; 80053; 81001; 83690; 85025; 87086; 99284

== ENCOUNTER 2025-04-14 00:56 | Emergency (ER) | payer BC, SELFPAY ==
[2025-04-14 01:01] VITALS: BP 160/100; PULSE 79; TEMP 36.9; O2SAT 98; BMI 45.1
--- OUTSIDE RECORDS SUMMARY | 2025-04-14 01:01 | XMS_ITS | Encounter Summary ---
Author Organization [facility] Address [address] [facility] [place] [address] Care Team Providers Care Hat Presser Name Role Phone Alfonzo Addison MD Primary Care Provider Encounter Details Date Type Department Care Team (Late st Contact Info) Description 06/03/2023 Abstract [facility] [address] [place] [phone] Leslie William LPN [address] [facility] [facility] [address] [facility], [place] [id number] Social History Tobacco Use Types Packs/Day Years Used Date Smoking Tobacco: Never Alcohol Use Standard Drinks/Week Comments Not Currently 0 (1 standard drink = 0.6 oz pur e alcohol) occasional Comments Yes Sex and Gender Information Value Date Recorded Sex Assigned at Female 03/18/2024 2:16 PM EDT Legal Sex Female 6:47 PM EDT Gender Identity Female 03/18/2024 2:16 PM EDT Sexual Orientation Straight 03/18/2024 2: 16 PM EDT COVID-19 Exposure Response Date Recorded In the last 10 days, have yo u been in contact with someone who was confirmed or suspected to have Coronavirus/COVID-19? No / Unsure 05/14/2023 9:59 AM EDT documented as of this encounter Plan of Treatment Upcoming Encounters Date Type Department Care Team (Late st Contact Info) Description 05/08/2025 11:00 AM EDT Office Visit [facility] [address] [place] [phone] Contreras Mock DO [address] [place] [address] documented as of this encounter Goals Goal Patient Goal Type Associated Problems Recent Progress Patient-Stated? Author Reminders Care Plan OB Reminders No Open Scheduling, Background documented as of this encounter Visit Diagnoses Not on filedocumented in this encounter Additional Health Concerns Active Problems Noted Date Diagnosed Date OB Reminders 05/11/2023 documented as of this encounter Care Teams Hat Presser Relationship Specialty Start Date End Date Alfonzo Addison MD [address] [place] [id number] PCP - General Family Medicine 12/22/22 documented as of this encounter
--- OUTSIDE RECORDS SUMMARY | 2025-04-14 01:01 | XMS_ITS | Encounter Summary ---
Author Organization [facility] Address [address] [facility] [place] [address] Care Team Providers Care Pss Delivery Professional Name Role Phone Alfonzo Addison MD Primary Care Provider Encounter Details Date Type Department Care Team (Late st Contact Info) Description 06/30/2023 Abstract [facility] [address] [place] [address] Leslie William LPN [address] [facility] [address] [facility], [place] [id number] Social History Tobacco Use Types Packs/Day Years [...] suspected to have Coronavirus/COVID-19? No / Unsure 06/11/2023 12:08 PM EST documented as of this encounter Plan of Treatment Upcoming Encounters Date Type Department Care Team (Late st Contact Info) Description 05/08/2025 11:00 AM EDT Office Visit [facility] [address] [place] [phone] Contreras Mock DO [address] [facility] [place] [address] documented as of this encounter Goals Goal Patient Goal Type Associated Problems Recent Progress Patient-Stated? Author Reminders Care Plan OB Reminders No Open Scheduling, Background documented as of this encounter Visit Diagnoses Not on filedocumented in this encounter Additional Health Concerns Active Problems Noted Date Diagnosed Date OB Reminders 05/11/2023 documented as of this encounter Care Teams Pss Delivery Professional Relationship Specialty [place] [address] [place] [address] PCP - General Family Medicine 12/22/22 documented as of this encounter
--- OUTSIDE RECORDS SUMMARY | 2025-04-14 01:01 | XMS_ITS | Encounter Summary ---
Author Organization [facility] Address [address] [facility] [place] [address] Care Team Providers Care Sales Account Representative Name Role Phone Alfonzo Addison MD Primary Care Provider [phone] Encounter Details Date Type Department Care Team (Late st Contact Info) Description 06/19/2023 External Result Encounter [facility] [address] [place] [phone] Jacky Mock DO [address] [facility] [address] [place], [facility] Social History Tobacco Use Types Packs/Day Years [...] 05/08/2025 11:00 AM EDT Office Visit [facility] [address] [place] [address] Jacky Mock DO [address] [place] [address] documented as of this encounter Goals Goal Patient Goal Type Associated Problems Recent Progress Patient-Stated? Author Reminders Care Plan OB Reminders No Open Scheduling, Background documented as of this encounter Procedures Procedure Name Priority Date/Time Associated Diagnosis Comments US OB 14+ WEEKS ANATOMY SCAN 06/19/2023 10:31 AM EST documented in this encounter Results * US OB 14+ weeks anatomy scan (06/19/2023 10:31 AM EST) Anatomical Region Laterality Modality Body Ultrasound 06/19/2023 10:3 1 AM EST Narrative 06/19/2023 10:30 AM EST THIS EXAM WAS PERFORMED AT [facility] REPORT (Signed Final 06/19/2023 10:30) PATIENT INFO: ID #: [id number] : [birth year] (27 yrs)(F) Name: BRAULIO ALFORD CHAKRABORTY Visit Date: 06/19/2023 09:37 PERFORMED BY: Attending: Mnauel Martinez MD Performed By: Yessica Burrell RDMS Referred By: Jacky Mock DO Ref. Address: [address] [place] [address] [place] [address] Location: [facility] SERVICE(S) PROVIDED: Basic OB, 1st trimester (< 14 weeks), 1 fetus [id number] INDICATIONS: Viability O36.80X9 Obesity in , antepartum O99.210 History of previous with IUGR O09.299 History of previous with O09.899 delivery History of previous with pre- O09.299 eclampsia Hyperthyroidism O99.280, E05.90 Hypertension, pre-existing O10.919 Prior O34.21 VITAL SIGNS: Weight (lb): 274.8 Height: 5'7 BMI: 43.04 EVALUATION: Num Of Fetuses: 1 Heart Rate(bpm): 167 Cardiac Activity: Present appears normal Presentation: Variable Placenta: Anterior Amniotic Fluid MAXIMILIAN FV: Subjectively within normal limits BIOMETRY: CRL: 77.3 mm G.Age: 13w 6d MARGARITO: 12/19/23 OB HISTORY: : 2 Evens: 1 Livin GESTATIONAL AGE: LMP: 14w 1d Date: 03/12/23 MARGARITO: 12/17/23 Best: 14w 1d Det. By: LMP (03/12/23) MARGARITO: 12/17/23 ANATOMY: Cranium: Appears normal Cavum: Appears normal Heart: Not well visualized Stomach: Appears normal, left sided Abdomen: Appears normal Upper Extremities: Not well visualized Lower Extremities: Not well visualized CERVIX UTERUS ADNEXA: Uterus Gravid uterus Right Ovary Size(cm) 2.4 x 2.16 x 2.03 Vol(ml): 5.51 Visualized Left Ovary Not visualized Adnexa No adnexal masses identified COMMENTS: 1. Ultrasound is not diagnostic for chromosomal abnormalities, will not detect all structural abnormalities, and is not diagnostic for genetic disorders even if multiple exams are performed during a given . 2. Images of optimal diagnostic quality could not be obtained. Manuel Martinez MD Electronically Signed Final Report 06/19/2023 10:30 IMPRESSION: 1. Single intrauterine , size consistent with dates. 2. Unable to obtain NT due to position. RECOMMENDATIONS: 1. Please see M consultation documentation from today's encounter. 2. Subsequent follow up or other follow up as clinically determined by primary OB provider unless otherwise specified by [facility]. 3. Results forwarded to ordering provider so they can follow up with the patient as necessary. The copy-to physician of this order is JACKY Keith The ordering physician of this order is MANUEL To Procedure Note Radiology, Radiologist, - 07/07/2023 [facility] REPORT (Signed Final 06/19/2023 10:30) PATIENT INFO: ID #: [id number] : [birth year] (27 yrs)(F) Name: BRAULIO CHAKRABORTY Visit Date: 06/19/2023 09:37 PERFORMED BY: Attending: Manuel Martinez MD Performed By: Yessica Burrell RDMS Referred By: Jacky Mock DO Ref. Address: [address] [place] [address] [place] [address] Location: [facility] SERVICE(S) PROVIDED: Basic OB, 1st trimester (< 14 weeks), 1 fetus [id number] INDICATIONS: Viability O36.80X9 Obesity in , antepartum O99.210 History of previous with IUGR O09.299 History of previous with O09.899 delivery History of previous with pre- O09.299 eclampsia Hyperthyroidism O99.280, E05.90 Hypertension, pre-existing O10.919 Prior O34.21 VITAL SIGNS: Weight (lb): 274.8 Height: 5'7 BMI: 43.04 EVALUATION: Num Of Fetuses: 1 Heart Rate(bpm): 167 Cardiac Activity: Present appears normal Presentation: Variable Placenta: Anterior Amniotic Fluid MAXIMILIAN FV: Subjectively within normal limits BIOMETRY: CRL: 77.3 mm G.Age: 13w 6d MARGARITO: 12/19/23 OB HISTORY: : 2 Evens: 1 Livin GESTATIONAL AGE: LMP: 14w 1d Date: 03/12/23 MARGARITO: 12/17/23 Best: 14w 1d Det. By: LMP (03/12/23) MARGARITO: 12/17/23 ANATOMY: Cranium: Appears normal Cavum: Appears normal Heart: Not well visualized Stomach: Appears normal, left sided Abdomen: Appears normal Upper Extremities: Not well visualized Lower Extremities: Not well visualized CERVIX UTERUS ADNEXA: Uterus Gravid uterus Right Ovary Size(cm) 2.4 x 2.16 x 2.03 Vol(ml): 5.51 Visualized Left Ovary Not visualized Adnexa No adnexal masses identified COMMENTS: 1. Ultrasound is not diagnostic for chromosomal abnormalities, will not detect all structural abnormalities, and is not diagnostic for genetic disorders even if multiple exams are performed during a given . 2. Images of optimal diagnostic quality could not be obtained. Manuel Martinez MD Electronically Signed Final Report 06/19/2023 10:30 IMPRESSION: 1. Single intrauterine , size consistent with dates. 2. Unable to obtain NT due to position. RECOMMENDATIONS: 1. Please see [facility] consultation documentation from today's encounter. 2. Subsequent follow up or other follow up as clinically determined by primary OB provider unless otherwise specified by [facility]. 3. Results forwarded to ordering provider so they can follow up with the patient as necessary. The copy-to physician of this order is JACKY Keith The ordering physician of this order is MANUEL To us Jacky Mock DO IMG OB US PROCEDURES Final Resul t documented in this encounter Visit Diagnoses Not on filedocumented in this encounter Additional Health Concerns Active Problems Noted Date Diagnosed Date OB Reminders 05/11/2023 documented as of this encounter Care Teams Sales Account Representative Relationship Specialty Start Date End Date Alfonzo Addison MD [address] [place] [address] PCP - General Family Medicine 12/22/22 documented as of this encounter
--- OUTSIDE RECORDS SUMMARY | 2025-04-14 01:01 | XMS_ITS | Encounter Summary ---
Author Organization [facility] Address [address] [facility] [place] [address] Care Team Providers Care Pill Coater Name Role Phone Alfonzo Addison MD Primary Care Provider Encounter Details Date Type Department Care Team (Late st Contact Info) Description 09/24/2023 Abstract [facility] [address] [place] [address] Leslie William LPN [address] [facility] [address] [facility], [place] [id number] Social History Tobacco Use Types Packs/Day Years [...] Orientation Straight 03/18/2024 2: 16 PM EDT documented as of this encounter Plan of Treatment Upcoming Encounters Date Type Department Care Team (Late st Contact Info) Description 05/08/2025 11:00 AM EDT Office Visit [facility] [address] [place] [address] Contreras Mock, DO [address] [facility] [place] [address] documented as of this encounter Goals Goal Patient Goal Type Associated Problems Recent Progress Patient-Stated? Author Reminders Care Plan OB Reminders No Open Scheduling, Background documented as of this encounter Visit Diagnoses Not on filedocumented in this encounter Additional Health Concerns Active Problems Noted Date Diagnosed Date OB Reminders 05/11/2023 documented as of this encounter Care Teams Pill Coater Relationship Specialty Start Date End Date Alfonzo Addison MD [facility] [place] [address] PCP - General Family Medicine 12/22/22 documented as of this encounter
--- OUTSIDE RECORDS SUMMARY | 2025-04-14 01:01 | XMS_ITS | Encounter Summary ---
Author Organization [facility] Address [address] [facility] [place] [address] Care Team Providers Care Quill Winder Name Role Phone Alfonzo Addison MD Primary Care Provider Encounter Details Date Type Department Care Team (Late st Contact Info) Description 06/02/2023 Abstract [facility] [address] [place] [phone] Leslie William LPN [address] [employer] [facility] [address] [facility], [place] [id number] Social History Tobacco Use Types Packs/Day Years [...] EDT Office Visit [facility] [address] [facility] [place] [address] Contreras Mock DO [address] [facility] [place] [address] documented as of this encounter Goals Goal Patient Goal Type Associated Problems Recent Progress Patient-Stated? Author Reminders Care Plan OB Reminders No Open Scheduling, Background documented as of this encounter Visit Diagnoses Not on filedocumented in this encounter Additional Health Concerns Active Problems Noted Date Diagnosed Date OB Reminders 05/11/2023 documented as of this encounter Care Teams Quill Winder Relationship Specialty Start Date End Date Alfonzo Addison MD [address] [place] [address] PCP - General Family Medicine 12/22/22 documented as of this encounter
--- OUTSIDE RECORDS SUMMARY | 2025-04-14 01:01 | XMS_ITS | Clinical Summary ---
Author Organization [facility] Address [id number] [address] [place] [address] Care Team Providers Care Asbestos Brake Lining Finisher Helper Name Role Phone Alfonzo Addison MD Primary Care Provider [phone] Allergies Active Allergy Reactions Criticality Noted Date Comments Azithromycin Hives 06/30/2014 Dye 03/24/2018 Sara contrast Ketorolac Hives 06/30/2014 Tramadol Hives 06/30/2014 Medications metoclopramide (REGLAN) 5 mg tablet Take 1 tablet (5 mg total) by mouth in the morning and 1 tablet (5 mg total) at noon and 1 tablet (5 mg total) in the evening and 1 tablet (5 mg total) before bedtime. Active ondansetron ODT (ZOFRAN ODT) 4 mg disintegrating tablet Dissolve 1 tablet (4 mg total) on tongue 3 (three) times a day as needed for nausea for up to 3 doses. 3 tablet 3 Active escitalopram (LEXAPRO) 5 mg tablet Take 1 tablet (5 mg total) by mouth in the morning. Active levothyroxine (SYNTHROID, LEVOTHROID) 75 MCG tablet Take 1 tablet (75 mcg total) by mouth in the morning. 60 tablet 2 4 Active pantoprazole (PROTONIX) 40 mg EC tablet Take 1 tablet (40 mg total) by mouth in the morning. 60 tablet 2 4 Active labetaloL (NORMODYNE) 300 mg tablet Take 2 tablets (600 mg total) by mouth every 8 (eight) hours. 60 tablet 2 4 Active acetaminophen (TYLENOL EXTRA STRENGTH) 500 mg tablet Take 2 tablets (1,000 mg total) by mouth every 8 (eight) hours. 30 tablet 4 Active ibuprofen (MOTRIN) 800 mg tablet Take 1 tablet (800 mg total) by mouth every 8 (eight) hours as needed for headaches, fever or pain. 30 tablet 4 Active NIFEdipine XL (PROCARDIA XL) 30 mg 24 hr tablet Take 1 tablet (30 mg total) by mouth in the morning. 30 tablet 2 4 Active Active Problems Problem Noted Date Diagnosed Date Pre-eclampsia, severe, with delivery 09/27/2023 Hx of preeclampsia, prior pr egnancy, currently , second trimester 08/04/2023 IUGR (intrauterine growth re striction) affecting care of mother, second trimester, not applicable or unspecified fetus 08/04/2023 History of delivery, currently 06/19/2023 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 tri mester 06/19/2023 Maternal care for other know n or suspected poor growth, unspecified trimester, not applicable or unspecified 05/29/2021 affected by growth restriction 1 07/28/2020 Disease of thyroid gland Overview (03/01/2021): HYPERTHYROID Essential hypertension Immunizations Immunization Administration Dates Next Due Influenza, Injectable, quadrivalent (PF) 021 Tdap 06/05/2021 Family History Medical History Relation Name Comments Blood Clots Father Diabetes Father Heart disease Father Hypertension Father Stroke Father Cancer Maternal Grandfather Hypertension Maternal Grandfather Leukemia Maternal Grandfather Asthma Maternal Grandmother Hypertension Maternal Grandmother Hypertension Mother Stroke Mother Cancer Paternal Grandmother Relation Name Status Comments Father Maternal Grandfather Maternal Grandmother Mother Paternal Grandmother Social History Tobacco Use Types Packs/Day Years Used Date Smoking Tobacco: Never Smokeless Tobacco: Never Alcohol Use Standard Drinks/Week Comments Not Currently 0 (1 standard drink = 0.6 oz pur e alcohol) AUDIT-C Answer Date Recorded Frequency of Alcohol Consumption Never 03/21/2020 Average Number of Drinks Not on file 020 Frequency of Binge Drinking Not on file 03/2020 PHQ-2 Answer Date Recorded Total Score 0 07/11/2020 Childcare Answer Date Recorded Childcare Unknown 12/22/2018 Employment Answer Date Recorded Employment Unknown 12/22/2018 Hunger Screening Answer Date Recorded Within the past 12 months we worried whether our food would run out before we got money to buy more. Never True 08/04/2023 Within the past 12 months th e food we bought just didn't last and we didn't have money to get more. Never True 08/04/2023 Purpose - Life Answer Date Recorded Purpose and direction in life Unknown Comments No Sex and Gender Information Value Date Recorded Sex Assigned at Female 04/22/2021 10:12 AM EDT Legal Sex Female 12:07 PM EDT Gender Identity Female 04/22/2021 10:12 AM EDT Sexual Orientation Straight 04/22/2021 10 :12 AM EDT Last Filed Vital Signs Vital Sign Reading Time Taken Comments Blood Pressure 120/81 10/20/2023 12:00 PM EDT Pulse 78 10/20/2023 12:00 PM EDT Temperature 36.7 C (98.1 F) 10/20/2023 10:49 AM EDT Respiratory Rate 16 10/20/2023 10:4 9 AM EDT Oxygen Saturation 98% 10/10/2023 11: 00 PM EDT Inhaled Oxygen Concentration - - Weight 126.6 kg (279 lb 1.6 oz) 10/12/2023 5:17 AM EDT Height 170.2 cm (5' 7 ) 09/27/2023 4:29 PM EDT Body Mass Index 43.71 09/27/2023 4:29 PM EDT Plan of Treatment Health Maintenance Due Date Last Done Comments Depression Screening 2008 Adult BMI Screening 10/11/2024 10/12/2023 Tobacco Screening 10/11/2024 10/12/2023 COVID-19 Vaccine (2024-2 6 season) 2025 07/22/2021, 07/01/2021 Influenza Vaccine 03/13/2025 06/10/2022, , 05/22/2009 Pap Smear 11/24/2025 11/24/2022 DTaP,Tdap and Td Vaccines (7 - Td or Tdap) 06/05/2031 06/05/2021, 09/23/2018, 10/28/2001, Additional history exists Medical Devices Not on file Insurance [employer] Advance Directives * Full Code (Latest Code Status on File) Date Activated Date Inactivated Comments 09/27/2023 5:00 PM 10/12/2023 7:19 PM * Full Code Date Activated Date Inactivated Comments 05/28/2021 11:19 AM 06/05/2021 10:50 PM Care Teams Asbestos Brake Lining Finisher Helper Relationship Specialty Start Date End Date Alfonzo Addison MD [address] [place] [id number] PCP - General Family Medicine 04/05/20
--- OUTSIDE RECORDS SUMMARY | 2025-04-14 01:01 | XMS_ITS | Encounter Summary ---
Author Organization [facility] Address [address] [facility] [address] Care Team Providers Care Probate Lawyer Name Role Phone Alfonzo Addison MD Primary Care Provider Encounter Details Date Type Department Care Team (Late st Contact Info) Description 06/02/2023 Abstract [facility] [address] [place] [phone] Leslie William LPN [address] [facility] [address] [facility] [place], [place] [phone] Social History Tobacco Use Types Packs/Day Years [...] EDT Office Visit [facility] [address] [facility] [place] [phone] Contreras Mock DO [address] [facility] [place] [address] documented as of this encounter Goals Goal Patient Goal Type Associated Problems Recent Progress Patient-Stated? Author Reminders Care Plan OB Reminders No Open Scheduling, Background documented as of this encounter Visit Diagnoses Not on filedocumented in this encounter Additional Health Concerns Active Problems Noted Date Diagnosed Date OB Reminders 05/11/2023 documented as of this encounter Care Teams Probate Lawyer Relationship Specialty Start Date End Date Alfonzo Addison MD [address] [place] [address] PCP - General Family Medicine 12/22/22 documented as of this encounter
--- OUTSIDE RECORDS SUMMARY | 2025-04-14 01:01 | XMS_ITS | Encounter Summary ---
Author Organization [facility] Address [address] [place] [address] Care Team Providers Care Strip Polisher Name Role Phone Alfonzo Addison MD Primary Care Provider Encounter Details Date Type Department Care Team (Late st Contact Info) Description 05/10/2024 Orders Only [facility] [address] [email or web address] [address] Leslie William LPN [address] [facility] [facility] [address], [place] [phone] Social History Tobacco Use Types Packs/Day Years Used Date Smoking Tobacco: Never Alcohol Use Standard Drinks/Week Comments Not Currently 0 (1 standard drink = 0.6 oz pur e alcohol) occasional Comments Unknown Sex and Gender Information Value Date Recorded [...] 11:00 AM EDT Office Visit [facility] [address] [email or web address] [address] Contreras Mock, DO [address] [facility] [place] [address] documented as of this encounter Goals Goal Patient Goal Type Associated Problems Recent Progress Patient-Stated? Author Reminders Care Plan OB Reminders No Open Scheduling, Background documented as of this encounter Procedures Procedure Name Priority Date/Time Associated Diagnosis Comments PAP SMEAR Routine 05/03/2024 12:00 AM EDT documented in this encounter Results * Pap Smear (05/03/2024 12:00 AM EDT) Swab Cervical swab / Unknown Emili Nurse [facility] CYTOLOGY ORDERABLES Final Result EXTERNAL LAB documented in this encounter Visit Diagnoses Not on filedocumented in this encounter Additional Health Concerns Active Problems Noted Date Diagnosed Date OB Reminders 05/11/2023 documented as of this encounter Care Teams Strip Polisher Relationship Specialty Start Date End Date Alfonzo Addison MD [address] [place] [address] PCP - General Family Medicine 12/22/22 documented as of this encounter
--- OUTSIDE RECORDS SUMMARY | 2025-04-14 01:02 | XMS_ITS | Encounter Summary ---
Author Organization [facility] Address [address] [place] [address] Care Team Providers Care Blast Furnace Operator Name Role Phone Alfonzo Addison MD Primary Care Provider Encounter Details Date Type Department Care Team (Late st Contact Info) Description 02/21/2025 Abstract [facility] [address] [place] [phone] Contreras Mock DO [address] [facility] [address] [place], [place] [phone] Social History Tobacco Use Types Packs/Day Years Used Date Smoking Tobacco: Never Alcohol Use Standard Drinks/Week Comments Not Currently 0 (1 standard drink = 0.6 oz pur e alcohol) occasional Comments No Sex and Gender Information Value Date Recorded Sex Assigned at Female 03/18/2024 2:16 PM EDT Legal Sex Female 6:47 PM EDT Gender Identity Female 03/18/2024 2:16 PM EDT Sexual Orientation Straight 03/18/2024 2: 16 PM EDT documented as of this encounter Plan of Treatment Upcoming Encounters Date Type Department Care Team (Late Contact Info) Description 05/08/2025 11:00 AM EDT Office Visit [facility] [address] [place] [address] Contreras Mock, DO [address] [facility] [place] [address] documented as of this encounter Goals Goal Patient Goal Type Associated Problems Recent Progress Patient-Stated? Author Reminders Care Plan OB Reminders No Open Scheduling, Background documented as of this encounter Visit Diagnoses Not on filedocumented in this encounter Additional Health Concerns Active Problems Noted Date Diagnosed Date OB Reminders 05/11/2023 documented as of this encounter Care Teams Blast Furnace Operator Relationship Specialty Start Date End Date Alfonzo Addison MD [facility] [place] [address] PCP - General Family Medicine 12/22/22 documented as of this encounter
--- OUTSIDE RECORDS SUMMARY | 2025-04-14 01:02 | XMS_ITS | Encounter Summary ---
Author Organization [facility] Address [address] [place] [address] Care Team Providers Care Data Analysis Intern Name Role Phone Unavailable Primary Care Provider Unavailabl e Source Comments In the event this information is protected by the Federal Confidentiality of Alcohol and Drug AbusePatient Records regulations: The Federal rules restrict any use of the information to criminally investigate or prosecute any alcohol or drug abuse patient.[facility] Encounter Details Date Type Department Care Team (Late st Contact Info) Description 11/30/2024 Patient Msg General Surgery [address] [place], [place] [phone] Provider, [facility] Introduction to your Bariatric Surgery Journey Social History Tobacco Use Types Packs/Day Years Used Date Smoking Tobacco: Never Assessed PHQ-2 Answer Date Recorded PHQ-2 score 0 07/29/2024 Area Deprivation Index Answer Date Chung rded National Score (1-100), lower number is lower ri sk 91 08/05/2024 State Score (1-10), lower number is lower risk 9 08/05/2024 Data from: https://www.neighborhoodatlas.medicine.[facility].edu/. Last address used for calculation [address] [place] [address] 08/05/2024 Comments Unknown Sex and Gender Information Value Date Recorded Sex Assigned at Female 07/29/2024 10:01 PM EST Legal Sex Female 9:57 AM EDT Gender Identity Female 07/29/2024 10:01 PM EST Sexual Orientation Straight 07/29/2024 10 :01 PM EST documented as of this encounter Plan of Treatment Not on file documented as of this encounter Goals Goal Patient Goal Type Associated Problems Recent Progress Patient-Stated? Author Bariatric Surgery Authorization Facility Maintenance Supervisor Care Plan Bariatric Surgery Authorization Facility Maintenance Supervisor No Christina Grimm documented as of this encounter Visit Diagnoses Not on filedocumented in this encounter Additional Health Concerns Active Problems Noted Date Diagnosed Date Bariatric Surgery Authorization Facility Maintenance Supervisor 0 11/30/2024 documented as of this encounter
--- OUTSIDE RECORDS SUMMARY | 2025-04-14 01:02 | XMS_ITS | Encounter Summary ---
Author Organization [facility] Address [facility] [place] [address] Care Team Providers Care Vault Custodian Name Role Phone Unavailable Primary Care Provider Unavailabl e Source Comments In the event this information is protected by the Federal Confidentiality of Alcohol and Drug AbusePatient Records regulations: The Federal rules restrict any use of the information to criminally investigate or prosecute any alcohol or drug abuse patient.[facility] Encounter Details Date Type Department Care Team (Late st Contact Info) Description 08/05/2024 Patient Msg General Surgery BMI [facility]YL [address] [place], [place] [phone] Olivia Tuttle, PhD [address] [phone] Thank you for attending the Psychology Welcome group! Social History Tobacco Use Types Packs/Day Years Used Date Smoking Tobacco: Never Assessed PHQ-2 Answer Date Recorded PHQ-2 score 0 07/29/2024 Area Deprivation Index Answer Date Chung rded National Score (1-100), lower number is lower ri sk 91 08/05/2024 State Score (1-10), lower number is lower risk 9 08/05/2024 Data from: https://www.neighborhoodatlas.[facility].edu/. Last address used for calculation [address] 08/05/2024 Comments Unknown Sex and Gender Information Value Date Recorded Sex Assigned at Female 07/29/2024 10:01 PM EST Legal Sex Female 9:57 AM EDT Gender Identity Female 07/29/2024 10:01 PM EST Sexual Orientation Straight 07/29/2024 10 :01 PM EST documented as of this encounter Plan of Treatment Not on file documented as of this encounter Visit Diagnoses Not on filedocumented in this encounter
--- OUTSIDE RECORDS SUMMARY | 2025-04-14 01:02 | XMS_ITS | Encounter Summary ---
Author Organization [facility] Address [address] [facility] [place] [address] Care Team Providers Care Manager Asset Management Name Role Phone Alfonzo Addison MD Primary Care Provider Encounter Details Date Type Department Care Team (Late st Contact Info) Description 05/20/2023 Abstract [facility] [address] [facility] [phone] Contreras Mock DO [address] [facility] [address] [place] [place], [place] [phone] Social History Tobacco Use Types Packs/Day Years [...] EDT Office Visit [facility] [address] [facility] [phone] Contreras Mock DO [address] [facility] [place] [address] documented as of this encounter Goals Goal Patient Goal Type Associated Problems Recent Progress Patient-Stated? Author Reminders Care Plan OB Reminders No Open Scheduling, Background documented as of this encounter Visit Diagnoses Not on filedocumented in this encounter Additional Health Concerns Active Problems Noted Date Diagnosed Date OB Reminders 05/11/2023 documented as of this encounter Care Teams Manager Asset Management Relationship Specialty Start Date End Date Alfonzo Addison MD [address] [place] [address] PCP - General Family Medicine 12/22/22 documented as of this encounter
--- OUTSIDE RECORDS SUMMARY | 2025-04-14 01:02 | XMS_ITS | Encounter Summary ---
Author Organization [facility] Address [address] [place] [address] Care Team Providers Care Market Analyst Name Role Phone Alfonzo Addison MD Primary Care Provider Encounter Details Date Type Department Care Team (Late st Contact Info) Description 01/14/2025 Abstract [facility] [address] [place] [phone] Contreras Mock DO [address] [facility] [address] [place] [place], [place] [phone] Social History Tobacco Use Types Packs/Day Years [...] Office Visit [facility] [address] [place] [address] Contreras Mock, DO [address] [facility] [place] [address] documented as of this encounter Goals Goal Patient Goal Type Associated Problems Recent Progress Patient-Stated? Author Reminders Care Plan OB Reminders No Open Scheduling, Background documented as of this encounter Visit Diagnoses Not on filedocumented in this encounter Additional Health Concerns Active Problems Noted Date Diagnosed Date OB Reminders 05/11/2023 documented as of this encounter Care Teams Market Analyst Relationship Specialty Start Date End Date Alfonzo Addison MD [facility] [place] [address] PCP - General Family Medicine 12/22/22 documented as of this encounter
--- OUTSIDE RECORDS SUMMARY | 2025-04-14 01:02 | XMS_ITS | CCD ---
Author Organization [facility]iniSyn[facility] Care Team Providers Care Information Security Architect Name Role Phone MORIAH BOND Unavailable Unavailable HOY, MORIAH Unavailable Unavailable SELF, REFERRED Unavailable Unavailable HOY MORIAH Unavailable Unavailable [facility] [place] Primary Care Unavailable EMILI [...] Referring Unavailable ALFONZO GUERRA Primary Care Unavailable MK ALYISON Referring Unavailable ALFONZO GUERRA Primary Care Unavailable ELLIOT MACK Attending Unavailable ALFONZO GUERRA Primary Care Unavailable OMA NOVAK Attending Unavailable ALFONZO GUERRA Referring Unavailable ALFONZO GUERRA Primary Care Unavailable JAK ANAYA Admitting Unavailable JAK ANAYA Attending Unavailable ALFONZO GUERRA Primary Care Unavailable CONTRERAS MOCK Referring Unavailable ALFONZO GUERRA Primary Care Unavailable YANELIS GARRIDO Attending Unavailable CONTRERAS MOCK Referring Unavailable ALFONZO GUERRA Primary Care Unavailable ALFONZO GUERRA Referring Unavailable ALFONZO GUERRA Primary Care Unavailable CONTRERAS MOCK Attending Unavailable CONTRERAS MOCK Attending Unavailable CONTRERAS MOCK Attending Unavailable EMILICONTRERAS Attending Unavailable EMILI, CONTRERAS Attending Unavailable EMILI, CONTRERAS Attending Unavailable Unavailable Primary Care Provider Unavailpari Guerra MD, Alfonzo Sumner Primary Care Provider [...] Sumner Primary Care Unavailable HOUSE, DO DINORAH Linda Attending Unavailable Veronica Singh APRN Primary Care Provider Veronica Singh APRN Attending Provider Migue Talavera MD Attending Provider Migue Talavera Attending Unavailable Migue Talavera Admitting Unavailable EMILI, CONTRERAS Attending Unavailable EMILI, CONTRERAS Attending Unavailable EMILI, CONTRERAS Attending Unavailable OLGA ESCOBAR Attending Unavailable Allergies Allergy Classification Reported Allergen(s) Allergy Type Date of Onset Reaction(s) Facility (2 sources) azithromycin Drug Allergy 0 [facility] Repository (3 sources) ketorolac; Translations: [Toradol] Drug Allergy 0 [facility] Repository (6 sources) traMADol [facility] (1 source) Iodine (And Iodine Containting Drugs) Drug allergy (disorder) 5 [facility] Repository (20 sources) Azithromycin; Translations: [AZITHROMYCIN] Drug Allergy 4 [facility] (18 sources) Ketorolac trometamol Allergy to substance 4 [facility] (20 sources) traMADol; Translations: [TRAMADOL] Drug Allergy 4 [facility] (18 sources) Other Propensity to adverse reactions 8 [facility] (20 sources) Contrast media; Translations: [DYE] Propensity to adverse reactions to drug (disorder) 8 [facility] Repository (20 sources) Ketorolac; Translations: [KETOROLAC] Drug Allergy 4 Hives [facility] Repository (1 source) Contrast media; Translations: [Contrast Dye] Propensity to adverse reactions to drug (disorder) [facility] Repository Medications Current Medications Medication Drug [...] a day. 10 capsule 0 06/05/2021 Active drospirenone 4 mg oral tablet (2 sources) Progestin Start: 01-19-2025 End: 04-13-2025 take 1 tablet by mouth once daily Drospirenone (Slynd) 4 MG tablet Indications: Pelvic pain in female , Hx of ovarian cyst , PCOS (polycystic ovarian syndrome) , Insulin resistance Take 1 tablet by mouth Daily 84 tablet 3 01/19/2025 04/13/2025 Active ferrous sulfate 325 mg oral tablet (17 sources) Start: 10-12-2023 End: 11-11-2023 take 1 tablet by mouth once daily at breakfast ferrous sulfate 325 (65 FE) mg tablet Take 1 tablet (325 mg total) by mouth daily with breakfast for 30 days. 30 tablet 10/12/2023 11/11/2023 Active ibuprofen 800 mg oral tablet (20 sources) Nonsteroidal Anti-inflammatory Drug Start: 03-29-2017 labetalol hydrochloride 200 mg oral tablet (20 sources) beta-Adrenergic Cheyanne Start: 10-03-2024 take 1 tablet by mouth once daily Start: 10-12-2023 take 2 tablets by [facility] every eight hours labetaloL (NORMODYNE) 300 mg [...] bedtime. 270 tablet 3 07/20/2023 07/19/2024 Active End: 06-29-2024 labetalol (Normodyne) 300 MG [...] Discontinued metFORMIN hydrochloride 500 mg oral tablet (16 sources) Biguanide Start: 10-03-2024 take 1 tablet by juany th once daily Start: 05-03-2024 End: 05-03-2025 take 1 tablet [...] take 1 capsule by mouth once daily take 1 capsule by mouth in the [...] Active phentermine hydrochloride 37.5 mg oral tablet (14 sources) Sympathomimetic Amine Anorectic Start: 05-30-2024 End: 01-03-2025 take 1 tablet by mouth before mealtime [...] by mouth in the morning. 0 Active Semaglutide (1 source) Start: 01-03-2025 venlafaxine 25 mg oral tablet (20 sources) Serotonin and Norepinephrine Reuptake Inhibitor Start: 10-03-2024 End: 01-03-2025 take 1 tablet by mouth once daily Start: 05-30-2024 End: 05-30-2025 take 1 capsule [...] Drug Class(es) Dates Sig (Normalized) Sig (Original) benzonatate 200 mg oral capsule (2 sources) Non-narcotic Antitussive Start: 12-21-2024 End: 01-03-2025 take 1 capsule by mouth three times daily as needed for cough Benzonatate 200 mg capsule Discontinued 200 MG PO Three times daily as needed for cough 30 December 21, 2024 12:00am January 03, 2025 11:05am buPROPion hydrochloride 100 mg oral tablet (1 source) Aminoketone End: 08-04-2023 take 3 tablets by mouth once daily buPROPion (WELLBUTRIN) 100 mg tablet Take 300 mg by mouth daily. 0 08/04/2023 Discontinued (Therapy completed) doxycycline monohydrate 100 mg oral tablet (2 sources) Tetracycline-class Drug Start: 12-21-2024 End: 01-03-2025 take 1 tablet by mouth twice daily Doxycycline Monohydrate 100 mg tablet Discontinued 100 MG PO Twice daily 14 December 21, 2024 12:00am January 03, 2025 11:05am escitalopram 10 mg oral tablet (20 sources) [...] Problem Date Documented Date Episodic/Chronic Abdominal pain (3 sources) Right upper quadrant pain; Translations: [Pain in female pelvis] Onset: 10-20-2023 01-19-2025 Episodic Anxiety disorders (20 sources) Anxiety; Translations: [Anxiety disorder, unspecified] Onset: 02-12-2023 02-12-2023 Chronic Asthma (18 sources) Asthma; Translations: [Unspecified asthma, uncomplicated] Onset: 02-12-2023 02-12-2023 Chronic Chronic obstructive pulmonary disease and bronchiectasis (4 sources) Bronchitis; Translations: [Bronchitis, not specified as acute or chronic] 12-21-2024 Episodic Diabetes mellitus without complication (2 sources) Impaired fasting glycemia; Translations: [Impaired fasting glucose] 01-03-2025 Episodic Esophageal disorders (20 sources) Gastroesophageal reflux disease; Translations: [Gastro-esophageal reflux disease without esophagitis] Onset: 02-12-2023 02-12-2023 Chronic Essential hypertension (20 sources) Essential hypertension; Translations: [Essential (primary) hypertension] Onset: 02-12-2023 02-12-2023 Chronic Headache; including migraine (18 sources) Migraine; Translations: [Migraine, unspecified, not intractable, [...] KNEE] Onset: 04-18-2017 Chronic Malaise and fatigue (7 sources) Fatigue; Translations: [Other fatigue] 10-03-2024 Episodic Miscellaneous mental health disorders (1 source) Psychosomatic factor in physical condition; Translations: [Psychological and behavioral factors associated with disorders or diseases classified elsewhere] 08-05-2024 Chronic Miscellaneous mental health disorders (6 sources) depression; Translations: [ depression] 05-03-2024 Episodic Mood disorders (20 sources) Depressive disorder; Translations: [Depression] Onset: 02-12-2023 [...] trimester] Onset: 08-04-2023 Episodic Other endocrine disorders (20 sources) Polycystic ovary syndrome; Translations: [Polycystic ovarian syndrome] Onset: 02-12-2023 02-12-2023 Chronic Other female genital disorders (2 sources) History of gynecological disorder; Translations: [Personal history of other diseases of the female genital tract] 01-19-2025 Episodic Other nutritional; endocrine; and metabolic disorders (18 sources) Morbid obesity; Translations: [Morbid (severe) obesity due to excess calories] Onset: 02-12-2023 02-12-2023 Chronic Other nutritional; endocrine; and metabolic disorders (6 sources) Insulin resistance; Translations: [Insulin resistance] 05-03-2024 Chronic Other nutritional; endocrine; and metabolic disorders (1 source) Obesity; Translations: [Obesity, unspecified] 08-05-2024 Chronic Other nutritional; endocrine; and metabolic disorders (6 sources) Body mass index 40+ - severely [...] 08-04-2023 08-18-2023 Episodic Other upper respiratory disease (18 sources) Seasonal allergic rhinitis; Translations: [Other seasonal allergic rhinitis] Onset: 02-12-2023 02-12-2023 Chronic Previous (1 source) Maternal care for unspecified type scar from previous delivery; Translations: [Maternal care for unspecified type scar from previous delivery] Onset: 09-27-2023 Episodic Residual codes; unclassified (2 sources) Family history of other specified conditions; Translations: [Family history of other specified conditions] Onset: 08-06-2023 Episodic Sprains and strains (3 sources) Sprain of knee; Translations: [Sprain of unspecified site of unspecified knee, initial encounter] 06-24-2023 Episodic Comment on above: Problem List clean-u p per request of Phys. EHR Cmte Thyroid disorders (17 sources) Hypothyroidism, unspecified; Translations: [Thyroid nodule] Onset: 06-19-2023 10-03-2024 Chronic Unclassified (2 sources) Unknown / UNK(Unknown) Onset: 04-18-2017 Unclassified (18 sources) OB Reminders Onset: 05-11-2023 05-11-2023 Past [...] trimester] Onset: 06-19-2023 Episodic Other complications of (13 sources) care status; Translations: [Maternal care for [...] Onset: 08-04-2023 08-04-2023 Episodic Residual codes; unclassified (18 sources) Insomnia; Translations: [Insomnia, unspecified] Onset: 02-12-2023 02-12-2023 Episodic Thyroid disorders (20 sources) Disorder of thyroid gland; Translations: [Disorder of thyroid, unspecified] 03-01-2021 Episodic Results Test Name Value Interpretation Reference Range Facility Basophils Auto (Bld) [#/Vol] Ordered By: Migue Talavera on 01-14-2025 Basophils (Bld) [#/Vol] 0.1 10 3/uL 0.0-0.1 [facility] Basophils/100 WBC Auto (Bld) Ordered By: Migue Talavera on 01-14-2025 Basophils/100 WBC (Bld) 0.8 % 0.2-2.0 [facility] Eosinophils/100 WBC Auto (Bl d)Ordered By: Migue Talavera on 01-14-2025 Eosinophils/100 WBC (Bld) 2.4 % 0.9-7.0 [facility] Erythrocyte distribution wid th Auto (RBC) [Ratio]Ordered By: Migue Talavear on 01-14-2025 Erythrocyte distribution width (RBC) [Ratio] 13.2 % 11.0-15.0 [facility] Estimated glomerular filtrat ion rate (GFR) non- AmericanOrdered By: Migue Talavera on 01-14-2025 GFR/1.73 sq M.predicted among non-blacks MDRD (S/P/Bld) [Vol rate/Area] mL/min/{1.73_m2} >=60 mL/min/1.7 3m 2 [facility] Globulin Calc (S) [Mass/Vol] Ordered By: Migue Talavera on 01-14-2025 Globulin (S) [Mass/Vol] 3.7 g/dL [facility] Hematocrit Auto (Bld) [Volum e fraction]Ordered By: Migue Talavera on 01-14-2025 Hematocrit (Bld) [Volume fraction] 38.3 % 36.0-48.0 [facility] Hemoglobin [Mass/volume] in BloodOrdered By: Migue Talavera on 01-14-2025 Hemoglobin (Bld) [Mass/Vol] 12.6 g/dL 12.0-16.0 [facility] Laboratory - Chemistry and C hemistry - challengeOrdered By: Migue Talavera on 01-14-2025 Bilirubin Ql (U) Negative NEGATIVE [facility] Glucose (U) [Mass/Vol] Negative NEGATIVE [facility] Ketones Ql (U) Negative NEGATIVE [facility] pH (U) 6.0 [pH] 5.0-9.0 [facility] Specific gravity (U) [Rel density] >=1.030 Abnormal 1.005-1.02 5 [facility] Urobilinogen Qn (U) 0.2 {Miguel Angel'U}/dL 0.2-1.0 [facility] Albumin [Mass/Vol] 3.3 g/dL Low 3.4-5.0 [facility] ALP [Catalytic activity/Vol] 60 U/L 46-116 [facility] ALT [Catalytic activity/Vol] 29 U/L 14-59 [facility] AST [Catalytic activity/Vol] 16 U/L 15-37 [facility] Bilirubin [Mass/Vol] 0.2 mg/dL 0.2-1.0 [facility] Calcium [Mass/Vol] 9.3 mg/dL 8.5-10.1 [facility] Chloride [Moles/Vol] 104 mmol/L 98-107 [facility] CO2 [Moles/Vol] 26.7 mmol/L 21.0-32.0 [facility] Creatinine [Mass/Vol] 0.88 mg/dL 0.55-1.02 [facility] GFR/1.73 sq M.predicted MDRD (S/P/Bld) [Vol rate/Area] mL/min/{1.73_m2} >=60 mL/min/1.7 3m 2 [facility] Glucose [Mass/Vol] 123 mg/dL High 74-106 [facility] Lipase [Catalytic activity/Vol] 29.0 U/L 16.0-77.0 [facility] Potassium [Moles/Vol] 3.8 mmol/L 3.5-5.1 [facility] Protein [Mass/Vol] 7.0 g/dL 6.4-8.2 [facility] Sodium [Moles/Vol] 141 mmol/L 136-145 [facility] Urea nitrogen [Mass/Vol] 15.0 mg/dL 7.0-18.0 [facility] Urea nitrogen/Creatinine [Mass ratio] 17.0 mg/mg [facility] Laboratory - Hematology and Cell countsOrdered By: Migue Talavera on 01-14-2025 Immature granulocytes/100 WBC (Bld) 0.3 % 0.0-0.5 [facility] Laboratory - Specimen inform ationOrdered By: Migue Talavera on 01-14-2025 Appearance (U) CLEAR CLEAR [facility] Color (U) LT. YELLOW YELLOW [facility] Laboratory - UrinalysisOrder ed By: Migue Talavera on 01-14-2025 Leukocyte esterase Test strip Ql (U) Negative NEGATIVE [facility] Mucus Ql (Urine sed) NONE SEEN NONE SEEN [facility] Nitrite Ql (U) Negative NEGATIVE [facility] Protein Ql (U) Negative NEG/TRACE [facility] Leukocytes [#/volume] correc reagan for nucleated erythrocytes in Blood by Automated counOrdered By: Migue Talavera on 01-14-2025 WBC corrected for nucl RBC Auto (Bld) [#/Vol] 13.4 10 3/uL High 4.0-11.0 [facility] Lymphocytes Auto (Bld) [#/Vo l]Ordered By: Migue Talavera on 01-14-2025 Lymphocytes (Bld) [#/Vol] 5.0 10 3/uL High 1.2-3.8 [facility] Lymphocytes/100 WBC Auto (Bl d)Ordered By: Migue Talavera on 01-14-2025 Lymphocytes/100 WBC (Bld) 37.5 % 20.5-60.0 [facility] MCH Auto (RBC) [Entitic mass ]Ordered By: Migue Talavera on 01-14-2025 MCH (RBC) [Entitic mass] 28.4 pg 26.7-34.0 [facility] MCHC Auto (RBC) [Mass/Vol]Or dered By: Migue Talavera on 01-14-2025 MCHC (RBC) [Mass/Vol] 32.9 g/dL 29.9-35.2 [facility] MCV Auto (RBC) [Entitic vol] Ordered By: Migue Talavera on 01-14-2025 MCV (RBC) [Entitic vol] 86.5 fL 81.0-99.0 [facility] Monocytes Auto (Bld) [#/Vol] Ordered By: Migue Talavera on 01-14-2025 Monocytes (Bld) [#/Vol] 0.7 10 3/uL 0.3-0.8 [facility] Monocytes/100 WBC Auto (Bld) Ordered By: Migue Talavera on 01-14-2025 Monocytes/100 WBC (Bld) 5.5 % 1.7-12.0 [facility] Neutrophils Auto (Bld) [#/Vo l]Ordered By: Migue Talavera on 01-14-2025 Neutrophils (Bld) [#/Vol] 7.1 10 3/uL High 1.4-6.5 [facility] Neutrophils/100 WBC Auto (Bl d)Ordered By: Migue Talavera on 01-14-2025 Neutrophils/100 WBC (Bld) 53.5 % 43.0-75.0 [facility] No Panel InformationOrdered By: Migue Talavera on 01-14-2025 Urine Bacteria MODERATE #/HPF Abnormal NONE SEEN [facility] Urine Calcium Oxalate Crystals FEW [facility] Urine Culture Reflexed YES-[facility] Urine Occult Blood Negative NEGATIVE [facility] Urine Other Casts NONE SEEN #/LPF NONE SEEN [facility] Urine Other Crystals Seen #/HPF Abnormal None Seen [facility] Urine RBC 0-2 #/HPF 0-2 [facility] Urine Squamous Epithelial Cells MANY #/LPF Abnormal NONE/RARE [facility] Urine WBC 0-2 #/HPF Abnormal NONE SEEN [facility] Eosinophils # (Auto) 0.3 10 3/uL 0.0-0.7 [facility] Immature Granulocyte # (Auto) 0.04 10 3/uL High 0.00-0.03 [facility] Platelet mean volume Auto (B ld) [Entitic vol]Ordered By: Migue Talavera on 01-14-2025 Platelet mean volume (Bld) [Entitic vol] 9.0 fL Low 9.5-13.5 [facility] Platelets Auto (Bld) [#/Vol] Ordered By: Migue Talavera on 01-14-2025 Platelets (Bld) [#/Vol] 383 10 3/uL 150-450 [facility] RBC Auto (Bld) [#/Vol]Ordere d By: Migue Talavera on 01-14-2025 RBC (Bld) [#/Vol] 4.43 10 6/uL 4.20-5.40 [facility] Serum or plasma albumin/glob ulin mass ratioOrdered By: Migue Talavera on 01-14-2025 Albumin/Globulin [Mass ratio] 0.9 {ratio} [facility] Serum or plasma anion gap de terminationOrdered By: Migue Talavera on 01-14-2025 Anion gap [Moles/Vol] 14.1 mmol/L [facility] Urine Cultureon 01-14-2025 Bacteria identified Cx Nom (U) 10,000 colonies/ml mixed bacterial skin contaminants 2 Days PERFORMED BY: [place] [address] PATHOLOGIST [employer]IM[employer] DEVON GARCIA M.D. Normal [facility] Comment on above: Performed By: #### C UU #### [address] HbA1c HPLC (Bld) [Mass fract ion]Ordered By: Veronica Singh on 01-03-2025 HbA1c (Bld) [Mass fraction] 6.1 % [facility] Influenza virus B Ag [Presen ce] in Upper respiratory specimen by Rapid immunoassayon 12-21-2024 FLUBV Ag IA.rapid Ql (Nph) Negative [facility] No Panel Informationon 12-21 Influenza Type A (Rapid) Negative [facility] POC SARS CoV-2 Antigen Negative [facility] Rad - Ultrasound Reporton Rad - Ultrasound Report [id number]-16-2024 Outside Records [id number]#[facility] Rad - Other Radiology Report on 08-16-2024 Rad - Other Radiology Report [id number]#[facility] Coding Summaryon 08-08-2024 Coding Summary HTMLBase 64 CvqhldnqGXp4yEq+PGhlYWQ+PE1 HSJWpS93zoUQshD2nA8VSQEcGFu cvNRMREBeRJpGfseWiGR1lyIKtT XJu IC8+VV0lRGQgJxlbhDHve4A0eNN 5J19bop1nKJvtsOQ6WOLfVpDwyr ilk2egwCm2TAnvQuhgQiQf AUVrmL58SYN8qO22Sy90sKYmiBH jb5byoNy4XiXvQGCpTUJ5uLhyJU vyb4AqKFMzN88qbAShc2C8 ALAieKglaTAsMeZyaVV3sH9rWZt apaulk6vnyelpYno0dy68iUPll4 E4bSX5R0ZelbY8VQWfaUWm IoywqKKSeT7fjbhrx9tcjhinKaN rNBQcHOl7CRs6PWIfaKphNtGsOX 03YLE1HEFnwfMgH0WwXXWz pMdkVcR6w6Q7Dt5NU2IQYhlcY7I NTUFSWTwvdGQ+WG61bd91L0FfLq avLao7XJJoWGD2hHL2qO1x WYVsWPiai4J8iEM3P0BznuBghz8 in6qyCHMmQBbcI36uxXFdr8L8XQ YkiEA8AHBrtDkePgMsyV23 Oyc+ERKueWmgg9WtFxlyu8ykp3f ryPk8DuliLMDbnmFykGzmOHG6u8 DdIy8oKHNfcFD4wCG7hA8r LwZtGlU8OOcsI502KoXkaWQdWvn bZ61sF0XjaHR+FOWkYcb6UZNjiZ ukAZ9kC2BqWFJlfcrycSPs jXwyFJ0yMJRxqhcoMVYxwY7yJVD gT2i8RkUvQeX4OIhaG9IuBOWeti dxMc79dD7wJvZjMrK8IKyz F9CsxmL1EGGgbEAeXTqyYVZ4R16 ut7Z3DIOjRZIiNOO0lGT0xA5qzT lnbjogbGVmdDsgdmVydGlj MTdrJBfsA867YVOlzGbdDhVoLXe uZyBEYXRlOiAgMDEvMjcvMjAyNT wvdGQ+KNRqVJZ8vIfvJIVa vFAtRFdiSf5agMcnfGirBE4nLGZ uxqjyZMTlfC3gOIJxgKVwqAxzNN 9pEBZufkare290ZiQaHLD3 GLPptTNzV2YqlZ1pRbYlNGZjWMV xF0SagSTcEOtpK718HTtrGcL8QH WwhjQvL7TyFTXjsKspOnC7 l6B0Dl7Zl8XbuuueR9JwhHTsCuN bBugbRSn2T6ScIwgabTD+PC90YW LzWX46WMu9PPO6rNpdHZlk TAWqH9RnvN0xVhZyGVUhOOIxAgv +PHRhYmxlIHdpZHRoPScxMDAlJy YmiKdsBR6oCl4xULHbEOVw fHjdvYHnQhObg1xmEKIcQEhrPB4 blTpgE7JdrZA0SGMsh6x4Bd09X6 1cD8DrhYZ+KXOksDK5oTX8 oZ9kQbJcBeM4WNsnS476UnFswQZ dYlsan5els4fdoCo2KoS4KURxvp LknMrfOOM2s5JgSc65J96m IHdpZHRoPSIxNSUiIHZhbGlnbj0 gsM4kQn2+HPNsmSJ9uZH0qS7vEt BfXfM3MDsnR040BdNfcQJl Mzayl4fho4izuIy3YzTiOXZmexC cjFdgLGF8a8UkFa28C3OtuQfsz7 EvHsj4ow48jDJkj4C7gDL1 J6GdPTNbobyxgALnjPpmUO5xQIF zrzkwAXJefW9jCQYuJ5a1WvFrKb V7YGqmK6HwxjT3VBMktEGn LEKzqRBYuS9xuxpoq5xvvtrdAaJ pATTcPGh3XZh5URZebKnrJgXpMG Q2PbK2XNT9aUBrfG9pdYye auqucD0xAai+YIQ8iEErhKHFSW9 lOjwvdGQ+UPNfRDO7iWjeAOawLQ JeyH8rFLCbK5t8WdNzBoM0 AAwmO6TgcoB1WMUeyYJmZUXzfUC QzO6thsgjb1rfguuwHlJcJGFwOX g8HPy6OBPmiWsfKxTzWTB4 BsB6XGN7hZGfhV3dwAoyenhpqT7 wOyc+RnligScoAYP6BLq3F2OfCq q7SPCbqVdeHM0iaPNiGPps Gy2fdUjkcLwiKQ7lRBYeyfzrt30 3WaIks5bwQPFypEHoQFcyMEK7P2 4zi3B9YAGgSSAwFHY3sOP0 gM7slMonmgqdtWJfeNohzaMinOo yPNgkMUnxT312UZOlxNreFoFcOQ d5X3OpNdu9ECNghPkuQK8q tLLyQPsvJp2daAotcZkeJR9aOIM rzgvio268KrJjp8otJROzjQRlJK upGCL7M55vl5U6SOCzWSRh ZZN4wQF6dR8nyLmxvbbykZOjsWr gsgDbjZzuLIbnRFrvX730PTVtoH vnGkNvdFk4T2JpXyh9FICg gQjhVH1xiVKqPVthUe9ssOxfcZb nWC6vOCXyxfqsv768DrKfz0gjMT PnzJGjEWfaRPA1H03hm9D5 EGLhQVLeRFF8hPK0gY0evBnivfj gbGVmdDsgdmVydGljYWwtYWxpZ2 46IHRvcDsnPlBhdGllbnQg KPbsJVe0U2SiLfkjeMH+BL49JGO tCB74vGCjwQAzg6euwMe3MuDwFZ LyTQA2wVgvFZewg9ZkUKBh B67tjJEwe1M6SSOdvYzxgVCrCfK sxDX9uN8rSNzvbituv2oglrumJz tds1qvwc07gB56O93qVHgj DJBwREGoLIJgFKCixZgpin3nnL5 wIi8+ERQneEF4qSX0eR0dBVVjWd T7RFcpG076KsPvsWZrThbz k7kqs1bitXf6VgB9VLCgycNpoWr iTKD6q2VoLh91L07pOSzgWZHzHA FyYADuJYMfnZnsyy5oeF6w Ii8+ZXEbdUT8xLE3xK3vPbFmRtE 6USktH260WlWtdVCiLqorW45sV3 JvdXA+ZKPxAhp3RFHenScx IT0xyNYqGHvwIg6hNCW2KjUnLxG jODznU1OfZRGaduveifugmOA6MM ToWJFkvL76Qc8efSicVFJa zBVQtD3srszwh1fhiqpsBrCwZBY fYIx6ARv3UMKpqEwlBeOsAXU2Cj X5UFM1tKWbbM6qnDdqitvo sY7sE1KyYRLrnknaXb80tO3eHhY zBuB5AQweOsr+Z4fYF9rDOtfeIK ZCM3YiIH2FHG37GM44eOXr d5A5lNW9V8YsSKOqnhnphunwsJP 2BAVmUNRsxB58sJTzDLzgVo4ym7 F7h126WRCdBLTdgA23Eg4t bOwzSXTcdBNWmT7eunazt3enakl tAvBfAKShOUk4CAz9XORdtXkrJz AkRJI0AnK1TWA3nWJlrJ2g oGuuopzcgT8mGlz+MDMvMTIvMTk 5NzwvdGQ+HHJbTNW8qJtpHObaYQ RbdG4iQAGkV9v7HwDbKwJ9 AEapX7FwYBYbmnmoPn17dX5xZlH bBdQ7VAscH0RspvF8DSAajXYsHL cyEQE4K64ma4B0RKPqVSFn OBE3xMC3fV3wqOmjpdjhvSGqvHt vfwRpzMzpJPavYKloA714RWChlZ oxVfW9VHmlHUXiXB15CV31 uXBbe0U4nVF1H8WiKPIkfufyvzb ycMK3TYGlJDVqzF56gOKlQQhsOp 2kp2S0a822IZNpGOEvfH23 Aa7xgVbwASLbwOXJzX4ahavts4f bemecOgXiYBDcQDw6OZa8ABZhiL fpViHpWZF0MyP0CMM0eHVn uR5duTesnufveH4fRxx+RkVNQUx YYN15ZR60lMKsa3Q1rVK9T8WiFL VbovgfvknxsWS3QWMxVCUy hX62mHTwOOogQg4xd4X1t279KNL yHMLwpR15Tr9tmFmiXXAeoOEAvC 7fjkpti9istcwhUcRoRSYx SDo7BZh1XYCmuSnaGeBdQII1TaC 6UNA0jLRafR1vfDgkuartnU8dVb c+R5F2V1WrDuaavYO+PC90 LNVgDZ93dTPcvQNom8ftxTs4HyO uAPNyIEZ0qKgqBKhle8IsMRDmN1 8vtVAsm4P0XCQweIfimVJz EaUncDH9bL8wZSutngsvk0xfdww pBefqs0btvd87nC00U63hILgwCH GwLSCsHCIvHGCwkRdnte9o yV3zCn4+NCXffTO2rWO5xT4iElV iHtV8RZohK964PiUrbOKuAdrpu2 ipg9xfjSu6LzFvDOSljkIb uYrgTRQ2i7ZdVq12Y53uAJwuSVQ eWQKoSCStNTRyiZqkcr2ejD1mIg 8+QP1jb3pivw11kQ21iMH+ CUQnYHZ6wNifQXvpZKKrkI2aFVx zQlW7UQRlFtRlpZ53fPXiRBhmZg 3qqExdsRnbSO0dWYJfzaqu m190RmYme5gtMPEfmGTrEMkiYYX 1F21bk0K0VUXvMGNpFTW3jJA1cG 1hbGlnbjogbGVmdDsgdmVy vWygVGicWCjzZ627QNDpkYaiHtC faQJzD5iwnnIGTU2cVhqsrEI+PH HwDRI6xVdoOQyfMUBpxX9l VBXaT5z2BsRjOqR5IOvqS6FohvV 2YFJvsXGuYEWazZXEmM1xasgho0 dtwnqnGmIiJTWbBBk9GQx4 EFVurCaoCrMgQDT8YhE6AAZ9wWP brE9maUfygspanP7xOkf+RklOOj wvdGQ+AWOqEGS5pUprVUsp RCSveE6iNPPgB6p1OaNoYrK8HTo jK4JoomG5DVAxhVHjXWXvnKUGfX 8bjvkhk8qlskfiXgYrPZIf WBw8QTr9YQTemLbcNpQoVCH8ZdX 9CWK4tTXcwI5blYhwhrhoqY3uDu c+TVJOOjwvdGQ+PHRkIHN0 qMnxFQzwPVRscP6vKNNfU5u4OmI vNzN8HIdjB1ZcdaI6WZYxxKKxPL QccNLOqI9ouwszp9jaqyzh ZzFlVSWuXPp4EFy5VJAmlSwpUlG zPGD6WwY4UYT2zEOwsX6vuMjdwx imdV0aElo+EIO0PWR0RE73 QO80A0EpGehxqQReaFD+PHRhYmx lIHdpZHRoPScxMDAlJyBzdHlsZT 5cOn2uSOVzXFUwmBnzpHHd OiB (more content not included)... [facility] Reminder Messageson 01-23-20 25 Reminder Messages - From: DINORAH GILBERT DO To: [facility] Clinical Pool ([email or web address]); Sent: 08/04/2024 11:14:17 EST ! Show up: [...] % (14 - 48) 08/02/2024 11:54 Auto [place] % 6 % (1 - 12) 08/02/2024 11:54 Auto Eos % 2.1 % (0.9 - 4.0) 08/02/2024 11:54 Auto Baso % 0.9 % (0.2 - 2.0) 08/02/2024 11:54 Neut Abs# 6.5 x103/mcL (1.5 - 9.2) 08/02/2024 11:54 Lymph Abs# (H) 3.7 x103/mcL (1.3 - 2.9) 08/02/2024 11:54 [place] Abs# 0.7 x103/mcL (0.0 - 0.8) 08/02/2024 11:54 Eos Abs# 0.2 x103/mcL (0.0 - 0.4) 08/02/2024 11:54 Baso Abs# 0.1 x103/mcL (0.0 - 0.2) pt notified Normal [facility] .Auto Diff 1on 08-02-2024 Auto [place] % 6 % Normal 1-12 [facility] Comment on above: Performed By: #### [id number] #### [facility] (DEFAULT) [address] [place] [address] 74098 Baso Abs# 0.1 x10 Normal 0.0-0.2 [facility] Comment on above: Performed By: #### 7 719306, 38926301, 25842789, [id number], 4429204 #### [facility] (DEFAULT) [address] [place] [address] 36076 Basophils/100 WBC (Bld) 0.9 % Normal 0.2-2.0 [facility] Comment on above: Performed By: #### 7 283431, 79145966, 78551941, [id number], 0105838 #### [facility] (DEFAULT) [address] [place] [address] 53638 Eos Abs# 0.2 x10 Normal 0.0-0.4 [facility] Comment on above: Performed By: #### 7 391503, 05853473, 75176679, 3881052038, 9105466 #### [facility] (DEFAULT) [address] [place] [address] 14874 Eosinophils/100 WBC (Bld) 2.1 % Normal 0.9-4.0 [facility] Comment on above: Performed By: #### 7 125197, 30132029, 50551585, 7284710717, 7756735 #### [facility] (DEFAULT) [address] [place] [address] Lymph Abs# 3.7 x10 High 1.3-2.9 [facility] Comment on above: Performed By: #### 7 419399, 74187549, 71307294, 4141722703, 5411792 #### [facility] (DEFAULT) [address] [place] [address] Lymphocytes/100 WBC (Bld) 33 % Normal 14-48 [facility] Comment on above: Performed By: #### 7 535740, 13701568, 58180273, 5128345928, 5254966 #### [facility] (DEFAULT) [address] [place] [address] [place] Abs# 0.7 x10 Normal 0.0-0.8 [facility] Comment on above: Performed By: #### 7 732541, 71653985, 78842942, 2733224534, 6797226 #### [facility] (DEFAULT) [address] [place] [address] Neut Abs# 6.5 x10 Normal 1.5-9.2 [facility] Comment on above: Performed By: #### 7 336787, 75722158, 37434994, 8475650111, 9856242 #### [facility] (DEFAULT) [address] [place] [address] Neutrophils/100 WBC (Bld) 58 % Normal 44-88 [facility] Comment on above: Performed By: #### 7 681532, 84684776, 59197717, 3281535831, 3404799 #### [facility] (DEFAULT) [address] [place] [address] CBC w/ Auto Diffon 5 Erythrocyte distribution width (RBC) [Ratio] 13.8 % Normal 11.5-15.0 [facility] Comment on above: Performed By: #### 7 893514, 12803955, 43422404, 3977531048, 9154341 #### [facility] (DEFAULT) [address] [place] [address] 83735 Hematocrit (Bld) [Volume fraction] 38.6 % Normal 33.7-40.4 [facility] Comment on above: Performed By: #### 7 536277, 62693967, 78423322, 5910014660, 0102511 #### [facility] (DEFAULT) [address] [place] [address] 30478 Hemoglobin (Bld) [Mass/Vol] 12.9 g/dL Normal 11.3-15.9 [facility] Comment on above: Performed By: #### 7 908843, 99325372, 42538796, 6619639778, 4733555 #### [facility] (DEFAULT) [address] [place] [address] Man Diff? Auto Invalid Interpretation Code [facility] Comment on above: Performed By: #### 7 079528, 57386110, 05759082, 8589241337, 1207826 #### [facility] (DEFAULT) [address] [place] [address] 15532 MCH (RBC) [Entitic mass] 28 pg Normal 24-34 [facility] Comment on above: Performed By: #### 7 611619, 11896956, 03671627, 8742421770, 0557953 #### [facility] (DEFAULT) [address] [place] [address] 00035 MCHC (RBC) [Mass/Vol] 34 g/dL Normal 26-37 [facility] Comment on above: Performed By: #### 7 426983, 62640098, 66698390, 8153270258, 2330688 #### [facility] (DEFAULT) [address] [place] [address] 49177 MCV (RBC) [Entitic vol] 85 fL Normal 81-100 [facility] Comment on above: Performed By: #### 7 857976, 41565189, 91059748, 9957523733, 0192244 #### [facility] (DEFAULT) [address] [place] [address] 74876 Platelet 439 x10 High 138-427 [facility] Comment on above: Performed By: #### 7 086777, 44354378, 39039439, 7234214095, 5273306 #### [facility] (DEFAULT) [address] [place] [address] 13533 Platelet mean volume (Bld) [Entitic vol] 7.0 fL Normal 6.3-10.2 [facility] Comment on above: Performed By: #### 7 317402, 49215465, 43596603, 1230884925, 7807791 #### [facility] (DEFAULT) [address] [place] [address] 15096 RBC 4.56 x10 Normal 3.70-5.30 [facility] Comment on above: Performed By: #### 7 044796, 28597489, 54018611, 7757400371, 1920551 #### [facility] (DEFAULT) [address] [place] [address] WBC 11.1 x10 High 3.5-10.5 [facility] Comment on above: Performed By: #### 7 442930, 66064955, 53206305, 1661297822, 0064705 #### [facility] (DEFAULT) [address] [place] [address] 68973 CMP Standardon 08-02-2024 eGFR Non AA >60 Invalid Interpretation Code [facility] Comment on above: Performed By: #### 7 893809, 47790738, 16501474, 1797685618, 0261264 #### [facility] (DEFAULT) [address] [place] [address] 31657 eGFR AA >60 Invalid Interpretation Code [facility] Comment on above: Performed By: #### 7 640602, 87403778, 71941963, 0295956258, 0014805 #### [facility] (DEFAULT) [address] [place] [address] 68892 Albumin [Mass/Vol] 3.8 g/dL Normal 3.5-5.0 [facility] Comment on above: Performed By: #### 7 343649, 41391980, 91275435, 1364567944, 2851694 #### [facility] (DEFAULT) [address] [place] [address] Albumin/Globulin [Mass ratio] 1.1 {ratio} Low 1.4-2.6 [facility] Comment on above: Performed By: #### 7 046290, 58631596, 32992176, 3706537262, 0181356 #### [facility] (DEFAULT) [address] [place] [address] 13470 Alk Phos 47 IU/L Normal 32-91 [facility] Comment on above: Performed By: #### 7 090529, 37988393, 36584106, 6594316552, 2864924 #### [facility] (DEFAULT) [address] [place] [address] 57388 ALT [Catalytic activity/Vol] 21.0 U/L Normal 14.0-54.0 [facility] Comment on above: Performed By: #### 7 000098, 83714846, 33073300, 9690164300, 4326228 #### [facility] (DEFAULT) [address] [place] [address] Anion gap [Moles/Vol] 13.7 mmol/L Normal 5.0-19.0 [facility] Comment on above: Performed By: #### 7 911491, 94244119, 72928314, 5282735299, 6498846 #### [facility] (DEFAULT) [address] [place] [address] AST [Catalytic activity/Vol] 22 U/L Normal 15-41 [facility] Comment on above: Performed By: #### 7 170546, 59579657, 72216342, 7713764495, 0168734 #### [facility] (DEFAULT) [address] [place] [address] 71508 Bili Total 0.4 mg/dL Normal 0.3-1.2 [facility] Comment on above: Performed By: #### 7 659713, 31964102, 78664132, 1167939874, 6015163 #### [facility] (DEFAULT) [address] [place] [address] 50924 Calcium [Mass/Vol] 8.9 mg/dL Normal 8.9-10.3 [facility] Comment on above: Performed By: #### 7 533667, 76829051, 15033837, 1099226933, 0090281 #### [facility] (DEFAULT) [address] [place] [address] 34852 Chloride [Moles/Vol] 102 mmol/L Normal 101-111 [facility] Comment on above: Performed By: #### 7 956563, 07450898, 62858071, 5730075586, 5913452 #### [facility] (DEFAULT) [address] [place] [address] 14837 CO2 [Moles/Vol] 24 mmol/L Normal 21-32 [facility] Comment on above: Performed By: #### 7 003126, 36370517, 62761003, 9868762905, 5071941 #### [facility] (DEFAULT) [address] [place] [address] 80755 Creatinine [Mass/Vol] 0.64 mg/dL Normal 0.60-1.30 [facility] Comment on above: Performed By: #### 7 598961, 69029734, 21520065, 3682936768, 5980309 #### [facility] (DEFAULT) [address] [place] [address] 85630 Globulin (S) [Mass/Vol] 3.3 g/dL Normal 1.5-4.3 [facility] Comment on above: Performed By: #### 7 204021, 84422392, 54355165, 6836081257, 8864040 #### [facility] (DEFAULT) [address] [place] [address] 89594 Glucose [Mass/Vol] 97.0 mg/dL Normal 74.0-118.0 [facility] Comment on above: Performed By: #### 7 852700, 16182005, 07342211, 5231795076, 6161264 #### [facility] (DEFAULT) [address] [place] [address] 60719 Osmolality 272 mOsm/L Invalid Interpretation Code [facility] Comment on above: Performed By: #### 7 982004, 88779035, 15312656, 2645764561, 8098512 #### [facility] (DEFAULT) [address] [place] [address] 21990 Potassium [Moles/Vol] 3.7 mmol/L Normal 3.6-5.1 [facility] Comment on above: Performed By: #### 7 920679, 19728482, 05371311, 2813711142, 1427394 #### [facility] (DEFAULT) [address] [place] [address] 76185 Protein [Mass/Vol] 7.1 g/dL Normal 6.5-8.1 [facility] Comment on above: Performed By: #### 7 084411, 13904970, 10334432, 9598035347, 9270059 #### [facility] (DEFAULT) [address] [place] [address] 21771 Sodium [Moles/Vol] 136.0 mmol/L Normal 136.0-144 . 0 [facility] Comment on above: Performed By: #### 7 886804, 43910801, 66642968, 1421165636, 2748537 #### [facility] (DEFAULT) [address] [place] [address] 71685 Urea nitrogen [Mass/Vol] 12 mg/dL Normal 8-26 [facility] Comment on above: Performed By: #### 7 824005, 65835920, 18824447, 2173102553, 0227384 #### [facility] (DEFAULT) [address] [place] [address] 28359 Urea nitrogen/Creatinine [Mass ratio] 18.7 mg/mg High 4.6-16.2 [facility] Comment on above: Performed By: #### 7 423420, 20526916, 37739656, 1634593813, 8237729 #### [facility] (DEFAULT) [address] [place] [address] 37755 T4, Totalon 08-02-2024 T4 [Mass/Vol] 8.36 ug/dL Normal 6.09-12.23 [facility] Comment on above: Performed By: #### 7 587997, 35816110, 39583097, 0385438289, 0862566 #### [facility] (DEFAULT) [address] [place] [address] 81929 TSHon 08-02-2024 TSH Qn 4.05 m[IU]/L Normal 0.45-5.33 [facility] Comment on above: Performed By: #### 7 250386, 40524557, 26393927, 3639359506, 1664103 #### [facility] (DEFAULT) [address] [place] [address] Outside Recordson 06-06-2024 Outside Records [id number]#1.00[facility] - Other Radiology Report on 06-06-2024 Rad - Other Radiology Report [id number]#1.00[facility] IGP,APTIMA HPV,AGE GDLNon AGE GDLN ACOG TESTING Note . [facility] Comment on above: TESTS RESULT FLAG UN ITS REF RANGE LAB Clinician Provided Cytology Information Source.............Cervix;Endocervix No. of containers..01 ThinPrep Vial Age Algo ACOG Arsenio... FLAG LEGEND: L-Low Normal,H-High Normal,LL-Alert Low,HH-Alert High <-Panic Low,>-Panic High,A-Abnormal,AA-Critical Abnormal Performed at: 01 =[facility] [place] [address] Megha Almaguer MD, IGP, RFX APTIMA HPV ASCU Note . [facility] Comment on above: TESTS RESULT FLAG UN ITS REF RANGE LAB DIAGNOSIS: 02 NEGATIVE FOR INTRAEPITHELIAL LESION OR MALIGNANCY. Specimen adequacy: 02 Satisfactory for evaluation. No endocervical component is identified. Performed by: 02 Ana Werner, Inspection Clerk ([facility]) . 02 Note: Note 02 The Pap smear is a screening test designed to aid in the detection of premalignant and malignant conditions of the uterine cervix. It is not a diagnostic procedure and should not be used as the sole means of detecting cervical cancer. Both false-positive and false-negative reports do occur. Test Methodology: Note 02 The [employer](R) Football Pad Repairer was unable to read this specimen. Therefore a manual review was performed. FLAG LEGEND: L-Low Normal,H-High Normal,LL-Alert Low,HH-Alert High <-Panic Low,>-Panic High,A-Abnormal,AA-Critical Abnormal Performed at: 02 WB [facility] [address] [place] [address] Megha Almaguer MD, . 02 The HPV DNA reflex criteria were not met with this specimen result therefore, no HPV testing was performed. The HPV DNA reflex criteria were not met with this specimen result therefore, no HPV testing was performed. Performed at: =G - [facility] [address], [place] [id number] Sales Representative Printing: Megha Almaguer MD, Phone: [phone] Performed at: - [facility] [address] [place], [place] [id number] Sales Representative Printing: Megha Almaguer MD, Phone: [phone] BRUSH-SPATULA CERVIX ENDOCERVIX [facility] Progress Note - Nurseon 07- Progress Note - Nurse Patient presents i n office today for weight check after one [...] on: 02/09/2024 08:48 EDT] Sindy Cormier Normal [facility] CBC AND AUTO DIFFon 10-20-19 24 ABSOLUTE BASOPHIL 0.1 X10E9/L Normal 0.0-0.2 [facility] Comment on above: Performed By: #### U PCR, DSU #### [facility] ([id number]) [address] [place] [address] ABSOLUTE NEUTROPHIL 8.0 X10E9/L High 1.5-6.6 [facility] Comment on above: Performed By: #### U PCR, DSU #### [facility] ([id number]) [address] [place] [address] Basophils/100 WBC (Bld) 0.9 % Normal [facility] Comment on above: Performed By: #### U PCR, DSU #### [facility] ([id number]) [address] [place] [address] Eosinophils (Bld) [#/Vol] 0.2 10*3/uL Normal 0.0-0.4 [facility] Comment on above: Performed By: #### U PCR, DSU #### [facility] ([id number]) [address] [place] [address] Eosinophils/100 WBC (Bld) 1.5 % Normal [facility] Comment on above: Performed By: #### U PCR, DSU #### [facility] ([id number]) [address], [facility] [address] [place] [address] Erythrocyte distribution width (RBC) [Ratio] 13.6 % Normal 11.5-15.0 [facility] Comment on above: Performed By: #### U PCR, DSU #### [facility] ([id number]) [address], [address] [place] [address] Hematocrit (Bld) [Volume fraction] 36.2 % Normal 35-47 [facility] Comment on above: Performed By: #### U PCR, DSU #### [facility] ([id number]) [address], [address] [place] [address] Hemoglobin (Bld) [Mass/Vol] 12.1 g/dL Normal 11.7-15.5 [facility] Comment on above: Performed By: #### U PCR, DSU #### [facility] ([id number]) [address], [facility] [address] [place] [address] Lymphocytes (Bld) [#/Vol] 3.0 10*3/uL Normal 1.0-3.5 [facility] Comment on above: Performed By: #### U PCR, DSU #### [facility] ([id number]) [address], [address] [place] [address] Lymphocytes/100 WBC (Bld) 25.3 % Normal [facility] Comment on above: Performed By: #### U PCR, DSU #### [facility] ([id number]) [address], [address] [place] [address] MCH (RBC) [Entitic mass] 30.2 pg Normal 27-34 [facility] Comment on above: Performed By: #### U PCR, DSU #### [facility] ([id number]) [address], [address] [place] [address] MCHC (RBC) [Mass/Vol] 33.4 g/dL Normal 32-36 [facility] Comment on above: Performed By: #### U PCR, DSU #### [facility] ([id number]) [address], [address] [place] [address] MCV (RBC) [Entitic vol] 91 fL Normal 80-100 [facility] Comment on above: Performed By: #### U PCR, DSU #### [facility] ([id number]) [address], [address] [place] [address] Monocytes (Bld) [#/Vol] 0.6 10*3/uL Normal 0-0.9 [facility] Comment on above: Performed By: #### U PCR, DSU #### [facility] ([id number]) [address], [address] [place] [address] Monocytes/100 WBC (Bld) 5.1 % Normal [facility] Comment on above: Performed By: #### U PCR, DSU #### [facility] ([id number]) [address], [address] [place] [address] Neutrophils/100 WBC (Bld) 67.2 % Normal [facility] Comment on above: Performed By: #### U PCR, DSU #### [facility] ([id number]) [address], [address] [place] [address] Platelet mean volume (Bld) [Entitic vol] 7.2 fL Normal 7-12 [facility] Comment on above: Performed By: #### U PCR, DSU #### [facility] ([id number]) [address], [address] [place] [address] Platelets (Bld) [#/Vol] 423 10*3/uL Normal 150-450 [facility] Comment on above: Performed By: #### U PCR, DSU #### [facility] ([id number]) [address], [address] [place] [address] RBC COUNT 4.00 X10E12/L Normal 3.80-5.20 [facility] Comment on above: Performed By: #### U PCR, DSU #### [facility] ([id number]) [address], [address] [place] [address] WBC (Bld) [#/Vol] 12.0 10*3/uL High 4.0-11.0 [facility] Comment on above: Performed By: #### U PCR, DSU #### [facility] ([id number]) [address], [address] [place] [address] COMPREHENSIVE METABOLIC PANE Yasmani 10-20-2023 Albumin [Mass/Vol] 3.7 g/dL Normal 3.2-5.3 [facility] Comment on above: Performed By: #### U PCR, DSU #### [facility] ([id number]) [address], [address] [place] [address] ALP [Catalytic activity/Vol] 61 U/L Normal 39-130 [facility] Comment on above: Performed By: #### U PCR, DSU #### [facility] ([id number]) [address], [address] [place] [address] ALT [Catalytic activity/Vol] 17 U/L Normal 0-31 [facility] Comment on above: Performed By: #### U PCR, DSU #### [facility] ([id number]) [address], [address] [place] [address] Anion gap [Moles/Vol] 10 mmol/L Normal 5-15 [facility] Comment on above: Performed By: #### U PCR, DSU #### [facility] ([id number]) [address], [address] [place] [address] AST [Catalytic activity/Vol] 17 U/L Normal 0-41 [facility] Comment on above: Performed By: #### U PCR, DSU #### [facility] ([id number]) [address], [address] [place] [address] Bilirubin [Mass/Vol] 0.3 mg/dL Normal 0.3-1.2 [facility] Comment on above: Performed By: #### U PCR, DSU #### [facility] ([id number]) [address], [address] [place] [address] Calcium [Mass/Vol] 9.1 mg/dL Normal 8.5-10.5 [facility] Comment on above: Performed By: #### U PCR, DSU #### [facility] ([id number]) [address], [address] [place] [address] Chloride [Moles/Vol] 111 mmol/L High 98-109 [facility] Comment on above: Performed By: #### U PCR, DSU #### [facility] ([id number]) [address], [address] [place] [address] CO2 [Moles/Vol] 23 mmol/L Normal 22-32 [facility] Comment on above: Performed By: #### U PCR, DSU #### [facility] ([id number]) [address], [address] [place] [address] Creatinine [Mass/Vol] 0.80 mg/dL Normal 0.40-1.00 [facility] Comment on above: Result Comment: METH OD TRACEABLE TO IDMS STANDARD Performed By: #### U PCR, DSU #### [facility] ([id number]) [address], [address] [place] [address] eGFR (CKD-EPI) NON-RACE DEPENDENT >90 Normal >59 [facility] Comment on above: Result Comment: Reported eGFR is based on the CKD-EPI 2020 equation that does not use a race coefficient. Performed By: #### U PCR, DSU #### [facility] ([id number]) [address], [address] [place] [address] Glucose [Mass/Vol] 95 mg/dL Normal 65-99 [facility] Comment on above: Performed By: #### U PCR, DSU #### [facility] ([id number]) [address], [address] [place] [address] Potassium [Moles/Vol] 3.7 mmol/L Normal 3.5-5.0 [facility] Comment on above: Performed By: #### U PCR, DSU #### [facility] ([id number]) [address], [address] [place] [address] Protein [Mass/Vol] 6.7 g/dL Normal 6.0-8.0 [facility] Comment on above: Performed By: #### U PCR, DSU #### [facility] ([id number]) [address] [address] [place] [address] Sodium [Moles/Vol] 144 mmol/L Normal 134-146 [facility] Comment on above: Performed By: #### U PCR, DSU #### [facility] ([id number]) [address] [address] [place] [address] Urea nitrogen [Mass/Vol] 18 mg/dL Normal 5-23 [facility] Comment on above: Performed By: #### U PCR, DSU #### [facility] ([id number]) [address], [address] [place] [address] LDH [Catalytic activity/Vol] on 10-20-2023 LDH 152 U/L Normal 100-235 [facility] Comment on above: Performed By: #### U PCR, DSU #### [facility] ([id number]) [address], [address] [place] [address] URIC ACIDon 10-20-2023 Urate [Mass/Vol] 7.3 mg/dL High 2.6-7.2 [facility] Comment on above: Performed By: #### U PCR, DSU #### [facility] ([id number]) [address], [address] [place] [address] CBC AND AUTO DIFFon 10-11-19 ABSOLUTE BASOPHIL 0.0 X10E9/L Normal 0.0-0.2 [facility] Comment on above: Performed By: #### U PCR, DSU #### [facility] ([id number]) [address], [address] [place] [address] ABSOLUTE NEUTROPHIL 14.0 X10E9/L High 1.5-6.6 [facility] Comment on above: Performed By: #### U PCR, DSU #### [facility] ([id number]) [address], [address] [place] [address] Basophils/100 WBC (Bld) 0.2 % Normal [facility] Comment on above: Performed By: #### U PCR, DSU #### [facility] ([id number]) [address] [address] [place] [address] Eosinophils (Bld) [#/Vol] 0.1 10*3/uL Normal 0.0-0.4 [facility] Comment on above: Performed By: #### U PCR, DSU #### [facility] ([id number]) [address] [place] [address] Eosinophils/100 WBC (Bld) 0.2 % Normal [facility] Comment on above: Performed By: #### U PCR, DSU #### [facility] ([id number]) [address], [address] [place] [address] Erythrocyte distribution width (RBC) [Ratio] 13.1 % Normal 11.5-15.0 [facility] Comment on above: Performed By: #### U PCR, DSU #### [facility] ([id number]) [address], [address] [place] [address] Hematocrit (Bld) [Volume fraction] 34.3 % Low 35-47 [facility] Comment on above: Performed By: #### U PCR, DSU #### [facility] ([id number]) [address], [address] [place] [address] Hemoglobin (Bld) [Mass/Vol] 11.7 g/dL Normal 11.7-15.5 [facility] Comment on above: Performed By: #### U PCR, DSU #### [facility] ([id number]) [address] [address] [place] [address] Lymphocytes (Bld) [#/Vol] 4.6 10*3/uL High 1.0-3.5 [facility] Comment on above: Performed By: #### U PCR, DSU #### [facility] ([id number]) [address], [address] [place] [address] Lymphocytes/100 WBC (Bld) 22.5 % Normal [facility] Comment on above: Performed By: #### U PCR, DSU #### [facility] ([id number]) [address], [address] [place] [address] MCH (RBC) [Entitic mass] 30.3 pg Normal 27-34 [facility] Comment on above: Performed By: #### U PCR, DSU #### [facility] ([id number]) [address], [address] [place] [address] MCHC (RBC) [Mass/Vol] 34.1 g/dL Normal 32-36 [facility] Comment on above: Performed By: #### U PCR, DSU #### [facility] ([id number]) [address], [address] [place] [address] MCV (RBC) [Entitic vol] 89 fL Normal 80-100 [facility] Comment on above: Performed By: #### U PCR, DSU #### [facility] ([id number]) [address], [address] [place] [address] Monocytes (Bld) [#/Vol] 1.8 10*3/uL High 0-0.9 [facility] Comment on above: Performed By: #### U PCR, DSU #### [facility] ([id number]) [address], [address] [place] [address] Monocytes/100 WBC (Bld) 9.0 % Normal [facility] Comment on above: Performed By: #### U PCR, DSU #### [facility] ([id number]) [address], [address] [place] [address] Neutrophils/100 WBC (Bld) 68.1 % Normal [facility] Comment on above: Performed By: #### U PCR, DSU #### [facility] ([id number]) [address], [address] [place] [address] Platelet mean volume (Bld) [Entitic vol] 7.9 fL Normal 7-12 [facility] Comment on above: Performed By: #### U PCR, DSU #### [facility] ([id number]) [address], [address] [place] [address] Platelets (Bld) [#/Vol] 352 10*3/uL Normal 150-450 [facility] Comment on above: Performed By: #### U PCR, DSU #### [facility] ([id number]) [address], [address] [place] [address] RBC COUNT 3.85 X10E12/L Normal 3.80-5.20 [facility] Comment on above: Performed By: #### U PCR, DSU #### [facility] ([id number]) [address] [facility] [place] [address] WBC (Bld) [#/Vol] 20.5 10*3/uL High 4.0-11.0 [facility] Comment on above: Performed By: #### U PCR, DSU #### [facility] ([id number]) [address] [facility] [place] [address] COMPREHENSIVE METABOLIC PANE Yasmani 10-11-2023 Albumin [Mass/Vol] 3.2 g/dL Normal 3.2-5.3 [facility] Comment on above: Performed By: #### U PCR, DSU #### [facility] ([id number]) [address], [address] [place] [address] ALP [Catalytic activity/Vol] 58 U/L Normal 39-130 [facility] Comment on above: Performed By: #### U PCR, DSU #### [facility] ([id number]) [address] [facility] [place] [address] ALT [Catalytic activity/Vol] 13 U/L Normal 0-31 [facility] Comment on above: Performed By: #### U PCR, DSU #### [facility] ([id number]) [address], [address] [place] [address] Anion gap [Moles/Vol] 10 mmol/L Normal 5-15 [facility] Comment on above: Performed By: #### U PCR, DSU #### [facility] ([id number]) [address], [address] [place] [address] AST [Catalytic activity/Vol] 19 U/L Normal 0-41 [facility] Comment on above: Performed By: #### U PCR, DSU #### [facility] ([id number]) [address], [address] [place] [address] Bilirubin [Mass/Vol] 0.2 mg/dL Low 0.3-1.2 [facility] Comment on above: Performed By: #### U PCR, DSU #### [facility] ([id number]) [address], [address] [place] [address] Calcium [Mass/Vol] 8.1 mg/dL Low 8.5-10.5 [facility] Comment on above: Performed By: #### U PCR, DSU #### [facility] ([id number]) [address], [address] [place] [address] Chloride [Moles/Vol] 103 mmol/L Normal 98-109 [facility] Comment on above: Performed By: #### U PCR, DSU #### [facility] ([id number]) [address], [address] [place] [address] CO2 [Moles/Vol] 27 mmol/L Normal 22-32 [facility] Comment on above: Performed By: #### U PCR, DSU #### [facility] ([id number]) [address], [address] [place] [address] Creatinine [Mass/Vol] 0.73 mg/dL Normal 0.40-1.00 [facility] Comment on above: Result Comment: METH OD TRACEABLE TO IDMS STANDARD Performed By: #### U PCR, DSU #### [facility] ([id number]) [address], [address] [place] [address] eGFR (CKD-EPI) NON-RACE DEPENDENT >90 Normal >59 [facility] Comment on above: Result Comment: Reported eGFR is based on the CKD-EPI 2020 equation that does not use a race coefficient. Performed By: #### U PCR DSU #### [facility] ([id number]) [address], [address] [place] [address] Glucose [Mass/Vol] 79 mg/dL Normal 65-99 [facility] Comment on above: Performed By: #### U PCR, DSU #### [facility] ([id number]) [address], [address] [place] [address] Potassium [Moles/Vol] 4.1 mmol/L Normal 3.5-5.0 [facility] Comment on above: Performed By: #### U PCR, DSU #### [facility] ([id number]) [address], [address] [place] [address] Protein [Mass/Vol] 5.9 g/dL Low 6.0-8.0 [facility] Comment on above: Performed By: #### U PCR DSU #### [facility] ([id number]) [address], [address] [place] [address] Sodium [Moles/Vol] 140 mmol/L Normal 134-146 [facility] Comment on above: Performed By: #### U PCR, DSU #### [facility] ([id number]) [address], [address] [place] [address] Urea nitrogen [Mass/Vol] 21 mg/dL Normal 5-23 [facility] Comment on above: Performed By: #### U PCR, DSU #### [facility] ([id number]) [address], [address] [place] [address] CAPILLARY BLOOD GASon 2023 HERIBERTO'S TEST Normal [facility] Comment on above: Performed By: #### U PCR, DSU #### [facility] ([id number]) [address], [address] [place] [address] BASE,DEFICIT 4.0 MMOL/L High 0.0-2.0 [facility] Comment on above: Performed By: #### U PCR, DSU #### [facility] ([id number]) [address], [address] [place] [address] Body temperature 98.6 [degF] Normal 37.0 [facility] Comment on above: Performed By: #### U PCR, DSU #### [facility] ([id number]) [address], [address] [place] [address] HCO3 (Bld) [Moles/Vol] 22.3 mmol/L Normal 20.0-24.0 [facility] Comment on above: Performed By: #### U PCR, DSU #### [facility] ([id number]) [address], [address] [place] [address] INSP. O2 CONC. 35 % Normal [facility] Comment on above: Performed By: #### U PCR, DSU #### [facility] ([id number]) [address], [address] [place] [address] Oxygen saturation in Blood 37.0 % Low >80.0 [facility] Comment on above: Performed By: #### U PCR, DSU #### [facility] ([id number]) [address], [address] [place] [address] OXYGEN SOURCE Vent Normal [facility] Comment on above: Performed By: #### U PCR, DSU #### [facility] ([id number]) [address], [address] [place] [address] PCO2, CAPILLARY 42.3 MMHG Normal 35-45 [facility] Comment on above: Performed By: #### U PCR, DSU #### [facility] ([id number]) [address], [address] [place] [address] PH, CAPILLARY 7.330 Normal 7.330-7.49 0 [facility] Comment on above: Performed By: #### U PCR, DSU #### [facility] ([id number]) [address], [address] [place] [address] PO2, CAPILLARY 23 MMHG Low 35-45 [facility] Comment on above: Performed By: #### U PCR, DSU #### [facility] ([id number]) [address], [address] [place] [address] SAMPLE SITE RHeel Normal [facility] Comment on above: Performed By: #### U PCR, DSU #### [facility] ([id number]) [address], [address] [place] [address] SAMPLE TYPE CAPILLARY Normal [facility] Comment on above: Performed By: #### U PCR, DSU #### [facility] ([id number]) [address], [address] [place] [address] CBC AND AUTO DIFFon 10-10-19 24 Band form neutrophils/100 WBC (Bld) 1.0 % Normal [facility] Comment on above: Performed By: #### U PCR, DSU #### [facility] ([id number]) [address] [address] [place] [address] Erythrocyte distribution width (RBC) [Ratio] 13.4 % Normal 11.5-15.0 [facility] Comment on above: Performed By: #### U PCR, DSU #### [facility] ([id number]) [address], [address] [place] [address] Hematocrit (Bld) [Volume fraction] 35.2 % Normal 35-47 [facility] Comment on above: Performed By: #### U PCR, DSU #### [facility] ([id number]) [address], [address] [place] [address] Hemoglobin (Bld) [Mass/Vol] 12.2 g/dL Normal 11.7-15.5 [facility] Comment on above: Performed By: #### U PCR, DSU #### [facility] ([id number]) [address], [address] [place] [address] Lymphocytes (Bld) [#/Vol] 4.0 10*3/uL High 1.0-3.5 [facility] Comment on above: Performed By: #### U PCR, DSU #### [facility] ([id number]) [address], [address] [place] [address] Lymphocytes/100 WBC (Bld) 16.0 % Normal [facility] Comment on above: Performed By: #### U PCR, DSU #### [facility] ([id number]) [address], [address] [place] [address] MCH (RBC) [Entitic mass] 30.7 pg Normal 27-34 [facility] Comment on above: Performed By: #### U PCR, DSU #### [facility] ([id number]) [address], [address] [place] [address] MCHC (RBC) [Mass/Vol] 34.6 g/dL Normal 32-36 [facility] Comment on above: Performed By: #### U PCR, DSU #### [facility] ([id number]) [address], [address] [place] [address] MCV (RBC) [Entitic vol] 89 fL Normal 80-100 [facility] Comment on above: Performed By: #### U PCR, DSU #### [facility] ([id number]) [address], [address] [place] [address] Monocytes (Bld) [#/Vol] 1.3 10*3/uL High 0-0.9 [facility] Comment on above: Performed By: #### U PCR, DSU #### [facility] ([id number]) [address], [address] [place] [address] Monocytes/100 WBC (Bld) 5.0 % Normal [facility] Comment on above: Performed By: #### U PCR, DSU #### [facility] ([id number]) [address], [address] [place] [address] Neutrophils (Bld) [#/Vol] 19.9 10*3/uL High 1.5-6.6 [facility] Comment on above: Performed By: #### U PCR, DSU #### [facility] ([id number]) [address], [address] [place] [address] Platelet mean volume (Bld) [Entitic vol] 8.0 fL Normal 7-12 [facility] Comment on above: Performed By: #### U PCR, DSU #### [facility] ([id number]) [address], [address] [place] [address] Platelets (Bld) [#/Vol] 375 10*3/uL Normal 150-450 [facility] Comment on above: Performed By: #### U PCR, DSU #### [facility] ([id number]) [address], [address] [place] [address] RBC COUNT 3.97 X10E12/L Normal 3.80-5.20 [facility] Comment on above: Performed By: #### U PCR, DSU #### [facility] ([id number]) [address], [address] [place] [address] RBC morphology finding Nom (Bld) NORMAL Normal [facility] Comment on above: Performed By: #### U PCR, DSU #### [facility] ([id number]) [address], [address] [place] [address] SEG NEUTROPHIL 78.0 % Normal [facility] Comment on above: Performed By: #### U PCR, DSU #### [facility] ([id number]) [address], [address] [place] [address] WBC (Bld) [#/Vol] 25.2 10*3/uL High 4.0-11.0 [facility] Comment on above: Performed By: #### U PCR, DSU #### [facility] ([id number]) [address], [address] [place] [address] COMPREHENSIVE METABOLIC PANE Yasmani 10-10-2023 Albumin [Mass/Vol] 3.3 g/dL Normal 3.2-5.3 [facility] Comment on above: Performed By: #### U PCR, DSU #### [facility] ([id number]) [address], [address] [place] [address] ALP [Catalytic activity/Vol] 74 U/L Normal 39-130 [facility] Comment on above: Performed By: #### U PCR, DSU #### [facility] ([id number]) [address], [address] [place] [address] ALT [Catalytic activity/Vol] 16 U/L Normal 0-31 [facility] Comment on above: Performed By: #### U PCR, DSU #### [facility] ([id number]) [address], [address] [place] [address] Anion gap [Moles/Vol] 12 mmol/L Normal 5-15 [facility] Comment on above: Performed By: #### U PCR, DSU #### [facility] ([id number]) [address], [address] [place] [address] AST [Catalytic activity/Vol] 20 U/L Normal 0-41 [facility] Comment on above: Performed By: #### U PCR, DSU #### [facility] ([id number]) [address], [address] [place] [address] Bilirubin [Mass/Vol] 0.2 mg/dL Low 0.3-1.2 [facility] Comment on above: Performed By: #### U PCR, DSU #### [facility] ([id number]) [address], [address] [place] [address] Calcium [Mass/Vol] 7.6 mg/dL Low 8.5-10.5 [facility] Comment on above: Performed By: #### U PCR, DSU #### [facility] ([id number]) [address] [place] [address] Chloride [Moles/Vol] 100 mmol/L Normal 98-109 [facility] Comment on above: Performed By: #### U PCR, DSU #### [facility] ([id number]) [address], [address] [place] [address] CO2 [Moles/Vol] 24 mmol/L Normal 22-32 [facility] Comment on above: Performed By: #### U PCR, DSU #### [facility] ([id number]) [address], [facility] [address] [place] [address] Creatinine [Mass/Vol] 0.71 mg/dL Normal 0.40-1.00 [facility] Comment on above: Result Comment: METH OD TRACEABLE TO IDMS STANDARD Performed By: #### U PCR, DSU #### [facility] ([id number]) [address] [address] [place] [address] eGFR (CKD-EPI) NON-RACE DEPENDENT >90 Normal >59 [facility] Comment on above: Result Comment: Reported eGFR is based on the CKD-EPI 2020 equation that does not use a race coefficient. Performed By: #### U PCR, DSU #### [facility] ([id number]) [address], [address] [place] [address] Glucose [Mass/Vol] 101 mg/dL High 65-99 [facility] Comment on above: Performed By: #### U PCR, DSU #### [facility] ([id number]) [address], [address] [place] [address] Potassium [Moles/Vol] 3.9 mmol/L Normal 3.5-5.0 [facility] Comment on above: Performed By: #### U PCR, DSU #### [facility] ([id number]) [address], [address] [place] [address] Protein [Mass/Vol] 6.3 g/dL Normal 6.0-8.0 [facility] Comment on above: Performed By: #### U PCR, DSU #### [facility] ([id number]) [address], [address] [place] [address] Sodium [Moles/Vol] 136 mmol/L Normal 134-146 [facility] Comment on above: Performed By: #### U PCR, DSU #### [facility] ([id number]) [address], [address] [place] [address] Urea nitrogen [Mass/Vol] 13 mg/dL Normal 5-23 [facility] Comment on above: Performed By: #### U PCR, DSU #### [facility] ([id number]) [address], [address] [place] [address] Albumin [Mass/Vol] 3.3 g/dL Normal 3.2-5.3 [facility] Comment on above: Performed By: #### U PCR, DSU #### [facility] ([id number]) [address], [address] [place] [address] ALP [Catalytic activity/Vol] 74 U/L Normal 39-130 [facility] Comment on above: Performed By: #### U PCR, DSU #### [facility] ([id number]) [address], [address] [place] [address] ALT [Catalytic activity/Vol] 19 U/L Normal 0-31 [facility] Comment on above: Performed By: #### U PCR, DSU #### [facility] ([id number]) [address] [place] [address] Anion gap [Moles/Vol] 13 mmol/L Normal 5-15 [facility] Comment on above: Performed By: #### U PCR, DSU #### [facility] ([id number]) [address], [address] [place] [address] AST [Catalytic activity/Vol] 24 U/L Normal 0-41 [facility] Comment on above: Performed By: #### U PCR, DSU #### [facility] ([id number]) [address] [place] [address] Bilirubin [Mass/Vol] 0.3 mg/dL Normal 0.3-1.2 [facility] Comment on above: Performed By: #### U PCR, DSU #### [facility] ([id number]) [address] [place] [address] Calcium [Mass/Vol] 8.1 mg/dL Low 8.5-10.5 [facility] Comment on above: Performed By: #### U PCR, DSU #### [facility] ([id number]) [address], [address] [place] [address] Chloride [Moles/Vol] 102 mmol/L Normal 98-109 [facility] Comment on above: Performed By: #### U PCR, DSU #### [facility] ([id number]) [address], [address] [place] [address] CO2 [Moles/Vol] 22 mmol/L Normal 22-32 [facility] Comment on above: Performed By: #### U PCR, DSU #### [facility] ([id number]) [address] [address] [place] [address] Creatinine [Mass/Vol] 0.78 mg/dL Normal 0.40-1.00 [facility] Comment on above: Result Comment: METH OD TRACEABLE TO IDMS STANDARD Performed By: #### U PCR, DSU #### [facility] ([id number]) [address] [address] eGFR (CKD-EPI) NON-RACE DEPENDENT >90 Normal >59 [facility] Comment on above: Result Comment: Reported eGFR is based on the CKD-EPI 2020 equation that does not use a race coefficient. Performed By: #### U PCR, DSU #### [facility] ([id number]) [address] [address] Glucose [Mass/Vol] 118 mg/dL High 65-99 [facility] Comment on above: Performed By: #### U PCR, DSU #### [facility] ([id number]) [address] [address] Potassium [Moles/Vol] 4.2 mmol/L Normal 3.5-5.0 [facility] Comment on above: Performed By: #### U PCR, DSU #### [facility] ([id number]) [address] [address] Protein [Mass/Vol] 6.2 g/dL Normal 6.0-8.0 [facility] Comment on above: Performed By: #### U PCR, DSU #### [facility] ([id number]) [address] [address] Sodium [Moles/Vol] 137 mmol/L Normal 134-146 [facility] Comment on above: Performed By: #### U PCR, DSU #### [facility] ([id number]) [address] [place] [address] Urea nitrogen [Mass/Vol] 16 mg/dL Normal 5-23 [facility] Comment on above: Performed By: #### U PCR, DSU #### [facility] ([id number]) [address] [place] [address] CORD ARTERIAL GASon 10-10-19 24 HERIBERTO'S TEST Normal [facility] Comment on above: Performed By: #### A CA, 5124-3, 75177-3, 26868-9, 70370-1 #### [facility] ([id number]) [address] [facility] [address] [place] [address] BASE,DEFICIT 5.0 MMOL/L High 0.0-2.0 [facility] Comment on above: Performed By: #### A CA, 5124-3, 99545-1, 66850-9, 66979-1 #### [facility] ([id number]) [address] [place] [address] HCO3 (Bld) [Moles/Vol] 20.2 mmol/L Low 22-26 [facility] Comment on above: Performed By: #### A CA, 5124-3, 44049-1, 62892-2, 12703-0 #### [facility] ([id number]) [address] [place] [address] Oxygen (Bld) [Partial pressure] 21 mm[Hg] Normal 12-24 [facility] Comment on above: Performed By: #### A CA, 5124-3, 33755-8, 11346-7, 69367-6 #### [facility] ([id number]) [address] [place] [address] Oxygen saturation in Blood 30.0 % Normal 7.1-39.5 [facility] Comment on above: Performed By: #### A CA, 5124-3, 94686-0, 85445-9, 63744-6 #### [facility] ([id number]) [address] [place] [address] OXYGEN SOURCE [employer] [facility] Comment on above: Performed By: #### A CA, 5124-3, 40483-4, 94247-0, 05063-4 #### [facility] ([id number]) [address] [place] [address] PCO2 39.1 MMHG Low 40.8-57.6 [facility] Comment on above: Performed By: #### A CA, 5124-3, 11955-6, 97905-8, 11676-6 #### [facility] ([id number]) [address], [facility] [address] [place] [address] pH (Bld) 7.321 [pH] High 7.24-7.30 [facility] Comment on above: Performed By: #### A CA, 5124-3, 37483-8, 11652-5, 24120-7 #### [facility] ([id number]) [address], [facility] [address] [place] [address] SAMPLE SITE [employer] Normal [facility] Comment on above: Performed By: #### A CA, 5124-3, 26005-4, 76304-6, 35022-4 #### [facility] ([id number]) [address] [place] [address] SAMPLE TYPE UMBILICALCORD [facility] Comment on above: Performed By: #### A CA, 5124-3, 66648-4, 00479-6, 06802-4 #### [facility] ([id number]) [address], [address] [place] [address] CORD VENOUS GASon 10-10-2023 HERIBERTO'S TEST Normal [facility] Comment on above: Performed By: #### A CA, 5124-3, 51582-2, 89428-4, 15446-2 #### [facility] ([id number]) [address], [address] [place] [address] BASE,DEFICIT 4.0 MMOL/L High 0.0-2.0 [facility] Comment on above: Performed By: #### A CA, 5124-3, 51495-9, 18454-8, 38957-8 #### [facility] ([id number]) [address], [address] [place] [address] HCO3 (Bld) [Moles/Vol] 22.3 mmol/L Normal 20.0-24.0 [facility] Comment on above: Performed By: #### A CA, 5124-3, 79674-4, 78440-4, 12275-6 #### [facility] ([id number]) [address], [address] [place] [address] Oxygen (Bld) [Partial pressure] 17 mm[Hg] Low 22-35 [facility] Comment on above: Performed By: #### A CA, 5124-3, 65669-0, 82835-6, 20496-1 #### [facility] ([id number]) [address], [address] [place] [address] Oxygen saturation in Blood 20.0 % Low 32.5-66.3 [facility] Comment on above: Performed By: #### A CA, 5124-3, 16301-1, 34818-4, 98522-3 #### [facility] ([id number]) [address], [address] [place] [address] OXYGEN SOURCE RoomAir Normal [facility] Comment on above: Performed By: #### A CA, 5124-3, 25976-4, 73845-3, 13195-0 #### [facility] ([id number]) [address], [address] [place] [address] PCO2 43.8 MMHG Normal 32.6-43.8 [facility] Comment on above: Performed By: #### A CA, 5124-3, 44638-8, 67552-8, 98217-7 #### [facility] ([id number]) [address], [address] [place] [address] pH (Bld) 7.315 [pH] Normal 7.25-7.37 [facility] Comment on above: Performed By: #### A CA, 5124-3, 06247-3, 10953-2, 59275-6 #### [facility] ([id number]) [address], [address] [place] [address] SAMPLE SITE VenCord Normal [facility] Comment on above: Performed By: #### A CA, 5124-3, 08885-8, 78358-1, 67068-6 #### [facility] ([id number]) [address], [address] [place] [address] SAMPLE TYPE UMBILICALCORD Normal [facility] Comment on above: Performed By: #### A CA, 5124-3, 50294-6, 92449-0, 67079-6 #### [facility] ([id number]) [address], [address] [place] [address] Surgical Pathologyon 024 Surgical Pathology Normal [facility] Comment on above: Result Comment: [facility] [address] [place] [address] Surgical Pathology Consultation Patient Name:SISI MORA:1995 (Age: 28)Gender:FTaken:4Reported:4Physician(s):Sue Holland M.D. ([id number])Copy To: Rec. #:[id number]: #[id number] Final Pathologic Diagnosis Bilateral fallopian tubes: Benign fallopian tubes. Report Electronically Signed Out kiki/10/14/2023britany Cifuentes MD Interpretation performed at [facility], [address] [place] [address], License number: [id number]. Clinical History Pre-eclampsia with severe features. Gross [...] (inked tube) is submitted in cassette A, traveling sales representative cross-sections of fallopian tube (inked) in cassette B, perpendicularly sectioned fimbria (uninked tube) in cassette C, and traveling sales representative cross-sections of fallopian tube (uninked) in cassette D. (4, ss, [id number], m1) SHIV finney/10/12/2023GR Specimen(s) Received Right and left fallopian tubes Fee Codes(s): 1; 21480 BETA-2 GP1 AB PANELon 2023 BETA-2 GP1 IgA <2.0 Normal 0.0-19.9 [facility] Comment on above: Performed By: #### A CA, 5124-3, 78091-2, 55420-0, 15220-1 #### [facility] ([id number]) [address] [facility] [place] [address] BETA-2 GP1 IgG <1.4 Normal 0.0-19.9 [facility] Comment on above: Performed By: #### A CA, 5124-3, 32580-8, 87934-9, 61509-2 #### [facility] ([id number]) [address], [address] [place] [address] BETA-2 GP1 IgM <1.5 Normal 0.0-19.9 [facility] Comment on above: Performed By: #### A PARUL, 5124-3, 40058-4, 69991-2, 66631-2 #### [facility] ([id number]) [address], [address] [place] [address] CBC AND AUTO DIFFon 10-09-19 24 ABSOLUTE BASOPHIL 0.3 X10E9/L High 0.0-0.2 [facility] Comment on above: Performed By: #### A PARUL, 5124-3, 71835-5, 91871-1, 28450-1 #### [facility] ([id number]) [address], [address] [place] [address] ABSOLUTE NEUTROPHIL 15.1 X10E9/L High 1.5-6.6 [facility] Comment on above: Performed By: #### A PARUL, 5124-3, 59340-4, 11214-7, 94035-5 #### [facility] ([id number]) [address] [address] [place] [address] Basophils/100 WBC (Bld) 1.5 % Normal [facility] Comment on above: Performed By: #### A PARLU, 5124-3, 32528-6, 17214-0, 03990-3 #### [facility] ([id number]) [address] [address] [place] [address] Eosinophils (Bld) [#/Vol] 0.0 10*3/uL Normal 0.0-0.4 [facility] Comment on above: Performed By: #### A PARUL, 5124-3, 23573-8, 51345-0, 29659-6 #### [facility] ([id number]) [address], [address] [place] [address] Eosinophils/100 WBC (Bld) 0.1 % Normal [facility] Comment on above: Performed By: #### A PARUL, 5124-3, 05402-1, 44936-5, 23265-6 #### [facility] ([id number]) [address], [facility] [address] [place] [address] Erythrocyte distribution width (RBC) [Ratio] 12.7 % Normal 11.5-15.0 [facility] Comment on above: Performed By: #### A PARUL, 5124-3, 11123-0, 32406-1, 65708-6 #### [facility] ([id number]) [address], [facility] [address] [place] [address] Hematocrit (Bld) [Volume fraction] 38.4 % Normal 35-47 [facility] Comment on above: Performed By: #### A PARUL, 5124-3, 47448-9, 65671-9, 20246-2 #### [facility] ([id number]) [address], [facility] [address] [place] [address] Hemoglobin (Bld) [Mass/Vol] 12.9 g/dL Normal 11.7-15.5 [facility] Comment on above: Performed By: #### A PARUL, 5124-3, 87719-2, 36656-6, 16219-5 #### [facility] ([id number]) [address], [facility] [address] [place] [address] Lymphocytes (Bld) [#/Vol] 3.7 10*3/uL High 1.0-3.5 [facility] Comment on above: Performed By: #### A PARUL, 5124-3, 17712-0, 76834-8, 96679-2 #### [facility] ([id number]) [address] [address] Lymphocytes/100 WBC (Bld) 18.7 % Normal [facility] Comment on above: Performed By: #### A CA, 5124-3, 77757-2, 16616-6, 62410-3 #### [facility] ([id number]) [address], [facility] [address] [place] [address] MCH (RBC) [Entitic mass] 30.1 pg Normal 27-34 [facility] Comment on above: Performed By: #### A CA, 5124-3, 37028-1, 54755-4, 99520-5 #### [facility] ([id number]) [address], [facility] [address] [place] [address] MCHC (RBC) [Mass/Vol] 33.7 g/dL Normal 32-36 [facility] Comment on above: Performed By: #### A CA, 5124-3, 14711-3, 16742-5, 02379-8 #### [facility] ([id number]) [address], [facility] [address] [place] [address] MCV (RBC) [Entitic vol] 89 fL Normal 80-100 [facility] Comment on above: Performed By: #### A CA, 5124-3, 90937-8, 98691-2, 42289-6 #### [facility] ([id number]) [address], [facility] [address] [place] [address] Monocytes (Bld) [#/Vol] 0.6 10*3/uL Normal 0-0.9 [facility] Comment on above: Performed By: #### A CA, 5124-3, 74398-6, 12050-5, 64152-1 #### [facility] ([id number]) [address] [address] [place] [address] Monocytes/100 WBC (Bld) 3.1 % Normal [facility] Comment on above: Performed By: #### A CA, 5124-3, 94674-6, 81061-1, 02081-8 #### [facility] ([id number]) [address], [facility] [address] [place] [address] Neutrophils/100 WBC (Bld) 76.6 % Normal [facility] Comment on above: Performed By: #### A CA, 5124-3, 87213-2, 10537-7, 07644-9 #### [facility] ([id number]) [address] [address] [place] [address] Platelet mean volume (Bld) [Entitic vol] 8.2 fL Normal 7-12 [facility] Comment on above: Performed By: #### A CA, 5124-3, 77201-5, 67167-7, 11814-9 #### [facility] ([id number]) [address], [address] [address] Platelets (Bld) [#/Vol] 434 10*3/uL Normal 150-450 [facility] Comment on above: Performed By: #### A PARUL, 5124-3, 62980-5, 68077-9, 47179-5 #### [facility] ([id number]) [address] [address] RBC COUNT 4.30 X10E12/L Normal 3.80-5.20 [facility] Comment on above: Performed By: #### A PARUL, 5124-3, 56284-0, 40870-2, 69776-3 #### [facility] ([id number]) [address] [address] WBC (Bld) [#/Vol] 19.7 10*3/uL High 4.0-11.0 [facility] Comment on above: Performed By: #### A CA, 5124-3, 98579-9, 19269-6, 56367-1 #### [facility] ([id number]) [address] [address] [place] [address] COMPLETE BLOOD COUNTon 03-29 -2024 Erythrocyte distribution width (RBC) [Ratio] 13.0 % Normal 11.5-15.0 [facility] Comment on above: Performed By: #### A PARUL, 5124-3, 46350-6, 85861-1, 78587-4 #### [facility] ([id number]) [address], [facility] [address] [place] [address] Hematocrit (Bld) [Volume fraction] 38.0 % Normal 35-47 [facility] Comment on above: Performed By: #### A PARUL, 5124-3, 97227-3, 34980-0, 22054-0 #### [facility] ([id number]) [address], [facility] [address] [place] [address] Hemoglobin (Bld) [Mass/Vol] 12.9 g/dL Normal 11.7-15.5 [facility] Comment on above: Performed By: #### A PARUL, 5124-3, 69563-1, 01091-4, 05223-1 #### [facility] ([id number]) [address], [address] [place] [address] MCH (RBC) [Entitic mass] 30.2 pg Normal 27-34 [facility] Comment on above: Performed By: #### A PARUL, 5124-3, 94812-5, 23014-0, 83059-9 #### [facility] ([id number]) [address], [address] [place] [address] MCHC (RBC) [Mass/Vol] 34.0 g/dL Normal 32-36 [facility] Comment on above: Performed By: #### A PARUL, 5124-3, 81129-8, 20275-3, 44974-2 #### [facility] ([id number]) [address], [address] [place] [address] MCV (RBC) [Entitic vol] 89 fL Normal 80-100 [facility] Comment on above: Performed By: #### A CA, 5124-3, 04649-8, 12462-1, 24186-1 #### [facility] ([id number]) [address], [facility] [address] [place] [address] Platelet mean volume (Bld) [Entitic vol] 8.2 fL Normal 7-12 [facility] Comment on above: Performed By: #### A CA, 5124-3, 45724-0, 04829-5, 30586-4 #### [facility] ([id number]) [address], [address] [address] Platelets (Bld) [#/Vol] 410 10*3/uL Normal 150-450 [facility] Comment on above: Performed By: #### A CA, 5124-3, 40550-3, 53914-0, 83655-0 #### [facility] ([id number]) [address], [address] [address] RBC COUNT 4.28 X10E12/L Normal 3.80-5.20 [facility] Comment on above: Performed By: #### A CA, 5124-3, 73206-7, 89291-3, 91405-2 #### [facility] ([id number]) [address], [address] [address] WBC (Bld) [#/Vol] 19.3 10*3/uL High 4.0-11.0 [facility] Comment on above: Performed By: #### A CA, 5124-3, 46769-8, 81725-5, 61863-8 #### [facility] ([id number]) [address], [facility] [address] [place] [address] COMPREHENSIVE METABOLIC PANE Yasmani 10-09-2023 Albumin [Mass/Vol] 3.6 g/dL Normal 3.2-5.3 [facility] Comment on above: Performed By: #### A CA, 5124-3, 31540-4, 56774-7, 79276-1 #### [facility] ([id number]) [address], [address] [place] [address] ALP [Catalytic activity/Vol] 95 U/L Normal 39-130 [facility] Comment on above: Performed By: #### A CA, 5124-3, 05138-2, 79278-3, 90871-8 #### [facility] ([id number]) [address], [address] [place] [address] ALT [Catalytic activity/Vol] 23 U/L Normal 0-31 [facility] Comment on above: Performed By: #### A CA, 5124-3, 67618-9, 43853-6, 97242-6 #### [facility] ([id number]) [address], [address] [place] [address] Anion gap [Moles/Vol] 15 mmol/L Normal 5-15 [facility] Comment on above: Performed By: #### A CA, 5124-3, 62982-7, 39412-7, 63914-7 #### [facility] ([id number]) [address], [address] [place] [address] AST [Catalytic activity/Vol] 24 U/L Normal 0-41 [facility] Comment on above: Performed By: #### A CA, 5124-3, 73131-0, 68645-4, 48982-2 #### [facility] ([id number]) [address], [address] [place] [address] Bilirubin [Mass/Vol] 0.2 mg/dL Low 0.3-1.2 [facility] Comment on above: Performed By: #### A CA, 5124-3, 13864-1, 08020-3, 41967-5 #### [facility] ([id number]) [address], [address] [place] [address] Calcium [Mass/Vol] 9.3 mg/dL Normal 8.5-10.5 [facility] Comment on above: Performed By: #### A CA, 5124-3, 88015-1, 64733-5, 87513-7 #### [facility] ([id number]) [address], [address] [place] [address] Chloride [Moles/Vol] 103 mmol/L Normal 98-109 [facility] Comment on above: Performed By: #### A CA, 5124-3, 46854-6, 33059-6, 41770-8 #### [facility] ([id number]) [address], [facility] [address] [place] [address] CO2 [Moles/Vol] 19 mmol/L Low 22-32 [facility] Comment on above: Performed By: #### A PARUL, 5124-3, 71166-7, 67782-8, 62269-1 #### [facility] ([id number]) [address], [address] [place] [address] Creatinine [Mass/Vol] 0.71 mg/dL Normal 0.40-1.00 [facility] Comment on above: Result Comment: METH OD TRACEABLE TO IDMS STANDARD Performed By: #### A CA, 5124-3, 46102-3, 62296-2, 04660-1 #### [facility] ([id number]) [address], [address] [place] [address] eGFR (CKD-EPI) NON-RACE DEPENDENT >90 Normal >59 [facility] Comment on above: Result Comment: Reported eGFR is based on the CKD-EPI 2020 equation that does not use a race coefficient. Performed By: #### A CA, 5124-3, 83295-1, 33016-4, 05687-1 #### [facility] ([id number]) [address], [address] [place] [address] Glucose [Mass/Vol] 122 mg/dL High 65-99 [facility] Comment on above: Performed By: #### A CA, 5124-3, 73839-4, 55051-6, 96084-1 #### [facility] ([id number]) [address], [address] [place] [address] Potassium [Moles/Vol] 4.0 mmol/L Normal 3.5-5.0 [facility] Comment on above: Performed By: #### A CA, 5124-3, 06233-9, 23732-3, 51305-7 #### [facility] ([id number]) [address], [address] [place] [address] Protein [Mass/Vol] 7.0 g/dL Normal 6.0-8.0 [facility] Comment on above: Performed By: #### A CA, 5124-3, 32419-6, 18762-2, 52515-1 #### [facility] ([id number]) [address], [address] [place] [address] Sodium [Moles/Vol] 137 mmol/L Normal 134-146 [facility] Comment on above: Performed By: #### A CA, 5124-3, 70102-6, 63681-7, 73938-6 #### [facility] ([id number]) [address], [address] [place] [address] Urea nitrogen [Mass/Vol] 20 mg/dL Normal 5-23 [facility] Comment on above: Performed By: #### A CA, 5124-3, 39882-2, 19891-7, 70139-7 #### [facility] ([id number]) [address], [address] [place] [address] Surgical Pathologyon 024 Surgical Pathology Normal [facility] Comment on above: Result Comment: [facility] [address] [place], [place] [address] Surgical Pathology Consultation Patient Name:SISI MORA:1995 (Age: 28)Gender:FTaken:4Reported:4Physician(s):Gavin Holland M.D. ([id number])Copy To:[facility] #:[id number]. Rec. #:[id number]: #[id number] Final Pathologic Diagnosis Placenta: small for gestational age third trimester placenta (193 g, <10th percentile for gestational age of 30 weeks), demonstrating focal placental infarcts, incomplete adaptation for (maternal decidual vasculopathy) and increased syncytial knots. Negative membranes. Unremarkable three-vessel umbilical cord with eccentric insertion. Report Electronically Signed Out ao/4Aceline Steward MD Interpretation performed at [facility], [address] [place] [address], License number: [id number]. Clinical History Pre-eclampsia severe, with delivery. Gross [...] Rolled membrane, two sections of cord B-D Ironer sections of placenta (to include rubbery areas in cassette C???D) E Additional rolled membrane (5, ss, [id number],A-E, m5) BALDEMAR royg/10/21/2023O Specimen(s) Received Placenta Fee Codes(s): 1; [address] CBC AND AUTO DIFFon 10-07-19 24 ABSOLUTE BASOPHIL 0.1 X10E9/L Normal 0.0-0.2 [facility] Comment on above: Performed By: #### A CA, 5124-3, 82436-7, 58096-6, 22443-5 #### [facility] ([id number]) [address] [address] ABSOLUTE NEUTROPHIL 9.6 X10E9/L High 1.5-6.6 [facility] Comment on above: Performed By: #### A CA, 5124-3, 11294-0, 26942-6, 76677-1 #### [facility] ([id number]) [address] [address] Basophils/100 WBC (Bld) 0.7 % Normal [facility] Comment on above: Performed By: #### A CA, 5124-3, 81071-9, 12627-3, 95902-0 #### [facility] ([id number]) [address] [address] Eosinophils (Bld) [#/Vol] 0.2 10*3/uL Normal 0.0-0.4 [facility] Comment on above: Performed By: #### A CA, 5124-3, 58298-6, 95568-8, 93855-5 #### [facility] ([id number]) [address] [address] Eosinophils/100 WBC (Bld) 1.5 % Normal [facility] Comment on above: Performed By: #### A CA, 5124-3, 70946-3, 79333-5, 96834-8 #### [facility] ([id number]) [address] [address] Erythrocyte distribution width (RBC) [Ratio] 12.9 % Normal 11.5-15.0 [facility] Comment on above: Performed By: #### A PARUL, 5124-3, 27866-8, 80193-7, 81450-7 #### [facility] ([id number]) [address], [facility] [address] [place] [address] Hematocrit (Bld) [Volume fraction] 38.9 % Normal 35-47 [facility] Comment on above: Performed By: #### A PARUL, 5124-3, 75643-1, 74896-4, 50151-5 #### [facility] ([id number]) [address] [address] [place] [address] Hemoglobin (Bld) [Mass/Vol] 13.1 g/dL Normal 11.7-15.5 [facility] Comment on above: Performed By: #### A PARUL, 5124-3, 87462-5, 48287-3, 73277-3 #### [facility] ([id number]) [address] [address] [place] [address] Lymphocytes (Bld) [#/Vol] 4.8 10*3/uL High 1.0-3.5 [facility] Comment on above: Performed By: #### A PARUL, 5124-3, 96686-2, 93306-3, 82203-8 #### [facility] ([id number]) [address], [facility] [address] [place] [address] Lymphocytes/100 WBC (Bld) 30.6 % Normal [facility] Comment on above: Performed By: #### A PARUL, 5124-3, 47352-8, 72853-5, 87095-0 #### [facility] ([id number]) [address] [place] [address] MCH (RBC) [Entitic mass] 30.2 pg Normal 27-34 [facility] Comment on above: Performed By: #### A CA, 5124-3, 08194-7, 16268-0, 17336-0 #### [facility] ([id number]) [address], [facility] [address] [place] [address] MCHC (RBC) [Mass/Vol] 33.7 g/dL Normal 32-36 [facility] Comment on above: Performed By: #### A CA, 5124-3, 34509-5, 49771-9, 85012-4 #### [facility] ([id number]) [address], [facility] [address] [place] [address] MCV (RBC) [Entitic vol] 90 fL Normal 80-100 [facility] Comment on above: Performed By: #### A CA, 5124-3, 38484-2, 87027-1, 86851-2 #### [facility] ([id number]) [address], [address] [address] Monocytes (Bld) [#/Vol] 0.9 10*3/uL Normal 0-0.9 [facility] Comment on above: Performed By: #### A CA, 5124-3, 73853-0, 84677-1, 35874-1 #### [facility] ([id number]) [address] [address] Monocytes/100 WBC (Bld) 6.0 % Normal [facility] Comment on above: Performed By: #### A CA, 5124-3, 69721-5, 15053-9, 42790-3 #### [facility] ([id number]) [address] [address] Neutrophils/100 WBC (Bld) 61.2 % Normal [facility] Comment on above: Performed By: #### A CA, 5124-3, 77441-1, 66648-9, 30907-9 #### [facility] ([id number]) [address] [place] [address] Platelet mean volume (Bld) [Entitic vol] 7.9 fL Normal 7-12 [facility] Comment on above: Performed By: #### A CA, 5124-3, 88206-6, 06306-5, 85513-0 #### [facility] ([id number]) [address], [facility] [address] [place] [address] Platelets (Bld) [#/Vol] 385 10*3/uL Normal 150-450 [facility] Comment on above: Performed By: #### A CA, 5124-3, 13384-9, 10634-4, 81754-6 #### [facility] ([id number]) [address], [facility] [address] [place] [address] RBC COUNT 4.35 X10E12/L Normal 3.80-5.20 [facility] Comment on above: Performed By: #### A CA, 5124-3, 54454-3, 28274-0, 34051-4 #### [facility] ([id number]) [address] [address] WBC (Bld) [#/Vol] 15.7 10*3/uL High 4.0-11.0 [facility] Comment on above: Performed By: #### A CA, 5124-3, 52748-5, 48557-3, 30398-1 #### [facility] ([id number]) [address], [address] [place] [address] COMPREHENSIVE METABOLIC PANE Yasmani 10-07-2023 Albumin [Mass/Vol] 3.2 g/dL Normal 3.2-5.3 [facility] Comment on above: Performed By: #### A CA, 5124-3, 42323-7, 87854-7, 70053-7 #### [facility] ([id number]) [address], [address] [place] [address] ALP [Catalytic activity/Vol] 73 U/L Normal 39-130 [facility] Comment on above: Performed By: #### A CA, 5124-3, 61879-3, 36349-6, 93621-9 #### [facility] ([id number]) [address], [facility] [address] [place] [address] ALT [Catalytic activity/Vol] 14 U/L Normal 0-31 [facility] Comment on above: Performed By: #### A CA, 5124-3, 16250-5, 61109-3, 30808-6 #### [facility] ([id number]) [address], [facility] [address] [place] [address] Anion gap [Moles/Vol] 10 mmol/L Normal 5-15 [facility] Comment on above: Performed By: #### A CA, 5124-3, 27027-8, 63731-8, 17267-4 #### [facility] ([id number]) [address], [facility] [address] [place] [address] AST [Catalytic activity/Vol] 17 U/L Normal 0-41 [facility] Comment on above: Performed By: #### A CA, 5124-3, 46816-4, 23763-5, 14889-9 #### [facility] ([id number]) [address], [facility] [address] [place] [address] Bilirubin [Mass/Vol] 0.2 mg/dL Low 0.3-1.2 [facility] Comment on above: Performed By: #### A CA, 5124-3, 41768-3, 23884-3, 71472-9 #### [facility] ([id number]) [address], [facility] [address] [place] [address] Calcium [Mass/Vol] 8.9 mg/dL Normal 8.5-10.5 [facility] Comment on above: Performed By: #### A CA, 5124-3, 85987-5, 45580-4, 62635-7 #### [facility] ([id number]) [address], [address] [place] [address] Chloride [Moles/Vol] 104 mmol/L Normal 98-109 [facility] Comment on above: Performed By: #### A CA, 5124-3, 70402-9, 17354-2, 07138-1 #### [facility] ([id number]) [address], [facility] [address] [place] [address] CO2 [Moles/Vol] 24 mmol/L Normal 22-32 [facility] Comment on above: Performed By: #### A CA, 5124-3, 79935-2, 77835-2, 84921-3 #### [facility] ([id number]) [address], [address] [address] Creatinine [Mass/Vol] 0.69 mg/dL Normal 0.40-1.00 [facility] Comment on above: Result Comment: METH OD TRACEABLE TO IDMS STANDARD Performed By: #### A CA, 5124-3, 26056-7, 24222-5, 38775-0 #### [facility] ([id number]) [address], [address] [address] eGFR (CKD-EPI) NON-RACE DEPENDENT >90 Normal >59 [facility] Comment on above: Result Comment: Reported eGFR is based on the CKD-EPI 1 equation that does not use a race coefficient. Performed By: #### A CA, 5124-3, 81696-4, 51434-2, 43643-9 #### [facility] ([id number]) [address] [address] Glucose [Mass/Vol] 76 mg/dL Normal 65-99 [facility] Comment on above: Performed By: #### A CA, 5124-3, 99851-8, 42082-4, 46077-0 #### [facility] ([id number]) [address], [address] [place] [address] Potassium [Moles/Vol] 3.9 mmol/L Normal 3.5-5.0 [facility] Comment on above: Performed By: #### A CA, 5124-3, 86280-0, 45302-4, 89945-8 #### [facility] ([id number]) [address], [address] [place] [address] Protein [Mass/Vol] 6.2 g/dL Normal 6.0-8.0 [facility] Comment on above: Performed By: #### A CA, 5124-3, 99146-6, 34597-7, 11941-5 #### [facility] ([id number]) [address], [address] [place] [address] Sodium [Moles/Vol] 138 mmol/L Normal 134-146 [facility] Comment on above: Performed By: #### A CA, 5124-3, 92681-6, 25241-3, 28546-2 #### [facility] ([id number]) [address], [facility] [address] [place] [address] Urea nitrogen [Mass/Vol] 17 mg/dL Normal 5-23 [facility] Comment on above: Performed By: #### A CA, 5124-3, 64010-3, 35113-1, 02700-6 #### [facility] ([id number]) [address], [address] [place] [address] CBC AND AUTO DIFFon 10-06-19 24 ABSOLUTE BASOPHIL 0.1 X10E9/L Normal 0.0-0.2 [facility] Comment on above: Performed By: #### A CA, 5124-3, 89927-2, 78668-3, 74813-7 #### [facility] ([id number]) [address], [address] [place] [address] ABSOLUTE NEUTROPHIL 8.4 X10E9/L High 1.5-6.6 [facility] Comment on above: Performed By: #### A PARUL, 5124-3, 86879-3, 73012-3, 81218-2 #### [facility] ([id number]) [address], [address] [address] Basophils/100 WBC (Bld) 0.4 % Normal [facility] Comment on above: Performed By: #### A PARUL, 5124-3, 07044-8, 24407-8, 04165-9 #### [facility] ([id number]) [address], [address] [address] Eosinophils (Bld) [#/Vol] 0.2 10*3/uL Normal 0.0-0.4 [facility] Comment on above: Performed By: #### A PARUL, 5124-3, 60378-7, 53944-1, 75333-2 #### [facility] ([id number]) [address], [address] [address] Eosinophils/100 WBC (Bld) 1.5 % Normal [facility] Comment on above: Performed By: #### A PARUL, 5124-3, 62869-4, 16188-4, 07809-7 #### [facility] ([id number]) [address], [address] [address] Erythrocyte distribution width (RBC) [Ratio] 12.6 % Normal 11.5-15.0 [facility] Comment on above: Performed By: #### A PARUL, 5124-3, 13337-6, 65296-7, 68842-4 #### [facility] ([id number]) [address], [address] [place] [address] Hematocrit (Bld) [Volume fraction] 37.4 % Normal 35-47 [facility] Comment on above: Performed By: #### A CA, 5124-3, 15222-4, 92550-0, 23054-1 #### [facility] ([id number]) [address], [facility] [address] [place] [address] Hemoglobin (Bld) [Mass/Vol] 13.1 g/dL Normal 11.7-15.5 [facility] Comment on above: Performed By: #### A CA, 5124-3, 38638-8, 54278-6, 53651-1 #### [facility] ([id number]) [address], [address] [address] Lymphocytes (Bld) [#/Vol] 5.1 10*3/uL High 1.0-3.5 [facility] Comment on above: Performed By: #### A CA, 5124-3, 20841-6, 10979-9, 14860-7 #### [facility] ([id number]) [address], [address] [address] Lymphocytes/100 WBC (Bld) 34.8 % Normal [facility] Comment on above: Performed By: #### A CA, 5124-3, 21319-8, 58404-9, 01123-3 #### [facility] ([id number]) [address], [facility] [address] [place] [address] MCH (RBC) [Entitic mass] 30.9 pg Normal 27-34 [facility] Comment on above: Performed By: #### A CA, 5124-3, 48245-7, 15314-7, 90110-3 #### [facility] ([id number]) [address] [address] [place] [address] MCHC (RBC) [Mass/Vol] 34.9 g/dL Normal 32-36 [facility] Comment on above: Performed By: #### A CA, 5124-3, 37789-6, 25493-3, 52505-4 #### [facility] ([id number]) [address], [address] [place] [address] MCV (RBC) [Entitic vol] 88 fL Normal 80-100 [facility] Comment on above: Performed By: #### A CA, 5124-3, 45583-1, 42515-4, 39130-3 #### [facility] ([id number]) [address], [facility] [address] [place] [address] Monocytes (Bld) [#/Vol] 0.8 10*3/uL Normal 0-0.9 [facility] Comment on above: Performed By: #### A PARUL, 5124-3, 77722-6, 14223-4, 58318-2 #### [facility] ([id number]) [address], [facility] [address] [place] [address] Monocytes/100 WBC (Bld) 5.7 % Normal [facility] Comment on above: Performed By: #### A CA, 5124-3, 81015-6, 22589-0, 02149-0 #### [facility] ([id number]) [address], [facility] [address] [place] [address] Neutrophils/100 WBC (Bld) 57.6 % Normal [facility] Comment on above: Performed By: #### A CA, 5124-3, 41055-1, 20432-8, 35023-7 #### [facility] ([id number]) [address], [address] [place] [address] Platelet mean volume (Bld) [Entitic vol] 7.9 fL Normal 7-12 [facility] Comment on above: Performed By: #### A CA, 5124-3, 50541-6, 59673-3, 26892-4 #### [facility] ([id number]) [address], [address] [place] [address] Platelets (Bld) [#/Vol] 398 10*3/uL Normal 150-450 [facility] Comment on above: Performed By: #### A CA, 5124-3, 68818-6, 42585-7, 02979-5 #### [facility] ([id number]) [address], [address] [place] [address] RBC COUNT 4.23 X10E12/L Normal 3.80-5.20 [facility] Comment on above: Performed By: #### A CA, 5124-3, 55781-8, 54218-4, 10328-9 #### [facility] ([id number]) [address], [address] [place] [address] WBC (Bld) [#/Vol] 14.7 10*3/uL High 4.0-11.0 [facility] Comment on above: Performed By: #### A CA, 5124-3, 54764-1, 71436-9, 34597-9 #### [facility] ([id number]) [address], [address] [place] [address] COMPREHENSIVE METABOLIC PANE Yasmani 10-06-2023 Albumin [Mass/Vol] 3.2 g/dL Normal 3.2-5.3 [facility] Comment on above: Performed By: #### A CA, 5124-3, 34192-3, 11384-0, 42088-2 #### [facility] ([id number]) [address], [address] [place] [address] ALP [Catalytic activity/Vol] 71 U/L Normal 39-130 [facility] Comment on above: Performed By: #### A CA, 5124-3, 06016-9, 59541-8, 29347-2 #### [facility] ([id number]) [address], [address] [place] [address] ALT [Catalytic activity/Vol] 12 U/L Normal 0-31 [facility] Comment on above: Performed By: #### A CA, 5124-3, 62341-5, 28362-5, 96495-5 #### [facility] ([id number]) [address], [address] [place] [address] Anion gap [Moles/Vol] 10 mmol/L Normal 5-15 [facility] Comment on above: Performed By: #### A CA, 5124-3, 98625-0, 22654-9, 04060-8 #### [facility] ([id number]) [address], [address] [place] [address] AST [Catalytic activity/Vol] 17 U/L Normal 0-41 [facility] Comment on above: Performed By: #### A CA, 5124-3, 81188-6, 85420-2, 45908-8 #### [facility] ([id number]) [address], [address] [place] [address] Bilirubin [Mass/Vol] 0.3 mg/dL Normal 0.3-1.2 [facility] Comment on above: Performed By: #### A CA, 5124-3, 34450-3, 67827-8, 26469-9 #### [facility] ([id number]) [address], [address] [place] [address] Calcium [Mass/Vol] 9.1 mg/dL Normal 8.5-10.5 [facility] Comment on above: Performed By: #### A CA, 5124-3, 16115-6, 70763-7, 74658-9 #### [facility] ([id number]) [address], [address] [place] [address] Chloride [Moles/Vol] 103 mmol/L Normal 98-109 [facility] Comment on above: Performed By: #### A CA, 5124-3, 19422-7, 86650-6, 77876-8 #### [facility] ([id number]) [address] [address] [place] [address] CO2 [Moles/Vol] 24 mmol/L Normal 22-32 [facility] Comment on above: Performed By: #### A PARUL, 5124-3, 05152-7, 21651-8, 95704-7 #### [facility] ([id number]) [address] [address] [place] [address] Creatinine [Mass/Vol] 0.77 mg/dL Normal 0.40-1.00 [facility] Comment on above: Result Comment: METH OD TRACEABLE TO IDMS STANDARD Performed By: #### A PARUL, 5124-3, 06562-6, 29920-4, 47134-0 #### [facility] ([id number]) [address] [address] eGFR (CKD-EPI) NON-RACE DEPENDENT >90 Normal >59 [facility] Comment on above: Result Comment: Reported eGFR is based on the CKD-EPI 2020 equation that does not use a race coefficient. Performed By: #### A PARUL, 5124-3, 16092-6, 41632-2, 27158-0 #### [facility] ([id number]) [address] [address] Glucose [Mass/Vol] 75 mg/dL Normal 65-99 [facility] Comment on above: Performed By: #### A PARUL, 5124-3, 82150-3, 07163-6, 79395-2 #### [facility] ([id number]) [address] [address] Potassium [Moles/Vol] 4.2 mmol/L Normal 3.5-5.0 [facility] Comment on above: Performed By: #### A PARUL, 5124-3, 00519-2, 58272-6, 43765-4 #### [facility] ([id number]) [address] [address] Protein [Mass/Vol] 6.3 g/dL Normal 6.0-8.0 [facility] Comment on above: Performed By: #### A PARUL, 5124-3, 09406-0, 64656-2, 09011-0 #### [facility] ([id number]) [address], [address] [place] [address] Sodium [Moles/Vol] 137 mmol/L Normal 134-146 [facility] Comment on above: Performed By: #### A CA, 5124-3, 37925-7, 53958-9, 41811-2 #### [facility] ([id number]) [address], [address] [address] Urea nitrogen [Mass/Vol] 15 mg/dL Normal 5-23 [facility] Comment on above: Performed By: #### A PARUL, 5124-3, 80278-3, 28956-6, 64278-8 #### [facility] ([id number]) [address], [address] [place] [address] CBC AND AUTO DIFFon 10-04- 24 ABSOLUTE BASOPHIL 0.1 X10E9/L Normal 0.0-0.2 [facility] Comment on above: Performed By: #### A PARUL, 5124-3, 63910-7, 76863-9, 24063-7 #### [facility] ([id number]) [address], [address] [place] [address] ABSOLUTE NEUTROPHIL 9.6 X10E9/L High 1.5-6.6 [facility] Comment on above: Performed By: #### A PARUL, 5124-3, 45032-0, 56433-2, 47835-9 #### [facility] ([id number]) [address], [address] [place] [address] Basophils/100 WBC (Bld) 0.4 % Normal [facility] Comment on above: Performed By: #### A CA, 5124-3, 35966-6, 42650-5, 95585-0 #### [facility] ([id number]) [address] [address] [place] [address] Eosinophils (Bld) [#/Vol] 0.2 10*3/uL Normal 0.0-0.4 [facility] Comment on above: Performed By: #### A CA, 5124-3, 53610-0, 82991-7, 89022-8 #### [facility] ([id number]) [address] [address] Eosinophils/100 WBC (Bld) 1.2 % Normal [facility] Comment on above: Performed By: #### A CA, 5124-3, 51004-5, 35078-4, 07585-6 #### [facility] ([id number]) [address] [address] Erythrocyte distribution width (RBC) [Ratio] 13.3 % Normal 11.5-15.0 [facility] Comment on above: Performed By: #### A CA, 5124-3, 59863-8, 77447-1, 45583-7 #### [facility] ([id number]) [address] [address] Hematocrit (Bld) [Volume fraction] 39.9 % Normal 35-47 [facility] Comment on above: Performed By: #### A CA, 5124-3, 76594-1, 92842-0, 09975-4 #### [facility] ([id number]) [address] [address] Hemoglobin (Bld) [Mass/Vol] 13.5 g/dL Normal 11.7-15.5 [facility] Comment on above: Performed By: #### A CA, 5124-3, 35321-2, 12416-5, 55505-5 #### [facility] ([id number]) [address], [address] [place] [address] Lymphocytes (Bld) [#/Vol] 4.3 10*3/uL High 1.0-3.5 [facility] Comment on above: Performed By: #### A PARUL, 5124-3, 41525-3, 99931-8, 85078-0 #### [facility] ([id number]) [address], [facility] [address] [place] [address] Lymphocytes/100 WBC (Bld) 28.8 % Normal [facility] Comment on above: Performed By: #### A PARUL, 5124-3, 16959-5, 10320-9, 44616-6 #### [facility] ([id number]) [address], [facility] [address] [place] [address] MCH (RBC) [Entitic mass] 30.0 pg Normal 27-34 [facility] Comment on above: Performed By: #### A PARUL, 5124-3, 20532-7, 27791-1, 68025-3 #### [facility] ([id number]) [address], [facility] [address] [place] [address] MCHC (RBC) [Mass/Vol] 34.0 g/dL Normal 32-36 [facility] Comment on above: Performed By: #### A PARUL, 5124-3, 77909-9, 76643-4, 91406-3 #### [facility] ([id number]) [address], [address] [place] [address] MCV (RBC) [Entitic vol] 88 fL Normal 80-100 [facility] Comment on above: Performed By: #### A PARUL, 5124-3, 98368-5, 79324-3, 81322-6 #### [facility] ([id number]) [address], [address] [place] [address] Monocytes (Bld) [#/Vol] 0.8 10*3/uL Normal 0-0.9 [facility] Comment on above: Performed By: #### A CA, 5124-3, 42684-5, 44190-4, 84224-8 #### [facility] ([id number]) [address] [address] Monocytes/100 WBC (Bld) 5.1 % Normal [facility] Comment on above: Performed By: #### A CA, 5124-3, 17374-1, 78352-9, 67530-1 #### [facility] ([id number]) [address] [address] Neutrophils/100 WBC (Bld) 64.5 % Normal [facility] Comment on above: Performed By: #### A CA, 5124-3, 71205-1, 30299-8, 08476-9 #### [facility] ([id number]) [address] [address] Platelet mean volume (Bld) [Entitic vol] 7.9 fL Normal 7-12 [facility] Comment on above: Performed By: #### A CA, 5124-3, 67706-9, 59998-9, 94624-8 #### [facility] ([id number]) [address] [address] Platelets (Bld) [#/Vol] 420 10*3/uL Normal 150-450 [facility] Comment on above: Performed By: #### A CA, 5124-3, 48473-6, 86665-4, 07878-1 #### [facility] ([id number]) [address] [address] RBC COUNT 4.51 X10E12/L Normal 3.80-5.20 [facility] Comment on above: Performed By: #### A CA, 5124-3, 75804-2, 56958-1, 33921-3 #### [facility] ([id number]) [address], [address] [place] [address] WBC (Bld) [#/Vol] 14.8 10*3/uL High 4.0-11.0 [facility] Comment on above: Performed By: #### A CA, 5124-3, 21219-8, 77491-3, 55606-8 #### [facility] ([id number]) [address], [address] [place] [address] COMPREHENSIVE METABOLIC PANE Yasmani 10-05-2023 Albumin [Mass/Vol] 3.4 g/dL Normal 3.2-5.3 [facility] Comment on above: Performed By: #### A CA, 5124-3, 21846-5, 23948-9, 70145-6 #### [facility] ([id number]) [address], [address] [place] [address] ALP [Catalytic activity/Vol] 79 U/L Normal 39-130 [facility] Comment on above: Performed By: #### A CA, 5124-3, 03057-9, 66414-4, 27815-9 #### [facility] ([id number]) [address], [address] [place] [address] ALT [Catalytic activity/Vol] 12 U/L Normal 0-31 [facility] Comment on above: Performed By: #### A CA, 5124-3, 44967-9, 11799-9, 94177-6 #### [facility] ([id number]) [address], [address] [place] [address] Anion gap [Moles/Vol] 10 mmol/L Normal 5-15 [facility] Comment on above: Performed By: #### A CA, 5124-3, 02048-8, 79374-3, 94769-1 #### [facility] ([id number]) [address], [address] [place] [address] AST [Catalytic activity/Vol] 18 U/L Normal 0-41 [facility] Comment on above: Performed By: #### A CA, 5124-3, 07291-9, 91459-5, 50100-6 #### [facility] ([id number]) [address], [address] [place] [address] Bilirubin [Mass/Vol] 0.2 mg/dL Low 0.3-1.2 [facility] Comment on above: Performed By: #### A CA, 5124-3, 42649-2, 59974-7, 54661-7 #### [facility] ([id number]) [address], [address] [place] [address] Calcium [Mass/Vol] 9.2 mg/dL Normal 8.5-10.5 [facility] Comment on above: Performed By: #### A CA, 5124-3, 88251-3, 17191-6, 96187-0 #### [facility] ([id number]) [address], [address] [place] [address] Chloride [Moles/Vol] 104 mmol/L Normal 98-109 [facility] Comment on above: Performed By: #### A CA, 5124-3, 37158-9, 98845-8, 42136-2 #### [facility] ([id number]) [address], [address] [place] [address] CO2 [Moles/Vol] 23 mmol/L Normal 22-32 [facility] Comment on above: Performed By: #### A CA, 5124-3, 61324-4, 05057-4, 88173-1 #### [facility] ([id number]) [address], [address] [place] [address] Creatinine [Mass/Vol] 0.78 mg/dL Normal 0.40-1.00 [facility] Comment on above: Result Comment: METH OD TRACEABLE TO IDMS STANDARD Performed By: #### A CA, 5124-3, 36166-0, 57562-2, 40274-7 #### [facility] ([id number]) [address], [address] [place] [address] eGFR (CKD-EPI) NON-RACE DEPENDENT >90 Normal >59 [facility] Comment on above: Result Comment: Reported eGFR is based on the CKD-EPI 2020 equation that does not use a race coefficient. Performed By: #### A CA, 5124-3, 11468-8, 95939-0, 70274-0 #### [facility] ([id number]) [address], [address] [place] [address] Glucose [Mass/Vol] 93 mg/dL Normal 65-99 [facility] Comment on above: Performed By: #### A PARUL, 5124-3, 53384-4, 76688-0, 92380-5 #### [facility] ([id number]) [address], [address] [place] [address] Potassium [Moles/Vol] 3.9 mmol/L Normal 3.5-5.0 [facility] Comment on above: Performed By: #### A CA, 5124-3, 82053-0, 40056-0, 32320-0 #### [facility] ([id number]) [address], [address] [place] [address] Protein [Mass/Vol] 6.5 g/dL Normal 6.0-8.0 [facility] Comment on above: Performed By: #### A CA, 5124-3, 26055-6, 39483-4, 40319-4 #### [facility] ([id number]) [address], [address] [place] [address] Sodium [Moles/Vol] 137 mmol/L Normal 134-146 [facility] Comment on above: Performed By: #### A CA, 5124-3, 81002-9, 46925-9, 10006-8 #### [facility] ([id number]) [address], [address] [address] Urea nitrogen [Mass/Vol] 15 mg/dL Normal 5-23 [facility] Comment on above: Performed By: #### A PARUL, 5124-3, 37392-1, 91277-4, 44653-2 #### [facility] ([id number]) [address], [address] [address] CBC AND AUTO DIFFon 10-04-19 ABSOLUTE BASOPHIL 0.1 X10E9/L Normal 0.0-0.2 [facility] Comment on above: Performed By: #### A PARUL, 5124-3, 46184-0, 50683-9, 22178-0 #### [facility] ([id number]) [address], [address] [address] ABSOLUTE NEUTROPHIL 8.9 X10E9/L High 1.5-6.6 [facility] Comment on above: Performed By: #### A PARUL, 5124-3, 31592-5, 39446-1, 23636-1 #### [facility] ([id number]) [address], [address] [address] Basophils/100 WBC (Bld) 0.4 % Normal [facility] Comment on above: Performed By: #### A PARUL, 5124-3, 00391-7, 11754-8, 63375-2 #### [facility] ([id number]) [address] [address] Eosinophils (Bld) [#/Vol] 0.2 10*3/uL Normal 0.0-0.4 [facility] Comment on above: Performed By: #### A PARUL, 5124-3, 21167-9, 86205-5, 77923-7 #### [facility] ([id number]) [address] [address] [place] [address] Eosinophils/100 WBC (Bld) 1.5 % Normal [facility] Comment on above: Performed By: #### A CA, 5124-3, 33855-9, 52025-0, 98447-7 #### [facility] ([id number]) [address], [address] [address] Erythrocyte distribution width (RBC) [Ratio] 12.8 % Normal 11.5-15.0 [facility] Comment on above: Performed By: #### A PARUL, 5124-3, 83311-4, 98075-4, 33354-9 #### [facility] ([id number]) [address] [address] Hematocrit (Bld) [Volume fraction] 39.6 % Normal 35-47 [facility] Comment on above: Performed By: #### A PARUL, 5124-3, 67689-1, 81458-8, 85797-4 #### [facility] ([id number]) [address] [address] Hemoglobin (Bld) [Mass/Vol] 13.1 g/dL Normal 11.7-15.5 [facility] Comment on above: Performed By: #### A PARUL, 5124-3, 79290-2, 66545-4, 65818-7 #### [facility] ([id number]) [address] [address] Lymphocytes (Bld) [#/Vol] 5.2 10*3/uL High 1.0-3.5 [facility] Comment on above: Performed By: #### A CA, 5124-3, 71297-8, 87090-9, 69748-5 #### [facility] ([id number]) [address], [facility] [address] [place] [address] Lymphocytes/100 WBC (Bld) 34.0 % Normal [facility] Comment on above: Performed By: #### A CA, 5124-3, 81490-2, 37180-1, 37964-7 #### [facility] ([id number]) [address], [address] [place] [address] MCH (RBC) [Entitic mass] 30.1 pg Normal 27-34 [facility] Comment on above: Performed By: #### A CA, 5124-3, 86808-4, 31813-1, 74550-0 #### [facility] ([id number]) [address], [facility] [address] [place] [address] MCHC (RBC) [Mass/Vol] 33.2 g/dL Normal 32-36 [facility] Comment on above: Performed By: #### A PARUL, 5124-3, 17006-8, 36103-4, 21525-3 #### [facility] ([id number]) [address], [facility] [address] [place] [address] MCV (RBC) [Entitic vol] 91 fL Normal 80-100 [facility] Comment on above: Performed By: #### A CA, 5124-3, 72653-0, 52966-3, 99781-8 #### [facility] ([id number]) [address], [facility] [address] [place] [address] Monocytes (Bld) [#/Vol] 0.8 10*3/uL Normal 0-0.9 [facility] Comment on above: Performed By: #### A CA, 5124-3, 72405-4, 25845-0, 55512-8 #### [facility] ([id number]) [address], [facility] [address] [place] [address] Monocytes/100 WBC (Bld) 5.3 % Normal The [facility] Comment on above: Performed By: #### A CA, 5124-3, 08682-0, 26838-9, 89316-2 #### [facility] ([id number]) [address] [address] [place] [address] Neutrophils/100 WBC (Bld) 58.8 % Normal [facility] Comment on above: Performed By: #### A CA, 5124-3, 77524-4, 77894-4, 03091-9 #### [facility] ([id number]) [address], [address] [address] Platelet mean volume (Bld) [Entitic vol] 8.3 fL Normal 7-12 [facility] Comment on above: Performed By: #### A CA, 5124-3, 67892-4, 92299-7, 01940-9 #### [facility] ([id number]) [address] [address] Platelets (Bld) [#/Vol] 386 10*3/uL Normal 150-450 [facility] Comment on above: Performed By: #### A CA, 5124-3, 77541-3, 91846-3, 64126-7 #### [facility] ([id number]) [address] [address] RBC COUNT 4.37 X10E12/L Normal 3.80-5.20 [facility] Comment on above: Performed By: #### A CA, 5124-3, 31362-9, 32119-1, 87781-8 #### [facility] ([id number]) [address] [address] WBC (Bld) [#/Vol] 15.2 10*3/uL High 4.0-11.0 [facility] Comment on above: Performed By: #### A CA, 5124-3, 52766-2, 16934-0, 51905-6 #### [facility] ([id number]) [address] [place] [address] COMPREHENSIVE METABOLIC PANE Yasmani 10-04-2023 Albumin [Mass/Vol] 3.2 g/dL Normal 3.2-5.3 [facility] Comment on above: Performed By: #### A CA, 5124-3, 07232-7, 07560-0, 14788-9 #### [facility] ([id number]) [address], [address] [place] [address] ALP [Catalytic activity/Vol] 70 U/L Normal 39-130 [facility] Comment on above: Performed By: #### A CA, 5124-3, 61864-7, 73514-2, 62561-5 #### [facility] ([id number]) [address], [address] [place] [address] ALT [Catalytic activity/Vol] 12 U/L Normal 0-31 [facility] Comment on above: Performed By: #### A CA, 5124-3, 51044-5, 12783-5, 51347-5 #### [facility] ([id number]) [address], [facility] [address] [place] [address] Anion gap [Moles/Vol] 10 mmol/L Normal 5-15 [facility] Comment on above: Performed By: #### A CA, 5124-3, 82758-3, 02688-8, 82968-2 #### [facility] ([id number]) [address], [facility] [address] [place] [address] AST [Catalytic activity/Vol] 19 U/L Normal 0-41 [facility] Comment on above: Performed By: #### A CA, 5124-3, 80204-2, 25260-2, 94469-1 #### [facility] ([id number]) [address], [address] [place] [address] Bilirubin [Mass/Vol] 0.2 mg/dL Low 0.3-1.2 [facility] Comment on above: Performed By: #### A CA, 5124-3, 30401-6, 29358-6, 30392-0 #### [facility] ([id number]) [address], [facility] [address] [place] [address] Calcium [Mass/Vol] 9.0 mg/dL Normal 8.5-10.5 [facility] Comment on above: Performed By: #### A CA, 5124-3, 50169-3, 28007-5, 61586-8 #### [facility] ([id number]) [address], [facility] [address] [place] [address] Chloride [Moles/Vol] 105 mmol/L Normal 98-109 [facility] Comment on above: Performed By: #### A PARUL, 5124-3, 36368-3, 89806-4, 63622-7 #### [facility] ([id number]) [address], [address] [address] CO2 [Moles/Vol] 24 mmol/L Normal 22-32 [facility] Comment on above: Performed By: #### A PARUL, 5124-3, 72169-6, 74354-4, 64156-0 #### [facility] ([id number]) [address] [address] Creatinine [Mass/Vol] 0.77 mg/dL Normal 0.40-1.00 [facility] Comment on above: Result Comment: METH OD TRACEABLE TO IDMS STANDARD Performed By: #### A CA, 5124-3, 31032-0, 33619-6, 26558-3 #### [facility] ([id number]) [address], [facility] [address] [place] [address] eGFR (CKD-EPI) NON-RACE DEPENDENT >90 Normal >59 [facility] Comment on above: Result Comment: Reported eGFR is based on the CKD-EPI 2020 equation that does not use a race coefficient. Performed By: #### A PARUL, 5124-3, 30150-9, 77288-6, 21027-7 #### [facility] ([id number]) [address], [address] [place] [address] Glucose [Mass/Vol] 71 mg/dL Normal 65-99 [facility] Comment on above: Performed By: #### A CA, 5124-3, 13595-3, 46966-1, 95311-6 #### [facility] ([id number]) [address], [address] [place] [address] Potassium [Moles/Vol] 4.0 mmol/L Normal 3.5-5.0 [facility] Comment on above: Performed By: #### A CA, 5124-3, 12932-7, 46063-5, 98262-2 #### [facility] ([id number]) [address], [address] [place] [address] Protein [Mass/Vol] 6.3 g/dL Normal 6.0-8.0 [facility] Comment on above: Performed By: #### A CA, 5124-3, 14415-2, 71238-9, 35183-9 #### [facility] ([id number]) [address], [address] [place] [address] Sodium [Moles/Vol] 139 mmol/L Normal 134-146 [facility] Comment on above: Performed By: #### A CA, 5124-3, 33454-6, 48124-2, 59556-3 #### [facility] ([id number]) [address], [address] [place] [address] Urea nitrogen [Mass/Vol] 15 mg/dL Normal 5-23 [facility] Comment on above: Performed By: #### A CA, 5124-3, 33685-0, 53476-0, 65271-5 #### [facility] ([id number]) [address], [address] [place] [address] CBC AND AUTO DIFFon 10-03-19 ABSOLUTE BASOPHIL 0.1 X10E9/L Normal 0.0-0.2 [facility] Comment on above: Performed By: #### A CA, 5124-3, 71681-3, 95785-0, 18003-2 #### [facility] ([id number]) [address], [facility] [address] [place] [address] ABSOLUTE NEUTROPHIL 9.5 X10E9/L High 1.5-6.6 [facility] Comment on above: Performed By: #### A CA, 5124-3, 79869-1, 65140-1, 39964-2 #### [facility] ([id number]) [address], [address] [address] Basophils/100 WBC (Bld) 0.4 % Normal [facility] Comment on above: Performed By: #### A CA, 5124-3, 61172-0, 45313-7, 26266-4 #### [facility] ([id number]) [address], [address] [address] Eosinophils (Bld) [#/Vol] 0.1 10*3/uL Normal 0.0-0.4 [facility] Comment on above: Performed By: #### A CA, 5124-3, 37744-2, 22240-4, 19548-5 #### [facility] ([id number]) [address] [address] Eosinophils/100 WBC (Bld) 0.8 % Normal [facility] Comment on above: Performed By: #### A CA, 5124-3, 04990-1, 09239-8, 54003-2 #### [facility] ([id number]) [address], [facility] [address] [place] [address] Erythrocyte distribution width (RBC) [Ratio] 12.9 % Normal 11.5-15.0 [facility] Comment on above: Performed By: #### A CA, 5124-3, 91055-8, 72117-8, 27145-4 #### [facility] ([id number]) [address], [address] [place] [address] Hematocrit (Bld) [Volume fraction] 39.2 % Normal 35-47 [facility] Comment on above: Performed By: #### A CA, 5124-3, 10132-6, 55477-2, 14541-3 #### [facility] ([id number]) [address], [facility] [address] [place] [address] Hemoglobin (Bld) [Mass/Vol] 13.0 g/dL Normal 11.7-15.5 [facility] Comment on above: Performed By: #### A PARUL, 5124-3, 34222-7, 37352-9, 48517-5 #### [facility] ([id number]) [address], [address] [place] [address] Lymphocytes (Bld) [#/Vol] 4.4 10*3/uL High 1.0-3.5 [facility] Comment on above: Performed By: #### A PARUL, 5124-3, 41646-6, 96975-9, 19730-1 #### [facility] ([id number]) [address], [facility] [address] [place] [address] Lymphocytes/100 WBC (Bld) 29.4 % Normal [facility] Comment on above: Performed By: #### A CA, 5124-3, 70947-5, 34085-2, 98767-7 #### [facility] ([id number]) [address], [facility] [address] [place] [address] MCH (RBC) [Entitic mass] 30.1 pg Normal 27-34 [facility] Comment on above: Performed By: #### A PARUL, 5124-3, 44780-6, 36758-1, 01692-2 #### [facility] ([id number]) [address], [facility] [address] [place] [address] MCHC (RBC) [Mass/Vol] 33.2 g/dL Normal 32-36 [facility] Comment on above: Performed By: #### A CA, 5124-3, 28794-9, 18731-4, 22246-8 #### [facility] ([id number]) [address], [address] [address] MCV (RBC) [Entitic vol] 91 fL Normal 80-100 [facility] Comment on above: Performed By: #### A CA, 5124-3, 31925-5, 81319-2, 40749-3 #### [facility] ([id number]) [address] [address] Monocytes (Bld) [#/Vol] 0.9 10*3/uL Normal 0-0.9 [facility] Comment on above: Performed By: #### A CA, 5124-3, 05709-3, 22051-3, 45315-4 #### [facility] ([id number]) [address] [address] Monocytes/100 WBC (Bld) 6.2 % Normal [facility] Comment on above: Performed By: #### A CA, 5124-3, 72519-6, 42445-4, 97405-1 #### [facility] ([id number]) [address] [address] Neutrophils/100 WBC (Bld) 63.2 % Normal [facility] Comment on above: Performed By: #### A CA, 5124-3, 59597-2, 00595-1, 13225-4 #### [facility] ([id number]) [address], [facility] [address] [place] [address] Platelet mean volume (Bld) [Entitic vol] 8.5 fL Normal 7-12 [facility] Comment on above: Performed By: #### A CA, 5124-3, 17396-7, 64324-2, 53602-0 #### [facility] ([id number]) [address], [facility] [address] [place] [address] Platelets (Bld) [#/Vol] 359 10*3/uL Normal 150-450 [facility] Comment on above: Performed By: #### A CA, 5124-3, 72539-4, 42031-3, 41938-5 #### [facility] ([id number]) [address], [facility] [address] [place] [address] RBC COUNT 4.34 X10E12/L Normal 3.80-5.20 [facility] Comment on above: Performed By: #### A PARUL, 5124-3, 50198-6, 31414-0, 02266-5 #### [facility] ([id number]) [address] [address] [place] [address] WBC (Bld) [#/Vol] 14.9 10*3/uL High 4.0-11.0 [facility] Comment on above: Performed By: #### A CA, 5124-3, 65896-6, 55887-1, 12193-2 #### [facility] ([id number]) [address], [facility] [address] [place] [address] COMPREHENSIVE METABOLIC PANE Yasmani 10-03-2023 Albumin [Mass/Vol] 3.3 g/dL Normal 3.2-5.3 [facility] Comment on above: Performed By: #### A CA, 5124-3, 72061-2, 92699-7, 98479-1 #### [facility] ([id number]) [address], [facility] [address] [place] [address] ALP [Catalytic activity/Vol] 70 U/L Normal 39-130 [facility] Comment on above: Performed By: #### A CA, 5124-3, 83066-1, 11941-2, 60317-0 #### [facility] ([id number]) [address], [address] [place] [address] ALT [Catalytic activity/Vol] 10 U/L Normal 0-31 [facility] Comment on above: Performed By: #### A CA, 5124-3, 75761-7, 81266-6, 30781-5 #### [facility] ([id number]) [address], [facility] [address] [place] [address] Anion gap [Moles/Vol] 12 mmol/L Normal 5-15 [facility] Comment on above: Performed By: #### A CA, 5124-3, 09340-1, 39345-0, 91027-1 #### [facility] ([id number]) [address], [address] [place] [address] AST [Catalytic activity/Vol] 15 U/L Normal 0-41 [facility] Comment on above: Performed By: #### A CA, 5124-3, 89414-0, 57615-9, 36085-8 #### [facility] ([id number]) [address], [facility] [address] [place] [address] Bilirubin [Mass/Vol] 0.3 mg/dL Normal 0.3-1.2 [facility] Comment on above: Performed By: #### A CA, 5124-3, 45098-1, 93571-0, 74817-2 #### [facility] ([id number]) [address] [address] [place] [address] Calcium [Mass/Vol] 9.1 mg/dL Normal 8.5-10.5 [facility] Comment on above: Performed By: #### A CA, 5124-3, 93833-1, 54056-7, 58567-9 #### [facility] ([id number]) [address], [address] [place] [address] Chloride [Moles/Vol] 103 mmol/L Normal 98-109 [facility] Comment on above: Performed By: #### A CA, 5124-3, 27283-8, 42809-0, 43289-5 #### [facility] ([id number]) [address], [address] [place] [address] CO2 [Moles/Vol] 23 mmol/L Normal 22-32 [facility] Comment on above: Performed By: #### A CA, 5124-3, 64161-5, 15991-2, 31070-9 #### [facility] ([id number]) [address] [address] [place] [address] Creatinine [Mass/Vol] 0.83 mg/dL Normal 0.40-1.00 [facility] Comment on above: Result Comment: METH OD TRACEABLE TO IDMS STANDARD Performed By: #### A CA, 5124-3, 03618-6, 35341-8, 43208-3 #### [facility] ([id number]) [address] [address] [place] [address] eGFR (CKD-EPI) NON-RACE DEPENDENT >90 Normal >59 [facility] Comment on above: Result Comment: Reported eGFR is based on the CKD-EPI 2020 equation that does not use a race coefficient. Performed By: #### A CA, 5124-3, 41817-8, 15335-5, 32410-3 #### [facility] ([id number]) [address], [address] [place] [address] Glucose [Mass/Vol] 68 mg/dL Normal 65-99 [facility] Comment on above: Performed By: #### A CA, 5124-3, 26741-0, 14346-5, 16042-2 #### [facility] ([id number]) [address] [address] [place] [address] Potassium [Moles/Vol] 3.8 mmol/L Normal 3.5-5.0 [facility] Comment on above: Performed By: #### A CA, 5124-3, 77968-7, 13398-1, 49388-1 #### [facility] ([id number]) [address], [address] [address] Protein [Mass/Vol] 6.4 g/dL Normal 6.0-8.0 [facility] Comment on above: Performed By: #### A PARUL, 5124-3, 54866-7, 22719-0, 07087-9 #### [facility] ([id number]) [address] [address] Sodium [Moles/Vol] 138 mmol/L Normal 134-146 [facility] Comment on above: Performed By: #### A PARUL, 5124-3, 86111-7, 19146-9, 22688-0 #### [facility] ([id number]) [address] [address] Urea nitrogen [Mass/Vol] 18 mg/dL Normal 5-23 [facility] Comment on above: Performed By: #### A PARUL, 5124-3, 44491-6, 43811-0, 05615-1 #### [facility] ([id number]) [address] [address] CBC AND AUTO DIFFon 10-02-19 24 ABSOLUTE BASOPHIL 0.0 X10E9/L Normal 0.0-0.2 [facility] Comment on above: Performed By: #### A CA, 5124-3, 96665-4, 50251-9, 19886-9 #### [facility] ([id number]) [address] [address] ABSOLUTE NEUTROPHIL 12.3 X10E9/L High 1.5-6.6 [facility] Comment on above: Performed By: #### A CA, 5124-3, 06724-4, 96436-3, 32563-9 #### [facility] ([id number]) [address], [address] [place] [address] Basophils/100 WBC (Bld) 0.3 % Normal [facility] Comment on above: Performed By: #### A CA, 5124-3, 47516-5, 58788-7, 86394-7 #### [facility] ([id number]) [address], [facility] [address] [place] [address] Eosinophils (Bld) [#/Vol] 0.1 10*3/uL Normal 0.0-0.4 [facility] Comment on above: Performed By: #### A CA, 5124-3, 46324-4, 63383-4, 97803-8 #### [facility] ([id number]) [address], [address] [place] [address] Eosinophils/100 WBC (Bld) 0.7 % Normal [facility] Comment on above: Performed By: #### A CA, 5124-3, 75103-0, 61323-3, 55945-1 #### [facility] ([id number]) [address], [facility] [address] [place] [address] Erythrocyte distribution width (RBC) [Ratio] 13.3 % Normal 11.5-15.0 [facility] Comment on above: Performed By: #### A CA, 5124-3, 96183-3, 98145-0, 01467-5 #### [facility] ([id number]) [address], [facility] [address] [place] [address] Hematocrit (Bld) [Volume fraction] 40.3 % Normal 35-47 [facility] Comment on above: Performed By: #### A CA, 5124-3, 55332-7, 74710-6, 42574-3 #### [facility] ([id number]) [address], [facility] [address] [place] [address] Hemoglobin (Bld) [Mass/Vol] 13.4 g/dL Normal 11.7-15.5 [facility] Comment on above: Performed By: #### A CA, 5124-3, 05121-6, 08509-5, 93686-8 #### [facility] ([id number]) [address], [address] [address] Lymphocytes (Bld) [#/Vol] 3.0 10*3/uL Normal 1.0-3.5 [facility] Comment on above: Performed By: #### A CA, 5124-3, 19247-4, 74588-3, 19744-0 #### [facility] ([id number]) [address] [address] Lymphocytes/100 WBC (Bld) 18.3 % Normal [facility] Comment on above: Performed By: #### A CA, 5124-3, 48556-2, 15568-2, 53591-1 #### [facility] ([id number]) [address] [address] MCH (RBC) [Entitic mass] 30.1 pg Normal 27-34 [facility] Comment on above: Performed By: #### A CA, 5124-3, 15694-7, 45007-6, 19699-6 #### [facility] ([id number]) [address] [address] [place] [address] MCHC (RBC) [Mass/Vol] 33.3 g/dL Normal 32-36 [facility] Comment on above: Performed By: #### A CA, 5124-3, 24044-1, 06332-9, 09632-9 #### [facility] ([id number]) [address], [address] [address] MCV (RBC) [Entitic vol] 90 fL Normal 80-100 [facility] Comment on above: Performed By: #### A PARUL, 5124-3, 81224-9, 70780-1, 50470-7 #### [facility] ([id number]) [address] [address] Monocytes (Bld) [#/Vol] 1.1 10*3/uL High 0-0.9 [facility] Comment on above: Performed By: #### A PARUL, 5124-3, 28600-0, 58217-0, 72346-0 #### [facility] ([id number]) [address] [address] Monocytes/100 WBC (Bld) 6.5 % Normal [facility] Comment on above: Performed By: #### A PARUL, 5124-3, 04304-4, 19254-2, 65771-9 #### [facility] ([id number]) [address] [address] Neutrophils/100 WBC (Bld) 74.2 % Normal [facility] Comment on above: Performed By: #### A PARUL, 5124-3, 13284-7, 85038-2, 13194-9 #### [facility] ([id number]) [address] [address] Platelet mean volume (Bld) [Entitic vol] 8.1 fL Normal 7-12 [facility] Comment on above: Performed By: #### A PARUL, 5124-3, 52432-6, 05923-7, 25698-6 #### [facility] ([id number]) [address] [address] Platelets (Bld) [#/Vol] 353 10*3/uL Normal 150-450 [facility] Comment on above: Performed By: #### A PARUL, 5124-3, 46630-2, 77174-7, 75598-4 #### [facility] ([id number]) [address], [address] [place] [address] RBC COUNT 4.46 X10E12/L Normal 3.80-5.20 [facility] Comment on above: Performed By: #### A CA, 5124-3, 80249-5, 49104-8, 05308-3 #### [facility] ([id number]) [address], [address] [address] WBC (Bld) [#/Vol] 16.6 10*3/uL High 4.0-11.0 [facility] Comment on above: Performed By: #### A CA, 5124-3, 11925-4, 18145-1, 41310-9 #### [facility] ([id number]) [address] [place] [address] COMPREHENSIVE METABOLIC PANE Yasmani 10-02-2023 Albumin [Mass/Vol] 3.2 g/dL Normal 3.2-5.3 [facility] Comment on above: Performed By: #### A CA, 5124-3, 60341-6, 08093-0, 08793-0 #### [facility] ([id number]) [address], [address] [place] [address] ALP [Catalytic activity/Vol] 68 U/L Normal 39-130 [facility] Comment on above: Performed By: #### A CA, 5124-3, 59664-3, 77089-9, 19280-5 #### [facility] ([id number]) [address], [address] [place] [address] ALT [Catalytic activity/Vol] 12 U/L Normal 0-31 [facility] Comment on above: Performed By: #### A CA, 5124-3, 93507-0, 10177-0, 37230-9 #### [facility] ([id number]) [address], [address] [place] [address] Anion gap [Moles/Vol] 12 mmol/L Normal 5-15 [facility] Comment on above: Performed By: #### A CA, 5124-3, 04112-7, 00428-5, 55679-1 #### [facility] ([id number]) [address], [address] [place] [address] AST [Catalytic activity/Vol] 18 U/L Normal 0-41 [facility] Comment on above: Performed By: #### A CA, 5124-3, 36049-4, 11538-1, 99939-2 #### [facility] ([id number]) [address], [address] [place] [address] Bilirubin [Mass/Vol] 0.3 mg/dL Normal 0.3-1.2 [facility] Comment on above: Performed By: #### A CA, 5124-3, 94654-7, 81786-7, 35907-5 #### [facility] ([id number]) [address], [address] [place] [address] Calcium [Mass/Vol] 7.9 mg/dL Low 8.5-10.5 [facility] Comment on above: Performed By: #### A CA, 5124-3, 60550-7, 64154-5, 26228-9 #### [facility] ([id number]) [address], [address] [place] [address] Chloride [Moles/Vol] 101 mmol/L Normal 98-109 [facility] Comment on above: Performed By: #### A CA, 5124-3, 50988-7, 99646-6, 60728-4 #### [facility] ([id number]) [address], [address] [place] [address] CO2 [Moles/Vol] 23 mmol/L Normal 22-32 [facility] Comment on above: Performed By: #### A CA, 5124-3, 88136-9, 44278-6, 17443-5 #### [facility] ([id number]) [address], [facility] [address] [place] [address] Creatinine [Mass/Vol] 0.74 mg/dL Normal 0.40-1.00 [facility] Comment on above: Result Comment: METH OD TRACEABLE TO IDMS STANDARD Performed By: #### A CA, 5124-3, 80050-9, 39517-2, 36517-6 #### [facility] ([id number]) [address] [address] eGFR (CKD-EPI) NON-RACE DEPENDENT >90 Normal >59 [facility] Comment on above: Result Comment: Reported eGFR is based on the CKD-EPI 2020 equation that does not use a race coefficient. Performed By: #### A CA, 5124-3, 90735-4, 05398-5, 42893-1 #### [facility] ([id number]) [address], [facility] [address] [place] [address] Glucose [Mass/Vol] 83 mg/dL Normal 65-99 [facility] Comment on above: Performed By: #### A CA, 5124-3, 15530-7, 96554-2, 29810-6 #### [facility] ([id number]) [address] [address] [place] [address] Potassium [Moles/Vol] 4.1 mmol/L Normal 3.5-5.0 [facility] Comment on above: Performed By: #### A CA, 5124-3, 58904-2, 81791-7, 17022-5 #### [facility] ([id number]) [address], [facility] [address] [place] [address] Protein [Mass/Vol] 6.4 g/dL Normal 6.0-8.0 [facility] Comment on above: Performed By: #### A CA, 5124-3, 56127-6, 57927-4, 90280-6 #### [facility] ([id number]) [address], [address] [place] [address] Sodium [Moles/Vol] 136 mmol/L Normal 134-146 [facility] Comment on above: Performed By: #### A CA, 5124-3, 45864-2, 77230-7, 45235-7 #### [facility] ([id number]) [address], [facility] [address] [place] [address] Urea nitrogen [Mass/Vol] 13 mg/dL Normal 5-23 The [facility] Comment on above: Performed By: #### A CA, 5124-3, 31064-8, 91281-9, 81777-7 #### [facility] ([id number]) [address], [address] [place] [address] CBC AND AUTO DIFFon 10-01-19 24 ABSOLUTE BASOPHIL 0.1 X10E9/L Normal 0.0-0.2 [facility] Comment on above: Performed By: #### A CA, 5124-3, 34367-8, 52601-3, 45530-1 #### [facility] ([id number]) [address], [address] [place] [address] ABSOLUTE NEUTROPHIL 11.2 X10E9/L High 1.5-6.6 [facility] Comment on above: Performed By: #### A CA, 5124-3, 37916-7, 08189-2, 54552-3 #### [facility] ([id number]) [address] [address] Basophils/100 WBC (Bld) 0.6 % Normal [facility] Comment on above: Performed By: #### A CA, 5124-3, 80536-3, 41174-4, 93659-2 #### [facility] ([id number]) [address] [address] Eosinophils (Bld) [#/Vol] 0.1 10*3/uL Normal 0.0-0.4 [facility] Comment on above: Performed By: #### A CA, 5124-3, 34780-2, 09422-8, 83207-4 #### [facility] ([id number]) [address] [address] Eosinophils/100 WBC (Bld) 0.5 % Normal [facility] Comment on above: Performed By: #### A CA, 5124-3, 26757-8, 64811-6, 76796-3 #### [facility] ([id number]) [address] [address] Erythrocyte distribution width (RBC) [Ratio] 13.0 % Normal 11.5-15.0 [facility] Comment on above: Performed By: #### A CA, 5124-3, 25515-3, 03473-3, 63502-8 #### [facility] ([id number]) [address] [address] Hematocrit (Bld) [Volume fraction] 37.4 % Normal 35-47 [facility] Comment on above: Performed By: #### A CA, 5124-3, 95351-0, 26768-6, 88021-7 #### [facility] ([id number]) [address] [address] Hemoglobin (Bld) [Mass/Vol] 13.0 g/dL Normal 11.7-15.5 [facility] Comment on above: Performed By: #### A CA, 5124-3, 66745-5, 81342-6, 72793-8 #### [facility] ([id number]) [address] [address] Lymphocytes (Bld) [#/Vol] 3.4 10*3/uL Normal 1.0-3.5 [facility] Comment on above: Performed By: #### A CA, 5124-3, 43168-4, 63960-7, 67059-9 #### [facility] ([id number]) [address] [address] Lymphocytes/100 WBC (Bld) 21.5 % Normal [facility] Comment on above: Performed By: #### A CA, 5124-3, 11685-1, 21889-2, 15647-4 #### [facility] ([id number]) [address] [address] MCH (RBC) [Entitic mass] 30.8 pg Normal 27-34 [facility] Comment on above: Performed By: #### A CA, 5124-3, 22570-0, 31004-6, 20526-9 #### [facility] ([id number]) [address] [address] MCHC (RBC) [Mass/Vol] 34.9 g/dL Normal 32-36 [facility] Comment on above: Performed By: #### A CA, 5124-3, 18230-1, 23628-8, 45291-4 #### [facility] ([id number]) [address] [address] MCV (RBC) [Entitic vol] 88 fL Normal 80-100 [facility] Comment on above: Performed By: #### A CA, 5124-3, 70446-2, 99989-1, 99813-0 #### [facility] ([id number]) [address] [address] Monocytes (Bld) [#/Vol] 0.8 10*3/uL Normal 0-0.9 [facility] Comment on above: Performed By: #### A CA, 5124-3, 93753-6, 62605-5, 05767-6 #### [facility] ([id number]) [address], [facility] [address] [place] [address] Monocytes/100 WBC (Bld) 5.2 % Normal [facility] Comment on above: Performed By: #### A CA, 5124-3, 89088-0, 92406-7, 39678-9 #### [facility] ([id number]) [address], [facility] [address] [place] [address] Neutrophils/100 WBC (Bld) 72.2 % Normal [facility] Comment on above: Performed By: #### A CA, 5124-3, 33150-8, 57759-3, 29863-3 #### [facility] ([id number]) [address], [facility] [address] [place] [address] Platelet mean volume (Bld) [Entitic vol] 8.0 fL Normal 7-12 [facility] Comment on above: Performed By: #### A CA, 5124-3, 59318-5, 79163-4, 92894-4 #### [facility] ([id number]) [address] [address] Platelets (Bld) [#/Vol] 354 10*3/uL Normal 150-450 [facility] Comment on above: Performed By: #### A CA, 5124-3, 69622-1, 45445-9, 53533-7 #### [facility] ([id number]) [address] [address] [place] [address] RBC COUNT 4.24 X10E12/L Normal 3.80-5.20 [facility] Comment on above: Performed By: #### A CA, 5124-3, 05326-0, 58546-7, 40013-4 #### [facility] ([id number]) [address], [address] [place] [address] WBC (Bld) [#/Vol] 15.6 10*3/uL High 4.0-11.0 [facility] Comment on above: Performed By: #### A CA, 5124-3, 45392-2, 24368-2, 73631-6 #### [facility] ([id number]) [address], [address] [place] [address] ABSOLUTE BASOPHIL 0.1 X10E9/L Normal 0.0-0.2 [facility] Comment on above: Performed By: #### A PARUL, 5124-3, 98439-6, 00991-0, 46837-6 #### [facility] ([id number]) [address], [address] [place] [address] ABSOLUTE NEUTROPHIL 11.9 X10E9/L High 1.5-6.6 [facility] Comment on above: Performed By: #### A CA, 5124-3, 05817-2, 72348-5, 06520-1 #### [facility] ([id number]) [address], [address] [place] [address] Basophils/100 WBC (Bld) 0.4 % Normal [facility] Comment on above: Performed By: #### A CA, 5124-3, 75975-3, 14922-5, 20250-4 #### [facility] ([id number]) [address], [address] [place] [address] Eosinophils (Bld) [#/Vol] 0.1 10*3/uL Normal 0.0-0.4 [facility] Comment on above: Performed By: #### A CA, 5124-3, 42989-4, 66084-6, 50986-5 #### [facility] ([id number]) [address], [address] [place] [address] Eosinophils/100 WBC (Bld) 0.5 % Normal [facility] Comment on above: Performed By: #### A CA, 5124-3, 43629-6, 69254-0, 66901-8 #### [facility] ([id number]) [address] [address] Erythrocyte distribution width (RBC) [Ratio] 13.2 % Normal 11.5-15.0 [facility] Comment on above: Performed By: #### A CA, 5124-3, 05443-7, 42556-1, 58769-4 #### [facility] ([id number]) [address], [facility] [address] [place] [address] Hematocrit (Bld) [Volume fraction] 38.3 % Normal 35-47 [facility] Comment on above: Performed By: #### A PARUL, 5124-3, 31773-2, 34989-3, 99374-8 #### [facility] ([id number]) [address], [facility] [address] [place] [address] Hemoglobin (Bld) [Mass/Vol] 12.9 g/dL Normal 11.7-15.5 [facility] Comment on above: Performed By: #### A PARUL, 5124-3, 87495-6, 21150-3, 91380-3 #### [facility] ([id number]) [address], [address] [address] Lymphocytes (Bld) [#/Vol] 3.8 10*3/uL High 1.0-3.5 [facility] Comment on above: Performed By: #### A CA, 5124-3, 86174-2, 07913-6, 65824-0 #### [facility] ([id number]) [address] [address] Lymphocytes/100 WBC (Bld) 22.2 % Normal [facility] Comment on above: Performed By: #### A PARUL, 5124-3, 92658-8, 08914-0, 84688-1 #### [facility] ([id number]) [address] [address] [place] [address] MCH (RBC) [Entitic mass] 30.4 pg Normal 27-34 [facility] Comment on above: Performed By: #### A CA, 5124-3, 18740-4, 36368-4, 45340-1 #### [facility] ([id number]) [address] [address] MCHC (RBC) [Mass/Vol] 33.8 g/dL Normal 32-36 [facility] Comment on above: Performed By: #### A CA, 5124-3, 54364-2, 58905-2, 85867-5 #### [facility] ([id number]) [address] [address] MCV (RBC) [Entitic vol] 90 fL Normal 80-100 [facility] Comment on above: Performed By: #### A CA, 5124-3, 13846-0, 36997-4, 39275-2 #### [facility] ([id number]) [address] [address] Monocytes (Bld) [#/Vol] 1.1 10*3/uL High 0-0.9 [facility] Comment on above: Performed By: #### A CA, 5124-3, 56965-8, 18738-3, 65549-2 #### [facility] ([id number]) [address] [address] Monocytes/100 WBC (Bld) 6.5 % Normal [facility] Comment on above: Performed By: #### A CA, 5124-3, 12734-2, 22293-0, 94249-0 #### [facility] ([id number]) [address] [place] [address] Neutrophils/100 WBC (Bld) 70.4 % Normal [facility] Comment on above: Performed By: #### A CA, 5124-3, 85388-1, 60213-5, 60851-9 #### [facility] ([id number]) [address], [facility] [address] [place] [address] Platelet mean volume (Bld) [Entitic vol] 8.2 fL Normal 7-12 [facility] Comment on above: Performed By: #### A PARUL, 5124-3, 06832-0, 88137-1, 56602-3 #### [facility] ([id number]) [address], [facility] [address] [place] [address] Platelets (Bld) [#/Vol] 336 10*3/uL Normal 150-450 [facility] Comment on above: Performed By: #### A PARUL, 5124-3, 09136-8, 53270-6, 32558-8 #### [facility] ([id number]) [address], [facility] [address] [place] [address] RBC COUNT 4.26 X10E12/L Normal 3.80-5.20 [facility] Comment on above: Performed By: #### A PARUL, 5124-3, 05874-5, 98472-4, 57017-8 #### [facility] ([id number]) [address], [facility] [address] [place] [address] WBC (Bld) [#/Vol] 17.0 10*3/uL High 4.0-11.0 [facility] Comment on above: Performed By: #### A CA, 5124-3, 66089-7, 06536-5, 60916-7 #### [facility] ([id number]) [address], [address] [place] [address] ABSOLUTE BASOPHIL 0.0 X10E9/L Normal 0.0-0.2 [facility] Comment on above: Performed By: #### A CA, 5124-3, 64022-1, 34310-7, 66637-4 #### [facility] ([id number]) [address], [address] [place] [address] ABSOLUTE NEUTROPHIL 11.5 X10E9/L High 1.5-6.6 [facility] Comment on above: Performed By: #### A CA, 5124-3, 82830-4, 34083-2, 86331-4 #### [facility] ([id number]) [address], [address] [address] Basophils/100 WBC (Bld) 0.3 % Normal [facility] Comment on above: Performed By: #### A CA, 5124-3, 65007-2, 17365-0, 36763-9 #### [facility] ([id number]) [address], [address] [place] [address] Eosinophils (Bld) [#/Vol] 0.0 10*3/uL Normal 0.0-0.4 [facility] Comment on above: Performed By: #### A CA, 5124-3, 90867-8, 18116-7, 47665-9 #### [facility] ([id number]) [address], [address] [place] [address] Eosinophils/100 WBC (Bld) 0.3 % Normal [facility] Comment on above: Performed By: #### A CA, 5124-3, 95175-6, 28225-3, 89299-1 #### [facility] ([id number]) [address], [address] [address] Erythrocyte distribution width (RBC) [Ratio] 13.2 % Normal 11.5-15.0 [facility] Comment on above: Performed By: #### A CA, 5124-3, 09338-7, 11977-6, 91383-9 #### [facility] ([id number]) [address] [address] [place] [address] Hematocrit (Bld) [Volume fraction] 38.6 % Normal 35-47 [facility] Comment on above: Performed By: #### A CA, 5124-3, 06897-1, 60499-3, 66574-2 #### [facility] ([id number]) [address] [address] [place] [address] Hemoglobin (Bld) [Mass/Vol] 13.2 g/dL Normal 11.7-15.5 [facility] Comment on above: Performed By: #### A PARUL, 5124-3, 88823-2, 36537-6, 33283-1 #### [facility] ([id number]) [address] [address] Lymphocytes (Bld) [#/Vol] 4.2 10*3/uL High 1.0-3.5 [facility] Comment on above: Performed By: #### A PARUL, 5124-3, 23185-2, 42049-7, 63583-3 #### [facility] ([id number]) [address] [address] Lymphocytes/100 WBC (Bld) 24.8 % Normal [facility] Comment on above: Performed By: #### A CA, 5124-3, 43941-0, 10062-8, 20282-2 #### [facility] ([id number]) [address] [address] [place] [address] MCH (RBC) [Entitic mass] 30.3 pg Normal 27-34 [facility] Comment on above: Performed By: #### A CA, 5124-3, 88923-1, 78889-1, 41629-7 #### [facility] ([id number]) [address] [address] [place] [address] MCHC (RBC) [Mass/Vol] 34.2 g/dL Normal 32-36 [facility] Comment on above: Performed By: #### A CA, 5124-3, 28980-5, 81994-1, 67139-7 #### [facility] ([id number]) [address], [facility] [address] [place] [address] MCV (RBC) [Entitic vol] 89 fL Normal 80-100 [facility] Comment on above: Performed By: #### A CA, 5124-3, 29451-4, 19058-8, 55730-8 #### [facility] ([id number]) [address], [address] [address] Monocytes (Bld) [#/Vol] 1.2 10*3/uL High 0-0.9 [facility] Comment on above: Performed By: #### A PARUL, 5124-3, 39456-5, 60894-5, 77489-9 #### [facility] ([id number]) [address], [address] [address] Monocytes/100 WBC (Bld) 7.2 % Normal [facility] Comment on above: Performed By: #### A CA, 5124-3, 41900-2, 77304-9, 94952-1 #### [facility] ([id number]) [address], [address] [address] Neutrophils/100 WBC (Bld) 67.4 % Normal [facility] Comment on above: Performed By: #### A CA, 5124-3, 50617-6, 00849-6, 84051-5 #### [facility] ([id number]) [address], [facility] [address] [place] [address] Platelet mean volume (Bld) [Entitic vol] 8.3 fL Normal 7-12 [facility] Comment on above: Performed By: #### A CA, 5124-3, 12347-2, 02104-4, 94961-2 #### [facility] ([id number]) [address], [address] [address] Platelets (Bld) [#/Vol] 345 10*3/uL Normal 150-450 [facility] Comment on above: Performed By: #### A CA, 5124-3, 50761-2, 11568-5, 32015-1 #### [facility] ([id number]) [address], [facility] [address] [place] [address] RBC COUNT 4.35 X10E12/L Normal 3.80-5.20 [facility] Comment on above: Performed By: #### A CA, 5124-3, 79206-1, 53584-0, 41679-0 #### [facility] ([id number]) [address], [address] [address] WBC (Bld) [#/Vol] 17.1 10*3/uL High 4.0-11.0 [facility] Comment on above: Performed By: #### A CA, 5124-3, 65563-1, 70030-8, 50407-3 #### [facility] ([id number]) [address], [address] [address] COMPREHENSIVE METABOLIC PANE Yasmani 10-01-2023 Albumin [Mass/Vol] 3.3 g/dL Normal 3.2-5.3 [facility] Comment on above: Performed By: #### A CA, 5124-3, 98996-0, 21073-3, 46671-7 #### [facility] ([id number]) [address], [facility] [address] [place] [address] ALP [Catalytic activity/Vol] 69 U/L Normal 39-130 [facility] Comment on above: Performed By: #### A CA, 5124-3, 75069-9, 68067-8, 18359-6 #### [facility] ([id number]) [address], [address] [place] [address] ALT [Catalytic activity/Vol] 10 U/L Normal 0-31 [facility] Comment on above: Performed By: #### A CA, 5124-3, 10302-0, 42477-3, 64381-6 #### [facility] ([id number]) [address], [address] [place] [address] Anion gap [Moles/Vol] 10 mmol/L Normal 5-15 [facility] Comment on above: Performed By: #### A CA, 5124-3, 50584-6, 47162-3, 84973-9 #### [facility] ([id number]) [address], [address] [place] [address] AST [Catalytic activity/Vol] 21 U/L Normal 0-41 [facility] Comment on above: Performed By: #### A CA, 5124-3, 38923-0, 60288-4, 55500-9 #### [facility] ([id number]) [address], [address] [place] [address] Bilirubin [Mass/Vol] 0.3 mg/dL Normal 0.3-1.2 [facility] Comment on above: Performed By: #### A CA, 5124-3, 44204-3, 32276-1, 67934-0 #### [facility] ([id number]) [address], [address] [place] [address] Calcium [Mass/Vol] 8.0 mg/dL Low 8.5-10.5 [facility] Comment on above: Performed By: #### A CA, 5124-3, 14158-4, 12401-3, 20732-7 #### [facility] ([id number]) [address], [address] [place] [address] Chloride [Moles/Vol] 102 mmol/L Normal 98-109 [facility] Comment on above: Performed By: #### A CA, 5124-3, 41979-3, 80819-1, 92286-6 #### [facility] ([id number]) [address], [address] [place] [address] CO2 [Moles/Vol] 21 mmol/L Low 22-32 [facility] Comment on above: Performed By: #### A CA, 5124-3, 51477-7, 35047-5, 65802-3 #### [facility] ([id number]) [address], [facility] [address] [place] [address] Creatinine [Mass/Vol] 0.64 mg/dL Normal 0.40-1.00 [facility] Comment on above: Result Comment: METH OD TRACEABLE TO IDMS STANDARD Performed By: #### A PARUL, 5124-3, 72159-8, 59896-3, 60793-6 #### [facility] ([id number]) [address], [address] [place] [address] eGFR (CKD-EPI) NON-RACE DEPENDENT >90 Normal >59 [facility] Comment on above: Result Comment: Reported eGFR is based on the CKD-EPI 2020 equation that does not use a race coefficient. Performed By: #### A PARUL, 5124-3, 97579-6, 04035-9, 65680-1 #### [facility] ([id number]) [address], [address] [place] [address] Glucose [Mass/Vol] 95 mg/dL Normal 65-99 [facility] Comment on above: Performed By: #### A CA, 5124-3, 68868-2, 93736-8, 38992-8 #### [facility] ([id number]) [address], [address] [place] [address] Potassium [Moles/Vol] 4.1 mmol/L Normal 3.5-5.0 [facility] Comment on above: Performed By: #### A CA, 5124-3, 22278-1, 19492-6, 51629-8 #### [facility] ([id number]) [address], [address] [place] [address] Protein [Mass/Vol] 6.2 g/dL Normal 6.0-8.0 [facility] Comment on above: Performed By: #### A CA, 5124-3, 91347-2, 32741-9, 70245-9 #### [facility] ([id number]) [address], [address] [place] [address] Sodium [Moles/Vol] 133 mmol/L Low 134-146 [facility] Comment on above: Performed By: #### A CA, 5124-3, 22407-7, 04891-7, 33110-0 #### [facility] ([id number]) [address] [place] [address] Urea nitrogen [Mass/Vol] 11 mg/dL Normal 5-23 [facility] Comment on above: Performed By: #### A CA, 5124-3, 35638-5, 43680-7, 67551-6 #### [facility] ([id number]) [address], [address] [place] [address] Albumin [Mass/Vol] 3.3 g/dL Normal 3.2-5.3 [facility] Comment on above: Performed By: #### A CA, 5124-3, 01308-2, 21075-0, 42079-0 #### [facility] ([id number]) [address], [address] [place] [address] ALP [Catalytic activity/Vol] 61 U/L Normal 39-130 [facility] Comment on above: Performed By: #### A CA, 5124-3, 73580-3, 43809-6, 41718-5 #### [facility] ([id number]) [address], [address] [place] [address] ALT [Catalytic activity/Vol] 12 U/L Normal 0-31 [facility] Comment on above: Performed By: #### A CA, 5124-3, 28645-0, 52010-2, 31273-8 #### [facility] ([id number]) [address], [address] [place] [address] Anion gap [Moles/Vol] 11 mmol/L Normal 5-15 [facility] Comment on above: Performed By: #### A CA, 5124-3, 87622-5, 83861-1, 81031-2 #### [facility] ([id number]) [address], [address] [place] [address] AST [Catalytic activity/Vol] 23 U/L Normal 0-41 [facility] Comment on above: Performed By: #### A CA, 5124-3, 26784-2, 60024-2, 24576-9 #### [facility] ([id number]) [address], [address] [place] [address] Bilirubin [Mass/Vol] 0.2 mg/dL Low 0.3-1.2 [facility] Comment on above: Performed By: #### A CA, 5124-3, 31390-6, 15769-4, 34438-0 #### [facility] ([id number]) [address], [address] [place] [address] Calcium [Mass/Vol] 8.4 mg/dL Low 8.5-10.5 [facility] Comment on above: Performed By: #### A CA, 5124-3, 50722-1, 13896-4, 92105-6 #### [facility] ([id number]) [address], [address] [place] [address] Chloride [Moles/Vol] 103 mmol/L Normal 98-109 [facility] Comment on above: Performed By: #### A CA, 5124-3, 91236-1, 24860-6, 97823-6 #### [facility] ([id number]) [address], [facility] [address] [place] [address] CO2 [Moles/Vol] 20 mmol/L Low 22-32 [facility] Comment on above: Performed By: #### A PARUL, 5124-3, 93997-8, 36102-2, 70139-0 #### [facility] ([id number]) [address], [facility] [address] [place] [address] Creatinine [Mass/Vol] 0.57 mg/dL Normal 0.40-1.00 [facility] Comment on above: Result Comment: METH OD TRACEABLE TO IDMS STANDARD Performed By: #### A PARUL, 5124-3, 75410-2, 92204-7, 06623-4 #### [facility] ([id number]) [address], [address] [address] eGFR (CKD-EPI) NON-RACE DEPENDENT >90 Normal >59 [facility] Comment on above: Result Comment: Reported eGFR is based on the CKD-EPI 2020 equation that does not use a race coefficient. Performed By: #### A PARUL, 5124-3, 76928-2, 49889-4, 49260-2 #### [facility] ([id number]) [address], [facility] [address] [place] [address] Glucose [Mass/Vol] 77 mg/dL Normal 65-99 [facility] Comment on above: Performed By: #### A PARUL, 5124-3, 73736-8, 61132-5, 07902-6 #### [facility] ([id number]) [address] [address] [place] [address] Potassium [Moles/Vol] 3.9 mmol/L Normal 3.5-5.0 [facility] Comment on above: Performed By: #### A PARUL, 5124-3, 59223-7, 07543-0, 46437-4 #### [facility] ([id number]) [address], [address] [place] [address] Protein [Mass/Vol] 6.2 g/dL Normal 6.0-8.0 [facility] Comment on above: Performed By: #### A CA, 5124-3, 67709-5, 67391-7, 90002-2 #### [facility] ([id number]) [address], [address] [place] [address] Sodium [Moles/Vol] 134 mmol/L Normal 134-146 [facility] Comment on above: Performed By: #### A CA, 5124-3, 83729-9, 56845-9, 82853-5 #### [facility] ([id number]) [address] [address] [place] [address] Urea nitrogen [Mass/Vol] 12 mg/dL Normal 5-23 [facility] Comment on above: Performed By: #### A CA, 5124-3, 94190-4, 24258-6, 15369-0 #### [facility] ([id number]) [address], [address] [place] [address] Albumin [Mass/Vol] 3.4 g/dL Normal 3.2-5.3 [facility] Comment on above: Performed By: #### A CA, 5124-3, 49648-6, 48893-4, 79391-2 #### [facility] ([id number]) [address], [address] [place] [address] ALP [Catalytic activity/Vol] 64 U/L Normal 39-130 [facility] Comment on above: Performed By: #### A CA, 5124-3, 24464-0, 09124-0, 64458-8 #### [facility] ([id number]) [address] [place] [address] ALT [Catalytic activity/Vol] 13 U/L Normal 0-31 [facility] Comment on above: Performed By: #### A CA, 5124-3, 00747-5, 01737-7, 31806-4 #### [facility] ([id number]) [address], [address] [place] [address] Anion gap [Moles/Vol] 12 mmol/L Normal 5-15 [facility] Comment on above: Performed By: #### A CA, 5124-3, 03181-1, 76104-5, 39540-1 #### [facility] ([id number]) [address], [address] [place] [address] AST [Catalytic activity/Vol] 22 U/L Normal 0-41 [facility] Comment on above: Performed By: #### A CA, 5124-3, 31920-6, 87130-1, 54105-5 #### [facility] ([id number]) [address], [address] [place] [address] Bilirubin [Mass/Vol] 0.2 mg/dL Low 0.3-1.2 [facility] Comment on above: Performed By: #### A CA, 5124-3, 17386-3, 68737-0, 52186-4 #### [facility] ([id number]) [address], [address] [place] [address] Calcium [Mass/Vol] 8.9 mg/dL Normal 8.5-10.5 [facility] Comment on above: Performed By: #### A CA, 5124-3, 12242-0, 99897-0, 66652-5 #### [facility] ([id number]) [address], [address] [place] [address] Chloride [Moles/Vol] 105 mmol/L Normal 98-109 [facility] Comment on above: Performed By: #### A CA, 5124-3, 40470-0, 53446-7, 56388-7 #### [facility] ([id number]) [address] [address] CO2 [Moles/Vol] 20 mmol/L Low 22-32 [facility] Comment on above: Performed By: #### A CA, 5124-3, 98810-3, 17093-4, 15505-8 #### [facility] ([id number]) [address] [address] Creatinine [Mass/Vol] 0.57 mg/dL Normal 0.40-1.00 [facility] Comment on above: Result Comment: METH OD TRACEABLE TO IDMS STANDARD Performed By: #### A PARUL, 5124-3, 69913-2, 00931-2, 99439-6 #### [facility] ([id number]) [address] [address] eGFR (CKD-EPI) NON-RACE DEPENDENT >90 Normal >59 [facility] Comment on above: Result Comment: Reported eGFR is based on the CKD-EPI 2020 equation that does not use a race coefficient. Performed By: #### A CA, 5124-3, 21713-7, 54098-4, 18904-9 #### [facility] ([id number]) [address] [address] Glucose [Mass/Vol] 77 mg/dL Normal 65-99 [facility] Comment on above: Performed By: #### A CA, 5124-3, 79967-7, 27558-0, 78709-0 #### [facility] ([id number]) [address] [address] Potassium [Moles/Vol] 3.9 mmol/L Normal 3.5-5.0 [facility] Comment on above: Performed By: #### A CA, 5124-3, 51254-0, 04817-5, 90568-7 #### [facility] ([id number]) [address], [address] [place] [address] Protein [Mass/Vol] 6.3 g/dL Normal 6.0-8.0 [facility] Comment on above: Performed By: #### A CA, 5124-3, 73786-9, 63773-8, 71852-1 #### [facility] ([id number]) [address], [address] [place] [address] Sodium [Moles/Vol] 137 mmol/L Normal 134-146 [facility] Comment on above: Performed By: #### A CA, 5124-3, 28962-6, 80297-9, 32829-9 #### [facility] ([id number]) [address] [address] [place] [address] Urea nitrogen [Mass/Vol] 15 mg/dL Normal 5-23 [facility] Comment on above: Performed By: #### A CA, 5124-3, 65087-3, 03510-5, 52302-0 #### [facility] ([id number]) [address] [address] LDH [Catalytic activity/Vol] on 10-01-2023 LDH 164 U/L Normal 100-235 [facility] Comment on above: Performed By: #### A CA, 5124-3, 59943-3, 20880-1, 54798-7 #### [facility] ([id number]) [address] [address] [place] [address] URIC ACIDon 10-01-2023 Urate [Mass/Vol] 6.3 mg/dL Normal 2.6-7.2 [facility] Comment on above: Performed By: #### A CA, 5124-3, 44171-0, 31642-2, 36136-8 #### [facility] ([id number]) [address], [address] [place] [address] CBC AND AUTO DIFFon 09-30-19 24 ABSOLUTE BASOPHIL 0.0 X10E9/L Normal 0.0-0.2 [facility] Comment on above: Performed By: #### A CA, 5124-3, 76323-2, 96224-1, 18347-9 #### [facility] ([id number]) [address], [facility] [address] [place] [address] ABSOLUTE NEUTROPHIL 7.9 X10E9/L High 1.5-6.6 [facility] Comment on above: Performed By: #### A PARUL, 5124-3, 94890-2, 60197-2, 66337-7 #### [facility] ([id number]) [address], [facility] [address] [place] [address] Basophils/100 WBC (Bld) 0.2 % Normal [facility] Comment on above: Performed By: #### A CA, 5124-3, 29058-1, 50471-3, 60085-9 #### [facility] ([id number]) [address] [address] Eosinophils (Bld) [#/Vol] 0.0 10*3/uL Normal 0.0-0.4 [facility] Comment on above: Performed By: #### A PARUL, 5124-3, 05851-7, 67945-9, 82150-7 #### [facility] ([id number]) [address] [address] Eosinophils/100 WBC (Bld) 0.2 % Normal [facility] Comment on above: Performed By: #### A CA, 5124-3, 87764-0, 50555-9, 28637-7 #### [facility] ([id number]) [address], [address] [place] [address] Erythrocyte distribution width (RBC) [Ratio] 13.1 % Normal 11.5-15.0 [facility] Comment on above: Performed By: #### A CA, 5124-3, 51314-2, 30196-2, 08536-5 #### [facility] ([id number]) [address], [address] [place] [address] Hematocrit (Bld) [Volume fraction] 37.6 % Normal 35-47 [facility] Comment on above: Performed By: #### A CA, 5124-3, 11685-5, 48564-1, 51338-6 #### [facility] ([id number]) [address], [facility] [address] [place] [address] Hemoglobin (Bld) [Mass/Vol] 12.6 g/dL Normal 11.7-15.5 [facility] Comment on above: Performed By: #### A PARUL, 5124-3, 41983-3, 42068-0, 05256-7 #### [facility] ([id number]) [address], [address] [place] [address] Lymphocytes (Bld) [#/Vol] 3.4 10*3/uL Normal 1.0-3.5 [facility] Comment on above: Performed By: #### A PARUL, 5124-3, 25568-0, 70696-4, 49252-8 #### [facility] ([id number]) [address], [address] [place] [address] Lymphocytes/100 WBC (Bld) 27.5 % Normal [facility] Comment on above: Performed By: #### A CA, 5124-3, 90314-1, 61952-5, 99118-8 #### [facility] ([id number]) [address], [address] [place] [address] MCH (RBC) [Entitic mass] 30.2 pg Normal 27-34 [facility] Comment on above: Performed By: #### A CA, 5124-3, 00318-8, 00547-1, 91473-8 #### [facility] ([id number]) [address], [facility] [address] [place] [address] MCHC (RBC) [Mass/Vol] 33.4 g/dL Normal 32-36 [facility] Comment on above: Performed By: #### A CA, 5124-3, 60608-6, 99350-1, 42852-4 #### [facility] ([id number]) [address], [address] [address] MCV (RBC) [Entitic vol] 90 fL Normal 80-100 [facility] Comment on above: Performed By: #### A CA, 5124-3, 66649-4, 25168-9, 74221-5 #### [facility] ([id number]) [address], [address] [address] Monocytes (Bld) [#/Vol] 1.1 10*3/uL High 0-0.9 [facility] Comment on above: Performed By: #### A CA, 5124-3, 26518-5, 12224-8, 44220-6 #### [facility] ([id number]) [address], [address] [address] Monocytes/100 WBC (Bld) 8.4 % Normal [facility] Comment on above: Performed By: #### A CA, 5124-3, 78027-9, 84602-6, 65350-1 #### [facility] ([id number]) [address], [address] [address] Neutrophils/100 WBC (Bld) 63.7 % Normal [facility] Comment on above: Performed By: #### A CA, 5124-3, 27569-4, 50887-2, 39298-3 #### [facility] ([id number]) [address] [address] Platelet mean volume (Bld) [Entitic vol] 8.3 fL Normal 7-12 [facility] Comment on above: Performed By: #### A CA, 5124-3, 52168-9, 60252-2, 05554-1 #### [facility] ([id number]) [address] [address] Platelets (Bld) [#/Vol] 319 10*3/uL Normal 150-450 [facility] Comment on above: Performed By: #### A CA, 5124-3, 74854-5, 48900-7, 95613-6 #### [facility] ([id number]) [address] [address] RBC COUNT 4.16 X10E12/L Normal 3.80-5.20 [facility] Comment on above: Performed By: #### A PARUL, 5124-3, 22055-8, 01124-0, 13791-1 #### [facility] ([id number]) [address] [address] WBC (Bld) [#/Vol] 12.5 10*3/uL High 4.0-11.0 [facility] Comment on above: Performed By: #### A CA, 5124-3, 07427-9, 39686-6, 53387-1 #### [facility] ([id number]) [address] [address] COMPREHENSIVE METABOLIC PANE Yasmani 09-30-2023 Albumin [Mass/Vol] 3.2 g/dL Normal 3.2-5.3 [facility] Comment on above: Performed By: #### A CA, 5124-3, 10230-9, 66971-3, 79667-9 #### [facility] ([id number]) [address] [address] ALP [Catalytic activity/Vol] 57 U/L Normal 39-130 [facility] Comment on above: Performed By: #### A CA, 5124-3, 13228-0, 52607-6, 72781-7 #### [facility] ([id number]) [address], [facility] [address] [place] [address] ALT [Catalytic activity/Vol] 12 U/L Normal 0-31 [facility] Comment on above: Performed By: #### A CA, 5124-3, 04692-5, 09991-5, 88939-1 #### [facility] ([id number]) [address], [facility] [address] [place] [address] Anion gap [Moles/Vol] 13 mmol/L Normal 5-15 [facility] Comment on above: Performed By: #### A CA, 5124-3, 48052-4, 78293-0, 13007-4 #### [facility] ([id number]) [address], [facility] [address] [place] [address] AST [Catalytic activity/Vol] 19 U/L Normal 0-41 [facility] Comment on above: Performed By: #### A CA, 5124-3, 77767-3, 40016-5, 32389-6 #### [facility] ([id number]) [address], [facility] [address] [place] [address] Bilirubin [Mass/Vol] 0.2 mg/dL Low 0.3-1.2 [facility] Comment on above: Performed By: #### A CA, 5124-3, 20001-3, 84055-1, 79852-0 #### [facility] ([id number]) [address], [facility] [address] [place] [address] Calcium [Mass/Vol] 8.9 mg/dL Normal 8.5-10.5 [facility] Comment on above: Performed By: #### A CA, 5124-3, 64770-9, 78856-6, 91088-3 #### [facility] ([id number]) [address], [address] [place] [address] Chloride [Moles/Vol] 105 mmol/L Normal 98-109 [facility] Comment on above: Performed By: #### A CA, 5124-3, 37527-4, 73989-1, 04090-4 #### [facility] ([id number]) [address], [address] [place] [address] CO2 [Moles/Vol] 21 mmol/L Low 22-32 [facility] Comment on above: Performed By: #### A CA, 5124-3, 81650-5, 27507-5, 57400-8 #### [facility] ([id number]) [address], [facility] [address] [place] [address] Creatinine [Mass/Vol] 0.64 mg/dL Normal 0.40-1.00 [facility] Comment on above: Result Comment: METH OD TRACEABLE TO IDMS STANDARD Performed By: #### A CA, 5124-3, 88333-9, 53345-1, 82015-4 #### [facility] ([id number]) [address], [facility] [address] [place] [address] eGFR (CKD-EPI) NON-RACE DEPENDENT >90 Normal >59 [facility] Comment on above: Result Comment: Reported eGFR is based on the CKD-EPI 2020 equation that does not use a race coefficient. Performed By: #### A CA, 5124-3, 99323-9, 40285-3, 24763-9 #### [facility] ([id number]) [address], [address] [place] [address] Glucose [Mass/Vol] 74 mg/dL Normal 65-99 [facility] Comment on above: Performed By: #### A CA, 5124-3, 44691-5, 73185-1, 92918-3 #### [facility] ([id number]) [address], [address] [place] [address] Potassium [Moles/Vol] 3.9 mmol/L Normal 3.5-5.0 [facility] Comment on above: Performed By: #### A CA, 5124-3, 65090-5, 51672-2, 76728-7 #### [facility] ([id number]) [address], [facility] [address] [place] [address] Protein [Mass/Vol] 6.0 g/dL Normal 6.0-8.0 [facility] Comment on above: Performed By: #### A CA, 5124-3, 01786-3, 81861-7, 82009-4 #### [facility] ([id number]) [address], [address] [place] [address] Sodium [Moles/Vol] 139 mmol/L Normal 134-146 [facility] Comment on above: Performed By: #### A CA, 5124-3, 65154-4, 41385-1, 35703-0 #### [facility] ([id number]) [address], [address] [address] Urea nitrogen [Mass/Vol] 19 mg/dL Normal 5-23 [facility] Comment on above: Performed By: #### A CA, 5124-3, 17619-0, 97996-2, 63113-1 #### [facility] ([id number]) [address], [address] [address] CBC AND AUTO DIFFon 09-29-19 24 ABSOLUTE BASOPHIL 0.0 X10E9/L Normal 0.0-0.2 [facility] Comment on above: Performed By: #### A CA, 5124-3, 75507-4, 14156-5, 53626-2 #### [facility] ([id number]) [address] [address] [place] [address] ABSOLUTE NEUTROPHIL 12.0 X10E9/L High 1.5-6.6 [facility] Comment on above: Performed By: #### A CA, 5124-3, 45522-1, 39018-8, 62465-5 #### [facility] ([id number]) [address], [address] [place] [address] Basophils/100 WBC (Bld) 0.2 % Normal [facility] Comment on above: Performed By: #### A CA, 5124-3, 48352-6, 80870-7, 98345-7 #### [facility] ([id number]) [address], [facility] [address] [place] [address] Eosinophils (Bld) [#/Vol] 0.0 10*3/uL Normal 0.0-0.4 [facility] Comment on above: Performed By: #### A PARUL, 5124-3, 04535-8, 97964-8, 40867-6 #### [facility] ([id number]) [address], [address] [place] [address] Eosinophils/100 WBC (Bld) 0.0 % Normal [facility] Comment on above: Performed By: #### A PARUL, 5124-3, 21042-6, 23029-6, 21638-3 #### [facility] ([id number]) [address], [address] [place] [address] Erythrocyte distribution width (RBC) [Ratio] 13.4 % Normal 11.5-15.0 [facility] Comment on above: Performed By: #### A CA, 5124-3, 97778-4, 21648-2, 79414-3 #### [facility] ([id number]) [address], [address] [place] [address] Hematocrit (Bld) [Volume fraction] 36.3 % Normal 35-47 [facility] Comment on above: Performed By: #### A PARUL, 5124-3, 72578-9, 20579-9, 87447-4 #### [facility] ([id number]) [address], [address] [place] [address] Hemoglobin (Bld) [Mass/Vol] 12.5 g/dL Normal 11.7-15.5 [facility] Comment on above: Performed By: #### A CA, 5124-3, 07267-0, 19649-0, 05942-8 #### [facility] ([id number]) [address], [facility] [address] [place] [address] Lymphocytes (Bld) [#/Vol] 1.9 10*3/uL Normal 1.0-3.5 [facility] Comment on above: Performed By: #### A CA, 5124-3, 27033-4, 90811-1, 35801-6 #### [facility] ([id number]) [address], [address] [address] Lymphocytes/100 WBC (Bld) 12.8 % Normal [facility] Comment on above: Performed By: #### A CA, 5124-3, 30129-8, 87485-6, 96510-2 #### [facility] ([id number]) [address], [facility] [address] [place] [address] MCH (RBC) [Entitic mass] 31.0 pg Normal 27-34 [facility] Comment on above: Performed By: #### A CA, 5124-3, 39984-9, 92067-1, 84724-1 #### [facility] ([id number]) [address], [facility] [address] [place] [address] MCHC (RBC) [Mass/Vol] 34.3 g/dL Normal 32-36 [facility] Comment on above: Performed By: #### A CA, 5124-3, 33926-2, 26348-5, 48433-9 #### [facility] ([id number]) [address] [place] [address] MCV (RBC) [Entitic vol] 90 fL Normal 80-100 [facility] Comment on above: Performed By: #### A CA, 5124-3, 40028-6, 87958-6, 46397-6 #### [facility] ([id number]) [address], [facility] [address] [place] [address] Monocytes (Bld) [#/Vol] 0.9 10*3/uL Normal 0-0.9 [facility] Comment on above: Performed By: #### A CA, 5124-3, 60514-3, 05931-2, 41452-4 #### [facility] ([id number]) [address], [facility] [address] [place] [address] Monocytes/100 WBC (Bld) 6.2 % Normal [facility] Comment on above: Performed By: #### A CA, 5124-3, 59804-4, 14441-0, 75401-7 #### [facility] ([id number]) [address] [address] [place] [address] Neutrophils/100 WBC (Bld) 80.8 % Normal [facility] Comment on above: Performed By: #### A CA, 5124-3, 73894-7, 44297-8, 79282-3 #### [facility] ([id number]) [address], [facility] [address] [place] [address] Platelet mean volume (Bld) [Entitic vol] 8.4 fL Normal 7-12 [facility] Comment on above: Performed By: #### A CA, 5124-3, 60521-1, 86282-9, 41552-2 #### [facility] ([id number]) [address] [address] [place] [address] Platelets (Bld) [#/Vol] 337 10*3/uL Normal 150-450 [facility] Comment on above: Performed By: #### A CA, 5124-3, 07929-1, 42029-8, 35278-2 #### [facility] ([id number]) [address], [address] [place] [address] RBC COUNT 4.02 X10E12/L Normal 3.80-5.20 [facility] Comment on above: Performed By: #### A CA, 5124-3, 22457-9, 37942-4, 00377-0 #### [facility] ([id number]) [address], [address] [place] [address] WBC (Bld) [#/Vol] 14.9 10*3/uL High 4.0-11.0 [facility] Comment on above: Performed By: #### A CA, 5124-3, 87945-4, 20017-6, 90788-2 #### [facility] ([id number]) [address], [address] [place] [address] COMPREHENSIVE METABOLIC PANE Yasmani 09-29-2023 Albumin [Mass/Vol] 3.4 g/dL Normal 3.2-5.3 [facility] Comment on above: Performed By: #### A CA, 5124-3, 25340-0, 93202-7, 81462-4 #### [facility] ([id number]) [address], [address] [place] [address] ALP [Catalytic activity/Vol] 67 U/L Normal 39-130 [facility] Comment on above: Performed By: #### A CA, 5124-3, 90854-4, 74838-3, 04860-8 #### [facility] ([id number]) [address], [address] [place] [address] ALT [Catalytic activity/Vol] 15 U/L Normal 0-31 [facility] Comment on above: Performed By: #### A CA, 5124-3, 40498-8, 30709-6, 50847-1 #### [facility] ([id number]) [address], [address] [place] [address] Anion gap [Moles/Vol] 9 mmol/L Normal 5-15 [facility] Comment on above: Performed By: #### A CA, 5124-3, 36228-4, 33680-2, 46257-9 #### [facility] ([id number]) [address] [place] [address] AST [Catalytic activity/Vol] 20 U/L Normal 0-41 [facility] Comment on above: Performed By: #### A CA, 5124-3, 96618-5, 52980-9, 14227-5 #### [facility] ([id number]) [address] [place] [address] Bilirubin [Mass/Vol] 0.2 mg/dL Low 0.3-1.2 [facility] Comment on above: Performed By: #### A CA, 5124-3, 00334-3, 97039-5, 99661-5 #### [facility] ([id number]) [address], [address] [place] [address] Calcium [Mass/Vol] 8.9 mg/dL Normal 8.5-10.5 [facility] Comment on above: Performed By: #### A CA, 5124-3, 92584-2, 85580-7, 69479-3 #### [facility] ([id number]) [address] [place] [address] Chloride [Moles/Vol] 106 mmol/L Normal 98-109 [facility] Comment on above: Performed By: #### A CA, 5124-3, 47212-9, 92009-3, 79291-2 #### [facility] ([id number]) [address] [place] [address] CO2 [Moles/Vol] 21 mmol/L Low 22-32 [facility] Comment on above: Performed By: #### A PARUL, 5124-3, 39925-8, 77674-9, 90734-0 #### [facility] ([id number]) [address], [facility] [address] [place] [address] Creatinine [Mass/Vol] 0.63 mg/dL Normal 0.40-1.00 [facility] Comment on above: Result Comment: METH OD TRACEABLE TO IDMS STANDARD Performed By: #### A PARUL, 5124-3, 57896-5, 93390-8, 22560-6 #### [facility] ([id number]) [address], [address] [address] eGFR (CKD-EPI) NON-RACE DEPENDENT >90 Normal >59 [facility] Comment on above: Result Comment: Reported eGFR is based on the CKD-EPI 2020 equation that does not use a race coefficient. Performed By: #### A PARUL, 5124-3, 52590-4, 05128-1, 87954-7 #### [facility] ([id number]) [address], [address] [address] Glucose [Mass/Vol] 101 mg/dL High 65-99 [facility] Comment on above: Performed By: #### A PARUL, 5124-3, 68807-7, 33226-1, 45509-2 #### [facility] ([id number]) [address] [address] Potassium [Moles/Vol] 4.2 mmol/L Normal 3.5-5.0 [facility] Comment on above: Performed By: #### A CA, 5124-3, 48935-0, 55203-5, 60873-5 #### [facility] ([id number]) [address] [address] Protein [Mass/Vol] 6.3 g/dL Normal 6.0-8.0 [facility] Comment on above: Performed By: #### A CA, 5124-3, 16018-0, 47547-4, 82144-4 #### [facility] ([id number]) [address], [address] [place] [address] Sodium [Moles/Vol] 136 mmol/L Normal 134-146 [facility] Comment on above: Performed By: #### A CA, 5124-3, 61465-4, 25243-0, 31909-2 #### [facility] ([id number]) [address], [facility] [address] [place] [address] Urea nitrogen [Mass/Vol] 17 mg/dL Normal 5-23 [facility] Comment on above: Performed By: #### A PARUL, 5124-3, 47789-4, 58537-8, 01724-5 #### [facility] ([id number]) [address], [facility] [address] [place] [address] Glucose Glucometer (BldC) [M ass/Vol]on 09-29-2023 Glucose [Mass/Vol] 89 mg/dL Normal 65-99 [facility] 24 HR URINE TOTAL PROTEINon 09-28-2023 URINE TOTAL PROTEIN 949 mg/24h High 0-150 [facility] Comment on above: Performed By: #### A PARUL, 5124-3, 96572-8, 47260-7, 23013-1 #### [facility] ([id number]) [address], [address] [place] [address] CBC AND AUTO DIFFon 09-28-19 24 ABSOLUTE BASOPHIL 0.0 X10E9/L Normal 0.0-0.2 [facility] Comment on above: Performed By: #### A CA, 5124-3, 76048-5, 95955-5, 68208-9 #### [facility] ([id number]) [address] [address] [place] [address] ABSOLUTE NEUTROPHIL 11.5 X10E9/L High 1.5-6.6 [facility] Comment on above: Performed By: #### A PARUL, 5124-3, 52032-2, 37964-2, 06445-4 #### [facility] ([id number]) [address], [facility] [address] [place] [address] Basophils/100 WBC (Bld) 0.1 % Normal [facility] Comment on above: Performed By: #### A PARUL, 5124-3, 11006-9, 92621-8, 66679-6 #### [facility] ([id number]) [address], [facility] [facility] [address] [place] [address] Eosinophils (Bld) [#/Vol] 0.0 10*3/uL Normal 0.0-0.4 [facility] Comment on above: Performed By: #### A PARUL, 5124-3, 12329-6, 87695-5, 18966-6 #### [facility] ([id number]) [address], [facility] [address] [place] [address] Eosinophils/100 WBC (Bld) 0.0 % Normal [facility] Comment on above: Performed By: #### A PARUL, 5124-3, 17893-7, 62295-1, 79369-2 #### [facility] ([id number]) [address], [facility] [address] [place] [address] Erythrocyte distribution width (RBC) [Ratio] 13.5 % Normal 11.5-15.0 [facility] Comment on above: Performed By: #### A PARUL, 5124-3, 28376-0, 31969-3, 49988-9 #### [facility] ([id number]) [address], [address] [place] [address] Hematocrit (Bld) [Volume fraction] 36.1 % Normal 35-47 [facility] Comment on above: Performed By: #### A CA, 5124-3, 71556-3, 31508-7, 90928-1 #### [facility] ([id number]) [address], [facility] [address] [place] [address] Hemoglobin (Bld) [Mass/Vol] 12.2 g/dL Normal 11.7-15.5 [facility] Comment on above: Performed By: #### A CA, 5124-3, 48600-3, 86725-4, 91650-5 #### [facility] ([id number]) [address], [address] [address] Lymphocytes (Bld) [#/Vol] 1.3 10*3/uL Normal 1.0-3.5 [facility] Comment on above: Performed By: #### A CA, 5124-3, 83507-2, 43670-9, 59442-2 #### [facility] ([id number]) [address] [address] Lymphocytes/100 WBC (Bld) 9.4 % Normal [facility] Comment on above: Performed By: #### A CA, 5124-3, 12567-8, 22923-8, 55317-7 #### [facility] ([id number]) [address] [address] MCH (RBC) [Entitic mass] 30.4 pg Normal 27-34 [facility] Comment on above: Performed By: #### A CA, 5124-3, 60811-8, 00878-7, 61226-8 #### [facility] ([id number]) [address] [address] MCHC (RBC) [Mass/Vol] 33.7 g/dL Normal 32-36 [facility] Comment on above: Performed By: #### A CA, 5124-3, 01093-1, 19660-3, 34565-9 #### [facility] ([id number]) [address], [address] [place] [address] MCV (RBC) [Entitic vol] 90 fL Normal 80-100 [facility] Comment on above: Performed By: #### A CA, 5124-3, 09651-1, 73620-8, 85380-1 #### [facility] ([id number]) [address], [facility] [address] [place] [address] Monocytes (Bld) [#/Vol] 0.8 10*3/uL Normal 0-0.9 [facility] Comment on above: Performed By: #### A CA, 5124-3, 85637-9, 32775-4, 61100-9 #### [facility] ([id number]) [address] [address] Monocytes/100 WBC (Bld) 5.6 % Normal [facility] Comment on above: Performed By: #### A CA, 5124-3, 11902-1, 09008-9, 23871-0 #### [facility] ([id number]) [address], [facility] [address] [place] [address] Neutrophils/100 WBC (Bld) 84.9 % Normal [facility] Comment on above: Performed By: #### A CA, 5124-3, 91253-9, 71264-7, 51403-3 #### [facility] ([id number]) [address], [facility] [address] [place] [address] Platelet mean volume (Bld) [Entitic vol] 8.5 fL Normal 7-12 [facility] Comment on above: Performed By: #### A CA, 5124-3, 96031-9, 52458-9, 61913-3 #### [facility] ([id number]) [address] [address] [place] [address] Platelets (Bld) [#/Vol] 311 10*3/uL Normal 150-450 [facility] Comment on above: Performed By: #### A CA, 5124-3, 70657-8, 06263-6, 76013-8 #### [facility] ([id number]) [address], [address] [place] [address] RBC COUNT 4.00 X10E12/L Normal 3.80-5.20 [facility] Comment on above: Performed By: #### A CA, 5124-3, 20942-8, 56199-0, 56475-0 #### [facility] ([id number]) [address], [address] [place] [address] WBC (Bld) [#/Vol] 13.6 10*3/uL High 4.0-11.0 [facility] Comment on above: Performed By: #### A CA, 5124-3, 52685-5, 71776-6, 57300-6 #### [facility] ([id number]) [address], [address] [place] [address] COMPREHENSIVE METABOLIC PANE Yasmani 09-28-2023 Albumin [Mass/Vol] 3.4 g/dL Normal 3.2-5.3 [facility] Comment on above: Performed By: #### A CA, 5124-3, 16292-3, 05362-8, 15222-5 #### [facility] ([id number]) [address], [address] [place] [address] ALP [Catalytic activity/Vol] 64 U/L Normal 39-130 [facility] Comment on above: Performed By: #### A CA, 5124-3, 70368-0, 16143-8, 43376-6 #### [facility] ([id number]) [address], [address] [place] [address] ALT [Catalytic activity/Vol] 15 U/L Normal 0-31 [facility] Comment on above: Performed By: #### A CA, 5124-3, 45320-9, 76522-6, 25808-0 #### [facility] ([id number]) [address], [address] [place] [address] Anion gap [Moles/Vol] 11 mmol/L Normal 5-15 [facility] Comment on above: Performed By: #### A CA, 5124-3, 28182-4, 69112-3, 65695-7 #### [facility] ([id number]) [address], [address] [place] [address] AST [Catalytic activity/Vol] 23 U/L Normal 0-41 [facility] Comment on above: Performed By: #### A CA, 5124-3, 04712-9, 47939-4, 64524-4 #### [facility] ([id number]) [address], [address] [place] [address] Bilirubin [Mass/Vol] 0.3 mg/dL Normal 0.3-1.2 [facility] Comment on above: Performed By: #### A CA, 5124-3, 40648-0, 22644-3, 00591-9 #### [facility] ([id number]) [address], [address] [place] [address] Calcium [Mass/Vol] 8.2 mg/dL Low 8.5-10.5 [facility] Comment on above: Performed By: #### A CA, 5124-3, 99304-8, 98060-4, 03249-1 #### [facility] ([id number]) [address], [address] [place] [address] Chloride [Moles/Vol] 103 mmol/L Normal 98-109 [facility] Comment on above: Performed By: #### A CA, 5124-3, 86216-0, 14209-5, 43733-6 #### [facility] ([id number]) [address], [address] [place] [address] CO2 [Moles/Vol] 20 mmol/L Low 22-32 [facility] Comment on above: Performed By: #### A PARUL, 5124-3, 30931-4, 99043-5, 29232-2 #### [facility] ([id number]) [address] [address] Creatinine [Mass/Vol] 0.70 mg/dL Normal 0.40-1.00 [facility] Comment on above: Result Comment: METH OD TRACEABLE TO IDMS STANDARD Performed By: #### A PARUL, 5124-3, 71829-4, 42615-3, 29855-9 #### [facility] ([id number]) [address] [address] eGFR (CKD-EPI) NON-RACE DEPENDENT >90 Normal >59 [facility] Comment on above: Result Comment: Reported eGFR is based on the CKD-EPI 2020 equation that does not use a race coefficient. Performed By: #### A PARUL, 5124-3, 50170-5, 97678-9, 92470-9 #### [facility] ([id number]) [address] [address] Glucose [Mass/Vol] 101 mg/dL High 65-99 [facility] Comment on above: Performed By: #### A PARUL, 5124-3, 00151-2, 26471-9, 96468-7 #### [facility] ([id number]) [address] [address] Potassium [Moles/Vol] 4.0 mmol/L Normal 3.5-5.0 [facility] Comment on above: Performed By: #### A PARUL, 5124-3, 86781-8, 87797-8, 09806-8 #### [facility] ([id number]) [address] [address] Protein [Mass/Vol] 6.4 g/dL Normal 6.0-8.0 [facility] Comment on above: Performed By: #### A PARUL, 5124-3, 05983-0, 52851-7, 36066-8 #### [facility] ([id number]) [address], [address] [place] [address] Sodium [Moles/Vol] 134 mmol/L Normal 134-146 [facility] Comment on above: Performed By: #### A PARUL, 5124-3, 22717-1, 73199-1, 47940-3 #### [facility] ([id number]) [address], [address] [place] [address] Urea nitrogen [Mass/Vol] 10 mg/dL Normal 5-23 [facility] Comment on above: Performed By: #### A PARUL, 5124-3, 80189-0, 10004-1, 41273-1 #### [facility] ([id number]) [address], [address] [place] [address] Glucose Glucometer (BldC) [M ass/Vol]on 09-28-2023 Glucose [Mass/Vol] 117 mg/dL High 65-99 [facility] Glucose [Mass/Vol] 139 mg/dL High 65-99 [facility] Glucose [Mass/Vol] 122 mg/dL High 65-99 [facility] Glucose [Mass/Vol] 105 mg/dL High 65-99 [facility] Glucose [Mass/Vol] 107 mg/dL High 65-99 [facility] Glucose [Mass/Vol] 114 mg/dL High 65-99 [facility] URINE VOLUME AND TIMEon 09-10 TIME 24 h Normal [facility] Comment on above: Performed By: #### A PARUL, 5124-3, 29429-6, 83182-6, 82303-1 #### [facility] ([id number]) [address], [address] [place] [address] TOTAL VOLUME 1860 mL Normal [facility] Comment on above: Performed By: #### A CA, 5124-3, 56011-0, 49663-3, 26885-9 #### [facility] ([id number]) [address], [address] [place] [address] COMPLETE BLOOD COUNTon 09-26 Erythrocyte distribution width (RBC) [Ratio] 13.1 % Normal 11.5-15.0 [facility] Comment on above: Performed By: #### A CA, 5124-3, 19471-3, 01213-0, 98681-9 #### [facility] ([id number]) [address], [facility] [address] [place] [address] Hematocrit (Bld) [Volume fraction] 38.6 % Normal 35-47 [facility] Comment on above: Performed By: #### A PARUL, 5124-3, 41363-2, 90684-3, 68504-4 #### [facility] ([id number]) [address], [facility] [address] [place] [address] Hemoglobin (Bld) [Mass/Vol] 13.2 g/dL Normal 11.7-15.5 [facility] Comment on above: Performed By: #### A CA, 5124-3, 46629-8, 30317-5, 09839-6 #### [facility] ([id number]) [address], [facility] [address] [place] [address] MCH (RBC) [Entitic mass] 30.7 pg Normal 27-34 [facility] Comment on above: Performed By: #### A CA, 5124-3, 47729-1, 44632-8, 85155-3 #### [facility] ([id number]) [address], [address] [place] [address] MCHC (RBC) [Mass/Vol] 34.1 g/dL Normal 32-36 [facility] Comment on above: Performed By: #### A CA, 5124-3, 07008-6, 80750-7, 15826-3 #### [facility] ([id number]) [address], [facility] [address] [place] [address] MCV (RBC) [Entitic vol] 90 fL Normal 80-100 [facility] Comment on above: Performed By: #### A CA, 5124-3, 01616-1, 07692-0, 70987-5 #### [facility] ([id number]) [address], [facility] [address] [place] [address] Platelet mean volume (Bld) [Entitic vol] 8.5 fL Normal 7-12 [facility] Comment on above: Performed By: #### A CA, 5124-3, 47681-2, 02325-7, 88299-2 #### [facility] ([id number]) [address], [facility] [address] [place] [address] Platelets (Bld) [#/Vol] 347 10*3/uL Normal 150-450 [facility] Comment on above: Performed By: #### A CA, 5124-3, 25410-0, 80674-5, 35403-1 #### [facility] ([id number]) [address], [facility] [address] [place] [address] RBC COUNT 4.29 X10E12/L Normal 3.80-5.20 [facility] Comment on above: Performed By: #### A CA, 5124-3, 10729-5, 13669-2, 58604-2 #### [facility] ([id number]) [address] [address] [place] [address] WBC (Bld) [#/Vol] 20.6 10*3/uL High 4.0-11.0 [facility] Comment on above: Performed By: #### A CA, 5124-3, 72923-9, 77984-4, 85769-7 #### [facility] ([id number]) [address], [address] [place] [address] COMPREHENSIVE METABOLIC PANE Yasmani 09-27-2023 Albumin [Mass/Vol] 3.6 g/dL Normal 3.2-5.3 [facility] Comment on above: Performed By: #### C MP, 2532-0, 3084-1, CBC, THYR, 30371-7 #### [facility] ([id number]) [address], [address] [place] [address] ALP [Catalytic activity/Vol] 80 U/L Normal 39-130 [facility] Comment on above: Performed By: #### C MP, 2532-0, 3084-1, CBC, THYR, 33738-0 #### [facility] ([id number]) [address], [address] [place] [address] ALT [Catalytic activity/Vol] 15 U/L Normal 0-31 [facility] Comment on above: Performed By: #### C MP, 2532-0, 3084-1, CBC, THYR, 31127-4 #### [facility] ([id number]) [address], [address] [place] [address] Anion gap [Moles/Vol] 13 mmol/L Normal 5-15 [facility] Comment on above: Performed By: #### C MP, 2532-0, 3084-1, CBC, THYR, 76043-7 #### [facility] ([id number]) [address], [address] [place] [address] AST [Catalytic activity/Vol] 25 U/L Normal 0-41 [facility] Comment on above: Performed By: #### C MP, 2532-0, 3084-1, CBC, THYR, 92485-9 #### [facility] ([id number]) [address], [address] [place] [address] Bilirubin [Mass/Vol] 0.3 mg/dL Normal 0.3-1.2 [facility] Comment on above: Performed By: #### C MP, 2532-0, 3084-1, CBC, THYR, 27344-3 #### [facility] ([id number]) [address], [address] [place] [address] Calcium [Mass/Vol] 8.9 mg/dL Normal 8.5-10.5 [facility] Comment on above: Performed By: #### C MP, 2532-0, 4-1, CBC, THYR, 28219-0 #### [facility] ([id number]) [address], [address] [place] [address] Chloride [Moles/Vol] 104 mmol/L Normal 98-109 [facility] Comment on above: Performed By: #### C MP, 2532-0, 3083-1, CBC, THYR, 95924-0 #### [facility] ([id number]) [address], [address] [place] [address] CO2 [Moles/Vol] 17 mmol/L Low 22-32 [facility] Comment on above: Performed By: #### C MP, 2532-0, 3083-1, CBC, THYR, 04450-8 #### [facility] ([id number]) [address], [address] [place] [address] Creatinine [Mass/Vol] 0.70 mg/dL Normal 0.40-1.00 [facility] Comment on above: Result Comment: METH OD TRACEABLE TO IDMS STANDARD Performed By: #### C MP, 2532-0, 3084-1, CBC, THYR, 77603-4 #### [facility] ([id number]) [address], [address] [place] [address] eGFR (CKD-EPI) NON-RACE DEPENDENT >90 Normal >59 [facility] Comment on above: Result Comment: Reported eGFR is based on the CKD-EPI 2021 equation that does not use a race coefficient. Performed By: #### C MP, 2532-0, 4-1, CBC, THYR, 88253-0 #### [facility] ([id number]) [address], [address] [place] [address] Glucose [Mass/Vol] 93 mg/dL Normal 65-99 [facility] Comment on above: Performed By: #### C MP, 2532-0, 3083-1, CBC, THYR, 21906-6 #### [facility] ([id number]) [address] [address] [place] [address] Potassium [Moles/Vol] 3.9 mmol/L Normal 3.5-5.0 [facility] Comment on above: Performed By: #### C EUSEBIA, 2532-0, 3083-, CBC, THYR, 55504-2 #### [facility] ([id number]) [address], [address] [place] [address] Protein [Mass/Vol] 6.8 g/dL Normal 6.0-8.0 [facility] Comment on above: Performed By: #### C EUSEBIA, 2532-0, 3083-1, CBC, THYR, 31770-8 #### [facility] ([id number]) [address], [address] [place] [address] Sodium [Moles/Vol] 134 mmol/L Normal 134-146 [facility] Comment on above: Performed By: #### C MP, 2532-0, 3083-1, CBC, THYR, 22933-2 #### [facility] ([id number]) [address] [address] [place] [address] Urea nitrogen [Mass/Vol] 11 mg/dL Normal 5-23 [facility] Comment on above: Performed By: #### C MP, 2532-0, 3083-1, CBC, THYR, 83806-6 #### [facility] ([id number]) [address], [address] [place] [address] DRUG SCREEN, URINEon 024 AMPHETAMINE/METHAMP Negative Normal NEG [facility] Comment on above: Result Comment: AMPH /METH screening cut off = 1000 ng/mL Performed By: #### U PCR, DSU #### [facility] ([id number]) [address], [address] [place] [address] BARBITURATES Negative Normal NEG [facility] Comment on above: Result Comment: Lupe iturates screening cut off value = 200 ng/mL Performed By: #### U PCR, DSU #### [facility] ([id number]) [address], [address] [place] [address] BENZODIAZEPINES Negative Normal NEG [facility] Comment on above: Result Comment: Jones odiazepines screening cut off value = 200 ng/mL Performed By: #### U PCR, DSU #### [facility] ([id number]) [address], [address] [place] [address] CANNABINOIDS Negative Normal NEG [facility] Comment on above: Result Comment: Debra abinoids/THC screening cut off value = 50 ng/mL Performed By: #### U PCR, DSU #### [facility] ([id number]) [address], [address] [place] [address] COCAINE METABOLITE Negative Normal NEG [facility] Comment on above: Result Comment: Coca ine screening cut off value = 300 ng/mL Performed By: #### U PCR, DSU #### [facility] ([id number]) [address], [address] [place] [address] ECSTASY Positive Abnormal NEG [facility] Comment on above: Result Comment: Inte rference from Buproprion or Labetalol may cause a positive result, confirmation available upon request. Ecstasy screening cut off value = 500 ng/mL This report is intended for use in clinical monitoring or management of patients. Performed By: #### U PCR, DSU #### [facility] ([id number]) [address], [address] [place] [address] METHADONE Negative Normal NEG [facility] Comment on above: Result Comment: Meth adone screening cut off value = 300 ng/mL. Performed By: #### U PCR, DSU #### [facility] ([id number]) [address], [address] [place] [address] OPIATES Negative Normal NEG [facility] Comment on above: Result Comment: Opia arsenio screening cut off value = 300 ng/mL NOTE: This test is used for the detection of codeine, hydrocodone (>1000 ng/mL), morphine and hydromorphone (>900 ng/mL) in urine. Performed By: #### U PCR, DSU #### [facility] ([id number]) [address] [facility] [place] [address] OXYCODONE Negative Normal NEG [facility] Comment on above: Result Comment: Oxyc odone screening cut off value = 300 ng/mL NOTE: This test is used for the detection of oxycodone and oxymorphone in urine. Performed By: #### U PCR, DSU #### [facility] ([id number]) [address], [address] [place] [address] PHENCYCLIDINE Negative Normal [facility] Comment on above: Result Comment: Phen cyclidine screening cut off value = 25 ng/mL Performed By: #### U PCR, DSU #### [facility] ([id number]) [address], [address] [place] [address] Glucose Glucometer (BldC) [M ass/Vol]on 09-27-2023 Glucose [Mass/Vol] 115 mg/dL High 65-99 [facility] LDH [Catalytic activity/Vol] on 09-27-2023 LDH 202 U/L Normal 100-235 [facility] Comment on above: Performed By: #### A CA, 5124-3, 35238-6, 66444-7, 49319-7 #### [facility] ([id number]) [address], [address] [place] [address] PROTEIN CREAT RATIOon 2023 RANDOM URINE PROTEIN 350 mg/L High <120 [facility] Comment on above: Performed By: #### U PCR, DSU #### [facility] ([id number]) [address], [address] [address] U/PRO/OPERATIONS SUPPORT ANALYST RATIO CALC 0.23 High <0.2 [facility] Comment on above: Result Comment: Neph rotic Syndrome is associated with ratios >3.5 Performed By: #### U PCR, DSU #### [facility] ([id number]) [address], [address] [address] URINE CREATININE,RDM 153.63 mg/dL Normal [facility] Comment on above: Performed By: #### U PCR, DSU #### [facility] ([id number]) [address], [address] [address] RESP PATHOGENS/FFDC-FuY-5ji 09-27-2023 Respiratory pathogens DNA and RNA panel [...] patient with possible respiratory tract infection. [facility] Comment on above: Performed By: #### A CA, 5124-3, 27266-6, 37710-4, 39039-9 #### [facility] ([id number]) [address] [facility] [place] [address] STREP B SCREEN CULTUREon S. agalactiae Org specific cx Ql (Vag+Rectum) CULTURE RESULTS POSITIVE FOR GROUP B STREPTOCOCCUS BY NUCLEIC ACID AMPLIFICATION : Group B streptococci remain universally susceptible to penicillin, ampicillin, and cefazolin. Resistance to clindamycin can occur. Please contact laboratory within 48 hr if clindamycin susceptibility testing is needed. Normal [facility] Comment on above: Performed By: #### A [place], 5124-3, 89544-6, 97140-0, 47786-4 #### [facility] ([id number]) [address], [address] [address] T. pallidum IgG+IgM IA Ql (S )on 09-27-2023 Syphilis Total <0.2 Normal 0.0-0.8 [facility] Comment on above: Result Comment: NON REACTIVE No serologic evidence of infection to Treponema pallidum (syphilis). Repeat testing may be considered in patients with suspected acute or primary syphilis in 2 to 4 weeks. Performed By: #### A [place], 5124-3, 69850-0, 23216-7, 76061-3 #### [facility] ([id number]) [address] [address] THYROID PROFILEon 09-27-2023 Free T4 [Mass/Vol] 0.59 ng/dL Low 0.61-1.60 [facility] Comment on above: Performed By: #### A [place], 5124-3, 65591-9, 91540-8, 22970-2 #### [facility] ([id number]) [address] [address] TSH 1.86 uIU/mL Normal 0.49-4.67 [facility] Comment on above: Performed By: #### A [place], 5124-3, 98780-4, 30872-0, 78386-7 #### [facility] ([id number]) [address] [address] URIC ACIDon 09-27-2023 Urate [Mass/Vol] 7.0 mg/dL Normal 2.6-7.2 [facility] Comment on above: Performed By: #### A [place], 5124-3, 65589-4, 31927-3, 72870-1 #### [facility] ([id number]) [address], [address] [place] [address] URINALYSISon 09-27-2023 Bilirubin Ql (U) Negative Normal NEG [facility] Comment on above: Performed By: #### U PCR, DSU #### [facility] ([id number]) [address], [address] [place] [address] BLOOD/HGB MODERATE Abnormal NEG [facility] Comment on above: Performed By: #### U PCR, DSU #### [facility] ([id number]) [address], [address] [place] [address] Color (U) YELLOW Normal YELLOW [facility] Comment on above: Performed By: #### U PCR, DSU #### [facility] ([id number]) [address], [address] [place] [address] Glucose Ql (U) Negative Normal NEG [facility] Comment on above: Performed By: #### U PCR, DSU #### [facility] ([id number]) [address], [address] [place] [address] Hyaline casts LM Ql (Urine sed) 3 /lpf High 0-2 [facility] Comment on above: Performed By: #### U PCR, DSU #### [facility] ([id number]) [address], [address] [place] [address] Ketones Ql (U) 20 mg/dL Abnormal NEG [facility] Comment on above: Performed By: #### U PCR, DSU #### [facility] ([id number]) [address], [address] [place] [address] Leukocyte esterase Test strip Ql (U) Negative Normal NEG [facility] Comment on above: Performed By: #### U PCR, DSU #### [facility] ([id number]) [address], [address] [place] [address] MUCOUS PRESENT Abnormal NONE [facility] Comment on above: Performed By: #### U PCR, DSU #### [facility] ([id number]) [address] [place] [address] Nitrite Ql (U) Negative Normal NEG [facility] Comment on above: Performed By: #### U PCR, DSU #### [facility] ([id number]) [address] [place] [address] pH (U) 5.5 [pH] Normal 5.0-8.5 [facility] Comment on above: Performed By: #### U PCR, DSU #### [facility] ([id number]) [address] [place] [address] Protein Ql (U) 30 mg/dL Abnormal NEG [facility] Comment on above: Performed By: #### U PCR, DSU #### [facility] ([id number]) [address] [place] [address] R.B.CELLS 53 /hpf High 0-5 [facility] Comment on above: Performed By: #### U PCR, DSU #### [facility] ([id number]) [address], [address] [place] [address] Specific gravity (U) [Rel density] 1.027 Normal 1.003-1.03 5 [facility] Comment on above: Performed By: #### U PCR, DSU #### [facility] ([id number]) [address], [address] [place] [address] SQUAMOUS EPITHELIUM 1 /hpf Normal 0-5 [facility] Comment on above: Performed By: #### U PCR, DSU #### [facility] ([id number]) [address], [address] [address] TURBIDITY CLEAR Normal CLEAR [facility] Comment on above: Performed By: #### U PCR, DSU #### [facility] ([id number]) [address], [address] [address] Urobilinogen (U) [Mass/Vol] mg/dL Normal <1.1 [facility] Comment on above: Performed By: #### U PCR, DSU #### [facility] ([id number]) [address], [address] [address] W.B.CELLS 3 /hpf Normal 0-5 [facility] Comment on above: Performed By: #### U PCR, DSU #### [facility] ([id number]) [address], [address] [address] URINE CULTUREon 09-27-2023 Bacteria identified Cx Nom (U) SPECIMEN NOTES URINE RECEIVED WITHOUT PRESERVATIVE CULTURE RESULTS NO GROWTH AT <1000 CFU/mL Normal [facility] Comment on above: Performed By: #### A CA, 5124-3, 56784-1, 14294-1, 43080-7 #### [facility] ([id number]) [address], [address] [address] No Panel Informationon 08-31 Unlisted lab test see scanned report [facility] Urinalysis macro (dipstick) panel (U)on 08-18-2023 Bilirubin, UA Negative Negative - 4(70) +++ mg/dL [facility] Blood, UA Negative Negative - 50 Izaiah/mcL [facility] Clarity, UA Clear [facility] Color, UA Yellow [facility] Glucose, UA Negative Negative - 2000(110) ++++ mg/dL [facility] Interpretation and review of laboratory results Abnormal [facility] Ketones, UA Negative Negative - 160(16) ++++ mg/dL [facility] Leukocytes, UA Trace Negative - 500+++ Susy/mcL [facility] Nitrite, UA Negative Negative - Positive [facility] pH, UA 7.0 5 - 9 [facility] Protein, UA Trace Negative - 2000(20) ++++ mg/dL [facility] Spec Grav, UA 1.025 1 - 1.03 [facility] Urobilinogen, UA 0.2 0.2 - 12 mg/dL [facility] Coxsackie B Abon 08-15-2023 Blanquita akhtar. B1 <1:10 Normal <1:10 [facility] Comment on above: Performed By: #### U RTPRT #### [facility] [address] [place] [address] Sales Representative Printing: MD Blanquita Barton. B2 <1:10 Normal <1:10 [facility] Comment on above: Performed By: #### U RTPRT #### [facility] [employer] [address] [place] [address] Sales Representative Printing: MD Blanquita Barton B3 <1:10 Normal <1:10 [facility] Comment on above: Performed By: #### U RTPRT #### [facility] [address] [place] [address] Sales Representative Printing: MD Blanquita Barton B4 1:40 Normal <1:10 [facility] Comment on above: Performed By: #### U RTPRT #### [facility] [address] [place] [address] Sales Representative Printing: MD Blanquita Barton B5 1:20 Normal <1:10 [facility] Comment on above: Performed By: #### U RTPRT #### [facility] [address] [place] [address] Sales Representative Printing: MD Blanquita Barton. B6 <1:10 Normal <1:10 [facility] Comment on above: Result Comment: (NOT E) INTERPRETIVE INFORMATION: Coxsackie B Virus Single positive antibody titers of greater than or equal to 1:80 may indicate past or current infection. Sero- conversion or an increase in titers between acute and convalescent sera of at least fourfold is considered strong evidence of current or recent infection. Performed By: [facility] [address] [place] [address] Rose Grader: Nikita Pantoja MD, PhD CLIA Number: [id number] Performed By: #### U RTPRT #### [address] [phone] Sales Representative Printing: Gonzalo Cain MD Protein S Ag, Freeon 024 Protein S Ag, Free 61 % Normal 55-123 [facility] Comment on above: Result Comment: [...] reference intervals for this test in the [facility] Test Directory ([employer]). Performed By: [facility] [address] [place] [address] Rose Grader: Nikita Pantoja MD, PhD CLIA Number: [id number] Performed By: #### U RTPRT #### [place] [id number] Sales Representative Printing: Gonzalo Cain MD Protein S, Antigenicon 08-14 Protein S, Antigenic 129 % High 63-126 [facility] Comment on above: Result Comment: (NOT E) INTERPRETIVE INFORMATION: Protein S, Total Antigen Patients on warfarin may have decreased protein S values. Patients should be off warfarin therapy for two weeks for accurate measurement of protein S. Access complete set of age- and/or gender-specific reference intervals for this test in the [facility] Test Directory ([employer]). Performed By: [facility] [address] [place] [address] Rose Grader: Nikita Pantoja MD, PhD CLIA Number: [id number] Performed By: #### U RTPRT #### [facility] [place] [address] Sales Representative Printing: Gonzalo Cain MD Antithrombin III Valentina 08-12 Antithrombin III Act 114 % Normal 83-122 [facility] Comment on above: Result Comment: Patients receiving Hirudin may have a falsely decreased Antitrombin III Activity. Performed By: #### U RTPRT #### [facility] [address] [place] [address] Sales Representative Printing: Gonzalo Cain MD Lupus Anticoagulanton 2023 Dilute Madhuri Viper Negative Normal NLUP [facility] Comment on above: Performed By: #### L UPPRO #### [facility] [employer] [address] [place] [address] Sales Representative Printing: Gonzalo Cain MD Protein C Activityon 024 Protein C Activity 86 % Normal >80 [facility] Comment on above: Result Comment: Patients on [...] VIII. Performed By: #### U RTPRT #### [address] [address] Sales Representative Printing: Gonzalo Cain MD Protein S Activityon 024 Protein S Activity 54 % Low 59-130 [facility] Comment on above: Result Comment: Patients on [...] VIII. Performed By: #### U RTPRT #### [facility] [address] [place], [place] [phone] Sales Representative Printing: Gonzalo Cain MD Factor V Mutationon 08-11-19 24 F 5 SPECIMEN Whole Blood Normal [facility] Comment on above: Performed By: #### A PARVP, AF5MUT, APRTSF, ACOXAB, ACOXA9, APTMUT, AMTHFR, APROTS #### [facility] [address] [place] [address] Sales Representative Printing: Arben Carrington MD #### AT3A, PROSAC, HOCYS, ACARDA, FT4, PROCAC, TSH #### [employer] [address] [place] [address] [phone] Sales Representative Printing: Gonzalo Cain MD FACTOR 5 MUTATION Negative Normal [facility] Comment on above: Result Comment: (NOT E) Indication for testing: Assess genetic risk for thrombosis. NEGATIVE: The factor V Leiden variant, c.1601G>A; p.Qgd391Dcg, was not detected. This does not exclude [...] function in the F5 gene variant c.1601G>A (p.Niu864Bag). Legacy nomenclature: [id number] (1691G>A) CLINICAL SENSITIVITY: 20-50 percent of individuals with an isolated VTE have the FVL variant. METHODOLOGY: Polymerase chain reaction and fluorescence monitoring. ANALYTICAL SENSITIVITY AND SPECIFICITY: 99 percent. LIMITATIONS: Diagnostic errors can occur due to rare sequence variations. F5 gene mutations, other than p.Ahm996Lrt, will not be detected. This test was developed and its performance characteristics determined by [facility]. It has not been cleared or approved by the US Food and Drug Administration. This test was performed in a CLIA certified laboratory and is intended for clinical purposes. Counseling and informed consent are recommended for genetic testing. Consent forms are available online. Performed By: [facility] [address] [place] [address] Rose Grader: Nikita Pantoja MD, PhD CLIA Number: [id number] Performed By: #### A PARVP, AF5MUT, APRTSF, ACOXAB, ACOXA9, APTMUT, AMTHFR, APROTS #### [facility] [address] [place] [address] Sales Representative Printing: Arben Carrington MD #### AT3A, PROSAC, HOCYS, ACARDA, FT4, PROCAC, TSH #### [place] [address] Sales Representative Printing: Gonzalo Cain MD PT Mutation [id number] 08-11-19 24 PT [id number] VARIANT Negative Normal [facility] Comment on above: Result Comment: (NOT E) Indication for testing: Assess genetic risk for thrombosis. NEGATIVE: The Factor II, prothrombin [id number] mutation, was not detected. Other causes of [...] M.D., Ph.D. BACKGROUND INFORMATION: Prothrombin (F2) c.*97G>A (I58647Q) Pathogenic Variant CHARACTERISTICS: The Factor II, c.*97G>A (Z84569C) pathogenic variant is a common genetic risk [...] CAUSE: Homozygosity or heterozygosity for F2 c.*97G>A (L64999E). PATHOGENIC VARIANT TESTED: F2 c.*97G>A (Y18165Q). CLINICAL SENSITIVITY FOR VENOUS THROMBOSIS: Approximately 10 percent. METHODOLOGY: Polymerase chain reaction and fluorescence monitoring. ANALYTICAL SENSITIVITY AND SPECIFICITY: 99 percent. LIMITATIONS: Diagnostic errors can occur due to rare sequence variations. F2 gene variants, other than c.*97G>A (G84454H), will not be detected. This test was developed and its performance characteristics determined by [facility]. It has not been cleared or approved by the [place] Food and Drug Administration. This test was performed in a CLIA certified laboratory and is intended for clinical purposes. Counseling and informed consent are recommended for genetic testing. Consent forms are available online. Performed By: [facility] [address] [place] [address] Rose Grader: Nikita Pantoja MD, PhD CLIA Number: [id number] Performed By: #### U RTPRT #### [address] [address] Sales Representative Printing: Gonzalo Cain MD PT PCR SPECIMEN Whole Blood Normal [facility] Comment on above: Performed By: #### U RTPRT #### [address] [address] Sales Representative Printing: Gonzalo Cain MD Coxsackie A9 Titeron 024 Coxsackie A9 Titer <1:8 Normal <1:8 [facility] Comment on above: Result Comment: (NOT E) INTERPRETIVE INFORMATION: Coxsackie A Serotype 9 Titer Single positive antibody titers of greater than 1:32 may indicate past or current infection. Seroconversion or an increase in titers between acute and convalescent sera of at least fourfold is considered strong evidence of current or recent infection. Performed By: [facility] [address] [place] [address] Rose Grader: Nikita Pantoja MD, PhD CLIA Number: [id number] Performed By: #### A PARVP, AF5MUT, APRTSF, ACOXAB, ACOXA9, APTMUT, AMTHFR, APROTS #### [address] [address] Sales Representative Printing: Arben Carrington MD #### AT3A, PROSAC, HOCYS, ACARDA, FT4, PROCAC, TSH #### [address] [phone] Sales Representative Printing: Gonzalo Cain MD MTHFR Gene Mutationon 2023 MTHFR 1286 A>C Mut Negative Normal [facility] Comment on above: Performed By: #### A PARVP, AF5MUT, APRTSF, ACOXAB, ACOXA9, APTMUT, AMTHFR, APROTS #### [facility] [address] [place] [address] Sales Representative Printing: Arben Carrington MD #### AT3A, PROSAC, HOCYS, ACARDA, FT4, PROCAC, TSH #### [facility] [address] [place] [address] Sales Representative Printing: Gonzalo Cain MD MTHFR 655C>T Mut Homozygous Normal [facility] Comment on above: Performed By: #### A PARVP, AF5MUT, APRTSF, ACOXAB, ACOXA9, APTMUT, AMTHFR, APROTS #### [facility] [address] [place] [address] Sales Representative Printing: Arben Carrington MD #### AT3A, PROSAC, HOCYS, ACARDA, FT4, PROCAC, TSH #### [address] [address] Sales Representative Printing: Gonzalo Cain MD MTHFR Interpretation See Note Normal [facility] Comment on above: Result Comment: (NOT E) Indication for testing: Determine genetic contribution to hyperhomocysteinemia. Homozygous MTHFR c.665C>T: Two copies of the MTHFR gene variant c.665C>T (previously designated C677T) were detected; the c.1286A>C (previously designated J9952E) variant was not detected. Homozygosity for the [...] has an effect on cardiovascular disease. The [employer] Practice Guidelines indicate [...] a contributing factor to hyperhomocysteinemia. Variants Tested: c.665C>T(p.Qfi444Rbu) and c.1286A>C(p.Khq789Afj). (legacy names C677T and J5107F, respectively). Clinical Sensitivity: Undefined; hyperhomocysteinemia is caused [...] developed and its performance characteristics determined by [facility]. It has not been cleared or approved by the US Food and Drug Administration. This test was performed in a CLIA certified laboratory and is intended for clinical purposes. Counseling and informed consent are recommended for genetic testing. Consent forms are available online. Performed By: [facility] [address] [place] [address] Rose Grader: Nikita Pantoja MD, PhD CLIA Number: [id number] Performed By: #### A PARVP, AF5MUT, APRTSF, ACOXAB, ACOXA9, APTMUT, AMTHFR, APROTS #### [facility] [address] [place] [address] Sales Representative Printing: Arben Carrington MD #### AT3A, PROSAC, HOCYS, ACARDA, FT4, PROCAC, TSH #### [address] [address] Sales Representative Printing: Gonzalo Cain MD MTHFR SPECIMEN Whole Blood Normal [facility] Comment on above: Performed By: #### A PARVP, AF5MUT, APRTSF, ACOXAB, ACOXA9, APTMUT, AMTHFR, APROTS #### [facility] [address] [place] [address] Sales Representative Printing: Arben Carrington MD #### AT3A, PROSAC, HOCYS, ACARDA, FT4, PROCAC, TSH #### [employer] [address] [place] [address] Sales Representative Printing: Gonzalo Cain MD Parvovirus B19 Panelon 08-10 Parvovirus IgG B19 0.18 IV Normal <=0.90 [facility] Comment on above: Result Comment: [...] APTMUT, AMTHFR, APROTS #### [facility] [address] [place] [address] Sales Representative Printing: Arben Carrington MD #### AT3A, PROSAC, HOCYS, ACARDA, FT4, PROCAC, TSH #### [employer] [facility] [place] [address] Sales Representative Printing: Gonzalo Cain MD Parvovirus IgM B19 0.24 IV Normal <=0.90 [facility] Comment on above: Result Comment: (NOT E) INTERPRETIVE INFORMATION: Parvovirus B19 Antibody, IgM EFFECTIVE 05/21/2023 REFERENCE INTERVAL CHANGE Due to reagent kit associate embalmer/funeral director recall, an alternate kit has been validated and implemented by [facility]. The following Reference Interval applies to [...] levels of specific IgM antibodies. Performed By: [facility] [address] [place] [address] Rose Grader: Nikita Pantoja MD, PhD CLIA Number: [id number] Performed By: #### A PARVP, AF5MUT, APRTSF, ACOXAB, ACOXA9, APTMUT, AMTHFR, APROTS #### [facility] [address] [place] [address] Sales Representative Printing: Arben Carrington MD #### AT3A, PROSAC, HOCYS, ACARDA, FT4, PROCAC, TSH #### [place] [phone] Sales Representative Printing: Gonzalo Cain MD Cardiolipin Ab Burak,A,Florin 08-08 Anticardiolipin IgG 0.7 GPL Normal 0.0-10.0 [facility] Comment on above: Result Comment: Reference Range: <10.0 Negative 10.0-40.0 Equivocal >40.0 Positive Performed By: #### A PARVP, AF5MUT, APRTSF, ACOXAB, ACOXA9, APTMUT, AMTHFR, APROTS #### [facility] [address] [place] [address] [phone] Sales Representative Printing: Arben Carrington MD #### AT3A, PROSAC, HOCYS, ACARDA, FT4, PROCAC, TSH #### [place] [phone] Sales Representative Printing: Gonzalo Cain MD Anticardiolipin IgA 1.9 APL Normal 0.0-14.0 [facility] Comment on above: Result Comment: Reference Range: <14.0 Negative 14.0-20.0 Equivocal >20.0 Positive When results are Equivocal, it is recommended to retest after 4-6 weeks. Performed By: #### A PARVP, AF5MUT, APRTSF, ACOXAB, ACOXA9, APTMUT, AMTHFR, APROTS #### [place] [phone] Sales Representative Printing: Arben Carrington MD #### AT3A, PROSAC, HOCYS, ACARDA, FT4, PROCAC, TSH #### [place] [phone] Sales Representative Printing: Gonzalo Cain MD Anticardiolipin IgM 1.0 MPL Normal 0.0-10.0 [facility] Comment on above: Result Comment: Reference Range: <10.0 Negative 10.0-40.0 Equivocal >40.0 Positive Performed By: #### A PARVP, AF5MUT, APRTSF, ACOXAB, ACOXA9, APTMUT, AMTHFR, APROTS #### [address] [address] Sales Representative Printing: Arben Carrington MD #### AT3A, PROSAC, HOCYS, ACARDA, FT4, PROCAC, TSH #### [place] [phone] Sales Representative Printing: Gonzalo Cain MD Homocysteineon 08-06-2023 Homocysteine 5.4 umol/L Normal <15.0 [facility] Comment on above: Performed By: #### A PARVP, AF5MUT, APRTSF, ACOXAB, ACOXA9, APTMUT, AMTHFR, APROTS #### [facility] [address] [place] [address] Sales Representative Printing: Arben Carrington MD #### AT3A, PROSAC, HOCYS, ACARDA, FT4, PROCAC, TSH #### [address] [phone] Sales Representative Printing: Gonzalo Cain MD Lupus Anticoagulanton 2023 aPTT Coag (Bld) [Time] 25.4 s Normal 23.0-36.5 [facility] Comment on above: Result Comment: IV Heparin Therapy Range: 66.0-92.0 sec Performed By: #### L UPPRO #### [address] [address] Sales Representative Printing: Gonzalo Cain MD INR Coag (PPP) [Relative time] 1.0 {INR} Normal [facility] Comment on above: Result Comment: Therapeutic Range: Moderate Anticoagulant Intensity: INR = 2.0-3.0 High Anticoagulant Intensity: INR = 2.5-3.5 Performed By: #### L UPPRO #### [address] [address] Sales Representative Printing: Gonzalo Cain MD PT Coag (PPP) [Time] 13.0 s Normal 11.7-14.9 [facility] Comment on above: Performed By: #### L UPPRO #### [address] [address] Sales Representative Printing: Gonzalo Cain MD Protein,Tot,[place] Uron 2023 Creatinine [Mass/Vol] 221.0 mg/dL High 28.0-217.0 [facility] Comment on above: Performed By: #### U RTPRT #### [place] [address] Sales Representative Printing: Gonzalo Cain MD Tot Prot. Conc. 15 mg/dL Normal [facility] Comment on above: Result Comment: No n ormal range established. Performed By: #### U RTPRT #### [place] [address] Sales Representative Printing: Gonzalo Cain MD TP/Cre Ratio 0.07 Normal [facility] Comment on above: Performed By: #### U RTPRT #### [place] [address] Sales Representative Printing: Gonzalo Cain MD Thyroid Stim. Horm.on 2023 Thyroid Stim. Horm. 1.89 uIU/mL Normal 0.30-5.00 [facility] Comment on above: Performed By: #### A PARVP, AF5MUT, APRTSF, ACOXAB, ACOXA9, APTMUT, AMTHFR, APROTS #### [facility] [address] [place] [address] Sales Representative Printing: Arben Carrington MD #### AT3A, PROSAC, HOCYS, ACARDA, FT4, PROCAC, TSH #### [place] [address] Sales Representative Printing: Gonzalo Cain MD Thyroxine, Freeon 08-06-2023 Thyroxine, Free 1.1 ng/dL Normal 0.9-1.7 [facility] Comment on above: Performed By: #### A PARVP, AF5MUT, APRTSF, ACOXAB, ACOXA9, APTMUT, AMTHFR, APROTS #### [facility] [address] [place] [address] Sales Representative Printing: Arben Carrington MD #### AT3A, PROSAC, HOCYS, ACARDA, FT4, PROCAC, TSH #### [facility] [address] [place] [address] Sales Representative Printing: Gonzalo Cain MD ANTI CARDIOLIPIN AB IGG IGA IGMon 08-04-2023 NATHAN IgA <2.0 Normal 0-19.9 [facility] Comment on above: Performed By: #### A CA, 5124-3, 44022-0, 70369-1, 98009-2 #### [facility] ([id number]) [address], [address] [address] NATHAN IgG <1.6 Normal 0-19.9 [facility] Comment on above: Performed By: #### A CA, 5124-3, 99086-1, 55794-3, 92710-5 #### [facility] ([id number]) [address], [address] [place] [address] NATHAN IgM <1.5 Normal 0-19.9 [facility] Comment on above: Performed By: #### A CA, 5124-3, 80050-3, 64880-8, 90478-3 #### [facility] ([id number]) [address], [address] [address] Anti cardiolipin AB IgG IgA IgMon 08-04-2023 Cardiolipin IgA IA Qn (S) [facility] Cardiolipin IgG IA Qn (S) [facility] Cardiolipin IgM IA Qn (S) [facility] CMV IgG IA Qnon 08-04-2023 Interpretation and review of laboratory results Abnormal [facility] CYTOMEGALOVIRUS IgG >8.0 High <0.9 [facility] Comment on above: Result Comment: Interpretation-------- <0.9 Negative 0.9 - 1.0 Equivocal >1.0 Positive Performed By: #### Penelope TERAN, 5124-3, 74250-3, 31148-1, 98130-6 #### [facility] ([id number]) [address] [place] [address], [address] [place] [address] CMV IgMon 08-04-2023 CMV IgM IA [facility] Comment on above: Interpretation-------- <0.9 Negative 0.9 - 1.0 Equivocal >1.0 Positive NOTE The following results were obtained with the [employer] [address] [employer] IgM test. Results obtained from other [employer] assay methods may not be used interchangeably. CMV IgM IA Qlon 08-04-2023 [facility] CYTOMEGALOVIRUS IgM <0.2 Normal <0.9 [facility] Comment on above: Result Comment: Interpretation-------- <0.9 Negative 0.9 - 1.0 Equivocal >1.0 Positive NOTE The following results were obtained with the [employer] [address] [employer] IgM test. Results obtained from other [employer] assay methods may not be used interchangeably. Performed By: #### Penelope PARUL, 5124-3, 63571-5, 79866-1, 55044-3 #### [facility] ([id number]) [address] [place] [address], [address] [place] [address] Cytomegalovirus antibody, Ig Blaze 08-04-2023 CMV IgG IA Qn High [facility] Comment on above: Interpretation-------- <0.9 Negative 0.9 - 1.0 Equivocal >1.0 Positive Syphilis Total(Unknown Syphi lis Status)on 08-04-2023 T. pallidum IgG+IgM IA Ql (S) [facility] Comment on above: NON REACTIVE No serologic evidence of infection to Treponema pallidum (syphilis). Repeat testing may be considered in patients with suspected acute or primary syphilis in 2 to 4 weeks. T. gondii IgM IA Qlon 2023 [facility] TOXOPLASMA IGM <0.2 Normal <0.9 [facility] Comment on above: Result Comment: Interpretation-------- <0.9 Negative 0.9 - 1.0 Equivocal >1.0 Positive NOTE The following results were obtained with the [employer] ToRC IgM test. Results obtained from other [employer]'s assay methods may not be used interchangeably. Performed By: #### A [place], 5124-3, 69520-0, 72548-2, 27470-0 #### [facility] ([id number]) [address] [place] [address], [address] [address] T. pallidum IgG+IgM IA Ql (S )on 08-04-2023 [facility] Syphilis Total <0.2 Normal 0.0-0.8 [facility] Comment on above: Result Comment: NON REACTIVE No serologic evidence of infection to Treponema pallidum (syphilis). Repeat testing may be considered in patients with suspected acute or primary syphilis in 2 to 4 weeks. Performed By: #### A [place], 5124-3, 36517-8, 10109-2, 50267-5 #### [facility] ([id number]) [address] [place] [address], [address] [place] [address] Toxoplasma IgMon 08-04-2023 T. gondii IgM IA Ql A1 NINF - 0 .9 A1 [facility] Comment on above: Interpretation-------- <0.9 Negative 0.9 - 1.0 Equivocal >1.0 Positive NOTE The following results were obtained with the [employer] 2200 ToRC IgM test. Results obtained from other [employer] assay methods may not be used interchangeably. dRVVT/dRVVT.excess phospholi pid Coag (PPP) [Ratio]on 08-04-2023 [facility] Negative Normal [facility] Comment on above: Performed By: #### 5 0410-0 #### [facility] ([id number]) [address] [place] [address], [address] [place] [address] dRVVT excess phospholipid Coag Ql (PPP) Negative [facility] MRI KNEE WO CONTRAST LEFTon 04-18-2017 MRI KNEE WO [facility]AST LEFT [facility] [place] [id number] Patient Name: SISI CELIS : 1995Sex: FAge: Race: WhiteMRN: [id number]. Location: LPOPPatient Status: DVisit #: [id number] Date: 04/18/2017 8:15:00 AMCompleted Date: 04/18/2017 08:53 AMRequesting Provider: MORIAH BOND Attending Provider: Report Copy To: OLMAN VELA Signs & Symptoms: Internal derangement knee, leftHistory: Order in RIS, No FB per mother Auth # [id number] Valid 04/06/17-05/06/17. Auth scanned into RIS.Comments: Exam: MRI KNEE WO CONTRAST LEFTAccession #: [id number] MRI KNEE WO CONTRAST LEFT 04/18/2017 8:53 [...] 16. Electronically signed by:Guzman Saba. Transcribed by: [email or web address], User Resident: Electronically Signed by: GUZMAN SABA @ 04/20/2017 02:46 PM Normal [facility] Vital Signs Date Time Vital Sign Value Performing Clinician Facility 01-19-2025 09:19-0400 Body height 170.2 cm Joosy Work Phone: [facility] 01-19-2025 09:19-0400 Body mass index (BMI) [Ratio] 46.52 kg/m2 Joosy Work Phone: [facility] 01-19-2025 09:19-0400 Body weight 134.72 kg Contreras Emili DO Work Phone: [facility] 01-19-2025 09:19-0400 Diastolic blood pressure 74 mm[Hg] Contreras Emili DO Work Phone: [facility] 01-19-2025 09:19-0400 Systolic blood pressure 118 mm[Hg] Contreras Emili DO Work Phone: [facility] 01-03-2025 10:54-0400 Body height 170.18 cm Veronica Singh DIRECTOR LEARNING SERVICES Work Phone: [facility] 01-03-2025 10:54-0400 Body mass index (BMI) [Ratio] 46.2 kg/m2 Veronica Singh DIRECTOR LEARNING SERVICES Work Phone: [facility] 01-03-2025 10:54-0400 Body temperature 96.3 [degF] Veronica Singh DIRECTOR LEARNING SERVICES Work Phone: [facility] 01-03-2025 10:54-0400 Body weight 133.8 kg Veronica Singh DIRECTOR LEARNING SERVICES Work Phone: [facility] 01-03-2025 10:54-0400 Diastolic blood pressure 82 mm[Hg] Veronica Singh DIRECTOR LEARNING SERVICES Work Phone: [facility] 01-03-2025 10:54-0400 Heart rate 95 /min Veronica Singh DIRECTOR LEARNING SERVICES Work Phone: [facility] 01-03-2025 10:54-0400 SaO2% (BldA) [Mass fraction] 98 % Veronica Singh APRN Work Phone: [facility] 01-03-2025 10:54-0400 Systolic blood pressure 122 mm[Hg] Veronica Singh APRN Work Phone: [facility] 12-21-2024 11:28-0400 Body height 170.18 cm [facility] 12-21-2024 11:28-0400 Body mass index (BMI) [Ratio] 45.7 kg/m2 [facility] 12-21-2024 11:28-0400 Body temperature 98.7 [degF] [facility] 12-21-2024 11:28-0400 Body weight 132.44 kg [facility] 12-21-2024 11:28-0400 Diastolic blood pressure 70 mm[Hg] [facility] 12-21-2024 11:28-0400 Heart rate 78 /min [facility] 12-21-2024 11:28-0400 SaO2% (BldA) [Mass fraction] 98 % [facility] 12-21-2024 11:28-0400 Systolic blood pressure 118 mm[Hg] [facility] 11-04-2024 08:58-0400 Body height 170.18 cm [facility] 11-04-2024 08:58-0400 Body mass index (BMI) [Ratio] 45.8 kg/m2 [facility] 11-04-2024 08:58-0400 Body temperature 97.5 [degF] [facility] 11-04-2024 08:58-0400 Body weight 132.9 kg [facility] 11-04-2024 08:58-0400 Diastolic blood pressure 84 mm[Hg] [facility] 11-04-2024 08:58-0400 Heart rate 84 /min [facility] 11-04-2024 08:58-0400 SaO2% (BldA) [Mass fraction] 98 % [facility] 11-04-2024 08:58-0400 Systolic blood pressure 126 mm[Hg] [facility] 10-03-2024 09:03-0400 Body height 170.18 cm [facility] 10-03-2024 09:03-0400 Body mass index (BMI) [Ratio] 46.2 kg/m2 [facility] 10-03-2024 09:03-0400 Body temperature 96.2 [degF] [facility] 10-03-2024 09:03-0400 Body weight 133.97 kg [facility] 10-03-2024 09:03-0400 Diastolic blood pressure 84 mm[Hg] [facility] 10-03-2024 09:03-0400 Heart rate 100 /min [facility] 10-03-2024 09:03-0400 SaO2% (BldA) [Mass fraction] 98 % [facility] 10-03-2024 09:03-0400 Systolic blood pressure 120 mm[Hg] [facility] 06-29-2024 15:10-0500 Body mass index (BMI) [Ratio] 46.27 kg/m2 Olga PAUL Work Phone: [facility] 06-29-2024 15:10-0500 Body weight 133.99 kg Olga PAUL Work Phone: [facility] 06-29-2024 15:10-0500 Diastolic blood pressure 70 mm[Hg] Olga PAUL Work Phone: [facility] 06-29-2024 15:10-0500 Systolic blood pressure 120 mm[Hg] Olga PAUL Work Phone: [facility] 05-30-2024 13:10-0500 Body mass index (BMI) [Ratio] 46.2 kg/m2 Contreras Emili DO Work Phone: [facility] 05-30-2024 13:10-0500 Body weight 133.81 kg Contreras Emili DO Work Phone: [facility] 05-30-2024 13:10-0500 Diastolic blood pressure 76 mm[Hg] Contreras Emili DO Work Phone: [facility] 05-30-2024 13:10-0500 Systolic blood pressure 118 mm[Hg] Contreras Emili DO Work Phone: [facility] 03-08-2024 13:06-0400 Body mass index (BMI) [Ratio] 44.5 kg/m2 Contreras Emili DO Work Phone: [facility] 03-08-2024 13:06-0400 Body weight 128.88 kg Contreras Emili DO Work Phone: [facility] 03-08-2024 13:06-0400 Diastolic blood pressure 80 mm[Hg] Contreras Emili DO Work Phone: [facility] 03-08-2024 13:06-0400 Systolic blood pressure 130 mm[Hg] Contreras Emili DO Work Phone: [facility] 10-10-2023 02:11-0400 SaO2% (BldA) [Mass fraction] 89 % JAK ANAYA [facility] Comment on above: Performed By: #### UPCR, DSU #### [facility] ([id number]) [address], [address] [place] [address] 08-18-2023 10:27-0500 Body mass index (BMI) [Ratio] 44.19 kg/m2 Contreras Emili DO Work Phone: [facility] 08-18-2023 10:27-0500 Body weight 127.97 kg Contreras Emili DO Work Phone: [facility] 08-18-2023 10:27-0500 Diastolic blood pressure 80 mm[Hg] Contreras Emili DO Work Phone: [facility] 08-18-2023 10:27-0500 Systolic blood pressure 122 mm[Hg] Contreras Emili DO Work Phone: [facility] 08-04-2023 10:46-0500 Diastolic blood pressure 85 mm[Hg] Yanelis Garrido MD Work Phone: [facility] 08-04-2023 10:46-0500 Heart rate 85 /min Yanelis Garrido MD Work Phone: [facility] 08-04-2023 10:46-0500 Systolic blood pressure 138 mm[Hg] Yanelis Garrido MD Work Phone: [facility] 08-04-2023 08:25-0500 Body height 170.2 cm [facility]ido [facility] 08-04-2023 08:25-0500 Body mass index (BMI) [Ratio] 43.98 kg/m2 Yanelis Garrido MD [facility] 08-04-2023 08:25-0500 Body weight 127.37 kg Yanelis Garrido MD Work Phone: [facility] Encounters Encounter Date Encounter Type Care Provider Facility Start: 01-19-2025 End: 01-19-2025 Bamboo flowsheet Contreras Emili DO Work Phone: [facility] Start: 01-19-2025 End: 01-19-2025 Bamboo flowsheet Contreras Emili DO Work Phone: [facility] Start: 01-19-2025 End: 01-19-2025 Office outpatient visit 15 minutes Contreras Emili DO Work Phone: [facility] Comment on above: Pelvic pain in femal e; Hx of ovarian cyst; PCOS (polycystic ovarian syndrome); Insulin resistance Start: 01-19-2025 End: 01-19-2025 ambulatory CONTRERAS EMILI Not Available Start: 01-14-2025 End: 01-14-2025 ambulatory Veronica Singh APRN Work Phone: [facility] Work Phone: Start: 01-14-2025 End: 01-14-2025 Departed Referred Migue Talavera MD -[facility] Start: 01-14-2025 Non-patient / Non-visit Migue reese MD -[facility] Work Phone: Start: 01-03-2025 End: 01-03-2025 Patient encounter procedure Veronica Singh APRN [facility] Work Phone: Start: 12-21-2024 End: 12-21-2024 ambulatory [facility] Work Phone: Start: 12-21-2024 End: 12-21-2024 Patient encounter procedure [facility] Work Phone: Start: 11-04-2024 End: 11-04-2024 ambulatory [facility] Work Phone: Start: 11-04-2024 End: 11-04-2024 Patient encounter procedure [facility] Phys[facility] Work Phone: Start: 10-03-2024 End: 10-03-2024 ambulatory [facility] Work Phone: Start: 10-03-2024 End: 10-03-2024 Patient encounter procedure [facility] Physician [facility] Work Phone: Start: 08-05-2024 End: [...] BMI PSYL Start: 08-02-2024 ambulatory DO DINORAH [facility] Start: 06-29-2024 End: 06-29-2024 Office outpatient visit [...] Start: 05-30-2024 End: 05-30-2024 Bamboo flowsheet Contreras Mock DO Work Phone: [facility] Start: 05-30-2024 End: 05-30-2024 Bamboo flowsheet Contreras Emili DO Work Phone: [facility] Start: 05-30-2024 End: 05-30-2024 Office outpatient visit 15 minutes Contreras Emili DO Work Phone: [facility] Comment on above: Encounter for weight management; Anxiety Start: 05-30-2024 End: 05-30-2024 ambulatory CONTRERAS EMILI Not Available Start: 05-03-2024 End: 05-03-2024 Bamboo flowsheet Contreras Emili DO Work Phone: [facility] Start: 05-03-2024 End: 05-10-2024 Bamboo flowsheet Contreras Emili DO Work Phone: [facility] Start: 05-03-2024 End: 05-10-2024 Clinisync Result Encounter Contreras Emili DO Work Phone: [facility] External Department Unsolicited Start: 05-03-2024 End: 05-03-2024 Patient encounter procedure Contreras Emili DO Work Phone: [facility] Work Phone: Start: 05-03-2024 End: 05-03-2024 Periodic preventive med est patient 18-39 yrs Contreras Emili DO Work Phone: [facility] Comment on above: Well woman exam with routine gynecological exam; depression (CMS/HCC); Follow-up exam; Post depression (CMS/HCC); Insulin resistance Start: 05-03-2024 End: 05-03-2024 ambulatory CONTRERAS EMILI Not Available Start: 04-27-2024 End: 04-27-2024 ambulatory DO DINORAH P HOUSE Facility:[facility] Start: 04-05-2024 End: 04-05-2024 ambulatory DO DINORAH P HOUSE Facility:[facility] Start: 03-08-2024 End: 03-08-2024 Bamboo flowsheet Contreras Emili DO Work Phone: [facility] Start: 03-08-2024 End: 03-08-2024 Bamboo flowsheet Contreras Emili DO Work Phone: [facility] Start: 03-08-2024 End: 03-08-2024 Office outpatient visit 15 minutes Contreras Emili DO Work Phone: [facility] Comment on above: Post depressi on (CMS/HCC) Start: 03-08-2024 End: 03-08-2024 ambulatory CONTRERAS EMILI Not Available Start: 03-08-2024 ambulatory DINORAH P HOUSE Facilit y:[facility] Start: 03-07-2024 End: 03-07-2024 ambulatory DINORAH P HOUSE Facility:[facility] Start: 02-04-2024 End: 02-04-2024 ambulatory DO DINORAH P HOUSE Facility:[facility] Start: 01-05-2024 End: 01-05-2024 ambulatory DO DINORAH P HOUSE Facility:[facility] Start: 12-21-2023 End: 12-21-2023 Encounter Alfonzo Guerra MD Work Phone: [address] N[facility] Start: 12-20-2023 End: 12-20-2023 Encounter Alfonzo Guerra MD Work Phone: [address] [facility] Start: 12-18-2023 End: 12-18-2023 Encounter Alfonzo Guerra MD Work Phone: [address] [facility] Start: 12-17-2023 End: 12-17-2023 Encounter Alfonzo Guerra MD Work Phone: [address] [facility] Start: 12-13-2023 End: 12-13-2023 Encounter Alfonzo Guerra MD Work Phone: [address] [facility] Start: 12-11-2023 End: 12-11-2023 Encounter Alfonzo Guerra MD Work Phone: [address] [facility] Start: 12-10-2023 End: 12-10-2023 Encounter Alfonzo Guerra MD Work Phone: [address] [facility] Start: 12-08-2023 End: 12-08-2023 Encounter Alfonzo Guerra MD Work Phone: [address] [facility] Start: 12-07-2023 End: 12-07-2023 Encounter Alfonzo Guerra MD Work Phone: [address] [facility] Start: 12-04-2023 End: 12-04-2023 Encounter Alfonzo Guerra MD Work Phone: [address] [facility] Start: 12-03-2023 End: 12-03-2023 Encounter Alfonzo Guerra MD Work Phone: [address] [facility] Start: 12-01-2023 End: 12-01-2023 Encounter Alfonzo Guerra MD Work Phone: [address] [facility] Start: 11-27-2023 End: 11-27-2023 Encounter Alfonzo Guerra MD Work Phone: [address] [facility] Start: 11-26-2023 End: 11-26-2023 Encounter Alfonzo Guerra MD Work Phone: [address] [facility] Start: 11-24-2023 End: 11-24-2023 Encounter Alfonzo Guerra MD Work Phone: [address] [facility] Start: 11-20-2023 End: 11-20-2023 Encounter Alfonzo Guerra MD Work Phone: [address] [facility] Start: 11-19-2023 End: 11-19-2023 Encounter Alfonzo Guerra MD Work Phone: [address] [facility] Start: 11-17-2023 End: 11-17-2023 Encounter Alfonzo Guerra MD Work Phone: [address] [facility] Start: 11-13-2023 End: 11-13-2023 Encounter Alfonzo Guerra MD Work Phone: [address] [facility] Start: 11-12-2023 End: 11-12-2023 Encounter Alfonzo Guerra MD [address] N[facility] Start: 11-10-2023 End: 11-10-2023 Encounter Alfonzo Guerra MD Work Phone: [address] [facility] Start: 11-09-2023 End: 11-09-2023 Encounter Alfonzo Guerra MD Work Phone: [address] [facility] Start: 11-07-2023 End: 11-07-2023 Encounter Alfonzo Guerra MD Work Phone: [address] [facility] Start: 11-06-2023 End: 11-06-2023 Encounter Alfonzo Guerra MD Work Phone: [address] [facility] Start: 11-05-2023 End: 11-05-2023 Encounter Alfonzo Guerra MD Work Phone: [address] [facility] Start: 11-04-2023 End: 11-04-2023 Encounter Alfonzo Guerra MD Work Phone: [address] [facility] Start: 11-03-2023 End: 11-03-2023 Encounter Alfonzo Guerra MD Work Phone: [address] [facility] Start: 11-01-2023 End: 11-01-2023 Encounter Alfonzo Guerra MD Work Phone: [facility] Start: 10-31-2023 End: 10-31-2023 Encounter Alfonzo Guerra MD Work Phone: [facility] Start: 10-29-2023 End: 10-29-2023 Encounter Alfonzo Guerra MD Work Phone: [facility] Start: 10-27-2023 End: 10-27-2023 Encounter Alfonzo Guerra MD Work Phone: [facility] Start: 10-26-2023 End: 10-26-2023 ambulatory CONTRERASMichael COLINO Not Available Start: 10-22-2023 End: 10-22-2023 Encounter Alfonzo Guerra MD Work Phone: [facility] Start: 10-20-2023 End: 10-20-2023 Encounter Alfonzo Guerra MD Work Phone: [facility] Start: 10-20-2023 End: 10-20-2023 Emergency department patient visit PEREZ ANAYA [facility] Start: 10-16-2023 Encounter Alfonzo hernandez MD Work Phone: [facility] Start: 10-15-2023 End: 10-15-2023 ambulatory OMAMARY ANN NOVAK [facility] Start: 10-15-2023 End: 10-15-2023 Office outpatient visit 10 minutes Oma Novak DIRECTOR LEARNING SERVICES-SHELL TRIM TOOL SETTER Work Phone: [facility] Comment on above: Pre-eclampsia superi mposed on chronic hypertension, delivered (Primary Dx); History of Start: 10-14-2023 Encounter Alfonzo hernandez MD Work Phone: [facility] NICU Start: 10-12-2023 End: 10-12-2023 Evaluation and management of inpatient ELLIOT MACK [facility] Start: 10-08-2023 End: 10-09-2023 Evaluation and management of inpatient JAMAR ALY [facility] Start: 10-05-2023 End: 10-06-2023 Evaluation and management of inpatient BRIAN TREJO [facility] Start: 09-28-2023 End: 09-29-2023 Evaluation and management of inpatient MARGARITA REYES [facility] Start: 09-28-2023 End: 09-28-2023 ambulatory CAROLINE TREJO [facility] Start: 09-27-2023 End: 10-12-2023 Evaluation and management of inpatient JAK ANAYA [facility] Start: 2023 End: 2023 ambulatory CONTRERAS EMILI Not Available Start: 08-31-2023 Orders Only Carla Guerra [facility] at [facility] Comment on above: IUGR (intrauterine g rowth [...] trimester Start: 08-20-2023 Documentation procedure Jeniffer Kelsey [facility] Work Phone: Maternal- Medicine at [facility] Comment on above: Outgoing Ca ll Start: 08-18-2023 End: 08-18-2023 flow sheet Contreras Emili DO Work Phone: [facility] Comment on above: Second trimester pre gnancy; Diabetes mellitus screening; Thyroid disease affecting ([facility] Start: 08-18-2023 End: 08-18-2023 ambulatory CONTRERAS EMILI Not Available Start: 08-17-2023 Telephone encounter Althea PARIKH [facility] Start: 08-06-2023 End: 08-07-2023 ambulatory ALFONZO CADIGAN [facility] Start: 08-05-2023 Documentation procedure Yanelis Garrido MD Work Phone: [facility]- [facility] at [facility] Start: 08-05-2023 Telephone encounter Stacy Justin RN [facility] Start: 08-04-2023 Documentation procedure Carla Castillo es EXTENSION EDGER M[facility]- [facility] at [facility] Start: 08-04-2023 Telephone encounter Leslie reese [facility] Comment on above: Appointment IUGR (intrauterine g rowth restriction) affecting care of mother, second trimester, not applicable or unspecified fetus (Primary Dx); History of delivery, currently ; 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 trimester; Chronic hypertension affecting Start: 08-04-2023 End: 08-05-2023 ambulatory CONTRERAS R [facility] Start: 08-04-2023 End: 08-04-2023 Office outpatient visit 40 minutes Yanelis Garrido MD Work Phone: Maternal- Medicine at [facility] Comment on above: IUGR (intrauterine g rowth [...] Start: 04-18-2017 End: 04-19-2017 Ambulatory MORIAH BOND Facility:[facility] Procedures Date Procedure Procedure Detail Performing Clinician [...] section History of C-sectio n Oma Novak DIRECTOR LEARNING SERVICES-SHELL TRIM TOOL SETTER Work Phone: Plan of Treatment Date Care Activity Detail Author Start: 06-05-2031 DTaP,Tdap and Td Vaccines (7 - Td or Tdap) DTaP,Tdap and Td Vaccines (7 - Td or Tdap) [facility] Start: 06-05-2031 Urine microalbumin profile DTaP,Tdap,Td Vaccine (7 - Td or Tdap) [facility] Start: 11-24-2025 Screening for malign ant neoplasm of cervix Pap Smear [facility] Start: 05-08-2025 End: 05-08-2025 Patient encounter procedure 05/08/2025 11:00 AM EDT Office Visit [facility] [address] [address] Contreras Mock, DO [address], [place] [address] [facility] Start: 03-13-2025 Influenza vaccination Influenza Vacc ine (#1) [facility] Start: 01-19-2025 End: 07-22-2025 US Pelvis US Pelvis w/ TV Imaging Routine Pelvic pain in female Hx of ovarian cyst PCOS (polycystic ovarian syndrome) Insulin resistance Expected: 01/19/2025, Expires: 07/22/2025 [facility] Work Phone: Comment on above: Expected: 01/19/2025 , Expires: 07/22/2025 Start: 01-19-2025 End: 01-19-2025 Patient encounter procedure 01/19/2025 9:00 AM EDT Office Visit [facility] [address] [place] [address] Contreras Mock, DO [address] [place] [address] Arrived [facility] Comment on above: Arrived Start: 01-14-2025 Urine culture [facility] Start: 01-14-2025 Bacteria identified in Urine by Culture Urine Culture [facility] Start: 10-11-2024 Adult BMI Screening Adult BMI Screen ing [facility] Start: 10-11-2024 Tobacco Screening Tobacco Screening [facility] Start: 08-04-2024 Adult BMI Screening Adult BMI Screen ing [facility] Start: 08-04-2024 Tobacco Screening Tobacco Screening [facility] Start: 08-04-2024 End: 08-04-2024 US MFM with or without consult US MFM with or without consult Imaging Routine IUGR (intrauterine growth restriction) affecting care of mother, second trimester, not applicable or unspecified fetus History of delivery, currently 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 trimester Chronic hypertension affecting Expected: 08/04/2024 (Approximate), Expires: 08/04/2024 [facility] Work Phone: Comment on above: Expected: 08/04/2024 (Approximate), Expires: 08/04/2024 Start: 06-29-2024 End: 06-29-2024 Patient encounter procedure 06/29/2024 3:00 PM EST Office Visit [facility] [address] [phone] Olga Escobar PA [address] [place] [address] Arrived [facility] Comment on above: Arrived Start: 06-27-2024 End: 06-27-2024 Patient encounter procedure 06/27/2024 1:30 PM EST Office Visit [facility] [address] [place] [id number] Olga Escobar, PA [address] [place], [place] [id number] [facility] Start: 05-30-2024 End: 05-30-2024 Patient encounter procedure 05/30/2024 1:00 PM EST Office Visit [facility] [address] [place] [phone] Contreras Mock, [address] [place] [address] [facility] Start: 05-03-2024 End: 05-03-2024 Patient encounter procedure [facility] Comment on above: Arrived Start: 03-13-2024 Covid-19 Vaccine () Covid-19 Vaccine () [facility] Start: 03-13-2024 Influenza vaccination N [facility] Start: 03-08-2024 End: 03-08-2024 Patient encounter procedure 03/08/2024 1:00 PM EDT Office Visit [facility] [address] [place] [phone] Contreras Mock, DO [address] [place] [address] Arrived [facility] Comment on above: Arrived Start: 10-15-2023 End: 10-15-2023 Telemedicine consultation with patient 10/15/2023 9:00 AM EDT Telemedicine [facility] [address] [place] [facility] [place] [address] Oma Novak, DIRECTOR LEARNING SERVICES-SHELL TRIM TOOL SETTER [address] [place] [facility] [place] [address] [facility] Start: 09-15-2023 End: 09-15-2023 Patient encounter procedure 09/15/2023 10:20 AM EST Routine [facility] [address] [place] [phone] Contreras Mock, DO [address] [place] [address] [facility] Start: 08-18-2023 End: 08-18-2024 CBC panel - Blood by Automated count CBC Lab Routine Diabetes mellitus screening Expected: 08/18/2023 (Approximate), Expires: 08/18/2024 [facility] Work Phone: Comment on above: Expected: 08/18/2023 (Approximate), Expires: 08/18/2024 Start: 08-18-2023 End: 08-18-2024 Measurement of glucose 1 hour after glucose challenge for glucose tolerance test Glucose tolerance, 1 hour Lab Routine Diabetes mellitus screening Expected: 08/18/2023 (Approximate), Expires: 08/18/2024 [facility] Comment on above: Expected: 08/18/2023 (Approximate), Expires: 08/18/2024 Start: 08-17-2023 End: 08-17-2023 Patient encounter procedure [facility] Start: 08-05-2023 End: 08-05-2024 Unlisted Lab Test Unlisted Lab Test Lab Routine IUGR (intrauterine growth restriction) affecting care of mother, second trimester, not applicable or unspecified fetus Maternal care for other known or suspected poor growth, unspecified trimester, not applicable or unspecified Expected: 08/05/2023 (Approximate), Expires: 08/05/2024 [facility] Work Phone: Comment on above: Expected: 08/05/2023 (Approximate), Expires: 08/05/2024 Start: 03-13-2023 COVID-19 Vaccine ( season) COVID-19 Vaccine ( season) [facility] Start: 03-13-2023 Influenza vaccination N [facility] Start: 2017 Screening for malign ant neoplasm of cervix [facility] Start: 2014 Adult BMI Follow Up Plan Adult BMI Follow Up Plan [facility] Start: 2014 Anxiety Screening Anxiety Screening [facility] Start: 2014 Depression Screening Depression Scre ening [facility] Start: 2014 Hepatitis C screening Hepatitis C Sc reening [facility] Start: 2014 HIV screening HIV Screening [facility] Start: 2008 Depression Screening Depression Scre mildred [facility] End: 08-03-2024 Beta-2 glycoprotein antibodies Beta-2 glycoprotein antibodies Lab Routine IUGR (intrauterine growth restriction) affecting care of mother, second trimester, not applicable or unspecified fetus 1 Occurrences starting 08/04/2023 until 08/03/2024 [facility] Work Phone: Comment on above: 1 Occurrences starti ng 08/04/2023 until 08/03/2024 Comprehensive metabo lic 1999 panel - Serum or Plasma [facility] Comprehensive metabo lic 1999 panel - Serum or Plasma [facility] Cytology Cervical or vaginal smear or scraping study Pap Smear Pathology and Cytology Routine Well woman exam with routine gynecological exam Ordered: 05/03/2024 [facility] Work Phone: Comment on above: Ordered: 05/03/2024 Thyroid gland [facility] Thyroid gland [facility] Immunizations Immunization Date Immunization Notes Care Provider Pete olson 06-10-2022 influenza virus vaccine, unspecified formulation [facility] 06-05-2021 influenza, injectabl e, quadrivalent, preservative free [facility] 06-05-2021 tetanus toxoid, reduced diphtheria toxoid, and acellular pertussis vaccine, adsorbed [facility] 06-05-2021 influenza virus vaccine, unspecified formulation Contreras Mock DO Work Phone: [facility] Healthcare Payers Date Payer Category Payer Blue [employer] Blue Shield [id number] [id number] 2022 Unknown [id number] 2020 Unknown [id number] 2020 Unknown [id number] 1996 Unknown [id number] 2.16.84 0.1.629858.3.579.2.593 1996 Unknown [id number] 2.16. 840.1.834619.3.579.2.175 1996 Unknown [id number] 2.16.8 40.1.844392.3.579.2.1285 1996 Unknown [id number] 2.16.8 40.1.998707.3.579.2.1285 1996 Unknown [id number] 2.16.8 40.1.159035.3.579.2.1285 1996 Unknown [id number] 2.16.8 40.1.391439.3.579.2.1285 1996 Unknown [id number] 2.16.8 40.1.726190.3.579.2.1285 1996 Unknown [id number] 2.16.8 40.1.144950.3.579.2.1285 1996 Unknown [id number] 2.16.8 40.1.111193.3.579.2.1285 1996 Unknown [id number] 2.16.8 40.1.050271.3.579.2.1285 1996 Unknown [id number] 2.16.8 40.1.304872.3.579.2.1285 1996 Unknown [id number] 2.16.8 40.1.293499.3.579.2.1285 1996 Unknown [id number] 2.16.8 40.1.384890.3.579.2.1285 1996 Unknown [id number] 2.16.8 40.1.528483.3.579.2.1285 1996 Unknown [id number] 2.16.84 0.1.900246.3.579.2.1259 1996 Unknown [id number] 2.16.84 0.1.505898.3.579.2.1259 1996 Unknown [id number] 2.16.84 0.1.134973.3.579.2.1258 1996 Unknown [id number] 2.16.84 0.1.788652.3.579.2.1258 1996 Unknown [id number] 2.16.84 0.1.399293.3.579.2.1258 1996 Unknown [id number] 2.16.840 .1.558357.3.579.2.1258 1996 Unknown [id number] 2.16.8 40.1.140536.3.579.2. 1996 Unknown [id number] 2.16.8 40.1.144177.3.579.2. 1996 Unknown [id number] 2.16.8 40.1.822198.3.579.2. 1996 Unknown [id number] 2.16.8 40.1.496766.3.579.2. 1996 Unknown [id number] 2.16.8 40.1.670509.3.579.2. 1996 Unknown [id number] 2.16.8 40.1.384959.3.579.2. 1996 Unknown [id number] 2.16.8 40.1.125923.3.579.2. 1996 Unknown [id number] 2.16.8 40.1.856883.3.579.2. 1996 Unknown [id number] 2.16.8 40.1.308862.3.579.2. 1996 Unknown [id number] 2.16.8 40.1.394201.3.579.2.1258 1996 Unknown [id number] 2.16.84 0.1.581113.3.579.2.1258 1996 Unknown [id number] 2.16.84 0.1.259857.3.579.2.9 1996 Unknown [id number] 2.16.84 0.1.242311.3.579.2.1259 1959 Unknown [id number] Unknown [id number] Social History Date Type Detail Facility Start: 12-19-2022 End: 10-03-2024 Tobacco smoking status NHIS Never smoked tobacco [facility] Start: 08-18-2023 End: 01-19-2025 Alcohol intake Ex-drinker (finding) [facility] Start: 12-19-2022 End: 03-08-2024 History of Social function [facility] Start: 12-19-2022 End: 03-08-2024 Tobacco use panel [facility] Start: 12-19-2022 Alcohol Comment occasional [facility] Start: 03-26-2023 [facility] Start: 1995 Sex Assigned At Female [facility] Start: 04-22-2021 Gender identity Identifies as female gender (finding) [facility] Start: 04-22-2021 Sexual orientation Heterosexual (fin ding) [facility] Tobacco smoking status WAIS Tobacco smoking consumption unknown [facility] Adult Depression Screening Assessment 0 [facility] Start: 05-25-2023 Tobacco use and exposure Smokeless tobacco non-user [facility] Start: 10-03-2024 End: 12-21-2024 Sex Female (finding) [facility] NEGATED: Highlighted row [facility] Goals Date Patient Goal Desired Activity /State Personal health goal Clinical Notes 08-04-2023 to 01-19-2025 Irene Hassan LPN - 01/19/2025 9:00 AM EDT Note Date & Type Note Facility 01-19-2025 History of Presen t illness Narrative Reason for Appointment: Patient ID: Sisi Mora is a 29 y.o. female who presents for ER Follow-up (Pt present today for an ER f/up visit. Pt was seen at [facility] on 01/14/2025 for pelvic pain h/o cysts.) Patient presents today for Consult appointment. MEDICATIONS Current Outpatient Medications Medication Instructions labetalol [...] Diagnosis Date Noted Anxiety 02/12/2023 Bronchial asthma (HCC) 02/12/2023 Depression 02/12/2023 Essential hypertension 02/12/2023 GERD (gastroesophageal reflux disease) 02/12/2023 Insomnia 02/12/2023 Maternal care for other known or suspected poor growth, unspecified trimester, not applicable or unspecified ([facility]) 05/28/2021 Migraine headache 02/12/2023 Morbid obesity ([facility]) 02/12/2023 PCOS (polycystic ovarian syndrome) 02/12/2023 Seasonal allergic rhinitis 02/12/2023 Resolved Ambulatory Problems Diagnosis Date Noted No Resolved Ambulatory Problems Past Medical History: Diagnosis Date History of Hyperthyroidism Hypothyroidism Insulin resistance Morbid obesity with body mass index (BMI) of 40.0 to 49.9 ([facility]) Pap smear for cervical cancer screening 11/24/2022 HISTORY PAST MEDICAL HISTORY SOCIAL HISTORY Past Medical History: Diagnosis Date History of Hyperthyroidism Hypothyroidism Insulin resistance Morbid obesity with body mass index (BMI) of 40.0 to 49.9 ([facility]) Body mass index (BMI) of 40.0 to [...] SECTION, LOW TRANSVERSE MOLE REMOVAL 12/2011 benign IN KNEE SCOPE,CLEAN/DRAIN Left 09/2014 TONSILLECTOMY TUBAL LIGATION 10/09/2023 TUMOR 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 Negative for fever. HENT: Negative. Eyes: Negative. Respiratory: Negative. Cardiovascular: Negative. Gastrointestinal: Negative. Negative for constipation and diarrhea. Genitourinary: Positive for menstrual problem and pelvic pain. Negative for dysuria, frequency and hematuria. Musculoskeletal: Negative. Negative for arthralgias and myalgias. Skin: Negative. Neurological: Negative. All other systems reviewed and are negative. Hematological: Negative. Endocrine: Negative. Allergic/Immunologic: Negative. OBJECTIVE Objective: OBGyn Exam Vitals: Estimated body mass index is 46.52 kg/m as calculated from the following: Height as of this encounter: 5' 7 . Weight as of this encounter: 297 lb. BP: 118/74 Patient's last menstrual period was 01/19/2025 (exact date). ASSESSMENT & PLAN ICD-10-CM 1. Pelvic pain in female R10.2 2. Hx of ovarian cyst Z87.42 Patient presents today for ER follow up. Patient voiced that this is the 2nd or 3rd time having this pain and has had history of ovarian cyst. Patient voiced that ER did not have an US tech on-call/in facility at the time to confirm if she had an ovarian cyst. Patient advised to call office next time this happens and an US can be ordered to be scheduled. Discussed hormones with patient for management & discussed pros and cons with patient. Patient will try hormone management for 6 months to see if this help. Patient denies pain at this time and will reach out to office if pain returns to have US obtained. Patient desires to look into getting Ozempic. Patient has failed Adipex and Metformin for management of PCOS, insulin resistance and failed oral medication. Nursing will look into getting Ozempic covered through insurance. Patient will be notified of outcome. Patient to schedule annual for 04/2025 prior to leaving office today. Documented by Irene Hassan LPN on behalf of: Contreras Mock DO documented in this encounter [facility] 11-04-2024 Evaluation note Diagnosis Onset Date Resolution Hypertension acute November 04, 2024 8:54am Hypothyroidism acute October 8:54am Obesity, morbid, BMI 40.0-49.9 acute November 04, 2024 8:54am Bronchitis acute December 21 11:26am Depression acute January 03 10:45am Hypertension acute January 03, 10:45am Impaired fasting glucose acute January 03, 2025 10:45am Insulin resistance acute December 122024 10:45am Obesity, morbid, BMI 40.0-49.9 acute January 03, 2025 10:45am PCOS (polycystic ovarian syndrome) acute January 03, 2025 10:45am [facility] Work Phone: 1(869) 396-673503-24-2025 Evaluation note* Diagnosis Onset Date Resolution Status Admit Date Fatigue acute October 03 8:52am Hypertension acute October 03, 2024 8:52am Hypothyroidism acute September 8:52am Obesity, morbid, BMI 40.0-49.9 acute October 03, 2024 8:52am Thyroid nodule acute September 8:52am [facility] Work Phone: 1(676) 643-772703-24-2025 Evaluation note* Diagnosis Onset Date Resolution Status Admit Date Fatigue acute October 03 8:52am Hypertension acute October 03, 2024 8:52am Hypothyroidism acute September 8:52am Obesity, morbid, BMI 40.0-49.9 acute October 03, 2024 8:52am Thyroid nodule acute September 8:52am Hypertension acute November 04, 2024 8:54am Hypothyroidism acute October 8:54am Obesity, morbid, BMI 40.0-49.9 acute November 04, 2024 8:54am Bronchitis acute December 21 11:26am [facility] Work Phone: 1(249) 653-816701-24-2025 History of Present illness Narrative* Olivia Tuttle, PhD - 08/05/2024 10:46 AM EST Sisi Mora [id number] August 05, 2024 [facility] Bariatric and Metabolic [facility] M61 Psychology Orientation/ Welcome Group CPT: NO [...] Olivia Tuttle, Ph.D. Psychologist documented in [facility] History of Present illness Narrative* HUMBERTO Lovell [...] Tromethamine Hives Other Reaction(s): other, Unknown Other Asra contrast Tramadol Hives Other Reaction(s): other PROBLEMS Active Ambulatory Problems Diagnosis Date Noted Anxiety 02/12/2023 Bronchial asthma ([facility]) 02/12/2023 Depression ([facility]) 02/12/2023 Essential hypertension ([facility]) 02/12/2023 GERD (gastroesophageal reflux disease) 02/12/2023 Insomnia 02/12/2023 Maternal care for other known or suspected poor growth, unspecified trimester, not applicableor unspecified 05/28/2021 Migraine headache ([facility]) 02/12/2023 Morbid obesity ([facility]) 02/12/2023 PCOS (polycystic ovarian syndrome) 02/12/2023 Seasonal allergic rhinitis 02/12/2023 Resolved Ambulatory Problems Diagnosis Date Noted No Resolved Ambulatory Problems Past Medical History: Diagnosis Date History of Hyperthyroidism ([facility]) Hypothyroidism ([facility]) Insulin resistance Morbid obesity with body mass index (BMI) of 40.0 to 49.9 ([facility]) Pap smear for cervical cancer screening 11/24/2022 HISTORY PAST MEDICAL HISTORY SOCIAL HISTORY Past Medical History: Diagnosis Date History of Hyperthyroidism ([facility]) Hypothyroidism ([facility]) Insulin resistance Morbid obesity with body mass index (BMI) of 40.0 to 49.9 ([facility]) Body mass index (BMI) of 40.0 to [...] SECTION, LOW TRANSVERSE MOLE REMOVAL 12/2011 benign IN KNEE SCOPE,CLEAN/DRAIN Left 09/2014 TONSILLECTOMY TUBAL LIGATION [...] behalf of: HUMBERTO Lovell documented in this encounterSoutheast [facility] Treatment [id number] History of Present illness Narrative* Irene Hassan, VAMSHI - 05/30/2024 1:00 PM EST Reason [...] Diagnosis Date Noted Anxiety 02/12/2023 Bronchial asthma ([facility]) 02/12/2023 Depression ([facility]) 02/12/2023 Essential hypertension ([facility]) 02/12/2023 GERD (gastroesophageal reflux disease) 02/12/2023 Insomnia 02/12/2023 Maternal care for other known or suspected poor growth, unspecified trimester, not applicableor unspecified 05/28/2021 Migraine headache ([facility]) 02/12/2023 Morbid obesity ([facility]) 02/12/2023 PCOS (polycystic ovarian syndrome) 02/12/2023 Seasonal allergic rhinitis 02/12/2023 Resolved Ambulatory Problems Diagnosis Date Noted No Resolved Ambulatory Problems Past Medical History: Diagnosis Date History of Hyperthyroidism ([facility]) Hypothyroidism ([facility]) Insulin resistance Morbid obesity with body mass index (BMI) of 40.0 to 49.9 ([facility]) Pap smear for cervical cancer screening 11/24/2022 HISTORY PAST MEDICAL HISTORY SOCIAL HISTORY Past Medical History: Diagnosis Date History of Hyperthyroidism ([facility]) Hypothyroidism ([facility]) Insulin resistance Morbid obesity with body mass index (BMI) of 40.0 to 49.9 ([facility]) Body mass index (BMI) of 40.0 to [...] SECTION, LOW TRANSVERSE MOLE REMOVAL 12/2011 benign IN KNEE SCOPE,CLEAN/DRAIN Left 09/2014 TONSILLECTOMY TUBAL LIGATION [...] nursing note reviewed. Exam conducted with a area coordinator present. Vitals: Estimated body mass index is [...] of: Contreras Mock DO documented in this encounterSoutheast [facility] Community Treatment [id number] History of Present illness Narrative* Virginia Andrea [...] Diagnosis Date Noted Anxiety 02/12/2023 Bronchial asthma ([facility]) 02/12/2023 Depression ([facility]) 02/12/2023 Essential hypertension ([facility]) 02/12/2023 GERD (gastroesophageal reflux disease) 02/12/2023 Insomnia 02/12/2023 Maternal care for other known or suspected poor growth, unspecified trimester, not applicableor unspecified 05/28/2021 Migraine headache ([facility]) 02/12/2023 Morbid obesity ([facility]) 02/12/2023 PCOS (polycystic ovarian syndrome) 02/12/2023 Seasonal allergic rhinitis 02/12/2023 Resolved Ambulatory Problems Diagnosis Date Noted No Resolved Ambulatory Problems Past Medical History: Diagnosis Date History of Hyperthyroidism ([facility]) Hypothyroidism ([facility]) Insulin resistance Morbid obesity with body mass index (BMI) of 40.0 to 49.9 ([facility]) Pap smear for cervical cancer screening 11/24/2022 [...] SECTION, LOW TRANSVERSE MOLE REMOVAL 12/2011 benign IN KNEE SCOPE,CLEAN/DRAIN Left 09/2014 TONSILLECTOMY TUBAL LIGATION [...] nursing note reviewed. Exam conducted with a area coordinator present. Vitals: Estimated body mass index is 44.5 kg/m as calculated from the following: Height as of 7/11/23: 5' 7 . Weight as of 03/08/24: 284 lb 1.9 oz. BP: No LMP recorded. ASSESSMENT & PLAN ICD-10-CM 1. Well woman exam with routine gynecological exam Z01.419 Pap Smear 2. depression ([facility]) F53.0 3. Follow-up exam Z09 4. 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 venlafaxine XR (Effexor XR) 37.5 MG [...] of: Contreras Mock DO documented in this encounterSoutheast [facility] Community Treatment [id number] History of Present illness Narrative* Virginia Andrea [...] Diagnosis Date Noted Anxiety 02/12/2023 Bronchial asthma ([facility]) 02/12/2023 Depression ([facility]) 02/12/2023 Essential hypertension ([facility]) 02/12/2023 GERD (gastroesophageal reflux disease) 02/12/2023 Insomnia 02/12/2023 Maternal care for other known or suspected poor growth, unspecified trimester, not applicableor unspecified 05/28/2021 Migraine headache ([facility]) 02/12/2023 Morbid obesity ([facility]) 02/12/2023 PCOS (polycystic ovarian syndrome) 02/12/2023 Seasonal allergic rhinitis 02/12/2023 Resolved Ambulatory Problems Diagnosis Date Noted No Resolved Ambulatory Problems Past Medical History: Diagnosis Date History of Hyperthyroidism ([facility]) Hypothyroidism ([facility]) Insulin resistance Morbid obesity with body mass index (BMI) of 40.0 to 49.9 ([facility]) Pap smear for cervical cancer screening 11/24/2022 HISTORY PAST MEDICAL HISTORY SOCIAL HISTORY Past Medical History: Diagnosis Date History of Hyperthyroidism ([facility]) Hypothyroidism ([facility]) Insulin resistance Morbid obesity with body mass index (BMI) of 40.0 to 49.9 ([facility]) Body mass index (BMI) of 40.0 to [...] SECTION, LOW TRANSVERSE MOLE REMOVAL 12/2011 benign IN KNEE SCOPE,CLEAN/DRAIN Left 09/2014 TONSILLECTOMY TUBAL LIGATION [...] nursing note reviewed. Exam conducted with a area coordinator present. Vitals: Estimated body mass index is [...] the following just effexor. Pt to contact sludge control attendant about bp meds. Pt to return for annual- and follow up with medication. Pt denies suicidal and homicidal ideations. Documented by Virginia Andrea LPN on behalf of: Contreras Mock DO documented in this encounterSoutheast [facility] Community Treatment [id number] Miscellaneous Notes* Note - Susie Vasquez RN - 12/21/2023 1:45 PM EDT This note was copied from a baby's chart. Met with mother at infants bedside. States pumping is going well and supply is decreased slightly. Hoping that when she goes home she can have a better routine. Encouraged pumping every 2-3 hours [id number] minutes at suction level that is comfortable. [...] Questions answered, encouragement given. [facility]stetrics [facility]* Note - Susie Vasquez RN - 12/21/2023 1:45 PM EDT This note was copied from a baby's chart. Met with mother at infants bedside. States pumping is going well and supply is decreased slightly. Hoping that when she goes home she can have a better routine. Encouraged pumping every 2-3 hours [id number] minutes at suction level that is comfortable. [...] outpatient info highlighted. Questions answered, encouragement given. [facility]06-09-2024 Miscellaneous Notes* Note - Xenia Lomeli RN - 12/20/2023 7:23 PM EDT This note was copied from a baby's chart. Met with mom at 's bedside. States pumping is going well with stable supply and no pain or breakdown noted. No immediate questions or concerns, encouraged to call out for any other assistance. documented in this [facility]* Note - Xenia Lomeli RN - 12/20/2023 7:23 PM EDT This note was copied from a baby's chart. Met with mom at infant's bedside. States pumping is going well with stable supply and no pain or breakdown noted. No immediate questions or concerns, encouraged to call out for any other assistance. [facility] Miscellaneous Notes* Note - Xenia Lomeli RN - 12/18/2023 11:42 AM EDT This note was copied from a baby's chart. Met with mom at infant's bedside. States pumping continues to go well with stable supply and no complaints of pain or breakdown. No immediate questions or concerns, encouraged to call out for any other assistance. documented in this [facility]st[facility]s [facility]* Note - Xenia Lomeli RN - 12/18/2023 11:42 AM EDT This note was copied from a baby's chart. Met with mom at infant's bedside. States pumping continues to go well with stable supply and no complaints of pain or breakdown. No immediate questions or concerns, encouraged to call out for any other assistance. [facility] Miscellaneous Notes* Note - Susie Vasquez RN - 12/17/2023 10:45 AM EDT This note was copied from a baby's chart. Met with mother at infants bedside. States pumping is going well and supply is stable. No complaints of pain or discomfort. No questions or concerns at this time. Support given. [facility]stetrics [facility]* Note - Susie Vasquez RN - 12/17/2023 10:45 AM EDT This note was copied from a baby's chart. Met with mother at infants bedside. States pumping is going well and supply is stable. No complaints of pain or discomfort. No questions or concerns at this time. Support given. [facility] NoteEntered by Sindy Cormier on December 14, 2023 09:59:29 EDT From: Sindy Cormier To: [facility] 142 Sent: 12/14/2023 09:59:29 EDT Subject: Medication Management Submitted: Order:omeprazole (omeprazole 40 mg oral delayed release capsule) 1 cap(s) Oral Daily Qty: 30 cap(s) Days Supply: 30 Refills: 5 Substitutions Allowed Route To Pharmacy - [facility] 1429 Signed by Sindy Cormier 12/14/2023 09:59:00 [...] [facility] Signed by Sindy Cormier From: [facility]29 To: Azael LOPEZ, Alfonzo Sumner MD Sent: December 13, 2023 5:45:21 AM CDT Subject: Medication Management Due: December 14, 2023 12:32:47 AM CDT On Hold Pending Signature Dispensed Drug: omeprazole (omeprazole 40 mg oral delayed release capsule), Take 1 capsule by mouthonce daily Quantity: 30 cap(s) Days Supply: 30 Refills: 0 Substitutions [id number] Miscellaneous Notes* Note - Marely Rabago RN - 12/13/2023 7:45 PM EDT This note was copied from a baby's chart. Met with mother at bedside. States diana supply is stable and she has no needs at this time. Support given. documented in this [facility]st[facility]s [facility]* Note - Marely Rabago RN - 12/13/2023 7:45 PM EDT This note was copied from a baby's chart. Met with mother at bedside. States diana supply is stable and she has no needs at this time. Support given. [facility] Miscellaneous Notes* Note - Xenia Lomeli RN - 12/11/2023 11:27 AM EDT This note was copied from a baby's chart. Met with mom at infant's bedside. States that pumping is going well with stable supply and denies any pain or breakdown. No immediate questions or concerns, encouraged to call out for any other assistance. documented in this [facility]05-31-2024 Obstetrics Note* Note - Xenia Lomeli RN - 12/11/2023 11:27 AM EDT This note was copied from a baby's chart. Met with mom at infant's bedside. States that pumping is going well with stable supply and denies any pain or breakdown. No immediate questions or concerns, encouraged to call out for any other assistance. [facility] Miscellaneous Notes* Note - Xenia Lomeli RN - 12/10/2023 12:25 PM EDT This note was copied from a baby's chart. Met with mom at 's bedside. States that she had seen a [...] little one s mouth. documented in this [facility]st[facility]s Note* Note - Xenia Lomeli [...] could burn your little one s mouth. [facility] Miscellaneous Notes* Note - Susie Vasquez RN - 12/08/2023 12:30 PM EDT This note was copied from a baby's chart. Met with mother at infants bedside. No questions or concerns at this time. Encouragement given. documented in this [facility] Obstetrics Note* Note - Susie Vasquez RN - 12/08/2023 12:30 PM EDT This note was copied from a baby's chart. Met with mother at infants bedside. No questions or concerns at this time. Encouragement given. [facility] Miscellaneous Notes* Note - Karli Patton RN - 12/07/2023 9:20 AM EDT This note was copied from a baby's chart. Met with mom at infant's bedside. States pumping is going well. Getting [...] further needs or assistance. documented in this encounterC[facility] Obstetrics Note* Note - Karli Patton [...] out for any further needs or assistance. [facility] [employer] [id number] Miscellaneous Notes* Note - Xenia Lomeli RN - 12/04/2023 10:17 AM EDT This note was copied from a baby's chart. Met with mom at 's bedside. States that pumping continues to go well with stable supply and denies pain or breakdown. No immediate questions or concerns, encouraged to call out for any other assistance. documented in this encounterC[facility] Obstetrics Note* Note - Xenia Lomeli RN - 12/04/2023 10:17 AM EDT This note was copied from a baby's chart. Met with mom at 's bedside. States that pumping continues to go well with stable supply and denies pain or breakdown. No immediate questions or concerns, encouraged to call out for any other assistance. [facility] Miscellaneous Notes* Note - Xenia Lomeli RN - 12/03/2023 1:42 PM EDT This note was copied from a baby's chart. Met with mom at infant's bedside. States that pumping is going well with stable supply and denies pain or breakdown. No immediate questions or concerns, encouraged to call out for any other lactationassistance. documented in this encounterC[facility] Obstetrics Note* Note - Xenia Lomeli RN - 12/03/2023 1:42 PM EDT This note was copied from a baby's chart. Met with mom at 's bedside. States that pumping is going well with stable supply and denies pain or breakdown. No immediate questions or concerns, encouraged to call out for any other lactationassistance. [facility] Miscellaneous Notes* Note - Susie Vasquez RN - 12/01/2023 11:45 AM EDT This note was copied from a baby's chart. Met with mother at infants bedside. States she has been pumping but has spaced out pumping sessionsslightly, support given. Supply remains relatively stable. Discussed different pumping schedules and different types of pumps that may help. QUestions answered, encouragement given. documented in this encounterC[facility] Obstetrics Note* Note - Susie Vasquez RN - 12/01/2023 11:45 AM EDT This note was copied from a baby's chart. Met with mother at infants bedside. States she has been pumping but has spaced out pumping sessionsslightly, support given. Supply remains relatively stable. Discussed different pumping schedules and different types of pumps that may help. QUestions answered, encouragement given. [facility]s [facility]* Note - Anjana Howell [...] No questions at this time. Support given. [facility] Miscellaneous Notes* Note - Anjana Howell [...] this time. Support given. documented in this encounterC[facility] Miscellaneous Notes* Note - Xenia Lomeli RN - 11/26/2023 12:35 PM EDT This note was copied from a baby's chart. Met with mom at 's bedside. States pumping is going well with stable supply and denies pain or breakdown. No immediate questions or concerns, encouraged to call out for any other assistance. documented in this encounterC[facility] Obstetrics Note* Note - Xenia Lomeli RN - 11/26/2023 12:35 PM EDT This note was copied from a baby's chart. Met with mom at 's bedside. States pumping is going well with stable supply and denies pain or breakdown. No immediate questions or concerns, encouraged to call out for any other assistance. [facility] Miscellaneous Notes* Note - Xenia Lomeli RN - 11/24/2023 3:03 PM EDT This note was copied from a baby's chart. Met with mom at 's bedside. States pumping continues to go well with stable supply and no breakdown or pain noted. No immediate questions or concerns, encouraged to call out for any other assistance. documented in this [facility] Obstetrics Note* Note - Xenia Lomeli RN - 11/24/2023 3:03 PM EDT This note was copied from a baby's chart. Met with mom at 's bedside. States pumping continues to go well with stable supply and no breakdown or pain noted. No immediate questions or concerns, encouraged to call out for any other assistance. [facility] Miscellaneous Notes* Note - Xenia Lomeli RN - 11/20/2023 1:45 PM EDT This note was copied from a baby's chart. Met with mom at infant's bedside. States pumping continues to go well with stable supply and no complaints of breakdown or discomfort. No immediate questions or concerns, encouraged to call out for any other assistance. documented in this encounterC[facility] Obstetrics Note* Note - Xenia Lomeli RN - 11/20/2023 1:45 PM EDT This note was copied from a baby's chart. Met with mom at 's bedside. States pumping continues to go well with stable supply and no complaints of breakdown or discomfort. No immediate questions or concerns, encouraged to call out for any other assistance. [facility] Miscellaneous Notes* Note - Xenia Lomeli RN - 11/19/2023 10:06 AM EDT This note was copied from a baby's chart. Met with mom at 's bedside. States pumping continues to go well with stable supply and no complaints of breakdown or pain. No immediate questions or concerns, encouraged to call out for any other assistance. documented in this [facility] Obstetrics Note* Note - Xenia Lomeli RN - 11/19/2023 10:06 AM EDT This note was copied from a baby's chart. Met with mom at 's bedside. States pumping continues to go well with stable supply and no complaints of breakdown or pain. No immediate questions or concerns, encouraged to call out for any other assistance. [facility] Miscellaneous Notes* Note - Susie Vasquez RN - 11/17/2023 10:15 AM EDT This note was copied from a baby's chart. Met with mother at infants bedside. States pumping is going well and supply is stable. No complaints of pain or discomfort. No questions or concerns at this time. Encouragement given. documented in this encounterC[facility] Obstetrics Note* Note - Susie Vasquez RN - 11/17/2023 10:15 AM EDT This note was copied from a baby's chart. Met with mother at infants bedside. States pumping is going well and supply is stable. No complaints of pain or discomfort. No questions or concerns at this time. Encouragement given. [facility] Miscellaneous Notes* Note - Xenia Lomeli RN - 11/13/2023 11:47 AM EDT This note was copied from a baby's chart. Met with mom at 's bedside. States that pumping is going well with adequate supply with no pain or discomfort. No immediate questions or concerns, encouraged to call out for any other lactationassistance. documented in this encounterC[facility] Obstetrics Note* Note - Xenia Lomeli RN - 11/13/2023 11:47 AM EDT This note was copied from a baby's chart. Met with mom at 's bedside. States that pumping is going well with adequate supply with no pain or discomfort. No immediate questions or concerns, encouraged to call out for any other lactationassistance. [facility] Miscellaneous Notes* Note - Xenia Lomeli RN - 11/12/2023 12:56 PM EDT This note was copied from a baby's chart. Met with mom at 's bedside. States that pumping is going well with stable supply and denies pain or discomfort. No immediate questions or concerns, encouraged to call out for any other assistance. documented in this encounterC[facility] Obstetrics Note* Note - Xenia Lomeli RN - 11/12/2023 12:56 PM EDT This note was copied from a baby's chart. Met with mom at 's bedside. States that pumping is going well with stable supply and denies pain or discomfort. No immediate questions or concerns, encouraged to call out for any other assistance. [facility] Misc[facility] Notes* Note - Marely Rabago RN - 11/10/2023 7:40 PM EDT This note was copied from a baby's chart. Met with mother at bedside. States supply is stable and no pain is noted with pumping. Questions answered and support given. documented in this encounterC[facility] Obstetrics Note* Note - Marely Rabago RN - 11/10/2023 7:40 PM EDT This note was copied from a baby's chart. Met with mother at bedside. States supply is stable and no pain is noted with pumping. Questions answered and support given. [facility] Miscellaneous Notes* Note - Susie Vasquez [...] muchmilk is actually removed. documented in this encounterC[facility] Obstetrics Note* Note - Susie Vasquez [...] sucking and how muchmilk is actually removed. [facility] Miscellaneous Notes* Note - Xenia Lomeli [...] for any other assistance. documented in this encounterC[facility]04[facility] Obstetrics Note* Note - Xenia Lomeli RN - 11/07/2023 12:02 PM EDT This note was copied from a baby's chart. Met with mom at 's bedside. Continues to pump for baby in [...] out for any other assistance. [facility] [employer] [id number] Miscellaneous Notes* Note - Xenia Lomeli RN [...] for any other assistance. documented in this encounterC[facility]04[facility] Obstetrics Note* Note - Xenia Lomeli [...] to call out for any other assistance. [facility]04[facility] Miscellaneous Notes* Note - Xenia Lomeli [...] for any other lactationassistance. documented in this encounterC[facility]04[facility] Obstetrics Note* Note - Xenia Lomeli [...] to call out for any other lactationassistance. [facility] Miscellaneous Notes* Note - Anjana Howell [...] and all questions answered. documented in this encounterC[facility]04[facility] Obstetrics Note* Note - Anjana Howell [...] questions. Support given and all questions answered. [facility]04-23-2024 Miscellaneous Notes* Note - Karli Patton RN - 11/03/2023 2:00 PM EDT This note was copied from a baby's chart. Met with mom at 's bedside to assist with latching. At arrival mom had infant in cross cradlehold attempting to latch. attempted to latch on left breast for [...] further needs or assistance. documented in this encounterC[facility]04[facility] Obstetrics Note* Note - Karli Patton RN - 11/03/2023 2:00 PM EDT This note was copied from a baby's chart. Met with mom at 's bedside to assist with latching. At arrival mom had infant in cross cradlehold attempting to latch. attempted to latch on left breast for 10 minutes. No latch or swallows achieved. LC and mom discussed baby's gestational age and feeding cues. Feeding Cues: -hands in mouth -smacking lips [...] out for any further needs or assistance. [facility] [id number] Miscellaneous Notes* Note - Marely Raabgo RN - 11/01/2023 8:12 PM EDT This note was copied from a baby's chart. Met with mother at bedside. States pumping is going well and supply is stable. No pain or issues atthis time. Encouraged her to call out for LC with any questions. Support given. documented in this encounterC[facility]04[facility] Obstetrics Note* Note - Marely Rabago RN - 11/01/2023 8:12 PM EDT This note was copied from a baby's chart. Met with mother at bedside. States pumping is going well and supply is stable. No pain or issues atthis time. Encouraged her to call out for LC with any questions. Support given. [facility] [employer] [id number] Miscellaneous Notes* Note - Xenia Lomeli RN [...] on low respiratory support, discussed with mom infant scoring for hunger cues and offered 72 hours window. Mom agreeable with plan. Nursing will notify mom when infant has received adequate scoring. No further questions or concerns, encouraged to call out for any other assistance. Step 3: Indications Infant is active, alert and sucking at non-nutritive is stable with care or during Mbvk-er-Rvxe care Begins to transfer milk at breast Interventions Mother Monitors hunger cues Monitors time of feeding and tolerance during Coordinates pumping with feedings Continues to pump after each feeding RN/LC Continues to encourage aqyf-kb-zgiv daily and document Continue to assess milk supply, inquire about pumping or supply problems Initiate when infant shows cues, this may be 1 or [...] greater give no supplement documented in this encounterC[facility] Obstetrics Note* Note - Xenia Lomeli [...] with plan. Nursing will notify mom when has received adequate scoring. No further questions or concerns, encouraged to call out for any other assistance. Step 3: Indications Infant is active, alert and sucking at non-nutritive is stable with care or during Rsys-be-Tkhr care Begins to transfer milk at breast Interventions Mother Monitors hunger cues Monitors time of feeding and tolerance during Coordinates pumping with feedings Continues to pump after each feeding RN/LC Continues to encourage xfgf-pv-iptk daily and document Continue to assess milk supply, inquire about pumping or supply problems Initiate when infant shows cues, this may be 1 or 2 times daily. Try to give bottles when mom is not at bedside. To determine gavage supplementation: assess the amount of milk taken by discussion with mom or; if the actively sucks less than 5 minutes, give a full gavage feeding; for 5-15 minutes give of feeding; for 15 minutes or greater give no supplement [facility]04-18-2024 Miscellaneous Notes* Note - Xenia Lomeli RN [...] from this as well. documented in this encounterC[facility]04[facility] Obstetrics Note* Note - Xenia Lomeli [...] infection can develop from this as well. [facility]04-16[facility] Miscellaneous Notes* Note - Xenia Lomeli RN [...] for any other assistance. documented in this encounterC[facility]04[facility] Obstetrics Note* Note - Xenia Lomeli [...] to call out for any other assistance. [facility]04-[facility] Miscellaneous Notes* Note - Susie Vasquez [...] in milk production. Power pumping in the painter plate hours is very effective, because hormone levels [...] Questions answered, encouragement given. documented in this encounterC[facility]04[facility] Obstetrics Note* Note - Susie Vasquez [...] in milk production. Power pumping in the painter plate hours is very effective, because hormone levels [...] to try cookies. Questions answered, encouragement given. [facility]04-[facility] Miscellaneous Notes* Note - Susie Vasquez [...] Questions answered, encouragement given. documented in this encounterUniversity [facility] [id number] Obstetrics Note* Note - Susie Vasquez RN [...] use at bedside. Questions answered, encouragement given. [facility] [id number] Miscellaneous Notes* Note - Xenia Lomeli RN [...] for any other assistance. documented in this encounterC[facility]04[facility] Obstetrics Note* Note - Xenia Lomeli [...] to call out for any other assistance. [facility]04[facility] Miscellaneous Notes* Note - Kathy Howell RN - 10/15/2023 10:50 AM EDT This note was copied from a baby's chart. Met with mother at 's bedside. States pumping is going well and milk supply is increasing. Encouraged to reach out to with questions or concerns. Support given. Step 1: stable and able to tolerate Hyhc-nf-Hirh care Interventions Baby No weight or gestational age limitations, following IVH protocol Follow Lgyp-sl-Zhll Care Policy Length should be done as tolerated by the . At least once daily, increase as tolerated. Mother Put Oyvv-dp-Spox at least once daily, when possible documented in this encounterC[facility]04[facility] Obstetrics Note* Note - Kathy Howell RN - 10/15/2023 10:50 AM EDT This note was copied from a baby's chart. Met with mother at 's bedside. States pumping is going well and milk supply is increasing. Encouraged to reach out to with questions or concerns. Support given. Step 1: Infant stable and able to tolerate Kote-jd-Lqhc care Interventions Baby No weight or gestational age limitations, following IVH protocol Follow Hnbx-dt-Szbh Care Policy Length should be done as tolerated by the . At least once daily, increase as tolerated. Mother Put Qump-uh-Qtjo at least once daily, when possible [facility]04[facility] History of Present illness Narrative* Oma Kishore, DIRECTOR LEARNING SERVICES-SHELL TRIM TOOL SETTER - 10/15/2023 9:00 AM EDT Video Visit via Real-time Synchronous Audiovisual Provider Location: [facility] [address] [place] [phone] Patient Location: Other Patient Location Area Field Person: None Video Visit Consent Statement: I discussed [...] that there are some limitations compared to ocrn-rx-kzyg evaluations. We elected to proceed. Subjective: Sisi Mora is a 28 y.o. is seen today via televisit. She is 6 days post- from a [facility]s with TL at 30w1d. Her was complicated [...] Her home blood readings are as follows: 4: 140/92, 135/78 4/2: 130s/80s 4/3: 130s/70s General: well appearing, no acute distress. Neuro: Alert and oriented Respirations: even, non labored Assessment and Plan: Chronic Hypertension BP well controlled on current medication Plans to follow up with primary OB, has appointment next week History of FLORINA with SF History of C/S Meeting post op milestones as expected Pre-eclamptic warnings reviewed. Call provider clin application specialist for headache unresolved with tylenol, visualchange, epigastic pain or significant change in swelling in her hands feet or face. Let the office know if BP readings consistently over 140/90 (either number). Call provider clin application specialist for BP greater than 160/110 (either number). Hypotensive warnings reviewed - call if experiencing dizziness, weakness or fainting. CARLI Denny APRN-CNP 10/15/23 0922 documented in this encounterC[facility]04-03-2024 Miscellaneous Notes* Note - Parul Rizvi [...] out with any needs. documented in this encounterC[facility]04-[facility]-2024 Obstetrics Note* Note - Parul Rizvi [...] Encouraged to reach out with any needs. [facility]02-19[facility] History of Present illness Narrative* Yanelis [...] conditions (Bartter type 2 & cystic fibrosis [id number]) Our genetic counselor reviewed the results with [...] patient's care. Yanelis Garrido MD Professor, [facility] Maternal Medicine documented in this encounterC[facility] History of Present illness Narrative* Elizabeth Kelsey [facility] - 08/20/2023 3:46 PM ESTSummary: MOB carrier [...] or concerns come up. documented in this encounterCleveland [facility]02-08-2024 History of Present illness Narrative* CRISSY Acevedo - 08/20/2023 9:04 AM ESTSummary: Carrier Screening Results Called and left VM for Sisi requesting a call back regarding carrier screening results. documented in this encounterCleveland Clinic [facility]02-06-2024 History of Present illness Narrative* Virginiatommy Andrea, INVESTIGATION DIVISION CAPTAIN - 08/18/2023 10:20 AM EST Reason for Appointment: Patient ID: Sisi Mora is a 27 y.o. female who presents for Routine Visit Patient presents today for Return OB appointment. Current Medications: has a current medication list which includes the following prescription(s): b- 12, labetalol, levothyroxine, metoclopramide, omeprazole, and pyridoxine. Medical History: Active Ambulatory Problems Diagnosis Date Noted Anxiety 02/12/2023 Bronchial asthma ([facility]) 02/12/2023 Depression ([facility]) 02/12/2023 Essential hypertension ([facility]) 02/12/2023 GERD (gastroesophageal reflux disease) 02/12/2023 Insomnia 02/12/2023 Maternal care for other known or suspected poor growth, unspecified trimester, not applicableor unspecified 05/28/2021 Migraine headache ([facility]) 02/12/2023 Morbid obesity ([facility]) 02/12/2023 PCOS (polycystic ovarian syndrome) 02/12/2023 Seasonal allergic rhinitis 02/12/2023 Resolved Ambulatory Problems Diagnosis Date Noted No Resolved Ambulatory Problems Past Medical History: Diagnosis Date History of Hyperthyroidism ([facility]) Hypothyroidism ([facility]) Insulin resistance Morbid obesity with body mass index (BMI) of 40.0 to 49.9 ([facility]) Pap smear for cervical cancer screening 11/24/2022 [...] SECTION, LOW TRANSVERSE MOLE REMOVAL 12/2011 benign IN KNEE SCOPE,CLEAN/DRAIN Left 09/2014 TONSILLECTOMY TUMOR REMOVAL [...] nursing note reviewed. Exam conducted with a area coordinator present. Vitals: Estimated body mass index is 44.19 kg/m as calculated from the following: Height as of 01/20/23: 5' 7 . Weight as of this encounter: 282 lb 1.9 oz. BP: 122/80 Patient's last menstrual period was 03/12/2023. Assessment/Plan Encounter Diagnoses Name Primary? Second trimester Diabetes mellitus screening Thyroid disease affecting ([facility]) Patient presents today for a routine obstetrics appointment. Patient is currently 22w5d with a Estimated Date of Delivery: 12/17/23. Pt doing well- reviewed recent [facility] appt. Pt to return to [facility] in 2 weeks. Pt to return in 4 weeks for scheduled OB appt. Documented by Virginia Andrea LPN on behalf of: Contreras Mock DO documented in this encounterSoutheast Missouri Community Treatment [id number] Miscellaneous Notes* Telephone Encounter - Althea Olson LPN - 08/17/2023 4:04 PM EST Patient returned call states she is being seen somewhere else. documented in this encounterCleveland Clinic [facility]02-05-2024 Telephone encounter Note* Telephone Encounter - Althea Olson LPN - 08/17/2023 4:04 PM EST Patient returned call states she is being seen somewhere else. [facility] Miscellaneous Notes* Telephone Encounter - Althea Olson LPN - 08/17/2023 3:17 PM EST Please call us back to get rescheduled for your jordan. documented in this encounterCleveland Clinic [facility]02-05-2024 Telephone encounter Note* Telephone Encounter - Althea Olson LPN - 08/17/2023 3:17 PM EST Please call us back to get rescheduled for your jordan. [facility]01-[facility] Miscellaneous Notes* Telephone Encounter - Stacy Justin RN - 08/05/2023 9:59 AM EST Left message for patient that an additional lab has been ordered that needs to be drawn at a [facility] lab only. Call back phone number given if patient has questions. * Telephone Encounter - Stacy Justin RN - 08/05/2023 9:59 AM EST Patient returned call to [facility] and will have additional lab done at a [facility] lab. Patient also hadconcerns regarding future Doppler US being done here at [facility]. Patient will do initial Doppler here and may need to do [place] due to son having surgery in [place]. documented in this encounterCleveland Clinic [facility]01-24-2024 Telephone encounter Note* Telephone Encounter - Stacy Justin RN - 08/05/2023 9:59 AM EST Left message for patient that an additional lab has been ordered that needs to be drawn at a [facility] lab only. Call back phone number given if patient has questions. [facility]01-[facility] Telephone encounter Note* Telephone Encounter - Stacy Justin RN - 08/05/2023 9:59 AM EST Patient returned call to [facility] and will have additional lab done at a [facility] lab. Patient also hadconcerns regarding future Doppler US being done here at [facility]. Patient will do initial Doppler here and may need to do [place] due to son having surgery in [place]. [facility]01-[facility] History of Present illness Narrative* Yanelis [...] lab is drawn at 1 of the [facility] locations because it seems that result availability and of test and correctly performed test is more likely whenordered through our Internal lab. I will ask our nursing staff to contact the patient and relay instructions. Yanelis Garrido MD Professor, [facility] Maternal Medicine documented in this [facility]01-23-2024 History of Present illness Narrative* Carla Guerra CMA - 08/04/2023 11:34 AM EST Lab drawn for cell-free DNA testing. Patient tolerated well. (Lab came to draw ) documented in this [facility]01-23-2024 Miscellaneous Notes* Telephone Encounter - Leslie Souza - 08/04/2023 11:12 AM EST Patient refused to schedule umb doppler in 3 weeks. Son is having surgery and she will call at a later time to schedule. documented in this [facility]01-23-2024 Telephone encounter Note* Telephone Encounter - Leslie Souza - 08/04/2023 11:12 AM EST Patient refused to schedule umb doppler in 3 weeks. Son is having surgery and she will call at a later time to schedule. [facility]01-[facility] History of Present illness Narrative* Carla Guerar CMA - 08/04/2023 9:30 AM EST Headache/epigastric [...] was 45 minutes. 34 minutes were direct [id number] for counseling and coordination of care during visits itself. An additional 4 minutes or for same day preparation to see the patient. Another 7 minutes were needed were needed to prepare report and or to perform other duties to complete visit. Thank you for sending this patient. Yanelis Garrido MD Maternal Medicine Professor, [facility] [phone]- Office [phone]- Personal Cell Phone Office Note: Chronic hypertension [...] primary OB provider team. documented in this encounterCleveland Clinic Medina HospitalEvaluation note* Diagnosis Second trimester state, incidental Diabetes [...] serious comorbidity present documented in this encounter [facility] Diagnosis IUGR (intrauterine growth restriction) affecting care of mother, second trimester, not applicable or unspecified fetus- Primary History of delivery, currently with history of pre-term labor 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 trimester Hx of preeclampsia, prior , currently , second trimester documented in this encounter [facility]* Diagnosis IUGR (intrauterine growth restriction) affecting care of mother, second trimester, not applicable or unspecified fetus- Primary History of delivery, currently with history of pre-term labor 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 trimester Chronic hypertension affecting [facility]* Diagnosis IUGR (intrauterine growth restriction) affecting care of mother, second trimester, not applicable or unspecified fetus- Primary Maternal care for other known or suspected poor growth, unspecified trimester, not applicable or unspecified documented in this [facility]* Diagnosis IUGR (intrauterine growth restriction) affecting care of mother, second trimester, not applicable or unspecified fetus Chronic hypertension affecting Hx of preeclampsia, prior , currently , second trimester documented in this encounter [facility]* Diagnosis IUGR (intrauterine growth restriction) affecting care of mother, second trimester, not applicable or unspecified fetus- Primary Chronic hypertension affecting Hx of preeclampsia, prior , currently , second trimester documented in this encounter [facility]* Diagnosis Pre-eclampsia superimposed on chronic hypertension, delivered- Primary History of Other postprocedural status documented in this encounter [facility]* Diagnosis Onset Date Resolution Status Admit Date Fatigue acute October 03 8:52am Hypertension acute October 03, 2024 8:52am Hypothyroidism acute September 8:52am Obesity, morbid, BMI 40.0-49.9 acute October 03, 2024 8:52am Thyroid nodule acute September 8:52am [facility] Work Phone: Evaluation note* Diagnosis Pelvic pain in female Unspecified symptom associated with female genital organs Hx of ovarian cyst PCOS (polycystic ovarian syndrome) Polycystic ovaries Insulin resistance Other abnormal glucose documented in this encounter [facility] HealthcareInstructionsNot on filedocumented in this encounterProMediKettering [facility] SystemInstructionsNot on filedocumented in this encounterProPickens [facility] SystemInstructionsNot on filedocumented in this encounterProDetwiler [facility] SystemInstructionsNot on filedocumented in this encounterProDetwiler [facility] InstructionsNot on filedocumented in this encounterProDetwiler [facility] System InstructionsNot on filedocumented in this encounterOhio [facility] InstructionsNot on filedocumented in this encounterOhio [facility] SystemReason for referral (narrative)No reason for referral information availableUniversity [facility]als [facility] Work Phone: Reason for visit Narrative* Consultation (Routine) - Pending Review Specialty Diagnoses / Procedures Referred By Contac t Referred To Contact Obstetrics and Gynecology Diagnoses Pre-eclampsia, severe, with delivery Andrew Emery MD [id number] [place] [address] Oma Novak, DIRECTOR LEARNING SERVICES-SHELL TRIM TOOL SETTER [address] [place] [address] Referral ID Status Reason Start Date Expiration Date V isits Requested Visits Authorized [id number] Pending Review 10/12/2023 10/11/2024 1 1 [facility] Summary Purpose Family History No Family History Records Found Relationship Condition Age at Onset Recorded Date/T petra father Heart disease Unknown Myocardial infarction Unknown Hypertension Unknown Cerebrovascular accident (CVA) Unknown mother Cerebrovascular accident (CVA) Unknown Advance Directives No Advanced Directives Records Found Date Activated Date Inactivated Comments 09/27/2023 5:00 [...] Recorded Date/ Time Advance Directives No September 30, 2 025 8:47am Reason for Referral Specialty Diagnoses / Procedures Referred By Contac t Referred To Contact Maternal and Medicine Diagnoses IUGR (intrauterine growth restriction) affecting care of mother, second trimester, not applicable or unspecified fetus History of delivery, currently 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 trimester Chronic hypertension affecting Procedures US MFM with or without consult Yanelis Garrido MD [address] [place] [address] [facility] Maternal Med [address] [place] [address] Referral ID Status Reason Start Date Expiration Date V isits Requested Visits Authorized [id number] Pending Review 08/04/2023 08/03/2024 1 1 Chief [...] 8:54am Bronchitis December 21, 2024 11:2 6am Chief Complaint Admit Date 1 month f/u November 04, 2024 8:5 4am Cough, congestion, fever December 21, 2024 11:26am 2 month f/u January 03, 2025 10:4 5am Unknown January 14, 2025 11:55 pm Reason for Visit Admit Date Hypertension November 04, 2024 8:5 4am Hypothyroidism November 04, 2024 8:5 4am Obesity, morbid, BMI 40.0-49.9 October 8:54am Bronchitis December 21, 2024 11:2 6am Depression January 03, 2025 10:4 5am Hypertension January 03, 2025 10:4 5am Impaired fasting glucose January 03, 2025 10:45am Insulin resistance January 03, 2025 10:4 5am Obesity, morbid, BMI 40.0-49.9 December 10:45am PCOS (polycystic ovarian syndrome) January 03, 2025 10:45am Additional Source Comments INFORMATION SOURCE (unrecogn ized section and content) DATE CREATED AUTHOR 01/05/2018 [facility] DATE CREATED AUTHOR AUTHOR'S ORGANIZ ATION 11/25/2022 [facility] DATE CREATED AUTHOR AUTHOR'S ORGANIZ ATION 09/25/2023 [facility] DATE CREATED AUTHOR AUTHOR'S ORGANIZ ATION 10/28/2023 [facility] DATE CREATED AUTHOR AUTHOR'S ORGANIZ ATION 03/10/2024 [facility] DATE CREATED AUTHOR AUTHOR'S ORGANIZ ATION [facility]/2024 [facility] DATE CREATED AUTHOR AUTHOR'S ORGANIZ ATION 01/19/2025 [facility] DATE CREATED AUTHOR AUTHOR'S ORGANIZ ATION 01/23/2025 [facility] Reason for Visit (unrecogniz ed section and content) Reason Comments Routine Visit Reason Comments Well Women Visit depression follow up Reason Comments Weight Management Reason Comments post depression Reason Comments encounter for weight management Reason Comments Obesity Reason Onset Date Comments Appointment 08/04/2023 Reason Comments Hypertension Reason Onset Date Comments Outgoing Call 08/20/2023 Reason Comments ER Follow-up Pt present today for an ER f/up visit. Pt was seen at [facility] on 01/14/2025 for pelvic pain h/o cysts. Care Teams (unrecognized sec tion and content) Information Security Architect Relationship Specialty Start Date End Date Alfonzo Guerra MD [address] [place] [address] PCP - General Family Medicine 12/22/22 Information Security Architect Relationship Specialty Start Date End Date Alfonzo Guerra MD [address] [place] [address] PCP - General Family Medicine 12/22/22 Information Security Architect Relationship Specialty Start [place] [address] [place] [id number] PCP - General Family Medicine 12/22/22 Information Security Architect Relationship Specialty Start Date End Date Alfonzo Guerra MD [address] [place] [address] PCP - General Family Medicine 12/22/22 Information Security Architect Relationship Specialty Start Date End Date Alfonzo Guerra MD [address] [place] [address] PCP - General Family Medicine 12/22/22 Information Security Architect Relationship Specialty Start [place] [address] [place] [id number] PCP - General Family Medicine 12/22/22 Information Security Architect Relationship Specialty Start Date End Date Alfonzo Guerra MD [address] [place] [id number] PCP - General Family Medicine 12/22/22 Information Security Architect Relationship Specialty Start Date End Date Alfonzo Guerra MD [address] [place] [id number] PCP - General Family Medicine 04/05/20 Information Security Architect Relationship Specialty Start Date End Date Alfonzo Guerra MD [address] [place] [id number] PCP - General Family Medicine 04/05/20 Information Security Architect Relationship Specialty Start Date End Date Alfonzo Guerra MD [address] [place] [id number] PCP - General Family Medicine 04/05/20 Information Security Architect Relationship Specialty Start Date End Date Alfonzo Guerra MD [address] [place] [id number] PCP - General Family Medicine 04/05/20 Information Security Architect Relationship Specialty Start Date End Date Alfonzo Guerra MD [address] [place] [id number] PCP - General Family Medicine 04/05/20 Information Security Architect Relationship Specialty Start Date End Date Alfonzo Guerra MD [address] [place] [id number] PCP - General Family Medicine 04/05/20 Information Security Architect Relationship Specialty Start Date End Date Alfonzo Guerra MD [address] [place] [id number] PCP - General Family Medicine 04/05/20 Information Security Architect Relationship Specialty Start Date End Date Alfonzo Guerra MD [address] [place] [address] PCP - General Family Medicine 04/05/20 Team Status: Active Member Role Status Dates Veronica Singh APRN VENDING SUPERVISOR-C Primary Care Provider Active Team Status: Inactive Member Role Status Dates Veronica Singh APRN VENDING SUPERVISOR-C Primary Care Provider, Attending Provider Active Start: October 03, 2024 End: October 03, 2024 Team Status: Inactive Member Role Status Dates Veronica Singh APRN VENDING SUPERVISOR-C Primary Care Provider, Attending Provider Active Start: November 04, 2024 End: November 04, 2024 Team Status: Inactive Member Role Status Dates Veronica Singh APRN VENDING SUPERVISOR-C Primary Care Provider, Attending Provider Active Start: December 21, 2024 End: December 21, 2024 Team Status: Inactive Member Role Status Dates Veronica Singh APRN VENDING SUPERVISOR-C Primary Care Provider Active Start: November 04, 2024 End: November 04, 2024 Veronica Singh APRN VENDING SUPERVISOR-C Attending Provider Act sara Start: November 04, 2024 End: November 04, 2024 Team Status: Inactive Member Role Status Dates Veronica Singh APRN VENDING SUPERVISOR-C Primary Care Provider Active Start: December 21, 2024 End: December 21, 2024 Veronica Singh APRN VENDING SUPERVISOR-C Attending Provider Act sara Start: December 21, 2024 End: December 21, 2024 Team Status: Inactive Member Role Status Dates Veronica Singh APRN VENDING SUPERVISOR-C Primary Care Provider Active Start: January 03, 2025 End: January 03, 2025 Veronica Singh APRN VENDING SUPERVISOR-C Attending Provider Act sara Start: January 03, 2025 End: January 03, 2025 Team Status: Active Member Role Status Dates Veronica Singh APRN VENDING SUPERVISOR-C Primary Care Provider Active Start: January 14, 2025 Migue Talavera MD Attending Provider Active St art: January 14, 2025 Team Status: Inactive Member Role Status Dates Migue Derrick Talavera MD Attending Provider Active St art: January 14, 2025 End: January 14, 2025 Information Security Architect Relationship Specialty Start Date End Date Alfonzo Guerra MD [address] [id number] PCP - General Family Medicine 12/22/22 Source Comments (unrecognize d section and content) In the event this informatio n is protected by the Federal Confidentiality of Alcohol and Drug Abuse Patient Records regulations: The Federal rules restrict any use of the information to criminally investigate or prosecute any alcohol or drug abuse patient.[facility] Goals (unrecognized section and content) Goals may [...] BE BASED ON THE PRIMARY CLINICAL RECORDS. [employer] [facility]. provides no warranty or guarantee of the accuracy or completeness of information in this document.
--- OUTSIDE RECORDS SUMMARY | 2025-04-14 01:02 | XMS_ITS | Clinical Summary ---
Author Organization [facility] Address [address] [facility] [place] [address] Care Team Providers Care Circuitry Negative Inspector Name Role Phone Alfonzo Addison MD Primary Care Provider Allergies Active Allergy Reactions Criticality Noted Date Comments Azithromycin Hives 06/30/2014 Other Reaction(s): other Ketorolac Tromethamine Hives 06/30/2014 Other Reaction(s): other, Unknown Other 03/24/2018 Sara contrast Tramadol Hives 06/30/2014 Other Reaction(s): other Medications omeprazole (PriLOSEC) [address] capsule Take 40 mg by mouth in the morning. Active metFORMIN XR (Glucophage-XR) 500 MG 24 hr tabletIndicatio ns:Insulin resistance Take 1 tablet (500 mg) by mouth in the evening. Take with meals Do not crush, chew, or split. 30 tablet 11 4 05/03/20 25 Active phentermine (Adipex-P) 37.5 MG tabletIndicatio ns:Encounter for weight management Take 1 tablet (37.5 mg) by mouth in the morning. Take before meals. 30 tablet 4 Active venlafaxine XR (Effexor XR) 75 MG 24 hr capsuleIndicati ons:Anxiety Take 1 capsule (75 mg) by mouth Daily Do not crush or chew. 30 capsule 11 4 05/30/20 25 Active labetalol (Normodyne) 200 MG tablet Take 200 mg by mouth 1 (one) time Active Drospirenone (Slynd) 4 MG tabletIndicatio ns:Pelvic pain in female,Hx of ovarian cyst,PCOS (polycystic ovarian syndrome),Insul in resistance Take 1 tablet by mouth Daily 84 tablet 3 5 Active Tirzepatide-Mason ght Management (Zepbound) 5 MG/0.5ML solution auto-injectorIn dications:Predi abetes,BMI 45.0-49.9, adult ([facility]),Encou nter for weight management Inject 0.5 mL under the skin 1 (one) time per week 2 mL 5 Active Zepbound 5 MG/0.5ML solution auto-injectorIn dications:Predi abetes,BMI 45.0-49.9, adult ([facility]),Encou nter for weight management Inject 0.5 mL under the skin 1 (one) time per week 2 mL 5 04/12/20 25 Discontinu ed(Reorder ) Active Problems Problem Noted Date Diagnosed Date Anxiety 02/12/2023 Bronchial asthma 02/12/2023 Depression 02/12/2023 Essential hypertension 02/12/2023 GERD (gastroesophageal reflux disease) 3 Insomnia 02/12/2023 Migraine headache 02/12/2023 Morbid obesity 02/12/2023 PCOS (polycystic ovarian syndrome) 02/12/2023 Seasonal allergic rhinitis 02/12/2023 Maternal care for other know n or suspected poor growth, unspecified trimester, not applicable or unspecified ([facility]) 05/28/2021 Encounters Date Type Department Care Team Description 04/12/2025 Telephone [facility] [address] [place] [address] Ely Winn MA 03/15/2025 Telephone [facility] [address] [place] [address] Ely Winn MA 02/21/2025 [place] [phone] Contreras Mock, 02/20/2025 Refill [facility] [address] [place] [place] [phone] Contreras Mock, Prediabetes; BMI 45.0-49.9, adult ([facility]); Encounter for weight management 02/14/2025 Telephone [facility] [address] [place] [place] [address] Irene Hassan LPN 01/19/2025 9:00 AM EDT Office Visit [facility] [address] [place] [address] Contreras Mock, Pelvic pain in female; Hx of ovarian cyst; PCOS (polycystic ovarian syndrome); Insulin resistance 01/19/2025 Telephone [facility] [address] [place] [place] [address] Irene Hassan LPN 01/19/2025 Bamboo flowsheet [facility] [address] [place] [address] Contreras Mock, 01/18/2025 Travel 01/14/2025 Abstract [facility] [address] [place] [phone] Contreras Mock, 01/14/2025 Abstract [facility] [address] [place] [address] Contreras Mock, 01/14/2025 Abstract [facility] [address] [place] [phone] Contreras Mock, from Last 3 Months Family History Medical History Relation Name Comments Diabetes Father Heart disease Father Hyperlipidemia Father Hypertension Father Mental illness Father Stroke Father Hypertension Maternal Grandmother Hypertension Mother Stroke Mother Cancer Paternal Grandfather Relation Name Status Comments Brother 1 brother Father Maternal Grandmother Mother Paternal Grandfather Sister 1 sister Social History Tobacco Use Types Packs/Day Years Used Date Smoking Tobacco: Never Tobacco Cessation:Counseling Given: Not Answered Alcohol Use Standard Drinks/Week Comments Not Currently 0 (1 standard drink = 0.6 oz pur e alcohol) occasional Comments No Sex and Gender Information Value Date Recorded Sex Assigned at Female 03/18/2024 2:16 PM EDT Legal Sex Female 6:47 PM EDT Gender Identity Female 03/18/2024 2:16 PM EDT Sexual Orientation Straight 03/18/2024 2: 16 PM EDT Last Filed Vital Signs Vital Sign Reading Time Taken Comments Blood Pressure 118/74 01/19/2025 9:19 AM EDT Pulse - - Temperature - - Respiratory Rate - - Oxygen Saturation - - Inhaled Oxygen Concentration - - Weight 135 kg (297 lb) 01/19/2025 9:19 AM EDT Height 170.2 cm (5' 7 ) 01/19/2025 9:19 AM EDT Body Mass Index 46.52 01/19/2025 9:19 AM EDT Plan of Treatment Upcoming Encounters Date Type Department Care Team (Late st Contact Info) Description 05/08/2025 11:00 AM EDT Office Visit [facility] [address] [place] [place] [address] Contreras Mock DO [address] [facility] [place], [place] [phone] Health Maintenance Due Date Last Done Comments Influenza Vaccine (#1) 2025 06/05/2021 Goals Goal Patient Goal Type Associated Problems Recent Progress Patient-Stated? Author Reminders Care Plan OB Reminders No Open Scheduling, Background Additional Health Concerns Active Problems Noted Date Diagnosed Date OB Reminders 05/11/2023 Insurance BCBS BS Care Teams Circuitry Negative Inspector Relationship Specialty Start Date End Date Alfonzo Addison MD [facility] [place] [address] PCP - General Family Medicine 12/22/22
--- OUTSIDE RECORDS SUMMARY | 2025-04-14 01:02 | XMS_ITS | Encounter Summary ---
Author Organization [facility] Address [address] [place] [address] Care Team Providers Care Coffee Blender Name Role Phone Alfonzo Addison MD Primary Care Provider [phone] Encounter Details Date Type Department Care Team (Late st Contact Info) Description 01/14/2025 Abstract [facility] [address] [place] [phone] Contreras Mock DO [address] [facility] [address] [place], [place] [phone] Social History Tobacco Use Types Packs/Day Years [...] Office Visit [facility] [address] [place] [address] Contreras Mock, DO [address] [facility] [place] [address] documented as of this encounter Goals Goal Patient Goal Type Associated Problems Recent Progress Patient-Stated? Author Reminders Care Plan OB Reminders No Open Scheduling, Background documented as of this encounter Visit Diagnoses Not on filedocumented in this encounter Additional Health Concerns Active Problems Noted Date Diagnosed Date OB Reminders 05/11/2023 documented as of this encounter Care Teams Coffee Blender Relationship Specialty Start Date End Date Alfonzo Addison MD [facility] [place] [address] PCP - General Family Medicine 12/22/22 documented as of this encounter
--- OUTSIDE RECORDS SUMMARY | 2025-04-14 01:02 | XMS_ITS | Encounter Summary ---
Author Organization [facility] Address [address] [place] [address] Care Team Providers Care Battery Inspector Name Role Phone Alfonzo Addison MD Primary Care Provider Encounter Details Date Type Department Care Team (Late st Contact Info) Description 04/12/2025 Telephone [facility] [address] [place] [address] [place] [address] Ely Winn MA Social History Tobacco Use Types Packs/Day Years [...] PM EDT documented as of this encounter Miscellaneous Notes * Telephone Encounter - Ely Winn MA - 04/12/2025 3:44 PM EDT Pt called in need refill on zepbound. Advised pt we would need CMP drawn for next refill. PVU documented in this encounter Plan of Treatment Upcoming Encounters Date Type Department Care Team (Late st Contact Info) Description 05/08/2025 11:00 AM EDT Office Visit [facility] [place] [facility] [address] [facility] [place] [address] Contreras Mock DO [address] [place] [address] Scheduled Orders Name Type Priority Associated Diagnoses Orde r Schedule Comprehensive metabolic panel Lab Routine Prediabetes BMI 45.0-49.9, adult ([facility]) Encounter for weight management Expected: 04/12/2025 (Approximate), Expires: 04/12/2026 documented as of this encounter Goals Goal Patient Goal Type Associated Problems Recent Progress Patient-Stated? Author Reminders Care Plan OB Reminders No Open Scheduling, Background documented as of this encounter Visit Diagnoses Diagnosis Prediabetes Other abnormal glucose BMI 45.0-49.9, adult ([facility]) Encounter for weight management documented in this encounter Additional Health Concerns Active Problems Noted Date Diagnosed Date OB Reminders 05/11/2023 documented as of this encounter Care Teams Battery Inspector Relationship Specialty Start Date End Date Alfonzo Addison MD [address] [place] [address] PCP - General Family Medicine 12/22/22 documented as of this encounter
--- OUTSIDE RECORDS SUMMARY | 2025-04-14 01:02 | XMS_ITS | Clinical Summary ---
Author Organization [facility] Address [address] [place] [address] Care Team Providers Care Bow Maker Name Role Phone Unavailable Primary Care Provider Unavailabl e Social History Tobacco Use Types Packs/Day Years Used Date Smoking Tobacco: Never Assessed PHQ-2 Answer Date Recorded PHQ-2 score 0 07/29/2024 Area Deprivation Index Answer Date Chung rded National Score (1-100), lower number is lower ri sk 91 08/05/2024 State Score (1-10), lower number is lower risk 9 08/05/2024 Data from: https://www.neighborhoodatlas.medicine.[facility].edu/. Last address used for calculation [address] 08/05/2024 Comments Unknown Sex and Gender Information Value Date Recorded Sex Assigned at Female 07/29/2024 10:01 PM EST Legal Sex Female 9:57 AM EDT Gender Identity Female 07/29/2024 10:01 PM EST Sexual Orientation Straight 07/29/2024 10 :01 PM EST Plan of Treatment Health Maintenance Due Date Last Done Comments Anxiety Screening 2014 Depression Screening 2014 HIV Screening 2014 Hepatitis C Screening 2014 Cervical Cancer Screening 2017 HPV Vaccine (1 - 3-dose SCDM series) 09/22/2023 Influenza Vaccine (#1) 2025 06/05/2021 DTaP,Tdap,Td Vaccine (7 - Td or Tdap) 06/05/2031 06/05/2021, 09/23/2018, 10/28/2001, Additional history exists Hepatitis B Vaccine Completed 06/02/1997, 1996, 1996 Goals Goal Patient Goal Type Associated Problems Recent Progress Patient-Stated? Author Bariatric Surgery Authorization Heel Caser Care Plan Bariatric Surgery Authorization Heel Caser No Christina Grimm Additional Health Concerns Active Problems Noted Date Diagnosed Date Bariatric Surgery Authorization Heel Caser 0 11/30/2024 Insurance [employer] CARD PPO OOS
--- OUTSIDE RECORDS SUMMARY | 2025-04-14 01:02 | XMS_ITS | Encounter Summary ---
Author Organization [facility] Address [address] [facility] [place] [address] Care Team Providers Care Auxiliary Power Equipment Operator Name Role Phone Alfonzo Addison MD Primary Care Provider [phone] Encounter Details Date Type Department Care Team (Late st Contact Info) Description 12/19/2022 Abstract [facility] [place] [facility] [address] [facility] [place] [phone] Olga Escobar PA [address] [facility] [address] [place], [id number] Social History Tobacco Use Types Packs/Day Years [...] suspected to have Coronavirus/COVID-19? No / Unsure 12/21/2022 11:05 AM EDT documented as of this encounter Plan of Treatment Upcoming Encounters Date Type Department Care Team (Late st Contact Info) Description 05/08/2025 11:00 AM EDT Office Visit [facility] [address] [facility] [place] [phone] Contreras Mock DO [address] [facility] [place] [address] documented as of this encounter Visit Diagnoses Not on filedocumented in this encounter Care Teams Auxiliary Power Equipment Operator Relationship Specialty Start Date End Date Alfonzo Addison MD [address] [place] [address] PCP - General Family Medicine 12/22/22 documented as of this encounter
--- OUTSIDE RECORDS SUMMARY | 2025-04-14 01:02 | XMS_ITS | Encounter Summary ---
Author Organization [facility] Address [address] [place] [address] Care Team Providers Care Starter Cup Powder Mixer Name Role Phone Alfonzo Addison MD Primary Care Provider Encounter Details Date Type Department Care Team (Late st Contact Info) Description 01/14/2025 Abstract [facility] [address] [place] [phone] Contreras Mock DO [address] [facility] [address] [place], [place] [address] Social History Tobacco Use Types Packs/Day Years [...] Office Visit [facility] [address] [place] [address] Contreras Mock, DO [address] [facility] [place] [address] documented as of this encounter Goals Goal Patient Goal Type Associated Problems Recent Progress Patient-Stated? Author Reminders Care Plan OB Reminders No Open Scheduling, Background documented as of this encounter Visit Diagnoses Not on filedocumented in this encounter Additional Health Concerns Active Problems Noted Date Diagnosed Date OB Reminders 05/11/2023 documented as of this encounter Care Teams Starter Cup Powder Mixer Relationship Specialty Start Date End Date Alfonzo Addison MD [facility] [place] [address] PCP - General Family Medicine 12/22/22 documented as of this encounter
--- OUTSIDE RECORDS SUMMARY | 2025-04-14 01:02 | XMS_ITS | Encounter Summary ---
Author Organization [facility] Address [address] [place] [address] Care Team Providers Care Woolen Suiting Shrinker Name Role Phone Alfonzo Addison MD Primary Care Provider Encounter Details Date Type Department Care Team (Late st Contact Info) Description 05/07/2023 Clinisync Result Encounter [facility] External Department Unsolicited Contreras Mock, DO [address] [facility] [address] [place] [phone] Social History Tobacco Use Types Packs/Day Years [...] suspected to have Coronavirus/COVID-19? No / Unsure 04/30/2023 2:10 PM EDT documented as of this encounter Plan of Treatment Upcoming Encounters Date Type Department Care Team (Late st Contact Info) Description 05/08/2025 11:00 AM EDT Office Visit [facility] [place] [facility] [address] [place] [phone] Contreras Mock DO [address] [facility] [place] [address] documented as of this encounter Procedures Procedure Name Priority Date/Time Associated Diagnosis Comments US OB TRANSVAGINAL 05/07/2023 10 :35 PM EDT documented in this encounter Results * US OB TRANSVAGINAL (05/07/2023 10:35 PM EDT) Anatomical Region Laterality Modality Other 05/07/2023 10:3 5 PM EDT Narrative 05/07/2023 10:35 PM EDT [address] [address] Ultrasound Report Signed Patient: Sisi Chakraborty MR#: [id number] : 1995 Acct:[id number] Age/Sex: 27 / F ADM Date: 05/07/23 Loc: US Attending Dr: Contreras Mock D.O. Ordering Physician: Contreras Mock D.O. Date of Service: 05/07/23 Procedure(s): US OB transvaginal Accession Number(s): [id number] cc: ALFONZO ADDISON ; Contreras Mock D.O. The [address] [address] Patient Name: SISI CHAKRABORTY MRN: [id number] date: 1995 Sex: F Assigned Patient Location: US Current Patient Location: US Accession/Order Number: [id number] Exam Date: 05/07/2023 14:40 Report Date: 05/07/2023 22:35 At the request of: CONTRERAS MOCK Procedure: US OB transvaginal EXAMINATION: US OB transvaginal HISTORY: MISSED MENSES COMPARISON: No relevant comparison available. FINDINGS: GESTATIONAL SAC: Present and normal appearing. YOLK SAC: Present and normal appearing. POLE: Present and normal appearing. CARDIAC: Present. UTERUS: Normal size and appearance. OVARIES: Right: Not seen. Left: Normal. CERVIX: 3.7 cm in length and closed. CUL-DE-SAC: Normal. OTHER: None. AGE BY LMP: 8 weeks 0 days MARGARITO BY LMP: 12/17/2023 AGE BY US CRL: 7 weeks 2 days MARGARITO BY US CRL: 12/22/2023 US/US OB transvaginal IMPRESSION: 1. Single live intrauterine . Electronically authenticated by: PERCY MURO Date: 05/07/2023 22:35 Dictated By: Percy Muro M.D. Signed By: 05/07/232236 DD/ 34 TD/TT: Truck Driver Helper: Procedure Note Radiology, Radiologist, MD - 05/07/2023 [place] [address] Ultrasound Report Signed Patient: Sisi Chakraborty AMR#: [id number] : 1995Acct:[id number] Age/Sex: Date: 05/07/23 Loc: US Attending Dr: Contreras Mock D.O. Ordering Physician: Contreras Mock D.O. Date of Service: 05/07/23 Procedure(s): US OB transvaginal Accession Number(s): [id number] cc: ALFONZO ADDISON ; Contreras Mock D.O. The [place] [address] Patient Name: SISI CHAKRABORTY MRN: [id number] date: 1995 Sex: F Assigned Patient Location: US Current Patient Location: US Accession/Order Number: [id number] Exam Date: 05/07/2023 14:40 Report Date: 05/07/2023 22:35 At the request of: CONTRERAS MOCK Procedure: US OB transvaginal EXAMINATION: US OB transvaginal HISTORY: MISSED MENSES COMPARISON: No relevant comparison available. FINDINGS: GESTATIONAL SAC: Present and normal appearing. YOLK SAC: Present and normal appearing. POLE: Present and normal appearing. CARDIAC: Present. UTERUS: Normal size and appearance. OVARIES: Right: Not seen. Left: Normal. CERVIX: 3.7 cm in length and closed. CUL-DE-SAC: Normal. OTHER: None. AGE BY LMP: 8 weeks 0 days MARGARITO BY LMP: 12/17/2023 AGE BY US CRL: 7 weeks 2 days MARGARITO BY US CRL: 12/22/2023 US/US OB transvaginal IMPRESSION: 1. Single live intrauterine . Electronically authenticated by: PERCY MURO Date: 05/07/2023 22:35 Dictated By: Percy Muro M.D. Signed By:05/07/232236 DD/ 34 TD/TT: Truck Driver Helper: us Contreras Emili DO [facility] Final Result documented in this encounter Visit Diagnoses Not on filedocumented in this encounter Care Teams Woolen Suiting Shrinker Relationship Specialty Start Date End Date Alfonzo Addison MD [address] [place] [address] PCP - General Family Medicine 12/22/22 documented as of this encounter
--- OUTSIDE RECORDS SUMMARY | 2025-04-14 01:02 | XMS_ITS | Encounter Summary ---
Author Organization [id number] [address] [place] [address] Care Team Providers Care Recreation Clerk Name Role Phone Alfonzo Addison MD Primary Care Provider Encounter Details Date Type Department Care Team (Late st Contact Info) Description 03/21/2020 Documentation [facility] [address] [place] [phone] Cris Cadena LPN Social History Tobacco Use Types Packs/Day Years Used Date Smoking Tobacco: Never Smokeless Tobacco: Never Alcohol Use Standard Drinks/Week Comments No 0 (1 standard drink = 0.6 oz pur e alcohol) AUDIT-C Answer Date Recorded Frequency of Alcohol Consumption Never 03/21/2020 Average Number of Drinks Not on file 020 Frequency of Binge Drinking Not on file 03/2020 PHQ-2 Answer Date Recorded PHQ-2 Score 0 03/21/2020 Childcare Answer Date Recorded Childcare Unknown 12/22/2018 Employment Answer Date Recorded Employment Unknown 12/22/2018 Comments Unknown Sex and Gender Information Value Date Recorded Sex Assigned at Female 04/22/2021 10:12 AM EDT Legal Sex Female 12:07 PM EDT Gender Identity Female 04/22/2021 10:12 AM EDT Sexual Orientation Straight 04/22/2021 10 :12 AM EDT COVID-19 Exposure Response Date Recorded In the last month, have you been in contact with someone who was confirmed or suspected to have Coronavirus / COVID-19? No / Unsure 03/21/2020 10:01 AM EDT documented as of this encounter Plan of Treatment Not on file documented as of this encounter Visit Diagnoses Not on filedocumented in this encounter Additional Health Concerns Infection Onset Date Last Indicated Resolved Time COVID-19 Rule-Out 09/27/2023 09/27/2023 09/27/2023 7:07 PM EDT COVID-19 Positive 09/27/2023 09/27/2023 10/18/2023 11:12 PM EDT Assessment Noted Time PHQ-9 Depression Total Score: 0 03/21/20 10:11 AM EDT documented as of this encounter Care Teams Recreation Clerk Relationship Specialty Start Date End Date Alfonzo Addison MD [address] [place], [place] [phone] PCP - General Family Medicine 04/05/20 documented as of this encounter
--- NOTE | 2025-04-14 01:07 | ED.GENADUL1 ---
HPI HPI - General Adult General Chief complaint: Extremity Injury, Lower Stated complaint: FALL, PAIN IN L KNEE Time Seen by Provider: 04/14/25 01:01 Source: patient Mode of arrival: Wheelchair Limitations: physical limitation Limitations comment: left knee pain due to fall History of Present Illness HPI narrative: 29-year-old female presented for pain in her left knee and her left foot. Tonight she hit her foot on a piece of furniture and hurt her foot and the knee. She points to the anterior knee to indicate where the knee is hurting and the dorsum of the foot to indicate where the foot is hurting. She did not hit her head. She had previous surgeries on her left knee because of multiple ligament tears at age 14. Related Data Home Medications ?Medication ?Instructions ?Recorded ?Confirmed albuterol sulfate 90 mcg/actuation 1 inh inhalation Q6H PRN shortness 07/02/23 04/14/25 aerosol inhaler of breath or wheezing omeprazole 20 mg capsule,delayed 40 mg PO DAILY 06/05/24 04/14/25 release venlafaxine 75 mg tablet 75 mg PO DAILY 06/05/24 04/14/25 metformin 500 mg tablet 500 mg PO DAILY 08/15/24 04/14/25 labetalol 200 mg tablet mg 04/14/25 tirzepatide (weight loss) 5 mg/0.5 mg subcut 04/14/25 mL subcutaneous pen injector (Zepbound) Previous Rx's ?Medication ?Instructions ?Recorded ibuprofen 800 mg tablet 800 mg PO Q8H PRN pain #20 tabs 04/14/25 Allergies Allergy/AdvReac Type Severity Reaction Status Date / Time Iodinated Contrast Media Allergy Unknown Unknown Verified 04/14/25 01:07 azithromycin (From Zithromax) Allergy Hives Verified 04/14/25 01:07 ketorolac (From Toradol) Allergy Hives Verified 04/14/25 01:07 tramadol (From Ultram) Allergy Hives Verified 04/14/25 01:07 walnuts Allergy Severe Anaphylaxis Uncoded 04/14/25 01:07 Opioid HPI Opioid Management Most Recent Opioid Data: Last Pain Scale 7 Today, 01:13 Review of Systems ROS Narrative A ten point review of systems is negative except as noted above. PFSH PFSH Social History Little interest or pleasure in doing things: not at all Feeling down, depressed, or hopeless: not at all Exam Narrative Exam Narrative: Nurses note and vital signs reviewed and patient is not hypoxic. General:The patient appears well and in no apparent distress.Patient is resting comfortably on cart. Skin:Warm, dry, no pallor noted.There is no rash noted. Head:Normocephalic, atraumatic Eye: Normal conjunctiva, no drainage Ears, Nose, Mouth, and Throat: oral mucosa is moist. Nares patent. Cardiovascular:Regular Rate and Rhythm Respiratory:Patient is in no distress, no accessory muscle use Back:non-tender GI: Soft and nontender Musculoskeletal: Old healed surgical scar present on the anterior surface of the left knee. There is no break in the skin or abrasions. She has tenderness anteriorly. She has no tenderness in the left ankle but does have tenderness on the dorsum of her foot where the skin is intact. Neurological:A&O, normal speech Psychiatric:Cooperative Constitutional Vital Signs, click to edit/add: Last Vital Signs Temp 98.4 F 04/14/25 01:01 Pulse 79 04/14/25 01:01 Resp 18 04/14/25 01:01 BP 160/100 H 04/14/25 01:01 Pulse Ox 98 04/14/25 01:01 O2 Del Method Room Air 04/14/25 01:01 Course Vital Signs Vital signs: Vital Signs Temperature 98.4 F 04/14/25 01:01 Pulse Rate 79 04/14/25 01:01 Respiratory Rate 18 04/14/25 01:01 Blood Pressure 160/100 H 04/14/25 01:01 Pulse Oximetry 98 04/14/25 01:01 Oxygen Delivery Method Room Air 04/14/25 01:01 Temperature 98.4 F 04/14/25 01:01 Pulse Rate 79 04/14/25 01:01 Respiratory Rate 18 04/14/25 01:01 Blood Pressure 160/100 H 04/14/25 01:01 Pulse Oximetry 98 04/14/25 01:01 Oxygen Delivery Method Room Air 04/14/25 01:01 Medical Decision Making MDM Narrative Medical decision making narrative: X-rays of the knee and foot on my interpretation showed no acute findings. She is referred to orthopedics. Salvador wrap applied, application checked by me and found to be appropriate, she is neurovascular intact. She was offered crutches but does not feel that she needs them. Treatment diagnosis and follow-up were discussed with the patient. Differential Diagnosis Differential Diagnosis: Sprain, fracture, contusion Imaging Data Knee, foot x-rays, left: My impression: No acute findings Discharge Plan Discharge Chief Complaint: Extremity Injury, Lower Clinical Impression: Contusion of foot, left, Left knee sprain Patient Disposition: Home, Self-Care Time of Disposition Decision: 01:36 Condition: Good Mode of Transportation: Private Vehicle Prescriptions / Home Meds: New ibuprofen 800 mg tablet 800 mg PO Q8H PRN (Reason: pain) Qty: 20 0RF No Action Zepbound 5 mg/0.5 mL pen injector SUBCUT labetalol 200 mg tablet albuterol sulfate 90 mcg/actuation HFA aerosol inhaler 1 inh inhalation Q6H PRN (Reason: shortness of breath or wheezing) venlafaxine 75 mg tablet 75 mg PO DAILY omeprazole 20 mg capsule,delayed release(DR/EC) 40 mg PO DAILY metformin 500 mg tablet 500 mg PO DAILY Print Language: Georgian Instructions: Knee Sprain (ED), Foot Contusion (ED) Referrals: YUE RODRIGUEZ [Primary Care Provider, Unknown] - 1 week EL JACKSON [Referring] - 1 week
--- NOTE | 2025-04-14 01:14 | XR_ITS ---
The [address] [address] Patient Name: BRAULIO CHAKRABORTY MRN: [id number] date: 1995 Sex: F Assigned Patient Location: ER Current Patient Location: Accession/Order Number: [id number] Exam Date: 04/14/2025 01:15 Report Date: 04/14/2025 09:00 At the request of: CK RODRIGUEZ MD Procedure: XR knee LT 3V XR knee LT 3V 04/14/2025 1:25 AM SIGNS AND SYMPTOMS: Fall, left knee pain PROTOCOL: 4 views of the left knee COMPARISON: None FINDINGS: There is mild narrowing of the medial weightbearing joint space. There is no evidence of acute displaced fracture. The patellofemoral joint is preserved. There is cortical irregularity along the anterior tibial tuberosity with accompanying prepatellar soft tissue swelling. There is evidence of previous [place]-Schlatter pathology with remote hardware tracks. XR/XR knee LT 3V IMPRESSION: No acute displaced fracture. Postsurgical changes are noted in the anterior tibial tuberosity. Mild prepatellar soft tissue swelling is noted. Impression dictated by: Brad Houston M.D. 04/14/2025 9:00 AM Dictation Location: [place] [address] Electronically authenticated by: [id number] Y Date: 04/14/2025 09:00
--- NOTE | 2025-04-14 01:14 | XR_ITS ---
[address] [address] Patient Name: BRAULIO CHAKRABORTY MRN: [id number] date: 1995 Sex: F Assigned Patient Location: ER Current Patient Location: Accession/Order Number: [id number] Exam Date: 04/14/2025 01:15 Report Date: 04/14/2025 08:58 At the request of: CK RODRIGUEZ MD Procedure: XR foot LT min 3V XR foot LT min 3V 04/14/2025 1:26 AM SIGNS AND SYMPTOMS: Fall with left foot and ankle pain PROTOCOL: 3 views of the left foot COMPARISON: None FINDINGS: The bones are in anatomic alignment. The joint spaces are preserved. There is no fracture or dislocation. There is mild diffuse soft tissue swelling. XR/XR foot LT min 3V IMPRESSION: No acute bony injury. There is mild diffuse soft tissue swelling. Impression dictated by: Brad Houston M.D. 04/14/2025 8:58 AM Dictation Location: [place] [address] Electronically authenticated by: [id number] Y Date: 04/14/2025 08:58
== END 2025-04-14 01:46 | disposition home or self-care (01) ==
PROVIDERS: Emergency Provider Emergency Medicine; PCP Nurse Practitioner Family
DX: S83.92XA Sprain of unspecified site of left knee, initial encounter (principal); S90.32XA Contusion of left foot, initial encounter; W01.0XXA Fall on same level from slipping, tripping and stumbling without subsequent striking against object, initial encounter
CPT/HCPCS: 73562; 73630; 99284

== ENCOUNTER 2025-05-05 11:21 | Outpatient (OUT) | payer BC, SELFPAY ==
--- OUTSIDE RECORDS SUMMARY | 2025-05-05 11:26 | XMS_ITS | Clinical Summary ---
Author Organization [facility] Address [address] [place] [id number] Care Team Providers Care Lastex Operator Name Role Phone Unavailable Primary Care Provider Unavailabl e Social History Tobacco UseTypesPacks/DayYears UsedDateSmoking Tobacco: Never AssessedPHQ-2 AnswerDate RecordedPHQ-2 wwrpp995rea Deprivation IndexAnswerDate RecordedNational Score (1-100), lower number is lower vpvd000908/05/2024State Score (1-10), lower number is lower gcqw682Data from: https://www.neighborhoodatlas.medicine.[facility].edu/. Last address used for cswnxkhyhz[address] [facility]08/05/2024CommentsUnknownSex and Gender InformationValueDate RecordedSex Assigned at HuguzMcluro17/17/2025 10:01 PM EST Legal BsaMartfv09/11/2024 9:57 AM EDTGender KgmbmdyvFrvtvw13/17/2025 10:01 PM ESTSexual ZuqtlrqmetxLvmnxosc67/17/2025 10:01 PM EST Plan of Treatment Health MaintenanceDue DateLast DoneCommentsAnxiety Sffaupius17/12/2015Depression Uubscotwj17/12/2015HIV Vuqkkhtxs65/12/2015Hepatitis C Cvdtepfkc83/12/2015 Cervical Cancer Ooatzxqmi92/12/2018HPV Vaccine (1 - 3-dose SCDM series) 4Covid-19 Vaccine (3 - 2025-26 season)2021, 07/01/2021 Influenza Vaccine (#1)511DTaP,Tdap,Td Vaccine (7 - Td or Tdap) /, 09/23/2018, 10/28/2001, Additional history existsHepatitis B HhwuobmUrhwxvgie20/21/1997, 1996, 1995 Goals GoalPatient Goal TypeAssociated ProblemsRecent ProgressPatient-Stated?Author Bariatric Surgery Authorization Furniture Sales Associate Care PlanBariatric Surgery Authorization Care CompanionChristina Leary Additional Health Concerns Active ProblemsNoted DateDiagnosed DateBariatric Surgery Authorization Care Gcljszccx43/21/2025 Insurance
--- OUTSIDE RECORDS SUMMARY | 2025-05-05 11:26 | XMS_ITS | Clinical Summary ---
Author Organization [employer] tem Address [id number] [address] [place] [address] Care Team Providers Care Waste Disposal Attendant Name Role Phone Alfonzo Addison MD Primary Care Provider Allergies Active AllergyReactionsCriticalityNoted PkveCpoghdxuLknnxqjnquboNcudx53/19/2014 Dye03/24/2018 Sara contrast MqskppzemUqdiv86/19/7624OshfozvqAclgw29/19/2014 Medications MedicationSigDispense QuantityRefillsLast FilledStart DateEnd DateStatus metoclopramide (REGLAN) 5 mg tablet Take 1 tablet (5 mg total) by mouth in the morning and 1 tablet (5 mg total) at noon and 1 tablet (5 mg total) in the evening and 1 tablet (5 mg total) before bedtime.Active ondansetron ODT (ZOFRAN ODT) 4 mg disintegrating tablet Dissolve 1 tablet (4 mg total) on tongue 3 (three) times a day as needed for nausea for up to 3 doses. 3 tablet 05/29/2023ctive escitalopram (LEXAPRO) 5 mg tablet Take 1 tablet (5 mg total) by mouth in the morning.Active levothyroxine (SYNTHROID, LEVOTHROID) 75 MCG tablet Take 1 tablet (75 mcg total) by mouth in the morning. 60 tablet ctive pantoprazole (PROTONIX) 40 mg EC tablet Take 1 tablet (40 mg total) by mouth in the morning. 60 tablet ctive labetaloL (NORMODYNE) 300 mg tablet Take 2 tablets (600 mg total) by mouth every 8 (eight) hours. 60 tablet ctive acetaminophen (TYLENOL EXTRA STRENGTH) 500 mg tablet Take 2 tablets (1,000 mg total) by mouth every 8 (eight) hours. 30 tablet 10/12/2023ctive ibuprofen (MOTRIN) 800 mg tablet Take 1 tablet (800 mg total) by mouth every 8 (eight) hours as needed for headaches, fever or pain. 30 tablet 10/12/2023ctive NIFEdipine XL (PROCARDIA XL) 30 mg 24 hr tablet Take 1 tablet (30 mg total) by mouth in the morning. 30 tablet ctive Active Problems ProblemNoted DateDiagnosed DatePre-eclampsia, severe, with rewsvvhk50/17/2024Hx of preeclampsia, prior , currently , second qhipnfnmv46/23/2024 IUGR (intrauterine growth restriction) affecting care of mother, second trimester, not applicable or unspecified fetus08/04/2023History of delivery, currently evbamlra24/08/2023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 vywuixxun07/08/2023Maternal care for other known or suspected poor growth, unspecified trimester, not applicableor useqseahfmc47/17/2021regnancy affected by growth ojjwgdawapj57/16/2021isease of thyroid gland Overview (03/01/2021): HYPERTHYROID Essential hypertension Immunizations ImmunizationAdministration DatesNext DueInfluenza, Injectable, quadrivalent (PF) 06/05/2021Tdap108/05/2020 Family History Medical HistoryRelationNameCommentsBlood ClotsFatherDiabetesFatherHeart disease FatherHypertensionFatherStrokeFatherCancerMaternal GrandfatherHypertension Maternal GrandfatherLeukemiaMaternal GrandfatherAsthmaMaternal Grandmother HypertensionMaternal GrandmotherHypertensionMotherStrokeMotherCancerPaternal GrandmotherRelationNameStatusCommentsFatherMaternal GrandfatherMaternal GrandmotherMotherPaternal Grandmother Social History Tobacco UseTypesPacks/DayYears UsedDateSmoking Tobacco: NeverSmokeless Tobacco: NeverAlcohol UseStandard Drinks/WeekCommentsNot Currently0 (1 standard drink = 0.6 oz pure alcohol)AUDIT-CAnswerDate RecordedFrequency of Alcohol Consumption Never03/21/2020Average Number of DrinksNot on file03/21/2020Frequency of Binge DrinkingNot on file03/21/2020PHQ-2AnswerDate RecordedTotal Fogpe752 ChildcareAnswerDate RkzdpdxfPrgmecdwgIfbzyuo42/12/2019EmploymentAnswerDate JjcnvgljRabidsbvyyCmqtmzo08/12/2019Hunger ScreeningAnswerDate RecordedWithin the past 12 months we worried whether our food would run out before we got money to buy more.Never True08/04/2023Within the past 12 months the food we bought just didn't last and we didn't have money to get more.Never True4Purpose - LifeAnswerDate RecordedPurpose and direction in cnbkOvalppk92/11/2021 CommentsNoSex and Gender InformationValueDate RecordedSex Assigned at Rqmttn0104/22/2021 10:12 AM EDTLegal LyhFosudt22/06/2015 12:07 PM EDTGender AngekuggEpbeav84/11/2021 10:12 AM EDTSexual CiyacgcesbkMywdcyqu67/11/2021 10:12 AM EDT Last Filed Vital Signs Vital SignReadingTime TakenCommentsBlood Bvvwxyft754/8104 12:00 PM EDT Lfkhs0885 12:00 PM PRBNsbfhuzwdse08.7 ??C (98.1 ??F)10/20/2023 10:49 AM EDTRespiratory Mibi701610/20/2023 10:49 AM EDTOxygen Thatsobary89%10/10/2023 11:00 PM EDTInhaled Oxygen Concentration--Tknmvv856.6 kg (279 lb 1.6 oz)10/12/2023 5:17 AM ORYWclgtz092.2 cm (5' 7 )09/27/2023 4:29 PM EDTBody Mass Index43.71 09/27/2023 4:29 PM EDT Plan of Treatment Health MaintenanceDue DateLast DoneCommentsDepression Zxaocbqyy88/12/2009dult BMI Dfnqvmeny64/01/687946/07/2023Tobacco Dhceenszn67/OVID-19 Vaccine ( season)/04/2022, 07/01/2021Influenza Vaccine /, 06/05/2021, 05/22/2009Pap Smear DTaP,Tdap and Td Vaccines (7 - Td or Tdap)/, 09/23/2018, 10/28/2001, Additional history exists Medical Devices Not on file Insurance Advance Directives * Full Code (Latest Code Status on File) Date ActivatedDate InactivatedComments09/27/2023 5:00 PM10/12/2023 7:19 PM * Full Code Date ActivatedDate XvctkmufiziJfzvczki59/16/2021 11:19 AM06/05/2021 10:50 PM Care Teams Team MemberRelationshipSpecialtyStart DateEnd Date Alfonzo Addison MD [facility] [place] [id number] PCP - GeneralFamily Medicine04/05/20
--- OUTSIDE RECORDS SUMMARY | 2025-05-05 11:26 | XMS_ITS | Encounter Summary ---
Author Organization [facility] Address [address] [place] [address] Care Team Providers Care Coordinator Of Online Programs Name Role Phone Alfonzo Addison MD Primary Care Provider Encounter Details DateTypeDepartmentCare Team (Latest Contact Info)Roxrkfzkmmy44/15/2025Telephone [facility] [address] [place] [address] Contreras Mock DO [address] [place], [place] [phone] Social History Tobacco UseTypesPacks/DayYears UsedDateSmoking Tobacco: NeverAlcohol UseStandard Drinks/WeekCommentsNot Currently0 (1 standard drink = 0.6 oz pure alcohol) occasionalCommentsNoSex and Gender InformationValueDate RecordedSex Assigned at VpqdxIngqkn16/06/2024 2:16 PM EDTLegal PsuKfqdcl33/15/2023 6:47 PM EDTGender XtahuumkFdbbqh63/06/2024 2:16 PM EDTSexual OrientationStraight 03/18/2024 2:16 PM EDTdocumented as of this encounter Miscellaneous Notes * Telephone Encounter - Leslie William LPN - 04/26/2025 11:56 AM EDT I usually speak with Irene about I am on Zepbound for weight management. And I was just dealing with some side effects and I did not know if I could just talk to someone if there is anything to do about it for if I just have to continue to suck it up. Patient call was returned and she states last 3-4 weeks on Zepbound and she does have nausea lasting 24 hours. Patient states vomiting and not wanting to eat the day she is taking. Patient states that she did have a zofran and did give some relief. Patient advised script would be sent if this does continue we can always decrease the dose and she can continue on that if she does better. PVU documented in this encounter Plan of Treatment DateTypeDepartmentCare Team (Latest Contact Info)Fxxnxovczpn26/27/2025 11:00 AM EDTOffice Visit [facility] [address] [place] [phone] Contreras Mock DO [address] [place] [address] documented as of this encounter Goals GoalPatient Goal TypeAssociated ProblemsRecent ProgressPatient-Stated?Author Reminders Care PlanOB RemindersNoOpen Scheduling, Backgrounddocumented as of this encounter Visit Diagnoses Diagnosis Nausea Nausea alone documented in this encounter Additional Health Concerns Active ProblemsNoted DateDiagnosed DateOB Grallzirt73/30/2023 documented as of this encounter Care Teams Team MemberRelationshipSpecialtyStart DateEnd Date Alfonzo Addison MD [address] [place] [id number] PCP - GeneralFamily Medicine12/22/22documented as of this encounter
--- OUTSIDE RECORDS SUMMARY | 2025-05-05 11:27 | XMS_ITS | Clinical Summary ---
Author Organization [facility] Address [address] [facility] [place] [address] Care Team Providers Care Comic Illustrator Name Role Phone Alfonzo Addison MD Primary Care Provider Allergies Active AllergyReactionsCriticalityNoted FbxvXzpumkubMybqhthcugcvEextl99/19/2014 Other Reaction(s): other Ketorolac XwvabepdsbarEuizp59/19/2014 Other Reaction(s): other, Unknown Other03/24/2018 Sara contrast QxptgdslPstjg22/19/2014 Other Reaction(s): other Medications MedicationSigDispense QuantityRefillsLast FilledStart DateEnd DateStatus omeprazole (PriLOSEC) [address] capsule Take 40 mg by mouth in the morning.Active metFORMIN XR (Glucophage-XR) 500 MG 24 hr tablet Indications:Insulin resistanceTake 1 tablet (500 mg) by mouth in the evening. Take with meals Do not crush, chew, or split. 30 tablet 4Active phentermine (Adipex-P) 37.5 MG tablet Indications:Encounter for weight managementTake 1 tablet (37.5 mg) by mouth in the morning. Take before meals. 30 tablet 4Active venlafaxine XR (Effexor XR) 75 MG 24 hr capsule Indications:AnxietyTake 1 capsule (75 mg) by mouth Daily Do not crush or chew. 30 capsule 5Active labetalol (Normodyne) 200 MG tablet Take 200 mg by mouth 1 (one) timeActive Drospirenone (Slynd) 4 MG tablet Indications:Pelvic pain in female,Hx of ovarian cyst,PCOS (polycystic ovarian syndrome),Insulin resistanceTake 1 tablet by mouth Daily 84 tablet 307/5Active Tirzepatide-Weight Management (Zepbound) 5 MG/0.5ML solution auto-injector Indications:Prediabetes,BMI 45.0-49.9, adult ([place]),Encounter for weight managementInject 0.5 mL under the skin 1 (one) time per week 2 mL 5Active ondansetron ODT (Zofran-ODT) 4 MG disintegrating tablet Indications:NauseaTake 1 tablet (4 mg) by mouth every 6 (six) hours if needed for nausea or vomiting 30 tablet /5Active Zepbound 5 MG/0.5ML solution auto-injector Indications:Prediabetes,BMI 45.0-49.9, adult ([place]),Encounter for weight managementInject 0.5 mL under the skin 1 (one) time per week 2 mL Discontinued(Reorder) Active Problems ProblemNoted DateDiagnosed OyhdOisassl74/03/2023ronchial caaayl8802/12/2023 Idyvcfklsy40/03/2023Essential yurrtvlofuch94/03/2023ERD (gastroesophageal reflux disease)02/12/20239215Upgjmwif12/03/2023Migraine hpseoeix12/03/2023Morbid ogyiocb3302/12/2023COS (polycystic ovarian syndrome)02/12/2023Seasonal allergic ghhphelb63/03/2023Maternal care for other known or suspected poor growth, unspecified trimester, not applicableor unspecified ([facility])05/28/2021 Encounters DateTypeDepartmentCare PfbpGpggppdetey68/15/2025Telephone [facility] [address] [place] [phone] Contreras Mock DO 04/12/2025Telephone [facility] [address] [place] [address] Ely Winn MA 03/15/2025Telephone [facility] [address] [place] [address] Ely Winn MA 02/21/2025bstract [facility] [address] [place] [address] Contreras Mock DO 02/20/2025Refill [facility] [address] [place] [address] Contreras Mock, Prediabetes; BMI 45.0-49.9, adult ([facility]); Encounter for weight ipcnojngyb71/05/2025Telephone [facility] [address] [place] [address] Irene Hassan LPN from Last 3 Months Family History Medical HistoryRelationNameCommentsDiabetesFatherHeart diseaseFather HyperlipidemiaFatherHypertensionFatherMental illnessFatherStrokeFather HypertensionMaternal GrandmotherHypertensionMotherStrokeMotherCancerPaternal GrandfatherRelationNameStatusCommentsBrother1 brotherFatherMaternal Grandmother MotherPaternal GrandfatherSister1 sister Social History Tobacco UseTypesPacks/DayYears UsedDateSmoking Tobacco: Never Tobacco Cessation:Counseling Given: Not Answered Alcohol UseStandard Drinks/WeekCommentsNot Currently0 (1 standard drink = 0.6 oz pure alcohol)occasionalCommentsNoSex and Gender InformationValueDate RecordedSex Assigned at DmhsiByrxof94/06/2024 2:16 PM EDTLegal SexFemale 09/24/2022 6:47 PM EDTGender ApibfogsEtszhc08/06/2024 2:16 PM EDTSexual FdhdctidjgxWjxgnhsp11/06/2024 2:16 PM EDT Last Filed Vital Signs Vital SignReadingTime TakenCommentsBlood Cttomxvo857/7407/04/2025 9:19 AM EDT Pulse--Temperature--Respiratory Rate--Oxygen Saturation--Inhaled Oxygen Concentration--Epsjyc239 kg (297 lb)01/19/2025 9:19 AM QLICgpkjg305.2 cm (5' 7 ) 01/19/2025 9:19 AM EDTBody Mass Index46.52001/19/2025 9:19 AM EDT Plan of Treatment DateTypeDepartmentCare Team (Latest Contact Info)Futbrbumbtm26/27/2025 11:00 AM EDTOffice Visit [facility] [address] [place] [phone] Contreras Mock DO [address] [place] [address] Health MaintenanceDue DateLast DoneCommentsInfluenza Vaccine (#1)03/13/2025 06/05/2021 Goals GoalPatient Goal TypeAssociated ProblemsRecent ProgressPatient-Stated?Author Reminders Care PlanOB RemindersNoOpen Scheduling, Background Additional Health Concerns Active ProblemsNoted DateDiagnosed DateOB Cncmiqczq38/30/2023 Insurance Care Teams Team MemberRelationshipSpecialtyStart DateEnd Date Alfonzo Addison MD [facility] [place] [address] PCP - GeneralFamily Medicine12/22/22
--- OUTSIDE RECORDS SUMMARY | 2025-05-05 11:35 | XMS_ITS | CCD ---
Author Organization [facility] CliniSyme Care Team Providers Care Health Information Coder Name Role Phone MORIAH BOND Unavailable Unavailable HOY, MORIAH Unavailable Unavailable SELF, REFERRED Unavailable Unavailable HOY MORIAH Unavailable Unavailable [facility], DR LIRA Primary Care Unavailable EMILI ., [...] Unavailable ALFONZO GUERRA Primary Care Unavailable MK LAYISON Referring Unavailable ALFONZO GUERRA Primary Care Unavailable [...] Unavailable HOUSE, DO DINORAH Linda Attending Unavailable Vernoica Singh APRN Primary Care Provider Veronica Singh APRN Attending Provider Migue Talavera MD Attending Provider Migue Talavera Attending Unavailable Migue Talavera Admitting Unavailable EMILI, CONTRERAS Attending Unavailable EMILI, CONTRERAS Attending Unavailable EMILI, CONTRERAS Attending Unavailable LUZ, OLGA Attending Unavailable Allergies Allergy ClassificationReported Allergen(s)Allergy TypeDate of OnsetReaction(s) Facility (2 sources)azithromycinDrug Angoeph33-24-4582[facility] (3 sources)ketorolac; Translations: [Toradol]Drug Pbbpvym79-51-1018IzcSelect [facility] [place] [facility] (6 sources)traMADolDrug Hgfffqp57-73-9195TsshnXgjC[facility] (1 source)Iodine (And Iodine Containting Drugs)Drug allergy (disorder)05-16-2015 [facility] Repository (20 sources)Azithromycin; Translations: [AZITHROMYCIN]Drug Pexzrvi80-42-7143 [facility] ([facility])Ketorolac trometamolAllergy to bmbrouhnh94-23-8001AcvvbRE[facility] (20 sources)traMADol; Translations: [TRAMADOL]Drug Uwnywtp76-27-5373TwbbrSOGK Healthcare (18 sources)OtherPropensity to adverse haoqbykip95-26-1824TPON [facility] (20 sources)Contrast media; Translations: [DYE]Propensity to adverse reactions to drug (disorder)16-48-3135DquStjiet Repository (20 sources)Ketorolac; Translations: [KETOROLAC]Drug Bquixqo67-83-8409Ooxru [facility] Repository (1 source)Contrast media; Translations: [Contrast Dye]Propensity to adverse reactions to drug (disorder)[facility] Medications Current Medications MedicationDrug Class(es)DatesSig (Normalized)Sig (Original)acetaminophen 500 mg oral tablet (20 sources)Start: 39-64-1914qsrk 2 tablets by mouth every eight hours acetaminophen (TYLENOL EXTRA STRENGTH) 500 mg tablet Take 2 tablets (1,000 mg total) by mouth every8 (eight) hours. 30 tablet 10/12/2023 Activedocusate sodium 100 mg oral capsule (13 sources)Start: 06-14-2890pile 1 capsule by mouth twice dailydocusate sodium (COLACE) 100 mg capsule Take 1 capsule (100 mg total) by mouth 2 (two) times a day.10 capsule 0 06/05/2021 Activedrospirenone 4 mg oral tablet (2 sources)ProgestinStart: 01-19-2025 End: 67-06-1865qump 1 tablet by mouth once dailyDrospirenone (Slynd) 4 MG tablet Indications: Pelvic pain in female , Hx of ovarian cyst , PCOS (polycystic ovarian syndrome) , Insulin resistance Take 1 tablet by mouth Daily 84 tablet 3 01/19/2025 04/13/2025 Activeferrous sulfate 325 mg oral tablet (17 sources)Start: 10-12-2023 End: 66-43-0905ajqv 1 tablet by mouth once daily at breakfastferrous sulfate 325 (65 FE) mg tablet Take 1 tablet (325 mg total) by mouth daily with breakfast for 30 days. 30 tablet 10/12/2023 11/11/2023 Activeibuprofen 800 mg oral tablet (20 sources)Nonsteroidal Anti-inflammatory DrugStart: 30-64-1375xjzhsjukf hydrochloride 200 mg oral tablet (20 sources)beta-Adrenergic BlockerStart: 13-40-4743douw 1 tablet by mouth once dailyStart: 30-13-5308unho 2 tablets by mouth every eight hourslabetaloL (NORMODYNE) 300 mg tablet Take 2 tablets (600 mg total) by mouth every 8 (eight) hours. 60 tablet 2 10/12/2023 ActiveStart: 07-20-2023 End: 20-34-2688isqj 1 tablet by mouth in the morning, then take 1 tablet by mouth in the evening, then take 1 tablet by mouth at bedtimelabetalol (Normodyne) 300 MG tablet Indications: Elevated blood pressure affecting , antepartum Take 1 tablet (300 mg) by mouth in the morning and 1 tablet (300 mg) in the evening and 1 tablet (300 mg) before bedtime. 270 tablet 3 07/20/2023 07/19/2024 Active End: 86-68-9647kbsqbzjtz (Normodyne) 300 MG tablet Take 200 mg by mouth in the morning and 200 mg before bedtime. 06/29/2024 Discontinuedtake 3 tablets by mouth in the morning, then take 3 tablets by mouth at bedtimelabetaloL (NORMODYNE) 100 mg tablet Take 3 tablets (300 mg total) by mouth in the morning and 3 tablets (300 mg total) before bedtime. 0 Activelevothyroxine sodium 0.075 mg oral tablet (20 sources)l-ThyroxineStart: 55-75-4996rdsr 1 tablet by mouth once in the morninglevothyroxine (SYNTHROID, LEVOTHROID) 100 MCG tablet Indications: IUGR (intrauterine growth restriction) affecting care of mother, second trimester, not applicable or unspecified fetus , History of delivery, currently , 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 trimester Take 1 tablet (100 mcg total) by mouth in the morning. 90 tablet 10 08/04/2023 ActiveStart: 07-30-2023 End: 03-46-5079tubf 1 tablet by mouth in the morninglevothyroxine (SYNTHROID, LEVOTHROID) 75 MCG tablet Take 1 tablet (75 mcg total) by mouth in the morning. 60 tablet 2 10/13/2023 ActiveStart: 06-19-2023 End: 13-26-1028iovc 1 tablet by mouth once in the morninglevothyroxine (SYNTHROID, LEVOTHROID) 75 MCG tablet Indications: History of delivery, currently , 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 trimester Take 1 tablet (75 mcg total) by mouth in the morning. 30 tablet 3 06/19/2023 08/04/2023 Discontinued End: 65-02-3484wflj 1 tablet by mouth before mealtimelevothyroxine (Synthroid, Levoxyl) 100 MCG tablet Take 100 mcg by mouth in the morning. Take beforemeals. 06/29/2024 DiscontinuedmetFORMIN hydrochloride 500 mg oral tablet (16 sources)BiguanideStart: 05-41-6299vzoy 1 tablet by mouth once dailyStart: 05-03-2024 End: 20-78-0385upqm 1 tablet by mouth every twenty-four hours at mealtime metFORMIN XR (Glucophage-XR) 500 MG 24 hr tablet Indications: Insulin resistance Take 1 tablet (500mg) by mouth in the evening. Take with meals Do not crush, chew, or split. 30 tablet 11 05/03/2024 05/03/2025 Activemetoclopramide 10 mg oral tablet (20 sources)Dopamine-2 Receptor AntagonistStart: 82-06-6671bhhs 1 tablet by mouth three times daily as neededmetoclopramide (Reglan) 10 MG tablet Indications: Missed menses Take 1 tablet (10 mg) by mouth 3 (three) times a day as needed (as needed before meals). 30 tablet 2 05/07/2023 Activemetoclopramide (REGLAN) 5 mg tablet Take 1 tablet (5 mg total) by mouth in the morning and 1 tablet(5 mg total) at noon and 1 tablet (5 mg total) in the evening and 1 tablet (5 mg total) before bedtime. ActiveNIFEdipine 30 mg osmotic 24 hr extended release oral tablet (20 sources)Dihydropyridine Calcium Channel BlockerStart: 76-65-5114boms 1 tablet by mouth every twenty-four hours in the morningNIFEdipine XL (PROCARDIA XL) 30 mg 24 hr tablet Take 1 tablet (30 mg total) by mouth in the morning. 30 tablet 2 10/12/2023 Active End: 59-11-8796XGYUwmjvge (Procardia) 20 MG capsule Take 30 mg by mouth Daily 06/29/2024 Discontinued End: 56-08-2266jopk 1 tablet by mouth once daily, then take 1 tablet by mouth every twenty-four hoursNIFEdipine CC (ADALAT CC) 30 mg 24 hr tablet Take 30 mg by mouth daily. 0 08/04/2023 Discontinued (Patient Stopped On Own)omeprazole 40 mg delayed release oral capsule (20 sources)Proton Pump InhibitorStart: 06-63-9689asjy 1 capsule by mouth once dailytake 1 capsule by mouth in the morningomeprazole (PriLOSEC) 20 mg capsule Take 1 capsule (20 mg total) by mouth in the morning. 0 Activeondansetron 4 mg disintegrating oral tablet (20 sources)Serotonin-3 Receptor AntagonistStart: 88-45-4836gkbnzutlhnz ODT (ZOFRAN ODT) 4 mg disintegrating tablet Dissolve 1 tablet (4 mg total) on tongue 3 (three) times a day as needed for nausea for up to 3 doses. 3 tablet 05/29/2023 Active End: 35-58-2830lnzz 1 tablet by mouth every eight hours as needed for nausea and vomitingondansetron (ZOFRAN) 4 mg tablet Take 1 tablet (4 mg total) by mouth every 8 (eight) hours as needed for nausea or vomiting. 0 08/04/2023 Discontinued (Duplicate Listing)oxyCODONE hydrochloride 5 mg oral tablet (4 sources)Opioid AgonistStart: 10-12-2023 End: 93-12-0756mnug 1 tablet by mouth every six hours as needed for pain oxyCODONE (ROXICODONE) 5 mg immediate release tablet Indications: Single liveborn, born in hospital, delivered by section Take 1 tablet (5 mg total) by mouth every 6 (six) hours as needed for pain for up to 5 days. Max Daily Amount: 20 mg 20 tablet 0 10/12/2023 10/17/2023 Activepantoprazole 40 mg delayed release oral tablet (20 sources)Proton Pump InhibitorStart: 49-64-8818bfkq 1 tablet by mouth in the morningpantoprazole (PROTONIX) 40 mg EC tablet Take 1 tablet (40 mg total) by mouth in the morning. 60 tablet 2 10/13/2023 Activephentermine hydrochloride 37.5 mg oral tablet (14 sources)Sympathomimetic Amine AnorecticStart: 05-30-2024 End: 89-70-8891hcam 1 tablet by mouth before mealtimephentermine (Adipex-P) 37.5 MG tablet Indications: Encounter for weight management Take 1 tablet (37.5 mg) by mouth in the morning. Take before meals. 30 tablet 05/30/2024 Active pyridoxine hydrochloride 25 mg oral tablet (2 sources)take 1 tablet by mouth in the morningpyridoxine (Vitamin B-6) 25 MG tablet Take 25 mg by mouth in the morning. 0 ActiveSemaglutide (1 source)Start: 36-21-7597eyihwbqhiee 25 mg oral tablet (20 sources)Serotonin and Norepinephrine Reuptake InhibitorStart: 10-03-2024 End: 33-39-2201cqgh 1 tablet by mouth once dailyStart: 05-30-2024 End: 05-03-6867ammi 1 capsule by mouth once dailyvenlafaxine XR (Effexor XR) 75 MG 24 hr capsule Indications: Anxiety Take 1 capsule (75 mg) by mouth Daily Do not crush or chew. 30 capsule 11 05/30/2024 05/30/2025 ActiveStart: 03-08-2024 End: 39-21-6080zctq 1 capsule by mouth once dailyvenlafaxine XR (Effexor XR) 37.5 MG 24 hr capsule Indications: Post depression (CMS/HCC) Take 1 capsule (37.5 mg) by mouth Daily Do not crush or chew. 30 capsule 05/03/2024 05/30/2024 Discontinued Completed/Discontinued Medications MedicationDrug Class(es)DatesSig (Normalized)Sig (Original)benzonatate 200 mg oral capsule (2 sources)Non-narcotic AntitussiveStart: 12-21-2024 End: 67-37-2317okox 1 capsule by mouth three times daily as needed for cough Benzonatate 200 mg capsule Discontinued 200 MG PO Three times daily as needed for cough 30 December 21, 2024 12:00am January 03, 2025 11:05ambuPROPion hydrochloride 100 mg oral tablet (1 source)Aminoketone End: 05-88-2837xhko 3 tablets by mouth once dailybuPROPion (WELLBUTRIN) 100 mg tablet Take 300 mg by mouth daily. 0 08/04/2023 Discontinued (Therapycompleted) doxycycline monohydrate 100 mg oral tablet (2 sources)Tetracycline-class DrugStart: 12-21-2024 End: 56-28-2909tewk 1 tablet by mouth twice dailyDoxycycline Monohydrate 100 mg tablet Discontinued 100 MG PO Twice daily 14 December 21, 2024 12:00am January 03, 2025 11:05amescitalopram 10 mg oral tablet (20 sources)Serotonin Reuptake InhibitorStart: 10-26-2023 End: 99-46-4822cfat 1 tablet by mouth once dailyescitalopram (Lexapro) 10 MG tablet Indications: Other depression (CMS/HCC) , Anxiety Take 1 tablet(10 mg) by mouth Daily 30 tablet 11 10/26/2023 03/08/2024 Discontinued (Ineffective)Start: 07-07-2023 End: 02-61-0385xkwl 1 tablet by mouth in the morningescitalopram (Lexapro) 5 MG tablet Take 5 mg by mouth in the morning. 07/07/2023 05/03/2024 Discontinued (Other)famotidine 10 mg oral tablet (1 source)Histamine-2 Receptor Antagonist End: 93-91-0084juee 1 tablet by mouth twice dailyfamotidine (PEPCID) 10 mg tablet Take 10 mg by mouth 2 (two) times a day. 0 08/04/2023 Discontinued (Patient Stopped On Own)montelukast 10 mg oral tablet (1 source)Leukotriene Receptor Antagonist End: 42-47-8159iljl 1 tablet by mouth once dailymontelukast (SINGULAIR) 10 mg tablet Take 10 mg by mouth nightly. 0 08/04/2023 Discontinued (Patient Stopped On Own)topiramate 50 mg oral tablet (9 sources)Start: 04-27-2024 End: 83-89-1533Zpwnhtr 50 MG tablet 50 mg 04/27/2024 06/29/2024 Discontinued vitamin b12 1 mg oral capsule (15 sources)Vitamin B12 End: 67-05-2280zbuk 1 capsule by mouth in the morningCyanocobalamin (B-12) 1000 MCG capsule Take 1 capsule by mouth in the morning. 06/29/2024 Discontinued Problems Active Problems Problem ClassificationProblemDateDocumented DateEpisodic/ChronicAbdominal pain (3 sources)Right upper quadrant pain; Translations: [Pain in female pelvis] Onset: 243586-23-5746PfwwujkqSwxglxi disorders (20 sources)Anxiety; Translations: [Anxiety disorder, unspecified]Onset: 010774-74-9196GehqdqkZcxmzl (18 sources)Asthma; Translations: [Unspecified asthma, uncomplicated]Onset: 563119-80-2198VmfzfaiTfgunso obstructive pulmonary disease and bronchiectasis (4 sources)Bronchitis; Translations: [Bronchitis, not specified as acute or chronic]89-54-9435BhroutuoYcpyuzyd mellitus without complication (2 sources)Impaired fasting glycemia; Translations: [Impaired fasting glucose] 30-02-4702QpqerxoyLrquideswg disorders (20 sources)Gastroesophageal reflux disease; Translations: [Gastro-esophageal reflux disease without esophagitis]Onset: 104014-92-3048TyjqhqqFybaezmkj hypertension (20 sources)Essential hypertension; Translations: [Essential (primary) hypertension]Onset: 648414-96-4918KorpayvDrlidszr; including migraine (18 sources)Migraine; Translations: [Migraine, unspecified, not intractable, without status migrainosus]Onset: 327610-52-7837RisnxddMrkorktlvllp complicating ; childbirth and the puerperium (5 sources)Unspecified pre-existing hypertension complicating , unspecified trimester; Translations: [Chronic hypertension complicating AND/OR reason for care during ]Onset: 414034-64-4244IygniyjHypsg disorders and dislocations; trauma-related (4 sources)Unspecified internal derangement of left knee; Translations: [UNSPECIFIED INTERNAL DERANGEMENT OF LEFT KNEE]Onset: 00-87-3510NvcdvhgJqnvdqx and fatigue (7 sources)Fatigue; Translations: [Other fatigue]76-37-6578WgaqezwbTlchrexloslbx mental health disorders (1 source)Psychosomatic factor in physical condition; Translations: [Psychological and behavioral factors associated with disorders or diseases classified elsewhere]30-65-1040ThdqeqsYgeqxfpvknlof mental health disorders (6 sources) depression; Translations: [ depression] 73-26-8132JnolbbbhYeyz disorders (20 sources)Depressive disorder; Translations: [Depression]Onset: 02-12-2023 15-43-9876AcigzzdGpjkf complications of (1 source)Obesity complicating , unspecified trimester; Translations: [Obesity complicating , unspecified trimester]Onset: 56-57-9906Qqrhvbk Other complications of (2 sources)Thyroid disease in mother complicating , childbirth AND/OR puerperium; Translations: [Endocrine, nutritional and metabolic diseases complicating , unspecified trimester]38-66-6774FzvyngobBhkwb complications of (2 sources)Abnormal ultrasonic finding on screening of mother; Translations: [Abnormal ultrasonic finding on screening of mother] Onset: 31-84-4845WczjtapeOqqne complications of (2 sources)Supervision of other high risk pregnancies, second trimester; Translations: [Supervision of other high risk pregnancies, second trimester] Onset: 04-95-6190FvppmxlsNkhor complications of (1 source)Supervision of with other poor reproductive or obstetric history, unspecified trimester; Translations: [Supervision of with other poor reproductive or obstetric history, unspecified trimester]Onset: 83-49-3932RmmfyybkUnuaf complications of (1 source)Maternal care for other known or suspected poor growth, second trimester, not applicable or unspecified; Translations: [Maternal care for other known or suspected poor growth, second trimester, not applicable or unspecified]Onset: 87-45-8938RlsqojshLdkop complications of (1 source)Supervision of with other poor reproductive or obstetric history, second trimester; Translations: [Supervision of with other poor reproductive or obstetric history, second trimester]Onset: 08-04-2023 EpisodicOther endocrine disorders (20 sources)Polycystic ovary syndrome; Translations: [Polycystic ovarian syndrome]Onset: 052712-13-2797YxlgoreWegpt female genital disorders (2 sources)History of gynecological disorder; Translations: [Personal history of other diseases of the female genital tract]85-25-7364EueqhudhSqcmq nutritional; endocrine; and metabolic disorders (18 sources)Morbid obesity; Translations: [Morbid (severe) obesity due to excess calories]Onset: 454110-84-2365QugknehQgebu nutritional; endocrine; and metabolic disorders (6 sources)Insulin resistance; Translations: [Insulin resistance]05-03-2024 ChronicOther nutritional; endocrine; and metabolic disorders (1 source)Obesity; Translations: [Obesity, unspecified]16-10-5491HomlcfwIncod nutritional; endocrine; and metabolic disorders (6 sources)Body mass index 40+ - severely obese; Translations: [Morbid (severe) obesity due to excess calories]52-19-1305ExbtittBqksx nutritional; endocrine; and metabolic disorders (4 sources)Morbid (severe) obesity due to excess calories; Translations: [Morbid obesity]95-27-7074KwdzaluSisgj and delivery including normal (2 sources)Second trimester ; Translations: [Encounter for supervision of normal , unspecified, second trimester]24-73-2357TxsqeytlZdueb screening for suspected conditions (not mental disorders or infectious disease) (10 sources)Patient encounter status; Translations: [Encounter for screening for diabetes mellitus]Onset: 336611-80-6701VbfjqmjhCqgjn upper respiratory disease (18 sources)Seasonal allergic rhinitis; Translations: [Other seasonal allergic rhinitis]Onset: 709755-51-3915ZyyxbmvYtqtqrid (1 source)Maternal care for unspecified type scar from previous delivery; Translations: [Maternal care for unspecified type scar from previous delivery]Onset: 83-58-2002RwbajnnhQujcvaxy codes; unclassified (2 sources)Family history of other specified conditions; Translations: [Family history of other specified conditions]Onset: 04-92-1786MquubejhKpgkjyb and strains (3 sources)Sprain of knee; Translations: [Sprain of unspecified site of unspecified knee, initial encounter]72-30-0216TyngiurfSbmhhbh on above:Problem List clean-up per request of Phys. EHR CmteThyroid disorders (17 sources)Hypothyroidism, unspecified; Translations: [Thyroid nodule]Onset: 312957-58-4117KtunmaiAatqalbirxhl (2 sources)Unknown / UNK(Unknown)Onset: 84-19-9178Ffbqtotktkwo (18 sources)OB RemindersOnset: Past or Other Problems Problem ClassificationProblemDateDocumented DateEpisodic/ChronicHypertension complicating ; childbirth and the puerperium (20 sources)Severe pre-eclampsia complicating childbirth; Translations: [Pre-eclampsia]Onset: 798673-19-5995VemdjojbOwnx disorders (20 sources)Mood disordersOnset: Other bone disease and musculoskeletal deformities (1 source)Chondromalacia, left knee; Translations: [CHONDROMALACIA, LEFT KNEE] Onset: 49-87-2312PrbnmpriBmbwt complications of (20 sources)Disorder of ; Translations: [Maternal care for other known or suspected poor growth,unspecified trimester, not applicable or unspecified]Onset: 286188-80-7861RumizyljWowpl complications of (1 source)Maternal care for other known or suspected poor growth, unspecified trimester, not applicableor unspecified; Translations: [Maternal care for other known or suspected poor growth, unspecified trimester, not applicable or unspecified]Onset: 59-07-3802GuvvpluoLkjqj complications of (1 source)Endocrine, nutritional and metabolic diseases complicating , second trimester; Translations: [Endocrine, nutritional and metabolic diseases complicating , second trimester]Onset: 70-77-1027XptrcrcjPqwxf complications of (1 source)Supervision of other high risk pregnancies, unspecified trimester; Translations: [Supervision of other high risk pregnancies, unspecified trimester]Onset: 69-16-0021AaugefbsIbeok complications of (13 sources) care status; Translations: [Maternal care for other known or suspected poor growth,unspecified trimester, not applicable or unspecified]Onset: 346429-38-7919GgkodqjnBfvdi complications of (20 sources)H/O: premature delivery; Translations: [Supervision of other high risk pregnancies, unspecified trimester]Onset: 680436-76-5550GejljltgVsids complications of (20 sources)Hypothyroidism in ; Translations: [Endocrine, nutritional and metabolic diseases complicating , second trimester]Onset: 581293-30-7555QlrsoigbXjylr complications of (20 sources)History of pre-eclampsia; Translations: [Supervision of with other poor reproductive or obstetric history, second trimester]Onset: 124469-00-5204BzmfzchhBnyrc complications of (20 sources)Poor growth affecting management; Translations: [Maternal care for other known or suspected poor growth, second trimester, not applicable or unspecified]Onset: 211293-30-9342WmfpzbfjOkjbhaze codes; unclassified (18 sources)Insomnia; Translations: [Insomnia, unspecified]Onset: 02-12-2023 91-69-1226ZfcsxgciIveqpyw disorders (20 sources)Disorder of thyroid gland; Translations: [Disorder of thyroid, unspecified]59-75-1410Ppybwnki Results Test NameValueInterpretationReference RangeFacilityBasophils Auto (Bld) [#/Vol] Ordered By: Migue Talavera on 51-96-2566Mvxcmjpyb (Bld) [#/Vol]0.1 10 3/uL0.0-0.1 [facility] HospitalBasophils/100 WBC Auto (Bld)Ordered By: Migue Talavera on 25-37-4784Yebokxvri/100 WBC (Bld)0.8 %0.2-2.0[facility] HospitalEosinophils/100 WBC Auto (Bld)Ordered By: Migue Talavera on 34-85-1445Lylgghsughs/100 WBC (Bld)2.4 %0.9-7.0[facility] Erythrocyte distribution width Auto (RBC) [Ratio]Ordered By: Migue Talavera on 12-65-3448Mqetnsgansm distribution width (RBC) [Ratio]13.2 %11.0-15.0[facility] HospitalEstimated glomerular filtration rate (GFR) non- AmericanOrdered By: Migue Talavera on 02-34-5330YOA/1.73 sq M.predicted among non- blacks MDRD (S/P/Bld) [Vol rate/Area]mL/min/{1.73_m2}>=60 mL/min/1.73m 2 [facility] HospitalGlobulin Calc (S) [Mass/Vol]Ordered By: Migue Talavera on 16-91-7560Qfohjnvj (S) [Mass/Vol]3.7 g/dLMercy Health Lorain HospitalHematocrit Auto (Bld) [Volume fraction]Ordered By: Migue Talavera on 34-58-4208Vhdfsumkfz (Bld) [Volume fraction]38.3 %36.0-48.0[facility] HospitalHemoglobin [Mass/volume] in BloodOrdered By: Migue Talavera on 89-56-7708Wnolnipejo (Bld) [Mass/Vol]12.6 g/dL12.0-16.0[facility] HospitalLaboratory - Chemistry and Chemistry - challengeOrdered By: Migue Talavera on 10-50-8713Lqypadvgt Ql (U)NegativeNEGATIVEMercy Health Lorain HospitalGlucose (U) [Mass/Vol]NegativeNEGATIVEMercy Health Lorain Hospital Ketones Ql (U)NegativeNEGATIVEMercy Health Lorain HospitalpH (U)6.0 [pH] 5.0-9.0[facility] Centerpecific gravity (U) [Rel density] >=1.828Yljvdhxm4.005-1.025[facility] HospitalUrobilinogen Qn (U) 0.2 {Miguel Angel'U}/dL0.2-1.0[facility] HospitalAlbumin [Mass/Vol]3.3 g/dLLow3.4-5.0[facility] HospitalALP [Catalytic activity/Vol]60 U/U06-008NenirdwapMercy Health Lorain HospitalALT [Catalytic activity/Vol]29 U/L 14-59[facility] HospitalAST [Catalytic activity/Vol]16 U/L15-37 [facility] HospitalBilirubin [Mass/Vol]0.2 mg/dL0.2-1.0[facility] HospitalCalcium [Mass/Vol]9.3 mg/dL8.5-10.1FWexner Medical CenterChloride [Moles/Vol]104 mmol/A80-781KdgqjbwzwMercy Health Lorain HospitalCO2 [Moles/Vol]26.7 mmol/L21.0-32.0[facility] Creatinine [Mass/Vol]0.88 mg/dL0.55-1.02[facility] GFR/1.73 sq M.predicted MDRD (S/P/Bld) [Vol rate/Area]mL/min/{1.73_m2}>=60 mL/min/1.73m 2FWexner Medical CenterGlucose [Mass/Vol]123 mg/dLHigh 74-106[facility] HospitalLipase [Catalytic activity/Vol]29.0 U/L 16.0-77.0[facility] HospitalPotassium [Moles/Vol]3.8 mmol/L3.5-5.1 [facility] HospitalProtein [Mass/Vol]7.0 g/dL6.4-8.2FSt. Elizabeth Hospitalodium [Moles/Vol]141 mmol/V631-710KlvbfmjecMercy Health Lorain HospitalUrea nitrogen [Mass/Vol]15.0 mg/dL7.0-18.0[facility] HospitalUrea nitrogen/Creatinine [Mass ratio]17.0 mg/mgMercy Health Lorain HospitalLaboratory - Hematology and Cell countsOrdered By: Migue Talavera on 91-46-1226Cnlcbubk granulocytes/100 WBC (Bld)0.3 %0.0-0.5FWexner Medical CenterLaboratory - Specimen informationOrdered By: Migue Talavera on 78-73-1332Gdgjykfgiw (U)CLEARCLEARFWexner Medical CenterColor (U)LT. YELLOWYELLOWMercy Health Lorain HospitalLaboratory - UrinalysisOrdered By: Migue Talavera on 48-28-9291Zximssmdu esterase Test strip Ql (U)NegativeNEGATIVE [facility] HospitalMucus Ql (Urine sed)NONE SEENNONE SEENMercy Health Lorain HospitalNitrite Ql (U)NegativeNEGATIVEMercy Health Lorain HospitalProtein Ql (U)NegativeNEG/TRACEMercy Health Lorain HospitalLeukocytes [#/volume] corrected for nucleated erythrocytes in Blood by Automated coun Ordered By: Migue Talavera on 72-03-4537JJL corrected for nucl RBC Auto (Bld) [#/Vol]13.4 10 3/uLHigh4.0-11.0[facility] HospitalLymphocytes Auto (Bld) [#/Vol]Ordered By: Migue Talavera on 94-65-9198Nvzyuobzcvp (Bld) [#/Vol]5.0 10 3/uLHigh1.2-3.8[facility] HospitalLymphocytes/100 WBC Auto (Bld)Ordered By: Migue Talavera on 33-54-5333Kucbcktuwpn/100 WBC (Bld)37.5 % 20.5-60.0[facility] HospitalMCH Auto (RBC) [Entitic mass]Ordered By: Migue Talavera on 15-88-2874WAV (RBC) [Entitic mass]28.4 pg26.7-34.0[facility] HospitalMCHC Auto (RBC) [Mass/Vol]Ordered By: Migue Talavera on 41-84-7605VNZZ (RBC) [Mass/Vol]32.9 g/dL29.9-35.2FWexner Medical CenterMCV Auto (RBC) [Entitic vol]Ordered By: Migue Talavera on 71-43-9724YXP (RBC) [Entitic vol]86.5 fL81.0-99.0[facility] HospitalMonocytes Auto (Bld) [#/Vol]Ordered By: Migue Talavera on 12-78-4328Gnbqrynuc (Bld) [#/Vol] 0.7 10 3/uL0.3-0.8[facility] HospitalMonocytes/100 WBC Auto (Bld) Ordered By: Migue Talvaera on 65-95-7853Wttbulrqi/100 WBC (Bld)5.5 %1.7-12.0 [facility] HospitalNeutrophils Auto (Bld) [#/Vol]Ordered By: Migue Talavera on 93-87-7961Cwqvgijafpy (Bld) [#/Vol]7.1 10 3/uLHigh1.4-6.5FWexner Medical CenterNeutrophils/100 WBC Auto (Bld)Ordered By: Migue Talavera on 03-64-6311Hliqvnxfkxm/100 WBC (Bld)53.5 %43.0-75.0[facility] HospitalNo Panel InformationOrdered By: Migue Talavera on 59-83-8270Vreop Bacteria MODERATE #/HPFAbnormalNONE SEENMercy Health Lorain HospitalUrine Calcium Oxalate CrystalsFEWMercy Health Lorain HospitalUrine Culture Reflexed YES-[facility] HospitalUrine Occult BloodNegativeNEGATIVE [facility] HospitalUrine Other CastsNONE SEEN #/LPFNONE SEEN [facility] HospitalUrine Other CrystalsSeen #/HPFAbnormalNone Seen [facility] HospitalUrine RBC0-2 #/HPF0-2FWexner Medical CenterUrine Squamous Epithelial CellsMANY #/LPFAbnormalNONE/RAREMercy Health Lorain HospitalUrine WBC0-2 #/HPFAbnormalNONE SEENMercy Health Lorain HospitalEosinophils # (Auto)0.3 10 3/uL0.0-0.7FWexner Medical CenterImmature Granulocyte # (Auto)0.04 10 3/uLHigh0.00-0.03[facility] HospitalPlatelet mean volume Auto (Bld) [Entitic vol]Ordered By: Migue Talavera on 83-17-3189Bqjweznj mean volume (Bld) [Entitic vol]9.0 fLLow9.5-13.5 [facility] HospitalPlatelets Auto (Bld) [#/Vol]Ordered By: Migue Talavera on 62-98-9254Rndlperaj (Bld) [#/Vol]383 10 3/bT239-130JncmnoxgyMercy Health Lorain HospitalRBC Auto (Bld) [#/Vol]Ordered By: Migue Talavera on 53-67-1934MXY (Bld) [#/Vol]4.43 10 6/uL4.20-5.40Wexner Medical Centererum or plasma albumin/globulin mass ratioOrdered By: Migue Talavera on 01-14-2025 Albumin/Globulin [Mass ratio]0.9 {ratio}Wexner Medical Centererum or plasma anion gap determinationOrdered By: Migue Talavera on 64-54-3283Jrukc gap [Moles/Vol]14.1 mmol/LFWexner Medical CenterUrine Cultureon 30-97-1696Qzosopef identified Cx Nom (U)10,000 colonies/ml mixed bacterial skin contaminants 2 Days PERFORMED BY: [place] [address] PATHOLOGIST RESISTANCE WELDING MACHINE OPERATOR DEVON GARCIA M.D.NormalThe Atrium Health Union West Physician GroupComment on above: Performed By: #### CUU #### [place] [address] OOFBqK6n HPLC (Bld) [Mass fraction]Ordered By: Veronica Singh on 35-61-4380QnR6f (Bld) [Mass fraction]6.1 %[facility] HospitalInfluenza virus B Ag [Presence] in Upper respiratory specimen by Rapid immunoassayon 51-96-1138SGQNN Ag IA.rapid Ql (Nph)NegativeMercy Health Lorain HospitalNo Panel Informationon 33-19-3006Vmucvmxcj Type A (Rapid) NegativeMercy Health Lorain HospitalPOC SARS CoV-2 AntigenNegativeMercy Health Lorain HospitalRad - Ultrasound Reporton 34-62-2438Kfx - Ultrasound [id number]#1.00OTUniversity Hospitals Cleveland Medical CenterOutside Recordson 19-39-3493Domrmju Records [id number]#1.00City HospitalRad - Other Radiology Reporton 28-04-1924Tay - Other Radiology Report [id number]#1.00[facility] Coding Summaryon 56-79-2858Quekys SummaryHTMLBase 64 WpcagiyyKLc3nHt+PGhlYWQ+TY6OLKLtW32qmYLsoZ4xE8YEMFoUAteeRQNEPTxDAmTitdDjVQ8xyTSy ZXJu [file] OiB (more content not included)...[facility] HospitalReminder Messageson 08-66-5953Yzjmpmph Messages From: DINORAH GILBERT DO To: [facility] Clinical Pool (MAGR_[place]); Sent: 08/04/2024 11:14:17 EST [...] % (14 - 48) 08/02/2024 11:54 Auto Vilas % 6 % (1 - 12) 08/02/2024 11:54 Auto Eos % 2.1 % (0.9 - 4.0) 08/02/2024 11:54 Auto Baso % 0.9 % (0.2 - 2.0) 08/02/2024 11:54 Neut Abs# 6.5 x103/mcL (1.5 - 9.2) 08/02/2024 11:54 Lymph Abs# (H) 3.7 x103/mcL (1.3 - 2.9) 08/02/2024 11:54 Vilas Abs# 0.7 x103/mcL (0.0 - 0.8) 08/02/2024 11:54 Eos Abs# 0.2 x103/mcL (0.0 - 0.4) 08/02/2024 11:54 Baso Abs# 0.1 x103/mcL (0.0 - 0.2) pt [facility].Auto Diff 1on 42-65-4666Vvbs Vilas %6 %Normal 1-12[facility] HospitalComment on above:Performed By: #### [id number], 09312241, 55825241, [id number], 7541252 #### [facility] (DEFAULT) [address] [place] [address] 62364Zisy Abs#0.1 s62Gmruze0.0-0.2Magrreg[facility] hospital company HospitalComment on above:Performed By: #### 0693810, 17719540, 27321460, [id number], 8369515 #### [facility] (DEFAULT) [address] [place] [address] 93578Korgcjzlb/100 WBC (Bld)0.9 %Normal0.2-2.0[facility] Hospital Comment on above:Performed By: #### 7314943, 20768632, 66926602, 3156221832, 6970108 #### [facility] (DEFAULT) [address] [place] [address] 27308Ill Abs#0.2 c29Wifdyx5.0-0.4[facility] HospitalComment on above:Performed By: #### 5967373, 10238564, 10099083, 2236208850, 9263595 #### [facility] (DEFAULT) [address] [place] [address] 35080Twxaucttebk/100 WBC (Bld)2.1 %Normal0.9-4.0[facility] HospitalComment on above:Performed By: #### 2256207, 43770710, 17050869, 0047794641, 5688013 #### [facility] (DEFAULT) [address] [place] [address] 91216Igfud Abs#3.7 n71Igls0.3-2.9[facility] HospitalComment on above:Performed By: #### 0296126, 48077667, 87548074, 2150564849, 3458793 #### [facility] (DEFAULT) [address] [place] [address] 56716Ucihxbxrisg/100 WBC (Bld)33 %Xybbhc10-02Vnhhxdqy Hospital Comment on above:Performed By: #### 8175682, 49595221, 19772247, 2818422346, 5067360 #### [facility] (DEFAULT) [address] [place] [address] 81015Ontu Abs#0.7 l21Kxneoq4.0-0.8[facility] HospitalComment on above:Performed By: #### 1237873, 28255849, 61715576, 5599449411, 5866933 #### [facility] (DEFAULT) [address] [place] [address] 32110Pfbq Abs#6.5 i86Rdmhci1.5-9.2Magrregency hospital company HospitalComment on above:Performed By: #### 2848787, 61250441, 65430602, 6187200718, 1484968 #### [facility] (DEFAULT) [address] [place], [place] [address]Neutrophils/100 WBC (Bld)58 %Wpivxl08-74Vizrzqwu Hospital Comment on above:Performed By: #### 6588078, 39343261, 52202913, 3990718066, 1957520 #### [facility] (DEFAULT) [address] [place] [address] 56027ZSE w/ Auto Diffon 43-24-2551Zvumnqkfmxp distribution width (RBC) [Ratio]13.8 %Gaoouz69.5-15.0[facility] HospitalComment on above: Performed By: #### 4033801, 97652304, 83019228, 2207967920, 1871220 #### [facility] (DEFAULT) [address] [place] [address] 91786Jrhdmdjypi (Bld) [Volume fraction]38.6 %Ubkrcc48.7-40.4 [facility] HospitalComment on above:Performed By: #### 1320983, 41807985, 03942709, 1772821836, 4744132 #### [facility] (DEFAULT) [address] [place] [address] 46706Dnkhjbvaiq (Bld) [Mass/Vol]12.9 g/tHPbftva34.3-15.9 [facility] HospitalComment on above:Performed By: #### 5051929, 10032872, 87813408, 6879969297, 8038842 #### [facility] (DEFAULT) [address] [place], [place] [address]Man Diff?AutoInvalid Interpretation CodeDetwiler Memorial Hospital Comment on above:Performed By: #### 6489169, 10511382, 42863347, 8265205590, 8825757 #### [facility] (DEFAULT) [address] [place] [address] (RBC) [Entitic mass]28 jmEaafif18-77Twazdghr Hospital Comment on above:Performed By: #### 2981960, 80409393, 73802046, 2639827370, 0753399 #### [facility] (DEFAULT) [address] [place], [place] [address]HC (RBC) [Mass/Vol]34 g/lQAstovp23-59Mqnkuhcu Hospital Comment on above:Performed By: #### 4671198, 49709662, 88436997, 3306914795, 3241188 #### [facility] (DEFAULT) [address] [place] [address] 40796OKT (RBC) [Entitic vol]85 bWVtupgo12-939Pfqpbaaj Hospital Comment on above:Performed By: #### 5262226, 28473741, 45276153, 2656891091, 2636351 #### [facility] (DEFAULT) [address] [place] [address] 16668Ciejelae900 x57Zpar076-421Ngdcvfxf HospitalComment on above:Performed By: #### 6556412, 28242974, 73385761, 9963584848, 4784753 #### [facility] (DEFAULT) [address] [place], [place] [address]Platelet mean volume (Bld) [Entitic vol]7.0 fLNormal 6.3-10.2MKettering Health HamiltonComment on above:Performed By: #### 6452631, 32212835, 34881237, 2468438105, 8880806 #### [facility] (DEFAULT) [address] [place], [place] [address]RBC4.56 l32Nhwgns3.70-5.30Detwiler Memorial HospitalComment on above:Performed By: #### 5279933, 63582482, 72695531, 7708793198, 7897472 #### [facility] (DEFAULT) [address] [place] [address] 39960PJC68.1 c62Cyze0.5-10.5[facility] HospitalComment on above: Performed By: #### 5718155, 28408064, 48383016, 6265488032, 8571825 #### [facility] (DEFAULT) [address] [place] [address] 47538CPX Standardon 91-72-8089oAJN Non AA>60Invalid Interpretation [facility] CampusComment on above:Performed By: #### 6714922, 06573514, 97495316, 3923509789, 3320779 #### [facility] (DEFAULT) [address] [place] [address] 96821cVPI AA>60Invalid Interpretation [facility] Comment on above:Performed By: #### 9167779, 20000496, 46546605, 9575125884, 9624029 #### [facility] (DEFAULT) [address] [place] [address] 40988Qqdeetp [Mass/Vol]3.8 g/dLNormal3.5-5.0[facility] Comment on above:Performed By: #### 0211462, 89466419, 48377746, 0034818041, 4897101 #### [facility] (DEFAULT) [address] [place] [address] 96221Qxkldcg/Globulin [Mass ratio]1.1 {ratio}Low1.4-2.6MKettering Health HamiltonComment on above:Performed By: #### 6817624, 81974715, 47498715, 2084553232, 7040800 #### [facility] (DEFAULT) [address] [place] [address] 94913Vol Phos47 IU/ZIcydgy16-38Fubetnmb HospitalComment on above:Performed By: #### 5521275, 12055697, 21393067, 0948951013, 6177770 #### [facility] (DEFAULT) [address] [place] [address] 03525LRU [Catalytic activity/Vol]21.0 U/YRwqufd84.0-54.0 [facility] HospitalComment on above:Performed By: #### 8774233, 56704766, 32161124, 4313661115, 1537300 #### [facility] (DEFAULT) [address] [place] [address] 09090Hfecz gap [Moles/Vol]13.7 mmol/LNormal5.0-19.0[facility] HospitalComment on above:Performed By: #### 7995248, 41214259, 44451771, 3039528991, 8086846 #### [facility] (DEFAULT) [address] [place] [address] 69422XZI [Catalytic activity/Vol]22 U/LGfjemg93-40Hletvkjn HospitalComment on above:Performed By: #### 2868876, 98871482, 02108290, 7722181871, 4105859 #### [facility] (DEFAULT) [address] [place] [address] 45689Pbuv Total0.4 mg/dLNormal0.3-1.2[facility] HospitalComment on above:Performed By: #### 5688028, 17839683, 42107083, 1170630166, 6250244 #### [facility] (DEFAULT) [address] [place] [address] 07044Ufjzirj [Mass/Vol]8.9 mg/dLNormal8.9-10.3[facility] Hospital Comment on above:Performed By: #### 2407430, 17856271, 67719797, 0260125893, 5442613 #### [facility] (DEFAULT) [address] [place] [address] 43245Jlqworqu [Moles/Vol]102 mmol/OXquapn407-076Awhyxphd HospitalComment on above:Performed By: #### 9190450, 91046685, 46413256, 8000231357, 4012845 #### [facility] (DEFAULT) [address] [place] [address] 95373CE3 [Moles/Vol]24 mmol/NBedzsi10-54Iigkbuep Hospital Comment on above:Performed By: #### 2338174, 49631991, 20993259, 7770579767, 5049382 #### [facility] (DEFAULT) [address] [place] [address] 18159Pqpqlienci [Mass/Vol]0.64 mg/dLNormal0.60-1.30[facility] HospitalComment on above:Performed By: #### 2555984, 01710730, 53538086, 0542678349, 4677831 #### [facility] (DEFAULT) [address] [place] [address] 77286Agaaerqm (S) [Mass/Vol]3.3 g/dLNormal1.5-4.3M[facility] HospitalComment on above:Performed By: #### 0534768, 43968713, 87969977, 7714676860, 4528076 #### [facility] (DEFAULT) [address] [place] [address] 00972Obpmcxb [Mass/Vol]97.0 mg/dSDovgjs44.0-118.0[facility] HospitalComment on above:Performed By: #### 1595184, 01238153, 55081247, 5647762665, 0816542 #### [facility] (DEFAULT) [address] [place] [address] 42360Obpbihayfa865 mOsm/LInvalid Interpretation CodeMercy Health Urbana Hospital HospitalComment on above:Performed By: #### 1107887, 35535112, 35062743, 9565344521, 2445542 #### [facility] (DEFAULT) [address] [place] [address] 98356Yrsyzpocg [Moles/Vol]3.7 mmol/LNormal3.6-5.1[facility] HospitalComment on above:Performed By: #### 1926435, 71376555, 40100462, 5475035543, 1979244 #### [facility] (DEFAULT) [address] [place] [address] 06070Kmmwxrw [Mass/Vol]7.1 g/dLNormal6.5-8.1[facility] Comment on above:Performed By: #### 0551777, 42306862, 84037565, 3768654006, 8123136 #### [facility] (DEFAULT) [address] [place] [address] 12253Xcdpme [Moles/Vol]136.0 mmol/DPvydnr503.0-144.0[facility] HospitalComment on above:Performed By: #### 9447616, 85444988, 95014050, 7854241674, 2561539 #### [facility] (DEFAULT) [address] [place] [address] 68701Ljfk nitrogen [Mass/Vol]12 mg/dLNormal8-26[facility] HospitalComment on above:Performed By: #### 2960344, 88287661, 47893706, 4097038838, 6094517 #### [facility] (DEFAULT) [address] [place] [address] 51628Tchu nitrogen/Creatinine [Mass ratio]18.7 mg/mgHigh 4.6-16.2[facility] HospitalComment on above:Performed By: #### 5552937, 00936260, 76807313, 6688724820, 2732082 #### [facility] (DEFAULT) [address] [place] [address] 56806M6, Totalon 70-55-5618H6 [Mass/Vol]8.36 ug/dLNormal 6.09-12.23[facility] HospitalComment on above:Performed By: #### 3370781, 68578478, 69011202, 5346386217, 9852991 #### [facility] (DEFAULT) [address] [place] [address] 60983XULay 49-45-9478SAE Qn4.05 m[IU]/LNormal0.45-5.33[facility] HospitalComment on above:Performed By: #### 8709431, 89267441, 31543873, 2689765813, 3270592 #### [facility] (DEFAULT) [address] [place] [address] 30128Gtwbuis Recordson 08-03-7696Jppielb Records [id number]#1.00OTUniversity Hospitals Cleveland Medical CenterRad - Other Radiology Reporton 85-87-4632Omw - Other Radiology Report [id number]#1.00[facility] IGP,APTIMA HPV,AGE GDLNon 05-19-4899QPI LN ACOG TESTINGNote.[facility] Comment on above:TESTS RESULT FLAG UNITS REF RANGE LAB Clinician Provided Cytology Information Source.............Cervix;Endocervix No. of containers..01 ThinPrep Vial Age Eduo CARLOS Tania... FLAG LEGEND: L-Low Normal,H-High Normal,LL-Alert Low,HH-Alert High <-Panic Low,>-Panic High,A-Abnormal,AA-Critical Abnormal Performed at: 01 =G [facility] [place] [address] Megha Almaguer MD, IGP, RFX APTIMA HPV ASCUNote.[facility]point Medical CenterComment on above:TESTS RESULT FLAG UNITS REF RANGE LAB DIAGNOSIS: 02 NEGATIVE FOR INTRAEPITHELIAL LESION OR MALIGNANCY. Specimen adequacy: 02 Satisfactory for evaluation. No endocervical component is identified. Performed by: 02 Ana Werner, Residential Solar Sales Consultant ([facility]) . 02 Note: Note 02 The Pap smear is a screening test designed to aid in the detection of premalignant and malignant conditions of the uterine cervix. It is not a diagnostic procedure and should not be used as the sole means of detecting cervical cancer. Both false-positive and false-negative reports do occur. Test Methodology: Note 02 The [employer](R) Rehabilitation Engineer was unable to read this specimen. Therefore a manual review was performed. FLAG LEGEND: L-Low Normal,H-High Normal,LL-Alert Low,HH-Alert High <-Panic Low,>-Panic High,A-Abnormal,AA-Critical Abnormal Performed at: [address] [address] Megha Almaguer MD, . 02 The HPV DNA reflex criteria were not met with this specimen result therefore, no HPV testing was performed. The HPV DNA reflex criteria were not met with this specimen result therefore, no HPV testing was performed. Performed at: = - [address] [id number] Field Operations Supervisor: Megha Almaguer MD, Phone: [phone] Performed at: [address] [id number] Field Operations Supervisor: Megha Almaguer MD, Phone: [phone] BRUSH-SPATULA CERVIX ENDOCERVIX CLINISYNCNOFL HealthcareProgress Note - Nurseon 41-41-1999Gekwrxwc Note - Nurse Patient presents in office [...] Sindy Cormier [Verified on: 02/09/2024 08:48 EDT] Trey CormierTuscarawas Hospital AND AUTO DIFFon 26-21-8850MUXMJTGD BASOPHIL0.1 X10E9/LNormal0.0-0.2[facility] HospitalComment on above: Performed By: #### PAZ SANTOYO #### [facility] ([id number]) [address] [place] [address] 33146HRWFJSDA NEUTROPHIL8.0 X10E9/LHigh1.5-6.6ProZanesville City HospitalComment on above:Performed By: #### PAZ SANTOYO #### [facility] ([id number]) [address] [place] [address], [facility] [place] [address] [place], [place] [address]Mmowrrctl/100 WBC (Bld)0.9 %NormalProZanesville City Hospital Comment on above:Performed By: #### PAZ SANTOYO #### [facility] ([id number]) [address] [place] [address], [address] [address]Xpbnmbfeapo (Bld) [#/Vol]0.2 10*3/uLNormal0.0-0.4ProZanesville City HospitalComment on above:Performed By: #### PAZ SANTOYO #### [facility] ([id number]) [address], [address] [place], [place] [address]Bfrlzjmeeza/100 WBC (Bld)1.5 %NormalAultman Hospital Comment on above:Performed By: #### PAZ SANTOYO #### [facility] ([id number]) [address], [address] [place], [place] [address]Yndrtfnqlfh distribution width (RBC) [Ratio]13.6 %Normal 11.5-15.0ProSelect Medical [facility] Clinic [facility], [facility] HospitalComment on above:Performed By: #### PAZ SANTOYO #### [facility] ([id number]) [address], [address] [place], [place] [address]Vewjnugclz (Bld) [Volume fraction]36.2 %Xvgdtt29-33HnnGdzbeq [place] HospitalComment on above:Performed By: #### PAZ SANTOYO #### [facility] ([id number]) [address], [address] [place], [place] [address]Ypzckxgmrd (Bld) [Mass/Vol]12.1 g/mODukgmp07.7-15.5ProMedFulton County Health Center HospitalComment on above:Performed By: #### PAZ SANTOYO #### [facility] ([id number]) [address], [address] [place], [place] [address]Zfubkgmdsng (Bld) [#/Vol]3.0 10*3/uLNormal1.0-3.5PHolmes County [facility] HospitalComment on above:Performed By: #### PAZ SANTOYO #### [facility] ([id number]) [address], [address] [place], [place] [address]Gsgfalfoszv/100 WBC (Bld)25.3 %NormalAultman Hospital Comment on above:Performed By: #### PAZ SANTOYO #### [facility] ([id number]) [address], [address] [place], [place] [address]MCH (RBC) [Entitic mass]30.2 cnEymmxp55-33JsbZieacv Jackson HospitalComment on above:Performed By: #### GERARDO SANTOYOU #### [facility] ([id number]) [address], [address] [place], [place] [address]WKYL (RBC) [Mass/Vol]33.4 g/xRZixuuq31-07LvdZtmqcr [facility] HospitalComment on above:Performed By: #### PAZ SANTOYO #### [facility] ([id number]) [address], [address] [place], [place] [address]PLW (RBC) [Entitic vol]91 eIGuikvx71-174FqqFsqulh Jackson HospitalComment on above:Performed By: #### PAZ SANTOYO #### [facility] ([id number]) [address], [address] [place], [place] [address]Miyxhhbyh (Bld) [#/Vol]0.6 10*3/uLNormal0-0.9[facility] Jackson HospitalComment on above:Performed By: #### PAZ SANTOYO #### [facility] ([id number]) [address], [address] [place], [place] [address]Thtmltzfx/100 WBC (Bld)5.1 %NormalAultman Hospital Comment on above:Performed By: #### GERARDO SANTOYOU #### [facility] ([id number]) [address], [address] [place], [place] [address]Hkeyqkloeny/100 WBC (Bld)67.2 %NormalAultman Hospital Comment on above:Performed By: #### GERARDO SANTOYOU #### [facility] ([id number]) [address], [address] [place], [place] [address]Wnyzkonw mean volume (Bld) [Entitic vol]7.2 fLNormal7-12 [facility] HospitalComment on above:Performed By: #### PAZ SANTOYO #### [facility] ([id number]) [address], [address] [place] [address]Qfuqivgjt (Bld) [#/Vol]423 10*3/dRKbsypk860-438TwrBlumwc [facility] HospitalComment on above:Performed By: #### PAZ SANTOYO #### [facility] ([id number]) [address], [address] [place], [place] [address]HVZ COUNT4.00 X10E12/LNormal3.80-5.20Pro[facility] Comment on above:Performed By: #### PAZ SANTOYO #### [facility] ([id number]) [address], [address] [place], [place] [address]GZT (Bld) [#/Vol]12.0 10*3/uLHigh4.0-11.0ProPrem[facility] Health [facility] Southca [facility]ano HospitalComment on above:Performed By: #### PAZ SANTOYO #### [facility] ([id number]) [address], [address] [place], [place] [address]VFZPLDWCCESOZ METABOLIC PANELon 26-20-6062Fibeopn [Mass/Vol]3.7 g/dLNormal3.2-5.3[facility]ano HospitalComment on above:Performed By: #### PAZ SANTOYO #### [facility] ([id number]) [address], [address] [place], [place] [address]YOT [Catalytic activity/Vol]61 U/XGywcop09-840VztPvolmx [facility] HospitalComment on above:Performed By: #### PAZ SANTOYO #### [facility] ([id number]) [address], [address] [place], [place] [address]CYP [Catalytic activity/Vol]17 U/LNormal0-31ProMedWise Health [facility] Hospital at Parkwayedo HospitalComment on above:Performed By: #### PAZ SANTOYO #### [facility] ([id number]) [address], [address] [place], [place] [address]Iubwn gap [Moles/Vol]10 mmol/LNormal5-15[facility] HospitalComment on above:Performed By: #### GERARDO SANTOYOU #### [facility] ([id number]) [address], [address] [place], [place] [address]OCT [Catalytic activity/Vol]17 U/LNormal0-41[facility] HospitalComment on above:Performed By: #### PAZ SANTOYO #### [facility] ([id number]) [address], [address] [place], [place] [address]Ddniadbtc [Mass/Vol]0.3 mg/dLNormal0.3-1.2[facility] HospitalComment on above:Performed By: #### PAZ SANTOYO #### [facility] ([id number]) [address], [address] [place], [place] [address]Bascyco [Mass/Vol]9.1 mg/dLNormal8.5-10.5[facility] HospitalComment on above:Performed By: #### PAZ SANTOYO #### [facility] ([id number]) [address], [address] [place], [place] [address]Bueudrwx [Moles/Vol]111 mmol/LFwcg65-796XpuLvqffe [facility] HospitalComment on above:Performed By: #### GERARDO SANTOYOU #### [facility] ([id number]) [address], [address] [place], [place] [address]BJ2 [Moles/Vol]23 mmol/MCzvahs90-04JamDvlhtp [facility] Comment on above:Performed By: #### GERARDO SANTOYOU #### [facility] ([id number]) [address], [address] [place], [place] [address]Jcbbjaytuz [Mass/Vol]0.80 mg/dLNormal0.40-1.00ProZanesville City HospitalComment on above:Result Comment: METHOD TRACEABLE TO IDMS STANDARD Performed By: #### PAZ SANTOYO #### [facility] ([id number]) [address], [address] [place], [place] [address]fKUV (CKD-EPI) NON-RACE DEPENDENT>90Normal>59Pro[facility] HospitalComment on above:Result Comment: Reported eGFR is based on the CKD-EPI 2020 equation that does not use a race coefficient.Performed By: #### PAZ SANTOYO #### [facility] ([id number]) [address] [address] [place], [place] [address]Ysxcglb [Mass/Vol]95 mg/uBTevukp84-37ZwrVinumk [facility] Comment on above:Performed By: #### PAZ SANTOYO #### [facility] ([id number]) [address] [address] [place], [place] [address]Kswrdzoxm [Moles/Vol]3.7 mmol/LNormal3.5-5.0ProZanesville City HospitalComment on above:Performed By: #### PAZ SANTOYO #### [facility] ([id number]) [address] [address] [place], [place] [address]Ltxyqzn [Mass/Vol]6.7 g/dLNormal6.0-8.0[facility] Comment on above:Performed By: #### PAZ SANTOYO #### [facility] ([id number]) [address] [address] [place], [place] [address]Yksakd [Moles/Vol]144 mmol/OTjjydx865-184YdlXrqtoe [place] HospitalComment on above:Performed By: #### PAZ SANTOYO #### [facility] ([id number]) [address], [address] [place], [place] [address]Bizu nitrogen [Mass/Vol]18 mg/dLNormal5-23Pro[facility] HospitalComment on above:Performed By: #### PAZ SANTOYO #### [facility] ([id number]) [address], [address] [place], [place] [address]MIL [Catalytic activity/Vol]on 64-41-4492QWJ875 U/ADeymjg551-898 [facility] HospitalComment on above:Performed By: #### PAZ SANTOYO #### [facility] ([id number]) [address], [address] [place], [place] [address]GICL ACIDon 40-67-4621Betug [Mass/Vol]7.3 mg/dLHigh2.6-7.2 Pro[facility]Ohio[facility] HospitalComment on above:Performed By: #### PAZ SANTOYO #### [facility] ([id number]) [address], [address] [place], [place] [address]OEL AND AUTO DIFFon 02-63-9639YABHQWYU BASOPHIL0.0 X10E9/LNormal 0.0-0.2[facility] HospitalComment on above:Performed By: #### PAZ SANTOYO #### [facility] ([id number]) [address], [address] [place], [place] [address]JDJAJAHA ANDSRAQXCY50.0 X10E9/LHigh1.5-6.6Pro[facility] HospitalComment on above:Performed By: #### PAZ SANTOYO #### [facility] ([id number]) [address], [address] [place], [place] [address]Aitubcwhe/100 WBC (Bld)0.2 %NormalProSelect Medical [facility] Comment on above:Performed By: #### PAZ SANTOYO #### [facility] ([id number]) [address], [address] [place], [place] [address]Emxbeakiwvl (Bld) [#/Vol]0.1 10*3/uLNormal0.0-0.4Pro[facility] HospitalComment on above:Performed By: #### GERARDO SANTOYOU #### [facility] ([id number]) [address], [address] [place], [place] [address]Wikemhcktxz/100 WBC (Bld)0.2 %NormalAultman Hospital Comment on above:Performed By: #### YARELIS, GERARDOU #### [facility] ([id number]) [address], [address] [place], [place] [address]Dbswejjxokc distribution width (RBC) [Ratio]13.1 %Normal 11.5-15.0Pro[facility] HospitalComment on above:Performed By: #### GERARDO SANTOYOU #### [facility] ([id number]) [address], [address] [place], [place] [address]Erqaqdtttm (Bld) [Volume fraction]34.3 %Jtk62-12SfgUxqxdh [place] HospitalComment on above:Performed By: #### PAZ SANTOYO #### [facility] ([id number]) [address], [address] [place], [place] [address]Vlmtgquznl (Bld) [Mass/Vol]11.7 g/jUXaacio86.7-15.5PHolmes [facility] HospitalComment on above:Performed By: #### GERARDO SANTOYOU #### [facility] ([id number]) [address], [address] [place], [place] [address]Gpmoadahmkr (Bld) [#/Vol]4.6 10*3/uLHigh1.0-3.5PHolmes County [facility] HospitalComment on above:Performed By: #### YARELIS, GERARDOU #### [facility] ([id number]) [address], [address] [place], [place] [address]Zmiguymjxlb/100 WBC (Bld)22.5 %NormalSouthwest [facility] Health Center [facility] Comment on above:Performed By: #### UPGERARDO INGRAMU #### [facility] ([id number]) [address], [address] [place], [place] [address]QTW (RBC) [Entitic mass]30.3 yaFvliyf42-23WnyJysbec [facility] HospitalComment on above:Performed By: #### UPJUAN JOSE, GERARDOU #### [facility] ([id number]) [address], [address] [place], [place] [address]BZYA (RBC) [Mass/Vol]34.1 g/fEQtedqc33-29EleJmcktl [facility] HospitalComment on above:Performed By: #### GERARDO SANTOYOU #### [facility] ([id number]) [address], [address] [place], [place] [address]HAZ (RBC) [Entitic vol]89 gQVlkwzd72-210WcaWxyqof Jackson HospitalComment on above:Performed By: #### GERARDO SANTOYOU #### [facility] ([id number]) [address], [address] [place], [place] [address]Kltztfbrb (Bld) [#/Vol]1.8 10*3/uLHigh0-0.9[facility] HospitalComment on above:Performed By: #### GERARDO SANTOYOU #### [facility] ([id number]) [address], [address] [place], [place] [address]Xsstimkrt/100 WBC (Bld)9.0 %NormalUniversity Hospitals St. John Medical Centerca [facility] Comment on above:Performed By: #### GERARDO SANTOYOU #### [facility] ([id number]) [address], [address] [place], [place] [address]Oxeufshegnt/100 WBC (Bld)68.1 %NormalUniversity Hospitals St. John Medical Centerca [facility] Comment on above:Performed By: #### UPGERARDO INGRAMU #### [facility] ([id number]) [address], [address] [place] [address]Oewyhhte mean volume (Bld) [Entitic vol]7.9 fLNormal7-12 [facility] HospitalComment on above:Performed By: #### PAZ SANTOYO #### [facility] ([id number]) [address], [address] [place], [place] [address]Vddteyktq (Bld) [#/Vol]352 10*3/pZBdbzst481-130SrhKuwmxs [facility] HospitalComment on above:Performed By: #### PAZ SANTOYO #### [facility] ([id number]) [address], [address] [place], [place] [address]UCF COUNT3.85 X10E12/LNormal3.80-5.20[facility] Comment on above:Performed By: #### PAZ SANTOYO #### [facility] ([id number]) [address], [address] [place] [address]LBR (Bld) [#/Vol]20.5 10*3/uLHigh4.0-11.0[facility] HospitalComment on above:Performed By: #### PAZ SANTOYO #### [facility] ([id number]) [address], [facility] [address] [place], [place] [address]JSKIYLWVEYPEL METABOLIC PANELon 15-29-0922Hrvrloo [Mass/Vol]3.2 g/dLNormal3.2-5.3[facility] HospitalComment on above:Performed By: #### PAZ SANTOYO #### [facility] ([id number]) [address], [address] [place], [place] [address]BXR [Catalytic activity/Vol]58 U/ORazwgf44-857HlkDpstuh [facility] HospitalComment on above:Performed By: #### PAZ SANTOYO #### [facility] ([id number]) [address], [address] [place], [place] [address]QHS [Catalytic activity/Vol]13 U/LNormal0-31[facility] HospitalComment on above:Performed By: #### PAZ SANTOYO #### [facility] ([id number]) [address], [address] [place], [place] [address]Gcfla gap [Moles/Vol]10 mmol/LNormal5-15[facility] HospitalComment on above:Performed By: #### PAZ SANTOYO #### [facility] ([id number]) [address], [address] [place], [place] [address]LQZ [Catalytic activity/Vol]19 U/LNormal0-41[facility] HospitalComment on above:Performed By: #### PAZ SANTOYO #### [facility] ([id number]) [address], [address] [place], [place] [address]Ouylnkzmg [Mass/Vol]0.2 mg/dLLow0.3-1.2PMercy Health [facility] Comment on above:Performed By: #### PAZ SANTOYO #### [facility] ([id number]) [address], [address] [place], [place] [address]Yirkmlq [Mass/Vol]8.1 mg/dLLow8.5-10.5PMercy Health [facility] Comment on above:Performed By: #### PAZ SANTOYO #### [facility] ([id number]) [address], [address] [place], [place] [address]Pfrscxca [Moles/Vol]103 mmol/HLvysng16-599UbpJbabvn [place] HospitalComment on above:Performed By: #### PAZ SANTOYO #### [facility] ([id number]) [address], [address] [place], [place] [address]ZO3 [Moles/Vol]27 mmol/QGkfjjf55-09DzjWmtwxyMercy Health [facility] Hospital Comment on above:Performed By: #### PAZ SANTOYO #### [facility] ([id number]) [address] [address] [place], [place] [address]Khfwsmjyqe [Mass/Vol]0.73 mg/dLNormal0.40-1.00ProZanesville City HospitalComment on above:Result Comment: METHOD TRACEABLE TO IDMS STANDARD Performed By: #### PAZ SANTOYO #### [facility] ([id number]) [address] [address] [place], [place] [address]bPWR (CKD-EPI) NON-RACE DEPENDENT>90Normal>59Pro[facility] HospitalComment on above:Result Comment: Reported eGFR is based on the CKD-EPI 2020 equation that does not use a race coefficient.Performed By: #### PAZ SANTOYO #### [facility] ([id number]) [address] [address] [place], [place] [address]Knprhtx [Mass/Vol]79 mg/rAJhujea53-45WpwUalgmj [facility] Comment on above:Performed By: #### PAZ SANTOYO #### [facility] ([id number]) [address] [address] [place], [place] [address]Paggsjmyg [Moles/Vol]4.1 mmol/LNormal3.5-5.0ProZanesville City HospitalComment on above:Performed By: #### PAZ SANTOYO #### [facility] ([id number]) [address] [address] [place], [place] [address]Qcwgijf [Mass/Vol]5.9 g/dLLow6.0-8.0[facility] Comment on above:Performed By: #### PAZ SANTOYO #### [facility] ([id number]) [address] [address] [place], [place] [address]Lwfdhg [Moles/Vol]140 mmol/QNislqo758-225IrqSqxtuv [place] HospitalComment on above:Performed By: #### PAZ SANTOYO #### [facility] ([id number]) [address], [address] [place], [place] [address]Sjhr nitrogen [Mass/Vol]21 mg/dLNormal5-23[facility] HospitalComment on above:Performed By: #### PAZ SANTOYO #### [facility] ([id number]) [address], [address] [place], [place] [address]EEBPRELIK BLOOD GASon 61-37-9631XDLQK'S TESTNormalProMedica [facility]ano HospitalComment on above:Performed By: #### PAZ SANTOYO #### [facility] ([id number]) [address] [place], [place] [address]TMHU,DEFICIT4.0 MMOL/LHigh0.0-2.0[facility] Comment on above:Performed By: #### PAZ SANTOYO #### [facility] ([id number]) [address] [place], [place] [address]Aljw djixotorvjf90.6 [degF]Yrfrrw59.0[facility] Comment on above:Performed By: #### PAZ SANTOYO #### [facility] ([id number]) [address] [place], [place] [address]OPA8 (Bld) [Moles/Vol]22.3 mmol/WExgfya36.0-24.0[facility] HospitalComment on above:Performed By: #### PAZ SANTOYO #### [facility] ([id number]) [address], [address] [facility] [place] [address]WJVB. O2 CONC.35 %NormalProMedica Jackson HospitalComment on above:Performed By: #### PAZ SANTOYO #### [facility] ([id number]) [address], [address] [place], [place] [address]Jnouyz saturation in Blood37.0 %Low>80.0[facility] HospitalComment on above:Performed By: #### PAZ SANTOYO #### [facility] ([id number]) [address] [place], [place] [address]KSIJCZ SOURCEVentNormalProMedica [facility]ano HospitalComment on above:Performed By: #### GERARDO SANTOYOU #### [facility] ([id number]) [address] [place], [place] [address]FMZ6, SICJDJLQI64.3 FTRRVwcbql94-07ScxObijcd [facility] Comment on above:Performed By: #### GERARDO SANTOYOU #### [facility] ([id number]) [address] [place], [place] [address]YE, CAPILLARY7.335Hsizqf3.330-7.490[facility] Comment on above:Performed By: #### GERARDO SANTOYOU #### [facility] ([id number]) [address], [address] [place], [place] [address]HZ1, IWVTEEVQV49 ZKOIEog82-01IakHdodrf [facility] HospitalComment on above:Performed By: #### PAZ SANTOYO #### [facility] ([id number]) [address] [place], [place] [address]VUSTHC SITERHeelNormalProMedica [facility]ano HospitalComment on above: Performed By: #### GERARDO SANTOYOU #### [facility] ([id number]) [address], [address] [place], [place] [address]AHGBSC TYPECAPILLARYNormalProMedica [facility] HospitalComment on above:Performed By: #### PAZ SANTOYO #### [facility] ([id number]) [address], [address] [place], [place] [address]TTX AND AUTO DIFFon 33-68-0598Oxpl form neutrophils/100 WBC (Bld)1.0 %NormalProMedica [facility]ano HospitalComment on above:Performed By: #### GERARDO SANTOYOU #### [facility] ([id number]) [address], [address] [place], [place] [address]Xgoenxsyfui distribution width (RBC) [Ratio]13.4 %Normal 11.5-15.0ProPremier Health [facility] Hospital Southca Jackson HospitalComment on above:Performed By: #### PAZ SANTOYO #### [facility] ([id number]) [address], [address] [place], [place] [address]Rhapohdlye (Bld) [Volume fraction]35.2 %Lumgzu24-94DfvHmjpxu [facility] HospitalComment on above:Performed By: #### PAZ SANTOYO #### [facility] ([id number]) [address], [facility] [address] [place], [place] [address]Qkvtujmfad (Bld) [Mass/Vol]12.2 g/pZHayiih36.7-15.5[facility] HospitalComment on above:Performed By: #### PAZ SANTOYO #### [facility] ([id number]) [address], [address] [place], [place] [address]Ueffkggqbuw (Bld) [#/Vol]4.0 10*3/uLHigh1.0-3.5ProMedFulton County Health Center HospitalComment on above:Performed By: #### PAZ SANTOYO #### [facility] ([id number]) [address], [address] [place], [place] [address]Tubrwelfrdi/100 WBC (Bld)16.0 %NormalProSelect Medical [facility] Comment on above:Performed By: #### PAZ SANTOYO #### [facility] ([id number]) [address] [address] [place], [place] [address]AVP (RBC) [Entitic mass]30.7 swPrqzqw62-07NldHdbpxj [facility] HospitalComment on above:Performed By: #### PAZ SANTOYO #### [facility] ([id number]) [address], [address] [place], [place] [address]ANAQ (RBC) [Mass/Vol]34.6 g/iOYycwin69-76IxyXrrobb [facility] HospitalComment on above:Performed By: #### PAZ SANTOYO #### [facility] ([id number]) [address], [address] [place], [place] [address]ODI (RBC) [Entitic vol]89 cKLgfwrx84-213RgcObgmdn [facility] HospitalComment on above:Performed By: #### PAZ SANTOYO #### [facility] ([id number]) [address], [address] [place], [place] [address]Hpekixxlm (Bld) [#/Vol]1.3 10*3/uLHigh0-0.9[facility] HospitalComment on above:Performed By: #### PAZ SANTOYO #### [facility] ([id number]) [address], [address] [place], [place] [address]Mdtnshvcu/100 WBC (Bld)5.0 %NormalProPremier Health [facility] Southca [facility] Comment on above:Performed By: #### PAZ SANTOYO #### [facility] ([id number]) [address], [address] [place], [place] [address]Zmcmemrnjxz (Bld) [#/Vol]19.9 10*3/uLHigh1.5-6.6[facility] HospitalComment on above:Performed By: #### PAZ SANTOYO #### [facility] ([id number]) [address], [address] [place], [place] [address]Ftxmghkb mean volume (Bld) [Entitic vol]8.0 fLNormal7-12 [facility] HospitalComment on above:Performed By: #### PAZ SANTOYO #### [facility] ([id number]) [address], [address] [place], [place] [address]Pgccdrdli (Bld) [#/Vol]375 10*3/lHHapyev520-691VztAmvnbj [facility] HospitalComment on above:Performed By: #### GERARDO SANTOYOU #### [facility] ([id number]) [address], [address] [place], [place] [address]ZJX COUNT3.97 X10E12/LNormal3.80-5.20[facility] Comment on above:Performed By: #### GERARDO SANTOYOU #### [facility] ([id number]) [address], [address] [place], [place] [address]ZRB morphology finding Nom (Bld)NORMALNormalProMedica [facility]ano HospitalComment on above:Performed By: #### PAZ SANTOYO #### [facility] ([id number]) [address], [address] [place], [place] [address]YQH FCCGIPZXRZ47.0 %NormalProMedica [facility]ano HospitalComment on above:Performed By: #### PAZ SANTOYO #### [facility] ([id number]) [address], [address] [place], [place] [address]JRH (Bld) [#/Vol]25.2 10*3/uLHigh4.0-11.0[facility] HospitalComment on above:Performed By: #### PAZ SANTOYO #### [facility] ([id number]) [address], [address] [place], [place] [address]JPPEYFWFOPFCK METABOLIC PANELon 60-31-0109Stkpeqb [Mass/Vol]3.3 g/dLNormal3.2-5.3[facility] HospitalComment on above:Performed By: #### GERARDO SANTOYOU #### [facility] ([id number]) [address], [address] [place], [place] [address]LSD [Catalytic activity/Vol]74 U/MLrjxvb47-456LiyFzvtii [facility] HospitalComment on above:Performed By: #### PAZ SANTOYO #### [facility] ([id number]) [address], [address] [place], [place] [address]OCA [Catalytic activity/Vol]16 U/LNormal0-31[facility] HospitalComment on above:Performed By: #### PAZ SANTOYO #### [facility] ([id number]) [address], [address] [place], [place] [address]Nmedh gap [Moles/Vol]12 mmol/LNormal5-15[facility] HospitalComment on above:Performed By: #### PAZ SANTOYO #### [facility] ([id number]) [address], [address] [place], [place] [address]LZR [Catalytic activity/Vol]20 U/LNormal0-41[facility] HospitalComment on above:Performed By: #### PAZ SANTOYO #### [facility] ([id number]) [address] [place], [place] [address]Wkoqmbzxe [Mass/Vol]0.2 mg/dLLow0.3-1.2PMercy [facility] Comment on above:Performed By: #### PAZ SANTOYO #### [facility] ([id number]) [address] [place], [place] [address]Ftduxtq [Mass/Vol]7.6 mg/dLLow8.5-10.5PMercy [facility] Comment on above:Performed By: #### PAZ SANTOYO #### [facility] ([id number]) [address], [address] [place], [place] [address]Wbrizvsj [Moles/Vol]100 mmol/ZYwddgq39-293BcwKchzus [place] HospitalComment on above:Performed By: #### PAZ SANTOYO #### [facility] ([id number]) [address], [address] [place], [place] [address]NJ9 [Moles/Vol]24 mmol/CCwxvfl01-47HwxQstqzv [place] [facility] Comment on above:Performed By: #### PAZ SANTOYO #### [facility] ([id number]) [address] [address] [place], [place] [address]Bpgpywxkzn [Mass/Vol]0.71 mg/dLNormal0.40-1.00[facility] HospitalComment on above:Result Comment: METHOD TRACEABLE TO IDMS STANDARD Performed By: #### PAZ SANTOYO #### [facility] ([id number]) [address], [address] [place], [place] [address]wEKV (CKD-EPI) NON-RACE DEPENDENT>90Normal>59ProZanesville City HospitalComment on above:Result Comment: Reported eGFR is based on the CKD-EPI 2020 equation that does not use a race coefficient.Performed By: #### PAZ SANTOYO #### [facility] ([id number]) [address], [address] [place], [place] [address]Vtwjshp [Mass/Vol]101 mg/oKLbfw94-47UmhPwquqjAultman Hospital Comment on above:Performed By: #### PAZ SANTOYO #### [facility] ([id number]) [address], [address] [place], [place] [address]Upmnthwcw [Moles/Vol]3.9 mmol/LNormal3.5-5.0[facility] HospitalComment on above:Performed By: #### PAZ SANTOYO #### [facility] ([id number]) [address] [address] [place], [place] [address]Gxzusbj [Mass/Vol]6.3 g/dLNormal6.0-8.0[facility] Comment on above:Performed By: #### PAZ SANTOYO #### [facility] ([id number]) [address], [address] [place], [place] [address]Dnckps [Moles/Vol]136 mmol/UTqupxh360-136MkyNfgxuu [place] HospitalComment on above:Performed By: #### GERARDO SANTOYOU #### [facility] ([id number]) [address], [address] [place], [place] [address]Xwtt nitrogen [Mass/Vol]13 mg/dLNormal5-23[facility] [place] HospitalComment on above:Performed By: #### GERARDO SANTOYOU #### [facility] ([id number]) [address], [address] [place], [place] [address]Biakykm [Mass/Vol]3.3 g/dLNormal3.2-5.3[facility] [place] [facility] Comment on above:Performed By: #### GERARDO SANTOYOU #### [facility] ([id number]) [address], [address] [place], [place] [address]EJG [Catalytic activity/Vol]74 U/XInssqq19-233HpwVukbva [place] HospitalComment on above:Performed By: #### PAZ SANTOYO #### [facility] ([id number]) [address], [address] [place], [place] [address]TFP [Catalytic activity/Vol]19 U/LNormal0-31[facility] [place] HospitalComment on above:Performed By: #### GERARDO SANTOYOU #### [facility] ([id number]) [address], [address] [place], [place] [address]Hczcc gap [Moles/Vol]13 mmol/LNormal5-15[facility] [place] HospitalComment on above:Performed By: #### GERARDO SANTOYOU #### [facility] ([id number]) [address], [address] [place], [place] [address]CXO [Catalytic activity/Vol]24 U/LNormal0-41[facility] [place] HospitalComment on above:Performed By: #### GERARDO SANTOYOU #### [facility] ([id number]) [address], [address] [place], [place] [address]Tdkracwho [Mass/Vol]0.3 mg/dLNormal0.3-1.2PMercy Health Perrysburg HospitalComment on above:Performed By: #### PAZ SANTOYO #### [facility] ([id number]) [address], [address] [place], [place] [address]Flzzdol [Mass/Vol]8.1 mg/dLLow8.5-10.5PMercy Health Perrysburg Hospital Comment on above:Performed By: #### GERARDO SANTOYOU #### [facility] ([id number]) [address], [address] [place], [place] [address]Ksgitxdf [Moles/Vol]102 mmol/YQmrkym04-281EggUtmdik [place] HospitalComment on above:Performed By: #### GERARDO SANTOYOU #### [facility] ([id number]) [address], [address] [place], [place] [address]BU5 [Moles/Vol]22 mmol/SVfvaej31-55FvzWthsrhMercy Health Perrysburg Hospital Comment on above:Performed By: #### PAZ SANTOYO #### [facility] ([id number]) [address] [address] [place], [place] [address]Vzojqergct [Mass/Vol]0.78 mg/dLNormal0.40-1.00ProZanesville City HospitalComment on above:Result Comment: METHOD TRACEABLE TO IDMS STANDARD Performed By: #### GERARDO SANTOYOU #### [facility] ([id number]) [address], [address] [place], [place] [address]hYYN (CKD-EPI) NON-RACE DEPENDENT>90Normal>59ProZanesville City HospitalComment on above:Result Comment: Reported eGFR is based on the CKD-EPI 2020 equation that does not use a race coefficient.Performed By: #### GERARDO SANTOYOU #### [facility] ([id number]) [address], [address] [place], [place] [address]Whoyluc [Mass/Vol]118 mg/uWOisi77-52BhnAnsldyZanesville City Hospital Comment on above:Performed By: #### PAZ SANTOYO #### [facility] ([id number]) [address], [address] [place], [place] [address]Surpjogrb [Moles/Vol]4.2 mmol/LNormal3.5-5.0ProPremier Health [facility] Hospital Southca Jackson HospitalComment on above:Performed By: #### GERARDO SANTOYOU #### [facility] ([id number]) [address], [address] [place], [place] [address]Fefqwkc [Mass/Vol]6.2 g/dLNormal6.0-8.0ProZanesville City Hospital Comment on above:Performed By: #### PAZ SANTOYO #### [facility] ([id number]) [address], [address] [place], [place] [address]Liofks [Moles/Vol]137 mmol/AFbyzoq087-288KtqDnlwag [place] HospitalComment on above:Performed By: #### PAZ SANTOYO #### [facility] ([id number]) [address], [address] [place], [place] [address]Czad nitrogen [Mass/Vol]16 mg/dLNormal5-23ProSelect [facility], [facility] HospitalComment on above:Performed By: #### GERARDO SANTOYOU #### [facility] ([id number]) [address], [address] [place], [place] [address]HAXN ARTERIAL GASon 58-85-4924UKGKD'S TESTNormalProPremier Health [facility] Hospital Southca Jackson HospitalComment on above:Performed By: #### NATHAN, 5124-3, 87764-9, 21281-9, 56126-5 #### [facility] ([id number]) [address], [address] [place], [place] [address]PPSB,DEFICIT5.0 MMOL/LHigh0.0-2.0ProZanesville City Hospital Comment on above:Performed By: #### NATHAN, 5124-3, 75846-0, 08413-0, 69197-7 #### [facility] ([id number]) [address], [address] [place], [place] [address]LIB3 (Bld) [Moles/Vol]20.2 mmol/EXws03-63ZtzIpmntu [place] HospitalComment on above:Performed By: #### NATHAN, 5124-3, 39344-1, 99596-9, 79267-0 #### [facility] ([id number]) [address], [address] [place], [place] [address]Jdmdny (Bld) [Partial pressure]21 mm[Hg]Econps68-80FacVhobmt [place] HospitalComment on above:Performed By: #### NATHAN, 5124-3, 30808-7, 04879- 5, 67635-3 #### [facility] ([id number]) [address], [address] [place], [place] [address]Gnxlli saturation in Blood30.0 %Normal7.1-39.5Pro[facility] [place] HospitalComment on above:Performed By: #### NATHAN, 5124-3, 89363-1, 25042-7, 38964-9 #### [facility] ([id number]) [address], [address] [place], [place] [address]DZDCKT SOURCERoomAirNormalProMedica [place] HospitalComment on above:Performed By: #### NATHAN, 5124-3, 18631-4, 78624-8, 30382-4 #### [facility] ([id number]) [address], [address] [place], [place] [address]URR677.1 DYRHGsy90.8-57.6[facility] [place] HospitalComment on above:Performed By: #### NATHAN, 5124-3, 67736-7, 58632-5, 79979-0 #### [facility] ([id number]) [address], [address] [place], [place] [address]eZ (Bld)7.321 [pH]High7.24-7.30[facility] [place] HospitalComment on above:Performed By: #### NATHAN, 5124-3, 81804-0, 46782-2, 97016-8 #### [facility] ([id number]) [address], [address] [place], [place] [address]BGSVAS SITEArtCordNormalProMedica [place] HospitalComment on above:Performed By: #### NATHAN, 5124-3, 75466-6, 05080-2, 45673-7 #### [facility] ([id number]) [address], [address] [place], [place] [address]AZWBUX TYPEUMBILICALCORDNormalProMedica [place]ano HospitalComment on above:Performed By: #### NATHAN, 5124-3, 78945-9, 08414-5, 20984-4 #### [facility] ([id number]) [address], [address] [place], [place] [address]IWBP VENOUS GASon 94-62-3741UZRPN'S TESTNormalProMedica [place] HospitalComment on above:Performed By: #### NATHAN, 5124-3, 72697-4, 76386-7, 84059-6 #### [facility] ([id number]) [address], [address] [place], [place] [address]CGSW,DEFICIT4.0 MMOL/LHigh0.0-2.0[facility] [place] [facility] Comment on above:Performed By: #### NATHAN, 5124-3, 20291-6, 26262-9, 22463-2 #### [facility] ([id number]) [address], [address] [place], [place] [address]ENV7 (Bld) [Moles/Vol]22.3 mmol/POlatlb02.0-24.0[facility] [place] HospitalComment on above:Performed By: #### NATHAN, 5124-3, 63757-1, 54434-9, 13636-6 #### [facility] ([id number]) [address], [address] [place], [place] [address]Jkxeql (Bld) [Partial pressure]17 mm[Hg]Fpm89-12YbzIotiiu [place] HospitalComment on above:Performed By: #### NATHAN, 5124-3, 22330-0, 73285-3, 74732-2 #### [facility] ([id number]) [address], [address] [place], [place] [address]Pecior saturation in Blood20.0 %Low32.5-66.3[facility] [place] HospitalComment on above:Performed By: #### NATHAN, 5124-3, 17100-4, 84961-3, 24236-7 #### [facility] ([id number]) [address], [address] [place], [place] [address]LCSLCX SOURCERoomAirNormalProPremier Health [facility] Southca Jackson HospitalComment on above:Performed By: #### NATHAN, 5124-3, 84020-3, 22895-6, 87525-6 #### [facility] ([id number]) [address], [address] [place], [place] [address]GKT223.8 TMGOLzqfqa32.6-43.8ProPremier Health [facility] Southca Jackson HospitalComment on above:Performed By: #### NATHAN, 5124-3, 03478-6, 69605-9, 67059-5 #### [facility] ([id number]) [address], [address] [place], [place] [address]lC (Bld)7.315 [pH]Normal7.25-7.37[facility] [place] [facility] Comment on above:Performed By: #### NATHAN, 5124-3, 84096-5, 37207-0, 63530-0 #### [facility] ([id number]) [address], [address] [place], [place] [address]YQJTFB SITEVenCordNormalProZanesville City HospitalComment on above:Performed By: #### NATHAN, 5124-3, 49907-9, 55419-6, 16604-6 #### [facility] ([id number]) [address] [place] [address], [address] [place], [place] [address]MZPRXY TYPEUMBILICALCORDNormalProSelect Medical [facility], [facility] HospitalComment on above:Performed By: #### NATHAN, 5124-3, 84717-6, 75032-0, 83369-2 #### [facility] ([id number]) [address], [address] [place], [place] [address]Clfmpdmh Pathologyon 67-78-2342Tjlrwcpg PathologyPremier Health Upper Valley Medical CenterComment on above:Result Comment: [facility] [address] [place] [address] Surgical Pathology Consultation Patient Name:SISI MORA:1995 (Age: 28)Gender:FTaken:4Reported:10/14/2023hysician(s):Sue Holland M.D. ([id number])Copy To: Rec. #:[id number]: #1 [id number] Final Pathologic Diagnosis Bilateral fallopian tubes: Benign fallopian tubes. Report Electronically Signed Out cjb/4Cbritany Cifuentes MD Interpretation performed at [facility], [address] [place] [address], License number: [id number]. Clinical History Pre-eclampsia with severe features. Gross [...] (inked tube) is submitted in cassette A, business banking representative cross-sections of fallopian tube (inked) in cassette B, perpendicularlysectioned fimbria (uninked tube) in cassette C, and business banking representative cross-sections of fallopian tube(uninked) in cassette D. (4, ss, [id number], m1) SHIV finney/10/12/2023GR Specimen(s) Received Right and left fallopian tubes Fee Codes(s): 1; 71106HDSL-8 GP1 AB PANELon 40-41-2671QVBT-2 GP1 IgA<2.5Bxviwe4.0-19.9 [facility] HospitalComment on above:Performed By: #### NATHAN, 5124-3, 81571- 0, 81411-3, 11589-2 #### [facility] ([id number]) [address], [address] [place], [place] [address]UOJG-8 GP1 IgG<1.7Xjampb1.0-19.9[facility] HospitalComment on above:Performed By: #### NATHAN, 5124-3, 35695-2, 71436-6, 69279-4 #### [facility] ([id number]) [address], [address] [place], [place] [address]GVJP-4 GP1 IgM<1.8Xafmgm3.0-19.9[facility] [place] HospitalComment on above:Performed By: #### NATHAN, 5124-3, 86237-0, 73311-3, 82151-0 #### [facility] ([id number]) [address], [address] [place], [place] [address]NPD AND AUTO DIFFon 36-35-8247EYGQWGAM BASOPHIL0.3 X10E9/LHigh 0.0-0.2[facility] HospitalComment on above:Performed By: #### NATHAN, 5124-3, 35808-6, 89498-9, 27875-3 #### [facility] ([id number]) [address], [address] [place], [place] [address]SDXIETHX QSXXONCIEN18.1 X10E9/LHigh1.5-6.6ProSelect [facility], [facility] HospitalComment on above:Performed By: #### NATHAN, 5124-3, 17087-2, 68445-0, 61281-6 #### [facility] ([id number]) [address], [address] [place], [place] [address]Hssqhfnty/100 WBC (Bld)1.5 %NormalAultman Hospital Comment on above:Performed By: #### NATHAN, 5124-3, 33760-9, 58940-6, 26657-6 #### [facility] ([id number]) [address], [address] [place], [place] [address]Wjqevhznhsb (Bld) [#/Vol]0.0 10*3/uLNormal0.0-0.4ProSelect [facility], [facility] HospitalComment on above:Performed By: #### NATHAN, 5124-3, 33015-7, 17221- 5, 21004-2 #### [facility] ([id number]) [address], [address] [place], [place] [address]Keemstqwzdt/100 WBC (Bld)0.1 %NormalProZanesville City Hospital Comment on above:Performed By: #### NATHAN, 5124-3, 43583-5, 54219-7, 86587-7 #### [facility] ([id number]) [address], [address] [place], [place] [address]Lhvlubdiwnw distribution width (RBC) [Ratio]12.7 %Normal 11.5-15.0ProZanesville City HospitalComment on above:Performed By: #### NATHAN, 5124- 3, 88581-7, 28351-2, 42453-0 #### [facility] ([id number]) [address], [address] [place], [place] [address]Ucpihiucbp (Bld) [Volume fraction]38.4 %Ccfvxq09-21HxcVpegcq [place] HospitalComment on above:Performed By: #### NATHAN, 5124-3, 39207-7, 99521- 5, 50786-8 #### [facility] ([id number]) [address], [address] [place] [address]Foujzegsgr (Bld) [Mass/Vol]12.9 g/bRNctqjb26.7-15.5ProMedFulton County Health Center HospitalComment on above:Performed By: #### NATHAN, 5124-3, 87744-2, 18859- 5, 15696-6 #### [facility] ([id number]) [address], [address] [place], [place] [address]Bctgwsmybsf (Bld) [#/Vol]3.7 10*3/uLHigh1.0-3.5PHolmes County Joel [facility]rene [facility] Hospital HospitalComment on above:Performed By: #### NATHAN, 5124-3, 91705-2, 53588-9, 87042-1 #### [facility] ([id number]) [address], [address] [place], [place] [address]Fjnnfybkkct/100 WBC (Bld)18.7 %NormalProSelect Medical [facility], [facility] Hospital Comment on above:Performed By: #### NATHAN, 5124-3, 04004-2, 28576-5, 01459-6 #### [facility] ([id number]) [address], [address] [place], [place] [address]RDR (RBC) [Entitic mass]30.1 tgQkarll78-83QixLlevye [place] HospitalComment on above:Performed By: #### NATHAN, 5124-3, 62471-5, 71596-2, 21921-9 #### [facility] ([id number]) [address], [address] [place], [place] [address]BDHK (RBC) [Mass/Vol]33.7 g/yJNifmhd10-01XpqWgqmel Jackson HospitalComment on above:Performed By: #### NATHAN, 5124-3, 43633-1, 95811-6, 18265-4 #### [facility] ([id number]) [address], [address] [place], [place] [address]SKS (RBC) [Entitic vol]89 cLBnmznk48-108MzkMotpwc [place] HospitalComment on above:Performed By: #### NATHAN, 5124-3, 78122-8, 28095-0, 70534-2 #### [facility] ([id number]) [address], [address] [place], [place] [address]Vhxqqypsg (Bld) [#/Vol]0.6 10*3/uLNormal0-0.9ProSelect [facility], [facility] HospitalComment on above:Performed By: #### NATHAN, 5124-3, 76419-0, 63168-5, 14220-0 #### [facility] ([id number]) [address], [address] [place], [place] [address]Tqlbdvtkg/100 WBC (Bld)3.1 %NormalAultman Hospital Comment on above:Performed By: #### NATHAN, 5124-3, 42277-1, 95299-0, 75019-0 #### [facility] ([id number]) [address], [address] [place], [place] [address]Chtgvwbucec/100 WBC (Bld)76.6 %NormalAultman Hospital Comment on above:Performed By: #### NATHAN, 5124-3, 38772-9, 67493-9, 27649-2 #### [facility] ([id number]) [address], [address] [place], [place] [address]Hgwrtziq mean volume (Bld) [Entitic vol]8.2 fLNormal7-12 [facility] HospitalComment on above:Performed By: #### NATHAN, 5124-3, 78452- 0, 79359-7, 00429-3 #### [facility] ([id number]) [address], [address] [place], [place] [address]Luhzeeppx (Bld) [#/Vol]434 10*3/cADxrkmv587-830CjhEkvngm Jackson HospitalComment on above:Performed By: #### NATHAN, 5124-3, 41857-1, 23990-3, 68043-3 #### [facility] ([id number]) [address], [address] [place], [place] [address]HAL COUNT4.30 X10E12/LNormal3.80-5.20Pro[facility] Comment on above:Performed By: #### NATHAN, 5124-3, 09743-0, 28047-4, 45950-2 #### [facility] ([id number]) [address], [address] [place], [place] [address]TPU (Bld) [#/Vol]19.7 10*3/uLHigh4.0-11.0ProPremier Health [facility] Southca Jackson HospitalComment on above:Performed By: #### NATHAN, 5124-3, 45350-3, 19087-6, 46594-1 #### [facility] ([id number]) [address], [address] [place], [place] [address]MVJTIXHI BLOOD COUNTon 34-68-0523Eioovxhvebl distribution width (RBC) [Ratio]13.0 %Ofuqbn96.5-15.0ProSelect [facility], [facility] HospitalComment on above: Performed By: #### NATHAN, 5124-3, 94979-0, 07285-7, 40449-1 #### [facility] ([id number]) [address], [address] [place], [place] [address]Rudpnifcie (Bld) [Volume fraction]38.0 %Ntnxua19-21WkgBgsqim Jackson HospitalComment on above:Performed By: #### NATHAN, 5124-3, 60985-2, 02315- 5, 31666-2 #### [facility] ([id number]) [address], [address] [place], [place] [address]Xmifsfyein (Bld) [Mass/Vol]12.9 g/wHVoanpc34.7-15.5[facility] [place] HospitalComment on above:Performed By: #### NATHAN, 5124-3, 64218-6, 21797- 5, 46403-4 #### [facility] ([id number]) [address], [address] [place], [place] [address]AJD (RBC) [Entitic mass]30.2 hmWetcew58-05UnuAfbwpi [place] HospitalComment on above:Performed By: #### NATHAN, 5124-3, 39155-0, 34081-0, 04373-7 #### [facility] ([id number]) [address], [address] [place], [place] [address]AWZX (RBC) [Mass/Vol]34.0 g/iUMxwbsj18-90PglGhybts [facility] HospitalComment on above:Performed By: #### NATHAN, 5124-3, 92630-4, 90616-9, 69040-0 #### [facility] ([id number]) [address], [address] [place], [place] [address]HRE (RBC) [Entitic vol]89 lWEdxart55-304DuxOfzvya [facility] HospitalComment on above:Performed By: #### NATHAN, 5124-3, 39270-3, 19410-9, 42033-3 #### [facility] ([id number]) [address], [address] [place], [place] [address]Dpdbvnca mean volume (Bld) [Entitic vol]8.2 fLNormal7-12 [facility] HospitalComment on above:Performed By: #### NATHAN, 5124-3, 61324- 0, 91773-3, 31730-8 #### [facility] ([id number]) [address], [address] [place], [place] [address]Elozdxgiq (Bld) [#/Vol]410 10*3/aZZwlrmg516-624ReeLobkii [facility] HospitalComment on above:Performed By: #### NATHAN, 5124-3, 21799-9, 64368-4, 16087-7 #### [facility] ([id number]) [address], [address] [place], [place] [address]IPG COUNT4.28 X10E12/LNormal3.80-5.20[facility] [facility] Comment on above:Performed By: #### NATHAN, 5124-3, 46680-2, 86515-7, 58204-6 #### [facility] ([id number]) [address], [address] [place], [place] [address]IRE (Bld) [#/Vol]19.3 10*3/uLHigh4.0-11.0[facility] HospitalComment on above:Performed By: #### NATHAN, 5124-3, 35918-7, 78165-6, 22695-3 #### [facility] ([id number]) [address], [address] [place], [place] [address]NGOOVEPZWYGYV METABOLIC PANELon 89-52-6188Ilojkxo [Mass/Vol]3.6 g/dLNormal3.2-5.3[facility] HospitalComment on above:Performed By: #### NATHAN, 5124-3, 53361-7, 40711-7, 01579-6 #### [facility] ([id number]) [address], [address] [place], [place] [address]QXY [Catalytic activity/Vol]95 U/TQpjprd57-909WhrBgabcc [facility] HospitalComment on above:Performed By: #### NATHAN, 5124-3, 70374-7, 46376-9, 25597-8 #### [facility] ([id number]) [address], [address] [place], [place] [address]ULE [Catalytic activity/Vol]23 U/LNormal0-31ProMedFulton County Health Center HospitalComment on above:Performed By: #### NATHAN, 5124-3, 61666-4, 95027-7, 71329-9 #### [facility] ([id number]) [address], [address] [place], [place] [address]Ptslv gap [Moles/Vol]15 mmol/LNormal5-15[facility] [place] HospitalComment on above:Performed By: #### NATHAN, 5124-3, 45246-3, 18793-8, 40933-7 #### [facility] ([id number]) [address], [address] [place], [place] [address]KBT [Catalytic activity/Vol]24 U/LNormal0-41Pro[facility] HospitalComment on above:Performed By: #### NATHAN, 5124-3, 41060-8, 21672-9, 18807-5 #### [facility] ([id number]) [address], [address] [place], [place] [address]Qadmqstep [Mass/Vol]0.2 mg/dLLow0.3-1.2PHolmes County [facility] Hospital Comment on above:Performed By: #### NATHAN, 5124-3, 48873-1, 56928-4, 11116-1 #### [facility] ([id number]) [address], [address] [place], [place] [address]Zqnhtkk [Mass/Vol]9.3 mg/dLNormal8.5-10.5PHolmes County Joel [facility]omerene [facility] HospitalComment on above:Performed By: #### NATHAN, 5124-3, 55806-2, 82658-6, 11866-2 #### [facility] ([id number]) [address], [address] [place], [place] [address]Acplcujf [Moles/Vol]103 mmol/HBmelfe96-786ShcJzyzam [facility] HospitalComment on above:Performed By: #### NATHAN, 5124-3, 78638-2, 03376-9, 58520-9 #### [facility] ([id number]) [address], [address] [place], [place] [address]AS1 [Moles/Vol]19 mmol/ZYtw16-44XhyQjvnlcMary Rutan HospitalComment on above:Performed By: #### NATHAN, 5124-3, 05164-5, 61867-3, 03177-4 #### [facility] ([id number]) [address], [address] [place], [place] [address]Pvauurrgyv [Mass/Vol]0.71 mg/dLNormal0.40-1.00ProZanesville City HospitalComment on above:Result Comment: METHOD TRACEABLE TO IDMS STANDARD Performed By: #### NATHAN, 5124-3, 75561-1, 47272-4, 92947-6 #### [facility] ([id number]) [address], [address] [place], [place] [address]qAQC (CKD-EPI) NON-RACE DEPENDENT>90Normal>59ProZanesville City HospitalComment on above:Result Comment: Reported eGFR is based on the CKD-EPI 2021 equation that does not use a race coefficient.Performed By: #### NATHAN, 5124-3, 83442-6, 29765-9, 18993-8 #### [facility] ([id number]) [address], [address] [place], [place] [address]Hujwxfp [Mass/Vol]122 mg/qYFfrm31-81QmoBhbldvZanesville City Hospital Comment on above:Performed By: #### NATHAN, 5124-3, 28288-9, 67342-7, 50161-9 #### [facility] ([id number]) [address], [address] [place], [place] [address]Lgjnpvkgq [Moles/Vol]4.0 mmol/LNormal3.5-5.0ProZanesville City HospitalComment on above:Performed By: #### NATHAN, 5124-3, 27157-1, 00412-2, 18524-5 #### [facility] ([id number]) [address], [address] [place], [place] [address]Rynfard [Mass/Vol]7.0 g/dLNormal6.0-8.0[facility] Comment on above:Performed By: #### NATHAN, 5124-3, 53154-5, 40944-5, 16716-3 #### [facility] ([id number]) [address] [facility] [place], [place] [address]Zzovrk [Moles/Vol]137 mmol/XYixvvh602-913OhbWukrty Toledo HospitalComment on above:Performed By: #### NATHAN, 5124-3, 45729-7, 61353-6, 89791-7 #### [facility] ([id number]) [address] [facility] [address] [facility] [facility] [place], [place] [address]Wcna nitrogen [Mass/Vol]20 mg/dLNormal5-23ProZanesville City HospitalComment on above:Performed By: #### NATHAN, 5124-3, 72525-1, 88445-2, 95541-7 #### [facility] ([id number]) [address] [facility] [address] [facility] [place], [place] [address]Iezwowtx Pathologyon 10-49-0249Yltasoyh PathologyNormalProZanesville City HospitalComment on above:Result Comment: [facility] [address] [place] [address] Surgical Pathology Consultation Patient Name:SISI MORA:1995 (Age: 28)Gender:FTaken:4Reported:4Physician(s):Sue Holland M.D. ([id number])Copy To:Jak Anaya [facility] Medical Centeression #:[id number]. Rec. #:[id number]: #[id number] Final Pathologic Diagnosis Placenta: small for gestational age third trimester placenta (193 g, <10th percentile for gestational age of 30 weeks), demonstrating focal placental infarcts, incomplete adaptation for (maternal decidual vasculopathy) and increased syncytial knots. Negative membranes. Unremarkable three-vessel umbilical cord with eccentric insertion. Report Electronically Signed Out ao/10/27/2023celine Steward MD Interpret[place] [address], License number: [id number]. Clinical History Pre-eclampsia severe, with delivery. Gross Description Received in formalin labeled PALMER, placenta : Single MEMBRANES: Placenta Sac Rupture [...] Rolled membrane, two sections of cord [employer] sections of placenta (to include rubbery areas in cassette C???D) E Additional rolled membrane (5, ss, [id number],A-E, m5) BALDEMAR canales/10/21/2023O Specimen(s) Received Placenta Fee Codes(s): 1; [address]YXF AND AUTO DIFFon 44-62-6139OYJOGPED BASOPHIL0.1 X10E9/LNormal0.0-0.2 [facility] HospitalComment on above:Performed By: #### NATHAN, 5124-3, 57067- 0, 81475-6, 89622-4 #### [facility] ([id number]) [address], [address] [place], [place] [address]FSYOOCVK NEUTROPHIL9.6 X10E9/LHigh1.5-6.6ProPrem[facility] Southca Jackson HospitalComment on above:Performed By: #### NATHAN, 5124-3, 71894-1, 63759-4, 02516-5 #### [facility] ([id number]) [address], [address] [place], [place] [address]Iladtyzdo/100 WBC (Bld)0.7 %NormalAultman Hospital Comment on above:Performed By: #### NATHAN, 5124-3, 72274-3, 04447-7, 23805-2 #### [facility] ([id number]) [address], [address] [place], [place] [address]Zinlwizbfrn (Bld) [#/Vol]0.2 10*3/uLNormal0.0-0.4Pro[facility], [facility] HospitalComment on above:Performed By: #### NATHAN, 5124-3, 01460-5, 71317- 5, 64074-0 #### [facility] ([id number]) [address], [address] [place], [place] [address]Dxqihnucckt/100 WBC (Bld)1.5 %NormalAultman Hospital Comment on above:Performed By: #### NATHAN, 5124-3, 63734-0, 71336-1, 20838-6 #### [facility] ([id number]) [address], [address] [place], [place] [address]Opwbizhjvul distribution width (RBC) [Ratio]12.9 %Normal 11.5-15.0Pro[facility], [facility] HospitalComment on above:Performed By: #### NATHAN, 5124- 3, 96587-7, 79749-4, 31158-9 #### [facility] ([id number]) [address], [address] [place], [place] [address]Pgyqtooaoo (Bld) [Volume fraction]38.9 %Kohnos49-46OxpWcarob [place] HospitalComment on above:Performed By: #### NATHAN, 5124-3, 69339-9, 81776- 5, 31247-7 #### [facility] ([id number]) [address], [address] [place], [place] [address]Ejitpsuupn (Bld) [Mass/Vol]13.1 g/fVUfbsgk99.7-15.5ProMedFulton County Health Center HospitalComment on above:Performed By: #### NATHAN, 5124-3, 26001-8, 98411- 5, 26490-5 #### [facility] ([id number]) [address], [address] [place], [place] [address]Palmzeenemz (Bld) [#/Vol]4.8 10*3/uLHigh1.0-3.5ProMedFulton County Health Center HospitalComment on above:Performed By: #### NATHAN, 5124-3, 74123-2, 60383-3, 01435-1 #### [facility] ([id number]) [address], [address] [place], [place] [address]Hepgvkzuqez/100 WBC (Bld)30.6 %NormalProSelect Medical [facility] Comment on above:Performed By: #### NATHAN, 5124-3, 61033-6, 97799-4, 11583-2 #### [facility] ([id number]) [address], [address] [place], [place] [address]PMW (RBC) [Entitic mass]30.2 uoSwqtfd15-14WeoBtpqha [place] HospitalComment on above:Performed By: #### NATHAN, 5124-3, 31571-2, 29565-3, 54398-7 #### [facility] ([id number]) [address], [address] [place], [place] [address]OGUU (RBC) [Mass/Vol]33.7 g/xUMippyl45-12SliFykbzg [place] HospitalComment on above:Performed By: #### NATHAN, 5124-3, 34477-1, 16752-9, 93449-6 #### [facility] ([id number]) [address], [address] [place], [place] [address]IEH (RBC) [Entitic vol]90 kEIxubee37-425MzoRzkvro Jackson HospitalComment on above:Performed By: #### NATHAN, 5124-3, 44386-1, 82516-1, 47004-5 #### [facility] ([id number]) [address], [address] [place], [place] [address]Bdsoksvss (Bld) [#/Vol]0.9 10*3/uLNormal0-0.9Pro[facility], [facility] HospitalComment on above:Performed By: #### NATHAN, 5124-3, 43823-2, 88849-0, 02540-1 #### [facility] ([id number]) [address], [address] [place], [place] [address]Fesrzyyuy/100 WBC (Bld)6.0 %NormalAultman Hospital Comment on above:Performed By: #### NATHAN, 5124-3, 80600-8, 68999-7, 03956-3 #### [facility] ([id number]) [address], [address] [place], [place] [address]Rdqhkdounmb/100 WBC (Bld)61.2 %NormalAultman Hospital Comment on above:Performed By: #### NATHAN, 5124-3, 00660-5, 84940-3, 19278-9 #### [facility] ([id number]) [address], [address] [place], [place] [address]Mutjyvig mean volume (Bld) [Entitic vol]7.9 fLNormal7-12 [facility] HospitalComment on above:Performed By: #### NATHAN, 5124-3, 14243- 0, 25834-1, 18366-1 #### [facility] ([id number]) [address], [address] [place], [place] [address]Iqurgjaix (Bld) [#/Vol]385 10*3/tTKzeuix159-817UgeZetxqx [facility] HospitalComment on above:Performed By: #### NATHAN, 5124-3, 47881-9, 28921-2, 41416-1 #### [facility] ([id number]) [address], [address] [place], [place] [address]XUD COUNT4.35 X10E12/LNormal3.80-5.20Pro[facility] Comment on above:Performed By: #### NATHAN, 5124-3, 71011-6, 29656-5, 14655-1 #### [facility] ([id number]) [address], [address] [place], [place] [address]QPT (Bld) [#/Vol]15.7 10*3/uLHigh4.0-11.0ProPrem[facility] Southca [facility] HospitalComment on above:Performed By: #### NATHAN, 5124-3, 72267-7, 40381-3, 28022-3 #### [facility] ([id number]) [address], [address] [place], [place] [address]SMMDDYSARQUPF METABOLIC PANELon 39-57-8974Gqsvuda [Mass/Vol]3.2 g/dLNormal3.2-5.3[facility] HospitalComment on above:Performed By: #### NATHAN, 5124-3, 50290-2, 51827-5, 95710-8 #### [facility] ([id number]) [address], [address] [place], [place] [address]QPG [Catalytic activity/Vol]73 U/JDgfkqx17-889SrkRymxem [facility] HospitalComment on above:Performed By: #### NATHAN, 5124-3, 07907-6, 65751-1, 80500-1 #### [facility] ([id number]) [address], [address] [place], [place] [address]EIQ [Catalytic activity/Vol]14 U/LNormal0-31[facility] HospitalComment on above:Performed By: #### NATHAN, 5124-3, 70033-9, 20000-7, 62161-6 #### [facility] ([id number]) [address], [address] [place], [place] [address]Vzmnq gap [Moles/Vol]10 mmol/LNormal5-15[facility] HospitalComment on above:Performed By: #### NATHAN, 5124-3, 03656-2, 90950-8, 85389-2 #### [facility] ([id number]) [address], [address] [place], [place] [address]QCI [Catalytic activity/Vol]17 U/LNormal0-41[facility] HospitalComment on above:Performed By: #### NATHAN, 5124-3, 14381-6, 35431-2, 85301-7 #### [facility] ([id number]) [address], [address] [place], [place] [address]Yvaplwrlm [Mass/Vol]0.2 mg/dLLow0.3-1.2PHolmes [facility] Comment on above:Performed By: #### NATHAN, 5124-3, 14243-4, 11253-5, 11120-6 #### [facility] ([id number]) [address], [address] [place], [place] [address]Xrrfgwu [Mass/Vol]8.9 mg/dLNormal8.5-10.5ProMedfayette medical center [facility]ano HospitalComment on above:Performed By: #### NATHAN, 5124-3, 78243-1, 96359-3, 76999-3 #### [facility] ([id number]) [address], [address] [place], [place] [address]Jhtqbprj [Moles/Vol]104 mmol/JVyqlqc21-436JasXccerm [place] HospitalComment on above:Performed By: #### NATHAN, 5124-3, 36292-6, 80045-8, 92800-6 #### [facility] ([id number]) [address], [address] [place], [place] [address]JT7 [Moles/Vol]24 mmol/JMcdust88-44KvdMcmxtjMercy Health [facility] Comment on above:Performed By: #### NATHAN, 5124-3, 82968-6, 50341-4, 14957-4 #### [facility] ([id number]) [address], [address] [place], [place] [address]Fgtavmcxwm [Mass/Vol]0.69 mg/dLNormal0.40-1.00ProZanesville City HospitalComment on above:Result Comment: METHOD TRACEABLE TO IDMS STANDARD Performed By: #### NATHAN, 5124-3, 43077-9, 23447-0, 52409-6 #### [facility] ([id number]) [address] [address] [place], [place] [address]eKYG (CKD-EPI) NON-RACE DEPENDENT>90Normal>59ProZanesville City HospitalComment on above:Result Comment: Reported eGFR is based on the CKD-EPI 2020 equation that does not use a race coefficient.Performed By: #### NATHAN, 5124-3, 16015-4, 88194-3, 64767-5 #### [facility] ([id number]) [address], [address] [place], [place] [address]Vhbgygc [Mass/Vol]76 mg/sLYvqnan66-01HsuFpqhboAultman Hospital Comment on above:Performed By: #### NATHAN, 5124-3, 59095-8, 93462-4, 19594-0 #### [facility] ([id number]) [address] [address] [place] [address]Ztrwbpjxl [Moles/Vol]3.9 mmol/LNormal3.5-5.0Pro[facility], [facility] HospitalComment on above:Performed By: #### NATHAN, 5124-3, 79069-8, 23751-4, 06571-8 #### [facility] ([id number]) [address], [address] [place], [place] [address]Rnkvwgc [Mass/Vol]6.2 g/dLNormal6.0-8.0[facility] Comment on above:Performed By: #### NATHAN, 5124-3, 13134-5, 92508-9, 89194-1 #### [facility] ([id number]) [address], [address] [place], [place] [address]Svwcng [Moles/Vol]138 mmol/MXqepwl726-314UqlMifbms [place] HospitalComment on above:Performed By: #### NATHAN, 5124-3, 64545-6, 21433-5, 94155-2 #### [facility] ([id number]) [address], [address] [place], [place] [address]Wvrt nitrogen [Mass/Vol]17 mg/dLNormal5-23Pro[facility] HospitalComment on above:Performed By: #### NATHAN, 5124-3, 13510-0, 34798-1, 35863-6 #### [facility] ([id number]) [address], [address] [place], [place] [address]RHQ AND AUTO DIFFon 11-14-7243ZPLGKNTU BASOPHIL0.1 X10E9/LNormal 0.0-0.2PHolmes [facility] HospitalComment on above:Performed By: #### NATHAN, 5124-3, 99440-0, 91483-2, 14240-2 #### [facility] ([id number]) [address], [address] [place], [place] [address]UDEWUFFR NEUTROPHIL8.4 X10E9/LHigh1.5-6.6Pro[facility], [facility] HospitalComment on above:Performed By: #### NATHAN, 5124-3, 72054-3, 68539-6, 65925-7 #### [facility] ([id number]) [address], [address] [place], [place] [address]Mmgssgyhm/100 WBC (Bld)0.4 %NormalAultman Hospital Comment on above:Performed By: #### NATHAN, 5124-3, 56946-0, 82066-3, 49168-7 #### [facility] ([id number]) [address], [address] [place], [place] [address]Qdxplamfevr (Bld) [#/Vol]0.2 10*3/uLNormal0.0-0.4Pro[facility], [facility] HospitalComment on above:Performed By: #### NATHAN, 5124-3, 31037-6, 33655- 5, 66087-4 #### [facility] ([id number]) [address], [address] [place], [place] [address]Mzovcymhfvj/100 WBC (Bld)1.5 %NormalAultman Hospital Comment on above:Performed By: #### NATHAN, 5124-3, 58457-3, 64890-1, 56007-3 #### [facility] ([id number]) [address], [address] [place], [place] [address]Aqnjxvpulpf distribution width (RBC) [Ratio]12.6 %Normal 11.5-15.0Pro[facility], [facility] HospitalComment on above:Performed By: #### NATHAN, 5124- 3, 68680-3, 31462-3, 79494-1 #### [facility] ([id number]) [address], [address] [place], [place] [address]Bpysmihful (Bld) [Volume fraction]37.4 %Giiqkc60-70DfuAsqxbm [place] HospitalComment on above:Performed By: #### NATHAN, 5124-3, 35751-1, 87027- 5, 82170-6 #### [facility] ([id number]) [address], [address] [place], [place] [address]Tflxbqcntd (Bld) [Mass/Vol]13.1 g/xESmldlf02.7-15.5PHolmes [facility] HospitalComment on above:Performed By: #### NATHAN, 5124-3, 29550-4, 57932- 5, 46895-5 #### [facility] ([id number]) [address], [address] [place], [place] [address]Ozccrgwvqiv (Bld) [#/Vol]5.1 10*3/uLHigh1.0-3.5PHolmes [facility] HospitalComment on above:Performed By: #### NATHAN, 5124-3, 30230-9, 80639-7, 57468-6 #### [facility] ([id number]) [address], [address] [place], [place] [address]Jotdqjgurrs/100 WBC (Bld)34.8 %NormalProSelect Medical [facility] Comment on above:Performed By: #### NATHAN, 5124-3, 85226-7, 32409-9, 53889-1 #### [facility] ([id number]) [address], [address] [place], [place] [address]ZUT (RBC) [Entitic mass]30.9 scRnuuqs45-93TcfQmlmtu [place] HospitalComment on above:Performed By: #### NATHAN, 5124-3, 14523-8, 53639-7, 61362-7 #### [facility] ([id number]) [address], [address] [place], [place] [address]DCXX (RBC) [Mass/Vol]34.9 g/yPQzqgvq73-21VzrGkogyk [place] HospitalComment on above:Performed By: #### NATHAN, 5124-3, 12433-3, 27160-9, 38492-0 #### [facility] ([id number]) [address], [address] [place], [place] [address]GFX (RBC) [Entitic vol]88 jXGijowz77-660MjhVtadsc [place] HospitalComment on above:Performed By: #### NATHAN, 5124-3, 55409-0, 53275-0, 06184-6 #### [facility] ([id number]) [address], [address] [place], [place] [address]Ghwnwpzcd (Bld) [#/Vol]0.8 10*3/uLNormal0-0.9ProPrem[facility] Southca [facility] HospitalComment on above:Performed By: #### NATHAN, 5124-3, 59357-8, 89547-1, 88359-3 #### [facility] ([id number]) [address], [address] [place], [place] [address]Btnukecaf/100 WBC (Bld)5.7 %NormalAultman Hospital Comment on above:Performed By: #### NATHAN, 5124-3, 72793-2, 71511-6, 29798-0 #### [facility] ([id number]) [address], [address] [place], [place] [address]Iavtpjayjkv/100 WBC (Bld)57.6 %NormalAultman Hospital Comment on above:Performed By: #### NATHAN, 5124-3, 63911-7, 33968-9, 10551-9 #### [facility] ([id number]) [address], [address] [place], [place] [address]Ljtaxsaj mean volume (Bld) [Entitic vol]7.9 fLNormal7-12 [facility] HospitalComment on above:Performed By: #### NATHAN, 5124-3, 86390- 0, 03870-6, 96467-1 #### [facility] ([id number]) [address], [address] [place] [address]Xqstyoeuy (Bld) [#/Vol]398 10*3/oLAszpep188-818ZlpQbtjkq [facility] HospitalComment on above:Performed By: #### NATHAN, 5124-3, 91487-5, 95520-1, 51523-8 #### [facility] ([id number]) [address] [place], [place] [address]NGU COUNT4.23 X10E12/LNormal3.80-5.20Pro[facility] Comment on above:Performed By: #### NATHAN, 5124-3, 25655-2, 51443-7, 89665-2 #### [facility] ([id number]) [address], [address] [place] [address]RBG (Bld) [#/Vol]14.7 10*3/uLHigh4.0-11.0ProPrem[facility] Southca [facility] HospitalComment on above:Performed By: #### NATHAN, 5124-3, 17286-5, 85788-7, 92978-0 #### [facility] ([id number]) [address], [address] [place] [address]VPOEIFEJIUBIH METABOLIC PANELon 55-17-3694Peuxtlw [Mass/Vol]3.2 g/dLNormal3.2-5.3[facility] HospitalComment on above:Performed By: #### NATHAN, 5124-3, 61399-0, 97719-7, 56660-0 #### [facility] ([id number]) [address], [address] [place], [place] [address]WGV [Catalytic activity/Vol]71 U/SAoehjo94-922BjgVrrazt [place] HospitalComment on above:Performed By: #### NATHAN, 5124-3, 72479-0, 13842-8, 09163-2 #### [facility] ([id number]) [address], [address] [place], [place] [address]UYD [Catalytic activity/Vol]12 U/LNormal0-31[facility] HospitalComment on above:Performed By: #### NATHAN, 5124-3, 21376-1, 79061-6, 03409-2 #### [facility] ([id number]) [address], [address] [place], [place] [address]Mwbdt gap [Moles/Vol]10 mmol/LNormal5-15[facility] HospitalComment on above:Performed By: #### NATHAN, 5124-3, 32680-8, 14090-1, 26196-5 #### [facility] ([id number]) [address], [address] [place], [place] [address]GYA [Catalytic activity/Vol]17 U/LNormal0-41[facility] HospitalComment on above:Performed By: #### NATHAN, 5124-3, 38368-4, 29946-3, 38841-8 #### [facility] ([id number]) [address], [address] [place], [place] [address]Qvphzajuc [Mass/Vol]0.3 mg/dLNormal0.3-1.2[facility] HospitalComment on above:Performed By: #### NATHAN, 5124-3, 98458-0, 89755-4, 02090-1 #### [facility] ([id number]) [address], [address] [place], [place] [address]Hsilmsy [Mass/Vol]9.1 mg/dLNormal8.5-10.5[facility] HospitalComment on above:Performed By: #### NATHAN, 5124-3, 54173-8, 51047-3, 81148-3 #### [facility] ([id number]) [address], [address] [place], [place] [address]Gcrefdnv [Moles/Vol]103 mmol/VSwrkmk88-532OhtEgwqxl [facility] HospitalComment on above:Performed By: #### NATHAN, 5124-3, 05108-9, 10162-6, 03761-6 #### [facility] ([id number]) [address], [address] [place], [place] [address]FR1 [Moles/Vol]24 mmol/UOiychp57-20ZcyVirdzuMercy Health [facility]sburg Hospital Comment on above:Performed By: #### NATHAN, 5124-3, 48673-1, 50915-4, 42788-7 #### [facility] ([id number]) [address], [facility] [address] [place], [place] [address]Zxclsntgwa [Mass/Vol]0.77 mg/dLNormal0.40-1.00ProZanesville City HospitalComment on above:Result Comment: METHOD TRACEABLE TO IDMS STANDARD Performed By: #### NATHAN, 5124-3, 02579-4, 87795-0, 85867-9 #### [facility] ([id number]) [address], [address] [address]jHEU (CKD-EPI) NON-RACE DEPENDENT>90Normal>59ProZanesville City HospitalComment on above:Result Comment: Reported eGFR is based on the CKD-EPI 2020 equation that does not use a race coefficient.Performed By: #### NATHAN, 5124-3, 57449-1, 50773-8, 79158-2 #### [facility] ([id number]) [address], [facility] [place] [address] [place], [place] [address]Iekewsr [Mass/Vol]75 mg/lAZaowbk57-68XkpEjogxhAultman Hospital Comment on above:Performed By: #### NATHAN, 5124-3, 16896-9, 87135-7, 58765-4 #### [facility] ([id number]) [address], [facility] [place] [address] [place], [place] [address]Swwjzplwc [Moles/Vol]4.2 mmol/LNormal3.5-5.0ProZanesville City HospitalComment on above:Performed By: #### NATHAN, 5124-3, 41211-8, 37681-1, 54708-0 #### [facility] ([id number]) [address], [address] [place] [address]Oqcojsn [Mass/Vol]6.3 g/dLNormal6.0-8.0[facility] Comment on above:Performed By: #### NATHAN, 5124-3, 68804-7, 28819-2, 77927-0 #### [facility] ([id number]) [address], [address] [place], [place] [address]Nhnfda [Moles/Vol]137 mmol/FJjamns305-055BvlArbddn [facility] HospitalComment on above:Performed By: #### NATHAN, 5124-3, 59537-0, 80135-8, 53793-1 #### [facility] ([id number]) [address], [address] [place], [place] [address]Ddrn nitrogen [Mass/Vol]15 mg/dLNormal5-23[facility] HospitalComment on above:Performed By: #### NATHAN, 5124-3, 05001-3, 62938-4, 35062-0 #### [facility] ([id number]) [address], [address] [place], [place] [address]ZZI AND AUTO DIFFon 92-70-3741YUCELMFA BASOPHIL0.1 X10E9/LNormal 0.0-0.2[facility] HospitalComment on above:Performed By: #### NATHAN, 5124-3, 24665-9, 28869-4, 91543-8 #### [facility] ([id number]) [address], [address] [place], [place] [address]UHSMWTLD NEUTROPHIL9.6 X10E9/LHigh1.5-6.6[facility] HospitalComment on above:Performed By: #### NATHAN, 5124-3, 37150-2, 50467-6, 12160-7 #### [facility] ([id number]) [address], [address] [place], [place] [address]Yixjknzsd/100 WBC (Bld)0.4 %NormalAultman Hospital Comment on above:Performed By: #### NATHAN, 5124-3, 47733-8, 95016-5, 62110-3 #### [facility] ([id number]) [address], [address] [place], [place] [address]Tslszaiuvww (Bld) [#/Vol]0.2 10*3/uLNormal0.0-0.4ProZanesville City HospitalComment on above:Performed By: #### NATHAN, 5124-3, 24100-7, 38904- 5, 50831-0 #### [facility] ([id number]) [address] [address] [place], [place] [address]Ykbjcbnrrez/100 WBC (Bld)1.2 %NormalAultman Hospital Comment on above:Performed By: #### NATHAN, 5124-3, 08052-2, 80695-7, 01462-3 #### [facility] ([id number]) [address] [address] [place], [place] [address]Xzgduwhpthj distribution width (RBC) [Ratio]13.3 %Normal 11.5-15.0Aultman HospitalComment on above:Performed By: #### NATHAN, 5124- 3, 58401-6, 30397-7, 69253-7 #### [facility] ([id number]) [address], [address] [place], [place] [address]Bzwzcaajim (Bld) [Volume fraction]39.9 %Ysrtdy40-58LsmGrxzxiZanesville City HospitalComment on above:Performed By: #### NATHAN, 5124-3, 13455-8, 66735- 5, 52807-2 #### [facility] ([id number]) [address], [address] [place], [place] [address]Bndsppxirt (Bld) [Mass/Vol]13.5 g/kXEdgzyf66.7-15.5PHolmes County Joel [facility]ome[facility] Hospital HospitalComment on above:Performed By: #### NATHAN, 5124-3, 47365-6, 88030- 5, 61775-8 #### [facility] ([id number]) [address], [address] [place], [place] [address]Xvgvvxqukzz (Bld) [#/Vol]4.3 10*3/uLHigh1.0-3.5PHolmes County Joel [facility]omerene [facility] Hospital HospitalComment on above:Performed By: #### NATHAN, 5124-3, 39465-5, 07045-6, 12757-9 #### [facility] ([id number]) [address], [address] [place] [address]Rdjxoxcxpyd/100 WBC (Bld)28.8 %NormalProSelect Medical [facility], [facility] Comment on above:Performed By: #### NATHAN, 5124-3, 41479-1, 18837-7, 46468-9 #### [facility] ([id number]) [address], [address] [place], [place] [address]OFT (RBC) [Entitic mass]30.0 vpStkqjp92-17YxhElyrfk [place] HospitalComment on above:Performed By: #### NATHAN, 5124-3, 35262-7, 64294-9, 08271-6 #### [facility] ([id number]) [address], [address] [place], [place] [address]IQTE (RBC) [Mass/Vol]34.0 g/fKJlzgum36-97RsxTfmjzm [place] HospitalComment on above:Performed By: #### NATHAN, 5124-3, 38526-0, 85597-4, 35510-5 #### [facility] ([id number]) [address], [address] [place], [place] [address]FBH (RBC) [Entitic vol]88 mFAybubh32-156SsyCguqzi [place] HospitalComment on above:Performed By: #### NATHAN, 5124-3, 62618-9, 94002-8, 66204-8 #### [facility] ([id number]) [address], [address] [place], [place] [address]Rzmurtkpo (Bld) [#/Vol]0.8 10*3/uLNormal0-0.9ProSelect [facility], [facility] HospitalComment on above:Performed By: #### NATHAN, 5124-3, 24349-7, 71030-0, 85306-2 #### [facility] ([id number]) [address], [address] [place], [place] [address]Vrvripmqq/100 WBC (Bld)5.1 %NormalAultman Hospital Comment on above:Performed By: #### NATHAN, 5124-3, 96093-3, 88007-2, 76044-4 #### [facility] ([id number]) [address], [address] [place], [place] [address]Xesyenlqkcq/100 WBC (Bld)64.5 %NormalAultman Hospital Comment on above:Performed By: #### NATHAN, 5124-3, 96801-2, 04479-5, 76696-9 #### [facility] ([id number]) [address], [address] [place], [place] [address]Athjxhzk mean volume (Bld) [Entitic vol]7.9 fLNormal7-12 [facility] Jackson HospitalComment on above:Performed By: #### NATHAN, 5124-3, 37350- 0, 86768-1, 36793-9 #### [facility] ([id number]) [address], [address] [place], [place] [address]Nlwvibttc (Bld) [#/Vol]420 10*3/fRXetwzp883-069SbwMfznrq [facility] HospitalComment on above:Performed By: #### NATHAN, 5124-3, 17761-3, 82115-5, 91553-8 #### [facility] ([id number]) [address], [address] [place], [place] [address]JED COUNT4.51 X10E12/LNormal3.80-5.20[facility] Comment on above:Performed By: #### NATHAN, 5124-3, 57208-9, 64484-6, 74650-4 #### [facility] ([id number]) [address], [address] [place] [address]AJK (Bld) [#/Vol]14.8 10*3/uLHigh4.0-11.0ProPremier [facility] Southca Jackson HospitalComment on above:Performed By: #### NATHAN, 5124-3, 84886-3, 98931-2, 49696-0 #### [facility] ([id number]) [address], [facility] [address] [place], [place] [address]VIPOQIACFZRAT METABOLIC PANELon 96-16-8467Dcemkjt [Mass/Vol]3.4 g/dLNormal3.2-5.3[facility] [place] HospitalComment on above:Performed By: #### NATHAN, 5124-3, 67593-5, 78352-0, 55497-7 #### [facility] ([id number]) [address], [address] [place], [place] [address]VUU [Catalytic activity/Vol]79 U/KRhxiyd67-163IsbWmlkai [place] HospitalComment on above:Performed By: #### NATHAN, 5124-3, 10586-9, 08212-2, 72297-2 #### [facility] ([id number]) [address], [address] [place], [place] [address]RCK [Catalytic activity/Vol]12 U/LNormal0-31[facility] [place] HospitalComment on above:Performed By: #### NATHAN, 5124-3, 24297-4, 56022-5, 55288-3 #### [facility] ([id number]) [address], [address] [place], [place] [address]Abivb gap [Moles/Vol]10 mmol/LNormal5-15[facility] [place] HospitalComment on above:Performed By: #### NATHAN, 5124-3, 55862-4, 95797-3, 59948-7 #### [facility] ([id number]) [address], [address] [place], [place] [address]NLB [Catalytic activity/Vol]18 U/LNormal0-41[facility] [place] HospitalComment on above:Performed By: #### NATHAN, 5124-3, 42024-5, 04162-5, 12795-5 #### [facility] ([id number]) [address], [address] [place], [place] [address]Kjfxmdzpt [Mass/Vol]0.2 mg/dLLow0.3-1.2[facility] Comment on above:Performed By: #### NATHAN, 5124-3, 53834-7, 09959-8, 67274-4 #### [facility] ([id number]) [address], [address] [place], [place] [address]Uuhgduv [Mass/Vol]9.2 mg/dLNormal8.5-10.5ProMedfayette medical center [place] HospitalComment on above:Performed By: #### NATHAN, 5124-3, 73604-1, 65021-5, 34174-7 #### [facility] ([id number]) [address], [address] [place], [place] [address]Gexyoydy [Moles/Vol]104 mmol/JVmszfz81-592VhtJueert [place] HospitalComment on above:Performed By: #### NATHAN, 5124-3, 15572-7, 03319-0, 63985-6 #### [facility] ([id number]) [address], [address] [place], [place] [address]FR5 [Moles/Vol]23 mmol/CVxnkxj84-13EhiUbeful [place] [facility] Comment on above:Performed By: #### NATHAN, 5124-3, 83119-1, 82475-6, 62501-6 #### [facility] ([id number]) [address], [facility] [place], [place] [address]Edyecjisqh [Mass/Vol]0.78 mg/dLNormal0.40-1.00ProZanesville City HospitalComment on above:Result Comment: METHOD TRACEABLE TO IDMS STANDARD Performed By: #### NATHAN, 5124-3, 90243-5, 57351-9, 21272-5 #### [facility] ([id number]) [address] [address]lQPI (CKD-EPI) NON-RACE DEPENDENT>90Normal>59ProZanesville City HospitalComment on above:Result Comment: Reported eGFR is based on the CKD-EPI 2020 equation that does not use a race coefficient.Performed By: #### NATHAN, 5124-3, 30479-4, 72371-3, 79834-9 #### [facility] ([id number]) [address] [address] [place], [place] [address]Lqhlhxd [Mass/Vol]93 mg/jGPsbreq70-12NenLsvmyzAultman Hospital Comment on above:Performed By: #### NATHAN, 5124-3, 78649-7, 22697-1, 30181-1 #### [facility] ([id number]) [address] [address] [place], [place] [address]Njvewdfdc [Moles/Vol]3.9 mmol/LNormal3.5-5.0ProZanesville City HospitalComment on above:Performed By: #### NATHAN, 5124-3, 69017-4, 08121-7, 44312-2 #### [facility] ([id number]) [address] [address] [place], [place] [address]Zktqeie [Mass/Vol]6.5 g/dLNormal6.0-8.0[facility] [place] [facility] Comment on above:Performed By: #### NATHAN, 5124-3, 55786-5, 46752-6, 21211-9 #### [facility] ([id number]) [address], [address] [place], [place] [address]Pclzax [Moles/Vol]137 mmol/VPmeyue732-728RbfAwsjai [place] HospitalComment on above:Performed By: #### NATHAN, 5124-3, 40997-5, 20491-1, 83340-9 #### [facility] ([id number]) [address], [address] [place], [place] [address]Djry nitrogen [Mass/Vol]15 mg/dLNormal5-23Pro[facility], [facility] HospitalComment on above:Performed By: #### NATHAN, 5124-3, 90174-8, 71213-3, 32076-1 #### [facility] ([id number]) [address], [address] [place], [place] [address]LWJ AND AUTO DIFFon 21-71-1836YNWXGLSK BASOPHIL0.1 X10E9/LNormal 0.0-0.2ProMedMary Rutan HospitalComment on above:Performed By: #### NATHAN, 5124-3, 98300-1, 80445-3, 65390-5 #### [facility] ([id number]) [address], [address] [place], [place] [address]YZCPHNUB NEUTROPHIL8.9 X10E9/LHigh1.5-6.6Pro[facility], [facility] HospitalComment on above:Performed By: #### NATHAN, 5124-3, 81203-9, 87017-3, 04739-1 #### [facility] ([id number]) [address], [address] [place], [place] [address]Ueodibsvr/100 WBC (Bld)0.4 %NormalProZanesville City Hospital Comment on above:Performed By: #### NATHAN, 5124-3, 51133-6, 94333-1, 44234-8 #### [facility] ([id number]) [address], [facility] [place], [place] [address]Slfoavgajog (Bld) [#/Vol]0.2 10*3/uLNormal0.0-0.4Pro[facility], [facility] HospitalComment on above:Performed By: #### NATHAN, 5124-3, 84849-5, 04388- 5, 97507-7 #### [facility] ([id number]) [address], [facility] [place], [place] [address]Gzdeqututvo/100 WBC (Bld)1.5 %NormalProSelect Medical [facility] Comment on above:Performed By: #### NATHAN, 5124-3, 80794-0, 35062-1, 93219-8 #### [facility] ([id number]) [address] [address]Sfecrhgkqpa distribution width (RBC) [Ratio]12.8 %Normal 11.5-15.0Pro[facility], [facility] HospitalComment on above:Performed By: #### NATHAN, 5124- 3, 29505-4, 23935-0, 80363-6 #### [facility] ([id number]) [address] [address] [place], [place] [address]Ymalgqlbkq (Bld) [Volume fraction]39.6 %Yfwkhc01-12HglBhfgck [place] HospitalComment on above:Performed By: #### NATHAN, 5124-3, 96779-2, 13456- 5, 60307-7 #### [facility] ([id number]) [address] [address] [place], [place] [address]Ngoobadzcb (Bld) [Mass/Vol]13.1 g/jOBudvne70.7-15.5PHolmes County [facility] Hospital HospitalComment on above:Performed By: #### NATHAN, 5124-3, 84544-9, 56750- 5, 90384-2 #### [facility] ([id number]) [address], [address] [place], [place] [address]Uqkhlwnvnxd (Bld) [#/Vol]5.2 10*3/uLHigh1.0-3.5ProMedica Jackson HospitalComment on above:Performed By: #### NATHAN, 5124-3, 73419-1, 60164-3, 88758-0 #### [facility] ([id number]) [address], [address] [place], [place] [address]Pbmjlqoycwh/100 WBC (Bld)34.0 %NormalProSelect Medical [facility] Comment on above:Performed By: #### NATHAN, 5124-3, 86441-2, 32810-1, 54062-5 #### [facility] ([id number]) [address], [address] [place], [place] [address]CXI (RBC) [Entitic mass]30.1 rbShyxac24-54VlbFxxjzf [place] HospitalComment on above:Performed By: #### NATHAN, 5124-3, 16770-4, 64530-1, 69266-9 #### [facility] ([id number]) [address], [address] [place], [place] [address]NDKY (RBC) [Mass/Vol]33.2 g/lRBwvbel34-36LedMvbmyv [place] HospitalComment on above:Performed By: #### NATHAN, 5124-3, 16371-6, 27816-1, 15906-4 #### [facility] ([id number]) [address], [address] [place], [place] [address]VAU (RBC) [Entitic vol]91 bLDeemed71-904RqlFzvpyw [facility] HospitalComment on above:Performed By: #### NATHAN, 5124-3, 11635-1, 20224-6, 94997-0 #### [facility] ([id number]) [address], [address] [place], [place] [address]Nbubzqtfk (Bld) [#/Vol]0.8 10*3/uLNormal0-0.9ProPrem[facility] Southca [facility] HospitalComment on above:Performed By: #### NATHAN, 5124-3, 04568-4, 74693-6, 41730-4 #### [facility] ([id number]) [address], [address] [place], [place] [address]Umazgxxnb/100 WBC (Bld)5.3 %NormalAultman Hospital Comment on above:Performed By: #### NATHAN, 5124-3, 56896-3, 08844-8, 36057-5 #### [facility] ([id number]) [address], [address] [place], [place] [address]Ecfkssvvkid/100 WBC (Bld)58.8 %NormalAultman Hospital Comment on above:Performed By: #### NATHAN, 5124-3, 65161-7, 40637-6, 52574-5 #### [facility] ([id number]) [address], [address] [place], [place] [address]Vktraxqw mean volume (Bld) [Entitic vol]8.3 fLNormal7-12 [facility] HospitalComment on above:Performed By: #### NATHAN, 5124-3, 66359- 0, 38917-3, 14144-7 #### [facility] ([id number]) [address], [address] [place], [place] [address]Sbjxdfbap (Bld) [#/Vol]386 10*3/wXDkpshe401-371ZexBqscoc Jackson HospitalComment on above:Performed By: #### NATHAN, 5124-3, 93354-3, 15370-0, 91791-2 #### [facility] ([id number]) [address], [address] [place], [place] [address]FHP COUNT4.37 X10E12/LNormal3.80-5.20[facility] Comment on above:Performed By: #### NATHAN, 5124-3, 20065-0, 47899-0, 58012-4 #### [facility] ([id number]) [address], [address] [place] [address]ZEP (Bld) [#/Vol]15.2 10*3/uLHigh4.0-11.0[facility] [place] HospitalComment on above:Performed By: #### NATHAN, 5124-3, 31150-9, 76806-5, 16908-6 #### [facility] ([id number]) [address], [address] [place] [address]VRXBJXRFMJNBY METABOLIC PANELon 81-42-0584Mzichiq [Mass/Vol]3.2 g/dLNormal3.2-5.3ProMedica Jackson HospitalComment on above:Performed By: #### NATHAN, 5124-3, 10014-7, 25218-0, 11983-4 #### [facility] ([id number]) [address], [address] [place], [place] [address]XSJ [Catalytic activity/Vol]70 U/QXivwkb99-870UdxLbcrem [place] HospitalComment on above:Performed By: #### NATHAN, 5124-3, 38574-2, 70722-3, 58396-3 #### [facility] ([id number]) [address], [address] [place], [place] [address]TEM [Catalytic activity/Vol]12 U/LNormal0-31ProMedFulton County Health Center HospitalComment on above:Performed By: #### NATHAN, 5124-3, 61803-5, 26704-3, 29768-6 #### [facility] ([id number]) [address], [address] [place], [place] [address]Gzcfo gap [Moles/Vol]10 mmol/LNormal5-15[facility] [place] HospitalComment on above:Performed By: #### NATHAN, 5124-3, 07202-5, 89124-4, 35120-7 #### [facility] ([id number]) [address], [address] [place], [place] [address]OKA [Catalytic activity/Vol]19 U/LNormal0-41Pro[facility], [facility] HospitalComment on above:Performed By: #### NATHAN, 5124-3, 10638-6, 36591-2, 28834-1 #### [facility] ([id number]) [address], [address] [place], [place] [address]Ewjacwbvh [Mass/Vol]0.2 mg/dLLow0.3-1.2PMercy Health [facility] Hospital Comment on above:Performed By: #### NATHAN, 5124-3, 75679-4, 12289-8, 57254-4 #### [facility] ([id number]) [address], [address] [place], [place] [address]Ovkxxzs [Mass/Vol]9.0 mg/dLNormal8.5-10.5PMercy Health Perrysburg HospitalComment on above:Performed By: #### NATHAN, 5124-3, 90690-8, 77573-2, 32044-1 #### [facility] ([id number]) [address], [address] [place], [place] [address]Vorfktbn [Moles/Vol]105 mmol/IOzwpaw71-654ZrrVptnno [place] HospitalComment on above:Performed By: #### NATHAN, 5124-3, 22260-4, 66262-1, 17815-8 #### [facility] ([id number]) [address], [address] [place], [place] [address]IB2 [Moles/Vol]24 mmol/AVlkuqw83-59SplFzftfdMercy Health [facility]sburg Hospital Comment on above:Performed By: #### NATHAN, 5124-3, 55571-9, 78770-7, 50396-4 #### [facility] ([id number]) [address] [address]Fugeieppfm [Mass/Vol]0.77 mg/dLNormal0.40-1.00ProZanesville City HospitalComment on above:Result Comment: METHOD TRACEABLE TO IDMS STANDARD Performed By: #### NATHAN, 5124-3, 69428-6, 18168-0, 90832-9 #### [facility] ([id number]) [address] [address]mSHI (CKD-EPI) NON-RACE DEPENDENT>90Normal>59ProZanesville City HospitalComment on above:Result Comment: Reported eGFR is based on the CKD-EPI 2020 equation that does not use a race coefficient.Performed By: #### NATHAN, 5124-3, 73140-7, 38024-7, 10563-1 #### [facility] ([id number]) [address] [address]Qurignh [Mass/Vol]71 mg/zOHcwioj22-36GqkPiwzda [facility] Comment on above:Performed By: #### NATHAN, 5124-3, 10673-6, 15988-8, 48262-2 #### [facility] ([id number]) [address] [address]Phlpadxfc [Moles/Vol]4.0 mmol/LNormal3.5-5.0ProZanesville City HospitalComment on above:Performed By: #### NATHAN, 5124-3, 90976-0, 23181-2, 17838-6 #### [facility] ([id number]) [address] [address]Fxedwvi [Mass/Vol]6.3 g/dLNormal6.0-8.0[facility] Comment on above:Performed By: #### NATHAN, 5124-3, 54868-7, 85283-4, 45948-9 #### [facility] ([id number]) [address] [address] [place] [address]Clxhsu [Moles/Vol]139 mmol/DGvkvhw625-710WfmNcqjrd Jackson HospitalComment on above:Performed By: #### NATHAN, 5124-3, 46613-6, 02138-8, 99206-2 #### [facility] ([id number]) [address], [address] [place], [place] [address]Nwkf nitrogen [Mass/Vol]15 mg/dLNormal5-23ProPremier [facility] Southca [facility] HospitalComment on above:Performed By: #### NATHAN, 5124-3, 91989-0, 56484-5, 12951-5 #### [facility] ([id number]) [address], [address] [place], [place] [address]BWX AND AUTO DIFFon 47-61-6870HTHNLXAL BASOPHIL0.1 X10E9/LNormal 0.0-0.2ProMed[facility] HospitalComment on above:Performed By: #### NATHAN, 5124-3, 64731-8, 36956-0, 57612-9 #### [facility] ([id number]) [address], [address] [place], [place] [address]WYESOMQU NEUTROPHIL9.5 X10E9/LHigh1.5-6.6Pro[facility], [facility] HospitalComment on above:Performed By: #### NATHAN, 5124-3, 10097-0, 83084-7, 30274-4 #### [facility] ([id number]) [address], [address] [place] [address]Fvxumpcqh/100 WBC (Bld)0.4 %NormalProSelect Medical [facility] Comment on above:Performed By: #### NATHAN, 5124-3, 78698-1, 46376-5, 55299-4 #### [facility] ([id number]) [address], [address] [place], [place] [address]Mfwmuswweme (Bld) [#/Vol]0.1 10*3/uLNormal0.0-0.4ProZanesville City HospitalComment on above:Performed By: #### NATHAN, 5124-3, 23688-2, 57860- 5, 17933-8 #### [facility] ([id number]) [address], [address] [place], [place] [address]Chujulmblvc/100 WBC (Bld)0.8 %NormalProSelect Medical [facility] Comment on above:Performed By: #### NATHAN, 5124-3, 79804-2, 73907-2, 07103-1 #### [facility] ([id number]) [address], [facility] [place], [place] [address]Pkluljgvtas distribution width (RBC) [Ratio]12.9 %Normal 11.5-15.0ProSelect [facility], [facility] HospitalComment on above:Performed By: #### NATHAN, 5124- 3, 17796-6, 67778-4, 04318-2 #### [facility] ([id number]) [address], [facility] [place], [place] [address]Tbwxvlempg (Bld) [Volume fraction]39.2 %Scpesr59-37LffDaebmhZanesville City HospitalComment on above:Performed By: #### NATHAN, 5124-3, 86918-5, 64814- 5, 99199-8 #### [facility] ([id number]) [address] [address] [place], [place] [address]Xbqjiwxlpp (Bld) [Mass/Vol]13.0 g/yTNosajl42.7-15.5PHolmes County [facility] HospitalComment on above:Performed By: #### NATHAN, 5124-3, 19276-5, 55772- 5, 90511-6 #### [facility] ([id number]) [address], [address] [place], [place] [address]Meuvpmbiwta (Bld) [#/Vol]4.4 10*3/uLHigh1.0-3.5PHolmes County Joel [facility] HospitalComment on above:Performed By: #### NATHAN, 5124-3, 75171-5, 99196-2, 26609-2 #### [facility] ([id number]) [address], [address] [place], [place] [address]Daiuqdigxoc/100 WBC (Bld)29.4 %NormalProPremier Health [facility] Southca [facility] Comment on above:Performed By: #### NATHAN, 5124-3, 13620-7, 81974-7, 99741-6 #### [facility] ([id number]) [address], [facility] [place], [place] [address]FON (RBC) [Entitic mass]30.1 xzOhymot37-76CmxNxgntd Jackson HospitalComment on above:Performed By: #### NATHAN, 5124-3, 01183-4, 33048-8, 87963-5 #### [facility] ([id number]) [address] [place], [place] [address]OFIL (RBC) [Mass/Vol]33.2 g/tKOsrsip83-81YcwAnlwgu [place] HospitalComment on above:Performed By: #### NATHAN, 5124-3, 58763-2, 19654-1, 35544-2 #### [facility] ([id number]) [address], [facility] [address] [place], [place] [address]GHN (RBC) [Entitic vol]91 fCPtpgzl16-325KtvXsaczs Jackson HospitalComment on above:Performed By: #### NATHAN, 5124-3, 20216-9, 52757-3, 06928-0 #### [facility] ([id number]) [address], [facility] [address] [place], [place] [address]Swscqezdl (Bld) [#/Vol]0.9 10*3/uLNormal0-0.9ProMedica [facility] HospitalComment on above:Performed By: #### NATHAN, 5124-3, 82480-6, 37734-5, 98751-5 #### [facility] ([id number]) [address], [address] [place], [place] [address]Pvavglbyo/100 WBC (Bld)6.2 %NormalAultman Hospital Comment on above:Performed By: #### NATHAN, 5124-3, 10221-7, 56738-6, 30812-6 #### [facility] ([id number]) [address], [address] [place], [place] [address]Sxgficqtava/100 WBC (Bld)63.2 %NormalAultman Hospital Comment on above:Performed By: #### NATHAN, 5124-3, 65014-3, 16116-2, 21924-7 #### [facility] ([id number]) [address], [address] [place], [place] [address]Lzvksdsi mean volume (Bld) [Entitic vol]8.5 fLNormal7-12 ProMUniversity Hospitals Elyria Medical CenterComment on above:Performed By: #### NATHAN, 5124-3, 82162- 0, 32490-6, 49209-3 #### [facility] ([id number]) [address], [address] [place], [place] [address]Wrtrlhumn (Bld) [#/Vol]359 10*3/rKWkhhgf076-800PgnPlgofk [place] HospitalComment on above:Performed By: #### NATHAN, 5124-3, 78206-6, 24124-3, 36920-4 #### [facility] ([id number]) [address], [address] [place], [place] [address]EPB COUNT4.34 X10E12/LNormal3.80-5.20[facility] Comment on above:Performed By: #### NATHAN, 5124-3, 82727-5, 20204-4, 38086-9 #### [facility] ([id number]) [address], [address] [place], [place] [address]LCI (Bld) [#/Vol]14.9 10*3/uLHigh4.0-11.0Pro[facility] HospitalComment on above:Performed By: #### NATHAN, 5124-3, 34381-2, 50071-5, 42239-5 #### [facility] ([id number]) [address], [address] [place] [address]NHVJHRLTRFZCR METABOLIC PANELon 53-81-9580Ldckzgb [Mass/Vol]3.3 g/dLNormal3.2-5.3Pro[facility] HospitalComment on above:Performed By: #### NATHAN, 5124-3, 65329-3, 56985-4, 75248-0 #### [facility] ([id number]) [address], [address] [place] [address]TCT [Catalytic activity/Vol]70 U/WQadupx08-563WfgXrvruo Marcano HospitalComment on above:Performed By: #### NATHAN, 5124-3, 00123-4, 76330-8, 40195-3 #### [facility] ([id number]) [address], [address] [place] [address]QWP [Catalytic activity/Vol]10 U/LNormal0-31Pro[facility] HospitalComment on above:Performed By: #### NATHAN, 5124-3, 08340-3, 77439-6, 34504-3 #### [facility] ([id number]) [address], [address] [place], [place] [address]Ywtpf gap [Moles/Vol]12 mmol/LNormal5-15[facility] HospitalComment on above:Performed By: #### NATHAN, 5124-3, 41208-8, 02092-2, 89449-6 #### [facility] ([id number]) [address], [address] [place], [place] [address]PUR [Catalytic activity/Vol]15 U/LNormal0-41[facility] HospitalComment on above:Performed By: #### NATHAN, 5124-3, 54880-5, 99153-6, 68926-5 #### [facility] ([id number]) [address], [address] [place], [place] [address]Sxfckyiae [Mass/Vol]0.3 mg/dLNormal0.3-1.2PWillis-Knight[facility] Medical Center Marcano HospitalComment on above:Performed By: #### NATHAN, 5124-3, 36317-0, 94916-2, 06110-6 #### [facility] ([id number]) [address], [address] [place], [place] [address]Ckhhxxz [Mass/Vol]9.1 mg/dLNormal8.5-10.5PHolmes County [facility] HospitalComment on above:Performed By: #### NATHAN, 5124-3, 64331-8, 52790-8, 46250-8 #### [facility] ([id number]) [address], [address] [place], [place] [address]Lfhzspvw [Moles/Vol]103 mmol/VYlusmh57-624WxgZbeywe Marcano HospitalComment on above:Performed By: #### NATHAN, 5124-3, 01546-0, 33615-2, 59819-9 #### [facility] ([id number]) [address], [address] [place], [place] [address]WD7 [Moles/Vol]23 mmol/KJjxhrd32-52OpoZdvrqt [facility] Comment on above:Performed By: #### NATHAN, 5124-3, 40023-4, 09698-9, 95694-1 #### [facility] ([id number]) [address], [address] [place], [place] [address]Ehewezssmh [Mass/Vol]0.83 mg/dLNormal0.40-1.00Pro[facility]ica Marcano HospitalComment on above:Result Comment: METHOD TRACEABLE TO IDMS STANDARD Performed By: #### NATHAN, 5124-3, 61644-0, 98124-9, 29535-7 #### [facility] ([id number]) [address] [address] [place], [place] [address]dTMC (CKD-EPI) NON-RACE DEPENDENT>90Normal>59ProSelect Medical [facility] Hospital, Beachwood HospitalComment on above:Result Comment: Reported eGFR is based on the CKD-EPI 2020 equation that does not use a race coefficient.Performed By: #### NATHAN, 5124-3, 92167-2, 50772-0, 88341-2 #### [facility] ([id number]) [address], [facility] [place] [address] [place], [place] [address]Nnbhvzb [Mass/Vol]68 mg/uASbsegn21-08IzuPoszhgAultman Hospital Comment on above:Performed By: #### NATHAN, 5124-3, 11429-0, 06020-9, 70120-9 #### [facility] ([id number]) [address] [address]Ihgzvejyr [Moles/Vol]3.8 mmol/LNormal3.5-5.0ProZanesville City HospitalComment on above:Performed By: #### NATHAN, 5124-3, 14557-0, 19751-9, 15735-3 #### [facility] ([id number]) [address], [facility] [place], [place] [address]Btucrdp [Mass/Vol]6.4 g/dLNormal6.0-8.0[facility] Comment on above:Performed By: #### NATHAN, 5124-3, 18282-2, 38497-4, 11905-1 #### [facility] ([id number]) [address] [address] [place], [place] [address]Yxerax [Moles/Vol]138 mmol/HVgsltf064-091PxkWvzkoy [place] HospitalComment on above:Performed By: #### NATHAN, 5124-3, 33821-5, 54932-4, 92359-7 #### [facility] ([id number]) [address], [address] [place], [place] [address]Ssbh nitrogen [Mass/Vol]18 mg/dLNormal5-23ProSelect [facility], [facility] HospitalComment on above:Performed By: #### NATHAN, 5124-3, 91585-9, 00197-4, 94465-3 #### [facility] ([id number]) [address], [address] [place], [place] [address]DIC AND AUTO DIFFon 96-00-0078NXYOYWKQ BASOPHIL0.0 X10E9/LNormal 0.0-0.2ProMedica Jackson HospitalComment on above:Performed By: #### NATHAN, 5124-3, 74619-6, 35458-0, 46574-1 #### [facility] ([id number]) [address], [address] [place], [place] [address]JEWFYVKH KCNLYSKNCK97.3 X10E9/LHigh1.5-6.6ProSelect [facility], [facility] HospitalComment on above:Performed By: #### NATHAN, 5124-3, 54115-1, 12829-6, 89127-7 #### [facility] ([id number]) [address], [address] [place], [place] [address]Kdtgdmaay/100 WBC (Bld)0.3 %NormalProSelect Medical [facility], [facility] Comment on above:Performed By: #### NATHAN, 5124-3, 16948-3, 44342-6, 66725-3 #### [facility] ([id number]) [address], [address] [place], [place] [address]Putgcbwdnbz (Bld) [#/Vol]0.1 10*3/uLNormal0.0-0.4ProPremier Health [facility] Southca Jackson HospitalComment on above:Performed By: #### NATHAN, 5124-3, 64029-5, 27938- 5, 32886-3 #### [facility] ([id number]) [address], [address] [place], [place] [address]Rfqllqytrvg/100 WBC (Bld)0.7 %NormalProSelect Medical [facility], [facility] Comment on above:Performed By: #### NATHAN, 5124-3, 05355-0, 93996-4, 58568-2 #### [facility] ([id number]) [address], [facility] [place], [place] [address]Nsdlrumwbdw distribution width (RBC) [Ratio]13.3 %Normal 11.5-15.0ProSelect [facility], [facility] HospitalComment on above:Performed By: #### NATHAN, 5124- 3, 27017-2, 39465-2, 94891-6 #### [facility] ([id number]) [address] [address]Safaqouqza (Bld) [Volume fraction]40.3 %Diweyo92-84OviFqaikv [place] HospitalComment on above:Performed By: #### NATHAN, 5124-3, 61745-1, 50437- 5, 86482-6 #### [facility] ([id number]) [address] [address]Zxmjfylfrm (Bld) [Mass/Vol]13.4 g/zADchxrl75.7-15.5ProMedFulton County Health Center HospitalComment on above:Performed By: #### NATHAN, 5124-3, 72858-6, 94164- 5, 78227-9 #### [facility] ([id number]) [address] [address] [place], [place] [address]Leepfqsvggb (Bld) [#/Vol]3.0 10*3/uLNormal1.0-3.5PHolmes County [facility] Hospital HospitalComment on above:Performed By: #### NATHAN, 5124-3, 85795-3, 91515- 5, 41221-2 #### [facility] ([id number]) [address], [address], [place] [address]Tbtnscqorug/100 WBC (Bld)18.3 %NormalAultman Hospital Comment on above:Performed By: #### NATHAN, 5124-3, 32996-9, 04302-8, 10924-5 #### [facility] ([id number]) [address], [facility] [place], [place] [address]WSS (RBC) [Entitic mass]30.1 pxRhjpjw39-84WvhUrxrjk Jackson HospitalComment on above:Performed By: #### NATHAN, 5124-3, 05400-9, 14557-9, 05690-2 #### [facility] ([id number]) [address], [facility] [place], [place] [address]GGXJ (RBC) [Mass/Vol]33.3 g/mOMudjkv10-92MhiUvmxzh Jackson HospitalComment on above:Performed By: #### NATHAN, 5124-3, 50508-7, 50741-8, 93053-3 #### [facility] ([id number]) [address], [address] [place], [place] [address]HZW (RBC) [Entitic vol]90 qSKmynzn30-267PdbEkdzrt [place] HospitalComment on above:Performed By: #### NATHAN, 5124-3, 28626-2, 71802-8, 48662-1 #### [facility] ([id number]) [address], [address] [place], [place] [address]Ygxnjxrbv (Bld) [#/Vol]1.1 10*3/uLHigh0-0.9ProPremier [facility] Southca Jackson HospitalComment on above:Performed By: #### NATHAN, 5124-3, 03615-7, 15377-6, 75180-7 #### [facility] ([id number]) [address], [address] [place], [place] [address]Kgxukzqij/100 WBC (Bld)6.5 %NormalAultman Hospital Comment on above:Performed By: #### NATHAN, 5124-3, 27341-7, 31713-5, 76920-1 #### [facility] ([id number]) [address], [address] [place], [place] [address]Eypejbbhedc/100 WBC (Bld)74.2 %NormalAultman Hospital Comment on above:Performed By: #### NATHAN, 5124-3, 29253-6, 21064-8, 66018-3 #### [facility] ([id number]) [address], [address] [place], [place] [address]Hogadxwo mean volume (Bld) [Entitic vol]8.1 fLNormal7-12 ProMUniversity Hospitals Elyria Medical CenterComment on above:Performed By: #### NATHAN, 5124-3, 60473- 0, 05833-5, 20382-9 #### [facility] ([id number]) [address], [address] [place], [place] [address]Dpurigzbl (Bld) [#/Vol]353 10*3/aMKsrhyy621-134KaxCyulmu [place] HospitalComment on above:Performed By: #### NATHAN, 5124-3, 22977-6, 52672-0, 93847-4 #### [facility] ([id number]) [address], [address] [place], [place] [address]OGN COUNT4.46 X10E12/LNormal3.80-5.20[facility] Comment on above:Performed By: #### NATHAN, 5124-3, 79991-4, 94222-2, 92373-8 #### [facility] ([id number]) [address], [address] [place], [place] [address]QKU (Bld) [#/Vol]16.6 10*3/uLHigh4.0-11.0ProZanesville City HospitalComment on above:Performed By: #### NATHAN, 5124-3, 37056-7, 38181-9, 99159-3 #### [facility] ([id number]) [address], [address] [place], [place] [address]QQDOUKEZBMPTS METABOLIC PANELon 51-89-1026Fujdmus [Mass/Vol]3.2 g/dLNormal3.2-5.3Pro[facility]ica [facility] HospitalComment on above:Performed By: #### NATHAN, 5124-3, 36687-5, 19820-4, 46995-4 #### [facility] ([id number]) [address], [address] [place], [place] [address]PLZ [Catalytic activity/Vol]68 U/LMtnytx18-115SejDperjl [facility] HospitalComment on above:Performed By: #### NATHAN, 5124-3, 16085-7, 64597-0, 05534-2 #### [facility] ([id number]) [address], [address] [place], [place] [address]UAW [Catalytic activity/Vol]12 U/LNormal0-31Pro[facility]ica [facility] HospitalComment on above:Performed By: #### NATHAN, 5124-3, 04645-3, 98780-5, 29837-3 #### [facility] ([id number]) [address], [address] [place], [place] [address]Tkmaf gap [Moles/Vol]12 mmol/LNormal5-15[facility] HospitalComment on above:Performed By: #### NATHAN, 5124-3, 49719-5, 34841-3, 76178-3 #### [facility] ([id number]) [address], [address] [place], [place] [address]MXR [Catalytic activity/Vol]18 U/LNormal0-41[facility] HospitalComment on above:Performed By: #### NATHAN, 5124-3, 62594-8, 75643-2, 67088-3 #### [facility] ([id number]) [address] [address] [place], [place] [address]Bwqdguhar [Mass/Vol]0.3 mg/dLNormal0.3-1.2PMercy Health Perrysburg HospitalComment on above:Performed By: #### NATHAN, 5124-3, 32665-1, 58789-8, 43237-2 #### [facility] ([id number]) [address], [address] [place], [place] [address]Sclasoj [Mass/Vol]7.9 mg/dLLow8.5-10.5PMercy Health Perrysburg Hospital Comment on above:Performed By: #### NATHAN, 5124-3, 68187-2, 33043-0, 11058-6 #### [facility] ([id number]) [address] [address] [place], [place] [address]Bsaeeflt [Moles/Vol]101 mmol/XMkrtmw33-337NddGuhnoj [place] HospitalComment on above:Performed By: #### NATHAN, 5124-3, 90508-3, 02850-1, 74853-1 #### [facility] ([id number]) [address], [facility] [address] [place], [place] [address]TI5 [Moles/Vol]23 mmol/BTpkgpv25-83HfkVpjpppMercy Health [facility]sburg Hospital Comment on above:Performed By: #### NATHAN, 5124-3, 74301-6, 47534-2, 57395-0 #### [facility] ([id number]) [address] [address] [place], [place] [address]Wpbrkqwsdf [Mass/Vol]0.74 mg/dLNormal0.40-1.00ProZanesville City HospitalComment on above:Result Comment: METHOD TRACEABLE TO IDMS STANDARD Performed By: #### NATHAN, 5124-3, 16815-3, 30825-1, 92571-5 #### [facility] ([id number]) [address], [address] [place], [place] [address]aDJW (CKD-EPI) NON-RACE DEPENDENT>90Normal>59ProSelect [facility], Beach[facility] HospitalComment on above:Result Comment: Reported eGFR is based on the CKD-EPI 2020 equation that does not use a race coefficient.Performed By: #### NATHAN, 5124-3, 77142-3, 69002-7, 15569-1 #### [facility] ([id number]) [address], [address] [place], [place] [address]Azimaji [Mass/Vol]83 mg/tOTqysoe68-83ThbMzszbvAultman Hospital Comment on above:Performed By: #### NATHAN, 5124-3, 72896-9, 11299-0, 26457-2 #### [facility] ([id number]) [address], [address] [place], [place] [address]Afopqhxxp [Moles/Vol]4.1 mmol/LNormal3.5-5.0ProZanesville City HospitalComment on above:Performed By: #### NATHAN, 5124-3, 38866-3, 61306-4, 90958-4 #### [facility] ([id number]) [address], [address] [place], [place] [address]Kvczzbg [Mass/Vol]6.4 g/dLNormal6.0-8.0[facility] Comment on above:Performed By: #### NATHAN, 5124-3, 32022-2, 76080-9, 17001-0 #### [facility] ([id number]) [address], [address] [place], [place] [address]Czxztm [Moles/Vol]136 mmol/EOobsun549-505NppUirbgb [place] HospitalComment on above:Performed By: #### NATHAN, 5124-3, 65697-9, 54684-2, 29860-9 #### [facility] ([id number]) [address], [address] [place], [place] [address]Xvzg nitrogen [Mass/Vol]13 mg/dLNormal5-23Pro[facility] HospitalComment on above:Performed By: #### NATHAN, 5124-3, 68885-2, 50122-5, 53437-3 #### [facility] ([id number]) [address], [address] [place], [place] [address]DKB AND AUTO DIFFon 00-88-0259SIKUJYWF BASOPHIL0.1 X10E9/LNormal 0.0-0.2ProMedica Jackson HospitalComment on above:Performed By: #### NATHAN, 5124-3, 74204-6, 44617-1, 67128-9 #### [facility] ([id number]) [address], [address] [place], [place] [address]YFGWINQH VIZNROBXYH31.2 X10E9/LHigh1.5-6.6ProPremier Health [facility] Southca Jackson HospitalComment on above:Performed By: #### NATHAN, 5124-3, 86676-1, 62891-8, 75428-1 #### [facility] ([id number]) [address], [address] [place], [place] [address]Hzwxcwoha/100 WBC (Bld)0.6 %NormalAultman Hospital Comment on above:Performed By: #### NATHAN, 5124-3, 93888-3, 73504-6, 85678-4 #### [facility] ([id number]) [address], [address] [place], [place] [address]Gwllzpwmvgd (Bld) [#/Vol]0.1 10*3/uLNormal0.0-0.4ProPremier Health [facility] Southca Jackson HospitalComment on above:Performed By: #### NATHAN, 5124-3, 36099-2, 43224- 5, 10593-1 #### [facility] ([id number]) [address], [address] [place], [place] [address]Xdiktthyejj/100 WBC (Bld)0.5 %NormalAultman Hospital Comment on above:Performed By: #### NATHAN, 5124-3, 42618-4, 60348-0, 43780-2 #### [facility] ([id number]) [address], [facility] [address] [place], [place] [address]Zagnyybcozz distribution width (RBC) [Ratio]13.0 %Normal 11.5-15.0ProPremier Health [facility] Southca Jackson HospitalComment on above:Performed By: #### NATHAN, 5124- 3, 84143-4, 64881-5, 30196-9 #### [facility] ([id number]) [address], [facility] [place], [place] [address]Ysafdtvkms (Bld) [Volume fraction]37.4 %Tycwiz46-23QhuFrseoj [place] HospitalComment on above:Performed By: #### NATHAN, 5124-3, 92525-3, 62857- 5, 72265-2 #### [facility] ([id number]) [address] [address] [place], [place] [address]Wfzucchcsa (Bld) [Mass/Vol]13.0 g/iWKoobpw64.7-15.5ProMedFulton County Health Center HospitalComment on above:Performed By: #### NATHAN, 5124-3, 14339-3, 52982- 5, 26756-6 #### [facility] ([id number]) [address] [address] [place], [place] [address]Wgycvvadajj (Bld) [#/Vol]3.4 10*3/uLNormal1.0-3.5PHolmes County Joel [facility] Hospital HospitalComment on above:Performed By: #### NATHAN, 5124-3, 05314-7, 80400- 5, 34746-1 #### [facility] ([id number]) [address] [address] [place], [place] [address]Fmanalvmvpv/100 WBC (Bld)21.5 %NormalProSelect Medical [facility], [facility] Comment on above:Performed By: #### NATHAN, 5124-3, 15784-6, 57401-0, 23660-0 #### [facility] ([id number]) [address], [address] [place], [place] [address]EOM (RBC) [Entitic mass]30.8 sfFshgdf86-70SjnKiauoo [facility]ano HospitalComment on above:Performed By: #### NATHAN, 5124-3, 69033-7, 60325-5, 61399-4 #### [facility] ([id number]) [address], [address] [place], [place] [address]HGXQ (RBC) [Mass/Vol]34.9 g/dQYrqpla99-69LhuDqiiqq [facility] HospitalComment on above:Performed By: #### NATHAN, 5124-3, 96827-1, 83454-2, 45224-6 #### [facility] ([id number]) [address], [address] [place], [place] [address]EVG (RBC) [Entitic vol]88 cJYzxneb96-674TwsClfnob Jackson HospitalComment on above:Performed By: #### NATHAN, 5124-3, 09137-2, 67508-2, 40242-3 #### [facility] ([id number]) [address], [facility] [address] [place], [place] [address]Aiqzlfbhw (Bld) [#/Vol]0.8 10*3/uLNormal0-0.9ProMedica [facility] HospitalComment on above:Performed By: #### NATHAN, 5124-3, 17107-8, 45524-2, 88061-1 #### [facility] ([id number]) [address], [address] [place], [place] [address]Cdiahsqvo/100 WBC (Bld)5.2 %NormalProPremier Health [facility] Hospital Southca [facility] Comment on above:Performed By: #### NATHAN, 5124-3, 71602-9, 92242-9, 94101-4 #### [facility] ([id number]) [address], [address] [place], [place] [address]Oitaxkzbram/100 WBC (Bld)72.2 %NormalAultman Hospital Comment on above:Performed By: #### NATHAN, 5124-3, 28306-9, 40962-3, 94576-3 #### [facility] ([id number]) [address], [address] [place], [place] [address]Bazwmfoj mean volume (Bld) [Entitic vol]8.0 fLNormal7-12 ProMUniversity Hospitals Elyria Medical CenterComment on above:Performed By: #### NATHAN, 5124-3, 32864- 0, 83699-6, 89124-2 #### [facility] ([id number]) [address], [facility] [place], [place] [address]Izymxsnsh (Bld) [#/Vol]354 10*3/fTHtjzxm502-535ZqmCehyxz [place] HospitalComment on above:Performed By: #### NATHAN, 5124-3, 60014-2, 42706-4, 43961-5 #### [facility] ([id number]) [address], [facility] [address] [place], [place] [address]YEZ COUNT4.24 X10E12/LNormal3.80-5.20[facility] Comment on above:Performed By: #### NATHAN, 5124-3, 60049-6, 91129-1, 65492-4 #### [facility] ([id number]) [address], [address] [place], [place] [address]BGR (Bld) [#/Vol]15.6 10*3/uLHigh4.0-11.0ProZanesville City HospitalComment on above:Performed By: #### NATHAN, 5124-3, 52556-9, 20036-5, 05706-2 #### [facility] ([id number]) [address], [address] [place], [place] [address]YAEGHDYZ BASOPHIL0.1 X10E9/LNormal0.0-0.2Pro[facility] HospitalComment on above:Performed By: #### NATHAN, 5124-3, 93873-6, 15888-7, 84989-5 #### [facility] ([id number]) [address], [address] [place], [place] [address]NFBJPCRO THFBBHJQUM39.9 X10E9/LHigh1.5-6.6ProSelect Medical [facility], [facility] HospitalComment on above:Performed By: #### NATHAN, 5124-3, 88376-6, 40983-6, 28739-4 #### [facility] ([id number]) [address], [facility] [place], [place] [address]Cvdpiypvd/100 WBC (Bld)0.4 %NormalAultman Hospital Comment on above:Performed By: #### NATHAN, 5124-3, 79401-2, 18955-2, 48062-8 #### [facility] ([id number]) [address], [address] [place], [place] [address]Huzkhukbbml (Bld) [#/Vol]0.1 10*3/uLNormal0.0-0.4ProZanesville City HospitalComment on above:Performed By: #### NATHAN, 5124-3, 30048-4, 41359- 5, 67785-4 #### [facility] ([id number]) [address], [address] [place], [place] [address]Bpmmbvnqrtw/100 WBC (Bld)0.5 %NormalAultman Hospital Comment on above:Performed By: #### NATHAN, 5124-3, 96636-2, 83579-8, 98670-1 #### [facility] ([id number]) [address], [address] [place], [place] [address]Kwlqzvselga distribution width (RBC) [Ratio]13.2 %Normal 11.5-15.0ProSelect Medical [facility], [facility] HospitalComment on above:Performed By: #### NATHAN, 5124- 3, 61759-9, 67814-4, 68114-3 #### [facility] ([id number]) [address], [address] [place], [place] [address]Llcbykrcff (Bld) [Volume fraction]38.3 %Afjvso52-69JotSfsezd Jackson HospitalComment on above:Performed By: #### NATHAN, 5124-3, 99042-1, 55242- 5, 69292-5 #### [facility] ([id number]) [address], [address] [place], [place] [address]Cmpcnomkow (Bld) [Mass/Vol]12.9 g/hQTcjprh54.7-15.5ProMedFulton County Health Center HospitalComment on above:Performed By: #### NATHAN, 5124-3, 18035-9, 49111- 5, 48411-2 #### [facility] ([id number]) [address], [address] [place], [place] [address]Srricfveoda (Bld) [#/Vol]3.8 10*3/uLHigh1.0-3.5ProMedFulton County Health Center HospitalComment on above:Performed By: #### NATHAN, 5124-3, 93674-3, 47877-3, 54383-6 #### [facility] ([id number]) [address], [address] [place], [place] [address]Fhuphpxtauc/100 WBC (Bld)22.2 %NormalProSelect Medical [facility] Comment on above:Performed By: #### NATHAN, 5124-3, 16727-7, 64126-6, 28749-9 #### [facility] ([id number]) [address], [facility] [address] [place], [place] [address]KPB (RBC) [Entitic mass]30.4 qtNufzhh88-79FflErkmzb Jackson HospitalComment on above:Performed By: #### NATHAN, 5124-3, 12393-6, 00252-7, 17528-5 #### [facility] ([id number]) [address], [address] [place], [place] [address]YCFM (RBC) [Mass/Vol]33.8 g/sLPrfhrf51-80RtnKaeknh [place] HospitalComment on above:Performed By: #### NATHAN, 5124-3, 44832-0, 87210-8, 08426-9 #### [facility] ([id number]) [address], [address] [place], [place] [address]YSC (RBC) [Entitic vol]90 tLIsxxmr40-529HomDmdqtt Jackson HospitalComment on above:Performed By: #### NATHAN, 5124-3, 55890-3, 99297-7, 97160-3 #### [facility] ([id number]) [address], [address] [place], [place] [address]Zavbeuosy (Bld) [#/Vol]1.1 10*3/uLHigh0-0.9ProZanesville City HospitalComment on above:Performed By: #### NATHAN, 5124-3, 32680-2, 13311-6, 86069-0 #### [facility] ([id number]) [address], [address] [place], [place] [address]Yyscklxbg/100 WBC (Bld)6.5 %NormalAultman Hospital Comment on above:Performed By: #### NATHAN, 5124-3, 47341-2, 54474-2, 16595-6 #### [facility] ([id number]) [address], [address] [place], [place] [address]Lgvapcsahpg/100 WBC (Bld)70.4 %NormalAultman Hospital Comment on above:Performed By: #### NATHAN, 5124-3, 47513-9, 86598-0, 89788-6 #### [facility] ([id number]) [address], [address] [place], [place] [address]Upumaeua mean volume (Bld) [Entitic vol]8.2 fLNormal7-12 [facility] HospitalComment on above:Performed By: #### NATHAN, 5124-3, 97267- 0, 07090-1, 56824-8 #### [facility] ([id number]) [address], [address] [place], [place] [address]Svppgjotg (Bld) [#/Vol]336 10*3/bBGifqst149-217CpeAwopze Marcano HospitalComment on above:Performed By: #### NAHTAN, 5124-3, 88624-8, 96597-8, 64640-1 #### [facility] ([id number]) [address], [address] [place], [place] [address]KZS COUNT4.26 X10E12/LNormal3.80-5.20[facility] Comment on above:Performed By: #### NATHAN, 5124-3, 18904-5, 98057-0, 78150-6 #### [facility] ([id number]) [address], [address] [place], [place] [address]DCG (Bld) [#/Vol]17.0 10*3/uLHigh4.0-11.0Pro[facility] Marcano HospitalComment on above:Performed By: #### NATHAN, 5124-3, 14401-2, 01122-0, 45131-2 #### [facility] ([id number]) [address], [address] [place], [place] [address]TZINIODC BASOPHIL0.0 X10E9/LNormal0.0-0.2Pro[facility] Marcano HospitalComment on above:Performed By: #### NATHAN, 5124-3, 18460-6, 50176-6, 98282-2 #### [facility] ([id number]) [address], [address] [place], [place] [address]XLWJFCLS NFFAVGPPBR57.5 X10E9/LHigh1.5-6.6Pro[facility]ica Marcano HospitalComment on above:Performed By: #### NATHAN, 5124-3, 55307-3, 69567-8, 86328-3 #### [facility] ([id number]) [address], [address] [place], [place] [address]Tetwvxnqm/100 WBC (Bld)0.3 %[facility] Comment on above:Performed By: #### NATHAN, 5124-3, 73148-1, 19578-2, 53808-5 #### [facility] ([id number]) [address], [facility] [place] [address] [place], [place] [address]Gssgcbcerxy (Bld) [#/Vol]0.0 10*3/uLNormal0.0-0.4ProSelect Medical [facility] Clinic Rehabilitation Hospital, Beach[place] HospitalComment on above:Performed By: #### NATHAN, 5124-3, 44940-1, 25991- 5, 64049-3 #### [facility] ([id number]) [address], [address] [place], [place] [address]Gcnghnpqhnj/100 WBC (Bld)0.3 %NormalAultman Hospital Comment on above:Performed By: #### NATHAN, 5124-3, 77670-0, 12558-6, 43727-1 #### [facility] ([id number]) [address], [address] [place], [place] [address]Phxouxtvmel distribution width (RBC) [Ratio]13.2 %Normal 11.5-15.0Aultman HospitalComment on above:Performed By: #### NATHAN, 5124- 3, 27501-9, 19771-4, 17031-7 #### [facility] ([id number]) [address], [address] [place], [place] [address]Sgucmijhqp (Bld) [Volume fraction]38.6 %Vfdjak76-78QrbTlrhmo [place] HospitalComment on above:Performed By: #### NATHAN, 5124-3, 19610-6, 87919- 5, 04538-6 #### [facility] ([id number]) [address], [address] [place], [place] [address]Zcaydfvbwx (Bld) [Mass/Vol]13.2 g/qOPxluek30.7-15.5PHolmes County Joel [facility] Hospital HospitalComment on above:Performed By: #### NATHAN, 5124-3, 03797-3, 66052- 5, 13574-7 #### [facility] ([id number]) [address], [address] [place], [place] [address]Kflebisipsr (Bld) [#/Vol]4.2 10*3/uLHigh1.0-3.5PHolmes [facility] HospitalComment on above:Performed By: #### NATHAN, 5124-3, 20458-6, 20577-4, 98526-0 #### [facility] ([id number]) [address], [address] [place], [place] [address]Dbftxtpmjtz/100 WBC (Bld)24.8 %NormalProSelect Medical [facility] Comment on above:Performed By: #### NATHAN, 5124-3, 73103-2, 38637-7, 53414-3 #### [facility] ([id number]) [address], [address] [place], [place] [address]LGY (RBC) [Entitic mass]30.3 prHatrjp95-97ZadVthvin [place] HospitalComment on above:Performed By: #### NATHAN, 5124-3, 84765-2, 31905-3, 93351-1 #### [facility] ([id number]) [address], [address] [place], [place] [address]KOGB (RBC) [Mass/Vol]34.2 g/lKSmpumu06-12LkhUaxkcn [facility] HospitalComment on above:Performed By: #### NATHAN, 5124-3, 83660-7, 68447-1, 48206-7 #### [facility] ([id number]) [address], [address] [place] [address]TPF (RBC) [Entitic vol]89 kHKbswho50-992PqpPrmfse [place] HospitalComment on above:Performed By: #### NATHAN, 5124-3, 55640-0, 99494-3, 60850-9 #### [facility] ([id number]) [address], [address] [place], [place] [address]Fuyqjmshc (Bld) [#/Vol]1.2 10*3/uLHigh0-0.9ProZanesville City HospitalComment on above:Performed By: #### NATHAN, 5124-3, 53686-7, 28497-0, 19290-6 #### [facility] ([id number]) [address], [address] [place], [place] [address]Tjdkneyzq/100 WBC (Bld)7.2 %NormalAultman Hospital Comment on above:Performed By: #### NATHAN, 5124-3, 69960-7, 89728-9, 14559-8 #### [facility] ([id number]) [address], [address] [place], [place] [address]Uxszvhribpa/100 WBC (Bld)67.4 %NormalAultman Hospital Comment on above:Performed By: #### NATHAN, 5124-3, 22239-9, 44488-2, 88048-3 #### [facility] ([id number]) [address], [address] [place] [address]Yqmdngrr mean volume (Bld) [Entitic vol]8.3 fLNormal7-12 [facility] HospitalComment on above:Performed By: #### NATHAN, 5124-3, 28187- 0, 15794-9, 18499-2 #### [facility] ([id number]) [address], [address] [place], [place] [address]Vgkhbyyfr (Bld) [#/Vol]345 10*3/cVIbjkbl711-217VclFpgwai [place] HospitalComment on above:Performed By: #### NATHAN, 5124-3, 48560-7, 53774-0, 80985-9 #### [facility] ([id number]) [address], [address] [place] [address]DZJ COUNT4.35 X10E12/LNormal3.80-5.20ProPrem[facility] [place] [facility] Comment on above:Performed By: #### NATHAN, 5124-3, 11538-3, 09484-3, 86174-9 #### [facility] ([id number]) [address], [address] [place] [address]XCO (Bld) [#/Vol]17.1 10*3/uLHigh4.0-11.0Pro[facility] [place] HospitalComment on above:Performed By: #### NATHAN, 5124-3, 31935-7, 25442-4, 25739-9 #### [facility] ([id number]) [address], [address] [place] [address]ROCGRIVAILBTT METABOLIC PANELon 72-65-2605Fwufbqc [Mass/Vol]3.3 g/dLNormal3.2-5.3Pro[facility] [place] HospitalComment on above:Performed By: #### NATHAN, 5124-3, 40485-3, 89559-1, 01937-7 #### [facility] ([id number]) [address], [address] [place] [address]DCU [Catalytic activity/Vol]69 U/SItrnml58-034AjuGlswux [place] HospitalComment on above:Performed By: #### NATHAN, 5124-3, 36224-6, 25377-1, 69451-8 #### [facility] ([id number]) [address], [address] [place] [address]GDZ [Catalytic activity/Vol]10 U/LNormal0-31[facility] [place] HospitalComment on above:Performed By: #### NATHAN, 5124-3, 26813-5, 72600-6, 56057-9 #### [facility] ([id number]) [address], [address] [place], [place] [address]Rmwcy gap [Moles/Vol]10 mmol/LNormal5-15[facility] HospitalComment on above:Performed By: #### NATHAN, 5124-3, 97678-1, 96895-9, 03226-3 #### [facility] ([id number]) [address], [address] [place], [place] [address]KEH [Catalytic activity/Vol]21 U/LNormal0-41Pro[facility], [facility] HospitalComment on above:Performed By: #### NATHAN, 5124-3, 11127-5, 94540-3, 83109-5 #### [facility] ([id number]) [address], [address] [place], [place] [address]Szesytyfy [Mass/Vol]0.3 mg/dLNormal0.3-1.2PHolmes [facility] HospitalComment on above:Performed By: #### NATHAN, 5124-3, 92916-0, 38343-3, 81573-1 #### [facility] ([id number]) [address], [address] [place], [place] [address]Uqnavap [Mass/Vol]8.0 mg/dLLow8.5-10.5PHolmes [facility] Hospital Comment on above:Performed By: #### NATHAN, 5124-3, 76133-2, 89671-3, 83949-1 #### [facility] ([id number]) [address], [address] [place], [place] [address]Kfbkjgov [Moles/Vol]102 mmol/AMzwdms43-673YksEqtvyr [place] HospitalComment on above:Performed By: #### NATHAN, 5124-3, 00371-5, 83895-8, 22905-9 #### [facility] ([id number]) [address], [address] [place], [place] [address]CR9 [Moles/Vol]21 mmol/ELdb02-89NrpHzplnl [facility] HospitalComment on above:Performed By: #### NATHAN, 5124-3, 08767-2, 05785-9, 63468-7 #### [facility] ([id number]) [address], [address] [place], [place] [address]Bpbfnsueme [Mass/Vol]0.64 mg/dLNormal0.40-1.00ProSelect [facility], [facility] HospitalComment on above:Result Comment: METHOD TRACEABLE TO IDMS STANDARD Performed By: #### NATHAN, 5124-3, 65941-4, 05669-1, 04330-4 #### [facility] ([id number]) [address], [address] [place], [place] [address]gIMT (CKD-EPI) NON-RACE DEPENDENT>90Normal>59Pro[facility], [facility] HospitalComment on above:Result Comment: Reported eGFR is based on the CKD-EPI 2020 equation that does not use a race coefficient.Performed By: #### NATHAN, 5124-3, 91122-7, 95730-7, 34882-0 #### [facility] ([id number]) [address], [address] [place], [place] [address]Viofavt [Mass/Vol]95 mg/eRTcrqkl13-56WiqLlqmvl [facility] Comment on above:Performed By: #### NATHAN, 5124-3, 30424-2, 47362-7, 04299-3 #### [facility] ([id number]) [address], [address] [place], [place] [address]Pudidxhyo [Moles/Vol]4.1 mmol/LNormal3.5-5.0ProSelect [facility], [facility] HospitalComment on above:Performed By: #### NATHAN, 5124-3, 62939-2, 75232-5, 45984-7 #### [facility] ([id number]) [address], [address] [place], [place] [address]Fnzqkly [Mass/Vol]6.2 g/dLNormal6.0-8.0[facility] Comment on above:Performed By: #### NATHAN, 5124-3, 72839-4, 46394-5, 14545-8 #### [facility] ([id number]) [address], [address] [place], [place] [address]Kpjubt [Moles/Vol]133 mmol/MOkn187-418JlqLbwqnvAultman Hospital Comment on above:Performed By: #### NATHAN, 5124-3, 66407-8, 91113-8, 83282-2 #### [facility] ([id number]) [address], [address] [place], [place] [address]Guxy nitrogen [Mass/Vol]11 mg/dLNormal5-23ProZanesville City HospitalComment on above:Performed By: #### NATHAN, 5124-3, 89244-5, 72624-5, 32919-1 #### [facility] ([id number]) [address], [address] [place], [place] [address]Lmptxaa [Mass/Vol]3.3 g/dLNormal3.2-5.3PMercy Health [facility] Comment on above:Performed By: #### NATHAN, 5124-3, 66475-7, 45072-8, 65026-5 #### [facility] ([id number]) [address], [address] [place], [place] [address]JWW [Catalytic activity/Vol]61 U/IMpghzq51-225NkkPfnrgn [place] HospitalComment on above:Performed By: #### NATHAN, 5124-3, 85045-7, 83485-5, 02061-6 #### [facility] ([id number]) [address], [address] [place], [place] [address]SPE [Catalytic activity/Vol]12 U/LNormal0-31ProMedWise Health Surgical Hospital at Parkwayedo HospitalComment on above:Performed By: #### NATHAN, 5124-3, 41670-4, 19636-9, 69218-4 #### [facility] ([id number]) [address], [address] [place] [address]Fxcph gap [Moles/Vol]11 mmol/LNormal5-15Pro[facility], [facility] HospitalComment on above:Performed By: #### NATHAN, 5124-3, 31037-6, 52923-3, 44983-6 #### [facility] ([id number]) [address], [address] [place], [place] [address]BWA [Catalytic activity/Vol]23 U/LNormal0-41Pro[facility], [facility] HospitalComment on above:Performed By: #### NATHAN, 5124-3, 71981-8, 97874-5, 03844-4 #### [facility] ([id number]) [address], [address] [place], [place] [address]Zdvyfepdx [Mass/Vol]0.2 mg/dLLow0.3-1.2PMercy Health [facility] Comment on above:Performed By: #### NATHAN, 5124-3, 83427-2, 46682-4, 04812-6 #### [facility] ([id number]) [address], [address] [place], [place] [address]Hodvyxb [Mass/Vol]8.4 mg/dLLow8.5-10.5PMercy Health [facility] Comment on above:Performed By: #### NATHAN, 5124-3, 89721-7, 58976-5, 24213-1 #### [facility] ([id number]) [address], [address] [place], [place] [address]Tufrrpmn [Moles/Vol]103 mmol/BSmmjvj89-449FmhDqmsgw [place] HospitalComment on above:Performed By: #### NATHAN, 5124-3, 22950-4, 71610-7, 16508-6 #### [facility] ([id number]) [address], [address] [place], [place] [address]JY9 [Moles/Vol]20 mmol/SEpj07-20EinYdkyny [facility] HospitalComment on above:Performed By: #### NATHAN, 5124-3, 58114-4, 95869-1, 83651-1 #### [facility] ([id number]) [address], [address] [place], [place] [address]Hcgeesshrz [Mass/Vol]0.57 mg/dLNormal0.40-1.00Pro[facility], [facility] HospitalComment on above:Result Comment: METHOD TRACEABLE TO IDMS STANDARD Performed By: #### NATHAN, 5124-3, 05569-5, 96838-4, 38158-0 #### [facility] ([id number]) [address], [address] [place], [place] [address]eAEX (CKD-EPI) NON-RACE DEPENDENT>90Normal>59Pro[facility], [facility] HospitalComment on above:Result Comment: Reported eGFR is based on the CKD-EPI 2020 equation that does not use a race coefficient.Performed By: #### NATHAN, 5124-3, 48507-0, 83996-3, 53320-9 #### [facility] ([id number]) [address] [address] [place], [place] [address]Driuojz [Mass/Vol]77 mg/uZItipuv91-07XmgKiymiy [facility] Comment on above:Performed By: #### NATHAN, 5124-3, 40909-8, 86607-7, 64339-1 #### [facility] ([id number]) [address] [address] [place], [place] [address]Nmxsndbef [Moles/Vol]3.9 mmol/LNormal3.5-5.0Pro[facility], [facility] HospitalComment on above:Performed By: #### NATHAN, 5124-3, 59881-0, 38252-7, 01234-0 #### [facility] ([id number]) [address], [address] [place], [place] [address]Dzrdpie [Mass/Vol]6.2 g/dLNormal6.0-8.0[facility] Comment on above:Performed By: #### NATHAN, 5124-3, 00476-7, 29181-9, 27799-3 #### [facility] ([id number]) [address], [address] [place], [place] [address]Rdxvwn [Moles/Vol]134 mmol/TWghsha630-606VfgXbhvby [place] HospitalComment on above:Performed By: #### NATHAN, 5124-3, 75058-6, 77063-6, 80538-6 #### [facility] ([id number]) [address], [address] [place], [place] [address]Ejpe nitrogen [Mass/Vol]12 mg/dLNormal5-23ProZanesville City HospitalComment on above:Performed By: #### NATHAN, 5124-3, 35117-4, 17444-6, 41200-7 #### [facility] ([id number]) [address], [address] [place], [place] [address]Hwdtjqp [Mass/Vol]3.4 g/dLNormal3.2-5.3PMercy Health [facility] Comment on above:Performed By: #### NATHAN, 5124-3, 09470-0, 05347-8, 55851-7 #### [facility] ([id number]) [address], [address] [place], [place] [address]CFK [Catalytic activity/Vol]64 U/ONxqpii11-458BfoAlvhqq [place] HospitalComment on above:Performed By: #### NATHAN, 5124-3, 88430-5, 69382-7, 20571-3 #### [facility] ([id number]) [address], [address] [place], [place] [address]ONQ [Catalytic activity/Vol]13 U/LNormal0-31ProMedFulton [facility] Center HospitalComment on above:Performed By: #### NATHAN, 5124-3, 78513-4, 43921-2, 95976-3 #### [facility] ([id number]) [address], [address] [place], [place] [address]Cjlza gap [Moles/Vol]12 mmol/LNormal5-15ProPrem[facility] Southca [facility] HospitalComment on above:Performed By: #### NATHAN, 5124-3, 69316-3, 00267-7, 54631-0 #### [facility] ([id number]) [address], [address] [place], [place] [address]ZST [Catalytic activity/Vol]22 U/LNormal0-41Pro[facility], [facility] HospitalComment on above:Performed By: #### NATHAN, 5124-3, 82429-5, 84958-9, 69676-4 #### [facility] ([id number]) [address], [address] [place], [place] [address]Tfvvilbmg [Mass/Vol]0.2 mg/dLLow0.3-1.2PHolmes [facility] Hospital Comment on above:Performed By: #### NATHAN, 5124-3, 85673-6, 71906-1, 69239-8 #### [facility] ([id number]) [address], [address] [place], [place] [address]Kextytf [Mass/Vol]8.9 mg/dLNormal8.5-10.5PHolmes [facility] HospitalComment on above:Performed By: #### NATHAN, 5124-3, 24810-3, 94158-2, 14775-9 #### [facility] ([id number]) [address], [address] [place], [place] [address]Cestgbim [Moles/Vol]105 mmol/NBufekw75-789MakQvvtzg [place] HospitalComment on above:Performed By: #### NATHAN, 5124-3, 21586-6, 66283-7, 59849-5 #### [facility] ([id number]) [address], [address] [place], [place] [address]TO8 [Moles/Vol]20 mmol/DYca05-94IvtRialat [facility] HospitalComment on above:Performed By: #### NATHAN, 5124-3, 55535-8, 53171-5, 93608-0 #### [facility] ([id number]) [address], [address] [place], [place] [address]Jjznjpuwmc [Mass/Vol]0.57 mg/dLNormal0.40-1.00ProZanesville City HospitalComment on above:Result Comment: METHOD TRACEABLE TO IDMS STANDARD Performed By: #### NATHAN, 5124-3, 94373-2, 40292-2, 88429-9 #### [facility] ([id number]) [address], [facility] [address] [place], [place] [address]rOKV (CKD-EPI) NON-RACE DEPENDENT>90Normal>59Pro[facility], [facility] HospitalComment on above:Result Comment: Reported eGFR is based on the CKD-EPI 2020 equation that does not use a race coefficient.Performed By: #### NATHAN, 5124-3, 96113-0, 31649-1, 17939-0 #### [facility] ([id number]) [address] [address] [place], [place] [address]Olmvsay [Mass/Vol]77 mg/jUGhirgd58-72LxoTlmplh [facility] Comment on above:Performed By: #### NATHAN, 5124-3, 05406-6, 68198-4, 86312-2 #### [facility] ([id number]) [address] [address] [place], [place] [address]Jyuzacenx [Moles/Vol]3.9 mmol/LNormal3.5-5.0Pro[facility], [facility] HospitalComment on above:Performed By: #### NATHAN, 5124-3, 70150-1, 01673-5, 80232-1 #### [facility] ([id number]) [address], [address] [place], [place] [address]Umgnhfb [Mass/Vol]6.3 g/dLNormal6.0-8.0Pro[facility] Comment on above:Performed By: #### NATHAN, 5124-3, 80413-3, 57214-3, 42946-1 #### [facility] ([id number]) [address], [address] [place], [place] [address]Grbqko [Moles/Vol]137 mmol/QVbabpi636-822JhfOsdsun [place] HospitalComment on above:Performed By: #### NATHAN, 5124-3, 01179-6, 89085-1, 99118-7 #### [facility] ([id number]) [address], [address] [place], [place] [address]Rtuc nitrogen [Mass/Vol]15 mg/dLNormal5-23Pro[facility], [facility] HospitalComment on above:Performed By: #### NATHAN, 5124-3, 18486-7, 66580-1, 93975-3 #### [facility] ([id number]) [address], [address] [place], [place] [address]LQX [Catalytic activity/Vol]on 66-85-1298AOR193 U/UNrxnyc161-380 ProMencompass health rehabilitation hospital of north alabamaa [place] HospitalComment on above:Performed By: #### NATHAN, 5124-3, 47489- 0, 12197-7, 32844-2 #### [facility] ([id number]) [address], [address] [place], [place] [address]CUNU ACIDon 89-58-0377Dpvdk [Mass/Vol]6.3 mg/dLNormal2.6-7.2 ProMencompass health rehabilitation hospital of north alabamaa [place] HospitalComment on above:Performed By: #### NATHAN, 5124-3, 95107- 0, 28390-3, 90328-6 #### [facility] ([id number]) [address], [address] [place], [place] [address]VIK AND AUTO DIFFon 04-21-4021JZPGESGJ BASOPHIL0.0 X10E9/LNormal 0.0-0.2ProMedica [facility] HospitalComment on above:Performed By: #### NATHAN, 5124-3, 19739-0, 92542-1, 74235-5 #### [facility] ([id number]) [address], [address] [place], [place] [address]RTSDUJGZ NEUTROPHIL7.9 X10E9/LHigh1.5-6.6ProPremier [facility] Southca [facility] HospitalComment on above:Performed By: #### NATHAN, 5124-3, 39111-1, 30626-2, 18924-4 #### [facility] ([id number]) [address] [place], [place] [address]Jiggbvnfb/100 WBC (Bld)0.2 %NormalAultman Hospital Comment on above:Performed By: #### NATHAN, 5124-3, 71501-5, 63468-4, 00347-2 #### [facility] ([id number]) [address] [place], [place] [address]Pixtrshbybo (Bld) [#/Vol]0.0 10*3/uLNormal0.0-0.4ProZanesville City HospitalComment on above:Performed By: #### NATHAN, 5124-3, 31137-9, 45978- 5, 47867-8 #### [facility] ([id number]) [address] [address] [place], [place] [address]Fovntypkaxy/100 WBC (Bld)0.2 %NormalAultman Hospital Comment on above:Performed By: #### NATHAN, 5124-3, 11512-2, 18684-4, 35859-6 #### [facility] ([id number]) [address], [address] [place], [place] [address]Hqywpryzprt distribution width (RBC) [Ratio]13.1 %Normal 11.5-15.0ProSelect [facility], [facility] HospitalComment on above:Performed By: #### NATHAN, 5124- 3, 08626-2, 16511-7, 40360-2 #### [facility] ([id number]) [address], [address] [place], [place] [address]Mpowmxxipv (Bld) [Volume fraction]37.6 %Mavush37-18VgrCsakmh [place] HospitalComment on above:Performed By: #### NATHAN, 5124-3, 10008-6, 34736- 5, 04768-3 #### [facility] ([id number]) [address], [facility] [address] [place], [place] [address]Vatgvzukcm (Bld) [Mass/Vol]12.6 g/nDOtzxnf96.7-15.5ProMedFulton County Health Center HospitalComment on above:Performed By: #### NATHAN, 5124-3, 02187-0, 10287- 5, 60561-8 #### [facility] ([id number]) [address], [address] [place], [place] [address]Txrvvcqahlx (Bld) [#/Vol]3.4 10*3/uLNormal1.0-3.5PHolmes [facility] HospitalComment on above:Performed By: #### NATHAN, 5124-3, 84369-4, 06383- 5, 30526-2 #### [facility] ([id number]) [address], [address] [place], [place] [address]Lwaabkvmnqz/100 WBC (Bld)27.5 %NormalProSelect Medical [facility] Comment on above:Performed By: #### NATHAN, 5124-3, 25743-4, 00289-3, 30041-3 #### [facility] ([id number]) [address], [facility] [address] [place], [place] [address]DDF (RBC) [Entitic mass]30.2 hfGsflcy45-97ZhnGswrgt [facility] HospitalComment on above:Performed By: #### NATHAN, 5124-3, 45051-8, 20361-6, 28276-4 #### [facility] ([id number]) [address], [address] [place], [place] [address]WSWJ (RBC) [Mass/Vol]33.4 g/bSRoaure34-62IydSeback [facility] HospitalComment on above:Performed By: #### NATHAN, 5124-3, 74789-8, 09098-6, 02781-6 #### [facility] ([id number]) [address], [address] [place], [place] [address]NBX (RBC) [Entitic vol]90 pSWmnxyy27-361WzvTtpyyg [facility] HospitalComment on above:Performed By: #### NATHAN, 5124-3, 26462-6, 25325-0, 87136-9 #### [facility] ([id number]) [address], [address] [place], [place] [address]Qdeeeknss (Bld) [#/Vol]1.1 10*3/uLHigh0-0.9ProSelect Medical [facility], [facility] HospitalComment on above:Performed By: #### NATHAN, 5124-3, 18078-4, 54223-2, 85993-8 #### [facility] ([id number]) [address], [address] [place], [place] [address]Aymogoung/100 WBC (Bld)8.4 %NormalAultman Hospital Comment on above:Performed By: #### NATHAN, 5124-3, 59606-3, 64528-1, 73496-2 #### [facility] ([id number]) [address], [address] [place], [place] [address]Wlipemsuzji/100 WBC (Bld)63.7 %NormalAultman Hospital Comment on above:Performed By: #### NATHAN, 5124-3, 98938-1, 27729-2, 94544-7 #### [facility] ([id number]) [address], [address] [place], [place] [address]Kzmqsjkw mean volume (Bld) [Entitic vol]8.3 fLNormal7-12 [facility] HospitalComment on above:Performed By: #### NATHAN, 5124-3, 16455- 0, 48386-6, 67655-4 #### [facility] ([id number]) [address], [address] [place], [place] [address]Fzkcnyqwx (Bld) [#/Vol]319 10*3/sOXkyntw149-237NjgQwoxbl Marcaon HospitalComment on above:Performed By: #### NATHAN, 5124-3, 83392-9, 99887-2, 47938-7 #### [facility] ([id number]) [address], [address] [place], [place] [address]LUK COUNT4.16 X10E12/LNormal3.80-5.20[facility] Comment on above:Performed By: #### NATHAN, 5124-3, 80360-3, 41966-2, 76659-1 #### [facility] ([id number]) [address], [address] [place], [place] [address]CTL (Bld) [#/Vol]12.5 10*3/uLHigh4.0-11.0[facility] HospitalComment on above:Performed By: #### NATHAN, 5124-3, 01180-1, 64554-2, 75439-4 #### [facility] ([id number]) [address], [address] [place], [place] [address]GYXKZFGLKZSFG METABOLIC PANELon 94-22-6881Esyyeqq [Mass/Vol]3.2 g/dLNormal3.2-5.3[facility] HospitalComment on above:Performed By: #### NATHAN, 5124-3, 06094-3, 94562-0, 26745-9 #### [facility] ([id number]) [address], [address] [place], [place] [address]WDT [Catalytic activity/Vol]57 U/UYwnuzg69-367PymShemvl Marcano HospitalComment on above:Performed By: #### NATHAN, 5124-3, 85726-7, 75637-9, 16048-5 #### [facility] ([id number]) [address], [address] [place], [place] [address]QYC [Catalytic activity/Vol]12 U/LNormal0-31[facility] HospitalComment on above:Performed By: #### NATHAN, 5124-3, 45423-6, 03764-3, 84082-8 #### [facility] ([id number]) [address], [address] [place], [place] [address]Pkdsi gap [Moles/Vol]13 mmol/LNormal5-15[facility] HospitalComment on above:Performed By: #### NATHAN, 5124-3, 18389-4, 16597-3, 11986-0 #### [facility] ([id number]) [address], [address] [place], [place] [address]PSG [Catalytic activity/Vol]19 U/LNormal0-41[facility] HospitalComment on above:Performed By: #### NATHAN, 5124-3, 46323-4, 51616-6, 82071-9 #### [facility] ([id number]) [address], [address] [place], [place] [address]Wyxjyboza [Mass/Vol]0.2 mg/dLLow0.3-1.2ProMedF[facility] Comment on above:Performed By: #### NATHAN, 5124-3, 54529-6, 59127-0, 40305-0 #### [place] [facility] ([id number]) [address], [address] [place], [place] [address]Dwzdnpg [Mass/Vol]8.9 mg/dLNormal8.5-10.5ProMedFulton County Health Center HospitalComment on above:Performed By: #### NATHAN, 5124-3, 81533-4, 60774-7, 28289-5 #### [facility] ([id number]) [address], [address] [place], [place] [address]Wrsbvqws [Moles/Vol]105 mmol/DIqpphp39-586KyrLquikn [place] HospitalComment on above:Performed By: #### NATHAN, 5124-3, 80479-3, 17717-6, 12559-9 #### [facility] ([id number]) [address], [address] [place], [place] [address]UJ8 [Moles/Vol]21 mmol/YXhg78-66FtnVyugzl [place] HospitalComment on above:Performed By: #### NATHAN, 5124-3, 28304-2, 62755-0, 12158-9 #### [facility] ([id number]) [address], [address] [place], [place] [address]Lnhsplqloc [Mass/Vol]0.64 mg/dLNormal0.40-1.00ProSelect [facility], [facility] HospitalComment on above:Result Comment: METHOD TRACEABLE TO IDMS STANDARD Performed By: #### NATHAN, 5124-3, 15035-5, 52471-6, 61481-7 #### [facility] ([id number]) [address], [address] [place], [place] [address]kRCX (CKD-EPI) NON-RACE DEPENDENT>90Normal>59ProPremier Health [facility] Southca Jackson HospitalComment on above:Result Comment: Reported eGFR is based on the CKD-EPI 2020 equation that does not use a race coefficient.Performed By: #### NATHAN, 5124-3, 36139-3, 25542-0, 27373-8 #### [facility] ([id number]) [address], [address] [place], [place] [address]Mdndspi [Mass/Vol]74 mg/sWAzrved64-93WwvRjvknc [facility] Comment on above:Performed By: #### NATHAN, 5124-3, 09144-8, 82321-8, 35254-5 #### [facility] ([id number]) [address], [address] [place], [place] [address]Wrcgirtkg [Moles/Vol]3.9 mmol/LNormal3.5-5.0ProSelect [facility], [facility] HospitalComment on above:Performed By: #### NATHAN, 5124-3, 11734-0, 47196-6, 14727-3 #### [facility] ([id number]) [address], [address] [place], [place] [address]Sdwjwgd [Mass/Vol]6.0 g/dLNormal6.0-8.0[facility] Comment on above:Performed By: #### NATHAN, 5124-3, 10757-7, 02846-5, 37628-0 #### [facility] ([id number]) [address], [address] [place], [place] [address]Glyiyz [Moles/Vol]139 mmol/JRprxrq631-803RfvFhclab [place] HospitalComment on above:Performed By: #### NATHAN, 5124-3, 91900-9, 38490-5, 25790-0 #### [facility] ([id number]) [address], [address] [place], [place] [address]Ixof nitrogen [Mass/Vol]19 mg/dLNormal5-23Pro[facility], [facility] HospitalComment on above:Performed By: #### NATHAN, 5124-3, 02411-0, 44434-2, 52787-8 #### [facility] ([id number]) [address], [address] [place], [place] [address]JMH AND AUTO DIFFon 42-16-8834CFAGPDPQ BASOPHIL0.0 X10E9/LNormal 0.0-0.2ProMedFulton County Health Center HospitalComment on above:Performed By: #### NATHAN, 5124-3, 92506-1, 25508-2, 34986-8 #### [facility] ([id number]) [address], [address] [place], [place] [address]LAZGUIWT FOHPKDPIMG65.0 X10E9/LHigh1.5-6.6Pro[facility], [facility] HospitalComment on above:Performed By: #### NATHAN, 5124-3, 22613-3, 28439-6, 75987-7 #### [facility] ([id number]) [address], [address] [place], [place] [address]Ueymanqwr/100 WBC (Bld)0.2 %NormalAultman Hospital Comment on above:Performed By: #### NATHAN, 5124-3, 66274-6, 59596-9, 58686-5 #### [facility] ([id number]) [address], [address] [place], [place] [address]Ogbdeedgxmg (Bld) [#/Vol]0.0 10*3/uLNormal0.0-0.4ProSelect [facility], [facility] HospitalComment on above:Performed By: #### NATHAN, 5124-3, 46780-2, 94696- 5, 31756-2 #### [facility] ([id number]) [address], [address] [place], [place] [address]Qfoebilthmn/100 WBC (Bld)0.0 %NormalProZanesville City Hospital Comment on above:Performed By: #### NATHAN, 5124-3, 74561-5, 70270-7, 37762-8 #### [facility] ([id number]) [address], [address] [place], [place] [address]Wfjzrxfhibp distribution width (RBC) [Ratio]13.4 %Normal 11.5-15.0Pro[facility], [facility] HospitalComment on above:Performed By: #### NATHAN, 5124- 3, 58025-4, 93404-6, 49482-6 #### [facility] ([id number]) [address], [address] [place] [address]Ybfnthtfwv (Bld) [Volume fraction]36.3 %Uqxeci36-47DwzWzwqgk [place] HospitalComment on above:Performed By: #### NATHAN, 5124-3, 32330-3, 32362- 5, 77647-6 #### [facility] ([id number]) [address], [address] [place], [place] [address]Aiwxfaairi (Bld) [Mass/Vol]12.5 g/gEOkepwn79.7-15.5ProMedica Jackson HospitalComment on above:Performed By: #### NATHAN, 5124-3, 91735-5, 58372- 5, 85014-5 #### [facility] ([id number]) [address], [address] [place], [place] [address]Cvutzpjzyal (Bld) [#/Vol]1.9 10*3/uLNormal1.0-3.5ProMedFulton County Health Center HospitalComment on above:Performed By: #### NATHAN, 5124-3, 75303-6, 57534- 5, 97660-7 #### [facility] ([id number]) [address], [address] [place], [place] [address]Ikynawvlnpg/100 WBC (Bld)12.8 %NormalProSelect Medical [facility] Comment on above:Performed By: #### NATHAN, 5124-3, 92994-0, 87173-5, 39491-3 #### [facility] ([id number]) [address], [address] [place], [place] [address]HOC (RBC) [Entitic mass]31.0 ueYfqjcp24-17RrpQyqcar [place] HospitalComment on above:Performed By: #### NATHAN, 5124-3, 37167-6, 86238-5, 96159-6 #### [facility] ([id number]) [address], [address] [place], [place] [address]EDQH (RBC) [Mass/Vol]34.3 g/nXFfwrvq11-86XsrRnwstg [facility] HospitalComment on above:Performed By: #### NATHAN, 5124-3, 72121-1, 99267-2, 28500-2 #### [facility] ([id number]) [address], [address] [place], [place] [address]XDD (RBC) [Entitic vol]90 oKOdzgat26-866ZocHzoppq [facility] HospitalComment on above:Performed By: #### NATHAN, 5124-3, 10795-9, 54040-1, 04653-8 #### [facility] ([id number]) [address], [address] [place], [place] [address]Ycolujobr (Bld) [#/Vol]0.9 10*3/uLNormal0-0.9Pro[facility], [facility] HospitalComment on above:Performed By: #### NATHAN, 5124-3, 69746-9, 54926-2, 51580-8 #### [facility] ([id number]) [address], [address] [place], [place] [address]Qhewaxxbe/100 WBC (Bld)6.2 %NormalAultman Hospital Comment on above:Performed By: #### NATHAN, 5124-3, 43519-4, 27557-7, 69913-5 #### [facility] ([id number]) [address], [address] [place], [place] [address]Cqjabcpmzpx/100 WBC (Bld)80.8 %NormalAultman Hospital Comment on above:Performed By: #### NATHAN, 5124-3, 23079-7, 54787-8, 06780-2 #### [facility] ([id number]) [address], [address] [place], [place] [address]Cubehask mean volume (Bld) [Entitic vol]8.4 fLNormal7-12 [facility] HospitalComment on above:Performed By: #### NATHAN, 5124-3, 73209- 0, 38269-0, 15134-3 #### [facility] ([id number]) [address], [address] [place], [place] [address]Ctstznijn (Bld) [#/Vol]337 10*3/kAXitjms349-164GibAtiodr [place] HospitalComment on above:Performed By: #### NATHAN, 5124-3, 09615-7, 91801-6, 32012-4 #### [facility] ([id number]) [address], [address] [place], [place] [address]YEJ COUNT4.02 X10E12/LNormal3.80-5.20Pro[facility] Comment on above:Performed By: #### NATHAN, 5124-3, 04892-8, 19879-0, 73827-9 #### [facility] ([id number]) [address], [address] [place], [place] [address]SQQ (Bld) [#/Vol]14.9 10*3/uLHigh4.0-11.0ProPremier Health [facility] Southca [facility] HospitalComment on above:Performed By: #### NATHAN, 5124-3, 62871-5, 32029-9, 64136-4 #### [facility] ([id number]) [address], [address] [place], [place] [address]FZILYDENSDJAT METABOLIC PANELon 89-72-2215Llwaxpa [Mass/Vol]3.4 g/dLNormal3.2-5.3Pro[facility] HospitalComment on above:Performed By: #### NATHAN, 5124-3, 07237-4, 63232-0, 48370-5 #### [facility] ([id number]) [address], [address] [place], [place] [address]UXD [Catalytic activity/Vol]67 U/DYqmxmz52-286QeoKssllh [facility] HospitalComment on above:Performed By: #### NATHAN, 5124-3, 42434-0, 27408-7, 89767-5 #### [facility] ([id number]) [address], [address] [place], [place] [address]NMH [Catalytic activity/Vol]15 U/LNormal0-31ProMedFulton County Health Center HospitalComment on above:Performed By: #### NATHAN, 5124-3, 23966-2, 51915-8, 69457-9 #### [facility] ([id number]) [address], [address] [place], [place] [address]Ppxut gap [Moles/Vol]9 mmol/LNormal5-15[facility] Comment on above:Performed By: #### NATHAN, 5124-3, 53909-9, 53266-7, 77728-2 #### [facility] ([id number]) [address], [address] [place], [place] [address]KRY [Catalytic activity/Vol]20 U/LNormal0-41Pro[facility], [facility] HospitalComment on above:Performed By: #### NATHAN, 5124-3, 36671-1, 01831-9, 58037-2 #### [facility] ([id number]) [address], [address] [place], [place] [address]Oaehnixmt [Mass/Vol]0.2 mg/dLLow0.3-1.2PMercy Health [facility] Comment on above:Performed By: #### NATHAN, 5124-3, 45809-0, 68937-6, 01833-1 #### [facility] ([id number]) [address], [address] [place], [place] [address]Kpjptct [Mass/Vol]8.9 mg/dLNormal8.5-10.5PHolmes County [facility] HospitalComment on above:Performed By: #### NATHAN, 5124-3, 13959-9, 97618-3, 73360-4 #### [facility] ([id number]) [address], [address] [place], [place] [address]Vpfgiqei [Moles/Vol]106 mmol/GRebbwe63-998OjtZfnmvc [place] HospitalComment on above:Performed By: #### NATHAN, 5124-3, 90314-5, 48975-8, 99632-9 #### [facility] ([id number]) [address], [address] [place], [place] [address]YG8 [Moles/Vol]21 mmol/JVra26-05NfaKucevyMary Rutan HospitalComment on above:Performed By: #### NATHAN, 5124-3, 39127-3, 87687-7, 27256-6 #### [facility] ([id number]) [address], [address] [place], [place] [address]Ueeupmhccv [Mass/Vol]0.63 mg/dLNormal0.40-1.00ProZanesville City HospitalComment on above:Result Comment: METHOD TRACEABLE TO IDMS STANDARD Performed By: #### NATHAN, 5124-3, 04374-4, 61761-3, 81740-7 #### [facility] ([id number]) [address] [address] [place], [place] [address]mJRR (CKD-EPI) NON-RACE DEPENDENT>90Normal>59ProZanesville City HospitalComment on above:Result Comment: Reported eGFR is based on the CKD-EPI 2020 equation that does not use a race coefficient.Performed By: #### NATHAN, 5124-3, 77148-1, 16265-8, 69803-6 #### [facility] ([id number]) [address], [address] [place], [place] [address]Wiighvn [Mass/Vol]101 mg/iXYkhy65-65VerXmpfzu [facility] Comment on above:Performed By: #### NATHAN, 5124-3, 74148-9, 46423-7, 64975-7 #### [facility] ([id number]) [address], [address] [place], [place] [address]Npzhcoocz [Moles/Vol]4.2 mmol/LNormal3.5-5.0ProZanesville City HospitalComment on above:Performed By: #### NATHAN, 5124-3, 65704-5, 55875-6, 24272-7 #### [facility] ([id number]) [address], [address] [place], [place] [address]Otgpzlr [Mass/Vol]6.3 g/dLNormal6.0-8.0[facility] Comment on above:Performed By: #### NATHAN, 5124-3, 04314-7, 70743-8, 46914-4 #### [facility] ([id number]) [address], [facility] [address] [place], [place] [address]Kefugx [Moles/Vol]136 mmol/VRlwgzn803-910XljKsecrs [place] HospitalComment on above:Performed By: #### NATHAN, 5124-3, 17224-9, 95822-6, 36165-0 #### [facility] ([id number]) [address], [facility] [place], [place] [address]Sbjg nitrogen [Mass/Vol]17 mg/dLNormal5-23ProZanesville City HospitalComment on above:Performed By: #### NATHAN, 5124-3, 96557-2, 34416-6, 19903-2 #### [facility] ([id number]) [address], [facility] [place], [place] [address]Eukhrdq Glucometer (BldC) [Mass/Vol]on 55-20-1943Ncwyhpv [Mass/Vol]89 mg/vHRtgulx54-72LcxDwpwzeAultman Hospital24 HR URINE TOTAL PROTEIN on 70-35-1968OXDGJ TOTAL OOODHYZ438 mg/05fAgco3-147YljVohqwjZanesville City Hospital Comment on above:Performed By: #### NATHAN, 5124-3, 65384-0, 53150-7, 40706-2 #### [facility] ([id number]) [address], [address] [place], [place] [address]THX AND AUTO DIFFon 40-60-3660AVSCABTR BASOPHIL0.0 X10E9/LNormal 0.0-0.2ProMed[facility] HospitalComment on above:Performed By: #### NATHAN, 5124-3, 19496-5, 46660-3, 94002-3 #### [facility] ([id number]) [address], [address] [place], [place] [address]GRTMVIWU IKOGFXGBSL85.5 X10E9/LHigh1.5-6.6ProPremier Health [facility] Southca [facility] HospitalComment on above:Performed By: #### NATHAN, 5124-3, 86501-6, 30753-8, 45052-2 #### [facility] ([id number]) [address] [facility] [place], [place] [address]Sexvacloe/100 WBC (Bld)0.1 %NormalAultman Hospital Comment on above:Performed By: #### NATHAN, 5124-3, 50908-4, 81848-6, 87537-5 #### [facility] ([id number]) [address], [address] [place], [place] [address]Dpldjkamgne (Bld) [#/Vol]0.0 10*3/uLNormal0.0-0.4ProZanesville City HospitalComment on above:Performed By: #### NATHAN, 5124-3, 05561-5, 65328- 5, 50119-9 #### [facility] ([id number]) [address], [address] [place], [place] [address]Jrfztbckxpz/100 WBC (Bld)0.0 %[facility] Comment on above:Performed By: #### NATHAN, 5124-3, 67308-3, 28279-9, 60988-7 #### [facility] ([id number]) [address], [address] [place] [address]Rayowquogzo distribution width (RBC) [Ratio]13.5 %Normal 11.5-15.0ProZanesville City HospitalComment on above:Performed By: #### NATHAN, 5124- 3, 89498-2, 24131-5, 89424-1 #### [facility] ([id number]) [address], [facility] [address] [place] [address]Djatevovpv (Bld) [Volume fraction]36.1 %Hgvllj73-74OpcAwlvtvZanesville City HospitalComment on above:Performed By: #### NATHAN, 5124-3, 58217-7, 81190- 5, 56349-0 #### [facility] ([id number]) [address] [address] [place], [place] [address]Qygzhiivof (Bld) [Mass/Vol]12.2 g/jVMxjgox20.7-15.5PMercy Health Perrysburg HospitalComment on above:Performed By: #### NATHAN, 5124-3, 03191-6, 19349- 5, 29200-9 #### [facility] ([id number]) [address] [address] [place], [place] [address]Azqbfnfqloh (Bld) [#/Vol]1.3 10*3/uLNormal1.0-3.5PMercy Health Perrysburg HospitalComment on above:Performed By: #### NATHAN, 5124-3, 02951-3, 67800- 5, 22027-0 #### [facility] ([id number]) [address] [address] [place], [place] [address]Lqsqmiibjoz/100 WBC (Bld)9.4 %NormalProSelect Medical [facility] Comment on above:Performed By: #### NATHAN, 5124-3, 53144-2, 23368-2, 96739-7 #### [facility] ([id number]) [address] [address] [place], [place] [address]ZYV (RBC) [Entitic mass]30.4 fvRvjomi21-31RutGeqfqx Jackson HospitalComment on above:Performed By: #### NATHAN, 5124-3, 59176-5, 55754-8, 89588-7 #### [facility] ([id number]) [address], [address] [place], [place] [address]DVCH (RBC) [Mass/Vol]33.7 g/fCFoxocq96-14GyeCxvvtb [facility] HospitalComment on above:Performed By: #### NATHAN, 5124-3, 98531-0, 16744-7, 06672-4 #### [facility] ([id number]) [address], [address] [place], [place] [address]GAB (RBC) [Entitic vol]90 gRAozqgi27-085GpyKtndfb [facility] HospitalComment on above:Performed By: #### NATHAN, 5124-3, 88638-5, 64729-1, 22242-8 #### [facility] ([id number]) [address], [address] [place], [place] [address]Slgsbiqta (Bld) [#/Vol]0.8 10*3/uLNormal0-0.9ProPremier Health [facility] Southca [facility] HospitalComment on above:Performed By: #### NATHAN, 5124-3, 14868-1, 86044-3, 37146-3 #### [facility] ([id number]) [address], [address] [place], [place] [address]Zdlixpixz/100 WBC (Bld)5.6 %NormalAultman Hospital Comment on above:Performed By: #### NATHAN, 5124-3, 84748-6, 27844-1, 16690-2 #### [facility] ([id number]) [address], [address] [place], [place] [address]Gddiutiwndu/100 WBC (Bld)84.9 %NormalProZanesville City Hospital Comment on above:Performed By: #### NATHAN, 5124-3, 25401-8, 50269-5, 76594-6 #### [facility] ([id number]) [address], [address] [place], [place] [address]Xdpfbnud mean volume (Bld) [Entitic vol]8.5 fLNormal7-12 [facility] HospitalComment on above:Performed By: #### NATHAN, 5124-3, 09248- 0, 60860-7, 75452-0 #### [facility] ([id number]) [address], [address] [place], [place] [address]Veanatrgn (Bld) [#/Vol]311 10*3/hAEufpam341-460ZhrXovpth [facility] HospitalComment on above:Performed By: #### NATHAN, 5124-3, 47750-8, 47519-7, 14594-2 #### [facility] ([id number]) [address], [address] [place], [place] [address]UZU COUNT4.00 X10E12/LNormal3.80-5.20[facility] Comment on above:Performed By: #### NATHAN, 5124-3, 11868-4, 69188-1, 98306-2 #### [facility] ([id number]) [address], [address] [place], [place] [address]GUK (Bld) [#/Vol]13.6 10*3/uLHigh4.0-11.0[facility] HospitalComment on above:Performed By: #### NATHAN, 5124-3, 12817-8, 64489-4, 54696-5 #### [facility] ([id number]) [address], [address] [place], [place] [address]RJWAHOXJHKEAG METABOLIC PANELon 35-08-0212Ucxxrfx [Mass/Vol]3.4 g/dLNormal3.2-5.3[facility] HospitalComment on above:Performed By: #### NATHAN, 5124-3, 86060-5, 95600-0, 65702-0 #### [facility] ([id number]) [address], [address] [place], [place] [address]SHZ [Catalytic activity/Vol]64 U/YHmhdrd74-957OteCpirdb [facility] HospitalComment on above:Performed By: #### NATHAN, 5124-3, 56767-5, 53381-9, 74311-1 #### [facility] ([id number]) [address], [address] [place], [place] [address]FFH [Catalytic activity/Vol]15 U/LNormal0-31[facility] HospitalComment on above:Performed By: #### NATHAN, 5124-3, 30414-2, 77595-3, 31434-9 #### [facility] ([id number]) [address], [address] [place], [place] [address]Bdeue gap [Moles/Vol]11 mmol/LNormal5-15[facility] HospitalComment on above:Performed By: #### NATHAN, 5124-3, 78630-8, 03792-4, 77565-9 #### [facility] ([id number]) [address], [address] [place], [place] [address]WHR [Catalytic activity/Vol]23 U/LNormal0-41[facility] [place] HospitalComment on above:Performed By: #### NATHAN, 5124-3, 52449-7, 48676-8, 11250-7 #### [facility] ([id number]) [address], [address] [place], [place] [address]Fimllftbn [Mass/Vol]0.3 mg/dLNormal0.3-1.2[facility] [place] HospitalComment on above:Performed By: #### NATHAN, 5124-3, 71131-5, 79382-7, 20897-4 #### [facility] ([id number]) [address], [address] [place], [place] [address]Yttfdfg [Mass/Vol]8.2 mg/dLLow8.5-10.5PMercy [facility] Comment on above:Performed By: #### NATHAN, 5124-3, 89390-7, 46555-5, 05742-9 #### [facility] ([id number]) [address] [address] [place], [place] [address]Fdczunds [Moles/Vol]103 mmol/EZnxbng81-037MppWrfenn [place] HospitalComment on above:Performed By: #### NATHAN, 5124-3, 75722-5, 16906-6, 16618-4 #### [facility] ([id number]) [address] [address]FS8 [Moles/Vol]20 mmol/SLyt55-98FwvPhzqecMercy Health Perrysburg HospitalComment on above:Performed By: #### NATHAN, 5124-3, 82880-2, 60744-9, 68946-4 #### [facility] ([id number]) [address] [address]Kthrwcyyuc [Mass/Vol]0.70 mg/dLNormal0.40-1.00ProZanesville City HospitalComment on above:Result Comment: METHOD TRACEABLE TO IDMS STANDARD Performed By: #### NATHAN, 5124-3, 57268-8, 66392-3, 11147-5 #### [facility] ([id number]) [address] [address] [place], [place] [address]tUKI (CKD-EPI) NON-RACE DEPENDENT>90Normal>59ProSelect [facility], [facility] HospitalComment on above:Result Comment: Reported eGFR is based on the CKD-EPI 2020 equation that does not use a race coefficient.Performed By: #### NATHAN, 5124-3, 43507-5, 20496-2, 76337-6 #### [facility] ([id number]) [address] [address] [place], [place] [address]Iuautxw [Mass/Vol]101 mg/qBWpxj75-90AzaUwemlxAultman Hospital Comment on above:Performed By: #### NATHAN, 5124-3, 60634-0, 50986-1, 54630-2 #### [facility] ([id number]) [address], [address] [place], [place] [address]Sbwttuvku [Moles/Vol]4.0 mmol/LNormal3.5-5.0ProSelect [facility], [facility] HospitalComment on above:Performed By: #### NATHAN, 5124-3, 50171-2, 27186-4, 60785-8 #### [facility] ([id number]) [address], [address] [place], [place] [address]Bmcvthz [Mass/Vol]6.4 g/dLNormal6.0-8.0[facility] Comment on above:Performed By: #### NATHAN, 5124-3, 65199-6, 56078-4, 16880-8 #### [facility] ([id number]) [address], [address] [place] [address]Xvkpji [Moles/Vol]134 mmol/ODqwgoa293-535QojQjvpwz [place] HospitalComment on above:Performed By: #### NATHAN, 5124-3, 94486-8, 10638-5, 92743-7 #### [facility] ([id number]) [address], [address] [place], [place] [address]Ntto nitrogen [Mass/Vol]10 mg/dLNormal5-23Pro[facility], [facility] HospitalComment on above:Performed By: #### NATHAN, 5124-3, 55663-7, 28388-1, 82176-7 #### [facility] ([id number]) [address], [address] [place], [place] [address]Moanfkt Glucometer (BldC) [Mass/Vol]on 69-31-2910Gkydvjv [Mass/Vol]117 mg/kDZkyf55-09DryPhrcqy [place] HospitalGlucose [Mass/Vol]139 mg/dL Vpde52-42QouLxbnim [place] HospitalGlucose [Mass/Vol]122 mg/eXZdxc03-31NliUwzrjs [place] HospitalGlucose [Mass/Vol]105 mg/cRLxuq89-18VihLcadzwAultman Hospital Glucose [Mass/Vol]107 mg/pSSghx41-89DpkTauugj [place] HospitalGlucose [Mass/Vol] 114 mg/dCAwcm18-87AqlJfgfvs [place] HospitalURINE VOLUME AND TIMEon 09-28-2023 TIME24 hNormalProSelect Medical [facility], [place] HospitalComment on above:Performed By: #### NATAHN, 5124-3, 54594-6, 31012-6, 62975-0 #### [facility] ([id number]) [address], [address] [place], [place] [address]THDFO CEEKZW4154 mLNormalSouthwest General Health Center HospitalComment on above:Performed By: #### NATHAN, 5124-3, 00338-2, 75792-3, 00013-6 #### [facility] ([id number]) [address], [address] [place], [place] [address]LCXXULHZ BLOOD COUNTon 07-66-3540Pnisogeuenk distribution width (RBC) [Ratio]13.1 %Dshhjz92.5-15.0ProSelect [facility], Beachwood HospitalComment on above: Performed By: #### NATHAN, 5124-3, 92108-0, 78466-5, 40375-1 #### [facility] ([id number]) [address], [address] [place], [place] [address]Ytfipxcaru (Bld) [Volume fraction]38.6 %Ornafi41-37SfhOkzbml [place] HospitalComment on above:Performed By: #### NATHAN, 5124-3, 60118-6, 20534- 5, 01239-7 #### [facility] ([id number]) [address], [address] [place], [place] [address]Hspgqbpzox (Bld) [Mass/Vol]13.2 g/uQMnprjp93.7-15.5Pro[facility]ica [facility] HospitalComment on above:Performed By: #### NATHAN, 5124-3, 28339-4, 42889- 5, 75904-6 #### [facility] ([id number]) [address], [address] [place], [place] [address]TEN (RBC) [Entitic mass]30.7 voAxzjlv41-69CnmDexmco Marcano HospitalComment on above:Performed By: #### NATHAN, 5124-3, 07967-3, 62653-5, 67763-5 #### [facility] ([id number]) [address], [address] [place], [place] [address]LTLX (RBC) [Mass/Vol]34.1 g/lBLtprvc69-85DttUfkgrz [facility] HospitalComment on above:Performed By: #### NATHAN, 5124-3, 65979-0, 92315-5, 00612-7 #### [facility] ([id number]) [address], [address] [place], [place] [address]EAS (RBC) [Entitic vol]90 dSNxycxa45-157PeiTgqqoc [facility] HospitalComment on above:Performed By: #### NATHAN, 5124-3, 49576-5, 05379-2, 27875-1 #### [facility] ([id number]) [address], [address] [place], [place] [address]Zqlrkffy mean volume (Bld) [Entitic vol]8.5 fLNormal7-12 [facility] HospitalComment on above:Performed By: #### NATHAN, 5124-3, 82459- 0, 39809-1, 74939-7 #### [facility] ([id number]) [address], [address] [place], [place] [address]Xrivuqrvs (Bld) [#/Vol]347 10*3/nDTdwvbf713-083ShaNitstf [facility] HospitalComment on above:Performed By: #### NATHAN, 5124-3, 95399-6, 73671-3, 63007-4 #### [facility] ([id number]) [address], [address] [place], [place] [address]WLM COUNT4.29 X10E12/LNormal3.80-5.20[facility] Comment on above:Performed By: #### NATHAN, 5124-3, 13791-7, 98237-8, 94128-2 #### [facility] ([id number]) [address], [address] [place], [place] [address]WOR (Bld) [#/Vol]20.6 10*3/uLHigh4.0-11.0Pro[facility], Beach[facility] HospitalComment on above:Performed By: #### NATHAN, 5124-3, 02843-5, 23283-1, 15203-7 #### [facility] ([id number]) [address], [address] [place], [place] [address]MTMDAZKDIIYHE METABOLIC PANELon 23-72-9055Kjjtpns [Mass/Vol]3.6 g/dLNormal3.2-5.3ProMedFulton County Health Center HospitalComment on above:Performed By: #### CMP, 2532-0, 3084-1, CBC, THYR, 73124-4 #### [facility] ([id number]) [address], [address] [place], [place] [address]JAH [Catalytic activity/Vol]80 U/VKfjcgv40-698MxeLnqdbd [place] HospitalComment on above:Performed By: #### CMP, 2532-0, 3084-1, CBC, THYR, 89981-6 #### [facility] ([id number]) [address], [address] [place], [place] [address]JSF [Catalytic activity/Vol]15 U/LNormal0-31ProMedFulton County Health Center HospitalComment on above:Performed By: #### CMP, 2532-0, 3084-1, CBC, THYR, 95789-4 #### [facility] ([id number]) [address], [address] [place], [place] [address]Xogix gap [Moles/Vol]13 mmol/LNormal5-15[facility] HospitalComment on above:Performed By: #### CMP, 2532-0, 4-1, CBC, THYR, 30226-9 #### [facility] ([id number]) [address], [address] [place], [place] [address]SPF [Catalytic activity/Vol]25 U/LNormal0-41Pro[facility] HospitalComment on above:Performed By: #### CMP, 2-0, 3083-1, CBC, THYR, 71223-0 #### [facility] ([id number]) [address], [address] [place], [place] [address]Fymspigsv [Mass/Vol]0.3 mg/dLNormal0.3-1.2Pro[facility] HospitalComment on above:Performed By: #### CMP, 2-0, 3083-1, CBC, THYR, 24986-7 #### [facility] ([id number]) [address], [address] [place], [place] [address]Gxhwczj [Mass/Vol]8.9 mg/dLNormal8.5-10.5ProMedfayette medical center Marcano HospitalComment on above:Performed By: #### CMP, 2532-0, 3083-1, CBC, THYR, 30670-4 #### [facility] ([id number]) [address], [address] [place], [place] [address]Anmvmoow [Moles/Vol]104 mmol/XMxfgvd02-902FsqZihfkq [facility] HospitalComment on above:Performed By: #### CMP, 2532-0, 4-1, CBC, THYR, 26767-7 #### [facility] ([id number]) [address], [address] [place], [place] [address]EC4 [Moles/Vol]17 mmol/HAhf68-67QsaCokeub [place] HospitalComment on above:Performed By: #### PARI, 2532-0, 3083-1, CBC, THYR, 26139-5 #### [facility] ([id number]) [address] [address] [place], [place] [address]Xgfhtbemml [Mass/Vol]0.70 mg/dLNormal0.40-1.00ProZanesville City HospitalComment on above:Result Comment: METHOD TRACEABLE TO IDMS STANDARD Performed By: #### PARI, 2532-0, 3083-1, CBC, THYR, 69424-0 #### [facility] ([id number]) [address] [address] [place], [place] [address]gXCA (CKD-EPI) NON-RACE DEPENDENT>90Normal>59Pro[facility], [facility] HospitalComment on above:Result Comment: Reported eGFR is based on the CKD-EPI 2020 equation that does not use a race coefficient.Performed By: #### PARI, 2532-0, 3083-1, CBC, THYR, 19638-0 #### [facility] ([id number]) [address] [address] [place], [place] [address]Qixjhig [Mass/Vol]93 mg/zYDobpjp11-20VnqKrpckp [facility] [facility] Comment on above:Performed By: #### PARI, 2532-0, 3083-1, CBC, THYR, 97644-4 #### [facility] ([id number]) [address] [address] [place], [place] [address]Nsfiwjtln [Moles/Vol]3.9 mmol/LNormal3.5-5.0ProZanesville City HospitalComment on above:Performed By: #### PARI, 2532-0, 3083-1, CBC, THYR, 74248-1 #### [facility] ([id number]) [address] [address] [place], [place] [address]Pduvsoo [Mass/Vol]6.8 g/dLNormal6.0-8.0[facility] Comment on above:Performed By: #### CMP, 2532-0, 3084-1, CBC, THYR, 04301-2 #### [facility] ([id number]) [address], [address] [place], [place] [address]Pviuif [Moles/Vol]134 mmol/ZMokucb977-384TlfFsmcme [place] HospitalComment on above:Performed By: #### PARI, 2532-0, 3084-1, CBC, THYR, 99934-6 #### [facility] ([id number]) [address], [address] [place], [place] [address]Ifzx nitrogen [Mass/Vol]11 mg/dLNormal5-23Pro[facility], [facility] HospitalComment on above:Performed By: #### PARI, 2532-0, 4-1, CBC, THYR, 55237-3 #### [facility] ([id number]) [address], [address] [place], [place] [address]LJDP SCREEN, URINEon 94-94-2956TWKVRVUYEAY/METHAMPNegativeNormal NEGProSelect Medical [facility] Hospital, Beach[facility] HospitalComment on above:Result Comment: AMPH/METH screening cut off = 1000 ng/mLPerformed By: #### PAZ SANTOYO #### [facility] ([id number]) [address], [address] [place], [place] [address]NAUHJZKNCUDCEktgsbueQrvhsyXCMXfpRetiiw [facility] HospitalComment on above:Result Comment: Barbiturates screening cut off value = 200 ng/mLPerformed By: #### PAZ SANTOYO #### [facility] ([id number]) [address], [address] [place], [place] [address]PBEYEXLAMSXRRIBAvvwmljlKghmfcXFUPfkVxxcnz [facility] HospitalComment on above:Result Comment: Benzodiazepines screening cut off value = 200 ng/mL Performed By: #### GERARDO SANTOYOU #### [facility] ([id number]) [address], [address] [place], [place] [address]UFKDXWUTZIWDSautuhbbMpssotITOZraNhpfbt [facility] HospitalComment on above:Result Comment: Cannabinoids/THC screening cut off value = 50 ng/mL Performed By: #### YARELIS, GERARDOU #### [facility] ([id number]) [address], [address] [place], [place] [address]PVSBOHD METABOLITENegativeNormalNEGProSelect [facility] Comment on above:Result Comment: Cocaine screening cut off value = 300 ng/mL Performed By: #### GERARDO SANTOYOU #### [facility] ([id number]) [address], [address] [place], [place] [address]IIDZKZKWxzxzwexFrzsqginCIATvpMemixo Jackson HospitalComment on above:Result Comment: Interference from Buproprion or Labetalol may cause a positive result, confirmation available upon request. Ecstasy screening cut off value = 500 ng/mL This report is intended for use in clinical monitoring or management of patients.Performed By: #### GERARDO SANTOYOU #### [facility] ([id number]) [address], [address] [place], [place] [address]ZDJVXZSLIXqoutrulKykdqvKXCLivNfuvww Jackson HospitalComment on above:Result Comment: Methadone screening cut off value = 300 ng/mL.Performed By: #### YARELIS, GERARDOU #### [facility] ([id number]) [address], [address] [place], [place] [address]HGBNWIEZeepgfgtMhvyrvKIYWaiDuxyjj Jackson HospitalComment on above:Result Comment: Opiates screening cut off value = 300 ng/mL NOTE: This test is used for the detection of codeine, hydrocodone (>1000 ng/mL), morphine and hydromorphone (>900 ng/mL) in urine.Performed By: #### GERARDO SANTOYOU #### [facility] ([id number]) [address], [address] [place], [place] [address]CETENAKWRUgwntsrjFsvvysCKXUnqQykmws [place] HospitalComment on above:Result Comment: Oxycodone screening cut off value = 300 ng/mL NOTE: This test is used for the detection of oxycodone and oxymorphone in urine.Performed By: #### GERARDO SANTOYOU #### [facility] ([id number]) [address], [address] [place], [place] [address]TSFURLNOGPUPYQpxkjlxwYpsoirBACXlwZaqltw [place] HospitalComment on above:Result Comment: Phencyclidine screening cut off value = 25 ng/mL Performed By: #### PAZ SANTOYO #### [facility] ([id number]) [address] [address] [place], [place] [address]Yuqscqh Glucometer (BldC) [Mass/Vol]on 42-87-5092Fekyonp [Mass/Vol]115 mg/tVQjym94-54OpjVpdjkuAultman HospitalLDH [Catalytic activity/Vol]on 43-18-6053JQG072 U/OWratxa055-735CghVtxwjgAultman Hospital Comment on above:Performed By: #### NATHAN, 5124-3, 32359-2, 83804-2, 34486-4 #### [facility] ([id number]) [address] [address] [place], [place] [address]YFUWRGI CREAT RATIOon 16-16-9563APIPHA URINE ZYNAJJH798 mg/LHigh <120ProZanesville City HospitalComment on above:Performed By: #### GERARDO SANTOYOU #### [facility] ([id number]) [address], [facility] [address] [place], [place] [address]S/PRO/BUSINESS CONTINUITY ANALYST RATIO CALC0.23High<0.2PMercy Health Perrysburg HospitalComment on above:Result Comment: Nephrotic Syndrome is associated with ratios >3.5 Performed By: #### GERARDO SANTOYOU #### [facility] ([id number]) [address] [facility], [address] [place], [place] [address]EXLVO CREATININE,DET284.63 mg/dLNormalProMedica [facility] Comment on above:Performed By: #### YARELIS, PAZ #### [facility] ([id number]) [address] [facility], [address] [place], [place] [address]VFND PATHOGENS/TACL-XaS-2ri 95-27-1003Ttjqpzxlbwn pathogens DNA and RNA panel KALE+non-probe (Nph)SPECIMEN SOURCE NASO PHARYNX ADENOVIRUS Not detected (qualifier [...] evaluating a patient with possible respiratory tract infection.NormalProZanesville City HospitalComment on above:Performed By: #### NATHAN, 5124-3, 40554-3, 90844-6, 75530-0 #### [facility] ([id number]) [address] [place], [place] [address]ZIEFV B SCREEN CULTUREon 09-27-2023S. agalactiae Org specific cx Ql (Vag+Rectum)CULTURE RESULTS POSITIVE FOR GROUP B STREPTOCOCCUS BY NUCLEIC ACID AMPLIFICATION : Group B streptococci remain universally susceptible to penicillin, ampicillin, and cefazolin. Resistance to clindamycin can occur. Please contact laboratory within 48 hr if clindamycin susceptibility testing is needed.NormalAultman HospitalComment on above:Performed By: #### NATHAN, 5124-3, 20824-7, 52370- 5, 43598-7 #### [facility] ([id number]) [address] [place], [place] [address]I. pallidum IgG+IgM IA Ql (S)on 98-47-3896Hkaykfcn Total<0.2 Normal0.0-0.8ProMercy Health Springfield Regional Medical Centerment on above:Result Comment: NON REACTIVE No serologic evidence of infection to Treponema pallidum (syphilis). Repeat testing may be considered in patients with suspected acute or primary syphilis in 2 to 4 weeks.Performed By: #### NATHAN, 5124-3, 18807-9, 90115-6, 84091-3 #### [facility] ([id number]) [address] [facility], [address] [place], [place] [address]NFIQNSP PROFILEon 66-33-8841Pest T4 [Mass/Vol]0.59 ng/dLLow 0.61-1.60[facility] HospitalComment on above:Performed By: #### NATHAN, 5124- 3, 03665-1, 26685-5, 56777-3 #### [facility] ([id number]) [address] [place] [address], [address] [place], [place] [address]EJO1.86 uIU/mLNormal0.49-4.67[facility] HospitalComment on above:Performed By: #### NATHAN, 5124-3, 65895-0, 17199-1, 17421-4 #### [facility] ([id number]) [address] [facility], [address] [place], [place] [address]XEZF ACIDon 06-55-8314Pednr [Mass/Vol]7.0 mg/dLNormal2.6-7.2 [facility] HospitalComment on above:Performed By: #### NATHAN, 5124-3, 26142- 0, 28868-0, 39282-3 #### [facility] ([id number]) [address] [place] [address], [address] [place], [place] [address]WVNKWWOKRJmy 54-47-3690Sewurschf Ql (U)NegativeNormalNEG [facility] HospitalComment on above:Performed By: #### GERARDO SANTOYOU #### [facility] ([id number]) [address] [place] [address], [address] [place], [place] [address]WKNJY/HGBMODERATEAbnormalNEGProMedica Jackson HospitalComment on above:Performed By: #### YARELIS, DSU #### [facility] ([id number]) [address], [address] [place], [place] [address]Sqkbs (U)YELLOWNormalYELLOWProMedica Jackson HospitalComment on above:Performed By: #### GERARDO SANTOYOU #### [facility] ([id number]) [address], [address] [place], [place] [address]Rfvxnoc Ql (U)NegativeNormalNEGProMedica Jackson HospitalComment on above:Performed By: #### GERARDO SANTOYOU #### [facility] ([id number]) [address], [address] [place], [place] [address]Iqngexs casts LM Ql (Urine sed)3 /lpfHigh0-2Pro[facility]ica Jackson HospitalComment on above:Performed By: #### PAZ SANTOYO #### [facility] ([id number]) [address], [address] [place], [place] [address]Iiazlcq Ql (U)20 mg/dLAbnormalNEGProMedica Jackson Hospital Comment on above:Performed By: #### PAZ SANTOYO #### [facility] ([id number]) [address], [address] [place], [place] [address]Htcsrokww esterase Test strip Ql (U)NegativeNormalNEGProMedica Jackson HospitalComment on above:Performed By: #### GERARDO SANTOYOU #### [facility] ([id number]) [address], [address] [place], [place] [address]OHVZZOGFCTQBXAyrlywudNZUXYtuAopbai Jackson HospitalComment on above:Performed By: #### GERARDO SANTOYOU #### [facility] ([id number]) [address], [address] [place], [place] [address]Fqjognz Ql (U)NegativeNormalNEGProMedica Jackson HospitalComment on above:Performed By: #### GERARDO SANTOYOU #### [facility] ([id number]) [address], [address] [place], [place] [address]xP (U)5.5 [pH]Normal5.0-8.5PHolmes County Joel Pomerene Memorial Hospital HospitalComment on above:Performed By: #### PAZ SANTOYO #### [facility] ([id number]) [address], [address] [place], [place] [address]Khcfckn Ql (U)30 mg/dLAbnormalNEGProZanesville City Hospital Comment on above:Performed By: #### PAZ SANTOYO #### [facility] ([id number]) [address], [address] [place], [place] [address]E.B.CELLS53 /hpfHigh0-5PHolmes County [facility]omerene [facility] Hospital HospitalComment on above:Performed By: #### PAZ SANTOYO #### [facility] ([id number]) [address], [address] [place], [place] [address]Ldaxqjvc gravity (U) [Rel density]1.524Npeoev6.003-1.035 [facility] HospitalComment on above:Performed By: #### PAZ SANTOYO #### [facility] ([id number]) [address], [address] [place], [place] [address]DGEAQOQA EPITHELIUM1 /hpfNormal0-5PMercy Health [facility] Hospital Comment on above:Performed By: #### PAZ SANTOYO #### [facility] ([id number]) [address], [address] [place], [place] [address]HWIGWPJWNBRZMDZnsbyhFWCCNCipUzuoph [place] HospitalComment on above:Performed By: #### PAZ SANTOYO #### [facility] ([id number]) [address], [address] [place], [place] [address]Maxudekrmbqc (U) [Mass/Vol]mg/dLNormal<1.1PHolmes County [facility]ome[facility] Hospital HospitalComment on above:Performed By: #### PAZ SANTOYO #### [facility] ([id number]) [address], [address] [place], [place] [address]Z.B.CELLS3 /hpfNormal0-5Pro[facility]itan HospitalComment on above:Performed By: #### UPCR, DSU #### [facility] ([id number]) [address], [address] [place], [place] [address]ICEYR CULTUREon 74-03-3792Gzjwmlql identified Cx Nom (U)SPECIMEN NOTES URINE RECEIVED WITHOUT PRESERVATIVE CULTURE RESULTS NO GROWTH AT <1000 CFU/mLNormalProZanesville City HospitalComment on above: Performed By: #### NATHAN, 5124-3, 93643-3, 74734-9, 55216-1 #### [facility] ([id number]) [address], [address] [place], [place] [address]Yj Panel Informationon 48-47-8382Fflicjbf lab testsee scanned reportFairfield Medical Center SystemProGerman Hospital SystemUrinalysis macro (dipstick) panel (U)on 17-06-2286Ukoqeivri, UANegativeNegative - 4(70) +++ mg/dLNOMS HealthcareBlood, UANegativeNegative - 50 Izaiah/mcLNOMS HealthcareClarity, UAClear NOMS HealthcareColor, UAYellowNOMS HealthcareGlucose, UANegativeNegative - 2000(110) ++++ mg/dLNOMS HealthcareInterpretation and review of laboratory resultsAbnormalNOMS HealthcareKetones, UANegativeNegative - 160(16) ++++ mg/dL NOMS HealthcareLeukocytes, UATraceNegative - 500+++ Susy/mcLNOMS Healthcare Nitrite, UANegativeNegative - PositiveNOMS HealthcarepH, UA7.05 - 9NOMS HealthcareProtein, UATraceNegative - 2000(20) ++++ mg/dLNOMS HealthcareSpec Grav, UA1.0251 - 1.03NOMS HealthcareUrobilinogen, UA0.20.2 - 12 mg/dLNOMS HealthcareNOMS HealthcareCoxsackie B Abon 06-57-9797Kcqdrhqli tp. B1<1:10Normal <1:10[facility] HospitalComment on above:Performed By: #### URTPRT #### [address] [address] Field Operations Supervisor: Niya Barton. B2<1:10Normal<1:10[facility] HospitalComment on above:Performed By: #### URTPRT #### [address] [address] Field Operations Supervisor: Niya Barton. B3<1:10Normal<1:10[facility] HospitalComment on above:Performed By: #### URTPRT #### [address] [address] Field Operations Supervisor: Niya Barton tp. B41:40Normal<1:10[facility] HospitalComment on above:Performed By: #### URTPRT #### [address] [address] Field Operations Supervisor: Niya Barton. B51:20Normal<1:10[facility] HospitalComment on above:Performed By: #### URTPRT #### [address] [address] Field Operations Supervisor: Niya Barton B6<1:10Normal<1:10[facility] HospitalComment on above:Result Comment: (NOTE) INTERPRETIVE INFORMATION: Coxsackie B Virus Single positive antibody titers of greater than or equal to 1:80 may indicate past or current infection. Sero- conversion or an increase in titers between acute and convalescent sera of at least fourfold is considered strong evidence of current or recent infection. Performed By: [facility] [address] [place] [address] [employer] C[employer] Machine: Nikita Pantoja MD, PhD CLIA Number: [id number] By: #### URTPRT #### [address] [id number] Field Operations Supervisor: Gonzalo Cain MDProtein S Ag, Freeon 71-86-1569Nsbrpop S Ag, Free61 %Qlrads68-821PwsviGalion Community HospitalComment on above:Result Comment: (NOTE) INTERPRETIVE INFORMATION: Protein S Ag, FREE Patients [...] reference intervals for this test in the [facility] Test Directory ([place]). Performed By: [facility] [address] [place], [place] [address] [employer] Machine: Nikita Pantoja MD, PhD CLIA Number: [id number] By: #### URTPRT #### [address] [id number] Field Operations Supervisor: ANNE Bartonrotein S, Antigenicon 96-01-2256Etexhpt S, Optjpevsp161 %Asot86-548WhqenGalion Community HospitalComment on above:Result Comment: (NOTE) INTERPRETIVE INFORMATION: Protein S, Total Antigen Patients on warfarin may have decreased protein S values. Patients should be off warfarin therapy for two weeks for accurate measurement of protein S. Access complete set of age- and/or gender-specific reference intervals for this test in the [facility] Directory ([place]). Performed By: [facility] [address] [place] [id number] [employer] Machine: Nikita Pantoja MD, PhD CLIA Number: [id number] By: #### URTPRT #### [address] [id number] Field Operations Supervisor: Gonzalo Cain MDAntithrombin III [place] [id number] III Byp474 %Fmpovt45-909KosizGalion Community HospitalComment on above:Result Comment: Patients receiving Hirudin may have a falsely decreased Antitrombin III Activity.Performed By: #### URTPRT #### [facility] [address] [place] [address] Field Operations Supervisor: Michelle Bartonus Anticoagulanton [id number] Mahduri ViperNegativeNormalNLUPGalion Community HospitalComment on above: Performed By: #### LUPPRO #### [facility] [address] [place] [address] Field Operations Supervisor: ANNE Bartonrotein C Activityon [id number] C Qvzdvykj54 %Normal>80Galion Community HospitalComment on above:Result Comment: Patients on warfarin will have decreased functional protein C/S values. Warfarin therapy should be discontinued for two weeks for accurate measurement of functional protein C/S levels. Artifactually elevated levels of functional protein C/S may be seen in patients receiving heparin,rivaroxaban,apixaban,edozaban,and dabiqatran. Decreased functionality may be seen in patients with abnormally elevated levels of Factor VIII.Performed By: #### URTPRT #### [facility] [address] [place] [address] Field Operations Supervisor: ANNE Bartonrotein S Activityon [id number] S Mfgaltet19 %Hrm34-175AzwblGalion Community HospitalComment on above:Result Comment: Patients on warfarin will have decreased functional protein C/S values. Warfarin therapy should be discontinued for two weeks for accurate measurement of functional protein C/S levels. Artifactually elevated levels of functional protein C/S may be seen in patients receiving heparin,rivaroxaban,apixaban,edozaban,and dabiqatran. Decreased functionality may be seen in patients with abnormally elevated levels of Factor VIII.Performed By: #### URTPRT #### [facility] [address] [place] [address] Field Operations Supervisor: Gonzalo Cain MDFactor V Mutationon 08-11-2023F 5 SPECIMENWhole BloodNoSt. Anthony's HospitalComment on above:Performed By: #### APARVP, AF5MUT, APRTSF, ACOXAB, ACOXA9, APTMUT, AMTHFR, APROTS #### [facility] [address] [place] [address] Field Operations Supervisor: Arben Carrington MD #### AT3A, PROSAC, HOCYS, ACARDA, FT4, PROCAC, TSH #### [facility] [address] [place] [address] Field Operations Supervisor: Gonzalo Cain MDFACTOR 5 MUTATIONNegativeCleveland Clinic Marymount HospitalComment on above:Result Comment: (NOTE) Indication for testing: Assess genetic risk for thrombosis. NEGATIVE: The factor V Leiden variant, c.1601G>A; p.Lox797Dbs, was not detected. This does not exclude [...] function in the F5 gene variant c.1601G>A (p.Vzh090Npe). Legacy nomenclature: R506Q (1691G>A) CLINICAL SENSITIVITY: 20-50 percent of individuals with an isolated VTE have the FVL variant. METHODOLOGY: Polymerase chain reaction and fluorescence monitoring. ANALYTICAL SENSITIVITY AND SPECIFICITY: 99 percent. LIMITATIONS: Diagnostic errors can occur due to rare sequence variations. F5 gene mutations, other than p.Kmx269Pyb, will not be detected. This test was developed and its performance characteristics determined by [facility]. It has not been cleared or approved by the US Food and Drug Administration. This test was performed in a CLIA certified laboratory and is intended for clinical purposes. Counseling and informed consent are recommended for genetic testing. Consent forms are available online. Performed By: [facility] [address] [place] [address] [employer] Machine: Nikita Pantoja MD, PhD [facility] Number: [id number] By: #### APARVP, AF5MUT, APRTSF, ACOXAB, ACOXA9, APTMUT, AMTHFR, APROTS #### [address] [address] Field Operations Supervisor: Arben Carrington MD #### AT3A, PROSAC, HOCYS, ACARDA, FT4, PROCAC, TSH #### [place] [address] Field Operations Supervisor: AMELIE Barton Mutation 58557qw 20-04-6735TP B64111U VARIANT NegativeNormVeterans Health AdministrationComment on above:Result Comment: (NOTE) Indication for testing: Assess genetic risk for thrombosis. NEGATIVE: The Factor II, prothrombin B90510K mutation, was not detected. Other causes of [...] M.D., Ph.D. BACKGROUND INFORMATION: Prothrombin (F2) c.*97G>A (Q99784T) Pathogenic Variant CHARACTERISTICS: The Factor II, c.*97G>A (K02483J) pathogenic variant is a common genetic risk [...] CAUSE: Homozygosity or heterozygosity for F2 c.*97G>A (K12047E). PATHOGENIC VARIANT TESTED: F2 c.*97G>A (L40630H). CLINICAL SENSITIVITY FOR VENOUS THROMBOSIS: Approximately 10 percent. METHODOLOGY: Polymerase chain reaction and fluorescence monitoring. ANALYTICAL SENSITIVITY AND SPECIFICITY: 99 percent. LIMITATIONS: Diagnostic errors can occur due to rare sequence variations. F2 gene variants, other than c.*97G>A (K85240T), will not be detected. This test was developed and its performance characteristics determined by [facility]. It has not been cleared or approved by the US Food and Drug Administration. This test was performed in a CLIA certified laboratory and is intended for clinical purposes. Counseling and informed consent are recommended for genetic testing. Consent forms are available online. Performed By: [facility] [address] [place] [address] [employer] Machine: Nikita Pantoja MD, PhD [place] Number: [id number] By: #### URTPRT #### [place] [address] [place] [id number] Field Operations Supervisor: AMELIE Barton PCR SPECIMENWhole BloodNormalGalion Community HospitalComment on above:Performed By: #### URTPRT #### [address] [id number] Field Operations Supervisor: AMAYA Bartonoxsackie A9 Titeron 21-12-4195Kmgmelhcr A9 Titer<1:8Normal<1:8Galion Community HospitalComment on above:Result Comment: (NOTE) INTERPRETIVE INFORMATION: Coxsackie A Serotype 9 Titer Single positive antibody titers of greater than 1:32 may indicate past or current infection. Seroconversion or an increase in titers between acute and convalescent sera of at least fourfold is considered strong evidence of current or recent infection. Performed By: [facility] [address] [place] [address] [employer]: Nikita Pantoja MD, PhD CLIA Number: [id number] By: #### APARVP, AF5MUT, APRTSF, ACOXAB, ACOXA9, APTMUT, AMTHFR, APROTS #### [facility] [address] [id number] Field Operations Supervisor: Arben Carrington MD #### AT3A, PROSAC, HOCYS, ACARDA, FT4, PROCAC, TSH #### [address] [id number] Field Operations Supervisor: MARYBETH Barton Gene Mutationon 92-92-7712THWTT 1286 A>C MutNegativeNormalGalion Community HospitalComment on above:Performed By: #### APARVP, AF5MUT, APRTSF, ACOXAB, ACOXA9, APTMUT, AMTHFR, APROTS #### [facility] [address] [place] [address] Field Operations Supervisor: Arben Carrington MD #### AT3A, PROSAC, HOCYS, ACARDA, FT4, PROCAC, TSH #### [address] [id number] Field Operations Supervisor: MARYBETH Barton 655C>T MutHomozygousCleveland Clinic Marymount HospitalComment on above:Performed By: #### APARVP, AF5MUT, APRTSF, ACOXAB, ACOXA9, APTMUT, AMTHFR, APROTS #### [facility] [address] [place] [address] Field Operations Supervisor: Arben Carrington MD #### AT3A, PROSAC, HOCYS, ACARDA, FT4, PROCAC, TSH #### [facility] [address] [place] [address] Field Operations Supervisor: MARYBETH Barton InterpretationSee NoteCleveland Clinic Marymount HospitalComment on above:Result Comment: (NOTE) Indication for testing: Determine genetic contribution to hyperhomocysteinemia. Homozygous MTHFR c.665C>T: Two copies of the MTHFR gene variant c.665C>T (previously designated C677T) were detected; the c.1286A>C (previously designated R0521O) variant was not detected. Homozygosity for the [...] has an effect on cardiovascular disease. The [employer] Practice Guidelines indicate [...] a contributing factor to hyperhomocysteinemia. Variants Tested: c.665C>T(p.Yqn533Evl) and c.1286A>C(p.Azt334Wka). (legacy names C677T and Z7006J, respectively). Clinical Sensitivity: Undefined; hyperhomocysteinemia is caused [...] developed and its performance characteristics determined by [facility]. It has not been cleared or approved by the US Food and Drug Administration. This test was performed in a CLIA certified laboratory and is intended for clinical purposes. Counseling and informed consent are recommended for genetic testing. Consent forms are available online. Performed By: [facility] [address] [place] [address] [employer] Machine: Nikita Pantoja MD, PhD CLIA Number: [id number] By: #### APARVP, AF5MUT, APRTSF, ACOXAB, ACOXA9, APTMUT, AMTHFR, APROTS #### [facility] [address] [place] [id number] Field Operations Supervisor: Arben Carrington MD #### AT3A, PROSAC, HOCYS, ACARDA, FT4, PROCAC, TSH #### [address] [address] Field Operations Supervisor: Gonzalo Cain [facility] BloodrmalGalion Community HospitalComment on above:Performed By: #### APARVP, AF5MUT, APRTSF, ACOXAB, ACOXA9, APTMUT, AMTHFR, APROTS #### [facility] [address] [place] [address] Field Operations Supervisor: Arben Carrington MD #### AT3A, PROSAC, HOCYS, ACARDA, FT4, PROCAC, TSH #### [facility] [place] [address] Field Operations Supervisor: Preston Bartonvirus B19 Panelon 20-13-6641Kikmzbsjhh IgG B190.18 IVNormal<=0.90Galion Community HospitalComment on above:Result Comment: (NOTE) INTERPRETIVE INFORMATION: Parvovirus B19 Antibody, IgG 0.90 [...] in the same laboratory at the same time.Performed By: #### APARVP, AF5MUT, APRTSF, ACOXAB, ACOXA9, APTMUT, AMTHFR, APROTS #### [address] [address] Field Operations Supervisor: Arben Carrington MD #### AT3A, PROSAC, HOCYS, ACARDA, FT4, PROCAC, TSH #### [facility] [place] [address] Field Operations Supervisor: David Barton IgM B190.24 IVNormal<=0.90Galion Community HospitalComment on above:Result Comment: (NOTE) INTERPRETIVE INFORMATION: Parvovirus B19 Antibody, IgM EFFECTIVE 05/21/2023 REFERENCE INTERVAL CHANGE Due to reagent kit safety and health manager recall, an alternate kit has been validated and implemented by [facility]. The following Reference Interval applies [...] levels of specific IgM antibodies. Performed By: [facility] [address] [place] [address] [employer] Machine: Nikita Pantoja MD, PhD CLIA Number: [id number] By: #### APARVP, AF5MUT, APRTSF, ACOXAB, ACOXA9, APTMUT, AMTHFR, APROTS #### [facility] [address] [place] [address] Field Operations Supervisor: Arben Carrington MD #### AT3A, PROSAC, HOCYS, ACARDA, FT4, PROCAC, TSH #### [place] [id number] Field Operations Supervisor: Gonzalo Cain MDCardiolipin Ab G,A,Mon 98-02-9041Rdnyaasozljicuf IgG0.7 GPLNormal0.0-10.0Galion Community HospitalComment on above:Result Comment: Reference Range: <10.0 Negative 10.0-40.0 Equivocal >40.0 PositivePerformed By: #### APARVP, AF5MUT, APRTSF, ACOXAB, ACOXA9, APTMUT, AMTHFR, APROTS #### [facility] [address] [place] [id number] Field Operations Supervisor: Arben Carrington MD #### AT3A, PROSAC, HOCYS, ACARDA, FT4, PROCAC, TSH #### [facility] [address] [place], [place] [id number] Field Operations Supervisor: Shelli Barton IgA1.9 APLNormal0.0-14.0Galion Community HospitalComment on above:Result Comment: Reference Range: <14.0 Negative 14.0-20.0 Equivocal >20.0 Positive When results are Equivocal, it is recommended to retest after 4-6 weeks. Performed By: #### APARVP, AF5MUT, APRTSF, ACOXAB, ACOXA9, APTMUT, AMTHFR, APROTS #### [facility] [address] [place] [address] Field Operations Supervisor: Arben Carrington MD #### AT3A, PROSAC, HOCYS, ACARDA, FT4, PROCAC, TSH #### [facility] [address] [place] [address] Field Operations Supervisor: Shelli Barton IgM1.0 MPLNormal0.0-10.0Gal[facility] Community HospitalComment on above:Result Comment: Reference Range: <10.0 Negative 10.0-40.0 Equivocal >40.0 PositivePerformed By: #### APARVP, AF5MUT, APRTSF, ACOXAB, ACOXA9, APTMUT, AMTHFR, APROTS #### [facility] [address] [place] [address] Field Operations Supervisor: Arben Carrington MD #### AT3A, PROSAC, HOCYS, ACARDA, FT4, PROCAC, TSH #### [facility] [address] [place], [place] [id number] Field Operations Supervisor: Gonzalo Cain MDHomocysteineon 03-70-0349Qmexpdedfznz3.4 umol/L Normal<15.0Gal[facility] Community HospitalComment on above:Performed By: #### APARVP, AF5MUT, APRTSF, ACOXAB, ACOXA9, APTMUT, AMTHFR, APROTS #### [facility] [address] [place] [address] Field Operations Supervisor: Arben Carrington MD #### AT3A, PROSAC, HOCYS, ACARDA, FT4, PROCAC, TSH #### [address] [address] Field Operations Supervisor: Johnny Barton Anticoagulanton 51-41-8886iIOR Coag (Bld) [Time]25.4 nNdzvii49.0-36.5Galion Community HospitalComment on above: Result Comment: IV Heparin Therapy Range: 66.0-92.0 secPerformed By: #### LUP[facility] #### [address] [address] Field Operations Supervisor: MATILDE Barton Coag (PPP) [Relative time]1.0 {INR}Normal Gal[facility] Community HospitalComment on above:Result Comment: Therapeutic Range: Moderate Anticoagulant Intensity: INR = 2.0-3.0 High Anticoagulant Intensity: INR = 2.5-3.5Performed By: #### LUP[facility] #### [address] [address] Field Operations Supervisor: AMELIE Barton Coag (PPP) [Time]13.0 sPnawde54.7-14.9Gal[facility] Community HospitalComment on above:Performed By: #### L[facility] #### [address] [address] Field Operations Supervisor: ANNE Bartonrotein,Tot,[place] Uron 04-93-1024Ytdsavasrr [Mass/Vol]221.0 mg/nMColt69.0-217.0Gal[facility] Community HospitalComment on above:Performed By: #### URTPRT #### [address] [address] Field Operations Supervisor: Gonzalo Cain MDTot Prot. Conc.15 mg/dLNoSt. Anthony's HospitalComment on above:Result Comment: No normal range established. Performed By: #### URTPRT #### [address] [address] Field Operations Supervisor: Gonzalo Cain MDTP/Cre Ratio0.07Cleveland Clinic Marymount HospitalComment on above:Performed By: #### URTPRT #### [address] [address] Field Operations Supervisor: Gonzalo Cain MDThyroid Stim. Horm.on 82-83-6217Zwmcpzc Stim. Horm.1.89 uIU/mLNormal0.30-5.00[facility] HospitalComment on above: Performed By: #### APARVP, AF5MUT, APRTSF, ACOXAB, ACOXA9, APTMUT, AMTHFR, APROTS #### [facility] [address] [place] [address] Field Operations Supervisor: Arben Carrington MD #### AT3A, PROSAC, HOCYS, ACARDA, FT4, PROCAC, TSH #### [address] [id number] Field Operations Supervisor: Gonzalo Cain MDThyroxine, Freeon 48-53-2383Tfnojnzvj, Free1.1 ng/dLNormal0.9-1.7[facility] HospitalComment on above:Performed By: #### APARVP, AF5MUT, APRTSF, ACOXAB, ACOXA9, APTMUT, AMTHFR, APROTS #### [facility] [address] [place] [address] Field Operations Supervisor: Arben Carrington MD #### AT3A, PROSAC, HOCYS, ACARDA, FT4, PROCAC, TSH #### [facility] [address] [place] [address] Field Operations Supervisor: DUNIA Barton CARDIOLIPIN AB IGG IGA IGMon 53-85-4295NRF IgA<2.7Cedacz2-96.9Aultman HospitalComment on above:Performed By: #### NATHAN, 5124-3, 40285-8, 46079-4, 28518-3 #### [facility] ([id number]) [address], [address] [place], [place] [address]DIN IgG<1.3Kyjdll6-82.9ProSelect Medical [facility] Clinic Rehabilitation Hospital, Beachwood HospitalComment on above:Performed By: #### NATHAN, 5124-3, 88203-6, 13227-1, 08797-7 #### [facility] ([id number]) [address], [address] [place], [place] [address]MAS IgM<1.7Tvlnvy4-09.9ProZanesville City HospitalComment on above:Performed By: #### NATHAN, 5124-3, 60451-3, 86136-5, 84136-8 #### [facility] ([id number]) [address], [address] [place], [place] [address]Sdle cardiolipin AB IgG IgA IgMon 71-74-6000Tjxguenmwyv IgA IA Qn (S)[facility] HospitalCardiolipin IgG IA Qn (S)[facility] Cardiolipin IgM IA Qn (S)[facility] Area HospitalCMV IgG IA Qnon 69-68-2686Ltgpfslvreobln and review of laboratory resultsAbnormal [facility]ville Area HospitalCYTOMEGALOVIRUS IgG>8.0High<0.9 [facility] HospitalComment on above:Result Comment: Interpretation-------- <0.9 Negative 0.9 - 1.0 Equivocal >1.0 Positive Performed By: #### NATHAN, 5124-3, 91863-6, 63000- 5, 74207-4 #### [facility] ([id number]) [address] [place] [address], [address] [address]MGY IgMon 96-71-4872CGO IgM IA [facility] Comment on above: Interpretation-------- <0.9 Negative 0.9 - 1.0 Equivocal >1.0 Positive NOTE The following results were obtained with the [facility] ToRC IgM test. Results obtained from other [employer]'s assay methods may not be used interchangeably. CMV IgM IA Qlon 46-07-5941BoqCyphcyProtestant HospitalCYTOMEGALOVIRUS IgM<0.2Normal <0.9[facility]ultman HospitalComment on above:Result Comment: Interpretation-------- <0.9 Negative 0.9 - 1.0 Equivocal >1.0 Positive NOTE The following results were obtained with the [facility] [address] ToRC IgM test. Results obtained from other [employer]'s assay methods may not be used interchangeably.Performed By: #### NATHAN, 5124-3, 73037-5, 81140-2, 90984-5 #### [facility] ([id number]) [address] [place] [address], [address] [place], [place] [address]Jkzgypfszhiwtdl antibody, IgGon 12-16-6396AVY IgG IA QnHighNICarondelet HealthComment on above: Interpretation-------- <0.9 Negative 0.9 - 1.0 Equivocal >1.0 Positive Syphilis Total(Unknown Syphilis Status)on 08-04-2023T. pallidum IgG+IgM IA Ql (S)[facility] HospitalComment on above:NON REACTIVE No serologic evidence of infection to Treponema pallidum (syphilis). Repeat testing may be considered in patients with suspected acute or primary syphilis in 2 to 4 weeks. T. gondii IgM IA Qlon 91-32-4366GggVvjphdProtestant HospitalTOXOPLASMA IGM<0.2Normal <0.9ProZanesville City HospitalComment on above:Result Comment: Interpretation-------- <0.9 Negative 0.9 - 1.0 Equivocal >1.0 Positive NOTE The following results were obtained with the [facility] To[facility] IgM test. Results obtained from other [employer]'s assay methods may not be used interchangeably.Performed By: #### NATHAN, 5124-3, 14768-9, 32322-5, 36257-5 #### [facility] ([id number]) [address] [place] [address], [address] [address]C. pallidum IgG+IgM IA Ql (S)on 21-99-7446PkcNalwae[address] [place], [place] [address]yphilis Total<0.5Tngoeg5.0-0.8ProZanesville City HospitalComment on above: Result Comment: NON REACTIVE No serologic evidence of infection to Treponema pallidum (syphilis). Repeat testing may be considered in patients with suspected acute or primary syphilis in 2 to 4 weeks.Performed By: #### NATHAN, 5124-3, 07887-6, 91689-6, 04157-8 #### [facility] ([id number]) [address] [place] [address], [address] [place], [place] [address]Hhxdfjykhv IgMon 08-04-2023T. gondii IgM IA QjG3VXPT - 0.9 A1 [facility] HospitalComment on above: Interpretation-------- <0.9 Negative 0.9 - 1.0 Equivocal >1.0 Positive NOTE The following results were obtained with the [facility] To[facility] IgM test. Results obtained from other [employer] assay methods may not be used interchangeably. dRVVT/dRVVT.excess phospholipid Coag (PPP) [Ratio]on 27-77-9359MNOXOZ MADHURI'S VIPER VENOMNegativeNormalProZanesville City HospitalComment on above:Performed By: #### 78781-1 #### [facility] ([id number]) [address] [place] [address], [address] [place], [place] [address]iRKGT excess phospholipid Coag Ql (PPP)NegativeTitusville Area HospitalMRI KNEE WO CONTRAST LEFTon 48-87-0094TYL KNEE WO CONTRAST [facility] HEALTHUnThe MetroHealth SystemDepartment of Xnwuxebpa[address] [place] [id number] Patien t Name: SISI CELIS : 1995Sex: FAge: Race: WhiteMRN: [id number]. Location: LPOPPatient Status: DVisit #: [id number] Date: 04/18/2017 8:15:00 AMCompleted Date: 04/18/2017 08:53 AMRequesting Provider: MORIAH BOND Attending Provider: Report Copy To: OLMAN VELA Signs & Symptoms:Internal derangement knee, leftHistory: Order in RIS, No FB per mother Auth # [id number] Valid 04/06/17-05/06/17. Auth scanned into RIS.Comments: Exam: MRI KNEE WO CONTRAST LEFTAccession #: [id number]==== MRI KNEE WO CONTRAST LEFT 04/18/2017 8:53 [...] 2. Intrasubstance high signal of the medial menis cus posterior horn and body is suspicious but not definitive for tear. See series 7 image 21. No significant effusion or other striking inflammatory change, perhaps minor patellofemoral friction. Seeseries 4 image 16. Electronically signed by:Guzman Saba. Transcribed by: [email or web address], User Resident: Electronically Signed by: GUZMAN SABA @ 04/20/2017 02:46 [facility] Vital Signs Date TimeVital SignValuePerforming BhnxgirbpMqykyrwa28-48-7465 09:19-0400Body jkfoum388.2 cmCorey Emili DO Work Phone: [facility] CenterUdnryumgws63-38-9121 09:19-0400Body mass index (BMI) [Ratio]46.52 kg/l6Krgqf Emili DO Work Phone: [facility] CenterLandtwbmql89-08-0262 09:19-0400Body .72 kgCorey Emili DO Work Phone: [facility] CenterZhioeqjils67-20-1283 09:19-0400Diastolic blood fcbfqdar01 mm[Hg]Contreras Emili DO Work Phone: [facility] CenterEztohxgyud31-99-0143 09:19-0400Systolic blood pwovbokj447 mm[Hg]Contreras Emili DO Work Phone: [phone] [place], [place] [address]Wmtfusnxjd86-94-3975 10:54-0400Body tfsuxs597.18 cmVeronica Singh CONTRACTS SPECIALIST Work Phone: [phone]78[facility]06-24-2025 10:54-0400 Body mass index (BMI) [Ratio]46.2 kg/u3AthjjommVeronica Singh CONTRACTS SPECIALIST Work Phone: [phone]06-24-2025 10:54-0400 Body owpxchtgrbz04.3 [degF]Veronica Singh APRN Work Phone: [phone]06-24-2025 10:54-0400 Body diphvc881.8 kgVeronica Singh CONTRACTS SPECIALIST Work Phone: [phone]06-24-2025 10:54-0400 Diastolic blood dohnkdkj70 mm[Hg]Veronica Singh APRN Work Phone: [phone] [place], [place] [address]06-24-2025 10:54-0400 Heart rate95 /minVeronica Singh CONTRACTS SPECIALIST Work Phone: [phone]06-24-2025 10:54-0400 SaO2% (BldA) [Mass fraction]98 %Veronica Singh APRN Work Phone: [phone]06-24-2025 10:54-0400 Systolic blood ebomyexm720 mm[Hg]Veronica Singh APRN Work Phone: [phone]06-11-2025 11:28-0400 Body ccwzru706.18 cmMer[facility] Health [facility] Hospital06-11-2025 11:28-0400Body mass index (BMI) [Ratio]45.7 kg/y3LhkeytbrkMercy Health Lorain Hospital06-11-2025 11:28-0400Body ybbdtzmrziv12.7 [degF][facility]06-11-2025 11:28-0400Body gqxizm701.44 kgMercy Health Lor[facility] Hospital06-11-2025 11:28-0400Diastolic blood hlqbhupw82 mm[Hg][facility] 12-21-2024 11:28-0400Heart rate78 /minMercy Health Lorain Hospital 12-21-2024 11:28-5401ZqL9% (BldA) [Mass fraction]98 %[facility]06-11-2025 11:28-0400Systolic blood hkpomdbx529 mm[Hg][facility]04-25-2025 08:58-0400Body eoblbp193.18 cmMercy Health Lor[facility] Hospital04-25-2025 08:58-0400Body mass index (BMI) [Ratio]45.8 kg/m2 [facility]04-25-2025 08:58-0400Body grgmlndsisg47.5 [degF][facility]04-25-2025 08:58-0400Body .9 kg [facility]04-25-2025 08:58-0400Diastolic blood mm[Hg][facility]04-25-2025 08:58-0400Heart rate84 /min [facility]04-25-2025 08:58-6090EsE1% (BldA) [Mass fraction]98 %[facility]04-25-2025 08:58-0400Systolic blood ckwqecbe665 mm[Hg][facility]03-24-2025 09:03-0400 Body .18 cmMercy Health Lor[facility] Hospital03-24-2025 09:03-0400Body mass index (BMI) [Ratio]46.2 kg/j6EybcnwwusMercy Health Lorain Hospital03-24-2025 09:03-0400Body jxaxcmmukev85.2 [degF][facility]03-24-2025 09:03-0400Body muqgcf557.97 kgMercy Health Lor[facility] Hospital03-24-2025 09:03-0400Diastolic blood adbkckrs08 mm[Hg][facility] 10-03-2024 09:03-0400Heart qpoj801 /minMercy Health [facility] Hospital 10-03-2024 09:03-0407OwK4% (BldA) [Mass fraction]98 %[facility]03-24-2025 09:03-0400Systolic blood mm[Hg][facility]12-18-2024 15:10-0500Body mass index (BMI) [Ratio]46.27 kg/m2Olga PAUL Work Phone: [facility] CenterTnwbwmiyqy28-66-6800 15:10-0500Body ilbbfq184.99 kgOlga PAUL Work Phone: [phone] CenterZtibrszsau18-80-8663 15:10-0500Diastolic blood xpphdqel27 mm[Hg]Olga PAUL Work Phone: [phone] CenterFnbaktluyk15-92-2172 15:10-0500Systolic blood eazoskdh384 mm[Hg]Olga PAUL Work Phone: [phone]-[facility] WayneCenterpoint Medical CenterPkiwagauyl44-23-5343 13:10-0500Body mass index (BMI) [Ratio]46.2 kg/y8Pmpja Emili DO Work Phone: [facility] CenterBsfcdzcnqi72-33-9339 13:10-0500Body okswwz953.81 kgCorey Emili DO Work Phone: [facility] CenterObrlcyazts52-89-1385 13:10-0500Diastolic blood tbndqsko80 mm[Hg]Contreras Emili DO Work Phone: [facility] CenterMmraefzfdt79-30-5654 13:10-0500Systolic blood neslauoc232 mm[Hg]Contreras Emili DO Work Phone: [phone]-[facility] CenterCbnyiilrmf54-16-3086 13:06-0400Body mass index (BMI) [Ratio]44.5 kg/d3Pyuig Emili DO Work Phone: [facility] CenterTnlirrzsjk26-62-5119 13:06-0400Body iazcpr930.88 kgCorey Emili DO Work Phone: [facility] CenterNhipbyvqhk99-98-1212 13:06-0400Diastolic blood gbrhuyun54 mm[Hg]Contreras Emili DO Work Phone: [facility] CenterMiumijqsvf08-18-3705 13:06-0400Systolic blood mm[Hg]Contreras Emili DO Work Phone: [facility] CenterOtxyoevvlh53-06-7973 02:11-3013HfU8% (BldA) [Mass fraction]89 %JAK [facility] HEALTHCARE CENTERJULIETAUniversity Hospitals St. John Medical Centerkaitlin [facility]aritan HospitalComment on above:Performed By: #### UPCR, DSU #### [facility] ([id number]) [address], [address] [place], [place] [id number] 10:27-0500Body mass index (BMI) [Ratio]44.19 kg/m2 Contreras Emili DO Work Phone: [facility] CenterUguhxlodqq71-27-5406 10:27-0500Body ljtfej524.97 kgCorey Emili DO Work Phone: [facility] CenterWkkzmbeeis07-03-5689 10:27-0500Diastolic blood mm[Hg]Contreras Emili DO Work Phone: [facility] CenterYoytkmnqwg88-12-8489 10:27-0500Systolic blood flgeqwzi349 mm[Hg]Contreras Emili DO Work Phone: [facility] CenterYjnhgmkrzr33-43-6705 10:46-0500Diastolic blood ojthpexv45 mm[Hg]Yanelis Garrido MD Work Phone: [facility]2024 10:46-0500Heart rate 85 /minYanelis Garrido MD Work Phone: [facility]-2024 10:46-0500Systolic blood kqqjaqjv127 mm[Hg]Yanelis Garrido MD Work Phone: [employer] Tpluno72-77-6170 08:25-0500Body fdwihi652.2 cmYanelis Garrido MD Work Phone: pH[facility] CenterKupiBonus Vfzrqx18-06-2421 08:25-0500Body mass index (BMI) [Ratio]43.98 kg/o8FwjjgYanelis Garrido MD Work Phone: [employer] Xtgveg72-41-1144 08:25-0500Body zycvgq174.37 kgYanelis Garrido MD Work Phone: [phone] [place] [address] Encounters Encounter DateEncounter TypeCare ProviderFacilityStart: 01-19-2025 End: 98-80-3721Daeogx flowsheetCorey Emili DO Work Phone: noms BCP OBStart: 01-19-2025 End: 18-68-0232Nmlred flowsheetCorey Emili DO Work Phone: noms BCP OBStart: 01-19-2025 End: 88-30-1461Bqryxq outpatient visit 15 minutesCorey Emili DO Work Phone: noms BCP OBComment on above:Pelvic pain in female; Hx of ovarian cyst; PCOS (polycystic ovarian syndrome); Insulin resistanceStart: 01-19-2025 End: 40-22-4175bndqpphzmqMGKSX FAZIONot AvailableStart: 01-14-2025 End: 45-59-3550ntfualtkleBuhuzbwu Rohrbacher APRN Work Phone: [facility] Work Phone: Start: 01-14-2025 End: 81-32-2874Ukpsqyvp ReferredDaismael Talavera MD-LAB Path Spec [facility] Start: 96-52-9630Mee-patient / Non-visitDaismael Talavera MD-[facility] Work Phone: Start: 01-03-2025 End: 46-33-7156Oxrxkcz encounter procedureVeronica Singh APRN [facility] Work Phone: Start: 12-21-2024 End: 29-48-9928zeggxibglzSsfnlbkipSt. Francis Hospital Work Phone: Start: 12-21-2024 End: 96-04-0643Amldsuq encounter procedureAt[facility] Health [facility] Physician GroupM[facility] Work Phone: Start: 11-04-2024 End: 40-70-3046cimktchbuaGffhjoyuzSelect Medical Specialty Hospital [facility] Work Phone: Start: 11-04-2024 End: 44-08-9246Hqmuowh encounter procedureAtrium Health [facility] Physician [facility] Work Phone: Start: 10-03-2024 End: 69-99-3869yneyxemgjmEdmykcormSt. Francis Hospital Work Phone: Start: 10-03-2024 End: 52-45-2201Uzxqwtc encounter procedureAt[facility] Health [facility] Physician [facility] Work Phone: Start: 08-05-2024 End: 07-60-3681Uvvvhcbly to same day surgery Jaret Tuttle PhD Work Phone: General Surgery BMI PSYLComment on above:Psychological factors affecting medical condition (Primary Dx); Obesity, unspecified class, unspecified obesity type, unspecified whether serious comorbidity presentStart: 08-05-2024 End: 59-76-4367Ljiondevwtbn consultation with patientOlivia Tuttle PhD Work Phone: General Surgery BMI PSYLStart: 07-75-9178sqkceosjhjVM CHARLES P HOUSEFacility:[facility] HospitalStart: 06-29-2024 End: 00-97-2377Rxqiwa outpatient visit 10 minutesOlga PAUL Work Phone: noms BCP OBComment on above:Encounter for weight managementStart: 06-29-2024 End: 88-71-1410rscqgptbnxGRA RAMEYNot AvailableStart: 06-29-2024 End: 28-12-7627Ifflnq flowsheetOlga PAUL Work Phone: noms BCP OBStart: 06-29-2024 End: 14-08-1852Gewocn flowsheetAmy Luz PA Work Phone: NOFG [facility] OBStart: 05-30-2024 End: 22-81-2825Ylbwdf flowsheetCorey Emili DO Work Phone: noms [facility] OBStart: 05-30-2024 End: 88-59-6462Rhawvq flowsheetCorey Emili DO Work Phone: NOXQ [facility] OBStart: 05-30-2024 End: 79-20-3931Jjbnii outpatient visit 15 minutesCorey Emili DO Work Phone: NORS [facility] OBComment on above:Encounter for weight management; AnxietyStart: 05-30-2024 End: 81-29-6865lbtttsjctwJJGPT FAZIONot AvailableStart: 05-03-2024 End: 43-91-5010Dvdncw flowsheetCorey Emili DO Work Phone: NOFM [facility] OBStart: 05-03-2024 End: 94-86-8090Ipvikt flowsheetCorey Emili DO Work Phone: noms [facility] OBStart: 05-03-2024 End: 22-58-1017Ipttbkhnb Result EncounterCorey Emili DO Work Phone: noFL External Department UnsolicitedStart: 05-03-2024 End: 36-68-1682Ivlzdah encounter procedureCorey Emili DO Work Phone: [facility] Work Phone: Start: 05-03-2024 End: 16-75-8903Ilwkzjrf preventive med est patient 18-39 yrsCorey Emili DO Work Phone: NOMS [facility] OBComment on above:Well woman exam with routine gynecological exam; depression (CMS/HCC); Follow-up exam; Post depression (CMS/HCC); Insulin resistanceStart: 05-03-2024 End: 77-59-8647wbdzpqnflvNSNTH FAZIONot AvailableStart: 04-27-2024 End: 02-44-6155xcatwllchbCD CHARLES P HOUSEFacility:[facility] ClinicStart: 04-05-2024 End: 22-83-7263hqgewgujdrDI CHARLES P HOUSEFacility:[facility] ClinicStart: 03-08-2024 End: 93-79-7153Zxypsj flowsheetCorey Emili DO Work Phone: NOMS BCP OBStart: 03-08-2024 End: 50-81-1875Rfwpqo flowsheetCorey Emili DO Work Phone: NOMS BCP OBStart: 03-08-2024 End: 15-59-2451Yozmll outpatient visit 15 minutesCorey Emili DO Work Phone: NOMS BCP OBComment on above:Post depression (CMS/HCC)Start: 03-08-2024 End: 51-00-4802bxcikpezawWNGOZ FAZIONot AvailableStart: 50-32-6460yaysvbghlv CHARLES P HOUSEFacility:[facility] ClinicStart: 03-07-2024 End: 91-42-6208tvwzayegdcSMAQCCW P HOUSEFacility:[facility] ClinicStart: 02-04-2024 End: 48-86-2456cnadlprybbUT CHARLES P HOUSEFacility:[facility] ClinicStart: 01-05-2024 End: 19-36-9814cereubdxvkOA CHARLES P HOUSEFacility:[facility] ClinicStart: 12-21-2023 End: 55-36-5379Froirnlso EncounterAlfonzo Guerra MD Work Phone: [address] NICUStart: 12-20-2023 End: 00-45-5298Hizgdwgkl EncounterAlfonzo Guerra MD Work Phone: [phone] [place] [address] NICUStart: 12-18-2023 End: 80-74-2440Waldwrffb EncounterAlfonzo Guerra MD Work Phone: [phone] [place] [address] NICUStart: 12-17-2023 End: 08-47-5649Wdqzisdul EncounterAlfonzo Guerra MD Work Phone: [phone] [place] [address] NICUStart: 12-13-2023 End: 30-08-4519Hkrtmcuek EncounterAlfonzo Guerra MD Work Phone: [phone] [place] [address] 3E NICUStart: 12-11-2023 End: 33-36-4120Rlomgcnmh EncounterAlfonzo Guerra MD Work Phone: [phone] [place] [address] NICUStart: 12-10-2023 End: 32-53-3471Cazsjpiyq EncounterAlfonzo Guerra MD Work Phone: [phone] [place] [address] NICUStart: 12-08-2023 End: 79-00-9191Crnmiotwk EncounterAlfonzo Guerra MD Work Phone: [phone] [place] [address] NICUStart: 12-07-2023 End: 53-81-0209Vnequwcmd EncounterAlfonzo Guerra MD Work Phone: [phone] [place] [address] NICUStart: 12-04-2023 End: 89-16-5378Yaypyhqfh EncounterAlfonzo Guerra MD Work Phone: [phone] [place] [address] NICUStart: 12-03-2023 End: 15-65-4424Wjtcffdls EncounterAlfonzo Guerra MD Work Phone: [phone] [place] [address] NICUStart: 12-01-2023 End: 01-77-9315Kdmuqhalo EncounterAlfonzo Guerra MD Work Phone: [phone] [place] [address] NICUStart: 11-27-2023 End: 30-69-0919Jzoccachm EncounterAlfonzo Guerra MD Work Phone: [phone] [place] [address] NICUStart: 11-26-2023 End: 24-72-4355Ojwremmlv EncounterAlfonzo Guerra MD Work Phone: [phone] [place] [address] 3E NICUStart: 11-24-2023 End: 84-25-6738Difiohupr EncounterAlfonzo Guerra MD Work Phone: [phone] [place] [address] 3E NICUStart: 11-20-2023 End: 11-16-1201Replonxdk EncounterAlfonzo Guerra MD Work Phone: [phone] [place] [address] 3E NICUStart: 11-19-2023 End: 39-12-2857Okwjzyqhq EncounterAlfonzo Guerra MD Work Phone: [phone] [place] [address] 3E NICUStart: 11-17-2023 End: 75-06-2830Vvbwjnval EncounterAlfonzo Guerra MD Work Phone: [phone] [place] [address] 3E NICUStart: 11-13-2023 End: 31-71-6213Ngianwrac EncounterAlfonzo Guerra MD Work Phone: [phone] [place] [address] 3E NICUStart: 11-12-2023 End: 51-77-1483Ajrzowuwj EncounterAlfonzo Guerra [facility] 3E NICUStart: 11-10-2023 End: 78-34-5322Vqbmjcwfb EncounterAlfonzo Guerra MD Work Phone: [phone] [place] [address] 3E NICUStart: 11-09-2023 End: 24-48-5271Cwdqgxmqa EncounterAlfonzo Guerra MD Work Phone: [phone] [place] [address] 3E NICUStart: 11-07-2023 End: 60-69-4942Qozyunvgy EncounterAlfonzo Guerra MD Work Phone: [phone] [place] [address] 3E NICUStart: 11-06-2023 End: 30-12-0044Olciukiom EncounterAlfonzo Guerra MD Work Phone: [phone] [place] [address] NICUStart: 11-05-2023 End: 85-94-4021Pbznmkhna EncounterAlfonzo Guerra MD Work Phone: [phone] [place] [address] 3E NICUStart: 11-04-2023 End: 23-35-5216Qiuekelpa EncounterAlfonzo Guerra MD Work Phone: [phone] [place] [address] 3E NICUStart: 11-03-2023 End: 60-07-0648Otgxakgjs EncounterAlfonzo Guerra MD Work Phone: [phone] [place] [address] 3E NICUStart: 11-01-2023 End: 68-18-1401Kswmsxxrn EncounterAlfonzo Guerra MD Work Phone: [phone] [place] [address] 3E NICUStart: 10-31-2023 End: 53-54-8379Ooplqlbqu EncounterAlfonzo Guerra MD Work Phone: [phone] [place] [address] 3E NICUStart: 10-29-2023 End: 43-75-5353Otkdogale EncounterAlfonzo Guerra MD Work Phone: [phone] [place] [address] 3W NICUStart: 10-27-2023 End: 76-08-2477Jexmdmxjz EncounterAlfonzo Guerra MD Work Phone: [phone] [place] [address] 3W NICUStart: 10-26-2023 End: 85-14-8582klfghldqzpGAQXZ FAJOSHONot AvailableStart: 10-22-2023 End: 74-48-6262Mqtxvxkdt EncounterAlfonzo Guerra MD Work Phone: [phone] [place] [address] 3W NICUStart: 10-20-2023 End: 52-33-8081Jbgywiixh EncounterAlfonzo Guerra MD Work Phone: [phone] [place] [address] 3W NICUStart: 10-20-2023 End: 75-49-9167Tkfolafxg department patient visitDAVID A [facility] HospitalStart: 00-76-8543Kaxktqpex EncounterDagabrielle Guerra MD Work Phone: [facility] 3W NICUStart: 10-15-2023 End: 83-92-9342oyworqcsohGRVIERFaith Regional Medical Center SystemStart: 10-15-2023 End: 30-62-3944Skgmnk outpatient visit 10 minutesMiriam Hospitale Kishore YOUNGBLOODN-SOCIAL MEDIA COMMUNITY MANAGER Work Phone: c[facility] - Women's ServicesComment on above:Pre-eclampsia superimposed on chronic hypertension, delivered (Primary Dx); History of C-sectionStart: 78-61-1437Uyrpcjjpo EncounterDagabrielle Guerra MD Work Phone: [facility] 3W NICUStart: 10-12-2023 End: 85-19-6714Mhtvmmgmdm and management of inpatientCALEB ANDREWSSouthwest General Health Center HospitalStart: 10-08-2023 End: 27-57-4884Iffjrsvfsl and management of inpatientALLISON METHENITISSouthwest General Health Center HospitalStart: 10-05-2023 End: 97-76-2601Ipqaskdzjt and management of inpatientHALEY N [facility] HospitalStart: 09-28-2023 End: 94-07-1133Lwycpelrwm and management of inpatientMAGGIE LYNDSEY VENTURA AMY [facility] HospitalStart: 09-28-2023 End: 19-58-3448royeqxfcmtRGSGZDJN [facility] HospitalStart: 09-27-2023 End: 33-32-1968Jcuedifxac and management of inpatientDAVID A HARPERSouthwest General [facility] HospitalStart: 2023 End: 86-05-3038pcvnhspprwEQSOC Sarika AvailableStart: 49-51-8169Uttmcl Only Carla Guerra CMAMaternal- Medicine at [facility] HospitalComment on above:IUGR (intrauterine growth restriction) affecting care of mother, second trimester, not applicable or unspecified fetus; Chronic hypertension affecting ; Hx of preeclampsia, prior , currently , second trimesterIUGR (intrauterine growth restriction) affecting care of mother, second trimester, not applicable or unspecified fetus (Primary Dx); Chronic hypertension affecting ; Hx of preeclampsia, prior , currently , second trimesterStart: 62-52-6996Aircibhalcypz procedureElizabeth WILLARDGC Work Phone: [phone]-Srapz [facility] Comment on above:Outgoing CallStart: 08-18-2023 End: 01-95-0229Zrdxvgpl flow sheetCorey Emili DO Work Phone: NOMS BCP OBComment on above:Second trimester ; Diabetes mellitus screening; Thyroid disease affecting ([facility])Start: 08-18-2023 End: 13-44-5676jyrrpbnqqiCJGOJ FAZIONot AvailableStart: 63-99-0950Dpdpjhdvz encounterMarcolby Olson LPNMaternal- Medicine at [facility] Start: 08-06-2023 End: 15-79-7944kccekpxcvmZMTULW [facility] Hospitaltart: 85-06-1822Uwbtjtifpihxm procedureYanelis Garrido MD Work Phone: [phone]-Zbgcx [facility] Start: 86-65-0194Imrffeeka encounterStacy Justin RNMaternal- Medicine at [facility] Hospitaltart: 58-12-2485Evviggamwcrfu procedureCarla Guerra CMAMaternal- Medicine at [facility] HospitalStart: 08-04-2023 Telephone encounterLeslie DaviderMaternal- Medicine at [facility] HospitalComment on above:AppointmentIUGR (intrauterine growth restriction) affecting care of mother, second trimester, not applicable or unspecified fetus (Primary Dx); History of delivery, currently ; 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 trimester; Chronic hypertension affecting pregnancyStart: 08-04-2023 End: 24-68-5018kocwxzdayaBWOJK R DIXIEKettering Health Hamiltontart: 08-04-2023 End: 81-66-7921Uawyyy outpatient visit 40 minutesYanelis Garrido MD Work Phone: [phone]-Zyglr [facility] Comment on above:IUGR (intrauterine growth restriction) affecting care of mother, second trimester, not applicable or unspecified fetus (Primary Dx); History of delivery, currently ; 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 trimester; Hx of preeclampsia, prior , currently , second trimesterStart: 07-22-2023 End: 71-68-8753wprpvrqtbnWOUMI FAZIONot AvailableStart: 06-18-2023 End: 58-04-0736nfgvueqvibRYNPI FAZIONot AvailableStart: 11-24-2022 End: 06-84-8968hcrmoqprtvNP DOCTOR MISCFacility:X5Uayos: 04-18-2017 End: 31-36-1156GboyrvyzggKIOLULY HOYFacility:[facility] Procedures DateProcedureProcedure DetailPerforming ClinicianStart: 57-37-8088HKR,APTIMA HPV,AGE GDLNCorey Emili DO Work Phone: Start: 93-54-0855Ravtm dip stick/tablet rgnt non-auto w/o micrscpCorey Emili DO Work Phone: Start: 60-73-1061UQQEYRUZ LAB TESTYanelis Garrido MD Work Phone: Start: 97-01-6859Vldjrfqffpc observation [Identifier] in Cervix by Cyto stainAlfonzo Guerra MD Work Phone: H/O: sectionHistory of C-sectionKelsven Novak CONTRACTS SPECIALIST-SOCIAL MEDIA COMMUNITY MANAGER Work Phone: Plan of Treatment DateCare ActivityDetailAuthorStart: 98-90-2883ENqC,Tdap and Td Vaccines (7 - Td or Tdap)DTaP,Tdap and Td Vaccines (7 - Td or Tdap)[facility] SystemStart: 00-91-9664Yokwh microalbumin profileDTaP,Tdap,Td Vaccine (7 - Td or Tdap) [facility] Hospitaltart: 74-00-3479Ibdoavikk for malignant neoplasm of cervixPap SmearProctor HospitalGerman Hospital SystemStart: 05-08-2025 End: 09-65-7305Ozxsyns encounter edowsjcdm18/27/2025 11:00 AM EDT Office Visit [facility] [address] [place] [phone] Contreras Mock, DO [address] [place] [address] NOMS BCP OBStart: 56-79-6231Eprootnxe vaccination Influenza Vaccine (#1)NOMS HealthcareStart: 01-19-2025 End: 98-32-9055QD PelvisUS Pelvis w/ TV Imaging Routine Pelvic pain in female Hx of ovarian cyst PCOS (polycystic ovarian syndrome) Insulin resistance Expected: 01/19/2025, Expires: 07/22/2025[facility] Work Phone: comment on above:Expected: 01/19/2025, Expires: 07/22/2025Start: 01-19-2025 End: 92-76-8032Jasrxdi encounter dmgjurxzv35/10/2025 9:00 AM EDT Office Visit [facility] OB [address] [facility] [address] Contreras Mock, DO [address] [place] [address] ArrivedNOWESTERN MEDICAL [facility] OBComment on above:ArrivedStart: 62-11-6654Xpxno cultureWexner Medical Centertart: 01-14-2025 Bacteria identified in Urine by CultureUrine [facility] Hospitaltart: 64-48-4757Bkwyz BMI ScreeningAdult BMI ScreeningFairfield Medical Center SystemStart: 64-86-5948Fuzsioi ScreeningTobacco ScreeningFairfield Medical Center System Start: 36-11-8924Dvtmb BMI ScreeningAdult BMI ScreeningFairfield Medical Center System Start: 54-48-7308Bsnrmjs ScreeningTobacco ScreeningFairfield Medical Center SystemStart: 08-04-2024 End: 37-10-2493GX MFM with or without consultUS MFM with or without consult Imaging Routine IUGR (intrauterine growth restriction) affecting care of mother, second trimester, not applicable or unspecified fetus History of delivery, currently 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 trimester Chronic hypertension affectingpregnancy Expected: 08/04/2024 (Approximate), Expires: 08/04/2024[facility] Work Phone: comment on above:Expected: 08/04/2024 (Approximate), Expires: 08/04/2024Start: 06-29-2024 End: 44-65-8162Ikthgpz encounter /18/2024 3:00 PM EST Office Visit [facility] [address] [place] [phone] Olga Escobar, PA [address] [place], [place] [id number] ArrivedNOMS BCP OBComment on above:ArrivedStart: 06-27-2024 End: 60-44-4795Oxjgxkk encounter bkbjbejzt67/16/2024 1:30 PM EST Office Visit [facility] [address] [facility] [place] [address] Olga Escobar, PA [address] [place], [place] [address] NOMS BCP OBStart: 05-30-2024 End: 56-68-0894Ixdtpyl encounter fuktmtcsd58/18/2024 1:00 PM EST Office Visit [facility] [address] [facility] [place] [address] Contreras Mock DO [address] [place], [place] [address] NOMS BCP OBStart: 05-03-2024 End: 41-86-7360Aiozfra encounter procedureNOMS BCP OBComment on above:Arrived Start: 76-70-7317Fqbux-19 Vaccine ()Covid-19 Vaccine ( season)[facility] Hospitalrt: 92-76-7710Gxjvfrxam vaccinationCenterpoint Medical CenterStart: 03-08-2024 End: 27-96-8140Ntcjnsr encounter lwwhpcrok58/27/2024 1:00 PM EDT Office Visit [facility] OB [address] [place] [address] Contreras Mock, DO [address] [place] [address] [facility] OBComment on above:ArrivedStart: 10-15-2023 End: 57-44-1363Gkybceqlfniv consultation with tmtgmbn8710/15/2023 9:00 AM EDT Telemedicine [facility] [address] [place] [address] Oma Novak, CONTRACTS SPECIALIST-SOCIAL MEDIA COMMUNITY MANAGER [address] [place] [phone] (Work) [facility] HealthStart: 09-15-2023 End: 29-54-7147Zmhnout encounter saiiayypu32/05/2024 10:20 AM EST Routine [facility] [address] [place] [address] Contreras Mock, DO [address] [place] [address] NOMS BCP OBStart: 08-18-2023 End: 96-35-3805CTR panel - Blood by Automated countCBC Lab Routine Diabetes mellitus screening Expected: 08/18/2023 (Approximate), Expires: 08/18/2024[facility] Work Phone: comment on above:Expected: 08/18/2023 (Approximate), Expires: 08/18/2024Start: 08-18-2023 End: 90-91-7719Kflqsbzmkrg of glucose 1 hour after glucose challenge for glucose tolerance testGlucose tolerance, 1 hour Lab Routine Diabetes mellitus screening Expected: 08/18/2023 (Approximate), Expires: 08/18/2024[facility] HealthcareComment on above:Expected: 08/18/2023 (Approximate), Expires: 08/18/2024Start: 08-17-2023 End: 88-16-3104Msynzdk encounter procedureHenry County Hospital US ImagingStart: 08-05-2023 End: 30-32-8364Kkkhzvmh Lab TestUnlisted Lab Test Lab Routine IUGR (intrauterine growth restriction) affecting care of mother, second trimester, not applicable or unspecified fetus Maternal care for other known or suspected poor growth, unspecified trimester, not applicable or unspecified Expected: 08/05/2023 (Approximate),Expires: 08/05/2024[facility] Work Phone: comment on above:Expected: 08/05/2023 (Approximate), Expires: 08/05/2024Start: 12-33-9223JJRRT-19 Vaccine ()COVID- 19 Vaccine ()[facility] Valdesetart: 87-31-2418Mxhsddgep vaccinationCenterpoint Medical CenterStart: 32-93-4451Xszrzoirh for malignant neoplasm of cervixLima Memorial Hospitaltart: 69-11-7411Ueblk BMI Follow Up PlanAdult BMI Follow Up PlanUNC Health Blue Ridge - Valdesetart: 77-97-2036Fhuhphd ScreeningAnxiety ScreeningLima Memorial Hospitaltart: 66-59-0153Fisjeasirf ScreeningDepression ScreeningLima Memorial Hospitaltart: 33-81-4893Csatylmub C screeningHepatitis C ScreeningAthol ClinicStart: 11-42-1970ZDT screeningHIV ScreeningAthol ClinicStart: 56-18-5661Asraaantqo ScreeningDepression ScreeningPremier Health [facility] End: 97-23-1034Ccvl-2 glycoprotein antibodiesBeta-2 glycoprotein antibodies Lab Routine IUGR (intrauterine growth restriction) affecting care ofmother, second trimester, not applicable or unspecified fetus 1 Occurrences starting 08/04/2023 until 08/03/2024[facility] Work Phone: comment on above:1 Occurrences starting 08/04/2023 until 01/22/2025Comprehensive metabolic 1999 panel - Serum or PlasmaMercy Health Lorain HospitalComprehensive metabolic 1999 panel - Serum or Plasma [facility] HospitalCytology Cervical or vaginal smear or scraping studyPap Smear Pathology and Cytology Routine Well woman exam with routine gynecological exam Ordered: 05/03/2024[facility] [employer] Work Phone: comment on above:Ordered: 05/03/2024US Thyroid gland [facility] HospitalUS Thyroid glandUF Health North Immunizations Immunization DateImmunizationNotesCare PeufkxnvZpvkbfos24-28-1134pscmwwzgp virus vaccine, unspecified formulationCarrie [facility] 33-96-0419notzrlgyv, injectable, quadrivalent, preservative freeCarrie [facility]11-24-2021tetanus toxoid, reduced diphtheria toxoid, and acellular pertussis vaccine, adsorbedCarrie [facility]11-24-2021influenza virus vaccine, unspecified formulationCorey Emili DO Work Phone: [facility] Payers DatePayer CategoryPayerPolicy [id number] [facility] Shield [id number] [id number] [id number] 2.16.840.1.718659.3.57[id number] 2.840.1.746563.3.57[id number] 2.16.840.1.483456.3.57[id number] 2.16.840.1.881508.3.57[id number] 2.16.840.1.757690.3.579.2.782210-16-9315Nuijcjm56111360 2.16840.1.158818.3.579.2.487172-07-2675Bpylwwu89727439 2.16.840.1.375834.3.579.2.395916-33-7659Nypqasw30823832 2.16840.1.737006.3.579.2.901912-28-4779Dqebapw11191855 2.16840.1.017053.3.579.2.663113-00-2187Fevuzok84547852 2.16840.1.026771.3.579.2.586692-18-6860Imfyypk78305993 2.840.1.191556.3.579.2.187438-24-1659Vdxxgol80828014 2.16840.1.839705.3.579.2.057535-62-7856Euyeawp98081376 2.16840.1.425542.3.579.2.358961-26-8614Ekqzpjl12565489 2.16840.1.062614.3.579.2.675944-21-4883Mdwychx3289041 2.16840.1.088227.3.579.2.541959-16-7905Ixxyhps7662755 2.16.840.1.282316.3.579.2.686870-23-2617Cynvhhi0257871 2.16840.1.108573.3.579.2.208157-57-2862Jhuosxs6296324 2.16.840.1.225703.3.579.2.329258-09-9253Hbajsdp8197216 2.16.840.1.184758.3.579.2.341130-12-2795Honrepk726401 2.16.840.1.764727.3.579.2.483835-82-8346Vzqyfnm02402687 2.16.840.1.375051.3.57[id number] 2.840.1.244549.3.57[id number] 2.840.1.881787.3.579.[id number] 2.840.1.793014.3.57[id number] 2.16840.1.190360.3.57[id number] 2.840.1.066536.3.57[id number] 2.840.1.805048.3.579.[id number] 2.840.1.849478.3.579.[id number] 2.16.840.1.556754.3.579.[id number] 2.16840.1.757617.3.579.[id number] 2.16.840.1.604338.3.579.2.3[id number] 2.16840.1.359847.3.579.[id number] 2.16.840.1.605494.3.579.2.[id number] Social History DateTypeDetailFacilityStart: 12-19-2022 End: 49-57-0492Kyfojld smoking status NHISNever smoked tobaccoSE[facility] Start: 08-18-2023 End: 52-62-8662Cawjxto intakeEx-drinker (finding)[facility] HealthcareStart: 12-19-2022 End: 39-60-8789Tbxwmpi of Social functionLima Memorial Hospitaltart: 12-19-2022 End: 53-52-1687Vxkblpk use panelLima Memorial Hospitaltart: 01-08-5911Ywhacmg Comment occasionalNOFL HealthcareStart: 65-14-2187BwxdtfnzpJkuKzihgi Health SystemStart: 15-76-1912Obx Assigned At BirthFeWellSpan Waynesboro HospitalStart: 25-29-8231Cridmv identityIdentifies as female gender (finding)[facility] CenterStart: 04-22-2021 Sexual orientationHeterosexual (finding)[facility] CenterTojohnson memorial hospital smoking status NHISTobacco smoking consumption unknownPremier Health [facility] Hospital SouthAdchristus st. [facility] Depression Screening Oflaknakhu7Fdvtkwhab ClinicStart: 64-12-8845Atdfrso use and exposure Smokeless tobacco non-userFairfield Medical Center SystemStart: 10-03-2024 End: 20-64-1855SrjGikosn (finding)[facility] HospitalNEGATED: Highlighted rowLutheran Hospital Goals DatePatient GoalDesired Activity/StatePersonal health goal Clinical Notes 08-04-2023 to 01-19-2025 Note Date & [id number] History of Present illness Narrative* Irene Hassan, VAMSHI - 01/19/2025 9:00 AM EDT Reason for Appointment: Patient ID: Sisi Mora is a 29 y.o. female who presents for ER Follow-up (Pt present today for an ER f/up visit. Pt was seen at [facility] on 01/14/2025 for pelvic pain h/o cysts.) [...] poor growth, unspecified trimester, not applicableor unspecified ([facility]) 05/28/2021 Migraine headache 02/12/2023 Morbid [place] 02/12/2023 PCOS (polycystic ovarian syndrome) 02/12/2023 Seasonal allergic rhinitis 02/12/2023 Resolved Ambulatory Problems Diagnosis Date Noted No Resolved Ambulatory Problems Past Medical History: Diagnosis Date History of Hyperthyroidism Hypothyroidism Insulin resistance Morbid obesity with body mass index (BMI) of 40.0 to 49.9 [place] Pap smear for cervical cancer screening 11/24/2022 HISTORY PAST MEDICAL HISTORY SOCIAL HISTORY Past Medical History: Diagnosis Date History of Hyperthyroidism Hypothyroidism Insulin resistance Morbid obesity with body mass index (BMI) of 40.0 to 49.9 [place] Body mass index (BMI) of 40.0 to [...] SECTION, LOW TRANSVERSE MOLE REMOVAL 12/[address] KNEE SCOPE,CLEAN/DRAIN Left 09/2014 TONSILLECTOMY TUBAL LIGATION [...] will try hormone management for 6 months tosee if this help. Patient denies pain at [...] by Irene Hassan LPN on behalf of: Contrersa Mock DO documented in this [facility]04-25-2025 Evaluation note* Diagnosis Onset Date Resolution Status Admit Date Hypertension acuteApril 2024 8:54amHypothyroidismacuteApril 2024 8:54amObesity, morbid, BMI 40.0-49.9acuteApril 2024 8:54amBronchitisacuteJune 2024 11:26amDepressionacuteJune 2024 10:45amHypertensionacuteJune 2024 10:45amImpaired fasting glucoseacuteJune 2024 10:45amInsulin resistance acuteJune 2024 10:45amObesity, morbid, BMI 40.0-49.9acuteJune 2024 10:45amPCOS (polycystic ovarian syndrome)acuteJune 2024 10:45am [facility] Work Phone: 1(111) 110-353203-24-2025 Evaluation note* Diagnosis Onset Date Resolution Status Admit Date Fatigue acuteMarch 2024 8:52amHypertensionacuteMarch 2024 8:52am HypothyroidismacuteMarch 2024 8:52amObesity, morbid, BMI 40.0-49.9acuOctober 03, 2024 8:52amThyroid noduleacuteMarch 2024 8:52am [facility] Work Phone: 1(219) 762-812903-24-2025 Evaluation note* Diagnosis Onset Date Resolution Status Admit Date Fatigue acuteMarch 2024 8:52amHypertensionacuteMarch 2024 8:52am HypothyroidismacuteMarch 2024 8:52amObesity, morbid, BMI 40.0-49.9acuOctober 03, 2024 8:52amThyroid noduleacuteMarch 2024 8:52amHypertension acuteApril 2024 8:54amHypothyroidismacuteApril 2024 8:54amObesity, morbid, BMI 40.0-49.9acuteApril 2024 8:54amBronchitisacuteJune 2024 11:26am [facility] Work Phone: 1(906) 975-656401-24-2025 History of Present illness Narrative* Olivia Tuttle, PhD - 08/05/2024 10:46 AM EST Siis Mora [id number] August 05, 2024 [facility] Bariatric and Metabolic [place] [facility] M61 Psychology Orientation/ Welcome Group [...] Olivia Tuttle, Ph.D. Psychologist documented in this encounterPremier Health [facility] Hospital South12-18-2024 History of Present illness Narrative* HUMBERTO Lovell [...] Diagnosis Date Noted Anxiety 02/12/2023 Bronchial asthma ([facility] 02/12/2023 Depression ([facility]) 02/12/2023 Essential hypertension ([facility]) 02/12/2023 GERD (gastroesophageal reflux disease) 02/12/2023 Insomnia 02/12/2023 Maternal care for other known or suspected poor growth, unspecified trimester, not applicableor unspecified 05/28/2021 Migraine headache ([facility]) 02/12/2023 Morbid obesity ([facility]) 02/12/2023 PCOS (polycystic ovarian syndrome) 02/12/2023 Seasonal allergic rhinitis 02/12/2023 Resolved Ambulatory Problems Diagnosis Date Noted No Resolved Ambulatory Problems Past Medical History: Diagnosis Date History of Hyperthyroidism ([facility]) Hypothyroidism ([facility]) Insulin resistance Morbid obesity with body mass index (BMI) of 40.0 to 49.9 ([facility]) Pap smear for cervical cancer screening 11/24/2022 HISTORY PAST MEDICAL HISTORY SOCIAL HISTORY Past Medical History: Diagnosis Date History of Hyperthyroidism (CMS/HCC) Hypothyroidism ([facility]) Insulin resistance Morbid obesity with body mass index (BMI) of 40.0 to 49.9 ([facility]) Body mass index (BMI) of 40.0 to [...] SECTION, LOW TRANSVERSE MOLE REMOVAL 12/[address] KNEE SCOPE,CLEAN/DRAIN Left 09/2014 TONSILLECTOMY TUBAL LIGATION [...] behalf of: HUMBERTO Lovell documented in this encounterCenterpoint Medical [id number] History of Present illness Narrative* Irene Spitler, EXCHANGE SPECIALIST - 05/30/2024 1:00 PM EST Reason for [...] Diagnosis Date Noted Anxiety 02/12/2023 Bronchial asthma ([facility]) 02/12/2023 Depression ([facility]) 02/12/2023 Essential hypertension ([facility]) 02/12/2023 GERD (gastroesophageal reflux disease) 02/12/2023 Insomnia 02/12/2023 Maternal care for other known or suspected poor growth, unspecified trimester, not applicableor unspecified 05/28/2021 Migraine headache ([facility]) 02/12/2023 Morbid obesity ([facility]) 02/12/2023 PCOS (polycystic ovarian syndrome) 02/12/2023 Seasonal allergic rhinitis 02/12/2023 Resolved Ambulatory Problems Diagnosis Date Noted No Resolved Ambulatory Problems Past Medical History: Diagnosis Date History of Hyperthyroidism ([facility]) Hypothyroidism ([facility]) Insulin resistance Morbid obesity with body mass index (BMI) of 40.0 to 49.9 ([facility]) Pap smear for cervical cancer screening 11/24/2022 [...] SECTION, LOW TRANSVERSE MOLE REMOVAL 12/[address] KNEE SCOPE,CLEAN/DRAIN Left 09/2014 TONSILLECTOMY TUBAL LIGATION [...] nursing note reviewed. Exam conducted with a trimming machine set up operator present. Vitals: Estimated body mass index [...] of: Contreras Mock DO documented in this encounterCenterpoint Medical [id number] History of Present illness Narrative* Virginia Andrea [...] Diagnosis Date Noted Anxiety 02/12/2023 Bronchial asthma ([facility]) 02/12/2023 Depression ([facility]) 02/12/2023 Essential hypertension ([facility]) 02/12/2023 GERD (gastroesophageal reflux disease) 02/12/2023 Insomnia [...] SECTION, LOW TRANSVERSE MOLE REMOVAL 12/[address] KNEE SCOPE,CLEAN/DRAIN Left 09/2014 TONSILLECTOMY TUBAL LIGATION [...] nursing note reviewed. Exam conducted with a trimming machine set up operator present. Vitals: Estimated body mass index [...] of: Contreras Mock DO documented in this encounterCenterpoint Medical [id number] History of Present illness Narrative* Virginia Andrea [...] Diagnosis Date Noted Anxiety 02/12/2023 Bronchial asthma ([facility]) 02/12/2023 Depression ([facility]) 02/12/2023 Essential hypertension ([facility]) 02/12/2023 GERD (gastroesophageal reflux disease) 02/12/2023 Insomnia 02/12/2023 Maternal care for other known or suspected poor growth, unspecified trimester, not applicableor unspecified 05/28/2021 Migraine headache ([facility]) 02/12/2023 Morbid obesity ([facility]) 02/12/2023 PCOS (polycystic ovarian syndrome) 02/12/2023 Seasonal allergic rhinitis 02/12/2023 Resolved Ambulatory Problems Diagnosis Date Noted No Resolved Ambulatory Problems Past Medical History: Diagnosis Date History of Hyperthyroidism ([facility]) Hypothyroidism ([facility]) Insulin resistance Morbid obesity with body mass index (BMI) of 40.0 to 49.9 ([facility]) Pap smear for cervical cancer screening 11/24/2022 HISTORY PAST MEDICAL HISTORY SOCIAL HISTORY Past Medical History: Diagnosis Date History of Hyperthyroidism ([facility]) Hypothyroidism ([facility]) Insulin resistance Morbid obesity with body mass index (BMI) of 40.0 to 49.9 ([facility]) Body mass index (BMI) of 40.0 to [...] SECTION, LOW TRANSVERSE MOLE REMOVAL 12/[address] KNEE SCOPE,CLEAN/DRAIN Left 09/2014 TONSILLECTOMY TUBAL LIGATION [...] nursing note reviewed. Exam conducted with a trimming machine set up operator present. Vitals: Estimated body mass index [...] the following just effexor. Pt to contact rail manager about bp meds. Pt to return for annual- and follow up with medication. Pt denies suicidal and homicidal ideations. Documented by Virginia Andrea LPN on behalf of: Contreras Mock DO documented in this encounterCenterpoint Medical [id number] Miscellaneous Notes* Note - Susie Vasquez RN - 12/21/2023 1:45 PM EDT This note was copied from a baby's chart. Met with mother at infants bedside. States pumping is going well and supply is decreased slightly. Hoping that when she goes home she can have a better routine. Encouraged pumping every 2-3 hours njx82-50 minutes at suction level that is comfortable. [...] Questions answered, encouragement given. documented in this encounterPrem[facility]06-10-2024 Obstetrics Note* Note - Susie Vasquez RN - 12/21/2023 1:45 PM EDT This note was copied from a baby's chart. Met with mother at infants bedside. States pumping is going well and supply is decreased slightly. Hoping that when she goes home she can have a better routine. Encouraged pumping every 2-3 hours kij19-49 minutes at suction level that is comfortable. [...] outpatient info highlighted. Questions answered, encouragement given. [facility]06-09-2024 Miscellaneous Notes* Note - Xenia Lomeli RN - 12/20/2023 7:23 PM EDT This note was copied from a baby's chart. Met with mom at 's bedside. States pumping is going well with stable supply and no pain or breakdown noted. No immediate questions or concerns, encouraged to call out for any other assistance. documented in this encounterPremier Health [facility] Hospital06-09-2024 Obstetrics Note* Note - Xenia Lomeli RN - 12/20/2023 7:23 PM EDT This note was copied from a baby's chart. Met with mom at 's bedside. States pumping is going well with stable supply and no pain or breakdown noted. No immediate questions or concerns, encouraged to call out for any other assistance. [facility]06-07-2024 Miscellaneous Notes* Note - Xenia Lomeli RN - 12/18/2023 11:42 AM EDT This note was copied from a baby's chart. Met with mom at 's bedside. States pumping continues to go well with stable supply and no complaints of pain or breakdown. No immediate questions or concerns, encouraged to call out for any other assistance. documented in this encounterPremier Health [facility]06-07-2024 Obstetrics Note* Note - Xenia Lomeli RN - 12/18/2023 11:42 AM EDT This note was copied from a baby's chart. Met with mom at 's bedside. States pumping continues to go well with stable supply and no complaints of pain or breakdown. No immediate questions or concerns, encouraged to call out for any other assistance. [facility]06-06-2024 Miscellaneous Notes* Note - Susie Vasquez RN - 12/17/2023 10:45 AM EDT This note was copied from a baby's chart. Met with mother at infants bedside. States pumping is going well and supply is stable. No complaints of pain or discomfort. No questions or concerns at this time. Support given. documented in this encounterPremier Health [facility]06-06-2024 Obstetrics Note* Note - Susie Vasquez RN - 12/17/2023 10:45 AM EDT This note was copied from a baby's chart. Met with mother at infants bedside. States pumping is going well and supply is stable. No complaints of pain or discomfort. No questions or concerns at this time. Support given. [facility]06-03-2024 NoteEntered by Sindy Cormier on December 14, 2023 09:59:29 EDT From: Sindy Cormier To: [facility] Sent: 12/14/2023 09:59:29 EDT Subject: Medication Management Submitted: Order:omeprazole (omeprazole 40 mg oral delayed release capsule) 1 cap(s) Oral Daily Qty: 30 cap(s) Days Supply: 30 Refills: 5 Substitutions Allowed Route To Pharmacy - [facility] Signed by Sindy Cormier 12/14/2023 09:59:00 EDT Submitted: Complete:omeprazole (omeprazole 40 mg oral delayed release capsule) Signed by Sindy Cormier 12/14/2023 09:59:00 EDT Not Approved: New Rx to follow omeprazole (Omeprazole 40 MG Oral Capsule Delayed Release) Take 1 capsule by mouth once daily Qty: 30 cap(s) Days Supply: 30 Refills: 0 Substitutions Allowed Route To Pharmacy - [facility] Signed by Sindy Cormier From: [facility] To: Azael LOPEZ, Alfonzo Sumner MD Sent: December 13, 2023 5:45:21 AM CDT Subject: Medication Management Due: December 14, 2023 12:32:47 AM CDT On Hold Pending Signature Dispensed Drug: omeprazole (omeprazole 40 mg oral delayed release capsule), Take 1 capsule by mouthonce daily Quantity: 30 cap(s) Days Supply: 30 Refills: 0 Substitutions Allowed [id number] Miscellaneous Notes* Note - Marely Rabago RN - 12/13/2023 7:45 PM EDT This note was copied from a baby's chart. Met with mother at bedside. States diana supply is stable and she has no needs at this time. Support given. documented in this encounterPremier Health [facility]06-02-2024 Obstetrics Note* Note - Marely Rabago RN - 12/13/2023 7:45 PM EDT This note was copied from a baby's chart. Met with mother at bedside. States diana supply is stable and she has no needs at this time. Support given. [facility]05-31-2024 Miscellaneous Notes* Note - Xenia Lomeli RN - 12/11/2023 11:27 AM EDT This note was copied from a baby's chart. Met with mom at 's bedside. States that pumping is going well with stable supply and denies any pain or breakdown. No immediate questions or concerns, encouraged to call out for any other assistance. documented in this encounterPremier Health [facility]05-31-2024 Obstetrics Note* Note - Xenia Lomeli RN - 12/11/2023 11:27 AM EDT This note was copied from a baby's chart. Met with mom at infant's bedside. States that pumping is going well with stable supply and denies any pain or breakdown. No immediate questions or concerns, encouraged to call out for any other assistance. [facility]05-30-2024 Miscellaneous Notes* Note - Xenia Lomeli [...] little one s mouth. documented in this encounterPremier Health [facility] Hospital05-30-2024 Obstetrics Note* Note - Xenia Lomeli [...] could burn your little one s mouth. [facility]05-28-2024 Miscellaneous Notes* Note - Susie Vasquez RN - 12/08/2023 12:30 PM EDT This note was copied from a baby's chart. Met with mother at infants bedside. No questions or concerns at this time. Encouragement given. documented in this encounterPremier Health [facility]05-28-2024 Obstetrics Note* Note - Susei Vasquez RN - 12/08/2023 12:30 PM EDT This note was copied from a baby's chart. Met with mother at infants bedside. No questions or concerns at this time. Encouragement given. [facility]05-27-2024 Miscellaneous Notes* Note - Karli Patton [...] further needs or assistance. documented in this encounterPremier Health [facility]05-27-2024 Obstetrics Note* Note - Karli Patton [...] out for any further needs or assistance. [facility]05-24-2024 Miscellaneous Notes* Note - Xenia Lomeli RN - 12/04/2023 10:17 AM EDT This note was copied from a baby's chart. Met with mom at 's bedside. States that pumping continues to go well with stable supply and denies pain or breakdown. No immediate questions or concerns, encouraged to call out for any other assistance. documented in this encounterPremier Health [facility]05-24-2024 Obstetrics Note* Note - Xenia Lomeli RN - 12/04/2023 10:17 AM EDT This note was copied from a baby's chart. Met with mom at infant's bedside. States that pumping continues to go well with stable supply and denies pain or breakdown. No immediate questions or concerns, encouraged to call out for any other assistance. [facility]05-23-2024 Miscellaneous Notes* Note - Xenia Lomeli RN - 12/03/2023 1:42 PM EDT This note was copied from a baby's chart. Met with mom at 's bedside. States that pumping is going well with stable supply and denies pain or breakdown. No immediate questions or concerns, encouraged to call out for any other lactationassistance. documented in this encounterPremier Health [facility]05-23-2024 Obstetrics Note* Note - Xenia Lomeli RN - 12/03/2023 1:42 PM EDT This note was copied from a baby's chart. Met with mom at 's bedside. States that pumping is going well with stable supply and denies pain or breakdown. No immediate questions or concerns, encouraged to call out for any other lactationassistance. [facility]05-21-2024 Miscellaneous Notes* Note - Susie Vasquez RN - 12/01/2023 11:45 AM EDT This note was copied from a baby's chart. Met with mother at infants bedside. States she has been pumping but has spaced out pumping sessionsslightly, support given. Supply remains relatively stable. Discussed different pumping schedules and different types of pumps that may help. QUestions answered, encouragement given. documented in this encounterPremier Health [facility]05-21-2024 Obstetrics Note* Note - Susie Vasquez RN - 12/01/2023 11:45 AM EDT This note was copied from a baby's chart. Met with mother at infants bedside. States she has been pumping but has spaced out pumping sessionsslightly, support given. Supply remains relatively stable. Discussed different pumping schedules and different types of pumps that may help. QUestions answered, encouragement given. [facility]05-17-2024 Obstetrics Note* Note - Anjana Howell [...] No questions at this time. Support given. [facility]05-17-2024 Miscellaneous Notes* Note - Anjana Howell [...] this time. Support given. documented in this encounterPremier Health [facility]05-16-2024 Miscellaneous Notes* Note - Xenia Lomeli RN - 11/26/2023 12:35 PM EDT This note was copied from a baby's chart. Met with mom at infant's bedside. States pumping is going well with stable supply and denies pain or breakdown. No immediate questions or concerns, encouraged to call out for any other assistance. documented in this encounterPremier Health [facility]05-16-2024 Obstetrics Note* Note - Xenia Lomeli RN - 11/26/2023 12:35 PM EDT This note was copied from a baby's chart. Met with mom at infant's bedside. States pumping is going well with stable supply and denies pain or breakdown. No immediate questions or concerns, encouraged to call out for any other assistance. [facility]05-14-2024 Miscellaneous Notes* Note - Xenia Lomeli RN - 11/24/2023 3:03 PM EDT This note was copied from a baby's chart. Met with mom at infant's bedside. States pumping continues to go well with stable supply and no breakdown or pain noted. No immediate questions or concerns, encouraged to call out for any other assistance. documented in this encounterPremier Health [facility]05-14-2024 Obstetrics Note* Note - Xenia Lomeli RN - 11/24/2023 3:03 PM EDT This note was copied from a baby's chart. Met with mom at infant's bedside. States pumping continues to go well with stable supply and no breakdown or pain noted. No immediate questions or concerns, encouraged to call out for any other assistance. [facility]05-10-2024 Miscellaneous Notes* Note - Xenia Lomeli RN - 11/20/2023 1:45 PM EDT This note was copied from a baby's chart. Met with mom at 's bedside. States pumping continues to go well with stable supply and no complaints of breakdown or discomfort. No immediate questions or concerns, encouraged to call out for any other assistance. documented in this encounterPrem[facility] Obst[facility]s [facility]* Note - Xenia Lomeli RN - 11/20/2023 1:45 PM EDT This note was copied from a baby's chart. Met with mom at 's bedside. States pumping continues to go well with stable supply and no complaints of breakdown or discomfort. No immediate questions or concerns, encouraged to call out for any other assistance. [facility]05-09-2024 Miscellaneous Notes* Note - Xenia Lomeli RN - 11/19/2023 10:06 AM EDT This note was copied from a baby's chart. Met with mom at infant's bedside. States pumping continues to go well with stable supply and no complaints of breakdown or pain. No immediate questions or concerns, encouraged to call out for any other assistance. documented in this encounterPrem[facility]05-[facility] Obstetrics Note* Note - Xenia Lomeli RN - 11/19/2023 10:06 AM EDT This note was copied from a baby's chart. Met with mom at infant's bedside. States pumping continues to go well with stable supply and no complaints of breakdown or pain. No immediate questions or concerns, encouraged to call out for any other assistance. [facility]05-07-2024 Miscellaneous Notes* Note - Susie Vasquez RN - 11/17/2023 10:15 AM EDT This note was copied from a baby's chart. Met with mother at infants bedside. States pumping is going well and supply is stable. No complaints of pain or discomfort. No questions or concerns at this time. Encouragement given. documented in this encounterPrem[facility]05-07-[facility] Obstetrics Note* Note - Susie Vasquez RN - 11/17/2023 10:15 AM EDT This note was copied from a baby's chart. Met with mother at infants bedside. States pumping is going well and supply is stable. No complaints of pain or discomfort. No questions or concerns at this time. Encouragement given. [facility]05-03-2024 Miscellaneous Notes* Note - Xenia Lomeli RN - 11/13/2023 11:47 AM EDT This note was copied from a baby's chart. Met with mom at 's bedside. States that pumping is going well with adequate supply with no pain or discomfort. No immediate questions or concerns, encouraged to call out for any other lactationassistance. documented in this encounterPrem[facility]05-[facility] Obstetrics Note* Note - Xenia Lomeli RN - 11/13/2023 11:47 AM EDT This note was copied from a baby's chart. Met with mom at 's bedside. States that pumping is going well with adequate supply with no pain or discomfort. No immediate questions or concerns, encouraged to call out for any other lactationassistance. [facility]05-02[facility] Miscellaneous Notes* Note - Xenia Lomeli RN - 11/12/2023 12:56 PM EDT This note was copied from a baby's chart. Met with mom at 's bedside. States that pumping is going well with stable supply and denies pain or discomfort. No immediate questions or concerns, encouraged to call out for any other assistance. documented in this encounterPrem[facility]05-02-[facility] Obstetrics Note* Note - Xenia Lomeli RN - 11/12/2023 12:56 PM EDT This note was copied from a baby's chart. Met with mom at infant's bedside. States that pumping is going well with stable supply and denies pain or discomfort. No immediate questions or concerns, encouraged to call out for any other assistance. [facility]04-30[facility] Miscellaneous Notes* Note - Marely Rabago RN - 11/10/2023 7:40 PM EDT This note was copied from a baby's chart. Met with mother at bedside. States supply is stable and no pain is noted with pumping. Questions answered and support given. documented in this encounterPrem[facility]04-30-[facility] Obstetrics Note* Note - Marely Rabago RN - 11/10/2023 7:40 PM EDT This note was copied from a baby's chart. Met with mother at bedside. States supply is stable and no pain is noted with pumping. Questions answered and support given. [facility]04-29[facility] Miscellaneous Notes* Note - Susie Vasquez [...] muchmilk is actually removed. documented in this encounterPrem[facility]04-29-2024 Obstetrics Note* Note - Susie Vasquez [...] sucking and how muchmilk is actually removed. [facility] [employer] [id number] Miscellaneous Notes* Note - Xenai Lomeli RN - 11/07/2023 12:02 PM EDT [...] for any other assistance. documented in this encounterPrem[facility]04-27-2024 Obstetrics Note* Note - Xenia Lomeli [...] to call out for any other assistance. [facility]04-26[facility] Miscellaneous Notes* Note - Xenia Lomeli RN - 11/06/2023 10:01 AM EDT This note was copied from a baby's chart. Met with mom at infant's bedside. Pumping continues to go well with stable supply and no breakdown or pain. Mom continues to put infant to breast and has been offering bottles as well. Mom states continues to have a sleepy latch, reassured her this remains normal as infant builds stamina andto continue offering as able. No further questions or concerns, encouraged to call out for any other assistance. documented in this encounterPrem[facility]04-26-20[facility] Obstetrics Note* Note - Xenia Lomeli [...] to call out for any other assistance. [facility]04-25[facility] Miscellaneous Notes* Note - Xenia Lomeli [...] for any other lactationassistance. documented in this encounterPrem[facility]04-25-2024 Obstetrics Note* Note - Xenia Lomeli [...] to call out for any other lactationassistance. [facility]04-24-[facility] Miscellaneous Notes* Note - Anjana Howell [...] and all questions answered. documented in this encounterPrem[facility]04-24-2024 Obstetrics Note* Note - Anjana Howell [...] questions. Support given and all questions answered. [facility]04-[facility] Miscellaneous Notes* Note - Karli Patton RN [...] further needs or assistance. documented in this encounterPrem[facility]04-23-2024 Obstetrics Note* Note - Karli Patton [...] out for any further needs or assistance. [employer] [id number] Miscellaneous Notes* Note - Marely Rabago RN - 11/01/2023 8:12 PM EDT This note was copied from a baby's chart. Met with mother at bedside. States pumping is going well and supply is stable. No pain or issues atthis time. Encouraged her to call out for LC with any questions. Support given. documented in this encounterPrem[facility]04-21-2024 Obstetrics Note* Note - Marely Rabago RN - 11/01/2023 8:12 PM EDT This note was copied from a baby's chart. Met with mother at bedside. States pumping is going well and supply is stable. No pain or issues atthis time. Encouraged her to call out for LC with any questions. Support given. [facility] Miscellaneous Notes* Note - Xenia Lomeli [...] non-nutritive is stable with care or during Dajt-ld-Njqj care Begins to transfer milk at breast Interventions Mother Monitors hunger cues Monitors time of feeding and tolerance during Coordinates pumping with feedings Continues to pump after each feeding RN/LC Continues to encourage mxai-oe-wkqa daily and document Continue to assess milk [...] greater give no supplement documented in this encounterProMedica Health [id number] Obstetrics Note* Note - Xenia Lomeli RN [...] non-nutritive is stable with care or during Opxf-ej-Vclm care Begins to transfer milk at breast Interventions Mother Monitors hunger cues Monitors time of feeding and tolerance during Coordinates pumping with feedings Continues to pump after each feeding RN/LC Continues to encourage nvad-ax-vyad daily and document Continue to assess milk [...] 15 minutes or greater give no supplement [facility]04-18[facility] Miscellaneous Notes* Note - Xenia Lomeli RN [...] from this as well. documented in this encounterPrem[facility]04-18-2024 Obstetrics Note* Note - Xenia Lomeli [...] infection can develop from this as well. [facility]04-16-2024 Miscellaneous Notes* Note - Xneia Lomeli RN - 10/27/2023 11:37 AM EDT [...] for any other assistance. documented in this encounterPrem[facility]04-16-2024 Obstetrics Note* Note - Xenia Lomeli [...] to call out for any other assistance. [facility]04-11-20[facility] Miscellaneous Notes* Note - Susie Vasquez [...] in milk production. Power pumping in the air valve repairer hours is very effective, because hormone levels [...] Questions answered, encouragement given. documented in this encounterPrem[facility]04-11-2024 Obstetrics Note* Note - Susie Vasquez [...] in milk production. Power pumping in the air valve repairer hours is very effective, because hormone levels [...] to try cookies. Questions answered, encouragement given. [facility]04-09-2024 Miscellaneous Notes* Note - Susie Vasquez [...] Questions answered, encouragement given. documented in this encounterPrem[facility]04-09-2024 Obstetrics Note* Note - Susie Vasquez [...] use at bedside. Questions answered, encouragement given. [facility]04-05-20[facility] Miscellaneous Notes* Note - Xenia Lomeli [...] for any other assistance. documented in this encounterPrem[facility]04-05-2024 Obstetrics Note* Note - Xenia Lomeli [...] to call out for any other assistance. [facility]04-04-20[facility] Miscellaneous Notes* Note - Kathy Howell RN - 10/15/2023 10:50 AM EDT This note was copied from a baby's chart. Met with mother at infant's bedside. States pumping is going well and milk supply is increasing. Encouraged to reach out to with questions or concerns. Support given. Step 1: stable and able to tolerate Ljmb-fd-Dajq care Interventions Baby No weight or gestational age limitations, following IVH protocol Follow Smyx-kg-Addo Care Policy Length should be done as tolerated by the infant. At least once daily, increase as tolerated. Mother Put Svov-cn-Gejo at least once daily, when possible documented in this encounterPrem[facility]04-04-2024 Obstetrics Note* Note - Kathy Howell RN - 10/15/2023 10:50 AM EDT This note was copied from a baby's chart. Met with mother at 's bedside. States pumping is going well and milk supply is increasing. Encouraged to reach out to with questions or concerns. Support given. Step 1: stable and able to tolerate Zzti-bz-Hkua care Interventions Baby No weight or gestational age limitations, following IVH protocol Follow Uzzl-au-Aqgh Care Policy Length should be done as tolerated by the infant. At least once daily, increase as tolerated. Mother Put Vpjb-xc-Qdjb at least once daily, when possible [facility]04-04[facility] History of Present illness Narrative* Oma Novak APRN-MASON - 10/15/2023 9:00 AM EDT Video Visit via Real-time Synchronous Audiovisual Provider Location: [facility] [address] [place] [phone] Patient Location: Other Patient Location Aquarist: None Video Visit Consent Statement: I discussed [...] that there are some limitations compared to qvrj-ss-umeo evaluations. We elected to proceed. Subjective: Sisi Mora is a 28 y.o. is seen today via televisit. She is 6 days post- from a repeatc/s with TL at 30w1d. Her was complicated [...] as expected Pre-eclamptic warnings reviewed. Call provider electrical installation supervisor for headache unresolved with tylenol, visualchange, epigastic pain or significant change in swelling in her hands feet or face. Let the office know if BP readings consistently over 140/90 (either number). Call provider electrical installation supervisor for BP greater than 160/110 (either number). Hypotensive warnings reviewed - call if experiencing dizziness, weakness or fainting. CARLI Denny APRN-CNP 10/15/23 0922 documented in this encounterUniversity Hospitals St. John Medical CenterAnchor Bay Technologies [facility] Health [id number] Miscellaneous Notes* Note - Parul Rizvi RN [...] out with any needs. documented in this encounterPrem[facility]04-03-2024 Obstetrics Note* Note - Parul Rizvi [...] Encouraged to reach out with any needs. [facility]02-19-[facility] History of Present illness Narrative* Yanelis Garrido MD - 08/31/2023 5:05 PM EST MFM lab results This patient was diagnosed with [...] conditions (Bartter type 2 & cystic fibrosis [id number]) Our genetic counselor reviewed the results with [...] patient's care. Yanelis Garrido MD Professor, [facility] Maternal Medicine documented in this encounterPrem[facility]02-08-2024 History of Present illness Narrative* CRISSY [...] or concerns come up. documented in this encounterPremier Health [facility]02-08-2024 History of Present illness Narrative* CRISSY Acevedo - 08/20/2023 9:04 AM ESTSummary: Carrier Screening Results Called and left VM for Sisi requesting a call back regarding carrier screening results. documented in this encounterPremier [facility]02-06-2024 History of Present illness Narrative* Virginiatommy Andrea LPN - 08/18/2023 10:20 AM EST [...] trimester, not applicableor unspecified 05/28/2021 Migraine headache ([facility]) 02/12/2023 Morbid obesity ([facility]) 02/12/2023 PCOS (polycystic ovarian syndrome) 02/12/2023 Seasonal allergic rhinitis 02/12/2023 Resolved Ambulatory Problems Diagnosis Date Noted No Resolved Ambulatory Problems Past Medical History: Diagnosis Date History of Hyperthyroidism ([facility]) Hypothyroidism ([facility]) Insulin resistance Morbid obesity with body mass index (BMI) of 40.0 to 49.9 ([facility]) Pap smear for cervical cancer screening 11/24/2022 [...] SECTION, LOW TRANSVERSE MOLE REMOVAL 12/[address] KNEE SCOPE,CLEAN/DRAIN Left 09/2014 TONSILLECTOMY TUMOR REMOVAL [...] nursing note reviewed. Exam conducted with a trimming machine set up operator present. Vitals: Estimated body mass index is 44.19 kg/m as calculated from the following: Height as of 01/20/23: 5' 7 . Weight as of this encounter: 282 lb 1.9 oz. BP: 122/80 Patient's last menstrual period was 03/12/2023. Assessment/Plan Encounter Diagnoses Name Primary? Second trimester Diabetes mellitus screening Thyroid disease affecting ([facility]) Patient presents today for a routine obstetrics appointment. Patient is currently 22w5d with a Estimated Date of Delivery: 12/17/23. Pt doing well- reviewed recent [facility] appt. Pt to return to [facility] in 2 weeks. Pt to return in 4 weeks for scheduled OB appt. Documented by Virginia Andrea LPN on behalf of: Contreras Mock DO documented in this encounterCenterpoint Medical [id number] Miscellaneous Notes* Telephone Encounter - Althea Olson LPN - 08/17/2023 4:04 PM EST Patient returned call states she is being seen somewhere else. documented in this encounterPrem[facility]02-05-2024 Telephone encounter Note* Telephone Encounter - Althea Olson LPN - 08/17/2023 4:04 PM EST Patient returned call states she is being seen somewhere else. [facility]02-05-20[facility] Miscellaneous Notes* Telephone Encounter - Althea Olson LPN - 08/17/2023 3:17 PM EST Please call us back to get rescheduled for your jordan. documented in this [facility]02-05-2024 Telephone encounter Note* Telephone Encounter - Althea Olson LPN - 08/17/2023 3:17 PM EST Please call us back to get rescheduled for your jordan. [facility]01-24-2024 Miscellaneous Notes* Telephone Encounter - Stacy Justin RN - 08/05/2023 9:59 AM EST Left message for patient that an additional lab has been ordered that needs to be drawn at a [facility] lab only. Call back phone number given if patient has questions. * Telephone Encounter - Stacy Justin RN - 08/05/2023 9:59 AM EST Patient returned call to [facility] and will have additional lab done at a [facility] lab. Patient also hadconcerns regarding future Doppler US being done here at [facility]. Patient will do initial Doppler here and may need to do Clay due to son having surgery in [place]. documented in this encounterPrem[facility]01-24-2024 Telephone encounter Note* Telephone Encounter - Stacy Justin RN - 08/05/2023 9:59 AM EST Left message for patient that an additional lab has been ordered that needs to be drawn at a [facility] lab only. Call back phone number given if patient has questions. [facility]01[facility] Telephone encounter Note* Telephone Encounter - Stacy Justin RN - 08/05/2023 9:59 AM EST Patient returned call to [facility] and will have additional lab done at a [facility] lab. Patient also hadconcerns regarding future Doppler US being done here at [facility]. Patient will do initial Doppler here and may need to do Clay due to son having surgery in [place]. [facility]01-[facility] History of Present illness Narrative* Yanelis [...] lab is drawn at 1 of the [facility] locations because it seems that result availability and of test and correctly performed test is more likely whenordered through our Internal lab. I will ask our nursing staff to contact the patient and relay instructions. Yanelis Garrido MD Professor, [facility] Maternal Medicine documented in this encounterPremier Health [facility]01-23-2024 History of Present illness Narrative* Carla Guerra CMA - 08/04/2023 11:34 AM EST Lab drawn for cell-free DNA testing. Patient tolerated well. (Lab came to draw ) documented in this encounterPremier Health [facility]01-23-2024 Miscellaneous Notes* Telephone Encounter - Leslie Souza - 08/04/2023 11:12 AM EST Patient refused to schedule umb doppler in 3 weeks. Son is having surgery and she will call at a later time to schedule. documented in this encounterPremier Health [facility]01-23-2024 Telephone encounter Note* Telephone Encounter - Leslie Andrewsjeanette - 08/04/2023 11:12 AM EST Patient refused to schedule umb doppler in 3 weeks. Son is having surgery and she will call at a later time to schedule. [facility]01-23-[facility] History of Present illness Narrative* Carla [...] was 45 minutes. 34 minutes were direct jldo-jr-wptj for counseling and coordination of care during visits itself. An additional 4 minutes or for same day preparation to see the patient. Another 7 minutes were needed were needed to prepare report and or to perform other duties to complete visit. Thank you for sending this patient. Yanelis Garrido MD Maternal Medicine Professor, [facility] [phone]- Office [phone]- Personal Cell Phone Office Note: Chronic hypertension [...] primary OB provider team. documented in this [facility]Fair[facility] SystemEvaluation note* Diagnosis Second trimester [...] episode of care documented in this encounter [facility] HealthcareEvaluation note* Diagnosis Encounter for weight management documented in this encounter [facility] HealthcareEvaluation note* Diagnosis Psychological factors affecting medical condition- Primary Psychic factors associated with diseases classified elsewhere Obesity, unspecified class, unspecified obesity type, unspecified whether serious comorbidity present documented in this encounter [facility]* Diagnosis IUGR (intrauterine growth restriction) affecting care of mother, second trimester, not applicable or unspecified fetus- Primary History of delivery, currently with history of pre-term labor 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 trimester Hx of preeclampsia, prior , currently , second trimester documented [facility]* Diagnosis IUGR (intrauterine growth restriction) affecting care of mother, second trimester, not applicable or unspecified fetus- Primary History of delivery, currently with history of pre-term labor 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 trimester Chronic hypertension affecting documented [facility]* Diagnosis IUGR (intrauterine growth restriction) affecting care of mother, second trimester, not applicable or unspecified fetus- Primary Maternal care for other known or suspected poor growth, unspecified trimester, not applicableor unspecified documented in this encounter [facility]* Diagnosis IUGR (intrauterine growth restriction) affecting care of mother, second trimester, not applicable or unspecified fetus Chronic hypertension affecting Hx of preeclampsia, prior , currently , second trimester documented [facility]* Diagnosis IUGR (intrauterine growth restriction) affecting care of mother, second trimester, not applicable or unspecified fetus- Primary Chronic hypertension affecting Hx of preeclampsia, prior , currently , second trimester documented [facility] encounter [facility]* Diagnosis Pre-eclampsia superimposed on chronic hypertension, delivered- Primary History of Other postprocedural status documented [facility] encounter [facility]* Diagnosis Onset Date Resolution Status Admit Date Fatigue acuteMarch 2024 8:52amHypertensionacuteMarch 2024 8:52am HypothyroidismacuteMarch 2024 8:52amObesity, morbid, BMI 40.0-49.9acute October 03, 2024 8:52amThyroid noduleacuteMarch 2024 8:52am [facility] Work Phone: Evaluation note* Diagnosis Pelvic pain in female Unspecified symptom associated with female genital organs Hx of ovarian cyst PCOS (polycystic ovarian syndrome) Polycystic ovaries Insulin resistance Other abnormal glucose documented in this encounter [facility] HealthcareInstructionsNot on filedocumented in this encounterProMedica Health SystemInstructionsNot on filedocumented in this encounterProMedica Health SystemInstructionsNot on filedocumented in this encounterProMedisc Health SystemInstructionsNot on filedocumented in this encounterProMedisc Health System InstructionsNot on filedocumented in this encounterProHighlands Medical Center [facility] System InstructionsNot on filedocumented in this encounterProGerman Hospital System InstructionsNot on filedocumented in this encounterProGerman Hospital SystemReason for referral (narrative)No reason for referral information availableSouthern [facility] Medical Center Work Phone: Reason for visit Narrative* Consultation (Routine) - Pending ReviewSpecialtyDiagnoses / ProceduresReferred By ContactReferred To ContactObstetrics and Gynecology Diagnoses Pre-eclampsia, severe, with delivery nAdrew Emery MD [address], [facility] [id number] [place] [address] Oma Novak, CONTRACTS SPECIALIST-[facility] [address] [place] [address] Referral IDStatusReasonStart DateExpiration DateVisits RequestedVisits [id number] Review/ [facility] Summary Purpose Family History No Family History Records Found Relationship Condition Age at Onset Recorded Date/T petra father Heart disease Unknown Myocardial infarctionUnknownHypertensionUnknownCerebrovascular accident (CVA) UnknownmotherCerebrovascular accident (CVA)Unknown Advance Directives No Advanced Directives Records Found Date ActivatedDate InactivatedComments09/27/2023 5:00 PM10/12/2023 7:19 PMDate ActivatedDate IfoknuxjevvMuwwncyh54/16/2021 11:19 AM06/05/2021 10:50 PMCode StatusDate ActivatedDate InactivatedCommentsFull Code05/28/2021 11:19 AM 06/05/2021 10:50 PMCode StatusDate ActivatedDate InactivatedCommentsFull Code 05/28/2021 11:19 AM06/05/2021 10:50 PMCode StatusDate ActivatedDate Inactivated CommentsFull Code09/27/2023 5:00 PM10/12/2023 7:19 PMCode StatusDate ActivatedDate InactivatedCommentsFull Code05/28/2021 11:19 AM06/05/2021 10:50 PMCode Status Date ActivatedDate InactivatedCommentsFull Code09/27/2023 5:00 PM10/12/2023 7:19 PM Code StatusDate ActivatedDate InactivatedCommentsFull Code05/28/2021 11:19 AM 06/05/2021 10:50 PM Advance Directive Response Recorded Date/ Time Advance Directives No September 30, 025 8:47am Reason for Referral SpecialtyDiagnoses / ProceduresReferred By ContactReferred To ContactMaternal and Medicine Diagnoses IUGR (intrauterine growth restriction) affecting care of mother, second trimester, not applicable or unspecified fetus History of delivery, currently 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 trimester Chronic hypertension affecting Procedures US MFM with or without consult Yanelis Garrido MD [address] [place] [address] [facility] Maternal Med [address] [place] [address] Referral IDStatusReasonStart DateExpiration DateVisits RequestedVisits [id number] / Chief Complaint and Reason for Visit Chief [...] section and content) DATE CREATED AUTHOR 01/05/2018 [facility] DATE CREATED AUTHOR AUTHOR'S ORGANIZ ATION 11/25/2022 [facility] DATE CREATED AUTHOR AUTHOR'S ORGANIZ ATION 09/25/2023 [facility] DATE CREATED AUTHOR AUTHOR'S ORGANIZ ATION 10/28/2023 [facility] DATE CREATED AUTHOR AUTHOR'S ORGANIZ ATION 03/10/2024 [facility] DATE CREATED AUTHOR AUTHOR'S ORGANIZ ATION 10/11/2024 [facility] DATE CREATED AUTHOR AUTHOR'S ORGANIZ ATION 01/19/2025 [facility] DATE CREATED AUTHOR AUTHOR'S ORGANIZ ATION 01/23/2025 [facility] Reason for Visit (unrecogniz ed section and content) ReasonCommentsRoutine VisitReasonCommentsWell Women VisitPostpartum depression follow upReasonCommentsWeight ManagementReasonCommentspost depressionReasonCommentsencounter for weight managementReasonCommentsObesity ReasonOnset KkvtSanaexvmEinigshyfaw74/23/2024ReasonCommentsHypertensionReason Onset DateCommentsOutgoing Call4ReasonCommentsER Follow-upPt present today for an ER f/up visit. Pt was seen at [facility] on 01/14/2025 for pelvic pain h/o cysts. Care Teams (unrecognized sec tion and content) Team MemberRelationshipSpecialtyStart DateEnd Date Alfonzo Guerra MD [address] [place] [address] PCP - GeneralFamily Medicine12/22/22Team MemberRelationshipSpecialtyStart DateEnd Date Alfonzo Guerra MD [address] [place] [address] PCP - GeneralFamily Medicine12/22/22Team MemberRelationshipSpecialtyStart DateEnd Date Alfonzo Guerra MD [facility] [place] [address] PCP - GeneralFamily Medicine12/22/22Team MemberRelationshipSpecialtyStart DateEnd Date Alfonzo Guerra MD [address] [facility] [place] [address] PCP - GeneralFamily Medicine12/22/22Team MemberRelationshipSpecialtyStart DateEnd Date Alfonzo Guerra MD [address] [facility] [place] [address] PCP - GeneralFamily Medicine12/22/22Team MemberRelationshipSpecialtyStart DateEnd Date Alfonzo Guerra MD [address] [place] [address] PCP - GeneralFamily Medicine12/22/22Team MemberRelationshipSpecialtyStart DateEnd Date Alfonzo Guerra MD [facility] [place] [address] PCP - GeneralFamily Medicine12/22/22Team MemberRelationshipSpecialtyStart DateEnd Date Alfonzo Guerra MD [address] [facility] [address] PCP - GeneralFamily Medicine04/05/20Team MemberRelationshipSpecialtyStart DateEnd Date Alfonzo Guerra MD [address] [place] [address] PCP - GeneralFamily Medicine04/05/20Team MemberRelationshipSpecialtyStart DateEnd Date Alfonzo Guerra MD [address] [place] [address] PCP - GeneralFamily Medicine04/05/20Team MemberRelationshipSpecialtyStart DateEnd Date Alfonzo Guerra MD [address] [place] [address] PCP - GeneralFamily Medicine04/05/20Team MemberRelationshipSpecialtyStart DateEnd Date Alfonzo Guerra MD [address] [place] [address] PCP - GeneralFamily Medicine04/05/20Team MemberRelationshipSpecialtyStart DateEnd Date Alfonzo Guerra MD [address] [place] [address] PCP - GeneralFamily Medicine04/05/20Team MemberRelationshipSpecialtyStart DateEnd Date Alfonzo Guerra MD [address] [place] [address] PCP - GeneralFamily Medicine04/05/20Team MemberRelationshipSpecialtyStart DateEnd Date Alfonzo Guerra MD [address] [place] [address] PCP - GeneralFamily Medicine04/05/20 Team Status: Active Member Role Status Dates Veronica Singh APRN DIRECTOR OF AVIATION-C Primary Care Provider Active Team Status: Inactive Member Role Status Dates Veronica Singh APRN DIRECTOR OF AVIATIONSusannaC Primary Care Provider, Attending Provider Active Start: October 03, 2024 End: October 03, 2024 Team Status: Inactive Member Role Status Dates Veronica Singh APRN DIRECTOR OF AVIATIONFernie Primary Care Provider, Attending Provider Active Start: November 04, 2024 End: November 04, 2024 Team Status: Inactive Member Role Status Dates Veronica Singh APRN DIRECTOR OF AVIATION-C Primary Care Provider, Attending Provider Active Start: December 21, 2024 End: December 21, 2024 Team Status: Inactive Member Role Status Dates Veronica Singh APRN DIRECTOR OF AVIATION-C Primary Care Provider Active Start: November 04, 2024 End: November 04, 2024Veronica Singh APRN DIRECTOR OF AVIATION-CAttending ProviderActive Start: November 04, 2024 End: November 04, 2024 Team Status: Inactive Member Role Status Dates Veronica Singh APRN DIRECTOR OF AVIATION-C Primary Care Provider Active Start: December 21, 2024 End: December 21, 2024Veronica Singh APRN DIRECTOR OF AVIATION-CAttending ProviderActive Start: December 21, 2024 End: December 21, 2024 Team Status: Inactive Member Role Status Dates Veronica Singh APRN DIRECTOR OF AVIATION-C Primary Care Provider Active Start: January 03, 2025 End: January 03, 2025Veronica Singh APRN DIRECTOR OF AVIATION-CAttending ProviderActive Start: January 03, 2025 End: January 03, 2025 Team Status: Active Member Role Status Dates Veronica Singh APRN DIRECTOR OF AVIATION-C Primary Care Provider Active Start: January 14, 2025 Migue Talavera MDAttending ProviderActiveStart: January 14, 2025 Team Status: Inactive Member Role Status Dates Migue Talavera MD Attending Provider Active St art: January 14, 2025 End: January 14, 2025Team MemberRelationshipSpecialtyStart DateEnd Date Alfonzo Guerra MD [address] [place] [address] [facility]12[facility]22 Source Comments (unrecognize d section and content) In the event this informatio n is protected by the Federal Confidentiality of Alcohol and Drug Abuse Patient Records regulations: The Federal rules restrict any use of the information to criminally investigate or prosecute any alcohol or drug abuse patient.[facility] Goals (unrecognized section and content) Goals may [...] BE BASED ON THE PRIMARY CLINICAL RECORDS. [facility] [email or web address] [facility]. provides no warranty or guarantee of the accuracy or completeness of information in this document.
[2025-05-05 13:42] LABS: Alanine Aminotransferase 39 U/L (14-59); Albumin Globulin Ratio 1.0; Albumin Level 3.9 g/dL (3.4-5.0); Alkaline Phosphatase 63 U/L (46-116); Anion Gap 17.0; Aspartate Amino Transferase 27 U/L (15-37); Blood Urea Nitrogen 13.0 mg/dL (7.0-18.0); Calcium 9.1 mg/dL (8.5-10.1); Carbon Dioxide 25.8 mmol/L (21.0-32.0); Chloride 102 mmol/L (98-107); Estimated GFR (African America >60 (>=60 mL/min/1.73m^2); Estimated GFR (Non-African Ame >60 (>=60 mL/min/1.73m^2); Globulin 3.9 g/dL; Glucose 85 mg/dL (74-106); Potassium 3.8 mmol/L (3.5-5.1); Sodium 141 mmol/L (136-145); Total Protein 7.8 g/dL (6.4-8.2)
== END 2025-05-05 11:22 | disposition home or self-care (01) ==
LOC: LAB 11:23
PROVIDERS: PCP Nurse Practitioner Family; Visit Provider Obstetrics & Gynecology
DX: R73.03 Prediabetes (principal); Z68.42 Body mass index [BMI] 45.0-49.9, adult; Z76.89 Persons encountering health services in other specified circumstances
CPT/HCPCS: 36415; 80053

== ENCOUNTER 2025-05-08 20:05 | Outpatient (REF) | payer BC, SELFPAY ==
--- OUTSIDE RECORDS SUMMARY | 2025-05-08 11:00 | XMS_ITS | Encounter Summary ---
Author Organization [facility] Address [address] [place] [address] Care Team Providers Care Party Plan Demonstrator Name Role Phone Alfonzo Addison MD Primary Care Provider Reason for Visit * ReasonCommentsWell Women Visit Encounter Details DateTypeDepartmentCare Team (Latest Contact Info)Rvzkgdxpvxi25/27/2025 11:00 AM EDTOffice Visit [facility] [address] [place] [address] Contreras Mock DO [address] [place], [facility]11 Well woman exam with routine gynecological exam; Prediabetes; Encounter for weight management; PCOS (polycystic ovarian syndrome); Insulin resistance Social History Tobacco UseTypesPacks/DayYears UsedDateSmoking Tobacco: NeverAlcohol UseStandard Drinks/WeekCommentsNot Currently0 (1 standard drink = 0.6 oz pure alcohol) occasionalCommentsNoSex and Gender InformationValueDate RecordedSex Assigned at OdzkeQgvyfm43/06/2024 2:16 PM EDTLegal OrzHqvyiz28/15/2023 6:47 PM EDTGender LmzxxuucUgxkvh78/06/2024 2:16 PM EDTSexual OrientationStraight 03/18/2024 2:16 PM EDTdocumented as of this encounter Last Filed Vital Signs Vital SignReadingTime TakenCommentsBlood Setrjuzg082/8605/08/2025 11:15 AM EDT Pulse--Temperature--Respiratory Rate--Oxygen Saturation--Inhaled Oxygen Concentration--Dhznce011 kg (289 lb)05/08/2025 11:15 AM EDTHeight--Body Mass Index45.2607 9:19 AM EDTdocumented in this encounter Plan of Treatment DateTypeDepartmentCare Team (Latest Contact Info)Kmjqjohtxmu43/03/2026 10:00 AM ESTProcedure Visit [facility] [address] [place] [phone] Contreras Mock DO [address] [place] [address] NameTypePriorityAssociated DiagnosesOrder SchedulePap SmearPathology and CytologyRoutine Well woman exam with routine gynecological exam Ordered: 05/08/2025documented as of this encounter Goals GoalPatient Goal TypeAssociated ProblemsRecent ProgressPatient-Stated?Author Reminders Care PlanOB RemindersNoOpen Scheduling, Backgrounddocumented as of this encounter Visit Diagnoses Diagnosis Well woman exam with routine gynecological exam Routine gynecological examination Prediabetes Other abnormal glucose Encounter for weight management PCOS (polycystic ovarian syndrome) Polycystic ovaries Insulin resistance Other abnormal glucose documented in this encounter Additional Health Concerns Active ProblemsNoted DateDiagnosed DateOB Ttngxmuno55/30/2023 documented as of this encounter Care Teams Team MemberRelationshipSpecialtyStart DateEnd Date Alfonzo Addison MD [address] [place] [address] PCP - GeneralFamily Medicine12/22/22documented as of this encounter
--- OUTSIDE RECORDS SUMMARY | 2025-05-08 20:10 | XMS_ITS | Clinical Summary ---
Author Organization [employer] [facility] tem Address [id number] [address] [place] [address] Care Team Providers Care Home Demonstration Agent Name Role Phone Alfonzo Addison MD Primary Care Provider Allergies Active AllergyReactionsCriticalityNoted DcrvLuzcedykLcdzjgmkvqwrSoeez47/19/2014 Dye03/24/2018 Sara contrast WkqwizkiwAqplm99/19/6735NmnqwlatNawti35/19/2014 Medications MedicationSigDispense QuantityRefillsLast FilledStart DateEnd DateStatus metoclopramide [...] Active Problems ProblemNoted DateDiagnosed DatePre-eclampsia, severe, with /17/2024Hx of preeclampsia, prior , currently , second qsedozqij00/23/2024 IUGR (intrauterine growth restriction) affecting care of mother, second trimester, not applicable or unspecified fetus08/04/2023History of delivery, currently lbiplqgu39/08/2023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 yoweoenmc93/08/2023Maternal care for other known or suspected poor growth, unspecified trimester, not applicableor rtbyqekzwqw71/17/2021regnancy affected by growth yvqynvkyqzm48/16/2021isease of thyroid gland Overview (03/01/2021): HYPERTHYROID Essential [...] file03/21/2020Frequency of Binge DrinkingNot on file03/21/2020PHQ-2AnswerDate RecordedTotal Lewrh296 ChildcareAnswerDate FpzbpxrxNgqapuqstNsunczs82/12/2019EmploymentAnswerDate QjndnbksQikwcgmyxvGywwklu95/12/2019Hunger ScreeningAnswerDate RecordedWithin the past 12 months we worried whether our food would run out before we got money to buy more.Never True08/04/2023Within the past 12 months the food we bought just didn't last and we didn't have money to get more.Never True4Purpose - LifeAnswerDate RecordedPurpose and direction in jxfbCiivget14/11/2021 CommentsNoSex and Gender InformationValueDate RecordedSex Assigned at Zeylro0404/22/2021 10:12 AM EDTLegal PjgLtqhia21/06/2015 12:07 PM EDTGender IyuszwvuQfesyk24/11/2021 10:12 AM EDTSexual SfszcoltjuzZiyptort66/11/2021 10:12 AM EDT Last Filed Vital Signs Vital SignReadingTime TakenCommentsBlood Azftvogc618/8104 12:00 PM EDT Tgrnu6982 12:00 PM RCPDwrvdhotbgc49.7 ??C (98.1 ??F)10/20/2023 10:49 AM EDTRespiratory Ykti051510/20/2023 10:49 AM EDTOxygen Fpjuchaedl66%10/10/2023 11:00 PM EDTInhaled Oxygen Concentration--Oerooj268.6 kg (279 lb 1.6 oz)10/12/2023 5:17 AM LDPCavkcm255.2 cm (5' 7 )09/27/2023 4:29 PM EDTBody Mass Index43.71 09/27/2023 4:29 PM EDT Plan of Treatment Health MaintenanceDue DateLast DoneCommentsDepression Vzgntswoo19/12/2009dult BMI Mavokizdu56/01/452488/07/2023Tobacco Zpedvgehx95/OVID-19 Vaccine ( season)/04/2022, 07/01/2021Influenza Vaccine /, 06/05/2021, 05/22/2009Pap Smear DTaP,Tdap and Td Vaccines (7 - Td or Tdap)/, 09/23/2018, 10/28/2001, Additional history exists Medical Devices Not on file Insurance Advance Directives * Full Code (Latest Code Status on File) Date ActivatedDate InactivatedComments09/27/2023 5:00 PM10/12/2023 7:19 PM * Full Code Date ActivatedDate EaivbricrlfUirnbjoa86/16/2021 11:19 AM06/05/2021 10:50 PM Care Teams Team MemberRelationshipSpecialtyStart DateEnd Date Alfonzo Addison MD [facility] [place] [id number] PCP - GeneralFamily Medicine04/05/20
--- OUTSIDE RECORDS SUMMARY | 2025-05-08 20:10 | XMS_ITS | Encounter Summary ---
Author Organization [facility] Address [address] [facility] [place] [address] Care Team Providers Care Boiler Fireman Name Role Phone Alfonzo Addison MD Primary Care Provider [phone] Encounter Details DateTypeDepartmentCare Team (Latest Contact Info)Twasrziwwwn80/27/2025amboo flowsheet NITESH MEANS [address] [place] [address] Contreras Mock DO [address] [place], [place] [id number] Social History Tobacco UseTypesPacks/DayYears UsedDateSmoking Tobacco: NeverAlcohol UseStandard Drinks/WeekCommentsNot Currently0 (1 standard drink = 0.6 oz pure alcohol) occasionalCommentsNoSex and Gender InformationValueDate RecordedSex Assigned at NazzjGuslol93/06/2024 2:16 PM EDTLegal UseIdypsd16/15/2023 6:47 PM EDTGender TcxxtkwkWshrcu80/06/2024 2:16 PM EDTSexual OrientationStraight 03/18/2024 2:16 PM EDTdocumented as of this encounter Plan of Treatment DateTypeDepartmentCare Team (Latest Contact Info)Wkidyvgcbpn49/03/2026 10:00 AM ESTProcedure Visit NITESH WATKINSN [address] [place] [phone] Contreras Mock, DO [address] [place] [address] documented as of this encounter Goals GoalPatient Goal TypeAssociated ProblemsRecent ProgressPatient-Stated?Author Reminders Care PlanOB RemindersNoOpen Scheduling, Backgrounddocumented as of this encounter Visit Diagnoses Not on filedocumented in this encounter Additional Health Concerns Active ProblemsNoted DateDiagnosed DateOB Zdwfojfes07/30/2023 documented as of this encounter Care Teams Team MemberRelationshipSpecialtyStart DateEnd Date Alfonzo Addison MD [facility] [place] [address] PCP - GeneralFamily Medicine12/22/22documented as of this encounter
--- OUTSIDE RECORDS SUMMARY | 2025-05-08 20:10 | XMS_ITS | Clinical Summary ---
Author Organization [facility] Address [address], [address] [place] [address] Care Team Providers Care Commercial Lines Insurance Agent Name Role Phone Alfonzo Addison MD Primary Care Provider [phone] Allergies Active AllergyReactionsCriticalityNoted HyjpShzvijpvXiftkzusipjiJoqms25/12/2023 Ketorolac JbxsqovkgcteTpdll42/12/2589Krjqc68/12/2018 Sara contrast AijmftnpRsgrp15/12/2023 Medications MedicationSigDispense QuantityRefillsLast FilledStart DateEnd DateStatus escitalopram (LEXAPRO) 5 MG tablet Take 1 tablet by mouth daily07/07/2023ctive labetalol (NORMODYNE) 300 MG tablet TAKE 1 TABLET BY MOUTH THREE TIMES DAILY (MORNING, EVENING AND BEDTIME)Active levothyroxine (SYNTHROID) 100 MCG tablet Take 1 tablet by mouth every wxljpvv2708/04/2023ctive omeprazole (PRILOSEC) 40 MG delayed release capsule Take 1 capsule by mouth dailyActive ondansetron (ZOFRAN-ODT) 4 MG disintegrating tablet 06/01/2023ctive ondansetron (ZOFRAN) 4 MG tablet TAKE 1 TABLET BY MOUTH TWICE DAILY NEEDED FOR YQOSGX6105/11/2023ctive Vit-Fe Fumarate-FA ( VITAMINS PO) Take 1 tablet by mouth DailyActive aspirin 81 MG EC tablet Take 1 tablet by mouth dailyActive folic jdux-psxomuudag-kpjvhimzyxrqbye (FOLTX) 2.5-25-1 MG TABS tablet Take 1 tablet by mouth dailyActive Social History Tobacco UseTypesPacks/DayYears UsedDateSmoking Tobacco: NeverSmokeless Tobacco: Never Tobacco Cessation:Counseling Given: No Alcohol UseStandard Drinks/WeekCommentsNot Currently0 (1 standard drink = 0.6 oz pure alcohol)CommentsNoSex and Gender InformationValueDate RecordedSex Assigned at BirthNot on fileLegal KpjQsupdi74/08/2023 9:22 AM EDTGender Identity Not on fileSexual OrientationNot on file Last Filed Vital Signs Vital SignReadingTime TakenCommentsBlood Rqsoyhek998/8809/23/2023 1:30 PM EDT Ggfmz097209/23/2023 1:30 PM RCAMvcmcnzucib13.7 ??C (98.1 ??F)09/23/2023 1:30 PM EDTRespiratory Dguv548409/23/2023 1:30 PM EDTOxygen Saturation--Inhaled Oxygen Concentration--Shtcwe520.8 kg (295 lb)09/23/2023 1:30 PM MSAYmvozj804.2 cm (5' 7 )09/23/2023 1:30 PM EDTBody Mass Index46. 1:30 PM EDT Plan of Treatment Health MaintenanceDue DateLast DoneCommentsDepression Xchzcb2509/21/2008Varicella vaccine (1 of 2 - 13+ 2-dose series)2009HIV ozisho8409/22/2011Hepatitis C djnkxw2409/21/2014Pap smear2017Flu vaccine (#1)511/, 05/22/2009COVID-19 Vaccine ( season)/04/2022, 07/01/2021 DTaP/Tdap/Td vaccine (7 - Td or Tdap)/, 09/23/2018, 10/28/2001, Additional history existsHepatitis B tkrcmbiDomwrjckl08/21/1997, 1996, 1996Hib iwwufqpBjuakkbnr21/30/1998, 06/02/1997, 02/13/1997, Additional history existsPolio gtstksuKpkrouozp40/18/2002, 06/02/1997, 02/13/1997, Additional history existsHPV vaccine (No Doses Required)Completed Hepatitis A vaccineAged OutNo longer eligible based on patient's age to complete this topicMeningococcal (ACWY) vaccineAged OutNo longer eligible based on patient's age to complete this topicMeningococcal B vaccineAged OutNo longer eligible based on patient's age to complete this topicPneumococcal 0-49 years VaccineAged OutNo longer eligible based on patient's age to complete this topic Insurance Care Teams Team MemberRelationshipSpecialtyStart DateEnd Date Alfonzo Addison MD [address] [place] [address] PCP - GeneralFamily Medicine08/06/23
--- OUTSIDE RECORDS SUMMARY | 2025-05-08 20:10 | XMS_ITS | Clinical Summary ---
Author Organization [facility] Address [address] [place] [address] Care Team Providers Care Lamp Cleaner Street Light Name Role Phone Unavailable Primary Care Provider Unavailabl e Social History Tobacco UseTypesPacks/DayYears UsedDateSmoking Tobacco: Never AssessedPHQ-2 AnswerDate RecordedPHQ-2 kwwke666rea Deprivation IndexAnswerDate RecordedNational Score (1-100), lower number is lower afec382308/05/2024State Score (1-10), lower number is lower nzos313Data from: https://www.neighborhoodatlas.medicine.[facility].edu/. Last address used for [address] [facility]08/05/2024CommentsUnknownSex and Gender InformationValueDate RecordedSex Assigned at BptlsToxdes95/17/2025 10:01 PM EST Legal SxgGejfpc89/11/2024 9:57 AM EDTGender MhbmzinaAcqurt96/17/2025 10:01 PM ESTSexual VxbbgjgfmvoReouubfo98/17/2025 10:01 PM EST Plan of Treatment Health MaintenanceDue DateLast DoneCommentsAnxiety Kwyynsoct48/12/2015Depression Cmoirtiqy69/12/2015HIV Laeluozyq31/12/2015Hepatitis C Xlwmpoyyq50/12/2015 Cervical Cancer Ndweneeyx58/12/2018HPV Vaccine (1 - 3-dose SCDM series) 4Covid-19 Vaccine (3 - 2025-26 season)2021, 07/01/2021 Influenza Vaccine (#1)511DTaP,Tdap,Td Vaccine (7 - Td or Tdap) /, 09/23/2018, 10/28/2001, Additional history existsHepatitis B MtpjaxeMcxytzkep01/21/1997, 1996, 1996 Goals GoalPatient Goal TypeAssociated ProblemsRecent ProgressPatient-Stated?Author Bariatric Surgery Authorization Lighting Designer Care PlanBariatric Surgery Authorization Care CompanionChristina Leary Additional Health Concerns Active ProblemsNoted DateDiagnosed DateBariatric Surgery Authorization Care Hiyixxzxw58/21/2025 Insurance
--- OUTSIDE RECORDS SUMMARY | 2025-05-08 20:10 | XMS_ITS | Encounter Summary ---
Author Organization [facility] Address [address] [facility] [place] [address] Care Team Providers Care Furniture Assembler Name Role Phone Alfonzo Addison MD Primary Care Provider Encounter Details DateTypeDepartmentCare Team (Latest Contact Info)Elinrqlehcf44/26/2025Travel Social History Tobacco UseTypesPacks/DayYears UsedDateSmoking Tobacco: NeverAlcohol UseStandard Drinks/WeekCommentsNot Currently0 (1 standard drink = 0.6 oz pure alcohol) occasionalCommentsNoSex and Gender InformationValueDate RecordedSex Assigned at OgoogShfucl13/06/2024 2:16 PM EDTLegal MooMqctsh64/15/2023 6:47 PM EDTGender NwquevpcRurahp65/06/2024 2:16 PM EDTSexual OrientationStraight 03/18/2024 2:16 PM EDTdocumented as of this encounter Plan of Treatment DateTypeDepartmentCare Team (Latest Contact Info)Fipwqconlmo30/03/2026 10:00 AM ESTProcedure Visit [facility] [address] [place] [phone] Contreras Mock DO [address] [place] [address] documented as of this encounter Goals GoalPatient Goal TypeAssociated ProblemsRecent ProgressPatient-Stated?Author Reminders Care PlanOB RemindersNoOpen Scheduling, Backgrounddocumented as of this encounter Visit Diagnoses Not on filedocumented in this encounter Additional Health Concerns Active ProblemsNoted DateDiagnosed DateOB Yxtodfynr54/30/2023 documented as of this encounter Care Teams Team MemberRelationshipSpecialtyStart DateEnd Date Alfonzo Addison MD [address] [place] [address] PCP - GeneralFamily Medicine12/22/22documented as of this encounter
--- OUTSIDE RECORDS SUMMARY | 2025-05-08 20:10 | XMS_ITS | Encounter Summary ---
Author Organization [facility] Address [address] [facility] [place] [address] Care Team Providers Care Furniture Upholsterer Name Role Phone Alfonzo Addison MD Primary Care Provider [phone] Encounter Details DateTypeDepartmentCare Team (Latest Contact Info)Wwktqjqyjcz57/15/2025Telephone [facility] [address] [place] [address] Contreras Mock DO [address] [place], [place] [id number] Social History Tobacco UseTypesPacks/DayYears UsedDateSmoking Tobacco: NeverAlcohol UseStandard Drinks/WeekCommentsNot Currently0 (1 standard drink = 0.6 oz pure alcohol) occasionalCommentsNoSex and Gender InformationValueDate RecordedSex Assigned at MuuisDimjvf28/06/2024 2:16 PM EDTLegal LmkDohyik15/15/2023 6:47 PM EDTGender AwfhrituEmtfif64/06/2024 2:16 PM EDTSexual OrientationStraight 03/18/2024 2:16 PM [...] Plan of Treatment DateTypeDepartmentCare Team (Latest Contact Info)Kykswdjklyc89/03/2026 10:00 AM ESTProcedure Visit [facility] [address] [place] [phone] Contreras Mock DO [address] [facility] [address] [place] [address] documented as of this encounter Goals GoalPatient Goal TypeAssociated ProblemsRecent ProgressPatient-Stated?Author Reminders Care PlanOB RemindersNoOpen Scheduling, Backgrounddocumented as of this encounter Visit Diagnoses Diagnosis Nausea Nausea alone documented in this encounter Additional Health Concerns Active ProblemsNoted DateDiagnosed DateOB Iysncwica77/30/2023 documented as of this encounter Care Teams Team MemberRelationshipSpecialtyStart DateEnd Date Alfonzo Addison MD [address] [id number] PCP - GeneralFamily Medicine12/22/22documented as of this encounter
--- OUTSIDE RECORDS SUMMARY | 2025-05-08 20:10 | XMS_ITS | Encounter Summary ---
Author Organization [facility] Address [address] [facility] [place] [address] Care Team Providers Care Mail Handler Equipment Operator Name Role Phone Aflonzo Addison MD Primary Care Provider [phone] Encounter Details DateTypeDepartmentCare Team (Latest Contact Info)Arxfwjyasqo69/24/2025linisync Result Encounter [facility] Department Unsolicited Contreras Mock DO [address] [place] [address] Social History Tobacco UseTypesPacks/DayYears UsedDateSmoking Tobacco: NeverAlcohol UseStandard Drinks/WeekCommentsNot Currently0 (1 standard drink = 0.6 oz pure alcohol) occasionalCommentsNoSex and Gender InformationValueDate RecordedSex Assigned at NuldyBfqiyk29/06/2024 2:16 PM EDTLegal OplAbomvp78/15/2023 6:47 PM EDTGender ZqolkehwZkucfn30/06/2024 2:16 PM EDTSexual OrientationStraight 03/18/2024 2:16 PM EDTdocumented as of this encounter Plan of Treatment DateTypeDepartmentCare Team (Latest Contact Info)Hppgyyopkfm38/03/2026 10:00 AM ESTProcedure Visit [facility] [address] [place] [address] Contreras Mock, DO [address] [facility] [address] [place], [place] [phone] documented as of this encounter Goals GoalPatient Goal TypeAssociated ProblemsRecent ProgressPatient-Stated?Author Reminders Care PlanOB RemindersNoOpen Scheduling, Backgrounddocumented as of this encounter Procedures Procedure NamePriorityDate/TimeAssociated DiagnosisCommentsCCF CMP (CMP) (FOR REMOTE [facility] USE)Naanyym3605/05/2025 11:54 AM EDT documented in this encounter Results * [facility] CMP (CMP) (FOR REMOTE [facility] USE) (05/05/2025 11:54 AM EDT)ComponentValueRef RangeTest MethodAnalysis TimePerformed AtPathologist QgvmxssfhMRKQHV812722 - 145 mmol/LTBHPOTASSIUM3.83.5 - 5.1 mmol/EMJAKOYQKQWA10211 - 107 mmol/LTBH CARBON EHOYNGG05.821.0 - 32.0 mmol/LTBHANION GAP17.4GTGTNYJCME2959 - 106 mg/dL TBHBLOOD UREA APYEPVUX66.07.0 - 18.0 mg/dLTBHCREATININE0.840.55 - 1.02 mg/dL TBHTBH EGFR-AF SAUDI ARABIAN>60>=60 mL/min/1.73m 2TBHTBH EGFR-NON AF SAUDI ARABIAN>60 >=60 mL/min/1.73m 2TBHBUN CREATININE RATIO15.6WUGHCGIRWI0.18.5 - 10.1 mg/dLTBH BILIRUBIN TOTAL0.40.2 - 1.0 mg/dLTBHASPARTATE AMINO OBAOPVIYNZW7921 - 37 U/L TBHALANINE HCRCFDRMYMDAQERV6101 - 59 U/LTBHALKALINE JQGVCJJQJCV7347 - 116 U/L TBHTOTAL PROTEIN7.86.4 - 8.2 g/dLTBHALBUMIN LEVEL3.93.4 - 5.0 g/dLTBHGLOBULIN 3.9g/dLTBHALBUMIN GLOBULIN RATIO1.0TBHSpecimen (Source)Anatomical Location / LateralityCollection Method / VolumeCollection TimeReceived Time10/ 11:54 AM EDT1 11:55 AM EDT Narrative [facility] - 05/05/2025 2:02 PM EDT Authorizing ProviderResult TypeResult StatusCorey Emili DOCLINISYNCFinal Result Performing OrganizationAddressCity/State/ZIP CodePhone Number [facility] documented in this encounter Visit Diagnoses Not on filedocumented in this encounter Additional Health Concerns Active ProblemsNoted DateDiagnosed DateOB Jszgdvbij12/30/2023 documented as of this encounter Care Teams Team MemberRelationshipSpecialtyStart DateEnd Date Alfonzo Addison MD [address] [place] [address] PCP - GeneralFamily Medicine12/22/22documented as of this encounter
--- OUTSIDE RECORDS SUMMARY | 2025-05-08 20:10 | XMS_ITS | Clinical Summary ---
Author Organization [facility] Address [address] [place] [facility] [place] [address] Care Team Providers Care Real Estate Instructor Name Role Phone Alfonzo Addison MD Primary Care Provider Allergies Active AllergyReactionsCriticalityNoted PmgzWlphnfneWndsvihxivizMpceb54/19/2014 Other Reaction(s): other Ketorolac HlgqcjdgwczpFwrmf63/19/2014 Other Reaction(s): other, Unknown Other03/24/2018 Sara contrast AuqotfbpLpbdf30/19/2014 Other Reaction(s): other Medications MedicationSigDispense QuantityRefillsLast FilledStart DateEnd DateStatus omeprazole (PriLOSEC) [address] capsule Take 40 mg by mouth in the morning.Active metFORMIN XR (Glucophage-XR) 500 MG 24 hr tablet Indications:Insulin resistanceTake 1 tablet (500 mg) by mouth in the evening. Take with meals Do not crush, chew, or split. 30 tablet ctive phentermine (Adipex-P) 37.5 MG tablet Indications:Encounter for weight managementTake 1 tablet (37.5 mg) by mouth in the morning. Take before meals. 30 tablet 05/30/2024ctive Additional Information Patient not taking.Reported on 05/08/2025 venlafaxine XR (Effexor XR) 75 MG 24 hr capsule Indications:AnxietyTake 1 capsule (75 mg) by mouth Daily Do not crush or chew. 30 capsule 415Active labetalol (Normodyne) 200 MG tablet Take 200 mg by mouth 1 (one) timeActive Drospirenone (Slynd) 4 MG tablet Indications:Pelvic pain in female,Hx of ovarian cyst,PCOS (polycystic ovarian syndrome),Insulin resistanceTake 1 tablet by mouth Daily 84 tablet 307/5Active Tirzepatide-Weight Management (Zepbound) 5 MG/0.5ML solution auto-injector Indications:Prediabetes,BMI 45.0-49.9, [place]Encounter for weight managementInject 0.5 mL under the skin 1 (one) time per week 2 mL 5Active ondansetron ODT (Zofran-ODT) 4 MG disintegrating tablet Indications:NauseaTake 1 tablet (4 mg) by mouth every 6 (six) hours if needed for nausea or vomiting 30 tablet 515Active Tirzepatide (Mounjaro) 2.5 MG/0.5ML solution auto-injector Indications:Prediabetes,Encounter for weight management,PCOS (polycystic ovarian syndrome),Insulin resistanceInject 0.5 mL under the skin 1 (one) time per week 2 mL 5Active Zepbound 5 MG/0.5ML solution auto-injector Indications:Prediabetes,BMI 45.0-49.9, adult [place]Encounter for weight managementInject 0.5 mL under the skin 1 (one) time per week 2 mL Discontinued(Reorder) Active Problems ProblemNoted DateDiagnosed XseuKshucsx33/03/2023ronchial ciuvop8402/12/2023 Eekhqokjgf01/03/2023Essential lttyqqzzjonn59/03/2023ERD (gastroesophageal reflux disease)02/12/20233414Huuqzpxm79/03/2023Migraine yzyngmfi73/03/2023Morbid zegteif5402/12/2023COS (polycystic ovarian syndrome)02/12/2023Seasonal allergic nvipatsp23/03/2023Maternal care for other known or suspected poor growth, unspecified trimester, not applicableor unspecified ([facility])05/28/2021 Encounters DateTypeDepartmentCare GmtjUpzetmhmjif88/27/2025 11:00 AM EDTOffice Visit [facility] [address] [place] [address] Contreras Mock, DO Well woman exam with routine gynecological exam; Prediabetes; Encounter for weight management; PCOS (polycystic ovarian syndrome); Insulin vziqtxfaus85/27/2025amboo flowsheet [facility] [address] [place] [address] Contreras Mcok, DO 05/07/20257993Wesvaw57/24/2025linisync Result Encounter [facility] External Department Unsolicited Contreras Mock, DO 04/26/2025Telephone [facility] [address] [place] [address] Contreras Mock, DO 04/12/2025Telephone [facility] [address] [place] [address] Ely Winn [place] 03/15/2025Telephone [facility] [address] [place] [phone] E[place] 02/21/2025bstract [facility] [address] [place] [phone] Contreras Mock, DO 02/20/2025Refill [facility] [address] [place] [address] Contreras Mock, Prediabetes; BMI 45.0-49.9, adult [place] Encounter for weight dalxpvaplt35/05/2025Telephone [facility] [address] [place] [address] Irene Hassan LPN from Last 3 Months Family History Medical HistoryRelationNameCommentsDiabetesFatherHeart diseaseFather HyperlipidemiaFatherHypertensionFatherMental illnessFatherStrokeFather HypertensionMaternal GrandmotherHypertensionMotherStrokeMotherCancerPaternal GrandfatherRelationNameStatusCommentsBrother1 brotherFatherMaternal Grandmother MotherPaternal GrandfatherSister1 sister Social History Tobacco UseTypesPacks/DayYears UsedDateSmoking Tobacco: Never Tobacco Cessation:Counseling Given: Not Answered Alcohol UseStandard Drinks/WeekCommentsNot Currently0 (1 standard drink = 0.6 oz pure alcohol)occasionalCommentsNoSex and Gender InformationValueDate RecordedSex Assigned at MgzuzGggtte60/06/2024 2:16 PM EDTLegal SexFemale 09/24/2022 6:47 PM EDTGender KyqptktkTrvvwc53/06/2024 2:16 PM EDTSexual EfpwvjftrrkQsdetrvi17/06/2024 2:16 PM EDT Last Filed Vital Signs Vital SignReadingTime TakenCommentsBlood Xxkaggcd489/8610 11:15 AM EDT Pulse--Temperature--Respiratory Rate--Oxygen Saturation--Inhaled Oxygen Concentration--Oaxpor677 kg (289 lb)05/08/2025 11:15 AM KCMMjqecs495.2 cm (5' 7 )01/19/2025 9:19 AM EDTBody Mass Index45.2607 9:19 AM EDT Plan of Treatment DateTypeDepartmentCare Team (Latest Contact Info)Tgkwizhanbw99/03/2026 10:00 AM ESTProcedure Visit [facility] [address] [place] [phone] Contreras Mock, [address] [place] [address] Health MaintenanceDue DateLast DoneCommentsMMR Vaccines (1 of 1 - Standard series)1997DTaP/Tdap/Td Vaccines (1 - Tdap)09/22/2003Varicella Vaccines (1 of 2 - 13+ 2-dose series)2009Hepatitis B Vaccines (1 of 3 - 19+ 3-dose series)09/22/2015HPV Vaccines (1 - 3-dose SCDM series)4COVID-19 Vaccine (3 - 2024- season)501/04/2022, 07/01/2021Influenza Vaccine (#1) /07/2022, 06/05/2021HIB VaccinesAged OutNo longer eligible based on patient's age to complete this topicHepatitis A VaccinesAged OutNo longer eligible based on patient's age to complete this topicIPV VaccinesAged OutNo longer eligible based on patient's age to complete this topicMeningococcal B VaccineAged OutNo longer eligible based on patient's age to complete this topic Meningococcal VaccineAged OutNo longer eligible based on patient's age to complete this topicPneumococcal Vaccine: Pediatrics (0 to 5 Years) and At-Risk Patients (6 to 64 Years)Aged OutNo longer eligible based on patient's age to complete this topicRotavirus VaccinesAged OutNo longer eligible based on patient's age to complete this topic Goals GoalPatient Goal TypeAssociated ProblemsRecent ProgressPatient-Stated?Author Reminders Care PlanOB RemindersNoOpen Scheduling, Background Procedures Procedure NamePriorityDate/TimeAssociated DiagnosisCommentsCCF CMP (CMP) (FOR REMOTE [facility] USE)Kuicjow2505/05/2025 11:54 AM EDT from Last 3 Months Results * [facility] CMP (CMP) (FOR REMOTE C USE) (05/05/2025 11:54 AM EDT)ComponentValueRef RangeTest MethodAnalysis TimePerformed AtPathologist XjzdljrffHXFMKA893531 - 145 mmol/LTBHPOTASSIUM3.83.5 - 5.1 mmol/LUJDKTRRSHDJ64485 - 107 mmol/LTBH CARBON MOFYFLO09.821.0 - 32.0 mmol/LTBHANION GAP17.0XRDKOUTNQX0238 - 106 mg/dL TBHBLOOD UREA TYGFFDYQ05.07.0 - 18.0 mg/dLTBHCREATININE0.840.55 - 1.02 mg/dL TBHTBH EGFR-AF MARSHALLESE>60>=60 mL/min/1.73m 2TBHTBH EGFR-NON AF MARSHALLESE>60 >=60 mL/min/1.73m 2TBHBUN CREATININE RATIO15.3TGTKXCBFAJ0.18.5 - 10.1 mg/dLTBH BILIRUBIN TOTAL0.40.2 - 1.0 mg/dLTBHASPARTATE AMINO DDGBQTCOUGS3424 - 37 U/L TBHALANINE OFFZUJPGDNDDQRSA5031 - 59 U/LTBHALKALINE ZCTRPJQAKEI4054 - 116 U/L TBHTOTAL PROTEIN7.86.4 - 8.2 g/dLTBHALBUMIN LEVEL3.93.4 - 5.0 g/dLTBHGLOBULIN 3.9g/dLTBHALBUMIN GLOBULIN RATIO1.0TBHSpecimen (Source)Anatomical Location / LateralityCollection Method / VolumeCollection TimeReceived Time05/05/2025 11:54 AM EDT1 11:55 AM EDT Narrative [facility] - 05/05/2025 2:02 PM EDT Authorizing ProviderResult TypeResult StatusCorey Emili DOCLINISYNCFinal Result Performing OrganizationAddressCity/State/ZIP CodePhone Number CLIN[facility] from Last 3 Months Additional Health Concerns Active ProblemsNoted DateDiagnosed DateOB Ilpoxyzxn45/30/2023 Insurance Care Teams Team MemberRelationshipSpecialtyStart DateEnd Date Alfonzo Addison MD [address] [place] [address] PCP - GeneralFamily Medicine12/22/22
[2025-05-11 15:08] LABS: Age Gdln ACOG Testing Note (.); IGP, rfx Aptima HPV ASCU Note (.)
== END 2025-05-08 20:06 | disposition home or self-care (01) ==
LOC: LAB 20:05
PROVIDERS: PCP Nurse Practitioner Family; Visit Provider Obstetrics & Gynecology
DX: Z01.419 Encounter for gynecological examination (general) (routine) without abnormal findings (principal)
CPT/HCPCS: 88175